=== PATIENT | female | born 1945 | race Caucasian/White ===

== ENCOUNTER → 2019-06-12 09:32 | Outpatient (CLI) | payer OTHER, SELFPAY ==
[2019-06-12 12:17] LABS: Hematocrit 32.5 % (37-47); Hemoglobin 9.9 g/dL (12.0-15.0); Mean Corp Hgb Conc 30.5 g/dL (32-36); Mean Corpuscular Volume 85.3 fL (81-99); Mean Platelet Vol. 10.5 fl (6.2-12.0); Platelet Count 338 K/mm3 (150-450); RBC Distribution Width CV 15.2 % (11.6-14.6); RBC Distribution Width SD 47.4 fl (35.1-43.9); Red Blood Count 3.81 M/mm3 (4.2-5.4); White Blood Count 6.1 K/mm3 (4.4-11.0)
[2019-06-12 12:29] LABS: Ferritin 7 ng/mL (8-252); T4 Free Direct 0.98 ng/dL (0.76-1.46); Thyroid Stim Hormone (TSH) 2.31 uIU/mL (0.358-3.74)
== END ==
PROVIDERS: Family Provider Family Medicine; PCP Family Medicine; Referring Provider Dermatology; Visit Provider Dermatology
DX: L65.0 Telogen effluvium (principal); L73.8 Other specified follicular disorders
CPT/HCPCS: 36415; 82728; 84439; 84443; 85027

== ENCOUNTER → 2020-11-30 11:39 | Outpatient (CLI) | payer MEDICARE, MEDICAID, SELFPAY ==
--- NOTE | 2020-11-30 11:49 | BI_ITS ---
MAMMOGRAPHY - BILATERAL SCREENING 3-D TOMOSYNTHESIS REASON FOR EXAM: Female, 75 years old. SCREENING PERTINENT HISTORY: No significant family history. TECHNIQUE: 2-D mammograms and 3-D Tomosynthesis of the breast (s) were performed. CAD was performed. COMPARISON: 2018 FINDINGS: The breast composition is composed of scattered fibroglandular density. Scattered benign calcifications are seen. No dense spiculated masses or suspicious microcalcifications are identified. No architectural distortion is identified. There is no skin thickening or retraction. There has been no significant change since the prior study. BI/SCRN MAMM (CAD)W/DAYANNA BILAT IMPRESSION: No mammographic signs of malignancy. Routine yearly mammograms recommended. ASSESSMENT CATEGORY: BIRADS Category 1: Negative. A letter regarding these results will be sent to the patient by the facility within 30 days. FOLLOW UP RECOMMENDATION: Yearly follow up mammogram recommended. (A) Approximately 10% of breast cancers are not detected by mammography. A normal mammogram should not delay biopsy of a clinically suspicious abnormality. Electronically Signed: Eladio Cordon MD at 12:59 EDT , Service support ,
== END ==
PROVIDERS: PCP Family Medicine; Referring Provider Internal Medicine; Visit Provider Internal Medicine
DX: Z12.31 Encounter for screening mammogram for malignant neoplasm of breast (principal)
CPT/HCPCS: 77063; 77067

== ENCOUNTER → 2021-03-23 05:00 | Outpatient (REF) | payer MEDICARE, MEDICAID, SELFPAY ==
[2021-03-23 07:43] LABS: Anion Gap 4 (5-15); BUN 17 mg/dL (7-18); BUN/Creat Ratio 25.7 RATIO (10-20); Calcium,Total 10.8 mg/dL (8.5-10.1); Chloride 110 mmol/L (98-107); Creatinine, Serum 0.66 mg/dL (0.55-1.02); EST Glomerular Filtration Rate 93 mL/min (>60); Est Glom Filt Rate - Afr Amer 112 mL/min (>60); Glucose 113 mg/dL (74-106); Potassium 4.1 mmol/L (3.5-5.1); Sodium Level 142 mmol/L (136-145)
== END ==
LOC: OLS.SWAL 05:00
PROVIDERS: PCP Family Medicine; Visit Provider Internal Medicine
DX: Z79.899 Other long term (current) drug therapy (principal)
CPT/HCPCS: 36415; 80048

== ENCOUNTER → 2021-04-01 05:00 | Outpatient (REF) | payer MEDICARE, MEDICAID, SELFPAY ==
[2021-04-01 07:55] LABS: Anion Gap 5 (5-15); BUN 29 mg/dL (7-18); BUN/Creat Ratio 27.4 RATIO (10-20); Calcium,Total 11.1 mg/dL (8.5-10.1); Chloride 106 mmol/L (98-107); Creatinine, Serum 1.06 mg/dL (0.55-1.02); EST Glomerular Filtration Rate 54 mL/min (>60); Est Glom Filt Rate - Afr Amer 65 mL/min (>60); Glucose 113 mg/dL (74-106); Potassium 3.9 mmol/L (3.5-5.1); Sodium Level 140 mmol/L (136-145)
== END ==
LOC: OLS.SWAL 05:00
PROVIDERS: PCP Family Medicine; Referring Provider Internal Medicine; Visit Provider Internal Medicine
DX: R60.9 Edema, unspecified (principal)
CPT/HCPCS: 36415; 80048

== ENCOUNTER → 2021-04-08 05:00 | Outpatient (REF) | payer MEDICARE, OTHER, SELFPAY ==
[2021-04-08 08:47] LABS: Anion Gap 2 (5-15); BUN 24 mg/dL (7-18); BUN/Creat Ratio 23.5 RATIO (10-20); Calcium,Total 10.9 mg/dL (8.5-10.1); Chloride 109 mmol/L (98-107); Creatinine, Serum 1.02 mg/dL (0.55-1.02); EST Glomerular Filtration Rate 56 mL/min (>60); Est Glom Filt Rate - Afr Amer 68 mL/min (>60); Glucose 98 mg/dL (74-106); Potassium 4.4 mmol/L (3.5-5.1); Sodium Level 142 mmol/L (136-145)
== END ==
LOC: OLS.SWAL 05:00
PROVIDERS: PCP Family Medicine; Visit Provider Internal Medicine
DX: Z79.899 Other long term (current) drug therapy (principal)
CPT/HCPCS: 36415; 80048

== ENCOUNTER → 2021-05-24 05:00 | Outpatient (REF) | payer MEDICARE, MEDICAID, SELFPAY ==
[2021-05-24 08:28] LABS: Mucous, Urine 0 SEEN /hpf (<or=2+); Red Blood Cells-Urine 0 SEEN /hpf (0-5)
[2021-05-24 08:45] LABS: Hematocrit 43.5 % (37-47); Hemoglobin 13.7 g/dL (12.0-15.0); Mean Corp Hgb Conc 31.5 g/dL (32-36); Mean Corpuscular Hgb 29.8 pg (27.0-32.0); Mean Corpuscular Volume 94.8 fL (81-99); Mean Platelet Vol. 10.8 fl (6.2-12.0); Platelet Count 281 K/mm3 (150-450); RBC Distribution Width CV 14.9 % (11.6-14.6); RBC Distribution Width SD 51.7 fl (35.1-43.9); Red Blood Count 4.59 M/mm3 (4.2-5.4); White Blood Count 5.7 K/mm3 (4.4-11.0)
[2021-05-24 08:48] LABS: Color, Urine Yellow (Yellow); Glucose, Dipstick Normal (Normal); Ketone-Dipstick Negative (Negative); Leukocyte Esterase-Dipstick 500 /ul (Negative); Nitrite-Dipstick Negative (Negative); Occult Blood-Urine Negative /ul (Negative); Protein-Dipstick Negative (Negative); Urine Bilirubin Dipstick Negative (Negative); Urine Clarity Sl. Cloudy (Clear); Urine Urobilinogen Normal (Normal)
[2021-05-24 08:54] LABS: Bacteria 1+ /hpf (None Seen); Squamous Epithelial Cells - UA 0-5 SEEN /hpf (5-10); White Blood Cells 5-10 SEEN /hpf (0-5)
[2021-05-24 09:08] LABS: Anion Gap 11 (5-15); BUN 31 mg/dL (7-18); BUN/Creat Ratio 26.5 RATIO (10-20); Calcium,Total 10.8 mg/dL (8.5-10.1); Chloride 104 mmol/L (98-107); Creatinine, Serum 1.17 mg/dL (0.55-1.02); EST Glomerular Filtration Rate 48 mL/min (>60); Est Glom Filt Rate - Afr Amer 58 mL/min (>60); Glucose 109 mg/dL (74-106); Potassium 3.9 mmol/L (3.5-5.1); Sodium Level 142 mmol/L (136-145)
== END ==
LOC: OLS.SWAL 05:00
PROVIDERS: PCP Family Medicine; Visit Provider Internal Medicine
DX: I10 Essential (primary) hypertension (principal); E78.5 Hyperlipidemia, unspecified; D64.9 Anemia, unspecified; R46.89 Other symptoms and signs involving appearance and behavior; Z79.899 Other long term (current) drug therapy
CPT/HCPCS: 36415; 80048; 81001; 85027; 87086; 87088

== ENCOUNTER → 2021-06-15 05:00 | Outpatient (REF) | payer MEDICARE, OTHER, SELFPAY ==
[2021-06-15 09:05] LABS: Uric Acid 8.2 mg/dL (2.6-6.0)
== END ==
LOC: OLS.SWAL 05:00
PROVIDERS: PCP Family Medicine; Visit Provider Internal Medicine
DX: M10.9 Gout, unspecified (principal)
CPT/HCPCS: 36415; 84550

== ENCOUNTER → 2021-07-05 05:00 | Outpatient (REF) | payer MEDICARE, OTHER, SELFPAY ==
[2021-07-05 07:23] LABS: Hematocrit 40.2 % (37-47); Hemoglobin 12.7 g/dL (12.0-15.0); Mean Corp Hgb Conc 31.6 g/dL (32-36); Mean Corpuscular Hgb 30.1 pg (27.0-32.0); Mean Corpuscular Volume 95.3 fL (81-99); Mean Platelet Vol. 10.3 fl (6.2-12.0); Platelet Count 329 K/mm3 (150-450); RBC Distribution Width CV 14.2 % (11.6-14.6); RBC Distribution Width SD 49.5 fl (35.1-43.9); Red Blood Count 4.22 M/mm3 (4.2-5.4); White Blood Count 9.4 K/mm3 (4.4-11.0)
[2021-07-05 07:42] LABS: ALB/GLOB Ratio 0.7 RATIO (0.9-2.4); AST(SGOT) 14 U/L (15-37); Alanine Aminotransfer ALT/SGPT 20 U/L (13-56); Albumin, Serum 3.1 g/dL (3.2-5.0); Alkaline Phosphatase 41 U/L (45-117); Anion Gap 5 (5-15); BUN 32 mg/dL (7-18); BUN/Creat Ratio 25.4 RATIO (10-20); Bilirubin, Direct 0.21 mg/dL (0.00-0.30); Calcium,Total 10.9 mg/dL (8.5-10.1); Chloride 109 mmol/L (98-107); Creatinine, Serum 1.26 mg/dL (0.55-1.02); EST Glomerular Filtration Rate 44 mL/min (>60); Est Glom Filt Rate - Afr Amer 53 mL/min (>60); Globulin 4.6 g/dL (2.2-4.2); Glucose 87 mg/dL (74-106); Potassium 4.2 mmol/L (3.5-5.1); Protein, Total 7.7 g/dL (6.4-8.2); Sodium Level 139 mmol/L (136-145)
== END ==
LOC: OLS.SWAL 05:00
PROVIDERS: PCP Family Medicine; Visit Provider Internal Medicine
DX: U07.1 COVID-19 (principal)
CPT/HCPCS: 36415; 80053; 82248; 85027; 86140

== ENCOUNTER → 2021-07-19 05:00 | Outpatient (REF) | payer MEDICARE, MEDICAID, SELFPAY ==
[2021-07-19 10:03] LABS: Anion Gap 4 (5-15); BUN 28 mg/dL (7-18); BUN/Creat Ratio 23.3 RATIO (10-20); Calcium,Total 11.1 mg/dL (8.5-10.1); Chloride 109 mmol/L (98-107); Cholesterol 151 mg/dL (200); EST Glomerular Filtration Rate 47 mL/min (>60); Est Glom Filt Rate - Afr Amer 56 mL/min (>60); Glucose 108 mg/dL (74-106); High Density Lipoprotein 65 mg/dL; Magnesium 2.7 mg/dL (1.6-2.6); Potassium 3.9 mmol/L (3.5-5.1); Sodium Level 141 mmol/L (136-145); Triglycerides 109 mg/dL; Very Low Density Lipoprotein 22 mg/dL (5-40)
== END ==
LOC: OLS.SWAL 05:00
PROVIDERS: PCP Family Medicine; Visit Provider Internal Medicine
DX: I10 Essential (primary) hypertension (principal); E78.5 Hyperlipidemia, unspecified
CPT/HCPCS: 36415; 80048; 80061; 83735

== ENCOUNTER → 2021-07-25 05:00 | Outpatient (REF) | payer MEDICARE, MEDICAID, SELFPAY | LOC: OLS.SWAL 05:00 | PROVIDERS: PCP Family Medicine; Visit Provider Internal Medicine | DX: E78.5 Hyperlipidemia, unspecified (principal); I10 Essential (primary) hypertension | CPT/HCPCS: 36415; 82330; 83970 ==

== ENCOUNTER 2021-08-07 13:45 | Emergency (ER) | payer MEDICARE, MEDICAID, SELFPAY ==
[2021-08-07] VITALS (7 sets, daily range): BP systolic 124–147; BP diastolic 59–88; PULSE 71–90; RESP 16–27; TEMP 36.1–36.6; O2SAT 93–95; BMI 36.0
--- NOTE | 2021-08-07 14:29 | RAD_ITS ---
INDICATION: fall EXAMINATION/TECHNIQUE: X-RAY - RIGHT XR Shoulder Min 2 Views 2 VIEWS COMPARISON: Views of the humerus on the same date. FINDINGS: SOFT TISSUES: No soft tissue swelling or gas. No radiopaque foreign body. BONES/JOINTS: There is an anterior dislocation glenohumeral joint, no fractures noted. There is mild deformity of the greater tubercle which may represent a Hill-Sachs deformity. Normal appearance of the AC joint and visualized RIGHT rib cage. RAD/Shoulder min 2 Views IMPRESSION: Anterior dislocation of glenohumeral joint, Hill-Sachs deformity is suspected. No other focal bony abnormality noted. Electronically Signed: Ganesh Gramajo MD at 16:07 EST Tel , Service support ,
--- NOTE | 2021-08-07 14:29 | RAD_ITS ---
INDICATION: injury EXAMINATION/TECHNIQUE: X-RAY - RIGHT XR Humerus Min 2 Views 2 VIEWS COMPARISON: None. FINDINGS: SOFT TISSUES: No soft tissue swelling or gas. No radiopaque foreign body. BONES/JOINTS: There is an anterior dislocation of the glenohumeral joint. No bony fractures noted. Slight rib cage is intact. RAD/Humerus min 2 Views IMPRESSION: Anterior glenohumeral dislocation without evidence of fracture. Remaining humerus has normal appearance. Electronically Signed: Ganesh Grmaajo MD at 16:05 EST Tel , Service support ,
--- NOTE | 2021-08-07 14:29 | CT_ITS ---
STUDY: CT BRAIN WITHOUT CONTRAST REASON FOR EXAM: Female, 76 years old. fall RADIATION DOSAGE (If Supplied By Facility): CTDIvol = ( 44.99 ) mGy, DLP = ( 796.11 ) mGycm TECHNIQUE: Transaxial CT imaging of the brain was performed without administration of intravenous contrast material. Individualized dose optimization techniques were used for this CT. COMPARISON: None. FINDINGS: There is cerebral atrophy with widening of the extra-axial spaces and ventricular dilatation. There are areas of decreased attenuation within the white matter tracts of the supratentorial brain, consistent with microvascular disease changes. There is no intracranial hemorrhage. There are no findings of an acute ischemic infarction. Normal soft tissue structures. Normal visualized paranasal sinuses. CT/Brain/Head without Contrast IMPRESSION: Chronic involutional changes of the brain. Electronically Signed: Theresa Londono MD at 15:11 EST Tel , Service support ,
--- NOTE | 2021-08-07 14:31 | EDS_ITS ---
HPI History of Present Illness Chief Complaint: Fall Detail of Chief Complaint: With injury to right upper arm Informant: patient Narrative Narrative: Patient presents to the emergency department via EMS from assisted living facility after sustaining a fall today. Patient states that she normally walks with a walker. She is not exactly sure if she tripped or what happened. Patient injured her right arm. She is not sure if she hit her head. There was no loss of consciousness. Patient denies neck pain or chest pain or abdominal pain. She denies recent illness. Patient is right-hand dominant. [facility] Medical History (Updated 08/07/21 @ 16:[address] Isha Dunlap, DO) Depression GERD (gastroesophageal reflux disease) Hyperlipidemia Hypertension Home Medications alendronate 70 mg PO QWEEK 08/07/21 [History Last Taken Unknown] allopurinol 200 mg PO DAILY 08/07/21 [History Last Taken Unknown] amlodipine 5 mg PO BID 08/07/21 [History Last Taken Unknown] bupropion HCl 200 mg PO BID 08/07/21 [History Last Taken Unknown] clonazepam 0.5 mg PO Q8H PRN 08/07/21 [History Last Taken Unknown] ferrous sulfate mg PO 08/07/21 [History Last Taken Unknown] fluticasone propionate 1 spray INTRANASAL DAILY 08/07/21 [History Last Taken Unknown] loratadine 10 mg PO DAILY 08/07/21 [History Last Taken Unknown] losartan 100 mg PO DAILY 08/07/21 [History Last Taken Unknown] omeprazole 20 mg PO DAILY 08/07/21 [History Last Taken Unknown] potassium chloride [Klor-Con M10] 10 meq PO DAILY 08/07/21 [History Last Taken Unknown] pravastatin 20 mg PO QHS 08/07/21 [History Last Taken Unknown] rivaroxaban [Xarelto] 20 mg PO QHS 08/07/21 [History Last Taken Unknown] sertraline 100 mg PO DAILY 08/07/21 [History Last Taken Unknown] torsemide 40 mg PO BID 08/07/21 [History Last Taken Unknown] Allergy/AdvReac Type Severity Reaction Status Date / Time No Known Allergies Allergy Verified 08/07/21 13:52 Social History Smoking Status: Former smoker ROS ROS ED ROS Narrative Fall Constitutional Constitutional ED: Reports systems reviewed and no addt'l complaints, except as documented; Denies body ache(s), change in weight or chills Eyes Eyes: Denies acute decrease in peripheral vision, change in vision, double vision or loss of vision ENT ENT ED: Reports none; Denies ear pain, lip swelling, loss taste/smell, neck pain, otalgia or sore throat Cardiovascular Cardiovascular: Reports none; Denies abdominal pain, chest pain with activity, leg edema, lightheadedness, palpitations, rapid heart rate or syncope Respiratory/Chest Respiratory/Chest: Reports none; Denies change in mental status, dry cough, dyspnea, hemoptysis, shortness of breath at rest or shortness of breath with exertion Gastrointestinal Gastrointestinal: Reports none; Denies abdominal pain, change in stool character, diarrhea, hematemesis, hematochezia, melena, rectal bleeding or vomiting Genitourinary Genitourinary ED: Reports none; Denies abdominal discomfort, anuria, dysuria, genital pain or polyuria Musculoskeletal Musculoskeletal: Reports none and other Details: Shoulder pain/injury ; Denies arthralgias, back pain, difficulty walking, extremity pain, muscle weakness or myalgias Integumentary Reports none; Denies abscess or rash Neurologic Neurologic: Reports none; Denies abnormal gait, confusion, focal weakness, frequent falls, headache(s), loss of vision, numbness, paresthesias, radicular pain, vertigo or weakness Psychiatric Psychiatric: Reports systems reviewed and no addt'l complaints, except as docum ented and none; Denies behavioral changes, confusion, difficulty concentrating, hallucinations, suicidal ideation, tactile hallucinations or visual hallucinations Endocrine Endocrinology: Denies none, cold intolerance, excessive sweating, fatigue or heat intolerance Hematologic/Lymphatic Hematologic/Lymphatic: Reports none; Denies anemia, easy bleeding or easy bruising Allergic/Immunologic Allergic/Immunologic ED: Denies as per HPI, none, lip swelling, mouth swelling, throat swelling, tongue swelling or hives EXAM Physical Exam Const Vital Signs: 08/07/21 13:47 08/07/21 16:29 08/07/21 16:41 Temperature 98 F Temperature Source Oral Pulse Rate 71 85 Pulse Rate [1 (Initial Baseline)] 87 Pulse Rate [5] 86 Respiratory Rate 18 20 H Respiratory Rate [1 (Initial Baseline)] 16 Respiratory Rate [5] 27 H Blood Pressure 139/62 H 134/88 H Blood Pressure [1 (Initial Baseline)] 147/60 H Blood Pressure [5] 124/59 H Blood Pressure Mean 87 Pulse Ox 94 94 Oxygen Delivery Method Room Air Nasal Cannula Oxygen Delivery Method [1 (Initial Baseline)] Room Air Oxygen Delivery Method [5] Nasal Cannula Oxygen Flow Rate (L/min) 2 08/07/21 16:46 08/07/21 16:52 Temperature Temperature Source Pulse Rate 85 87 Pulse Rate [1 (Initial Baseline)] Pulse Rate [5] Respiratory Rate 24 H 24 H Respiratory Rate [1 (Initial Baseline)] Respiratory Rate [5] Blood Pressure 137/65 H 139/65 H Blood Pressure [1 (Initial Baseline)] Blood Pressure [5] Blood Pressure Mean Pulse Ox 94 93 Oxygen Delivery Method Nasal Cannula Nasal Cannula Oxygen Delivery Method [1 (Initial Baseline)] Oxygen Delivery Method [5] Oxygen Flow Rate (L/min) 2 2 Positive well nourished and well developed General Appearance ED: well developed and NAD HEENT Reports TM's clear and moist mucous membranes HEENT Narrative: No external evidence of trauma to her head normocephalic and atraumatic; Negative for trauma or tenderness Tympanic Membrane ED: Yes TM's clear Eyes PERRL and EOMs intact bilaterally General Eye ED: Negative for pale conjunctiva or scleral icterus Neck no lymphadenopathy, supple and no JVD General: Negative for tenderness Chest Wall inspection of chest normal and palpation of chest normal Chest: Negative for tenderness Resp normal respiratory effort and clear to auscultation bilaterally Effort and Inspection: Negative for respiratory distress or pain with movement Auscultation: Negative for rhonchi, wheezes or diminished lung sounds Cardio regular rate, regular rhythm, S1 normal heart sound, S2 normal heart sound and no murmurs Peripheral Pulses: pulses 2+ throughout GI normal to inspection, nondistended, normoactive bowel sounds, soft to palpation, non-tender, non-distended and no masses Back/Spine no CVA tenderness and no thoracic nor lumbar tenderness Extremity Extremity Narrative: For motion of the right shoulder reveals diffuse tenderness at the glenohumeral joint with suspected sulcus sign. She has limited range of motion at the glenohumeral joint secondary to pain. She is neurovascular intact distally. No pain at the elbow. General Extremety ED: Negative for edema General Extremity: Negative for edema Neuro oriented x3, CN's II-XII intact bilaterally, no sensory deficits noted and gait normal Sensorium / Orientation: awake, alert, oriented to person, oriented to place and oriented to time Motor Exam: strength 5/5 throughout and strength abnormal Psych mental status grossly normal Skin no rashes or lesions noted and no wounds PROC Procedures Other Procedures Procedure(s): Right shoulder procedural sedation for closed reduction-patient was given propofol total of 130 mg IV. Initially a timeout was performed. Using gentle traction I was able to easily reduce her shoulder. Patient was placed in a sling. Patient tolerated procedure well. MDM MDM MDM Narrative Medical decision making narrative: Post reduction x-rays were obtained and showed good reduction of glenohumeral joint on the right. No fractures noted. Patient will be placed in a sling. She is to follow-up with orthopedics occupational medicine officer within next 3 to 5 days. Radiography Diagnostic Testing: Clinical Impression(s) from Imaging Studies Brain CT 08/07/21 14:29 IMPRESSION: Chronic involutional changes of the brain. Electronically Signed: Theresa Londono MD at 15:11 EST Tel , Service support , Humerus X-Ray 08/07/21 14:29 IMPRESSION: Anterior glenohumeral dislocation without evidence of fracture. Remaining humerus has normal appearance. Electronically Signed: Ganesh Gramajo MD at 16:05 EST Tel , Service support , Shoulder X-Ray 08/07/21 14:29 IMPRESSION: Anterior dislocation of glenohumeral joint, Hill-Sachs deformity is suspected. No other focal bony abnormality noted. Electronically Signed: Ganesh Gramajo MD at 16:07 EST Tel , Service support , Shoulder X-Ray 08/07/21 16:44 IMPRESSION: 1. Interval closed reduction with normal alignment maintained. 2. Hill-Sachs deformity suspected. 3. Subacromial space narrowing also noted which can contribute to rotator cuff impingement. Electronically Signed: Ganesh Gramajo MD at 17:02 EST Tel , Service support , 2 view x-rays of right shoulder obtained showed an anterior shoulder dislocation on my interpretation. Radiology in agreement. 2 view x-rays of right humerus also obtained interpreted by myself as no acute fractures but did show a right anterior shoulder dislocation. Radiology in agreement as well. 2 view post reduction x-rays obtained of the right shoulder showed good reduction of the glenohumeral joint on my interpretation. Radiologist agreed that there was good reduction however he thought there may be some evidence of rotator cuff im pingement and question Hill-Sachs deformity. Discharge Plan Triage Chief Complaint: Fall ED Provider: Isha Dunlap Dx/Rx/DC Orders Clinical Impression: Fall, Anterior dislocation of right shoulder Instructions: ED Dislocation: Shoulder (Reduced), ED Mechanical Fall, ED Sling Prescriptions: No Action torsemide 20 mg tablet 40 mg PO BID RF: 0 alendronate 70 mg tablet 70 mg PO QWEEK RF: 0 clonazepam 0.5 mg tablet 0.5 mg PO Q8H PRN (Reason: Anxiety) RF: 0 sertraline 100 mg tablet 100 mg PO DAILY RF: 0 amlodipine 5 mg tablet 5 mg PO BID RF: 0 allopurinol 100 mg tablet 200 mg PO DAILY RF: 0 omeprazole 20 mg capsule,delayed release(DR/EC) 20 mg PO DAILY RF: 0 pravastatin 20 mg tablet 20 mg PO QHS RF: 0 ferrous sulfate 325 mg (65 mg iron) tablet,delayed release (DR/EC) PO RF: 0 losartan 100 mg tablet 100 mg PO DAILY RF: 0 fluticasone propionate 50 mcg/actuation spray,suspension 1 spray INTRANASAL DAILY RF: 0 loratadine 10 mg tablet 10 mg PO DAILY RF: 0 bupropion HCl 200 mg tablet sustained-release 12 hr 200 mg PO BID RF: 0 potassium chloride [Klor-Con M10] 10 mEq tablet,ER particles/crystals 10 meq PO DAILY RF: 0 Xarelto 20 mg tablet 20 mg PO QHS RF: 0 Primary Care Provider: Luan King Referrals: Larry Currie MD [STAFF PHYSICIAN] - 3-5 Days Luan King MD [Primary Care Provider] - Disposition Disposition: Home, Self Care
--- NOTE | 2021-08-07 16:44 | RAD_ITS ---
INDICATION: post reduction EXAMINATION/TECHNIQUE: X-RAY - RIGHT XR Shoulder Min 2 Views 3 VIEWS COMPARISON: Earlier same day FINDINGS: SOFT TISSUES: No soft tissue swelling or gas. No radiopaque foreign body. BONES/JOINTS: Interval closed reduction with normal alignment noted. Minimal deformity of the humeral head suspicious of Hill-Sachs deformity. No other focal bony abnormalities noted. AC joint has normal appearance. There is narrowing the subacromial space. RAD/Shoulder min 2 Views IMPRESSION: 1. Interval closed reduction with normal alignment maintained. 2. Hill-Sachs deformity suspected. 3. Subacromial space narrowing also noted which can contribute to rotator cuff impingement. Electronically Signed: Ganesh Gramajo MD at 17:02 EST Tel , Service support ,
[2021-08-07] MEDS: Propofol 200 MG/20 ML Vial IV BOLUS (16:50)
--- NOTE | 2021-08-07 18:03 | ED.RN ---
Message left on Mahesh Herrera nurse line re: pt dx/treatment and that pt was on her way back to facility.
== END 2021-08-07 18:08 | disposition home or self-care (01) ==
PROVIDERS: Emergency Provider Emergency Medicine; PCP Family Medicine
DX: S43.014A Anterior dislocation of right humerus, initial encounter (principal); W19.XXXA Unspecified fall, initial encounter; Y92.9 Unspecified place or not applicable; Y99.9 Unspecified external cause status; F32.A Depression, unspecified; K21.9 Gastro-esophageal reflux disease without esophagitis; E78.5 Hyperlipidemia, unspecified; I10 Essential (primary) hypertension; Z87.891 Personal history of nicotine dependence; Z79.01 Long term (current) use of anticoagulants; Z79.899 Other long term (current) drug therapy
CPT/HCPCS: 70450; 73030; 73060; 99285; J7030; A4216

== ENCOUNTER → 2021-08-30 07:50 | Outpatient (REF) | payer MEDICARE, MEDICAID, SELFPAY ==
[2021-08-30 09:30] LABS: Anion Gap 8 (5-15); BUN 34 mg/dL (7-18); BUN/Creat Ratio 31.8 RATIO (10-20); Calcium,Total 10.6 mg/dL (8.5-10.1); Chloride 105 mmol/L (98-107); Creatinine, Serum 1.07 mg/dL (0.55-1.02); EST Glomerular Filtration Rate 53 mL/min (>60); Est Glom Filt Rate - Afr Amer 64 mL/min (>60); Glucose 100 mg/dL (74-106); Magnesium 2.7 mg/dL (1.6-2.6); Potassium 3.7 mmol/L (3.5-5.1); Sodium Level 141 mmol/L (136-145)
== END ==
LOC: OLS.SW300 07:50
PROVIDERS: PCP Family Medicine; Visit Provider Internal Medicine
DX: I10 Essential (primary) hypertension (principal); D64.9 Anemia, unspecified
CPT/HCPCS: 36415; 80048; 83735

== ENCOUNTER → 2021-08-31 05:00 | Outpatient (REF) | payer MEDICARE, MEDICAID, SELFPAY ==
[2021-08-31 10:06] LABS: PTHIN 84.8 pg/mL (18.4-80.1)
== END ==
LOC: OLS.SW300 05:00
PROVIDERS: PCP Family Medicine; Visit Provider Internal Medicine
DX: I10 Essential (primary) hypertension (principal); E78.5 Hyperlipidemia, unspecified
CPT/HCPCS: 36415; 82330; 83970

== ENCOUNTER → 2021-09-26 04:00 | Outpatient (REF) | payer MEDICARE, MEDICAID, SELFPAY ==
[2021-09-26 09:10] LABS: Absolute Neutrophil Count 3.3 X10^3/uL (2.0-7.7); Basophil# 0.07 X10^3/uL; Basophil% 1.2 % (0-1); Eosinophil# 0.39 X10^3/uL; Eosinophils% 6.7 % (0-5); Hematocrit 39.6 % (37-47); Hemoglobin 12.3 g/dL (12.0-15.0); Mean Corp Hgb Conc 31.1 g/dL (32-36); Mean Corpuscular Hgb 30.2 pg (27.0-32.0); Mean Corpuscular Volume 97.3 fL (81-99); Mean Platelet Vol. 10.7 fl (6.2-12.0); Monocyte# 0.61 X10^3/uL; Monocyte% 10.4 % (0-10); NRBC Flagged by Analyzer 0 % (0-5); Neutrophil # 3.34 X10^3/uL (2.7-7.7); Neutrophil % 57.2 % (47-70); Platelet Count 253 K/mm3 (150-450); RBC Distribution Width SD 53.7 fl (35.1-43.9); Red Blood Count 4.07 M/mm3 (4.2-5.4); White Blood Count 5.8 K/mm3 (4.4-11.0)
[2021-09-26 09:32] LABS: ALB/GLOB Ratio 0.9 RATIO (0.9-2.4); AST(SGOT) 14 U/L (15-37); Alanine Aminotransfer ALT/SGPT 17 U/L (13-56); Albumin, Serum 3.3 g/dL (3.2-5.0); Alkaline Phosphatase 55 U/L (45-117); Anion Gap 6 (5-15); BUN 33 mg/dL (7-18); BUN/Creat Ratio 29.7 RATIO (10-20); Calcium,Total 10.3 mg/dL (8.5-10.1); Chloride 106 mmol/L (98-107); Creatinine, Serum 1.11 mg/dL (0.55-1.02); EST Glomerular Filtration Rate 51 mL/min (>60); Est Glom Filt Rate - Afr Amer 62 mL/min (>60); Globulin 3.8 g/dL (2.2-4.2); Glucose 116 mg/dL (74-106); Magnesium 2.5 mg/dL (1.6-2.6); Potassium 3.6 mmol/L (3.5-5.1); Protein, Total 7.1 g/dL (6.4-8.2); Sodium Level 139 mmol/L (136-145)
== END ==
LOC: OLS.SWAL 04:00
PROVIDERS: PCP Family Medicine; Referring Provider Internal Medicine; Visit Provider Internal Medicine
DX: I10 Essential (primary) hypertension (principal)
CPT/HCPCS: 36415; 80053; 83735; 85025

== ENCOUNTER 2021-09-26 19:25 | Emergency (ER) | payer MEDICARE, MEDICAID, SELFPAY ==
[2021-09-26 19:28] VITALS: BP 138/56; PULSE 93; RESP 20; TEMP 37; O2SAT 95
--- NOTE | 2021-09-26 19:40 | CT_ITS ---
STUDY: CT BRAIN WITHOUT CONTRAST REASON FOR EXAM: Female, 76 years old. Fall, hit head on floor, on blood thinners. Pain head injury Individualized dose optimization techniques were used for this CT. TECHNIQUE: Transaxial CT imaging of the brain was performed without administration of intravenous contrast material. COMPARISON: 08.07.21 FINDINGS: There are calcifications around the carotid artery. These are noted in the cavernous carotid arteries. Degenerative changes of the mandibular condyles. Normal calvarium. There is no underlying fracture. Soft tissue swelling and laceration of the scalp- posteriorly. There is mild cerebral atrophy with widening of the extra-axial spaces and ventricular dilatation. There are areas of decreased attenuation within the white matter tracts of the supratentorial brain, consistent with microvascular disease changes. Normal basal ganglia and thalami. Normal brainstem. There is mild cerebellar atrophy. There is no intracranial hemorrhage. There are no findings of an acute ischemic infarction. Normal visualized paranasal sinuses. ASPECTS Score for Acute Strokes: 06/05 CT/Brain/Head without Contrast IMPRESSION: There is no underlying fracture. Soft tissue swelling and laceration of the scalp- posteriorly. Chronic involutional changes of the brain. Electronically Signed: Sudhakar Paul MD at 20:10 EST ,
--- NOTE | 2021-09-26 19:40 | CT_ITS ---
EXAM: CT SPINE - CERVICAL WITHOUT IV REASON FOR EXAM: Female, 76 years old. NECK PAIN falls Individualized dose optimization techniques were used for this CT. TECHNIQUE: Multiplanar images were obtained of the cervical spine. IV contrast was not utilized. COMPARISON: None. FINDINGS: The vertebral bodies do maintain their height. The odontoid process is intact. There is no anterolisthesis or fracture. No pre-vertebral soft tissue swelling is seen. The intravertebral disc height is lost. There are scattered lymph nodes in the neck. There are degenerative changes of the osseous structures. There is bilateral facet arthropathy. There are scattered levels of foraminal stenosis. There are vascular calcifications. CT/Spine Cervical without Contras IMPRESSION: Degenerative changes of the cervical spine. There are no acute findings. Electronically Signed: Sudhakar Paul MD at 20:29 EST ,
--- NOTE | 2021-09-26 21:00 | EDS_ITS ---
HPI HPI - Fall History of Present Illness Chief Complaint: Head Injury Narrative Narrative: Patient presenting with superficial abrasion to the vertex of her head. She is on Xarelto. She states that he is chronically dizzy and has no change in this. She states that she fell after standing up too fast which is typical for her. She does not usually fall. She denies injury elsewhere. She has no headache or visual changes. Denies nausea and vomiting. Patient has no urinary complaints. She denies fever or chills. Denies chest pain, palpitations, shortness of breath. [facility] Medical History Depression DVT (deep venous thrombosis) GERD (gastroesophageal reflux disease) Hyperlipidemia Hypertension Home Medications alendronate 70 mg PO QWEEK 08/07/21 [History Last Taken Unknown] allopurinol 200 mg PO DAILY 08/07/21 [History Last Taken Unknown] amlodipine 5 mg PO BID 08/07/21 [History Last Taken Unknown] bupropion HCl 200 mg PO BID 08/07/21 [History Last Taken Unknown] clonazepam 0.5 mg PO Q12H PRN PRN 08/07/21 [History Last Taken Unknown] ferrous sulfate mg PO 08/07/21 [History Last Taken Unknown] fluticasone propionate 1 spray INTRANASAL DAILY 08/07/21 [History Last Taken Unknown] loratadine 10 mg PO DAILY 08/07/21 [History Last Taken Unknown] losartan 100 mg PO DAILY 08/07/21 [History Last Taken Unknown] omeprazole 20 mg PO DAILY 08/07/21 [History Last Taken Unknown] potassium chloride [Klor-Con M10] 10 meq PO DAILY 08/07/21 [History Last Taken Unknown] pravastatin 20 mg PO QHS 08/07/21 [History Last Taken Unknown] rivaroxaban [Xarelto] 20 mg PO QHS 08/07/21 [History Last Taken Unknown] sertraline 100 mg PO DAILY 08/07/21 [History Last Taken Unknown] torsemide 40 mg PO BID 08/07/21 [History Last Taken Unknown] Allergy/AdvReac Type Severity Reaction Status Date / Time No Known Allergies Allergy Verified 08/07/21 13:52 Social History Smoking Status: Former smoker ROS ROS ED Constitutional Constitutional ED: Denies fever(s) Eyes Eyes: Denies blurry vision or change in vision ENT ENT ED: Denies rhinorrhea or sore throat Cardiovascular Cardiovascular: Denies chest pain or palpitations Respiratory/Chest Respiratory/Chest: Denies cough or dyspnea Gastrointestinal Gastrointestinal: Denies abdominal pain or nausea Genitourinary Genitourinary ED: Denies dysuria or hematuria Musculoskeletal Musculoskeletal: Denies arthralgias or myalgias Integumentary Reports Abrasions Neurologic Neurologic: Denies headache(s) or weakness Psychiatric Psychiatric: Denies anxiety or depression EXAM Physical Exam Const Vital Signs: 09/26/21 19:28 09/26/21 19:30 Temperature 98.6 F Temperature Source Temporal Pulse Rate 93 Respiratory Rate 20 H Respiratory Effort Normal Respiratory Depth Normal Respiratory Pattern Normal Blood Pressure 138/56 H Blood Pressure Mean 83 Pulse Ox 95 Oxygen Delivery Method Room Air Positive well nourished General Appearance ED: NAD HEENT Reports normocephalic HEENT Narrative: 1 cm superficial laceration to the vertex of the scalp. No skull induration or deformity. No active bleeding. Eyes PERRL and EOMs intact bilaterally Resp normal respiratory effort and clear to auscultation bilaterally Cardio regular rate and regular rhythm Extremity normal to inspection Neuro oriented x3, CN's II-XII intact bilaterally, moves all extremities, no focal motor deficits and no sensory deficits noted Sensorium / Orientation: alert and oriented to person Psych mental status grossly normal and thought process normal Skin Skin Narrative: As described above MDM MDM MDM Narrative Medical decision making narrative: Obtain CT brain and cervical spine which are negative for acute findings. I did see that the patient had a CBC and CMP today. Patient is at her baseline on her lab work. She not having chest pain or shortness of breath. Only she needs a cardiac work-up. She states that this dizziness that has is baseline. She has a superficial laceration to the vertex of the scalp however this does not appear to be amenable to a staple. The p atient has very friable skin and I do not think I can suture this either but will likely tear. Since it is not actively bleeding I would just have a dressing placed on it and control it with pressure. Patient was amenable this plan. She will be discharged home in stable condition. Impression: 1. Fall 2. Superficial laceration to scalp 1 Radiography Diagnostic Testing: Clinical Impression(s) from Imaging Studies Brain CT 09/26/21 19:40 IMPRESSION: There is no underlying fracture. Soft tissue swelling and laceration of the scalp- posteriorly. Chronic involutional changes of the brain. Electronically Signed: Sudhakar Paul MD at 20:10 EST , Cervical Spine CT 09/26/21 19:40 IMPRESSION: Degenerative changes of the cervical spine. There are no acute findings. Electronically Signed: Sudhakar Paul MD at 20:29 EST , Discharge Plan Triage Chief Complaint: Head Injury ED Provider: Brad López Dx/Rx/DC Orders Instructions: ED Scalp Contusion Prescriptions: No Action torsemide 20 mg tablet 40 mg PO BID RF: 0 alendronate 70 mg tablet 70 mg PO QWEEK RF: 0 clonazepam 0.5 mg tablet 0.5 mg PO Q12H PRN PRN (Reason: Anxiety) RF: 0 sertraline 100 mg tablet 100 mg PO DAILY RF: 0 amlodipine 5 mg tablet 5 mg PO BID RF: 0 allopurinol 100 mg tablet 200 mg PO DAILY RF: 0 omeprazole 20 mg capsule,delayed release(DR/EC) 20 mg PO DAILY RF: 0 pravastatin 20 mg tablet 20 mg PO QHS RF: 0 ferrous sulfate 325 mg (65 mg iron) tablet,delayed release (DR/EC) PO RF: 0 losartan 100 mg tablet 100 mg PO DAILY RF: 0 fluticasone propionate 50 mcg/actuation spray,suspension 1 spray INTRANASAL DAILY RF: 0 loratadine 10 mg tablet 10 mg PO DAILY RF: 0 bupropion HCl 200 mg tablet sustained-release 12 hr 200 mg PO BID RF: 0 potassium chloride [Klor-Con M10] 10 mEq tablet,ER particles/crystals 10 meq PO DAILY RF: 0 Xarelto 20 mg tablet 20 mg PO QHS RF: 0 Primary Care Provider: Gerda Wilks Referrals: Gerda Wilks MD [Primary Care Provider] - Disposition Disposition: Home, Self Care
--- NOTE | 2021-09-26 21:23 | ED.RN ---
Report called to Mahesh Herrera.
== END 2021-09-26 21:23 | disposition home or self-care (01) ==
PROVIDERS: Emergency Provider Student in an Organized Health Care Education/Training Program; PCP Internal Medicine; Visit Provider Student in an Organized Health Care Education/Training Program
DX: S01.01XA Laceration without foreign body of scalp, initial encounter (principal); Z87.891 Personal history of nicotine dependence; I10 Essential (primary) hypertension; W19.XXXA Unspecified fall, initial encounter; E78.5 Hyperlipidemia, unspecified; K21.9 Gastro-esophageal reflux disease without esophagitis; Z86.718 Personal history of other venous thrombosis and embolism
CPT/HCPCS: 36415; 70450; 72125; 80053; 83735; 85025; 99284

== ENCOUNTER → 2021-12-15 | Outpatient (CLI) | payer MEDICARE, MEDICAID, SELFPAY ==
--- NOTE | 2021-12-15 12:59 | BI_ITS ---
MAMMOGRAPHY - BILATERAL SCREENING 3-D TOMOSYNTHESIS REASON FOR EXAM: Female, 76 years old. SCREENING PERTINENT HISTORY: No significant family history. TECHNIQUE: 2-D mammograms and 3-D Tomosynthesis of the breast (s) were performed. CAD was performed. COMPARISON: 11/30/2020 FINDINGS: The breast composition is composed of scattered fibroglandular density. Scattered benign calcifications are seen. No dense spiculated masses or suspicious microcalcifications are identified. No architectural distortion is identified. There is no skin thickening or retraction. There has been no significant change since the prior study. BI/SCRN MAMM (CAD)W/DAYANNA BILAT IMPRESSION: No mammographic signs of malignancy. Routine yearly mammograms recommended. ASSESSMENT CATEGORY: BIRADS Category 1: Negative. A letter regarding these results will be sent to the patient by the facility within 30 days. FOLLOW UP RECOMMENDATION: Yearly follow up mammogram recommended. (A) Approximately 10% of breast cancers are not detected by mammography. A normal mammogram should not delay biopsy of a clinically suspicious abnormality. Electronically Signed: Ganesh Vickers MD at 16:30 EDT ,
== END | disposition home or self-care (01) ==
PROVIDERS: PCP Internal Medicine; Visit Provider Internal Medicine
DX: Z12.31 Encounter for screening mammogram for malignant neoplasm of breast (principal)
CPT/HCPCS: 77063; 77067

== ENCOUNTER → 2022-01-02 | Outpatient (REF) | payer MEDICARE, MEDICAID, SELFPAY ==
[2022-01-02 08:25] LABS: Hematocrit 41.6 % (37-47); Hemoglobin 13.3 g/dL (12.0-15.0); Mean Corpuscular Hgb 30.8 pg (27.0-32.0); Mean Corpuscular Volume 96.3 fL (81-99); Mean Platelet Vol. 10.7 fl (6.2-12.0); Platelet Count 249 K/mm3 (150-450); RBC Distribution Width CV 14.7 % (11.6-14.6); RBC Distribution Width SD 52.5 fl (35.1-43.9); Red Blood Count 4.32 M/mm3 (4.2-5.4); White Blood Count 7.9 K/mm3 (4.4-11.0)
[2022-01-02 08:51] LABS: Anion Gap 8 (5-15); BUN 34 mg/dL (7-18); BUN/Creat Ratio 24.5 RATIO (10-20); Calcium,Total 10.2 mg/dL (8.5-10.1); Chloride 107 mmol/L (98-107); Cholesterol 178 mg/dL (200); Creatinine, Serum 1.39 mg/dL (0.55-1.02); EST Glomerular Filtration Rate 39 mL/min (>60); Est Glom Filt Rate - Afr Amer 48 mL/min (>60); Glucose 106 mg/dL (74-106); High Density Lipoprotein 63 mg/dL; Magnesium 2.4 mg/dL (1.6-2.6); Potassium 3.9 mmol/L (3.5-5.1); Sodium Level 141 mmol/L (136-145); Triglycerides 93 mg/dL; Very Low Density Lipoprotein 19 mg/dL (5-40)
== END | disposition home or self-care (01) ==
LOC: OLS.SWAL 04:00
PROVIDERS: PCP Internal Medicine; Referring Provider Internal Medicine; Visit Provider Internal Medicine
DX: I10 Essential (primary) hypertension (principal); E78.5 Hyperlipidemia, unspecified
CPT/HCPCS: 36415; 80048; 80061; 83735; 85027

== ENCOUNTER → 2022-02-06 | Outpatient (REF) | payer MEDICARE, MEDICAID, SELFPAY ==
[2022-02-06 08:47] LABS: Absolute Lymphocyte Count 1.14 X10^3/uL (0.83-4.51); Absolute Neutrophil Count 4.6 X10^3/uL (2.0-7.7); Basophil# 0.05 X10^3/uL; Basophil% 0.7 % (0-1); Eosinophil# 0.38 X10^3/uL; Eosinophils% 5.6 % (0-5); Hematocrit 38.2 % (37-47); Lymphocyte # 1.14 X10^3/ul (0.83-4.51); Lymphocyte % 16.7 % (19-41); Mean Corp Hgb Conc 31.4 g/dL (32-36); Mean Corpuscular Hgb 30.8 pg (27.0-32.0); Mean Corpuscular Volume 98.2 fL (81-99); Mean Platelet Vol. 10.7 fl (6.2-12.0); Monocyte# 0.61 X10^3/uL; Monocyte% 8.9 % (0-10); NRBC Flagged by Analyzer 0 % (0-5); Neutrophil # 4.61 X10^3/uL (2.7-7.7); Neutrophil % 67.5 % (47-70); Platelet Count 220 K/mm3 (150-450); RBC Distribution Width SD 53.9 fl (35.1-43.9); Red Blood Count 3.89 M/mm3 (4.2-5.4); White Blood Count 6.8 K/mm3 (4.4-11.0)
== END | disposition home or self-care (01) ==
LOC: OLS.SWAL 04:00
PROVIDERS: PCP Internal Medicine; Referring Provider Internal Medicine; Visit Provider Internal Medicine
DX: D64.9 Anemia, unspecified (principal)
CPT/HCPCS: 36415; 85025

== ENCOUNTER 2022-02-18 10:18 | Emergency (ER) | payer MEDICARE, MEDICAID, SELFPAY ==
[2022-02-18 10:20] VITALS: BP 132/73; PULSE 83; RESP 14; TEMP 36.6; O2SAT 96; BMI 36.4
--- NOTE | 2022-02-18 10:33 | EX.ED.UPPERE ---
HPI History of Present Illness Chief Complaint: Upper Extremity Injury Informant: patient Narrative Narrative: Patient states she dislocated her shoulder in July. She has been having some pain since. She started physical therapy about 2 or 3 weeks ago. After that she got some bruising on the lateral aspect of her arm. She is on Xarelto. However, she denies any impact or fall with the arm. Her only change in activity is the physical therapy. She states her arm is been more sore since then. She has not had fevers chills sweats or recent infections. No recent antibiotics. It is painful if she moves the arm out away from her chest mostly. Rest makes it better. It has been going on for a couple weeks at least but it is actually been hurting ever since she dislocated it in July. She has no distal numbness or tingling. [facility] Medical History Depression DVT (deep venous thrombosis) GERD (gastroesophageal reflux disease) Hyperlipidemia Hypertension Home Medications alendronate 70 mg tablet 70 mg PO QWEEK 08/07/21 [History Last Taken Unknown] allopurinol 100 mg tablet 200 mg PO DAILY 08/07/21 [History Last Taken Unknown] amlodipine 5 mg tablet 5 mg PO BID 08/07/21 [History Last Taken Unknown] bupropion HCl 200 mg tablet,12 hr sustained-release 200 mg PO BID 08/07/21 [History Last Taken Unknown] clonazepam 0.5 mg tablet 0.5 mg PO Q12H PRN PRN Anxiety 08/07/21 [History Last Taken Unknown] ferrous sulfate 325 mg (65 mg iron) tablet,delayed release mg PO 08/07/21 [History Last Taken Unknown] fluticasone propionate 50 mcg/actuation nasal spray,suspension 1 spray intranasal DAILY 08/07/21 [History Last Taken Unknown] loratadine 10 mg tablet 10 mg PO DAILY 08/07/21 [History Last Taken Unknown] losartan 100 mg tablet 100 mg PO DAILY 08/07/21 [History Last Taken Unknown] omeprazole 20 mg capsule,delayed release 20 mg PO DAILY 08/07/21 [History Last Taken Unknown] potassium chloride 10 mEq tablet,extended release(part/cryst) (Klor-Con M) 10 meq PO DAILY 08/07/21 [History Last Taken Unknown] pravastatin 20 mg tablet 20 mg PO QHS 12/12/21 [History Last Taken Unknown] rivaroxaban 20 mg tablet (Xarelto) 20 mg PO QHS 08/07/21 [History Last Taken Unknown] sertraline 100 mg tablet 100 mg PO DAILY 08/07/21 [History Last Taken Unknown] torsemide 20 mg tablet 40 mg PO BID 08/07/21 [History Last Taken Unknown] tramadol 50 mg tablet 50 mg PO Q8H PRN pain 3 days #9 tabs 02/18/22 [Rx Last Taken Unknown] Allergy/AdvReac Type Severity Reaction Status Date / Time Latex, Natural Rubber AdvReac Rash Verified 02/18/22 10:20 Social History Smoking Status: Former smoker ROS ROS ED Constitutional Constitutional ED: Denies chills, fever(s), subjective or sweats ENT ENT ED: Denies rhinorrhea or sore throat Cardiovascular Cardiovascular: Denies chest pain or palpitations Respiratory/Chest Respiratory/Chest: Denies cough or dyspnea Gastrointestinal Gastrointestinal: Denies nausea Musculoskeletal Musculoskeletal: Reports other Details: See history of present illness peer ; Denies neck pain Integumentary Denies abscess, Abrasions or rash Neurologic Neurologic: Denies headache(s), paresthesias or weakness Hematologic/Lymphatic Hematologic/Lymphatic: Reports easy bleeding and easy bruising Allergic/Immunologic Allergic/Immunologic ED: Denies urticaria EXAM Physical Exam Const Vital Signs: 02/18/22 10:20 Temperature 97.8 F Temperature Source Temporal Pulse Rate 83 Respiratory Rate 14 Blood Pressure 132/73 H Blood Pressure Mean 92 Pulse Ox 96 Oxygen Delivery Method Room Air Positive well nourished and well developed General Appearance ED: well developed and NAD HEENT normocephalic and atraumatic Neck full ROM and supple General: Negative for tenderness Chest Wall inspection of chest normal Resp normal respiratory effort and clear to auscultation bilaterally Cardio regular rate and regular rhythm GI non-tender Palpation: soft Extremity Extremity Narrative: There is some resolving bruising to the lateral aspect of her right mid humeral area. It does not go all the way up into the shoulder though. The shoulder is not swollen. There is no warmth or erythema. I can move it passively without any notable pain. If she flexes forward she has some discomfort but mostly abduction causes pain for her. No pain with motion of the elbow. Distal vascular pulses intact. Capillary refill and sensation intact. Neuro Sensorium / Orientation: alert Sensory Exam: No sensory level loss detected Motor Exam: strength 5/5 throughout Psych mental status grossly normal Skin General Skin Exam: Negative for petechiae Lesions: no lesions Rashes: no rashes MDM MDM MDM Narrative Medical decision making narrative: 2 view x-ray of the shoulder look to me by me and read by radiology shows no acute fracture or dislocation. Patient is feeling better with meds. We will get her home with some meds. She will back off of physical therapy for a few days to let this heal and feel better. I see no indication of infection. Discharge Plan Triage Chief Complaint: Upper Extremity Injury ED Provider: Kurt Ochoa Dx/Rx/DC Orders Clinical Impression: Right shoulder strain Instructions: ED Shoulder Sprain Prescriptions: New tramadol 50 mg tablet 50 mg PO Q8H PRN (Reason: pain) 3 Days Qty: 9 0RF No Action torsemide 20 mg tablet 40 mg PO BID alendronate 70 mg tablet 70 mg PO QWEEK clonazepam 0.5 mg tablet 0.5 mg PO Q12H PRN PRN (Reason: Anxiety) sertraline 100 mg tablet 100 mg PO DAILY amlodipine 5 mg tablet 5 mg PO BID allopurinol 100 mg tablet 200 mg PO DAILY omeprazole 20 mg capsule,delayed release(DR/EC) 20 mg PO DAILY pravastatin 20 mg tablet 20 mg PO QHS ferrous sulfate 325 mg (65 mg iron) tablet,delayed release (DR/EC) PO losartan 100 mg tablet 100 mg PO DAILY fluticasone propionate 50 mcg/actuation spray,suspension 1 spray INTRANASAL DAILY loratadine 10 mg tablet 10 mg PO DAILY bupropion HCl 200 mg tablet sustained-release 12 hr 200 mg PO BID potassium chloride [Klor-Con M10] 10 mEq tablet,ER particles/crystals 10 meq PO DAILY Xarelto 20 mg tablet 20 mg PO QHS Primary Care Provider: Gerda Wilks Referrals: Gerda Wilks MD [Primary Care Provider] - 3-5 Days Disposition Disposition: Home, Self Care
--- NOTE | 2022-02-18 10:43 | RAD_ITS ---
STUDY: X-RAY - RIGHT SHOULDER REASON FOR EXAM: Female, 77 years old. Trauma, pain TECHNIQUE: 2 view(s) of the shoulder. COMPARISON: None. FINDINGS: Normal glenohumeral articulation. Normal acromioclavicular joint. Normal acromion. Demineralization of the osseous structures. Soft tissue swelling. Normal visualized pulmonary apex. RAD/Shoulder min 2 Views IMPRESSION: No demonstrated acute fracture or dislocation. Electronically Signed: George Villarreal MD at 11:13 EDT ,
[2022-02-18] MEDS: traMADol 50 MG Tablet PO (11:02)
[2022-02-18 12:38] VITALS: RESP 18
== END 2022-02-18 15:09 | disposition home or self-care (01) ==
PROVIDERS: Emergency Provider Emergency Medicine; PCP Internal Medicine; Visit Provider Emergency Medicine
DX: S46.911A Strain of unspecified muscle, fascia and tendon at shoulder and upper arm level, right arm, initial encounter (principal); I10 Essential (primary) hypertension; E78.5 Hyperlipidemia, unspecified; Z87.891 Personal history of nicotine dependence; K21.9 Gastro-esophageal reflux disease without esophagitis; F32.A Depression, unspecified; Z86.718 Personal history of other venous thrombosis and embolism; X50.1XXA Overexertion from prolonged static or awkward postures, initial encounter
CPT/HCPCS: 73030; 99283

== ENCOUNTER → 2022-04-03 | Outpatient (REF) | payer MEDICARE, MEDICAID, SELFPAY ==
[2022-04-03 08:35] LABS: Hematocrit 36.7 % (37-47); Hemoglobin 11.9 g/dL (12.0-15.0); Mean Corp Hgb Conc 32.4 g/dL (32-36); Mean Corpuscular Hgb 31.2 pg (27.0-32.0); Mean Corpuscular Volume 96.3 fL (81-99); Mean Platelet Vol. 9.9 fl (6.2-12.0); Platelet Count 268 K/mm3 (150-450); RBC Distribution Width CV 15.2 % (11.6-14.6); RBC Distribution Width SD 53.6 fl (35.1-43.9); Red Blood Count 3.81 M/mm3 (4.2-5.4); White Blood Count 6.2 K/mm3 (4.4-11.0)
[2022-04-03 08:51] LABS: Anion Gap 4 (5-15); BUN 26 mg/dL (7-18); BUN/Creat Ratio 22.8 RATIO (10-20); Calcium,Total 10.3 mg/dL (8.5-10.1); Chloride 107 mmol/L (98-107); Cholesterol 145 mg/dL (200); Creatinine, Serum 1.14 mg/dL (0.55-1.02); EST Glomerular Filtration Rate 49 mL/min (>60); Est Glom Filt Rate - Afr Amer 60 mL/min (>60); Glucose 145 mg/dL (74-106); High Density Lipoprotein 67 mg/dL; Magnesium 2.5 mg/dL (1.6-2.6); Potassium 3.6 mmol/L (3.5-5.1); Sodium Level 140 mmol/L (136-145); Triglycerides 81 mg/dL; Very Low Density Lipoprotein 16 mg/dL (5-40)
== END ==
LOC: OLS.SWAL 04:00
PROVIDERS: PCP Internal Medicine; Referring Provider Internal Medicine; Visit Provider Internal Medicine
DX: I10 Essential (primary) hypertension (principal); E78.5 Hyperlipidemia, unspecified
CPT/HCPCS: 36415; 80048; 80061; 83735; 85027

== ENCOUNTER → 2022-04-06 | Outpatient (CLI) | payer MEDICARE, MEDICAID, SELFPAY ==
--- NOTE | 2022-04-06 10:56 | MRI_ITS ---
STUDY: MRI RIGHT SHOULDER REASON FOR EXAM: Right shoulder pain, status post dislocation last July. TECHNIQUE: Standardized fat and water weighted pulse sequences were obtained in all 3 orthogonal planes. COMPARISON: Radiographs 08/07/2021. FINDINGS: There is a full-thickness tear of the supraspinatus/infraspinatus tendons retracted approximately 4.3 cm to the level glenohumeral joint (T2 coronal images 7-15). There is a full-thickness tear of the subscapularis tendon (T2 axial images 10, 11). Normal teres minor tendon. There is atrophy of the muscles of the supraspinatus, infraspinatus and subscapularis muscles with fat replacement (T2 sagittal images 22-24). There is a small glenohumeral joint effusion. There is superior migration of the humeral head secondary to the retracted rotator cuff tear. There is a tear with nonvisualization of the intracapsular long biceps tendon. There is degeneration of the superior labrum. There is acromioclavicular arthrosis without substantial undersurface osteophytes (T2 sagittal image 16). There is a Type II morphology (curved), with a neutral orientation. There is subacromial-subdeltoid bursal fluid and bursal thickening (proton-density axial images 3-12). Normal deltoid muscle. Normal trapezius muscle. MRI/Upper Ext Joint Only(Routine) IMPRESSION: Full-thickness tear of the supraspinatus/infraspinatus tendons. Full-thickness tear of the subscapularis tendon. Atrophy of the supraspinatus, infraspinatus and subscapularis muscles. Tear of the long biceps tendon. Acromioclavicular arthrosis. Glenohumeral joint fluid communicating with the subacromial-subdeltoid bursa. Electronically Signed: Abdon Eller MD at 12:52 EDT ,
== END | disposition home or self-care (01) ==
LOC: MRI 10:43
PROVIDERS: PCP Internal Medicine; Visit Provider Internal Medicine
DX: M25.511 Pain in right shoulder (principal)
CPT/HCPCS: 73221

== ENCOUNTER 2022-05-13 14:26 | Observation (INO) | payer MEDICARE, MEDICAID, SELFPAY ==
[2022-05-13 14:27] VITALS: BP 110/50; PULSE 103; RESP 19; TEMP 36.9; O2SAT 95; BMI 34.9
[2022-05-13 14:32] VITALS: O2SAT 95
--- NOTE | 2022-05-13 14:42 | CT_ITS ---
STUDY: CT BRAIN WITHOUT CONTRAST REASON FOR EXAM: Female, 77 years old. FALL X3 WITHIN 24 HOURS LIVES AT AL RADIATION DOSAGE (If Supplied By Facility): CTDIvol = ( 44.99 ) mGy, DLP = ( 796.11 ) mGycm TECHNIQUE: Transaxial CT imaging of the brain was performed without administration of intravenous contrast material. Individualized dose optimization techniques were used for this CT. COMPARISON: Head CT dated September 26, 2021 FINDINGS: Normal soft tissue structures. Normal calvarium. No visualized skull fracture or hemorrhagic contusions of the brain parenchyma or subdural hemorrhages. There is moderate cerebral atrophy with widening of the extra-axial spaces and ventricular dilatation. There are areas of decreased attenuation within the white matter tracts of the supratentorial brain, consistent with microvascular disease changes. Normal basal ganglia and thalami. Normal brainstem. Normal cerebellum. There is no intracranial hemorrhage. There are no findings of an acute ischemic infarction. Normal visualized paranasal sinuses. CT/Brain/Head without Contrast IMPRESSION: Chronic involutional changes of the brain. Electronically Signed: Jhony Jean MD at 15:19 EDT ,
--- NOTE | 2022-05-13 14:43 | EDS_ITS ---
HPI HPI - Fall History of Present Illness Chief Complaint: Fall Informant: patient Occured/Mechanism Occurred: Days Narrative Narrative: Patient presents for assisted living after 3 falls in the past 2 days. Patient states today she fell coming out of bathroom. She states that she takes 2 water pills in the morning and spends most of the day running to the restroom. She denies injury with her fall yesterday but today did strike her face. She has a small hematoma and scabbed areas above the right eye. She did not lose consciousness. She is also complaining of right ankle pain. She is currently on Xarelto. She was treated with Ultram and clonazepam prior to arrival. [facility] Medical History Depression DVT (deep venous thrombosis) GERD (gastroesophageal reflux disease) Hyperlipidemia Hypertension Home Medications alendronate 70 mg tablet 70 mg PO QWEEK 08/07/21 [History Last Taken Unknown] allopurinol 100 mg tablet 200 mg PO DAILY 08/07/21 [History Last Taken Unknown] amlodipine 5 mg tablet 5 mg PO DAILY 08/07/21 [History Last Taken Unknown] bupropion HCl 200 mg tablet,12 hr sustained-release 200 mg PO BID 08/07/21 [History Last Taken Unknown] clonazepam 0.5 mg tablet 0.5 mg PO Q12H PRN PRN Anxiety 08/07/21 [History Last Taken Unknown] fluticasone propionate 50 mcg/actuation nasal spray,suspension 1 spray intranasal DAILY 08/07/21 [History Last Taken Unknown] loratadine 10 mg tablet 10 mg PO DAILY 08/07/21 [History Last Taken Unknown] losartan 100 mg tablet 100 mg PO DAILY 08/07/21 [History Last Taken Unknown] omeprazole 20 mg capsule,delayed release 20 mg PO DAILY 08/07/21 [History Last Taken Unknown] potassium chloride 10 mEq tablet,extended release(part/cryst) (Klor-Con M) 10 meq PO DAILY 08/07/21 [History Last Taken Unknown] pravastatin 20 mg tablet 20 mg PO QHS 08/07/21 [History Last Taken Unknown] rivaroxaban 20 mg tablet (Xarelto) 20 mg PO QHS 08/07/21 [History Last Taken Unknown] sertraline 100 mg tablet 100 mg PO DAILY 08/07/21 [History Last Taken Unknown] torsemide 20 mg tablet 40 mg PO DAILY 08/07/21 [History Last Taken Unknown] tramadol 50 mg tablet 50 mg PO Q8H PRN pain 3 days #9 tabs 02/18/22 [Rx Last Taken Unknown] Allergy/AdvReac Type Severity Reaction Status Date / Time Latex, Natural Rubber AdvReac Rash Verified 05/13/22 14:31 Social History Smoking Status: Former smoker ROS ROS ED Constitutional Constitutional ED: Denies chills or fever(s) Eyes Eyes: Denies change in vision or discharge from eye(s) ENT ENT ED: Reports other Details: Facial contusion ; Denies discharge from eye(s), rhinorrhea or sore throat Cardiovascular Cardiovascular: Denies chest pain or palpitations Respiratory/Chest Respiratory/Chest: Denies cough or dyspnea Gastrointestinal Gastrointestinal: Denies abdominal pain, diarrhea, nausea or vomiting Genitourinary Genitourinary ED: Denies difficulty urinating or dysuria Musculoskeletal Musculoskeletal: Reports extremity pain; Denies back pain Integumentary Denies Abrasions or rash Neurologic Neurologic: Denies headache(s) or weakness Allergic/Immunologic Allergic/Immunologic ED: Denies lip swelling or urticaria EXAM Physical Exam Const Vital Signs: 05/13/22 14:27 05/13/22 14:32 Temperature 98.5 F Temperature Source Temporal Pulse Rate 103 H Respiratory Rate 19 H Respiratory Effort Non-Labored Respiratory Depth Normal Respiratory Pattern Normal Blood Pressure 110/50 L Blood Pressure Mean 70 Pulse Ox 95 95 Oxygen Delivery Method Room Air Room Air Positive well nourished and well developed General Appearance ED: well developed HEENT Reports normocephalic and head/scalp atraumatic HEENT Narrative: Small scabbed area just above the right eyebrow. Mild surrounding hematoma. Extraocular movements are fully intact with no tenderness over the orbital rim. 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 Right ankle is mildly tender to palpation. Mild ecchymosis over the proximal right humerus. Patient states this has been present for quite some time and is no longer tender. Good range of motion. Neuro oriented x3 and no sensory deficits noted Sensorium / Orientation: alert Psych mental status grossly normal MDM MDM MDM Narrative Medical decision making narrative: Patient sent for CT scan of the head along with x-rays of the right ankle. Lab work and urinalysis ordered. Lab Data Attestation: I reviewed the patient's lab results. Labs: Laboratory Results - last 24 hr 05/13/22 05/13/22 14:55 14:55 WBC 10.4 RBC 3.70 L Hgb 11.3 L Hct 36.5 L MCV 98.6 MCH 30.5 MCHC 31.0 L RDW Std Deviation 54.5 H RDW Coeff of Michele 15.1 H Plt Count 214 MPV 10.0 Immature Gran % (Auto) 0.600 Neut % (Auto) 78.8 H Lymph % (Auto) 10.3 L [place] % (Auto) 8.2 Eos % (Auto) 1.5 Baso % (Auto) 0.6 Absolute Neuts (auto) 8.2 H Absolute Lymphs (auto) 1.07 Nucleated RBC % 0 Sodium 142 Potassium 3.8 Chloride 106 Carbon Dioxide 28.0 Anion Gap 8 BUN 24 H Creatinine 1.24 H Estim Creat Clear Calc 45.36 Est GFR (MDRD) Af Amer 54 L Est GFR (MDRD) Non-Af 45 L BUN/Creatinine Ratio 19.4 Glucose 100 Calcium 10.8 H Radiography Diagnostic Testing: Clinical Impression(s) from Imaging Studies Brain CT 05/13/22 14:42 IMPRESSION: Chronic involutional changes of the brain. Electronically Signed: Jhony Jean MD at 15:19 EDT , Ankle X-Ray 05/13/22 15:03 IMPRESSION: 1. Mildly displaced medial malleolus fracture with soft tissue swelling Electronically Signed: Jhony Jean MD at 15:39 EDT , Treatment and Re-Evaluation Narrative: CBC and chemistry studies unremarkable. She has mild chronic renal insufficie ncy that is unchanged from baseline. CT scan shows chronic involutional changes. Right ankle x-ray per my interpretation reveals significant chronic changes with a questionable medial fracture. Radiology does feel there is an acute mildly displaced medial malleolus fracture. Patient is placed in a posterior splint. I will speak with both podiatry as well as hospitalist. Nursing staff got her up to bedside commode, however had a lift her back into bed as she could not manage on her own. She is currently only in assisted living and cannot care for herself at this time. Discharge Plan Triage Chief Complaint: Fall ED Provider: Ladonna Yang Dx/Rx/DC Orders Clinical Impression: Fall, Contusion of face, Ankle fracture, right Prescriptions: No Action torsemide 20 mg tablet 40 mg PO DAILY alendronate 70 mg tablet 70 mg PO QWEEK clonazepam 0.5 mg tablet 0.5 mg PO Q12H PRN PRN (Reason: Anxiety) sertraline 100 mg tablet 100 mg PO DAILY amlodipine 5 mg tablet 5 mg PO DAILY allopurinol 100 mg tablet 200 mg PO DAILY omeprazole 20 mg capsule,delayed release(DR/EC) 20 mg PO DAILY pravastatin 20 mg tablet 20 mg PO QHS losartan 100 mg tablet 100 mg PO DAILY fluticasone propionate 50 mcg/actuation spray,suspension 1 spray INTRANASAL DAILY loratadine 10 mg tablet 10 mg PO DAILY bupropion HCl 200 mg tablet sustained-release 12 hr 200 mg PO BID potassium chloride [Klor-Con M10] 10 mEq tablet,ER particles/crystals 10 meq PO DAILY Xarelto 20 mg tablet 20 mg PO QHS tramadol 50 mg tablet 50 mg PO Q8H PRN (Reason: pain) 3 Days Qty: 9 0RF Primary Care Provider: Gerda Wilks Referrals: Gerda Wilks MD [Primary Care Provider] - Disposition Disposition: Acute Care [facility]
[2022-05-13 15:02] LABS: Absolute Lymphocyte Count 1.07 X10^3/uL (0.83-4.51); Absolute Neutrophil Count 8.2 X10^3/uL (2.0-7.7); Basophil# 0.06 X10^3/uL; Basophil% 0.6 % (0-1); Eosinophil# 0.16 X10^3/uL; Eosinophils% 1.5 % (0-5); Hematocrit 36.5 % (37-47); Hemoglobin 11.3 g/dL (12.0-15.0); Lymphocyte # 1.07 X10^3/ul (0.83-4.51); Lymphocyte % 10.3 % (19-41); Mean Corpuscular Hgb 30.5 pg (27.0-32.0); Mean Corpuscular Volume 98.6 fL (81-99); Monocyte# 0.86 X10^3/uL; Monocyte% 8.2 % (0-10); NRBC Flagged by Analyzer 0 % (0-5); Neutrophil # 8.22 X10^3/uL (2.7-7.7); Neutrophil % 78.8 % (47-70); Platelet Count 214 K/mm3 (150-450); RBC Distribution Width CV 15.1 % (11.6-14.6); RBC Distribution Width SD 54.5 fl (35.1-43.9); White Blood Count 10.4 K/mm3 (4.4-11.0)
--- NOTE | 2022-05-13 15:03 | RAD_ITS ---
STUDY: X-RAY - RIGHT ANKLE REASON FOR EXAM: Female, 77 years old. fall MULTIPLE FALLS IN HALF-WAY. PAIN TO RIGHT ANKLE. TECHNIQUE: 3 view(s) of the ankle. COMPARISON: None. FINDINGS: Rocker-bottom configuration of the foot would reversal of the calcaneal angle. The bony structures are diffusely demineralized. Moderate size plantar calcaneal spur noted. No visualized acute fracture or displaced bony fragment. A small displaced fracture of the medial malleolus is present. Small displaced corticated bony fragments at the periphery of the medial malleolus is indicative of an old avulsive injury of this region as well. The lateral malleolus is partially obscured by the overlying talus and calcaneus due to position of the foot Mild to moderate soft tissue swelling is present around the ankle. RAD/Ankle min 3 Views IMPRESSION: 1. Mildly displaced medial malleolus fracture with soft tissue swelling Electronically Signed: Jhony Jean MD at 15:39 EDT ,
[2022-05-13 15:17] LABS: Anion Gap 8 (5-15); BUN 24 mg/dL (7-18); BUN/Creat Ratio 19.4 RATIO (10-20); Calcium,Total 10.8 mg/dL (8.5-10.1); Chloride 106 mmol/L (98-107); Creatinine, Serum 1.24 mg/dL (0.55-1.02); EST Glomerular Filtration Rate 45 mL/min (>60); Est Glom Filt Rate - Afr Amer 54 mL/min (>60); Estimated Creatinine Clearance 45.36 ml/min; Glucose 100 mg/dL (74-106); Potassium 3.8 mmol/L (3.5-5.1); Sodium Level 142 mmol/L (136-145)
[2022-05-13 16:27] VITALS: BP 117/88; PULSE 102; RESP 20; O2SAT 95
[2022-05-13 16:35] VITALS: BP 117/88; PULSE 102; RESP 20; TEMP 36.9; O2SAT 95
--- NOTE | 2022-05-13 17:18 | HP.PCM.HOS_ITS ---
HPI - General General Date of Admission: 05/13/22 Date of Service: 05/13/22 Chief Complaint: Right ankle pain, inability to ambulate HPI Narrative CLAUS MCKEON, is a 77 F who presents to the emergency room at [facility] for evaluations after falling several times at the assisted living facility at which she resides. Her last fall was today, she has not been able to bear weight on her right foot since the fall today. Patient bumped the right side of her forehead when she fell and broke her glasses. Patient stated that she did not lose consciousness. Work-up in the emergency room included a CT of the brain which showed no acute abnormalities, patient had a right ankle x-ray done which showed a mildly displaced medial malleolus fracture with soft tissue swelling. Patient's lab was remarkable for hemoglobin of 11.3, creatinine was 1.24, and BUN was 24. Patient will be placed into observation status on [facility] 3, she will be seen in consultation by podiatry (Dr. Hartman). Patient will most likely need tempor dustin placement in a custodial facility due to the fracture and debility. FORMERLY [facility], [facility]–1983 Medical History Depression DVT (deep venous thrombosis) GERD (gastroesophageal reflux disease) Hyperlipidemia Hypertension Home Medications alendronate 70 mg tablet 70 mg PO QWEEK 08/07/21 [History Last Taken Unknown] allopurinol 100 mg tablet 200 mg PO DAILY 08/07/21 [History Last Taken Unknown] amlodipine 5 mg tablet 5 mg PO DAILY 08/07/21 [History Last Taken Unknown] bupropion HCl 200 mg tablet,12 hr sustained-release 200 mg PO BID 08/07/21 [History Last Taken Unknown] clonazepam 0.5 mg tablet 0.5 mg PO Q12H PRN PRN Anxiety 08/07/21 [History Last Taken Unknown] fluticasone propionate 50 mcg/actuation nasal spray,suspension 1 spray intranasal DAILY 08/07/21 [History Last Taken Unknown] loratadine 10 mg tablet 10 mg PO DAILY 08/07/21 [History Last Taken Unknown] losartan 100 mg tablet 100 mg PO DAILY 08/07/21 [History Last Taken Unknown] omeprazole 20 mg capsule,delayed release 20 mg PO DAILY 08/07/21 [History Last Taken Unknown] potassium chloride 10 mEq tablet,extended release(part/cryst) (Klor-Con M) 10 meq PO DAILY 08/07/21 [History Last Taken Unknown] pravastatin 20 mg tablet 20 mg PO QHS 08/07/21 [History Last Taken Unknown] rivaroxaban 20 mg tablet (Xarelto) 20 mg PO QHS 08/07/21 [History Last Taken Unknown] sertraline 100 mg tablet 100 mg PO DAILY 08/07/21 [History Last Taken Unknown] torsemide 20 mg tablet 40 mg PO DAILY 08/07/21 [History Last Taken Unknown] tramadol 50 mg tablet 50 mg PO Q8H PRN pain 3 days #9 tabs 02/18/22 [Rx Last Taken Unknown] Allergy/AdvReac Type Severity Reaction Status Date / Time Latex, Natural Rubber AdvReac Rash Verified 05/13/22 14:31 Social History Smoking Status: Former smoker ROS Constitutional Constitutional: Reports weakness; Denies anorexia, change in weight, chills, fatigue, fever(s) or night sweats Eyes Eyes: Denies blurry vision, change in vision, discharge from eye(s) or eye pain Cardiovascular Cardiovascular: Denies chest pain, claudication, dyspnea on exertion, edema, lightheadedness or palpitations Respiratory/Chest Respiratory/Chest: Denies cough, excessive phlegm production, hemoptysis, productive cough, shortness of breath at rest or shortness of breath with exertion Gastrointestinal Gastrointestinal: Denies abdominal pain, constipation, diarrhea, hematemesis, hematochezia, melena, nausea or vomiting Genitourinary Genitourinary: Denies difficulty urinating, dysuria, hematuria, nocturia, urinary frequency, urinary hesitancy, urinary incontinence or urinary urgency Musculoskeletal Musculoskeletal: Reports joint pain and other Details: Contusion on the right forehead ; Denies back pain, joint stiffness, joint swelling, myalgias or neck pain Neurologic Neurologic: Reports confusion and disequilibrium; Denies abnormal gait, abnormal speech, dizziness, focal weakness, headache(s), loss of vision, numbness, other visual disturbances, paresthesias, syncope or tingling Psychiatric Psychiatric: Denies anxiety, cognitive impairment, depression, irritability, mood swings or suicidal ideation Endocrine Endocrinology: Denies change in body appearance, cold intolerance, excessive sweating, heat intolerance, polydipsia or polyuria Hematologic/Lymphatic Hematologic/Lymphatic: Denies none, anemia, easy bleeding, easy bruising or lymphadenopathy Allergic/Immunologic Allergic/Immunologic: Denies rhinitis, urticaria, eczemia or asthma Vital Signs Vital Signs Vital Signs: 05/13/22 14:27 05/13/22 14:32 05/13/22 16:35 Temperature 98.5 F 98.5 F Temperature Source Temporal Temporal Pulse Rate 103 H 102 H Respiratory Rate 19 H 20 H Respiratory Effort Non-Labored Respiratory Depth Normal Respiratory Pattern Normal Blood Pressure 110/50 L 117/88 H Blood Pressure Mean 70 97 Pulse Ox 95 95 95 Oxygen Delivery Method Room Air Room Air Room Air Weight Weight: 73.3 kg Body Mass Index (BMI) 34.9 Physical Exam Const alert, oriented x3, no apparent distress, average body habitus and healthy appearing Constitutional Narrative: Patient appears older than her stated age General Appearance: cooperative, well kempt and well developed Orientation / Consciousness: awake, oriented to person, oriented to place and oriented to time HEENT normocephalic and moist oral mucous membranes HEENT Narrative: Patient has a contusion on her right forehead, this is nonbleeding and there is minimal swelling Eyes PERRL, EOMs intact bilaterally and conjunctivae normal Neck supple, no JVD, thyroid normal and no carotid bruits General: trachea midline Resp normal respiratory effort, no retractions, no use of accessory muscles and clear to auscultation bilaterally Auscultation: Negative for rales, rhonchi or wheezes Cardio regular rate, regular rhythm, S1 normal heart sound, S2 normal heart sound, no murmurs, no rub and no gallops GI normal to inspection, nondistended, normoactive bowel sounds, soft to palpation, non-tender and non-distended Extremity Extremity Narrative: Patient has deformity of her right foot with a rocker-bottom deformity, a posterior splint is in place over the right ankle area and right lower leg, right ankle is tender to palpation Skin Skin Narrative: Patient has a contusion area over the right forehead General Skin Exam: no breakdown Neuro oriented x3, CN's II-XII intact bilaterally, moves all extremities, no focal motor deficits and no sensory deficits noted Sensorium / Orientation: awake, alert, oriented to person and oriented to place Speech: speech normal Psych affect normal Results Lab / Micro Data Result Diagrams: 05/13/22 14:55 05/13/22 14:55 Labs: Laboratory Results - last 24 hr 05/13/22 14:55: WBC 10.4, RBC 3.70 L, Hgb 11.3 L, Hct 36.5 L, MCV 98.6, MCH 30.5, MCHC 31.0 L, RDW Std Deviation 54.5 H, RDW Coeff of Michele 15.1 H, Plt Count 214, MPV 10.0, Immature Gran % (Auto) 0.600, Neut % (Auto) 78.8 H, Lymph % (Auto) 10.3 L, [place] % (Auto) 8.2, Eos % (Auto) 1.5, Baso % (Auto) 0.6, Absolute Neuts (auto) 8.2 H, Absolute Lymphs (auto) 1.07, Nucleated RBC % 0 05/13/22 14:55: Sodium 142, Potassium 3.8, Chloride 106, Carbon Dioxide 28.0, Anion Gap 8, BUN 24 H, Creatinine 1.24 H, Estim Creat Clear Calc 45.36, Est GFR (MDRD) Af Amer 54 L, Est GFR (MDRD) Non-Af 45 L, BUN/Creatinine Ratio 19.4, Glucose 100, Calcium 10.8 H Radiology Impression Brain CT 05/13/22 14:42 IMPRESSION: Chronic involutional changes of the brain. Electronically Signed: Jhony Jean MD at 15:19 EDT Reading Location ID and State: [address] [place] [address] , Service support , Ankle X-Ray 05/13/22 15:03 IMPRESSION: 1. Mildly displaced medial malleolus fracture with soft tissue swelling Electronically Signed: Jhony Jean MD at 15:39 EDT , Assessment & Plan Assessment/Plan (1) Ankle fracture, right: PLAN: Plan 1. Acute fracture of the right ankle secondary to osteoporosis-patient will be placed in observation status on [facility] 3, she will be seen in consultation by podiatry, PT and OT will see the patient, she will need placement in a custodial facility for short-term rehab services. #2 essential hypertension-patient will remain on her present medication #3 hyperlipidemia-patient will remain on her present medication #4 chronic depression-patient will remain on her home medication #5 chronic anxiety-patient is on clonazepam every 12 hours as needed anxiety, this will be continued #6 chronic use of anticoagulants-patient is on Xarelto, she has a past history of PE, on Xarelto will be continued #7 osteoporosis-patient will remain on calcium and vitamin D supplementation, her Fosamax will be continued Charges/Coding Visit Charges OBSV E&M: 30924 Initial observation care L3
[2022-05-13] MEDS: fentaNYL 100 MCG/2 ML Ampul 25 MCG IV (17:30)
[2022-05-13 18:21] VITALS: BMI 34.0
[2022-05-13 18:31] VITALS: BP 105/54; PULSE 97; RESP 18; TEMP 37.1; O2SAT 96
[2022-05-13] MEDS: traMADol 50 MG Tablet PO (20:17)
[2022-05-13 22:08] VITALS: BP 103/57; PULSE 92; RESP 18; TEMP 37.2; O2SAT 92
[2022-05-13] MEDS: Rivaroxaban 20 MG Tablet PO (22:14)
[2022-05-13] MEDS: Pravastatin 20 MG Tablet PO (22:14)
[2022-05-13] MEDS: buPROPion (SR) 100 MG TABLET.SA 200 MG PO (22:14)
[2022-05-13] MEDS: Temazepam 15 MG Capsule PO (22:15)
[2022-05-13] MEDS: Nystatin Powder 15gm Bottle 1 APPLIC TOPICAL (22:15)
[2022-05-13] MEDS: Acetaminophen 325 MG Tablet 650 MG PO (22:22)
[2022-05-14 03:49] VITALS: BP 98/40; PULSE 82; RESP 18; TEMP 36.9; O2SAT 94
[2022-05-14 05:46] VITALS: BP 129/42; PULSE 81
[2022-05-14] MEDS: Nystatin Powder 15gm Bottle 1 APPLIC TOPICAL ×2 (05:47→19:55)
[2022-05-14 07:39] LABS: Bacteria 0 SEEN /hpf (None Seen); Mucous, Urine 0 SEEN /hpf (<or=2+); Red Blood Cells-Urine 0 SEEN /hpf (0-5); Squamous Epithelial Cells - UA 0 SEEN /hpf (5-10); White Blood Cells 0 SEEN /hpf (0-5)
[2022-05-14 07:40] LABS: Color, Urine Yellow (Yellow); Glucose, Dipstick Normal (Normal); Ketone-Dipstick Negative (Negative); Leukocyte Esterase-Dipstick Negative /ul (Negative); Nitrite-Dipstick Negative (Negative); Occult Blood-Urine 10 /ul (Negative); Protein-Dipstick Negative (Negative); Urine Bilirubin Dipstick Negative (Negative); Urine Clarity Clear (Clear); Urine Urobilinogen Normal (Normal)
[2022-05-14] MEDS: Potassium Chloride Oral Tablet 20 MEQ PO (08:30)
[2022-05-14] MEDS: Furosemide 80 MG Tablet PO (08:32)
[2022-05-14] MEDS: buPROPion (SR) 100 MG TABLET.SA 200 MG PO ×2 (08:32→19:56)
[2022-05-14] MEDS: Allopurinol 100 MG Tablet 200 MG PO (08:32)
[2022-05-14] MEDS: Pantoprazole Sodium 20 MG Tablet PO (08:32)
[2022-05-14] MEDS: Sertraline 100 MG Tablet PO (08:32)
[2022-05-14] MEDS: Calcium Carb/Vitamin D 1 TABLET Tablet PO ×2 (08:33→16:22)
[2022-05-14 08:39] VITALS: BP 91/47; PULSE 83; RESP 18; TEMP 36.9; O2SAT 95
--- NOTE | 2022-05-14 09:24 | PN.HOSP_ITS ---
Subjective Subjective Right ankle sore. Denies any other complaints Objective Data Objective Data Vital Signs: Vital Signs Temp Pulse Resp BP Pulse Ox O2 Del Method 36.9 C 83 18 91/47 L 95 Room Air 05/14/22 08:39 05/14/22 08:39 05/14/22 08:39 05/14/22 08:39 05/14/22 08:39 05/14/22 08:39 Oxygen Delivery Method Room Air Weight: 71.3 kg Body Mass Index (BMI) 34.0 Intake & Output: Intake and Output for Last 24 Hours 05/12/22 05/13/22 05/14/22 23:59 23:59 23:59 Intake Total 200 / 200 220 / 220 Output Total 300 / 300 200 / 200 Balance -100 / -100 Lab / Micro Data Result Diagrams: 05/13/22 14:55 05/13/22 14:55 Labs: Laboratory Results - last 24 hr 05/13/22 14:55: WBC 10.4, RBC 3.70 L, Hgb 11.3 L, Hct 36.5 L, MCV 98.6, MCH 30.5, MCHC 31.0 L, RDW Std Deviation 54.5 H, RDW Coeff of Michele 15.1 H, Plt Count 214, MPV 10.0, Immature Gran % (Auto) 0.600, Neut % (Auto) 78.8 H, Lymph % (Auto) 10.3 L, [place] % (Auto) 8.2, Eos % (Auto) 1.5, Baso % (Auto) 0.6, Absolute Neuts (auto) 8.2 H, Absolute Lymphs (auto) 1.07, Nucleated RBC % 0 05/13/22 14:55: Sodium 142, Potassium 3.8, Chloride 106, Carbon Dioxide 28.0, Anion Gap 8, BUN 24 H, Creatinine 1.24 H, Estim Creat Clear Calc 45.36, Est GFR (MDRD) Af Amer 54 L, Est GFR (MDRD) Non-Af 45 L, BUN/Creatinine Ratio 19.4, Glucose 100, Calcium 10.8 H 05/14/22 07:30: Urine Color Yellow, Urine Clarity Clear, Urine pH 6.0, Ur Specific [place] 1.010, Urine Protein Negative, Urine Glucose (UA) Normal, Urine Ketones Negative, Urine Occult Blood 10 H, Urine Nitrite Negative, Urine Bilirubin Negative, Urine Urobilinogen Normal, Ur Leukocyte Esterase Negative, Urine RBC 0 SEEN, Urine WBC 0 SEEN, Ur Squamous Epith Cells 0 SEEN, Urine Bacteria 0 SEEN, Urine Mucus 0 SEEN Radiography Diagnostic Testing: Radiology Impression Brain CT 05/13/22 14:42 IMPRESSION: Chronic involutional changes of the brain. Electronically Signed: Jhony Jean MD at 15:19 EDT Reading Location ID and State: [address] [place] [address] , Service support , Ankle X-Ray 05/13/22 15:03 IMPRESSION: 1. Mildly displaced medial malleolus fracture with soft tissue swelling Electronically Signed: Jhony Jean MD at 15:39 EDT Reading Location ID and State: [facility] / [place] , Service support , Physical Exam Const alert and no apparent distress Resp normal respiratory effort, no retractions, no use of accessory muscles and clear to auscultation bilaterally Cardio regular rate, regular rhythm, S1 normal heart sound and S2 normal heart sound GI normal to inspection, nondistended, normoactive bowel sounds, soft to palpation and non-tender Extremity normal to inspection Assessment & Plan Assessment/Plan (1) Ankle fracture, right: PLAN: Acute fracture of the right ankle secondary to osteoporosis-patient will be placed in observation status on [facility] 3, she will be seen in consultation by podiatry, PT and OT will see the patient, she will need placement in a snf facility for short-term rehab services. Check 25-hydroxy vitamin D level Podiatry consulted and recommending: CAM boot to be placed to the right foot so that she may continue protected weightbearing status with the assistance of her walker. Given her generalized weakness and history of multiple falls I do not feel she would do well with a nonweightbearing status.? No surgical intervention planned at this time. She may remain seated for showering purposes, CAM boot to be worn at all times for ambulation. PLAN: Plan Chronic conditions * essential hypertension-patient will remain on her present medication * hyperlipidemia-patient will remain on her present medication * chronic depression-patient will remain on her home medication * chronic anxiety-patient is on clonazepam every 12 hours as needed anxiety, this will be continued * chronic use of anticoagulants-patient is on Xarelto, she has a past history of PE, on Xarelto will be continued * osteoporosis-patient will remain on calcium and vitamin D supplementation, her Fosamax will be continued VTE prophylaxis: not indicated as anticoagulated. Disposition: Patient will require going to a snf facility. Charges/Coding Visit Charges OBSV E&M: 90554 Subsequent observation care L2
--- NOTE | 2022-05-14 11:41 | PCM.CONS.GEN ---
Assessment & Plan Assessment/Plan (1) Ankle fracture, right: (2) Contusion of face: (3) Fall: (4) Acute right ankle pain: (5) Difficulty walking: PLAN: Plan Patient seen and evaluated Radiographs obtained in ED on 05/13/2022 were reviewed. There is a minimally displaced distal medial malleolus fracture best appreciated on the lateral view. Patient has decreased mineralization of bone of the ankle and foot. She does demonstrate stage III posterior tibial tendon dysfunction with subluxation of the naviculocuneiform joint and talonavicular joint. Patient was placed into a posterior splint in the ED. Medial right ankle does have some mild soft tissue edema but no evidence of ecchymosis. Given minimal displacement I am recommending a CAM boot to be placed to the right foot so that she may continue protected weightbearing status with the assistance of her walker. Given her generalized weakness and history of multiple falls I do not feel she would do well with a nonweightbearing status. No surgical intervention planned at this time. I am recommending placement in a [facility] facility as patient currently lives in an assisted living facility and given history of her falls I do not feel she would do well on her own. Recommending physical therapy for rehabilitation to build strength prior to her discharge to the skilled facility. Vitamin D level to be obtained, results pending and will follow up. Supplementation recommended if low. She may remain seated for showering purposes, CAM boot to be worn at all times for ambulation. Medicine team currently following for medical management. This is greatly appreciated. Podiatry will continue to follow and monitor for healing. Please do not hesitate to call for any questions or concerns. Niranjan Hartman Jr. D.P.M. [facility] [phone] Note: [employer] ([employer] speech recognition drafter engineering software was used to create portions of this document. Sound-alike and misspelled words, as well as other drafter engineering errors may be contained in the documentation. HPI Consult Data Date of Consult: 05/14/22 HPI Narrative Reason for Consultation: Minimally displaced right medial malleolar fracture HPI Narrative: CLAUS MCKEON, is a 77 F who presents to the [place] ED on 05/13/2022 following a fall as she was leaving the bathroom. Patient states that she hit her head and broke her glasses during the fall and complained of right ankle pain. She states that she is had 3 falls within the past 2 days at her assisted living facility. She normally ambulates with the assistance of a walker however this has not helped and prevention of fall. She reports multiple incidents of falling since July 2021. She informs me that during a fall in July she injured her shoulder. Patient takes Xarelto at home for history of DVT. CT was performed of her head which demonstrated no internal bleeding. She also complained of right ankle pain and radiographs were taken demonstrating a minimally displaced distal medial malleoli are fracture of the right ankle. She was placed into a posterior splint. She was evaluated in the ED and noticed to be very weak with difficulty standing with her assistance of a walker and was thus admitted to [facility] for observation. Podiatry was consulted for management of her ankle fracture. Patient was seen bedside today resting with right foot elevated and ice applied to the medial ankle. She does complain of pain to the right ankle prior to ice and medication. She states she would like to continue to walk as she has had difficulty trying to stay off of her leg. She has no further complaints today. FORMERLY [facility] Medical History Depression DVT (deep venous thrombosis) GERD (gastroesophageal reflux disease) Hyperlipidemia Hypertension Home Medications alendronate 70 mg tablet 70 mg PO QWEEK 08/07/21 [History Last Taken Unknown] allopurinol 100 mg tablet 200 mg PO DAILY 08/07/21 [History Last Taken Unknown] amlodipine 5 mg tablet 5 mg PO DAILY 08/07/21 [History Last Taken Unknown] bupropion HCl 200 mg tablet,12 hr sustained-release 200 mg PO BID 08/07/21 [History Last Taken Unknown] clonazepam 0.5 mg tablet 0.5 mg PO Q12H PRN PRN Anxiety 08/07/21 [History Last Taken Unknown] fluticasone propionate 50 mcg/actuation nasal spray,suspension 1 spray intranasal DAILY 08/07/21 [History Last Taken Unknown] loratadine 10 mg tablet 10 mg PO DAILY 08/07/21 [History Last Taken Unknown] losartan 100 mg tablet 100 mg PO DAILY 08/07/21 [History Last Taken Unknown] omeprazole 20 mg capsule,delayed release 20 mg PO DAILY 08/07/21 [History Last Taken Unknown] potassium chloride 10 mEq tablet,extended release(part/cryst) (Maxine-Con M) 10 meq PO DAILY 08/07/21 [History Last Taken Unknown] pravastatin 20 mg tablet 20 mg PO QHS 08/07/21 [History Last Taken Unknown] rivaroxaban 20 mg tablet (Xarelto) 20 mg PO QHS 08/07/21 [History Last Taken Unknown] sertraline 100 mg tablet 100 mg PO DAILY 08/07/21 [History Last Taken Unknown] torsemide 20 mg tablet 40 mg PO DAILY 08/07/21 [History Last Taken Unknown] tramadol 50 mg tablet 50 mg PO Q8H PRN pain 3 days #9 tabs 02/18/22 [Rx Last Taken Unknown] Allergy/AdvReac Type Severity Reaction Status Date / Time Latex, Natural Rubber AdvReac Rash Verified 05/13/22 14:31 Social History Smoking Status: Former smoker Physical Exam Const alert, oriented x3 and no apparent distress General Appearance: cooperative HEENT Face and Sinus: facial ecchymosis right Positive for periorbital Eyes General Eye: normal appearance of both eyes Neck General: normal visual inspection Lymph Lymphatic: no lymphadenopathy noted and no lymphedema noted Resp normal respiratory effort Cardio regular rate and regular rhythm Extremity normal capillary refill and no calf tenderness Extremity Narrative: Diminished pedal pulses, DP and PT bilaterally. Capillary fill time is less than 5 seconds to the digits. Contractures of digits 1, 2, 3, 4, and 5 of the left foot noted to be semirigid consistent with hammertoe deformity. Contractures of the lesser digits 2 through 5 of the right foot noted to be semirigid consistent with hammertoe deformity. Acquired pes planus deformity with prominent navicular bone bilaterally consistent with posterior tibial tendon dysfunction stage III. Mild soft tissue edema medially about the right ankle. No ecchymosis noted. She does demonstrate pain to palpation about the medial malleolus distally and anteriorly overlying her site of fracture. Skin no rashes or lesions noted, skin turgor normal and no jaundice Neuro oriented x3 and moves all extremities Lab / Micro Data Result Diagrams: 05/13/22 14:55 05/13/22 14:55 Labs: Laboratory Results - last 24 hr 05/13/22 14:55: WBC 10.4, RBC 3.70 L, Hgb 11.3 L, Hct 36.5 L, MCV 98.6, MCH 30.5, MCHC 31.0 L, RDW Std Deviation 54.5 H, RDW Coeff of Michele 15.1 H, Plt Count 214, MPV 10.0, Immature Gran % (Auto) 0.600, Neut % (Auto) 78.8 H, Lymph % (Auto) 10.3 L, [place] % (Auto) 8.2, Eos % (Auto) 1.5, Baso % (Auto) 0.6, Absolute Neuts (auto) 8.2 H, Absolute Lymphs (auto) 1.07, Nucleated RBC % 0 05/13/22 14:55: Sodium 142, Potassium 3.8, Chloride 106, Carbon Dioxide 28.0, Anion Gap 8, BUN 24 H, Creatinine 1.24 H, Estim Creat Clear Calc 45.36, Est GFR (MDRD) Af Amer 54 L, Est GFR (MDRD) Non-Af 45 L, BUN/Creatinine Ratio 19.4, Glucose 100, Calcium 10.8 H 05/14/22 07:30: Urine Color Yellow, Urine Clarity Clear, Urine pH 6.0, Ur Specific [place] 1.010, Urine Protein Negative, Urine Glucose (UA) Normal, Urine Ketones Negative, Urine Occult Blood 10 H, Urine Nitrite Negative, Urine Bilirubin Negative, Urine Urobilinogen Normal, Ur Leukocyte Esterase Negative, Urine RBC 0 SEEN, Urine WBC 0 SEEN, Ur Squamous Epith Cells 0 SEEN, Urine Bacteria 0 SEEN, Urine Mucus 0 SEEN Radiology Impression Brain CT 05/13/22 14:42 IMPRESSION: Chronic involutional changes of the brain. Electronically Signed: Jhony Jean MD at 15:19 EDT Reading Location ID and State: [address] [place] [address] , Service support , Ankle X-Ray 05/13/22 15:03 IMPRESSION: 1. Mildly displaced medial malleolus fracture with soft tissue swelling Electronically Signed: Jhony Jean MD at 15:39 EDT ,
[2022-05-14 16:19] VITALS: BP 103/45; PULSE 91; RESP 18; TEMP 37.4; O2SAT 94
[2022-05-14] MEDS: Rivaroxaban 20 MG Tablet PO (16:22)
[2022-05-14 19:43] VITALS: BP 114/59; PULSE 93; RESP 18; TEMP 37.2; O2SAT 96
[2022-05-14] MEDS: Pravastatin 20 MG Tablet PO (19:56)
[2022-05-14] MEDS: Acetaminophen 325 MG Tablet 650 MG PO (19:57)
[2022-05-14] MEDS: Temazepam 15 MG Capsule PO (19:57)
[2022-05-15 05:00] VITALS: BP 108/48; PULSE 88; RESP 18; TEMP 37.1; O2SAT 93
--- NOTE | 2022-05-15 07:14 | PN.HOSP_ITS ---
Subjective Subjective Feels well. Objective Data Objective Data Vital Signs: Vital Signs Temp Pulse Resp BP Pulse Ox O2 Del Method 37.1 C 88 18 108/48 L 93 Room Air 05/15/22 05:00 05/15/22 05:00 05/15/22 05:00 05/15/22 05:00 05/15/22 05:00 05/15/22 05:00 Oxygen Delivery Method Room Air Weight: 71.3 kg Body Mass Index (BMI) 34.0 Intake & Output: Intake and Output for Last 24 Hours 05/13/22 05/14/22 05/15/22 23:59 23:59 23:59 Intake Total 200 / 200 542 / 692 400 / 400 Output Total 300 / 300 600 / 800 650 / 650 Balance -100 / -100 -58 / -108 -250 / -250 Lab / Micro Data Result Diagrams: 05/13/22 14:55 05/13/22 14:55 Labs: Laboratory Results - last 24 hr 05/14/22 07:30: Urine Color Yellow, Urine Clarity Clear, Urine pH 6.0, Ur Specific [place] 1.010, Urine Protein Negative, Urine Glucose (UA) Normal, Urine Ketones Negative, Urine Occult Blood 10 H, Urine Nitrite Negative, Urine Bilirubin Negative, Urine Urobilinogen Normal, Ur Leukocyte Esterase Negative, Urine RBC 0 SEEN, Urine WBC 0 SEEN, Ur Squamous Epith Cells 0 SEEN, Urine Bacteria 0 SEEN, Urine Mucus 0 SEEN Physical Exam Const alert and no apparent distress Extremity Extremity Narrative: right ankle wrapped--did not remove. Assessment & Plan Assessment/Plan (1) Ankle fracture, right: PLAN: Acute fracture of the right ankle secondary to osteoporosis-patient will be placed in observation status on [facility] 3, she will be seen in consultation by podiatry, PT and OT will see the patient, she will need placement in a senior living facility for short-term rehab services. 25-hydroxy vitamin D level 80.9--no replacement required. Podiatry consulted and recommending: CAM boot to be placed to the right foot so that she may continue protected weightbearing status with the assistance of her walker. Given her generalized weakness and history of multiple falls I do not feel she would do well with a nonweightbearing status.? No surgical intervention planned at this time. She may remain seated for showering purposes, CAM boot to be worn at all times for ambulation. PLAN: Plan Chronic conditions * essential hypertension-patient will remain on her present medication * hyperlipidemia-patient will remain on her present medication * chronic depression-patient will remain on her home medication * chronic anxiety-patient is on clonazepam every 12 hours as needed anxiety, this will be continued * chronic use of anticoagulants-patient is on Xarelto, she has a past history of PE, on Xarelto will be continued * osteoporosis-patient will remain on calcium and vitamin D supplementation, her Fosamax will be continued VTE prophylaxis: not indicated as anticoagulated. Disposition: Patient will require going to a senior living facility. Charges/Coding Visit Charges Inpatient E&M: 63152 Subs Hosp L1
[2022-05-15] MEDS: Calcium Carb/Vitamin D 1 TABLET Tablet PO (08:16)
[2022-05-15] MEDS: Potassium Chloride Oral Tablet 20 MEQ PO (08:16)
[2022-05-15 08:37] LABS: Vitamin D,25 Hydroxy 80.9 ng/mL
--- NOTE | 2022-05-15 09:19 | CASEMGMT ---
Addendum entered by Nicole Dewey 05/15/22 09:25: Pt has already had PT/OT evaluations. Additional therapy recommended. SW notified discharge retail assistant, Jojo Belle, of pt choice. Referral to [facility] to be sent. BUSHRA Saunders Original Note: Social Work SW in to meet pt. Introduced self and role at the hospital. Pt agreeable to discussing discharge plan. Pt stated from [facility]. SW discussed possibility of pt needing ongoing rehab after leaving the hospital. Pt shared being agreeable to a short SNF stay if necessary. A printed list of SNF providers including quality and resources use date that is consistent with patient's preferred geographical region, medical needs, and insurances network were provided via the [employer] Guide Link.?Pt chose [facility] as first choice, as it is linked to pt home at [place] at [facility]. SW explained pt will need to have PT and if they recommend ongoing therapy upon discharge that a referral will be sent to [facility] on pt behalf. Pt voiced understanding. PLAN: [facility], pending acceptance and precert. BUSHRA Saunders
[2022-05-15 09:28] VITALS: O2SAT 96
--- NOTE | 2022-05-15 09:51 | CASEMGMT ---
Discharge Community Health Specialist Jojo arambula horticultural nursery assistant sent referral via [facility] to [facility]. Plan: [facility], Waiting Acceptance Jojo Belle Discharge Community Health Specialist
--- NOTE | 2022-05-15 10:23 | TREXTCAR_ITS ---
Diet Diet Order/Speech Therapy: 05/13/22 18:11 Diet: Regular - General Food consistency:: Regular Liquid Consistency:: Regular/Thin Wound(s) above rt eye: Wound Type: Abrasion Therapies Weight Bearing: Weight bearing as tolerated (protected weightbearing with CAM boot.) Extremity Affected:: Right Lower (CAM boot to be worn at all times. ) Problem/Diagnosis (1) Ankle fracture, right: Status: Acute Code(s): S82.891A - Other fracture of right lower leg, initial encounter for closed fracture Plan: Acute fracture of the right ankle secondary to osteoporosis-patient will be placed in observation status on [facility] 3, she will be seen in consultation by podiatry, PT and OT will see the patient, she will need placement in a senior living facility for short-term rehab services. 25-hydroxy vitamin D level 80.9--no replacement required. Podiatry consulted and recommending: CAM boot to be placed to the right foot so that she may continue protected weightbearing status with the assistance of her walker. Given her generalized weakness and history of multiple falls I do not feel she would do well with a nonweightbearing status.? No surgical intervention planned at this time. She may remain seated for showering purposes, CAM boot to be worn at all times for ambulation. Plan Chronic conditions * essential hypertension-patient will remain on her present medication * hyperlipidemia-patient will remain on her present medication * chronic depression-patient will remain on her home medication * chronic anxiety-patient is on clonazepam every 12 hours as needed anxiety, this will be continued * chronic use of anticoagulants-patient is on Xarelto, she has a past history of PE, on Xarelto will be continued * osteoporosis-patient will remain on calcium and vitamin D supplementation, her Fosamax will be continued VTE prophylaxis: not indicated as anticoagulated. Disposition: Patient will require going to a senior living facility. Allergies/Procedures Done in Hospital Allergies Latex, Natural Rubber Adverse Reaction (Verified 05/13/22 14:31) Rash Procedures: None Type of Care/Length of Stay Estimated LOS: Convalescent Care Less Than 30 days Type of Care Needed: Skilled Rehab Potential: Fair Prognosis: Good Additional Orders/Day of Discharge Day of Discharge: 05/15/22 Discharge Plan Admission Admit Date/Time: 05/13/22 17:29 Primary Reason for Your Visit: right medial malleolus fracture Attending Provider: Israel Garza Primary Care Provider: Gerda Wikls Consulting Providers: Niranjan Hartman ; Osman Nance Discharge Orders/Prescriptions Prescriptions: New acetaminophen [Tylenol] 325 mg Tablet 650 mg PO Q6H PRN PRN (Reason: Pain Score 1-10/Temp > 100.7 F) Qty: 0 0RF nystatin [Nyamyc] 100,000 unit/gram Powder 1 applic topical BID Qty: 0 0RF Protocol: *Topical Application Instructions APPLICATION INSTRUCTIONS: groin Continued torsemide 20 mg tablet 40 mg PO DAILY alendronate 70 mg tablet 70 mg PO QWEEK sertraline 100 mg tablet 100 mg PO DAILY amlodipine 5 mg tablet 5 mg PO DAILY allopurinol 100 mg tablet 200 mg PO DAILY omeprazole 20 mg capsule,delayed release(DR/EC) 20 mg PO DAILY pravastatin 20 mg tablet 20 mg PO QHS losartan 100 mg tablet 100 mg PO DAILY fluticasone propionate 50 mcg/actuation spray,suspension 1 spray INTRANASAL DAILY loratadine 10 mg tablet 10 mg PO DAILY bupropion HCl 200 mg tablet sustained-release 12 hr 200 mg PO BID potassium chloride [Klor-Con M10] 10 mEq tablet,ER particles/crystals 10 meq PO DAILY Xarelto 20 mg tablet 20 mg PO QHS clonazepam 0.5 mg tablet 0.5 mg PO Q12H PRN PRN (Reason: Anxiety) 3 Days Qty: 6 0RF tramadol 50 mg tablet 50 mg PO Q8H PRN (Reason: pain) 3 Days Qty: 9 0RF Referrals / Follow Up: Gerda Wilks MD [Primary Care Provider] - Within 2 Weeks Niranjan Hartman DPM [Med Staff - Active Staff] - Within 1 Month Disposition Disposition (needs filled in before D/C Order can be placed): Snf Facility
[2022-05-15 10:27] VITALS: O2SAT 96
[2022-05-15 10:32] VITALS: BP 110/45; PULSE 95; RESP 16; TEMP 36.9; O2SAT 93
[2022-05-15] MEDS: buPROPion (SR) 100 MG TABLET.SA 200 MG PO (10:34)
[2022-05-15] MEDS: Nystatin Powder 15gm Bottle 1 APPLIC TOPICAL (10:34)
[2022-05-15] MEDS: Allopurinol 100 MG Tablet 200 MG PO (10:34)
[2022-05-15] MEDS: Furosemide 80 MG Tablet PO (10:34)
[2022-05-15] MEDS: Sertraline 100 MG Tablet PO (10:34)
[2022-05-15] MEDS: Pantoprazole Sodium 20 MG Tablet PO (10:34)
--- NOTE | 2022-05-15 10:59 | CASEMGMT ---
Discharge Unemployment Insurance Director Eleni from [facility] reached out. Patient has been accepted at [facility]. Pre-cert has been started. Nicole notified. Plan: [facility], Waiting pre-cert Jojo Belle Discharge Unemployment Insurance Director
--- NOTE | 2022-05-15 11:50 | CASEMGMT ---
DAISY CM in to discuss [employer]MAN form with patient. RN CM explained L[employer]MAN form, patient voiced understanding. Pt signed form and filed in chart. Pt provided with a copy of signed LIEBERMAN form. Patient had no further questions or concerns at this time.
--- NOTE | 2022-05-15 12:13 | CASEMGMT ---
Social Work SW in to notify pt of acceptance at [facility]. Pt appreciative. SW explained insurance authorization will need to be obtained before pt can transfer. Pt voiced understanding. PLAN: [facility], pending precert. BUSHRA Saunders
--- NOTE | 2022-05-15 12:14 | CASEMGMT ---
Social Work SW in to verify pt AD. Pt stated has both LW and HCPOA and named Elier Vincent, pt's attorney general, as agent. SW informed that these documents are not on file at [facility]. Pt voiced understanding. Stated would attempted to bring them on next visit. BUSHRA Saunders
--- NOTE | 2022-05-15 13:08 | CASEMGMT ---
Discharge Crusher Dry Ground Mica Eleni from [facility] reached out. Patient pre-cert has been obtained. SHAISTA Rivera notified. Plan: [facility], When medically ready. Jojo Belle Discharge Crusher [employer]
--- NOTE | 2022-05-15 13:09 | DS.PCM_ITS ---
Providers Date of Admission: 05/13/22 Primary Care Physician: Dr. Gerda Wilks MD Consultations 05/13/22 18:11 Consult: Podiatry Routine Consulting Provider: Niranjan Hartman Reason for Consult: right anl;e fracture EMERGENT Consult: No MD Notified: Yes Date Notified: 05/13/22 Time Notified: 17:32 Method of Notification: Verbal Reason For Visit: DEBILITY, RIGHT ANKLE FRACTURE Diagnosis Discharge Diagnosis (1) Ankle fracture, right: Status: Acute Code(s): S82.891A - Other fracture of right lower leg, initial encounter for closed fracture Plan: Acute fracture of the right ankle secondary to osteoporosis-patient will be placed in observation status on [facility] 3, she will be seen in consultation by podiatry, PT and OT will see the patient, she will need placement in a [facility]itentiary facility for short-term rehab services. 25-hydroxy vitamin D level 80.9--no replacement required. Podiatry consulted and recommending: CAM boot to be placed to the right foot so that she may continue protected weightbearing status with the assistance of her walker. Given her generalized weakness and history of multiple falls I do not feel she would do well with a nonweightbearing status.? No surgical intervention planned at this time. She may remain seated for showering purposes, CAM boot to be worn at all times for ambulation. Plan Chronic conditions * essential hypertension-patient will remain on her present medication * hyperlipidemia-patient will remain on her present medication * chronic depression-patient will remain on her home medication * chronic anxiety-patient is on clonazepam every 12 hours as needed anxiety, this will be continued * chronic use of anticoagulants-patient is on Xarelto, she has a past history of PE, on Xarelto will be continued * osteoporosis-patient will remain on calcium and vitamin D supplementation, her Fosamax will be continued VTE prophylaxis: not indicated as anticoagulated. Disposition: Patient will require going to a penitentiary facility. Medications at Discharge Home Medications alendronate 70 mg tablet 70 mg PO QWEEK 08/07/21 allopurinol 100 mg tablet 200 mg PO DAILY 08/07/21 amlodipine 5 mg tablet 5 mg PO DAILY 08/07/21 bupropion HCl 200 mg tablet,12 hr sustained-release 200 mg PO BID 08/07/21 fluticasone propionate 50 mcg/actuation nasal spray,suspension 1 spray intranasal DAILY 08/07/21 loratadine 10 mg tablet 10 mg PO DAILY 08/07/21 losartan 100 mg tablet 100 mg PO DAILY 08/07/21 omeprazole 20 mg capsule,delayed release 20 mg PO DAILY 08/07/21 potassium chloride 10 mEq tablet,extended release(part/cryst) (Klor-Con M) 10 meq PO DAILY 08/07/21 pravastatin 20 mg tablet 20 mg PO QHS 08/07/21 rivaroxaban 20 mg tablet (Xarelto) 20 mg PO QHS 08/07/21 sertraline 100 mg tablet 100 mg PO DAILY 08/07/21 torsemide 20 mg tablet 40 mg PO DAILY 08/07/21 acetaminophen 325 mg tablet (Tylenol) 650 mg PO Q6H PRN PRN Pain Score 1-10/Temp > 100.7 F #0 tabs 05/15/22 clonazepam 0.5 mg tablet 0.5 mg PO Q12H PRN PRN Anxiety 3 days #6 tabs 05/15/22 nystatin 100,000 unit/gram topical powder (Nyamyc) 1 applic topical BID #0 grams 05/15/22 tramadol 50 mg tablet 50 mg PO Q8H PRN pain 3 days #9 tabs 05/15/22 Hospital Course Operations None Procedures None Summary of Care Provided Minutes Spent on Discharge: 32 Weight / BMI Weight Weight: 71.3 kg Body Mass Index (BMI) 34.0 ABG / Lab / Microbiology Data Result Diagrams: 05/13/22 14:55 05/13/22 14:55 Laboratory: Laboratory Results - last 24 hr 05/15/22 05:01: Vitamin D 25-Hydroxy 80.9 Meaningful Use Info Meaningful Use Diagnoses (Choose all that apply): None applicable Discharge Plan Admission Admit Date/Time: 05/13/22 17:29 Primary Reason for Your Visit: right medial malleolus fracture Attending Provider: Israel Garza Primary Care Provider: Gerda Wilks Consulting Providers: Niranjan Hartman ; Osman Nance Discharge Orders/Prescriptions Prescriptions: New acetaminophen [Tylenol] 325 mg Tablet 650 mg PO Q6H PRN PRN (Reason: Pain Score 1-10/Temp > 100.7 F) Qty: 0 0RF nystatin [Nyamyc] 100,000 unit/gram Powder 1 applic topical BID Qty: 0 0RF Protocol: *Topical Application Instructions APPLICATION INSTRUCTIONS: groin Continued torsemide 20 mg tablet 40 mg PO DAILY alendronate 70 mg tablet 70 mg PO QWEEK sertraline 100 mg tablet 100 mg PO DAILY amlodipine 5 mg tablet 5 mg PO DAILY allopurinol 100 mg tablet 200 mg PO DAILY omeprazole 20 mg capsule,delayed release(DR/EC) 20 mg PO DAILY pravastatin 20 mg tablet 20 mg PO QHS losartan 100 mg tablet 100 mg PO DAILY fluticasone propionate 50 mcg/actuation spray,suspension 1 spray INTRANASAL DAILY loratadine 10 mg tablet 10 mg PO DAILY bupropion HCl 200 mg tablet sustained-release 12 hr 200 mg PO BID potassium chloride [Klor-Con M10] 10 mEq tablet,ER particles/crystals 10 meq PO DAILY Xarelto 20 mg tablet 20 mg PO QHS clonazepam 0.5 mg tablet 0.5 mg PO Q12H PRN PRN (Reason: Anxiety) 3 Days Qty: 6 0RF tramadol 50 mg tablet 50 mg PO Q8H PRN (Reason: pain) 3 Days Qty: 9 0RF Referrals / Follow Up: Gerda Wilks MD [Primary Care Provider] - Within 2 Weeks Niranjan Hartman DPM [Med Staff - Active Staff] - Within 1 Month Disposition Disposition (needs filled in before D/C Order can be placed): [facility] Charges/Coding Visit Charges OBSV E&M: 54827 Observation care discharge
--- NOTE | 2022-05-15 13:35 | CASEMGMT ---
Social Work SW in to notify pt of insurance authorization. Pt voiced understanding. SHAISTA explained feels pt is medically ready for discharge and can go to [facility] today. Pt voiced understanding. SW inquired about family or friends that SW can update on discharge plan for pt. Pt declined, stating I have no family. They don't contact me so they don't need to know anything about me. SW offered support and validated pt feelings. Pt agreeable for SHAISTA to call [facility] to update the facility of her SNF stay before returning home to [place]. SW called [facility], spoke to Deanna and provided update. Deanna voiced understanding. PLAN: [facility], for skilled level of care. BUSHRA Saunders
[2022-05-15 13:49] VITALS: BP 113/57; PULSE 88; RESP 18; TEMP 36.7; O2SAT 98
[2022-05-15] MEDS: clonazePAM 0.5 MG Tablet PO (14:33)
--- NOTE | 2022-05-15 15:07 | NURSING ---
Called report to [facility] and spoke with Swapna
--- NOTE | 2022-05-15 15:20 | CHAPLAIN ---
Type of Pastoral Visit _x_ Initial Visit ___ Follow-up Visit ___ On-call Visit ___ General Patient Visit ___ Spiritual Assessment ___ Family Conference ___ Bereavement ___ Rapid Response ___ Code Blue ___ Other (describe below) Pastoral Care Referral From _x__ Patient ___ Family ___ Nurse ___ Physician ___ Shape Carver ___ Pivot Maker ___ Other (describe below) Sacrament/Intervention _x__ Active listening ___ Anointing ___ Restorationism ___ Bereavement ___ Communion _x__ Saniya exploration ___ ___ Life review _x__ Prayer ___ Reconciliation ___ Sacrament of Sick _x__ Supportive presence ___ Wedding ___ Other (describe below) Pastoral Comments patient speaks about her shinto in the [employer] saniya and about her living arrangements at her [place]; pt welcomes presence and prayer support
--- NOTE | 2022-05-15 15:38 | CASEMGMT ---
Social Work SW completed 7000 convalescent form in the [employer] system. Set up cot transportation through [facility] for 6:30 pm. (No sooner time was available). Notified pt, pt nurse and [facility] of transport time. Faxed orders to [facility] via Wire. Placed copies on pt chart and sent originals with pt. Pt declined for SW to update family- They do not need to know my business. SW did obtain permission to update [facility]. Disposition: [facility], skilled, convalescent level of care. BUSHRA Saunders
== END 2022-05-15 17:25 | disposition skilled nursing facility (03) ==
LOC: ED 16:14 → MS3 16:53
PROVIDERS: Admitting Provider Internal Medicine; Emergency Provider Emergency Medicine; PCP Internal Medicine
DX: M80.071A Age-related osteoporosis with current pathological fracture, right ankle and foot, initial encounter for fracture (principal); Z87.891 Personal history of nicotine dependence; I10 Essential (primary) hypertension; S00.83XA Contusion of other part of head, initial encounter; E78.5 Hyperlipidemia, unspecified; R53.1 Weakness; Z79.83 Long term (current) use of bisphosphonates; Y93.89 Activity, other specified; R26.2 Difficulty in walking, not elsewhere classified; Z79.899 Other long term (current) drug therapy; Z79.51 Long term (current) use of inhaled steroids; Z79.01 Long term (current) use of anticoagulants; F32.A Depression, unspecified; Z86.718 Personal history of other venous thrombosis and embolism; W19.XXXA Unspecified fall, initial encounter; Y92.091 Bathroom in other non-institutional residence as the place of occurrence of the external cause; F41.9 Anxiety disorder, unspecified
CPT/HCPCS: 96375; 36415; 70450; 73610; 80048; 81001; 82306; 85025; 87426; 96374; 97110; 97162; 97166; 97530; 97535; 99218; 99285; A4216; G0378

== ENCOUNTER → 2022-06-04 | Outpatient (REF) | payer MEDICARE, MEDICAID, SELFPAY ==
[2022-06-05 10:32] LABS: Color, Urine Yellow (Yellow); Glucose, Dipstick Normal (Normal); Ketone-Dipstick Negative (Negative); Leukocyte Esterase-Dipstick 25 /ul (Negative); Nitrite-Dipstick Negative (Negative); Occult Blood-Urine 10 /ul (Negative); Protein-Dipstick Negative (Negative); Specific Gravity, Urine 1.015 (1.002-1.030); Urine Bilirubin Dipstick Negative (Negative); Urine Clarity Sl. Cloudy (Clear); Urine Urobilinogen Normal (Normal)
== END ==
LOC: OLS.SW1020 18:35
PROVIDERS: PCP Internal Medicine; Visit Provider Internal Medicine
DX: R41.82 Altered mental status, unspecified (principal)
CPT/HCPCS: 81002; 87086; 87088

== ENCOUNTER → 2022-06-06 | Outpatient (REF) | payer MEDICARE, MEDICAID, SELFPAY ==
[2022-06-06 08:46] LABS: Absolute Lymphocyte Count 1.27 X10^3/uL (0.83-4.51); Absolute Neutrophil Count 4.4 X10^3/uL (2.0-7.7); Basophil# 0.06 X10^3/uL; Basophil% 0.9 % (0-1); Eosinophil# 0.49 X10^3/uL; Eosinophils% 7.1 % (0-5); Hematocrit 33.8 % (37-47); Hemoglobin 10.6 g/dL (12.0-15.0); Lymphocyte # 1.27 X10^3/ul (0.83-4.51); Lymphocyte % 18.3 % (19-41); Mean Corp Hgb Conc 31.4 g/dL (32-36); Mean Corpuscular Hgb 30.5 pg (27.0-32.0); Mean Corpuscular Volume 97.4 fL (81-99); Mean Platelet Vol. 10.6 fl (6.2-12.0); Monocyte# 0.73 X10^3/uL; Monocyte% 10.5 % (0-10); NRBC Flagged by Analyzer 0 % (0-5); Neutrophil # 4.36 X10^3/uL (2.7-7.7); Neutrophil % 62.6 % (47-70); Platelet Count 280 K/mm3 (150-450); RBC Distribution Width CV 15.3 % (11.6-14.6); RBC Distribution Width SD 54.7 fl (35.1-43.9); Red Blood Count 3.47 M/mm3 (4.2-5.4)
[2022-06-06 08:55] LABS: Anion Gap 6 (5-15); BUN 20 mg/dL (7-18); BUN/Creat Ratio 22.9 RATIO (10-20); Calcium,Total 10.3 mg/dL (8.5-10.1); Chloride 108 mmol/L (98-107); Creatinine, Serum 0.87 mg/dL (0.55-1.02); EST Glomerular Filtration Rate 67 mL/min (>60); Est Glom Filt Rate - Afr Amer 81 mL/min (>60); Glucose 90 mg/dL (74-106); Magnesium 2.3 mg/dL (1.6-2.6); Potassium 4.5 mmol/L (3.5-5.1); Sodium Level 141 mmol/L (136-145)
== END ==
LOC: OLS.SW1020 05:00
PROVIDERS: PCP Internal Medicine; Visit Provider Internal Medicine
DX: I10 Essential (primary) hypertension (principal); I82.509 Chronic embolism and thrombosis of unspecified deep veins of unspecified lower extremity; M81.0 Age-related osteoporosis without current pathological fracture; D64.9 Anemia, unspecified; I65.29 Occlusion and stenosis of unspecified carotid artery; S82.891D Other fracture of right lower leg, subsequent encounter for closed fracture with routine healing
CPT/HCPCS: 36415; 80048; 83735; 85025

== ENCOUNTER → 2022-06-13 | Outpatient (REF) | payer MEDICARE, MEDICAID, SELFPAY ==
[2022-06-13 09:17] LABS: Absolute Lymphocyte Count 1.35 X10^3/uL (0.83-4.51); Absolute Neutrophil Count 4.7 X10^3/uL (2.0-7.7); Basophil# 0.06 X10^3/uL; Basophil% 0.8 % (0-1); Eosinophil# 0.43 X10^3/uL; Eosinophils% 5.8 % (0-5); Hematocrit 35.2 % (37-47); Lymphocyte # 1.35 X10^3/ul (0.83-4.51); Lymphocyte % 18.3 % (19-41); Mean Corp Hgb Conc 31.3 g/dL (32-36); Mean Corpuscular Hgb 30.4 pg (27.0-32.0); Mean Corpuscular Volume 97.2 fL (81-99); Mean Platelet Vol. 9.9 fl (6.2-12.0); Monocyte# 0.75 X10^3/uL; Monocyte% 10.2 % (0-10); NRBC Flagged by Analyzer 0 % (0-5); Neutrophil # 4.73 X10^3/uL (2.7-7.7); Neutrophil % 64.1 % (47-70); Platelet Count 281 K/mm3 (150-450); RBC Distribution Width CV 15.9 % (11.6-14.6); RBC Distribution Width SD 56.2 fl (35.1-43.9); Red Blood Count 3.62 M/mm3 (4.2-5.4); White Blood Count 7.4 K/mm3 (4.4-11.0)
[2022-06-13 09:28] LABS: Anion Gap 3 (5-15); BUN 19 mg/dL (7-18); Calcium,Total 10.8 mg/dL (8.5-10.1); Chloride 109 mmol/L (98-107); Creatinine, Serum 0.86 mg/dL (0.55-1.02); EST Glomerular Filtration Rate 68 mL/min (>60); Est Glom Filt Rate - Afr Amer 82 mL/min (>60); Glucose 97 mg/dL (74-106); Magnesium 2.6 mg/dL (1.6-2.6); Potassium 4.4 mmol/L (3.5-5.1); Sodium Level 141 mmol/L (136-145)
[2022-06-13 10:03] LABS: PTHIN 81.7 pg/mL (18.4-80.1)
== END ==
LOC: OLS.SW1020 06:10
PROVIDERS: PCP Internal Medicine; Visit Provider Internal Medicine
DX: I10 Essential (primary) hypertension (principal); D64.9 Anemia, unspecified
CPT/HCPCS: 36415; 80048; 82330; 83735; 83970; 85025

== ENCOUNTER 2022-06-28 23:44 | Emergency (ER) | payer MEDICARE, MEDICAID, SELFPAY ==
[2022-06-28 23:44] VITALS: BP 119/72; PULSE 89; RESP 16; TEMP 36.4; O2SAT 95; BMI 35.2
--- NOTE | 2022-06-29 00:02 | CT_ITS ---
EXAM: CT brain without contrast HISTORY: trauma TECHNIQUE: CT Head or Brain W/O Contrast Injection A radiation dose optimization technique was used for this scan. COMPARISON: CT brain 05/13/2022 LIMITATIONS: None. BRAIN: Normal keller/white matter differentiation. VENTRICLES: The ventricles and cortical sulci are mildly enlarged, similar compared to the prior. Bilateral periventricular hypoattenuation, nonspecific however likely represents chronic microvascular ischemic changes.. EXTRA-AXIAL SPACES: No hemorrhages, fluid collections, or masses. CALVARIUM/SKULL BASE: Normal. FACE/SINUSES: Mild left maxillary sinus mucosal thickening. SOFT TISSUES: Left foreign soft tissue swelling and a right forehead midline laceration. OTHER: None. CONCLUSION: No intracranial hemorrhage or depressed calvarial fracture. Sinus mucosal thickening, correlate sinusitis. Electronically Signed: James Navarrete MD at 1:15 EDT , CT/Brain/Head without Contrast IMPRESSION: undefined
--- NOTE | 2022-06-29 00:08 | CT_ITS ---
INDICATION: trauma/fall EXAMINATION: CT CERVICAL SPINE - CT Spine Cervical W/O Contrast Injection TECHNIQUE: Helically acquired images were obtained of the cervical spine. 2D reformatted images were reviewed. A radiation dose optimization technique was used for this scan. COMPARISON: CT C-spine 09/26/2021 FINDINGS: ALIGNMENT: Normal. VERTEBRAL BODIES: Nondisplaced fracture along the C6 anterior-inferior margin. DISC SPACES: Multilevel degenerative changes, similar compared to the prior.. POSTERIOR ELEMENTS: Normal. SPINAL CANAL: Normal. PARASPINAL SOFT TISSUES: Normal. LUNG APICES: Visualized portions normal. OTHER: None. CT/Spine Cervical without Contras IMPRESSION: Anterior inferior C6 nondisplaced vertebral body fracture, suggestive of hyperextension injury. N.B. : [facility]/AMARJIT Hancock, confirmed on 06/29/2022 01:26:17 (ET) that the healthcare facility has received the radiology report. Electronically Signed: James Navarrete MD at 1:19 EDT ,
[2022-06-29] MEDS: Lidocaine 2% /Epi 1:100 (20ml) 20 ML VIAL 5 ML INFILT (00:44)
--- NOTE | 2022-06-29 04:06 | ED.RN ---
SEE DOWN TIME CHARTING FROM [phone]
[2022-06-29 04:09] VITALS: BP 111/46; PULSE 95; RESP 15; O2SAT 93
--- NOTE | 2022-06-29 05:10 | ED.RN ---
DC INSTRUCTIONS REVIEWED WITH PATIENT. HEAD DRSG NOTED TO HAVE BLEEDING COMING THROUGH. UNWRAPPED DRSG AND PRESSURE HELD WITH 4X4. CONSISTENT OOZE NOTED. DR MILLER INFORMED. DR MILLER INJECTED MORE LIDO WITH EPI. PRESSURE HELD WITH 4X4 UNTIL BLEEDING SUBSIDED. HEAD REDRESSED WITH ABD AND CLING WRAP. PT CHLOÉ WELL. WILL CONTINUE TO MONITOR.
[2022-06-29 05:28] VITALS: BP 111/46; PULSE 95; RESP 15; O2SAT 94
--- NOTE | 2022-06-29 07:13 | EDS_ITS ---
HPI History of Present Illness Chief Complaint: Head Injury Informant: patient and EMS Onset/Context/Timing Onset: Today (JPTA) Mechanism/Context: Fall Associated Symptoms Associated Symptoms: Negative for Parasthesias, Weakness, Loss of function, Inability to ambulate or Loss of consciousness Narrative Narrative: Patient has an ankle fracture, is in an orthotic boot, and residing in a [facility] for rehab, she lost her balance because of the boot and fell forward hitting her head, sustaining laceration to the scalp and face, she is on Xarelto and there is lots of bleeding prior to arrival here and upon arrival. She denies any systemic symptoms, just pain at the laceration sites. Denies any neck or back pain. [facility] Medical History Depression DVT (deep venous thrombosis) GERD (gastroesophageal reflux disease) Hyperlipidemia Hypertension Home Medications alendronate 70 mg tablet 70 mg PO QWEEK 08/07/21 [History Last Taken Unknown] allopurinol 100 mg tablet 200 mg PO DAILY 08/07/21 [History Last Taken Unknown] amlodipine 5 mg tablet 5 mg PO DAILY 08/07/21 [History Last Taken Unknown] bupropion HCl 200 mg tablet,12 hr sustained-release 200 mg PO BID 08/07/21 [History Last Taken Unknown] fluticasone propionate 50 mcg/actuation nasal spray,suspension 1 spray intranasal DAILY 08/07/21 [History Last Taken Unknown] loratadine 10 mg tablet 10 mg PO DAILY 08/07/21 [History Last Taken Unknown] losartan 100 mg tablet 100 mg PO DAILY 08/07/21 [History Last Taken Unknown] omeprazole 20 mg capsule,delayed release 20 mg PO DAILY 08/07/21 [History Last Taken Unknown] potassium chloride 10 mEq tablet,extended release(part/cryst) (Klor-Con M) 10 meq PO DAILY 08/07/21 [History Last Taken Unknown] pravastatin 20 mg tablet 20 mg PO QHS 08/07/21 [History Last Taken Unknown] rivaroxaban 20 mg tablet (Xarelto) 20 mg PO QHS 08/07/21 [History Last Taken Unknown] sertraline 100 mg tablet 100 mg PO DAILY 08/07/21 [History Last Taken Unknown] torsemide 20 mg tablet 40 mg PO DAILY 08/07/21 [History Last Taken Unknown] acetaminophen 325 mg tablet (Tylenol) 650 mg PO Q6H PRN PRN Pain Score 1-10/Temp > 100.7 F #0 tabs 05/15/22 [Rx Last Taken Unknown] clonazepam 0.5 mg tablet 0.5 mg PO Q12H PRN PRN Anxiety 3 days #6 tabs 05/15/22 [Rx Last Taken Unknown] nystatin 100,000 unit/gram topical powder (Nyamyc) 1 applic topical BID #0 grams 05/15/22 [Rx Last Taken Unknown] tramadol 50 mg tablet 50 mg PO Q8H PRN pain 3 days #9 tabs 05/15/22 [Rx Last Taken Unknown] Allergy/AdvReac Type Severity Reaction Status Date / Time Latex, Natural Rubber AdvReac Rash Verified 06/28/22 23:48 Social History Smoking Status: Former smoker ROS ROS ED Constitutional Constitutional ED: Denies chills or fever(s) Eyes Eyes: Denies blurry vision, change in vision or diplopia ENT ENT ED: Reports facial pain and other Details: Facial pain and forehead only ; Denies ear pain, epistaxis or rhinorrhea Cardiovascular Cardiovascular: Denies chest pain or palpitations Respiratory/Chest Respiratory/Chest: Denies cough or dyspnea Gastrointestinal Gastrointestinal: Denies abdominal pain, diarrhea, melena, nausea or vomiting Genitourinary Genitourinary ED: Denies dysuria or hematuria Musculoskeletal Musculoskeletal: Denies back pain or neck pain Integumentary Reports Abrasions and laceration; Denies abscess or rash Neurologic Neurologic: Denies confusion, headache(s), paresthesias or weakness EXAM Physical Exam Const Vital Signs: 06/28/22 23:44 06/28/22 23:51 06/29/22 04:09 Temperature 97.6 F L Temperature Source Temporal Pulse Rate 89 95 Respiratory Rate 16 15 Respiratory Effort Normal Respiratory Depth Normal Respiratory Pattern Normal Blood Pressure 119/72 111/46 L Blood Pressure Mean 87 Pulse Ox 95 93 Oxygen Delivery Method Room Air Room Air 06/29/22 05:28 Temperature Temperature Source Pulse Rate 95 Respiratory Rate 15 Respiratory Effort Respiratory Depth Respiratory Pattern Blood Pressure 111/46 L Blood Pressure Mean Pulse Ox 94 Oxygen Delivery Method Positive well nourished and well developed General Appearance ED: well developed and NAD HEENT Reports TM's clear and nasal mucous membranes and turbinates normal HEENT Narrative: Tender left superior orbital brim/eyebrow where there is traumatic hematoma with some ecchymosis/purpura and a small 0.5 cm laceration medially within the eyebrow. Tender right frontal scalp laceration/hematoma which is actively briskly oozing with venous blood. No crepitance or depression. Face and Sinus: facial tenderness Tympanic Membrane ED: Yes TM's clear Eyes PERRL and EOMs intact bilaterally Visual Acuity: other Other Details: no entrapment or pain with extraocular movements Neck full ROM and supple General: Negative for tenderness Chest Wall inspection of chest normal and palpation of chest normal Chest: symmetrical chest wall rise; Negative for crepitus or tenderness Resp normal respiratory effort and clear to auscultation bilaterally Percussion: other equal BS bilat Cardio no murmurs Rate: regular rate Rhythm: regular rhythm GI normal to inspection, nondistended, normoactive bowel sounds, soft to palpation and non-tender Back/Spine normal ROM Cervical Spine: Negative for cervical spine tenderness Thoracic Spine / Upper Back: Negative for thoracic spinal tenderness Lumbar Spine / Lower Back: Negative for lumbar spinal tenderness Extremity normal to inspection and full ROM Extremity Narrative: Right lower extremity in orthotic boot General Extremety ED: Negative for tenderness Neuro oriented x3, CN's II-XII intact bilaterally, moves all extremities, no focal motor deficits and no sensory deficits noted Emery Coma Scale: document GCS findings Spontaneous Obeys Commands Oriented 15 Sensorium / Orientation: awake and alert Psych mental status grossly normal and thought process normal Skin no wounds Lesions: no lesions Rashes: no rashes PROC Procedures Lacerations Right frontal scalp: Length: 5 cm Depth: Sub Q Shape: L-shaped Prep: Sterile Conditions and Chlorhexadine Laceration repair: Irrigated, Lidocaine with epi (2%, total 9 cc, with initial 5 cc then 3 cc 1 hour later, then 1 cc another hour later to assist with hemostasis) and Local Irrigated (ml): 120 Number of Sutures/Paxton: 7 (Skin paxton) Left eyebrow: Length: 0.5 cm Depth: Skin Shape: Linear Prep: Sterile Conditions and Chlorhexadine Laceration repair: Irrigated (Manually scrubbed with chlorhexidine), Lidocaine with epi (0.5cc, 2%), Local and Skin sutures Number of Sutures/[place]: 1 Suture Information: Ethilon, Simple and 6-0 Other Procedures Procedure(s): Hemorrhage control: Significant bleeding from right frontal scalp laceration. Intermittently injected lidocaine with epinephrine see the procedure note above, as well as later with the last dose, placing a small piece of Surgifoam along with a pressure dressing with a wrap, obtaining good hemostasis MDM MDM MDM Narrative Medical decision making narrative: Patient was seen upon arrival, and I immediately set up suture repair set up to provide hemorrhage control since she was bleeding so much from the scalp wound. See the procedure note. After placing a pressure dressing with Surgifoam, ended up getting good hemostasis there. Obtain some blood count later after the patient equilibrated a while after the repair, and they looked good with hemoglobin 11.2. CT of the head and cervical spine were obtained. The head was negative for nothing acute, cervical spine shows what appears to be an acute nondisplaced C6 vertebral body fracture at the anterior inferior margin suggesting a hyperextension injury, and this is consistent with the patient's mechanism of injury to her face. I discussed these results with Dr. Parikh who is on for spine, he agrees that the patient does not need to be immobilized in a collar or admitted for this since she is neurologically intact and this is a stable fracture, she can be placed in a soft collar and follow-up as an outpatient, which is what we did here. Lab Data Attestation: I reviewed the patient's lab results. Labs: Laboratory Tests 06/29/22 Range/Units 02:05 WBC 13.9 H (4.4-11.0) K/mm3 RBC 3.73 L (4.2-5.4) M/mm3 Hgb 11.2 L (12.0-15.0) g/dL Hct 34.3 L (37-47) % MCV 92.0 (81-99) fL MCH 30.0 (27.0-32.0) pg MCHC 32.7 D (32-36) g/dL RDW Std Deviation 51.9 H (35.1-43.9) fl RDW Coeff of Michele 15.6 H (11.6-14.6) % Plt Count 311 (150-450) K/mm3 MPV 9.9 (6.2-12.0) fl Immature Gran % (Auto) 2.000 H (0.0-0.9) % Neut % (Auto) 77.5 H (47-70) % Lymph % (Auto) 10.4 L (19-41) % [place] % (Auto) 7.1 (0-10) % Eos % (Auto) 2.5 (0-5) % Baso % (Auto) 0.5 (0-1) % Absolute Neuts (auto) 10.7 H (2.0-7.7) X10^3/uL Absolute Lymphs (auto) 1.44 (0.83-4.51) X10^3/uL Nucleated RBC % 0 (0-5) % Radiography Diagnostic Testing: Clinical Impression(s) from Imaging Studies Brain CT 06/29/22 00:02 IMPRESSION: undefined Cervical Spine CT 06/29/22 00:08 IMPRESSION: Anterior inferior C6 nondisplaced vertebral body fracture, suggestive of hyperextension injury. N.B. : Samuel Street/Karissa OT, confirmed on 06/29/2022 01:26:17 (ET) that the healthcare facility has received the radiology report. 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, Discussing w/Consultants and Performing Direct Patient Care at Bedside Discharge Plan Triage Chief Complaint: Head Injury ED Provider: Tha Baron Dx/Rx/DC Orders Clinical Impression: Laceration of scalp, Facial laceration, Fracture of C6 vertebra, closed, Anticoagulated, Accidental fall, Hemorrhage from wound Prescriptions: No Action torsemide 20 mg tablet 40 mg PO DAILY alendronate 70 mg tablet 70 mg PO QWEEK sertraline 100 mg tablet 100 mg PO DAILY amlodipine 5 mg tablet 5 mg PO DAILY allopurinol 100 mg tablet 200 mg PO DAILY omeprazole 20 mg capsule,delayed release(DR/EC) 20 mg PO DAILY pravastatin 20 mg tablet 20 mg PO QHS losartan 100 mg tablet 100 mg PO DAILY fluticasone propionate 50 mcg/actuation spray,suspension 1 spray INTRANASAL DAILY loratadine 10 mg tablet 10 mg PO DAILY bupropion HCl 200 mg tablet sustained-release 12 hr 200 mg PO BID potassium chloride [Klor-Con M10] 10 mEq tablet,ER particles/crystals 10 meq PO DAILY Xarelto 20 mg tablet 20 mg PO QHS acetaminophen [Tylenol] 325 mg Tablet 650 mg PO Q6H PRN PRN (Reason: Pain Score 1-10/Temp > 100.7 F) Qty: 0 0RF nystatin [Nyamyc] 100,000 unit/gram Powder 1 applic topical BID Qty: 0 0RF Protocol: *Topical Application Instructions APPLICATION INSTRUCTIONS: groin clonazepam 0.5 mg tablet 0.5 mg PO Q12H PRN PRN (Reason: Anxiety) 3 Days Qty: 6 0RF tramadol 50 mg tablet 50 mg PO Q8H PRN (Reason: pain) 3 Days Qty: 9 0RF Primary Care Provider: Gerda Wilks Referrals: Gerda Wilks MD [Primary Care Provider] - Jaspreet Parikh DO [Med Staff - Active Staff] - As soon as possible Activity Restrictions/Additional Instructions: (Preprinted discharge instructions given during downtime) Disposition Disposition: Home, Self Care Discharge Location: [facility] Discharge Date/Time: 06/29/22 07:14
[2022-06-29 07:16] LABS: Absolute Lymphocyte Count 1.44 X10^3/uL (0.83-4.51); Absolute Neutrophil Count 10.7 X10^3/uL (2.0-7.7); Basophil# 0.07 X10^3/uL; Basophil% 0.5 % (0-1); Eosinophil# 0.35 X10^3/uL; Eosinophils% 2.5 % (0-5); Hematocrit 34.3 % (37-47); Hemoglobin 11.2 g/dL (12.0-15.0); Lymphocyte # 1.44 X10^3/ul (0.83-4.51); Lymphocyte % 10.4 % (19-41); Mean Corp Hgb Conc 32.7 g/dL (32-36); Mean Platelet Vol. 9.9 fl (6.2-12.0); Monocyte# 0.99 X10^3/uL; Monocyte% 7.1 % (0-10); NRBC Flagged by Analyzer 0 % (0-5); Neutrophil # 10.74 X10^3/uL (2.7-7.7); Neutrophil % 77.5 % (47-70); Platelet Count 311 K/mm3 (150-450); RBC Distribution Width CV 15.6 % (11.6-14.6); RBC Distribution Width SD 51.9 fl (35.1-43.9); Red Blood Count 3.73 M/mm3 (4.2-5.4); White Blood Count 13.9 K/mm3 (4.4-11.0)
== END 2022-06-29 07:14 | disposition home or self-care (01) ==
PROVIDERS: Emergency Provider Emergency Medicine; PCP Internal Medicine; Visit Provider Emergency Medicine
DX: S01.01XA Laceration without foreign body of scalp, initial encounter (principal); S12.501A Unspecified nondisplaced fracture of sixth cervical vertebra, initial encounter for closed fracture; S82.899A Other fracture of unspecified lower leg, initial encounter for closed fracture; S01.81XA Laceration without foreign body of other part of head, initial encounter; W19.XXXA Unspecified fall, initial encounter; I10 Essential (primary) hypertension; E78.5 Hyperlipidemia, unspecified; Z87.891 Personal history of nicotine dependence
CPT/HCPCS: 12002; 70450; 72125; 85025; 99284

== ENCOUNTER → 2022-07-03 | Outpatient (REF) | payer MEDICARE, MEDICAID, SELFPAY ==
[2022-07-03 08:56] LABS: Absolute Lymphocyte Count 1.36 X10^3/uL (0.83-4.51); Absolute Neutrophil Count 7.9 X10^3/uL (2.0-7.7); Basophil# 0.07 X10^3/uL; Basophil% 0.7 % (0-1); Eosinophil# 0.28 X10^3/uL; Eosinophils% 2.6 % (0-5); Hematocrit 33.8 % (37-47); Hemoglobin 10.6 g/dL (12.0-15.0); Lymphocyte # 1.36 X10^3/ul (0.83-4.51); Lymphocyte % 12.8 % (19-41); Mean Corp Hgb Conc 31.4 g/dL (32-36); Mean Corpuscular Volume 92.6 fL (81-99); Mean Platelet Vol. 10.5 fl (6.2-12.0); Monocyte# 0.88 X10^3/uL; Monocyte% 8.3 % (0-10); NRBC Flagged by Analyzer 0 % (0-5); Neutrophil # 7.89 X10^3/uL (2.7-7.7); Neutrophil % 74.6 % (47-70); Platelet Count 323 K/mm3 (150-450); RBC Distribution Width CV 15.9 % (11.6-14.6); RBC Distribution Width SD 54.2 fl (35.1-43.9); Red Blood Count 3.65 M/mm3 (4.2-5.4); White Blood Count 10.6 K/mm3 (4.4-11.0)
[2022-07-03 09:34] LABS: Anion Gap 7 (5-15); BUN 17 mg/dL (7-18); BUN/Creat Ratio 19.8 RATIO (10-20); Calcium,Total 10.8 mg/dL (8.5-10.1); Chloride 104 mmol/L (98-107); Creatinine, Serum 0.86 mg/dL (0.55-1.02); EST Glomerular Filtration Rate 68 mL/min (>60); Est Glom Filt Rate - Afr Amer 83 mL/min (>60); Glucose 105 mg/dL (74-106); Potassium 4.2 mmol/L (3.5-5.1); Sodium Level 136 mmol/L (136-145)
[2022-07-04 05:22] LABS: Magnesium 2.6 mg/dL (1.6-2.6)
== END ==
LOC: OLS.SW 05:00
PROVIDERS: PCP Internal Medicine; Visit Provider Internal Medicine
DX: S82.891D Other fracture of right lower leg, subsequent encounter for closed fracture with routine healing (principal); R29.6 Repeated falls; U07.1 COVID-19; D64.9 Anemia, unspecified; I10 Essential (primary) hypertension
CPT/HCPCS: 36415; 80048; 83735; 85025; 86140

== ENCOUNTER 2022-07-08 10:59 | Observation (INO) | payer MEDICARE, MEDICAID, SELFPAY ==
[2022-07-08] VITALS (8 sets, daily range): BP systolic 93–126; BP diastolic 52–84; PULSE 85–91; RESP 16–20; TEMP 36.4–37.2; O2SAT 93–95; BMI 35.4; BMI 34.2
--- NOTE | 2022-07-08 11:05 | EKG12_ITS ---
Test Reason : GI BLEED Blood Pressure : / mmHG Vent. Rate : 089 BPM Atrial Rate : 089 BPM P-R Int : 144 ms QRS Dur : 086 ms QT Int : 364 ms P-R-T Axes : 050 001 033 degrees QTc Int : 442 ms Normal sinus rhythm Normal ECG Confirmed by KIAH FELICIANO, RAQUEL ([id number]), social media editor PAULY ADAMS ([id number]) on 07/11/2022 11:03:46 AM Referred By: Confirmed By:RAQUEL DUPONT MD
--- NOTE | 2022-07-08 11:07 | EX.ED.DYSGE1 ---
HPI History of Present Illness Chief Complaint: GI Bleed Informant: patient and EMS Narrative Narrative: Patient has had 3 or 4 large bloody bowel movements since last night. She is on Xarelto for history of DVTs, her last dose was last night and she takes it once daily. She feels fine otherwise. She denies any abdominal pain, nausea, vomiting. She had a fall 1 week ago and was seen here, diagnosed with a C6 fracture and was just released from her collar, and she broke her right ankle which she is still in an orthotic boot for. [facility] Medical History (Updated 07/08/22 @ 13:[address] Tha Baron MD) Age-related osteoporosis without current pathological fracture Anxiety disorder, unspecified Depression DVT (deep venous thrombosis) GERD (gastroesophageal reflux disease) Hyperlipidemia Hypertension Other fracture of right lower leg, subsequent encounter for closed fracture with routine healing Presbyopia Unspecified nondisplaced fracture of sixth cervical vertebra, initial encounter for closed fracture Weakness Home Medications alendronate 70 mg tablet 70 mg PO QWEEK 08/07/21 [History Last Taken Unknown] allopurinol 100 mg tablet 200 mg PO DAILY 08/07/21 [History Last Taken Unknown] amlodipine 5 mg tablet 5 mg PO DAILY 08/07/21 [History Last Taken Unknown] bupropion HCl 200 mg tablet,12 hr sustained-release 200 mg PO BID 08/07/21 [History Last Taken Unknown] fluticasone propionate 50 mcg/actuation nasal spray,suspension 1 spray intranasal DAILY 08/07/21 [History Last Taken Unknown] loratadine 10 mg tablet 10 mg PO DAILY 08/07/21 [History Last Taken Unknown] losartan 100 mg tablet 100 mg PO DAILY 08/07/21 [History Last Taken Unknown] omeprazole 20 mg capsule,delayed release 20 mg PO DAILY 08/07/21 [History Last Taken Unknown] potassium chloride 10 mEq tablet,extended release(part/cryst) (Klor-Con M) 10 meq PO DAILY 08/07/21 [History Last Taken Unknown] pravastatin 20 mg tablet 20 mg PO QHS 08/07/21 [History Last Taken Unknown] rivaroxaban 20 mg tablet (Xarelto) 20 mg PO QHS 08/07/21 [History Last Taken Unknown] sertraline 100 mg tablet 100 mg PO DAILY 08/07/21 [History Last Taken Unknown] torsemide 20 mg tablet 10 mg PO DAILY 08/07/21 [History Last Taken Unknown] acetaminophen 325 mg tablet (Tylenol) 650 mg PO Q6H PRN PRN Pain Score 1-10/Temp > 100.7 F #0 tabs 05/15/22 [Rx Last Taken Unknown] clonazepam 0.5 mg tablet 0.5 mg PO Q12H PRN PRN Anxiety 3 days #6 tabs 05/15/22 [Rx Last Taken Unknown] nystatin 100,000 unit/gram topical powder (Nyamyc) 1 applic topical BID #0 grams 05/15/22 [Rx Last Taken Unknown] tramadol 50 mg tablet 50 mg PO Q6H PRN PRN Pain 07/08/22 [History Last Taken Unknown] Allergy/AdvReac Type Severity Reaction Status Date / Time Latex, Natural Rubber AdvReac Rash Verified 07/08/22 11:00 Social History Smoking Status: Former smoker ROS ROS ED Constitutional Constitutional ED: Denies chills or fever(s) Eyes Eyes: Denies change in vision or diplopia ENT ENT ED: Denies rhinorrhea or sore throat Cardiovascular Cardiovascular: Denies chest pain or palpitations Respiratory/Chest Respiratory/Chest: Denies cough or dyspnea Gastrointestinal Gastrointestinal: Reports hematochezia; Denies abdominal pain, diarrhea, nausea or vomiting Genitourinary Genitourinary ED: Denies dysuria or hematuria Musculoskeletal Musculoskeletal: Denies back pain or neck pain Integumentary Denies abscess or rash Neurologic Neurologic: Denies headache(s), paresthesias or weakness Psychiatric Psychiatric: Denies anxiety or suicidal thoughts EXAM Physical Exam Const Vital Signs: 07/08/22 11:00 Temperature 97.7 F L Temperature Source Temporal Pulse Rate 89 Respiratory Rate 16 Blood Pressure 93/68 Blood Pressure Mean 76 Pulse Ox 94 Oxygen Delivery Method Room Air Positive well nourished and well developed General Appearance ED: well developed and NAD HEENT Reports moist mucous membranes normocephalic and atraumatic Eyes PERRL and EOMs intact bilaterally Neck full ROM and supple Resp normal respiratory effort and clear to auscultation bilaterally Cardio regular rate, regular rhythm and no murmurs GI non-tender and non-distended GI Narrative: On rectal exam, solid stool was palpable, there is a trace amount of blood grossly on digital rectal, and no pooling or active bleeding. Nontender. No fissure. Auscultation: hyperactive bowel sounds Palpation: soft Narrative: Normal external inspection. Back/Spine no CVA tenderness General Back: other FROM Extremity normal to inspection Extremity Narrative: Orthotic boot right ankle, neurovascularly intact distally at toes General Extremety ED: Negative for edema, pulses abnormal or tenderness General Extremity: Negative for edema or pulses abnormal Neuro oriented x3, CN's II-XII intact bilaterally and no sensory deficits noted Sensorium / Orientation: awake and alert Motor Exam: strength 5/5 throughout Psych mental status grossly normal Skin no rashes or lesions noted and no wounds MDM MDM MDM Narrative Medical decision making narrative: Blood pressure borderline, patient is on antihypertensive but no beta-blockers, she is not tachycardic. She is clinically and hemodynamically stable, hemoglobin is 10.7 similar to her prior read recently, and she is not actively bleeding but she is on Xarelto with her last dose less than 24 hours ago, and given that and her age I think she should be admitted to the hospital for further observation. Discussed with Dr. Li who was comfortable with admission to the hospitalist and consultation if needed, we do not have gastroenterology on-call this weekend. Of note, I saw this patient in just over 1 week ago, when we repaired her left eyebrow with 1 suture and her frontal scalp/forehead with 7 araceli, this was done emergently due to patient actively hemorrhaging from that wound, which is why araceli were used. I remove them all since they are beyond when they should have been removed by a couple days, and the wounds appear to be well-healed without signs of infection. Lab Data Attestation: I reviewed the patient's lab results. Labs: Laboratory Results - last 24 hr 07/08/22 07/08/22 07/08/22 11:20 11:20 11:20 WBC 8.0 RBC 3.75 L Hgb 10.7 L Hct 34.9 L MCV 93.1 MCH 28.5 MCHC 30.7 L RDW Std Deviation 53.6 H RDW Coeff of Michele 15.7 H Plt Count 356 MPV 9.6 Immature Gran % (Auto) 0.400 Neut % (Auto) 73.1 H Lymph % (Auto) 14.5 L [place] % (Auto) 8.6 Eos % (Auto) 2.6 Baso % (Auto) 0.8 Absolute Neuts (auto) 5.8 Absolute Lymphs (auto) 1.16 Nucleated RBC % 0 Sodium 139 Potassium 4.1 Chloride 107 Carbon Dioxide 26.0 Anion Gap 6 BUN 17 Creatinine 0.77 Estim Creat Clear Calc 57.09 Est GFR (MDRD) Af Amer 94 Est GFR (MDRD) Non-Af 77 BUN/Creatinine Ratio 22.0 H Glucose 90 Calcium 10.5 H Total Bilirubin 0.20 AST 9 L ALT 17 Alkaline Phosphatase 63 Total Protein 7.5 Albumin 2.7 L Globulin 4.8 H Albumin/Globulin Ratio 0.6 L Blood Type A POSITIVE Antibody Screen NEGATIVE Rhythm Strip Rhythm Strip: Sinus Rhythm Rate: 85 Ectopy: None EKG Initial EKG: Attestation: I personally reviewed and interpreted this EKG as follows: Interpretation: Sinus Rhythm and No Acute Injury Pattern Comments: Normal EKG Prior EKG tracings: available for review Prior: Unchanged Procedures Other Procedures Procedure(s): Staple removal: Area prepped with isopropanol, then #7 arcaeli removed from patient's frontal scalp/forehead, no dehiscence, no signs of infection, no bleeding or complications. Suture removal: After prepping with isopropanol, a single interrupted nylon suture was removed with a #11 blade from her left eyebrow, no complications or bleeding or wound dehiscence. Discharge Plan Dx/Rx/DC Orders Clinical Impression: Acute lower gastrointestinal bleeding, Anticoagulated, Visit for suture removal Disposition Disposition: [facility]
[2022-07-08 11:29] LABS: Absolute Lymphocyte Count 1.16 X10^3/uL (0.83-4.51); Absolute Neutrophil Count 5.8 X10^3/uL (2.0-7.7); Basophil# 0.06 X10^3/uL; Basophil% 0.8 % (0-1); Eosinophil# 0.21 X10^3/uL; Eosinophils% 2.6 % (0-5); Hematocrit 34.9 % (37-47); Hemoglobin 10.7 g/dL (12.0-15.0); Lymphocyte # 1.16 X10^3/ul (0.83-4.51); Lymphocyte % 14.5 % (19-41); Mean Corp Hgb Conc 30.7 g/dL (32-36); Mean Corpuscular Hgb 28.5 pg (27.0-32.0); Mean Corpuscular Volume 93.1 fL (81-99); Mean Platelet Vol. 9.6 fl (6.2-12.0); Monocyte# 0.69 X10^3/uL; Monocyte% 8.6 % (0-10); NRBC Flagged by Analyzer 0 % (0-5); Neutrophil # 5.84 X10^3/uL (2.7-7.7); Neutrophil % 73.1 % (47-70); Platelet Count 356 K/mm3 (150-450); RBC Distribution Width CV 15.7 % (11.6-14.6); RBC Distribution Width SD 53.6 fl (35.1-43.9); Red Blood Count 3.75 M/mm3 (4.2-5.4)
[2022-07-08 12:08] LABS: ALB/GLOB Ratio 0.6 RATIO (0.9-2.4); AST(SGOT) 9 U/L (15-37); Alanine Aminotransfer ALT/SGPT 17 U/L (13-56); Albumin, Serum 2.7 g/dL (3.2-5.0); Alkaline Phosphatase 63 U/L (45-117); Anion Gap 6 (5-15); BUN 17 mg/dL (7-18); Calcium,Total 10.5 mg/dL (8.5-10.1); Chloride 107 mmol/L (98-107); Creatinine, Serum 0.77 mg/dL (0.55-1.02); EST Glomerular Filtration Rate 77 mL/min (>60); Est Glom Filt Rate - Afr Amer 94 mL/min (>60); Estimated Creatinine Clearance 57.09 ml/min; Globulin 4.8 g/dL (2.2-4.2); Glucose 90 mg/dL (74-106); Potassium 4.1 mmol/L (3.5-5.1); Protein, Total 7.5 g/dL (6.4-8.2); Sodium Level 139 mmol/L (136-145)
[2022-07-08] MEDS: 0.9% Normal Saline 1,000 ML 100 ML IV ×2 (12:32→23:54)
--- NOTE | 2022-07-08 12:58 | PCM.HP.STD ---
HPI - General General Date of Admission: 07/08/22 Date of Service: 07/08/22 Chief Complaint: Rectal bleeding?1 day HPI Narrative CLAUS MCKEON, is a 77 F who presents with the above. Patient 77-year-old female with past medical history of DVT/PE, hypertension, hyperlipoidemia, on Xarelto who comes in with bloody bowel movements, noticed last night. Patient is reported to have had 3-4 bloody bowel movements. Patient last took her Xarelto yesterday. Patient was recently seen in the ED on 06/29/22 after a fall in which she sustains Vitals in the ED showed BP 93/68, HR 89, RR 16, Temp 97.7F, Spo2 94%. Her admitting blood work showed WBC 8.0, Hb 10.4, Plt 356 PFSH Medical History Age-related osteoporosis without current pathological fracture Anxiety disorder, unspecified Depression DVT (deep venous thrombosis) GERD (gastroesophageal reflux disease) Hyperlipidemia Hypertension Other fracture of right lower leg, subsequent encounter for closed fracture with routine healing Presbyopia Unspecified nondisplaced fracture of sixth cervical vertebra, initial encounter for closed fracture Weakness Home Medications alendronate 70 mg tablet 70 mg PO MO 08/07/21 [History Last Taken Unknown] allopurinol 100 mg tablet 200 mg PO DAILY 08/07/21 [History Last Taken Unknown] amlodipine 5 mg tablet 5 mg PO DAILY 08/07/21 [History Last Taken Unknown] bupropion HCl 200 mg tablet,12 hr sustained-release 200 mg PO BID 08/07/21 [History Last Taken Unknown] fluticasone propionate 50 mcg/actuation nasal spray,suspension 1 spray intranasal DAILY 08/07/21 [History Last Taken Unknown] loratadine 10 mg tablet 10 mg PO DAILY 08/07/21 [History Last Taken Unknown] losartan 100 mg tablet 100 mg PO DAILY 08/07/21 [History Last Taken Unknown] omeprazole 20 mg capsule,delayed release 20 mg PO DAILY 08/07/21 [History Last Taken Unknown] potassium chloride 10 mEq tablet,extended release(part/cryst) (Klor-Con M) 10 meq PO DAILY 08/07/21 [History Last Taken Unknown] pravastatin 20 mg tablet 20 mg PO QHS 08/07/21 [History Last Taken Unknown] rivaroxaban 20 mg tablet (Xarelto) 20 mg PO QHS 08/07/21 [History Last Taken 07/07/22 20] sertraline 100 mg tablet 100 mg PO DAILY 08/07/21 [History Last Taken Unknown] torsemide 20 mg tablet 10 mg PO DAILY 08/07/21 [History Last Taken Unknown] acetaminophen 325 mg tablet (Tylenol) 650 mg PO Q6H PRN PRN Pain Score 1-10/Temp > 100.7 F #0 tabs 05/15/22 [Rx Last Taken Unknown] clonazepam 0.5 mg tablet 0.5 mg PO Q12H PRN PRN Anxiety 3 days #6 tabs 05/15/22 [Rx Last Taken Unknown] nystatin 100,000 unit/gram topical powder (Nyamyc) 1 applic topical BID #0 grams 05/15/22 [Rx Last Taken Unknown] tramadol 50 mg tablet 50 mg PO Q6H PRN PRN Pain 07/08/22 [History Last Taken Unknown] Allergy/AdvReac Type Severity Reaction Status Date / Time Latex, Natural Rubber AdvReac Rash Verified 07/08/22 11:00 Social History (Updated 07/08/22 @ 14:44 by Qiana Breaux) housing: assisted living facility Smoking Status: Former smoker Vital Signs Vital Signs Vital Signs: 07/08/22 11:00 Temperature 97.7 F L Temperature Source Temporal Pulse Rate 89 Respiratory Rate 16 Blood Pressure 93/68 Blood Pressure Mean 76 Pulse Ox 94 Oxygen Delivery Method Room Air Weight Weight: 74.4 kg Body Mass Index (BMI) 35.4 Results Lab / Micro Data Result Diagrams: 07/08/22 14:29 07/08/22 11:20 Labs: Laboratory Results - last 24 hr 07/08/22 11:20: WBC 8.0, RBC 3.75 L, Hgb 10.7 L, Hct 34.9 L, MCV 93.1, MCH 28.5, MCHC 30.7 L, RDW Std Deviation 53.6 H, RDW Coeff of Michele 15.7 H, Plt Count 356, MPV 9.6, Immature Gran % (Auto) 0.400, Neut % (Auto) 73.1 H, Lymph % (Auto) 14.5 L, [place] % (Auto) 8.6, Eos % (Auto) 2.6, Baso % (Auto) 0.8, Absolute Neuts (auto) 5.8, Absolute Lymphs (auto) 1.16, Nucleated RBC % 0 07/08/22 11:20: Sodium 139, Potassium 4.1, Chloride 107, Carbon Dioxide 26.0, Anion Gap 6, BUN 17, Creatinine 0.77, Estim Creat Clear Calc 57.09, Est GFR (MDRD) Af Amer 94, Est GFR (MDRD) Non-Af 77, BUN/Creatinine Ratio 22.0 H, Glucose 90, Calcium 10.5 H, Total Bilirubin 0.20, AST 9 L, ALT 17, Alkaline Phosphatase 63, Total Protein 7.5, Albumin 2.7 L, Globulin 4.8 H, Albumin/Globulin Ratio 0.6 L 07/08/22 11:20: Blood Type A POSITIVE, Antibody Screen NEGATIVE Rhythm Strip Rhythm Strip: Sinus Rhythm Rate: 85 Ectopy: None
--- NOTE | 2022-07-08 13:05 | NURSING ---
127 [facility] lower gi bleed, anticoagulated
--- NOTE | 2022-07-08 13:59 | CASEMGMT ---
Addendum entered by Linn Caceres 07/08/22 14:11: Social Work SW sent H&P to [facility] via [employer]. MAG Hart Original Note: Social Work SW was asked to see pt as she is concerned about financial coverage of the long-term. SW called [facility], pt is there skilled under her [employer] [facility] insurance. Pt is normally from the assisted living. Pt will likely need a precert to return so pt will need to stay until Sunday. SW met w/pt in room. Pt confirms plans to return to [facility] to the long-term side at discharge, she declined a SNF list at this time. SW inquired what her concern is. She states her personal injury attorney told her she ran out of money. SW explained the long-term will be covered by insurance. Pt went on to explain that she is concerned if she will lose her apartment in assisted living. SW explained is not sure, but SW can follow up on Sunday about this. SW asked if her family is aware she is here, they are not, she asked SW to call them. SW called sister in law Sandee, let her know pt is here and going to room 127. SW did try to call Eiler Vincent, got an answering machine at the office(this is the personal injury attorney). The other number listed does not work. SW to follow up Sunday,a precert will be needed and SW also to follow up w/pt's personal injury attorney and/or Nadir in the [place] regarding pt's concerns about losing her room in assisted living. MAG Hart
--- NOTE | 2022-07-08 14:14 | NURSING ---
Saline flushes flag allergy alert for latex. Pharmacy notified. Pharmacy checked actual box that saline flushes are packaged and noted that product is latex free.
--- NOTE | 2022-07-08 14:14 | NURSING ---
Checked with pharmacy about saline flushes and patients allergy to latex/natural rubber. Pharmacy confirmed that our saline flushes contain no latex/natural rubber, and is safe to use for patient.
[2022-07-08 14:42] LABS: Hematocrit 33.2 % (37-47); Hemoglobin 10.4 g/dL (12.0-15.0)
[2022-07-08 18:23] LABS: Hematocrit 31.5 % (37-47); Hemoglobin 9.8 g/dL (12.0-15.0)
[2022-07-08] MEDS: buPROPion (SR) 100 MG TABLET.SA 200 MG PO (20:19)
[2022-07-08] MEDS: Pravastatin 20 MG Tablet PO (20:19)
[2022-07-08] MEDS: traMADol 50 MG Tablet PO (20:20)
[2022-07-08 23:08] LABS: Hematocrit 31.5 % (37-47); Hemoglobin 9.9 g/dL (12.0-15.0)
[2022-07-09] VITALS (9 sets, daily range): BP systolic 108–117; BP diastolic 43–82; PULSE 86–92; RESP 17–18; TEMP 37–37.3; O2SAT 92–97
--- NOTE | 2022-07-09 04:40 | NURSING ---
This RN to pt room per [employer] request. pt noted sitting on bedside commode at pt bedside. pt note using fingers to dig out bottom. Pt states, I'm constipated. stool noted with hunter/orange color with blood tinged mucous present. Zeny care provided. pt assist x2 from BSC back into bed. No stool noted protruding from rectum. pt placed in a position of comfort with HOb elevated, bed alarm immigration specialist light within reach will monitor.
[2022-07-09 06:26] LABS: Absolute Neutrophil Count 7.1 X10^3/uL (2.0-7.7); Basophil# 0.05 X10^3/uL; Basophil% 0.5 % (0-1); Eosinophil# 0.21 X10^3/uL; Eosinophils% 2.3 % (0-5); Hematocrit 32.1 % (37-47); Lymphocyte % 11.9 % (19-41); Mean Corp Hgb Conc 31.2 g/dL (32-36); Mean Corpuscular Hgb 28.8 pg (27.0-32.0); Mean Corpuscular Volume 92.5 fL (81-99); Mean Platelet Vol. 9.7 fl (6.2-12.0); Monocyte# 0.75 X10^3/uL; Monocyte% 8.1 % (0-10); NRBC Flagged by Analyzer 0 % (0-5); Neutrophil # 7.07 X10^3/uL (2.7-7.7); Neutrophil % 76.8 % (47-70); Platelet Count 316 K/mm3 (150-450); RBC Distribution Width CV 15.6 % (11.6-14.6); Red Blood Count 3.47 M/mm3 (4.2-5.4); White Blood Count 9.2 K/mm3 (4.4-11.0)
[2022-07-09 06:58] LABS: ALB/GLOB Ratio 0.6 RATIO (0.9-2.4); AST(SGOT) 9 U/L (15-37); Alanine Aminotransfer ALT/SGPT 16 U/L (13-56); Albumin, Serum 2.6 g/dL (3.2-5.0); Alkaline Phosphatase 59 U/L (45-117); Anion Gap 6 (5-15); BUN 11 mg/dL (7-18); BUN/Creat Ratio 15.8 RATIO (10-20); Calcium,Total 9.8 mg/dL (8.5-10.1); Chloride 109 mmol/L (98-107); EST Glomerular Filtration Rate 87 mL/min (>60); Est Glom Filt Rate - Afr Amer 106 mL/min (>60); Estimated Creatinine Clearance 52.56 ml/min; Globulin 4.3 g/dL (2.2-4.2); Glucose 105 mg/dL (74-106); Potassium 3.8 mmol/L (3.5-5.1); Protein, Total 6.9 g/dL (6.4-8.2); Sodium Level 139 mmol/L (136-145)
[2022-07-09] MEDS: Potassium Chloride Oral Tablet 10 MEQ PO (07:59)
--- NOTE | 2022-07-09 09:22 | CON.PCM.SX_ITS ---
Assessment & Plan Assessment/Plan (1) Acute lower gastrointestinal bleeding: (2) Constipation: PLAN: Plan Question of patient's bleeding per rectum was due to to patient trying to disimpact the stool versus an actual bleed that started on its own. Patient is unsure of her last colonoscopy. Try to get records of this as well as when her last clot is as she is also has a history of following to determine whether she should really be on blood thinners long-term or not. Did discuss with Dr. Issa. Addendum: Last US report 02/04/2018 from [facility] via [facility]--+left superficial femoral; reports states pt has hx of DVT as well Salina Li M.D. Pager: [phone] [facility] [address] [place] [address], Outpatient Pavilion, [address] [place] [address] Office: [phone] HPI Consult Data Date of Consult: 07/09/22 HPI Narrative HPI Narrative: CLAUS MCKEON, is a 77 F who presents ER due to blood per rectum. Patient states she has noticed bright red blood per rectum. Patient is unsure when her last colonoscopy was. Patient is on Xarelto due to history of DVTs. Patient also did recently have a fall which required araceli to her forehead due to bleeding on 06/29/22. Patient states that her last clot was in her bottom about 3 years ago currently do not have her medical records as it was not done here. But she does states she had a clot in each leg and in the right arm previously. Patient also states she has constipation she states daily and does manually disimpact herself. Patient states that she did mainly disimpact herself before the bleeding as well. Patient was using the restroom when I saw her this morning. She did have brown stool and was going to attempt to manually disimpact herself?I did assist it was brown stool with a little bit of bright red blood when trying to continue to help disimpact. [facility] Medical History (Updated 07/09/22 @ 09:[address] Salina Li MD) Age-related osteoporosis without current pathological fracture Anxiety disorder, unspecified Depression DVT (deep venous thrombosis) GERD (gastroesophageal reflux disease) Hyperlipidemia Hypertension Other fracture of right lower leg, subsequent encounter for closed fracture with routine healing Presbyopia Unspecified nondisplaced fracture of sixth cervical vertebra, initial encounter for closed fracture Weakness Home Medications alendronate 70 mg tablet 70 mg PO MO 08/07/21 [History Last Taken Unknown] allopurinol 100 mg tablet 200 mg PO DAILY 08/07/21 [History Last Taken Unknown] amlodipine 5 mg tablet 5 mg PO DAILY 08/07/21 [History Last Taken Unknown] bupropion HCl 200 mg tablet,12 hr sustained-release 200 mg PO BID 08/07/21 [History Last Taken Unknown] fluticasone propionate 50 mcg/actuation nasal spray,suspension 1 spray intranasal DAILY 08/07/21 [History Last Taken Unknown] loratadine 10 mg tablet 10 mg PO DAILY 08/07/21 [History Last Taken Unknown] losartan 100 mg tablet 100 mg PO DAILY 08/07/21 [History Last Taken Unknown] omeprazole 20 mg capsule,delayed release 20 mg PO DAILY 08/07/21 [History Last Taken Unknown] potassium chloride 10 mEq tablet,extended release(part/cryst) (Klor-Con M) 10 meq PO DAILY 08/07/21 [History Last Taken Unknown] pravastatin 20 mg tablet 20 mg PO QHS 08/07/21 [History Last Taken Unknown] rivaroxaban 20 mg tablet (Xarelto) 20 mg PO QHS 08/07/21 [History Last Taken 07/07/22 20] sertraline 100 mg tablet 100 mg PO DAILY 08/07/21 [History Last Taken Unknown] torsemide 20 mg tablet 10 mg PO DAILY 08/07/21 [History Last Taken Unknown] acetaminophen 325 mg tablet (Tylenol) 650 mg PO Q6H PRN PRN Pain Score 1-10/Temp > 100.7 F #0 tabs 05/15/22 [Rx Last Taken Unknown] clonazepam 0.5 mg tablet 0.5 mg PO Q12H PRN PRN Anxiety 3 days #6 tabs 05/15/22 [Rx Last Taken Unknown] nystatin 100,000 unit/gram topical powder (Nyamyc) 1 applic topical BID #0 grams 05/15/22 [Rx Last Taken Unknown] tramadol 50 mg tablet 50 mg PO Q6H PRN PRN Pain 07/08/22 [History Last Taken Unknown] Allergy/AdvReac Type Severity Reaction Status Date / Time Latex, Natural Rubber AdvReac Rash Verified 07/08/22 11:00 Social History (Updated 07/08/22 @ 14:44 by Qiana Breaux) housing: assisted living facility Smoking Status: Former smoker ROS Constitutional Constitutional: Denies anorexia or fever(s) Eyes Eyes: Denies loss of central vision ENT HEENT: Denies dysphagia Cardiovascular Cardiovascular: Denies chest pain Respiratory/Chest Respiratory/Chest: Denies cough Gastrointestinal Gastrointestinal: Reports constipation and hematochezia; Denies abdominal pain, diarrhea, nausea or vomiting Genitourinary Genitourinary: Denies dysuria Musculoskeletal Musculoskeletal: Denies numbness Integumentary Integumentary: Denies jaundice Neurologic Neurologic: Denies focal weakness Psychiatric Psychiatric: Denies depression Endocrine Endocrinology: Denies palpitations Hematologic/Lymphatic Hematologic/Lymphatic: Reports easy bruising Physical Exam Const alert, oriented x3 and no apparent distress HEENT normocephalic and head/scalp atraumatic Resp normal respiratory effort Cardio regular rate GI soft to palpation; Negative for non-distended GI Narrative: EVE: Soft stool small amount of blood on the stool but stool is mostly brown. Palpation: Negative for tender or guarding Extremity no clubbing, cyanosis or edema Neuro CN's II-XII intact bilaterally Psych mental status grossly normal Lab / Micro Data Result Diagrams: 07/09/22 06:13 07/09/22 06:13 Labs: Laboratory Results - last 24 hr 07/08/22 11:20: WBC 8.0, RBC 3.75 L, Hgb 10.7 L, Hct 34.9 L, MCV 93.1, MCH 28.5, MCHC 30.7 L, RDW Std Deviation 53.6 H, RDW Coeff of Michele 15.7 H, Plt Count 356, MPV 9.6, Immature Gran % (Auto) 0.400, Neut % (Auto) 73.1 H, Lymph % (Auto) 14.5 L, [place] % (Auto) 8.6, Eos % (Auto) 2.6, Baso % (Auto) 0.8, Absolute Neuts (auto) 5.8, Absolute Lymphs (auto) 1.16, Nucleated RBC % 0 07/08/22 11:20: Sodium 139, Potassium 4.1, Chloride 107, Carbon Dioxide 26.0, Anion Gap 6, BUN 17, Creatinine 0.77, Estim Creat Clear Calc 57.09, Est GFR (MDRD) Af Amer 94, Est GFR (MDRD) Non-Af 77, BUN/Creatinine Ratio 22.0 H, Glucose 90, Calcium 10.5 H, Total Bilirubin 0.20, AST 9 L, ALT 17, Alkaline Phosphatase 63, Total Protein 7.5, Albumin 2.7 L, Globulin 4.8 H, Albumin/Globulin Ratio 0.6 L 07/08/22 11:20: Blood Type A POSITIVE, Antibody Screen NEGATIVE 07/08/22 14:29: Hgb 10.4 L, Hct 33.2 L 07/08/22 18:10: Hgb 9.8 L, Hct 31.5 L 07/08/22 22:37: Hgb 9.9 L, Hct 31.5 L 07/09/22 06:13: WBC 9.2, RBC 3.47 L, Hgb 10.0 L, Hct 32.1 L, MCV 92.5, MCH 28.8, MCHC 31.2 L, RDW Std Deviation 53.0 H, RDW Coeff of Michele 15.6 H, Plt Count 316, MPV 9.7, Immature Gran % (Auto) 0.400, Neut % (Auto) 76.8 H, Lymph % (Auto) 11.9 L, [place] % (Auto) 8.1, Eos % (Auto) 2.3, Baso % (Auto) 0.5, Absolute Neuts (auto) 7.1, Absolute Lymphs (auto) 1.10, Nucleated RBC % 0 07/09/22 06:13: Sodium 139, Potassium 3.8, Chloride 109 H, Carbon Dioxide 24.0, Anion Gap 6, BUN 11, Creatinine 0.70, Estim Creat Clear Calc 52.56, Est GFR (MDRD) Af Amer 106, Est GFR (MDRD) Non-Af 87, BUN/Creatinine Ratio 15.8, Glucose 105, Calcium 9.8, Total Bilirubin 0.30, AST 9 L, ALT 16, Alkaline Phosphatase 59, Total Protein 6.9, Albumin 2.6 L, Globulin 4.3 H, Albumin/Globulin Ratio 0.6 L Rhythm Strip Rhythm Strip: Sinus Rhythm Rate: 85 Ectopy: None Charges/Coding Visit Charges Inpatient E&M: 44791 Init Hosp L3
[2022-07-09] MEDS: Fluticasone 0.05% 1 SPRAY NASAL.SRY NASAL (10:09)
[2022-07-09] MEDS: FLU VACC QS2022-23(6MOS UP)/PF 60 MCG/0.5 ML SYRINGE IM (10:10)
[2022-07-09] MEDS: amLODIPine 5 MG Tablet PO (10:11)
[2022-07-09] MEDS: Losartan Potassium 100 MG Tablet PO (10:12)
[2022-07-09] MEDS: Sertraline 100 MG Tablet PO (10:12)
[2022-07-09] MEDS: buPROPion (SR) 100 MG TABLET.SA 200 MG PO ×2 (10:12→20:07)
[2022-07-09] MEDS: 0.9% Normal Saline 1,000 ML 100 ML IV ×2 (10:13→20:07)
[2022-07-09] MEDS: Allopurinol 100 MG Tablet 200 MG PO (10:13)
--- NOTE | 2022-07-09 12:19 | PCM.PN.HOSP ---
Subjective Subjective Follow-up on Acute GI bleed: Patient seen and examined. Objective Data Objective Data Vital Signs: Vital Signs Temp Pulse Resp BP Pulse Ox O2 Del Method 99.1 F 92 18 117/44 L 92 Room Air 07/09/22 10:03 07/09/22 11:41 07/09/22 10:03 07/09/22 10:03 07/09/22 10:03 07/09/22 10:03 Oxygen Delivery Method Room Air Weight: 68.5 kg Body Mass Index (BMI) 34.2 Intake & Output: Intake and Output for Last 24 Hours 07/07/22 07/08/22 07/09/22 23:59 23:59 23:59 Intake Total 1420 / 1420 1340 / 1340 Output Total 100 / 100 Balance 1320 / 1320 1340 / 1340 Lab / Micro Data Result Diagrams: 07/09/22 06:13 07/09/22 06:13 Labs: Laboratory Results - last 24 hr 07/08/22 14:29: Hgb 10.4 L, Hct 33.2 L 07/08/22 18:10: Hgb 9.8 L, Hct 31.5 L 07/08/22 22:37: Hgb 9.9 L, Hct 31.5 L 07/09/22 06:13: WBC 9.2, RBC 3.47 L, Hgb 10.0 L, Hct 32.1 L, MCV 92.5, MCH 28.8, MCHC 31.2 L, RDW Std Deviation 53.0 H, RDW Coeff of Michele 15.6 H, Plt Count 316, MPV 9.7, Immature Gran % (Auto) 0.400, Neut % (Auto) 76.8 H, Lymph % (Auto) 11.9 L, [place] % (Auto) 8.1, Eos % (Auto) 2.3, Baso % (Auto) 0.5, Absolute Neuts (auto) 7.1, Absolute Lymphs (auto) 1.10, Nucleated RBC % 0 07/09/22 06:13: Sodium 139, Potassium 3.8, Chloride 109 H, Carbon Dioxide 24.0, Anion Gap 6, BUN 11, Creatinine 0.70, Estim Creat Clear Calc 52.56, Est GFR (MDRD) Af Amer 106, Est GFR (MDRD) Non-Af 87, BUN/Creatinine Ratio 15.8, Glucose 105, Calcium 9.8, Total Bilirubin 0.30, AST 9 L, ALT 16, Alkaline Phosphatase 59, Total Protein 6.9, Albumin 2.6 L, Globulin 4.3 H, Albumin/Globulin Ratio 0.6 L Rhythm Strip Rhythm Strip: Sinus Rhythm Rate: 85 Ectopy: None Physical Exam Narrative Physical exam: General: Alert, Oriented x3, Cooperative, stable over the right forehead, sutures over the right eyebrow HEENT: Atraumatic Oral: Moist Mucosa Neck: Supple Lungs: Clear to auscultation Cardiovascular: HS I+II, regular, no murmurs Abdomen: Bowel Sounds Present, Soft, Non Tender Extremities: No edema, right foot ProForma boot Skin: No rashes, No breakdown Neurological: Grossly intact Psych/Mental Status: Appropriate Assessment & Plan Assessment/Plan (1) Acute lower gastrointestinal bleeding: PLAN: Plan 1.? Acute GI bleed, probably lower in a patient with history of DVT/PEs on Xarelto Patient reportedly has been self disimpacting herself Patient's last dose of Xarelto was a day before admission No bleeding since admitted Continue to hold Xarelto, continue IV PPI General surgery following 2.?Anemia secondary to probably acute blood loss Hb has remained stable at about 10.0 3.? History of DVT/PE on Xarelto, unclear how long ago patient had PE/DVT Continue Xarelto for now -patient has history of recurrent falls, multiple bruises and lacerations She may need to be off Xarelto. She may need IVC filter We will attempt again to get records from [facility] 4. Recent history of fall, status post laceration to the right forehead and brow, recent right foot fracture Continue tramadol as needed 5.? Hypertension, controlled, continue losartan, amlodipine 6.? Hyperlipidemia, continue statin 7.? Depression, continue on Zoloft and bupropion 8.? DVT prophylaxis?SCDs Charges/Coding Visit Charges Inpatient E&M: 18249 Subs Hosp L2
[2022-07-09] MEDS: Acetaminophen 325 MG Tablet 650 MG PO (18:48)
[2022-07-09] MEDS: Pravastatin 20 MG Tablet PO (20:07)
[2022-07-10] MEDS: clonazePAM 0.5 MG Tablet PO (00:11)
[2022-07-10 02:00] VITALS: BP 101/59; PULSE 85; RESP 18; TEMP 36.8; O2SAT 95
[2022-07-10 02:30] VITALS: PULSE 83
[2022-07-10 05:02] VITALS: BP 103/55; PULSE 81; RESP 18; TEMP 37; O2SAT 94
[2022-07-10] MEDS: Alendronate Sodium 70 MG Tablet PO (05:08)
[2022-07-10] MEDS: 0.9% Normal Saline 1,000 ML 100 ML IV (05:09)
[2022-07-10 05:20] LABS: Absolute Lymphocyte Count 1.64 X10^3/uL (0.83-4.51); Absolute Neutrophil Count 3.8 X10^3/uL (2.0-7.7); Basophil# 0.05 X10^3/uL; Basophil% 0.8 % (0-1); Eosinophil# 0.32 X10^3/uL; Eosinophils% 4.9 % (0-5); Hemoglobin 9.4 g/dL (12.0-15.0); Lymphocyte # 1.64 X10^3/ul (0.83-4.51); Lymphocyte % 25.2 % (19-41); Mean Corp Hgb Conc 31.3 g/dL (32-36); Mean Corpuscular Hgb 29.4 pg (27.0-32.0); Mean Corpuscular Volume 93.8 fL (81-99); Mean Platelet Vol. 9.7 fl (6.2-12.0); Monocyte# 0.69 X10^3/uL; Monocyte% 10.6 % (0-10); NRBC Flagged by Analyzer 0 % (0-5); Neutrophil # 3.77 X10^3/uL (2.7-7.7); Platelet Count 303 K/mm3 (150-450); RBC Distribution Width CV 15.8 % (11.6-14.6); RBC Distribution Width SD 54.3 fl (35.1-43.9); White Blood Count 6.5 K/mm3 (4.4-11.0)
[2022-07-10 05:53] LABS: ALB/GLOB Ratio 0.6 RATIO (0.9-2.4); AST(SGOT) 11 U/L (15-37); Alanine Aminotransfer ALT/SGPT 14 U/L (13-56); Albumin, Serum 2.4 g/dL (3.2-5.0); Alkaline Phosphatase 51 U/L (45-117); Anion Gap 4 (5-15); BUN 7 mg/dL (7-18); BUN/Creat Ratio 10.3 RATIO (10-20); Calcium,Total 9.7 mg/dL (8.5-10.1); Chloride 116 mmol/L (98-107); Creatinine, Serum 0.68 mg/dL (0.55-1.02); EST Glomerular Filtration Rate 90 mL/min (>60); Est Glom Filt Rate - Afr Amer 109 mL/min (>60); Estimated Creatinine Clearance 52.64 ml/min; Glucose 78 mg/dL (74-106); Potassium 3.5 mmol/L (3.5-5.1); Protein, Total 6.4 g/dL (6.4-8.2); Sodium Level 145 mmol/L (136-145)
[2022-07-10 07:00] VITALS: PULSE 93
[2022-07-10 08:35] VITALS: BP 116/64; PULSE 88; RESP 16; TEMP 36.3; O2SAT 95
--- NOTE | 2022-07-10 08:55 | CASEMGMT ---
Discharge Headmaster/Mistress This song writer sent patient updates to [facility] via [employer]. Gale OCASIO Technical Account Executive
--- NOTE | 2022-07-10 09:03 | CASEMGMT ---
Discharge Satellite Installer MAYTE reached out. No pre-cert needed to return when medically ready. Patient is a bed hold. Gale OCASIO Oracle Fusion Consultant
--- NOTE | 2022-07-10 09:20 | PCM.PN.SRG ---
Subjective Subjective No further obvious blood per rectum. Objective Data Objective Data Vital Signs: Vital Signs Temp Pulse Resp BP Pulse Ox O2 Del Method 97.4 F L 88 16 116/64 95 Room Air 07/10/22 08:35 07/10/22 08:35 07/10/22 08:35 07/10/22 08:35 07/10/22 08:35 07/10/22 08:40 Oxygen Delivery Method Room Air Weight: 151 lb 3.794 oz Body Mass Index (BMI) 34.2 Intake & Output: Intake and Output for Last 24 Hours 07/08/22 07/09/22 07/10/22 23:59 23:59 23:59 Intake Total 1420 / 1420 2570 / 2670 1103.33 / 1103.33 Output Total 100 / 100 Balance 1320 / 1320 2570 / 2670 1103.33 / 1103.33 Lab / Micro Data Result Diagrams: 07/10/22 04:33 07/10/22 04:33 Labs: Laboratory Results - last 24 hr 07/10/22 04:33: WBC 6.5, RBC 3.20 L, Hgb 9.4 L, Hct 30.0 L, MCV 93.8, MCH 29.4, MCHC 31.3 L, RDW Std Deviation 54.3 H, RDW Coeff of Michele 15.8 H, Plt Count 303, MPV 9.7, Immature Gran % (Auto) 0.500, Neut % (Auto) 58.0, Lymph % (Auto) 25.2, [place] % (Auto) 10.6 H, Eos % (Auto) 4.9, Baso % (Auto) 0.8, Absolute Neuts (auto) 3.8, Absolute Lymphs (auto) 1.64, Nucleated RBC % 0 07/10/22 04:33: Sodium 145, Potassium 3.5, Chloride 116 H, Carbon Dioxide 25.0, Anion Gap 4 L, BUN 7, Creatinine 0.68, Estim Creat Clear Calc 52.64, Est GFR (MDRD) Af Amer 109, Est GFR (MDRD) Non-Af 90, BUN/Creatinine Ratio 10.3, Glucose 78, Calcium 9.7, Total Bilirubin 0.30, AST 11 L, ALT 14, Alkaline Phosphatase 51, Total Protein 6.4, Albumin 2.4 L, Globulin 4.0, Albumin/Globulin Ratio 0.6 L Rhythm Strip Rhythm Strip: Sinus Rhythm Rate: 85 Ectopy: None Physical Exam Const no apparent distress Resp normal respiratory effort Cardio regular rate GI soft to palpation and non-tender Assessment & Plan Assessment/Plan (1) Acute lower gastrointestinal bleeding: (2) Constipation: PLAN: Plan Patient's hemoglobin has remained stable. While patient follow-up for an outpatient colonoscopy she is unsure when she had a previous colonoscopy and I am unable to find any records in our system or [facility] of such. Anticoagulation per primary--due to pt hx of DVTs ?4 in the past per patient--unable to get other records for this except 01/2018 Salina Li M.D. Pager: [phone] [facility] [address] [place] [address], [address] [place] [address] Office: [phone] Charges/Coding Visit Charges Inpatient E&M: 91439 Subs Hosp L2
--- NOTE | 2022-07-10 09:56 | PCM.TXEXTCAR ---
Diet Diet Order/Speech Therapy: 07/09/22 14:08 Diet: Regular - General Is pt able to select menu?: Yes Routine Orders/Code Status Suppository Frequency: Daily PRN Routine Lab Work: CBC (5 days) and BMP (5 days) Code Status: Full Code Wound(s) Forehead: Wound Type: Laceration Suggestions for Active Care Change Position every (hours): 2 Hours to sit in a chair: 2 Times a day to sit in chair: 3 Therapies Weight Bearing: as previous Extremity Affected:: Right Lower Physical Therapy: Eval and Treat Occupational Therapy: Eval and Treat Problem/Diagnosis (1) Acute lower gastrointestinal bleeding: Status: Acute Code(s): K92.2 - Gastrointestinal hemorrhage, unspecified (2) Constipation: Status: Acute Code(s): K59.00 - Constipation, unspecified Allergies/Procedures Done in Hospital Allergies Latex, Natural Rubber Adverse Reaction (Verified 07/08/22 11:00) Rash Procedures: None Type of Care/Length of Stay Estimated LOS: More Than 30 Days Type of Care Needed: Skilled Rehab Potential: Fair Prognosis: Good Additional Orders/Day of Discharge Additional Orders: pt needs help with ambulation at all times Please disimpact every 3 days if pt is not having BM Day of Discharge: 07/10/22 Dietary and Speech Recommendations Dietitian Recommendations/Changes: recommend advance diet as tolerated to regular-high fiber; encourage adequate fluid intake Discharge Plan Admission Admit Date/Time: 07/08/22 12:45 Attending Provider: Emily Marti Primary Care Provider: Gerda Wilks Consulting Providers: Salina Li ; Mirella Issa Discharge Orders/Prescriptions Prescriptions: No Action torsemide 20 mg tablet 10 mg PO DAILY alendronate 70 mg tablet 70 mg PO MO sertraline 100 mg tablet 100 mg PO DAILY amlodipine 5 mg tablet 5 mg PO DAILY allopurinol 100 mg tablet 200 mg PO DAILY omeprazole 20 mg capsule,delayed release(DR/EC) 20 mg PO DAILY pravastatin 20 mg tablet 20 mg PO QHS losartan 100 mg tablet 100 mg PO DAILY fluticasone propionate 50 mcg/actuation spray,suspension 1 spray INTRANASAL DAILY loratadine 10 mg tablet 10 mg PO DAILY bupropion HCl 200 mg tablet sustained-release 12 hr 200 mg PO BID potassium chloride [Klor-Con M10] 10 mEq tablet,ER particles/crystals 10 meq PO DAILY Xarelto 20 mg tablet 20 mg PO QHS acetaminophen [Tylenol] 325 mg Tablet 650 mg PO Q6H PRN PRN (Reason: Pain Score 1-10/Temp > 100.7 F) Qty: 0 0RF nystatin [Nyamyc] 100,000 unit/gram Powder 1 applic topical BID Qty: 0 0RF Protocol: *Topical Application Instructions APPLICATION INSTRUCTIONS: groin clonazepam 0.5 mg tablet 0.5 mg PO Q12H PRN PRN (Reason: Anxiety) 3 Days Qty: 6 0RF tramadol 50 mg tablet 50 mg PO Q6H PRN PRN (Reason: Pain) Referrals / Follow Up: Gerda Wilks MD [Primary Care Provider] - Salina Li MD [Med Staff - Active Staff] - Within 2 Weeks
--- NOTE | 2022-07-10 10:03 | PCM.DC.SUM ---
Providers Date of Admission: 07/08/22 Date of Discharge: 07/10/22 Primary Care Physician: Dr. Gerda Wilks MD Consultations 07/08/22 15:31 Consult: General Surgery Routine Consulting Provider: Salina Li Reason for Consult: Gi bleed EMERGENT Consult: No MD Notified: Yes Date Notified: 07/08/22 Time Notified: 16:06 Method of Notification: Text Reason For Visit: GI BLEED Diagnosis Discharge Diagnosis (1) Acute lower gastrointestinal bleeding: Status: Acute Code(s): K92.2 - Gastrointestinal hemorrhage, unspecified (2) Constipation: Status: Acute Code(s): K59.00 - Constipation, unspecified Medications at Discharge Home Medications alendronate 70 mg tablet 70 mg PO MO 08/07/21 allopurinol 100 mg tablet 200 mg PO DAILY 08/07/21 amlodipine 5 mg tablet 5 mg PO DAILY 08/07/21 bupropion HCl 200 mg tablet,12 hr sustained-release 200 mg PO BID 08/07/21 fluticasone propionate 50 mcg/actuation nasal spray,suspension 1 spray intranasal DAILY 08/07/21 loratadine 10 mg tablet 10 mg PO DAILY 08/07/21 losartan 100 mg tablet 100 mg PO DAILY 08/07/21 omeprazole 20 mg capsule,delayed release 20 mg PO DAILY 08/07/21 potassium chloride 10 mEq tablet,extended release(part/cryst) (Klor-Con M) 10 meq PO DAILY 08/07/21 pravastatin 20 mg tablet 20 mg PO QHS 08/07/21 rivaroxaban 20 mg tablet (Xarelto) 20 mg PO QHS 08/07/21 sertraline 100 mg tablet 100 mg PO DAILY 08/07/21 torsemide 20 mg tablet 10 mg PO DAILY 08/07/21 acetaminophen 325 mg tablet (Tylenol) 650 mg PO Q6H PRN PRN Pain Score 1-10/Temp > 100.7 F #0 tabs 05/15/22 clonazepam 0.5 mg tablet 0.5 mg PO Q12H PRN PRN Anxiety 3 days #6 tabs 05/15/22 nystatin 100,000 unit/gram topical powder (Nyamyc) 1 applic topical BID #0 grams 05/15/22 tramadol 50 mg tablet 50 mg PO Q6H PRN PRN Pain 07/08/22 polyethylene glycol 3350 17 gram/dose oral powder (Miralax) 17 g PO DAILY #119 grams 07/10/22 Hospital Course Operations None Procedures None Summary of Care Provided Minutes Spent on Discharge: 28 Hospital Course: Mrs. Samuel is a 77-year-old white female who presented to the emergency department on 07/08/2022 with rectal bleeding x1 day. 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 She evidently noticed bloody bowel movement the night prior to presentation and was reported to have 3-4 bloody bowel movements prior to presenting to the emergency department. The patient has a history of chronic constipation and has to self disimpact on a regular basis and it is suspected that during self disimpaction she caused irritation and bleeding. The patient does report she has a history of hemorrhoids that were ligated previously for rectal bleeding as well. Vitals in the ED showed BP 93/68, HR 89, RR 16, Temp 97.7F, Spo2 94%. Her admitting blood work showed WBC 8.0, Hb 10.4, Plt 356. She was seen by general surgery on the day after admission and it was felt that this was likely self-induced bleeding. Her hemoglobin was followed during her hospitalization and was relatively stable and she had no further rectal bleeding during her hospital course. Patient was unsure of her last colonoscopy at the time of presentation. I discussed the case with general surgery and they felt that she was stable for discharge given her stable hemoglobin and will schedule an outpatient colonoscopy with an office visit in 2 weeks. We did evaluate her long-term anticoagulation and she is high risk for recurrent clot which would be extremely devastating if she developed PE therefore we kept her on anticoagulation for now and watch her clinically. We did instruct the nursing facility to obtain a CBC and a BMP in 5 days to reevaluate. She was discharged back to the nursing facility in stable condition with ongoing weightbearing precautions given her recent right lower extremity ankle fracture. She is in need of ongoing therapy services. We did schedule daily MiraLAX for her which is to be held for diarrhea and encouraged staff disimpaction every third day if the patient is not having daily bowel movements. We also discussed with the patient and the importance of not self disimpacting as we do feel that strongly that she caused rectal bleeding. Discharge diagnoses: Rectal bleeding Chronic anemia History of DVT/PE Falls Hypertension Hyperlipidemia Depression History of gout Anxiety GERD Recent right ankle fracture Physical Exam Const alert, oriented x3, no apparent distress and well nourished Constitutional Narrative: Obese, elderly, white female sitting up in bed, appears older than stated age, appears comfortable nontoxic General Appearance: cooperative, comfortable, well kempt and well developed Orientation / Consciousness: awake, oriented to person, oriented to place and oriented to time Exam Limitations: no limitations Nutritional Appearance: obese HEENT normocephalic and moist oral mucous membranes HEENT Narrative: Ecchymosis on face from previous fall, laceration right frontal area healing and sutures removed, significant hearing loss, dentures in place, Mallampati 2, no thrush Eyes PERRL, EOMs intact bilaterally and conjunctivae normal Eyes Narrative: No scleral icterus Neck no lymphadenopathy and supple Neck Narrative: Trachea midline, no thyroid enlargement Resp normal respiratory effort, no retractions, no use of accessory muscles and clear to auscultation bilaterally Auscultation: Negative for crackles, rales, rhonchi or wheezes Cardio regular rate, regular rhythm, S1 normal heart sound, S2 normal heart sound, no murmurs, no rub, no gallops and no clicks GI normal to inspection, nondistended, normoactive bowel sounds, soft to palpation and non-tender Extremity no clubbing, cyanosis or edema Extremity Narrative: 2+ pedal pulses Skin no rashes or lesions noted, skin turgor normal and no jaundice Skin Narrative: Scattered ecchymosis, laceration right forehead as noted above Neuro oriented x3, CN's II-XII intact bilaterally, moves all extremities and no focal motor deficits Neuro Narrative: Significant generalized weakness Speech: speech normal Psych affect normal Psych Narrative: Very pleasant and appropriately interactive Weight / BMI Weight Weight: 68.6 kg Body Mass Index (BMI) 34.2 ABG / Lab / Microbiology Data Result Diagrams: 07/10/22 04:33 07/10/22 04:33 Laboratory: Laboratory Results - last 24 hr 07/10/22 04:33: WBC 6.5, RBC 3.20 L, Hgb 9.4 L, Hct 30.0 L, MCV 93.8, MCH 29.4, MCHC 31.3 L, RDW Std Deviation 54.3 H, RDW Coeff of Michele 15.8 H, Plt Count 303, MPV 9.7, Immature Gran % (Auto) 0.500, Neut % (Auto) 58.0, Lymph % (Auto) 25.2, Donley % (Auto) 10.6 H, Eos % (Auto) 4.9, Baso % (Auto) 0.8, Absolute Neuts (auto) 3.8, Absolute Lymphs (auto) 1.64, Nucleated RBC % 0 07/10/22 04:33: Sodium 145, Potassium 3.5, Chloride 116 H, Carbon Dioxide 25.0, Anion Gap 4 L, BUN 7, Creatinine 0.68, Estim Creat Clear Calc 52.64, Est GFR (MDRD) Af Amer 109, Est GFR (MDRD) Non-Af 90, BUN/Creatinine Ratio 10.3, Glucose 78, Calcium 9.7, Total Bilirubin 0.30, AST 11 L, ALT 14, Alkaline Phosphatase 51, Total Protein 6.4, Albumin 2.4 L, Globulin 4.0, Albumin/Globulin Ratio 0.6 L Meaningful Use Info Meaningful Use Diagnoses (Choose all that apply): None applicable Discharge Plan Admission Admit Date/Time: 07/08/22 12:45 Primary Reason for Your Visit: Rectal Bleeding Attending Provider: Emily Marti Primary Care Provider: Gerda Wilks Consulting Providers: Salina Li ; Mirella Issa Discharge Orders/Prescriptions Prescriptions: New polyethylene glycol 3350 [Miralax] 17 gram/dose powder 17 g PO DAILY Qty: 119 0RF Continued torsemide 20 mg tablet 10 mg PO DAILY alendronate 70 mg tablet 70 mg PO MO sertraline 100 mg tablet 100 mg PO DAILY amlodipine 5 mg tablet 5 mg PO DAILY allopurinol 100 mg tablet 200 mg PO DAILY omeprazole 20 mg capsule,delayed release(DR/EC) 20 mg PO DAILY pravastatin 20 mg tablet 20 mg PO QHS losartan 100 mg tablet 100 mg PO DAILY fluticasone propionate 50 mcg/actuation spray,suspension 1 spray INTRANASAL DAILY loratadine 10 mg tablet 10 mg PO DAILY bupropion HCl 200 mg tablet sustained-release 12 hr 200 mg PO BID potassium chloride [Klor-Con M10] 10 mEq tablet,ER particles/crystals 10 meq PO DAILY Xarelto 20 mg tablet 20 mg PO QHS acetaminophen [Tylenol] 325 mg Tablet 650 mg PO Q6H PRN PRN (Reason: Pain Score 1-10/Temp > 100.7 F) Qty: 0 0RF nystatin [Nyamyc] 100,000 unit/gram Powder 1 applic topical BID Qty: 0 0RF Protocol: *Topical Application Instructions APPLICATION INSTRUCTIONS: groin clonazepam 0.5 mg tablet 0.5 mg PO Q12H PRN PRN (Reason: Anxiety) 3 Days Qty: 6 0RF tramadol 50 mg tablet 50 mg PO Q6H PRN PRN (Reason: Pain) Referrals / Follow Up: Gerda Wilks MD [Primary Care Provider] - Within 2 Weeks Salina Li MD [Med Staff - Active Staff] - Within 2 Weeks Disposition Disposition (needs filled in before D/C Order can be placed): [facility] Charges/Coding Visit Charges OBSV E&M: 86391 Observation care discharge
[2022-07-10] MEDS: Losartan Potassium 100 MG Tablet PO (10:09)
[2022-07-10] MEDS: Potassium Chloride Oral Tablet 10 MEQ PO (10:09)
[2022-07-10] MEDS: amLODIPine 5 MG Tablet PO (10:09)
[2022-07-10] MEDS: Fluticasone 0.05% 1 SPRAY NASAL.SRY NASAL (10:09)
[2022-07-10] MEDS: Sertraline 100 MG Tablet PO (10:10)
[2022-07-10] MEDS: Allopurinol 100 MG Tablet 200 MG PO (10:10)
[2022-07-10] MEDS: buPROPion (SR) 100 MG TABLET.SA 200 MG PO (10:10)
--- NOTE | 2022-07-10 10:10 | CASEMGMT ---
This RN REED to room with LIEBERMAN form, explanation done-pt voices understanding, and signs LIEBERMAN form. Original to chart and copy to pt. Pt voices no further questions/concerns/needs. SStaten DAISY CM
--- NOTE | 2022-07-10 10:58 | CASEMGMT ---
Discharge Acting Professor D/c orders sent to [facility] via [facility] Gale [employer]
[2022-07-10 11:00] VITALS: BP 116/64; PULSE 88; RESP 16; TEMP 36.3; O2SAT 95
--- NOTE | 2022-07-10 13:34 | NURSING ---
Report called to RN at [facility].
== END 2022-07-10 13:10 | disposition skilled nursing facility (03) ==
LOC: ED 12:26 → PCU 13:35
PROVIDERS: Admitting Provider Internal Medicine; Emergency Provider Emergency Medicine; PCP Internal Medicine; Visit Provider Internal Medicine
DX: K62.5 Hemorrhage of anus and rectum (principal); S12.500D Unspecified displaced fracture of sixth cervical vertebra, subsequent encounter for fracture with routine healing; Z87.891 Personal history of nicotine dependence; E78.5 Hyperlipidemia, unspecified; Z79.01 Long term (current) use of anticoagulants; K21.9 Gastro-esophageal reflux disease without esophagitis; I10 Essential (primary) hypertension; R19.7 Diarrhea, unspecified; D62 Acute posthemorrhagic anemia; S01.81XD Laceration without foreign body of other part of head, subsequent encounter; F41.9 Anxiety disorder, unspecified; K59.00 Constipation, unspecified; Z79.83 Long term (current) use of bisphosphonates; Z86.718 Personal history of other venous thrombosis and embolism; Z79.899 Other long term (current) drug therapy; Z79.51 Long term (current) use of inhaled steroids; W19.XXXD Unspecified fall, subsequent encounter; Z86.711 Personal history of pulmonary embolism; F32.A Depression, unspecified; Z23 Encounter for immunization; M10.9 Gout, unspecified; S82.891D Other fracture of right lower leg, subsequent encounter for closed fracture with routine healing
CPT/HCPCS: 36415; 80053; 85014; 85018; 85025; 86850; 86900; 86901; 87426; 93005; 96360; 96361; 97802; 99218; 99283; G0008; J7030; 90686; G0378

== ENCOUNTER → 2022-07-11 | Outpatient (REF) | payer MEDICARE, MEDICAID, SELFPAY ==
[2022-07-11 08:10] LABS: Absolute Lymphocyte Count 1.11 X10^3/uL (0.83-4.51); Absolute Neutrophil Count 4.8 X10^3/uL (2.0-7.7); Basophil# 0.05 X10^3/uL; Basophil% 0.7 % (0-1); Eosinophil# 0.29 X10^3/uL; Eosinophils% 4.2 % (0-5); Hematocrit 31.1 % (37-47); Hemoglobin 9.7 g/dL (12.0-15.0); Lymphocyte # 1.11 X10^3/ul (0.83-4.51); Lymphocyte % 16.1 % (19-41); Mean Corp Hgb Conc 31.2 g/dL (32-36); Mean Corpuscular Hgb 29.4 pg (27.0-32.0); Mean Corpuscular Volume 94.2 fL (81-99); Monocyte# 0.61 X10^3/uL; Monocyte% 8.9 % (0-10); NRBC Flagged by Analyzer 0 % (0-5); Neutrophil % 69.7 % (47-70); Platelet Count 325 K/mm3 (150-450); RBC Distribution Width CV 15.9 % (11.6-14.6); RBC Distribution Width SD 54.6 fl (35.1-43.9); White Blood Count 6.9 K/mm3 (4.4-11.0)
[2022-07-11 08:14] LABS: Anion Gap 2 (5-15); BUN 6 mg/dL (7-18); BUN/Creat Ratio 10.1 RATIO (10-20); Calcium,Total 10.1 mg/dL (8.5-10.1); Chloride 114 mmol/L (98-107); EST Glomerular Filtration Rate 105 mL/min (>60); Est Glom Filt Rate - Afr Amer 126 mL/min (>60); Glucose 100 mg/dL (74-106); Potassium 3.6 mmol/L (3.5-5.1); Sodium Level 142 mmol/L (136-145)
== END ==
LOC: OLS.SW 05:00
PROVIDERS: PCP Internal Medicine; Visit Provider Internal Medicine
DX: I10 Essential (primary) hypertension (principal); M81.0 Age-related osteoporosis without current pathological fracture
CPT/HCPCS: 36415; 80048; 85025

== ENCOUNTER → 2022-07-18 | Outpatient (REF) | payer MEDICARE, MEDICAID, SELFPAY ==
[2022-07-18 09:01] LABS: Anion Gap 6 (5-15); BUN 15 mg/dL (7-18); BUN/Creat Ratio 16.4 RATIO (10-20); Calcium,Total 10.8 mg/dL (8.5-10.1); Chloride 105 mmol/L (98-107); Creatinine, Serum 0.91 mg/dL (0.55-1.02); EST Glomerular Filtration Rate 64 mL/min (>60); Est Glom Filt Rate - Afr Amer 77 mL/min (>60); Glucose 112 mg/dL (74-106); Potassium 4.1 mmol/L (3.5-5.1); Sodium Level 137 mmol/L (136-145)
[2022-07-18 09:12] LABS: Absolute Lymphocyte Count 1.26 X10^3/uL (0.83-4.51); Absolute Neutrophil Count 4.9 X10^3/uL (2.0-7.7); Basophil# 0.08 X10^3/uL; Basophil% 1.1 % (0-1); Eosinophil# 0.38 X10^3/uL; Eosinophils% 5.2 % (0-5); Hematocrit 35.9 % (37-47); Lymphocyte # 1.26 X10^3/ul (0.83-4.51); Lymphocyte % 17.2 % (19-41); Mean Corp Hgb Conc 30.6 g/dL (32-36); Mean Corpuscular Hgb 28.5 pg (27.0-32.0); Monocyte# 0.62 X10^3/uL; Monocyte% 8.5 % (0-10); NRBC Flagged by Analyzer 0 % (0-5); Neutrophil # 4.94 X10^3/uL (2.7-7.7); Neutrophil % 67.6 % (47-70); Platelet Count 373 K/mm3 (150-450); RBC Distribution Width CV 16.2 % (11.6-14.6); RBC Distribution Width SD 55.2 fl (35.1-43.9); Red Blood Count 3.86 M/mm3 (4.2-5.4); White Blood Count 7.3 K/mm3 (4.4-11.0)
== END ==
LOC: OLS.SW 07:15
PROVIDERS: PCP Internal Medicine; Visit Provider Internal Medicine
DX: I10 Essential (primary) hypertension (principal)
CPT/HCPCS: 36415; 80048; 85025

== ENCOUNTER → 2022-07-25 | Outpatient (REF) | payer MEDICARE, MEDICAID, SELFPAY ==
[2022-07-25 08:07] LABS: Absolute Neutrophil Count 5.1 X10^3/uL (2.0-7.7); Basophil# 0.08 X10^3/uL; Eosinophil# 0.56 X10^3/uL; Eosinophils% 6.9 % (0-5); Hematocrit 37.3 % (37-47); Hemoglobin 11.8 g/dL (12.0-15.0); Lymphocyte % 19.7 % (19-41); Mean Corp Hgb Conc 31.6 g/dL (32-36); Mean Corpuscular Hgb 29.4 pg (27.0-32.0); Mean Platelet Vol. 10.5 fl (6.2-12.0); Monocyte# 0.81 X10^3/uL; NRBC Flagged by Analyzer 0 % (0-5); Neutrophil # 5.06 X10^3/uL (2.7-7.7); Platelet Count 343 K/mm3 (150-450); RBC Distribution Width CV 16.5 % (11.6-14.6); RBC Distribution Width SD 55.9 fl (35.1-43.9); Red Blood Count 4.01 M/mm3 (4.2-5.4); White Blood Count 8.1 K/mm3 (4.4-11.0)
[2022-07-25 08:18] LABS: Anion Gap 5 (5-15); BUN 28 mg/dL (7-18); BUN/Creat Ratio 29.8 RATIO (10-20); Calcium,Total 11.2 mg/dL (8.5-10.1); Chloride 107 mmol/L (98-107); Creatinine, Serum 0.94 mg/dL (0.55-1.02); EST Glomerular Filtration Rate 62 mL/min (>60); Est Glom Filt Rate - Afr Amer 75 mL/min (>60); Glucose 105 mg/dL (74-106); Potassium 4.1 mmol/L (3.5-5.1); Sodium Level 139 mmol/L (136-145)
== END ==
LOC: OLS.SW 05:00
PROVIDERS: PCP Internal Medicine; Visit Provider Internal Medicine
DX: I10 Essential (primary) hypertension (principal); M81.0 Age-related osteoporosis without current pathological fracture
CPT/HCPCS: 36415; 80048; 85025

== ENCOUNTER → 2022-08-01 | Outpatient (REF) | payer MEDICARE, MEDICAID, SELFPAY ==
[2022-08-01 09:16] LABS: Absolute Lymphocyte Count 0.96 X10^3/uL (0.83-4.51); Absolute Neutrophil Count 5.2 X10^3/uL (2.0-7.7); Basophil# 0.07 X10^3/uL; Eosinophil# 0.38 X10^3/uL; Eosinophils% 5.2 % (0-5); Hematocrit 36.6 % (37-47); Hemoglobin 11.3 g/dL (12.0-15.0); Lymphocyte # 0.96 X10^3/ul (0.83-4.51); Lymphocyte % 13.2 % (19-41); Mean Corp Hgb Conc 30.9 g/dL (32-36); Mean Corpuscular Hgb 28.7 pg (27.0-32.0); Mean Corpuscular Volume 92.9 fL (81-99); Mean Platelet Vol. 10.9 fl (6.2-12.0); Monocyte# 0.64 X10^3/uL; Monocyte% 8.8 % (0-10); NRBC Flagged by Analyzer 0 % (0-5); Neutrophil # 5.21 X10^3/uL (2.7-7.7); Neutrophil % 71.4 % (47-70); Platelet Count 313 K/mm3 (150-450); RBC Distribution Width CV 16.6 % (11.6-14.6); RBC Distribution Width SD 56.8 fl (35.1-43.9); Red Blood Count 3.94 M/mm3 (4.2-5.4); White Blood Count 7.3 K/mm3 (4.4-11.0)
[2022-08-01 09:25] LABS: Anion Gap 5 (5-15); BUN 23 mg/dL (7-18); BUN/Creat Ratio 25.4 RATIO (10-20); Calcium,Total 10.9 mg/dL (8.5-10.1); Chloride 107 mmol/L (98-107); EST Glomerular Filtration Rate 65 mL/min (>60); Est Glom Filt Rate - Afr Amer 78 mL/min (>60); Glucose 108 mg/dL (74-106); Potassium 4.1 mmol/L (3.5-5.1); Sodium Level 138 mmol/L (136-145)
== END ==
LOC: OLS.SW 05:00
PROVIDERS: PCP Internal Medicine; Visit Provider Internal Medicine
DX: I10 Essential (primary) hypertension (principal)
CPT/HCPCS: 36415; 80048; 85025

== ENCOUNTER → 2022-08-08 | Outpatient (REF) | payer MEDICARE, MEDICAID, SELFPAY ==
[2022-08-08 09:39] LABS: Absolute Lymphocyte Count 1.54 X10^3/uL (0.83-4.51); Absolute Neutrophil Count 5.8 X10^3/uL (2.0-7.7); Basophil# 0.09 X10^3/uL; Basophil% 1.1 % (0-1); Eosinophil# 0.38 X10^3/uL; Eosinophils% 4.5 % (0-5); Hematocrit 39.3 % (37-47); Hemoglobin 12.3 g/dL (12.0-15.0); Lymphocyte # 1.54 X10^3/ul (0.83-4.51); Lymphocyte % 18.1 % (19-41); Mean Corp Hgb Conc 31.3 g/dL (32-36); Mean Corpuscular Hgb 28.9 pg (27.0-32.0); Mean Corpuscular Volume 92.3 fL (81-99); Mean Platelet Vol. 10.7 fl (6.2-12.0); Monocyte% 8.2 % (0-10); NRBC Flagged by Analyzer 0 % (0-5); Neutrophil # 5.79 X10^3/uL (2.7-7.7); Neutrophil % 67.9 % (47-70); Platelet Count 334 K/mm3 (150-450); RBC Distribution Width SD 57.2 fl (35.1-43.9); Red Blood Count 4.26 M/mm3 (4.2-5.4); White Blood Count 8.5 K/mm3 (4.4-11.0)
[2022-08-08 10:07] LABS: Anion Gap 7 (5-15); BUN 18 mg/dL (7-18); BUN/Creat Ratio 20.1 RATIO (10-20); Calcium,Total 11.5 mg/dL (8.5-10.1); Chloride 109 mmol/L (98-107); EST Glomerular Filtration Rate 65 mL/min (>60); Est Glom Filt Rate - Afr Amer 79 mL/min (>60); Glucose 112 mg/dL (74-106); Potassium 4.3 mmol/L (3.5-5.1); Sodium Level 140 mmol/L (136-145)
== END ==
LOC: OLS.SW 05:00
PROVIDERS: PCP Internal Medicine; Visit Provider Internal Medicine
DX: I10 Essential (primary) hypertension (principal); M81.0 Age-related osteoporosis without current pathological fracture; T14.8XXA Other injury of unspecified body region, initial encounter; X58.XXXA Exposure to other specified factors, initial encounter
CPT/HCPCS: 36415; 80048; 85025

== ENCOUNTER → 2022-08-15 | Outpatient (REF) | payer MEDICARE, MEDICAID, SELFPAY ==
[2022-08-15 09:30] LABS: Absolute Lymphocyte Count 1.15 X10^3/uL (0.83-4.51); Absolute Neutrophil Count 5.9 X10^3/uL (2.0-7.7); Basophil# 0.07 X10^3/uL; Basophil% 0.9 % (0-1); Eosinophil# 0.35 X10^3/uL; Eosinophils% 4.3 % (0-5); Hematocrit 37.9 % (37-47); Hemoglobin 11.5 g/dL (12.0-15.0); Lymphocyte # 1.15 X10^3/ul (0.83-4.51); Lymphocyte % 14.1 % (19-41); Mean Corp Hgb Conc 30.3 g/dL (32-36); Mean Corpuscular Hgb 28.8 pg (27.0-32.0); Mean Platelet Vol. 10.5 fl (6.2-12.0); Monocyte# 0.69 X10^3/uL; Monocyte% 8.4 % (0-10); NRBC Flagged by Analyzer 0 % (0-5); Neutrophil # 5.89 X10^3/uL (2.7-7.7); Neutrophil % 72.1 % (47-70); Platelet Count 282 K/mm3 (150-450); RBC Distribution Width CV 16.8 % (11.6-14.6); RBC Distribution Width SD 58.8 fl (35.1-43.9); Red Blood Count 3.99 M/mm3 (4.2-5.4); White Blood Count 8.2 K/mm3 (4.4-11.0)
[2022-08-15 09:35] LABS: Anion Gap 3 (5-15); BUN 19 mg/dL (7-18); BUN/Creat Ratio 25.9 RATIO (10-20); Chloride 109 mmol/L (98-107); Creatinine, Serum 0.73 mg/dL (0.55-1.02); EST Glomerular Filtration Rate 82 mL/min (>60); Est Glom Filt Rate - Afr Amer 99 mL/min (>60); Glucose 103 mg/dL (74-106); Potassium 4.4 mmol/L (3.5-5.1); Sodium Level 140 mmol/L (136-145)
== END ==
LOC: OLS.SW 05:00
PROVIDERS: PCP Internal Medicine; Visit Provider Internal Medicine
DX: I10 Essential (primary) hypertension (principal)
CPT/HCPCS: 36415; 80048; 85025

== ENCOUNTER → 2022-08-22 | Outpatient (REF) | payer MEDICARE, MEDICAID, SELFPAY ==
[2022-08-22 09:43] LABS: Absolute Lymphocyte Count 1.23 X10^3/uL (0.83-4.51); Absolute Neutrophil Count 4.2 X10^3/uL (2.0-7.7); Basophil# 0.07 X10^3/uL; Basophil% 1.1 % (0-1); Eosinophil# 0.36 X10^3/uL; Eosinophils% 5.6 % (0-5); Hematocrit 38.9 % (37-47); Lymphocyte # 1.23 X10^3/ul (0.83-4.51); Mean Corp Hgb Conc 30.8 g/dL (32-36); Mean Corpuscular Hgb 28.6 pg (27.0-32.0); Mean Corpuscular Volume 92.8 fL (81-99); Mean Platelet Vol. 10.5 fl (6.2-12.0); Monocyte# 0.56 X10^3/uL; Monocyte% 8.7 % (0-10); NRBC Flagged by Analyzer 0 % (0-5); Neutrophil # 4.21 X10^3/uL (2.7-7.7); Neutrophil % 65.1 % (47-70); Platelet Count 331 K/mm3 (150-450); RBC Distribution Width CV 16.5 % (11.6-14.6); RBC Distribution Width SD 56.8 fl (35.1-43.9); Red Blood Count 4.19 M/mm3 (4.2-5.4); White Blood Count 6.5 K/mm3 (4.4-11.0)
[2022-08-22 10:03] LABS: Anion Gap 4 (5-15); BUN 16 mg/dL (7-18); BUN/Creat Ratio 22.2 RATIO (10-20); Calcium,Total 10.9 mg/dL (8.5-10.1); Chloride 110 mmol/L (98-107); Creatinine, Serum 0.72 mg/dL (0.55-1.02); EST Glomerular Filtration Rate 84 mL/min (>60); Est Glom Filt Rate - Afr Amer 101 mL/min (>60); Glucose 95 mg/dL (74-106); Potassium 4.2 mmol/L (3.5-5.1); Sodium Level 140 mmol/L (136-145)
== END ==
LOC: OLS.SW 04:00
PROVIDERS: PCP Internal Medicine; Referring Provider Internal Medicine; Visit Provider Internal Medicine
DX: I10 Essential (primary) hypertension (principal)
CPT/HCPCS: 36415; 80048; 85025

== ENCOUNTER 2022-08-23 08:26 | Day surgery (SDC) | payer MEDICARE, MEDICAID, SELFPAY ==
[2022-08-23] VITALS (7 sets, daily range): BP systolic 100–128; BP diastolic 57–85; PULSE 70–88; RESP 16–18; TEMP 36.6–36.8; O2SAT 90–95; BMI 31.6
--- NOTE | 2022-08-23 09:15 | PCM.HP.BLA ---
History and Physical Date of Admission: 08/23/22 Date of Service:? 07/24/22 MR#: [id number] Acct: [id number] Name:? CLAUS MCKEON Rep #: [id number] : 1945 ? ? Provider: Dr. Salina Li MD Age/Sex:? 77/F ? ? Location: [facility] Status: Signed Intake Vital Signs ? 07/09/2213:44 Height 4 ft 9 in Intake Visit Reasons:?2 W F/U GI BLEED Chief Complaint: Blood in stool Allergies Latex, Natural Rubber Adverse Reaction (Verified 07/24/22 13:15) Rash Medications alendronate 70 mg tablet 70 mg PO MO 08/07/21 [History Confirmed 07/24/22] allopurinol 100 mg tablet 200 mg PO DAILY 08/07/21 [History Confirmed 07/24/22] amlodipine 5 mg tablet 5 mg PO DAILY 08/07/21 [History Confirmed 07/24/22] bupropion HCl 200 mg tablet,12 hr sustained-release 200 mg PO BID 08/07/21 [History Confirmed 07/24/22] fluticasone propionate 50 mcg/actuation nasal spray,suspension 1 spray intranasal DAILY 08/07/21 [History Confirmed 07/24/22] loratadine 10 mg tablet 10 mg PO DAILY 08/07/21 [History Confirmed 07/24/22] losartan 100 mg tablet 100 mg PO DAILY 08/07/21 [History Confirmed 07/24/22] omeprazole 20 mg capsule,delayed release 20 mg PO DAILY 08/07/21 [History Confirmed 07/24/22] potassium chloride 10 mEq tablet,extended release(part/cryst) (Klor-Con M) 10 meq PO DAILY 08/07/21 [History Confirmed 07/24/22] pravastatin 20 mg tablet 20 mg PO QHS 08/07/21 [History Confirmed 07/24/22] rivaroxaban 20 mg tablet (Xarelto) 20 mg PO QHS 08/07/21 [History Confirmed 07/24/22] sertraline 100 mg tablet 100 mg PO DAILY 08/07/21 [History Confirmed 07/24/22] torsemide 20 mg tablet 10 mg PO DAILY 08/07/21 [History Confirmed 07/24/22] acetaminophen 325 mg tablet (Tylenol) 650 mg PO Q6H PRN PRN Pain Score 1-10/Temp > 100.7 F #0 tabs 05/15/22 [Rx Confirmed 07/24/22] clonazepam 0.5 mg tablet 0.5 mg PO Q12H PRN PRN Anxiety 3 days #6 tabs 05/15/22 [Rx Confirmed 07/24/22] nystatin 100,000 unit/gram topical powder (Nyamyc) 1 applic topical BID #0 grams 05/15/22 [Rx Confirmed 07/24/22] tramadol 50 mg tablet 50 mg PO Q6H PRN PRN Pain 07/08/22 [History Confirmed 07/24/22] polyethylene glycol 3350 17 gram/dose oral powder (Miralax) 17 g PO DAILY #119 grams 07/10/22 [Rx Confirmed 07/24/22] PFSH Medical History?(Updated 07/24/22 @ 13:[address] Salina Li MD) Age-related osteoporosis without current pathological fracture Anticoagulated Anxiety disorder, unspecified Constipation Depression DVT (deep venous thrombosis) GERD (gastroesophageal reflux disease) Hyperlipidemia Hypertension Other fracture of right lower leg, subsequent encounter for closed fracture with routine healing Presbyopia Rectal bleeding Unspecified nondisplaced fracture of sixth cervical vertebra, initial encounter for closed fracture Weakness Social History? housing:? assisted living facility Smoking Status:? Former smoker HPI HPI HPI: 77-year-old female presents for follow-up due to blood per rectum during hospitalization.? Patient is also on xarelto daily due to history of multiple DVTs.? Patient states her last colonoscopy was greater than 10 years ago.? In the hospital unsure if patient really had a true GI bleed or if the bleeding was due to patient disimpacting herself as she has issues with constipation.? Since the hospitalization patient was placed on MiraLAX daily and to hold only if she is having diarrhea.? Patient states she has not had a disimpact herself since then and states she has bowel movements every other day denies any blood since the hospitalization.? Patient denies any chronic abdominal pain/nausea/vomiting/reflux.? Denies any family history of colon cancer.? Patient states her colonoscopy was greater than 10 years ago previously Exam Const General: cooperative, healthy appearing and no acute distress HENMT Head: normal to inspection Resp Effort & Inspection: normal respiratory effort Cardio Rate: regular rate GI Inspection: non-distended Palpation: soft, no guarding and nontender Skin General: no rashes or lesions noted Neuro General: patient oriented x3 Extrem General: no clubbing, cyanosis or edema Psych Affect: normal affect Assessment and Plan Assessment and Plan (1) Rectal bleeding: ?Status:?Acute (2) Anticoagulated: ?Status:?Acute (3) Constipation: ?Status:?Acute Plan I have discussed the above with the patient. I have offered the patient colonoscopy for evaluation. I have explained the risks/benefits of the procedure and described the procedure.? I have discussed the risks with the patient, including but not limited to:? infection, bleeding, perforation of the GI tract requiring emergency surgery, inability to complete the procedure, injury to any internal organs, complications of anesthesia, etc. - the patient understands and agrees to proceed. I have answered all the patient's questions to the patient's satisfaction and the patient has no further questions. The patient has been given instructions for the colon cleansing preparation.? 1 day of clears, MiraLAX Dulcolax prep.? [facility] Salina Li M.D. Pager: [phone] [facility] [address] [place] [address], [address] [place] [address] Office: [phone] Coding Level of Care Code Off vis,est,level 3 Diagnoses Rectal bleeding? K62.5 Anticoagulated? Z79.01 Constipation? K59.00 07/26/22 0735 <Electronically signed by Salina Li MD> Date Salina Li MD
[2022-08-23] MEDS: Lactated Ringers 1,000 ML 15 ML IV (09:19)
--- NOTE | 2022-08-23 09:45 | COLBX_PTH ---
PATIENT: CLAUS MCKEON LOC: EN U#:[id number] AGE/SX: 77/F ROOM: RE08/23/[address]: Dr. Salina Li MD : 1945 BED: DIS: 08/23/2022 SPEC #: [id number] RECD: 08/23/22 13:51 STATUS: ASIA LYLEJose #: [id number] APOLINAR: 08/23/22 09:[address]: Salina Li DEPT: SURGICAL PATHOLOGY RECD BY: Jacki Simmons ENTERED: 08/24/22 10:09 SP TYPE: COLON BX TAD DR: Dr. Gerda Wilks MD Tissues: A - Cecum, NOS B - Transverse colon C - Sigmoid colon biopsy Procedures: Surgery Specimen Level IV HEADER OPERATION: Colonoscopy (MAC) PRE-OP DIAGNOSIS: Rectal bleeding and constipation TISSUE SUBMITTED: A ? Cecum polyp, B ? Transverse colon polyp, C ? Sigmoid colon polyps MICROSCOPIC DIAGNOSIS A. Cecum polyp, biopsy: Fragments of tubular adenoma. Fragments of fecal material. B. Transverse colon polyp, biopsy: Tubular adenoma. C. Sigmoid colon polyps, biopsy: Fragments of tubular adenoma. Fragments of fecal material. YENIFER:asher 08/25/2022 MICROSCOPIC DESCRIPTION Slides are reviewed. GROSS DESCRIPTION A - Received in fixative is one container labeled with the patient's name and designated cecum polyp. The specimen consists of multiple irregular fragments of light hunter soft tissue that in aggregate measure 2 x 0.8 x 0.1 cm. The specimen is totally submitted in one cassette. B - Received in fixative is one container labeled with the patient's name and designated transverse colon polyp. The specimen consists of two irregular fragments of light hunter soft tissue that in aggregate measure 0.7 x 0.3 x 0.1 cm. The specimen is totally submitted in one cassette. C - Received in fixative is one container labeled with the patient's name and designated sigmoid colon polyps. The specimen consists of multiple irregular fragments of light hunter soft tissue that in aggregate measure 1 x 0.5 x 0.1 cm. The specimen is totally submitted in one cassette. / AM:asher 08/24/2022 TC:1 CPT: 47666 x3
[2022-08-23] MEDS: Glucagon 1 MG/ML Syringe (10:16)
--- NOTE | 2022-08-23 11:06 | OP.CCLET_ITS ---
08/23/2022 Gerda Wilks Md Re : Colonoscopy procedure for Kamilah Samuel Dear Dr. Wilks This procedure was performed on Tuesday, August 23, 2022. My impressions and recommendations are as follows: Impressions : - Diverticulosis in the sigmoid colon and in the descending colon. - Six 2 to 6 mm polyps in the sigmoid colon, in the transverse colon and in the cecum, removed with a hot snare. Resected and retrieved. - The examination was otherwise normal. - Hemorrhoids found on perianal exam. Recommendations : - Discharge patient to home. - High fiber diet. - Resume Xarelto (rivaroxaban) at prior dose tomorrow. - Await pathology results. - Repeat colonoscopy in 3 - 5 years for surveillance based on pathology results. My findings are described in the full procedure note, which is enclosed. If I can be of further assistance, please feel free to contact me at Doctor phone number(s): , Work: . Sincerely, MD Salina Matamoros MD 08/23/2022 11:05:42 AM This report has been signed electronically.
--- NOTE | 2022-08-23 11:06 | OP.COLON_ITS ---
Patient Name: Kamilah Samuel Procedure Date: 08/23/2022 9:54 AM Date of : 1945 Age: 77 Procedure: Colonoscopy Indications: Rectal bleeding, Constipation Providers: Salina Li MD Medicines: Monitored Anesthesia Care Patient Profile: This is a 77 year old female. Last Colonoscopy: more than 10 years ago. Complications: No immediate complications. Procedure: Pre-Anesthesia Assessment: - Prior to the procedure, a History and Physical was performed, and patient medications and allergies were reviewed. The patient's tolerance of previous anesthesia was also reviewed. The risks and benefits of the procedure and the sedation options and risks were discussed with the patient. All questions were answered, and informed consent was obtained. Prior Anticoagulants: The patient has taken Xarelto (rivaroxaban), last dose was 3 days prior to procedure. ASA Grade Assessment: Per anesthesia. After reviewing the risks and benefits, the patient was deemed in satisfactory condition to undergo the procedure. After I obtained informed consent, the scope was passed under direct vision. Throughout the procedure, the patient's blood pressure, pulse, and oxygen saturations were monitored continuously. The colonoscope was introduced through the anus and advanced to the cecum, identified by the ileocecal valve. The colonoscopy was performed without difficulty. The patient tolerated the procedure well. The quality of the bowel preparation was good except the cecum was fair. Scope In: 10:05:56 AM Scope Withdrawal Time 0 hours 25 minutes 27 seconds Scope Out: 10:50:51 AM Total Procedure Duration Time 0 hours 44 minutes 55 seconds Findings: Multiple small-mouthed diverticula were found in the sigmoid colon and descending colon. Six semi-pedunculated polyps were found in the sigmoid colon, transverse colon and cecum. The polyps were 2 to 6 mm in size. These polyps were removed with a hot snare. Resection and retrieval were complete. The exam was otherwise without abnormality. Hemorrhoids were found on perianal exam. Impression: - Diverticulosis in the sigmoid colon and in the descending colon. - Six 2 to 6 mm polyps in the sigmoid colon, in the transverse colon and in the cecum, removed with a hot snare. Resected and retrieved. - The examination was otherwise normal. - Hemorrhoids found on perianal exam. Recommendation: - Discharge patient to home. - High fiber diet. - Resume Xarelto (rivaroxaban) at prior dose tomorrow. - Await pathology results. - Repeat colonoscopy in 3 - 5 years for surveillance based on pathology results. Procedure Code(s): --- Professional --- 02215, Colonoscopy, flexible; with removal of tumor(s), polyp(s), or other lesion(s) by snare technique Diagnosis Code(s): --- Professional --- K64.9, Unspecified hemorrhoids D12.5, Benign neoplasm of sigmoid colon D12.3, Benign neoplasm of transverse colon (hepatic flexure or splenic flexure) D12.0, Benign neoplasm of cecum K62.5, Hemorrhage of anus and rectum K59.00, Constipation, unspecified K57.30, Diverticulosis of large intestine without perforation or abscess without bleeding CPT copyright 2017 [employer]. All rights reserved. The codes documented in this report are preliminary and upon rn paralegal review may be revised to meet current compliance requirements. MD Salina Matamoros MD 08/23/2022 11:05:42 AM This report has been signed electronically. Number of Addenda: 0 Note Initiated On: 08/23/2022 9:54 AM
== END 2022-08-23 12:14 | disposition home or self-care (01) ==
LOC: EN 08:27 → AC 08:27
PROVIDERS: PCP Internal Medicine; Referring Provider Internal Medicine; Visit Provider Surgery
PROC: 0DJD8ZZ Inspection of Lower Intestinal Tract, Via Natural or Artificial Opening Endoscopic (ICD-10-PCS; CPT 45378; principal; 2022-08-23 09:40)
DX: K57.30 Diverticulosis of large intestine without perforation or abscess without bleeding (principal); K64.9 Unspecified hemorrhoids; D12.0 Benign neoplasm of cecum; D12.3 Benign neoplasm of transverse colon; D12.5 Benign neoplasm of sigmoid colon; I10 Essential (primary) hypertension; K21.9 Gastro-esophageal reflux disease without esophagitis; F32.A Depression, unspecified; Z79.899 Other long term (current) drug therapy; Z79.01 Long term (current) use of anticoagulants; Z86.718 Personal history of other venous thrombosis and embolism; Z87.891 Personal history of nicotine dependence
CPT/HCPCS: 45385; 88305; J7120; J1610; J2405

== ENCOUNTER → 2022-08-29 | Outpatient (REF) | payer MEDICARE, MEDICAID, SELFPAY ==
[2022-08-29 09:22] LABS: Absolute Lymphocyte Count 1.18 X10^3/uL (0.83-4.51); Absolute Neutrophil Count 4.3 X10^3/uL (2.0-7.7); Basophil# 0.06 X10^3/uL; Basophil% 0.9 % (0-1); Eosinophil# 0.32 X10^3/uL; Eosinophils% 4.8 % (0-5); Hematocrit 37.3 % (37-47); Hemoglobin 11.6 g/dL (12.0-15.0); Lymphocyte # 1.18 X10^3/ul (0.83-4.51); Lymphocyte % 17.6 % (19-41); Mean Corp Hgb Conc 31.1 g/dL (32-36); Mean Corpuscular Hgb 28.4 pg (27.0-32.0); Mean Corpuscular Volume 91.4 fL (81-99); Mean Platelet Vol. 10.6 fl (6.2-12.0); Monocyte# 0.72 X10^3/uL; Monocyte% 10.8 % (0-10); NRBC Flagged by Analyzer 0 % (0-5); Neutrophil % 64.3 % (47-70); Platelet Count 331 K/mm3 (150-450); RBC Distribution Width CV 16.4 % (11.6-14.6); RBC Distribution Width SD 55.7 fl (35.1-43.9); Red Blood Count 4.08 M/mm3 (4.2-5.4); White Blood Count 6.7 K/mm3 (4.4-11.0)
[2022-08-29 09:30] LABS: Anion Gap 8 (5-15); BUN 13 mg/dL (7-18); BUN/Creat Ratio 19.1 RATIO (10-20); Calcium,Total 10.3 mg/dL (8.5-10.1); Chloride 107 mmol/L (98-107); Creatinine, Serum 0.68 mg/dL (0.55-1.02); EST Glomerular Filtration Rate 90 mL/min (>60); Est Glom Filt Rate - Afr Amer 108 mL/min (>60); Glucose 101 mg/dL (74-106); Potassium 4.1 mmol/L (3.5-5.1); Sodium Level 140 mmol/L (136-145)
== END ==
LOC: OLS.SW 04:00
PROVIDERS: PCP Internal Medicine; Referring Provider Internal Medicine; Visit Provider Internal Medicine
DX: I10 Essential (primary) hypertension (principal); M81.0 Age-related osteoporosis without current pathological fracture
CPT/HCPCS: 36415; 80048; 85025

== ENCOUNTER → 2022-09-05 | Outpatient (REF) | payer MEDICARE, MEDICAID, SELFPAY ==
[2022-09-05 09:13] LABS: Absolute Lymphocyte Count 1.29 X10^3/uL (0.83-4.51); Absolute Neutrophil Count 4.9 X10^3/uL (2.0-7.7); Basophil# 0.07 X10^3/uL; Eosinophil# 0.36 X10^3/uL; Eosinophils% 4.9 % (0-5); Hematocrit 39.5 % (37-47); Hemoglobin 12.4 g/dL (12.0-15.0); Lymphocyte # 1.29 X10^3/ul (0.83-4.51); Lymphocyte % 17.6 % (19-41); Mean Corp Hgb Conc 31.4 g/dL (32-36); Mean Corpuscular Hgb 28.4 pg (27.0-32.0); Mean Corpuscular Volume 90.4 fL (81-99); Mean Platelet Vol. 10.3 fl (6.2-12.0); Monocyte# 0.66 X10^3/uL; NRBC Flagged by Analyzer 0 % (0-5); Neutrophil # 4.92 X10^3/uL (2.7-7.7); Neutrophil % 67.1 % (47-70); Platelet Count 357 K/mm3 (150-450); RBC Distribution Width CV 16.1 % (11.6-14.6); RBC Distribution Width SD 53.8 fl (35.1-43.9); Red Blood Count 4.37 M/mm3 (4.2-5.4); White Blood Count 7.3 K/mm3 (4.4-11.0)
[2022-09-05 09:27] LABS: Anion Gap 6 (5-15); BUN 24 mg/dL (7-18); BUN/Creat Ratio 27.4 RATIO (10-20); Calcium,Total 11.1 mg/dL (8.5-10.1); Chloride 106 mmol/L (98-107); Creatinine, Serum 0.88 mg/dL (0.55-1.02); EST Glomerular Filtration Rate 67 mL/min (>60); Est Glom Filt Rate - Afr Amer 81 mL/min (>60); Glucose 92 mg/dL (74-106); Potassium 4.1 mmol/L (3.5-5.1); Sodium Level 139 mmol/L (136-145)
== END ==
LOC: OLS.SW 05:00
PROVIDERS: PCP Internal Medicine; Visit Provider Internal Medicine
DX: I10 Essential (primary) hypertension (principal); M81.0 Age-related osteoporosis without current pathological fracture
CPT/HCPCS: 36415; 80048; 85025

== ENCOUNTER → 2022-09-12 | Outpatient (REF) | payer MEDICARE, MEDICAID, SELFPAY ==
[2022-09-12 09:13] LABS: Absolute Lymphocyte Count 1.68 X10^3/uL (0.83-4.51); Absolute Neutrophil Count 5.3 X10^3/uL (2.0-7.7); Basophil# 0.09 X10^3/uL; Basophil% 1.1 % (0-1); Eosinophil# 0.41 X10^3/uL; Hematocrit 39.6 % (37-47); Lymphocyte # 1.68 X10^3/ul (0.83-4.51); Lymphocyte % 20.5 % (19-41); Mean Corp Hgb Conc 30.3 g/dL (32-36); Mean Corpuscular Hgb 27.5 pg (27.0-32.0); Mean Corpuscular Volume 90.8 fL (81-99); Mean Platelet Vol. 10.7 fl (6.2-12.0); Monocyte# 0.68 X10^3/uL; Monocyte% 8.3 % (0-10); NRBC Flagged by Analyzer 0 % (0-5); Neutrophil # 5.31 X10^3/uL (2.7-7.7); Neutrophil % 64.6 % (47-70); Platelet Count 331 K/mm3 (150-450); RBC Distribution Width CV 16.3 % (11.6-14.6); RBC Distribution Width SD 54.4 fl (35.1-43.9); Red Blood Count 4.36 M/mm3 (4.2-5.4); White Blood Count 8.2 K/mm3 (4.4-11.0)
[2022-09-12 09:33] LABS: Anion Gap 4 (5-15); BUN 22 mg/dL (7-18); BUN/Creat Ratio 29.7 RATIO (10-20); Calcium,Total 10.7 mg/dL (8.5-10.1); Chloride 110 mmol/L (98-107); Creatinine, Serum 0.74 mg/dL (0.55-1.02); EST Glomerular Filtration Rate 81 mL/min (>60); Est Glom Filt Rate - Afr Amer 98 mL/min (>60); Glucose 114 mg/dL (74-106); Potassium 4.4 mmol/L (3.5-5.1); Sodium Level 139 mmol/L (136-145)
== END ==
LOC: OLS.SW 05:00
PROVIDERS: PCP Internal Medicine; Visit Provider Internal Medicine
DX: I10 Essential (primary) hypertension (principal)
CPT/HCPCS: 36415; 80048; 85025

== ENCOUNTER → 2022-09-19 | Outpatient (REF) | payer MEDICARE, MEDICAID, SELFPAY ==
[2022-09-19 09:27] LABS: Absolute Lymphocyte Count 1.24 X10^3/uL (0.83-4.51); Absolute Neutrophil Count 5.5 X10^3/uL (2.0-7.7); Basophil# 0.07 X10^3/uL; Basophil% 0.9 % (0-1); Eosinophil# 0.45 X10^3/uL; Eosinophils% 5.6 % (0-5); Hematocrit 39.8 % (37-47); Hemoglobin 12.2 g/dL (12.0-15.0); Lymphocyte # 1.24 X10^3/ul (0.83-4.51); Lymphocyte % 15.5 % (19-41); Mean Corp Hgb Conc 30.7 g/dL (32-36); Mean Corpuscular Hgb 27.9 pg (27.0-32.0); Mean Corpuscular Volume 90.9 fL (81-99); Mean Platelet Vol. 11.2 fl (6.2-12.0); Monocyte# 0.73 X10^3/uL; Monocyte% 9.1 % (0-10); NRBC Flagged by Analyzer 0 % (0-5); Neutrophil # 5.47 X10^3/uL (2.7-7.7); Neutrophil % 68.6 % (47-70); Platelet Count 299 K/mm3 (150-450); RBC Distribution Width CV 16.4 % (11.6-14.6); RBC Distribution Width SD 54.8 fl (35.1-43.9); Red Blood Count 4.38 M/mm3 (4.2-5.4)
[2022-09-19 09:57] LABS: Anion Gap 6 (5-15); BUN 21 mg/dL (7-18); BUN/Creat Ratio 25.8 RATIO (10-20); Calcium,Total 10.3 mg/dL (8.5-10.1); Chloride 107 mmol/L (98-107); Creatinine, Serum 0.81 mg/dL (0.55-1.02); EST Glomerular Filtration Rate 73 mL/min (>60); Est Glom Filt Rate - Afr Amer 88 mL/min (>60); Glucose 113 mg/dL (74-106); Potassium 3.9 mmol/L (3.5-5.1); Sodium Level 140 mmol/L (136-145)
== END ==
LOC: OLS.SW 05:00
PROVIDERS: PCP Internal Medicine; Visit Provider Internal Medicine
DX: I10 Essential (primary) hypertension (principal); M81.0 Age-related osteoporosis without current pathological fracture
CPT/HCPCS: 36415; 80048; 85025

== ENCOUNTER → 2022-09-26 | Outpatient (REF) | payer MEDICARE, MEDICAID, SELFPAY ==
[2022-09-26 07:47] LABS: Absolute Lymphocyte Count 1.47 X10^3/uL (0.83-4.51); Absolute Neutrophil Count 5.5 X10^3/uL (2.0-7.7); Basophil# 0.07 X10^3/uL; Basophil% 0.8 % (0-1); Eosinophil# 0.52 X10^3/uL; Eosinophils% 6.2 % (0-5); Hematocrit 38.9 % (37-47); Hemoglobin 11.9 g/dL (12.0-15.0); Lymphocyte # 1.47 X10^3/ul (0.83-4.51); Lymphocyte % 17.5 % (19-41); Mean Corp Hgb Conc 30.6 g/dL (32-36); Mean Corpuscular Hgb 27.5 pg (27.0-32.0); Mean Corpuscular Volume 89.8 fL (81-99); Mean Platelet Vol. 10.8 fl (6.2-12.0); Monocyte# 0.79 X10^3/uL; Monocyte% 9.4 % (0-10); NRBC Flagged by Analyzer 0 % (0-5); Neutrophil # 5.52 X10^3/uL (2.7-7.7); Neutrophil % 65.5 % (47-70); Platelet Count 277 K/mm3 (150-450); RBC Distribution Width CV 16.5 % (11.6-14.6); RBC Distribution Width SD 54.1 fl (35.1-43.9); Red Blood Count 4.33 M/mm3 (4.2-5.4); White Blood Count 8.4 K/mm3 (4.4-11.0)
[2022-09-26 07:59] LABS: Anion Gap 5 (5-15); BUN 19 mg/dL (7-18); BUN/Creat Ratio 24.9 RATIO (10-20); Calcium,Total 10.8 mg/dL (8.5-10.1); Chloride 106 mmol/L (98-107); Creatinine, Serum 0.76 mg/dL (0.55-1.02); EST Glomerular Filtration Rate 78 mL/min (>60); Est Glom Filt Rate - Afr Amer 95 mL/min (>60); Glucose 116 mg/dL (74-106); Sodium Level 139 mmol/L (136-145)
== END ==
LOC: OLS.SW 05:00
PROVIDERS: PCP Internal Medicine; Visit Provider Internal Medicine
DX: I10 Essential (primary) hypertension (principal)
CPT/HCPCS: 36415; 80048; 85025

== ENCOUNTER → 2022-10-03 | Outpatient (REF) | payer MEDICARE, MEDICAID, SELFPAY ==
[2022-10-03 09:25] LABS: Absolute Lymphocyte Count 1.55 X10^3/uL (0.83-4.51); Absolute Neutrophil Count 5.3 X10^3/uL (2.0-7.7); Basophil# 0.08 X10^3/uL; Eosinophil# 0.41 X10^3/uL; Eosinophils% 5.1 % (0-5); Hematocrit 42.8 % (37-47); Hemoglobin 12.9 g/dL (12.0-15.0); Lymphocyte # 1.55 X10^3/ul (0.83-4.51); Lymphocyte % 19.2 % (19-41); Mean Corp Hgb Conc 30.1 g/dL (32-36); Mean Corpuscular Hgb 27.4 pg (27.0-32.0); Mean Corpuscular Volume 91.1 fL (81-99); Mean Platelet Vol. 10.7 fl (6.2-12.0); Monocyte# 0.69 X10^3/uL; Monocyte% 8.5 % (0-10); NRBC Flagged by Analyzer 0 % (0-5); Neutrophil # 5.34 X10^3/uL (2.7-7.7); Platelet Count 312 K/mm3 (150-450); RBC Distribution Width CV 16.4 % (11.6-14.6); RBC Distribution Width SD 55.8 fl (35.1-43.9); White Blood Count 8.1 K/mm3 (4.4-11.0)
[2022-10-03 10:34] LABS: Anion Gap 7 (5-15); BUN 19 mg/dL (7-18); BUN/Creat Ratio 23.6 RATIO (10-20); Calcium,Total 11.1 mg/dL (8.5-10.1); Chloride 111 mmol/L (98-107); EST Glomerular Filtration Rate 74 mL/min (>60); Est Glom Filt Rate - Afr Amer 89 mL/min (>60); Glucose 111 mg/dL (74-106); Potassium 4.4 mmol/L (3.5-5.1); Sodium Level 142 mmol/L (136-145)
== END ==
LOC: OLS.SW 05:00
PROVIDERS: PCP Internal Medicine; Visit Provider Internal Medicine
DX: M81.0 Age-related osteoporosis without current pathological fracture (principal); I10 Essential (primary) hypertension
CPT/HCPCS: 36415; 80048; 85025

== ENCOUNTER → 2022-10-04 | Outpatient (REF) | payer MEDICARE, SELFPAY ==
[2022-10-04 08:57] LABS: PTHIN 90.9 pg/mL (18.4-80.1)
== END ==
LOC: OLS.SW 05:00
PROVIDERS: PCP Internal Medicine; Visit Provider Internal Medicine
DX: I10 Essential (primary) hypertension (principal)
CPT/HCPCS: 36415; 82330; 83970

== ENCOUNTER → 2022-10-10 | Outpatient (REF) | payer MEDICARE, SELFPAY ==
[2022-10-10 08:17] LABS: Absolute Neutrophil Count 4.8 X10^3/uL (2.0-7.7); Basophil# 0.06 X10^3/uL; Basophil% 0.8 % (0-1); Eosinophil# 0.37 X10^3/uL; Hemoglobin 12.8 g/dL (12.0-15.0); Lymphocyte % 19.1 % (19-41); Mean Corp Hgb Conc 31.2 g/dL (32-36); Mean Corpuscular Hgb 27.9 pg (27.0-32.0); Mean Corpuscular Volume 89.3 fL (81-99); Mean Platelet Vol. 10.6 fl (6.2-12.0); Monocyte# 0.67 X10^3/uL; Monocyte% 9.1 % (0-10); NRBC Flagged by Analyzer 0 % (0-5); Neutrophil % 65.6 % (47-70); Platelet Count 287 K/mm3 (150-450); RBC Distribution Width CV 16.6 % (11.6-14.6); RBC Distribution Width SD 53.8 fl (35.1-43.9); Red Blood Count 4.59 M/mm3 (4.2-5.4); White Blood Count 7.3 K/mm3 (4.4-11.0)
[2022-10-10 08:33] LABS: Anion Gap 5 (5-15); BUN 21 mg/dL (7-18); BUN/Creat Ratio 25.5 RATIO (10-20); Calcium,Total 11.2 mg/dL (8.5-10.1); Chloride 106 mmol/L (98-107); Creatinine, Serum 0.82 mg/dL (0.55-1.02); EST Glomerular Filtration Rate 72 mL/min (>60); Est Glom Filt Rate - Afr Amer 87 mL/min (>60); Glucose 112 mg/dL (74-106); Potassium 4.4 mmol/L (3.5-5.1); Sodium Level 140 mmol/L (136-145)
== END ==
LOC: OLS.SW 05:00
PROVIDERS: PCP Internal Medicine; Visit Provider Internal Medicine
DX: S82.891D Other fracture of right lower leg, subsequent encounter for closed fracture with routine healing (principal); I10 Essential (primary) hypertension; M81.0 Age-related osteoporosis without current pathological fracture
CPT/HCPCS: 36415; 80048; 85025

== ENCOUNTER → 2022-10-17 | Outpatient (REF) | payer MEDICARE, MEDICAID, SELFPAY ==
[2022-10-17 10:06] LABS: Absolute Lymphocyte Count 1.14 X10^3/uL (0.83-4.51); Absolute Neutrophil Count 5.8 X10^3/uL (2.0-7.7); Basophil# 0.08 X10^3/uL; Eosinophils% 3.8 % (0-5); Hematocrit 41.2 % (37-47); Hemoglobin 12.8 g/dL (12.0-15.0); Lymphocyte # 1.14 X10^3/ul (0.83-4.51); Lymphocyte % 14.4 % (19-41); Mean Corp Hgb Conc 31.1 g/dL (32-36); Mean Corpuscular Hgb 27.9 pg (27.0-32.0); Mean Platelet Vol. 10.8 fl (6.2-12.0); Monocyte# 0.62 X10^3/uL; Monocyte% 7.8 % (0-10); NRBC Flagged by Analyzer 0 % (0-5); Neutrophil # 5.78 X10^3/uL (2.7-7.7); Neutrophil % 72.7 % (47-70); Platelet Count 273 K/mm3 (150-450); RBC Distribution Width CV 16.7 % (11.6-14.6); RBC Distribution Width SD 54.4 fl (35.1-43.9); Red Blood Count 4.58 M/mm3 (4.2-5.4); White Blood Count 7.9 K/mm3 (4.4-11.0)
[2022-10-17 10:32] LABS: Anion Gap 6 (5-15); BUN 20 mg/dL (7-18); BUN/Creat Ratio 23.6 RATIO (10-20); Chloride 106 mmol/L (98-107); Creatinine, Serum 0.85 mg/dL (0.55-1.02); EST Glomerular Filtration Rate 70 mL/min (>60); Est Glom Filt Rate - Afr Amer 84 mL/min (>60); Glucose 125 mg/dL (74-106); Potassium 4.2 mmol/L (3.5-5.1); Sodium Level 138 mmol/L (136-145)
== END ==
LOC: OLS.SW 05:00
PROVIDERS: PCP Internal Medicine; Visit Provider Internal Medicine
DX: I10 Essential (primary) hypertension (principal); M81.0 Age-related osteoporosis without current pathological fracture
CPT/HCPCS: 36415; 80048; 85025

== ENCOUNTER → 2022-10-30 | Outpatient (REF) | payer MEDICARE, MEDICAID, SELFPAY ==
[2022-10-30 08:56] LABS: Hematocrit 36.5 % (37-47); Hemoglobin 11.6 g/dL (12.0-15.0); Mean Corp Hgb Conc 31.8 g/dL (32-36); Mean Corpuscular Volume 88.2 fL (81-99); Mean Platelet Vol. 10.3 fl (6.2-12.0); Platelet Count 318 K/mm3 (150-450); RBC Distribution Width CV 15.9 % (11.6-14.6); RBC Distribution Width SD 51.9 fl (35.1-43.9); Red Blood Count 4.14 M/mm3 (4.2-5.4); White Blood Count 8.3 K/mm3 (4.4-11.0)
[2022-10-30 09:23] LABS: Anion Gap 8 (5-15); BUN 24 mg/dL (7-18); BUN/Creat Ratio 27.9 RATIO (10-20); Calcium,Total 9.5 mg/dL (8.5-10.1); Chloride 104 mmol/L (98-107); Creatinine, Serum 0.86 mg/dL (0.55-1.02); EST Glomerular Filtration Rate 68 mL/min (>60); Est Glom Filt Rate - Afr Amer 83 mL/min (>60); Glucose 115 mg/dL (74-106); Potassium 4.2 mmol/L (3.5-5.1); Sodium Level 137 mmol/L (136-145)
== END ==
LOC: OLS.SW 04:00
PROVIDERS: PCP Internal Medicine; Referring Provider Internal Medicine; Visit Provider Internal Medicine
DX: I10 Essential (primary) hypertension (principal)
CPT/HCPCS: 36415; 80048; 85027

== ENCOUNTER → 2022-11-30 | Outpatient (REF) | payer MEDICARE, MEDICAID, SELFPAY ==
[2022-11-30 10:33] LABS: Hematocrit 38.8 % (37-47); Hemoglobin 11.8 g/dL (12.0-15.0); Mean Corp Hgb Conc 30.4 g/dL (32-36); Mean Corpuscular Hgb 27.8 pg (27.0-32.0); Mean Corpuscular Volume 91.3 fL (81-99); Mean Platelet Vol. 10.3 fl (6.2-12.0); Platelet Count 320 K/mm3 (150-450); RBC Distribution Width CV 16.7 % (11.6-14.6); RBC Distribution Width SD 55.3 fl (35.1-43.9); Red Blood Count 4.25 M/mm3 (4.2-5.4); White Blood Count 7.4 K/mm3 (4.4-11.0)
[2022-11-30 10:47] LABS: Anion Gap 5 (5-15); BUN 24 mg/dL (7-18); BUN/Creat Ratio 27.8 RATIO (10-20); Calcium,Total 9.5 mg/dL (8.5-10.1); Chloride 107 mmol/L (98-107); Creatinine, Serum 0.86 mg/dL (0.55-1.02); EST Glomerular Filtration Rate 68 mL/min (>60); Est Glom Filt Rate - Afr Amer 82 mL/min (>60); Glucose 154 mg/dL (74-106); Sodium Level 139 mmol/L (136-145)
== END ==
LOC: OLS.SW 08:25
PROVIDERS: PCP Internal Medicine; Visit Provider Internal Medicine
DX: D64.9 Anemia, unspecified (principal); I10 Essential (primary) hypertension
CPT/HCPCS: 36415; 80048; 85027

== ENCOUNTER → 2022-12-28 | Outpatient (REF) | payer MEDICARE, MEDICAID, SELFPAY ==
[2022-12-28 08:26] LABS: Hemoglobin 11.7 g/dL (12.0-15.0); Mean Corp Hgb Conc 30.8 g/dL (32-36); Mean Corpuscular Hgb 28.3 pg (27.0-32.0); Mean Platelet Vol. 10.7 fl (6.2-12.0); Platelet Count 254 K/mm3 (150-450); RBC Distribution Width CV 17.2 % (11.6-14.6); RBC Distribution Width SD 57.1 fl (35.1-43.9); Red Blood Count 4.13 M/mm3 (4.2-5.4); White Blood Count 8.5 K/mm3 (4.4-11.0)
[2022-12-28 08:46] LABS: Anion Gap 7 (5-15); BUN 23 mg/dL (7-18); BUN/Creat Ratio 30.6 RATIO (10-20); Calcium,Total 9.2 mg/dL (8.5-10.1); Chloride 108 mmol/L (98-107); Creatinine, Serum 0.75 mg/dL (0.55-1.02); EST Glomerular Filtration Rate 80 mL/min (>60); Est Glom Filt Rate - Afr Amer 96 mL/min (>60); Glucose 109 mg/dL (74-106); Potassium 4.2 mmol/L (3.5-5.1); Sodium Level 141 mmol/L (136-145)
== END ==
LOC: OLS.SW 05:00
PROVIDERS: PCP Internal Medicine; Visit Provider Internal Medicine
DX: I10 Essential (primary) hypertension (principal); D64.9 Anemia, unspecified
CPT/HCPCS: 36415; 80048; 85027

== ENCOUNTER → 2023-01-01 | Outpatient (CLI) | payer MEDICARE, MEDICAID, SELFPAY ==
--- NOTE | 2023-01-01 13:14 | CT_ITS ---
STUDY: CT CERVICAL SPINE WITHOUT CONTRAST REASON FOR EXAM: Female, 77 years old. Patient has a history of spinal fracture. This is a follow-up examination. RADIATION DOSAGE (If Supplied By Facility): CTDIvol = ( 19.13 ) mGy, DLP = ( 316.01 ) mGycm TECHNIQUE: High resolution transaxial imaging was performed without contrast material. Sagittal and coronal images were reconstructed. Individualized dose optimization techniques were used for this CT. COMPARISON: Comparison is made with prior study dated June 29, 2022. FINDINGS: Normal craniovertebral junction. Normal anterior atlantoaxial articulation. Normal odontoid process. Normal cervical lordosis. Normal vertebral bodies and posterior osseous elements. C2-3: Posterior spondylosis causing minimal deformity of the central anterior aspect of the thecal sac. C3-4: Mild degree of disc space narrowing. Uncovertebral arthrosis. Mild bilateral neural foraminal stenosis. C4-5: Moderate degree of disc space narrowing. Uncovertebral arthrosis. Facet joint osteoarthritis. Moderate degree of bilateral neural foraminal stenosis worse on the right side. C5-6: Moderate degree of disc space narrowing. Facet joint osteoarthritis and hypertrophy. C6-7: Moderate degree of disc space narrowing. Anterior kissing spondylosis. The previously seen tiny avulsion along the inferior anterior aspect of the C6 vertebrae as healed. C7-T1: Normal endplates. Normal disc height and morphology. Normal central canal and intervertebral neuroforamina. Normal visualized soft tissue structures. CT/Spine Cervical without Contras IMPRESSION: Multilevel degenerative changes, as described above. The previously seen tiny avulsion fracture along the anterior inferior aspect of the C6 vertebrae has healed. Prominent anterior spondylosis is seen at that site. Electronically Signed: Rick Manriquez MD at 15:19 EDT ,
--- NOTE | 2023-01-01 13:38 | BI_ITS ---
MAMMOGRAPHY - BILATERAL SCREENING REASON FOR EXAM: Female, 77 years old. Routine annual screening examination. PERTINENT HISTORY: Mother with breast cancer. TECHNIQUE: Digital bilateral breast dayanna (3D mammographic acquisition) in the CC and MLO projections. 2-D mediolateral oblique (MLO) and craniocaudad (CC) views of both breasts were obtained. CAD: Full Field Digital Mammography with Computer Added Detection was performed. COMPARISON: Comparison is made with prior examination dated December 15, 2021 and November 30, 2020. FINDINGS: Breast Composition: There are scattered areas of fibroglandular density. There are no dominant masses or suspicious calcifications. Stable benign-appearing lymph node in the deep upper lateral aspect of the right breast. No other significant abnormalities are identified. There has been no significant change since the prior study. BI/SCRN MAMM (CAD)W/DAYANNA BILAT IMPRESSION: Stable bilateral screening mammogram. Yearly follow-up mammogram recommended. (A) ASSESSMENT CATEGORY: BIRADS Category 2: Benign. A letter regarding these results will be sent to the patient by the facility within 30 days. Approximately 10% of breast cancers are not detected by mammography. A normal mammogram should not delay biopsy of a clinically suspicious abnormality. [id number] Electronically Signed: Rick Manriquez MD at 14:36 EDT ,
== END | disposition home or self-care (01) ==
PROVIDERS: PCP Internal Medicine; Referring Provider Internal Medicine; Visit Provider Internal Medicine
DX: Z12.31 Encounter for screening mammogram for malignant neoplasm of breast (principal); S12.9XXA Fracture of neck, unspecified, initial encounter; Z80.3 Family history of malignant neoplasm of breast
CPT/HCPCS: 72125; 77063; 77067

== ENCOUNTER → 2023-01-25 | Outpatient (REF) | payer MEDICARE, MEDICAID, SELFPAY ==
[2023-01-25 10:05] LABS: Hematocrit 38.9 % (37-47); Mean Corp Hgb Conc 30.8 g/dL (32-36); Mean Corpuscular Hgb 28.6 pg (27.0-32.0); Mean Corpuscular Volume 92.8 fL (81-99); Mean Platelet Vol. 10.8 fl (6.2-12.0); Platelet Count 262 K/mm3 (150-450); RBC Distribution Width CV 16.3 % (11.6-14.6); RBC Distribution Width SD 55.7 fl (35.1-43.9); Red Blood Count 4.19 M/mm3 (4.2-5.4); White Blood Count 7.2 K/mm3 (4.4-11.0)
[2023-01-25 10:18] LABS: Anion Gap 4 (5-15); BUN 35 mg/dL (7-18); BUN/Creat Ratio 42.3 RATIO (10-20); Calcium,Total 10.1 mg/dL (8.5-10.1); Chloride 108 mmol/L (98-107); Creatinine, Serum 0.83 mg/dL (0.55-1.02); EST Glomerular Filtration Rate 71 mL/min (>60); Est Glom Filt Rate - Afr Amer 86 mL/min (>60); Glucose 110 mg/dL (74-106); Potassium 4.1 mmol/L (3.5-5.1); Sodium Level 139 mmol/L (136-145)
== END ==
LOC: OLS.SW 05:00
PROVIDERS: PCP Internal Medicine; Visit Provider Internal Medicine
DX: D64.9 Anemia, unspecified (principal); I10 Essential (primary) hypertension
CPT/HCPCS: 36415; 80048; 85027

== ENCOUNTER → 2023-02-22 05:00 | Outpatient (REF) | payer MEDICARE, MEDICAID, SELFPAY ==
[2023-02-22 09:15] LABS: Hematocrit 37.8 % (37-47); Hemoglobin 11.7 g/dL (12.0-15.0); Mean Corpuscular Hgb 28.3 pg (27.0-32.0); Mean Corpuscular Volume 91.3 fL (81-99); Mean Platelet Vol. 10.7 fl (6.2-12.0); Platelet Count 265 K/mm3 (150-450); RBC Distribution Width CV 15.9 % (11.6-14.6); Red Blood Count 4.14 M/mm3 (4.2-5.4); White Blood Count 6.5 K/mm3 (4.4-11.0)
[2023-02-22 09:30] LABS: Anion Gap 5 (5-15); BUN 26 mg/dL (7-18); BUN/Creat Ratio 33.5 RATIO (10-20); Calcium,Total 9.2 mg/dL (8.5-10.1); Chloride 108 mmol/L (98-107); Creatinine, Serum 0.78 mg/dL (0.55-1.02); EST Glomerular Filtration Rate 77 mL/min (>60); Est Glom Filt Rate - Afr Amer 93 mL/min (>60); Glucose 107 mg/dL (74-106); Potassium 4.2 mmol/L (3.5-5.1); Sodium Level 140 mmol/L (136-145)
== END ==
LOC: OLS.SW 05:00
PROVIDERS: PCP Internal Medicine; Visit Provider Internal Medicine
DX: I10 Essential (primary) hypertension (principal); D64.9 Anemia, unspecified
CPT/HCPCS: 36415; 80048; 85027

== ENCOUNTER → 2023-03-22 | Outpatient (REF) | payer MEDICARE, MEDICAID, SELFPAY ==
[2023-03-22 10:16] LABS: Hematocrit 37.8 % (37-47); Mean Corp Hgb Conc 31.7 g/dL (32-36); Mean Corpuscular Volume 91.3 fL (81-99); Mean Platelet Vol. 10.9 fl (6.2-12.0); Platelet Count 242 K/mm3 (150-450); RBC Distribution Width SD 53.3 fl (35.1-43.9); Red Blood Count 4.14 M/mm3 (4.2-5.4); White Blood Count 7.6 K/mm3 (4.4-11.0)
[2023-03-22 11:05] LABS: Anion Gap 6 (5-15); BUN 28 mg/dL (7-18); BUN/Creat Ratio 35.3 RATIO (10-20); Chloride 107 mmol/L (98-107); Creatinine, Serum 0.79 mg/dL (0.55-1.02); EST Glomerular Filtration Rate 75 mL/min (>60); Est Glom Filt Rate - Afr Amer 90 mL/min (>60); Glucose 98 mg/dL (74-106); Potassium 3.9 mmol/L (3.5-5.1); Sodium Level 139 mmol/L (136-145)
== END ==
LOC: OLS.SW 07:20
PROVIDERS: PCP Internal Medicine; Visit Provider Internal Medicine
DX: I10 Essential (primary) hypertension (principal); D64.9 Anemia, unspecified
CPT/HCPCS: 36415; 80048; 85027

== ENCOUNTER → 2023-04-19 | Outpatient (REF) | payer MEDICARE, MEDICAID, SELFPAY ==
[2023-04-19 09:35] LABS: Hematocrit 38.9 % (37-47); Hemoglobin 11.8 g/dL (12.0-15.0); Mean Corp Hgb Conc 30.3 g/dL (32-36); Mean Corpuscular Hgb 28.1 pg (27.0-32.0); Mean Corpuscular Volume 92.6 fL (81-99); Mean Platelet Vol. 10.9 fl (6.2-12.0); Platelet Count 247 K/mm3 (150-450); RBC Distribution Width CV 16.2 % (11.6-14.6); RBC Distribution Width SD 55.1 fl (35.1-43.9); White Blood Count 6.6 K/mm3 (4.4-11.0)
[2023-04-19 09:51] LABS: Anion Gap 5 (5-15); BUN 27 mg/dL (7-18); BUN/Creat Ratio 36.5 RATIO (10-20); Calcium,Total 9.5 mg/dL (8.5-10.1); Chloride 109 mmol/L (98-107); Creatinine, Serum 0.74 mg/dL (0.55-1.02); EST Glomerular Filtration Rate 81 mL/min (>60); Est Glom Filt Rate - Afr Amer 98 mL/min (>60); Glucose 107 mg/dL (74-106); Potassium 4.3 mmol/L (3.5-5.1); Sodium Level 141 mmol/L (136-145)
== END ==
LOC: OLS.SW 05:00
PROVIDERS: PCP Internal Medicine; Referring Provider Internal Medicine; Visit Provider Internal Medicine
DX: D64.9 Anemia, unspecified (principal); I10 Essential (primary) hypertension
CPT/HCPCS: 36415; 80048; 85027

== ENCOUNTER → 2023-05-17 | Outpatient (REF) | payer MEDICARE, MEDICAID, SELFPAY ==
[2023-05-17 09:54] LABS: Hematocrit 40.8 % (37-47); Hemoglobin 12.6 g/dL (12.0-15.0); Mean Corp Hgb Conc 30.9 g/dL (32-36); Mean Corpuscular Hgb 28.4 pg (27.0-32.0); Mean Corpuscular Volume 92.1 fL (81-99); Mean Platelet Vol. 10.4 fl (6.2-12.0); Platelet Count 254 K/mm3 (150-450); RBC Distribution Width CV 16.2 % (11.6-14.6); RBC Distribution Width SD 55.1 fl (35.1-43.9); Red Blood Count 4.43 M/mm3 (4.2-5.4); White Blood Count 8.5 K/mm3 (4.4-11.0)
[2023-05-17 10:31] LABS: Anion Gap 6 (5-15); BUN 34 mg/dL (7-18); BUN/Creat Ratio 36.6 RATIO (10-20); Calcium,Total 9.5 mg/dL (8.5-10.1); Chloride 108 mmol/L (98-107); Creatinine, Serum 0.93 mg/dL (0.55-1.02); EST Glomerular Filtration Rate 62 mL/min (>60); Est Glom Filt Rate - Afr Amer 75 mL/min (>60); Glucose 140 mg/dL (74-106); Potassium 3.8 mmol/L (3.5-5.1); Sodium Level 142 mmol/L (136-145)
== END ==
LOC: OLS.SW 08:30
PROVIDERS: PCP Internal Medicine; Visit Provider Internal Medicine
DX: D64.9 Anemia, unspecified (principal); I10 Essential (primary) hypertension
CPT/HCPCS: 36415; 80048; 85027

== ENCOUNTER → 2023-06-14 | Outpatient (REF) | payer MEDICARE, MEDICAID, SELFPAY ==
[2023-06-14 09:53] LABS: Hematocrit 41.2 % (37-47); Hemoglobin 12.6 g/dL (12.0-15.0); Mean Corp Hgb Conc 30.6 g/dL (32-36); Mean Corpuscular Hgb 28.6 pg (27.0-32.0); Mean Corpuscular Volume 93.6 fL (81-99); Platelet Count 244 K/mm3 (150-450); RBC Distribution Width CV 15.6 % (11.6-14.6); RBC Distribution Width SD 53.9 fl (35.1-43.9)
[2023-06-14 10:24] LABS: Anion Gap 5 (5-15); BUN 30 mg/dL (7-18); BUN/Creat Ratio 36.6 RATIO (10-20); Calcium,Total 9.2 mg/dL (8.5-10.1); Chloride 112 mmol/L (98-107); Creatinine, Serum 0.82 mg/dL (0.55-1.02); EST Glomerular Filtration Rate 72 mL/min (>60); Est Glom Filt Rate - Afr Amer 87 mL/min (>60); Glucose 112 mg/dL (74-106); Potassium 4.3 mmol/L (3.5-5.1); Sodium Level 143 mmol/L (136-145)
== END ==
LOC: OLS.SW 05:00
PROVIDERS: PCP Internal Medicine; Visit Provider Internal Medicine
DX: D64.9 Anemia, unspecified (principal); I10 Essential (primary) hypertension
CPT/HCPCS: 36415; 80048; 85027

== ENCOUNTER → 2023-07-05 | Outpatient (REF) | payer MEDICARE, MEDICAID, SELFPAY ==
[2023-07-05 08:33] LABS: Cholesterol 155 mg/dL (200); High Density Lipoprotein 60 mg/dL; Triglycerides 79 mg/dL; Very Low Density Lipoprotein 16 mg/dL (5-40)
== END ==
LOC: OLS.SW 05:00
PROVIDERS: PCP Internal Medicine; Visit Provider Internal Medicine
DX: E78.5 Hyperlipidemia, unspecified (principal)
CPT/HCPCS: 36415; 80061

== ENCOUNTER → 2023-07-12 | Outpatient (REF) | payer MEDICARE, MEDICAID, SELFPAY ==
[2023-07-12 08:58] LABS: Hemoglobin 12.1 g/dL (12.0-15.0); Mean Corpuscular Volume 93.5 fL (81-99); Mean Platelet Vol. 10.8 fl (6.2-12.0); Platelet Count 255 K/mm3 (150-450); RBC Distribution Width CV 15.5 % (11.6-14.6); Red Blood Count 4.17 M/mm3 (4.2-5.4)
[2023-07-12 09:09] LABS: Anion Gap 4 (5-15); BUN 34 mg/dL (7-18); BUN/Creat Ratio 42.5 RATIO (10-20); Chloride 110 mmol/L (98-107); EST Glomerular Filtration Rate 74 mL/min (>60); Est Glom Filt Rate - Afr Amer 90 mL/min (>60); Glucose 117 mg/dL (74-106); Potassium 4.2 mmol/L (3.5-5.1); Sodium Level 142 mmol/L (136-145)
== END ==
LOC: OLS.SW 05:00
PROVIDERS: PCP Internal Medicine; Visit Provider Family Medicine
DX: D64.9 Anemia, unspecified (principal); I10 Essential (primary) hypertension
CPT/HCPCS: 36415; 80048; 85027

== ENCOUNTER → 2023-08-08 | Outpatient (REF) | payer MEDICARE, MEDICAID, SELFPAY ==
[2023-08-08 09:46] LABS: Hematocrit 41.5 % (37-47); Hemoglobin 12.9 g/dL (12.0-15.0); Mean Corp Hgb Conc 31.1 g/dL (32-36); Mean Corpuscular Hgb 28.9 pg (27.0-32.0); Mean Platelet Vol. 10.7 fl (6.2-12.0); Platelet Count 247 K/mm3 (150-450); RBC Distribution Width CV 15.3 % (11.6-14.6); RBC Distribution Width SD 52.4 fl (35.1-43.9); Red Blood Count 4.46 M/mm3 (4.2-5.4); White Blood Count 6.9 K/mm3 (4.4-11.0)
[2023-08-08 09:57] LABS: Anion Gap 4 (5-15); BUN 33 mg/dL (7-18); BUN/Creat Ratio 32.4 RATIO (10-20); Calcium,Total 9.4 mg/dL (8.5-10.1); Chloride 109 mmol/L (98-107); Creatinine, Serum 1.02 mg/dL (0.55-1.02); EST Glomerular Filtration Rate 56 mL/min (>60); Est Glom Filt Rate - Afr Amer 68 mL/min (>60); Glucose 145 mg/dL (74-106); Iron 42 ug/dL (50-170); Iron Binding Capacity,Total 325 ug/dL (250-450); PERCENT IRON SATURATION 12.9 % (15.0-55.0); Potassium 3.9 mmol/L (3.5-5.1); Sodium Level 140 mmol/L (136-145)
== END ==
LOC: OLS.SW 07:40
PROVIDERS: PCP Internal Medicine; Visit Provider Internal Medicine
DX: D64.9 Anemia, unspecified (principal); I10 Essential (primary) hypertension
CPT/HCPCS: 36415; 80048; 83540; 83550; 85027

== ENCOUNTER → 2023-09-06 | Outpatient (CLI) | payer MEDICARE, MEDICAID, SELFPAY ==
[2023-09-06 17:42] LABS: Absolute Lymphocyte Count 1.74 X10^3/uL (0.83-4.51); Absolute Neutrophil Count 5.2 X10^3/uL (2.0-7.7); Basophil# 0.08 X10^3/uL; Eosinophil# 0.31 X10^3/uL; Eosinophils% 3.9 % (0-5); Hematocrit 41.8 % (37-47); Hemoglobin 13.2 g/dL (12.0-15.0); Lymphocyte # 1.74 X10^3/ul (0.83-4.51); Lymphocyte % 21.8 % (19-41); Mean Corp Hgb Conc 31.6 g/dL (32-36); Mean Corpuscular Hgb 29.1 pg (27.0-32.0); Mean Corpuscular Volume 92.3 fL (81-99); Mean Platelet Vol. 10.7 fl (6.2-12.0); Monocyte# 0.55 X10^3/uL; Monocyte% 6.9 % (0-10); NRBC Flagged by Analyzer 0 % (0-5); Neutrophil # 5.23 X10^3/uL (2.7-7.7); Neutrophil % 65.5 % (47-70); Platelet Count 284 K/mm3 (150-450); RBC Distribution Width CV 15.1 % (11.6-14.6); RBC Distribution Width SD 51.3 fl (35.1-43.9); Red Blood Count 4.53 M/mm3 (4.2-5.4)
[2023-09-06 18:00] LABS: Ferritin 30 ng/mL (8-252)
[2023-09-06 18:47] LABS: Vitamin B12 563 pg/mL (211-911); Vitamin D,25 Hydroxy 57.1 ng/mL
[2023-09-10 14:08] LABS: Vitamin D 1,25-Dihydroxy 22.3 pg/mL (24.8-81.5)
[2023-09-11 21:07] LABS: Zinc, Plasma or Serum 63 ug/dL (44-115)
== END | disposition home or self-care (01) ==
LOC: MTLAB 13:57
PROVIDERS: PCP Internal Medicine; Referring Provider Physician Assistant Medical; Visit Provider Physician Assistant Medical
DX: L65.9 Nonscarring hair loss, unspecified (principal)
CPT/HCPCS: 36415; 82306; 82607; 82652; 82728; 84630; 85025

== ENCOUNTER → 2023-09-07 | Outpatient (REF) | payer MEDICARE, MEDICAID, SELFPAY ==
--- OUTSIDE RECORDS SUMMARY | 2023-09-07 04:46 | XMS RPT_ITS | CCD ---
Author Name Unknown Address [facility] [place] [facility] [address] [place] [address] Organization [facility] Care Team Providers Care Armored Car Guard And Driver Name Role Phone PROVIDER, UNKNOWN Attending Unavailable PROVIDER, UNKNOWN Referring Unavailable Luan King Primary Care Unavailable Luan King Attending Unavailable PROVIDER, UNKNOWN Referring Unavailable Christine, Luan Primary Care Unavailable Christine, Luan Attending Unavailable PROVIDER, UNKNOWN Referring Unavailable Christine, Luan Primary Care Unavailable Unavailable Primary Care Provider Unavailabl e JEROMY HINSONNDRIA Referring Unavailable REGJEROMY KAMARANDRIA Attending Unavailable Problems Active Problems Problem Classification Problem Date Documented Da te Episodic/Chronic Osteoporosis (2 sources) Age-related osteoporosis without current pathological fracture; Translations: [Age-related osteoporosis w/o current pathological fracture] Onset: 12-05-2018 Chronic Other bone disease and musculoskeletal deformities (2 sources) Other specified disorders of bone density and structure, unspecified site; Translations: [Oth disrd of bone density and structure, unspecified site] Onset: 12-05-2018 Episodic Other screening for suspected conditions (not mental disorders or infectious disease) (4 sources) Encounter for screening mammogram for malignant neoplasm of breast; Translations: [Encounter for screening for osteoporosis] Onset: 06-10-2018 Episodic Residual codes; unclassified (2 sources) Asymptomatic menopausal state; Translations: [Asymptomatic menopausal state] Onset: 12-05-2018 Episodic Residual codes; unclassified (1 source) Pain; Translations: [Pain, unspecified] 06-26-2023 Episodic Residual codes; unclassified (1 source) Pain, unspecified; Translations: [Pain] Onset: 07-23-2023 Episodic Past or Other Problems Problem Classification Problem Date Documented Da te Episodic/Chronic Phlebitis; thrombophlebitis and thromboembolism (6 sources) Acute embolism and thrombosis of other specified deep vein of left lower extremity; Translations: [Acute embolism and thrombosis of left popliteal vein] Onset: 02-04-2018 Episodic Residual codes; unclassified (2 sources) Family history of malignant neoplasm of breast; Translations: [Family history of malignant neoplasm of breast] Onset: 06-10-2018 Episodic Results Test Name Value Interpretation Reference Range Facil ity Encounters Encounter Date Encounter Type Care Provider Facility Start: 07-23-2023 End: 07-23-2023 ambulatory ENEDINA HINSON Facility:[facility] Start: 06-26-2023 Orders Only Enedina Franklin kamara PA-C Work Phone: [facility] [place] Plan of Treatment Date Care Activity Detail Author Start: 04-27-2023 Influenza vaccination Influenza Vaccine (#1) [facility] Start: 08-27-2022 Advance Directive Discussion Advance Directive Discussion [facility] Start: 08-27-2022 Depression Assessment Depression Assessment [facility] Start: 02-19-2012 Bone Density Screening Bone Density Screening [facility] Start: 02-19-2012 Pneumococcal Vaccine: 65+ (1 - PCV) Pneumococcal Vaccine: 65+ (1 - PCV) [facility] Start: 2007 RSV Vaccine (1 - 1-dose 60+ series) RSV Vaccine (1 - 1-dose 60+ series) [facility] Start: 1997 Shingrix Vaccine (1 of 2) Shingrix Vaccine (1 of 2) [facility] Start: 02-19-1992 Diabetes Screening Diabetes Screening [facility] Start: 1966 Urine microalbumin profile DTaP,Tdap,Td Vaccine (1 - Tdap) [facility] Start: 1965 Hepatitis C Screening Hepatitis C Screening [facility] Start: 1947 Covid-19 Vaccine (#1) Covid-19 Vaccine (#1) [facility] End: 07-25-2024 XR WRIST GENERAL 3V PA/LAT/OBL RIGHT XR WRIST GENERAL 3V PA/LAT/OBL RIGHT Radiology Routine Pain 1 Occurrences starting 06/26/2023 until 07/25/2024 [facility] Work Phone: Payers Date Payer Category Payer Medicaid [facility] MEDICAID MYC ARE [facility] MEDICAID [id number] 2023-Present [phone] [address] [place] [address] Medicaid [id number] 2023 Medicaid [id number] 1945 Unknown [id number] 1947 Unknown [id number] 1947 Unknown [id number] Unknown Social History Date Type Detail Facility Tobacco smoking stat [facility] Tobacco smoking consumption unknown [facility] Start: 1945 Sex Assigned At Not on file [facility] Gender identity Not on file [facility] inic Progress note 07-23-2023 Note Date & Type Note Facility 07-23-2023 Note HNO ID: [id number] Author: Enedina Hinson PA-C Service: ? Author Type: Physician Outsole Beveler Type: Progress Notes Filed: 07/24/2023 2:47 PM Note Text: Enedina Hinson PA-C Department of Orthopaedics Orth[facility] [address] [place] [address] Dept: [phone] July 23, 2023 SUBJECTIVE: CHIEF COMPLAINT: Pain and New of the Right Wrist HPI: Ms. Claus Samuel is a 78 year old right hand dominant female. She presents today with right hand numbness that has been present for the past year. Today she rates her pain a 5 on a scale of 0 to 10. She states that her 2nd and 3rd digits are numb and tingly. The numbness is worse with activity and at night. She has a brace that she wears at night which has provided some relief. She denies any recent injury but notes that a year ago she broke her neck. She denies any weakness or previous hand surgeries. Past Medical History: History reviewed. No pertinent past medical history. Past Surgical History: History reviewed. No pertinent surgical history. Family History: History reviewed. No pertinent family history. Social History: Social History Tobacco Use Smoking status: Never Smokeless tobacco: Former Medications: Current Outpatient Medications Medication Sig acetaminophen (TYLENOL) 325 mg tablet Take 650 mg by mouth once daily. alendronate (FOSAMAX) 70 mg tablet Take 70 mg by mouth one time a week. allopurinol (ZYLOPRIM) 100 mg tablet Take 100 mg by mouth once daily. Biotin 1 mg tab Take 1,000 mcg by mouth once daily. buPROPion SR (WELLBUTRIN SR) 200 mg 12 hr tablet Take 200 mg by mouth once daily. cinacalcet (SENSIPAR) 30 mg tablet Take 30 mg by mouth once daily. clonazePAM (KLONOPIN) 0.5 mg tablet Take 0.5 mg by mouth once daily. losartan (COZAAR) 100 mg tablet Take 30 mg by mouth once daily. potassium chloride ER (KLOR-CON M10) 10 mEq tablet Take 1 tablet by mouth once daily. pravastatin (PRAVACHOL) 20 mg tablet Take 20 mg by mouth once daily. omeprazole (PRILOSEC) 20 mg capsule Take 1 tablet by mouth once daily. sertraline (ZOLOFT) 100 mg tablet Take 100 mg by mouth once daily. XARELTO 20 mg tablet Take 20 mg by mouth once daily. torsemide (DEMADEX) 10 mg tablet Take 10 mg by mouth once daily. traMADol (ULTRAM) 50 mg tablet Take 50 mg by mouth every 6 hours as needed for pain. Cetirizine (ZYRTEC) 10 mg cap Take 10 mg by mouth once daily as needed. No current facility-administered medications for this visit. Allergies: Latex ROS: General: negative for fatigue, malaise, weight loss/gain Musculoskeletal: see HPI Psych: no depression, anxiety OBJECTIVE: Ms. Claus Samuel is a pleasant 78 year old in no apparent distress. Gen:There were no vitals taken for this visit. nl development, non obese, no deformities ENT: Normocephalic, normal hearing, moist mucosa CV: Pulses:Radial= 2+ and symmetric, capillary refill < 2 secs, no peripheral edema/varicosities Skin: no rash, bruising or lesions. Good turgor. Psych: cooperative and appropriate, alert and oriented x 3, good mood and affect. Musculoskeletal: Right hand and wrist non-tender to palpation. There is evidence of thenar wasting. Decreased sensation on palmar aspect of 2nd and 3rd digit Phalen's: postive Tinel's: negative Button Sawyer strength: 5/5 IMAGIN07/23/2023 4:08 PM - Radiology, Oru In Impression IMPRESSION: Findings as discussed in results portion of report Metal Spinner: GERMAINE Transcribe Date/Time: Jul 23 2023 4:04P Dictated by : WALTER BRODY DO This examination was interpreted and the report reviewed and electronically signed by: WALTER BRODY DO on Jul 23 2023 4:06PM EST Results-Findings * * *Final Report* * * DATE OF EXAM: Jul 23 2023 1:23PM CHRISTINE 5271 - XR WRIST 3V PA/LAT/OBL RT / PROCEDURE REASON: [id number] * * * * Physician Interpretation * * * * EXAM(s): XR WRIST 3V PA/LAT/OBL RT EXAM DATE/TIME: 07/23/2023 1:23 PM HISTORY: 78 years old Clinical information: PAIN RIGHT WRIST TECHNIQUE: Images: XR WRIST 3V PA/LAT/OBL RT Comparison: None. RESULT: Findings: Marked bony demineralization. Calcification in the triangular cartilage noted. Severe narrowing of the radiocarpal joint extensive cystic changes throughout the carpal bones No fractures or dislocations are seen. ASSESSMENT: G56.01 Carpal tunnel syndrome of right wrist (primary encounter diagnosis) PLAN: Reviewed images taken today. Discussed treatment options for hand numbness including EMG and diagnostic/therapeutic carpal tunnel injection. Patient would like to try injection. Right carpal tunnel injection agreed upon and administered today. Advised patient that if she gets no relief would recommend EMG. Patient agreeable and will follow up as needed. PROCEDURE: Additional Injections: R carpal tunnel for carpal tunnel syndrome Informed Consent Consent Obtained: Verbal [place] Prot (more content not included)... [facility] Progress note 07-23-2023 Note Date & Type Note Facility 07-23-2023 Note HNO ID: [id number] Author: Belkys Plata Tech Service: ? Author Type: Mental Retardation Aide Type: Progress Notes Filed: 07/23/2023 1:35 PM Note Text: Radiology Service Progress Note PATIENT NAME: Claus Samuel DATE OF SERVICE: July 23, 2023 TIME: 1:34 PM PATIENT IDENTITY VERIFICATION COMPLETED USING TWO (2) IDENTIFIERS: Name and Date of confirmed by patient verbally. FALL SCREENING: Has the patient had 2 falls in the last year or 1 fall with injury or currently using an Ambulatory Assistive Device (Walker, Cane, Wheelchair, Crutches, etc.)? No PATIENT GENDER DATA: Female. status: : No status: NO. PATIENT RELEVANT IMPLANT DATA REVIEWED: Not Applicable RADIOLOGY DEPARTMENT: General X-ray: Exam(s) Completed: Upper Extremity X-Ray(s): Wrist, right PERIPHERAL IV DATA: Not applicable SIGNED BY: Karissa Gill July 23, 2023 1:34 PM [facility] Evaluation note Note Date & Type Note Facility documented in this encounter [facility] Reason for referral (narrative) Diagnostic Procedure Only (Routine) - Authorized Note Date & Type Note Facility Referral ID Status Reason Start Date Expiration Date Visits Requested Visits Authorized [id number] Authorized Auto-Generat ed Referral 3 07/25/2024 1 1 [facility] Summary Purpose Family History No Family History Records FoundNo Family History Records FoundNo Family History Records Found Advance Directives No Advanced Directives Records FoundNo Advanced Directives Records FoundNo Advanced Directives Records Found Additional Source Comments INFORMATION SOURCE (unrecogn ized section and content) DATE CREATED AUTHOR AUTHOR'S ORGANIZ ATION 07/24/2023 [facility] DATE CREATED AUTHOR AUTHOR'S ORGANIZ ATION 07/26/2023 [facility] Source Comments (unrecognize d section and content) In the event this informatio n is protected by the Federal Confidentiality of Alcohol and Drug Abuse Patient Records regulations: The Federal rules restrict any use of the information to criminally investigate or prosecute any alcohol or drug abuse patient.[facility] FOR RECORDS PERTAINING TO PATIENTS WHO ARE OR HAVE BEEN ENROLLED IN A CHEMICAL DEPENDENCY/SUBSTANCEABUSE PROGRAM, SOME INFORMATION MAY BE OMITTED. This clinical summary was aggregated from multiple sources. Caution should be exercised in using it in the provision of clinical care. This summary normalizes information from multiple sources, and as a consequence, information in this document may materially change the coding, format and clinical context of patient data. In addition, data may be omitted in some cases. CLINICAL DECISIONS SHOULD BE BASED ON THE PRIMARY CLINICAL RECORDS. [facility] [employer] [facility]. provides no warranty or guarantee of the accuracy or completeness of information in this document.
[2023-09-07 09:56] LABS: Hematocrit 40.2 % (37-47); Hemoglobin 12.7 g/dL (12.0-15.0); Mean Corp Hgb Conc 31.6 g/dL (32-36); Mean Corpuscular Hgb 29.1 pg (27.0-32.0); Mean Corpuscular Volume 92.2 fL (81-99); Mean Platelet Vol. 10.5 fl (6.2-12.0); Platelet Count 266 K/mm3 (150-450); RBC Distribution Width CV 15.1 % (11.6-14.6); RBC Distribution Width SD 50.9 fl (35.1-43.9); Red Blood Count 4.36 M/mm3 (4.2-5.4); White Blood Count 7.9 K/mm3 (4.4-11.0)
[2023-09-07 10:08] LABS: Anion Gap 6 (5-15); BUN 36 mg/dL (7-18); BUN/Creat Ratio 41.4 RATIO (10-20); Calcium,Total 9.6 mg/dL (8.5-10.1); Chloride 109 mmol/L (98-107); Creatinine, Serum 0.87 mg/dL (0.55-1.02); EST Glomerular Filtration Rate 67 mL/min (>60); Est Glom Filt Rate - Afr Amer 81 mL/min (>60); Glucose 113 mg/dL (74-106); Potassium 4.2 mmol/L (3.5-5.1); Sodium Level 142 mmol/L (136-145)
== END ==
LOC: OLS.SW 05:00
PROVIDERS: PCP Internal Medicine; Visit Provider Internal Medicine
DX: D64.9 Anemia, unspecified (principal)
CPT/HCPCS: 36415; 80048; 85027

== ENCOUNTER → 2023-10-05 | Outpatient (REF) | payer MEDICARE, MEDICAID, SELFPAY ==
--- OUTSIDE RECORDS SUMMARY | 2023-10-05 04:26 | XMS RPT_ITS | CCD ---
Author Name Unknown Address [facility] [address] [place] [address] Organization [facility] Care Team Providers Care Streets And Buildings Decorator Name Role Phone PROVIDER, UNKNOWN Attending Unavailable PROVIDER, UNKNOWN Referring Unavailable Luan King Primary Care Unavailable Luan King Attending Unavailable PROVIDER, UNKNOWN Referring Unavailable Christine, Luan Primary Care Unavailable Christine, Luna Attending Unavailable PROVIDER, UNKNOWN Referring Unavailable Christine, [...] kamara PA-C Work Phone: [facility] [place] Plan of Treatment Date Care Activity Detail Author Start: 04-27-2023 Influenza vaccination Influenza Vaccine (#1) [facility] Start: 08-27-2022 Advance Directive Discussion Advance Directive Discussion [facility] Start: 08-27-2022 Depression Assessment Depression Assessment [facility] Start: 02-19-2012 Bone Density Screening Bone Density Screening [facility] Start: 02-19-2012 Pneumococcal Vaccine: 65+ (1 - PCV) Pneumococcal Vaccine: 65+ (1 - PCV) [facility] Start: 2007 RSV Vaccine (1 - 1-dose 60+ series) RSV Vaccine (1 - 1-dose 60+ series) [facility] Start: 1997 Shingrix Vaccine (1 of 2) Shingrix Vaccine (1 of 2) [facility] Start: 02-19-1992 Diabetes Screening Diabetes Screening [facility] Start: 1966 Urine microalbumin profile DTaP,Tdap,Td Vaccine (1 - Tdap) [facility] Start: 1965 Hepatitis C Screening Hepatitis C Screening [facility] Start: 1945 Covid-19 Vaccine (#1) Covid-19 Vaccine (#1) [facility] End: 07-25-2024 XR WRIST GENERAL 3V PA/LAT/OBL RIGHT XR WRIST GENERAL 3V PA/LAT/OBL RIGHT Radiology Routine Pain 1 Occurrences starting 06/26/2023 until 07/25/2024 [facility] Work Phone: Payers Date Payer Category Payer Medicaid [facility] MEDICAID MYC ARE [facility] MEDICAID [id number] 2023-Present [phone] [address] [place] [address] Medicaid [id number] 2023 Medicaid [id number] 1945 Unknown [id number] 1945 Unknown [id number] 1945 Unknown [id number] Unknown Social History Date Type Detail Facility Tobacco smoking stat [facility] Tobacco smoking consumption unknown [facility] Start: 1945 Sex Assigned At Not on file [facility] Gender identity Not on file [facility] inic Progress note 07-23-2023 Note Date & Type Note Facility 07-23-2023 Note HNO ID: [id number] Author: Enedina Hinson PA-C Service: ? Author Type: Physician Steep Tender Type: Progress Notes Filed: 07/24/2023 2:47 PM Note Text: Enedina Hinson PA-C Department of Orthopaedics Orthopaedics [address] [place] [address] Dept: [phone] July 23, 2023 SUBJECTIVE: CHIEF COMPLAINT: Pain [...] and 3rd digit Phalen's: postive Tinel's: negative Lathe Sander strength: 5/5 IMAGIN07/23/2023 4:08 PM - Radiology, Oru In Impression IMPRESSION: Findings as discussed in results portion of report Data Systems Manager: GERMAINE Transcribe Date/Time: Jul 23 2023 4:04P Dictated by : WALTER BRODY DO This examination was interpreted and the report reviewed and electronically signed by: WALTER BRODY DO on Jul 23 2023 4:06PM EST Results-Findings * * *Final Report* * * DATE OF EXAM: Jul 23 2023 1:23PM CHRISTINE 5271 - XR WRIST 3V PA/LAT/OBL RT / PROCEDURE REASON: [id number] * * * * Physician Interpretation * [...] tunnel syndrome Informed Consent Consent Obtained: Verbal [place] Prot (more content not included)... [facility] Progress note 07-23-2023 Note Date & Type Note Facility 07-23-2023 Note HNO ID: [id number] Author: Belkys Plata Tech Service: ? Author Type: C Developer Type: Progress Notes Filed: 07/23/2023 1:35 PM [...] Karissa Gill July 23, 2023 1:34 PM [facility] Evaluation note Note Date & Type Note Facility documented in this encounter [facility] Reason for referral (narrative) Diagnostic Procedure Only (Routine) - Authorized Note Date & Type Note Facility Referral ID Status Reason Start Date Expiration Date Visits Requested Visits Authorized [id number] Authorized Auto-Generat ed Referral 3 07/25/2024 1 1 [facility] Summary Purpose Family History No Family History Records FoundNo Family History Records FoundNo Family History Records Found Advance Directives No Advanced Directives Records FoundNo Advanced Directives Records FoundNo Advanced Directives Records Found Additional Source Comments INFORMATION SOURCE (unrecogn ized section and content) DATE CREATED AUTHOR AUTHOR'S ORGANIZ ATION 07/24/2023 [facility] DATE CREATED AUTHOR AUTHOR'S ORGANIZ ATION 07/26/2023 [facility] Source Comments (unrecognize d section and content) In the event this informatio n is protected by the Federal Confidentiality of Alcohol and Drug Abuse Patient Records regulations: The Federal rules restrict any use of the information to criminally investigate or prosecute any alcohol or drug abuse patient.[facility] FOR RECORDS PERTAINING TO PATIENTS WHO ARE [...] BE BASED ON THE PRIMARY CLINICAL RECORDS. [facility] [facility]. provides no warranty or guarantee of the accuracy or completeness of information in this document.
[2023-10-05 07:07] LABS: Hematocrit 37.6 % (37-47); Hemoglobin 11.6 g/dL (12.0-15.0); Mean Corp Hgb Conc 30.9 g/dL (32-36); Mean Corpuscular Hgb 28.4 pg (27.0-32.0); Mean Corpuscular Volume 92.2 fL (81-99); Mean Platelet Vol. 10.5 fl (6.2-12.0); Platelet Count 247 K/mm3 (150-450); RBC Distribution Width CV 15.1 % (11.6-14.6); RBC Distribution Width SD 51.2 fl (35.1-43.9); Red Blood Count 4.08 M/mm3 (4.2-5.4)
[2023-10-05 07:23] LABS: Anion Gap 4 (5-15); BUN 28 mg/dL (7-18); BUN/Creat Ratio 37.4 RATIO (10-20); Calcium,Total 9.1 mg/dL (8.5-10.1); Chloride 111 mmol/L (98-107); Creatinine, Serum 0.75 mg/dL (0.55-1.02); EST Glomerular Filtration Rate 80 mL/min (>60); Est Glom Filt Rate - Afr Amer 97 mL/min (>60); Glucose 119 mg/dL (74-106); Potassium 4.2 mmol/L (3.5-5.1); Sodium Level 143 mmol/L (136-145)
== END ==
LOC: OLS.SW 05:00
PROVIDERS: PCP Internal Medicine; Visit Provider Internal Medicine
DX: D64.9 Anemia, unspecified (principal); I10 Essential (primary) hypertension
CPT/HCPCS: 36415; 80048; 85027

== ENCOUNTER → 2023-10-15 | Outpatient (REF) | payer MEDICARE, MEDICAID, SELFPAY ==
--- OUTSIDE RECORDS SUMMARY | 2023-10-15 05:57 | XMS RPT_ITS | CCD ---
Author Name Unknown Address [facility] [employer] [facility] [address] [place] [address] Organization [facility] Care Team Providers Care Photo Lab Specialist Name Role Phone PROVIDER, UNKNOWN Attending Unavailable [...] kamara PA-C Work Phone: [facility] [place] Plan of Treatment Date Care Activity Detail Author Start: 04-27-2023 Influenza vaccination Influenza Vaccine (#1) [facility] Start: 08-27-2022 Advance Directive Discussion Advance Directive Discussion [facility] Start: 08-27-2022 Depression Assessment Depression Assessment [facility] Start: 02-19-2012 Bone Density Screening Bone Density Screening [facility] Start: 02-19-2012 Pneumococcal Vaccine: 65+ (1 - PCV) Pneumococcal Vaccine: 65+ (1 - PCV) [facility] Start: 2007 RSV Vaccine (1 - 1-dose 60+ series) RSV Vaccine (1 - 1-dose 60+ series) [facility] Start: 1997 Shingrix Vaccine (1 of 2) Shingrix Vaccine (1 of 2) [facility] Start: 02-19-1992 Diabetes Screening Diabetes Screening [facility] Start: 1966 Urine microalbumin profile DTaP,Tdap,Td Vaccine (1 - Tdap) [facility] Start: 1965 Hepatitis C Screening Hepatitis C Screening [facility] Start: 1947 Covid-19 Vaccine (#1) Covid-19 Vaccine (#1) [facility] End: 07-25-2024 XR WRIST GENERAL 3V PA/LAT/OBL RIGHT XR WRIST GENERAL 3V PA/LAT/OBL RIGHT Radiology Routine Pain 1 Occurrences starting 06/26/2023 until 07/25/2024 [facility] Work Phone: Payers Date Payer Category Payer Medicaid [facility] MEDICA[facility] MYC ARE [facility] MEDICAID [id number] 2023-Present [phone] [address] [place] [address] Medicaid [id number] 2023 Medicaid [id number] 1947 Unknown [id number] 1947 Unknown [id number] 1947 Unknown [id number] Unknown Social History Date Type Detail Facility Tobacco smoking stat [facility] Tobacco smoking consumption unknown [facility] Start: 1945 Sex Assigned At Not on file [facility] Gender identity Not on file [facility] inic Progress note 07-23-2023 Note Date & Type Note Facility 07-23-2023 Note HNO ID: [id number] Author: Enedina Hinson PA-C Service: ? Author Type: Physician Application Project Leader Type: Progress Notes Filed: 07/24/2023 2:47 PM Note Text: Enedina Hinson PA-C Department of Orthopaedics Orthopaedics [address] [place] [address] Dept: [phone] July 23, 2023 SUBJECTIVE: CHIEF COMPLAINT: Pain [...] and 3rd digit Phalen's: postive Tinel's: negative Rail Car Loader strength: 5/5 IMAGIN07/23/2023 4:08 PM - Radiology, Oru In Impression IMPRESSION: Findings as discussed in results portion of report Drop Hammer Operator Helper: GERMAINE Transcribe Date/Time: Jul 23 2023 4:04P Dictated by : WALTER BRODY DO This examination was interpreted and the report reviewed and electronically signed by: WALTER BRODY DO on Jul 23 2023 4:06PM EST Results-Findings * * *Final Report* * * DATE OF EXAM: Jul 23 2023 1:23PM CHRISTINE 5271 - XR WRIST 3V PA/LAT/OBL RT / PROCEDURE REASON: [id number] * * * * Physician Interpretation * [...] tunnel syndrome Informed Consent Consent Obtained: Verbal [place] Prot (more content not included)... [facility] Progress note 07-23-2023 Note Date & Type Note Facility 07-23-2023 Note HNO ID: [id number] Author: Belkys Plata Tech Service: ? Author Type: Realtime Reporter Type: Progress Notes Filed: 07/23/2023 1:35 PM [...] Karissa Gill July 23, 2023 1:34 PM [facility] Evaluation note Note Date & Type Note Facility documented in this encounter [facility] Reason for referral (narrative) Diagnostic Procedure Only (Routine) - Authorized Note Date & Type Note Facility Referral ID Status Reason Start Date Expiration Date Visits Requested Visits Authorized [id number] Authorized Auto-Generat ed Referral 3 07/25/2024 1 1 [facility] Summary Purpose Family History No Family History Records FoundNo Family History Records FoundNo Family History Records Found Advance Directives No Advanced Directives Records FoundNo Advanced Directives Records FoundNo Advanced Directives Records Found Additional Source Comments INFORMATION SOURCE (unrecogn ized section and content) DATE CREATED AUTHOR AUTHOR'S ORGANIZ ATION 07/24/2023 [facility] DATE CREATED AUTHOR AUTHOR'S ORGANIZ ATION 07/26/2023 [facility] Source Comments (unrecognize d section and content) In the event this informatio n is protected by the Federal Confidentiality of Alcohol and Drug Abuse Patient Records regulations: The Federal rules restrict any use of the information to criminally investigate or prosecute any alcohol or drug abuse patient.[facility] FOR RECORDS PERTAINING TO PATIENTS WHO ARE [...] BE BASED ON THE PRIMARY CLINICAL RECORDS. [facility] [employer] [facility]. provides no warranty or guarantee of the accuracy or completeness of information in this document.
[2023-10-15 08:39] LABS: Anion Gap 4 (5-15); BUN 32 mg/dL (7-18); BUN/Creat Ratio 36.5 RATIO (10-20); Calcium,Total 9.5 mg/dL (8.5-10.1); Chloride 111 mmol/L (98-107); Creatinine, Serum 0.88 mg/dL (0.55-1.02); EST Glomerular Filtration Rate 67 mL/min (>60); Est Glom Filt Rate - Afr Amer 81 mL/min (>60); Glucose 123 mg/dL (74-106); Magnesium 2.3 mg/dL (1.6-2.6); Sodium Level 141 mmol/L (136-145)
== END ==
LOC: OLS.SW 05:00
PROVIDERS: PCP Internal Medicine; Visit Provider Internal Medicine
DX: D64.9 Anemia, unspecified (principal); E78.5 Hyperlipidemia, unspecified; I65.29 Occlusion and stenosis of unspecified carotid artery; F41.9 Anxiety disorder, unspecified; M10.9 Gout, unspecified
CPT/HCPCS: 36415; 80048; 83735

== ENCOUNTER → 2023-11-01 | Outpatient (REF) | payer MEDICARE, MEDICAID, SELFPAY ==
[2023-11-01 09:13] LABS: Hematocrit 34.9 % (37-47); Hemoglobin 11.1 g/dL (12.0-15.0); Mean Corp Hgb Conc 31.8 g/dL (32-36); Mean Corpuscular Hgb 29.1 pg (27.0-32.0); Mean Corpuscular Volume 91.4 fL (81-99); Mean Platelet Vol. 10.7 fl (6.2-12.0); Platelet Count 233 K/mm3 (150-450); RBC Distribution Width CV 14.7 % (11.6-14.6); RBC Distribution Width SD 49.1 fl (35.1-43.9); Red Blood Count 3.82 M/mm3 (4.2-5.4); White Blood Count 7.1 K/mm3 (4.4-11.0)
[2023-11-01 09:28] LABS: ALB/GLOB Ratio 0.6 RATIO (0.9-2.4); AST(SGOT) 14 U/L (15-37); Alanine Aminotransfer ALT/SGPT 15 U/L (13-56); Albumin, Serum 2.7 g/dL (3.2-5.0); Alkaline Phosphatase 49 U/L (45-117); Anion Gap 9 (5-15); BUN 31 mg/dL (7-18); BUN/Creat Ratio 36.6 RATIO (10-20); Calcium,Total 8.6 mg/dL (8.5-10.1); Chloride 108 mmol/L (98-107); Creatinine, Serum 0.85 mg/dL (0.55-1.02); EST Glomerular Filtration Rate 69 mL/min (>60); Est Glom Filt Rate - Afr Amer 84 mL/min (>60); Globulin 4.4 g/dL (2.2-4.2); Glucose 98 mg/dL (74-106); Potassium 3.6 mmol/L (3.5-5.1); Protein, Total 7.1 g/dL (6.4-8.2); Sodium Level 140 mmol/L (136-145)
== END ==
LOC: OLS.SW 05:00
PROVIDERS: PCP Internal Medicine; Visit Provider Internal Medicine
DX: K21.9 Gastro-esophageal reflux disease without esophagitis (principal)
CPT/HCPCS: 36415; 80053; 85027

== ENCOUNTER → 2023-11-02 | Outpatient (REF) | payer MEDICARE, MEDICAID, SELFPAY ==
--- OUTSIDE RECORDS SUMMARY | 2023-11-02 04:41 | XMS RPT_ITS | CCD ---
Author Name Unknown Address [facility] [address] [place] [address] Organization [facility] Care Team Providers Care It Application Administrator Name Role Phone PROVIDER, UNKNOWN Attending Unavailable [...] kamara PA-C Work Phone: [facility] [place] Plan of Treatment Date Care Activity Detail Author Start: 04-27-2023 Influenza vaccination Influenza Vaccine (#1) [facility] Start: 08-27-2022 Advance Directive Discussion Advance Directive Discussion [facility] Start: 08-27-2022 Depression Assessment Depression Assessment [facility] Start: 02-19-2012 Bone Density Screening Bone Density Screening [facility] Start: 02-19-2012 Pneumococcal Vaccine: 65+ (1 - PCV) Pneumococcal Vaccine: 65+ (1 - PCV) [facility] Start: 2007 RSV Vaccine (1 - 1-dose 60+ series) RSV Vaccine (1 - 1-dose 60+ series) [facility] Start: 1997 Shingrix Vaccine (1 of 2) Shingrix Vaccine (1 of 2) [facility] Start: 02-19-1992 Diabetes Screening Diabetes Screening [facility] Start: 1966 Urine microalbumin profile DTaP,Tdap,Td Vaccine (1 - Tdap) [facility] Start: 1965 Hepatitis C Screening Hepatitis C Screening [facility] Start: 1947 Covid-19 Vaccine (#1) Covid-19 Vaccine (#1) [facility] End: 07-25-2024 XR WRIST GENERAL 3V PA/LAT/OBL RIGHT XR WRIST GENERAL 3V PA/LAT/OBL RIGHT Radiology Routine Pain 1 Occurrences starting 06/26/2023 until 07/25/2024 [facility] Work Phone: Payers Date Payer Category Payer Medicaid [facility] MEDICAID MYC ARE [facility] MEDICAID [id number] 2023-Present [phone] [address] [place] [address] Medicaid [id number] 2023 Medicaid [id number] 1945 Unknown [id number] 1945 Unknown [id number] 1947 Unknown [id number] Unknown Social History Date Type Detail Facility Tobacco smoking stat [facility] Tobacco smoking consumption unknown [facility] Start: 1945 Sex Assigned At Not on file [facility] Gender identity Not on file [facility] inic Progress note 07-23-2023 Note Date & Type Note Facility 07-23-2023 Note HNO ID: [id number] Author: Enedina Hinson PA-C Service: ? Author Type: Physician Miller Head Assistant Wet Process Type: Progress Notes Filed: 07/24/2023 2:47 PM Note Text: Enedina Hinson PA-C Department of Orthopaedics Orthopaedics [address] [place] [address] Dept: [phone] July 23, 2023 SUBJECTIVE: CHIEF COMPLAINT: Pain [...] and 3rd digit Phalen's: postive Tinel's: negative Architectural Draftsman strength: 5/5 IMAGIN07/23/2023 4:08 PM - Radiology, Oru In Impression IMPRESSION: Findings as discussed in results portion of report Life Guard: GERMAINE Transcribe Date/Time: Jul 23 2023 4:04P Dictated by : WALTER BRODY DO This examination was interpreted and the report reviewed and electronically signed by: WALTER BRODY DO on Jul 23 2023 4:06PM EST Results-Findings * * *Final Report* * * DATE OF EXAM: Jul 23 2023 1:23PM CHRISTINE 5271 - XR WRIST 3V PA/LAT/OBL RT / PROCEDURE REASON: [id number] * * * * Physician Interpretation * [...] tunnel syndrome Informed Consent Consent Obtained: Verbal [place] Prot (more content not included)... [facility] Progress note 07-23-2023 Note Date & Type Note Facility 07-23-2023 Note HNO ID: [id number] Author: Belkys Plata Tech Service: ? Author Type: Toolroom Machinist Type: Progress Notes Filed: 07/23/2023 1:35 PM [...] Karissa Gill July 23, 2023 1:34 PM [facility] Evaluation note Note Date & Type Note Facility documented in this encounter [facility] Reason for referral (narrative) Diagnostic Procedure Only (Routine) - Authorized Note Date & Type Note Facility Referral ID Status Reason Start Date Expiration Date Visits Requested Visits Authorized [id number] Authorized Auto-Generat ed Referral 3 07/25/2024 1 1 [facility] Summary Purpose Family History No Family History Records FoundNo Family History Records FoundNo Family History Records Found Advance Directives No Advanced Directives Records FoundNo Advanced Directives Records FoundNo Advanced Directives Records Found Additional Source Comments INFORMATION SOURCE (unrecogn ized section and content) DATE CREATED AUTHOR AUTHOR'S ORGANIZ ATION 07/24/2023 [facility] DATE CREATED AUTHOR AUTHOR'S ORGANIZ ATION 07/26/2023 [facility] Source Comments (unrecognize d section and content) In the event this informatio n is protected by the Federal Confidentiality of Alcohol and Drug Abuse Patient Records regulations: The Federal rules restrict any use of the information to criminally investigate or prosecute any alcohol or drug abuse patient.[facility] FOR RECORDS PERTAINING TO PATIENTS WHO [...] BE BASED ON THE PRIMARY CLINICAL RECORDS. [facility] [employer] [facility]. provides no warranty or guarantee of the accuracy or completeness of information in this document.
[2023-11-02 08:24] LABS: Hematocrit 36.5 % (37-47); Hemoglobin 11.2 g/dL (12.0-15.0); Mean Corp Hgb Conc 30.7 g/dL (32-36); Mean Corpuscular Hgb 28.9 pg (27.0-32.0); Mean Corpuscular Volume 94.1 fL (81-99); Mean Platelet Vol. 10.6 fl (6.2-12.0); Platelet Count 277 K/mm3 (150-450); RBC Distribution Width CV 14.9 % (11.6-14.6); RBC Distribution Width SD 51.5 fl (35.1-43.9); Red Blood Count 3.88 M/mm3 (4.2-5.4); White Blood Count 8.7 K/mm3 (4.4-11.0)
[2023-11-02 08:32] LABS: Anion Gap 7 (5-15); BUN 32 mg/dL (7-18); BUN/Creat Ratio 32.5 RATIO (10-20); Calcium,Total 8.2 mg/dL (8.5-10.1); Chloride 108 mmol/L (98-107); Creatinine, Serum 0.98 mg/dL (0.55-1.02); EST Glomerular Filtration Rate 58 mL/min (>60); Est Glom Filt Rate - Afr Amer 70 mL/min (>60); Glucose 92 mg/dL (74-106); Potassium 3.6 mmol/L (3.5-5.1); Sodium Level 139 mmol/L (136-145)
== END ==
LOC: OLS.SW 05:00
PROVIDERS: PCP Internal Medicine; Visit Provider Internal Medicine
DX: D64.9 Anemia, unspecified (principal); I10 Essential (primary) hypertension; E78.5 Hyperlipidemia, unspecified; I65.29 Occlusion and stenosis of unspecified carotid artery; M10.9 Gout, unspecified
CPT/HCPCS: 36415; 80048; 85027

== ENCOUNTER → 2023-11-30 | Outpatient (REF) | payer MEDICARE, MEDICAID, SELFPAY ==
[2023-11-30 07:47] LABS: Mean Corp Hgb Conc 31.4 g/dL (32-36); Mean Corpuscular Hgb 28.8 pg (27.0-32.0); Mean Corpuscular Volume 91.6 fL (81-99); Mean Platelet Vol. 10.6 fl (6.2-12.0); Platelet Count 286 K/mm3 (150-450); RBC Distribution Width CV 14.9 % (11.6-14.6); RBC Distribution Width SD 49.9 fl (35.1-43.9); Red Blood Count 3.82 M/mm3 (4.2-5.4); White Blood Count 8.3 K/mm3 (4.4-11.0)
[2023-11-30 07:58] LABS: Anion Gap 4 (5-15); BUN 23 mg/dL (7-18); BUN/Creat Ratio 28.6 RATIO (10-20); Chloride 110 mmol/L (98-107); EST Glomerular Filtration Rate 74 mL/min (>60); Est Glom Filt Rate - Afr Amer 89 mL/min (>60); Glucose 108 mg/dL (74-106); Potassium 4.1 mmol/L (3.5-5.1); Sodium Level 140 mmol/L (136-145)
== END ==
LOC: OLS.SW 05:00
PROVIDERS: PCP Internal Medicine; Visit Provider Internal Medicine
DX: D64.9 Anemia, unspecified (principal); I10 Essential (primary) hypertension
CPT/HCPCS: 36415; 80048; 85027

== ENCOUNTER → 2023-12-28 05:00 | Outpatient (REF) | payer MEDICARE, MEDICAID, SELFPAY ==
[2023-12-28 07:44] LABS: Hematocrit 39.2 % (37-47); Hemoglobin 12.3 g/dL (12.0-15.0); Mean Corp Hgb Conc 31.4 g/dL (32-36); Mean Corpuscular Hgb 28.2 pg (27.0-32.0); Mean Corpuscular Volume 89.9 fL (81-99); Mean Platelet Vol. 10.9 fl (6.2-12.0); Platelet Count 259 K/mm3 (150-450); RBC Distribution Width CV 16.3 % (11.6-14.6); RBC Distribution Width SD 53.4 fl (35.1-43.9); Red Blood Count 4.36 M/mm3 (4.2-5.4); White Blood Count 8.9 K/mm3 (4.4-11.0)
[2023-12-28 08:55] LABS: Anion Gap 8 (5-15); BUN 33 mg/dL (7-18); BUN/Creat Ratio 34.5 RATIO (10-20); Calcium,Total 9.6 mg/dL (8.5-10.1); Chloride 107 mmol/L (98-107); Creatinine, Serum 0.96 mg/dL (0.55-1.02); EST Glomerular Filtration Rate 60 mL/min (>60); Est Glom Filt Rate - Afr Amer 73 mL/min (>60); Glucose 135 mg/dL (74-106); Potassium 3.9 mmol/L (3.5-5.1); Sodium Level 139 mmol/L (136-145)
== END ==
LOC: OLS.SW 05:00
PROVIDERS: PCP Internal Medicine; Visit Provider Internal Medicine
DX: D64.9 Anemia, unspecified (principal); I10 Essential (primary) hypertension; E78.5 Hyperlipidemia, unspecified; I65.29 Occlusion and stenosis of unspecified carotid artery; M10.9 Gout, unspecified; I82.509 Chronic embolism and thrombosis of unspecified deep veins of unspecified lower extremity
CPT/HCPCS: 36415; 80048; 85027

== ENCOUNTER → 2024-01-23 04:00 | Outpatient (REF) | payer MEDICARE, MEDICAID, SELFPAY ==
[2024-01-23 08:33] LABS: Iron 34 ug/dL (50-170)
== END ==
LOC: OLS.SW 04:00
PROVIDERS: PCP Internal Medicine; Referring Provider Internal Medicine; Visit Provider Internal Medicine
DX: Z79.899 Other long term (current) drug therapy (principal)
CPT/HCPCS: 36415; 83540

== ENCOUNTER → 2024-01-25 05:00 | Outpatient (REF) | payer MEDICARE, MEDICAID, SELFPAY ==
[2024-01-25 07:48] LABS: Hematocrit 38.4 % (37-47); Hemoglobin 11.9 g/dL (12.0-15.0); Mean Corpuscular Hgb 28.5 pg (27.0-32.0); Mean Corpuscular Volume 91.9 fL (81-99); Mean Platelet Vol. 10.5 fl (6.2-12.0); Platelet Count 232 K/mm3 (150-450); RBC Distribution Width CV 16.7 % (11.6-14.6); RBC Distribution Width SD 56.2 fl (35.1-43.9); Red Blood Count 4.18 M/mm3 (4.2-5.4); White Blood Count 5.8 K/mm3 (4.4-11.0)
[2024-01-25 08:07] LABS: Anion Gap 3 (5-15); BUN 24 mg/dL (7-18); BUN/Creat Ratio 27.5 RATIO (10-20); Calcium,Total 9.3 mg/dL (8.5-10.1); Chloride 107 mmol/L (98-107); Creatinine, Serum 0.87 mg/dL (0.55-1.02); EST Glomerular Filtration Rate 67 mL/min (>60); Est Glom Filt Rate - Afr Amer 81 mL/min (>60); Glucose 122 mg/dL (74-106); Sodium Level 138 mmol/L (136-145)
== END ==
LOC: OLS.SW 05:00
PROVIDERS: PCP Internal Medicine; Visit Provider Internal Medicine
DX: I11.0 Hypertensive heart disease with heart failure (principal)
CPT/HCPCS: 36415; 80048; 85027

== ENCOUNTER → 2024-02-22 05:00 | Outpatient (REF) | payer MEDICARE, MEDICAID, SELFPAY ==
[2024-02-22 07:49] LABS: Hematocrit 37.8 % (37-47); Hemoglobin 11.8 g/dL (12.0-15.0); Mean Corp Hgb Conc 31.2 g/dL (32-36); Mean Corpuscular Volume 92.9 fL (81-99); Mean Platelet Vol. 10.5 fl (6.2-12.0); Platelet Count 274 K/mm3 (150-450); RBC Distribution Width CV 16.4 % (11.6-14.6); RBC Distribution Width SD 55.4 fl (35.1-43.9); Red Blood Count 4.07 M/mm3 (4.2-5.4); White Blood Count 6.4 K/mm3 (4.4-11.0)
[2024-02-22 08:04] LABS: Anion Gap 4 (5-15); BUN 19 mg/dL (7-18); Calcium,Total 9.1 mg/dL (8.5-10.1); Chloride 111 mmol/L (98-107); Creatinine, Serum 0.86 mg/dL (0.55-1.02); EST Glomerular Filtration Rate 68 mL/min (>60); Est Glom Filt Rate - Afr Amer 82 mL/min (>60); Glucose 117 mg/dL (74-106); Sodium Level 141 mmol/L (136-145)
== END ==
LOC: OLS.SW 05:00
PROVIDERS: PCP Internal Medicine; Referring Provider Internal Medicine; Visit Provider Internal Medicine
DX: D64.9 Anemia, unspecified (principal); I10 Essential (primary) hypertension
CPT/HCPCS: 36415; 80048; 85027

== ENCOUNTER → 2024-03-21 | Outpatient (REF) | payer MEDICARE, MEDICAID, SELFPAY ==
[2024-03-21 07:41] LABS: Hematocrit 37.8 % (37-47); Hemoglobin 12.2 g/dL (12.0-15.0); Mean Corp Hgb Conc 32.3 g/dL (32-36); Mean Platelet Vol. 10.4 fl (6.2-12.0); Platelet Count 297 K/mm3 (150-450); RBC Distribution Width CV 16.2 % (11.6-14.6); RBC Distribution Width SD 52.7 fl (35.1-43.9); White Blood Count 6.7 K/mm3 (4.4-11.0)
[2024-03-21 07:58] LABS: Anion Gap 4 (5-15); BUN 21 mg/dL (7-18); BUN/Creat Ratio 23.6 RATIO (10-20); Calcium,Total 9.1 mg/dL (8.5-10.1); Chloride 111 mmol/L (98-107); Creatinine, Serum 0.89 mg/dL (0.55-1.02); EST Glomerular Filtration Rate 65 mL/min (>60); Est Glom Filt Rate - Afr Amer 79 mL/min (>60); Glucose 118 mg/dL (74-106); Sodium Level 139 mmol/L (136-145)
== END ==
LOC: OLS.SW 05:00
PROVIDERS: PCP Internal Medicine; Visit Provider Internal Medicine
DX: D64.9 Anemia, unspecified (principal); I10 Essential (primary) hypertension; M10.9 Gout, unspecified
CPT/HCPCS: 36415; 80048; 85027

== ENCOUNTER → 2024-04-18 05:00 | Outpatient (REF) | payer MEDICARE, MEDICAID, SELFPAY ==
[2024-04-18 07:38] LABS: Hematocrit 37.4 % (37-47); Hemoglobin 11.8 g/dL (12.0-15.0); Mean Corp Hgb Conc 31.6 g/dL (32-36); Mean Corpuscular Hgb 28.7 pg (27.0-32.0); Mean Platelet Vol. 10.6 fl (6.2-12.0); Platelet Count 266 K/mm3 (150-450); RBC Distribution Width CV 15.6 % (11.6-14.6); RBC Distribution Width SD 51.7 fl (35.1-43.9); Red Blood Count 4.11 M/mm3 (4.2-5.4); White Blood Count 8.6 K/mm3 (4.4-11.0)
[2024-04-18 08:23] LABS: Anion Gap 7 (5-15); BUN 22 mg/dL (7-18); BUN/Creat Ratio 24.8 RATIO (10-20); Chloride 107 mmol/L (98-107); Creatinine, Serum 0.89 mg/dL (0.55-1.02); EST Glomerular Filtration Rate 66 mL/min (>60); Est Glom Filt Rate - Afr Amer 79 mL/min (>60); Glucose 122 mg/dL (74-106); Potassium 3.7 mmol/L (3.5-5.1); Sodium Level 140 mmol/L (136-145)
== END ==
LOC: OLS.SW 05:00
PROVIDERS: PCP Internal Medicine; Visit Provider Internal Medicine
DX: I10 Essential (primary) hypertension (principal); D64.9 Anemia, unspecified
CPT/HCPCS: 36415; 80048; 85027

== ENCOUNTER → 2024-05-16 | Outpatient (REF) | payer MEDICARE, MEDICAID, SELFPAY ==
[2024-05-16 08:03] LABS: Hematocrit 39.2 % (37-47); Hemoglobin 12.3 g/dL (12.0-15.0); Mean Corp Hgb Conc 31.4 g/dL (32-36); Mean Corpuscular Hgb 28.9 pg (27.0-32.0); Mean Corpuscular Volume 92.2 fL (81-99); Mean Platelet Vol. 10.7 fl (6.2-12.0); Platelet Count 245 K/mm3 (150-450); RBC Distribution Width CV 16.4 % (11.6-14.6); RBC Distribution Width SD 54.8 fl (35.1-43.9); Red Blood Count 4.25 M/mm3 (4.2-5.4); White Blood Count 7.7 K/mm3 (4.4-11.0)
[2024-05-16 08:19] LABS: Anion Gap 7 (5-15); BUN 26 mg/dL (7-18); BUN/Creat Ratio 28.8 RATIO (10-20); Calcium,Total 9.4 mg/dL (8.5-10.1); Chloride 109 mmol/L (98-107); EST Glomerular Filtration Rate 64 mL/min (>60); Est Glom Filt Rate - Afr Amer 78 mL/min (>60); Glucose 111 mg/dL (74-106); Potassium 3.9 mmol/L (3.5-5.1); Sodium Level 139 mmol/L (136-145)
== END ==
LOC: OLS.SW 05:00
PROVIDERS: PCP Internal Medicine; Visit Provider Internal Medicine
DX: D64.9 Anemia, unspecified (principal); I10 Essential (primary) hypertension
CPT/HCPCS: 36415; 80048; 85027

== ENCOUNTER → 2024-05-21 | Outpatient (REF) | payer MEDICARE, MEDICAID, SELFPAY ==
[2024-05-21 08:55] LABS: Hematocrit 38.4 % (37-47); Hemoglobin 11.7 g/dL (12.0-15.0); Mean Corp Hgb Conc 30.5 g/dL (32-36); Mean Corpuscular Hgb 28.3 pg (27.0-32.0); Mean Platelet Vol. 10.5 fl (6.2-12.0); Platelet Count 267 K/mm3 (150-450); RBC Distribution Width CV 16.2 % (11.6-14.6); RBC Distribution Width SD 55.2 fl (35.1-43.9); Red Blood Count 4.13 M/mm3 (4.2-5.4); White Blood Count 6.9 K/mm3 (4.4-11.0)
[2024-05-21 09:05] LABS: Uric Acid 4.1 mg/dL (2.6-6.0)
== END ==
LOC: OLS.SW 06:00
PROVIDERS: PCP Internal Medicine; Visit Provider Internal Medicine
DX: R60.9 Edema, unspecified (principal); M10.9 Gout, unspecified
CPT/HCPCS: 36415; 84550; 85027; 86140

== ENCOUNTER → 2024-06-16 | Outpatient (REF) | payer MEDICARE, MEDICAID, SELFPAY ==
[2024-06-16 09:35] LABS: Absolute Lymphocyte Count 1.58 X10^3/uL (0.83-4.51); Absolute Neutrophil Count 4.7 X10^3/uL (2.0-7.7); Basophil# 0.06 X10^3/uL; Basophil% 0.8 % (0-1); Eosinophil# 0.35 X10^3/uL; Eosinophils% 4.6 % (0-5); Hematocrit 37.9 % (37-47); Hemoglobin 12.2 g/dL (12.0-15.0); Lymphocyte # 1.58 X10^3/ul (0.83-4.51); Lymphocyte % 20.9 % (19-41); Mean Corp Hgb Conc 32.2 g/dL (32-36); Mean Corpuscular Hgb 29.6 pg (27.0-32.0); Mean Platelet Vol. 10.8 fl (6.2-12.0); Monocyte# 0.81 X10^3/uL; Monocyte% 10.7 % (0-10); NRBC Flagged by Analyzer 0 % (0-5); Neutrophil # 4.72 X10^3/uL (2.7-7.7); Neutrophil % 62.6 % (47-70); Platelet Count 252 K/mm3 (150-450); RBC Distribution Width SD 54.4 fl (35.1-43.9); Red Blood Count 4.12 M/mm3 (4.2-5.4); White Blood Count 7.6 K/mm3 (4.4-11.0)
[2024-06-16 09:59] LABS: Vitamin B12 546 pg/mL (211-911); Vitamin D,25 Hydroxy 43.9 ng/mL
[2024-06-16 10:04] LABS: ALB/GLOB Ratio 0.7 RATIO (0.9-2.4); AST(SGOT) 13 U/L (15-37); Alanine Aminotransfer ALT/SGPT 15 U/L (13-56); Albumin, Serum 3.3 g/dL (3.2-5.0); Alkaline Phosphatase 64 U/L (45-117); Anion Gap 8 (5-15); BUN 22 mg/dL (7-18); BUN/Creat Ratio 22.8 RATIO (10-20); Calcium,Total 9.2 mg/dL (8.5-10.1); Chloride 108 mmol/L (98-107); Creatinine, Serum 0.97 mg/dL (0.55-1.02); EST Glomerular Filtration Rate 59 mL/min (>60); Est Glom Filt Rate - Afr Amer 72 mL/min (>60); Globulin 4.6 g/dL (2.2-4.2); Glucose 105 mg/dL (74-106); Magnesium 2.5 mg/dL (1.6-2.6); Potassium 4.2 mmol/L (3.5-5.1); Protein, Total 7.9 g/dL (6.4-8.2); Sodium Level 142 mmol/L (136-145)
[2024-06-16 11:46] LABS: Hemoglobin A1c 6.1 % (3.8-5.6)
== END ==
LOC: OLS.SWAL 05:00
PROVIDERS: PCP Internal Medicine; Visit Provider Internal Medicine
DX: I10 Essential (primary) hypertension (principal); E78.5 Hyperlipidemia, unspecified; D64.9 Anemia, unspecified
CPT/HCPCS: 36415; 80053; 82306; 82607; 83036; 83735; 84443; 85025

== ENCOUNTER 2024-07-09 18:25 | Emergency (ER) | payer MEDICARE, MEDICAID, SELFPAY ==
[2024-07-09 18:25] VITALS: BP 114/58; PULSE 64; RESP 18; TEMP 36.6; O2SAT 98; BMI 35.8
--- NOTE | 2024-07-09 18:47 | US_ITS ---
STUDY: VENOUS DOPPLER ULTRASOUND - LEFT LOWER EXTREMITY REASON FOR EXAM: Female, 79 years old. LT LEG PAIN TECHNIQUE: Ultrasound evaluation of the deep vein system to include tena-scale imaging and compression was performed. Tena-scale imaging and Doppler sonographic evaluation, including duplex spectral analysis and qualitative color flow sonography, was performed. COMPARISON: None. FINDINGS: Common Femoral Vein: Normal compression, spontaneity and augmentation. Normal color Doppler. Common Femoral Vein/Greater Saphenous Junction: Normal compression, spontaneity and augmentation. Normal color Doppler. Deep Femoral Vein: Normal compression, spontaneity and augmentation. Normal color Doppler. Femoral Proximal: Normal compression, spontaneity and augmentation. Normal color Doppler. Femoral Middle: Normal compression, spontaneity and augmentation. Normal color Doppler. Femoral Distal: Normal compression, spontaneity and augmentation. Normal color Doppler. Popliteal Vein: Normal compression, spontaneity and augmentation. Normal color Doppler. Posterior Tibial Vein: Normal compression, spontaneity and augmentation. Normal color Doppler. Peroneal Vein: Normal compression, spontaneity and augmentation. Normal color Doppler. There is no demonstrated deep venous thrombosis. US/Venous Duplex Imag/Limited/Uni IMPRESSION: Normal venous Doppler ultrasound of the lower extremity. Electronically Signed: Tha Washington MD at 20:24 EST ,
--- NOTE | 2024-07-09 20:50 | EX.ED.DYSGE1 ---
HPI History of Present Illness Chief Complaint: Lower Extremity Injury Detail of Chief Complaint: Pain medial aspect of left thigh Informant: patient Onset/Context/Timing Onset: Days Context: Sudden Onset Timing: Continuous Quality: Pain Location: Abductor canal Current Severity: Mild Maximum Severity: Moderate Worsened by: Palpation Relieved by: Nothing Associated Symptoms Associated Symptoms: No respiratory cardiac symptoms Narrative Narrative: Patient is a 79-year-old woman. She was sent in for evaluation of DVT. She has had 6 prior DVTs. She is on Plavix. Is on no anticoagulant. She denies shortness of breath, dyspnea on exertion, orthopnea or PND. She denies chest pain including pleuritic. She has bruises on her leg. She states she maybe bumped it. She denies paresthesia, anesthesia or motor weakness. She denies symptoms of claudication. Prior similar symptoms: Yes (DVT and trauma) Recent Illness/Hospitalization: No [facility] Medical History Injury of back Rectal bleeding Constipation Anticoagulated Presbyopia Unspecified nondisplaced fracture of sixth cervical vertebra, initial encounter for closed fracture Weakness Anxiety disorder, unspecified Age-related osteoporosis without current pathological fracture Other fracture of right lower leg, subsequent encounter for closed fracture with routine healing DVT (deep venous thrombosis) GERD (gastroesophageal reflux disease) Depression Hyperlipidemia Hypertension Home Medications ?Medication ?Instructions ?Recorded ?Last Taken ?Type alendronate 70 mg tablet 70 mg PO MO 08/07/21 Unknown History allopurinol 100 mg tablet 200 mg PO DAILY 08/07/21 Unknown History amlodipine 5 mg tablet 5 mg PO DAILY 08/07/21 Unknown History bupropion HCl 200 mg tablet,12 hr 200 mg PO BID 08/07/21 Unknown History sustained-release fluticasone propionate 50 1 spray intranasal DAILY 08/07/21 Unknown History mcg/actuation nasal spray,suspension loratadine 10 mg tablet 10 mg PO DAILY 08/07/21 Unknown History losartan 100 mg tablet 100 mg PO DAILY 08/07/21 Unknown History omeprazole 20 mg capsule,delayed 20 mg PO DAILY 08/07/21 Unknown History release potassium chloride 10 mEq 10 meq PO DAILY 08/07/21 Unknown History tablet,extended release(part/cryst) (Klor-Con M) pravastatin 20 mg tablet 20 mg PO QHS 08/07/21 Unknown History rivaroxaban 20 mg tablet (Xarelto) 20 mg PO QHS 08/07/21 08/21/22 History sertraline 100 mg tablet 100 mg PO DAILY 08/07/21 Unknown History torsemide 20 mg tablet 10 mg PO DAILY 08/07/21 Unknown History acetaminophen 325 mg tablet 650 mg (2 x 325 mg) PO Q6H PRN PRN 05/15/22 Unknown Rx (Tylenol) Pain Score 1-10/Temp > 100.7 F #0 tabs tramadol 50 mg tablet 50 mg PO Q6H PRN PRN Pain 07/08/22 Unknown History polyethylene glycol 3350 17 17 g PO DAILY #119 grams 07/10/22 Unknown Rx gram/dose oral powder (Miralax) Allergy/AdvReac Type Severity Reaction Status Date / Time Latex, Natural Rubber AdvReac Rash Verified 08/22/22 11:00 Social History housing: assisted living facility Smoking Status: Former smoker ROS ROS ED Constitutional Constitutional ED: Denies chills, fever(s), subjective, sweats or weight loss Cardiovascular Cardiovascular: Denies chest pain, orthopnea, palpitations or paroxysmal nocturnal dyspnea Respiratory/Chest Respiratory/Chest: Denies cough, dyspnea, dyspnea on exertion, orthopnea or paroxysmal nocturnal dyspnea Gastrointestinal Gastrointestinal: Denies abdominal pain, melena, nausea or vomiting Genitourinary Genitourinary ED: Denies hematuria Musculoskeletal Musculoskeletal: Denies arthralgias or myalgias Integumentary Reports other Details: Patient was unaware she had bruises. She has a bruise where the quadricep tendon inserts onto the patella. ; Denies rash Neurologic Neurologic: Denies paresthesias Hematologic/Lymphatic Hematologic/Lymphatic: Reports easy bruising; Denies easy bleeding EXAM Physical Exam Const Vital Signs: 07/09/24 18:25 Temperature 97.8 F Temperature Source Oral Pulse Rate 64 Respiratory Rate 18 Blood Pressure 114/58 L Blood Pressure Mean 76 Pulse Ox 98 Oxygen Delivery Method Room Air Positive well nourished and well developed General Appearance ED: well developed, NAD and pallor; Negative for cyanotic or diaphoretic HEENT Reports moist mucous membranes HEENT Narrative: Head is atraumatic normocephalic. Ears normal. Nares patent Eyes PERRL and EOMs intact bilaterally General Eye ED: Negative for pale conjunctiva or scleral icterus Neck no lymphadenopathy, supple and no JVD Resp normal respiratory effort and clear to auscultation bilaterally Cardio regular rate, regular rhythm, S1 normal heart sound, S2 normal heart sound and no murmurs Extremity Negative for normal to inspection Extremity Narrative: Bruises noted anterior left thigh. There is pain outpatient along the abductor canal. There is no palpable cords. There is no discoloration. PT pulses palpable 1+. There is no tenderness along the calf. Neuro oriented x3 and CN's II-XII intact bilaterally Sensorium / Orientation: alert Psych mental status grossly normal Skin no rashes or lesions noted, no wounds and skin turgor normal General Skin Exam: pallor; Negative for jaundice MDM MDM MDM Narrative Medical decision making narrative: With tenderness along the adductor canal and the fact that she has had 6 prior blood clots in her leg will obtain venous duplex to rule out DVT she is not low risk pretest probability. Differential would be DVT, soft tissue injury Radiography Diagnostic Testing: Clinical Impression(s) from Imaging Studies Venous Duplex 07/09/24 18:47 IMPRESSION: Normal venous Doppler ultrasound of the lower extremity. Electronically Signed: Tha Washington MD at 20:24 EST , Treatment and Re-Evaluation :: Patient was informed that the venous duplex study to rule out radiologist was negative. Discharge Plan Triage Chief Complaint: Lower Extremity Injury ED Provider: Eduardo Gilmore Dx/Rx/DC Orders Clinical Impression: Acute pain of left thigh, Contusion of left thigh, initial encounter, Antiplatelet or antithrombotic long-term use Instructions: ED Contusion, Lower Extremity Prescriptions: No Action torsemide 20 mg tablet 10 mg PO DAILY alendronate 70 mg tablet 70 mg PO MO sertraline 100 mg tablet 100 mg PO DAILY amlodipine 5 mg tablet 5 mg PO DAILY allopurinol 100 mg tablet 200 mg PO DAILY omeprazole 20 mg capsule,delayed release(DR/EC) 20 mg PO DAILY pravastatin 20 mg tablet 20 mg PO QHS losartan 100 mg tablet 100 mg PO DAILY fluticasone propionate 50 mcg/actuation spray,suspension 1 spray INTRANASAL DAILY loratadine 10 mg tablet 10 mg PO DAILY bupropion HCl 200 mg tablet sustained-release 12 hr 200 mg PO BID potassium chloride [Klor-Con M10] 10 mEq tablet,ER particles/crystals 10 meq PO DAILY Xarelto 20 mg tablet 20 mg PO QHS acetaminophen [Tylenol] 325 mg Tablet 650 mg PO Q6H PRN PRN (Reason: Pain Score 1-10/Temp > 100.7 F) Qty: 0 0RF tramadol 50 mg tablet 50 mg PO Q6H PRN PRN (Reason: Pain) polyethylene glycol 3350 [Miralax] 17 gram/dose powder 17 g PO DAILY Qty: 119 0RF Primary Care Provider: Gerda Wilks Referrals: Gerda Wilks MD [Primary Care Provider] - As Needed Print Language: Bulgarian Disposition Disposition: Home, Self Care
[2024-07-09 21:20] VITALS: BP 121/61; PULSE 61; RESP 18; TEMP 36.6; O2SAT 98
[2024-07-09 22:25] VITALS: PULSE 78; RESP 18; O2SAT 94
--- NOTE | 2024-07-09 23:38 | ED.RN ---
This racing secretary called physicians's for ride approx 2112, given 60 minutes. 2229 called again and given another 60 minutes. Called again at 5 and given another 60 min. This racing secretary asked dispatch to please call us when times are pushed back.
== END 2024-07-10 00:44 | disposition home or self-care (01) ==
PROVIDERS: Emergency Provider Emergency Medicine; PCP Internal Medicine; Referring Provider Emergency Medicine; Visit Provider Emergency Medicine
DX: S70.12XA Contusion of left thigh, initial encounter (principal); X58.XXXA Exposure to other specified factors, initial encounter; I10 Essential (primary) hypertension; K59.00 Constipation, unspecified; F41.9 Anxiety disorder, unspecified; F32.A Depression, unspecified; K21.9 Gastro-esophageal reflux disease without esophagitis; E78.5 Hyperlipidemia, unspecified; M81.0 Age-related osteoporosis without current pathological fracture; Z79.02 Long term (current) use of antithrombotics/antiplatelets; Z86.718 Personal history of other venous thrombosis and embolism; Z79.899 Other long term (current) drug therapy; Z87.891 Personal history of nicotine dependence
CPT/HCPCS: 93971; 99284

== ENCOUNTER → 2024-08-15 | Outpatient (REF) | payer MEDICARE, MEDICAID, SELFPAY ==
[2024-08-15 09:05] LABS: Anion Gap 5 (5-15); BUN 21 mg/dL (7-18); BUN/Creat Ratio 20.8 RATIO (10-20); Calcium,Total 8.6 mg/dL (8.5-10.1); Chloride 111 mmol/L (98-107); Creatinine, Serum 1.01 mg/dL (0.55-1.02); EST Glomerular Filtration Rate 56 mL/min (>60); Est Glom Filt Rate - Afr Amer 68 mL/min (>60); Glucose 108 mg/dL (74-106); Magnesium 2.1 mg/dL (1.6-2.6); Potassium 3.7 mmol/L (3.5-5.1); Sodium Level 142 mmol/L (136-145)
== END ==
LOC: OLS.SWAL 05:00
PROVIDERS: PCP Internal Medicine; Visit Provider Internal Medicine
DX: E78.5 Hyperlipidemia, unspecified (principal)
CPT/HCPCS: 36415; 80048; 83735

== ENCOUNTER → 2025-01-30 05:00 | Outpatient (REF) | payer MEDICARE, MEDICAID, SELFPAY ==
--- OUTSIDE RECORDS SUMMARY | 2025-01-30 04:28 | XMS RPT_ITS | CCD ---
Author Organization [facility] Care Team Providers Care Manager Payment Name Role Phone PROVIDER, UNKNOWN Attending Unavailable PROVIDER, UNKNOWN Referring Unavailable Cary, Yesika Primary Care Unavailable Cary, Yesika Attending Unavailable PROVIDER, UNKNOWN Referring Unavailable Cary, Yesika Primary Care Unavailable Cary, Yesika Attending Unavailable PROVIDER, UNKNOWN Referring Unavailable Cary, Yesika Primary Care Unavailable Dr. Gerda Wilks Primary Care Provider Dr. Ladonna Sidhu Emergency Provider Dr. Osman Nance Admit Provider Dr. Osman Nance Attending Provider Dr. Osman Nance Other Provider Dr. Niranjan Hartman Other Provider Dr. Israel Garaz Attending Provider Dr. Israel Garza Other Provider Dr. Gerda Wilks Primary Care Provider Dr. Ladonna Sidhu Emergency Provider Dr. Osman Nance Admit Provider Dr. Osman Nance Attending Provider Dr. Osman Nance Other Provider Dr. Niranjan Hartman Other Provider Dr. Israel Garza Attending Provider Dr. Israel Garza Other Provider Dr. Tha Baron Emergency Provider Maegan Dr. Vu Admit Provider [facility], [facility] Other Provider Dr. Salina Li Attending Provider Dr. Salina Li Other Provider Dr. Emily Marti Other Provider Dr. Emily Marti Attending Provider [facility], Dr. Vu Referring Provider Dr. Gerda Wilks Referring Provider Unavailable Dr. Gerda Wilks Primary Care Provider UnavailDr. Tha West Emergency Provider [facility], Dr. Vu Admit Provider [facility], Dr. Vu Attending Provider [facility], Dr. Vu Other Provider [facility], Dr. uV Referring Provider Dr. Salina Li Attending Provider Dr. Salina Li Other Provider Dr. Emily Marti Other Provider Dr. Emily Marti Attending Provider Dr. Gerda Wilks Referring Provider Unavailable Dr. Gerda Wilks Primary Care Provider Unavaila Dr. Gerda De Luna Referring Provider Unavailable Dr. Salina Li Attending Provider Dr. Salina Li Other Provider Unavailable Primary Care Provider Unavailabl e REGOTTI, ENEDINA Referring Unavailable Unavailable Primary Care Provider Unavailabl e REGOTTI, ENEDINA Referring Unavailable REGOTTI, ENEDINA Attending Unavailable REGOTTI, ENEDINA Referring Unavailable REGOTTI, ENEDINA Attending Unavailable Gudla Gerda ROJO Attending Unavailable Gudla Gerda ROJO Referring Unavailable Gudla, Gerda Primary Care Unavailable Gudla Gerda ROJO Attending Unavailable Gudla, Gerda Primary Care Unavailable Gudla Gerda ROJO Attending Unavailable Gudla, Gerda Primary Care Unavailable Gudla Gerda ROJO Attending Unavailable Gudla, Gerda Primary Care Unavailable Gudla Gerda ROJO Attending Unavailable Gudla, Gerda Primary Care Unavailable Gudla Gerda ROJO Attending Unavailable Gudla, Gerda Primary Care Unavailable Kendell Bradley Attending Unavailabl e Gudla, Gerda Primary Care Unavailable Gilmore, Eduardo Referring Unavailable Gudla, Gerda Primary Care Unavailable Gilmore, Eduardo Attending Unavailable Allergies Allergy Classification Reported Allergen(s) Allergy Type Date of Onset Reaction(s) Facility (20 sources) natural latex rubber; Translations: [Latex, Natural Rubber] Propensity to adverse reactions 2022 Rash [facility] (5 sources) Latex; Translations: [LATEX] Drug Allergy 07-23-2023 Swelling [facility] Medications Current Medications Medication Drug Class(es) Dates Sig (Normalized) Sig (Original) acetaminophen 325 mg oral tablet (20 sources) Start: 05-15-2022 take 2 tablets by mouth every six hours as needed Acetaminophen (Tylenol) 325 mg Tablet Active 650 MG PO EVERY 6 HOURS NEEDED 0 May 15, 2022 12:00am take 2 tablets by mouth once emma ly acetaminophen (TYLENOL) 325 mg tablet Take 650 mg by mouth once daily. 0 Active Comment on above: Take 650 mg by mouth once daily. alendronic acid 70 mg oral tablet (20 sources) Bisphosphonate Start: 1 take 1 tablet by mouth every week alendronate (FOSAMAX) 70 mg tablet Take 70 mg by mouth one time a week. 0 06/25/2023 Active Comment on above: Take 70 mg by mouth one time a week. allopurinol 100 mg oral tablet (20 sources) Xanthine Oxidase Inhibitor Start: 3 take 1 tablet by mouth once daily allopurinol (ZYLOPRIM) 100 mg tablet Take 100 mg by mouth once daily. 0 07/11/2023 Active Start: 08-07-2021 take 200 mg by mouth once sammy y Allopurinol Active 200 MG PO DAILY August 07, 2021 1:00am Comment on above: Take 100 mg by mouth once daily. amLODIPine 5 mg oral tablet (20 sources) Dihydropyridine Calcium Channel Elana Start: take 5 mg by mouth once daily Amlodipine Active 5 MG PO DAILY August 07, 2021 1:00am Start: 08-07-2021 take 5 mg by mouth twice daily Amlodipine Active 5 MG PO TWICE A DAY August 07, 2021 1:00am biotin 1 mg oral tablet (3 sources) Start: 05-18-2020 Biotin 1 mg ta b Take 1,000 mcg by mouth once daily. 0 05/18/2020 Active Comment on above: Take 1,000 mcg by mo ut once daily. 12 hr buPROPion hydrochloride 200 mg extended release oral tablet (20 sources) Aminoketone Start: 06-27-2023 take 1 tablet by mouth once daily buPROPion SR (WELLBUTRIN SR) 200 mg 12 hr tablet Take 200 mg by mouth once daily. 0 06/27/2023 Active Start: 08-07-2021 take 200 mg by mouth twice emma ly Bupropion Hcl Active 200 MG PO TWICE A DAY August 07, 2021 1:00am Comment on above: Take 200 mg by mouth once daily. cetirizine hydrochloride 10 mg oral capsule (3 sources) Histamine-1 Receptor Antagonist take 1 capsule by mouth once daily as needed Cetirizine (ZYRTEC) 10 mg cap Take 10 mg by mouth once daily as needed. 0 Active Comment on above: Take 10 mg by mouth once daily as needed. cinacalcet 30 mg oral tablet (3 sources) Calcium-sensing Receptor Agonist Start: 06-27-20 take 1 tablet by mouth once daily cinacalcet (SENSIPAR) 30 mg tablet Take 30 mg by mouth once daily. 0 06/27/2023 Active Comment on above: Take 30 mg by mouth once daily. clonazePAM 0.5 mg oral tablet (20 sources) Benzodiazepine Start: 07-05-20 take 1 tablet by mouth once daily clonazePAM (KLONOPIN) 0.5 mg tablet Take 0.5 mg by mouth once daily. 0 07/05/2023 Active Start: 08-07-2021 End: 05-15-2022 take 0.5 mg by mouth every twelve hours as needed Clonazepam Discontinued 0.5 MG PO EVERY 12 HOURS NEEDED August 07, 2021 1:00am May 15, 2022 10:28am Comment on above: Take 0.5 mg by mouth once daily. ferrous sulfate 325 mg delayed release oral tablet (3 sources) Start: 08-07-2021 Ferrous Sulfate Active MG PO August 07, 2021 1:00am fluticasone propionate 0.05 mg/actuat metered dose nasal spray (20 sources) Corticosteroid Start: 08-07-2021 Fluticasone Propionate Active 1 SPRAY INTRANASAL DAILY August 07, 2021 1:00am Start: 08-07-2021 loratadine 10 mg oral tablet (20 sources) Start: 08-07-2021 take 10 mg by mouth once daily Loratadine Active 10 MG PO DAILY August 07, 2021 1:00am losartan potassium 100 mg oral tablet (20 sources) Angiotensin 2 Receptor Elana Start: 07-11-2023 losartan (COZAAR) 100 mg tablet Take 30 mg by mouth once daily. 0 07/11/2023 Active Start: 08-07-2021 take 100 mg by mouth once sammy y Losartan Active 100 MG PO DAILY August 07, 2021 1:00am Comment on above: Take 30 mg by mouth once daily. nystatin 100 unt/mg topical powder (7 sources) Polyene Antifungal Start: 05-15-20 Nystatin (Nyamyc) 100,000 unit/gram Powder Active 1 APPLIC TOPICAL TWICE A DAY 0 May 14, 2022 11:00pm omeprazole 20 mg delayed release oral capsule (20 sources) Proton Pump Inhibitor Start: 11-04-19 21 take 1 tablet by mouth once daily omeprazole (PRILOSEC) 20 mg capsule Take 1 tablet by mouth once daily. 0 11/03/2020 Active Comment on above: Take 1 tablet by chloe once daily. polyethylene glycol 3350 74758 mg powder for oral solution (20 sources) Osmotic Laxative Start: 07-10-20 Polyethylene Glycol 3350 (Miralax) 17 gram/dose powder Active 17 GM PO DAILY 119 July 10, 2022 1:00am microencapsulated potassium chloride 10 meq extended release oral tablet (20 sources) Start: 08-07-20 21 take 1 tablet by mouth once daily potassium chloride ER (KLOR-CON M10) 10 mEq tablet Take 1 tablet by mouth once daily. 0 07/08/2023 Active Comment on above: Take 1 tablet by chloe th once daily. pravastatin sodium 20 mg oral tablet (20 sources) HMG-CoA Reductase Inhibitor Start: 08-07-20 take 1 tablet by mouth once daily pravastatin (PRAVACHOL) 20 mg tablet Take 20 mg by mouth once daily. 0 06/27/2023 Active Comment on above: Take 20 mg by mouth once daily. rivaroxaban 20 mg oral tablet (20 sources) Factor Xa Inhibitor Start: 08-07-20 take 1 tablet by mouth once daily XARELTO 20 mg tablet Take 20 mg by mouth once daily. 0 07/17/2023 Active Comment on above: Take 20 mg by mouth once daily. sertraline 100 mg oral tablet (20 sources) Serotonin Reuptake Inhibitor Start: 08-07-20 take 1 tablet by mouth once daily sertraline (ZOLOFT) 100 mg tablet Take 100 mg by mouth once daily. 0 07/11/2023 Active Comment on above: Take 100 mg by mouth once daily. torsemide 10 mg oral tablet (20 sources) Loop Diuretic Start: 07-13-20 take 1 tablet by mouth once daily torsemide (DEMADEX) 10 mg tablet Take 10 mg by mouth once daily. 0 07/13/2023 Active Start: 08-07-2021 take 10 mg by mouth once daily Torsemide Active 10 MG PO DAILY August 07, 2021 1:00am Start: 08-07-2021 take 40 mg by mouth once daily Torsemide Active 40 MG PO DAILY August 07, 2021 12:00am Start: 08-07-2021 take 40 mg by mouth twice sammy y Torsemide Active 40 MG PO TWICE A DAY August 07, 2021 1:00am Comment on above: Take 10 mg by mouth once daily. Completed/Discontinued Medications Medication Drug Class(es) Dates Sig (Normalized) Sig (Original) traMADol hydrochloride 50 mg oral tablet (20 sources) Opioid Agonist Start: 2022 End: 07-08-2022 take 50 mg by mouth every six hours as needed Tramadol Active 50 MG PO EVERY 6 HOURS NEEDED July 08, 2022 12:19pm Start: 2022 End: 07-08-2022 take 50 mg by mouth every eight hours Tramadol Discontinued 50 MG PO Q8H 9 3 May 15, 2022 10:28am July 08, 2022 12:19pm Comment on above: Take 50 mg by mouth every 6 hours as needed for pain. Problems Active Problems Problem Classification Problem Date Documented Da te Episodic/Chronic Disorders of lipid metabolism (1 source) Hyperlipidemia, unspecified; Translations: [Hyperlipidemia, unspecified] Onset: 5 Chronic E Codes: Fall (20 sources) Fall; Translations: [Unspecified fall, initial encounter] Episodic Essential hypertension (2 sources) Essential (primary) hypertension; Translations: [Essential (primary) hypertension] Onset: 4 Chronic Fracture of lower limb (20 sources) Fracture of ankle; Translations: [Other fracture of right lower leg, initial encounter for closed fracture] Episodic Gastrointestinal hemorrhage (20 sources) Acute lower gastrointestinal hemorrhage; Translations: [Gastrointestinal hemorrhage, unspecified] Episodic Gout and other crystal arthropathies (1 source) Gout, unspecified; Translations: [Gout, unspecified] Onset: 4 Chronic Joint disorders and dislocations; trauma-related (20 sources) Anterior dislocation of shoulder joint; Translations: [Anterior dislocation of right humerus, initial encounter] 08-15-2021 Episodic Open wounds of head; neck; and trunk (20 sources) Facial laceration ; Translations: [Laceration without foreign body of other part of head, initial encounter] 07-07-2022 Episodic Osteoporosis (2 sources) Age-related osteoporosis without current pathological fracture; Translations: [Age-related osteoporosis w/o current pathological fracture] Onset: 9 Chronic Other aftercare (20 sources) Drug therapy finding; Translations: [longterm (current) use of anticoagulants] 07-24-2022 Episodic Other aftercare (20 sources) Surgical follow-up; Translations: [Encounter for removal of sutures] 07-18-2022 Episodic Other aftercare (20 sources) 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; Translations: [Long-term (current) use of anticoagulants] Episodic Other aftercare (14 sources) Encounter for removal of sutures; Translations: [Encounter for removal of sutures] Episodic Other bone disease and musculoskeletal deformities (2 sources) Other specified disorders of bone density and structure, unspecified site; Translations: [Oth disrd of bone density and structure, unspecified site] Onset: 9 Episodic Other fractures (20 sources) Closed fracture of sixth cervical vertebra; Translations: [Unspecified displaced fracture of sixth cervical vertebra, initial encounter for closed fracture] 07-07-2022 Episodic Other gastrointestinal disorders (20 sources) Constipation; Translations: [Constipation, unspecified] 07-24-2022 Episodic Other gastrointestinal disorders (20 sources) Constipation, unspecified; Translations: [Constipation, unspecified] Episodic Other injuries and conditions due to external causes (20 sources) Wound hemorrhage; Translations: [Other injury of unspecified body region, initial encounter] 07-07-2022 Episodic Other nervous system disorders (20 sources) Difficulty walking; Translations: [Difficulty in walking, not elsewhere classified] 05-14-2022 Chronic Other nervous system disorders (12 sources) Difficulty in walking, not elsewhere classified; Translations: [Difficulty in walking] Chronic Other nervous system disorders (2 sources) Carpal tunnel syndrome of right wrist; Translations: [Carpal tunnel syndrome, right upper limb] 11-29-2023 Chronic Other nervous system disorders (1 source) Lesion of right median nerve; Translations: [Other lesions of median nerve, right upper limb] 03-07-2024 Chronic Other nervous system disorders (1 source) Carpal tunnel syndrome, right upper limb; Translations: [Carpal tunnel syndrome of right wrist] Onset: 4 Chronic Other nervous system disorders (2 sources) Skin sensation disturbance; Translations: [Unspecified disturbances of skin sensation] 11-29-2023 Episodic Other nervous system disorders (1 source) Paresthesia; Translations: [Paresthesia of skin] 03-07-2024 Episodic Other nervous system disorders (1 source) Unspecified disturbances of skin sensation; Translations: [Disturbance of skin sensation] Onset: 4 Episodic Other non-traumatic joint disorders (1 source) Acute ankle pain; Translations: [Pain in right ankle and joints of right foot] Episodic Other non-traumatic joint disorders (1 source) Pain in right ankle and joints of right foot; Translations: [Pain in joint, ankle and foot] Episodic Other screening for suspected conditions (not mental disorders or infectious disease) (4 sources) Encounter for screening mammogram for malignant neoplasm of breast; Translations: [Encounter for screening for osteoporosis] Onset: 8 Episodic Residual codes; unclassified (2 sources) Asymptomatic menopausal state; Translations: [Asymptomatic menopausal state] Onset: 9 Episodic Residual codes; unclassified (2 sources) Pain; Translations: [Pain, unspecified] 06-26-2023 Episodic Residual codes; unclassified (1 source) Pain, unspecified; Translations: [Pain] Onset: Episodic Sprains and strains (20 sources) Shoulder strain; Translations: [Strain of unspecified muscle, fascia and tendon at shoulder and upper arm level, right arm, initial encounter] 02-26-2022 Episodic Superficial injury; contusion (20 sources) Contusion of face; Translations: [Contusion of other part of head, initial encounter] Episodic Past or Other Problems Problem Classification Problem Date Documented Da te Episodic/Chronic Deficiency and other anemia (2 sources) Anemia, unspecified; Translations: [Anemia, unspecified] Onset: 05-07-2024 Episodic Other connective tissue disease (1 source) Pain in left thigh; Translations: [Pain in left thigh] Onset: 08-24-2024 Episodic Other connective tissue disease (1 source) Pain in unspecified foot; Translations: [Pain in unspecified foot] Onset: 06-27-2024 Episodic Phlebitis; thrombophlebitis and thromboembolism (6 sources) Acute embolism and thrombosis of other specified deep vein of left lower extremity; Translations: [Acute embolism and thrombosis of left popliteal vein] Onset: 02-04-2018 Episodic Residual codes; unclassified (2 sources) Family history of malignant neoplasm of breast; Translations: [Family history of malignant neoplasm of breast] Onset: 06-10-2018 Episodic Residual codes; unclassified (1 source) Edema, unspecified; Translations: [Edema, unspecified] Onset: 06-27-2024 Episodic Results Test Name Value Interpretation Reference Range Facility Basic Metabolic Profile (BMP )on 01-29-2025 BUN Normal - [facility] Comment on above: Order Comment: 128 Result Comment: RENETTA ENT REFUSED Performed By: #### L 500.2500, L100.0500 #### [facility] [address] [place], [place], [address] BUN/CRE Normal - [facility] Comment on above: Order Comment: 128 Result Comment: RENETTA ENT REFUSED Performed By: #### L 500.2500, L100.0500 #### [facility] [address] [place], [address] Calcium Normal 7.6-11.0 [facility] Comment on above: Order Comment: 128 Result Comment: RENETTA ENT REFUSED Performed By: #### L 500.2500, L100.0500 #### [facility] [address] [place], [address] CL Normal 98-108 [facility] Comment on above: Order Comment: 128 Result Comment: RENETTA ENT REFUSED Performed By: #### L 500.2500, L100.0500 #### [facility] [address] [place], [address] CO2 Normal 21.0-32.0 [facility] Comment on above: Order Comment: 128 Result Comment: RENETTA ENT REFUSED Performed By: #### L 500.2500, L100.0500 #### [facility] [address] [place], [address] CREAT,SERUM Normal 0.70-1.20 [facility] Comment on above: Order Comment: 128 Result Comment: RENETTA ENT REFUSED Performed By: #### L 500.2500, L100.0500 #### [facility] [address] [place], [address] eGFR Normal >60 [facility] Comment on above: Order Comment: 128 Result Comment: RENETTA ENT REFUSED Performed By: #### L 500.2500, L100.0500 #### [facility] [address] [place], [address] GAP Normal 5-15 [facility] Comment on above: Order Comment: 128 Result Comment: RENETTA ENT REFUSED Performed By: #### L 500.2500, L100.0500 #### [facility] [address] [place], [address] GLU Normal 70-99 [facility] Comment on above: Order Comment: 128 Result Comment: RENETTA ENT REFUSED Performed By: #### L 500.2500, L100.0500 #### [facility] [address] [place], [address] Potassium Normal 3.3-5.1 [facility] Comment on above: Order Comment: 128 Result Comment: RENETTA ENT REFUSED Performed By: #### L 500.2500, L100.0500 #### [facility] [address] [place], [address] Basic Metabolic Profile (BMP) Normal 133-145 [facility] Comment on above: Order Comment: 128 Result Comment: RENETTA ENT REFUSED Performed By: #### L 500.2500, L100.0500 #### [facility] [address] [place], [address] CBC-Complete Blood Cnt No Di ffon 01-29-2025 HCT Normal 37-47 [facility] Comment on above: Order Comment: 128 Result Comment: RENETTA ENT REFUSED Performed By: #### L 500.2500, L100.0500 #### [facility] [address] [place], [address] HGB Normal 12.0-15.0 [facility] Comment on above: Order Comment: 128 Result Comment: RENETTA ENT REFUSED Performed By: #### L 500.2500, L100.0500 #### [facility] [address] [place], [address] MCH Normal 27.0-32.0 [facility] Comment on above: Order Comment: 128 Result Comment: RENETTA ENT REFUSED Performed By: #### L 500.2500, L100.0500 #### [facility] [address] [place], [address] MCHC Normal 32-36 [facility] Comment on above: Order Comment: 128 Result Comment: RENETTA ENT REFUSED Performed By: #### L 500.2500, L100.0500 #### [facility] [address] [place], [address] MCV Normal 81-99 [facility] Comment on above: Order Comment: 128 Result Comment: RENETTA ENT REFUSED Performed By: #### L 500.2500, L100.0500 #### [facility] [address] [place], [address] PLT Normal 150-450 [facility] Comment on above: Order Comment: 128 Result Comment: RENETTA ENT REFUSED Performed By: #### L 500.2500, L100.0500 #### [facility] [address] [place], [address] RBC Normal 4.2-5.4 [facility] Comment on above: Order Comment: 128 Result Comment: RENETTA ENT REFUSED Performed By: #### L 500.2500, L100.0500 #### [facility] [address] [place], [address] RDW CV Normal 11.6-14.6 [facility] Comment on above: Order Comment: 128 Result Comment: RENETTA ENT REFUSED Performed By: #### L 500.2500, L100.0500 #### [facility] [address] [place], [address] RDW SD Normal 35.1-43.9 [facility] Comment on above: Order Comment: 128 Result Comment: RENETTA ENT REFUSED Performed By: #### L 500.2500, L100.0500 #### [facility] [address] [place], [address] WBC Normal 4.4-11.0 [facility] Comment on above: Order Comment: 128 Result Comment: RENETTA ENT REFUSED Performed By: #### L 500.2500, L100.0500 #### [facility] [address] [place], [address] Basic Metabolic Profile (BMP )on 08-15-2024 BUN/CRE 20.8 RATIO High 06-15 [facility] Comment on above: Order Comment: 128 Performed By: #### L 500.2500, L100.0500 #### [facility] [address] [place], [address] CA,Total 8.6 mg/dL Normal 8.5-10.1 [facility] Comment on above: Order Comment: 128 Performed By: #### L 500.2500, L100.0500 #### [facility] [address] [place], [address] Chloride [Moles/Vol] 111 mmol/L High 98-107 [facility] Comment on above: Order Comment: 128 Performed By: #### L 500.2500, L100.0500 #### [facility] [address] [place], [address] CO2 [Moles/Vol] 26.0 mmol/L Normal 21.0-32.0 [facility] Comment on above: Order Comment: 128 Performed By: #### L 500.2500, L100.0500 #### [facility] [address] [place], [address] Creatinine [Mass/Vol] 1.01 mg/dL Normal 0.55-1.02 [facility] Comment on above: Order Comment: 128 Result Comment: The validity of the calculated GFR GFRAA in patients over 70 years has not been determined. Clinical correlation is essential. Performed By: #### L 500.2500, L100.0500 #### [facility] [address] [place], [address] EST GFR - AA 68 mL/min Normal >60 [facility] Comment on above: Order Comment: 128 Result Comment: Afri can [place] GFR Calc Performed By: #### L 500.2500, L100.0500 #### [facility] [address] [place], [address] GAP 5 Normal 5-15 [facility] Comment on above: Order Comment: 128 Performed By: #### L 500.2500, L100.0500 #### [facility] [address] [place], [address] GFR/1.73 sq M.predicted among non-blacks MDRD (S/P/Bld) [Vol rate/Area] 56 mL/min/{1.73_m2} Low >60 [facility] Comment on above: Order Comment: 128 Result Comment: Non- GFR Calc Performed By: #### L 500.2500, L100.0500 #### [facility] [address] [place], [address] Glucose [Mass/Vol] 108 mg/dL High 74-106 [facility] Comment on above: Order Comment: 128 Result Comment: Fast ing Glucose result from 100 to 125 mg/dL suggests IMPAIRED HOMEOSTASIS per A.D.A. criteria. Performed By: #### L 500.2500, L100.0500 #### [facility] [address] [place], [address] Potassium [Moles/Vol] 3.7 mmol/L Normal 3.5-5.1 [facility] Comment on above: Order Comment: 128 Performed By: #### L 500.2500, L100.0500 #### [facility] [address] [place], [address] Sodium [Moles/Vol] 142 mmol/L Normal 136-145 [facility] Comment on above: Order Comment: 128 Performed By: #### L 500.2500, L100.0500 #### [facility] [address] [place], [address] Urea nitrogen [Mass/Vol] 21 mg/dL High 7-18 [facility] Comment on above: Order Comment: 128 Performed By: #### L 500.2500, L100.0500 #### [facility] [address] [place], [address] Magnesiumon 08-15-2024 Magnesium [Mass/Vol] 2.1 mg/dL Normal 1.6-2.6 [facility] Comment on above: Order Comment: 128 Performed By: #### L 500.2500, L100.0500 #### [facility] [address] [place], [address] Emergency Department Summary on 07-09-2024 Emergency Department Summary [facility] Medical Records Department [address] [place] [address] Emergency Department Summary 07/09/24 MR#: [id number] Acct: [id number] Name: KAMILAH MCKEON Rep #: [id number] : 1945 79 From: Eduardo Gilmore MD PCP: Gerda Wilks MD Status:REG ER Location: ED HPI History of Present Illness Chief Complaint: Lower Extremity Injury Detail of Chief Complaint: Pain medial aspect of left thigh Informant: patient Onset/Context/Timin g Onset: Days Context: Sudden Onset Timing: Continuous Quality: Pain Location: Abductor canal Current Severity: Mild Maximum Severity: Moderate Worsened by: Palpation Relieved by: Nothing Associated Symptoms Associated Symptoms: No respiratory cardiac symptoms Narrative Narrative: Patient is a 79-year-old woman. She was sent in for evaluation of DVT. She has had 6 prior DVTs. She is on Plavix. Is on no anticoagulant. She denies shortness of breath, dyspnea on exertion, or thopnea or PND. She denies chest pain including pleuritic. She has bruises on her leg. She states she maybe bumped it. She denies paresthesia, anesthesia or motor weakness. She denies symptoms of claudication. Prior similar symptoms: Yes (DVT and trauma) Recent Illness/[facility]iza tion: [facility] Medical History Injury of back Rectal bleeding Constipation Anticoagulated Presbyopia Unspecified nondisplaced fracture of sixth cervical vertebra, initial encounter for closed fracture Weakness Anxiety disorder, unspecified Age-related osteoporosis without current pathological fracture Other fracture of right lower leg, subsequent encounter for closed fracture with routine healing DVT (deep venous thrombosis) GERD (gastroesophageal reflux disease) Depression Hyperlipidemia Hypertension Home Medications ???Medication ???Instructions ???Recorded ???Last Taken ???Type alendronate 70 mg tablet 70 mg PO MO 08/07/21 Unknown History allopurinol 100 mg tablet 200 mg PO DAILY 08/07/21 Unknown History amlodipine 5 mg tablet 5 mg PO DAILY 08/07/21 Unknown History bupropion HCl 200 mg tablet,12 hr 200 mg PO BID 08/07/21 Unknown History sustained-release fluticasone propionate 50 1 spray intranasal DAILY 08/07/21 Unknown History mcg/actuation nasal spray,suspension loratadine 10 mg tablet 10 mg PO DAILY 08/07/21 Unknown History losartan 100 mg tablet 100 mg PO DAILY 08/07/21 Unknown History omeprazole 20 mg capsule,delayed 20 mg PO DAILY 08/07/21 Unknown History release potassium chloride 10 mEq 10 meq PO DAILY 08/07/21 Unknown History tablet,extended release(part/cryst) (Klor-Con M) pravastatin 20 mg tablet 20 mg PO QHS 08/07/21 Unknown History rivaroxaban 20 mg tablet (Xarelto) 20 mg PO QHS 08/07/21 08/21/22 History sertraline 100 mg tablet 100 mg PO DAILY 08/07/21 Unknown History torsemide 20 mg tablet 10 mg PO DAILY 08/07/21 Unknown History acetaminophen 325 mg tablet 650 mg (2 x 325 mg) PO Q6H PRN PRN 05/15/22 Unknown Rx (Tylenol) Pain Score 1-10/Temp > 100.7 F #0 tabs tramadol 50 mg tablet 50 mg PO Q6H PRN PRN Pain 07/08/22 Unknown History polyethylene glycol 3350 17 17 g PO DAILY #119 grams 07/10/22 Unknown Rx gram/dose oral powder (Miralax) Allergy/AdvReac Type Severity Reaction Status Date / Time Latex, Natural Rubber AdvReac Rash Verified 08/22/22 11:00 Social History housing: assisted living facility Smoking Status: Former smoker ROS ROS ED Constitutional Constitutional ED: Denies chills, fever(s), subjective, sweats or weight loss Cardiovascular Cardiovascular: Denies chest pain, orthopnea, palpitations or paroxysmal nocturnal dyspnea Respiratory/Chest Respiratory/Chest: Denies cough, dyspnea, dyspnea on exertion, orthopnea or paroxysmal nocturnal dyspnea Gastrointestinal Gastrointestinal: Denies abdominal pain, melena, nausea or vomiting Genitourinary Genitourinary ED: Denies hematuria Musculoskeletal Musculoskeletal: Denies arthralgias or myalgias Integumentary Reports other Details: Patient was unaware she had bruises. She has a bruise where the quadricep tendon inserts onto the patella. ; Denies rash Neurologic Neurologic: Denies paresthesias Hematologic/Lymphat ic Hematologic/Lymphat ic: Reports easy bruising; Denies easy bleeding EXAM Physical Exam Const Vital Signs: 07/09/24 18:25 Temperature 97.8 F Temperature Source Oral Pulse Rate 64 Respiratory Rate 18 Blood Pressure 114/58 L Blood Pressure Mean 76 Pulse Ox 98 Oxygen Delivery Method Room Air Positive well nourished and well developed General Appearance ED: well developed, NAD and pallor; Negative for cyanotic or diaphoretic HEENT Reports moist muco (more content not included)... Normal [facility] Venous Duplex Imag/Limited/U nion 07-09-2024 Venous Duplex Imag/Limited/Uni [facility] Imaging Services [address] [address] Venous Duplex Imag/Limited/Uni MR#: [id number] Acct: [id number] Name: KAMILAH MCKEON Rep #: [id number] : 1945 F 79 From: Tha Washington MD PCP: Gerda Wilks MD Status: REG ER Study: Venous Duplex Imag/Limited/Uni Date of Exam: 09/08/23 Exam# [id number] Ordering Dr: Eduardo Gilmore MD -[id number] STUDY: VENOUS DOPPLER ULTRASOUND - LEFT LOWER EXTREMITY REASON FOR EXAM: Female, 79 years old. LT LEG PAIN TECHNIQUE: Ultrasound evaluation of the deep vein system to include tena-scale imaging and compression was performed. Tena-scale imaging and Doppler sonographic evaluation, including duplex spectral analysis and qualitative color flow sonography, was performed. COMPARISON: None. FINDINGS: Common Femoral Vein: Normal compression, spontaneity and augmentation. Normal color Doppler. Common Femoral Vein/Greater Saphenous Junction: Normal compression, spontaneity and augmentation. Normal color Doppler. Deep Femoral Vein: Normal compression, spontaneity and augmentation. Normal color Doppler. Femoral Proximal: Normal compression, spontaneity and augmentation. Normal color Doppler. Femoral Middle: Normal compression, spontaneity and augmentation. Normal color Doppler. Femoral Distal: Normal compression, spontaneity and augmentation. Normal color Doppler. Popliteal Vein: Normal compression, spontaneity and augmentation. Normal color Doppler. Posterior Tibial Vein: Normal compression, spontaneity and augmentation. Normal color Doppler. Peroneal Vein: Normal compression, spontaneity and augmentation. Normal color Doppler. There is no demonstrated deep venous thrombosis. US/Venous Duplex Imag/Limited/Uni IMPRESSION: Normal venous Doppler ultrasound of the lower extremity. Electronically Signed: Tha Washington MD at 20:24 EST Reading Location ID and State: [id number] [place] [address] , Service support , CC: Dr. Eduardo Gilmore MD; Gerda Wilks MD [employer] Journeyman: Signed Normal [facility] CBC W/Diff, Automatedon 10-2 Absolute Lymph 1.58 X10 3/uL Normal 0.83-4.51 [facility] Comment on above: Order Comment: 510-1 Performed By: #### L 500.2500, L100.0500 #### [facility] [address] [place], [address] Absolute Neut 4.7 X10 3/uL Normal 2.0-7.7 [facility] Comment on above: Order Comment: 510-1 Performed By: #### L 500.2500, L100.0500 #### [facility] [address] [place], [address] Basophils/100 WBC (Bld) 0.8 % Normal 0-1 [facility] Comment on above: Order Comment: 510-1 Performed By: #### L 500.2500, L100.0500 #### [facility] [address] [place], [address] Eosinophils/100 WBC (Bld) 4.6 % Normal 0-5 [facility] Comment on above: Order Comment: 510-1 Performed By: #### L 500.2500, L100.0500 #### [facility] [address] [place], [address] Erythrocyte distribution width (RBC) [Ratio] 16.0 % High 11.6-14.6 [facility] Comment on above: Order Comment: 510-1 Performed By: #### L 500.2500, L100.0500 #### [facility] [address] [place], [address] Hematocrit (Bld) [Volume fraction] 37.9 % Normal 37-47 [facility] Comment on above: Order Comment: 510-1 Performed By: #### L 500.2500, L100.0500 #### [facility] [address] [place], [address] Hemoglobin (Bld) [Mass/Vol] 12.2 g/dL Normal 12.0-15.0 [facility] Comment on above: Order Comment: 510-1 Performed By: #### L 500.2500, L100.0500 #### [facility] [address] [place], [address] IG% 0.400 Normal 0.0-0.9 [facility] Comment on above: Order Comment: 510-1 Result Comment: IG% - Immature Granulocytes (promyelocytes, myelocytes and metamyelocytes) > 1% indicates that a LEFT SHIFT is Present. Performed By: #### L 500.2500, L100.0500 #### [facility] [address] [place], [address] Lymphocytes/100 WBC (Bld) 20.9 % Normal 19-41 [facility] Comment on above: Order Comment: 510-1 Performed By: #### L 500.2500, L100.0500 #### [facility] [address] [place], [address] MCH (RBC) [Entitic mass] 29.6 pg Normal 27.0-32.0 [facility] Comment on above: Order Comment: 510-1 Performed By: #### L 500.2500, L100.0500 #### [facility] [address] [place], [address] MCHC (RBC) [Mass/Vol] 32.2 g/dL Normal 32-36 [facility] Comment on above: Order Comment: 510-1 Performed By: #### L 500.2500, L100.0500 #### [facility] [address] [place], [address] MCV (RBC) [Entitic vol] 92.0 fL Normal 81-99 [facility] Comment on above: Order Comment: 510-1 Performed By: #### L 500.2500, L100.0500 #### [facility] [address] [place], [address] Monocytes/100 WBC (Bld) 10.7 % High 0-10 [facility] Comment on above: Order Comment: 510-1 Performed By: #### L 500.2500, L100.0500 #### [facility] [address] [place], [address] Neutrophils/100 WBC (Bld) 62.6 % Normal 47-70 [facility] Comment on above: Order Comment: 510-1 Performed By: #### L 500.2500, L100.0500 #### [facility] [address] [place], [address] Nucleated RBC (Bld) [#/Vol] 0 10*3/uL Normal 0-5 [facility] Comment on above: Order Comment: 510-1 Performed By: #### L 500.2500, L100.0500 #### [facility] [address] [place], [address] Platelet mean volume (Bld) [Entitic vol] 10.8 fL Normal 6.2-12.0 [facility] Comment on above: Order Comment: 510-1 Performed By: #### L 500.2500, L100.0500 #### [facility] [address] [place], [address] Platelets (Bld) [#/Vol] 252 10*3/uL Normal 150-450 [facility] Comment on above: Order Comment: 510-1 Performed By: #### L 500.2500, L100.0500 #### [facility] [address] [place], [address] RBC (Bld) [#/Vol] 4.12 10*6/uL Low 4.2-5.4 [facility] Comment on above: Order Comment: 510-1 Performed By: #### L 500.2500, L100.0500 #### [facility] [address] [place], [address] RDW SD 54.4 fl High 35.1-43.9 [facility] Comment on above: Order Comment: 510-1 Performed By: #### L 500.2500, L100.0500 #### [facility] [address] [place], [address] WBC (Bld) [#/Vol] 7.6 10*3/uL Normal 4.4-11.0 [facility] Comment on above: Order Comment: 510-1 Performed By: #### L 500.2500, L100.0500 #### [facility] [address] [place], [address] Comprehensive Metabolic Prof ilon 06-16-2024 Albumin [Mass/Vol] 3.3 g/dL Normal 3.2-5.0 [facility] Comment on above: Order Comment: 510-1 Performed By: #### L 500.2500, L100.0500 #### [facility] [address] [place], [address] Albumin/Globulin [Mass ratio] 0.7 {ratio} Low 0.9-2.4 [facility] Comment on above: Order Comment: 510-1 Performed By: #### L 500.2500, L100.0500 #### [facility] [address] [place], [address] ALK P 64 U/L Normal 45-117 [facility] Comment on above: Order Comment: 510-1 Performed By: #### L 500.2500, L100.0500 #### [facility] [address] [place], [address] ALT [Catalytic activity/Vol] 15 U/L Normal 13-56 [facility] Comment on above: Order Comment: 510-1 Performed By: #### L 500.2500, L100.0500 #### [facility] [address] [place], [address] AST [Catalytic activity/Vol] 13 U/L Low 15-37 [facility] Comment on above: Order Comment: 510-1 Performed By: #### L 500.2500, L100.0500 #### [facility] [address] [place], [address] Bilirubin [Mass/Vol] 0.30 mg/dL Normal 0.20-1.00 [facility] Comment on above: Order Comment: 510-1 Result Comment: For patients on eltrombopag therapy, use of Dimension [place] TBIL is not recommended. Performed By: #### L 500.2500, L100.0500 #### [facility] [address] [place], [address] BUN/CRE 22.8 RATIO High 10-20 [facility] Comment on above: Order Comment: 510-1 Performed By: #### L 500.2500, L100.0500 #### [facility] [address] [place], [address] CA,Total 9.2 mg/dL Normal 8.5-10.1 [facility] Comment on above: Order Comment: 510-1 Performed By: #### L 500.2500, L100.0500 #### [facility] [address] [place], [address] Chloride [Moles/Vol] 108 mmol/L High 98-107 [facility] Comment on above: Order Comment: 510-1 Performed By: #### L 500.2500, L100.0500 #### [facility] [address] [place], [address] CO2 [Moles/Vol] 26.0 mmol/L Normal 21.0-32.0 [facility] Comment on above: Order Comment: 510-1 Performed By: #### L 500.2500, L100.0500 #### [facility] [address] [place], [address] Creatinine [Mass/Vol] 0.97 mg/dL Normal 0.55-1.02 [facility] Comment on above: Order Comment: 510-1 Result Comment: The validity of the calculated GFR GFRAA in patients over 70 years has not been determined. Clinical correlation is essential. Performed By: #### L 500.2500, L100.0500 #### [facility] [address] [place], [address] EST GFR - AA 72 mL/min Normal >60 [facility] Comment on above: Order Comment: 510-1 Result Comment: Afri can [place] GFR Calc Performed By: #### L 500.2500, L100.0500 #### [facility] [address] [place], [address] GAP 8 Normal 5-15 [facility] Comment on above: Order Comment: 510-1 Performed By: #### L 500.2500, L100.0500 #### [facility] [address] [place], [address] GFR/1.73 sq M.predicted among non-blacks MDRD (S/P/Bld) [Vol rate/Area] 59 mL/min/{1.73_m2} Low >60 [facility] Comment on above: Order Comment: 510-1 Result Comment: Non- GFR Calc Performed By: #### L 500.2500, L100.0500 #### [facility] [address] [place], [address] Globulin (S) [Mass/Vol] 4.6 g/dL High 2.2-4.2 [facility] Comment on above: Order Comment: 510-1 Performed By: #### L 500.2500, L100.0500 #### [facility] [address] [place], [address] Glucose [Mass/Vol] 105 mg/dL Normal 74-106 [facility] Comment on above: Order Comment: 510- Result Comment: Fast ing Glucose result from 100 to 125 mg/dL suggests IMPAIRED HOMEOSTASIS per A.D.A. criteria. Performed By: #### L 500.2500, L100.0500 #### [facility] [address] [place], [address] Potassium [Moles/Vol] 4.2 mmol/L Normal 3.5-5.1 [facility] Comment on above: Order Comment: 510-1 Performed By: #### L 500.2500, L100.0500 #### [facility] [address] [place], [address] Sodium [Moles/Vol] 142 mmol/L Normal 136-145 [facility] Comment on above: Order Comment: 510-1 Performed By: #### L 500.2500, L100.0500 #### [facility] [address] [place], [address] T PROT 7.9 g/dL Normal 6.4-8.2 [facility] Comment on above: Order Comment: 510-1 Performed By: #### L 500.2500, L100.0500 #### [facility] [address] [place], [address] Urea nitrogen [Mass/Vol] 22 mg/dL High 7-18 [facility] Comment on above: Order Comment: 510-1 Performed By: #### L 500.2500, L100.0500 #### [facility] [address] [place], [address] Hemoglobin A1con 06-16-2024 HbA1c (Bld) [Mass fraction] 6.1 % High 3.8-5.6 [facility] Comment on above: Order Comment: 128 Result Comment: Norm al < 5.7 % Prediabetic 5.7 - 6.4 % Diabetic >or= 6.5 % Please note range changes. Performed By: #### L 500.2500, L100.0500 #### [facility] [address] [place], [address] Magnesiumon 06-16-2024 Magnesium [Mass/Vol] 2.5 mg/dL Normal 1.6-2.6 [facility] Comment on above: Order Comment: 510-1 Performed By: #### L 500.2500, L100.0500 #### [facility] [address] [place], [address] Thyroid Stim Hormone (TSH)on 06-16-2024 TSH 2.550 uIU/mL Normal 0.358-3.740 [facility] Comment on above: Order Comment: 128 Performed By: #### L 500.2500, L100.0500 #### [facility] [address] [place], [address] Vitamin B12on 06-16-2024 Cobalamin (Vitamin B12) [Mass/Vol] 546 pg/mL Normal 211-911 [facility] Comment on above: Order Comment: 510-1 Performed By: #### L 500.2500, L100.0500 #### [facility] [address] [place], [address] Vitamin D,25 Hydroxyon 06-16 Vitamin D 25-OH 43.9 ng/mL Normal [facility] Comment on above: Order Comment: 510-1 Result Comment: Paz min D 25(OH) Status Range Deficiency <20 ng/mL (50nmol/L) Insufficiency 20 - 30 ng/mL (50 - 75 nmol/L) Sufficiency 30 - 100 ng/mL (75 - 250 nmol/L) Toxicity >100 ng/mL (>250 nmol/L) Performed By: #### L 500.2500, L100.0500 #### [facility] [address] [place], [address] CBC-Complete Blood Cnt No Di ffon 05-21-2024 Erythrocyte distribution width (RBC) [Ratio] 16.2 % High 11.6-14.6 [facility] Comment on above: Order Comment: 510-1 Performed By: #### L 500.2500, L100.0500 #### [facility] [address] [place], [address] Hematocrit (Bld) [Volume fraction] 38.4 % Normal 37-47 [facility] Comment on above: Order Comment: 510-1 Performed By: #### L 500.2500, L100.0500 #### [facility] [address] [place], [address] Hemoglobin (Bld) [Mass/Vol] 11.7 g/dL Low 12.0-15.0 [facility] Comment on above: Order Comment: 510-1 Performed By: #### L 500.2500, L100.0500 #### [facility] [address] [place], [address] MCH (RBC) [Entitic mass] 28.3 pg Normal 27.0-32.0 [facility] Comment on above: Order Comment: 510-1 Performed By: #### L 500.2500, L100.0500 #### [facility] [address] [place], [address] MCHC (RBC) [Mass/Vol] 30.5 g/dL Low 32-36 [facility] Comment on above: Order Comment: 510-1 Performed By: #### L 500.2500, L100.0500 #### [facility] [address] [place], [address] MCV (RBC) [Entitic vol] 93.0 fL Normal 81-99 [facility] Comment on above: Order Comment: 510-1 Performed By: #### L 500.2500, L100.0500 #### [facility] [address] [place], [address] Platelet mean volume (Bld) [Entitic vol] 10.5 fL Normal 6.2-12.0 [facility] Comment on above: Order Comment: 510-1 Performed By: #### L 500.2500, L100.0500 #### [facility] [address] [place], [address] Platelets (Bld) [#/Vol] 267 10*3/uL Normal 150-450 [facility] Comment on above: Order Comment: 510-1 Performed By: #### L 500.2500, L100.0500 #### [facility] [address] [place], [address] RBC (Bld) [#/Vol] 4.13 10*6/uL Low 4.2-5.4 [facility] Comment on above: Order Comment: 510-1 Performed By: #### L 500.2500, L100.0500 #### [facility] [address] [place], [address] RDW SD 55.2 fl High 35.1-43.9 [facility] Comment on above: Order Comment: 510-1 Performed By: #### L 500.2500, L100.0500 #### [facility] [address] [place], [address] WBC (Bld) [#/Vol] 6.9 10*3/uL Normal 4.4-11.0 [facility] Comment on above: Order Comment: 510- Performed By: #### L 500.2500, L100.0500 #### [facility] [address] [place], [address] CRPon 05-21-2024 C-REACTIVE PROT 11.80 mg/L High 0.0-3.0 [facility] Comment on above: Order Comment: 510- Result Comment: C-Re active Protein (CRP) provides useful information for the diagnosis, therapy and monitoring of inflammatory processes and associated diseases. For the evaluation of Relative Risk for Cardiovascular Disease, a High Sensitivity CRP (HSCRP) should be ordered. Performed By: #### L 500.2500, L100.0500 #### [facility] [address] [place], [address] Uric Acidon 05-21-2024 URIC 4.1 mg/dL Normal 2.6-6.0 [facility] Comment on above: Order Comment: 510- Result Comment: The drugs N-Acetylcysteine and Metamizole may falsely depress this assay. Performed By: #### L 500.2500, L100.0500 #### [facility] [address] [place], [address] Basic Metabolic Profile (BMP )on 05-16-2024 BUN/CRE 28.8 RATIO High 06-15 [facility] Comment on above: Order Comment: 510- Performed By: #### L 500.2500, L100.0500 #### [facility] [address] [place], [address] CA,Total 9.4 mg/dL Normal 8.5-10.1 [facility] Comment on above: Order Comment: 510- Performed By: #### L 500.2500, L100.0500 #### [facility] [address] [place], [address] Chloride [Moles/Vol] 109 mmol/L High 98-107 [facility] Comment on above: Order Comment: 510-1 Performed By: #### L 500.2500, L100.0500 #### [facility] [address] [place], [address] CO2 [Moles/Vol] 23.0 mmol/L Normal 21.0-32.0 [facility] Comment on above: Order Comment: 510-1 Performed By: #### L 500.2500, L100.0500 #### [facility] [address] [place], [address] Creatinine [Mass/Vol] 0.90 mg/dL Normal 0.55-1.02 [facility] Comment on above: Order Comment: 510- Result Comment: The validity of the calculated GFR GFRAA in patients over 70 years has not been determined. Clinical correlation is essential. Performed By: #### L 500.2500, L100.0500 #### [facility] [address] [place], [address] EST GFR - AA 78 mL/min Normal >60 [facility] Comment on above: Order Comment: 510- Result Comment: Afri can [place] GFR Calc Performed By: #### L 500.2500, L100.0500 #### [facility] [address] [place], [address] GAP 7 Normal 5-15 [facility] Comment on above: Order Comment: 510-1 Performed By: #### L 500.2500, L100.0500 #### [facility] [address] [place], [address] GFR/1.73 sq M.predicted among non-blacks MDRD (S/P/Bld) [Vol rate/Area] 64 mL/min/{1.73_m2} Normal >60 [facility] Comment on above: Order Comment: 510-1 Result Comment: Non- GFR Calc Performed By: #### L 500.2500, L100.0500 #### [facility] [address] [place], [address] Glucose [Mass/Vol] 111 mg/dL High 74-106 [facility] Comment on above: Order Comment: 510-1 Result Comment: Fast ing Glucose result from 100 to 125 mg/dL suggests IMPAIRED HOMEOSTASIS per A.D.A. criteria. Performed By: #### L 500.2500, L100.0500 #### [facility] [address] [place], [address] Potassium [Moles/Vol] 3.9 mmol/L Normal 3.5-5.1 [facility] Comment on above: Order Comment: 510-1 Performed By: #### L 500.2500, L100.0500 #### [facility] [address] [place], [address] Sodium [Moles/Vol] 139 mmol/L Normal 136-145 [facility] Comment on above: Order Comment: 510-1 Performed By: #### L 500.2500, L100.0500 #### [facility] [address] [place], [address] Urea nitrogen [Mass/Vol] 26 mg/dL High 7-18 [facility] Comment on above: Order Comment: 510-1 Performed By: #### L 500.2500, L100.0500 #### [facility] [address] [place], [address] CBC-Complete Blood Cnt No Di ffon 05-16-2024 Erythrocyte distribution width (RBC) [Ratio] 16.4 % High 11.6-14.6 [facility] Comment on above: Order Comment: 510-1 Performed By: #### L 500.2500, L100.0500 #### [facility] [address] [place], [address] Hematocrit (Bld) [Volume fraction] 39.2 % Normal 37-47 [facility] Comment on above: Order Comment: 510-1 Performed By: #### L 500.2500, L100.0500 #### [facility] [address] [place], [address] Hemoglobin (Bld) [Mass/Vol] 12.3 g/dL Normal 12.0-15.0 [facility] Comment on above: Order Comment: 510-1 Performed By: #### L 500.2500, L100.0500 #### [facility] [address] [place], [address] MCH (RBC) [Entitic mass] 28.9 pg Normal 27.0-32.0 [facility] Comment on above: Order Comment: 510-1 Performed By: #### L 500.2500, L100.0500 #### [facility] [address] [place], [address] MCHC (RBC) [Mass/Vol] 31.4 g/dL Low 32-36 [facility] Comment on above: Order Comment: 510-1 Performed By: #### L 500.2500, L100.0500 #### [facility] [address] [place], [address] MCV (RBC) [Entitic vol] 92.2 fL Normal 81-99 [facility] Comment on above: Order Comment: 510-1 Performed By: #### L 500.2500, L100.0500 #### [facility] [address] [place], [address] Platelet mean volume (Bld) [Entitic vol] 10.7 fL Normal 6.2-12.0 [facility] Comment on above: Order Comment: 510-1 Performed By: #### L 500.2500, L100.0500 #### [facility] [address] [place], [address] Platelets (Bld) [#/Vol] 245 10*3/uL Normal 150-450 [facility] Comment on above: Order Comment: 510-1 Performed By: #### L 500.2500, L100.0500 #### [facility] [address] [place], [address] RBC (Bld) [#/Vol] 4.25 10*6/uL Normal 4.2-5.4 [facility] Comment on above: Order Comment: 510-1 Performed By: #### L 500.2500, L100.0500 #### [facility] [address] [place], [address] RDW SD 54.8 fl High 35.1-43.9 [facility] Comment on above: Order Comment: 510-1 Performed By: #### L 500.2500, L100.0500 #### [facility] [address] [place], [address] WBC (Bld) [#/Vol] 7.7 10*3/uL Normal 4.4-11.0 [facility] Comment on above: Order Comment: 510-1 Performed By: #### L 500.2500, L100.0500 #### [facility] [address] [place], [address] Basic Metabolic Profile (BMP )on 04-18-2024 BUN/CRE 24.8 RATIO High 10-20 [facility] Comment on above: Order Comment: 510.1 Performed By: #### L 100.0500, L500.2500 #### [facility] [address] [place], [address] CA,Total 9.0 mg/dL Normal 8.5-10.1 [facility] Comment on above: Order Comment: 510.1 Performed By: #### L 100.0500, L500.2500 #### [facility] [address] [place], [address] Chloride [Moles/Vol] 107 mmol/L Normal 98-107 [facility] Comment on above: Order Comment: 510.1 Performed By: #### L 100.0500, L500.2500 #### [facility] [address] [place], [address] CO2 [Moles/Vol] 26.0 mmol/L Normal 21.0-32.0 [facility] Comment on above: Order Comment: 510.1 Performed By: #### L 100.0500, L500.2500 #### [facility] [address] [place], [address] Creatinine [Mass/Vol] 0.89 mg/dL Normal 0.55-1.02 [facility] Comment on above: Order Comment: 510.1 Result Comment: The validity of the calculated GFR GFRAA in patients over 70 years has not been determined. Clinical correlation is essential. Performed By: #### L 100.0500, L500.2500 #### [facility] [address] [place], [address] EST GFR - AA 79 mL/min Normal >60 [facility] Comment on above: Order Comment: 510.1 Result Comment: Afri can [place] GFR Calc Performed By: #### L 100.0500, L500.2500 #### [facility] [address] [place], [address] GAP 7 Normal 5-15 [facility] Comment on above: Order Comment: 510.1 Performed By: #### L 100.0500, L500.2500 #### [facility] [address] [place], [address] GFR/1.73 sq M.predicted among non-blacks MDRD (S/P/Bld) [Vol rate/Area] 66 mL/min/{1.73_m2} Normal >60 [facility] Comment on above: Order Comment: 510.1 Result Comment: Non- GFR Calc Performed By: #### L 100.0500, L500.2500 #### [facility] [address] [place], [address] Glucose [Mass/Vol] 122 mg/dL High 74-106 [facility] Comment on above: Order Comment: 510.1 Result Comment: Fast ing Glucose result from 100 to 125 mg/dL suggests IMPAIRED HOMEOSTASIS per A.D.A. criteria. Performed By: #### L 100.0500, L500.2500 #### [facility] [address] [place], [address] Potassium [Moles/Vol] 3.7 mmol/L Normal 3.5-5.1 [facility] Comment on above: Order Comment: 510.1 Performed By: #### L 100.0500, L500.2500 #### [facility] [address] [place], [address] Sodium [Moles/Vol] 140 mmol/L Normal 136-145 [facility] Comment on above: Order Comment: 510.1 Performed By: #### L 100.0500, L500.2500 #### [facility] [address] [place], [address] Urea nitrogen [Mass/Vol] 22 mg/dL High 7-18 [facility] Comment on above: Order Comment: 510.1 Performed By: #### L 100.0500, L500.2500 #### [facility] [address] [place], [address] CBC-Complete Blood Cnt No Di ffon 04-18-2024 Erythrocyte distribution width (RBC) [Ratio] 15.6 % High 11.6-14.6 [facility] Comment on above: Order Comment: 510.1 Performed By: #### L 100.0500, L500.2500 #### [facility] [address] [place], [address] Hematocrit (Bld) [Volume fraction] 37.4 % Normal 37-47 [facility] Comment on above: Order Comment: 510.1 Performed By: #### L 100.0500, L500.2500 #### [facility] [address] [place], [address] Hemoglobin (Bld) [Mass/Vol] 11.8 g/dL Low 12.0-15.0 [facility] Comment on above: Order Comment: 510.1 Performed By: #### L 100.0500, L500.2500 #### [facility] [address] [place], [address] MCH (RBC) [Entitic mass] 28.7 pg Normal 27.0-32.0 [facility] Comment on above: Order Comment: 510.1 Performed By: #### L 100.0500, L500.2500 #### [facility] [address] [place], [address] MCHC (RBC) [Mass/Vol] 31.6 g/dL Low 32-36 [facility] Comment on above: Order Comment: 510.1 Performed By: #### L 100.0500, L500.2500 #### [facility] [address] [place], [address] MCV (RBC) [Entitic vol] 91.0 fL Normal 81-99 [facility] Comment on above: Order Comment: 510.1 Performed By: #### L 100.0500, L500.2500 #### [facility] [address] [place], [address] Platelet mean volume (Bld) [Entitic vol] 10.6 fL Normal 6.2-12.0 [facility] Comment on above: Order Comment: 510.1 Performed By: #### L 100.0500, L500.2500 #### [facility] [address] [place], [address] Platelets (Bld) [#/Vol] 266 10*3/uL Normal 150-450 [facility] Comment on above: Order Comment: 510.1 Performed By: #### L 100.0500, L500.2500 #### [facility] [address] [place], [address] RBC (Bld) [#/Vol] 4.11 10*6/uL Low 4.2-5.4 [facility] Comment on above: Order Comment: 510.1 Performed By: #### L 100.0500, L500.2500 #### [facility] [address] [place], [address] RDW SD 51.7 fl High 35.1-43.9 [facility] Comment on above: Order Comment: 510.1 Performed By: #### L 100.0500, L500.2500 #### [facility] [address] [place], [address] WBC (Bld) [#/Vol] 8.6 10*3/uL Normal 4.4-11.0 [facility] Comment on above: Order Comment: 510.1 Performed By: #### L 100.0500, L500.2500 #### [facility] [address] [place], [address] Basic Metabolic Profile (BMP )on 03-21-2024 BUN/CRE 23.6 RATIO High 10-20 [facility] Comment on above: Order Comment: 510-1 Performed By: #### L 500.2500, L100.0500 #### [facility] [address] [place], [address] CA,Total 9.1 mg/dL Normal 8.5-10.1 [facility] Comment on above: Order Comment: 510-1 Performed By: #### L 500.2500, L100.0500 #### [facility] [address] [place], [address] Chloride [Moles/Vol] 111 mmol/L High 98-107 [facility] Comment on above: Order Comment: 510-1 Performed By: #### L 500.2500, L100.0500 #### [facility] [address] [place], [address] CO2 [Moles/Vol] 24.0 mmol/L Normal 21.0-32.0 [facility] Comment on above: Order Comment: 510- Performed By: #### L 500.2500, L100.0500 #### [facility] [address] [place], [address] Creatinine [Mass/Vol] 0.89 mg/dL Normal 0.55-1.02 [facility] Comment on above: Order Comment: 510- Result Comment: The validity of the calculated GFR GFRAA in patients over 70 years has not been determined. Clinical correlation is essential. Performed By: #### L 500.2500, L100.0500 #### [facility] [address] [place], [address] EST GFR - AA 79 mL/min Normal >60 [facility] Comment on above: Order Comment: 510- Result Comment: Afri can [place] GFR Calc Performed By: #### L 500.2500, L100.0500 #### [facility] [address] [place], [address] GAP 4 Low 5-15 [facility] Comment on above: Order Comment: 510- Performed By: #### L 500.2500, L100.0500 #### [facility] [address] [place], [address] GFR/1.73 sq M.predicted among non-blacks MDRD (S/P/Bld) [Vol rate/Area] 65 mL/min/{1.73_m2} Normal >60 [facility] Comment on above: Order Comment: 510- Result Comment: Non- GFR Calc Performed By: #### L 500.2500, L100.0500 #### [facility] [address] [place], [address] Glucose [Mass/Vol] 118 mg/dL High 74-106 [facility] Comment on above: Order Comment: 510-1 Result Comment: Fast ing Glucose result from 100 to 125 mg/dL suggests IMPAIRED HOMEOSTASIS per A.D.A. criteria. Performed By: #### L 500.2500, L100.0500 #### [facility] [address] [place], [address] Potassium [Moles/Vol] 4.0 mmol/L Normal 3.5-5.1 [facility] Comment on above: Order Comment: 510-1 Performed By: #### L 500.2500, L100.0500 #### [facility] [address] [place], [address] Sodium [Moles/Vol] 139 mmol/L Normal 136-145 [facility] Comment on above: Order Comment: 510-1 Performed By: #### L 500.2500, L100.0500 #### [facility] [address] [place], [address] Urea nitrogen [Mass/Vol] 21 mg/dL High 7-18 [facility] Comment on above: Order Comment: 510-1 Performed By: #### L 500.2500, L100.0500 #### [facility] [address] [place], [address] CBC-Complete Blood Cnt No Di ffon 03-21-2024 Erythrocyte distribution width (RBC) [Ratio] 16.2 % High 11.6-14.6 [facility] Comment on above: Order Comment: 510-1 Performed By: #### L 500.2500, L100.0500 #### [facility] [address] [place], [address] Hematocrit (Bld) [Volume fraction] 37.8 % Normal 37-47 [facility] Comment on above: Order Comment: 510-1 Performed By: #### L 500.2500, L100.0500 #### [facility] [address] [place], [address] Hemoglobin (Bld) [Mass/Vol] 12.2 g/dL Normal 12.0-15.0 [facility] Comment on above: Order Comment: 510-1 Performed By: #### L 500.2500, L100.0500 #### [facility] [address] [place], [address] MCH (RBC) [Entitic mass] 29.0 pg Normal 27.0-32.0 [facility] Comment on above: Order Comment: 510-1 Performed By: #### L 500.2500, L100.0500 #### [facility] [address] [place], [address] MCHC (RBC) [Mass/Vol] 32.3 g/dL Normal 32-36 [facility] Comment on above: Order Comment: 510-1 Performed By: #### L 500.2500, L100.0500 #### [facility] [address] [place], [address] MCV (RBC) [Entitic vol] 90.0 fL Normal 81-99 [facility] Comment on above: Order Comment: 510-1 Performed By: #### L 500.2500, L100.0500 #### [facility] [address] [place], [address] Platelet mean volume (Bld) [Entitic vol] 10.4 fL Normal 6.2-12.0 [facility] Comment on above: Order Comment: 510-1 Performed By: #### L 500.2500, L100.0500 #### [facility] [address] [place], [address] Platelets (Bld) [#/Vol] 297 10*3/uL Normal 150-450 [facility] Comment on above: Order Comment: 510-1 Performed By: #### L 500.2500, L100.0500 #### [facility] [address] [place], [address] RBC (Bld) [#/Vol] 4.20 10*6/uL Normal 4.2-5.4 [facility] Comment on above: Order Comment: 510-1 Performed By: #### L 500.2500, L100.0500 #### [facility] [address] [place], [address] RDW SD 52.7 fl High 35.1-43.9 [facility] Comment on above: Order Comment: 510-1 Performed By: #### L 500.2500, L100.0500 #### [facility] [address] [place], [address] WBC (Bld) [#/Vol] 6.7 10*3/uL Normal 4.4-11.0 [facility] Comment on above: Order Comment: 510-1 Performed By: #### L 500.2500, L100.0500 #### [facility] [address] [place], [address] EMG(NEURO/NI)on 03-07-2024 Results can be seen in attached scanned documents. If you are a patient reviewing this test result, call the doctor who ordered the test with any questions. [facility] Basic Metabolic Profile (BMP )on 02-22-2024 BUN/CRE 22.0 RATIO High 10-20 [facility] Comment on above: Order Comment: 514-1 Performed By: #### L 500.2500, L100.0500 #### [facility] [address] [place], [address] CA,Total 9.1 mg/dL Normal 8.5-10.1 [facility] Comment on above: Order Comment: 514-1 Performed By: #### L 500.2500, L100.0500 #### [facility] [address] [place], [address] Chloride [Moles/Vol] 111 mmol/L High 98-107 [facility] Comment on above: Order Comment: 514-1 Performed By: #### L 500.2500, L100.0500 #### [facility] [address] [place], [address] CO2 [Moles/Vol] 26.0 mmol/L Normal 21.0-32.0 [facility] Comment on above: Order Comment: 514-1 Performed By: #### L 500.2500, L100.0500 #### [facility] [address] [place], [address] Creatinine [Mass/Vol] 0.86 mg/dL Normal 0.55-1.02 [facility] Comment on above: Order Comment: 514- Result Comment: The validity of the calculated GFR GFRAA in patients over 70 years has not been determined. Clinical correlation is essential. Performed By: #### L 500.2500, L100.0500 #### [facility] [address] [place], [address] EST GFR - AA 82 mL/min Normal >60 [facility] Comment on above: Order Comment: 514- Result Comment: Afri can [place] GFR Calc Performed By: #### L 500.2500, L100.0500 #### [facility] [address] [place], [address] GAP 4 Low 5-15 [facility] Comment on above: Order Comment: 514- Performed By: #### L 500.2500, L100.0500 #### [facility] [address] [place], [address] GFR/1.73 sq M.predicted among non-blacks MDRD (S/P/Bld) [Vol rate/Area] 68 mL/min/{1.73_m2} Normal >60 [facility] Comment on above: Order Comment: 514- Result Comment: Non- GFR Calc Performed By: #### L 500.2500, L100.0500 #### [facility] [address] [place], [address] Glucose [Mass/Vol] 117 mg/dL High 74-106 [facility] Comment on above: Order Comment: 514-1 Result Comment: Fast ing Glucose result from 100 to 125 mg/dL suggests IMPAIRED HOMEOSTASIS per A.D.A. criteria. Performed By: #### L 500.2500, L100.0500 #### [facility] [address] [place], [address] Potassium [Moles/Vol] 4.0 mmol/L Normal 3.5-5.1 [facility] Comment on above: Order Comment: 514-1 Performed By: #### L 500.2500, L100.0500 #### [facility] [address] [place], [address] Sodium [Moles/Vol] 141 mmol/L Normal 136-145 [facility] Comment on above: Order Comment: 514-1 Performed By: #### L 500.2500, L100.0500 #### [facility] [address] [place], [address] Urea nitrogen [Mass/Vol] 19 mg/dL High 7-18 [facility] Comment on above: Order Comment: 514-1 Performed By: #### L 500.2500, L100.0500 #### [facility] [address] [place], [address] CBC-Complete Blood Cnt No Di ffon 02-22-2024 Erythrocyte distribution width (RBC) [Ratio] 16.4 % High 11.6-14.6 [facility] Comment on above: Performed By: #### L 500.2500, L100.0500 #### [facility] [address] [place], [address] Hematocrit (Bld) [Volume fraction] 37.8 % Normal 37-47 [facility] Comment on above: Performed By: #### L 500.2500, L100.0500 #### [facility] [address] [place], [address] Hemoglobin (Bld) [Mass/Vol] 11.8 g/dL Low 12.0-15.0 [facility] Comment on above: Performed By: #### L 500.2500, L100.0500 #### [facility] [address] [place], [address] MCH (RBC) [Entitic mass] 29.0 pg Normal 27.0-32.0 [facility] Comment on above: Performed By: #### L 500.2500, L100.0500 #### [facility] [address] [place], [address] MCHC (RBC) [Mass/Vol] 31.2 g/dL Low 32-36 [facility] Comment on above: Performed By: #### L 500.2500, L100.0500 #### [facility] [address] [place], [address] MCV (RBC) [Entitic vol] 92.9 fL Normal 81-99 [facility] Comment on above: Performed By: #### L 500.2500, L100.0500 #### [facility] [address] [place], [address] Platelet mean volume (Bld) [Entitic vol] 10.5 fL Normal 6.2-12.0 [facility] Comment on above: Performed By: #### L 500.2500, L100.0500 #### [facility] [address] [place], [address] Platelets (Bld) [#/Vol] 274 10*3/uL Normal 150-450 [facility] Comment on above: Performed By: #### L 500.2500, L100.0500 #### [facility] [address] [place], [address] RBC (Bld) [#/Vol] 4.07 10*6/uL Low 4.2-5.4 [facility] Comment on above: Performed By: #### L 500.2500, L100.0500 #### [facility] [address] [place], [address] RDW SD 55.4 fl High 35.1-43.9 [facility] Comment on above: Performed By: #### L 500.2500, L100.0500 #### [facility] [address] [place], [address] WBC (Bld) [#/Vol] 6.4 10*3/uL Normal 4.4-11.0 [facility] Comment on above: Performed By: #### L 500.2500, L100.0500 #### [facility] [address] [place], [address] CNPNon 12-03-2023 [facility] Telephone (NEADMN) ---- KAMILAH MCKEON ([id number]) 1945 F Date Time Provider Department 12/03/23 KATINA BRUNO During your visit today, we recorded the following information about you: Laz Martínez 12/03/2023 1:24 PM Signed Spoke to Sandra at [facility] 12/03/23. Xarelto to be held for 24 hours prior to EMG testing with approval from prescribing physician. Laz Perez (Tech) Allergies As of Date: 12/03/2023 Noted Allergy Reaction LATEX 07/23/2023 7 - Swelling Date Reviewed: 11/29/2023 Reviewed by: Enedina Canchola PA-C - Fully Assessed Reason for Visit: Blood Thinner Instructions for EMG Testing [Other] Prescriptions as of 12/03/2023 - acetaminophen (TYLENOL) 325 mg tablet Take 650 mg by mouth once daily. - alendronate (FOSAMAX) 70 mg tablet Take 70 mg by mouth one time a week. - allopurinol (ZYLOPRIM) 100 mg tablet Take 100 mg by mouth once daily. - Biotin 1 mg tab Take 1,000 mcg by mouth once daily. - buPROPion SR (WELLBUTRIN SR) 200 mg 12 hr tablet Take 200 mg by mouth once daily. - cinacalcet (SENSIPAR) 30 mg tablet Take 30 mg by mouth once daily. - clonazePAM (KLONOPIN) 0.5 mg tablet Take 0.5 mg by mouth once daily. - losartan (COZAAR) 100 mg tablet Take 30 mg by mouth once daily. - potassium chloride ER (KLOR-CON M10) 10 mEq tablet Take 1 tablet by mouth once daily. - pravastatin (PRAVACHOL) 20 mg tablet Take 20 mg by mouth once daily. - omeprazole (PRILOSEC) 20 mg capsule Take 1 tablet by mouth once daily. - sertraline (ZOLOFT) 100 mg tablet Take 100 mg by mouth once daily. - XARELTO 20 mg tablet Take 20 mg by mouth once daily. - torsemide (DEMADEX) 10 mg tablet Take 10 mg by mouth once daily. - traMADol (ULTRAM) 50 mg tablet Take 50 mg by mouth every 6 hours as needed for pain. - Cetirizine (ZYRTEC) 10 mg cap Take 10 mg by mouth once daily as needed. Problem List As Of Date: 12/03/2023 (None) Encounter Status:Closed by LAZ MARTÍNEZ on 12/03/23 [facility] CNSyeda 11-29-2023 CNOV Office Visit (ORMDNA) ---- KAMILAH MCKEON ([id number]) 1945 F Date Time Provider Department 11/29/23 10:30 AM ENEDINA CANCHOLA During your visit today, we recorded the following information about you: Enedina Canchola PA-C 11/29/2023 11:31 AM Signed Enedina Canchola PA-C Established Patient Department of Orthopaedics [facility] [address] [address] Dept: [phone] November 29, 2023 SUBJECTIVE: CHIEF COMPLAINT: Follow Up, Pain, and Numbness of the Right Hand HPI: Ms. Kamilah Mckeon is a 78 year old RHD female. She was last seen in the office on 07/23/2023 where a right wrist carpal tunnel injection was administered. She presents today for follow up. She states that her right 2nd and 3rd digits are completely numb. She got only minimal relief from the injection administered at her last appointment. She has continued to wear her braces at night with some relief. She denies any recent injury. Past Medical History: History reviewed. No pertinent [...] mouth once daily as needed. No current facility-administer ed medications for this visit. Allergies: Latex ROS: General: negative for fatigue, malaise, weight loss/gain Musculoskeletal: see HPI Psych: no depression, anxiety OBJECTIVE: Ms. Kamilah Mckeon is a pleasant 78 year old in no apparent distress. Gen:There were no vitals taken for this visit. nl development, obese, no deformities ENT: Normocephalic, normal hearing, moist mucosa CV: Pulses:Radial= 2+ and symmetric, capillary refill < 2 secs, no peripheral edema/varicosities Skin: no rash, bruising or lesions. Good turgor. Psych: cooperative and appropriate, alert and oriented x 3, good mood and affect. Musculoskeletal: Hand and wrist non-tender to palpation. There is evidence of thenar wasting. Decreased sensation on palmar aspect of first and second digit. Phalen's: postive Tinel's: negative Final Operations Technician strength: 5/5 IMAGING: Not indicated ASSESSMENT: G56.01 Carpal tunnel syndrome of right wrist (primary encounter diagnosis) R20.9 Disturbance of skin sensation PLAN: Given her history of spinal trauma recommendation is EMG for persistent skin disturbation. Patient agreeable with plan. Advised I will call her to go over results and arrange appropriate follow up. FOLLOW UP INSTRUCTIONS: As appropriate after EMG Enedina Canchola PA-C Referring Provider: ENEDINA CANCHOLA [[id number]] Allergies As of Date: 11/29/2023 Noted Allergy Reaction LATEX 07/23/2023 7 - Swelling Date Reviewed: 11/29/2023 Reviewed by: Enedina Canchola PA-C - Fully Assessed Reason for Visit: Follow Up [171] Pain [78] Numbness [75] Primary Visit Diagnosis:Carpal tunnel syndrome of right wrist [G56.01] Other Visit Diagnosis:[place] ce of skin sensation [R20.9] Order(s):EMG(NEURO/ NI) [20101125] Order #: [id number]: 1 FUTURE Prescriptions as of 11/29/2023 - acetaminophen (TYLENOL) 325 mg tablet Take 650 mg by mouth once daily. - alendronate (FOSAMAX) 70 mg tablet Take 70 mg by mouth one time a week. - allopurinol (ZYLOPRIM) 100 mg tablet Take 100 mg by mouth once daily. - Biotin 1 mg tab Take 1,000 mcg by mouth once daily. - buPROPion SR (WELLBUTRIN SR) 200 mg 12 hr tablet Take 200 mg by mouth once daily. - cinacalcet (SENSIPAR) 30 mg tablet Take 30 mg by mouth once daily. - clonazePAM (KLONOPIN) 0.5 mg tablet Take 0.5 mg by mouth once daily. - los (more content not included)... Normal [facility] Basophil percentageOrdered B y: Gerda Wilks on 11-02-2023 Chloride [Moles/Vol] 108 mmol/L 98-107 [facility] Glucose [Mass/Vol] 92 mg/dL 74-106 [facility] Hemoglobin (Bld) [Mass/Vol] 11.2 g/dL 12.0-15.0 [facility] Potassium [Moles/Vol] 3.6 mmol/L 3.5-5.1 [facility] Sodium [Moles/Vol] 139 mmol/L 136-145 [facility] WBC (Bld) [#/Vol] 8.7 10*3/uL 4.4-11.0 [facility] Determination of erythrocyte mean corpuscular volume (MCV)Ordered By: Gerda Wilks on 11-02-2023 MCV (RBC) [Entitic vol] 94.1 fL 81-99 [facility] Erythrocyte distribution wid th ratioOrdered By: Gerda Wilks on 11-02-2023 Erythrocyte distribution width (RBC) [Ratio] 14.9 % 11.6-14.6 [facility] Erythrocyte distribution wid th standard deviationOrdered By: Gerda Wilks on 11-02-2023 Erythrocyte distribution width (RBC) [Entitic vol] 51.5 fL 35.1-43.9 [facility] Hematocrit Auto (Bld) [Volum e fraction]Ordered By: Gerda Wilks on 11-02-2023 Hematocrit (Bld) [Volume fraction] 36.5 % 37-47 [facility] - Chemistry and C hemistry - challengeOrdered By: Gerda Wilks on 11-02-2023 CO2 [Moles/Vol] 24.0 mmol/L 21.0-32.0 [facility] Urea nitrogen/Creatinine [Mass ratio] 32.5 mg/mg 10-20 [facility] - Hematology and Cell countsOrdered By: Gerda Wilks on 11-02-2023 MCH (RBC) [Entitic mass] 28.9 pg 27.0-32.0 [facility] MCHC (RBC) [Mass/Vol] 30.7 g/dL 32-36 [facility] Platelet mean volume (Bld) [Entitic vol] 10.6 fL 6.2-12.0 [facility] Platelets (Bld) [#/Vol] 277 10*3/uL 150-450 [facility] No Panel InformationOrdered By: Gerda Wilks on 11-02-2023 Estimated GFR (MDRD) Amer 70 mL/min >60 [facility] Comment on above: GFR Calc Estimated GFR (MDRD) Non-Af Amer 58 mL/min >60 [facility] Comment on above: Non- GFR Calc RBC Auto (Bld) [#/Vol]Ordere d By: Gerda Wilks on 11-02-2023 RBC (Bld) [#/Vol] 3.88 10*6/uL 4.2-5.4 [facility] Serum or plasma calcium chay urement (mass/volume)Ordered By: Gerda Wilks on 11-02-2023 Calcium [Mass/Vol] 8.2 mg/dL 8.5-10.1 [facility] Serum or plasma creatinine m easurement (mass/volume)Ordered By: Gerda Wilks on 11-02-2023 Creatinine [Mass/Vol] 0.98 mg/dL 0.55-1.02 [facility] Comment on above: The validity of the calculated GFR & GFRAA in patients over 70 years has not been determined. Clinical correlation is essential. Serum or plasma urea nitroge n measurement (mass/volume)Ordered By: Gerda Wilks on 11-02-2023 Urea nitrogen [Mass/Vol] 32 mg/dL 7-18 [facility] Thin prep Papanicolaou smear with manual screeningOrdered By: Gerda Wilks on 11-02-2023 Thin prep Papanicolaou smear with manual screening 7 5-15 [facility] Basophil percentageOrdered B y: Kurt Mari on 11-01-2023 Bilirubin [Mass/Vol] 0.30 mg/dL 0.20-1.00 [facility] Comment on above: For patients on eltr ombopag therapy, use of Dimension [place] TBIL is not recommended. Chloride [Moles/Vol] 108 mmol/L 98-107 [facility] Glucose [Mass/Vol] 98 mg/dL 74-106 [facility] Hemoglobin (Bld) [Mass/Vol] 11.1 g/dL 12.0-15.0 [facility] Potassium [Moles/Vol] 3.6 mmol/L 3.5-5.1 [facility] Protein [Mass/Vol] 7.1 g/dL 6.4-8.2 [facility] Sodium [Moles/Vol] 140 mmol/L 136-145 [facility] WBC (Bld) [#/Vol] 7.1 10*3/uL 4.4-11.0 [facility] Determination of erythrocyte mean corpuscular volume (MCV)Ordered By: Kurt Mari on 11-01-2023 MCV (RBC) [Entitic vol] 91.4 fL 81-99 [facility] Erythrocyte distribution wid th ratioOrdered By: Kurt Mari on 11-01-2023 Erythrocyte distribution width (RBC) [Ratio] 14.7 % 11.6-14.6 [facility] Erythrocyte distribution wid th standard deviationOrdered By: Kurt Mari on 11-01-2023 Erythrocyte distribution width (RBC) [Entitic vol] 49.1 fL 35.1-43.9 [facility] Hematocrit Auto (Bld) [Volum e fraction]Ordered By: Kurt Mari on 11-01-2023 Hematocrit (Bld) [Volume fraction] 34.9 % 37-47 [facility] - Chemistry and C hemistry - challengeOrdered By: Kurt Mari on 11-01-2023 Albumin/Globulin [Mass ratio] 0.6 {ratio} 0.9-2.4 [facility] ALP [Catalytic activity/Vol] 49 U/L 45-117 [facility] ALT [Catalytic activity/Vol] 15 U/L 13-56 [facility] CO2 [Moles/Vol] 23.0 mmol/L 21.0-32.0 [facility] Globulin (S) [Mass/Vol] 4.4 g/dL 2.2-4.2 [facility] Urea nitrogen/Creatinine [Mass ratio] 36.6 mg/mg 10-20 [facility] - Hematology and Cell countsOrdered By: Kurt Mari on 11-01-2023 MCH (RBC) [Entitic mass] 29.1 pg 27.0-32.0 [facility] MCHC (RBC) [Mass/Vol] 31.8 g/dL 32-36 [facility] Platelet mean volume (Bld) [Entitic vol] 10.7 fL 6.2-12.0 [facility] Platelets (Bld) [#/Vol] 233 10*3/uL 150-450 [facility] No Panel InformationOrdered By: Kurt Mari on 11-01-2023 Estimated GFR (MDRD) Amer 84 mL/min >60 [facility] Comment on above: GFR Calc Estimated GFR (MDRD) Non-Af Amer 69 mL/min >60 [facility] Comment on above: Non- GFR Calc RBC Auto (Bld) [#/Vol]Ordere d By: Kurt Mari on 11-01-2023 RBC (Bld) [#/Vol] 3.82 10*6/uL 4.2-5.4 [facility] Serum or plasma calcium chay urement (mass/volume)Ordered By: Kurt Mari on 11-01-2023 Calcium [Mass/Vol] 8.6 mg/dL 8.5-10.1 [facility] Serum or plasma creatinine m easurement (mass/volume)Ordered By: Kurt Mari on 11-01-2023 Creatinine [Mass/Vol] 0.85 mg/dL 0.55-1.02 [facility] Comment on above: The validity of the calculated GFR & GFRAA in patients over 70 years has not been determined. Clinical correlation is essential. Serum or plasma urea nitroge n measurement (mass/volume)Ordered By: Kurt Mari on 11-01-2023 Urea nitrogen [Mass/Vol] 31 mg/dL 7-18 [facility] Thin prep Papanicolaou smear with manual screeningOrdered By: Kurt Mari on 11-01-2023 Thin prep Papanicolaou smear with manual screening 2.7 g/dL 3.2-5.0 [facility] Thin prep Papanicolaou smear with manual screening 14 U/L 15-37 [facility] Thin prep Papanicolaou smear with manual screening 9 5-15 [facility] Basophil percentageOrdered B y: Gerda Wilks on 10-15-2023 Chloride [Moles/Vol] 111 mmol/L 98-107 [facility] Glucose [Mass/Vol] 123 mg/dL 74-106 [facility] Comment on above: Fasting Glucose resu lt from 100 to 125 mg/dL suggests IMPAIRED HOMEOSTASIS per A.D.A. criteria. Potassium [Moles/Vol] 4.0 mmol/L 3.5-5.1 [facility] Sodium [Moles/Vol] 141 mmol/L 136-145 [facility] Laboratory - Chemistry and C hemistry - challengeOrdered By: Gerad Wilks on 10-15-2023 CO2 [Moles/Vol] 26.0 mmol/L 21.0-32.0 [facility] Magnesium [Mass/Vol] 2.3 mg/dL 1.6-2.6 [facility] Urea nitrogen/Creatinine [Mass ratio] 36.5 mg/mg 10-20 [facility] No Panel InformationOrdered By: Gerda Wilks on 10-15-2023 Estimated GFR (MDRD) Amer 81 mL/min >60 [facility] Comment on above: GFR Calc Estimated GFR (MDRD) Non-Af Amer 67 mL/min >60 [facility] Comment on above: Non- GFR Calc Serum or plasma calcium chay urement (mass/volume)Ordered By: Gerda Wilks on 10-15-2023 Calcium [Mass/Vol] 9.5 mg/dL 8.5-10.1 [facility] Serum or plasma creatinine m easurement (mass/volume)Ordered By: Gerda Wilks on 10-15-2023 Creatinine [Mass/Vol] 0.88 mg/dL 0.55-1.02 [facility] Comment on above: The validity of the calculated GFR & GFRAA in patients over 70 years has not been determined. Clinical correlation is essential. Serum or plasma urea nitroge n measurement (mass/volume)Ordered By: Gerda Wilks on 10-15-2023 Urea nitrogen [Mass/Vol] 32 mg/dL 7-18 [facility] Thin prep Papanicolaou smear with manual screeningOrdered By: Gerda Wilks on 10-15-2023 Thin prep Papanicolaou smear with manual screening 4 5-15 [facility] Basophil percentageOrdered B y: Gerda Wilks on 10-05-2023 Chloride [Moles/Vol] 111 mmol/L 98-107 [facility] Glucose [Mass/Vol] 119 mg/dL 74-106 [facility] Comment on above: Fasting Glucose resu lt from 100 to 125 mg/dL suggests IMPAIRED HOMEOSTASIS per A.D.A. criteria. Hemoglobin (Bld) [Mass/Vol] 11.6 g/dL 12.0-15.0 [facility] Potassium [Moles/Vol] 4.2 mmol/L 3.5-5.1 [facility] Sodium [Moles/Vol] 143 mmol/L 136-145 [facility] WBC (Bld) [#/Vol] 8.0 10*3/uL 4.4-11.0 [facility] Determination of erythrocyte mean corpuscular volume (MCV)Ordered By: Gerda Wilks on 10-05-2023 MCV (RBC) [Entitic vol] 92.2 fL 81-99 [facility] Erythrocyte distribution wid th ratioOrdered By: Gerda Wilks on 10-05-2023 Erythrocyte distribution width (RBC) [Ratio] 15.1 % 11.6-14.6 [facility] Erythrocyte distribution wid th standard deviationOrdered By: Gerda Wilks on 10-05-2023 Erythrocyte distribution width (RBC) [Entitic vol] 51.2 fL 35.1-43.9 [facility] Hematocrit Auto (Bld) [Volum e fraction]Ordered By: Gerda Wilks on 10-05-2023 Hematocrit (Bld) [Volume fraction] 37.6 % 37-47 [facility] - Chemistry and C hemistry - challengeOrdered By: Gerda Wilks on 10-05-2023 CO2 [Moles/Vol] 28.0 mmol/L 21.0-32.0 [facility] Urea nitrogen/Creatinine [Mass ratio] 37.4 mg/mg 10-20 [facility] - Hematology and Cell countsOrdered By: Gerda Wilks on 10-05-2023 MCH (RBC) [Entitic mass] 28.4 pg 27.0-32.0 [facility] MCHC (RBC) [Mass/Vol] 30.9 g/dL 32-36 [facility] Platelet mean volume (Bld) [Entitic vol] 10.5 fL 6.2-12.0 [facility] Platelets (Bld) [#/Vol] 247 10*3/uL 150-450 [facility] No Panel InformationOrdered By: Gerda Wilks on 10-05-2023 Estimated GFR (MDRD) Amer 97 mL/min >60 [facility] Comment on above: GFR Calc Estimated GFR (MDRD) Non-Af Amer 80 mL/min >60 [facility] Comment on above: Non- GFR Calc RBC Auto (Bld) [#/Vol]Ordere d By: Gerda Wilks on 10-05-2023 RBC (Bld) [#/Vol] 4.08 10*6/uL 4.2-5.4 [facility] Serum or plasma calcium chay urement (mass/volume)Ordered By: Gerda Wilks on 10-05-2023 Calcium [Mass/Vol] 9.1 mg/dL 8.5-10.1 [facility] Serum or plasma creatinine m easurement (mass/volume)Ordered By: Gerda Wilks on 10-05-2023 Creatinine [Mass/Vol] 0.75 mg/dL 0.55-1.02 [facility] Comment on above: The validity of the calculated GFR & GFRAA in patients over 70 years has not been determined. Clinical correlation is essential. Serum or plasma urea nitroge n measurement (mass/volume)Ordered By: Gerda Wilks on 10-05-2023 Urea nitrogen [Mass/Vol] 28 mg/dL 7-18 [facility] Thin prep Papanicolaou smear with manual screeningOrdered By: Gerda Wilks on 10-05-2023 Thin prep Papanicolaou smear with manual screening 4 5-15 [facility] Basophil percentageOrdered B y: Gerda Wilks on 09-07-2023 Chloride [Moles/Vol] 109 mmol/L 98-107 [facility] Glucose [Mass/Vol] 113 mg/dL 74-106 [facility] Comment on above: Fasting Glucose resu lt from 100 to 125 mg/dL suggests IMPAIRED HOMEOSTASIS per A.D.A. criteria. Potassium [Moles/Vol] 4.2 mmol/L 3.5-5.1 [facility] Sodium [Moles/Vol] 142 mmol/L 136-145 [facility] WBC (Bld) [#/Vol] 7.9 10*3/uL 4.4-11.0 [facility] Blood erythrocytes count (nu mber/volume)Ordered By: Gerda Wilks on 09-07-2023 RBC (Bld) [#/Vol] 4.36 10*6/uL 4.2-5.4 [facility] Blood hemoglobin measurement (mass/volume)Ordered By: Gerda Wilks on 09-07-2023 Hemoglobin (Bld) [Mass/Vol] 12.7 g/dL 12.0-15.0 [facility] Blood platelet mean volumeOr dered By: Gerda Wilks on 09-07-2023 Platelet mean volume (Bld) [Entitic vol] 10.5 fL 6.2-12.0 [facility] Determination of erythrocyte mean corpuscular volume (MCV)Ordered By: Gerda Wilks on 09-07-2023 MCV (RBC) [Entitic vol] 92.2 fL 81-99 [facility] Hematocrit Auto (Bld) [Volum e fraction]Ordered By: Gerda Wilks on 09-07-2023 Hematocrit (Bld) [Volume fraction] 40.2 % 37-47 [facility] Laboratory - Chemistry and C hemistry - challengeOrdered By: Gerda Wilks on 09-07-2023 CO2 [Moles/Vol] 27.0 mmol/L 21.0-32.0 [facility] Urea nitrogen/Creatinine [Mass ratio] 41.4 mg/mg 10-20 [facility] Laboratory - Hematology and Cell countsOrdered By: Gerda Wilks on 09-07-2023 Erythrocyte distribution width (RBC) [Entitic vol] 50.9 fL 35.1-43.9 [facility] Erythrocyte distribution width (RBC) [Ratio] 15.1 % 11.6-14.6 [facility] MCH (RBC) [Entitic mass] 29.1 pg 27.0-32.0 [facility] MCHC Auto (RBC) [Mass/Vol]Or dered By: Gerda Wilks on 09-07-2023 MCHC (RBC) [Mass/Vol] 31.6 g/dL 32-36 [facility] No Panel InformationOrdered By: Gerda Wilks on 09-07-2023 Estimated GFR (MDRD) Amer 81 mL/min >60 [facility] Comment on above: GFR Calc Estimated GFR (MDRD) Non-Af Amer 67 mL/min >60 [facility] Comment on above: Non- GFR Calc Platelets bldOrdered By: Gustavo Wilks on 09-07-2023 Platelets (Bld) [#/Vol] 266 10*3/uL 150-450 [facility] Serum or plasma calcium chay urement (mass/volume)Ordered By: Gerda Wilks on 09-07-2023 Calcium [Mass/Vol] 9.6 mg/dL 8.5-10.1 [facility] Serum or plasma creatinine m easurement (mass/volume)Ordered By: Gerda Wilks on 09-07-2023 Creatinine [Mass/Vol] 0.87 mg/dL 0.55-1.02 [facility] Comment on above: The validity of the calculated GFR & GFRAA in patients over 70 years has not been determined. Clinical correlation is essential. Serum or plasma urea nitroge n measurement (mass/volume)Ordered By: Gerda Wilks on 09-07-2023 Urea nitrogen [Mass/Vol] 36 mg/dL 7-18 [facility] Thin prep Papanicolaou smear with manual screeningOrdered By: Gerda Wilks on 09-07-2023 Thin prep Papanicolaou smear with manual screening 6 5-15 [facility] Absolute lymphocyte countOrd ered By: Jose Martin Drake on 09-06-2023 Lymphocytes Auto (Unsp spec) [#/Vol] 1.74 10*3/uL 0.83-4.51 [facility] Basophil percentageOrdered B y: Jose Martin Drake on 09-06-2023 Basophils/100 WBC (Bld) 1.0 % 0-1 [facility] Eosinophils/100 WBC (Bld) 3.9 % 0-5 [facility] Neutrophils (Bld) [#/Vol] 5.2 10*3/uL 2.0-7.7 [facility] Neutrophils/100 WBC (Bld) 65.5 % 47-70 [facility] WBC (Bld) [#/Vol] 8.0 10*3/uL 4.4-11.0 [facility] Blood erythrocytes count (nu mber/volume)Ordered By: Jose Martin Drake on 09-06-2023 RBC (Bld) [#/Vol] 4.53 10*6/uL 4.2-5.4 [facility] Blood hemoglobin measurement (mass/volume)Ordered By: Jose Martin Drake on 09-06-2023 Hemoglobin (Bld) [Mass/Vol] 13.2 g/dL 12.0-15.0 [facility] Blood lymphocytes/100 leukoc ytesOrdered By: Jose Martin Drake on 09-06-2023 Lymphocytes/100 WBC (Bld) 21.8 % 19-41 [facility] Blood monocytes/100 leukocyt esOrdered By: Jose Martin Drake on 09-06-2023 Monocytes/100 WBC (Bld) 6.9 % 0-10 [facility] Blood platelet mean volumeOr dered By: Jose Martin Drake on 09-06-2023 Platelet mean volume (Bld) [Entitic vol] 10.7 fL 6.2-12.0 [facility] Determination of erythrocyte mean corpuscular volume (MCV)Ordered By: Jose Martin Drake on 09-06-2023 MCV (RBC) [Entitic vol] 92.3 fL 81-99 [facility] Hematocrit Auto (Bld) [Volum e fraction]Ordered By: Jose Martin Drake on 09-06-2023 Hematocrit (Bld) [Volume fraction] 41.8 % 37-47 [facility] Laboratory - Chemistry and C hemistry - challengeOrdered By: Jose Martin Drake on 09-06-2023 Cobalamin (Vitamin B12) [Mass/Vol] 563 pg/mL 211-911 [facility] Laboratory - Hematology and Cell countsOrdered By: Jose Martin Drake on 09-06-2023 Erythrocyte distribution width (RBC) [Entitic vol] 51.3 fL 35.1-43.9 [facility] Erythrocyte distribution width (RBC) [Ratio] 15.1 % 11.6-14.6 [facility] Immature granulocytes/100 WBC (Bld) 0.900 % 0.0-0.9 [facility] Comment on above: IG% - Immature Granu locytes (promyelocytes, myelocytes and metamyelocytes) > 1% indicates that a LEFT SHIFT is Present. MCH (RBC) [Entitic mass] 29.1 pg 27.0-32.0 [facility] Nucleated RBC/100 WBC (Bld) [Ratio] 0 % 0-5 [facility] MCHC Auto (RBC) [Mass/Vol]Or dered By: Jose Martin Drake on 09-06-2023 MCHC (RBC) [Mass/Vol] 31.6 g/dL 32-36 [facility] No Panel InformationOrdered By: Jose Martin Drake on 09-06-2023 Vitamin D 25-Hydroxy 57.1 ng/mL [facility] Comment on above: Vitamin D 25(OH) Sta tus Range Deficiency <20 ng/mL (50nmol/L) Insufficiency 20 - 30 ng/mL (50 - 75 nmol/L) Sufficiency 30 - 100 ng/mL (75 - 250 nmol/L) Toxicity >100 ng/mL (>250 nmol/L) Platelets bldOrdered By: Dav Drake on 09-06-2023 Platelets (Bld) [#/Vol] 284 10*3/uL 150-450 [facility] Serum or plasma calcitriol m easurement (mass/volume)Ordered By: Jose Martin Drake on 09-06-2023 1,25-dihydroxyvitamin D3 [Mass/Vol] 22.3 pg/mL 24.8-81.5 [facility] Comment on above: Performed at: [facility] [address] [id number] Director: Estuardo Alegria MD, Phone: [phone] Serum or plasma ferritin riley surement (mass/volume)Ordered By: Jose Martin Drake on 09-06-2023 Ferritin [Mass/Vol] 30 ng/mL 8-252 [facility] Serum or plasma zinc measure ment (mass/volume)Ordered By: Jose Martin Drake on 09-06-2023 Zinc [Mass/Vol] 63 ug/dL 44-115 [facility] Comment on above: Detection Limit = 5P erformed at: [employer] [facility] [address] [id number] Director: Estuardo Alegria MD, Phone: [phone] Basophil percentageOrdered B y: Gerda Wilks on 08-08-2023 Chloride [Moles/Vol] 109 mmol/L 98-107 [facility] Glucose [Mass/Vol] 145 mg/dL 74-106 [facility] Comment on above: Fasting Glucose resu lt greater than or equal to 126 mg/dL suggests DIABETES MELLITUS per A.D.A. criteria. Potassium [Moles/Vol] 3.9 mmol/L 3.5-5.1 [facility] Sodium [Moles/Vol] 140 mmol/L 136-145 [facility] WBC (Bld) [#/Vol] 6.9 10*3/uL 4.4-11.0 [facility] Blood erythrocytes count (nu mber/volume)Ordered By: Gerda Wilks on 08-08-2023 RBC (Bld) [#/Vol] 4.46 10*6/uL 4.2-5.4 [facility] Blood hemoglobin measurement (mass/volume)Ordered By: Gerda Wilks on 08-08-2023 Hemoglobin (Bld) [Mass/Vol] 12.9 g/dL 12.0-15.0 [facility] Blood platelet mean volumeOr dered By: Gerda Wilks on 08-08-2023 Platelet mean volume (Bld) [Entitic vol] 10.7 fL 6.2-12.0 [facility] Determination of erythrocyte mean corpuscular volume (MCV)Ordered By: Gerda Wilks on 08-08-2023 MCV (RBC) [Entitic vol] 93.0 fL 81-99 [facility] Hematocrit Auto (Bld) [Volum e fraction]Ordered By: Gerda Wilks on 08-08-2023 Hematocrit (Bld) [Volume fraction] 41.5 % 37-47 [facility] Iron measurement (mass/mass) Ordered By: Gerda Wilks on 08-08-2023 Iron (Unsp spec) [Mass/Mass] 42 ug/dL 50-170 [facility] Laboratory - Chemistry and C hemistry - challengeOrdered By: Gerda Wilks on 08-08-2023 CO2 [Moles/Vol] 27.0 mmol/L 21.0-32.0 [facility] Urea nitrogen/Creatinine [Mass ratio] 32.4 mg/mg 10-20 [facility] Laboratory - Hematology and Cell countsOrdered By: Gerda Wilks on 08-08-2023 Erythrocyte distribution width (RBC) [Entitic vol] 52.4 fL 35.1-43.9 [facility] Erythrocyte distribution width (RBC) [Ratio] 15.3 % 11.6-14.6 [facility] MCH (RBC) [Entitic mass] 28.9 pg 27.0-32.0 [facility] MCHC Auto (RBC) [Mass/Vol]Or dered By: Gerda Wilks on 08-08-2023 MCHC (RBC) [Mass/Vol] 31.1 g/dL 32-36 [facility] No Panel InformationOrdered By: Gerda Wilks on 08-08-2023 Estimated GFR (MDRD) Amer 68 mL/min >60 [facility] Comment on above: GFR Calc Estimated GFR (MDRD) Non-Af Amer 56 mL/min >60 [facility] Comment on above: Non- GFR Calc Total Iron Binding Capacity 325 ug/dL 250-450 [facility] Platelets bldOrdered By: Gustavo Wilks on 08-08-2023 Platelets (Bld) [#/Vol] 247 10*3/uL 150-450 [facility] Serum or plasma calcium chay urement (mass/volume)Ordered By: Gerda Wilks on 08-08-2023 Calcium [Mass/Vol] 9.4 mg/dL 8.5-10.1 [facility] Serum or plasma creatinine m easurement (mass/volume)Ordered By: Gerda Wilks on 08-08-2023 Creatinine [Mass/Vol] 1.02 mg/dL 0.55-1.02 [facility] Comment on above: The validity of the calculated GFR & GFRAA in patients over 70 years has not been determined. Clinical correlation is essential. Serum or plasma iron saturat ion measurement (mass fraction)Ordered By: Gerda Wilks on 08-08-2023 Iron saturation [Mass fraction] 12.9 % 15.0-55.0 [facility] Serum or plasma urea nitroge n measurement (mass/volume)Ordered By: Gerda Wilks on 08-08-2023 Urea nitrogen [Mass/Vol] 33 mg/dL 7-18 [facility] Thin prep Papanicolaou smear with manual screeningOrdered By: Gerda Wilks on 08-08-2023 Thin prep Papanicolaou smear with manual screening 4 5-15 [facility] CNOVon 07-23-2023 CNOV Office Visit (ORMDNA) ---- KAMILAH MCKEON ([id number]) 1945 F Date Time Provider Department 07/23/23 2:00 PM ENEDINA CANCHOLA During your visit today, we recorded the following information about you: Enedina Canchola PA-C 07/24/2023 2:47 PM Signed Enedina Canchola PA-C Department of Orthopaedics [facility] [address] [address] Dept: [phone] July 23, 2023 SUBJECTIVE: CHIEF COMPLAINT: Pain and New of the Right Wrist HPI: Ms. Kamilah Mckeon is a 78 year old right hand [...] mouth once daily as needed. No current facility-administer ed medications for this visit. Allergies: Latex ROS: General: negative for fatigue, malaise, weight loss/gain Musculoskeletal: see HPI Psych: no depression, anxiety OBJECTIVE: Ms. Kamilah Mckeon is a pleasant 78 year old in [...] and 3rd digit Phalen's: postive Tinel's: negative Final Operations Technician strength: 5/5 IMAGIN07/23/2023 4:08 PM - Radiology, Oru In Impression IMPRESSION: Findings as discussed in results portion of report Hvac Journeyman: GERMAINE Transcribe Date/Time: Jul 23 2023 4:04P Dictated by : WALTER BRODY DO This examination was interpreted and the report reviewed and electronically signed by: WALTER BRODY DO on Jul 23 2023 4:06PM EST Results-Findings * * *Final Report* * * DATE OF EXAM: Jul 23 2023 1:23PM [facility]271 - XR WRIST 3V PA/LAT/OBL RT / PROCEDURE REASON: [id number] * * * * Physician Interpretation * [...] options for hand numbness including EMG and diagnostic/therapeu tic carpal tunnel injection. Patient would like to try injection. Right carpal tunnel injection agreed upon and administered today. Advised patient that if she gets no relief would recommend EMG. Patient agre (more content not included)... Normal [facility] XR WRIST 3V PA/LAT/OBL RTon 07-23-2023 XR WRIST 3V PA/LAT/OBL RT * * *Final Report* * * DATE OF EXAM: Jul 23 2023 1:23PM [facility]271 - XR WRIST 3V PA/LAT/OBL RT / PROCEDURE REASON: [id number] * * * * Physician Interpretation * [...] bones No fractures or dislocations are seen. IMPRESSION: Findings as discussed in results portion of report Hvac Journeyman: GERMAINE Transcribe Date/Time: Jul 23 2023 4:04P Dictated by : WALTER BRODY DO This examination was interpreted and the report reviewed and electronically signed by: WALTER BRODY DO on Jul 23 2023 4:06PM EST [id number] ACN [facility] XR Wrist - right PA and Late ral and Obliqueon 07-23-2023 IMPRESSION: Findings as discussed in results portion of report Hvac Journeyman: PSCB Transcribe Date/Time: Jul 23 2023 4:04P Dictated by : WALTER BRODY DO This examination was interpreted and the report reviewed and electronically signed by: WALTER BRODY DO on Jul 23 2023 4:06PM EST [facility] * * *Final Report* * * DATE OF EXAM: Jul 23 2023 1:23PM [facility]271 - XR WRIST 3V PA/LAT/OBL RT / PROCEDURE REASON: [id number] * * * * Physician Interpretation * [...] bones No fractures or dislocations are seen. [facility] Provider, [facility] - 07/23/2023 * * *Final Report* * * DATE OF EXAM: Jul 23 2023 1:23PM [facility]271 - XR WRIST 3V PA/LAT/OBL RT / PROCEDURE REASON: [id number] * * * * Physician Interpretation * [...] bones No fractures or dislocations are seen. IMPRESSION IMPRESSION: Findings as discussed in results portion of report Hvac Journeyman: GERMAINE Transcribe Date/Time: Jul 23 2023 4:04P Dictated by : WALTER BRODY DO This examination was interpreted and the report reviewed and electronically signed by: WALTER BRODY DO on Jul 23 2023 4:06PM [facility] Radiology Study observation (narrative) [place] [facility] XR Wrist - right PA and Late ral and ObliqueOrdered By: Ccf Provider on 07-23-2023 [facility] Basophil percentageOrdered B y: Rizwan Florentino on 07-12-2023 Chloride [Moles/Vol] 110 mmol/L 98-107 [facility] Glucose [Mass/Vol] 117 mg/dL 74-106 [facility] Comment on above: Fasting Glucose resu lt from 100 to 125 mg/dL suggests IMPAIRED HOMEOSTASIS per A.D.A. criteria. Potassium [Moles/Vol] 4.2 mmol/L 3.5-5.1 [facility] Sodium [Moles/Vol] 142 mmol/L 136-145 [facility] WBC (Bld) [#/Vol] 7.0 10*3/uL 4.4-11.0 [facility] Blood erythrocytes count (nu mber/volume)Ordered By: Rizwan Florentino on 07-12-2023 RBC (Bld) [#/Vol] 4.17 10*6/uL 4.2-5.4 [facility] Blood hemoglobin measurement (mass/volume)Ordered By: Rizwan Florentino on 07-12-2023 Hemoglobin (Bld) [Mass/Vol] 12.1 g/dL 12.0-15.0 [facility] Blood platelet mean volumeOr dered By: Rizwan Florentino on 07-12-2023 Platelet mean volume (Bld) [Entitic vol] 10.8 fL 6.2-12.0 [facility] Determination of erythrocyte mean corpuscular volume (MCV)Ordered By: Rizwan Florentino on 07-12-2023 MCV (RBC) [Entitic vol] 93.5 fL 81-99 [facility] Hematocrit Auto (Bld) [Volum e fraction]Ordered By: Rizwan Florentino on 07-12-2023 Hematocrit (Bld) [Volume fraction] 39.0 % 37-47 [facility] Laboratory - Chemistry and C hemistry - challengeOrdered By: Rizwan Florentino on 07-12-2023 CO2 [Moles/Vol] 28.0 mmol/L 21.0-32.0 [facility] Urea nitrogen/Creatinine [Mass ratio] 42.5 mg/mg 10-20 [facility] Laboratory - Hematology and Cell countsOrdered By: Rizwan Florentino on 07-12-2023 Erythrocyte distribution width (RBC) [Entitic vol] 53.0 fL 35.1-43.9 [facility] Erythrocyte distribution width (RBC) [Ratio] 15.5 % 11.6-14.6 [facility] MCH (RBC) [Entitic mass] 29.0 pg 27.0-32.0 [facility] MCHC Auto (RBC) [Mass/Vol]Or dered By: Rizwan Florentino on 07-12-2023 MCHC (RBC) [Mass/Vol] 31.0 g/dL 32-36 [facility] No Panel InformationOrdered By: Rizwan Florentino on 07-12-2023 Estimated GFR (MDRD) Amer 90 mL/min >60 [facility] Comment on above: GFR Calc Estimated GFR (MDRD) Non-Af Amer 74 mL/min >60 [facility] Comment on above: Non- GFR Calc Platelets bldOrdered By: Leatha Florentino on 07-12-2023 Platelets (Bld) [#/Vol] 255 10*3/uL 150-450 [facility] Serum or plasma calcium chay urement (mass/volume)Ordered By: Rizwan Florentino on 07-12-2023 Calcium [Mass/Vol] 9.0 mg/dL 8.5-10.1 [facility] Serum or plasma creatinine m easurement (mass/volume)Ordered By: Rizwan Florentino on 07-12-2023 Creatinine [Mass/Vol] 0.80 mg/dL 0.55-1.02 [facility] Comment on above: The validity of the calculated GFR & GFRAA in patients over 70 years has not been determined. Clinical correlation is essential. Serum or plasma urea nitroge n measurement (mass/volume)Ordered By: Rizwan Florentino on 07-12-2023 Urea nitrogen [Mass/Vol] 34 mg/dL 7-18 [facility] Thin prep Papanicolaou smear with manual screeningOrdered By: Rizwan Florentino on 07-12-2023 Thin prep Papanicolaou smear with manual screening 4 5-15 [facility] Basophil percentageOrdered B y: Gerda Wilks on 07-05-2023 Cholesterol [Mass/Vol] 155 mg/dL <200 [facility] Comment on above: <200 mg/dL Desirable 200-240 mg/dL Borderline >240 mg/dL High Risk Triglyceride [Mass/Vol] 79 mg/dL <199 [facility] Comment on above: The drugs N-Acetylcy steine and Metamizole may falsely depress this assay.Serum Triglycerides Reference Interval Normal <150 mg/dL Borderline high 150 - 199 mg/dL High 200 - 499 mg/dL Very High > or = 500 mg/dL Serum or plasma cholesterol in HDL measurement (mass/volume)Ordered By: Gerda Wilks on 07-05-2023 Cholesterol in HDL [Mass/Vol] 60 mg/dL >40 [facility] Comment on above: The drugs N-Acetylcy steine and Metamizole may falsely depress this assay. Reference Range HDL <40 mg/dL Low HDL Cholesterol HDL >or= 60 mg/dL High HDL Cholesterol Serum or plasma cholesterol in VLDL measurement (mass/volume)Ordered By: Gerda Wilks on 07-05-2023 Cholesterol in VLDL [Mass/Vol] 16 mg/dL 5-40 [facility] Serum or plasma low density lipoprotein (LDL) cholesterol measurement (mass/volume)Ordered By: Gerda Wilks on 07-05-2023 Cholesterol in LDL [Mass/Vol] 79 mg/dL 0-130 [facility] Basophil percentageOrdered B y: Gerda Wilks on 06-14-2023 Chloride [Moles/Vol] 112 mmol/L 98-107 [facility] Glucose [Mass/Vol] 112 mg/dL 74-106 [facility] Comment on above: Fasting Glucose resu lt from 100 to 125 mg/dL suggests IMPAIRED HOMEOSTASIS per A.D.A. criteria. Potassium [Moles/Vol] 4.3 mmol/L 3.5-5.1 [facility] Sodium [Moles/Vol] 143 mmol/L 136-145 [facility] WBC (Bld) [#/Vol] 7.0 10*3/uL 4.4-11.0 [facility] Blood erythrocytes count (nu mber/volume)Ordered By: Gerda Wilks on 06-14-2023 RBC (Bld) [#/Vol] 4.40 10*6/uL 4.2-5.4 [facility] Blood hemoglobin measurement (mass/volume)Ordered By: Gerda Wilks on 06-14-2023 Hemoglobin (Bld) [Mass/Vol] 12.6 g/dL 12.0-15.0 [facility] Blood platelet mean volumeOr dered By: Gerda Wilks on 06-14-2023 Platelet mean volume (Bld) [Entitic vol] 11.0 fL 6.2-12.0 [facility] Determination of erythrocyte mean corpuscular volume (MCV)Ordered By: Gerda Wilks on 06-14-2023 MCV (RBC) [Entitic vol] 93.6 fL 81-99 [facility] Hematocrit Auto (Bld) [Volum e fraction]Ordered By: Gerda Wilks on 06-14-2023 Hematocrit (Bld) [Volume fraction] 41.2 % 37-47 [facility] Laboratory - Chemistry and C hemistry - challengeOrdered By: Gerda Wilks on 06-14-2023 CO2 [Moles/Vol] 26.0 mmol/L 21.0-32.0 [facility] Urea nitrogen/Creatinine [Mass ratio] 36.6 mg/mg 10-20 [facility] Laboratory - Hematology and Cell countsOrdered By: Gerda Wilks on 06-14-2023 Erythrocyte distribution width (RBC) [Entitic vol] 53.9 fL 35.1-43.9 [facility] Erythrocyte distribution width (RBC) [Ratio] 15.6 % 11.6-14.6 [facility] MCH (RBC) [Entitic mass] 28.6 pg 27.0-32.0 [facility] MCHC Auto (RBC) [Mass/Vol]Or dered By: Gerda Wilks on 06-14-2023 MCHC (RBC) [Mass/Vol] 30.6 g/dL 32-36 [facility] No Panel InformationOrdered By: Gerda Wilks on 06-14-2023 Estimated GFR (MDRD) Amer 87 mL/min >60 [facility] Comment on above: GFR Calc Estimated GFR (MDRD) Non-Af Amer 72 mL/min >60 [facility] Comment on above: Non- GFR Calc Platelets bldOrdered By: Gustavo Wilks on 06-14-2023 Platelets (Bld) [#/Vol] 244 10*3/uL 150-450 [facility] Serum or plasma calcium chay urement (mass/volume)Ordered By: Gerda Wilks on 06-14-2023 Calcium [Mass/Vol] 9.2 mg/dL 8.5-10.1 [facility] Serum or plasma creatinine m easurement (mass/volume)Ordered By: Gerda Wilks on 06-14-2023 Creatinine [Mass/Vol] 0.82 mg/dL 0.55-1.02 [facility] Comment on above: The validity of the calculated GFR & GFRAA in patients over 70 years has not been determined. Clinical correlation is essential. Serum or plasma urea nitroge n measurement (mass/volume)Ordered By: Gerda Wilks on 06-14-2023 Urea nitrogen [Mass/Vol] 30 mg/dL 7-18 [facility] Thin prep Papanicolaou smear with manual screeningOrdered By: Gerda Wilks on 06-14-2023 Thin prep Papanicolaou smear with manual screening 5 5-15 [facility] Basophil percentageOrdered B y: Gerda Wilks on 05-17-2023 Chloride [Moles/Vol] 108 mmol/L 98-107 [facility] Glucose [Mass/Vol] 140 mg/dL 74-106 [facility] Comment on above: Fasting Glucose resu lt greater than or equal to 126 mg/dL suggests DIABETES MELLITUS per A.D.A. criteria. Potassium [Moles/Vol] 3.8 mmol/L 3.5-5.1 [facility] Sodium [Moles/Vol] 142 mmol/L 136-145 [facility] WBC (Bld) [#/Vol] 8.5 10*3/uL 4.4-11.0 [facility] Blood erythrocytes count (nu mber/volume)Ordered By: Gerda Wilks on 05-17-2023 RBC (Bld) [#/Vol] 4.43 10*6/uL 4.2-5.4 [facility] Blood hemoglobin measurement (mass/volume)Ordered By: Gerda Wilks on 05-17-2023 Hemoglobin (Bld) [Mass/Vol] 12.6 g/dL 12.0-15.0 [facility] Blood platelet mean volumeOr dered By: Gerda Wilks on 05-17-2023 Platelet mean volume (Bld) [Entitic vol] 10.4 fL 6.2-12.0 [facility] Determination of erythrocyte mean corpuscular volume (MCV)Ordered By: Gerda Wilks on 05-17-2023 MCV (RBC) [Entitic vol] 92.1 fL 81-99 [facility] Hematocrit Auto (Bld) [Volum e fraction]Ordered By: Gerda Wilks on 05-17-2023 Hematocrit (Bld) [Volume fraction] 40.8 % 37-47 [facility] Laboratory - Chemistry and C hemistry - challengeOrdered By: Gerda Wilks on 05-17-2023 CO2 [Moles/Vol] 28.0 mmol/L 21.0-32.0 [facility] Urea nitrogen/Creatinine [Mass ratio] 36.6 mg/mg 10-20 [facility] Laboratory - Hematology and Cell countsOrdered By: Gerda Wilks on 05-17-2023 Erythrocyte distribution width (RBC) [Entitic vol] 55.1 fL 35.1-43.9 [facility] Erythrocyte distribution width (RBC) [Ratio] 16.2 % 11.6-14.6 [facility] MCH (RBC) [Entitic mass] 28.4 pg 27.0-32.0 [facility] MCHC Auto (RBC) [Mass/Vol]Or dered By: Gerda Wilks on 05-17-2023 MCHC (RBC) [Mass/Vol] 30.9 g/dL 32-36 [facility] No Panel InformationOrdered By: Gerda Wilks on 05-17-2023 Estimated GFR (MDRD) Amer 75 mL/min >60 [facility] Comment on above: GFR Calc Estimated GFR (MDRD) Non-Af Amer 62 mL/min >60 [facility] Comment on above: Non- GFR Calc Platelets bldOrdered By: Gustavo Wilks on 05-17-2023 Platelets (Bld) [#/Vol] 254 10*3/uL 150-450 [facility] Serum or plasma calcium chay urement (mass/volume)Ordered By: Gerda Wilks on 05-17-2023 Calcium [Mass/Vol] 9.5 mg/dL 8.5-10.1 [facility] Serum or plasma creatinine m easurement (mass/volume)Ordered By: Gerda Wilks on 05-17-2023 Creatinine [Mass/Vol] 0.93 mg/dL 0.55-1.02 [facility] Comment on above: The validity of the calculated GFR & GFRAA in patients over 70 years has not been determined. Clinical correlation is essential. Serum or plasma urea nitroge n measurement (mass/volume)Ordered By: Gerda Wilks on 05-17-2023 Urea nitrogen [Mass/Vol] 34 mg/dL 7-18 [facility] Thin prep Papanicolaou smear with manual screeningOrdered By: Gerda Wilks on 05-17-2023 Thin prep Papanicolaou smear with manual screening 6 5-15 [facility] Basophil percentageOrdered B y: Gerda Wilks on 04-19-2023 Chloride [Moles/Vol] 109 mmol/L 98-107 [facility] Glucose [Mass/Vol] 107 mg/dL 74-106 [facility] Comment on above: Fasting Glucose resu lt from 100 to 125 mg/dL suggests IMPAIRED HOMEOSTASIS per A.D.A. criteria. Potassium [Moles/Vol] 4.3 mmol/L 3.5-5.1 [facility] Sodium [Moles/Vol] 141 mmol/L 136-145 [facility] WBC (Bld) [#/Vol] 6.6 10*3/uL 4.4-11.0 [facility] Blood erythrocytes count (nu mber/volume)Ordered By: Gerda Wilks on 04-19-2023 RBC (Bld) [#/Vol] 4.20 10*6/uL 4.2-5.4 [facility] Blood hemoglobin measurement (mass/volume)Ordered By: Gerda Wilks on 04-19-2023 Hemoglobin (Bld) [Mass/Vol] 11.8 g/dL 12.0-15.0 [facility] Blood platelet mean volumeOr dered By: Gerda Wilks on 04-19-2023 Platelet mean volume (Bld) [Entitic vol] 10.9 fL 6.2-12.0 [facility] Determination of erythrocyte mean corpuscular volume (MCV)Ordered By: Gerda Wilks on 04-19-2023 MCV (RBC) [Entitic vol] 92.6 fL 81-99 [facility] Hematocrit Auto (Bld) [Volum e fraction]Ordered By: Gerda Wilks on 04-19-2023 Hematocrit (Bld) [Volume fraction] 38.9 % 37-47 [facility] Laboratory - Chemistry and C hemistry - challengeOrdered By: Gerda Wilks on 04-19-2023 CO2 [Moles/Vol] 27.0 mmol/L 21.0-32.0 [facility] Urea nitrogen/Creatinine [Mass ratio] 36.5 mg/mg 10-20 [facility] Laboratory - Hematology and Cell countsOrdered By: Gerda Wilks on 04-19-2023 Erythrocyte distribution width (RBC) [Entitic vol] 55.1 fL 35.1-43.9 [facility] Erythrocyte distribution width (RBC) [Ratio] 16.2 % 11.6-14.6 [facility] MCH (RBC) [Entitic mass] 28.1 pg 27.0-32.0 [facility] MCHC Auto (RBC) [Mass/Vol]Or dered By: Gerda Wilks on 04-19-2023 MCHC (RBC) [Mass/Vol] 30.3 g/dL 32-36 [facility] No Panel InformationOrdered By: Gerda Wilks on 04-19-2023 Estimated GFR (MDRD) Amer 98 mL/min >60 [facility] Comment on above: GFR Calc Estimated GFR (MDRD) Non-Af Amer 81 mL/min >60 [facility] Comment on above: Non- GFR Calc Platelets bldOrdered By: Gustavo Wilks on 04-19-2023 Platelets (Bld) [#/Vol] 247 10*3/uL 150-450 [facility] Serum or plasma calcium chay urement (mass/volume)Ordered By: Gerda Wilks on 04-19-2023 Calcium [Mass/Vol] 9.5 mg/dL 8.5-10.1 [facility] Serum or plasma creatinine m easurement (mass/volume)Ordered By: Gerda Wilks on 04-19-2023 Creatinine [Mass/Vol] 0.74 mg/dL 0.55-1.02 [facility] Comment on above: The validity of the calculated GFR & GFRAA in patients over 70 years has not been determined. Clinical correlation is essential. Serum or plasma urea nitroge n measurement (mass/volume)Ordered By: Gerda Wilks on 04-19-2023 Urea nitrogen [Mass/Vol] 27 mg/dL 7-18 [facility] Thin prep Papanicolaou smear with manual screeningOrdered By: Gerda Wilks on 04-19-2023 Thin prep Papanicolaou smear with manual screening 5 5-15 [facility] Basophil percentageOrdered B y: Gerda Wilks on 03-22-2023 Chloride [Moles/Vol] 107 mmol/L 98-107 [facility] Glucose [Mass/Vol] 98 mg/dL 74-106 [facility] Potassium [Moles/Vol] 3.9 mmol/L 3.5-5.1 [facility] Sodium [Moles/Vol] 139 mmol/L 136-145 [facility] WBC (Bld) [#/Vol] 7.6 10*3/uL 4.4-11.0 [facility] Blood erythrocytes count (nu mber/volume)Ordered By: Gerda Wilks on 03-22-2023 RBC (Bld) [#/Vol] 4.14 10*6/uL 4.2-5.4 [facility] Blood hemoglobin measurement (mass/volume)Ordered By: Gerda Wilks on 03-22-2023 Hemoglobin (Bld) [Mass/Vol] 12.0 g/dL 12.0-15.0 [facility] Blood platelet mean volumeOr dered By: Gerda Wilks on 03-22-2023 Platelet mean volume (Bld) [Entitic vol] 10.9 fL 6.2-12.0 [facility] Determination of erythrocyte mean corpuscular volume (MCV)Ordered By: Gerda Wilks on 03-22-2023 MCV (RBC) [Entitic vol] 91.3 fL 81-99 [facility] Hematocrit Auto (Bld) [Volum e fraction]Ordered By: Gerda Wilks on 03-22-2023 Hematocrit (Bld) [Volume fraction] 37.8 % 37-47 [facility] Laboratory - Chemistry and C hemistry - challengeOrdered By: Gerda Wilks on 03-22-2023 CO2 [Moles/Vol] 26.0 mmol/L 21.0-32.0 [facility] Urea nitrogen/Creatinine [Mass ratio] 35.3 mg/mg 10-20 [facility] Laboratory - Hematology and Cell countsOrdered By: Gerda Wilks on 03-22-2023 Erythrocyte distribution width (RBC) [Entitic vol] 53.3 fL 35.1-43.9 [facility] Erythrocyte distribution width (RBC) [Ratio] 16.0 % 11.6-14.6 [facility] MCH (RBC) [Entitic mass] 29.0 pg 27.0-32.0 [facility] MCHC Auto (RBC) [Mass/Vol]Or dered By: Gerda Wilks on 03-22-2023 MCHC (RBC) [Mass/Vol] 31.7 g/dL 32-36 [facility] No Panel InformationOrdered By: Gerda Wilks on 03-22-2023 Estimated GFR (MDRD) Amer 90 mL/min >60 [facility] Comment on above: GFR Calc Estimated GFR (MDRD) Non-Af Amer 75 mL/min >60 [facility] Comment on above: Non- GFR Calc Platelets bldOrdered By: Gustavo Wilsk on 03-22-2023 Platelets (Bld) [#/Vol] 242 10*3/uL 150-450 [facility] Serum or plasma calcium chay urement (mass/volume)Ordered By: Gerda Wilks on 03-22-2023 Calcium [Mass/Vol] 9.0 mg/dL 8.5-10.1 [facility] Serum or plasma creatinine m easurement (mass/volume)Ordered By: Gerda Wilks on 03-22-2023 Creatinine [Mass/Vol] 0.79 mg/dL 0.55-1.02 [facility] Comment on above: The validity of the calculated GFR & GFRAA in patients over 70 years has not been determined. Clinical correlation is essential. Serum or plasma urea nitroge n measurement (mass/volume)Ordered By: Gerda Wilks on 03-22-2023 Urea nitrogen [Mass/Vol] 28 mg/dL 7-18 [facility] Thin prep Papanicolaou smear with manual screeningOrdered By: Gerda Wilks on 03-22-2023 Thin prep Papanicolaou smear with manual screening 6 5-15 [facility] Basophil percentageOrdered B y: Gerda Wilks on 02-22-2023 Chloride [Moles/Vol] 108 mmol/L 98-107 [facility] Glucose [Mass/Vol] 107 mg/dL 74-106 [facility] Comment on above: Fasting Glucose resu lt from 100 to 125 mg/dL suggests IMPAIRED HOMEOSTASIS per A.D.A. criteria. Potassium [Moles/Vol] 4.2 mmol/L 3.5-5.1 [facility] Sodium [Moles/Vol] 140 mmol/L 136-145 [facility] WBC (Bld) [#/Vol] 6.5 10*3/uL 4.4-11.0 [facility] Blood erythrocytes count (nu mber/volume)Ordered By: Gerda Wilks on 02-22-2023 RBC (Bld) [#/Vol] 4.14 10*6/uL 4.2-5.4 [facility] Blood hemoglobin measurement (mass/volume)Ordered By: Gerda Wilks on 02-22-2023 Hemoglobin (Bld) [Mass/Vol] 11.7 g/dL 12.0-15.0 [facility] Blood platelet mean volumeOr dered By: Gerda Wilks on 02-22-2023 Platelet mean volume (Bld) [Entitic vol] 10.7 fL 6.2-12.0 [facility] Determination of erythrocyte mean corpuscular volume (MCV)Ordered By: Gerda Wilks on 02-22-2023 MCV (RBC) [Entitic vol] 91.3 fL 81-99 [facility] Hematocrit Auto (Bld) [Volum e fraction]Ordered By: Gerda Wilks on 02-22-2023 Hematocrit (Bld) [Volume fraction] 37.8 % 37-47 [facility] Laboratory - Chemistry and C hemistry - challengeOrdered By: Gerda Wilks on 02-22-2023 CO2 [Moles/Vol] 27.0 mmol/L 21.0-32.0 [facility] Urea nitrogen/Creatinine [Mass ratio] 33.5 mg/mg 10-20 [facility] Laboratory - Hematology and Cell countsOrdered By: Gerda Wilks on 02-22-2023 Erythrocyte distribution width (RBC) [Entitic vol] 53.0 fL 35.1-43.9 [facility] Erythrocyte distribution width (RBC) [Ratio] 15.9 % 11.6-14.6 [facility] MCH (RBC) [Entitic mass] 28.3 pg 27.0-32.0 [facility] MCHC Auto (RBC) [Mass/Vol]Or dered By: Gerda Wilks on 02-22-2023 MCHC (RBC) [Mass/Vol] 31.0 g/dL 32-36 [facility] No Panel InformationOrdered By: Gerda Wilks on 02-22-2023 Estimated GFR (MDRD) Amer 93 mL/min >60 [facility] Comment on above: GFR Calc Estimated GFR (MDRD) Non-Af Amer 77 mL/min >60 [facility] Comment on above: Non- GFR Calc Platelets bldOrdered By: Gustavo Wilks on 02-22-2023 Platelets (Bld) [#/Vol] 265 10*3/uL 150-450 [facility] Serum or plasma calcium chay urement (mass/volume)Ordered By: Gerda Wilks on 02-22-2023 Calcium [Mass/Vol] 9.2 mg/dL 8.5-10.1 [facility] Serum or plasma creatinine m easurement (mass/volume)Ordered By: Gerda Wilks on 02-22-2023 Creatinine [Mass/Vol] 0.78 mg/dL 0.55-1.02 [facility] Comment on above: The validity of the calculated GFR & GFRAA in patients over 70 years has not been determined. Clinical correlation is essential. Serum or plasma urea nitroge n measurement (mass/volume)Ordered By: Gerda Wilks on 02-22-2023 Urea nitrogen [Mass/Vol] 26 mg/dL 7-18 [facility] Thin prep Papanicolaou smear with manual screeningOrdered By: Gerda Wilks on 02-22-2023 Thin prep Papanicolaou smear with manual screening 5 5-15 [facility] Basophil percentageOrdered B y: Dr. Wilks on 01-25-2023 Chloride [Moles/Vol] 108 mmol/L 98-107 [facility] Glucose [Mass/Vol] 110 mg/dL 74-106 [facility] Comment on above: Fasting Glucose resu lt from 100 to 125 mg/dL suggests IMPAIRED HOMEOSTASIS per A.D.A. criteria. Potassium [Moles/Vol] 4.1 mmol/L 3.5-5.1 [facility] Sodium [Moles/Vol] 139 mmol/L 136-145 [facility] WBC (Bld) [#/Vol] 7.2 10*3/uL 4.4-11.0 [facility] Blood erythrocytes count (nu mber/volume)Ordered By: Dr. Wilks on 01-25-2023 RBC (Bld) [#/Vol] 4.19 10*6/uL 4.2-5.4 [facility] Blood hemoglobin measurement (mass/volume)Ordered By: Dr. Wilks on 01-25-2023 Hemoglobin (Bld) [Mass/Vol] 12.0 g/dL 12.0-15.0 [facility] Blood platelet mean volumeOr dered By: Dr. Wilks on 01-25-2023 Platelet mean volume (Bld) [Entitic vol] 10.8 fL 6.2-12.0 [facility] Determination of erythrocyte mean corpuscular volume (MCV)Ordered By: Dr. Wilks on 01-25-2023 MCV (RBC) [Entitic vol] 92.8 fL 81-99 [facility] Hematocrit Auto (Bld) [Volum e fraction]Ordered By: Dr. Wilks on 01-25-2023 Hematocrit (Bld) [Volume fraction] 38.9 % 37-47 [facility] Laboratory - Chemistry and C hemistry - challengeOrdered By: Dr. Wilks on 01-25-2023 CO2 [Moles/Vol] 27.0 mmol/L 21.0-32.0 [facility] Urea nitrogen/Creatinine [Mass ratio] 42.3 mg/mg 10-20 [facility] Laboratory - Hematology and Cell countsOrdered By: Dr. Wilks on 01-25-2023 Erythrocyte distribution width (RBC) [Entitic vol] 55.7 fL 35.1-43.9 [facility] Erythrocyte distribution width (RBC) [Ratio] 16.3 % 11.6-14.6 [facility] MCH (RBC) [Entitic mass] 28.6 pg 27.0-32.0 [facility] MCHC Auto (RBC) [Mass/Vol]Or dered By: Dr. Wilks on 01-25-2023 MCHC (RBC) [Mass/Vol] 30.8 g/dL 32-36 [facility] No Panel InformationOrdered By: Dr. Wilks on 01-25-2023 Estimated GFR (MDRD) Amer 86 mL/min >60 [facility] Comment on above: GFR Calc Estimated GFR (MDRD) Non-Af Amer 71 mL/min >60 [facility] Comment on above: Non- GFR Calc Platelets bldOrdered By: Dr. Wilks on 01-25-2023 Platelets (Bld) [#/Vol] 262 10*3/uL 150-450 [facility] Serum or plasma calcium chay urement (mass/volume)Ordered By: Dr. Wilks on 01-25-2023 Calcium [Mass/Vol] 10.1 mg/dL 8.5-10.1 [facility] Serum or plasma creatinine m easurement (mass/volume)Ordered By: Dr. Wilks on 01-25-2023 Creatinine [Mass/Vol] 0.83 mg/dL 0.55-1.02 [facility] Comment on above: The validity of the calculated GFR & GFRAA in patients over 70 years has not been determined. Clinical correlation is essential. Serum or plasma urea nitroge n measurement (mass/volume)Ordered By: Dr. Wilks on 01-25-2023 Urea nitrogen [Mass/Vol] 35 mg/dL 7-18 [facility] Thin prep Papanicolaou smear with manual screeningOrdered By: Dr. Wilks on 01-25-2023 Thin prep Papanicolaou smear with manual screening 4 5-15 [facility] Basophil percentageOrdered B y: Dr. Wilks on 12-28-2022 Chloride [Moles/Vol] 108 mmol/L 98-107 [facility] Glucose [Mass/Vol] 109 mg/dL 74-106 [facility] Comment on above: Fasting Glucose resu lt from 100 to 125 mg/dL suggests IMPAIRED HOMEOSTASIS per A.D.A. criteria. Potassium [Moles/Vol] 4.2 mmol/L 3.5-5.1 [facility] Sodium [Moles/Vol] 141 mmol/L 136-145 [facility] WBC (Bld) [#/Vol] 8.5 10*3/uL 4.4-11.0 [facility] Blood erythrocytes count (nu mber/volume)Ordered By: Dr. Wilks on 12-28-2022 RBC (Bld) [#/Vol] 4.13 10*6/uL 4.2-5.4 [facility] Blood hemoglobin measurement (mass/volume)Ordered By: Dr. Wilks on 12-28-2022 Hemoglobin (Bld) [Mass/Vol] 11.7 g/dL 12.0-15.0 [facility] Blood platelet mean volumeOr dered By: Dr. Wilks on 12-28-2022 Platelet mean volume (Bld) [Entitic vol] 10.7 fL 6.2-12.0 [facility] Determination of erythrocyte mean corpuscular volume (MCV)Ordered By: Dr. Wilks on 12-28-2022 MCV (RBC) [Entitic vol] 92.0 fL 81-99 [facility] Hematocrit Auto (Bld) [Volum e fraction]Ordered By: Dr. Wilks on 12-28-2022 Hematocrit (Bld) [Volume fraction] 38.0 % 37-47 [facility] Laboratory - Chemistry and C hemistry - challengeOrdered By: Dr. Wilks on 12-28-2022 CO2 [Moles/Vol] 26.0 mmol/L 21.0-32.0 [facility] Urea nitrogen/Creatinine [Mass ratio] 30.6 mg/mg 10-20 [facility] Laboratory - Hematology and Cell countsOrdered By: Dr. Wilks on 12-28-2022 Erythrocyte distribution width (RBC) [Entitic vol] 57.1 fL 35.1-43.9 [facility] Erythrocyte distribution width (RBC) [Ratio] 17.2 % 11.6-14.6 [facility] MCH (RBC) [Entitic mass] 28.3 pg 27.0-32.0 [facility] MCHC Auto (RBC) [Mass/Vol]Or dered By: Dr. Wilks on 12-28-2022 MCHC (RBC) [Mass/Vol] 30.8 g/dL 32-36 [facility] No Panel InformationOrdered By: Dr. Wilks on 12-28-2022 Estimated GFR (MDRD) Amer 96 mL/min >60 [facility] Comment on above: GFR Calc Estimated GFR (MDRD) Non-Af Amer 80 mL/min >60 [facility] Comment on above: Non- GFR Calc Platelets bldOrdered By: Dr. Wilks on 12-28-2022 Platelets (Bld) [#/Vol] 254 10*3/uL 150-450 [facility] Serum or plasma calcium chay urement (mass/volume)Ordered By: Dr. Wilks on 12-28-2022 Calcium [Mass/Vol] 9.2 mg/dL 8.5-10.1 [facility] Serum or plasma creatinine m easurement (mass/volume)Ordered By: Dr. Wilks on 12-28-2022 Creatinine [Mass/Vol] 0.75 mg/dL 0.55-1.02 [facility] Comment on above: The validity of the calculated GFR & GFRAA in patients over 70 years has not been determined. Clinical correlation is essential. Serum or plasma urea nitroge n measurement (mass/volume)Ordered By: Dr. Wilks on 12-28-2022 Urea nitrogen [Mass/Vol] 23 mg/dL 7-18 [facility] Thin prep Papanicolaou smear with manual screeningOrdered By: Dr. Wilks on 12-28-2022 Thin prep Papanicolaou smear with manual screening 7 5-15 [facility] Basophil percentageOrdered B y: Dr. Wilks on 11-30-2022 Chloride [Moles/Vol] 107 mmol/L 98-107 [facility] Glucose [Mass/Vol] 154 mg/dL 74-106 [facility] Comment on above: Fasting Glucose resu lt greater than or equal to 126 mg/dL suggests DIABETES MELLITUS per A.D.A. criteria. Potassium [Moles/Vol] 4.0 mmol/L 3.5-5.1 [facility] Sodium [Moles/Vol] 139 mmol/L 136-145 [facility] WBC (Bld) [#/Vol] 7.4 10*3/uL 4.4-11.0 [facility] Blood erythrocytes count (nu mber/volume)Ordered By: Dr. Wilks on 11-30-2022 RBC (Bld) [#/Vol] 4.25 10*6/uL 4.2-5.4 [facility] Blood hemoglobin measurement (mass/volume)Ordered By: Dr. Wilks on 11-30-2022 Hemoglobin (Bld) [Mass/Vol] 11.8 g/dL 12.0-15.0 [facility] Blood platelet mean volumeOr dered By: Dr. Wilks on 11-30-2022 Platelet mean volume (Bld) [Entitic vol] 10.3 fL 6.2-12.0 [facility] Determination of erythrocyte mean corpuscular volume (MCV)Ordered By: Dr. Wilks on 11-30-2022 MCV (RBC) [Entitic vol] 91.3 fL 81-99 [facility] Hematocrit Auto (Bld) [Volum e fraction]Ordered By: Dr. Wilks on 11-30-2022 Hematocrit (Bld) [Volume fraction] 38.8 % 37-47 [facility] Laboratory - Chemistry and C hemistry - challengeOrdered By: Dr. Wilks on 11-30-2022 CO2 [Moles/Vol] 27.0 mmol/L 21.0-32.0 [facility] Urea nitrogen/Creatinine [Mass ratio] 27.8 mg/mg 10-20 [facility] Laboratory - Hematology and Cell countsOrdered By: Dr. iWlks on 11-30-2022 Erythrocyte distribution width (RBC) [Entitic vol] 55.3 fL 35.1-43.9 [facility] Erythrocyte distribution width (RBC) [Ratio] 16.7 % 11.6-14.6 [facility] MCH (RBC) [Entitic mass] 27.8 pg 27.0-32.0 [facility] MCHC Auto (RBC) [Mass/Vol]Or dered By: Dr. Wilks on 11-30-2022 MCHC (RBC) [Mass/Vol] 30.4 g/dL 32-36 [facility] No Panel InformationOrdered By: Dr. Wilks on 11-30-2022 Estimated GFR (MDRD) Amer 82 mL/min >60 [facility] Comment on above: GFR Calc Estimated GFR (MDRD) Non-Af Amer 68 mL/min >60 [facility] Comment on above: Non- GFR Calc Platelets bldOrdered By: Dr. Wilks on 11-30-2022 Platelets (Bld) [#/Vol] 320 10*3/uL 150-450 [facility] Serum or plasma calcium chay urement (mass/volume)Ordered By: Dr. Wilks on 11-30-2022 Calcium [Mass/Vol] 9.5 mg/dL 8.5-10.1 [facility] Serum or plasma creatinine m easurement (mass/volume)Ordered By: Dr. Wilks on 11-30-2022 Creatinine [Mass/Vol] 0.86 mg/dL 0.55-1.02 [facility] Comment on above: The validity of the calculated GFR & GFRAA in patients over 70 years has not been determined. Clinical correlation is essential. Serum or plasma urea nitroge n measurement (mass/volume)Ordered By: Dr. Wilks on 11-30-2022 Urea nitrogen [Mass/Vol] 24 mg/dL 7-18 [facility] Thin prep Papanicolaou smear with manual screeningOrdered By: Dr. Wilks on 11-30-2022 Thin prep Papanicolaou smear with manual screening 5 5-15 [facility] Basophil percentageOrdered B y: Dr. Wilks on 10-30-2022 Basophil percentage 115 mg/dL 74-106 [facility] Basophil percentage 137 mmol/L 136-145 [facility] Basophil percentage 4.2 mmol/L 3.5-5.1 [facility] Basophil percentage 104 mmol/L 98-107 [facility] Basophils (Bld) [#/Vol] 8.3 10*3/uL 4.4-11.0 [facility] Chloride [Moles/Vol] 104 mmol/L 98-107 [facility] Glucose [Mass/Vol] 115 mg/dL 74-106 [facility] Comment on above: Fasting Glucose resu lt from 100 to 125 mg/dL suggests IMPAIRED HOMEOSTASIS per A.D.A. criteria. Potassium [Moles/Vol] 4.2 mmol/L 3.5-5.1 [facility] Sodium [Moles/Vol] 137 mmol/L 136-145 [facility] WBC (Bld) [#/Vol] 8.3 10*3/uL 4.4-11.0 [facility] Blood erythrocytes count (nu mber/volume)Ordered By: Dr. Wilks on 10-30-2022 RBC (Bld) [#/Vol] 4.14 10*6/uL 4.2-5.4 [facility] Blood hemoglobin measurement (mass/volume)Ordered By: Dr. Wilks on 10-30-2022 Hemoglobin (Bld) [Mass/Vol] 11.6 g/dL 12.0-15.0 [facility] Blood platelet mean volumeOr dered By: Dr. Wilks on 10-30-2022 Platelet mean volume (Bld) [Entitic vol] 10.3 fL 6.2-12.0 [facility] Determination of erythrocyte mean corpuscular volume (MCV)Ordered By: Dr. Wilks on 10-30-2022 MCV (RBC) [Entitic vol] 88.2 fL 81-99 [facility] Hematocrit Auto (Bld) [Volum e fraction]Ordered By: Dr. Wilks on 10-30-2022 Hematocrit (Bld) [Volume fraction] 36.5 % 37-47 [facility] Laboratory - Chemistry and C hemistry - challengeOrdered By: Dr. Wilks on 10-30-2022 CO2 [Moles/Vol] 25.0 mmol/L 21.0-32.0 [facility] Urea nitrogen/Creatinine [Mass ratio] 27.9 mg/mg 10-20 [facility] Laboratory - Hematology and Cell countsOrdered By: Dr. Wilks on 10-30-2022 Erythrocyte distribution width (RBC) [Entitic vol] 51.9 fL 35.1-43.9 [facility] Erythrocyte distribution width (RBC) [Ratio] 15.9 % 11.6-14.6 [facility] MCH (RBC) [Entitic mass] 28.0 pg 27.0-32.0 [facility] MCHC Auto (RBC) [Mass/Vol]Or dered By: Dr. Wilks on 10-30-2022 MCHC (RBC) [Mass/Vol] 31.8 g/dL 32-36 [facility] No Panel InformationOrdered By: Dr. Wilks on 10-30-2022 Estimated GFR (MDRD) Amer 83 mL/min >60 [facility] Comment on above: GFR Calc Estimated GFR (MDRD) Non-Af Amer 68 mL/min >60 [facility] Comment on above: Non- GFR Calc 28.0 pg 27.0-32.0 [facility] 15.9 % 11.6-14.6 [facility] 51.9 fl 35.1-43.9 [facility] 68 mL/min >60 [facility] 83 mL/min >60 [facility] 27.9 RATIO 10-20 [facility] 25.0 mmol/L 21.0-32.0 [facility] Platelets bldOrdered By: Dr. Wilks on 10-30-2022 Platelets (Bld) [#/Vol] 318 10*3/uL 150-450 [facility] Serum or plasma calcium chay urement (mass/volume)Ordered By: Dr. Wilks on 10-30-2022 Calcium [Mass/Vol] 9.5 mg/dL 8.5-10.1 [facility] Serum or plasma creatinine m easurement (mass/volume)Ordered By: Dr. Wilks on 10-30-2022 Creatinine [Mass/Vol] 0.86 mg/dL 0.55-1.02 [facility] Comment on above: The validity of the calculated GFR & GFRAA in patients over 70 years has not been determined. Clinical correlation is essential. Serum or plasma urea nitroge n measurement (mass/volume)Ordered By: Dr. Wilks on 10-30-2022 Urea nitrogen [Mass/Vol] 24 mg/dL 7-18 [facility] Thin prep Papanicolaou smear with manual screeningOrdered By: Dr. Wilks on 10-30-2022 Thin prep Papanicolaou smear with manual screening 8 5-15 [facility] Absolute lymphocyte countOrd ered By: Dr. Wilks on 10-17-2022 Lymphocytes Auto (Unsp spec) [#/Vol] 1.14 10*3/uL 0.83-4.51 [facility] Basophil percentageOrdered B y: Dr. Wilks on 10-17-2022 Basophil percentage 125 mg/dL 74-106 [facility] Basophil percentage 138 mmol/L 136-145 [facility] Basophil percentage 4.2 mmol/L 3.5-5.1 [facility] Basophil percentage 106 mmol/L 98-107 [facility] Basophils (Bld) [#/Vol] 7.9 10*3/uL 4.4-11.0 [facility] Basophils (Bld) [#/Vol] 5.8 10*3/uL 2.0-7.7 [facility] Basophils/100 WBC (Bld) 72.7 % 47-70 [facility] Basophils/100 WBC (Bld) 3.8 % 0-5 [facility] Basophils/100 WBC (Bld) 1.0 % 0-1 [facility] Chloride [Moles/Vol] 106 mmol/L 98-107 [facility] Eosinophils/100 WBC (Bld) 3.8 % 0-5 [facility] Glucose [Mass/Vol] 125 mg/dL 74-106 [facility] Comment on above: Fasting Glucose resu lt from 100 to 125 mg/dL suggests IMPAIRED HOMEOSTASIS per A.D.A. criteria. Neutrophils (Bld) [#/Vol] 5.8 10*3/uL 2.0-7.7 [facility] Neutrophils/100 WBC (Bld) 72.7 % 47-70 [facility] Potassium [Moles/Vol] 4.2 mmol/L 3.5-5.1 [facility] Sodium [Moles/Vol] 138 mmol/L 136-145 [facility] WBC (Bld) [#/Vol] 7.9 10*3/uL 4.4-11.0 [facility] Blood erythrocytes count (nu mber/volume)Ordered By: Dr. Wilks on 10-17-2022 RBC (Bld) [#/Vol] 4.58 10*6/uL 4.2-5.4 [facility] Blood hemoglobin measurement (mass/volume)Ordered By: Dr. Wilks on 10-17-2022 Hemoglobin (Bld) [Mass/Vol] 12.8 g/dL 12.0-15.0 [facility] Blood lymphocytes/100 leukoc ytesOrdered By: Dr. Wilks on 10-17-2022 Lymphocytes/100 WBC (Bld) 14.4 % 19-41 [facility] Blood monocytes/100 leukocyt esOrdered By: Dr. Wilks on 10-17-2022 Monocytes/100 WBC (Bld) 7.8 % 0-10 [facility] Blood platelet mean volumeOr dered By: Dr. Wilks on 10-17-2022 Platelet mean volume (Bld) [Entitic vol] 10.8 fL 6.2-12.0 [facility] Determination of erythrocyte mean corpuscular volume (MCV)Ordered By: Dr. Wilks on 10-17-2022 MCV (RBC) [Entitic vol] 90.0 fL 81-99 [facility] Hematocrit Auto (Bld) [Volum e fraction]Ordered By: Dr. Wilks on 10-17-2022 Hematocrit (Bld) [Volume fraction] 41.2 % 37-47 [facility] Laboratory - Chemistry and C hemistry - challengeOrdered By: Dr. Wilks on 10-17-2022 CO2 [Moles/Vol] 26.0 mmol/L 21.0-32.0 [facility] Urea nitrogen/Creatinine [Mass ratio] 23.6 mg/mg 10-20 [facility] Laboratory - Hematology and Cell countsOrdered By: Dr. Wilks on 10-17-2022 Erythrocyte distribution width (RBC) [Entitic vol] 54.4 fL 35.1-43.9 [facility] Erythrocyte distribution width (RBC) [Ratio] 16.7 % 11.6-14.6 [facility] Immature granulocytes/100 WBC (Bld) 0.300 % 0.0-0.9 [facility] Comment on above: IG% - Immature Granu locytes (promyelocytes, myelocytes and metamyelocytes) > 1% indicates that a LEFT SHIFT is Present. MCH (RBC) [Entitic mass] 27.9 pg 27.0-32.0 [facility] Nucleated RBC/100 WBC (Bld) [Ratio] 0 % 0-5 [facility] MCHC Auto (RBC) [Mass/Vol]Or dered By: Dr. Wilks on 10-17-2022 MCHC (RBC) [Mass/Vol] 31.1 g/dL 32-36 [facility] No Panel InformationOrdered By: Dr. Wilks on 10-17-2022 Estimated GFR (MDRD) Amer 84 mL/min >60 [facility] Comment on above: GFR Calc Estimated GFR (MDRD) Non-Af Amer 70 mL/min >60 [facility] Comment on above: Non- GFR Calc 27.9 pg 27.0-32.0 [facility] 16.7 % 11.6-14.6 [facility] 54.4 fl 35.1-43.9 [facility] 0.300 % 0.0-0.9 [facility] 0 % 0-5 [facility] 70 mL/min >60 [facility] 84 mL/min >60 [facility] 23.6 RATIO 10-20 [facility] 26.0 mmol/L 21.0-32.0 [facility] Platelets bldOrdered By: Dr. Wilks on 10-17-2022 Platelets (Bld) [#/Vol] 273 10*3/uL 150-450 [facility] Serum or plasma calcium chay urement (mass/volume)Ordered By: Dr. Wilks on 10-17-2022 Calcium [Mass/Vol] 10.0 mg/dL 8.5-10.1 [facility] Serum or plasma creatinine m easurement (mass/volume)Ordered By: Dr. Wilks on 10-17-2022 Creatinine [Mass/Vol] 0.85 mg/dL 0.55-1.02 [facility] Comment on above: The validity of the calculated GFR & GFRAA in patients over 70 years has not been determined. Clinical correlation is essential. Serum or plasma urea nitroge n measurement (mass/volume)Ordered By: Dr. Wilks on 10-17-2022 Urea nitrogen [Mass/Vol] 20 mg/dL 7-18 [facility] Thin prep Papanicolaou smear with manual screeningOrdered By: Dr. Wilks on 10-17-2022 Thin prep Papanicolaou smear with manual screening 6 5-15 [facility] Absolute lymphocyte countOrd ered By: Dr. Wilks on 10-10-2022 Lymphocytes Auto (Unsp spec) [#/Vol] 1.40 10*3/uL 0.83-4.51 [facility] Basophil percentageOrdered B y: Dr. Wilks on 10-10-2022 Basophil percentage 112 mg/dL 74-106 [facility] Basophil percentage 140 mmol/L 136-145 [facility] Basophil percentage 4.4 mmol/L 3.5-5.1 [facility] Basophil percentage 106 mmol/L 98-107 [facility] Basophils (Bld) [#/Vol] 7.3 10*3/uL 4.4-11.0 [facility] Basophils (Bld) [#/Vol] 4.8 10*3/uL 2.0-7.7 [facility] Basophils/100 WBC (Bld) 65.6 % 47-70 [facility] Basophils/100 WBC (Bld) 5.0 % 0-5 [facility] Basophils/100 WBC (Bld) 0.8 % 0-1 [facility] Chloride [Moles/Vol] 106 mmol/L 98-107 [facility] Eosinophils/100 WBC (Bld) 5.0 % 0-5 [facility] Glucose [Mass/Vol] 112 mg/dL 74-106 [facility] Comment on above: Fasting Glucose resu lt from 100 to 125 mg/dL suggests IMPAIRED HOMEOSTASIS per A.D.A. criteria. Neutrophils (Bld) [#/Vol] 4.8 10*3/uL 2.0-7.7 [facility] Neutrophils/100 WBC (Bld) 65.6 % 47-70 [facility] Potassium [Moles/Vol] 4.4 mmol/L 3.5-5.1 [facility] Sodium [Moles/Vol] 140 mmol/L 136-145 [facility] WBC (Bld) [#/Vol] 7.3 10*3/uL 4.4-11.0 [facility] Blood erythrocytes count (nu mber/volume)Ordered By: Dr. Wilks on 10-10-2022 RBC (Bld) [#/Vol] 4.59 10*6/uL 4.2-5.4 [facility] Blood hemoglobin measurement (mass/volume)Ordered By: Dr. Wilks on 10-10-2022 Hemoglobin (Bld) [Mass/Vol] 12.8 g/dL 12.0-15.0 [facility] Blood lymphocytes/100 leukoc ytesOrdered By: Dr. Wilks on 10-10-2022 Lymphocytes/100 WBC (Bld) 19.1 % 19-41 [facility] Blood monocytes/100 leukocyt esOrdered By: Dr. Wilks on 10-10-2022 Monocytes/100 WBC (Bld) 9.1 % 0-10 [facility] Blood platelet mean volumeOr dered By: Dr. Wilks on 10-10-2022 Platelet mean volume (Bld) [Entitic vol] 10.6 fL 6.2-12.0 [facility] Determination of erythrocyte mean corpuscular volume (MCV)Ordered By: Dr. Wilks on 10-10-2022 MCV (RBC) [Entitic vol] 89.3 fL 81-99 [facility] Hematocrit Auto (Bld) [Volum e fraction]Ordered By: Dr. Wilks on 10-10-2022 Hematocrit (Bld) [Volume fraction] 41.0 % 37-47 [facility] Laboratory - Chemistry and C hemistry - challengeOrdered By: Dr. Wilks on 10-10-2022 CO2 [Moles/Vol] 29.0 mmol/L 21.0-32.0 [facility] Urea nitrogen/Creatinine [Mass ratio] 25.5 mg/mg 10-20 [facility] Laboratory - Hematology and Cell countsOrdered By: Dr. Wilks on 10-10-2022 Erythrocyte distribution width (RBC) [Entitic vol] 53.8 fL 35.1-43.9 [facility] Erythrocyte distribution width (RBC) [Ratio] 16.6 % 11.6-14.6 [facility] Immature granulocytes/100 WBC (Bld) 0.400 % 0.0-0.9 [facility] Comment on above: IG% - Immature Granu locytes (promyelocytes, myelocytes and metamyelocytes) > 1% indicates that a LEFT SHIFT is Present. MCH (RBC) [Entitic mass] 27.9 pg 27.0-32.0 [facility] Nucleated RBC/100 WBC (Bld) [Ratio] 0 % 0-5 [facility] MCHC Auto (RBC) [Mass/Vol]Or dered By: Dr. Wilks on 10-10-2022 MCHC (RBC) [Mass/Vol] 31.2 g/dL 32-36 [facility] No Panel InformationOrdered By: Dr. Wilks on 10-10-2022 Estimated GFR (MDRD) Amer 87 mL/min >60 [facility] Comment on above: GFR Calc Estimated GFR (MDRD) Non-Af Amer 72 mL/min >60 [facility] Comment on above: Non- GFR Calc 27.9 pg 27.0-32.0 [facility] 16.6 % 11.6-14.6 [facility] 53.8 fl 35.1-43.9 [facility] 0.400 % 0.0-0.9 [facility] 0 % 0-5 [facility] 72 mL/min >60 [facility] 87 mL/min >60 [facility] 25.5 RATIO 10-20 [facility] 29.0 mmol/L 21.0-32.0 [facility] Platelets bldOrdered By: Dr. Wilks on 10-10-2022 Platelets (Bld) [#/Vol] 287 10*3/uL 150-450 [facility] Serum or plasma calcium chay urement (mass/volume)Ordered By: Dr. Wilks on 10-10-2022 Calcium [Mass/Vol] 11.2 mg/dL 8.5-10.1 [facility] Serum or plasma creatinine m easurement (mass/volume)Ordered By: Dr. Wilks on 10-10-2022 Creatinine [Mass/Vol] 0.82 mg/dL 0.55-1.02 [facility] Comment on above: The validity of the calculated GFR & GFRAA in patients over 70 years has not been determined. Clinical correlation is essential. Serum or plasma urea nitroge n measurement (mass/volume)Ordered By: Dr. Wilks on 10-10-2022 Urea nitrogen [Mass/Vol] 21 mg/dL 7-18 [facility] Thin prep Papanicolaou smear with manual screeningOrdered By: Dr. Wilks on 10-10-2022 Thin prep Papanicolaou smear with manual screening 5 5-15 [facility] No Panel InformationOrdered By: Dr. Wilks on 10-04-2022 Ionized Calcium 6.5 mg/dL 4.5-5.6 [facility] Comment on above: Performed at: [place] [id number] Director: Alexis Thomas PhD, Phone: [phone] Parathyroid Hormone (Intact) 90.9 pg/mL 18.4-80.1 [facility] 90.9 pg/mL 18.4-80.1 [facility] 6.5 mg/dL 4.5-5.6 [facility] Absolute lymphocyte countOrd ered By: Dr. Wilks on 10-03-2022 Lymphocytes Auto (Unsp spec) [#/Vol] 1.55 10*3/uL 0.83-4.51 [facility] Basophil percentageOrdered B y: Dr. Wilks on 10-03-2022 Basophil percentage 111 mg/dL 74-106 [facility] Basophil percentage 142 mmol/L 136-145 [facility] Basophil percentage 4.4 mmol/L 3.5-5.1 [facility] Basophil percentage 111 mmol/L 98-107 [facility] Basophils (Bld) [#/Vol] 8.1 10*3/uL 4.4-11.0 [facility] Basophils (Bld) [#/Vol] 5.3 10*3/uL 2.0-7.7 [facility] Basophils/100 WBC (Bld) 66.0 % 47-70 [facility] Basophils/100 WBC (Bld) 5.1 % 0-5 [facility] Basophils/100 WBC (Bld) 1.0 % 0-1 [facility] Chloride [Moles/Vol] 111 mmol/L 98-107 [facility] Eosinophils/100 WBC (Bld) 5.1 % 0-5 [facility] Glucose [Mass/Vol] 111 mg/dL 74-106 [facility] Comment on above: Fasting Glucose resu lt from 100 to 125 mg/dL suggests IMPAIRED HOMEOSTASIS per A.D.A. criteria. Neutrophils (Bld) [#/Vol] 5.3 10*3/uL 2.0-7.7 [facility] Neutrophils/100 WBC (Bld) 66.0 % 47-70 [facility] Potassium [Moles/Vol] 4.4 mmol/L 3.5-5.1 [facility] Comment on above: Slight Hemolysis, Re sult may be falsely increased. Sodium [Moles/Vol] 142 mmol/L 136-145 [facility] WBC (Bld) [#/Vol] 8.1 10*3/uL 4.4-11.0 [facility] Blood erythrocytes count (nu mber/volume)Ordered By: Dr. Wilks on 10-03-2022 RBC (Bld) [#/Vol] 4.70 10*6/uL 4.2-5.4 [facility] Blood hemoglobin measurement (mass/volume)Ordered By: Dr. Wilks on 10-03-2022 Hemoglobin (Bld) [Mass/Vol] 12.9 g/dL 12.0-15.0 [facility] Blood lymphocytes/100 leukoc ytesOrdered By: Dr. Wilks on 10-03-2022 Lymphocytes/100 WBC (Bld) 19.2 % 19-41 [facility] Blood monocytes/100 leukocyt esOrdered By: Dr. Wilks on 10-03-2022 Monocytes/100 WBC (Bld) 8.5 % 0-10 [facility] Blood platelet mean volumeOr dered By: Dr. Wilks on 10-03-2022 Platelet mean volume (Bld) [Entitic vol] 10.7 fL 6.2-12.0 [facility] Determination of erythrocyte mean corpuscular volume (MCV)Ordered By: Dr. Wilks on 10-03-2022 MCV (RBC) [Entitic vol] 91.1 fL 81-99 [facility] Hematocrit Auto (Bld) [Volum e fraction]Ordered By: Dr. Wilks on 10-03-2022 Hematocrit (Bld) [Volume fraction] 42.8 % 37-47 [facility] Laboratory - Chemistry and C hemistry - challengeOrdered By: Dr. Wilks on 10-03-2022 CO2 [Moles/Vol] 24.0 mmol/L 21.0-32.0 [facility] Urea nitrogen/Creatinine [Mass ratio] 23.6 mg/mg 10-20 [facility] Laboratory - Hematology and Cell countsOrdered By: Dr. Wilks on 10-03-2022 Erythrocyte distribution width (RBC) [Entitic vol] 55.8 fL 35.1-43.9 [facility] Erythrocyte distribution width (RBC) [Ratio] 16.4 % 11.6-14.6 [facility] Immature granulocytes/100 WBC (Bld) 0.200 % 0.0-0.9 [facility] Comment on above: IG% - Immature Granu locytes (promyelocytes, myelocytes and metamyelocytes) > 1% indicates that a LEFT SHIFT is Present. MCH (RBC) [Entitic mass] 27.4 pg 27.0-32.0 [facility] Nucleated RBC/100 WBC (Bld) [Ratio] 0 % 0-5 [facility] MCHC Auto (RBC) [Mass/Vol]Or dered By: Dr. Wilks on 10-03-2022 MCHC (RBC) [Mass/Vol] 30.1 g/dL 32-36 [facility] No Panel InformationOrdered By: Dr. Wilks on 10-03-2022 Estimated GFR (MDRD) Amer 89 mL/min >60 [facility] Comment on above: GFR Calc Estimated GFR (MDRD) Non-Af Amer 74 mL/min >60 [facility] Comment on above: Non- GFR Calc 27.4 pg 27.0-32.0 [facility] 16.4 % 11.6-14.6 [facility] 55.8 fl 35.1-43.9 [facility] 0.200 % 0.0-0.9 [facility] 0 % 0-5 [facility] 74 mL/min >60 [facility] 89 mL/min >60 [facility] 23.6 RATIO 10-20 [facility] 24.0 mmol/L 21.0-32.0 [facility] Platelets bldOrdered By: Dr. Wilks on 10-03-2022 Platelets (Bld) [#/Vol] 312 10*3/uL 150-450 [facility] Serum or plasma calcium chay urement (mass/volume)Ordered By: Dr. Wilks on 10-03-2022 Calcium [Mass/Vol] 11.1 mg/dL 8.5-10.1 [facility] Serum or plasma creatinine m easurement (mass/volume)Ordered By: Dr. Wilks on 10-03-2022 Creatinine [Mass/Vol] 0.80 mg/dL 0.55-1.02 [facility] Comment on above: The validity of the calculated GFR & GFRAA in patients over 70 years has not been determined. Clinical correlation is essential. Serum or plasma urea nitroge n measurement (mass/volume)Ordered By: Dr. Wilks on 10-03-2022 Urea nitrogen [Mass/Vol] 19 mg/dL 7-18 [facility] Thin prep Papanicolaou smear with manual screeningOrdered By: Dr. Wilks on 10-03-2022 Thin prep Papanicolaou smear with manual screening 7 5-15 [facility] Absolute lymphocyte countOrd ered By: Dr. Wilks on 09-26-2022 Lymphocytes Auto (Unsp spec) [#/Vol] 1.47 10*3/uL 0.83-4.51 [facility] Basophil percentageOrdered B y: Dr. Wilks on 09-26-2022 Basophil percentage 116 mg/dL 74-106 [facility] Basophil percentage 139 mmol/L 136-145 [facility] Basophil percentage 4.0 mmol/L 3.5-5.1 [facility] Basophil percentage 106 mmol/L 98-107 [facility] Basophils (Bld) [#/Vol] 8.4 10*3/uL 4.4-11.0 [facility] Basophils (Bld) [#/Vol] 5.5 10*3/uL 2.0-7.7 [facility] Basophils/100 WBC (Bld) 65.5 % 47-70 [facility] Basophils/100 WBC (Bld) 6.2 % 0-5 [facility] Basophils/100 WBC (Bld) 0.8 % 0-1 [facility] Chloride [Moles/Vol] 106 mmol/L 98-107 [facility] Eosinophils/100 WBC (Bld) 6.2 % 0-5 [facility] Glucose [Mass/Vol] 116 mg/dL 74-106 [facility] Comment on above: Fasting Glucose resu lt from 100 to 125 mg/dL suggests IMPAIRED HOMEOSTASIS per A.D.A. criteria. Neutrophils (Bld) [#/Vol] 5.5 10*3/uL 2.0-7.7 [facility] Neutrophils/100 WBC (Bld) 65.5 % 47-70 [facility] Potassium [Moles/Vol] 4.0 mmol/L 3.5-5.1 [facility] Sodium [Moles/Vol] 139 mmol/L 136-145 [facility] WBC (Bld) [#/Vol] 8.4 10*3/uL 4.4-11.0 [facility] Blood erythrocytes count (nu mber/volume)Ordered By: Dr. Wilks on 09-26-2022 RBC (Bld) [#/Vol] 4.33 10*6/uL 4.2-5.4 [facility] Blood hemoglobin measurement (mass/volume)Ordered By: Dr. Wilks on 09-26-2022 Hemoglobin (Bld) [Mass/Vol] 11.9 g/dL 12.0-15.0 [facility] Blood lymphocytes/100 leukoc ytesOrdered By: Dr. Wilks on 09-26-2022 Lymphocytes/100 WBC (Bld) 17.5 % 19-41 [facility] Blood monocytes/100 leukocyt esOrdered By: Dr. Wilks on 09-26-2022 Monocytes/100 WBC (Bld) 9.4 % 0-10 [facility] Blood platelet mean volumeOr dered By: Dr. Wilks on 09-26-2022 Platelet mean volume (Bld) [Entitic vol] 10.8 fL 6.2-12.0 [facility] Determination of erythrocyte mean corpuscular volume (MCV)Ordered By: Dr. Wilks on 09-26-2022 MCV (RBC) [Entitic vol] 89.8 fL 81-99 [facility] Hematocrit Auto (Bld) [Volum e fraction]Ordered By: Dr. Wilks on 09-26-2022 Hematocrit (Bld) [Volume fraction] 38.9 % 37-47 [facility] Laboratory - Chemistry and C hemistry - challengeOrdered By: Dr. Wilks on 09-26-2022 CO2 [Moles/Vol] 28.0 mmol/L 21.0-32.0 [facility] Urea nitrogen/Creatinine [Mass ratio] 24.9 mg/mg 10-20 [facility] Laboratory - Hematology and Cell countsOrdered By: Dr. Wilks on 09-26-2022 Erythrocyte distribution width (RBC) [Entitic vol] 54.1 fL 35.1-43.9 [facility] Erythrocyte distribution width (RBC) [Ratio] 16.5 % 11.6-14.6 [facility] Immature granulocytes/100 WBC (Bld) 0.600 % 0.0-0.9 [facility] Comment on above: IG% - Immature Granu locytes (promyelocytes, myelocytes and metamyelocytes) > 1% indicates that a LEFT SHIFT is Present. MCH (RBC) [Entitic mass] 27.5 pg 27.0-32.0 [facility] Nucleated RBC/100 WBC (Bld) [Ratio] 0 % 0-5 [facility] MCHC Auto (RBC) [Mass/Vol]Or dered By: Dr. Wilks on 09-26-2022 MCHC (RBC) [Mass/Vol] 30.6 g/dL 32-36 [facility] No Panel InformationOrdered By: Dr. Wilks on 09-26-2022 Estimated GFR (MDRD) Amer 95 mL/min >60 [facility] Comment on above: GFR Calc Estimated GFR (MDRD) Non-Af Amer 78 mL/min >60 [facility] Comment on above: Non- GFR Calc 27.5 pg 27.0-32.0 [facility] 16.5 % 11.6-14.6 [facility] 54.1 fl 35.1-43.9 [facility] 0.600 % 0.0-0.9 [facility] 0 % 0-5 [facility] 78 mL/min >60 [facility] 95 mL/min >60 [facility] 24.9 RATIO 10-20 [facility] 28.0 mmol/L 21.0-32.0 [facility] Platelets bldOrdered By: Dr. Wilks on 09-26-2022 Platelets (Bld) [#/Vol] 277 10*3/uL 150-450 [facility] Serum or plasma calcium chay urement (mass/volume)Ordered By: Dr. Wilks on 09-26-2022 Calcium [Mass/Vol] 10.8 mg/dL 8.5-10.1 [facility] Serum or plasma creatinine m easurement (mass/volume)Ordered By: Dr. Wilks on 09-26-2022 Creatinine [Mass/Vol] 0.76 mg/dL 0.55-1.02 [facility] Comment on above: The validity of the calculated GFR & GFRAA in patients over 70 years has not been determined. Clinical correlation is essential. Serum or plasma urea nitroge n measurement (mass/volume)Ordered By: Dr. Wilks on 09-26-2022 Urea nitrogen [Mass/Vol] 19 mg/dL 7-18 [facility] Thin prep Papanicolaou smear with manual screeningOrdered By: Dr. Wilks on 09-26-2022 Thin prep Papanicolaou smear with manual screening 5 5-15 [facility] Absolute lymphocyte countOrd ered By: Dr. Wilks on 09-19-2022 Lymphocytes Auto (Unsp spec) [#/Vol] 1.24 10*3/uL 0.83-4.51 [facility] Basophil percentageOrdered B y: Dr. Wilks on 09-19-2022 Basophil percentage 113 mg/dL 74-106 [facility] Basophil percentage 140 mmol/L 136-145 [facility] Basophil percentage 3.9 mmol/L 3.5-5.1 [facility] Basophil percentage 107 mmol/L 98-107 [facility] Basophils (Bld) [#/Vol] 8.0 10*3/uL 4.4-11.0 [facility] Basophils (Bld) [#/Vol] 5.5 10*3/uL 2.0-7.7 [facility] Basophils/100 WBC (Bld) 68.6 % 47-70 [facility] Basophils/100 WBC (Bld) 5.6 % 0-5 [facility] Basophils/100 WBC (Bld) 0.9 % 0-1 [facility] Chloride [Moles/Vol] 107 mmol/L 98-107 [facility] Eosinophils/100 WBC (Bld) 5.6 % 0-5 [facility] Glucose [Mass/Vol] 113 mg/dL 74-106 [facility] Comment on above: Fasting Glucose resu lt from 100 to 125 mg/dL suggests IMPAIRED HOMEOSTASIS per A.D.A. criteria. Neutrophils (Bld) [#/Vol] 5.5 10*3/uL 2.0-7.7 [facility] Neutrophils/100 WBC (Bld) 68.6 % 47-70 [facility] Potassium [Moles/Vol] 3.9 mmol/L 3.5-5.1 [facility] Sodium [Moles/Vol] 140 mmol/L 136-145 [facility] WBC (Bld) [#/Vol] 8.0 10*3/uL 4.4-11.0 [facility] Blood erythrocytes count (nu mber/volume)Ordered By: Dr. Wilks on 09-19-2022 RBC (Bld) [#/Vol] 4.38 10*6/uL 4.2-5.4 [facility] Blood hemoglobin measurement (mass/volume)Ordered By: Dr. Wilks on 09-19-2022 Hemoglobin (Bld) [Mass/Vol] 12.2 g/dL 12.0-15.0 [facility] Blood lymphocytes/100 leukoc ytesOrdered By: Dr. Wilks on 09-19-2022 Lymphocytes/100 WBC (Bld) 15.5 % 19-41 [facility] Blood monocytes/100 leukocyt esOrdered By: Dr. Wilks on 09-19-2022 Monocytes/100 WBC (Bld) 9.1 % 0-10 [facility] Blood platelet mean volumeOr dered By: Dr. Wilks on 09-19-2022 Platelet mean volume (Bld) [Entitic vol] 11.2 fL 6.2-12.0 [facility] Determination of erythrocyte mean corpuscular volume (MCV)Ordered By: Dr. Wilks on 09-19-2022 MCV (RBC) [Entitic vol] 90.9 fL 81-99 [facility] Hematocrit Auto (Bld) [Volum e fraction]Ordered By: Dr. Wilks on 09-19-2022 Hematocrit (Bld) [Volume fraction] 39.8 % 37-47 [facility] Laboratory - Chemistry and C hemistry - challengeOrdered By: Dr. Wilks on 09-19-2022 CO2 [Moles/Vol] 27.0 mmol/L 21.0-32.0 [facility] Urea nitrogen/Creatinine [Mass ratio] 25.8 mg/mg 10-20 [facility] Laboratory - Hematology and Cell countsOrdered By: Dr. Wilks on 09-19-2022 Erythrocyte distribution width (RBC) [Entitic vol] 54.8 fL 35.1-43.9 [facility] Erythrocyte distribution width (RBC) [Ratio] 16.4 % 11.6-14.6 [facility] Immature granulocytes/100 WBC (Bld) 0.300 % 0.0-0.9 [facility] Comment on above: IG% - Immature Granu locytes (promyelocytes, myelocytes and metamyelocytes) > 1% indicates that a LEFT SHIFT is Present. MCH (RBC) [Entitic mass] 27.9 pg 27.0-32.0 [facility] Nucleated RBC/100 WBC (Bld) [Ratio] 0 % 0-5 [facility] MCHC Auto (RBC) [Mass/Vol]Or dered By: Dr. Wilks on 09-19-2022 MCHC (RBC) [Mass/Vol] 30.7 g/dL 32-36 [facility] No Panel InformationOrdered By: Dr. Wilks on 09-19-2022 Estimated GFR (MDRD) Amer 88 mL/min >60 [facility] Comment on above: GFR Calc Estimated GFR (MDRD) Non-Af Amer 73 mL/min >60 [facility] Comment on above: Non- GFR Calc 27.9 pg 27.0-32.0 [facility] 16.4 % 11.6-14.6 [facility] 54.8 fl 35.1-43.9 [facility] 0.300 % 0.0-0.9 [facility] 0 % 0-5 [facility] 73 mL/min >60 [facility] 88 mL/min >60 [facility] 25.8 RATIO 10-20 [facility] 27.0 mmol/L 21.0-32.0 [facility] Platelets bldOrdered By: Dr. Wilks on 09-19-2022 Platelets (Bld) [#/Vol] 299 10*3/uL 150-450 [facility] Serum or plasma calcium chay urement (mass/volume)Ordered By: Dr. Wilks on 09-19-2022 Calcium [Mass/Vol] 10.3 mg/dL 8.5-10.1 [facility] Serum or plasma creatinine m easurement (mass/volume)Ordered By: Dr. Wilks on 09-19-2022 Creatinine [Mass/Vol] 0.81 mg/dL 0.55-1.02 [facility] Comment on above: The validity of the calculated GFR & GFRAA in patients over 70 years has not been determined. Clinical correlation is essential. Serum or plasma urea nitroge n measurement (mass/volume)Ordered By: Dr. Wilks on 09-19-2022 Urea nitrogen [Mass/Vol] 21 mg/dL 7-18 [facility] Thin prep Papanicolaou smear with manual screeningOrdered By: Dr. Wilks on 09-19-2022 Thin prep Papanicolaou smear with manual screening 6 5-15 [facility] Absolute lymphocyte countOrd ered By: Dr. Wilks on 09-12-2022 Lymphocytes Auto (Unsp spec) [#/Vol] 1.68 10*3/uL 0.83-4.51 [facility] Basophil percentageOrdered B y: Dr. Wilks on 09-12-2022 Basophil percentage 114 mg/dL 74-106 [facility] Basophil percentage 139 mmol/L 136-145 [facility] Basophil percentage 4.4 mmol/L 3.5-5.1 [facility] Basophil percentage 110 mmol/L 98-107 [facility] Basophils (Bld) [#/Vol] 8.2 10*3/uL 4.4-11.0 [facility] Basophils (Bld) [#/Vol] 5.3 10*3/uL 2.0-7.7 [facility] Basophils/100 WBC (Bld) 64.6 % 47-70 [facility] Basophils/100 WBC (Bld) 5.0 % 0-5 [facility] Basophils/100 WBC (Bld) 1.1 % 0-1 [facility] Chloride [Moles/Vol] 110 mmol/L 98-107 [facility] Eosinophils/100 WBC (Bld) 5.0 % 0-5 [facility] Glucose [Mass/Vol] 114 mg/dL 74-106 [facility] Comment on above: Fasting Glucose resu lt from 100 to 125 mg/dL suggests IMPAIRED HOMEOSTASIS per A.D.A. criteria. Neutrophils (Bld) [#/Vol] 5.3 10*3/uL 2.0-7.7 [facility] Neutrophils/100 WBC (Bld) 64.6 % 47-70 [facility] Potassium [Moles/Vol] 4.4 mmol/L 3.5-5.1 [facility] Sodium [Moles/Vol] 139 mmol/L 136-145 [facility] WBC (Bld) [#/Vol] 8.2 10*3/uL 4.4-11.0 [facility] Blood erythrocytes count (nu mber/volume)Ordered By: Dr. Wilks on 09-12-2022 RBC (Bld) [#/Vol] 4.36 10*6/uL 4.2-5.4 [facility] Blood hemoglobin measurement (mass/volume)Ordered By: Dr. Wilks on 09-12-2022 Hemoglobin (Bld) [Mass/Vol] 12.0 g/dL 12.0-15.0 [facility] Blood lymphocytes/100 leukoc ytesOrdered By: Dr. Wilks on 09-12-2022 Lymphocytes/100 WBC (Bld) 20.5 % 19-41 [facility] Blood monocytes/100 leukocyt esOrdered By: Dr. Wilks on 09-12-2022 Monocytes/100 WBC (Bld) 8.3 % 0-10 [facility] Blood platelet mean volumeOr dered By: Dr. Wilks on 09-12-2022 Platelet mean volume (Bld) [Entitic vol] 10.7 fL 6.2-12.0 [facility] Determination of erythrocyte mean corpuscular volume (MCV)Ordered By: Dr. Wilks on 09-12-2022 MCV (RBC) [Entitic vol] 90.8 fL 81-99 [facility] Hematocrit Auto (Bld) [Volum e fraction]Ordered By: Dr. Wilks on 09-12-2022 Hematocrit (Bld) [Volume fraction] 39.6 % 37-47 [facility] Laboratory - Chemistry and C hemistry - challengeOrdered By: Dr. Wilks on 09-12-2022 CO2 [Moles/Vol] 25.0 mmol/L 21.0-32.0 [facility] Urea nitrogen/Creatinine [Mass ratio] 29.7 mg/mg 10-20 [facility] Laboratory - Hematology and Cell countsOrdered By: Dr. Wilks on 09-12-2022 Erythrocyte distribution width (RBC) [Entitic vol] 54.4 fL 35.1-43.9 [facility] Erythrocyte distribution width (RBC) [Ratio] 16.3 % 11.6-14.6 [facility] Immature granulocytes/100 WBC (Bld) 0.500 % 0.0-0.9 [facility] Comment on above: IG% - Immature Granu locytes (promyelocytes, myelocytes and metamyelocytes) > 1% indicates that a LEFT SHIFT is Present. MCH (RBC) [Entitic mass] 27.5 pg 27.0-32.0 [facility] Nucleated RBC/100 WBC (Bld) [Ratio] 0 % 0-5 [facility] MCHC Auto (RBC) [Mass/Vol]Or dered By: Dr. Wilks on 09-12-2022 MCHC (RBC) [Mass/Vol] 30.3 g/dL 32-36 [facility] No Panel InformationOrdered By: Dr. Wilks on 09-12-2022 Estimated GFR (MDRD) Amer 98 mL/min >60 [facility] Comment on above: GFR Calc Estimated GFR (MDRD) Non-Af Amer 81 mL/min >60 [facility] Comment on above: Non- GFR Calc 27.5 pg 27.0-32.0 [facility] 16.3 % 11.6-14.6 [facility] 54.4 fl 35.1-43.9 [facility] 0.500 % 0.0-0.9 [facility] 0 % 0-5 [facility] 81 mL/min >60 [facility] 98 mL/min >60 [facility] 29.7 RATIO 10-20 [facility] 25.0 mmol/L 21.0-32.0 [facility] Platelets bldOrdered By: Dr. Wilks on 09-12-2022 Platelets (Bld) [#/Vol] 331 10*3/uL 150-450 [facility] Serum or plasma calcium chay urement (mass/volume)Ordered By: Dr. Wilks on 09-12-2022 Calcium [Mass/Vol] 10.7 mg/dL 8.5-10.1 [facility] Serum or plasma creatinine m easurement (mass/volume)Ordered By: Dr. Wilks on 09-12-2022 Creatinine [Mass/Vol] 0.74 mg/dL 0.55-1.02 [facility] Comment on above: The validity of the calculated GFR & GFRAA in patients over 70 years has not been determined. Clinical correlation is essential. Serum or plasma urea nitroge n measurement (mass/volume)Ordered By: Dr. Wilks on 09-12-2022 Urea nitrogen [Mass/Vol] 22 mg/dL 7-18 [facility] Thin prep Papanicolaou smear with manual screeningOrdered By: Dr. Wilks on 09-12-2022 Thin prep Papanicolaou smear with manual screening 4 5-15 [facility] Absolute lymphocyte countOrd ered By: Dr. Wilks on 09-05-2022 Lymphocytes Auto (Unsp spec) [#/Vol] 1.29 10*3/uL 0.83-4.51 [facility] Basophil percentageOrdered B y: Dr. Wilks on 09-05-2022 Basophil percentage 92 mg/dL 74-106 [facility] Basophil percentage 139 mmol/L 136-145 [facility] Basophil percentage 4.1 mmol/L 3.5-5.1 [facility] Basophil percentage 106 mmol/L 98-107 [facility] Basophils (Bld) [#/Vol] 7.3 10*3/uL 4.4-11.0 [facility] Basophils (Bld) [#/Vol] 4.9 10*3/uL 2.0-7.7 [facility] Basophils/100 WBC (Bld) 1.0 % 0-1 [facility] Basophils/100 WBC (Bld) 67.1 % 47-70 [facility] Basophils/100 WBC (Bld) 4.9 % 0-5 [facility] Chloride [Moles/Vol] 106 mmol/L 98-107 [facility] Eosinophils/100 WBC (Bld) 4.9 % 0-5 [facility] Glucose [Mass/Vol] 92 mg/dL 74-106 [facility] Neutrophils (Bld) [#/Vol] 4.9 10*3/uL 2.0-7.7 [facility] Neutrophils/100 WBC (Bld) 67.1 % 47-70 [facility] Potassium [Moles/Vol] 4.1 mmol/L 3.5-5.1 [facility] Sodium [Moles/Vol] 139 mmol/L 136-145 [facility] WBC (Bld) [#/Vol] 7.3 10*3/uL 4.4-11.0 [facility] Blood erythrocytes count (nu mber/volume)Ordered By: Dr. Wilks on 09-05-2022 RBC (Bld) [#/Vol] 4.37 10*6/uL 4.2-5.4 [facility] Blood hemoglobin measurement (mass/volume)Ordered By: Dr. Wilks on 01-10-2023 Hemoglobin (Bld) [Mass/Vol] 12.4 g/dL 12.0-15.0 [facility] Blood lymphocytes/100 leukoc ytesOrdered By: Dr. Wilks on 09-05-2022 Lymphocytes/100 WBC (Bld) 17.6 % 19-41 [facility] Blood monocytes/100 leukocyt esOrdered By: Dr. Wilks on 09-05-2022 Monocytes/100 WBC (Bld) 9.0 % 0-10 [facility] Blood platelet mean volumeOr dered By: Dr. Wilks on 09-05-2022 Platelet mean volume (Bld) [Entitic vol] 10.3 fL 6.2-12.0 [facility] Determination of erythrocyte mean corpuscular volume (MCV)Ordered By: Dr. Wilks on 09-05-2022 MCV (RBC) [Entitic vol] 90.4 fL 81-99 [facility] Hematocrit Auto (Bld) [Volum e fraction]Ordered By: Dr. Wilks on 09-05-2022 Hematocrit (Bld) [Volume fraction] 39.5 % 37-47 [facility] Laboratory - Chemistry and C hemistry - challengeOrdered By: Dr. Wilks on 09-05-2022 CO2 [Moles/Vol] 27.0 mmol/L 21.0-32.0 [facility] Urea nitrogen/Creatinine [Mass ratio] 27.4 mg/mg 10-20 [facility] Laboratory - Hematology and Cell countsOrdered By: Dr. Wilks on 09-05-2022 Erythrocyte distribution width (RBC) [Entitic vol] 53.8 fL 35.1-43.9 [facility] Erythrocyte distribution width (RBC) [Ratio] 16.1 % 11.6-14.6 [facility] Immature granulocytes/100 WBC (Bld) 0.400 % 0.0-0.9 [facility] Comment on above: IG% - Immature Granu locytes (promyelocytes, myelocytes and metamyelocytes) > 1% indicates that a LEFT SHIFT is Present. MCH (RBC) [Entitic mass] 28.4 pg 27.0-32.0 [facility] Nucleated RBC/100 WBC (Bld) [Ratio] 0 % 0-[facility] ([facility]BC) [Mass/Vol]Or dered By: Dr. Wilks on 09-05-2022 MCHC (RBC) [Mass/Vol] 31.4 g/dL 32-36 [facility] No Panel InformationOrdered By: Dr. Wilks on 09-05-2022 Estimated GFR (MDRD) Amer 81 mL/min >60 [facility] Comment on above: GFR Calc Estimated GFR (MDRD) Non-Af Amer 67 mL/min >60 [facility] Comment on above: Non- GFR Calc 28.4 pg 27.0-32.0 [facility] 16.1 % 11.6-14.6 [facility] 53.8 fl 35.1-43.9 [facility] 0.400 % 0.0-0.9 [facility] 0 % 0-5 [facility] 67 mL/min >60 [facility] 81 mL/min >60 [facility] 27.4 RATIO 10-20 [facility] 27.0 mmol/L 21.0-32.0 [facility] Platelets bldOrdered By: Dr. Wilks on 09-05-2022 Platelets (Bld) [#/Vol] 357 10*3/uL 150-450 [facility] Serum or plasma calcium chay urement (mass/volume)Ordered By: Dr. Wilks on 09-05-2022 Calcium [Mass/Vol] 11.1 mg/dL 8.5-10.1 [facility] Serum or plasma creatinine m easurement (mass/volume)Ordered By: Dr. Wilks on 09-05-2022 Creatinine [Mass/Vol] 0.88 mg/dL 0.55-1.02 [facility] Comment on above: The validity of the calculated GFR & GFRAA in patients over 70 years has not been determined. Clinical correlation is essential. Serum or plasma urea nitroge n measurement (mass/volume)Ordered By: Dr. Wilks on 09-05-2022 Urea nitrogen [Mass/Vol] 24 mg/dL 7-18 [facility] Thin prep Papanicolaou smear with manual screeningOrdered By: Dr. Wilks on 09-05-2022 Thin prep Papanicolaou smear with manual screening 6 5-15 [facility] Absolute lymphocyte countOrd ered By: Dr. Wilks on 08-29-2022 Lymphocytes Auto (Unsp spec) [#/Vol] 1.18 10*3/uL 0.83-4.51 [facility] Basophil percentageOrdered B y: Dr. Wilks on 08-29-2022 Basophil percentage 101 mg/dL 74-106 [facility] Basophil percentage 140 mmol/L 136-145 [facility] Basophil percentage 4.1 mmol/L 3.5-5.1 [facility] Basophil percentage 107 mmol/L 98-107 [facility] Basophils (Bld) [#/Vol] 6.7 10*3/uL 4.4-11.0 [facility] Basophils (Bld) [#/Vol] 4.3 10*3/uL 2.0-7.7 [facility] Basophils/100 WBC (Bld) 0.9 % 0-1 [facility] Basophils/100 WBC (Bld) 64.3 % 47-70 [facility] Basophils/100 WBC (Bld) 4.8 % 0-5 [facility] Chloride [Moles/Vol] 107 mmol/L 98-107 [facility] Eosinophils/100 WBC (Bld) 4.8 % 0-5 [facility] Glucose [Mass/Vol] 101 mg/dL 74-106 [facility] Comment on above: Fasting Glucose resu lt from 100 to 125 mg/dL suggests IMPAIRED HOMEOSTASIS per A.D.A. criteria. Neutrophils (Bld) [#/Vol] 4.3 10*3/uL 2.0-7.7 [facility] Neutrophils/100 WBC (Bld) 64.3 % 47-70 [facility] Potassium [Moles/Vol] 4.1 mmol/L 3.5-5.1 [facility] Sodium [Moles/Vol] 140 mmol/L 136-145 [facility] WBC (Bld) [#/Vol] 6.7 10*3/uL 4.4-11.0 [facility] Blood erythrocytes count (nu mber/volume)Ordered By: Dr. Wilks on 08-29-2022 RBC (Bld) [#/Vol] 4.08 10*6/uL 4.2-5.4 [facility] Blood hemoglobin measurement (mass/volume)Ordered By: Dr. Wilks on 08-29-2022 Hemoglobin (Bld) [Mass/Vol] 11.6 g/dL 12.0-15.0 [facility] Blood lymphocytes/100 leukoc ytesOrdered By: Dr. Wilks on 08-29-2022 Lymphocytes/100 WBC (Bld) 17.6 % 19-41 [facility] Blood monocytes/100 leukocyt esOrdered By: Dr. Wilks on 08-29-2022 Monocytes/100 WBC (Bld) 10.8 % 0-10 [facility] Blood platelet mean volumeOr dered By: Dr. Wilks on 08-29-2022 Platelet mean volume (Bld) [Entitic vol] 10.6 fL 6.2-12.0 [facility] Determination of erythrocyte mean corpuscular volume (MCV)Ordered By: Dr. Wilks on 08-29-2022 MCV (RBC) [Entitic vol] 91.4 fL 81-99 [facility] Hematocrit Auto (Bld) [Volum e fraction]Ordered By: Dr. Wilks on 08-29-2022 Hematocrit (Bld) [Volume fraction] 37.3 % 37-47 [facility] Laboratory - Chemistry and C hemistry - challengeOrdered By: Dr. Wilks on 08-29-2022 CO2 [Moles/Vol] 25.0 mmol/L 21.0-32.0 [facility] Urea nitrogen/Creatinine [Mass ratio] 19.1 mg/mg 10-20 [facility] Laboratory - Hematology and Cell countsOrdered By: Dr. Wilks on 08-29-2022 Erythrocyte distribution width (RBC) [Entitic vol] 55.7 fL 35.1-43.9 [facility] Erythrocyte distribution width (RBC) [Ratio] 16.4 % 11.6-14.6 [facility] Immature granulocytes/100 WBC (Bld) 1.600 % 0.0-0.9 [facility] Comment on above: IG% - Immature Granu locytes (promyelocytes, myelocytes and metamyelocytes) > 1% indicates that a LEFT SHIFT is Present. MCH (RBC) [Entitic mass] 28.4 pg 27.0-32.0 [facility] Nucleated RBC/100 WBC (Bld) [Ratio] 0 % 0-5 [facility] MCHC Auto (RBC) [Mass/Vol]Or dered By: Dr. Wilks on 08-29-2022 MCHC (RBC) [Mass/Vol] 31.1 g/dL 32-36 [facility] No Panel InformationOrdered By: Dr. Wilks on 08-29-2022 Estimated GFR (MDRD) Amer 108 mL/min >60 [facility] Comment on above: GFR Calc Estimated GFR (MDRD) Non-Af Amer 90 mL/min >60 [facility] Comment on above: Non- GFR Calc 28.4 pg 27.0-32.0 [facility] 16.4 % 11.6-14.6 [facility] 55.7 fl 35.1-43.9 [facility] 1.600 % 0.0-0.9 [facility] 0 % 0-5 [facility] 90 mL/min >60 [facility] 108 mL/min >60 [facility] 19.1 RATIO 10-20 [facility] [facility] 25.0 mmol/L 21.0-32.0 [facility] Platelets bldOrdered By: Dr. Wilks on 08-29-2022 Platelets (Bld) [#/Vol] 331 10*3/uL 150-450 [facility] Serum or plasma calcium chay urement (mass/volume)Ordered By: Dr. Wilks on 08-29-2022 Calcium [Mass/Vol] 10.3 mg/dL 8.5-10.1 [facility] Serum or plasma creatinine m easurement (mass/volume)Ordered By: Dr. Wilks on 08-29-2022 Creatinine [Mass/Vol] 0.68 mg/dL 0.55-1.02 [facility] Comment on above: The validity of the calculated GFR & GFRAA in patients over 70 years has not been determined. Clinical correlation is essential. Serum or plasma urea nitroge n measurement (mass/volume)Ordered By: Dr. Wilks on 08-29-2022 Urea nitrogen [Mass/Vol] 13 mg/dL 7-18 [facility] Thin prep Papanicolaou smear with manual screeningOrdered By: Dr. Wilks on 08-29-2022 Thin prep Papanicolaou smear with manual screening 8 5-15 [facility] Absolute lymphocyte countOrd ered By: Dr. Wilks on 08-22-2022 Lymphocytes Auto (Unsp spec) [#/Vol] 1.23 10*3/uL 0.83-4.51 [facility] Basophil percentageOrdered B y: Dr. Wilks on 08-22-2022 Basophil percentage 95 mg/dL 74-106 [facility] Basophil percentage 140 mmol/L 136-145 [facility] Basophil percentage 4.2 mmol/L 3.5-5.1 [facility] Basophil percentage 110 mmol/L 98-107 [facility] Basophils (Bld) [#/Vol] 6.5 10*3/uL 4.4-11.0 [facility] Basophils (Bld) [#/Vol] 4.2 10*3/uL 2.0-7.7 [facility] Basophils/100 WBC (Bld) 1.1 % 0-1 [facility] Basophils/100 WBC (Bld) 65.1 % 47-70 [facility] Basophils/100 WBC (Bld) 5.6 % 0-5 [facility] Chloride [Moles/Vol] 110 mmol/L 98-107 [facility] Eosinophils/100 WBC (Bld) 5.6 % 0-5 [facility] Glucose [Mass/Vol] 95 mg/dL 74-106 [facility] Neutrophils (Bld) [#/Vol] 4.2 10*3/uL 2.0-7.7 [facility] Neutrophils/100 WBC (Bld) 65.1 % 47-70 [facility] Potassium [Moles/Vol] 4.2 mmol/L 3.5-5.1 [facility] Sodium [Moles/Vol] 140 mmol/L 136-145 [facility] WBC (Bld) [#/Vol] 6.5 10*3/uL 4.4-11.0 [facility] Blood erythrocytes count (nu mber/volume)Ordered By: Dr. Wilks on 08-22-2022 RBC (Bld) [#/Vol] 4.19 10*6/uL 4.2-5.4 [facility] Blood hemoglobin measurement (mass/volume)Ordered By: Dr. Wilks on 08-22-2022 Hemoglobin (Bld) [Mass/Vol] 12.0 g/dL 12.0-15.0 [facility] Blood lymphocytes/100 leukoc ytesOrdered By: Dr. Wilks on 08-22-2022 Lymphocytes/100 WBC (Bld) 19.0 % 19-41 [facility] Blood monocytes/100 leukocyt esOrdered By: Dr. Wilks on 08-22-2022 Monocytes/100 WBC (Bld) 8.7 % 0-10 [facility] Blood platelet mean volumeOr dered By: Dr. Wilks on 08-22-2022 Platelet mean volume (Bld) [Entitic vol] 10.5 fL 6.2-12.0 [facility] Determination of erythrocyte mean corpuscular volume (MCV)Ordered By: Dr. Wilks on 08-22-2022 MCV (RBC) [Entitic vol] 92.8 fL 81-99 [facility] Hematocrit Auto (Bld) [Volum e fraction]Ordered By: Dr. Wilks on 08-22-2022 Hematocrit (Bld) [Volume fraction] 38.9 % 37-47 [facility] Laboratory - Chemistry and C hemistry - challengeOrdered By: Dr. Wilks on 08-22-2022 CO2 [Moles/Vol] 26.0 mmol/L 21.0-32.0 [facility] Urea nitrogen/Creatinine [Mass ratio] 22.2 mg/mg 10-20 [facility] Laboratory - Hematology and Cell countsOrdered By: Dr. Wilks on 08-22-2022 Erythrocyte distribution width (RBC) [Entitic vol] 56.8 fL 35.1-43.9 [facility] Erythrocyte distribution width (RBC) [Ratio] 16.5 % 11.6-14.6 [facility] Immature granulocytes/100 WBC (Bld) 0.500 % 0.0-0.9 [facility] Comment on above: IG% - Immature Granu locytes (promyelocytes, myelocytes and metamyelocytes) > 1% indicates that a LEFT SHIFT is Present. MCH (RBC) [Entitic mass] 28.6 pg 27.0-32.0 [facility] Nucleated RBC/100 WBC (Bld) [Ratio] 0 % 0-5 [facility] MCHC Auto (RBC) [Mass/Vol]Or dered By: Dr. Wilks on 08-22-2022 MCHC (RBC) [Mass/Vol] 30.8 g/dL 32-36 [facility] No Panel InformationOrdered By: Dr. Wilks on 08-22-2022 Estimated GFR (MDRD) Amer 101 mL/min >60 [facility] Comment on above: GFR Calc Estimated GFR (MDRD) Non-Af Amer 84 mL/min >60 [facility] Comment on above: Non- GFR Calc 28.6 pg 27.0-32.0 [facility] 16.5 % 11.6-14.6 [facility] 56.8 fl 35.1-43.9 [facility] 0.500 % 0.0-0.9 [facility] 0 % 0-5 [facility] 84 mL/min >60 [facility] 101 mL/min >60 [facility] 22.2 RATIO 10-20 [facility] 26.0 mmol/L 21.0-32.0 [facility] Platelets bldOrdered By: Dr. Wilks on 08-22-2022 Platelets (Bld) [#/Vol] 331 10*3/uL 150-450 [facility] Serum or plasma calcium chay urement (mass/volume)Ordered By: Dr. Wilks on 08-22-2022 Calcium [Mass/Vol] 10.9 mg/dL 8.5-10.1 [facility] Serum or plasma creatinine m easurement (mass/volume)Ordered By: Dr. Wilks on 08-22-2022 Creatinine [Mass/Vol] 0.72 mg/dL 0.55-1.02 [facility] Comment on above: The validity of the calculated GFR & GFRAA in patients over 70 years has not been determined. Clinical correlation is essential. Serum or plasma urea nitroge n measurement (mass/volume)Ordered By: Dr. Wilks on 08-22-2022 Urea nitrogen [Mass/Vol] 16 mg/dL 7-18 [facility] Thin prep Papanicolaou smear with manual screeningOrdered By: Dr. Wilks on 08-22-2022 Thin prep Papanicolaou smear with manual screening 4 5-15 [facility] Absolute lymphocyte countOrd ered By: Dr. Wilks on 08-15-2022 Lymphocytes Auto (Unsp spec) [#/Vol] 1.15 10*3/uL 0.83-4.51 [facility] Basophil percentageOrdered B y: Dr. Wilks on 08-15-2022 Basophil percentage 103 mg/dL 74-106 [facility] Basophil percentage 140 mmol/L 136-145 [facility] Basophil percentage 4.4 mmol/L 3.5-5.1 [facility] Basophil percentage 109 mmol/L 98-107 [facility] Basophils (Bld) [#/Vol] 8.2 10*3/uL 4.4-11.0 [facility] Basophils (Bld) [#/Vol] 5.9 10*3/uL 2.0-7.7 [facility] Basophils/100 WBC (Bld) 0.9 % 0-1 [facility] Basophils/100 WBC (Bld) 72.1 % 47-70 [facility] Basophils/100 WBC (Bld) 4.3 % 0-5 [facility] Chloride [Moles/Vol] 109 mmol/L 98-107 [facility] Eosinophils/100 WBC (Bld) 4.3 % 0-5 [facility] Glucose [Mass/Vol] 103 mg/dL 74-106 [facility] Comment on above: Fasting Glucose resu lt from 100 to 125 mg/dL suggests IMPAIRED HOMEOSTASIS per A.D.A. criteria. Neutrophils (Bld) [#/Vol] 5.9 10*3/uL 2.0-7.7 [facility] Neutrophils/100 WBC (Bld) 72.1 % 47-70 [facility] Potassium [Moles/Vol] 4.4 mmol/L 3.5-5.1 [facility] Sodium [Moles/Vol] 140 mmol/L 136-145 [facility] WBC (Bld) [#/Vol] 8.2 10*3/uL 4.4-11.0 [facility] Blood erythrocytes count (nu mber/volume)Ordered By: Dr. Wilks on 08-15-2022 RBC (Bld) [#/Vol] 3.99 10*6/uL 4.2-5.4 [facility] Blood hemoglobin measurement (mass/volume)Ordered By: Dr. Wilks on 08-15-2022 Hemoglobin (Bld) [Mass/Vol] 11.5 g/dL 12.0-15.0 [facility] Blood lymphocytes/100 leukoc ytesOrdered By: Dr. Wilks on 08-15-2022 Lymphocytes/100 WBC (Bld) 14.1 % 19-41 [facility] Blood monocytes/100 leukocyt esOrdered By: Dr. Wilks on 08-15-2022 Monocytes/100 WBC (Bld) 8.4 % 0-10 [facility] Blood platelet mean volumeOr dered By: Dr. Wilks on 08-15-2022 Platelet mean volume (Bld) [Entitic vol] 10.5 fL 6.2-12.0 [facility] Determination of erythrocyte mean corpuscular volume (MCV)Ordered By: Dr. Wilks on 08-15-2022 MCV (RBC) [Entitic vol] 95.0 fL 81-99 [facility] Hematocrit Auto (Bld) [Volum e fraction]Ordered By: Dr. Wilks on 08-15-2022 Hematocrit (Bld) [Volume fraction] 37.9 % 37-47 [facility] Laboratory - Chemistry and C hemistry - challengeOrdered By: Dr. Wilks on 08-15-2022 CO2 [Moles/Vol] 28.0 mmol/L 21.0-32.0 [facility] Urea nitrogen/Creatinine [Mass ratio] 25.9 mg/mg 10 [facility] Laboratory - Hematology and Cell countsOrdered By: Dr. Wilks on 08-15-2022 Erythrocyte distribution width (RBC) [Entitic vol] 58.8 fL 35.1-43.9 [facility] Erythrocyte distribution width (RBC) [Ratio] 16.8 % 11.6-14.6 [facility] Immature granulocytes/100 WBC (Bld) 0.200 % 0.0-0.9 [facility] Comment on above: IG% - Immature Granu locytes (promyelocytes, myelocytes and metamyelocytes) > 1% indicates that a LEFT SHIFT is Present. MCH (RBC) [Entitic mass] 28.8 pg 27.0-32.0 [facility] Nucleated RBC/100 WBC (Bld) [Ratio] 0 % 0-5 [facility] MCHC Auto (RBC) [Mass/Vol]Or dered By: Dr. Wilks on 08-15-2022 MCHC (RBC) [Mass/Vol] 30.3 g/dL 32-36 [facility] No Panel InformationOrdered By: Dr. Wilks on 08-15-2022 Estimated GFR (MDRD) Amer 99 mL/min >60 [facility] Comment on above: GFR Calc Estimated GFR (MDRD) Non-Af Amer 82 mL/min >60 [facility] Comment on above: Non- GFR Calc 28.8 pg 27.0-32.0 [facility] 16.8 % 11.6-14.6 [facility] 58.8 fl 35.1-43.9 [facility] 0.200 % 0.0-0.9 [facility] 0 % 0-5 [facility] 82 mL/min >60 [facility] 99 mL/min >60 [facility] 25.9 RATIO 10-20 [facility] 28.0 mmol/L 21.0-32.0 [facility] Platelets bldOrdered By: Dr. Wilks on 08-15-2022 Platelets (Bld) [#/Vol] 282 10*3/uL 150-450 [facility] Serum or plasma calcium chay urement (mass/volume)Ordered By: Dr. Wilks on 08-15-2022 Calcium [Mass/Vol] 11.0 mg/dL 8.5-10.1 [facility] Serum or plasma creatinine m easurement (mass/volume)Ordered By: Dr. Wilks on 08-15-2022 Creatinine [Mass/Vol] 0.73 mg/dL 0.55-1.02 [facility] Comment on above: The validity of the calculated GFR & GFRAA in patients over 70 years has not been determined. Clinical correlation is essential. Serum or plasma urea nitroge n measurement (mass/volume)Ordered By: Dr. Wilks on 08-15-2022 Urea nitrogen [Mass/Vol] 19 mg/dL 7-18 [facility] Thin prep Papanicolaou smear with manual screeningOrdered By: Dr. Wilks on 08-15-2022 Thin prep Papanicolaou smear with manual screening 3 5-15 [facility] Absolute lymphocyte countOrd ered By: Dr. Wilks on 08-08-2022 Lymphocytes Auto (Unsp spec) [#/Vol] 1.54 10*3/uL 0.83-4.51 [facility] Basophil percentageOrdered B y: Dr. Wilks on 08-08-2022 Basophil percentage 112 mg/dL 74-106 [facility] Basophil percentage 140 mmol/L 136-145 [facility] Basophil percentage 4.3 mmol/L 3.5-5.1 [facility] Basophil percentage 109 mmol/L 98-107 [facility] Basophils (Bld) [#/Vol] 8.5 10*3/uL 4.4-11.0 [facility] Basophils (Bld) [#/Vol] 5.8 10*3/uL 2.0-7.7 [facility] Basophils/100 WBC (Bld) 1.1 % 0-1 [facility] Basophils/100 WBC (Bld) 67.9 % 47-70 [facility] Basophils/100 WBC (Bld) 4.5 % 0-5 [facility] Chloride [Moles/Vol] 109 mmol/L 98-107 [facility] Eosinophils/100 WBC (Bld) 4.5 % 0-5 [facility] Glucose [Mass/Vol] 112 mg/dL 74-106 [facility] Comment on above: Fasting Glucose resu lt from 100 to 125 mg/dL suggests IMPAIRED HOMEOSTASIS per A.D.A. criteria. Neutrophils (Bld) [#/Vol] 5.8 10*3/uL 2.0-7.7 [facility] Neutrophils/100 WBC (Bld) 67.9 % 47-70 [facility] Potassium [Moles/Vol] 4.3 mmol/L 3.5-5.1 [facility] Sodium [Moles/Vol] 140 mmol/L 136-145 [facility] WBC (Bld) [#/Vol] 8.5 10*3/uL 4.4-11.0 [facility] Blood erythrocytes count (nu mber/volume)Ordered By: Dr. Wilks on 08-08-2022 RBC (Bld) [#/Vol] 4.26 10*6/uL 4.2-5.4 [facility] Blood hemoglobin measurement (mass/volume)Ordered By: Dr. Wilks on 08-08-2022 Hemoglobin (Bld) [Mass/Vol] 12.3 g/dL 12.0-15.0 [facility] Blood lymphocytes/100 leukoc ytesOrdered By: Dr. Wilks on 08-08-2022 Lymphocytes/100 WBC (Bld) 18.1 % 19-41 [facility] Blood monocytes/100 leukocyt esOrdered By: Dr. Wilks on 08-08-2022 Monocytes/100 WBC (Bld) 8.2 % 0-10 [facility] Blood platelet mean volumeOr dered By: Dr. Wilks on 08-08-2022 Platelet mean volume (Bld) [Entitic vol] 10.7 fL 6.2-12.0 [facility] Determination of erythrocyte mean corpuscular volume (MCV)Ordered By: Dr. Wilks on 08-08-2022 MCV (RBC) [Entitic vol] 92.3 fL 81-99 [facility] Hematocrit Auto (Bld) [Volum e fraction]Ordered By: Dr. Wilks on 08-08-2022 Hematocrit (Bld) [Volume fraction] 39.3 % 37-47 [facility] Laboratory - Chemistry and C hemistry - challengeOrdered By: Dr. Wilks on 08-08-2022 CO2 [Moles/Vol] 24.0 mmol/L 21.0-32.0 [facility] Urea nitrogen/Creatinine [Mass ratio] 20.1 mg/mg 10-20 [facility] Laboratory - Hematology and Cell countsOrdered By: Dr. Wilks on 08-08-2022 Erythrocyte distribution width (RBC) [Entitic vol] 57.2 fL 35.1-43.9 [facility] Erythrocyte distribution width (RBC) [Ratio] 17.0 % 11.6-14.6 [facility] Immature granulocytes/100 WBC (Bld) 0.200 % 0.0-0.9 [facility] Comment on above: IG% - Immature Granu locytes (promyelocytes, myelocytes and metamyelocytes) > 1% indicates that a LEFT SHIFT is Present. MCH (RBC) [Entitic mass] 28.9 pg 27.0-32.0 [facility] Nucleated RBC/100 WBC (Bld) [Ratio] 0 % 0-5 [facility] MCHC Auto (RBC) [Mass/Vol]Or dered By: Dr. Wilks on 08-08-2022 MCHC (RBC) [Mass/Vol] 31.3 g/dL 32-36 [facility] No Panel InformationOrdered By: Dr. Wilks on 08-08-2022 Estimated GFR (MDRD) Amer 79 mL/min >60 [facility] Comment on above: GFR Calc Estimated GFR (MDRD) Non-Af Amer 65 mL/min >60 [facility] Comment on above: Non- GFR Calc 28.9 pg 27.0-32.0 [facility] 17.0 % 11.6-14.6 [facility] 57.2 fl 35.1-43.9 [facility] 0.200 % 0.0-0.9 [facility] 0 % 0-5 [facility] 65 mL/min >60 [facility] 79 mL/min >60 [facility] 20.1 RATIO 10-20 [facility] 24.0 mmol/L 21.0-32.0 [facility] Platelets bldOrdered By: Dr. Wilks on 08-08-2022 Platelets (Bld) [#/Vol] 334 10*3/uL 150-450 [facility] Serum or plasma calcium chay urement (mass/volume)Ordered By: Dr. Wilks on 08-08-2022 Calcium [Mass/Vol] 11.5 mg/dL 8.5-10.1 [facility] Serum or plasma creatinine m easurement (mass/volume)Ordered By: Dr. Wilks on 08-08-2022 Creatinine [Mass/Vol] 0.90 mg/dL 0.55-1.02 [facility] Comment on above: The validity of the calculated GFR & GFRAA in patients over 70 years has not been determined. Clinical correlation is essential. Serum or plasma urea nitroge n measurement (mass/volume)Ordered By: Dr. Wilks on 08-08-2022 Urea nitrogen [Mass/Vol] 18 mg/dL 7-18 [facility] Thin prep Papanicolaou smear with manual screeningOrdered By: Dr. Wilks on 08-08-2022 Thin prep Papanicolaou smear with manual screening 7 5-15 [facility] Absolute lymphocyte countOrd ered By: Dr. Wilks on 08-01-2022 Lymphocytes Auto (Unsp spec) [#/Vol] 0.96 10*3/uL 0.83-4.51 [facility] Basophil percentageOrdered B y: Dr. Wilks on 08-01-2022 Basophil percentage 108 mg/dL 74-106 [facility] Basophil percentage 138 mmol/L 136-145 [facility] Basophil percentage 4.1 mmol/L 3.5-5.1 [facility] Basophil percentage 107 mmol/L 98-107 [facility] Basophils (Bld) [#/Vol] 7.3 10*3/uL 4.4-11.0 [facility] Basophils (Bld) [#/Vol] 5.2 10*3/uL 2.0-7.7 [facility] Basophils/100 WBC (Bld) 1.0 % 0-1 [facility] Basophils/100 WBC (Bld) 71.4 % 47-70 [facility] Basophils/100 WBC (Bld) 5.2 % 0-5 [facility] Chloride [Moles/Vol] 107 mmol/L 98-107 [facility] Eosinophils/100 WBC (Bld) 5.2 % 0-5 [facility] Glucose [Mass/Vol] 108 mg/dL 74-106 [facility] Comment on above: Fasting Glucose resu lt from 100 to 125 mg/dL suggests IMPAIRED HOMEOSTASIS per A.D.A. criteria. Neutrophils (Bld) [#/Vol] 5.2 10*3/uL 2.0-7.7 [facility] Neutrophils/100 WBC (Bld) 71.4 % 47-70 [facility] Potassium [Moles/Vol] 4.1 mmol/L 3.5-5.1 [facility] Sodium [Moles/Vol] 138 mmol/L 136-145 [facility] WBC (Bld) [#/Vol] 7.3 10*3/uL 4.4-11.0 [facility] Blood erythrocytes count (nu mber/volume)Ordered By: Dr. Wilks on 08-01-2022 RBC (Bld) [#/Vol] 3.94 10*6/uL 4.2-5.4 [facility] Blood hemoglobin measurement (mass/volume)Ordered By: Dr. Wilks on 08-01-2022 Hemoglobin (Bld) [Mass/Vol] 11.3 g/dL 12.0-15.0 [facility] Blood lymphocytes/100 leukoc ytesOrdered By: Dr. Wilks on 08-01-2022 Lymphocytes/100 WBC (Bld) 13.2 % 19-41 [facility] Blood monocytes/100 leukocyt esOrdered By: Dr. Wilks on 08-01-2022 Monocytes/100 WBC (Bld) 8.8 % 0-10 [facility] Blood platelet mean volumeOr dered By: Dr. Wilks on 08-01-2022 Platelet mean volume (Bld) [Entitic vol] 10.9 fL 6.2-12.0 [facility] Determination of erythrocyte mean corpuscular volume (MCV)Ordered By: Dr. Wilks on 08-01-2022 MCV (RBC) [Entitic vol] 92.9 fL 81-99 [facility] Hematocrit Auto (Bld) [Volum e fraction]Ordered By: Dr. Wilks on 08-01-2022 Hematocrit (Bld) [Volume fraction] 36.6 % 37-47 [facility] Laboratory - Chemistry and C hemistry - challengeOrdered By: Dr. Wilks on 08-01-2022 CO2 [Moles/Vol] 26.0 mmol/L 21.0-32.0 [facility] Urea nitrogen/Creatinine [Mass ratio] 25.4 mg/mg 10-20 [facility] Laboratory - Hematology and Cell countsOrdered By: Dr. Wilks on 08-01-2022 Erythrocyte distribution width (RBC) [Entitic vol] 56.8 fL 35.1-43.9 [facility] Erythrocyte distribution width (RBC) [Ratio] 16.6 % 11.6-14.6 [facility] Immature granulocytes/100 WBC (Bld) 0.400 % 0.0-0.9 [facility] Comment on above: IG% - Immature Granu locytes (promyelocytes, myelocytes and metamyelocytes) > 1% indicates that a LEFT SHIFT is Present. MCH (RBC) [Entitic mass] 28.7 pg 27.0-32.0 [facility] Nucleated RBC/100 WBC (Bld) [Ratio] 0 % 0-5 [facility] MCHC Auto (RBC) [Mass/Vol]Or dered By: Dr. Wilks on 08-01-2022 MCHC (RBC) [Mass/Vol] 30.9 g/dL 32-36 [facility] No Panel InformationOrdered By: Dr. Wilks on 08-01-2022 Estimated GFR (MDRD) Amer 78 mL/min >60 [facility] Comment on above: GFR Calc Estimated GFR (MDRD) Non-Af Amer 65 mL/min >60 [facility] Comment on above: Non- GFR Calc 28.7 pg 27.0-32.0 [facility] 16.6 % 11.6-14.6 [facility] 56.8 fl 35.1-43.9 [facility] 0.400 % 0.0-0.9 [facility] 0 % 0-5 [facility] 65 mL/min >60 [facility] 78 mL/min >60 [facility] 25.4 RATIO 10-20 [facility] 26.0 mmol/L 21.0-32.0 [facility] Platelets bldOrdered By: Dr. Wilks on 08-01-2022 Platelets (Bld) [#/Vol] 313 10*3/uL 150-450 [facility] Serum or plasma calcium chay urement (mass/volume)Ordered By: Dr. Wilks on 08-01-2022 Calcium [Mass/Vol] 10.9 mg/dL 8.5-10.1 [facility] Serum or plasma creatinine m easurement (mass/volume)Ordered By: Dr. Wilks on 08-01-2022 Creatinine [Mass/Vol] 0.90 mg/dL 0.55-1.02 [facility] Comment on above: The validity of the calculated GFR & GFRAA in patients over 70 years has not been determined. Clinical correlation is essential. Serum or plasma urea nitroge n measurement (mass/volume)Ordered By: Dr. Wilks on 08-01-2022 Urea nitrogen [Mass/Vol] 23 mg/dL 7-18 [facility] Thin prep Papanicolaou smear with manual screeningOrdered By: Dr. Wilks on 08-01-2022 Thin prep Papanicolaou smear with manual screening 5 5-15 [facility] Absolute lymphocyte countOrd ered By: Dr. Wilks on 07-25-2022 Lymphocytes Auto (Unsp spec) [#/Vol] 1.60 10*3/uL 0.83-4.51 [facility] Basophil percentageOrdered B y: Dr. Wilks on 07-25-2022 Basophil percentage 105 mg/dL 74-106 [facility] Basophil percentage 139 mmol/L 136-145 [facility] Basophil percentage 4.1 mmol/L 3.5-5.1 [facility] Basophil percentage 107 mmol/L 98-107 [facility] Basophils (Bld) [#/Vol] 8.1 10*3/uL 4.4-11.0 [facility] Basophils (Bld) [#/Vol] 5.1 10*3/uL 2.0-7.7 [facility] Basophils/100 WBC (Bld) 1.0 % 0-1 [facility] Basophils/100 WBC (Bld) 62.0 % 47-70 [facility] Basophils/100 WBC (Bld) 6.9 % 0-5 [facility] Basophil percentageon 2021 Chloride [Moles/Vol] 107 mmol/L 98-107 [facility] Work Phone: Eosinophils/100 WBC (Bld) 6.9 % 0-5 [facility] Work Phone: Glucose [Mass/Vol] 105 mg/dL 74-106 [facility] Work Phone: Comment on above: Fasting Glucose resu lt from 100 to 125 mg/dL suggests IMPAIRED HOMEOSTASIS per A.D.A. criteria. Neutrophils (Bld) [#/Vol] 5.1 10*3/uL 2.0-7.7 [facility] Work Phone: Neutrophils/100 WBC (Bld) 62.0 % 47-70 [facility] Work Phone: Potassium [Moles/Vol] 4.1 mmol/L 3.5-5.1 [facility] Work Phone: Sodium [Moles/Vol] 139 mmol/L 136-145 [facility] Work Phone: WBC (Bld) [#/Vol] 8.1 10*3/uL 4.4-11.0 [facility] Work Phone: Blood erythrocytes count (nu mber/volume)Ordered By: Dr. Wilks on 07-25-2022 RBC (Bld) [#/Vol] 4.01 10*6/uL 4.2-5.4 [facility] Blood hemoglobin measurement (mass/volume)Ordered By: Dr. Wilks on 07-25-2022 Hemoglobin (Bld) [Mass/Vol] 11.8 g/dL 12.0-15.0 [facility] Blood lymphocytes/100 leukoc ytesOrdered By: Dr. Wilks on 07-25-2022 Lymphocytes/100 WBC (Bld) 19.7 % 19-41 [facility] Blood monocytes/100 leukocyt esOrdered By: Dr. Wilks on 07-25-2022 Monocytes/100 WBC (Bld) 10.0 % 0-10 [facility] Blood platelet mean volumeOr dered By: Dr. Wilks on 07-25-2022 Platelet mean volume (Bld) [Entitic vol] 10.5 fL 6.2-12.0 [facility] Determination of erythrocyte mean corpuscular volume (MCV)Ordered By: Dr. Wilks on 07-25-2022 MCV (RBC) [Entitic vol] 93.0 fL 81-99 [facility] Hematocrit Auto (Bld) [Volum e fraction]Ordered By: Dr. Wilks on 07-25-2022 Hematocrit (Bld) [Volume fraction] 37.3 % 37-47 [facility] Laboratory - Chemistry and C hemistry - challengeon 07-25-2022 CO2 [Moles/Vol] 27.0 mmol/L 21.0-32.0 [facility] Work Phone: Urea nitrogen/Creatinine [Mass ratio] 29.8 mg/mg 10-20 [facility] Work Phone: Laboratory - Hematology and Cell countson 07-25-2022 Erythrocyte distribution width (RBC) [Entitic vol] 55.9 fL 35.1-43.9 [facility] Work Phone: Erythrocyte distribution width (RBC) [Ratio] 16.5 % 11.6-14.6 [facility] Work Phone: Immature granulocytes/100 WBC (Bld) 0.400 % 0.0-0.9 [facility] Work Phone: Comment on above: IG% - Immature Granu locytes (promyelocytes, myelocytes and metamyelocytes) > 1% indicates that a LEFT SHIFT is Present. MCH (RBC) [Entitic mass] 29.4 pg 27.0-32.0 [facility] Work Phone: Nucleated RBC/100 WBC (Bld) [Ratio] 0 % 0-5 [facility] Work Phone: MCHC Auto (RBC) [Mass/Vol]Or dered By: Dr. Wilks on 07-25-2022 MCHC (RBC) [Mass/Vol] 31.6 g/dL 32-36 [facility] No Panel Informationon 07-25 Estimated GFR (MDRD) Amer 75 mL/min >60 [facility] Work Phone: Comment on above: GFR Calc Estimated GFR (MDRD) Non-Af Amer 62 mL/min >60 [facility] Work Phone: Comment on above: Non- GFR Calc No Panel InformationOrdered By: Dr. Wilks on 07-25-2022 29.4 pg 27.0-32.0 [facility] 16.5 % 11.6-14.6 [facility] 55.9 fl 35.1-43.9 [facility] 0.400 % 0.0-0.9 [facility] 0 % 0-5 [facility] 62 mL/min >60 [facility] 75 mL/min >60 [facility] 29.8 RATIO 10-20 [facility] 27.0 mmol/L 21.0-32.0 [facility] Platelets bldOrdered By: Dr. Wilks on 07-25-2022 Platelets (Bld) [#/Vol] 343 10*3/uL 150-450 [facility] Serum or plasma calcium chay urement (mass/volume)Ordered By: Dr. Wilks on 07-25-2022 Calcium [Mass/Vol] 11.2 mg/dL 8.5-10.1 [facility] Serum or plasma creatinine m easurement (mass/volume)Ordered By: Dr. Wilks on 07-25-2022 Creatinine [Mass/Vol] 0.94 mg/dL 0.55-1.02 [facility] Comment on above: The validity of the calculated GFR & GFRAA in patients over 70 years has not been determined. Clinical correlation is essential. Serum or plasma urea nitroge n measurement (mass/volume)Ordered By: Dr. Wilks on 07-25-2022 Urea nitrogen [Mass/Vol] 28 mg/dL 7-18 [facility] Thin prep Papanicolaou smear with manual screeningOrdered By: Dr. Wilks on 07-25-2022 Thin prep Papanicolaou smear with manual screening 5 5-15 [facility] Absolute lymphocyte countOrd ered By: Dr. Wilks on 07-18-2022 Lymphocytes Auto (Unsp spec) [#/Vol] 1.26 10*3/uL 0.83-4.51 [facility] Basophil percentageOrdered B y: Dr. Wilks on 07-18-2022 Basophil percentage 112 mg/dL 74-106 [facility] Basophil percentage 137 mmol/L 136-145 [facility] Basophil percentage 4.1 mmol/L 3.5-5.1 [facility] Basophil percentage 105 mmol/L 98-107 [facility] Basophils (Bld) [#/Vol] 7.3 10*3/uL 4.4-11.0 [facility] Basophils (Bld) [#/Vol] 4.9 10*3/uL 2.0-7.7 [facility] Basophils/100 WBC (Bld) 1.1 % 0-1 [facility] Basophils/100 WBC (Bld) 67.6 % 47-70 [facility] Basophils/100 WBC (Bld) 5.2 % 0-5 [facility] Basophil percentageon 2021 Chloride [Moles/Vol] 105 mmol/L 98-107 [facility] Work Phone: Eosinophils/100 WBC (Bld) 5.2 % 0-5 [facility] Work Phone: Glucose [Mass/Vol] 112 mg/dL 74-106 [facility] Work Phone: Comment on above: Fasting Glucose resu lt from 100 to 125 mg/dL suggests IMPAIRED HOMEOSTASIS per A.D.A. criteria. Neutrophils (Bld) [#/Vol] 4.9 10*3/uL 2.0-7.7 [facility] Work Phone: Neutrophils/100 WBC (Bld) 67.6 % 47-70 [facility] Work Phone: Potassium [Moles/Vol] 4.1 mmol/L 3.5-5.1 [facility] Work Phone: Sodium [Moles/Vol] 137 mmol/L 136-145 [facility] Work Phone: WBC (Bld) [#/Vol] 7.3 10*3/uL 4.4-11.0 [facility] Work Phone: Blood erythrocytes count (nu mber/volume)Ordered By: Dr. Wilks on 07-18-2022 RBC (Bld) [#/Vol] 3.86 10*6/uL 4.2-5.4 [facility] Blood hemoglobin measurement (mass/volume)Ordered By: Dr. Wilks on 07-18-2022 Hemoglobin (Bld) [Mass/Vol] 11.0 g/dL 12.0-15.0 [facility] Blood lymphocytes/100 leukoc ytesOrdered By: Dr. Wilks on 07-18-2022 Lymphocytes/100 WBC (Bld) 17.2 % 19-41 [facility] Blood monocytes/100 leukocyt esOrdered By: Dr. Wilks on 07-18-2022 Monocytes/100 WBC (Bld) 8.5 % 0-10 [facility] Blood platelet mean volumeOr dered By: Dr. Wilks on 07-18-2022 Platelet mean volume (Bld) [Entitic vol] 10.0 fL 6.2-12.0 [facility] Determination of erythrocyte mean corpuscular volume (MCV)Ordered By: Dr. Wilks on 07-18-2022 MCV (RBC) [Entitic vol] 93.0 fL 81-99 [facility] Hematocrit Auto (Bld) [Volum e fraction]Ordered By: Dr. Wilks on 07-18-2022 Hematocrit (Bld) [Volume fraction] 35.9 % 37-47 [facility] Laboratory - Chemistry and C hemistry - challengeon 07-18-2022 CO2 [Moles/Vol] 26.0 mmol/L 21.0-32.0 [facility] Work Phone: Urea nitrogen/Creatinine [Mass ratio] 16.4 mg/mg 10-20 [facility] Work Phone: Laboratory - Hematology and Cell countson 07-18-2022 Erythrocyte distribution width (RBC) [Entitic vol] 55.2 fL 35.1-43.9 [facility] Work Phone: Erythrocyte distribution width (RBC) [Ratio] 16.2 % 11.6-14.6 [facility] Work Phone: Immature granulocytes/100 WBC (Bld) 0.400 % 0.0-0.9 [facility] Work Phone: Comment on above: IG% - Immature Granu locytes (promyelocytes, myelocytes and metamyelocytes) > 1% indicates that a LEFT SHIFT is Present. MCH (RBC) [Entitic mass] 28.5 pg 27.0-32.0 [facility] Work Phone: Nucleated RBC/100 WBC (Bld) [Ratio] 0 % 0-5 [facility] Work Phone: MCHC Auto (RBC) [Mass/Vol]Or dered By: Dr. Wilks on 07-18-2022 MCHC (RBC) [Mass/Vol] 30.6 g/dL 32-36 [facility] No Panel Informationon 07-18 Estimated GFR (MDRD) Amer 77 mL/min >60 [facility] Work Phone: Comment on above: GFR Calc Estimated GFR (MDRD) Non-Af Amer 64 mL/min >60 [facility] Work Phone: Comment on above: Non- GFR Calc No Panel InformationOrdered By: Dr. Wilks on 07-18-2022 28.5 pg 27.0-32.0 [facility] 16.2 % 11.6-14.6 [facility] 55.2 fl 35.1-43.9 [facility] 0.400 % 0.0-0.9 [facility] 0 % 0-5 [facility] 64 mL/min >60 [facility] 77 mL/min >60 [facility] 16.4 RATIO 10-20 [facility] 26.0 mmol/L 21.0-32.0 [facility] Platelets bldOrdered By: Dr. Wilsk on 07-18-2022 Platelets (Bld) [#/Vol] 373 10*3/uL 150-450 [facility] Serum or plasma calcium chay urement (mass/volume)Ordered By: Dr. Wilks on 07-18-2022 Calcium [Mass/Vol] 10.8 mg/dL 8.5-10.1 [facility] Serum or plasma creatinine m easurement (mass/volume)Ordered By: Dr. Wilks on 07-18-2022 Creatinine [Mass/Vol] 0.91 mg/dL 0.55-1.02 [facility] Comment on above: The validity of the calculated GFR & GFRAA in patients over 70 years has not been determined. Clinical correlation is essential. Serum or plasma urea nitroge n measurement (mass/volume)Ordered By: Dr. Wilks on 07-18-2022 Urea nitrogen [Mass/Vol] 15 mg/dL 7-18 [facility] Thin prep Papanicolaou smear with manual screeningOrdered By: Dr. Wilks on 07-18-2022 Thin prep Papanicolaou smear with manual screening 6 5-15 [facility] Absolute lymphocyte countOrd ered By: Dr. Wilks on 07-11-2022 Lymphocytes Auto (Unsp spec) [#/Vol] 1.11 10*3/uL 0.83-4.51 [facility] Basophil percentageOrdered B y: Dr. Wilks on 07-11-2022 Basophil percentage 100 mg/dL 74-106 [facility] Basophil percentage 142 mmol/L 136-145 [facility] Basophil percentage 3.6 mmol/L 3.5-5.1 [facility] Basophil percentage 114 mmol/L 98-107 [facility] Basophils (Bld) [#/Vol] 6.9 10*3/uL 4.4-11.0 [facility] Basophils (Bld) [#/Vol] 4.8 10*3/uL 2.0-7.7 [facility] Basophils/100 WBC (Bld) 0.7 % 0-1 [facility] Basophils/100 WBC (Bld) 69.7 % 47-70 [facility] Basophils/100 WBC (Bld) 4.2 % 0-5 [facility] Basophil percentageon 2021 Chloride [Moles/Vol] 114 mmol/L 98-107 [facility] Work Phone: Eosinophils/100 WBC (Bld) 4.2 % 0-5 [facility] Work Phone: Glucose [Mass/Vol] 100 mg/dL 74-106 [facility] Work Phone: Comment on above: Fasting Glucose resu lt from 100 to 125 mg/dL suggests IMPAIRED HOMEOSTASIS per A.D.A. criteria. Neutrophils (Bld) [#/Vol] 4.8 10*3/uL 2.0-7.7 [facility] Work Phone: Neutrophils/100 WBC (Bld) 69.7 % 47-70 [facility] Work Phone: Potassium [Moles/Vol] 3.6 mmol/L 3.5-5.1 [facility] Work Phone: Sodium [Moles/Vol] 142 mmol/L 136-145 [facility] Work Phone: WBC (Bld) [#/Vol] 6.9 10*3/uL 4.4-11.0 [facility] Work Phone: Blood erythrocytes count (nu mber/volume)Ordered By: Dr. Wilks on 07-11-2022 RBC (Bld) [#/Vol] 3.30 10*6/uL 4.2-5.4 [facility] Blood hemoglobin measurement (mass/volume)Ordered By: Dr. Wilks on 07-11-2022 Hemoglobin (Bld) [Mass/Vol] 9.7 g/dL 12.0-15.0 [facility] Blood lymphocytes/100 leukoc ytesOrdered By: Dr. Wilks on 07-11-2022 Lymphocytes/100 WBC (Bld) 16.1 % 19-41 [facility] Blood monocytes/100 leukocyt esOrdered By: Dr. Wilks on 07-11-2022 Monocytes/100 WBC (Bld) 8.9 % 0-10 [facility] Blood platelet mean volumeOr dered By: Dr. Wilks on 07-11-2022 Platelet mean volume (Bld) [Entitic vol] 10.0 fL 6.2-12.0 [facility] Determination of erythrocyte mean corpuscular volume (MCV)Ordered By: Dr. Wilks on 07-11-2022 MCV (RBC) [Entitic vol] 94.2 fL 81-99 [facility] Hematocrit Auto (Bld) [Volum e fraction]Ordered By: Dr. Wilks on 07-11-2022 Hematocrit (Bld) [Volume fraction] 31.1 % 37-47 [facility] Laboratory - Chemistry and C hemistry - challengeon 07-11-2022 CO2 [Moles/Vol] 26.0 mmol/L 21.0-32.0 [facility] Work Phone: Urea nitrogen/Creatinine [Mass ratio] 10.1 mg/mg 10-20 [facility] Work Phone: Laboratory - Hematology and Cell countson 07-11-2022 Erythrocyte distribution width (RBC) [Entitic vol] 54.6 fL 35.1-43.9 [facility] Work Phone: Erythrocyte distribution width (RBC) [Ratio] 15.9 % 11.6-14.6 [facility] Work Phone: Immature granulocytes/100 WBC (Bld) 0.400 % 0.0-0.9 [facility] Work Phone: Comment on above: IG% - Immature Granu locytes (promyelocytes, myelocytes and metamyelocytes) > 1% indicates that a LEFT SHIFT is Present. MCH (RBC) [Entitic mass] 29.4 pg 27.0-32.0 [facility] Work Phone: Nucleated RBC/100 WBC (Bld) [Ratio] 0 % 0-5 [facility] Work Phone: MCHC Auto (RBC) [Mass/Vol]Or dered By: Dr. Wilks on 07-11-2022 MCHC (RBC) [Mass/Vol] 31.2 g/dL 32-36 [facility] No Panel Informationon 07-11 Estimated GFR (MDRD) Amer 126 mL/min >60 [facility] Work Phone: Comment on above: GFR Calc Estimated GFR (MDRD) Non-Af Amer 105 mL/min >60 [facility] Work Phone: Comment on above: Non- GFR Calc No Panel InformationOrdered By: Dr. Wilks on 07-11-2022 29.4 pg 27.0-32.0 [facility] 15.9 % 11.6-14.6 [facility] 54.6 fl 35.1-43.9 [facility] 0.400 % 0.0-0.9 [facility] 0 % 0-5 [facility] 105 mL/min >60 [facility] 126 mL/min >60 [facility] 10.1 RATIO 10-20 [facility] 26.0 mmol/L 21.0-32.0 [facility] Platelets bldOrdered By: Dr. Wilks on 07-11-2022 Platelets (Bld) [#/Vol] 325 10*3/uL 150-450 [facility] Serum or plasma calcium chay urement (mass/volume)Ordered By: Dr. Wilks on 07-11-2022 Calcium [Mass/Vol] 10.1 mg/dL 8.5-10.1 [facility] Serum or plasma creatinine m easurement (mass/volume)Ordered By: Dr. Wilks on 07-11-2022 Creatinine [Mass/Vol] 0.60 mg/dL 0.55-1.02 [facility] Comment on above: The validity of the calculated GFR & GFRAA in patients over 70 years has not been determined. Clinical correlation is essential. Serum or plasma urea nitroge n measurement (mass/volume)Ordered By: Dr. Wilks on 07-11-2022 Urea nitrogen [Mass/Vol] 6 mg/dL 7-18 [facility] Thin prep Papanicolaou smear with manual screeningOrdered By: Dr. Wilks on 07-11-2022 Thin prep Papanicolaou smear with manual screening 2 5-15 [facility] Absolute lymphocyte countOrd ered By: Dr. Issa on 07-10-2022 Lymphocytes Auto (Unsp spec) [#/Vol] 1.64 10*3/uL 0.83-4.51 [facility] Basophil percentageOrdered B y: Dr. Issa on 07-10-2022 Basophil percentage 78 mg/dL 74-106 [facility] Basophil percentage 6.4 g/dL 6.4-8.2 [facility] Basophil percentage 0.30 mg/dL 0.20-1.00 [facility] Basophil percentage 145 mmol/L 136-145 [facility] Basophil percentage 3.5 mmol/L 3.5-5.1 [facility] Basophil percentage 116 mmol/L 98-107 [facility] Basophils (Bld) [#/Vol] 6.5 10*3/uL 4.4-11.0 [facility] Basophils (Bld) [#/Vol] 3.8 10*3/uL 2.0-7.7 [facility] Basophils/100 WBC (Bld) 0.8 % 0-1 [facility] Basophils/100 WBC (Bld) 58.0 % 47-70 [facility] Basophils/100 WBC (Bld) 4.9 % 0-5 [facility] Basophil percentageon 2021 Bilirubin [Mass/Vol] 0.30 mg/dL 0.20-1.00 [facility] Work Phone: Comment on above: For patients on eltr ombopag therapy, use of Dimension [place] TBIL is not recommended. Chloride [Moles/Vol] 116 mmol/L 98-107 [facility] Work Phone: Eosinophils/100 WBC (Bld) 4.9 % 0-5 [facility] Work Phone: Glucose [Mass/Vol] 78 mg/dL 74-106 [facility] Work Phone: Neutrophils (Bld) [#/Vol] 3.8 10*3/uL 2.0-7.7 [facility] Work Phone: Neutrophils/100 WBC (Bld) 58.0 % 47-70 [facility] Work Phone: Potassium [Moles/Vol] 3.5 mmol/L 3.5-5.1 [facility] Work Phone: Protein [Mass/Vol] 6.4 g/dL 6.4-8.2 [facility] Work Phone: Sodium [Moles/Vol] 145 mmol/L 136-145 [facility] Work Phone: WBC (Bld) [#/Vol] 6.5 10*3/uL 4.4-11.0 [facility] Work Phone: Blood erythrocytes count (nu mber/volume)Ordered By: Dr. Issa on 07-10-2022 RBC (Bld) [#/Vol] 3.20 10*6/uL 4.2-5.4 [facility] Blood hemoglobin measurement (mass/volume)Ordered By: Dr. Issa on 07-10-2022 Hemoglobin (Bld) [Mass/Vol] 9.4 g/dL 12.0-15.0 [facility] Blood lymphocytes/100 leukoc ytesOrdered By: Dr. Issa on 07-10-2022 Lymphocytes/100 WBC (Bld) 25.2 % 19-41 [facility] Blood monocytes/100 leukocyt esOrdered By: Dr. Issa on 07-10-2022 Monocytes/100 WBC (Bld) 10.6 % 0-10 [facility] Blood platelet mean volumeOr dered By: Dr. Issa on 07-10-2022 Platelet mean volume (Bld) [Entitic vol] 9.7 fL 6.2-12.0 [facility] COVID-19 virus antigen assay Ordered By: Dr. Marti on 07-10-2022 SARS-CoV-2 (COVID-19) Ag IA.rapid Ql (Resp) [facility] Determination of erythrocyte mean corpuscular volume (MCV)Ordered By: Dr. Issa on 07-10-2022 MCV (RBC) [Entitic vol] 93.8 fL 81-99 [facility] Hematocrit Auto (Bld) [Volum e fraction]Ordered By: Dr. Issa on 07-10-2022 Hematocrit (Bld) [Volume fraction] 30.0 % 37-47 [facility] Laboratory - Chemistry and C hemistry - challengeon 07-10-2022 ALP [Catalytic activity/Vol] 51 U/L 45-117 [facility] Work Phone: ALT [Catalytic activity/Vol] 14 U/L 13-56 [facility] Work Phone: CO2 [Moles/Vol] 25.0 mmol/L 21.0-32.0 [facility] Work Phone: Globulin (S) [Mass/Vol] 4.0 g/dL 2.2-4.2 [facility] Work Phone: Urea nitrogen/Creatinine [Mass ratio] 10.3 mg/mg 10-20 [facility] Work Phone: Laboratory - Hematology and Cell countson 07-10-2022 Erythrocyte distribution width (RBC) [Entitic vol] 54.3 fL 35.1-43.9 [facility] Work Phone: Erythrocyte distribution width (RBC) [Ratio] 15.8 % 11.6-14.6 [facility] Work Phone: Immature granulocytes/100 WBC (Bld) 0.500 % 0.0-0.9 [facility] Work Phone: Comment on above: IG% - Immature Granu locytes (promyelocytes, myelocytes and metamyelocytes) > 1% indicates that a LEFT SHIFT is Present. MCH (RBC) [Entitic mass] 29.4 pg 27.0-32.0 [facility] Work Phone: Nucleated RBC/100 WBC (Bld) [Ratio] 0 % 0-5 [facility] Work Phone: MCHC Auto (RBC) [Mass/Vol]Or dered By: Dr. Issa on 07-10-2022 MCHC (RBC) [Mass/Vol] 31.3 g/dL 32-36 [facility] No Panel Informationon 07-10 Estimated Creatinine Clearance Calc 52.64 ml/min [facility] Work Phone: Estimated GFR (MDRD) Amer 109 mL/min >60 [facility] Work Phone: Comment on above: GFR Calc Estimated GFR (MDRD) Non-Af Amer 90 mL/min >60 [facility] Work Phone: Comment on above: Non- GFR Calc No Panel InformationOrdered By: Dr. Issa on 07-10-2022 29.4 pg 27.0-32.0 [facility] 15.8 % 11.6-14.6 [facility] 54.3 fl 35.1-43.9 [facility] 0.500 % 0.0-0.9 [facility] 0 % 0-5 [facility] 90 mL/min >60 [facility] 109 mL/min >60 [facility] 52.64 ml/min [facility] 10.3 RATIO 10-20 [facility] 4.0 g/dL 2.2-4.2 [facility] 51 U/L 45-117 [facility] 14 U/L 13-56 [facility] 25.0 mmol/L 21.0-32.0 [facility] Platelets bldOrdered By: Dr. Issa on 07-10-2022 Platelets (Bld) [#/Vol] 303 10*3/uL 150-450 [facility] Serum or plasma albumin chay urement (mass/volume)Ordered By: Dr. Issa on 07-10-2022 Albumin [Mass/Vol] 2.4 g/dL 3.2-5.0 [facility] Serum or plasma albumin/glob ulin mass ratioOrdered By: Dr. Issa on 07-10-2022 Albumin/Globulin [Mass ratio] 0.6 {ratio} 0.9-2.4 [facility] Serum or plasma calcium chay urement (mass/volume)Ordered By: Dr. Issa on 07-10-2022 Calcium [Mass/Vol] 9.7 mg/dL 8.5-10.1 [facility] Serum or plasma creatinine m easurement (mass/volume)Ordered By: Dr. Issa on 07-10-2022 Creatinine [Mass/Vol] 0.68 mg/dL 0.55-1.02 [facility] Comment on above: The validity of the calculated GFR & GFRAA in patients over 70 years has not been determined. Clinical correlation is essential. Serum or plasma urea nitroge n measurement (mass/volume)Ordered By: Dr. Issa on 07-10-2022 Urea nitrogen [Mass/Vol] 7 mg/dL 7-18 [facility] Thin prep Papanicolaou smear with manual screeningOrdered By: Dr. Issa on 07-10-2022 Thin prep Papanicolaou smear with manual screening 11 U/L 15-37 [facility] Thin prep Papanicolaou smear with manual screening 4 5-15 [facility] Absolute lymphocyte counton 07-08-2022 Lymphocytes Auto (Unsp spec) [#/Vol] 1.16 10*3/uL 0.83-4.51 [facility] Work Phone: Basophil percentageon 2021 Basophils/100 WBC (Bld) 0.8 % 0-1 [facility] Work Phone: Bilirubin [Mass/Vol] 0.20 mg/dL 0.20-1.00 [facility] Work Phone: Comment on above: For patients on eltr ombopag therapy, use of Dimension [place] TBIL is not recommended. Chloride [Moles/Vol] 107 mmol/L 98-107 [facility] Work Phone: Eosinophils/100 WBC (Bld) 2.6 % 0-5 [facility] Work Phone: Glucose [Mass/Vol] 90 mg/dL 74-106 [facility] Work Phone: Neutrophils (Bld) [#/Vol] 5.8 10*3/uL 2.0-7.7 [facility] Work Phone: Neutrophils/100 WBC (Bld) 73.1 % 47-70 [facility] Work Phone: Potassium [Moles/Vol] 4.1 mmol/L 3.5-5.1 [facility] Work Phone: Protein [Mass/Vol] 7.5 g/dL 6.4-8.2 [facility] Work Phone: Sodium [Moles/Vol] 139 mmol/L 136-145 [facility] Work Phone: WBC (Bld) [#/Vol] 8.0 10*3/uL 4.4-11.0 [facility] Work Phone: Blood erythrocytes count (nu mber/volume)on 07-08-2022 RBC (Bld) [#/Vol] 3.75 10*6/uL 4.2-5.4 [facility] Work Phone: Blood hemoglobin measurement (mass/volume)on 07-08-2022 Hemoglobin (Bld) [Mass/Vol] 10.7 g/dL 12.0-15.0 [facility] Work Phone: Blood lymphocytes/100 leukoc yteson 07-08-2022 Lymphocytes/100 WBC (Bld) 14.5 % 19-41 [facility] Work Phone: Blood monocytes/100 leukocyt eson 07-08-2022 Monocytes/100 WBC (Bld) 8.6 % 0-10 [facility] Work Phone: Blood platelet mean volumeon 07-08-2022 Platelet mean volume (Bld) [Entitic vol] 9.6 fL 6.2-12.0 [facility] Work Phone: Determination of erythrocyte mean corpuscular volume (MCV)on 07-08-2022 MCV (RBC) [Entitic vol] 93.1 fL 81-99 [facility] Work Phone: Hematocrit Auto (Bld) [Volum e fraction]on 07-08-2022 Hematocrit (Bld) [Volume fraction] 34.9 % 37-47 [facility] Work Phone: Laboratory - Chemistry and C hemistry - challengeon 07-08-2022 ALP [Catalytic activity/Vol] 63 U/L 45-117 [facility] Work Phone: ALT [Catalytic activity/Vol] 17 U/L 13-56 [facility] Work Phone: CO2 [Moles/Vol] 26.0 mmol/L 21.0-32.0 [facility] Work Phone: Globulin (S) [Mass/Vol] 4.8 g/dL 2.2-4.2 [facility] Work Phone: Urea nitrogen/Creatinine [Mass ratio] 22.0 mg/mg 10-20 [facility] Work Phone: Laboratory - Hematology and Cell countson 07-08-2022 Erythrocyte distribution width (RBC) [Entitic vol] 53.6 fL 35.1-43.9 [facility] Work Phone: Erythrocyte distribution width (RBC) [Ratio] 15.7 % 11.6-14.6 [facility] Work Phone: Immature granulocytes/100 WBC (Bld) 0.400 % 0.0-0.9 [facility] Work Phone: Comment on above: IG% - Immature Granu locytes (promyelocytes, myelocytes and metamyelocytes) > 1% indicates that a LEFT SHIFT is Present. MCH (RBC) [Entitic mass] 28.5 pg 27.0-32.0 [facility] Work Phone: Nucleated RBC/100 WBC (Bld) [Ratio] 0 % 0-5 [facility] Work Phone: MCHC Auto (RBC) [Mass/Vol]on 07-08-2022 MCHC (RBC) [Mass/Vol] 30.7 g/dL 32-36 [facility] Work Phone: No Panel Informationon 07-08 Estimated Creatinine Clearance Calc 57.09 ml/min [facility] Work Phone: Estimated GFR (MDRD) Amer 94 mL/min >60 [facility] Work Phone: Comment on above: GFR Calc Estimated GFR (MDRD) Non-Af Amer 77 mL/min >60 [facility] Work Phone: Comment on above: Non- GFR Calc Platelets bldon 07-08-2022 Platelets (Bld) [#/Vol] 356 10*3/uL 150-450 [facility] Work Phone: Serum or plasma albumin chay urement (mass/volume)on 07-08-2022 Albumin [Mass/Vol] 2.7 g/dL 3.2-5.0 [facility] Work Phone: Serum or plasma albumin/glob ulin mass ratioon 07-08-2022 Albumin/Globulin [Mass ratio] 0.6 {ratio} 0.9-2.4 [facility] Work Phone: Serum or plasma calcium chay urement (mass/volume)on 07-08-2022 Calcium [Mass/Vol] 10.5 mg/dL 8.5-10.1 [facility] Work Phone: Serum or plasma creatinine m easurement (mass/volume)on 07-08-2022 Creatinine [Mass/Vol] 0.77 mg/dL 0.55-1.02 [facility] Work Phone: Comment on above: The validity of the calculated GFR & GFRAA in patients over 70 years has not been determined. Clinical correlation is essential. Serum or plasma urea nitroge n measurement (mass/volume)on 07-08-2022 Urea nitrogen [Mass/Vol] 17 mg/dL 7-18 [facility] Work Phone: Thin prep Papanicolaou smear with manual screeningon 07-08-2022 Thin prep Papanicolaou smear with manual screening 9 U/L 15-37 [facility] Work Phone: Thin prep Papanicolaou smear with manual screening 6 5-15 [facility] Work Phone: Absolute lymphocyte countOrd ered By: Dr. Wilks on 07-03-2022 Lymphocytes Auto (Unsp spec) [#/Vol] 1.36 10*3/uL 0.83-4.51 [facility] Basophil percentageOrdered B y: Dr. Wilks on 07-03-2022 Basophil percentage 105 mg/dL 74-106 [facility] Basophil percentage 136 mmol/L 136-145 [facility] Basophil percentage 4.2 mmol/L 3.5-5.1 [facility] Basophil percentage 104 mmol/L 98-107 [facility] Basophils (Bld) [#/Vol] 10.6 10*3/uL 4.4-11.0 [facility] Basophils (Bld) [#/Vol] 7.9 10*3/uL 2.0-7.7 [facility] Basophils/100 WBC (Bld) 0.7 % 0-1 [facility] Basophils/100 WBC (Bld) 74.6 % 47-70 [facility] Basophils/100 WBC (Bld) 2.6 % 0-5 [facility] Basophil percentageon 2021 Chloride [Moles/Vol] 104 mmol/L 98-107 [facility] Work Phone: Eosinophils/100 WBC (Bld) 2.6 % 0-5 [facility] Work Phone: Glucose [Mass/Vol] 105 mg/dL 74-106 [facility] Work Phone: Comment on above: Fasting Glucose resu lt from 100 to 125 mg/dL suggests IMPAIRED HOMEOSTASIS per A.D.A. criteria. Neutrophils (Bld) [#/Vol] 7.9 10*3/uL 2.0-7.7 [facility] Work Phone: Neutrophils/100 WBC (Bld) 74.6 % 47-70 [facility] Work Phone: Potassium [Moles/Vol] 4.2 mmol/L 3.5-5.1 [facility] Work Phone: Sodium [Moles/Vol] 136 mmol/L 136-145 [facility] Work Phone: WBC (Bld) [#/Vol] 10.6 10*3/uL 4.4-11.0 [facility] Work Phone: Blood erythrocytes count (nu mber/volume)Ordered By: Dr. Wilks on 07-03-2022 RBC (Bld) [#/Vol] 3.65 10*6/uL 4.2-5.4 [facility] Blood hemoglobin measurement (mass/volume)Ordered By: Dr. Wilks on 07-03-2022 Hemoglobin (Bld) [Mass/Vol] 10.6 g/dL 12.0-15.0 [facility] Blood lymphocytes/100 leukoc ytesOrdered By: Dr. Wilks on 07-03-2022 Lymphocytes/100 WBC (Bld) 12.8 % 19-41 [facility] Blood monocytes/100 leukocyt esOrdered By: Dr. Wilks on 07-03-2022 Monocytes/100 WBC (Bld) 8.3 % 0-10 [facility] Blood platelet mean volumeOr dered By: Dr. Wilks on 07-03-2022 Platelet mean volume (Bld) [Entitic vol] 10.5 fL 6.2-12.0 [facility] Determination of erythrocyte mean corpuscular volume (MCV)Ordered By: Dr. Wilks on 07-03-2022 MCV (RBC) [Entitic vol] 92.6 fL 81-99 [facility] Hematocrit Auto (Bld) [Volum e fraction]Ordered By: Dr. Wilks on 07-03-2022 Hematocrit (Bld) [Volume fraction] 33.8 % 37-47 [facility] Laboratory - Chemistry and C hemistry - challengeon 07-03-2022 CO2 [Moles/Vol] 25.0 mmol/L 21.0-32.0 [facility] Work Phone: Magnesium [Mass/Vol] 2.6 mg/dL 1.6-2.6 [facility] Work Phone: Urea nitrogen/Creatinine [Mass ratio] 19.8 mg/mg 10-20 [facility] Work Phone: Laboratory - Hematology and Cell countson 07-03-2022 Erythrocyte distribution width (RBC) [Entitic vol] 54.2 fL 35.1-43.9 [facility] Work Phone: Erythrocyte distribution width (RBC) [Ratio] 15.9 % 11.6-14.6 [facility] Work Phone: Immature granulocytes/100 WBC (Bld) 1.000 % 0.0-0.9 [facility] Work Phone: Comment on above: IG% - Immature Granu locytes (promyelocytes, myelocytes and metamyelocytes) > 1% indicates that a LEFT SHIFT is Present. MCH (RBC) [Entitic mass] 29.0 pg 27.0-32.0 [facility] Work Phone: Nucleated RBC/100 WBC (Bld) [Ratio] 0 % 0-5 [facility] Work Phone: MCHC Auto (RBC) [Mass/Vol]Or dered By: Dr. Wilks on 07-03-2022 MCHC (RBC) [Mass/Vol] 31.4 g/dL 32-36 [facility] No Panel Informationon 07-03 Estimated GFR (MDRD) Amer 83 mL/min >60 [facility] Work Phone: Comment on above: GFR Calc Estimated GFR (MDRD) Non-Af Amer 68 mL/min >60 [facility] Work Phone: Comment on above: Non- GFR Calc No Panel InformationOrdered By: Dr. Wilks on 07-03-2022 29.0 pg 27.0-32.0 [facility] 15.9 % 11.6-14.6 [facility] 54.2 fl 35.1-43.9 [facility] 1.000 % 0.0-0.9 [facility] 0 % 0-5 [facility] 68 mL/min >60 [facility] 83 mL/min >60 [facility] 19.8 RATIO 10-20 [facility] 2.6 mg/dL 1.6-2.6 [facility] 25.0 mmol/L 21.0-32.0 [facility] Platelets bldOrdered By: Dr. Wilks on 07-03-2022 Platelets (Bld) [#/Vol] 323 10*3/uL 150-450 [facility] Serum or plasma C reactive p rotein measurement (mass/volume)Ordered By: Dr. Wilks on 07-03-2022 CRP [Mass/Vol] 72.90 mg/L 0.0-3.0 [facility] Comment on above: C-Reactive Protein ( CRP) provides useful information for thediagnosis, therapy and monitoring of inflammatory processesand associated diseases. For the evaluation of Relative Riskfor Cardiovascular Disease, a High Sensitivity CRP (HSCRP)should be ordered. Serum or plasma calcium chay urement (mass/volume)Ordered By: Dr. Wilks on 07-03-2022 Calcium [Mass/Vol] 10.8 mg/dL 8.5-10.1 [facility] Serum or plasma creatinine m easurement (mass/volume)Ordered By: Dr. Wilsk on 07-03-2022 Creatinine [Mass/Vol] 0.86 mg/dL 0.55-1.02 [facility] Comment on above: The validity of the calculated GFR & GFRAA in patients over 70 years has not been determined. Clinical correlation is essential. Serum or plasma urea nitroge n measurement (mass/volume)Ordered By: Dr. Wilks on 07-03-2022 Urea nitrogen [Mass/Vol] 17 mg/dL 7-18 [facility] Thin prep Papanicolaou smear with manual screeningOrdered By: Dr. Wilks on 07-03-2022 Thin prep Papanicolaou smear with manual screening 7 5-15 [facility] Absolute lymphocyte countOrd ered By: Dr. Baron on 06-29-2022 Lymphocytes Auto (Unsp spec) [#/Vol] 1.44 10*3/uL 0.83-4.51 [facility] Basophil percentageOrdered B y: Dr. Baron on 06-29-2022 Basophils (Bld) [#/Vol] 13.9 10*3/uL 4.4-11.0 [facility] Basophils (Bld) [#/Vol] 10.7 10*3/uL 2.0-7.7 [facility] Basophils/100 WBC (Bld) 0.5 % 0-1 [facility] Basophils/100 WBC (Bld) 77.5 % 47-70 [facility] Basophils/100 WBC (Bld) 2.5 % 0-5 [facility] Basophil percentageon 2021 Eosinophils/100 WBC (Bld) 2.5 % 0-5 [facility] Work Phone: Neutrophils (Bld) [#/Vol] 10.7 10*3/uL 2.0-7.7 [facility] Work Phone: Neutrophils/100 WBC (Bld) 77.5 % 47-70 [facility] Work Phone: WBC (Bld) [#/Vol] 13.9 10*3/uL 4.4-11.0 [facility] Work Phone: Blood erythrocytes count (nu mber/volume)Ordered By: Dr. Baron on 06-29-2022 RBC (Bld) [#/Vol] 3.73 10*6/uL 4.2-5.4 [facility] Blood hemoglobin measurement (mass/volume)Ordered By: Dr. Baron on 06-29-2022 Hemoglobin (Bld) [Mass/Vol] 11.2 g/dL 12.0-15.0 [facility] Blood lymphocytes/100 leukoc ytesOrdered By: Dr. Baron on 06-29-2022 Lymphocytes/100 WBC (Bld) 10.4 % 19-41 [facility] Blood monocytes/100 leukocyt esOrdered By: Dr. Baron on 06-29-2022 Monocytes/100 WBC (Bld) 7.1 % 0-10 [facility] Blood platelet mean volumeOr dered By: Dr. Baron on 06-29-2022 Platelet mean volume (Bld) [Entitic vol] 9.9 fL 6.2-12.0 [facility] Determination of erythrocyte mean corpuscular volume (MCV)Ordered By: Dr. Baron on 06-29-2022 MCV (RBC) [Entitic vol] 92.0 fL 81-99 [facility] Hematocrit Auto (Bld) [Volum e fraction]Ordered By: Dr. Baron on 06-29-2022 Hematocrit (Bld) [Volume fraction] 34.3 % 37-47 [facility] Laboratory - Hematology and Cell countson 06-29-2022 Erythrocyte distribution width (RBC) [Entitic vol] 51.9 fL 35.1-43.9 [facility] Work Phone: Erythrocyte distribution width (RBC) [Ratio] 15.6 % 11.6-14.6 [facility] Work Phone: Immature granulocytes/100 WBC (Bld) 2.000 % 0.0-0.9 [facility] Work Phone: Comment on above: IG% - Immature Granu locytes (promyelocytes, myelocytes and metamyelocytes) > 1% indicates that a LEFT SHIFT is Present. MCH (RBC) [Entitic mass] 30.0 pg 27.0-32.0 [facility] Work Phone: Nucleated RBC/100 WBC (Bld) [Ratio] 0 % 0-5 [facility] Work Phone: MCHC Auto (RBC) [Mass/Vol]Or dered By: Dr. Baron on 06-29-2022 MCHC (RBC) [Mass/Vol] 32.7 g/dL 32-36 [facility] Comment on above: Delta: 31.1 on 06/26 No Panel InformationOrdered By: Dr. Baron on 06-29-2022 30.0 pg 27.0-32.0 [facility] 15.6 % 11.6-14.6 [facility] 51.9 fl 35.1-43.9 [facility] 2.000 % 0.0-0.9 [facility] 0 % 0-5 [facility] Platelets bldOrdered By: Dr. Baron on 06-29-2022 Platelets (Bld) [#/Vol] 311 10*3/uL 150-450 [facility] Absolute lymphocyte countOrd ered By: Dr. Wilks on 06-26-2022 Lymphocytes Auto (Unsp spec) [#/Vol] 1.66 10*3/uL 0.83-4.51 [facility] Basophil percentageOrdered B y: Dr. Wilks on 06-26-2022 Basophil percentage 96 mg/dL 74-106 [facility] Basophil percentage 140 mmol/L 136-145 [facility] Basophil percentage 4.1 mmol/L 3.5-5.1 [facility] Basophil percentage 108 mmol/L 98-107 [facility] Basophils (Bld) [#/Vol] 8.6 10*3/uL 4.4-11.0 [facility] Basophils (Bld) [#/Vol] 5.7 10*3/uL 2.0-7.7 [facility] Basophils/100 WBC (Bld) 0.5 % 0-1 [facility] Basophils/100 WBC (Bld) 66.3 % 47-70 [facility] Basophils/100 WBC (Bld) 4.5 % 0-5 [facility] Basophil percentageon 2021 Chloride [Moles/Vol] 108 mmol/L 98-107 [facility] Work Phone: Eosinophils/100 WBC (Bld) 4.5 % 0-5 [facility] Work Phone: Glucose [Mass/Vol] 96 mg/dL 74-106 [facility] Work Phone: Neutrophils (Bld) [#/Vol] 5.7 10*3/uL 2.0-7.7 [facility] Work Phone: Neutrophils/100 WBC (Bld) 66.3 % 47-70 [facility] Work Phone: Potassium [Moles/Vol] 4.1 mmol/L 3.5-5.1 [facility] Work Phone: Sodium [Moles/Vol] 140 mmol/L 136-145 [facility] Work Phone: WBC (Bld) [#/Vol] 8.6 10*3/uL 4.4-11.0 [facility] Work Phone: Blood erythrocytes count (nu mber/volume)Ordered By: Dr. Wilks on 06-26-2022 RBC (Bld) [#/Vol] 3.91 10*6/uL 4.2-5.4 [facility] Blood hemoglobin measurement (mass/volume)Ordered By: Dr. Wilks on 06-26-2022 Hemoglobin (Bld) [Mass/Vol] 11.4 g/dL 12.0-15.0 [facility] Blood lymphocytes/100 leukoc ytesOrdered By: Dr. Wilks on 06-26-2022 Lymphocytes/100 WBC (Bld) 19.3 % 19-41 [facility] Blood monocytes/100 leukocyt esOrdered By: Dr. Wilks on 06-26-2022 Monocytes/100 WBC (Bld) 8.1 % 0-10 [facility] Blood platelet mean volumeOr dered By: Dr. Wilks on 06-26-2022 Platelet mean volume (Bld) [Entitic vol] 10.7 fL 6.2-12.0 [facility] Determination of erythrocyte mean corpuscular volume (MCV)Ordered By: Dr. Wilks on 06-26-2022 MCV (RBC) [Entitic vol] 93.6 fL 81-99 [facility] Hematocrit Auto (Bld) [Volum e fraction]Ordered By: Dr. Wilks on 06-26-2022 Hematocrit (Bld) [Volume fraction] 36.6 % 37-47 [facility] Laboratory - Chemistry and C hemistry - challengeon 06-26-2022 CO2 [Moles/Vol] 24.0 mmol/L 21.0-32.0 [facility] Work Phone: Magnesium [Mass/Vol] 2.4 mg/dL 1.6-2.6 [facility] Work Phone: Urea nitrogen/Creatinine [Mass ratio] 18.6 mg/mg 10-20 [facility] Work Phone: Laboratory - Hematology and Cell countson 06-26-2022 Erythrocyte distribution width (RBC) [Entitic vol] 53.4 fL 35.1-43.9 [facility] Work Phone: Erythrocyte distribution width (RBC) [Ratio] 15.6 % 11.6-14.6 [facility] Work Phone: Immature granulocytes/100 WBC (Bld) 1.300 % 0.0-0.9 [facility] Work Phone: Comment on above: IG% - Immature Granu locytes (promyelocytes, myelocytes and metamyelocytes) > 1% indicates that a LEFT SHIFT is Present. MCH (RBC) [Entitic mass] 29.2 pg 27.0-32.0 [facility] Work Phone: Nucleated RBC/100 WBC (Bld) [Ratio] 0 % 0-5 [facility] Work Phone: MCHC Auto (RBC) [Mass/Vol]Or dered By: Dr. Wilks on 06-26-2022 MCHC (RBC) [Mass/Vol] 31.1 g/dL 32-36 [facility] No Panel Informationon 06-26 Estimated GFR (MDRD) Amer 97 mL/min >60 [facility] Work Phone: Comment on above: GFR Calc Estimated GFR (MDRD) Non-Af Amer 80 mL/min >60 [facility] Work Phone: Comment on above: Non- GFR Calc No Panel InformationOrdered By: Dr. Wilks on 06-26-2022 29.2 pg 27.0-32.0 [facility] 15.6 % 11.6-14.6 [facility] 53.4 fl 35.1-43.9 [facility] 1.300 % 0.0-0.9 [facility] 0 % 0-5 [facility] 80 mL/min >60 [facility] 97 mL/min >60 [facility] 18.6 RATIO 10-20 [facility] 2.4 mg/dL 1.6-2.6 [facility] 24.0 mmol/L 21.0-32.0 [facility] Platelets bldOrdered By: Dr. Wilks on 06-26-2022 Platelets (Bld) [#/Vol] 273 10*3/uL 150-450 [facility] Serum or plasma C reactive p rotein measurement (mass/volume)Ordered By: Dr. Wilks on 06-26-2022 CRP [Mass/Vol] 21.20 mg/L 0.0-3.0 [facility] Comment on above: C-Reactive Protein ( CRP) provides useful information for thediagnosis, therapy and monitoring of inflammatory processesand associated diseases. For the evaluation of Relative Riskfor Cardiovascular Disease, a High Sensitivity CRP (HSCRP)should be ordered. Serum or plasma calcium chay urement (mass/volume)Ordered By: Dr. Wilks on 06-26-2022 Calcium [Mass/Vol] 10.6 mg/dL 8.5-10.1 [facility] Serum or plasma creatinine m easurement (mass/volume)Ordered By: Dr. Wilks on 06-26-2022 Creatinine [Mass/Vol] 0.75 mg/dL 0.55-1.02 [facility] Comment on above: The validity of the calculated GFR & GFRAA in patients over 70 years has not been determined. Clinical correlation is essential. Serum or plasma urea nitroge n measurement (mass/volume)Ordered By: Dr. Wilks on 06-26-2022 Urea nitrogen [Mass/Vol] 14 mg/dL 7-18 [facility] Thin prep Papanicolaou smear with manual screeningOrdered By: Dr. Wilks on 06-26-2022 Thin prep Papanicolaou smear with manual screening 8 5-15 [facility] Absolute lymphocyte countOrd ered By: Dr. Wilks on 06-21-2022 Lymphocytes Auto (Unsp spec) [#/Vol] 1.26 10*3/uL 0.83-4.51 [facility] Basophil percentageOrdered B y: Dr. Wilks on 06-21-2022 Basophil percentage 106 mg/dL 74-106 [facility] Basophil percentage 139 mmol/L 136-145 [facility] Basophil percentage 4.1 mmol/L 3.5-5.1 [facility] Basophil percentage 109 mmol/L 98-107 [facility] Basophils (Bld) [#/Vol] 7.3 10*3/uL 4.4-11.0 [facility] Basophils (Bld) [#/Vol] 4.7 10*3/uL 2.0-7.7 [facility] Basophils/100 WBC (Bld) 0.8 % 0-1 [facility] Basophils/100 WBC (Bld) 64.5 % 47-70 [facility] Basophils/100 WBC (Bld) 3.3 % 0-5 [facility] Basophil percentageon 2021 Chloride [Moles/Vol] 109 mmol/L 98-107 [facility] Work Phone: Eosinophils/100 WBC (Bld) 3.3 % 0-5 [facility] [facility] Work Phone: Glucose [Mass/Vol] 106 mg/dL 74-106 [facility] Work Phone: Comment on above: Fasting Glucose resu lt from 100 to 125 mg/dL suggests IMPAIRED HOMEOSTASIS per A.D.A. criteria. Neutrophils (Bld) [#/Vol] 4.7 10*3/uL 2.0-7.7 [facility] Work Phone: Neutrophils/100 WBC (Bld) 64.5 % 47-70 [facility] Work Phone: Potassium [Moles/Vol] 4.1 mmol/L 3.5-5.1 [facility] Work Phone: Sodium [Moles/Vol] 139 mmol/L 136-145 [facility] Work Phone: WBC (Bld) [#/Vol] 7.3 10*3/uL 4.4-11.0 [facility] Work Phone: Blood erythrocytes count (nu mber/volume)Ordered By: Dr. Wilks on 06-21-2022 RBC (Bld) [#/Vol] 3.83 10*6/uL 4.2-5.4 [facility] Blood hemoglobin measurement (mass/volume)Ordered By: Dr. Wilks on 06-21-2022 Hemoglobin (Bld) [Mass/Vol] 11.2 g/dL 12.0-15.0 [facility] Blood lymphocytes/100 leukoc ytesOrdered By: Dr. Wilks on 06-21-2022 Lymphocytes/100 WBC (Bld) 17.2 % 19-41 [facility] Blood monocytes/100 leukocyt esOrdered By: Dr. Wilks on 06-21-2022 Monocytes/100 WBC (Bld) 13.5 % 0-10 [facility] Blood platelet mean volumeOr dered By: Dr. Wilks on 06-21-2022 Platelet mean volume (Bld) [Entitic vol] 10.6 fL 6.2-12.0 [facility] Determination of erythrocyte mean corpuscular volume (MCV)Ordered By: Dr. Wilks on 06-21-2022 MCV (RBC) [Entitic vol] 94.8 fL 81-99 [facility] Hematocrit Auto (Bld) [Volum e fraction]Ordered By: Dr. Wilks on 06-21-2022 Hematocrit (Bld) [Volume fraction] 36.3 % 37-47 [facility] Laboratory - Chemistry and C hemistry - challengeon 06-21-2022 CO2 [Moles/Vol] 25.0 mmol/L 21.0-32.0 [facility] Work Phone: Magnesium [Mass/Vol] 2.5 mg/dL 1.6-2.6 [facility] Work Phone: Urea nitrogen/Creatinine [Mass ratio] 21.6 mg/mg 10-20 [facility] Work Phone: Laboratory - Hematology and Cell countson 06-21-2022 Erythrocyte distribution width (RBC) [Entitic vol] 55.5 fL 35.1-43.9 [facility] Work Phone: Erythrocyte distribution width (RBC) [Ratio] 15.9 % 11.6-14.6 [facility] Work Phone: Immature granulocytes/100 WBC (Bld) 0.700 % 0.0-0.9 [facility] Work Phone: Comment on above: IG% - Immature Granu locytes (promyelocytes, myelocytes and metamyelocytes) > 1% indicates that a LEFT SHIFT is Present. MCH (RBC) [Entitic mass] 29.2 pg 27.0-32.0 [facility] Work Phone: Nucleated RBC/100 WBC (Bld) [Ratio] 0 % 0-5 [facility] Work Phone: MCHC Auto (RBC) [Mass/Vol]Or dered By: Dr. Wilks on 06-21-2022 MCHC (RBC) [Mass/Vol] 30.9 g/dL 32-36 [facility] No Panel Informationon 06-21 Estimated GFR (MDRD) Amer 86 mL/min >60 [facility] Work Phone: Comment on above: GFR Calc Estimated GFR (MDRD) Non-Af Amer 71 mL/min >60 [facility] Work Phone: Comment on above: Non- GFR Calc No Panel InformationOrdered By: Dr. Wilks on 06-21-2022 29.2 pg 27.0-32.0 [facility] 15.9 % 11.6-14.6 [facility] 55.5 fl 35.1-43.9 [facility] 0.700 % 0.0-0.9 [facility] 0 % 0-5 [facility] 71 mL/min >60 [facility] 86 mL/min >60 [facility] 21.6 RATIO 10-20 [facility] 2.5 mg/dL 1.6-2.6 [facility] 25.0 mmol/L 21.0-32.0 [facility] Platelets bldOrdered By: Dr. Wilks on 06-21-2022 Platelets (Bld) [#/Vol] 266 10*3/uL 150-450 [facility] Serum or plasma calcium chay urement (mass/volume)Ordered By: Dr. Wilks on 06-21-2022 Calcium [Mass/Vol] 10.4 mg/dL 8.5-10.1 [facility] Serum or plasma creatinine m easurement (mass/volume)Ordered By: Dr. Wilks on 06-21-2022 Creatinine [Mass/Vol] 0.83 mg/dL 0.55-1.02 [facility] Comment on above: The validity of the calculated GFR & GFRAA in patients over 70 years has not been determined. Clinical correlation is essential. Serum or plasma urea nitroge n measurement (mass/volume)Ordered By: Dr. Wilks on 06-21-2022 Urea nitrogen [Mass/Vol] 18 mg/dL 7-18 [facility] Thin prep Papanicolaou smear with manual screeningOrdered By: Dr. Wilks on 06-21-2022 Thin prep Papanicolaou smear with manual screening 5 5-15 [facility] Absolute lymphocyte countOrd ered By: Dr. Wilks on 06-20-2022 Lymphocytes Auto (Unsp spec) [#/Vol] 0.90 10*3/uL 0.83-4.51 [facility] Basophil percentageOrdered B y: Dr. Wilks on 06-20-2022 Basophil percentage 137 mg/dL 74-106 [facility] Basophil percentage 139 mmol/L 136-145 [facility] Basophil percentage 3.8 mmol/L 3.5-5.1 [facility] Basophil percentage 109 mmol/L 98-107 [facility] Basophils (Bld) [#/Vol] 8.7 10*3/uL 4.4-11.0 [facility] Basophils (Bld) [#/Vol] 6.4 10*3/uL 2.0-7.7 [facility] Basophils/100 WBC (Bld) 0.9 % 0-1 [facility] Basophils/100 WBC (Bld) 73.6 % 47-70 [facility] Basophils/100 WBC (Bld) 2.4 % 0-5 [facility] Basophil percentageon 2021 Chloride [Moles/Vol] 109 mmol/L 98-107 [facility] Work Phone: Eosinophils/100 WBC (Bld) 2.4 % 0-5 [facility] Work Phone: Glucose [Mass/Vol] 137 mg/dL 74-106 [facility] Work Phone: Comment on above: Fasting Glucose resu lt greater than or equal to 126 mg/dL suggests DIABETES MELLITUS per A.D.A. criteria. Neutrophils (Bld) [#/Vol] 6.4 10*3/uL 2.0-7.7 [facility] Work Phone: Neutrophils/100 WBC (Bld) 73.6 % 47-70 [facility] Work Phone: Potassium [Moles/Vol] 3.8 mmol/L 3.5-5.1 [facility] Work Phone: Sodium [Moles/Vol] 139 mmol/L 136-145 [facility] Work Phone: WBC (Bld) [#/Vol] 8.7 10*3/uL 4.4-11.0 [facility] Work Phone: Blood erythrocytes count (nu mber/volume)Ordered By: Dr. Wilks on 06-20-2022 RBC (Bld) [#/Vol] 3.78 10*6/uL 4.2-5.4 [facility] Blood hemoglobin measurement (mass/volume)Ordered By: Dr. Wilks on 06-20-2022 Hemoglobin (Bld) [Mass/Vol] 11.5 g/dL 12.0-15.0 [facility] Blood lymphocytes/100 leukoc ytesOrdered By: Dr. Wilks on 06-20-2022 Lymphocytes/100 WBC (Bld) 10.4 % 19-41 [facility] Blood monocytes/100 leukocyt esOrdered By: Dr. Wilks on 06-20-2022 Monocytes/100 WBC (Bld) 12.1 % 0-10 [facility] Blood platelet mean volumeOr dered By: Dr. Wilks on 06-20-2022 Platelet mean volume (Bld) [Entitic vol] 10.6 fL 6.2-12.0 [facility] Determination of erythrocyte mean corpuscular volume (MCV)Ordered By: Dr. Wilks on 06-20-2022 MCV (RBC) [Entitic vol] 94.2 fL 81-99 [facility] Hematocrit Auto (Bld) [Volum e fraction]Ordered By: Dr. Wilks on 06-20-2022 Hematocrit (Bld) [Volume fraction] 35.6 % 37-47 [facility] Laboratory - Chemistry and C hemistry - challengeon 06-20-2022 CO2 [Moles/Vol] 25.0 mmol/L 21.0-32.0 [facility] Work Phone: Magnesium [Mass/Vol] 2.5 mg/dL 1.6-2.6 [facility] Work Phone: Urea nitrogen/Creatinine [Mass ratio] 20.5 mg/mg 10- [facility] Work Phone: Laboratory - Hematology and Cell countson 06-20-2022 Erythrocyte distribution width (RBC) [Entitic vol] 53.9 fL 35.1-43.9 [facility] Work Phone: Erythrocyte distribution width (RBC) [Ratio] 15.7 % 11.6-14.6 [facility] Work Phone: Immature granulocytes/100 WBC (Bld) 0.600 % 0.0-0.9 [facility] Work Phone: Comment on above: IG% - Immature Granu locytes (promyelocytes, myelocytes and metamyelocytes) > 1% indicates that a LEFT SHIFT is Present. MCH (RBC) [Entitic mass] 30.4 pg 27.0-32.0 [facility] Work Phone: Nucleated RBC/100 WBC (Bld) [Ratio] 0 % 0-5 [facility] Work Phone: MCHC Auto (RBC) [Mass/Vol]Or dered By: Dr. Wilks on 06-20-2022 MCHC (RBC) [Mass/Vol] 32.3 g/dL 32-36 [facility] No Panel Informationon 06-20 Estimated GFR (MDRD) Amer 86 mL/min >60 [facility] Work Phone: Comment on above: GFR Calc Estimated GFR (MDRD) Non-Af Amer 71 mL/min >60 [facility] Work Phone: Comment on above: Non- GFR Calc No Panel InformationOrdered By: Dr. Wilks on 06-20-2022 30.4 pg 27.0-32.0 [facility] 15.7 % 11.6-14.6 [facility] 53.9 fl 35.1-43.9 [facility] 0.600 % 0.0-0.9 [facility] 0 % 0-5 [facility] 71 mL/min >60 [facility] 86 mL/min >60 [facility] 20.5 RATIO 10-20 [facility] 2.5 mg/dL 1.6-2.6 [facility] 25.0 mmol/L 21.0-32.0 [facility] Platelets bldOrdered By: Dr. Wilks on 06-20-2022 Platelets (Bld) [#/Vol] 276 10*3/uL 150-450 [facility] Serum or plasma calcium chay urement (mass/volume)Ordered By: Dr. Wilks on 06-20-2022 Calcium [Mass/Vol] 10.8 mg/dL 8.5-10.1 [facility] Serum or plasma creatinine m easurement (mass/volume)Ordered By: Dr. Wilks on 06-20-2022 Creatinine [Mass/Vol] 0.83 mg/dL 0.55-1.02 [facility] Comment on above: The validity of the calculated GFR & GFRAA in patients over 70 years has not been determined. Clinical correlation is essential. Serum or plasma urea nitroge n measurement (mass/volume)Ordered By: Dr. Wilks on 06-20-2022 Urea nitrogen [Mass/Vol] 17 mg/dL - [facility] Thin prep Papanicolaou smear with manual screeningOrdered By: Dr. Wilks on 06-20-2022 Thin prep Papanicolaou smear with manual screening 5 5-15 [facility] Absolute lymphocyte countOrd ered By: Dr. Wilks on 06-13-2022 Lymphocytes Auto (Unsp spec) [#/Vol] 1.35 10*3/uL 0.83-4.51 [facility] Basophil percentageOrdered B y: Dr. Wilks on 06-13-2022 Basophil percentage 97 mg/dL 74-106 [facility] Basophil percentage 141 mmol/L 136-145 [facility] Basophil percentage 4.4 mmol/L 3.5-5.1 [facility] Basophil percentage 109 mmol/L 98-107 [facility] Basophils (Bld) [#/Vol] 7.4 10*3/uL 4.4-11.0 [facility] Basophils (Bld) [#/Vol] 4.7 10*3/uL 2.0-7.7 [facility] Basophils/100 WBC (Bld) 0.8 % 0-1 [facility] Basophils/100 WBC (Bld) 64.1 % 47-70 [facility] Basophils/100 WBC (Bld) 5.8 % 0-5 [facility] Basophil percentageon 10-18- 2022 Chloride [Moles/Vol] 109 mmol/L 98-107 [facility] Work Phone: Eosinophils/100 WBC (Bld) 5.8 % 0-5 [facility] Work Phone: Glucose [Mass/Vol] 97 mg/dL 74-106 [facility] Work Phone: Neutrophils (Bld) [#/Vol] 4.7 10*3/uL 2.0-7.7 [facility] Work Phone: Neutrophils/100 WBC (Bld) 64.1 % 47-70 [facility] Work Phone: Potassium [Moles/Vol] 4.4 mmol/L 3.5-5.1 [facility] Work Phone: Sodium [Moles/Vol] 141 mmol/L 136-145 [facility] Work Phone: WBC (Bld) [#/Vol] 7.4 10*3/uL 4.4-11.0 [facility] Work Phone: Blood erythrocytes count (nu mber/volume)Ordered By: Dr. Wilks on 06-13-2022 RBC (Bld) [#/Vol] 3.62 10*6/uL 4.2-5.4 [facility] Blood hemoglobin measurement (mass/volume)Ordered By: Dr. Wilks on 06-13-2022 Hemoglobin (Bld) [Mass/Vol] 11.0 g/dL 12.0-15.0 [facility] Blood lymphocytes/100 leukoc ytesOrdered By: Dr. Wilks on 06-13-2022 Lymphocytes/100 WBC (Bld) 18.3 % 19-41 [facility] Blood monocytes/100 leukocyt esOrdered By: Dr. Wilks on 06-13-2022 Monocytes/100 WBC (Bld) 10.2 % 0-10 [facility] Blood platelet mean volumeOr dered By: Dr. Wilks on 06-13-2022 Platelet mean volume (Bld) [Entitic vol] 9.9 fL 6.2-12.0 [facility] Determination of erythrocyte mean corpuscular volume (MCV)Ordered By: Dr. Wilks on 06-13-2022 MCV (RBC) [Entitic vol] 97.2 fL 81-99 [facility] Hematocrit Auto (Bld) [Volum e fraction]Ordered By: Dr. Wilks on 06-13-2022 Hematocrit (Bld) [Volume fraction] 35.2 % 37-47 [facility] Laboratory - Chemistry and C hemistry - challengeon 06-13-2022 CO2 [Moles/Vol] 29.0 mmol/L 21.0-32.0 [facility] Work Phone: Magnesium [Mass/Vol] 2.6 mg/dL 1.6-2.6 [facility] Work Phone: Urea nitrogen/Creatinine [Mass ratio] 22.0 mg/mg 10-20 [facility] Work Phone: Laboratory - Hematology and Cell countson 06-13-2022 Erythrocyte distribution width (RBC) [Entitic vol] 56.2 fL 35.1-43.9 [facility] Work Phone: Erythrocyte distribution width (RBC) [Ratio] 15.9 % 11.6-14.6 [facility] Work Phone: Immature granulocytes/100 WBC (Bld) 0.800 % 0.0-0.9 [facility] Work Phone: Comment on above: IG% - Immature Granu locytes (promyelocytes, myelocytes and metamyelocytes) > 1% indicates that a LEFT SHIFT is Present. MCH (RBC) [Entitic mass] 30.4 pg 27.0-32.0 [facility] Work Phone: Nucleated RBC/100 WBC (Bld) [Ratio] 0 % 0-5 [facility] Work Phone: MCHC Auto (RBC) [Mass/Vol]Or dered By: Dr. Wilks on 06-13-2022 MCHC (RBC) [Mass/Vol] 31.3 g/dL 32-36 [facility] No Panel Informationon 06-13 Estimated GFR (MDRD) Amer 82 mL/min >60 [facility] Work Phone: Comment on above: GFR Calc Estimated GFR (MDRD) Non-Af Amer 68 mL/min >60 [facility] Work Phone: Comment on above: Non- GFR Calc Ionized Calcium 6.5 mg/dL 4.5-5.6 [facility] Work Phone: Comment on above: Performed at: [employer] [address] [id number] Director: Alexis Thomas PhD, Phone: [phone] Parathyroid Hormone (Intact) 81.7 pg/mL 18.4-80.1 [facility] Work Phone: No Panel InformationOrdered By: Dr. Wilks on 06-13-2022 30.4 pg 27.0-32.0 [facility] 15.9 % 11.6-14.6 [facility] 56.2 fl 35.1-43.9 [facility] 0.800 % 0.0-0.9 [facility] 0 % 0-5 [facility] 68 mL/min >60 [facility] 82 mL/min >60 [facility] 22.0 RATIO 10-20 [facility] 2.6 mg/dL 1.6-2.6 [facility] 29.0 mmol/L 21.0-32.0 [facility] 81.7 pg/mL 18.4-80.1 [facility] 6.5 mg/dL 4.5-5.6 [facility] Platelets bldOrdered By: Dr. Wilks on 06-13-2022 Platelets (Bld) [#/Vol] 281 10*3/uL 150-450 [facility] Serum or plasma calcium chay urement (mass/volume)Ordered By: Dr. Wilks on 06-13-2022 Calcium [Mass/Vol] 10.8 mg/dL 8.5-10.1 [facility] Serum or plasma creatinine m easurement (mass/volume)Ordered By: Dr. Wilks on 06-13-2022 Creatinine [Mass/Vol] 0.86 mg/dL 0.55-1.02 [facility] Comment on above: The validity of the calculated GFR & GFRAA in patients over 70 years has not been determined. Clinical correlation is essential. Serum or plasma urea nitroge n measurement (mass/volume)Ordered By: Dr. Wilks on 06-13-2022 Urea nitrogen [Mass/Vol] 19 mg/dL - [facility] Thin prep Papanicolaou smear with manual screeningOrdered By: Dr. Wilks on 06-13-2022 Thin prep Papanicolaou smear with manual screening 3 5-15 [facility] Absolute lymphocyte countOrd ered By: Dr. Wilks on 06-06-2022 Lymphocytes Auto (Unsp spec) [#/Vol] 1.27 10*3/uL 0.83-4.51 [facility] Bacteria identified Cx Nom ( U)Ordered By: Dr. Wilks on 06-06-2022 Culture, urine Mixed Gram Pos & Gram Neg Org [facility] Basophil percentageOrdered B y: Dr. Wilks on 06-06-2022 Basophil percentage 90 mg/dL 74-106 [facility] Basophil percentage 141 mmol/L 136-145 [facility] Basophil percentage 4.5 mmol/L 3.5-5.1 [facility] Basophil percentage 108 mmol/L 98-107 [facility] Basophils (Bld) [#/Vol] 7.0 10*3/uL 4.4-11.0 [facility] Basophils (Bld) [#/Vol] 4.4 10*3/uL 2.0-7.7 [facility] Basophils/100 WBC (Bld) 0.9 % 0-1 [facility] Basophils/100 WBC (Bld) 62.6 % 47-70 [facility] Basophils/100 WBC (Bld) 7.1 % 0-5 [facility] Basophil percentageon 2021 Chloride [Moles/Vol] 108 mmol/L 98-107 [facility] Work Phone: Eosinophils/100 WBC (Bld) 7.1 % 0-5 [facility] Work Phone: Glucose [Mass/Vol] 90 mg/dL 74-106 [facility] Work Phone: Neutrophils (Bld) [#/Vol] 4.4 10*3/uL 2.0-7.7 [facility] Work Phone: Neutrophils/100 WBC (Bld) 62.6 % 47-70 [facility] Work Phone: Potassium [Moles/Vol] 4.5 mmol/L 3.5-5.1 [facility] Work Phone: Sodium [Moles/Vol] 141 mmol/L 136-145 [facility] Work Phone: WBC (Bld) [#/Vol] 7.0 10*3/uL 4.4-11.0 [facility] Work Phone: Blood erythrocytes count (nu mber/volume)Ordered By: Dr. Wilks on 06-06-2022 RBC (Bld) [#/Vol] 3.47 10*6/uL 4.2-5.4 [facility] Blood hemoglobin measurement (mass/volume)Ordered By: Dr. Wilks on 06-06-2022 Hemoglobin (Bld) [Mass/Vol] 10.6 g/dL 12.0-15.0 [facility] Blood lymphocytes/100 leukoc ytesOrdered By: Dr. Wilks on 06-06-2022 Lymphocytes/100 WBC (Bld) 18.3 % 19-41 [facility] Blood monocytes/100 leukocyt esOrdered By: Dr. Wilks on 06-06-2022 Monocytes/100 WBC (Bld) 10.5 % 0-10 [facility] Blood platelet mean volumeOr dered By: Dr. Wilks on 06-06-2022 Platelet mean volume (Bld) [Entitic vol] 10.6 fL 6.2-12.0 [facility] Determination of erythrocyte mean corpuscular volume (MCV)Ordered By: Dr. Wilks on 06-06-2022 MCV (RBC) [Entitic vol] 97.4 fL 81-99 [facility] Hematocrit Auto (Bld) [Volum e fraction]Ordered By: Dr. Wilks on 06-06-2022 Hematocrit (Bld) [Volume fraction] 33.8 % 37-47 [facility] Laboratory - Chemistry and C hemistry - challengeon 06-06-2022 CO2 [Moles/Vol] 27.0 mmol/L 21.0-32.0 [facility] Work Phone: Magnesium [Mass/Vol] 2.3 mg/dL 1.6-2.6 [facility] Work Phone: Urea nitrogen/Creatinine [Mass ratio] 22.9 mg/mg 10-20 [facility] Work Phone: Laboratory - Hematology and Cell countson 06-06-2022 Erythrocyte distribution width (RBC) [Entitic vol] 54.7 fL 35.1-43.9 [facility] Work Phone: Erythrocyte distribution width (RBC) [Ratio] 15.3 % 11.6-14.6 [facility] Work Phone: Immature granulocytes/100 WBC (Bld) 0.600 % 0.0-0.9 [facility] Work Phone: Comment on above: IG% - Immature Granu locytes (promyelocytes, myelocytes and metamyelocytes) > 1% indicates that a LEFT SHIFT is Present. MCH (RBC) [Entitic mass] 30.5 pg 27.0-32.0 [facility] Work Phone: Nucleated RBC/100 WBC (Bld) [Ratio] 0 % 0-5 [facility] Work Phone: MCHC Auto (RBC) [Mass/Vol]Or dered By: Dr. Wilks on 06-06-2022 MCHC (RBC) [Mass/Vol] 31.4 g/dL 32-36 [facility] No Panel Informationon 06-06 Estimated GFR (MDRD) Amer 81 mL/min >60 [facility] Work Phone: Comment on above: GFR Calc Estimated GFR (MDRD) Non-Af Amer 67 mL/min >60 [facility] Work Phone: Comment on above: Non- GFR Calc No Panel InformationOrdered By: Dr. Wilks on 06-06-2022 30.5 pg 27.0-32.0 [facility] 15.3 % 11.6-14.6 [facility] 54.7 fl 35.1-43.9 [facility] 0.600 % 0.0-0.9 [facility] 0 % 0-5 [facility] 67 mL/min >60 [facility] 81 mL/min >60 [facility] 22.9 RATIO 10-20 [facility] 2.3 mg/dL 1.6-2.6 [facility] 27.0 mmol/L 21.0-32.0 [facility] Platelets bldOrdered By: Dr. Wilks on 06-06-2022 Platelets (Bld) [#/Vol] 280 10*3/uL 150-450 [facility] Serum or plasma calcium chay urement (mass/volume)Ordered By: Dr. Wilks on 06-06-2022 Calcium [Mass/Vol] 10.3 mg/dL 8.5-10.1 [facility] Serum or plasma creatinine m easurement (mass/volume)Ordered By: Dr. Wilks on 06-06-2022 Creatinine [Mass/Vol] 0.87 mg/dL 0.55-1.02 [facility] Comment on above: The validity of the calculated GFR & GFRAA in patients over 70 years has not been determined. Clinical correlation is essential. Serum or plasma urea nitroge n measurement (mass/volume)Ordered By: Dr. Wilks on 06-06-2022 Urea nitrogen [Mass/Vol] 20 mg/dL 7-18 [facility] Thin prep Papanicolaou smear with manual screeningOrdered By: Dr. Wilks on 06-06-2022 Thin prep Papanicolaou smear with manual screening 6 5-15 [facility] Bilirubin Test strip Ql (U)O rdered By: Dr. Wilks on 06-04-2022 Bilirubin Ql (U) Negative Negative [facility] Ketones Test strip Ql (U)Ord ered By: Dr. Wilks on 06-04-2022 Ketones Ql (U) Negative Negative [facility] Nitrite Test strip Ql (U)Ord ered By: Dr. Wilks on 06-04-2022 Nitrite Ql (U) Negative Negative [facility] Protein Test strip Ql (U)Ord ered By: Dr. Wilks on 06-04-2022 Protein Ql (U) Negative Negative [facility] Urine blood detectionOrdered By: Dr. Wilks on 06-04-2022 RBC Ql (U) 10 /ul Negative [facility] Urine clarityOrdered By: Dr. Wilks on 06-04-2022 Clarity (U) Sl. Cloudy Clear [facility] Urine color determinationOrd ered By: Dr. Wilks on 06-04-2022 Color (U) Yellow Yellow [facility] Urine glucose detectionOrder ed By: Dr. Wilks on 06-04-2022 Glucose Ql (U) Normal mg/dl Normal [facility] Urine leukocyte esterase det ection by dipstickOrdered By: Dr. Wilks on 06-04-2022 Leukocyte esterase Test strip Ql (U) 25 /ul Negative [facility] Urine pHOrdered By: Dr. Aviva ku on 06-04-2022 pH (U) 6.0 [pH] 5.0 - 8.0 [facility] Urine specific gravity measu rementOrdered By: Dr. Wilks on 06-04-2022 Specific gravity (U) [Rel density] 1.015 1.002-1.030 [facility] Urobilinogen Auto test strip Ql (U)Ordered By: Dr. Wilks on 06-04-2022 Urobilinogen Ql (U) Normal mg/dl Normal [facility] Absolute lymphocyte countOrd ered By: Dr. Wilks on 05-30-2022 Lymphocytes Auto (Unsp spec) [#/Vol] 1.50 10*3/uL 0.83-4.51 [facility] Basophil percentageOrdered B y: Dr. Wilks on 05-30-2022 Basophil percentage 83 mg/dL 74-106 [facility] Basophil percentage 137 mmol/L 136-145 [facility] Basophil percentage 4.2 mmol/L 3.5-5.1 [facility] Basophil percentage 105 mmol/L 98-107 [facility] Basophils (Bld) [#/Vol] 9.0 10*3/uL 4.4-11.0 [facility] Basophils (Bld) [#/Vol] 6.2 10*3/uL 2.0-7.7 [facility] Basophils/100 WBC (Bld) 0.8 % 0-1 [facility] Basophils/100 WBC (Bld) 69.5 % 47-70 [facility] Basophils/100 WBC (Bld) 3.6 % 0-5 [facility] Basophil percentageon 2021 Chloride [Moles/Vol] 105 mmol/L 98-107 [facility] Work Phone: Eosinophils/100 WBC (Bld) 3.6 % 0-5 [facility] Work Phone: Glucose [Mass/Vol] 83 mg/dL 74-106 [facility] Work Phone: Neutrophils (Bld) [#/Vol] 6.2 10*3/uL 2.0-7.7 [facility] Work Phone: Neutrophils/100 WBC (Bld) 69.5 % 47-70 [facility] Work Phone: Potassium [Moles/Vol] 4.2 mmol/L 3.5-5.1 [facility] Work Phone: Sodium [Moles/Vol] 137 mmol/L 136-145 [facility] Work Phone: WBC (Bld) [#/Vol] 9.0 10*3/uL 4.4-11.0 [facility] Work Phone: Blood erythrocytes count (nu mber/volume)Ordered By: Dr. Wilks on 05-30-2022 RBC (Bld) [#/Vol] 3.73 10*6/uL 4.2-5.4 [facility] Blood hemoglobin measurement (mass/volume)Ordered By: Dr. Wilks on 05-30-2022 Hemoglobin (Bld) [Mass/Vol] 11.6 g/dL 12.0-15.0 [facility] Blood lymphocytes/100 leukoc ytesOrdered By: Dr. Wilks on 05-30-2022 Lymphocytes/100 WBC (Bld) 16.7 % 19-41 [facility] Blood monocytes/100 leukocyt esOrdered By: Dr. Wilks on 05-30-2022 Monocytes/100 WBC (Bld) 8.4 % 0-10 [facility] Blood platelet mean volumeOr dered By: Dr. Wilks on 05-30-2022 Platelet mean volume (Bld) [Entitic vol] 10.2 fL 6.2-12.0 [facility] Determination of erythrocyte mean corpuscular volume (MCV)Ordered By: Dr. Wilks on 05-30-2022 MCV (RBC) [Entitic vol] 96.5 fL 81-99 [facility] Hematocrit Auto (Bld) [Volum e fraction]Ordered By: Dr. Wilks on 05-30-2022 Hematocrit (Bld) [Volume fraction] 36.0 % 37-47 [facility] Laboratory - Chemistry and C hemistry - challengeon 05-30-2022 CO2 [Moles/Vol] 24.0 mmol/L 21.0-32.0 [facility] Work Phone: Magnesium [Mass/Vol] 2.3 mg/dL 1.6-2.6 [facility] Work Phone: Urea nitrogen/Creatinine [Mass ratio] 22.1 mg/mg 10-20 [facility] Work Phone: Laboratory - Hematology and Cell countson 05-30-2022 Erythrocyte distribution width (RBC) [Entitic vol] 53.2 fL 35.1-43.9 [facility] Work Phone: Erythrocyte distribution width (RBC) [Ratio] 15.2 % 11.6-14.6 [facility] Work Phone: Immature granulocytes/100 WBC (Bld) 1.000 % 0.0-0.9 [facility] Work Phone: Comment on above: IG% - Immature Granu locytes (promyelocytes, myelocytes and metamyelocytes) > 1% indicates that a LEFT SHIFT is Present. MCH (RBC) [Entitic mass] 31.1 pg 27.0-32.0 [facility] Work Phone: Nucleated RBC/100 WBC (Bld) [Ratio] 0 % 0-5 [facility] Work Phone: MCHC Auto (RBC) [Mass/Vol]Or dered By: Dr. Wilks on 05-30-2022 MCHC (RBC) [Mass/Vol] 32.2 g/dL 32-36 [facility] No Panel Informationon 05-30 Estimated GFR (MDRD) Amer 60 mL/min >60 [facility] Work Phone: Comment on above: GFR Calc Estimated GFR (MDRD) Non-Af Amer 50 mL/min >60 [facility] Work Phone: Comment on above: Non- GFR Calc No Panel InformationOrdered By: Dr. Wilks on 05-30-2022 31.1 pg 27.0-32.0 [facility] 15.2 % 11.6-14.6 [facility] 53.2 fl 35.1-43.9 [facility] 1.000 % 0.0-0.9 [facility] 0 % 0-5 [facility] 50 mL/min >60 [facility] 60 mL/min >60 [facility] 22.1 RATIO 10-20 [facility] 2.3 mg/dL 1.6-2.6 [facility] 24.0 mmol/L 21.0-32.0 [facility] Platelets bldOrdered By: Dr. Wilks on 05-30-2022 Platelets (Bld) [#/Vol] 384 10*3/uL 150-450 [facility] Serum or plasma calcium chay urement (mass/volume)Ordered By: Dr. Wilks on 05-30-2022 Calcium [Mass/Vol] 10.7 mg/dL 8.5-10.1 [facility] Serum or plasma creatinine m easurement (mass/volume)Ordered By: Dr. Wilks on 05-30-2022 Creatinine [Mass/Vol] 1.13 mg/dL 0.55-1.02 [facility] Comment on above: The validity of the calculated GFR & GFRAA in patients over 70 years has not been determined. Clinical correlation is essential. Serum or plasma urea nitroge n measurement (mass/volume)Ordered By: Dr. Wilks on 05-30-2022 Urea nitrogen [Mass/Vol] 25 mg/dL 7-18 [facility] Thin prep Papanicolaou smear with manual screeningOrdered By: Dr. Wilks on 05-30-2022 Thin prep Papanicolaou smear with manual screening 8 5-15 [facility] Basophil percentageOrdered B y: Dr. Wilks on 05-23-2022 Basophil percentage 108 mg/dL 74-106 [facility] Basophil percentage 138 mmol/L 136-145 [facility] Basophil percentage 4.1 mmol/L 3.5-5.1 [facility] Basophil percentage 105 mmol/L 98-107 [facility] Basophils (Bld) [#/Vol] 8.9 10*3/uL 4.4-11.0 [facility] Basophil percentageon 2021 Chloride [Moles/Vol] 105 mmol/L 98-107 [facility] Work Phone: Glucose [Mass/Vol] 108 mg/dL 74-106 [facility] Work Phone: Comment on above: Fasting Glucose resu lt from 100 to 125 mg/dL suggests IMPAIRED HOMEOSTASIS per A.D.A. criteria. Potassium [Moles/Vol] 4.1 mmol/L 3.5-5.1 [facility] Work Phone: Sodium [Moles/Vol] 138 mmol/L 136-145 [facility] Work Phone: WBC (Bld) [#/Vol] 8.9 10*3/uL 4.4-11.0 [facility] Work Phone: Blood erythrocytes count (nu mber/volume)Ordered By: Dr. Wilks on 05-23-2022 RBC (Bld) [#/Vol] 3.69 10*6/uL 4.2-5.4 [facility] Blood hemoglobin measurement (mass/volume)Ordered By: Dr. Wilks on 05-23-2022 Hemoglobin (Bld) [Mass/Vol] 11.5 g/dL 12.0-15.0 [facility] Blood platelet mean volumeOr dered By: Dr. Wilks on 05-23-2022 Platelet mean volume (Bld) [Entitic vol] 10.5 fL 6.2-12.0 [facility] Determination of erythrocyte mean corpuscular volume (MCV)Ordered By: Dr. Wilks on 05-23-2022 MCV (RBC) [Entitic vol] 96.2 fL 81-99 [facility] Hematocrit Auto (Bld) [Volum e fraction]Ordered By: Dr. Wilks on 05-23-2022 Hematocrit (Bld) [Volume fraction] 35.5 % 37-47 [facility] Laboratory - Chemistry and C hemistry - challengeon 05-23-2022 CO2 [Moles/Vol] 25.0 mmol/L 21.0-32.0 [facility] Work Phone: Magnesium [Mass/Vol] 2.5 mg/dL 1.6-2.6 [facility] Work Phone: Urea nitrogen/Creatinine [Mass ratio] 30.6 mg/mg 10-20 [facility] Work Phone: Laboratory - Hematology and Cell countson 05-23-2022 Erythrocyte distribution width (RBC) [Entitic vol] 51.6 fL 35.1-43.9 [facility] Work Phone: Erythrocyte distribution width (RBC) [Ratio] 14.7 % 11.6-14.6 [facility] Work Phone: MCH (RBC) [Entitic mass] 31.2 pg 27.0-32.0 [facility] Work Phone: MCHC Auto (RBC) [Mass/Vol]Or dered By: Dr. Wilks on 05-23-2022 MCHC (RBC) [Mass/Vol] 32.4 g/dL 32-36 [facility] No Panel Informationon 09-27 -2022 Estimated GFR (MDRD) Amer 33 mL/min >60 [facility] Work Phone: Comment on above: GFR Calc Estimated GFR (MDRD) Non-Af Amer 27 mL/min >60 [facility] Work Phone: Comment on above: Non- GFR Calc No Panel InformationOrdered By: Dr. Wilks on 05-23-2022 31.2 pg 27.0-32.0 [facility] 14.7 % 11.6-14.6 [facility] 51.6 fl 35.1-43.9 [facility] 27 mL/min >60 [facility] 33 mL/min >60 [facility] 30.6 RATIO 10-20 [facility] 2.5 mg/dL 1.6-2.6 [facility] 25.0 mmol/L 21.0-32.0 [facility] Platelets bldOrdered By: Dr. Wilks on 05-23-2022 Platelets (Bld) [#/Vol] 383 10*3/uL 150-450 [facility] Serum or plasma calcium chay urement (mass/volume)Ordered By: Dr. Wilks on 05-23-2022 Calcium [Mass/Vol] 10.9 mg/dL 8.5-10.1 [facility] Serum or plasma creatinine m easurement (mass/volume)Ordered By: Dr. Wilks on 05-23-2022 Creatinine [Mass/Vol] 1.93 mg/dL 0.55-1.02 [facility] Comment on above: The validity of the calculated GFR & GFRAA in patients over 70 years has not been determined. Clinical correlation is essential. Serum or plasma urea nitroge n measurement (mass/volume)Ordered By: Dr. Wilks on 05-23-2022 Urea nitrogen [Mass/Vol] 59 mg/dL 7-18 [facility] Serum or plasma uric acid me asurement (mass/volume)Ordered By: Dr. Wilks on 05-23-2022 Urate [Mass/Vol] 8.1 mg/dL 2.6-6.0 [facility] Comment on above: The drugs N-Acetylcy steine and Metamizole may falsely depress this assay. Thin prep Papanicolaou smear with manual screeningOrdered By: Dr. Wilks on 05-23-2022 Thin prep Papanicolaou smear with manual screening 8 5-15 [facility] Absolute lymphocyte counton 05-18-2022 Lymphocytes Auto (Unsp spec) [#/Vol] 1.16 10*3/uL 0.83-4.51 [facility] Work Phone: Basophil percentageon 2021 Basophils/100 WBC (Bld) 0.7 % 0-1 [facility] Work Phone: Chloride [Moles/Vol] 105 mmol/L 98-107 [facility] Work Phone: Eosinophils/100 WBC (Bld) 4.6 % 0-5 [facility] Work Phone: Glucose [Mass/Vol] 111 mg/dL 74-106 [facility] Work Phone: Comment on above: Fasting Glucose resu lt from 100 to 125 mg/dL suggests IMPAIRED HOMEOSTASIS per A.D.A. criteria. Neutrophils (Bld) [#/Vol] 7.0 10*3/uL 2.0-7.7 [facility] Work Phone: Neutrophils/100 WBC (Bld) 72.3 % 47-70 [facility] Work Phone: Potassium [Moles/Vol] 3.8 mmol/L 3.5-5.1 [facility] Work Phone: Sodium [Moles/Vol] 138 mmol/L 136-145 [facility] Work Phone: WBC (Bld) [#/Vol] 9.6 10*3/uL 4.4-11.0 [facility] Work Phone: Blood erythrocytes count (nu mber/volume)on 05-18-2022 RBC (Bld) [#/Vol] 3.55 10*6/uL 4.2-5.4 [facility] Work Phone: Blood hemoglobin measurement (mass/volume)on 05-18-2022 Hemoglobin (Bld) [Mass/Vol] 10.8 g/dL 12.0-15.0 [facility] Work Phone: Blood lymphocytes/100 leukoc yteson 05-18-2022 Lymphocytes/100 WBC (Bld) 12.0 % 19-41 [facility] Work Phone: Blood monocytes/100 leukocyt eson 05-18-2022 Monocytes/100 WBC (Bld) 10.0 % 0-10 [facility] Work Phone: Blood platelet mean volumeon 05-18-2022 Platelet mean volume (Bld) [Entitic vol] 10.6 fL 6.2-12.0 [facility] Work Phone: Determination of erythrocyte mean corpuscular volume (MCV)on 05-18-2022 MCV (RBC) [Entitic vol] 96.3 fL 81-99 [facility] Work Phone: Hematocrit Auto (Bld) [Volum e fraction]on 05-18-2022 Hematocrit (Bld) [Volume fraction] 34.2 % 37-47 [facility] Work Phone: Laboratory - Chemistry and C hemistry - challengeon 05-18-2022 CO2 [Moles/Vol] 25.0 mmol/L 21.0-32.0 [facility] Work Phone: Cobalamin (Vitamin B12) [Mass/Vol] 909 pg/mL 211-911 [facility] Work Phone: Magnesium [Mass/Vol] 2.3 mg/dL 1.6-2.6 [facility] Work Phone: Urea nitrogen/Creatinine [Mass ratio] 30.1 mg/mg 10-20 [facility] Work Phone: Laboratory - Hematology and Cell countson 05-18-2022 Erythrocyte distribution width (RBC) [Entitic vol] 52.5 fL 35.1-43.9 [facility] Work Phone: Erythrocyte distribution width (RBC) [Ratio] 14.7 % 11.6-14.6 [facility] Work Phone: Immature granulocytes/100 WBC (Bld) 0.400 % 0.0-0.9 [facility] Work Phone: Comment on above: IG% - Immature Granu locytes (promyelocytes, myelocytes and metamyelocytes) > 1% indicates that a LEFT SHIFT is Present. MCH (RBC) [Entitic mass] 30.4 pg 27.0-32.0 [facility] Work Phone: Nucleated RBC/100 WBC (Bld) [Ratio] 0 % 0-5 [facility] Work Phone: MCHC Auto (RBC) [Mass/Vol]on 05-18-2022 MCHC (RBC) [Mass/Vol] 31.6 g/dL 32-36 [facility] Work Phone: No Panel Informationon 05-18 Estimated GFR (MDRD) Amer 40 mL/min >60 [facility] Work Phone: Comment on above: GFR Calc Estimated GFR (MDRD) Non-Af Amer 33 mL/min >60 [facility] Work Phone: Comment on above: Non- GFR Calc Vitamin D 25-Hydroxy 85.9 ng/mL [facility] Work Phone: Comment on above: Vitamin D 25(OH) Sta tus Range Deficiency <20 ng/mL (50nmol/L) Insufficiency 20 - 30 ng/mL (50 - 75 nmol/L) Sufficiency 30 - 100 ng/mL (75 - 250 nmol/L) Toxicity >100 ng/mL (>250 nmol/L) Platelets bldon 05-18-2022 Platelets (Bld) [#/Vol] 277 10*3/uL 150-450 [facility] Work Phone: Serum or plasma calcium chay urement (mass/volume)on 05-18-2022 Calcium [Mass/Vol] 10.2 mg/dL 8.5-10.1 [facility] Work Phone: Serum or plasma creatinine m easurement (mass/volume)on 05-18-2022 Creatinine [Mass/Vol] 1.63 mg/dL 0.55-1.02 [facility] Work Phone: Comment on above: The validity of the calculated GFR & GFRAA in patients over 70 years has not been determined. Clinical correlation is essential. Serum or plasma urea nitroge n measurement (mass/volume)on 05-18-2022 Urea nitrogen [Mass/Vol] 49 mg/dL 7-18 [facility] Work Phone: Thin prep Papanicolaou smear with manual screeningon 05-18-2022 Thin prep Papanicolaou smear with manual screening 8 5-15 [facility] Work Phone: Absolute lymphocyte counton 05-16-2022 Lymphocytes Auto (Unsp spec) [#/Vol] 1.09 10*3/uL 0.83-4.51 [facility] Work Phone: Basophil percentageon 2021 Basophils/100 WBC (Bld) 0.6 % 0-1 [facility] Work Phone: Chloride [Moles/Vol] 103 mmol/L 98-107 [facility] Work Phone: Eosinophils/100 WBC (Bld) 3.2 % 0-5 [facility] Work Phone: Glucose [Mass/Vol] 100 mg/dL 74-106 [facility] Work Phone: Comment on above: Fasting Glucose resu lt from 100 to 125 mg/dL suggests IMPAIRED HOMEOSTASIS per A.D.A. criteria. Neutrophils (Bld) [#/Vol] 7.2 10*3/uL 2.0-7.7 [facility] Work Phone: Neutrophils/100 WBC (Bld) 75.3 % 47-70 [facility] Work Phone: Potassium [Moles/Vol] 3.6 mmol/L 3.5-5.1 [facility] Work Phone: Sodium [Moles/Vol] 138 mmol/L 136-145 [facility] Work Phone: WBC (Bld) [#/Vol] 9.6 10*3/uL 4.4-11.0 [facility] Work Phone: Blood erythrocytes count (nu mber/volume)on 05-16-2022 RBC (Bld) [#/Vol] 3.52 10*6/uL 4.2-5.4 [facility]: Blood hemoglobin measurement (mass/volume)on 05-16-2022 Hemoglobin (Bld) [Mass/Vol] 11.3 g/dL 12.0-15.0 [facility] Work Phone: Blood lymphocytes/100 leukoc yteson 05-16-2022 Lymphocytes/100 WBC (Bld) 11.3 % 19-41 [facility] Work Phone: Blood monocytes/100 leukocyt eson 05-16-2022 Monocytes/100 WBC (Bld) 9.1 % 0-10 [facility] Work Phone: Blood platelet mean volumeon 05-16-2022 Platelet mean volume (Bld) [Entitic vol] 10.5 fL 6.2-12.0 [facility] Work Phone: Determination of erythrocyte mean corpuscular volume (MCV)on 05-16-2022 MCV (RBC) [Entitic vol] 96.9 fL 81-99 [facility] Work Phone: Hematocrit Auto (Bld) [Volum e fraction]on 05-16-2022 Hematocrit (Bld) [Volume fraction] 34.1 % 37-47 [facility] Work Phone: Laboratory - Chemistry and C hemistry - challengeon 05-16-2022 CO2 [Moles/Vol] 25.0 mmol/L 21.0-32.0 [facility] Work Phone: Cobalamin (Vitamin B12) [Mass/Vol] 615 pg/mL 211-911 [facility] Work Phone: Magnesium [Mass/Vol] 2.3 mg/dL 1.6-2.6 [facility] Work Phone: Urea nitrogen/Creatinine [Mass ratio] 18.0 mg/mg 10-20 [facility] Work Phone: Laboratory - Hematology and Cell countson 05-16-2022 Erythrocyte distribution width (RBC) [Entitic vol] 52.1 fL 35.1-43.9 [facility] Work Phone: Erythrocyte distribution width (RBC) [Ratio] 14.6 % 11.6-14.6 [facility] Work Phone: Immature granulocytes/100 WBC (Bld) 0.500 % 0.0-0.9 [facility] Work Phone: Comment on above: IG% - Immature Granu locytes (promyelocytes, myelocytes and metamyelocytes) > 1% indicates that a LEFT SHIFT is Present. MCH (RBC) [Entitic mass] 32.1 pg 27.0-32.0 [facility] Work Phone: Nucleated RBC/100 WBC (Bld) [Ratio] 0 % 0-5 [facility] Work Phone: MCHC Auto (RBC) [Mass/Vol]on 05-16-2022 MCHC (RBC) [Mass/Vol] 33.1 g/dL 32-36 [facility] Work Phone: Comment on above: Delta: 31.0 on 05/13-1455 No Panel Informationon 05-16 Estimated GFR (MDRD) Amer 80 mL/min >60 [facility] Work Phone: Comment on above: GFR Calc Estimated GFR (MDRD) Non-Af Amer 66 mL/min >60 [facility] Work Phone: Comment on above: Non- GFR Calc Vitamin D 25-Hydroxy 82.5 ng/mL [facility] Work Phone: Comment on above: Vitamin D 25(OH) Sta tus Range Deficiency <20 ng/mL (50nmol/L) Insufficiency 20 - 30 ng/mL (50 - 75 nmol/L) Sufficiency 30 - 100 ng/mL (75 - 250 nmol/L) Toxicity >100 ng/mL (>250 nmol/L) Platelets bldon 05-16-2022 Platelets (Bld) [#/Vol] 223 10*3/uL 150-450 [facility] Work Phone: Serum or plasma calcium chay urement (mass/volume)on 05-16-2022 Calcium [Mass/Vol] 10.4 mg/dL 8.5-10.1 [facility] Work Phone: Serum or plasma creatinine m easurement (mass/volume)on 05-16-2022 Creatinine [Mass/Vol] 0.89 mg/dL 0.55-1.02 [facility] Work Phone: Comment on above: The validity of the calculated GFR & GFRAA in patients over 70 years has not been determined. Clinical correlation is essential. Serum or plasma urea nitroge n measurement (mass/volume)on 05-16-2022 Urea nitrogen [Mass/Vol] 16 mg/dL 7-18 [facility] Work Phone: Thin prep Papanicolaou smear with manual screeningon 05-16-2022 Thin prep Papanicolaou smear with manual screening 10 5-15 [facility] Work Phone: No Panel Informationon 05-15 Vitamin D 25-Hydroxy 80.9 ng/mL [facility] Work Phone: Comment on above: Vitamin D 25(OH) Sta tus Range Deficiency <20 ng/mL (50nmol/L) Insufficiency 20 - 30 ng/mL (50 - 75 nmol/L) Sufficiency 30 - 100 ng/mL (75 - 250 nmol/L) Toxicity >100 ng/mL (>250 nmol/L) Basophil percentageon 2021 Basophil percentage 0 SEEN /hpf 0-5 [facility] Work Phone: Bilirubin Test strip Ql (U)o n 05-14-2022 Bilirubin Ql (U) Negative Negative [facility] Work Phone: Ketones Test strip Ql (U)on 05-14-2022 Ketones Ql (U) Negative Negative [facility] Work Phone: Mucus LM Ql (Urine sed)on Mucus Ql (Urine sed) 0 SEEN /hpf [facility] Work Phone: Nitrite Test strip Ql (U)on 05-14-2022 Nitrite Ql (U) Negative Negative [facility] Work Phone: Protein Test strip Ql (U)on 05-14-2022 Protein Ql (U) Negative Negative [facility] Work Phone: Squamous epithelial cells de tection in urine sediment by light microscopyon 05-14-2022 Epithelial cells.squamous LM Ql (Urine sed) 0 SEEN /hpf 5-10 [facility] Work Phone: Urine blood detectionon 04-27 RBC Ql (U) 10 /ul Negative [facility] Work Phone: RBC Ql (U) 0 SEEN /hpf 0-5 [facility] Work Phone: Urine clarityon 05-14-2022 Clarity (U) Clear Clear [facility] Work Phone: Urine color determinationon 05-14-2022 Color (U) Yellow Yellow [facility] Work Phone: Urine glucose detectionon Glucose Ql (U) Normal mg/dl Normal [facility] Work Phone: Urine leukocyte esterase det ection by dipstickon 05-14-2022 Leukocyte esterase Test strip Ql (U) Negative Negative [facility] Work Phone: Urine pHon 05-14-2022 pH (U) 6.0 [pH] 5.0 - 8.0 [facility] Work Phone: Urine sediment bacteria coun t by microscopy (number/high power field)on 05-14-2022 Bacteria LM.HPF (Urine sed) [#/Area] 0 /[HPF] None Seen [facility] Work Phone: Urine specific gravity measu rementon 05-14-2022 Specific gravity (U) [Rel density] 1.010 1.002-1.030 [facility] Work Phone: Urobilinogen Auto test strip Ql (U)on 05-14-2022 Urobilinogen Ql (U) Normal mg/dl Normal [facility] Work Phone: Absolute lymphocyte counton 05-13-2022 Lymphocytes Auto (Unsp spec) [#/Vol] 1.07 10*3/uL 0.83-4.51 [facility] Work Phone: Basophil percentageon 2021 Basophils/100 WBC (Bld) 0.6 % 0-1 [facility] Work Phone: Chloride [Moles/Vol] 106 mmol/L 98-107 [facility] Work Phone: Eosinophils/100 WBC (Bld) 1.5 % 0-5 [facility] Work Phone: Glucose [Mass/Vol] 100 mg/dL 74-106 [facility] Work Phone: Comment on above: Fasting Glucose resu lt from 100 to 125 mg/dL suggests IMPAIRED HOMEOSTASIS per A.D.A. criteria. Neutrophils (Bld) [#/Vol] 8.2 10*3/uL 2.0-7.7 [facility] Work Phone: Neutrophils/100 WBC (Bld) 78.8 % 47-70 [facility] Work Phone: Potassium [Moles/Vol] 3.8 mmol/L 3.5-5.1 [facility] Work Phone: Sodium [Moles/Vol] 142 mmol/L 136-145 [facility] Work Phone: WBC (Bld) [#/Vol] 10.4 10*3/uL 4.4-11.0 [facility] Work Phone: Blood erythrocytes count (nu mber/volume)on 05-13-2022 RBC (Bld) [#/Vol] 3.70 10*6/uL 4.2-5.4 [facility] Work Phone: Blood hemoglobin measurement (mass/volume)on 05-13-2022 Hemoglobin (Bld) [Mass/Vol] 11.3 g/dL 12.0-15.0 [facility] Work Phone: Blood lymphocytes/100 leukoc yteson 05-13-2022 Lymphocytes/100 WBC (Bld) 10.3 % 19-41 [facility] Work Phone: Blood monocytes/100 leukocyt eson 05-13-2022 Monocytes/100 WBC (Bld) 8.2 % 0-10 [facility] Work Phone: Blood platelet mean volumeon 05-13-2022 Platelet mean volume (Bld) [Entitic vol] 10.0 fL 6.2-12.0 [facility] Work Phone: Determination of erythrocyte mean corpuscular volume (MCV)on 05-13-2022 MCV (RBC) [Entitic vol] 98.6 fL 81-99 [facility] Work Phone: Hematocrit Auto (Bld) [Volum e fraction]on 05-13-2022 Hematocrit (Bld) [Volume fraction] 36.5 % 37-47 [facility] Work Phone: Laboratory - Chemistry and C hemistry - challengeon 05-13-2022 CO2 [Moles/Vol] 28.0 mmol/L 21.0-32.0 [facility] Work Phone: Urea nitrogen/Creatinine [Mass ratio] 19.4 mg/mg 10-20 [facility] Work Phone: Laboratory - Hematology and Cell countson 05-13-2022 Erythrocyte distribution width (RBC) [Entitic vol] 54.5 fL 35.1-43.9 [facility] Work Phone: Erythrocyte distribution width (RBC) [Ratio] 15.1 % 11.6-14.6 [facility] Work Phone: Immature granulocytes/100 WBC (Bld) 0.600 % 0.0-0.9 [facility] Work Phone: Comment on above: IG% - Immature Granu locytes (promyelocytes, myelocytes and metamyelocytes) > 1% indicates that a LEFT SHIFT is Present. MCH (RBC) [Entitic mass] 30.5 pg 27.0-32.0 [facility] Work Phone: Nucleated RBC/100 WBC (Bld) [Ratio] 0 % 0-5 [facility] Work Phone: MCHC Auto (RBC) [Mass/Vol]on 05-13-2022 MCHC (RBC) [Mass/Vol] 31.0 g/dL 32-36 [facility] Work Phone: No Panel Informationon 05-13 Estimated Creatinine Clearance Calc 45.36 ml/min [facility] Work Phone: Estimated GFR (MDRD) Amer 54 mL/min >60 [facility] Work Phone: Comment on above: GFR Calc Estimated GFR (MDRD) Non-Af Amer 45 mL/min >60 [facility] Work Phone: Comment on above: Non- GFR Calc Platelets bldon 05-13-2022 Platelets (Bld) [#/Vol] 214 10*3/uL 150-450 [facility] Work Phone: Serum or plasma calcium chay urement (mass/volume)on 05-13-2022 Calcium [Mass/Vol] 10.8 mg/dL 8.5-10.1 [facility] Work Phone: Serum or plasma creatinine m easurement (mass/volume)on 05-13-2022 Creatinine [Mass/Vol] 1.24 mg/dL 0.55-1.02 [facility] Work Phone: Comment on above: The validity of the calculated GFR & GFRAA in patients over 70 years has not been determined. Clinical correlation is essential. Serum or plasma urea nitroge n measurement (mass/volume)on 05-13-2022 Urea nitrogen [Mass/Vol] 24 mg/dL 7-18 [facility] Work Phone: Thin prep Papanicolaou smear with manual screeningon 05-13-2022 Thin prep Papanicolaou smear with manual screening 8 5-15 [facility] Work Phone: Basophil percentageon 2021 Chloride [Moles/Vol] 107 mmol/L 98-107 [facility] Work Phone: Cholesterol [Mass/Vol] 145 mg/dL <200 [facility] Work Phone: Comment on above: <200 mg/dL Desirable 200-240 mg/dL Borderline >240 mg/dL High Risk Glucose [Mass/Vol] 145 mg/dL 74-106 [facility] Work Phone: Comment on above: Fasting Glucose resu lt greater than or equal to 126 mg/dL suggests DIABETES MELLITUS per A.D.A. criteria. Potassium [Moles/Vol] 3.6 mmol/L 3.5-5.1 [facility] Work Phone: Sodium [Moles/Vol] 140 mmol/L 136-145 [facility] Work Phone: Triglyceride [Mass/Vol] 81 mg/dL <199 [facility] Work Phone: Comment on above: The drugs N-Acetylcy steine and Metamizole may falsely depress this assay.Serum Triglycerides Reference Interval Normal <150 mg/dL Borderline high 150 - 199 mg/dL High 200 - 499 mg/dL Very High > or = 500 mg/dL WBC (Bld) [#/Vol] 6.2 10*3/uL 4.4-11.0 [facility] Work Phone: Blood erythrocytes count (nu mber/volume)on 04-03-2022 RBC (Bld) [#/Vol] 3.81 10*6/uL 4.2-5.4 [facility] Work Phone: Blood hemoglobin measurement (mass/volume)on 04-03-2022 Hemoglobin (Bld) [Mass/Vol] 11.9 g/dL 12.0-15.0 [facility] Work Phone: Blood platelet mean volumeon 04-03-2022 Platelet mean volume (Bld) [Entitic vol] 9.9 fL 6.2-12.0 [facility] Work Phone: Determination of erythrocyte mean corpuscular volume (MCV)on 04-03-2022 MCV (RBC) [Entitic vol] 96.3 fL 81-99 [facility] Work Phone: Hematocrit Auto (Bld) [Volum e fraction]on 04-03-2022 Hematocrit (Bld) [Volume fraction] 36.7 % 37-47 [facility] Work Phone: Laboratory - Chemistry and C hemistry - challengeon 04-03-2022 CO2 [Moles/Vol] 29.0 mmol/L 21.0-32.0 [facility] Work Phone: Magnesium [Mass/Vol] 2.5 mg/dL 1.6-2.6 [facility] Work Phone: Urea nitrogen/Creatinine [Mass ratio] 22.8 mg/mg 10-20 [facility] Work Phone: Laboratory - Hematology and Cell countson 04-03-2022 Erythrocyte distribution width (RBC) [Entitic vol] 53.6 fL 35.1-43.9 [facility] Work Phone: Erythrocyte distribution width (RBC) [Ratio] 15.2 % 11.6-14.6 [facility] Work Phone: MCH (RBC) [Entitic mass] 31.2 pg 27.0-32.0 [facility] Work Phone: MCHC Auto (RBC) [Mass/Vol]on 04-03-2022 MCHC (RBC) [Mass/Vol] 32.4 g/dL 32-36 [facility] Work Phone: No Panel Informationon 04-03 Estimated GFR (MDRD) Amer 60 mL/min >60 [facility] Work Phone: Comment on above: GFR Calc Estimated GFR (MDRD) Non-Af Amer 49 mL/min >60 [facility] Work Phone: Comment on above: Non- GFR Calc Platelets bldon 04-03-2022 Platelets (Bld) [#/Vol] 268 10*3/uL 150-450 [facility] Work Phone: Serum or plasma calcium chay urement (mass/volume)on 04-03-2022 Calcium [Mass/Vol] 10.3 mg/dL 8.5-10.1 [facility] Work Phone: Serum or plasma cholesterol in HDL measurement (mass/volume)on 04-03-2022 Cholesterol in HDL [Mass/Vol] 67 mg/dL >40 [facility] Work Phone: Comment on above: The drugs N-Acetylcy steine and Metamizole may falsely depress this assay. Reference Range HDL <40 mg/dL Low HDL Cholesterol HDL >or= 60 mg/dL High HDL Cholesterol Serum or plasma cholesterol in VLDL measurement (mass/volume)on 04-03-2022 Cholesterol in VLDL [Mass/Vol] 16 mg/dL 5-40 [facility] Work Phone: Serum or plasma creatinine m easurement (mass/volume)on 04-03-2022 Creatinine [Mass/Vol] 1.14 mg/dL 0.55-1.02 [facility] Work Phone: Comment on above: The validity of the calculated GFR & GFRAA in patients over 70 years has not been determined. Clinical correlation is essential. Serum or plasma low density lipoprotein (LDL) cholesterol measurement (mass/volume)on 04-03-2022 Cholesterol in LDL [Mass/Vol] 62 mg/dL 0-130 [facility] Work Phone: Serum or plasma urea nitroge n measurement (mass/volume)on 04-03-2022 Urea nitrogen [Mass/Vol] 26 mg/dL 7-18 [facility] Work Phone: Thin prep Papanicolaou smear with manual screeningon 04-03-2022 Thin prep Papanicolaou smear with manual screening 4 5-15 [facility] Work Phone: Absolute lymphocyte counton 02-06-2022 Lymphocytes Auto (Unsp spec) [#/Vol] 1.14 10*3/uL 0.83-4.51 [facility] Work Phone: Basophil percentageon 2021 Basophils/100 WBC (Bld) 0.7 % 0-1 [facility] Work Phone: Eosinophils/100 WBC (Bld) 5.6 % 0-5 [facility] Work Phone: Neutrophils (Bld) [#/Vol] 4.6 10*3/uL 2.0-7.7 [facility] Work Phone: Neutrophils/100 WBC (Bld) 67.5 % 47-70 [facility] Work Phone: WBC (Bld) [#/Vol] 6.8 10*3/uL 4.4-11.0 [facility] Work Phone: Blood erythrocytes count (nu mber/volume)on 02-06-2022 RBC (Bld) [#/Vol] 3.89 10*6/uL 4.2-5.4 [facility] Work Phone: Blood hemoglobin measurement (mass/volume)on 02-06-2022 Hemoglobin (Bld) [Mass/Vol] 12.0 g/dL 12.0-15.0 [facility] Work Phone: Blood lymphocytes/100 leukoc yteson 02-06-2022 Lymphocytes/100 WBC (Bld) 16.7 % 19-41 [facility] Work Phone: Blood monocytes/100 leukocyt eson 02-06-2022 Monocytes/100 WBC (Bld) 8.9 % 0-10 [facility] Work Phone: Blood platelet mean volumeon 02-06-2022 Platelet mean volume (Bld) [Entitic vol] 10.7 fL 6.2-12.0 [facility] Work Phone: Determination of erythrocyte mean corpuscular volume (MCV)on 02-06-2022 MCV (RBC) [Entitic vol] 98.2 fL 81-99 [facility] Work Phone: Hematocrit Auto (Bld) [Volum e fraction]on 02-06-2022 Hematocrit (Bld) [Volume fraction] 38.2 % 37-47 [facility] Work Phone: Laboratory - Hematology and Cell countson 02-06-2022 Erythrocyte distribution width (RBC) [Entitic vol] 53.9 fL 35.1-43.9 [facility] Work Phone: Erythrocyte distribution width (RBC) [Ratio] 15.0 % 11.6-14.6 [facility] Work Phone: Immature granulocytes/100 WBC (Bld) 0.600 % 0.0-0.9 [facility] Work Phone: Comment on above: IG% - Immature Granu locytes (promyelocytes, myelocytes and metamyelocytes) > 1% indicates that a LEFT SHIFT is Present. MCH (RBC) [Entitic mass] 30.8 pg 27.0-32.0 [facility] Work Phone: Nucleated RBC/100 WBC (Bld) [Ratio] 0 % 0-5 [facility] Work Phone: MCHC Auto (RBC) [Mass/Vol]on 02-06-2022 MCHC (RBC) [Mass/Vol] 31.4 g/dL 32-36 [facility] Work Phone: Platelets bldon 02-06-2022 Platelets (Bld) [#/Vol] 220 10*3/uL 150-450 [facility] Work Phone: Basophil percentageon 2021 Chloride [Moles/Vol] 107 mmol/L 98-107 [facility] Work Phone: Cholesterol [Mass/Vol] 178 mg/dL <200 [facility] Work Phone: Comment on above: <200 mg/dL Desirable 200-240 mg/dL Borderline >240 mg/dL High Risk Glucose [Mass/Vol] 106 mg/dL 74-106 [facility] Work Phone: Comment on above: Fasting Glucose resu lt from 100 to 125 mg/dL suggests IMPAIRED HOMEOSTASIS per A.D.A. criteria. Potassium [Moles/Vol] 3.9 mmol/L 3.5-5.1 [facility] Work Phone: Sodium [Moles/Vol] 141 mmol/L 136-145 [facility] Work Phone: Triglyceride [Mass/Vol] 93 mg/dL <199 [facility] Work Phone: Comment on above: The drugs N-Acetylcy steine and Metamizole may falsely depress this assay.Serum Triglycerides Reference Interval Normal <150 mg/dL Borderline high 150 - 199 mg/dL High 200 - 499 mg/dL Very High > or = 500 mg/dL WBC (Bld) [#/Vol] 7.9 10*3/uL 4.4-11.0 [facility] Work Phone: Blood erythrocytes count (nu mber/volume)on 01-02-2022 RBC (Bld) [#/Vol] 4.32 10*6/uL 4.2-5.4 [facility] Work Phone: Blood hemoglobin measurement (mass/volume)on 01-02-2022 Hemoglobin (Bld) [Mass/Vol] 13.3 g/dL 12.0-15.0 [facility] Work Phone: Blood platelet mean volumeon 01-02-2022 Platelet mean volume (Bld) [Entitic vol] 10.7 fL 6.2-12.0 [facility] Work Phone: Determination of erythrocyte mean corpuscular volume (MCV)on 01-02-2022 MCV (RBC) [Entitic vol] 96.3 fL 81-99 [facility] Work Phone: Hematocrit Auto (Bld) [Volum e fraction]on 01-02-2022 Hematocrit (Bld) [Volume fraction] 41.6 % 37-47 [facility] Work Phone: Laboratory - Chemistry and C hemistry - challengeon 01-02-2022 CO2 [Moles/Vol] 26.0 mmol/L 21.0-32.0 [facility] Work Phone: Magnesium [Mass/Vol] 2.4 mg/dL 1.6-2.6 [facility] Work Phone: Urea nitrogen/Creatinine [Mass ratio] 24.5 mg/mg 10-20 [facility] Work Phone: Laboratory - Hematology and Cell countson 01-02-2022 Erythrocyte distribution width (RBC) [Entitic vol] 52.5 fL 35.1-43.9 [facility] Work Phone: Erythrocyte distribution width (RBC) [Ratio] 14.7 % 11.6-14.6 [facility] Work Phone: MCH (RBC) [Entitic mass] 30.8 pg 27.0-32.0 [facility] Work Phone: MCHC Auto (RBC) [Mass/Vol]on 01-02-2022 MCHC (RBC) [Mass/Vol] 32.0 g/dL 32-36 [facility] Work Phone: No Panel Informationon 01-02 Estimated GFR (MDRD) Amer 48 mL/min >60 [facility] Work Phone: Comment on above: GFR Calc Estimated GFR (MDRD) Non-Af Amer 39 mL/min >60 [facility] Work Phone: Comment on above: Non- GFR Calc Platelets bldon 01-02-2022 Platelets (Bld) [#/Vol] 249 10*3/uL 150-450 [facility] Work Phone: Serum or plasma calcium chay urement (mass/volume)on 01-02-2022 Calcium [Mass/Vol] 10.2 mg/dL 8.5-10.1 [facility] Work Phone: Serum or plasma cholesterol in HDL measurement (mass/volume)on 01-02-2022 Cholesterol in HDL [Mass/Vol] 63 mg/dL >40 [facility] Work Phone: Comment on above: The drugs N-Acetylcy steine and Metamizole may falsely depress this assay. Reference Range HDL <40 mg/dL Low HDL Cholesterol HDL >or= 60 mg/dL High HDL Cholesterol Serum or plasma cholesterol in VLDL measurement (mass/volume)on 01-02-2022 Cholesterol in VLDL [Mass/Vol] 19 mg/dL 5-40 [facility] Work Phone: Serum or plasma creatinine m easurement (mass/volume)on 01-02-2022 Creatinine [Mass/Vol] 1.39 mg/dL 0.55-1.02 [facility] Work Phone: Comment on above: The validity of the calculated GFR & GFRAA in patients over 70 years has not been determined. Clinical correlation is essential. Serum or plasma low density lipoprotein (LDL) cholesterol measurement (mass/volume)on 01-02-2022 Cholesterol in LDL [Mass/Vol] 96 mg/dL 0-130 [facility] Work Phone: Serum or plasma urea nitroge n measurement (mass/volume)on 01-02-2022 Urea nitrogen [Mass/Vol] 34 mg/dL 7-18 [facility] Work Phone: Thin prep Papanicolaou smear with manual screeningon 01-02-2022 Thin prep Papanicolaou smear with manual screening 8 5-15 [facility] Work Phone: Absolute lymphocyte counton 09-26-2021 Lymphocytes Auto (Unsp spec) [#/Vol] 1.40 10*3/uL 0.83-4.51 [facility] Work Phone: Basophil percentageon 2021 Basophils/100 WBC (Bld) 1.2 % 0-1 [facility] Work Phone: Bilirubin [Mass/Vol] 0.30 mg/dL 0.20-1.00 [facility] Work Phone: Comment on above: For patients on eltr ombopag therapy, use of Dimension [place] TBIL is not recommended. Chloride [Moles/Vol] 106 mmol/L 98-107 [facility] Work Phone: Eosinophils/100 WBC (Bld) 6.7 % 0-5 [facility] Work Phone: Glucose [Mass/Vol] 116 mg/dL 74-106 [facility] Work Phone: Comment on above: Fasting Glucose resu lt from 100 to 125 mg/dL suggests IMPAIRED HOMEOSTASIS per A.D.A. criteria. Neutrophils (Bld) [#/Vol] 3.3 10*3/uL 2.0-7.7 [facility] Work Phone: Neutrophils/100 WBC (Bld) 57.2 % 47-70 [facility] Work Phone: Potassium [Moles/Vol] 3.6 mmol/L 3.5-5.1 [facility] Work Phone: Protein [Mass/Vol] 7.1 g/dL 6.4-8.2 [facility] Work Phone: Sodium [Moles/Vol] 139 mmol/L 136-145 [facility] Work Phone: WBC (Bld) [#/Vol] 5.8 10*3/uL 4.4-11.0 [facility] Work Phone: Blood erythrocytes count (nu mber/volume)on 09-26-2021 RBC (Bld) [#/Vol] 4.07 10*6/uL 4.2-5.4 [facility] Work Phone: Blood hemoglobin measurement (mass/volume)on 09-26-2021 Hemoglobin (Bld) [Mass/Vol] 12.3 g/dL 12.0-15.0 [facility] Work Phone: Blood lymphocytes/100 leukoc yteson 09-26-2021 Lymphocytes/100 WBC (Bld) 24.0 % 19-41 [facility] Work Phone: Blood monocytes/100 leukocyt eson 09-26-2021 Monocytes/100 WBC (Bld) 10.4 % 0-10 [facility] Work Phone: Blood platelet mean volumeon 09-26-2021 Platelet mean volume (Bld) [Entitic vol] 10.7 fL 6.2-12.0 [facility] Work Phone: Determination of erythrocyte mean corpuscular volume (MCV)on 09-26-2021 MCV (RBC) [Entitic vol] 97.3 fL 81-99 [facility] Work Phone: Hematocrit Auto (Bld) [Volum e fraction]on 09-26-2021 Hematocrit (Bld) [Volume fraction] 39.6 % 37-47 [facility] Work Phone: Laboratory - Chemistry and C hemistry - challengeon 09-26-2021 ALP [Catalytic activity/Vol] 55 U/L 45-117 [facility] Work Phone: ALT [Catalytic activity/Vol] 17 U/L 13-56 [facility] Work Phone: CO2 [Moles/Vol] 27.0 mmol/L 21.0-32.0 [facility] Work Phone: Globulin (S) [Mass/Vol] 3.8 g/dL 2.2-4.2 [facility] Work Phone: Magnesium [Mass/Vol] 2.5 mg/dL 1.6-2.6 [facility] Work Phone: Urea nitrogen/Creatinine [Mass ratio] 29.7 mg/mg 10-20 [facility] Work Phone: Laboratory - Hematology and Cell countson 09-26-2021 Erythrocyte distribution width (RBC) [Entitic vol] 53.7 fL 35.1-43.9 [facility] Work Phone: Erythrocyte distribution width (RBC) [Ratio] 15.0 % 11.6-14.6 [facility] Work Phone: Immature granulocytes/100 WBC (Bld) 0.500 % 0.0-0.9 [facility] Work Phone: Comment on above: IG% - Immature Granu locytes (promyelocytes, myelocytes and metamyelocytes) > 1% indicates that a LEFT SHIFT is Present. MCH (RBC) [Entitic mass] 30.2 pg 27.0-32.0 [facility] Work Phone: Nucleated RBC/100 WBC (Bld) [Ratio] 0 % 0-5 [facility] Work Phone: MCHC Auto (RBC) [Mass/Vol]on 09-26-2021 MCHC (RBC) [Mass/Vol] 31.1 g/dL 32-36 [facility] Work Phone: No Panel Informationon 09-26 Estimated GFR (MDRD) Amer 62 mL/min >60 [facility] Work Phone: Comment on above: GFR Calc Estimated GFR (MDRD) Non-Af Amer 51 mL/min >60 [facility] Work Phone: Comment on above: Non- GFR Calc Platelets bldon 09-26-2021 Platelets (Bld) [#/Vol] 253 10*3/uL 150-450 [facility] Work Phone: Serum or plasma albumin chay urement (mass/volume)on 09-26-2021 Albumin [Mass/Vol] 3.3 g/dL 3.2-5.0 [facility] Work Phone: Serum or plasma albumin/glob ulin mass ratioon 09-26-2021 Albumin/Globulin [Mass ratio] 0.9 {ratio} 0.9-2.4 [facility] Work Phone: Serum or plasma calcium chay urement (mass/volume)on 09-26-2021 Calcium [Mass/Vol] 10.3 mg/dL 8.5-10.1 [facility] Work Phone: Serum or plasma creatinine m easurement (mass/volume)on 09-26-2021 Creatinine [Mass/Vol] 1.11 mg/dL 0.55-1.02 [facility] Work Phone: Comment on above: The validity of the calculated GFR & GFRAA in patients over 70 years has not been determined. Clinical correlation is essential. Serum or plasma urea nitroge n measurement (mass/volume)on 09-26-2021 Urea nitrogen [Mass/Vol] 33 mg/dL 7-18 [facility] Work Phone: Thin prep Papanicolaou smear with manual screeningon 09-26-2021 Thin prep Papanicolaou smear with manual screening 14 U/L 15-37 [facility] Work Phone: Thin prep Papanicolaou smear with manual screening 6 5-15 [facility] Work Phone: OT Bone Density DEXA Axial S keletonon 12-05-2018 OT Bone Density DEXA Axial Skeleton Patient Name: KAMILAH MCKEON Bone Density Exam Date/Time 12/05/2018 09:14:55 EDT Exam OT Bone Density DEXA Axial Skeleton Ordering Physician MD CARY, YESIKA HARRIS Accession Number [id number] CPT4 Codes 20760 () Reason For Exam age-related osteoporosis without current pathological fracture Report DXA BONE DENSITOMETRY: CLINICAL INDICATION: Asymptomatic post-menopausal status. Screening for osteoporosis. COMPARISON: 11/30/2016 TECHNIQUE: Quantitative bone mineral densitometry of the hip and lumbar spine was performed with a dual energy x-ray observed absorptiometry device - [email or web address] at some institutions, [email or web address] at others. Regions of interest were obtained through the proximal femur and compared to the normal value of young adult women. Regions of interest were also obtained through the lumbar vertebrae with an average value determined and compared to the normal value of young adult women. The difference between your measured bone density and the bone density of a normal young woman is expressed in standard deviations as the T score. Similarly, your measured bone density is also compared to age and race matched values, and expressed in standard deviations as the Z score. According to World Health Organization criteria: T-score of -1.0 or higher is normal. T-score between -1.1 to < -2.5 is low bone density or osteopenia. T-score of -2.5 or lower is abnormally low, compatible with osteoporosis. T-score of -2.5 or less plus fragility fracture indicates severe osteoporosis. FINDINGS: Femoral neck LEFT Density: 0.681 g/cm2 T-score: -1.5 Z-score: 0.4 Total Hip LEFT Density: 0.727 g/cm2 T-score: -1.8 Z-score: -0.2 Comparison from prior examination: The bone mineralization has improved when compared to the prior study. Spine: L1-L4 Density 0.942 g/cm2 T-score: -1.0 Z-score: 1.3 Comparison from prior examination: The bone mineralization has improved when compared to the prior study. IMPRESSION: 1. Osteopenia. 2. The bone mineralization has improved when compared to the prior study. FRACTURE RISK: The estimated 10 year risk for a hip fracture is 1.6% and for a major osteoporosis-relate d fracture is 10%. (FRAX web version 3.11). RECOMMENDATIONS: General recommendations for prevention of bone loss include: 4318-8467 mg calcium intake per day for adults >50yrs, and no history of renal calculi 800-1000 IU of vitamin D3 per day for adults >50yrs, and no history of renal calculi Weight bearing exercise Discontinue smoking Avoid excessive use of caffeine, soft drinks, and alcoholic beverages In addition, balance training and fall prevention programs can help reduce the risk of fractures Pharmacologic treatment recommendations: Initiate pharmacologic treatment in patients with hip or vertebral fracture. In those with T scores spine by DXA In postmenopausal women and men age 50 or older with low bone mass (T score between -1.0 and -2.5 [osteopenia]) at the femoral neck, total hip, or lumbar spine by DXA have a 10 year hip fracture probability >/= 3% or a 10 year major osteoporosis-relate d fracture probability >/= 20% based on the [place]-adapted WHO fracture risk model (FRAX). Current FDA-approved pharmacologic options for osteoporosis treatment include bisphosphonates (Fosamax), ibandronate (Boniva), risedronate (Actonel), zoledronic acid (Reclast), estrogens and other hormonal therapies (Evista), parathyroid hormone (Forteo), and denosumab (Prolia). Initiation of pharmacologic therapy should happen only after thorough medical evaluation, discussion of risks and benefits, and with regular monitoring of the therapeutic regimen. Follow-up recommendations: Patients with osteoporosis or or at high risk for fracture should have follow-up bone density tests. For Medicare patients, routine testing is allowed every 2 years. Patients who have low bone mass (T score -2.0 to -2.49), who are currently on treatment for low bone mass, or having risk factors for accelerated bone loss (glucocorticoids, aromatase inhibitors, etc.), consider repeat DXA in 1-2 years. Patients with osteopenia and no risk factors may consider follow-up every 3-5 years. References: National Osteoporosis Foundation. Clinician's Guide to Prevention and Treatment of Osteoporosis. Osteoporosis International. Mustafa, 2014. DXA Scan Screening, Reporting (FRAX Score) and Follow-up. [place] of Knowledge Evidence - based Summaries. Formerly [facility] [employer] for Education and Research 2017. Report Dictated on Workstation: [employer] Final Dictating Physician: MD SOLOMON JEFFREY Signed Date and Time: 12/05/2018 9:53 am Signed by: MD SOLOMON JEFFREY Transcribed Date and Time: 12/05/2018 9:54 Normal [facility] MG Breast Tomosynthesis Scr Blon 06-10-2018 MG Breast Tomosynthesis Scr Bl Patient Name: KAMILAH MCKEON Mammography Exam Date/Time 06/10/2018 11:56:45 EDT Exam MG Breast Tomosynthesis BI Scr Ordering Physician MD CARY, YESIKA HARRIS Accession Number [id number] CPT4 Codes 19300 (MG Breast Tomosynthesis Scr Bl), 24417 (MG MAMMO 2D SCREENING) Reason For Exam screening Report PATIENT HISTORY: Patient is postmenopausal and is nulliparous. Family history of breast cancer at age 53 in mother, colorectal cancer at age 50 or over in paternal grandmother, colorectal cancer at age 50 or over in father. Benign ultrasound-guided core biopsy of the right breast, 1999. Took hormonal contraceptives for 1 year. Took estrogen for 1 year. Patient is a former smoker. Patient's BMI is 31.2. TIME SINCE LAST MAMMOGRAM: Last mammogram was performed 1 year ago. REASON FOR EXAM: screening, asymptomatic. PROCEDURE: MG BREAST TOMOSYNTHESIS BL SCR: JUNE 10, 2018 - 2D/3D Procedure 3D Bilateral CC and MLO view(s) were taken. 2D Bilateral CC and MLO view(s) were taken. Prior study comparison: June 08, 2017, bilateral MG breast tomosynthesis bl scr performed at [facility]. May 11, 2016, bilateral screening mammogram performed at [facility]. April 28, 2015, bilateral screening mammogram performed at [facility]. May 20, 2014, bilateral screening mammogram, performed at [facility]. May 19, 2013, bilateral screening mammogram, performed at [facility]. May 16, 2012, bilateral screening mammogram, performed at [facility]. TISSUE DENSITY: There are scattered fibroglandular densities. . FINDINGS: No suspicious masses, architectural distortions or suspiciously clustered microcalcifications are identified. There are no significant changes when compared with prior studies. Markings on images: BB's = Nipples; skin lesions Open soboba = Palpable Line = Scar 2D digital mammography and tomosynthesis imaging were performed and reviewed with CAD. ASSESSMENT: Category 1 Negative No mammographic evidence of malignancy. RECOMMENDATION: Routine screening mammogram of both breasts in 1 year. . Report Dictated on Cancer Risk Assessment: This risk assessment is based on patient provided information collected in a risk survey taken at the time of this examination. Lifetime breast cancer risk: 7.7% - If greater than or equal to 20%, consider annual mammogram and annual screening Breast MRI or follow up in high risk clinic. Is the patient at elevated risk based on the HBOC criteria? No (Hereditary Breast and Ovarian Cancer) - If yes, consider genetic counseling and testing with high risk follow up. HNPCC mutation risk (Velasco Syndrome): 22.7% - if greater than or equal to 5%, consider genetic counseling, testing and screening colonoscopy. Final Signed Date and Time: 06/10/2018 1:13 pm Signed by: MD MCADAMS KERISTEN L Normal [facility] US Venous Extremity LT lower on 02-04-2018 US Venous Extremity LT lower Patient Name: KAMILAH MCKEON Ultrasound Exam Date/Time 02/04/2018 16:20:19 EDT Exam US Venous Extremity LT lower Ordering Physician SAGRARIO TRAORE HOLLY S Accession Number [id number] CPT4 Codes 24287 (US Venous Extremity LT lower) Reason For Exam LEG SWELLING, PAIN, DVT SUSPECTED Report CLINICAL INFORMATION: Left lower extremity pain and swelling. History of deep venous thrombosis. Duplex Doppler ultrasound left lower extremity: The right and left common femoral veins are patent. There is echogenicity and loss of compressibility of the left superficial femoral, popliteal, gastrocnemius, posterior tibial and peroneal veins consistent with deep venous thrombosis. The left deep femoral and greater saphenous veins remain patent. IMPRESSION: Deep venous thrombosis in the left superficial femoral, popliteal, gastrocnemius, posterior tibial and peroneal veins. A preliminary report of the above findings was called to the referring physician by the senior medical technologist following completion of the examination. Report Dictated on Final Dictating Physician: MD FONTAINE HARLAN Signed Date and Time: 02/04/2018 5:31 pm Signed by: MD FONTAINE HARLAN Transcribed Date and Time: 02/04/2018 5:32 [facility] COVID-19 virus antigen assay SARS-CoV-2 (COVID-19) Ag IA.rapid Ql (Resp) [facility] Work Phone: Culture, urine Bacteria identified Cx Nom (U) Mixed Gram Pos & Gram Neg Org [facility] Work Phone: Vital Signs Date Time Vital Sign Value Performing Clinician Faci lity 08-23-2022 11:15-0500 Body temperature 97.9 [degF] Dr. Gerda Wilks [facility] 08-23-2022 11:15-0500 Diastolic blood pressure 77 mm[Hg] Dr. Gerda Wilks [facility] 08-23-2022 11:15-0500 Heart rate 77 /min Dr. Gerda Wilks [facility] 08-23-2022 11:15-0500 Respiratory rate 16 /min Dr. Gerda Wilks [facility] 08-23-2022 11:15-0500 SaO2% (BldA) [Mass fraction] 93 % Dr. Gerda Wilks [facility] 08-23-2022 11:15-0500 Systolic blood pressure 128 mm[Hg] Dr. Gerda Wilks [facility] 08-23-2022 09:22-0500 Body height 144.[address] Gerda Wilks [facility] 08-23-2022 09:22-0500 Body mass index (BMI) [Ratio] 31.6 kg/m2 Dr. Gerda Wilks [facility] 08-23-2022 09:22-0500 Body weight 66.[address] [facility] 07-10-2022 08:35-0500 Body temperature 97.4 [facility]degF[facility]-10-2022 08:35-0500 Diastolic blood [facility] 64 mm[facility]-10-[facility]22 08:35-0500 Heart rate 88 /[facility] 07-10-2022 08:35-0500 Respiratory rate 16 /[facility] 07-10-2022 08:35-0500 SaO2% (BldA) [Mass fraction] 95 % [facility] 07-10-2022 08:35-0500 Systolic blood pressure 116 mm[Hg] Dr. Gerda Wilks [facility] 07-10-2022 03:49-0500 Body weight 68.[address] [facility] 07-09-2022 13:44-0500 Body height 144.[address] [facility] Work Phone: 07-08-2022 14:17-0500 Body mass index (BMI) [Ratio] 34.2 kg/m2 Dr. Gerda Wilks [facility] 07-08-2022 11:00-0500 Body height 144.[address] Gerda Wilks [facility] Work Phone: 07-08-2022 11:00-0500 Body mass index (BMI) [Ratio] 35.4 kg/m2 [facility] 07-08-2022 11:00-0500 Body temperature 97.7 [degF] Dr. Gerda iWlks [facility] Work Phone: 07-08-2022 11:00-0500 Body weight 74.[address] [facility] Work Phone: 07-08-2022 11:00-0500 Diastolic blood pressure 68 mm[Hg[facility] 07-08-2022 11:00-0500 Heart rate 89 /min Dr. Lorenz [facility] Work Phone: 07-08-2022 11:00-0500 Respiratory rate 16 /[facility] 07-08-2022 11:00-0500 SaO2% (BldA) [Mass fraction] 94 % [facility]: 07-08-2022 11:00-0500 Systolic blood pressure 93 mm[Hg] [facility] 06-29-2022 05:28-0400 Diastolic blood pressure 46 mm[Hg] Dr. Gerda Wilks [facility] 06-29-2022 05:28-0400 Heart rate 95 /min [facility] 06-29-2022 05:28-0400 Respiratory rate 15 /min Dr. Gerda Gudla [facility] 06-29-2022 05:28-0400 SaO2% (BldA) [Mass fraction] 94 % Dr. Gerda Wilks [facility] 06-29-2022 05:28-0400 Systolic blood pressure 111 mm[Hg] Dr. Gerda Wilks [facility] 06-28-2022 23:44-0400 Body height 144.[address] Gerda Wilks [facility] Work Phone: 06-28-2022 23:44-0400 Body mass index (BMI) [Ratio] 35.2 kg/m2 Dr. Gerda Wilks [facility] 06-28-2022 23:44-0400 Body temperature 97.6 [degF] Dr. Gerda Wilks [facility] 06-28-2022 23:44-0400 Body weight 73.[address] [facility] 05-15-2022 13:49-0400 Body temperature 98.1 [degF] [facility]: 05-15-2022 13:49-0400 Diastolic blood pressure 57 mm[Hg[facility]: 05-15-2022 13:49-0400 Heart rate 88 /[facility] Work Phone: 05-15-2022 13:49-0400 Respiratory rate 18 /[facility]: 05-15-2022 13:49-0400 SaO2% (BldA) [Mass fraction] 98 % [facility]: 05-15-2022 13:49-0400 Systolic blood pressure 113 mm[Hg] [facility] Work [facility]: 05-13-2022 18:21-0400 Body height 144.[address] Gerda Wilks [facility] Work Phone: 05-13-2022 18:21-0400 Body mass index (BMI) [Ratio] 34 kg/m2 Dr. Gerda Wilks [facility] Work Phone: 05-13-2022 18:21-0400 Body weight 71.[address] Gerda Wilks [facility] Work Phone: 05-13-2022 16:35-0400 Body temperature 98.5 [degF] Dr. Gerda Wilks [facility] Work Phone: 05-13-2022 16:35-0400 Diastolic blood pressure 88 mm[Hg] Dr. Gerda Wilks [facility] Work Phone: 05-13-2022 16:35-0400 Heart rate 102 /[facility] Work Phone: 05-13-2022 16:35-0400 Respiratory rate 20 /[facility]: 05-13-2022 16:35-0400 SaO2% (BldA) [Mass fraction] 95 % [facility] Work [facility]: 05-13-2022 16:35-0400 Systolic blood pressure 117 mm[Hg] Dr. Gerda Wilks [facility] Work Phone: 05-13-2022 14:27-0400 Body height 144.[address] Gerda Wilks [facility] Work Phone: 05-13-2022 14:27-0400 Body mass index (BMI) [Ratio] 34.9 kg/m2 Dr. Gerda Wilks [facility] Work Phone: 05-13-2022 14:27-0400 Body weight 73.[address] Gerda Wilks [facility] Work Phone: 2022 12:38-0400 Respiratory rate 18 /min [facility] Work Phone: 2022 10:20-0400 Body height 144.78 cm [facility] Work Phone: 2022 10:20-0400 Body mass index (BMI) [Ratio] 36.4 kg/m2 [facility] Work Phone: 2022 10:20-0400 Body temperature 97.8 [degF] [facility] Work Phone: 2022 10:20-0400 Body weight 76.4 kg [facility] Work Phone: 2022 10:20-0400 Diastolic blood pressure 73 mm[Hg] [facility] Work Phone: 2022 10:20-0400 Heart rate 83 /min [facility] Work Phone: 2022 10:20-0400 SaO2% (BldA) [Mass fraction] 96 % [facility] Work Phone: 2022 10:20-0400 Systolic blood pressure 132 mm[Hg] [facility] Work Phone: 09-26-2021 18:28-0500 Body height 162.56 cm [facility] Work Phone: 09-26-2021 18:28-0500 Body mass index (BMI) [Ratio] 30 kg/m2 [facility] Work Phone: 09-26-2021 18:28-0500 Body temperature 98.6 [degF] [facility] Work Phone: 09-26-2021 18:28-0500 Body weight 79.4 kg [facility] Work Phone: 09-26-2021 18:28-0500 Diastolic blood pressure 56 mm[Hg] [facility] Work Phone: 09-26-2021 18:28-0500 Heart rate 93 /min [facility] Work Phone: 09-26-2021 18:28-0500 Respiratory rate 20 /min [facility] Work Phone: 09-26-2021 18:28-0500 SaO2% (BldA) [Mass fraction] 95 % [facility] Work Phone: 09-26-2021 18:28-0500 Systolic blood pressure 138 mm[Hg] [facility] Work Phone: Encounters Encounter Date Encounter Type Care Provider Facility Start: 08-15-2024 End: 08-15-2024 ambulatory Kendell Yo OLS Facility:[facility] Start: 07-09-2024 End: 07-10-2024 Emergency department patient visit Eduardo Gilmore Facility:[facility] Start: 06-16-2024 End: 06-16-2024 ambulatory Gerda Gudla OLS Facility:[facility] Start: 05-21-2024 End: 05-21-2024 ambulatory Gerda Gudla OLS Facility:[facility] Start: 05-16-2024 End: 05-16-2024 ambulatory Gerda Gudla OLS Facility:[facility] Start: 04-18-2024 ambulatory Greda Gudla OLS Facili ty:[facility] Start: 03-21-2024 End: 03-21-2024 ambulatory Gerda Gudla OLS Facility:[facility] Start: 03-07-2024 End: 03-07-2024 ambulatory ENEDINA CANCHOLA Neurology Comment on above: EMG Start: 03-07-2024 End: 03-07-2024 Patient encounter procedure Emg 1 Neur Nick Eubanks (Max Weight: 850) Neurology Start: 02-22-2024 ambulatory Gerda Gudla OLS Facili ty:[facility] Start: 12-03-2023 Telephone encounter Katina Bruno MD Work Phone: Neurology Comment on above: Blood Thinner Instru ctions for EMG Testing Start: 11-29-2023 End: 11-29-2023 ambulatory ENEDINA CANCHOLA Facility:[facility] Start: 11-29-2023 End: 11-29-2023 Patient encounter procedure Enedina Canchola PA-C Work Phone: Orthopaedics Comment on above: Carpal tunnel syndro me of right wrist (Primary Dx); Disturbance of skin sensation Start: 11-02-2023 End: 11-02-2023 ambulatory [facility] Work Phone: Start: 11-02-2023 End: 11-02-2023 Departed [facility]erred [facility] Start: 11-01-2023 End: 11-01-2023 ambulatory [facility] Work Phone: Start: 11-01-2023 End: 11-01-2023 Departed [facility] Start: 11-01-2023 Registered Referred [facility] Start: 10-15-2023 End: 10-15-2023 ambulatory [facility] Work Phone: Start: 10-15-2023 End: 10-15-2023 Departed [facility] Start: 10-05-2023 End: 10-05-2023 Departed [facility] Start: 09-07-2023 End: 09-07-2023 ambulatory [facility] Work Phone: Start: 09-07-2023 End: 09-07-2023 Departed [facility] Start: 09-07-2023 Registered Referred [facility] Start: 09-06-2023 End: 09-06-2023 ambulatory [facility] Work Phone: Start: 09-06-2023 End: 09-06-2023 Patient encounter procedure [facility] Work Phone: Start: 08-08-2023 End: 08-08-2023 ambulatory [facility] Work Phone: Start: 08-08-2023 End: 08-08-2023 Departed [facility] Start: 07-23-2023 End: 07-23-2023 ambulatory ENEDINA CANCHOLA Facility:[facility] Start: 07-23-2023 End: 07-23-2023 Subsequent hospital visit by physician Radio Vaughan [facility] Work Phone: Radiology Comment on above: Pain [R52] Start: 07-12-2023 End: 07-12-2023 ambulatory [facility] Work Phone: Start: 07-12-2023 End: 07-12-2023 Departed [facility] Start: 07-12-2023 Registered [facility]erred [facility] Start: 07-05-2023 End: 07-05-2023 ambulatory [facility] Work Phone: Start: 07-05-2023 End: 07-05-2023 Departed [facility] Start: 06-26-2023 Orders Only Enedina perry PA-C Work Phone: [facility] Comment on above: Pain (Primary Dx) Start: 06-14-2023 End: 06-14-2023 ambulatory [facility] Work Phone: Start: 06-14-2023 End: 06-14-2023 Departed [facility] Start: 05-17-2023 End: 05-17-2023 Departed [facility] Start: 05-17-2023 Registered [facility]erred [facility] Start: 04-19-2023 End: 04-19-2023 ambulatory [facility] Work Phone: Start: 04-19-2023 End: 04-19-2023 Departed [facility] Start: 04-19-2023 Registered [facility]erred [facility] Start: 03-22-2023 End: 03-22-2023 ambulatory [facility] Work Phone: Start: 03-22-2023 End: 03-22-2023 Departed [facility] Start: 02-22-2023 Registered [facility]erred [facility] Start: 01-25-2023 End: 01-25-2023 ambulatory [facility] Work Phone: Start: 01-25-2023 End: 01-25-2023 Departed [facility] Start: 01-01-2023 End: 01-01-2023 ambulatory [facility] Work Phone: Start: 01-01-2023 End: 01-01-2023 Patient encounter procedure [facility] Start: 12-28-2022 End: 12-28-2022 Departed [facility] Start: 12-28-2022 Registered [facility] Start: 11-30-2022 End: 11-30-[address] Gerda Wilks [facility] Work Phone: Start: 11-30-2022 End: 11-30-[address] Gerda Wilks [facility] Start: 10-30-2022 End: 10-30-[address] Gerda Wilks [facility] Work Phone: Start: 10-30-2022 End: 10-30-[address] Gerda Wilks [facility] Start: 10-30-[address] Gerda Wilks [facility] Start: [facility] Start: 10-17-2022 End: 10-17-[address] Gerda Wilks [facility] Work Phone: Start: 10-17-2022 End: 10-17-[address] Gerda Wilks [facility] Start: 10-17-[address] Gerda Wilks [facility] Start: 10-17-2022 Dr. Gerda Wilks [facility] Start: 10-10-2022 End: 10-10-[address] [facility] Start: 10-10-2022 End: 10-10-[address] Gerda Wilks [facility] Start: 10-10-2022 Dr. Gerda Wilks [facility] Start: 10-04-2022 End: 10-04-[address] [facility] Start: 10-04-2022 End: 10-04-[address] Gerda Wilks [facility] Start: 10-04-2022 End: 10-04-2022 Dr. Gerda Wilks [facility] Start: 10-03-2022 End: 10-03-[address] [facility] Start: 10-03-2022 End: 10-03-[address] Gerda Wilks [facility] Start: 10-03-2022 End: 10-03-2022 Dr. Gerda Wilks [facility] Start: 09-26-2022 End: 09-26-[address] [facility] Start: 09-26-2022 End: 09-26-[address] Gerda Wilks [facility] Start: 09-26-2022 End: [facility]: 09-19-2022 End: 09-19-[address] [facility] Start: 09-19-2022 End: [facility] Start: 09-12-2022 End: 09-12-[address] [facility] Start: 09-12-2022 End: 09-12-[address] [facility] Start: 09-12-2022 End: 09-12-2022 [facility] Start: 09-05-2022 End: 09-05-[address] [facility] Start: 09-05-2022 End: 09-05-[address] Gerda Wilks [facility] Start: 09-05-[address] [facility] Start: 09-05-2022 End: 09-05-2022 [facility] Start: 08-29-2022 End: 08-29-[address] [facility] Start: 08-29-2022 End: 08-29-[address] [facility] Start: 08-29-[address] [facility] Start: 08-29-2022 End: 08-29-2022 Dr. Gerda Wilks [facility] Start: 08-23-2022 Non-patient / Non-visit Dr. Gerda gentile [facility] Start: 08-23-2022 End: 08-23-2022 Admission to same day surgery center Dr. Gerda Wilks [facility] Start: 08-23-2022 End: 08-23-[address] Gerda Wilks [facility] Work Phone: Start: 08-23-2022 End: 08-23-2022 Dr. Gerda Wilks [facility] Start: 08-22-2022 End: 08-22-[address] Gerda Wilks [facility] Work Phone: Start: 08-22-2022 End: 08-22-[address] Gerda Wilks [facility] Start: 08-22-[address] [facility] Start: 08-22-2022 End: 08-22[facility]2022 [facility] Start: 08-15-2022 End: 08-15-[address] [facility] Start: 08-15-[address] Gerda Wilks [facility] Start: 08-15-2022 End: 08-15-2022 [facility] Start: 08-08-2022 End: 08-08-[address] [facility] Start: 08-08-2022 End: 08-08-[address] [facility] Start: 08-08-[address] [facility] Start: 08-08-2022 End: 08-08-2022 Dr. Gerda Wilks [facility] Start: 08-01-2022 End: 08-01-[address] Gerda Wilks [facility] Start: 08-01-[address] [facility] Start: 08-01-2022 End: 08-01-2022 Dr. Greda Wilks [facility] Start: 07-25-2022 End: 07-25-[address] [facility] Start: 07-25-2022 End: 07-25-[address] Gerda Wilks [facility] Start: 07-25-[address] Gerda Wilks [facility] Start: 07-25-2022 End: 07-25-2022 Dr. Gerda Wilks [facility] Start: 07-24-2022 End: 07-24-[address] Gerda Wilks [facility] Start: 07-24-2022 End: 07-24-2022 Dr. Gerda Wilks [facility] Start: 07-18-2022 End: 07-18-[address] Gerda Wilks [facility] Work Phone: Start: 07-18-2022 End: 07-18-[address] Gerda Wilks [facility] Start: 07-18-[address] [facility] Start: 07-18-2022 End: 07-18-2022 Dr. Gerda Wilks [facility] Start: 07-11-2022 End: 07-11-[address] [facility] Start: 07-11-2022 End: 07-11-[address] Gerda Wilks [facility] Start: 07-11-2022 End: 07-11-2022 Dr. Gerda Wilks [facility] Start: 07-10-2022 Non-patient / Non-visit Dr. Gerda Jenkins [facility] Start: 07-10-[address] [facility] Start: 07-09-2022 Non-patient / Non-visit Dr. Gerda Jenkins [facility] Start: 07-09-[address] [facility] Start: 07-09-2022 Non-patient / Non-visit Dr. Gerda Jenkins [facility] Start: 07-09-2022 Dr. Gerda Wilks [facility] Start: 07-08-2022 Non-patient / Non-visit Dr. Gerda Jenkins [facility] Start: 07-08-2022 End: 07-10-2022 Evaluation and management of inpatient Dr. Gerda Wilks [facility]Pro[facility] Start: 07-08-2022 End: 07-10-[address] [facility] Start: 07-08-2022 End: 07-10-2022 [facility] Start: 07-03-2022 End: 07-03-[address] [facility] Start: 07-03-[address] Gerda Wilks [facility] Start: 07-03-2022 End: 07-03[facility]2022 [facility] Start: 06-28-2022 End: 06-29-2022 Emergency department patient visit Dr. Gerda Wilks [facility] Start: 06-28-2022 End: 06-29-2022 Dr. Gerda Wilks [facility] Start: 06-26-[address] Gerda Wilks [facility] Start: 06-26-2022 Dr. Gerda Wilks [facility] Start: 06-21-[address] [facility] Start: 06-21-2022 Dr. Gerda Wilks [facility] Start: 06-20-[address] Gerda Wilks [facility] Start: 06-20-2022 Dr. Gerda Wilks [facility] Start: 06-13-2022 End: 06-13-[address] Gerda Wilks [facility] Work Phone: Start: 06-13-2022 End: 06-13-[address] Gerda Wilks [place] [id number] Start: 06-13-[address] [place] [id number] Start: 06-13-2022 End: 06-13-2022 Dr. Gerda Wilks [place] [address] Start: 06-06-2022 End: 06-06-[address] [facility] Start: 06-06-2022 End: 06-06-[address] Gerda Wilks [facility] Start: 06-06-2022 End: [facility]-06[facility]20[facility] Start: 06-04-2022 End: 06-04-[address] Gerda Wilks [facility] Start: 06-04-[address] [facility] [id number] Start: 06-04-2022 End: 06-04-2022 Dr. Gerda Wilks [facility] Start: 05-30-[address] Gerda Wilks [facility] Start: 05-30-2022 Dr. Gerda Wilks [facility] Start: 05-23-[address] [place] [address] Start: 05-23-2022 Dr. Gerda Wilks [facility] Start: 05-18-[address] Gerda Wilks [place] [address] Start: 05-16-[address] [facility] Start: 05-15-2022 Non-patient / Non-visit Dr. Gerda Jenkins [facility] Start: 05-14-2022 Non-patient / Non-visit Dr. Gerda Jenkins [facility] Start: 05-13-2022 Non-patient / Non-visit Dr. Gerda Jenkins [facility] Start: 05-13-2022 End: 05-15-2022 Evaluation and management of inpatient Dr. Gerda Wilks [facility]Medical Surgical 3 Start: 05-13-2022 End: 05-15-[address] [facility] Start: 04-06-2022 End: 04-06-2022 Patient encounter procedure [facility] Start: 04-03-2022 End: 04-03-2022 Departed Referred [facility] Start: 2022 End: 2022 Emergency department patient visit [facility] Start: 02-06-2022 End: 02-06-2022 Departed Referred [facility] Start: 02-06-2022 Registered [place] [facility] Start: 01-02-2022 End: 01-02-2022 Departed Referred [facility] Start: 12-15-2021 End: 12-15-2021 Patient encounter procedure [facility]Outpatient Breast Imaging Start: 09-26-2021 End: 09-26-2021 Emergency department patient visit [facility] Start: 09-26-2021 Registered Referred [facility] Start: 12-05-2018 Patient encounter procedure Yesika [employer] [facility] Start: 06-10-2018 Patient encounter procedure [facility] [facility] Start: 02-04-2018 Patient encounter procedure UNKNOWN PROVIDER [facility] [facility] Procedures Date Procedure Procedure Detail Performing Clinician Start: 03-07-2024 Nerve conduction anival dies 5-6 studies Enedina [employer] Work Phone: Start: 07-23-2023 Radex wrist complete minimum 3 views Enedina Canchola PA-C Work Phone: Start: 01-01-2023 Screening mammography Start: 01-01-2023 CT cervical spine wi thout contrast Start: 08-23-[address] Gerda Wilks Start: 06-29-2022 CT cervical spine wi thout contrast Dr. Gerda Wilks Start: 06-29-2022 CT of head without contrast Dr. Gerda Wilks Start: 05-13-[address] Fortino Wilks Start: 05-13-2022 CT of head without contrast Dr. Gerda Wilks Start: 04-06-2022 MRI of joint of lowe r extremity Start: 2022 Plain X-ray of shoulder Start: 12-15-2021 Screening mammography Start: 09-26-2021 CT cervical spine wi thout contrast Start: 09-26-2021 CT of head without contrast Urine culture Dr. Gerda gregory Urine culture Dr. Gerda gregory Viral antigen assay Dr. Melani Wilks Viral antigen assay Dr. Melani Wilks Plan of Treatment Date Care Activity Detail Author Start: 01-30-2027 Urine microalbumin profile DTaP,Tdap,Td Vaccine (2 - Td or Tdap) [facility] Start: 04-27-2024 Covid-19 Vaccine ( season) Covid-19 Vaccine () [facility] Start: 04-27-2024 Influenza vaccination C [facility] Start: 01-12-2024 Covid-19 Vaccine () Covid-19 Vaccine () [facility] Start: 08-27-2023 Advance Directive Discussion Advance Directive Discussion [facility] Start: 08-27-2023 Behavioral Health Screening Behavioral Health Screening [facility] Start: 04-27-2023 Influenza vaccination Influenza Vacc ine (#1) [facility] Start: 03-30-2023 Diabetes Screening Diabetes Screenin g [facility] Start: 08-27-2022 Advance Directive Discussion Advance Directive Discussion [facility] Start: 08-27-2022 Depression Assessment Depression Ass essment [facility] Start: 08-23-2022 Colsc flx w/rmvl of tumor polyp lesion snare tq [facility] Start: 08-23-2022 Patient discharge [facility] Start: 07-10-2022 Patient discharge [facility] Start: 07-10-2022 Referral to occupati onal therapist [facility] Start: 07-10-2022 Referral to service [facility] Start: 07-08-2022 Following clinical pathway protocol [facility] Start: 07-08-2022 Referral to general surgeon [facility] Start: 07-08-2022 Following clinical pathway protocol [facility] Start: 07-08-2022 Assessment of risk o f venous thromboembolism [facility] Start: 07-08-2022 Catheterization of vein [facility] Start: 07-08-2022 Insertion of cathete r into peripheral vein [facility] Start: 07-08-2022 Measuring intake and output [facility] Start: 07-08-2022 Providing care accor ding to [facility] Start: 07-08-2022 Provision of activit y privileges [facility] Start: 07-08-2022 [facility] Start: 07-08-2022 Admission procedure [facility] Start: 07-08-2022 [facility] Work Phone: Start: 07-08-2022 Patient referral to dietitian [facility] Start: 06-28-2022 Smpl repair scalp/neck/ax/genit/trunk 2.6-7.5cm [facility] Start: 05-15-2022 Patient discharge [facility] Work Phone: Start: 05-14-2022 Following clinical pathway protocol [facility] Work Phone: Start: 05-13-2022 Assessment of risk o f venous thromboembolism [facility] Work Phone: Start: 05-13-2022 Catheterization of vein [facility] Work Phone: Start: 05-13-2022 Insertion of cathete r into peripheral vein [facility] Work Phone: Start: 05-13-2022 Providing care accor ding to [facility] Work Phone: Start: 05-13-2022 Provision of activit y privileges [facility] Work Phone: Start: 05-13-2022 Referral to occupati onal therapist [facility] Work Phone: Start: 05-13-2022 Referral to water vessel captain [facility] Work Phone: Start: 05-13-2022 Referral to service [facility] Work Phone: Start: 05-13-2022 [facility] Work Phone: Start: 05-13-2022 Verification routine [facility] Work Phone: Start: 05-13-2022 Admission procedure [facility] Work Phone: Start: 05-13-2022 Therapeutic injectio n iv push each new drug TX/PRO/DX INJ NEW DRUG ADDON [facility] Work Phone: Start: 05-13-2022 [facility] Work Phone: Start: 02-19-2012 Bone Density Screening Bone Density Screening [facility] Start: 02-19-2012 Pneumococcal Vaccine : 65+ (1 - PCV) Pneumococcal Vaccine: 65+ (1 - PCV) [facility] Start: 02-19-2012 Screening for osteoporosis Bone Density Screening [facility] Start: 2007 RSV Vaccine (1 - 1-d ose 60+ series) RSV Vaccine (1 - 1-dose 60+ series) [facility] Start: 1997 Shingrix Vaccine (1 of 2) Anaya grix Vaccine (1 of 2) [facility] Start: 02-19-1992 Diabetes Screening Diabetes Screenin g [facility] Start: 1966 Urine microalbumin profile DTaP,Tdap,Td Vaccine (1 - Tdap) [facility] Start: 1965 Anxiety Screening Anxiety Screening [facility] Start: 1965 Depression Screening Depression Scre [facility] Start: 1965 Hepatitis C Screening Hepatitis C [facility] Start: 1965 Hepatitis C screening Hepatitis C [facility] Start: 1947 Covid-19 Vaccine (#1) Covid-19 Vacci ne (#1) [facility] Bilirubin measuremen t, urine [facility] Work Phone: End: 11-28-2024 EMG(NEURO/NI) EMG(NEURO/NI) EMG Routine Carpal tunnel syndrome of right wrist Disturbance of skin sensation 1 Occurrences starting 11/29/2023 until 11/28/2024 [facility] Work Phone: Comment on above: 1 Occurrences starti ng 11/29/2023 until 11/28/2024 Hematocrit [Volume Fraction] of Blood [facility] Work Phone: Hemoglobin [Mass/vol ume] in Blood [facility] Work Phone: Hemoglobin [Presence ] in Urine [facility] Work Phone: Leukocytes [#/volume ] in Blood [facility] Work Phone: Mean corpuscular hemoglobin concentration determination [facility] Work Phone: Mean corpuscular hemoglobin determination [facility] Work Phone: Measurement of keton es in urine using dipstick [facility] Work Phone: Microscopic urinalysis [facility] Work Phone: Neutrophil count [facility] Work Phone: Neutrophil percent differential count [facility] Work Phone: Patient Education [facility] Work Phone: Patient referral [facility] Work Phone: pH of Urine [facility] Work Phone: Platelets [#/volume] in Blood [facility] Work Phone: Red blood cell count [facility] Work Phone: Red cell distributio n width determination [facility] Work Phone: Specific gravity of Urine [facility] Work Phone: Urinalysis, blood, qualitative [facility] Work Phone: Urine dipstick for glucose [facility] Work Phone: Urine dipstick for leukocyte esterase [facility] Work Phone: Urine dipstick for nitrite [facility] Work Phone: Urine dipstick for protein [facility] Work Phone: Urine examination [facility] Work Phone: Urine microscopy: epithelial cells [facility] Work Phone: Urine Microscopy: wh ite cells [facility] Work Phone: Urobilinogen [Presen ce] in Urine [facility] Work Phone: End: 07-25-2024 XR WRIST GENERAL 3V PA/LAT/OBL RIGHT XR WRIST GENERAL 3V PA/LAT/OBL RIGHT Radiology Routine Pain 1 Occurrences starting 06/26/2023 until 07/25/2024 [facility] Work Phone: Comment on above: 1 Occurrences starti ng 06/26/2023 until 07/25/2024 Zinc [Mass/volume] i n Serum or Plasma [facility] Immunizations Immunization Date Immunization Notes Care Provider Fa cility 07-09-2022 influenza, injectabl e, quadrivalent, preservative free [facility] 07-09-2022 influenza, seasonal, injectable Dr. Gerda Wilks [facility] 07-09-2022 influenza virus vaccine, unspecified formulation Enedina Canchola PA-C Work Phone: [facility] Payers Date Payer Category Payer Medicaid [id number] 2024 Self-pay [id number] 2023 Medicaid [facility] MEDICA[facility] [employer] [facility] MEDICA[facility] [id number] 2023-Present [phone] [address] [place] [address] Medicaid [id number] 2023 Medicare [facility] MEDIC[facility] [employer] PPO [id number] 2023-Present [phone] [address] [address] [place] [address] PPO [id number] 2023 Unknown [id number] 2023 Unknown [id number] 1945 Unknown [id number] 1945 Unknown [id number] 1945 Unknown [id number] Medicare [id number] Private Health Insurance [id number] Unknown Unknown [id number] Unknown [id number] Unknown [id number] Unknown [id number] Unknown [id number] Unknown [id number] Unknown [id number] Unknown [id number] Unknown [id number] Social History Date Type Detail Facility Start: 09-26-2021 End: 08-22-2022 Tobacco smoking status ORIS Unknown if ever smoked [facility] Start: 1945 Sex Assigned At Female [facility] Start: 1945 Sex Assigned At Not on file [facility] Start: 07-23-2023 End: 11-29-2023 Gender identity Not on file [facility] Start: 07-23-2023 Tobacco smoking status NHIS Never smoked tobacco [facility] Start: 07-23-2023 Tobacco use and exposure Former smokeless tobacco user [facility] Start: 07-23-2023 End: 11-29-2023 History of Social function [facility] National Score (1-100), lower number is lower risk 93 [facility] NEGATED: Highlighted row [facility] Goals Date Patient Goal Desired Activity /State Functional Status Date Assessment Result Facility 07-10-2022 Functional status Bedpan [facility] Work Phone: 05-15-2022 Functional status Bedrest [facility] Work Phone: Mental Status Date Assessment Result Facility 08-23-2022 Cognitive function Voice/Name [facility] Work Phone: 07-10-2022 Cognitive function Voice/Name [facility] Work Phone: 05-15-2022 Cognitive function Voice/Name;Touch/Shaki ng [facility] Work Phone: 05-15-2022 Cognitive function Comprehension Ability Demonstrates ability to follow instructions/comprehend [facility] Work Phone: Clinical Notes 07-23-2023 to 03-07-2024 Rubio Pena DO - 03/07/2024 11:42 AM EDTTelephone Simin - Laz Martínez - 12/03/2023 1:23 PM Enedina Gibson PA-C - 11/29/2023 11:28 AM EDT Note Date & Type Note Facility 03-07-2024 Note HNO ID: [id number] Author: RUBIO PENA DO Service: ? Author Type: Physician Type: Progress Notes Filed: 03/07/2024 11:44 Note Text: UNIVERSAL PROTOCOL / SAFETY CHECKLIST Procedure to be Performed: EMG Sign In: A Moment of CARE was completed. Personnel directly involved with the procedure wore the appropriate PPE (Personal Protective Equipment). Patient/Surrogate Stated/Verified: PATIENT VERIFIED(optional for EMERGENT procedures): Patient name, Date of , Relevant allergies, and The intended procedure Time Out Communication: Intended patient and procedure match the source documents. Correct side/site marked and visible. Sign Out: SIGN OUT (optional for EMERGENT procedures): Post-procedure follow-up management communicated and Plan of Care Visit completed when applicable. Rubio Pena DO [facility] 03-07-2024 History of Presen t illness Narrative UNIVERSAL PROTOCOL / SAFETY CHECKLIST Procedure to be Performed: EMG Sign In: A Moment of CARE was completed. Personnel directly involved with the procedure wore the appropriate PPE (Personal Protective Equipment). Patient/Surrogate Stated/Verified: PATIENT VERIFIED(optional for EMERGENT procedures): Patient name, Date of , Relevant allergies, and The intended procedure Time Out Communication: Intended patient and procedure match the source documents. Correct side/site marked and visible. Sign Out: SIGN OUT (optional for EMERGENT procedures): Post-procedure follow-up management communicated and Plan of Care Visit completed when applicable. Rubio Pena DO documented in this encounter [facility] 12-03-2023 Miscellaneous Notes Formattin g of this note might be different from the original. Spoke to Sandra at [facility] 12/03/23. Xarelto to be held for 24 hours prior to EMG testing with approval from prescribing physician. Laz Perez (Karissa) documented in this encounter [facility] 11-29-2023 Note HNO ID: [id number] Author: ENEDINA CANCHOLA PA-C Service: ? Author Type: Physician Hammer Heater Type: Progress Notes Filed: 11/29/2023 11:31 Note Text: Enedina Canchola PA-C Established Patient Department of Orthopaedics Orthopaedics [address] [place] [address] Dept: [phone] November 29, 2023 SUBJECTIVE: CHIEF COMPLAINT: Follow Up, Pain, and Numbness of the Right Hand HPI: Ms. Kamilah Mckeon is a 78 year old RHD female. She was last seen in the office on 07/23/2023 where a right wrist carpal tunnel injection was administered. She presents today for follow up. She states that her right 2nd and 3rd digits are completely numb. She got only minimal relief from the injection administered at her last appointment. She has continued to wear her braces at night with some relief. She denies any recent injury. Past Medical History: History reviewed. No pertinent [...] HPI Psych: no depression, anxiety OBJECTIVE: Ms. Kamilah Mckeon is a pleasant 78 year old in no apparent distress. Gen:There were no vitals taken for this visit. nl development, obese, no deformities ENT: Normocephalic, normal hearing, moist mucosa CV: Pulses:Radial= 2+ and symmetric, capillary refill < 2 secs, no peripheral edema/varicosities Skin: no rash, bruising or lesions. Good turgor. Psych: cooperative and appropriate, alert and oriented x 3, good mood and affect. Musculoskeletal: Hand and wrist non-tender to palpation. There is evidence of thenar wasting. Decreased sensation on palmar aspect of first and second digit. Phalen's: postive Tinel's: negative Final Operations Technician strength: 5/5 IMAGING: Not indicated ASSESSMENT: G56.01 Carpal tunnel syndrome of right wrist (primary encounter diagnosis) R20.9 Disturbance of skin sensation PLAN: Given her history of spinal trauma recommendation is EMG for persistent skin disturbation. Patient agreeable with plan. Advised I will call her to go over results and arrange appropriate follow up. FOLLOW UP INSTRUCTIONS: As appropriate after EMG Enedina Canchola PA-C [facility] 11-29-2023 History of Presen t illness Narrative Enedina Canchola PA-C Established Patient Department of Orthopaedics Orthopaedics [address] [place], [place] [id number] Dept: [phone] November 29, 2023 SUBJECTIVE: CHIEF COMPLAINT: Follow Up, Pain, and Numbness of the Right Hand HPI: Ms. Kamilah Mckeon is a 78 year old RHD female. She was last seen in the office on 07/23/2023 where a right wrist carpal tunnel injection was administered. She presents today for follow up. She states that her right 2nd and 3rd digits are completely numb. She got only minimal relief from the injection administered at her last appointment. She has continued to wear her braces at night with some relief. She denies any recent injury. Past Medical History: History reviewed. No pertinent [...] HPI Psych: no depression, anxiety OBJECTIVE: Ms. Kamilah Mckeon is a pleasant 78 year old in no apparent distress. Gen:There were no vitals taken for this visit. nl development, obese, no deformities ENT: Normocephalic, normal hearing, moist mucosa CV: Pulses:Radial= 2+ and symmetric, capillary refill < 2 secs, no peripheral edema/varicosities Skin: no rash, bruising or lesions. Good turgor. Psych: cooperative and appropriate, alert and oriented x 3, good mood and affect. Musculoskeletal: Hand and wrist non-tender to palpation. There is evidence of thenar wasting. Decreased sensation on palmar aspect of first and second digit. Phalen's: postive Tinel's: negative Final Operations Technician strength: 5/5 IMAGING: Not indicated ASSESSMENT: G56.01 Carpal tunnel syndrome of right wrist (primary encounter diagnosis) R20.9 Disturbance of skin sensation PLAN: Given her history of spinal trauma recommendation is EMG for persistent skin disturbation. Patient agreeable with plan. Advised I will call her to go over results and arrange appropriate follow up. FOLLOW UP INSTRUCTIONS: As appropriate after EMG Enedina Canchola PA-C documented in this encounter [facility] 07-23-2023 Note HNO ID: [id number] Author: Enedina Canchola PA-C Service: ? Author Type: Physician Hammer Heater Type: Progress Notes Filed: 07/24/2023 2:47 PM Note Text: Enedina Canchola PA-C Department of Orthopaedics Orthopaedics [address] [place] [address] Dept: [phone] July 23, 2023 SUBJECTIVE: CHIEF COMPLAINT: Pain and New of the Right Wrist HPI: Ms. Kamilah Mckeon is a 78 year old right hand [...] HPI Psych: no depression, anxiety OBJECTIVE: Ms. Kamilah Mckeon is a pleasant 78 year old in [...] and 3rd digit Phalen's: postive Tinel's: negative Final Operations Technician strength: 5/5 IMAGIN07/23/2023 4:08 PM - Radiology, [place] In Impression IMPRESSION: Findings as discussed in results portion of report Hvac Journeyman: GERMAINE Transcribe Date/Time: Jul 23 2023 4:04P Dictated by : WALTER BRODY DO This examination was interpreted and the report reviewed and electronically signed by: WALTER BRODY DO on Jul 23 2023 4:06PM EST Results-Findings * * *Final Report* * * DATE OF EXAM: Jul 23 2023 1:23PM CHRISTINE [id number] - XR WRIST 3V PA/LAT/OBL RT / PROCEDURE REASON: [id number] * * * * Physician Interpretation * [...] tunnel syndrome Informed Consent Consent Obtained: Verbal [place] Prot (more content not included)... [facility] 07-23-2023 Note HNO ID: [id number] Author: Belkys Plata Tech Service: ? Author Type: Digital Technician Type: Progress Notes Filed: 07/23/2023 1:35 PM Note Text: Radiology Service Progress Note PATIENT NAME: Kamilah Mckeon DATE OF SERVICE: July 23, 2023 TIME: [...] Karissa Gill July 23, 2023 1:34 PM [facility] 07-23-2023 History of Presen t illness Narrative Radiology Service Progress Note PATIENT NAME: Kamilah Mckeon DATE OF SERVICE: July 23, 2023 TIME: [...] Karissa Gill July 23, 2023 1:34 PM documented in this encounter [facility] Evaluation note No assessment inform ation available [facility] Work Phone: Evaluation note Diagnosis Onset Date Ankle fracture, right acute Contusion of face acute Fall acute [facility] Work Phone: Evaluation note* Diagnosis Onset Date Resolution Status Acute right ankle pain acute Ankle fracture, right acute Contusion of face acute Difficulty walking acute Fall acute [facility] Work Phone: Evaluation note* Diagnosis Onset Date Resolution Status Ankle fracture, right acute Difficulty walking acute Contusion of face resolved Fall resolved [facility] Work Phone: Evaluation note* Diagnosis Onset Date Resolution Status Ankle fracture, right acute Difficulty walking acute Contusion of face resolved Fall resolved Acute lower gastrointestinal bleeding acute Anticoagulated acute Visit for suture removal acu [facility] Work Phone: Evaluation note* Diagnosis Onset Date Resolution Status Ankle fracture, right acute Difficulty walking acute Contusion of face resolved Fall resolved Acute lower gastrointestinal bleeding acute Anticoagulated acute [facility]ipation [facility]* Diagnosis Onset Date Resolution Status Ankle fracture, right acute Difficulty walking acute Contusion of face resolved Fall resolved Acute lower gastrointestinal bleeding resolved Visit for suture removal res olved [facility] Work Phone: Evaluation note* Diagnosis Onset Date Resolution Status Ankle fracture, right acute Difficulty walking acute Contusion of face resolved Fall resolved Anticoagulated acute Constipation acute Acute lower gastrointestinal bleeding resolved Visit for suture removal res olved Anticoagulated acute Constipation acute Rectal bleeding acute [facility] Work Phone: Evaluation note* Diagnosis Onset Date Resolution Status Anticoagulated acute Constipation acute Acute lower gastrointestinal bleeding resolved Visit for suture removal res olved Anticoagulated acute Constipation acute Rectal bleeding acute [facility] Work Phone: Evaluation note* Diagnosis Pain- Primary Generalized pain documented in this encounter [facility] note* Diagnosis Carpal tunnel syndrome of right wrist- Primary Carpal tunnel syndrome Disturbance of skin sensation documented in this encounter [facility] note* Diagnosis Median nerve lesion, right- Primary Carpal tunnel syndrome of right wrist Carpal tunnel syndrome Disturbance of skin sensation Paresthesia of skin Disturbance of skin sensation documented in this encounter [facility] note* Diagnosis Pain Generalized pain documented in this encounter [facility] for referral (narrative)* Diagnostic Procedure Only (Routine) - Authorized Specialty Diagnoses / Procedures Referred By Cherise calderón Referred To Contact XR IMAGING Diagnoses Pain Procedures XR WRIST GENERAL 3V PA/LAT/OBL RIGHT RADEX WRIST COMPLETE MINIMUM 3 VIEWS Enedina Canchola PA-C [address] [place] [address] [place] [id number] Referral ID Status Reason Start Date Expiration Date Visits Requested Visits Authorized [id number] Authorized Auto-Generat ed Referral 3 07/25/2024 1 1 [facility] for referral (narrative)* Outpatient Procedure (Routine) - Pending Review Specialty Diagnoses / Procedures Referred By Cherise calderón Referred To Contact [facility] Diagnoses Carpal tunnel syndrome of right wrist Disturbance of skin sensation Procedures EMG(NEURO/NI) NERVE CONDUCTION STUDIES 9-10 STUDIES Enedina Canchola PA-C [address] [place] [address] [facility] [address] [place] [address] Referral ID Status Reason Start Date Expiration Date Visits Requested Visits Authorized [id number] Pending Review Auto-Generat ed Referral 11/29/2023 11/28/2024 1 1 [facility] for referral (narrative)* Diagnostic Procedure Only (Routine) - Closed Specialty Diagnoses / Procedures Referred By Contac t Referred To Contact XR IMAGING Diagnoses Pain Procedures XR WRIST GENERAL 3V PA/LAT/OBL RIGHT RADEX WRIST COMPLETE MINIMUM 3 VIEWS Enedina Canchola PA-C [address] [place] [address] [place] [id number] Referral ID Status Reason Start Date Expiration Date V isits Requested Visits Authorized [id number] Closed Auto-Generate d Referral 06/26/2023 07/25/2024 1 1 [facility] for visit Narrative* Diagnostic Procedure Only (Routine) - Closed Specialty Diagnoses / Procedures Referred By Contdanielle t Referred To Contact XR IMAGING Diagnoses Pain Procedures XR WRIST GENERAL 3V PA/LAT/OBL RIGHT RADEX WRIST COMPLETE MINIMUM 3 VIEWS Enedina Canchola PA-C [address] [place] [address] [place] [id number] Referral ID Status Reason Start Date Expiration Date V isits Requested Visits Authorized [id number] Closed Auto-Generate d Referral 06/26/2023 07/25/2024 1 1 [facility] Summary Purpose Family History No Family History Records FoundNo Family History Records FoundNo Family History Records FoundNo Family History Records Found Advance Directives No Advanced Directives Records Found Advance Directive Response Recorded Date/ Time Living Will No September 26 8:30pm Power of Shoe Cementer No September 26, 2021 8:30pm Advance Directive Response Recorded Date/ Time Living Will No 2022 10:24am Power of Shoe Cementer No February 18 10:24am Advance Directive Response Recorded Date/ Time Name of Medical Power of Shoe Cementer Ya brito- patient financial services coordinator May 13, 2022 2:34pm Living Will Yes May 13, 2022 2:34pm Power of Shoe Cementer Yes April 2:34pm Advance Directive Response Recorded Date/ Time Name of Medical Power of Shoe Cementer Ya Aguero s May 13, 2022 6:11pm Living Will Yes May 13, 2022 6:11pm Power of Shoe Cementer Yes April 6:11pm Advance Directive Response Recorded Date/ Time Name of Medical Power of Shoe Cementer Ya Aguero s May 13, 2022 6:11pm Name of Medical Power of Shoe Cementer YA SANTACRUZER S June 28, 2022 11:50pm Living Will Yes June 28 11:50pm Power of Shoe Cementer Yes June 28, 2022 11:50pm Advance Directive Response Recorded Date/ Time Name of Medical Power of Shoe Cementer Ya Aguero s May 13, 2022 5:11pm Name of Medical Power of Shoe Cementer YA AGUERO S June 28, 2022 10:50pm Living Will Yes June 28 10:50pm Power of Shoe Cementer Yes June 28, 2022 10:50pm Advance Directive Response Recorded Date/ Time Name of Medical Power of Shoe Cementer Ya Aguero s May 13, 2022 5:11pm Name of Medical Power of Shoe Cementer YA AGUERO S June 28, 2022 10:50pm Name of Medical Power of Shoe Cementer KAMILAH July 08, 2022 11:07am Living Will Yes July 08 022 11:07am Power of Shoe Cementer Yes July 08, 2022 11:07am Advance Directive Response Recorded Date/ Time Name of Medical Power of Shoe Cementer Ya Aguero s May 13, 2022 5:11pm Name of Medical Power of Shoe Cementer YA SANTACRUZER S June 28, 2022 10:50pm Name of Medical Power of Shoe Cementer Ya Santacruzer s July 08, 2022 2:45pm Living Will Yes July 08, 022 2:45pm Power of Shoe Cementer Yes July 08, 2022 2:45pm Advance Directive Response Recorded Date/ Time Name of Medical Power of Shoe Cementer Ya Aguero s May 13, 2022 5:11pm Name of Medical Power of Shoe Cementer YA Brito June 28, 2022 10:50pm Name of Medical Power of Shoe Cementer Ya brito July 08, 2022 2:45pm Living Will No August 22, 2 022 2:28pm Power of Shoe Cementer No August 22, 2022 2:28pm Advance Directive Response Recorded Date/ Time Name of Medical Power of Shoe Cementer YA Brito June 28, 2022 10:50pm Name of Medical Power of Shoe Cementer Ya brito July 08, 2022 2:45pm Living Will No August 22, 2 022 2:28pm Power of Shoe Cementer No August 22, 2022 2:28pm Advance Directive Response Recorded Date/ Time Name of Medical Power of Shoe Cementer Ya brito July 08, 2022 2:45pm Living Will No August 22, 2 022 2:28pm Power of Shoe Cementer No August 22, 2022 2:28pm Advance Directive Response Recorded Date/ Time Living Will No August 22, 2 022 3:28pm Power of Shoe Cementer No August 22, 2022 3:28pm Advance Directive Response Recorded Date/ Time Living Will No August 22, 2 022 2:28pm Power of Shoe Cementer No August 22, 2022 2:28pm Chief Complaint and Reason for Visit Chief Complaint USP LAB WOR K fall, head injury SCREENING USP LAB WORK Chief Complaint SCREENING USP LAB WORK USP LAB WORK SHOULDER Chief Complaint SCREENING USP LAB WORK USP LAB WORK SHOULDER USP LAB WORK RIGHT SHOULDER PAIN Chief Complaint USP LAB WOR K SHOULDER USP LAB WORK RIGHT SHOULDER PAIN DEBILITY, RIGHT ANKLE FRACTURE DEBILITY, RIGHT ANKLE FRACTURE Reason for Visit Ankle fracture, righ t Contusion of face Fall Chief Complaint USP LAB WOR K SHOULDER USP LAB WORK RIGHT SHOULDER PAIN DEBILITY, RIGHT ANKLE FRACTURE DEBILITY, RIGHT ANKLE FRACTURE DEBILITY, RIGHT ANKLE FRACTURE DEBILITY, RIGHT ANKLE FRACTURE Reason for Visit Acute right ankle pa in Ankle fracture, right Contusion of face Difficulty walking Fall Chief Complaint SHOULDER USP LAB WORK RIGHT SHOULDER PAIN DEBILITY, RIGHT ANKLE FRACTURE DEBILITY, RIGHT ANKLE FRACTURE DEBILITY, RIGHT ANKLE FRACTURE DEBILITY, RIGHT ANKLE FRACTURE LAB WORK LAB WORK LAB WORK LAB WORK USP LAB WORK Reason for Visit Ankle fracture, righ t Difficulty walking Contusion of face Fall Chief Complaint USP LAB WOR K RIGHT SHOULDER PAIN DEBILITY, RIGHT ANKLE FRACTURE DEBILITY, RIGHT ANKLE FRACTURE DEBILITY, RIGHT ANKLE FRACTURE DEBILITY, RIGHT ANKLE FRACTURE LAB WORK LAB WORK LAB WORK LAB WORK USP LABWORK USP LAB WORK LAB WORK HEAD INJURY Reason for Visit Ankle fracture, righ t Difficulty walking Contusion of face Fall Chief Complaint USP LAB WOR K RIGHT SHOULDER PAIN DEBILITY, RIGHT ANKLE FRACTURE DEBILITY, RIGHT ANKLE FRACTURE DEBILITY, RIGHT ANKLE FRACTURE DEBILITY, RIGHT ANKLE FRACTURE LAB WORK LAB WORK LAB WORK LAB WORK USP LABWORK USP LAB WORK USP LABWORK USP LABWORK LAB WORK LAB WORK HEAD INJURY Reason for Visit Ankle fracture, righ t Difficulty walking Contusion of face Fall Chief Complaint USP LAB WOR K RIGHT SHOULDER PAIN DEBILITY, RIGHT ANKLE FRACTURE DEBILITY, RIGHT ANKLE FRACTURE DEBILITY, RIGHT ANKLE FRACTURE DEBILITY, RIGHT ANKLE FRACTURE LAB WORK LAB WORK LAB WORK LAB WORK USP LABWORK USP LAB WORK USP LABWORK USP LABWORK LAB WORK LAB WORK HEAD INJURY GI BLEED Reason for Visit Ankle fracture, righ t Difficulty walking Contusion of face Fall Acute lower gastrointestinal bleeding Anticoagulated Visit for suture removal Chief Complaint USP LAB WOR K RIGHT SHOULDER PAIN DEBILITY, RIGHT ANKLE FRACTURE DEBILITY, RIGHT ANKLE FRACTURE DEBILITY, RIGHT ANKLE FRACTURE DEBILITY, RIGHT ANKLE FRACTURE LAB WORK LAB WORK LAB WORK LAB WORK USP LABWORK USP LAB WORK USP LABWORK USP LABWORK LAB WORK LAB WORK HEAD INJURY GI BLEED GI BLEED GI BLEED GI BLEED GI BLEED GI BLEED Reason for Visit Ankle fracture, righ t Difficulty walking Contusion of face Fall Acute lower gastrointestinal bleeding Anticoagulated Constipation Visit for suture removal Chief Complaint USP LAB WOR K RIGHT SHOULDER PAIN DEBILITY, RIGHT ANKLE FRACTURE DEBILITY, RIGHT ANKLE FRACTURE DEBILITY, RIGHT ANKLE FRACTURE DEBILITY, RIGHT ANKLE FRACTURE LAB WORK LAB WORK LAB WORK LAB WORK USP LABWORK USP LAB WORK USP LABWORK USP LABWORK LAB WORK LAB WORK HEAD INJURY USP LABWORK GI BLEED GI BLEED GI BLEED GI BLEED GI BLEED GI BLEED USP LAB WORK Reason for Visit Ankle fracture, righ t Difficulty walking Contusion of face Fall Acute lower gastrointestinal bleeding Visit for suture removal Chief Complaint DEBILITY, RIGHT ANKL E FRACTURE DEBILITY, RIGHT ANKLE FRACTURE DEBILITY, RIGHT ANKLE FRACTURE DEBILITY, RIGHT ANKLE FRACTURE LAB WORK LAB WORK LAB WORK LAB WORK USP LABWORK USP LAB WORK USP LABWORK USP LABWORK LAB WORK LAB WORK HEAD INJURY USP LABWORK GI BLEED GI BLEED GI BLEED GI BLEED GI BLEED GI BLEED USP LAB WORK USP LAB WORK 2 W F/U GI BLEED USP LABWORK Reason for Visit Ankle fracture, righ t Difficulty walking Contusion of face Fall Anticoagulated Constipation Acute lower gastrointestinal bleeding Visit for suture removal Anticoagulated Constipation Rectal bleeding Chief Complaint DEBILITY, RIGHT ANKL E FRACTURE DEBILITY, RIGHT ANKLE FRACTURE DEBILITY, RIGHT ANKLE FRACTURE DEBILITY, RIGHT ANKLE FRACTURE LAB WORK LAB WORK LAB WORK LAB WORK USP LABWORK USP LAB WORK USP LABWORK USP LABWORK LAB WORK LAB WORK HEAD INJURY USP LABWORK GI BLEED GI BLEED GI BLEED GI BLEED GI BLEED GI BLEED USP LAB WORK USP LAB WORK 2 W F/U GI BLEED USP LABWORK USP LAB WORK USP LAB WORK USP LAB WORK Reason for Visit Ankle fracture, righ t Difficulty walking Contusion of face Fall Anticoagulated Constipation Acute lower gastrointestinal bleeding Visit for suture removal Anticoagulated Constipation Rectal bleeding Chief Complaint DEBILITY, RIGHT ANKL E FRACTURE DEBILITY, RIGHT ANKLE FRACTURE DEBILITY, RIGHT ANKLE FRACTURE DEBILITY, RIGHT ANKLE FRACTURE LAB WORK LAB WORK LAB WORK LAB WORK USP LABWORK USP LAB WORK USP LABWORK USP LABWORK LAB WORK LAB WORK HEAD INJURY USP LABWORK GI BLEED GI BLEED GI BLEED GI BLEED GI BLEED GI BLEED USP LAB WORK USP LAB WORK 2 W F/U GI BLEED USP LABWORK USP LABWORK USP LAB WORK USP LAB WORK USP LAB WORK Reason for Visit Ankle fracture, righ t Difficulty walking Contusion of face Fall Anticoagulated Constipation Acute lower gastrointestinal bleeding Visit for suture removal Anticoagulated Constipation Rectal bleeding Chief Complaint LAB WORK LAB WORK USP LABWORK USP LAB WORK USP LABWORK USP LABWORK LAB WORK LAB WORK HEAD INJURY USP LABWORK GI BLEED GI BLEED GI BLEED GI BLEED GI BLEED GI BLEED USP LAB WORK USP LAB WORK 2 W F/U GI BLEED USP LABWORK USP LABWORK USP LAB WORK USP LAB WORK USP LAB WORK USP LAB WORK Reason for Visit Anticoagulated Constipation Acute lower gastrointestinal bleeding Visit for suture removal Anticoagulated Constipation Rectal bleeding Chief Complaint LAB WORK USP LABWORK USP LAB WORK USP LABWORK USP LABWORK LAB WORK LAB WORK HEAD INJURY USP LABWORK GI BLEED GI BLEED GI BLEED GI BLEED GI BLEED GI BLEED USP LAB WORK USP LAB WORK 2 W F/U GI BLEED USP LABWORK USP LABWORK USP LAB WORK USP LAB WORK USP LAB WORK USP LAB WORK USP LAB WORK Reason for Visit Anticoagulated Constipation Acute lower gastrointestinal bleeding Visit for suture removal Anticoagulated Constipation Rectal bleeding Chief Complaint USP LABWORK USP LABWORK LAB WORK LAB WORK HEAD INJURY USP LABWORK GI BLEED GI BLEED GI BLEED GI BLEED GI BLEED GI BLEED USP LAB WORK USP LAB WORK 2 W F/U GI BLEED USP LABWORK USP LABWORK USP LAB WORK USP LAB WORK USP LAB WORK USP LAB WORK USP LAB WORK USP LABWORK USP LAB WORK Reason for Visit Anticoagulated Constipation Acute lower gastrointestinal bleeding Visit for suture removal Anticoagulated Constipation Rectal bleeding Chief Complaint USP LABWORK USP LABWORK LAB WORK LAB WORK HEAD INJURY USP LABWORK GI BLEED GI BLEED GI BLEED GI BLEED GI BLEED GI BLEED USP LAB WORK USP LAB WORK 2 W F/U GI BLEED USP LABWORK USP LABWORK USP LAB WORK USP LAB WORK USP LAB WORK USP LAB WORK USP LAB WORK USP LABWORK USP LAB WORK USP LAB WORK Reason for Visit Anticoagulated Constipation Acute lower gastrointestinal bleeding Visit for suture removal Anticoagulated Constipation Rectal bleeding Chief Complaint LAB WORK HEAD INJURY USP LABWORK GI BLEED GI BLEED GI BLEED GI BLEED GI BLEED GI BLEED USP LAB WORK USP LAB WORK 2 W F/U GI BLEED USP LABWORK USP LABWORK USP LAB WORK USP LAB WORK USP LAB WORK USP LAB WORK USP LAB WORK USP LABWORK USP LAB WORK USP LAB WORK USP LAB WORK Reason for Visit Anticoagulated Constipation Acute lower gastrointestinal bleeding Visit for suture removal Anticoagulated Constipation Rectal bleeding Chief Complaint GI BLEED GI BLEED GI BLEED GI BLEED GI BLEED GI BLEED USP LAB WORK USP LAB WORK 2 W F/U GI BLEED USP LABWORK USP LABWORK USP LAB WORK USP LAB WORK USP LAB WORK USP LAB WORK USP LAB WORK USP LABWORK USP LAB WORK USP LAB WORK USP LAB WORK LABWORK Reason for Visit Anticoagulated Constipation Acute lower gastrointestinal bleeding Visit for suture removal Anticoagulated Constipation Rectal bleeding Chief Complaint USP LABWORK USP LAB WORK USP LAB WORK USP LAB WORK USP LAB WORK USP LAB WORK USP LABWORK USP LAB WORK USP LAB WORK USP LAB WORK LABWORK USP LAB WORK USP LABWORK USP LAB WORK Chief Complaint USP LAB WOR K USP LAB WORK USP LAB WORK USP LABWORK USP LAB WORK USP LAB WORK USP LAB WORK LABWORK USP LAB WORK USP LABWORK USP LAB WORK USP LABWORK Chief Complaint USP LABWORK USP LAB WORK USP LAB WORK USP LAB WORK LABWORK USP LAB WORK USP LABWORK USP LAB WORK USP LABWORK CERVICAL SPINE FX, SCREENING Chief Complaint USP LABWORK USP LAB WORK USP LABWORK USP LAB WORK CERVICAL SPINE FX, SCREENING USP LABWORK Chief Complaint USP LAB WOR K CERVICAL SPINE FX, SCREENING USP LABWORK USP LAB WORK USP LAB WORK Chief Complaint USP LABWORK USP LAB WORK USP LAB WORK USP LAB WORK Chief Complaint USP LAB WOR K USP LAB WORK USP LABWORK USP LAB WORK Chief Complaint USP LAB WOR K USP LABWORK USP LAB WORK USP LABWORK Chief Complaint USP LAB WOR K USP LABWORK USP LAB WORK USP LABWORK USP LABWORK Chief Complaint USP LAB WOR K USP LABWORK USP LAB WORK USP LABWORK USP LABWORK LABWORK Chief Complaint USP LABWORK USP LAB WORK USP LABWORK USP LABWORK LABWORK SKIN Chief Complaint USP LAB WOR K USP LABWORK USP LABWORK LABWORK SKIN LABWORK Chief Complaint USP LABWORK USP LABWORK LABWORK SKIN LABWORK LABWORK LABWORK Chief Complaint LABWORK SKIN LABWORK LABWORK LABWORK LABWORK LABWORK Additional Source Comments INFORMATION SOURCE (unrecogn ized section and content) DATE CREATED AUTHOR 01/14/2019 [facility] [facility] DATE CREATED AUTHOR AUTHOR'S ORGANIZ ATION 07/24/2023 [facility] DATE CREATED AUTHOR AUTHOR'S ORGANIZ ATION 03/13/2024 [facility] DATE CREATED AUTHOR AUTHOR'S ORGANIZ ATION 01/30/2025 [facility] Goals (unrecognized section and content) Goals may be documented in a n alternate sectionGoals may be documented in an alternate sectionGoals may be documented in an alternate sectionGoals may be documented in an alternate sectionGoals may be documented in an alternate sectionGoals may be documented in an alternate sectionGoals may be documented in an alternate sectionGoals may be documented in an alternate sectionGoals may be documented in an alternate sectionGoals may be documented in an alternate sectionGoals may be documented in an alternate sectionGoals may be documented in an alternate sectionGoals may be documented in an alternate sectionGoals may be documented in an alternate sectionGoals may be documented in an alternate sectionGoals may be documented in an alternate sectionGoals may be documented in an alternate section Care Teams (unrecognized sec tion and content) Team Status: Active Member Role Status Dates Yesika King MD Family Provider Active Dr. Gerda Wilks MD Primary Care Provider Active Team Status: Active Member Role Status Dates Dr. Gerda Wilks MD Primary Care Provider Active Dr. Tha Baron MD Emergency Provider Active Dr. Mirella Issa MD Admit Provider, Atte nding Provider, Other Provider Active Team Status: Active Member Role Status Dates Dr. Gerda Wilks MD Primary Care Provider Active Dr. Tha Baron MD Emergency Provider Active Dr. Mirella Issa MD Admit Provider, Refe rring Provider, Other Provider Active Dr. Salina Li MD Attending Provider, Other Pro vider Active Team Status: Active Member Role Status Dates Dr. Gerda Wilks MD Primary Care Provider Active Dr. Tha Baron MD Emergency Provider Active Dr. Mirella Issa MD Admit Provider, Atte nding Provider, Other Provider Active Dr. Salina Li MD Other Provider Active Team Status: Active Member Role Status Dates Dr. Gerda Wilks MD Primary Care Provider Active Dr. Tha Baron MD Emergency Provider Active Dr. Mirella Issa MD Admit Provider, Other Provider Act hugo Dr. Salina Li MD Attending Provider, Other Pro vider Active Dr. Emily Marti DO Other Provider Active Team Status: Active Member Role Status Dates Dr. Gerda Wilks MD Primary Care Provider Active Dr. Tha Baron MD Emergency Provider Active Dr. Mirella Issa MD Admit Provider, Other Provider Act hugo Dr. Salina Li MD Other Provider Active Dr. Emily Marti DO Attending Provider, Other Provide r Active Team Status: Inactive Member Role Status Dates Dr. Gerda Wilks MD Primary Care Provider, Referring Provider Active Dr. Salina Li MD Attending Provider Active Team Status: Active Member Role Status Dates Dr. Gerda Wilks MD Primary Care Provider, Referring Provider Active Dr. Salina Li MD Attending Provider, Other Pro vider Active Team Status: Active Member Role Status Dates Dr. Gerda Wilks MD Primary Care Provider Active Dr. Gerda Wilks MD Attending Provider Active Team Status: Inactive Member Role Status Dates Dr. Gerda Wilks MD Primary Care Provider Active Dr. Gerda Wilks MD Attending Provider Active Team Status: Inactive Member Role Status Dates Dr. Gerda Wilks MD Primary Care Provider Active Dr. Tha Baron MD Attending Provider, Emergency Provider Active Team Status: Inactive Member Role Status Dates Dr. Gerda Wilks MD Primary Care Provider Active Dr. Tha Baron MD Emergency Provider Active Dr. Mirella Issa MD Admit Provider, Other Provider Act hugo Dr. Salina Li MD Other Provider Active Dr. Emily Marti DO Attending Provider Active Team Status: Inactive Member Role Status Dates Dr. Gerda Wilks MD Primary Care Provider Active Dr. Gerda Wilks MD Attending Provider, Referring Pr ovider Active Team Status: Active Member Role Status Dates Yesika ROJO MD Family Provider Active Dr. Gerda Wilks MD Primary Care Provider Active Team Status: Inactive Member Role Status Dates Dr. Gerda Wilks MD Primary Care Provider Active Dr. Gerda ROJO MD Attending Provider Active Team Status: Inactive Member Role Status Dates Dr. Gerda Wilks MD Primary Care Provider Active Dr. Gerda ROJO MD Attending Provider, Referring Provider Active Team Status: Active Member Role Status Dates Dr. Gerda Wilks MD Primary Care Provider Active Dr. Gerda ROJO MD Attending Provider Active Team Status: Active Member Role Status Dates Dr. Gerda Wilks MD Primary Care Provider Active Dr. Gerda ROJO MD Attending Provider, Referring Provider Active Team Status: Inactive Member Role Status Dates Dr. Gerda Wilks MD Primary Care Provi ramsey, Attending Provider, Referring Provider Active Team Status: Active Member Role Status Dates Dr. Gerda Wilks MD Primary Care Provider Active Rizwan ROJO Attending Provider Active Team Status: Inactive Member Role Status Dates Dr. Gerda Wilks MD Primary Care Provider Active Rizwan ROJO Attending Provider Active Team Status: Inactive Member Role Status Dates Dr. Gerda Wilks MD Primary Care Provider Active AUDELIA Jacobson Attending Provider, Referring Provi ramsey Active Team Status: Active Member Role Status Dates Dr. Gerda Wilks MD Primary Care Provider Active Kurt ROJO Attending Provider Active Team Status: Inactive Member Role Status Dates Dr. Gerda Wilks MD Primary Care Provider Active Kurt ROJO Attending Provider Active Source Comments (unrecognize d section and content) In the event this informatio n is protected by the Federal Confidentiality of Alcohol and Drug Abuse Patient Records regulations: The Federal rules restrict any use of the information to criminally investigate or prosecute any alcohol or drug abuse patient.[facility] the event this information is protected by the Federal Confidentiality of Alcohol and Drug Abuse Patient Records regulations: The Federal rules restrict any use of the information to criminally investigate or prosecute any alcohol or drug abuse patient.[facility] the event this information is protected by the Federal Confidentiality of Alcohol and Drug Abuse Patient Records regulations: The Federal rules restrict any use of the information to criminally investigate or prosecute any alcohol or drug abuse patient.[facility] the event this information is protected by the Federal Confidentiality of Alcohol and Drug Abuse Patient Records regulations: The Federal rules restrict any use of the information to criminally investigate or prosecute any alcohol or drug abuse patient.[facility] the event this information is protected by the Federal Confidentiality of Alcohol and Drug Abuse Patient Records regulations: The Federal rules restrict any use of the information to criminally investigate or prosecute any alcohol or drug abuse patient.[facility] Reason for Visit (unrecogniz ed section and content) Reason Comments Follow Up Pain Numbness Reason Comments Blood Thinner Instructions for EMG Testi ng Reason Onset Date Comments EMG 03/07/2024 Specialty Diagnoses / Procedures Referred By Cherise calderón [facility] Diagnoses Carpal tunnel syndrome of right wrist Disturbance of skin sensation Procedures EMG(NEURO/NI) NERVE CONDUCTION STUDIES 9-10 STUDIES Enedina Canchola PA-C [address] [place] [address] [facility] [place] [address] Referral ID Status Reason Start Date Expiration Date V isits Requested Visits Authorized [id number] Closed Auto-Generate d Referral 11/29/2023 11/28/2024 1 1 FOR RECORDS PERTAINING TO PATIENTS WHO ARE [...] BE BASED ON THE PRIMARY CLINICAL RECORDS. [facility]. provides no warranty or guarantee of the accuracy or completeness of information in this document.
[2025-01-30 07:18] LABS: Hematocrit 36.9 % (37-47); Hemoglobin 11.9 g/dL (12.0-15.0); Mean Corp Hgb Conc 32.2 g/dL (32-36); Mean Corpuscular Hgb 29.8 pg (27.0-32.0); Mean Corpuscular Volume 92.3 fL (81-99); Mean Platelet Vol. 11.2 fl (6.2-12.0); Platelet Count 242 K/mm3 (150-450); RBC Distribution Width CV 16.3 % (11.6-14.6); RBC Distribution Width SD 55.4 fl (35.1-43.9); White Blood Count 6.8 K/mm3 (4.4-11.0)
[2025-01-30 07:23] LABS: Anion Gap 10 (5-15); BUN 20 mg/dL (4-19); BUN/Creat Ratio 23.4 RATIO (10-20); Calcium,Total 9.2 mg/dL (7.6-11.0); Carbon Dioxide 23.1 mmol/L (21.0-32.0); Chloride 109 mmol/L (98-108); Creatinine, Serum 0.85 mg/dL (0.70-1.20); EST Glomerular Filtration Rate 71 (>60); Glucose 112 mg/dL (70-99); Sodium Level 143 mmol/L (133-145)
[2025-01-30 16:21] LABS: Pro- Brain NATRIURETIC PEPTIDE 242 pg/mL (<=1800)
== END ==
LOC: OLS.SWAL 05:00
PROVIDERS: PCP Internal Medicine; Visit Provider Internal Medicine
DX: D64.9 Anemia, unspecified (principal); I10 Essential (primary) hypertension
CPT/HCPCS: 36415; 80048; 83880; 85027

== ENCOUNTER 2025-02-07 09:14 | Observation (INO) | payer MEDICARE, MEDICAID, SELFPAY ==
[2025-02-07] VITALS (18 sets, daily range): BP systolic 96–145; BP diastolic 46–93; PULSE 55–82; RESP 14–19; TEMP 36.6–36.9; O2SAT 87–98; BMI 33.8; BMI 33.7
--- NOTE | 2025-02-07 09:17 | CT_ITS ---
PROCEDURE: STROKE BRAIN/HEAD WITHOUT CONT 02/07/2025 REASON FOR EXAM: NEURO DEFICIT, ACUTE, STROKE SUSPECTED TECHNIQUE: STROKE BRAIN/HEAD WITHOUT CONT Coronal and Sagittal reconstruction series were provided. One or more dose reduction techniques were used (e.g., Automated exposure control, adjustment of the mA and/or kV according to patient size, use of iterative reconstruction technique. RADIATION DOSE SUMMARY: DLP: 830 mGycm COMPARISON: 06/29/2020 FINDINGS: There is no acute infarct, intracranial hemorrhage, or mass effect. There is no hydrocephalus or significant midline shift. There is moderate chronic microvascular ischemic changes and moderate parenchymal volume loss. No acute, depressed calvarial fractures. No large scalp hematomas. CT/STROKE Brain/Head without Cont IMPRESSION: No acute, large territorial infarction. Reading Location: [id number]
--- NOTE | 2025-02-07 09:17 | EKG12_ITS ---
Test Reason : STROKE TEAM Blood Pressure : */* mmHG Vent. Rate : 67 BPM Atrial Rate : 67 BPM P-R Int : 170 ms QRS Dur : 92 ms QT Int : 436 ms P-R-T Axes : 42 -8 13 degrees QTcB Int : 460 ms Normal sinus rhythm Normal ECG Confirmed by KIAH FELICIANO, RAQUEL ([id number]), editor continuity and script PAULY ADAMS ([id number]) on 02/10/2025 8:21:59 AM Referred By: Confirmed By: RAQUEL DUPONT MD
--- NOTE | 2025-02-07 09:18 | CT_ITS ---
PROCEDURE: STROKE CTA HEAD AND NECK W/CON 02/07/2025 REASON FOR EXAM: NEURO DEFICIT, ACUTE, STROKE SUSPECTED TECHNIQUE: STROKE CTA HEAD AND NECK W/CON Multiplanar and multisequence images were obtained. CONTRAST: 100 mL of Isovue 370 One or more dose reduction techniques were used (e.g., Automated exposure control, adjustment of the mA and/or kV according to patient size, use of iterative reconstruction technique). RADIATION DOSE SUMMARY: DLP: 644 mGycm COMPARISON: None FINDINGS: The aortic arch demonstrates a type I configuration. The ostia of the great vessels are patent. There is conventional branching. The right CCA is patent. Mild carotid bulb atherosclerosis without significant stenosis. The cervical right ICA is patent. The right MCA and right ASAD appear patent. There is no large vessel occlusion. The left CCA is patent. Mild carotid bulb atherosclerosis without significant stenosis. The cervical left ICA is patent. The left MCA and left ASAD appear patent. There is no large vessel occlusion. The right vertebral artery arises from the right subclavian artery. The left vertebral artery arises from the left subclavian artery. Both vertebral arteries are patent. Both vertebral arteries join to form the patent basilar artery. Both posterior cerebral arteries arise from the tip of the basilar. Both proximal OUTER DIAMETER TECHNICIAN segments are patent. There is no large vessel occlusion. There is no enhancing intracranial mass. Shotty cervical lymph nodes are identified. The thyroid gland is heterogeneous. The lung apices demonstrate no pneumothorax. No destructive osseous abnormalities identified. CT/STROKE CTA Head AND Neck W/Con IMPRESSION: No acute large vessel occlusion or high-grade stenosis. Dr. Sibley was notified by Edson Rodriguez at 9:50am EST on 02/07/25 Reading Location: [facility]
--- NOTE | 2025-02-07 09:18 | RAD_ITS ---
PROCEDURE: CHEST 1 VIEW 02/07/2025 REASON FOR EXAM: NEURO DEFICIT, ACUTE, STROKE SUSPECTED TECHNIQUE: Frontal view of the chest. COMPARISON: None FINDINGS: Hardware: None Heart: Normal size Lungs: Prominent interstitium due to AP technique Bones: No aggressive process. Other: Lung volumes are low limiting sensitivity of the exam RAD/Chest 1 View IMPRESSION: No acute process. Reading Location[facility]
--- NOTE | 2025-02-07 09:18 | ED.VIS.STROK ---
HPI History of Present Illness Chief Complaint: Stroke Alert Narrative Narrative: 79-year-old female presents from senior care facility with prehospital stroke symptoms. She was last seen well at 11 PM yesterday evening, approximately 10 hours ago. She was 3 hours late for breakfast this morning. According to EMS, group home noticed slurred speech and possible right facial droop. She also had reported expressive aphasia as well. She had complained to senior care facility that she had a headache, but denied it to EMS. 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 [facility] Medical History Injury of back Rectal bleeding Constipation Anticoagulated Presbyopia Unspecified nondisplaced fracture of sixth cervical vertebra, initial encounter for closed fracture Weakness Anxiety disorder, unspecified Age-related osteoporosis without current pathological fracture Other fracture of right lower leg, subsequent encounter for closed fracture with routine healing DVT (deep venous thrombosis) GERD (gastroesophageal reflux disease) Depression Hyperlipidemia Hypertension Home Medications ?Medication ?Instructions ?Recorded ?Last Taken ?Type alendronate 70 mg tablet 70 mg PO MO OSTEOPOROSIS 08/07/21 Unknown History allopurinol 100 mg tablet 200 mg PO DAILY GOUT 08/07/21 Unknown History bupropion HCl 200 mg tablet,12 hr 200 mg PO BID 08/07/21 Unknown History sustained-release fluticasone propionate 50 1 spray intranasal DAILY 08/07/21 Unknown History mcg/actuation nasal spray,suspension loratadine 10 mg tablet 10 mg PO DAILY 08/07/21 Unknown History omeprazole 20 mg capsule,delayed 20 mg PO DAILY 08/07/21 Unknown History release potassium chloride 10 mEq 10 meq PO DAILY 08/07/21 Unknown History tablet,extended release(part/cryst) (Klor-Con M) pravastatin 20 mg tablet 20 mg PO QHS 08/07/21 Unknown History tramadol 50 mg tablet 50 mg PO Q12H PRN Pain 07/08/22 Unknown History acetaminophen 325 mg tablet 650 mg PO QHS PRN Pain Score 02/07/25 Unknown History (Tylenol) 1-10/Temp > 100.7 F aluminum-magnesium hydroxide 200 30 ml PO Q4H PRN GI bleeding 02/07/25 Unknown History mg-200 mg/5 mL oral suspension prophylaxis apixaban 5 mg tablet (Eliquis) 5 mg PO BID 02/07/25 Unknown History cinacalcet 30 mg tablet 30 mg PO DAILY 02/07/25 Unknown History clonazepam 0.5 mg tablet 0.5 mg PO QHS 02/07/25 Unknown History docusate sodium 100 mg capsule 100 mg PO DAILY CONSTIPATION 02/07/25 Unknown History (Col-Rite) donepezil 10 mg tablet 10 mg PO QHS 02/07/25 Unknown History guaifenesin 100 mg/5 mL oral 200 mg PO Q4H PRN congestion 02/07/25 Unknown History liquid (Adult Tussin Chest Congestion) guaifenesin 600 mg tablet, 600 mg PO BID 02/07/25 Unknown History extended release 12 hr (Mucinex) losartan 50 mg tablet 50 mg PO DAILY 02/07/25 Unknown History magnesium hydroxide 400 mg/5 mL 30 ml PO DAILY PRN constipation 02/07/25 Unknown History oral suspension (Dulcolax (magnesium hydroxide)) methyl salicylate 15 %-menthol 10 1 applic topical Q12H PRN muscle 02/07/25 Unknown History % topical cream (AsperFlex (methyl pain salicylate-menthol)) metoprolol tartrate 25 mg tablet 12.5 mg PO BID 02/07/25 Unknown History minoxidil 2.5 mg tablet 2.5 mg PO DAILY 02/07/25 Unknown History ondansetron HCl 4 mg tablet 4 mg PO Q8H PRN nausea and vomiting 02/07/25 Unknown History polyethylene glycol 3350 17 17 g PO DAILY PRN constipation 02/07/25 Unknown History gram/dose oral powder (Miralax) sertraline 50 mg tablet 75 mg PO DAILY 02/07/25 Unknown History torsemide 10 mg tablet 10 mg PO DAILY 02/07/25 Unknown History Allergy/AdvReac Type Severity Reaction Status Date / Time Latex, Natural Rubber AdvReac Rash Verified 02/07/25 09:31 Social History housing: assisted living facility Smoking Status: Former smoker ROS ROS ED ROS Narrative Review of systems positive for reported expressive aphasia, dysarthria, nausea and vomiting, and headache. No fever or chills. No exacerbating or alleviating factors. EXAM Physical Exam Narrative Exam Narrative: Afebrile. Vital signs noted. Nontoxic-appearing. Dry mucous membranes. Cardiovascular examination regular rate and rhythm. Lungs clear to auscultation bilaterally. Abdomen is soft and nontender without guarding or rebound. Neurological examination NIH stroke scale is 1 for mild dysarthria which may be secondary to dry mucous membranes. No expressive aphasia. Moves all extremities. No pedal edema. Const Vital Signs: 02/07/25 09:17 02/07/25 09:21 02/07/25 09:35 Temperature 97.8 F 97.8 F Temperature Source Oral Oral Pulse Rate 74 74 Respiratory Rate 19 H 19 H Blood Pressure 116/53 L 116/53 L Blood Pressure Mean 74 74 Pulse Ox 91 91 96 Oxygen Delivery Method Room Air Room Air Nasal Cannula Oxygen Flow Rate (L/min) 2 02/07/25 09:37 02/07/25 09:45 02/07/25 09:47 Temperature Temperature Source Pulse Rate 77 71 Respiratory Rate 14 19 H Blood Pressure 112/51 L 110/55 L Blood Pressure Mean 71 73 Pulse Ox 96 91 97 Oxygen Delivery Method Nasal Cannula Room Air Nasal Cannula Oxygen Flow Rate (L/min) 2 2 02/07/25 10:17 02/07/25 10:30 02/07/25 11:00 Temperature 97.8 F 97.9 F Temperature Source Oral Oral Pulse Rate 68 63 61 Respiratory Rate 18 16 18 Blood Pressure 96/46 L 136/62 H 130/60 H Blood Pressure Mean 62 86 83 Pulse Ox 97 98 97 Oxygen Delivery Method Nasal Cannula Nasal Cannula Room Air Oxygen Flow Rate (L/min) 1 1 02/07/25 11:15 02/07/25 11:30 Temperature 97.9 F Temperature Source Pulse Rate 66 55 L Respiratory Rate 16 16 Blood Pressure 144/72 H 145/67 H Blood Pressure Mean 96 93 Pulse Ox 96 96 Oxygen Delivery Method Room Air Oxygen Flow Rate (L/min) MDM MDM MDM Narrative Medical decision making narrative: Differential diagnosis includes but not limited to intracranial hemorrhage versus ischemic stroke versus dehydration versus other electrolyte abnormality. Prehospital stroke team had been called. NIH stroke scale 1 for dysarthria. Stroke workup was pursued. I do not feel that she is a TNK candidate as she is already anticoagulated with Eliquis for DVTs. Additionally, she does not have a debilitating deficit currently. I reviewed the radiology reports and received a phone call as well from the radiologist regarding the CT of the brain and a CTA of the head and neck which shows no evidence of an acute hemorrhage, mass, or stroke, no large vessel occlusion. I also discussed the patient with the stroke neurologist, Dr. Up who states that as long as the CT and CTA showed no large vessel occlusion that she can be observed here for further workup. He also agrees that TNK is not indicated as she is outside the window and she has already anticoagulated. I reviewed her laboratory work and she has normal white count 6.9 with hemoglobin 11.4, hematocrit 35.0, platelet count normal at 195, INR 1.1 and a PTT 33.3. BMP is grossly unremarkable except for glucose of 117. Initial high-sensitivity troponin 9. Urinalysis is negative for infection with 0 WBCs and 0 bacteria. I do not feel antibiotics are indicated. Chest x-ray interpreted by myself independently shows no evidence of acute process, no pneumonia. I reviewed the radiology report which confirms my independent interpretation. EKG obtained and interpreted by myself as well as normal sinus rhythm at 67 bpm without ectopy or acute ST changes. No STEMI. I discussed patient with the hospitalist, Dr. Olivier who assigned the patient to observation on the PCU. Patient is in stable condition. History & Record Review Discussion w/independent historian: EMS personnel and Patient Additional record(s) reviewed:: Prior ED visit (Essentially noncontributory to current chief complaint.) Lab Data Attestation: I reviewed the patient's lab results. Labs: Laboratory Results - last 24 hr 02/07/25 02/07/25 09:31 11:10 WBC 6.9 RBC 3.83 L Hgb 11.4 L Hct 35.0 L MCV 91.4 MCH 29.8 MCHC 32.6 RDW Std Deviation 53.1 H RDW Coeff of Michele 15.9 H Plt Count 195 MPV 10.6 Immature Gran % (Auto) 0.400 Neut % (Auto) 77.2 H Lymph % (Auto) 12.9 L [place] % (Auto) 7.2 Eos % (Auto) 1.6 Baso % (Auto) 0.7 Absolute Neuts (auto) 5.3 Absolute Lymphs (auto) 0.89 Nucleated RBC % 0 PT 14.5 INR 1.1 APTT 33.3 Sodium 137 Potassium 4.0 Chloride 107 Carbon Dioxide 21.1 Anion Gap 9 BUN 18 Creatinine 0.77 Estim Creat Clear Calc 51.78 Est GFR (MDRD) Non-Af 79 BUN/Creatinine Ratio 23.7 H Glucose 117 H Calcium 9.3 Troponin T High Sens 9 Urine Color Yellow Urine Clarity Clear Urine pH 7.0 Ur Specific [place] 1.005 Urine Protein Negative Urine Glucose (UA) Normal Urine Ketones Negative Urine Occult Blood Negative Urine Nitrite Negative Urine Bilirubin Negative Urine Urobilinogen Normal Ur Leukocyte Esterase Negative Urine RBC 0 SEEN Urine WBC 0 SEEN Ur Squamous Epith Cells 0 SEEN Urine Bacteria 0 SEEN Urine Mucus 0 SEEN Radiography Chest X-Ray - ED: 1 View, Read by ED Physician, Read by Radiologist, No Acute Disease and No Infiltrates Diagnostic Testing: Clinical Impression(s) from Imaging Studies Brain CT 02/07/25 09:17 IMPRESSION: No acute, large territorial infarction. Reading Location: [facility] Chest X-Ray 02/07/25 09:18 IMPRESSION: No acute process. Reading Location: [facility] Head/Neck CTA 02/07/25 09:18 IMPRESSION: No acute large vessel occlusion or high-grade stenosis. Dr. Sibley was notified by Edson Rodriguez at 9:50am EST on 02/07/25 Reading Location: [facility] Management Discussion w/another healthcare provider: Hospitalist, Nanoscience Technician (Annel Corey, Stroke Neurology) and Radiologist Discharge Plan Dx/Rx/DC Orders Clinical Impression: Dysarthria, Anticoagulated, TIA (transient ischemic attack) Disposition Disposition: Acute Care Hospital [facility] NIHSS NIHSS 1a. Level of Consciousness: 0 - Alert; keenly responsive 1b. LOC Questions: 0 - Answers BOTH questions correctly 1c. LOC Commands: 0 - Performs BOTH tasks correctly 2. Best Gaze: 0 - Normal 3. Visual: 0 - No visual loss 4. Facial Palsy: 0 - Normal symmetrical movements 5a. Left Arm: 0 - No drift; arm holds 90 (or 45) degrees for full 10 seconds 5b. Right Arm: 0 - No drift; arm holds 90 (or 45) degrees for full 10 seconds 6a. Left Le - No drift; leg holds 30-degree position for full 5 seconds 6b. Right Le - No drift; leg holds 30-degree position for full 5 seconds 7. Limb Ataxia: 0 - Absent 8. Sensory: 0 - Normal; no sensory loss 9. Best Language: 0 - No aphasia; normal 10. Dysarthria: 1 = [id number] dysarthria; 11. Extinction and Inattention: 0 - No abnormality Total: 1 Stroke Questions Stroke Team Activated: Yes Reviewed Inclusion/Exclusion criteria: Yes Was Patient considered for Endovascular Intervention?: No IV Thrombolytic Administered: No No contraindications from thrombolytic administration: No (On Eliquis)
--- OUTSIDE RECORDS SUMMARY | 2025-02-07 09:34 | XMS RPT_ITS | CCD ---
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 Gerda Wilks Primary [...] Emergency Provider Maegan Dr. Vu [facility] Vu Attending Provider Maegan, Dr. Vu Other Provider Dr. Salina Li Attending Provider Dr. Salina Li Other Provider Dr. Emily Marti Other Provider Dr. Emily Marti Attending Provider Christinelansingtess, Dr. Vu Referring Provider Dr. Gerda Wilks Referring Provider Unavailable Dr. Gerda Wilks Primary Care Provider Dr. Tha Boo Emergency Provider [facility], Dr. Vu Admit Provider [facility], Dr. Vu Attending Provider [facility], Dr. Vu Other Provider [facility], Dr. Vu Referring Provider Dr. Salina Li Attending Provider Dr. Salina Li Other Provider Dr. Emily Marti Other Provider Dr. Emily Marti Attending Provider Dr. Gerda Wilks Referring Provider Unavailable Dr. Gerda Wilks Primary Care Provider UnavailDr. Gerda Abbasi Referring Provider Unavailable Dr. Salina Li Attending Provider Dr. Salina Li Other Provider Unavailable Primary Care Provider ENEDINA Garrison Referring Unavailable Unavailable Primary Care Provider Vanita engel Work Phone: Evaluation note* Diagnosis Onset Date Resolution Status Ankle fracture, right acute Difficulty walking acute Contusion of face resolved Fall resolved Anticoagulated acute Constipation acute Acute lower gastrointestinal bleeding resolved Visit for suture removal res olved Anticoagulated acute Constipation acute Rectal bleeding acute [facility] Work Phone: Evaluation note* Diagnosis Onset Date Resolution Status Anticoagulated acute Constipation acute Acute lower gastrointestinal bleeding resolved Visit for suture removal res olved Anticoagulated acute Constipation acute Rectal bleeding acute [facility] Work Phone: Evaluation note* Diagnosis Pain- Primary Generalized pain documented in this encounter [facility] note* Diagnosis Carpal tunnel syndrome of right wrist- Primary Carpal tunnel syndrome Disturbance of skin sensation documented in this encounter [facility] note* Diagnosis Median nerve lesion, right- Primary Carpal tunnel syndrome of right wrist Carpal tunnel syndrome Disturbance of skin sensation Paresthesia of skin Disturbance of skin sensation documented in this encounter [facility] note* Diagnosis Pain Generalized pain documented in this encounter [facility] for referral (narrative)* Diagnostic Procedure Only (Routine) - Authorized Specialty Diagnoses / Procedures Referred By Cherise calderón Referred To Contact XR IMAGING Diagnoses Pain Procedures XR WRIST GENERAL 3V PA/LAT/OBL RIGHT RADEX WRIST COMPLETE MINIMUM 3 VIEWS Enedina Canchola PA-C [address] [place] [address] Xr Imaging [place] [address] Referral ID Status Reason Start Date Expiration Date Visits Requested Visits Authorized [id number] Authorized Auto-Generat ed Referral 07/25/2024 1 1 [facility] for referral (narrative)* Outpatient Procedure (Routine) - Pending Review Specialty Diagnoses / Procedures Referred By Cherise calderón Referred To Contact [facility] Diagnoses Carpal tunnel syndrome of right wrist Disturbance of skin sensation Procedures EMG(NEURO/NI) NERVE CONDUCTION STUDIES 9-10 STUDIES Enedina Canchola PA-C [address] [place] [address] Neurological [place] [address] [place] [address] Referral ID Status Reason Start Date Expiration Date Visits Requested Visits Authorized [id number] Pending Review Auto-Generat ed Referral 11/29/2023 11/28/2024 1 1 [facility] for referral (narrative)* Diagnostic Procedure Only (Routine) - Closed Specialty Diagnoses / Procedures Referred By Contac t Referred To Contact XR IMAGING Diagnoses Pain Procedures XR WRIST GENERAL 3V PA/LAT/OBL RIGHT RADEX WRIST COMPLETE MINIMUM 3 VIEWS Enedina Canchola PA-C [address] [place] [address] [place] [address] Referral ID Status Reason Start Date Expiration Date V isits Requested Visits Authorized [id number] Closed Auto-Generate d Referral 06/26/2023 07/25/2024 1 1 [facility] for visit Narrative* Diagnostic Procedure Only (Routine) - Closed Specialty Diagnoses / Procedures Referred By Contdanielle calderón Referred To Contact XR IMAGING Diagnoses Pain Procedures XR WRIST GENERAL 3V PA/LAT/OBL RIGHT RADEX WRIST COMPLETE MINIMUM 3 VIEWS Enedina Canchola PA-C [address] [place] [address] [place] [address] Referral ID Status Reason Start Date Expiration Date V isits Requested Visits Authorized [id number] Closed Auto-Generate d Referral 06/26/2023 07/25/2024 1 1 [facility] Summary Purpose Family History No Family History Records FoundNo Family History Records FoundNo Family History Records FoundNo Family History Records Found Advance Directives No Advanced Directives Records Found Advance Directive Response Recorded Date/ Time Living Will No September 26 8:30pm Power of Language Instructor No September 26, 2021 8:30pm Advance Directive Response Recorded Date/ Time Living Will No 2022 10:24am Power of Language Instructor No February 18 10:24am Advance Directive Response Recorded Date/ Time Name of Medical Power of Language Instructor Ya patterson motor vehicle clerk May 13, 2022 2:34pm Living Will Yes May 13, 2022 2:34pm Power of Language Instructor Yes April 2:34pm Advance Directive Response Recorded Date/ Time Name of Medical Power of Language Instructor Ya Aguero s May 13, 2022 6:11pm Living Will Yes May 13, 2022 6:11pm Power of Language Instructor Yes April 6:11pm Advance Directive Response Recorded Date/ Time Name of Medical Power of Language Instructor Ya Aguero s May 13, 2022 6:11pm Name of Medical Power of Language Instructor YA AGUERO S June 28, 2022 11:50pm Living Will Yes June 28 11:50pm Power of Language Instructor Yes June 28, 2022 11:50pm Advance Directive Response Recorded Date/ Time Name of Medical Power of Language Instructor Ya Aguero s May 13, 2022 5:11pm Name of Medical Power of Language Instructor YA AGUERO S June 28, 2022 10:50pm Living Will Yes June 28 10:50pm Power of Language Instructor Yes June 28, 2022 10:50pm Advance Directive Response Recorded Date/ Time Name of Medical Power of Language Instructor Ya brito May 13, 2022 5:11pm Name of Medical Power of Language Instructor YA Brito June 28, 2022 10:50pm Name of Medical Power of Language Instructor CLAUS July 08, 2022 11:07am Living Will Yes July 08 022 11:07am Power of Language Instructor Yes July 08, 2022 11:07am Advance Directive Response Recorded Date/ Time Name of Medical Power of Language Instructor Ya brito May 13, 2022 5:11pm Name of Medical Power of Language Instructor YA AGUERO S June 28, 2022 10:50pm Name of Medical Power of Language Instructor Ya Aguero s July 08, 2022 2:45pm Living Will Yes July 08, 022 2:45pm Power of Language Instructor Yes July 08, 2022 2:45pm Advance Directive Response Recorded Date/ Time Name of Medical Power of Language Instructor Ya Aguero s May 13, 2022 5:11pm Name of Medical Power of Language Instructor YA SANTACRUZER S June 28, 2022 10:50pm Name of Medical Power of Language Instructor Ya Santacruzer s July 08, 2022 2:45pm Living Will No August 22, 022 2:28pm Power of Language Instructor No August 22, 2022 2:28pm Advance Directive Response Recorded Date/ Time Name of Medical Power of Language Instructor YA Brito June 28, 2022 10:50pm Name of Medical Power of Language Instructor Ya brito July 08, 2022 2:45pm Living Will No August 22, 2 022 2:28pm Power of Language Instructor No August 22, 2022 2:28pm Advance Directive Response Recorded Date/ Time Name of Medical Power of Language Instructor aY brito July 08, 2022 2:45pm Living Will No August 22, 2 022 2:28pm Power of Language Instructor No August 22, 2022 2:28pm Advance Directive Response Recorded Date/ Time Living Will No August 22, 2 022 3:28pm Power of Language Instructor No August 22, 2022 3:28pm Advance Directive Response Recorded Date/ Time Living Will No August 22, 2 022 2:28pm Power of Language Instructor No August 22, 2022 2:28pm Chief Complaint and Reason for Visit Chief Complaint PENITENTIARY LAB WOR K fall, head injury SCREENING PENITENTIARY LAB WORK Chief Complaint SCREENING PENITENTIARY LAB WORK PENITENTIARY LAB WORK SHOULDER Chief Complaint SCREENING PENITENTIARY LAB WORK PENITENTIARY LAB WORK SHOULDER PENITENTIARY LAB WORK RIGHT SHOULDER PAIN Chief Complaint PENITENTIARY LAB WOR K SHOULDER PENITENTIARY LAB WORK RIGHT SHOULDER PAIN DEBILITY, RIGHT ANKLE FRACTURE DEBILITY, RIGHT ANKLE FRACTURE Reason for Visit Ankle fracture, righ t Contusion of face Fall Chief Complaint PENITENTIARY LAB WOR K SHOULDER PENITENTIARY LAB WORK RIGHT SHOULDER PAIN DEBILITY, RIGHT ANKLE FRACTURE DEBILITY, RIGHT ANKLE FRACTURE DEBILITY, RIGHT ANKLE FRACTURE DEBILITY, RIGHT ANKLE FRACTURE Reason for Visit Acute right ankle pa in Ankle fracture, right Contusion of face Difficulty walking Fall Chief Complaint SHOULDER PENITENTIARY LAB WORK RIGHT SHOULDER PAIN DEBILITY, RIGHT ANKLE FRACTURE DEBILITY, RIGHT ANKLE FRACTURE DEBILITY, RIGHT ANKLE FRACTURE DEBILITY, RIGHT ANKLE FRACTURE LAB WORK LAB WORK LAB WORK LAB WORK PENITENTIARY LAB WORK Reason for Visit Ankle fracture, righ t Difficulty walking Contusion of face Fall Chief Complaint PENITENTIARY LAB WOR K RIGHT SHOULDER PAIN DEBILITY, RIGHT ANKLE FRACTURE DEBILITY, RIGHT ANKLE FRACTURE DEBILITY, RIGHT ANKLE FRACTURE DEBILITY, RIGHT ANKLE FRACTURE LAB WORK LAB WORK LAB WORK LAB WORK PENITENTIARY LABWORK PENITENTIARY LAB WORK LAB WORK HEAD INJURY Reason for Visit Ankle fracture, righ t Difficulty walking Contusion of face Fall Chief Complaint PENITENTIARY LAB WOR K RIGHT SHOULDER PAIN DEBILITY, RIGHT ANKLE FRACTURE DEBILITY, RIGHT ANKLE FRACTURE DEBILITY, RIGHT ANKLE FRACTURE DEBILITY, RIGHT ANKLE FRACTURE LAB WORK LAB WORK LAB WORK LAB WORK PENITENTIARY LABWORK PENITENTIARY LAB WORK PENITENTIARY LABWORK PENITENTIARY LABWORK LAB WORK LAB WORK HEAD INJURY Reason for Visit Ankle fracture, righ t Difficulty walking Contusion of face Fall Chief Complaint PENITENTIARY LAB WOR K RIGHT SHOULDER PAIN DEBILITY, RIGHT ANKLE FRACTURE DEBILITY, RIGHT ANKLE FRACTURE DEBILITY, RIGHT ANKLE FRACTURE DEBILITY, RIGHT ANKLE FRACTURE LAB WORK LAB WORK LAB WORK LAB WORK PENITENTIARY LABWORK PENITENTIARY LAB WORK PENITENTIARY LABWORK PENITENTIARY LABWORK LAB WORK LAB WORK HEAD INJURY GI BLEED Reason for Visit Ankle fracture, righ t Difficulty walking Contusion of face Fall Acute lower gastrointestinal bleeding Anticoagulated Visit for suture removal Chief Complaint PENITENTIARY LAB WOR K RIGHT SHOULDER PAIN DEBILITY, RIGHT ANKLE FRACTURE DEBILITY, RIGHT ANKLE FRACTURE DEBILITY, RIGHT ANKLE FRACTURE DEBILITY, RIGHT ANKLE FRACTURE LAB WORK LAB WORK LAB WORK LAB WORK PENITENTIARY LABWORK PENITENTIARY LAB WORK PENITENTIARY LABWORK PENITENTIARY LABWORK LAB WORK LAB WORK HEAD INJURY GI BLEED GI BLEED GI BLEED GI BLEED GI BLEED GI BLEED Reason for Visit Ankle fracture, righ t Difficulty walking Contusion of face Fall Acute lower gastrointestinal bleeding Anticoagulated Constipation Visit for suture removal Chief Complaint PENITENTIARY LAB WOR K RIGHT SHOULDER PAIN DEBILITY, RIGHT ANKLE FRACTURE DEBILITY, RIGHT ANKLE FRACTURE DEBILITY, RIGHT ANKLE FRACTURE DEBILITY, RIGHT ANKLE FRACTURE LAB WORK LAB WORK LAB WORK LAB WORK PENITENTIARY LABWORK PENITENTIARY LAB WORK PENITENTIARY LABWORK PENITENTIARY LABWORK LAB WORK LAB WORK HEAD INJURY PENITENTIARY LABWORK GI BLEED GI BLEED GI BLEED GI BLEED GI BLEED GI BLEED PENITENTIARY LAB WORK Reason for Visit Ankle fracture, righ t Difficulty walking Contusion of face Fall Acute lower gastrointestinal bleeding Visit for suture removal Chief Complaint DEBILITY, RIGHT ANKL E FRACTURE DEBILITY, RIGHT ANKLE FRACTURE DEBILITY, RIGHT ANKLE FRACTURE DEBILITY, RIGHT ANKLE FRACTURE LAB WORK LAB WORK LAB WORK LAB WORK PENITENTIARY LABWORK PENITENTIARY LAB WORK PENITENTIARY LABWORK PENITENTIARY LABWORK LAB WORK LAB WORK HEAD INJURY PENITENTIARY LABWORK GI BLEED GI BLEED GI BLEED GI BLEED GI BLEED GI BLEED PENITENTIARY LAB WORK PENITENTIARY LAB WORK 2 W F/U GI BLEED PENITENTIARY LABWORK Reason for Visit Ankle fracture, righ t Difficulty walking Contusion of face Fall Anticoagulated Constipation Acute lower gastrointestinal bleeding Visit for suture removal Anticoagulated Constipation Rectal bleeding Chief Complaint DEBILITY, RIGHT ANKL E FRACTURE DEBILITY, RIGHT ANKLE FRACTURE DEBILITY, RIGHT ANKLE FRACTURE DEBILITY, RIGHT ANKLE FRACTURE LAB WORK LAB WORK LAB WORK LAB WORK PENITENTIARY LABWORK PENITENTIARY LAB WORK PENITENTIARY LABWORK PENITENTIARY LABWORK LAB WORK LAB WORK HEAD INJURY PENITENTIARY LABWORK GI BLEED GI BLEED GI BLEED GI BLEED GI BLEED GI BLEED PENITENTIARY LAB WORK PENITENTIARY LAB WORK 2 W F/U GI BLEED PENITENTIARY LABWORK PENITENTIARY LAB WORK PENITENTIARY LAB WORK PENITENTIARY LAB WORK Reason for Visit Ankle fracture, righ t Difficulty walking Contusion of face Fall Anticoagulated Constipation Acute lower gastrointestinal bleeding Visit for suture removal Anticoagulated Constipation Rectal bleeding Chief Complaint DEBILITY, RIGHT ANKL E FRACTURE DEBILITY, RIGHT ANKLE FRACTURE DEBILITY, RIGHT ANKLE FRACTURE DEBILITY, RIGHT ANKLE FRACTURE LAB WORK LAB WORK LAB WORK LAB WORK PENITENTIARY LABWORK PENITENTIARY LAB WORK PENITENTIARY LABWORK PENITENTIARY LABWORK LAB WORK LAB WORK HEAD INJURY PENITENTIARY LABWORK GI BLEED GI BLEED GI BLEED GI BLEED GI BLEED GI BLEED PENITENTIARY LAB WORK PENITENTIARY LAB WORK 2 W F/U GI BLEED PENITENTIARY LABWORK PENITENTIARY LABWORK PENITENTIARY LAB WORK PENITENTIARY LAB WORK PENITENTIARY LAB WORK Reason for Visit Ankle fracture, righ t Difficulty walking Contusion of face Fall Anticoagulated Constipation Acute lower gastrointestinal bleeding Visit for suture removal Anticoagulated Constipation Rectal bleeding Chief Complaint LAB WORK LAB WORK PENITENTIARY LABWORK PENITENTIARY LAB WORK PENITENTIARY LABWORK PENITENTIARY LABWORK LAB WORK LAB WORK HEAD INJURY PENITENTIARY LABWORK GI BLEED GI BLEED GI BLEED GI BLEED GI BLEED GI BLEED PENITENTIARY LAB WORK PENITENTIARY LAB WORK 2 W F/U GI BLEED PENITENTIARY LABWORK PENITENTIARY LABWORK PENITENTIARY LAB WORK PENITENTIARY LAB WORK PENITENTIARY LAB WORK PENITENTIARY LAB WORK Reason for Visit Anticoagulated Constipation Acute lower gastrointestinal bleeding Visit for suture removal Anticoagulated Constipation Rectal bleeding Chief Complaint LAB WORK PENITENTIARY LABWORK PENITENTIARY LAB WORK PENITENTIARY LABWORK PENITENTIARY LABWORK LAB WORK LAB WORK HEAD INJURY PENITENTIARY LABWORK GI BLEED GI BLEED GI BLEED GI BLEED GI BLEED GI BLEED PENITENTIARY LAB WORK PENITENTIARY LAB WORK 2 W F/U GI BLEED PENITENTIARY LABWORK PENITENTIARY LABWORK PENITENTIARY LAB WORK PENITENTIARY LAB WORK PENITENTIARY LAB WORK PENITENTIARY LAB WORK PENITENTIARY LAB WORK Reason for Visit Anticoagulated Constipation Acute lower gastrointestinal bleeding Visit for suture removal Anticoagulated Constipation Rectal bleeding Chief Complaint PENITENTIARY LABWORK PENITENTIARY LABWORK LAB WORK LAB WORK HEAD INJURY PENITENTIARY LABWORK GI BLEED GI BLEED GI BLEED GI BLEED GI BLEED GI BLEED PENITENTIARY LAB WORK PENITENTIARY LAB WORK 2 W F/U GI BLEED PENITENTIARY LABWORK PENITENTIARY LABWORK PENITENTIARY LAB WORK PENITENTIARY LAB WORK PENITENTIARY LAB WORK PENITENTIARY LAB WORK PENITENTIARY LAB WORK PENITENTIARY LABWORK PENITENTIARY LAB WORK Reason for Visit Anticoagulated Constipation Acute lower gastrointestinal bleeding Visit for suture removal Anticoagulated Constipation Rectal bleeding Chief Complaint PENITENTIARY LABWORK PENITENTIARY LABWORK LAB WORK LAB WORK HEAD INJURY PENITENTIARY LABWORK GI BLEED GI BLEED GI BLEED GI BLEED GI BLEED GI BLEED PENITENTIARY LAB WORK PENITENTIARY LAB WORK 2 W F/U GI BLEED PENITENTIARY LABWORK PENITENTIARY LABWORK PENITENTIARY LAB WORK PENITENTIARY LAB WORK PENITENTIARY LAB WORK PENITENTIARY LAB WORK PENITENTIARY LAB WORK PENITENTIARY LABWORK PENITENTIARY LAB WORK PENITENTIARY LAB WORK Reason for Visit Anticoagulated Constipation Acute lower gastrointestinal bleeding Visit for suture removal Anticoagulated Constipation Rectal bleeding Chief Complaint LAB WORK HEAD INJURY PENITENTIARY LABWORK GI BLEED GI BLEED GI BLEED GI BLEED GI BLEED GI BLEED PENITENTIARY LAB WORK PENITENTIARY LAB WORK 2 W F/U GI BLEED PENITENTIARY LABWORK PENITENTIARY LABWORK PENITENTIARY LAB WORK PENITENTIARY LAB WORK PENITENTIARY LAB WORK PENITENTIARY LAB WORK PENITENTIARY LAB WORK PENITENTIARY LABWORK PENITENTIARY LAB WORK PENITENTIARY LAB WORK PENITENTIARY LAB WORK Reason for Visit Anticoagulated Constipation Acute lower gastrointestinal bleeding Visit for suture removal Anticoagulated Constipation Rectal bleeding Chief Complaint GI BLEED GI BLEED GI BLEED GI BLEED GI BLEED GI BLEED PENITENTIARY LAB WORK PENITENTIARY LAB WORK 2 W F/U GI BLEED PENITENTIARY LABWORK PENITENTIARY LABWORK PENITENTIARY LAB WORK PENITENTIARY LAB WORK PENITENTIARY LAB WORK PENITENTIARY LAB WORK PENITENTIARY LAB WORK PENITENTIARY LABWORK PENITENTIARY LAB WORK PENITENTIARY LAB WORK PENITENTIARY LAB WORK LABWORK Reason for Visit Anticoagulated Constipation Acute lower gastrointestinal bleeding Visit for suture removal Anticoagulated Constipation Rectal bleeding Chief Complaint PENITENTIARY LABWORK PENITENTIARY LAB WORK PENITENTIARY LAB WORK PENITENTIARY LAB WORK PENITENTIARY LAB WORK PENITENTIARY LAB WORK PENITENTIARY LABWORK PENITENTIARY LAB WORK PENITENTIARY LAB WORK PENITENTIARY LAB WORK LABWORK PENITENTIARY LAB WORK PENITENTIARY LABWORK PENITENTIARY LAB WORK Chief Complaint PENITENTIARY LAB WOR K PENITENTIARY LAB WORK PENITENTIARY LAB WORK PENITENTIARY LABWORK PENITENTIARY LAB WORK PENITENTIARY LAB WORK PENITENTIARY LAB WORK LABWORK PENITENTIARY LAB WORK PENITENTIARY LABWORK PENITENTIARY LAB WORK PENITENTIARY LABWORK Chief Complaint PENITENTIARY LABWORK PENITENTIARY LAB WORK PENITENTIARY LAB WORK PENITENTIARY LAB WORK LABWORK PENITENTIARY LAB WORK PENITENTIARY LABWORK PENITENTIARY LAB WORK PENITENTIARY LABWORK CERVICAL SPINE FX, SCREENING Chief Complaint PENITENTIARY LABWORK PENITENTIARY LAB WORK PENITENTIARY LABWORK PENITENTIARY LAB WORK CERVICAL SPINE FX, SCREENING PENITENTIARY LABWORK Chief Complaint PENITENTIARY LAB WOR K CERVICAL SPINE FX, SCREENING PENITENTIARY LABWORK PENITENTIARY LAB WORK PENITENTIARY LAB WORK Chief Complaint PENITENTIARY LABWORK PENITENTIARY LAB WORK PENITENTIARY LAB WORK PENITENTIARY LAB WORK Chief Complaint PENITENTIARY LAB WOR K PENITENTIARY LAB WORK PENITENTIARY LABWORK PENITENTIARY LAB WORK Chief Complaint PENITENTIARY LAB WOR K PENITENTIARY LABWORK PENITENTIARY LAB WORK PENITENTIARY LABWORK Chief Complaint PENITENTIARY LAB WOR K PENITENTIARY LABWORK PENITENTIARY LAB WORK PENITENTIARY LABWORK PENITENTIARY LABWORK Chief Complaint PENITENTIARY LAB WOR K PENITENTIARY LABWORK PENITENTIARY LAB WORK PENITENTIARY LABWORK PENITENTIARY LABWORK LABWORK Chief Complaint PENITENTIARY LABWORK PENITENTIARY LAB WORK PENITENTIARY LABWORK PENITENTIARY LABWORK LABWORK SKIN Chief Complaint PENITENTIARY LAB WOR K PENITENTIARY LABWORK PENITENTIARY LABWORK LABWORK SKIN LABWORK Chief Complaint PENITENTIARY LABWORK PENITENTIARY LABWORK LABWORK SKIN LABWORK LABWORK LABWORK Chief Complaint LABWORK SKIN LABWORK LABWORK LABWORK LABWORK LABWORK Additional Source Comments INFORMATION SOURCE (unrecogn ized section and content) DATE CREATED AUTHOR 01/14/2019 [facility] DATE CREATED AUTHOR AUTHOR'S ORGANIZ ATION 07/24/[address] [facility] DATE CREATED AUTHOR AUTHOR'S ORGANIZ ATION 03/13/2024 [facility] DATE CREATED AUTHOR AUTHOR'S ORGANIZ ATION 01/31/2025 [facility] Goals (unrecognized section and content) Goals may [...] Team Status: Active Member Role Status Dates Luan King MD Family Provider Active Dr. Gerda [...] Team Status: Active Member Role Status Dates Luan ROJO MD Family Provider Active Dr. Gerda [...] any alcohol or drug abuse patient.[facility] the event this information is protected by the Federal Confidentiality of Alcohol and Drug Abuse Patient Records regulations: The Federal rules restrict any use of the information to criminally investigate or prosecute any alcohol or drug abuse patient.[facility] the event this information is protected by the Federal Confidentiality of Alcohol and Drug Abuse Patient Records regulations: The Federal rules restrict any use of the information to criminally investigate or prosecute any alcohol or drug abuse patient.[facility] the event this information is protected by the Federal Confidentiality of Alcohol and Drug Abuse Patient Records regulations: The Federal rules restrict any use of the information to criminally investigate or prosecute any alcohol or drug abuse patient.[facility] the event this information is protected by the Federal Confidentiality of Alcohol and Drug Abuse Patient Records regulations: The Federal rules restrict any use of the information to criminally investigate or prosecute any alcohol or drug abuse patient.[facility] Reason for Visit (unrecogniz ed section and content) Reason Comments Follow Up Pain Numbness Reason Comments Blood Thinner Instructions for EMG Testi ng Reason Onset Date Comments EMG 03/07/2024 Specialty Diagnoses / Procedures Referred By Cherise calderón Referred [facility] Diagnoses Carpal tunnel syndrome of right wrist Disturbance of skin sensation Procedures EMG(NEURO/NI) NERVE CONDUCTION STUDIES 9-10 STUDIES Enedina Canchola PA-C [address] [place] [address] Neu[place] [facility] [place] [address] Referral ID Status Reason Start Date Expiration Date V isits Requested Visits Authorized [id number] Closed Auto-Generate d Referral 11/29/2023 11/28/2024 1 [...] BE BASED ON THE PRIMARY CLINICAL RECORDS. [facility] [employer] [facility]. provides no warranty or guarantee of the accuracy or completeness of information in this document.
[2025-02-07 09:42] LABS: Absolute Lymphocyte Count 0.89 X10^3/uL (0.83-4.51); Absolute Neutrophil Count 5.3 X10^3/uL (2.0-7.7); Basophil# 0.05 X10^3/uL; Basophil% 0.7 % (0-1); Eosinophil# 0.11 X10^3/uL; Eosinophils% 1.6 % (0-5); Hemoglobin 11.4 g/dL (12.0-15.0); Lymphocyte # 0.89 X10^3/ul (0.83-4.51); Lymphocyte % 12.9 % (19-41); Mean Corp Hgb Conc 32.6 g/dL (32-36); Mean Corpuscular Hgb 29.8 pg (27.0-32.0); Mean Corpuscular Volume 91.4 fL (81-99); Mean Platelet Vol. 10.6 fl (6.2-12.0); Monocyte% 7.2 % (0-10); NRBC Flagged by Analyzer 0 % (0-5); Neutrophil # 5.32 X10^3/uL (2.7-7.7); Neutrophil % 77.2 % (47-70); Platelet Count 195 K/mm3 (150-450); RBC Distribution Width CV 15.9 % (11.6-14.6); RBC Distribution Width SD 53.1 fl (35.1-43.9); Red Blood Count 3.83 M/mm3 (4.2-5.4); White Blood Count 6.9 K/mm3 (4.4-11.0)
[2025-02-07 09:49] LABS: International Normalized Ratio 1.1; Prothrombin Time (Protime)PT. 14.5 SECONDS (11.7-14.9)
[2025-02-07 09:50] LABS: Partial Thromboplast Time 33.3 Seconds (24.1-36.2)
[2025-02-07 10:08] LABS: Troponin T High Sensitivity 9 ng/L (<=14)
--- NOTE | 2025-02-07 10:20 | CM.ED ---
Social Work Date of referral: 02/07/25 Reason For Referral: Stroke Referred by: Social Work Identification Patient provided consent to Social Work visit. bible worker attempted to talk with patient about how she is feeling and to provide support however patient very soft spoken and speech was very difficult to understand. Ladonna Whitfield, BOOMSWING OPERATOR, DREDGE OPERATOR SUPERVISOR, 02/07/2025
[2025-02-07 10:26] LABS: Anion Gap 9 (5-15); BUN 18 mg/dL (4-19); BUN/Creat Ratio 23.7 RATIO (10-20); Calcium,Total 9.3 mg/dL (7.6-11.0); Carbon Dioxide 21.1 mmol/L (21.0-32.0); Chloride 107 mmol/L (98-108); Creatinine, Serum 0.77 mg/dL (0.70-1.20); EST Glomerular Filtration Rate 79 (>60); Estimated Creatinine Clearance 51.78 ml/min (50-250); Glucose 117 mg/dL (70-99); Sodium Level 137 mmol/L (133-145)
[2025-02-07] MEDS: 0.9% Normal Saline (1000mL) 1,000 ML 999 ML IV (11:06)
[2025-02-07 11:14] LABS: Bacteria 0 SEEN /hpf (None Seen); Mucous, Urine 0 SEEN /hpf (<or=2+); Red Blood Cells-Urine 0 SEEN /hpf (0-5); Squamous Epithelial Cells - UA 0 SEEN /hpf (5-10); White Blood Cells 0 SEEN /hpf (0-5)
[2025-02-07 11:21] LABS: Color, Urine Yellow (Yellow); Glucose, Dipstick Normal (Normal); Ketone-Dipstick Negative (Negative); Leukocyte Esterase-Dipstick Negative /ul (Negative); Nitrite-Dipstick Negative (Negative); Occult Blood-Urine Negative /ul (Negative); Protein-Dipstick Negative (Negative); Specific Gravity, Urine 1.005 (1.002-1.030); Urine Bilirubin Dipstick Negative (Negative); Urine Clarity Clear (Clear); Urine Urobilinogen Normal (Normal)
--- OUTSIDE RECORDS SUMMARY | 2025-02-07 12:21 | XMS RPT_ITS | CCD ---
Author Organization [facility] Care Team Providers Care Counter Caser Name Role Phone PROVIDER, UNKNOWN Attending Unavailable PROVIDER, UNKNOWN Referring Unavailable Cary, Luan Primary Care Unavailable Cary, Luan Attending Unavailable PROVIDER, UNKNOWN Referring Unavailable Cary, Luan Primary Care Unavailable Cary, Luan Attending Unavailable PROVIDER, UNKNOWN Referring Unavailable Cary, Luan Primary Care Unavailable Dr. Gerda Wilks [...] Emergency Provider Maegan Dr. Vu Admit Provider [facility], [facility] Vu [facility] Vu Other Provider Dr. Salina Li Attending Provider Dr. Salina Li Other Provider Dr. Emily Marti Other Provider Dr. Emily Marti Attending Provider [facility], Dr. Vu Referring Provider Dr. Gerda Wilks Referring Provider Unavailable Dr. Gerda Wilks Primary Care Provider Unavaila Dr. Tha Acosta Emergency Provider [facility], Dr. Vu Admit Provider [facility], Dr. Vu Attending Provider [facility], Dr. Vu Other Provider [facility], Dr. Vu Referring Provider Dr. Salina [...] Attending Unavailable Gudla Gerda ROJO Attending Unavailable StevedlGerda ku Primary Care Unavailable Gudla, Gerda Primary Care Unavailable Gudla Gerda ROJO Attending Unavailable Gudla, Gerda Primary Care Unavailable Gudla Gerda ROJO Attending Unavailable Gudla DARREL, Gerda Attending Unavailable Gudla, Gerda Primary Care Unavailable ChaikashifKendell Minor Attending Unavailabl e Gudla, Gerda Primary Care Unavailable Gudla, Gerda Primary Care Unavailable Gilmore, Eduardo Attending Unavailable Gilmore, Eduardo Referring Unavailable Gudla Giuseppe ROJOyothi Attending Unavailable Gudla OLS, Gerda Referring Unavailable Gudla, Gerda Primary Care Unavailable Gudla DARREL, Gerda Attending Unavailable Gudla, Gerda Primary Care Unavailable Gudla Giuseppe ROJOyothi Attending Unavailable Gudla, Gerda Primary Care Unavailable Allergies Allergy Classification Reported Allergen(s) Allergy Type Date of Onset Reaction(s) Facility (20 sources) natural latex rubber; Translations: [Latex, Natural Rubber] Propensity to adverse reactions 2022 Rash [facility] (5 sources) Latex; Translations: [LATEX] Drug Allergy 07-23-2023 Swelling [facility] Medications Current Medications Medication Drug Class(es) Dates [...] by chloe once daily. polyethylene glycol [phone] mg powder for oral solution (20 sources) [...] Take 1 tablet by chloe once daily. pravastatin sodium 20 mg oral [...] aftercare (20 sources) Drug therapy finding; Translations: [FDC (current) use of anticoagulants] 07-24-2022 Episodic Other aftercare (20 sources) Surgical follow-up; Translations: [Encounter for removal of sutures] 07-18-2022 Episodic Other aftercare (20 sources) rn oncology clinical (current) use of anticoagulants; Translations: [Long-term (current) [...] (1 source) Pain, unspecified; Translations: [Pain] Onset: 3 Episodic Sprains and strains (20 sources) Shoulder [...] Range Facility Basic Metabolic Profile (BMP )on 01-30-2025 BUN/CRE 23.4 RATIO High 10- [facility] Comment on above: Order Comment: 510-1 Performed By: #### L 500.2500, L100.0500 #### [facility] [address] [place], [address] Calcium [Mass/Vol] 9.2 mg/dL Normal 7.6-11.0 [facility] Comment on above: Order Comment: 510-1 Performed By: #### L 500.2500, L100.0500 #### [facility] [address] [place], [address] Chloride [Moles/Vol] 109 mmol/L High 98-108 [facility] Comment on above: Order Comment: 510-1 Performed By: #### L 500.2500, L100.0500 #### [facility] [address] [place], [address] CO2 [Moles/Vol] 23.1 mmol/L Normal 21.0-32.0 [facility] Comment on above: Order Comment: 510-1 Performed By: #### L 500.2500, L100.0500 #### [facility] [address] [place], [address] Creatinine [Mass/Vol] 0.85 mg/dL Normal 0.70-1.20 [facility] Comment on above: Order Comment: 510-1 Performed By: #### L 500.2500, L100.0500 #### [facility] [address] [place], [address] GAP 10 Normal 5-15 [facility] Comment on above: Order Comment: 510-1 Performed By: #### L 500.2500, L100.0500 #### [facility] [address] [place], [address] GFR/1.73 sq M.predicted among non-blacks MDRD (S/P/Bld) [Vol rate/Area] 71 mL/min/{1.73_m2} Normal >60 [facility] Comment on above: Order Comment: 510-1 Result Comment: mL/m in/1.73m2 CKD-EPI Creatinine Equation (2020) Performed By: #### L 500.2500, L100.0500 #### [facility] [address] [place], [address] Glucose [Mass/Vol] 112 mg/dL High 70-99 [facility] Comment on above: Order Comment: 510-1 Performed By: #### L 500.2500, L100.0500 #### [facility] [address] [place], [address] Potassium [Moles/Vol] 4.0 mmol/L Normal 3.3-5.1 [facility] Comment on above: Order Comment: 510-1 Performed By: #### L 500.2500, L100.0500 #### [facility] [address] [place], [address] Sodium [Moles/Vol] 143 mmol/L Normal 133-145 [facility] Comment on above: Order Comment: 510-1 Performed By: #### L 500.2500, L100.0500 #### [facility] [address] [place], [address] Urea nitrogen [Mass/Vol] 20 mg/dL High 4-19 [facility] Comment on above: Order Comment: 510-1 Performed By: #### L 500.2500, L100.0500 #### [facility] [address] [place], [address] CBC-Complete Blood Cnt No Di ffon 01-30-2025 Erythrocyte distribution width (RBC) [Ratio] 16.3 % High 11.6-14.6 [facility] Comment on above: Order Comment: 510-1 Performed By: #### L 500.2500, L100.0500 #### [facility] [address] [place], [address] Hematocrit (Bld) [Volume fraction] 36.9 % Low 37-47 [facility] Comment on above: Order Comment: 510-1 Performed By: #### L 500.2500, L100.0500 #### [facility] [address] [place], [address] Hemoglobin (Bld) [Mass/Vol] 11.9 g/dL Low 12.0-15.0 [facility] Comment on above: Order Comment: 510-1 Performed By: #### L 500.2500, L100.0500 #### [facility] [address] [place], [address] MCH (RBC) [Entitic mass] 29.8 pg Normal 27.0-32.0 [facility] Comment on above: Order Comment: 510-1 Performed By: #### L 500.2500, L100.0500 #### [facility] [address] [place], [address] MCHC (RBC) [Mass/Vol] 32.2 g/dL Normal 32-36 [facility] Comment on above: Order Comment: 510-1 Performed By: #### L 500.2500, L100.0500 #### [facility] [address] [place], [address] MCV (RBC) [Entitic vol] 92.3 fL Normal 81-99 [facility] Comment on above: Order Comment: 510-1 Performed By: #### L 500.2500, L100.0500 #### [facility] [address] [place], [address] Platelet mean volume (Bld) [Entitic vol] 11.2 fL Normal 6.2-12.0 [facility] Comment on above: Order Comment: 510-1 Performed By: #### L 500.2500, L100.0500 #### [facility] [address] [place], [address] Platelets (Bld) [#/Vol] 242 10*3/uL Normal 150-450 [facility] Comment on above: Order Comment: 510-1 Performed By: #### L 500.2500, L100.0500 #### [facility] [address] [place], [address] RBC (Bld) [#/Vol] 4.00 10*6/uL Low 4.2-5.4 [facility] Comment on above: Order Comment: 510-1 Performed By: #### L 500.2500, L100.0500 #### [facility] [address] [place], [address] RDW SD 55.4 fl High 35.1-43.9 [facility] Comment on above: Order Comment: 510-1 Performed By: #### L 500.2500, L100.0500 #### [facility] [address] [place], [address] WBC (Bld) [#/Vol] 6.8 10*3/uL Normal 4.4-11.0 [facility] Comment on above: Order Comment: 510-1 Performed By: #### L 500.2500, L100.0500 #### [facility] [address] [place], [address] L503.7505on 01-30-2025 Natriuretic peptide B (Bld) [Mass/Vol] 242 pg/mL Normal <=1800 [facility] Comment on above: Order Comment: 510-1 Result Comment: Hear t Failure Unlikely: < 300 pg/mL Heart Failure Likely < 50 Years: > 450 pg/mL 50-75 Years: > 900 pg/mL >75 Years: > 1800 pg/mL Performed By: #### L 500.2500, L100.0500 #### [facility] [address] [place], [address] Basic Metabolic Profile (BMP )on 01-29-2025 BUN Normal 4-19 [facility] Comment on above: Order Comment: 128 Result Comment: RENETTA ENT REFUSED Performed By: #### L 500.2500, L100.0500 #### [facility] [address] [place], [address] BUN/CRE Normal 10-20 [facility] Comment on above: Order Comment: 128 Result Comment: RENETTA ENT REFUSED Performed By: #### L 500.2500, L100.0500 #### [facility] [address] [place], [address] Calcium Normal 7.6-11.0 [facility] Comment on above: Order Comment: 128 Result Comment: RENETTA ENT REFUSED Performed By: #### L 500.2500, L100.0500 #### [facility] [address] [place], [address] CL Normal 98-108 [facility] Comment on above: Order Comment: 128 Result Comment: RENETTA ENT REFUSED Performed By: #### L 500.2500, L100.0500 #### [facility] [address] [place], [address] CO2 Normal 21.0-32.0 [facility] Comment on above: Order Comment: 128 Result Comment: RENETTA ENT REFUSED Performed By: #### L 500.2500, L100.0500 #### [facility] [address] [place], [address] CREAT,SERUM Normal 0.70-1.20 [facility] Comment on above: Order Comment: 128 Result Comment: RENETTA ENT REFUSED Performed By: #### L 500.2500, L100.0500 #### [facility] [address] [place], [address] eGFR Normal >60 [facility] Comment on above: Order Comment: 128 Result Comment: RENETTA ENT REFUSED Performed By: #### L 500.2500, L100.0500 #### [facility] [address] [place], [address] GAP Normal 5-15 [facility] Comment on above: Order Comment: 128 Result Comment: RENETTA ENT REFUSED Performed By: #### L 500.2500, L100.0500 #### [facility] [address] [place], [address] GLU Normal 70-99 [facility] Comment on above: Order Comment: 128 Result Comment: RENETTA ENT REFUSED Performed By: #### L 500.2500, L100.0500 #### [facility] [address] [place], [address] Potassium Normal 3.3-5.1 [facility] Comment on above: Order Comment: 128 Result Comment: RENETTA ENT REFUSED Performed By: #### L 500.2500, L100.0500 #### [facility] [address] [place], [address] Basic Metabolic Profile (BMP) Normal 133-145 [facility] Comment on above: Order Comment: 128 Result Comment: RENETTA ENT REFUSED Performed By: #### L 500.2500, L100.0500 #### [facility] [address] [place], [address] CBC-Complete Blood Cnt No Di ffon 01-29-2025 HCT Normal 37-47 [facility] Comment on above: Order Comment: 128 Result Comment: RENETTA ENT REFUSED Performed By: #### L 500.2500, L100.0500 #### [facility] [address] [place], [address] HGB Normal 12.0-15.0 [facility] Comment on above: Order Comment: 128 Result Comment: RENETTA ENT REFUSED Performed By: #### L 500.2500, L100.0500 #### [facility] [address] [place], [address] MCH Normal 27.0-32.0 [facility] Comment on above: Order Comment: 128 Result Comment: RENETTA ENT REFUSED Performed By: #### L 500.2500, L100.0500 #### [facility] [address] [place], [address] MCHC Normal 32-36 [facility] Comment on above: Order Comment: 128 Result Comment: RENETTA ENT REFUSED Performed By: #### L 500.2500, L100.0500 #### [facility] [address] [place], [address] MCV Normal 81-99 [facility] Comment on above: Order Comment: 128 Result Comment: RENETTA ENT REFUSED Performed By: #### L 500.2500, L100.0500 #### [facility] [address] [place], [address] PLT Normal 150-450 [facility] Comment on above: Order Comment: 128 Result Comment: RENETTA ENT REFUSED Performed By: #### L 500.2500, L100.0500 #### [facility] [address] [place], [address] RBC Normal 4.2-5.4 [facility] Comment on above: Order Comment: 128 Result Comment: RENETTA ENT REFUSED Performed By: #### L 500.2500, L100.0500 #### [facility] [address] [place], [address] RDW CV Normal 11.6-14.6 [facility] Comment on above: Order Comment: 128 Result Comment: RENETTA ENT REFUSED Performed By: #### L 500.2500, L100.0500 #### [facility] [address] [place], [address] RDW SD Normal 35.1-43.9 [facility] Comment on above: Order Comment: 128 Result Comment: RENETTA ENT REFUSED Performed By: #### L 500.2500, L100.0500 #### [facility] [address] [place], [address] WBC Normal 4.4-11.0 [facility] Comment on above: Order Comment: 128 Result Comment: RENETTA ENT REFUSED Performed By: #### L 500.2500, L100.0500 #### [facility] [address] [place], [address] Basic Metabolic Profile (BMP )on 08-15-2024 BUN/CRE 20.8 RATIO High 06-15 [facility] Comment on above: Order Comment: 128 Performed By: #### L 500.2500, L100.0500 #### [facility] [address] [place], [address] CA,Total 8.6 mg/dL Normal 8.5-10.1 [facility] Comment on above: Order Comment: 128 Performed By: #### L 500.2500, L100.0500 #### [facility] [address] [place], [address] Chloride [Moles/Vol] 111 mmol/L High 98-107 [facility] Comment on above: Order Comment: 128 Performed By: #### L 500.2500, L100.0500 #### [facility] [address] [place], [address] CO2 [Moles/Vol] 26.0 mmol/L Normal 21.0-32.0 [facility] Comment on above: Order Comment: 128 Performed By: #### L 500.2500, L100.0500 #### [facility] [address] [place], [address] Creatinine [Mass/Vol] 1.01 mg/dL Normal 0.55-1.02 [facility] Comment on above: Order Comment: 128 Result Comment: The validity of the calculated GFR GFRAA in patients over 70 years has not been determined. Clinical correlation is essential. Performed By: #### L 500.2500, L100.0500 #### [facility] [address] [place], [address] EST GFR - AA 68 mL/min Normal >60 [facility] Comment on above: Order Comment: 128 Result Comment: Afri can Indian GFR Calc Performed By: #### L 500.2500, L100.0500 #### [facility] [address] [place], [address] GAP 5 Normal 5-15 [facility] Comment on above: Order Comment: 128 Performed By: #### L 500.2500, L100.0500 #### [facility] [address] [place], [address] GFR/1.73 sq M.predicted among non-blacks MDRD (S/P/Bld) [Vol rate/Area] 56 mL/min/{1.73_m2} Low >60 [facility] Comment on above: Order Comment: 128 Result Comment: Non- GFR Calc Performed By: #### L 500.2500, L100.0500 #### [facility] [address] [place], [address] Glucose [Mass/Vol] 108 mg/dL High 74-106 [facility] Comment on above: Order Comment: 128 Result Comment: Fast ing Glucose result from 100 to 125 mg/dL suggests IMPAIRED HOMEOSTASIS per A.D.A. criteria. Performed By: #### L 500.2500, L100.0500 #### [facility] [address] [place], [address] Potassium [Moles/Vol] 3.7 mmol/L Normal 3.5-5.1 [facility] Comment on above: Order Comment: 128 Performed By: #### L 500.2500, L100.0500 #### [facility] [address] [place], [address] Sodium [Moles/Vol] 142 mmol/L Normal 136-145 [facility] Comment on above: Order Comment: 128 Performed By: #### L 500.2500, L100.0500 #### [facility] [address] [place], [address] Urea nitrogen [Mass/Vol] 21 mg/dL High 7-18 [facility] Comment on above: Order Comment: 128 Performed By: #### L 500.2500, L100.0500 #### [facility] [address] [place], [address] Magnesiumon 08-15-2024 Magnesium [Mass/Vol] 2.1 mg/dL Normal 1.6-2.6 [facility] Comment on above: Order Comment: 128 Performed By: #### L 500.2500, L100.0500 #### [facility] [address] [place], [address] Emergency Department Summary on 07-09-2024 Emergency Department Summary [facility] Medical Records Department [address] [place] [address] Emergency Department Summary 07/09/24 MR#: [id number] Acct: [id number] Name: KAMILAH MCKEON Rep #: [id number] : 1945 79 From: Eduardo Gilmore MD [...] (DVT and trauma) Recent Illness/Hospitaliza tion: No PFSH PFS Medical History Injury of back Rectal bleeding [...] moist muco (more content not included)... Normal [facility] Venous Duplex Imag/Limited/U nion 07-09-2024 Venous Duplex Imag/Limited/Uni [facility] [address] [place], [place] [address] Venous Duplex Imag/Limited/Uni MR#: [id number] Acct: [id number] Name: KAMILAH MCKEON Rep #: [id number] : 1945 F 79 From: Tha Washington MD PCP: Gerda Wilks MD Status: REG ER Study: Venous Duplex Imag/Limited/Uni Date of Exam: 09/08/23 Exam# [id number] Ordering Dr: Eduardo Gilmore MD -[id number] STUDY: VENOUS DOPPLER ULTRASOUND - LEFT [...] 20:24 EST Reading Location ID and State: [facility] / MD , Service support , CC: Dr. Eduardo Gilmore MD; Gerda Wilks MD [employer] Supervisor: Signed Normal [facility] CBC W/Diff, Automatedon 10-2 Absolute Lymph 1.58 X10 3/uL Normal 0.83-4.51 [facility] Comment on above: Order Comment: 510-1 Performed By: #### L 500.2500, L100.0500 #### [facility] [address] [place], [place], [address] Absolute Neut 4.7 X10 3/uL Normal 2.0-7.7 [facility] Comment on above: Order Comment: 510-1 Performed By: #### L 500.2500, L100.0500 #### [facility] [address] [place], [address] Basophils/100 WBC (Bld) 0.8 % Normal 0-1 [facility] Comment on above: Order Comment: 510-1 Performed By: #### L 500.2500, L100.0500 #### [facility] [address] [place], [address] Eosinophils/100 WBC (Bld) 4.6 % Normal 0-5 [facility] Comment on above: Order Comment: 510-1 Performed By: #### L 500.2500, L100.0500 #### [facility] [address] [place], [address] Erythrocyte distribution width (RBC) [Ratio] 16.0 % High 11.6-14.6 [facility] Comment on above: Order Comment: 510-1 Performed By: #### L 500.2500, L100.0500 #### [facility] [address] [place], [address] Hematocrit (Bld) [Volume fraction] 37.9 % Normal 37-47 [facility] Comment on above: Order Comment: 510-1 Performed By: #### L 500.2500, L100.0500 #### [facility] [address] [place], [address] Hemoglobin (Bld) [Mass/Vol] 12.2 g/dL Normal 12.0-15.0 [facility] Comment on above: Order Comment: 510-1 Performed By: #### L 500.2500, L100.0500 #### [facility] [address] [place], [address] IG% 0.400 Normal 0.0-0.9 [facility] Comment on above: Order Comment: 510-1 Result Comment: IG% - Immature Granulocytes (promyelocytes, myelocytes and metamyelocytes) > 1% indicates that a LEFT SHIFT is Present. Performed By: #### L 500.2500, L100.0500 #### [facility] [address] [place], [address] Lymphocytes/100 WBC (Bld) 20.9 % Normal 19-41 [facility] Comment on above: Order Comment: 510-1 Performed By: #### L 500.2500, L100.0500 #### [facility] [address] [place], [address] MCH (RBC) [Entitic mass] 29.6 pg Normal 27.0-32.0 [facility] Comment on above: Order Comment: 510-1 Performed By: #### L 500.2500, L100.0500 #### [facility] [address] [place], [address] MCHC (RBC) [Mass/Vol] 32.2 g/dL Normal 32-36 [facility] Comment on above: Order Comment: 510-1 Performed By: #### L 500.2500, L100.0500 #### [facility] [address] [place], [address] MCV (RBC) [Entitic vol] 92.0 fL Normal 81-99 [facility] Comment on above: Order Comment: 510-1 Performed By: #### L 500.2500, L100.0500 #### [facility] [address] [place], [address] Monocytes/100 WBC (Bld) 10.7 % High 0-10 [facility] Comment on above: Order Comment: 510-1 Performed By: #### L 500.2500, L100.0500 #### [facility] [address] [place], [address] Neutrophils/100 WBC (Bld) 62.6 % Normal 47-70 [facility] Comment on above: Order Comment: 510-1 Performed By: #### L 500.2500, L100.0500 #### [facility] [address] [place], [address] Nucleated RBC (Bld) [#/Vol] 0 10*3/uL Normal 0-5 [facility] Comment on above: Order Comment: 510-1 Performed By: #### L 500.2500, L100.0500 #### [facility] [address] [place], [id number] Platelet mean volume (Bld) [Entitic vol] 10.8 fL Normal 6.2-12.0 [facility] Comment on above: Order Comment: 510-1 Performed By: #### L 500.2500, L100.0500 #### [facility] [address] [place], [id number] Platelets (Bld) [#/Vol] 252 10*3/uL Normal 150-450 [facility] Comment on above: Order Comment: 510-1 Performed By: #### L 500.2500, L100.0500 #### [facility] [address] [place], [address] RBC (Bld) [#/Vol] 4.12 10*6/uL Low 4.2-5.4 [facility] Comment on above: Order Comment: 510-1 Performed By: #### L 500.2500, L100.0500 #### [facility] [address] [place], [id number] RDW SD 54.4 fl High 35.1-43.9 [facility] Comment on above: Order Comment: 510-1 Performed By: #### L 500.2500, L100.0500 #### [facility] [address] [place], [id number] WBC (Bld) [#/Vol] 7.6 10*3/uL Normal 4.4-11.0 [facility] Comment on above: Order Comment: 510-1 Performed By: #### L 500.2500, L100.0500 #### [facility] [address] [place], [id number] Comprehensive Metabolic Prof ilon 06-16-2024 Albumin [Mass/Vol] 3.3 g/dL Normal 3.2-5.0 [facility] Comment on above: Order Comment: 128 Performed By: #### L 500.2500, L100.0500 #### [facility] [address] [place], [address] Albumin/Globulin [Mass ratio] 0.7 {ratio} Low 0.9-2.4 [facility] Comment on above: Order Comment: 128 Performed By: #### L 500.2500, L100.0500 #### [facility] [address] [place], [address] ALK P 64 U/L Normal 45-117 [facility] Comment on above: Order Comment: 128 Performed By: #### L 500.2500, L100.0500 #### [facility] [address] [place], [address] ALT [Catalytic activity/Vol] 15 U/L Normal 13-56 [facility] Comment on above: Order Comment: 128 Performed By: #### L 500.2500, L100.0500 #### [facility] [address] [place], [address] AST [Catalytic activity/Vol] 13 U/L Low 15-37 [facility] Comment on above: Order Comment: 128 Performed By: #### L 500.2500, L100.0500 #### [facility] [address] [place], [address] Bilirubin [Mass/Vol] 0.30 mg/dL Normal 0.20-1.00 [facility] Comment on above: Order Comment: 128 Result Comment: For patients on eltrombopag therapy, use of Dimension [place] TBIL is not recommended. Performed By: #### L 500.2500, L100.0500 #### [facility] [address] [place], [address] BUN/CRE 22.8 RATIO High 10-20 [facility] Comment on above: Order Comment: 128 Performed By: #### L 500.2500, L100.0500 #### [facility] [address] [place], [address] CA,Total 9.2 mg/dL Normal 8.5-10.1 [facility] Comment on above: Order Comment: 128 Performed By: #### L 500.2500, L100.0500 #### [facility] [address] [place], [address] Chloride [Moles/Vol] 108 mmol/L High 98-107 [facility] Comment on above: Order Comment: 128 Performed By: #### L 500.2500, L100.0500 #### [facility] [address] [place], [address] CO2 [Moles/Vol] 26.0 mmol/L Normal 21.0-32.0 [facility] Comment on above: Order Comment: 128 Performed By: #### L 500.2500, L100.0500 #### [facility] [address] [place], [address] Creatinine [Mass/Vol] 0.97 mg/dL Normal 0.55-1.02 [facility] Comment on above: Order Comment: 128 Result Comment: The validity of the calculated GFR GFRAA in patients over 70 years has not been determined. Clinical correlation is essential. Performed By: #### L 500.2500, L100.0500 #### [facility] [address] [place], [address] EST GFR - AA 72 mL/min Normal >60 [facility] Comment on above: Order Comment: 128 Result Comment: Afri can Indian GFR Calc Performed By: #### L 500.2500, L100.0500 #### [facility] [address] [place], [address] GAP 8 Normal 5-15 [facility] Comment on above: Order Comment: 128 Performed By: #### L 500.2500, L100.0500 #### [facility] [address] [place], [address] GFR/1.73 sq M.predicted among non-blacks MDRD (S/P/Bld) [Vol rate/Area] 59 mL/min/{1.73_m2} Low >60 [facility] Comment on above: Order Comment: 128 Result Comment: Non- GFR Calc Performed By: #### L 500.2500, L100.0500 #### [facility] [address] [place], [address] Globulin (S) [Mass/Vol] 4.6 g/dL High 2.2-4.2 [facility] Comment on above: Order Comment: 128 Performed By: #### L 500.2500, L100.0500 #### [facility] [address] [place], [address] Glucose [Mass/Vol] 105 mg/dL Normal 74-106 [facility] Comment on above: Order Comment: 128 Result Comment: Fast ing Glucose result from 100 to 125 mg/dL suggests IMPAIRED HOMEOSTASIS per A.D.A. criteria. Performed By: #### L 500.2500, L100.0500 #### [facility] [address] [place], [address] Potassium [Moles/Vol] 4.2 mmol/L Normal 3.5-5.1 [facility] Comment on above: Order Comment: 128 Performed By: #### L 500.2500, L100.0500 #### [facility] [address] [place], [address] Sodium [Moles/Vol] 142 mmol/L Normal 136-145 [facility] Comment on above: Order Comment: 128 Performed By: #### L 500.2500, L100.0500 #### [facility] [address] [place], [address] T PROT 7.9 g/dL Normal 6.4-8.2 [facility] Comment on above: Order Comment: 128 Performed By: #### L 500.2500, L100.0500 #### [facility] [address] [place], [address] Urea nitrogen [Mass/Vol] 22 mg/dL High 7-18 [facility] Comment on above: Order Comment: 128 Performed By: #### L 500.2500, L100.0500 #### [facility] [address] [place], [address] Hemoglobin A1con 06-16-2024 HbA1c (Bld) [Mass fraction] 6.1 % High 3.8-5.6 [facility] Comment on above: Order Comment: 128 Result Comment: Norm al < 5.7 % Prediabetic 5.7 - 6.4 % Diabetic >or= 6.5 % Please note range changes. Performed By: #### L 500.2500, L100.0500 #### [facility] [address] [place], [address] Magnesiumon 06-16-2024 Magnesium [Mass/Vol] 2.5 mg/dL Normal 1.6-2.6 [facility] Comment on above: Order Comment: 128 Performed By: #### L 500.2500, L100.0500 #### [facility] [address] [place], [address] Thyroid Stim Hormone (TSH)on 06-16-2024 TSH 2.550 uIU/mL Normal 0.358-3.740 [facility] Comment on above: Order Comment: 128 Performed By: #### L 500.2500, L100.0500 #### [facility] [address] [place], [address] Vitamin B12on 06-16-2024 Cobalamin (Vitamin B12) [Mass/Vol] 546 pg/mL Normal 211-911 [facility] Comment on above: Order Comment: 510-1 Performed By: #### L 500.2500, L100.0500 #### [facility] [address] [place], [address] Vitamin D,25 Hydroxyon 06-16 Vitamin D 25-OH 43.9 ng/mL Normal [facility] Comment on above: Order Comment: 128 Result Comment: Paz min D 25(OH) Status Range Deficiency <20 ng/mL (50nmol/L) Insufficiency 20 - 30 ng/mL (50 - 75 nmol/L) Sufficiency 30 - 100 ng/mL (75 - 250 nmol/L) Toxicity >100 ng/mL (>250 nmol/L) Performed By: #### L 500.2500, L100.0500 #### [facility] [address] [place], [address] CBC-Complete Blood Cnt No Di ffon 05-21-2024 Erythrocyte distribution width (RBC) [Ratio] 16.2 % High 11.6-14.6 [facility] Comment on above: Order Comment: 510-1 Performed By: #### L 500.2500, L100.0500 #### [facility] [address] [place], [address] Hematocrit (Bld) [Volume fraction] 38.4 % Normal 37-47 [facility] Comment on above: Order Comment: 510-1 Performed By: #### L 500.2500, L100.0500 #### [facility] [address] [place], [address] Hemoglobin (Bld) [Mass/Vol] 11.7 g/dL Low 12.0-15.0 [facility] Comment on above: Order Comment: 510-1 Performed By: #### L 500.2500, L100.0500 #### [facility] [address] [place], [address] MCH (RBC) [Entitic mass] 28.3 pg Normal 27.0-32.0 [facility] Comment on above: Order Comment: 510-1 Performed By: #### L 500.2500, L100.0500 #### [facility] [address] [place], [address] MCHC (RBC) [Mass/Vol] 30.5 g/dL Low 32-36 [facility] Comment on above: Order Comment: 510-1 Performed By: #### L 500.2500, L100.0500 #### [facility] [address] [place], [address] MCV (RBC) [Entitic vol] 93.0 fL Normal 81-99 [facility] Comment on above: Order Comment: 510-1 Performed By: #### L 500.2500, L100.0500 #### [facility] [address] [place], [address] Platelet mean volume (Bld) [Entitic vol] 10.5 fL Normal 6.2-12.0 [facility] Comment on above: Order Comment: 510-1 Performed By: #### L 500.2500, L100.0500 #### [facility] [address] [place], [address] Platelets (Bld) [#/Vol] 267 10*3/uL Normal 150-450 [facility] Comment on above: Order Comment: 510-1 Performed By: #### L 500.2500, L100.0500 #### [facility] [address] [place], [address] RBC (Bld) [#/Vol] 4.13 10*6/uL Low 4.2-5.4 [facility] Comment on above: Order Comment: 510-1 Performed By: #### L 500.2500, L100.0500 #### [facility] [address] [place], [address] RDW SD 55.2 fl High 35.1-43.9 [facility] Comment on above: Order Comment: 510-1 Performed By: #### L 500.2500, L100.0500 #### [facility] [address] [place], [address] WBC (Bld) [#/Vol] 6.9 10*3/uL Normal 4.4-11.0 [facility] Comment on above: Order Comment: 510-1 Performed By: #### L 500.2500, L100.0500 #### [facility] [address] [place], [address] CRPon 05-21-2024 C-REACTIVE PROT 11.80 mg/L High 0.0-3.0 [facility] Comment on above: Order Comment: 510- Result Comment: C-Re active Protein (CRP) provides useful information for the diagnosis, therapy and monitoring of inflammatory processes and associated diseases. For the evaluation of Relative Risk for Cardiovascular Disease, a High Sensitivity CRP (HSCRP) should be ordered. Performed By: #### L 500.2500, L100.0500 #### [facility] [address] [place], [address] Uric Acidon 05-21-2024 URIC 4.1 mg/dL Normal 2.6-6.0 [facility] Comment on above: Order Comment: 510- Result Comment: The drugs N-Acetylcysteine and Metamizole may falsely depress this assay. Performed By: #### L 500.2500, L100.0500 #### [facility] [address] [place], [address] Basic Metabolic Profile (BMP )on 05-16-2024 BUN/CRE 28.8 RATIO High 06-15 [facility] Comment on above: Order Comment: 510-1 Performed By: #### L 500.2500, L100.0500 #### [facility] [address] [place], [address] CA,Total 9.4 mg/dL Normal 8.5-10.1 [facility] Comment on above: Order Comment: 510-1 Performed By: #### L 500.2500, L100.0500 #### [facility] [address] [place], [address] Chloride [Moles/Vol] 109 mmol/L High 98-107 [facility] Comment on above: Order Comment: 510- Performed By: #### L 500.2500, L100.0500 #### [facility] [address] [place], [address] CO2 [Moles/Vol] 23.0 mmol/L Normal 21.0-32.0 [facility] Comment on above: Order Comment: 510- Performed By: #### L 500.2500, L100.0500 #### [facility] [address] [place], [address] Creatinine [Mass/Vol] 0.90 mg/dL Normal 0.55-1.02 [facility] Comment on above: Order Comment: 510- Result Comment: The validity of the calculated GFR GFRAA in patients over 70 years has not been determined. Clinical correlation is essential. Performed By: #### L 500.2500, L100.0500 #### [facility] [address] [place], [address] EST GFR - AA 78 mL/min Normal >60 [facility] Comment on above: Order Comment: 510- Result Comment: Afri can Indian GFR Calc Performed By: #### L 500.2500, L100.0500 #### [facility] [address] [place], [address] GAP 7 Normal 5-15 [facility] Comment on above: Order Comment: 510- Performed By: #### L 500.2500, L100.0500 #### [facility] [address] [place], [address] GFR/1.73 sq M.predicted among non-blacks MDRD (S/P/Bld) [Vol rate/Area] 64 mL/min/{1.73_m2} Normal >60 [facility] Comment on above: Order Comment: 510- Result Comment: Non- GFR Calc Performed By: #### L 500.2500, L100.0500 #### [facility] [address] [place], [address] Glucose [Mass/Vol] 111 mg/dL High 74-106 [facility] Comment on above: Order Comment: 510-1 Result Comment: Fast ing Glucose result from 100 to 125 mg/dL suggests IMPAIRED HOMEOSTASIS per A.D.A. criteria. Performed By: #### L 500.2500, L100.0500 #### [facility] [address] [place], [address] Potassium [Moles/Vol] 3.9 mmol/L Normal 3.5-5.1 [facility] Comment on above: Order Comment: 510-1 Performed By: #### L 500.2500, L100.0500 #### [facility] [address] [place], [address] Sodium [Moles/Vol] 139 mmol/L Normal 136-145 [facility] Comment on above: Order Comment: 510-1 Performed By: #### L 500.2500, L100.0500 #### [facility] [address] [place], [address] Urea nitrogen [Mass/Vol] 26 mg/dL High 7-18 [facility] Comment on above: Order Comment: 510-1 Performed By: #### L 500.2500, L100.0500 #### [facility] [address] [place], [address] CBC-Complete Blood Cnt No Di ffon 05-16-2024 Erythrocyte distribution width (RBC) [Ratio] 16.4 % High 11.6-14.6 [facility] Comment on above: Order Comment: 510-1 Performed By: #### L 500.2500, L100.0500 #### [facility] [address] [place], [address] Hematocrit (Bld) [Volume fraction] 39.2 % Normal 37-47 [facility] Comment on above: Order Comment: 510-1 Performed By: #### L 500.2500, L100.0500 #### [facility] [address] [place], [address] Hemoglobin (Bld) [Mass/Vol] 12.3 g/dL Normal 12.0-15.0 [facility] Comment on above: Order Comment: 510-1 Performed By: #### L 500.2500, L100.0500 #### [facility] [address] [place], [address] MCH (RBC) [Entitic mass] 28.9 pg Normal 27.0-32.0 [facility] Comment on above: Order Comment: 510-1 Performed By: #### L 500.2500, L100.0500 #### [facility] [address] [place], [address] MCHC (RBC) [Mass/Vol] 31.4 g/dL Low 32-36 [facility] Comment on above: Order Comment: 510-1 Performed By: #### L 500.2500, L100.0500 #### [facility] [address] [place], [address] MCV (RBC) [Entitic vol] 92.2 fL Normal 81-99 [facility] Comment on above: Order Comment: 510-1 Performed By: #### L 500.2500, L100.0500 #### [facility] [address] [place], [address] Platelet mean volume (Bld) [Entitic vol] 10.7 fL Normal 6.2-12.0 [facility] Comment on above: Order Comment: 510-1 Performed By: #### L 500.2500, L100.0500 #### [facility] [address] [place], [address] Platelets (Bld) [#/Vol] 245 10*3/uL Normal 150-450 [facility] Comment on above: Order Comment: 510-1 Performed By: #### L 500.2500, L100.0500 #### [facility] [address] [place], [address] RBC (Bld) [#/Vol] 4.25 10*6/uL Normal 4.2-5.4 [facility] Comment on above: Order Comment: 510-1 Performed By: #### L 500.2500, L100.0500 #### [facility] [address] [place], [address] RDW SD 54.8 fl High 35.1-43.9 [facility] Comment on above: Order Comment: 510-1 Performed By: #### L 500.2500, L100.0500 #### [facility] [address] [place], [address] WBC (Bld) [#/Vol] 7.7 10*3/uL Normal 4.4-11.0 [facility] Comment on above: Order Comment: 510-1 Performed By: #### L 500.2500, L100.0500 #### [facility] [address] [place], [address] Basic Metabolic Profile (BMP )on 04-18-2024 BUN/CRE 24.8 RATIO High 10-20 [facility] Comment on above: Order Comment: 510.1 Performed By: #### L 500.2500, L100.0500 #### [facility] [address] [place], [address] CA,Total 9.0 mg/dL Normal 8.5-10.1 [facility] Comment on above: Order Comment: 510.1 Performed By: #### L 500.2500, L100.0500 #### [facility] [address] [place], [address] Chloride [Moles/Vol] 107 mmol/L Normal 98-107 [facility] Comment on above: Order Comment: 510.1 Performed By: #### L 500.2500, L100.0500 #### [facility] [address] [place], [address] CO2 [Moles/Vol] 26.0 mmol/L Normal 21.0-32.0 [facility] Comment on above: Order Comment: 510.1 Performed By: #### L 500.2500, L100.0500 #### [facility] [address] [place], [address] Creatinine [Mass/Vol] 0.89 mg/dL Normal 0.55-1.02 [facility] Comment on above: Order Comment: 510.1 Result Comment: The validity of the calculated GFR GFRAA in patients over 70 years has not been determined. Clinical correlation is essential. Performed By: #### L 500.2500, L100.0500 #### [facility] [address] [place], [address] EST GFR - AA 79 mL/min Normal >60 [facility] Comment on above: Order Comment: 510.1 Result Comment: Afri can Indian GFR Calc Performed By: #### L 500.2500, L100.0500 #### [facility] [address] [place], [address] GAP 7 Normal 5-15 [facility] Comment on above: Order Comment: 510.1 Performed By: #### L 500.2500, L100.0500 #### [facility] [address] [place], [address] GFR/1.73 sq M.predicted among non-blacks MDRD (S/P/Bld) [Vol rate/Area] 66 mL/min/{1.73_m2} Normal >60 [facility] Comment on above: Order Comment: 510.1 Result Comment: Non- GFR Calc Performed By: #### L 500.2500, L100.0500 #### [facility] [address] [place], [address] Glucose [Mass/Vol] 122 mg/dL High 74-106 [facility] Comment on above: Order Comment: 510.1 Result Comment: Fast ing Glucose result from 100 to 125 mg/dL suggests IMPAIRED HOMEOSTASIS per A.D.A. criteria. Performed By: #### L 500.2500, L100.0500 #### [facility] [address] [place], [address] Potassium [Moles/Vol] 3.7 mmol/L Normal 3.5-5.1 [facility] Comment on above: Order Comment: 510.1 Performed By: #### L 500.2500, L100.0500 #### [facility] [address] [place], [address] Sodium [Moles/Vol] 140 mmol/L Normal 136-145 [facility] Comment on above: Order Comment: 510.1 Performed By: #### L 500.2500, L100.0500 #### [facility] [address] [place], [address] Urea nitrogen [Mass/Vol] 22 mg/dL High 7-18 [facility] Comment on above: Order Comment: 510.1 Performed By: #### L 500.2500, L100.0500 #### [facility] [address] [place], [address] CBC-Complete Blood Cnt No Di ffon 04-18-2024 Erythrocyte distribution width (RBC) [Ratio] 15.6 % High 11.6-14.6 [facility] Comment on above: Order Comment: 510.1 Performed By: #### L 500.2500, L100.0500 #### [facility] [address] [place], [address] Hematocrit (Bld) [Volume fraction] 37.4 % Normal 37-47 [facility] Comment on above: Order Comment: 510.1 Performed By: #### L 500.2500, L100.0500 #### [facility] [address] [place], [address] Hemoglobin (Bld) [Mass/Vol] 11.8 g/dL Low 12.0-15.0 [facility] Comment on above: Order Comment: 510.1 Performed By: #### L 500.2500, L100.0500 #### [facility] [address] [place], [address] MCH (RBC) [Entitic mass] 28.7 pg Normal 27.0-32.0 [facility] Comment on above: Order Comment: 510.1 Performed By: #### L 500.2500, L100.0500 #### [facility] [address] [place], [address] MCHC (RBC) [Mass/Vol] 31.6 g/dL Low 32-36 [facility] Comment on above: Order Comment: 510.1 Performed By: #### L 500.2500, L100.0500 #### [facility] [address] [place], [address] MCV (RBC) [Entitic vol] 91.0 fL Normal 81-99 [facility] Comment on above: Order Comment: 510.1 Performed By: #### L 500.2500, L100.0500 #### [facility] [address] [place], [address] Platelet mean volume (Bld) [Entitic vol] 10.6 fL Normal 6.2-12.0 [facility] Comment on above: Order Comment: 510.1 Performed By: #### L 500.2500, L100.0500 #### [facility] [address] [place], [address] Platelets (Bld) [#/Vol] 266 10*3/uL Normal 150-450 [facility] Comment on above: Order Comment: 510.1 Performed By: #### L 500.2500, L100.0500 #### [facility] [address] [place], [address] RBC (Bld) [#/Vol] 4.11 10*6/uL Low 4.2-5.4 [facility] Comment on above: Order Comment: 510.1 Performed By: #### L 500.2500, L100.0500 #### [facility] [address] [place], [address] RDW SD 51.7 fl High 35.1-43.9 [facility] Comment on above: Order Comment: 510.1 Performed By: #### L 500.2500, L100.0500 #### [facility] [address] [place], [address] WBC (Bld) [#/Vol] 8.6 10*3/uL Normal 4.4-11.0 [facility] Comment on above: Order Comment: 510.1 Performed By: #### L 500.2500, L100.0500 #### [facility] [address] [place], [address] Basic Metabolic Profile (BMP )on 03-21-2024 BUN/CRE 23.6 RATIO High 10-20 [facility] Comment on above: Order Comment: 510-1 Performed By: #### L 500.2500, L100.0500 #### [facility] [address] [place], [address] CA,Total 9.1 mg/dL Normal 8.5-10.1 [facility] Comment on above: Order Comment: 510-1 Performed By: #### L 500.2500, L100.0500 #### [facility] [address] [place], [address] Chloride [Moles/Vol] 111 mmol/L High 98-107 [facility] Comment on above: Order Comment: 510-1 Performed By: #### L 500.2500, L100.0500 #### [facility] [address] [place], [address] CO2 [Moles/Vol] 24.0 mmol/L Normal 21.0-32.0 [facility] Comment on above: Order Comment: 510- Performed By: #### L 500.2500, L100.0500 #### [facility] [address] [place], [address] Creatinine [Mass/Vol] 0.89 mg/dL Normal 0.55-1.02 [facility] Comment on above: Order Comment: 510- Result Comment: The validity of the calculated GFR GFRAA in patients over 70 years has not been determined. Clinical correlation is essential. Performed By: #### L 500.2500, L100.0500 #### [facility] [address] [place], [address] EST GFR - AA 79 mL/min Normal >60 [facility] Comment on above: Order Comment: 510- Result Comment: Afri can Indian GFR Calc Performed By: #### L 500.2500, L100.0500 #### [facility] [address] [place], [address] GAP 4 Low 5-15 [facility] Comment on above: Order Comment: - Performed By: #### L 500.2500, L100.0500 #### [facility] [address] [place], [address] GFR/1.73 sq M.predicted among non-blacks MDRD (S/P/Bld) [Vol rate/Area] 65 mL/min/{1.73_m2} Normal >60 [facility] Comment on above: Order Comment: 510- Result Comment: Non- GFR Calc Performed By: #### L 500.2500, L100.0500 #### [facility] [address] [place], [address] Glucose [Mass/Vol] 118 mg/dL High 74-106 [facility] Comment on above: Order Comment: 510-1 Result Comment: Fast ing Glucose result from 100 to 125 mg/dL suggests IMPAIRED HOMEOSTASIS per A.D.A. criteria. Performed By: #### L 500.2500, L100.0500 #### [facility] [address] [place], [address] Potassium [Moles/Vol] 4.0 mmol/L Normal 3.5-5.1 [facility] Comment on above: Order Comment: 510-1 Performed By: #### L 500.2500, L100.0500 #### [facility] [address] [place], [address] Sodium [Moles/Vol] 139 mmol/L Normal 136-145 [facility] Comment on above: Order Comment: 510-1 Performed By: #### L 500.2500, L100.0500 #### [facility] [address] [place], [address] Urea nitrogen [Mass/Vol] 21 mg/dL High 7-18 [facility] Comment on above: Order Comment: 510-1 Performed By: #### L 500.2500, L100.0500 #### [facility] [address] [place], [address] CBC-Complete Blood Cnt No Di ffon 03-21-2024 Erythrocyte distribution width (RBC) [Ratio] 16.2 % High 11.6-14.6 [facility] Comment on above: Order Comment: 510-1 Performed By: #### L 500.2500, L100.0500 #### [facility] [address] [place], [address] Hematocrit (Bld) [Volume fraction] 37.8 % Normal 37-47 [facility] Comment on above: Order Comment: 510-1 Performed By: #### L 500.2500, L100.0500 #### [facility] [address] [place], [address] Hemoglobin (Bld) [Mass/Vol] 12.2 g/dL Normal 12.0-15.0 [facility] Comment on above: Order Comment: 510-1 Performed By: #### L 500.2500, L100.0500 #### [facility] [address] [place], [address] MCH (RBC) [Entitic mass] 29.0 pg Normal 27.0-32.0 [facility] Comment on above: Order Comment: 510-1 Performed By: #### L 500.2500, L100.0500 #### [facility] [address] [place], [address] MCHC (RBC) [Mass/Vol] 32.3 g/dL Normal 32-36 [facility] Comment on above: Order Comment: 510-1 Performed By: #### L 500.2500, L100.0500 #### [facility] [address] [place], [address] MCV (RBC) [Entitic vol] 90.0 fL Normal 81-99 [facility] Comment on above: Order Comment: 510-1 Performed By: #### L 500.2500, L100.0500 #### [facility] [address] [place], [address] Platelet mean volume (Bld) [Entitic vol] 10.4 fL Normal 6.2-12.0 [facility] Comment on above: Order Comment: 510-1 Performed By: #### L 500.2500, L100.0500 #### [facility] [address] [place], [address] Platelets (Bld) [#/Vol] 297 10*3/uL Normal 150-450 [facility] Comment on above: Order Comment: 510-1 Performed By: #### L 500.2500, L100.0500 #### [facility] [address] [place], [address] RBC (Bld) [#/Vol] 4.20 10*6/uL Normal 4.2-5.4 [facility] Comment on above: Order Comment: 510-1 Performed By: #### L 500.2500, L100.0500 #### [facility] [address] [place], [address] RDW SD 52.7 fl High 35.1-43.9 [facility] Comment on above: Order Comment: 510-1 Performed By: #### L 500.2500, L100.0500 #### [facility] [address] [place], [address] WBC (Bld) [#/Vol] 6.7 10*3/uL Normal 4.4-11.0 [facility] Comment on above: Order Comment: 510-1 Performed By: #### L 500.2500, L100.0500 #### [facility] [address] [place], [address] EMG(NEURO/NI)on 03-07-2024 Results can be seen in attached scanned documents. If you are a patient reviewing this test result, call the doctor who ordered the test with any questions. [facility] Basic Metabolic Profile (BMP )on 02-22-2024 BUN/CRE 22.0 RATIO High 10-20 [facility] Comment on above: Order Comment: 514-1 Performed By: #### L 500.2500, L100.0500 #### [facility] [address] [place], [address] CA,Total 9.1 mg/dL Normal 8.5-10.1 [facility] Comment on above: Order Comment: 514-1 Performed By: #### L 500.2500, L100.0500 #### [facility] [address] [place], [address] Chloride [Moles/Vol] 111 mmol/L High 98-107 [facility] Comment on above: Order Comment: 514-1 Performed By: #### L 500.2500, L100.0500 #### [facility] [address] [place], [address] CO2 [Moles/Vol] 26.0 mmol/L Normal 21.0-32.0 [facility] Comment on above: Order Comment: 514-1 Performed By: #### L 500.2500, L100.0500 #### [facility] [address] [place], [address] Creatinine [Mass/Vol] 0.86 mg/dL Normal 0.55-1.02 [facility] Comment on above: Order Comment: 514-1 Result Comment: The validity of the calculated GFR GFRAA in patients over 70 years has not been determined. Clinical correlation is essential. Performed By: #### L 500.2500, L100.0500 #### [facility] [address] [place], [address] EST GFR - AA 82 mL/min Normal >60 [facility] Comment on above: Order Comment: 514- Result Comment: Afri can Indian GFR Calc Performed By: #### L 500.2500, L100.0500 #### [facility] [address] [place], [address] GAP 4 Low 5-15 [facility] Comment on above: Order Comment: 514-1 Performed By: #### L 500.2500, L100.0500 #### [facility] [address] [place], [address] GFR/1.73 sq M.predicted among non-blacks MDRD (S/P/Bld) [Vol rate/Area] 68 mL/min/{1.73_m2} Normal >60 [facility] Comment on above: Order Comment: 514- Result Comment: Non- GFR Calc Performed By: #### L 500.2500, L100.0500 #### [facility] [address] [place], [address] Glucose [Mass/Vol] 117 mg/dL High 74-106 [facility] Comment on above: Order Comment: 514-1 Result Comment: Fast ing Glucose result from 100 to 125 mg/dL suggests IMPAIRED HOMEOSTASIS per A.D.A. criteria. Performed By: #### L 500.2500, L100.0500 #### [facility] [address] [place], [address] Potassium [Moles/Vol] 4.0 mmol/L Normal 3.5-5.1 [facility] Comment on above: Order Comment: 514-1 Performed By: #### L 500.2500, L100.0500 #### [facility] [address] [place], [address] Sodium [Moles/Vol] 141 mmol/L Normal 136-145 [facility] Comment on above: Order Comment: 514-1 Performed By: #### L 500.2500, L100.0500 #### [facility] [address] [place], [address] Urea nitrogen [Mass/Vol] 19 mg/dL High 7-18 [facility] Comment on above: Order Comment: 514-1 Performed By: #### L 500.2500, L100.0500 #### [facility] [address] [place], [address] CBC-Complete Blood Cnt No Di ffon 02-22-2024 Erythrocyte distribution width (RBC) [Ratio] 16.4 % High 11.6-14.6 [facility] Comment on above: Performed By: #### L 500.2500, L100.0500 #### [facility] [address] [place], [address] Hematocrit (Bld) [Volume fraction] 37.8 % Normal 37-47 [facility] Comment on above: Performed By: #### L 500.2500, L100.0500 #### [facility] [address] [place], [address] Hemoglobin (Bld) [Mass/Vol] 11.8 g/dL Low 12.0-15.0 [facility] Comment on above: Performed By: #### L 500.2500, L100.0500 #### [facility] [address] [place], [address] MCH (RBC) [Entitic mass] 29.0 pg Normal 27.0-32.0 [facility] Comment on above: Performed By: #### L 500.2500, L100.0500 #### [facility] [address] [place], [address] MCHC (RBC) [Mass/Vol] 31.2 g/dL Low 32-36 [facility] Comment on above: Performed By: #### L 500.2500, L100.0500 #### [facility] [address] [place], [address] MCV (RBC) [Entitic vol] 92.9 fL Normal 81-99 [facility] Comment on above: Performed By: #### L 500.2500, L100.0500 #### [facility] [address] [place], [address] Platelet mean volume (Bld) [Entitic vol] 10.5 fL Normal 6.2-12.0 [facility] Comment on above: Performed By: #### L 500.2500, L100.0500 #### [facility] [address] [place], [address] Platelets (Bld) [#/Vol] 274 10*3/uL Normal 150-450 [facility] Comment on above: Performed By: #### L 500.2500, L100.0500 #### [facility] [address] [place], [address] RBC (Bld) [#/Vol] 4.07 10*6/uL Low 4.2-5.4 [facility] Comment on above: Performed By: #### L 500.2500, L100.0500 #### [facility] [address] [place], [address] RDW SD 55.4 fl High 35.1-43.9 [facility] Comment on above: Performed By: #### L 500.2500, L100.0500 #### [facility] [address] [place], [address] WBC (Bld) [#/Vol] 6.4 10*3/uL Normal 4.4-11.0 [facility] Comment on above: Performed By: #### L 500.2500, L100.0500 #### [facility] [address] [place], [address] CNPNon 12-03-2023 CNPN Telephone (NEADMN) ---- KAMILAH MCKEON ([id number]) 1945 F Date Time Provider Department 12/03/23 KATINA BRUNO During your visit today, we recorded the following information about you: Laz Marítnez 12/03/2023 1:24 PM Signed Spoke to Sandra at [facility] 12/03/23. Xarelto to be held for [...] Encounter Status:Closed by LAZ MARTÍNEZ on 12/03/23 [facility] CNOVradha 11-29-2023 CNOV Office Visit (ORMDNA) ---- KAMILAH MCKEON ([id number]) 1945 F Date Time Provider Department 11/29/23 10:30 AM ENEDINA CANCHOLA During your visit today, we recorded the following information about you: Enedina Canchola PA-C 11/29/2023 11:31 AM Signed Enedina Canchola PA-C Established Patient Department of Orthopaedics Orthopaedics [address] [place] [id number] Dept: [phone] November 29, 2023 SUBJECTIVE: CHIEF COMPLAINT: Follow [...] and second digit. 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 Normal [facility] Basophil percentageOrdered B y: Gerda Wilks on 11-02-2023 Chloride [Moles/Vol] 108 mmol/L 98-107 [facility] Glucose [Mass/Vol] 92 mg/dL 74-106 [facility] Hemoglobin (Bld) [Mass/Vol] 11.2 g/dL 12.0-15.0 [facility] Potassium [Moles/Vol] 3.6 mmol/L 3.5-5.1 [facility] Sodium [Moles/Vol] 139 mmol/L 136-145 [facility] WBC (Bld) [#/Vol] 8.7 10*3/uL 4.4-11.0 [facility] Determination of erythrocyte mean corpuscular volume (MCV)Ordered By: Gerda Wilks on 11-02-2023 MCV (RBC) [Entitic vol] 94.1 fL 81-99 [facility] Erythrocyte distribution wid th ratioOrdered By: Gerda Wilks on 11-02-2023 Erythrocyte distribution width (RBC) [Ratio] 14.9 % 11.6-14.6 [facility] Erythrocyte distribution wid th standard deviationOrdered By: Gerda Wilks on 11-02-2023 Erythrocyte distribution width (RBC) [Entitic vol] 51.5 fL 35.1-43.9 [facility] Hematocrit Auto (Bld) [Volum e fraction]Ordered By: Gerda Wilks on 11-02-2023 Hematocrit (Bld) [Volume fraction] 36.5 % 37-47 [facility] - Chemistry and C hemistry - challengeOrdered By: Gerda Wilks on 11-02-2023 CO2 [Moles/Vol] 24.0 mmol/L 21.0-32.0 [facility] Urea nitrogen/Creatinine [Mass ratio] 32.5 mg/mg 10-20 [facility] - Hematology and Cell countsOrdered By: Gerda Wilks on 11-02-2023 MCH (RBC) [Entitic mass] 28.9 pg 27.0-32.0 [facility] MCHC (RBC) [Mass/Vol] 30.7 g/dL 32-36 [facility] Platelet mean volume (Bld) [Entitic vol] 10.6 fL 6.2-12.0 [facility] Platelets (Bld) [#/Vol] 277 10*3/uL 150-450 [facility] No Panel InformationOrdered By: Gerda Wilks on 11-02-2023 Estimated GFR (MDRD) Amer 70 mL/min >60 [facility] Comment on above: GFR Calc Estimated GFR (MDRD) Non-Af Amer 58 mL/min >60 [facility] Comment on above: Non- GFR Calc RBC Auto (Bld) [#/Vol]Ordere d By: Gerda Wilks on 11-02-2023 RBC (Bld) [#/Vol] 3.88 10*6/uL 4.2-5.4 [facility] Serum or plasma calcium chay urement (mass/volume)Ordered By: Gerda Wilks on 11-02-2023 Calcium [Mass/Vol] 8.2 mg/dL 8.5-10.1 [facility] Serum or plasma creatinine m easurement (mass/volume)Ordered By: Gerda Wilks on 11-02-2023 Creatinine [Mass/Vol] 0.98 mg/dL 0.55-1.02 [facility] Comment on above: The validity of the calculated GFR & GFRAA in patients over 70 years has not been determined. Clinical correlation is essential. Serum or plasma urea nitroge n measurement (mass/volume)Ordered By: Gerda Wilks on 11-02-2023 Urea nitrogen [Mass/Vol] 32 mg/dL 7-18 [facility] Thin prep Papanicolaou smear with manual screeningOrdered By: Gerda Wliks on 11-02-2023 Thin prep Papanicolaou smear with manual screening 7 5-15 [facility] Basophil percentageOrdered B y: Kurt Mari on 11-01-2023 Bilirubin [Mass/Vol] 0.30 mg/dL 0.20-1.00 [facility] Comment on above: For patients on eltr ombopag therapy, use of Dimension [place] TBIL is not recommended. Chloride [Moles/Vol] 108 mmol/L 98-107 [facility] Glucose [Mass/Vol] 98 mg/dL 74-106 [facility] Hemoglobin (Bld) [Mass/Vol] 11.1 g/dL 12.0-15.0 [facility] Potassium [Moles/Vol] 3.6 mmol/L 3.5-5.1 [facility] Protein [Mass/Vol] 7.1 g/dL 6.4-8.2 [facility] Sodium [Moles/Vol] 140 mmol/L 136-145 [facility] WBC (Bld) [#/Vol] 7.1 10*3/uL 4.4-11.0 [facility] Determination of erythrocyte mean corpuscular volume (MCV)Ordered By: Kurt Mari on 11-01-2023 MCV (RBC) [Entitic vol] 91.4 fL 81-99 [facility] Erythrocyte distribution wid th ratioOrdered By: Kurt Mari on 11-01-2023 Erythrocyte distribution width (RBC) [Ratio] 14.7 % 11.6-14.6 [facility] Erythrocyte distribution wid th standard deviationOrdered By: Kurt Mari on 11-01-2023 Erythrocyte distribution width (RBC) [Entitic vol] 49.1 fL 35.1-43.9 [facility] Hematocrit Auto (Bld) [Volum e fraction]Ordered By: Kurt Mari on 11-01-2023 Hematocrit (Bld) [Volume fraction] 34.9 % 37-47 [facility] - Chemistry and C hemistry - challengeOrdered By: Kurt Mari on 11-01-2023 Albumin/Globulin [Mass ratio] 0.6 {ratio} 0.9-2.4 [facility] ALP [Catalytic activity/Vol] 49 U/L 45-117 [facility] ALT [Catalytic activity/Vol] 15 U/L 13-56 [facility] CO2 [Moles/Vol] 23.0 mmol/L 21.0-32.0 [facility] Globulin (S) [Mass/Vol] 4.4 g/dL 2.2-4.2 [facility] Urea nitrogen/Creatinine [Mass ratio] 36.6 mg/mg 10-20 [facility] - Hematology and Cell countsOrdered By: Kurt Mari on 11-01-2023 MCH (RBC) [Entitic mass] 29.1 pg 27.0-32.0 [facility] MCHC (RBC) [Mass/Vol] 31.8 g/dL 32-36 [facility] Platelet mean volume (Bld) [Entitic vol] 10.7 fL 6.2-12.0 [facility] Platelets (Bld) [#/Vol] 233 10*3/uL 150-450 [facility] No Panel InformationOrdered By: Kurt Mari on 11-01-2023 Estimated GFR (MDRD) Amer 84 mL/min >60 [facility] Comment on above: GFR Calc Estimated GFR (MDRD) Non-Af Amer 69 mL/min >60 [facility] Comment on above: Non- GFR Calc RBC Auto (Bld) [#/Vol]Ordere d By: Kurt Mari on 11-01-2023 RBC (Bld) [#/Vol] 3.82 10*6/uL 4.2-5.4 [facility] Serum or plasma calcium chay urement (mass/volume)Ordered By: Kurt Mari on 11-01-2023 Calcium [Mass/Vol] 8.6 mg/dL 8.5-10.1 [facility] Serum or plasma creatinine m easurement (mass/volume)Ordered By: Kurt Mari on 11-01-2023 Creatinine [Mass/Vol] 0.85 mg/dL 0.55-1.02 [facility] Comment on above: The validity of the calculated GFR & GFRAA in patients over 70 years has not been determined. Clinical correlation is essential. Serum or plasma urea nitroge n measurement (mass/volume)Ordered By: Kurt Mari on 11-01-2023 Urea nitrogen [Mass/Vol] 31 mg/dL 7-18 [facility] Thin prep Papanicolaou smear with manual screeningOrdered By: Kurt Mari on 11-01-2023 Thin prep Papanicolaou smear with manual screening 2.7 g/dL 3.2-5.0 [facility] Thin prep Papanicolaou smear with manual screening 14 U/L 15-37 [facility] Thin prep Papanicolaou smear with manual screening 9 5-15 [facility] Basophil percentageOrdered B y: Gerda Wilks on 10-15-2023 Chloride [Moles/Vol] 111 mmol/L 98-107 [facility] Glucose [Mass/Vol] 123 mg/dL 74-106 [facility] Comment on above: Fasting Glucose resu lt from 100 to 125 mg/dL suggests IMPAIRED HOMEOSTASIS per A.D.A. criteria. Potassium [Moles/Vol] 4.0 mmol/L 3.5-5.1 [facility] Sodium [Moles/Vol] 141 mmol/L 136-145 [facility] - Chemistry and C hemistry - challengeOrdered By: Gerda Wilks on 10-15-2023 CO2 [Moles/Vol] 26.0 mmol/L 21.0-32.0 [facility] Magnesium [Mass/Vol] 2.3 mg/dL 1.6-2.6 [facility] Urea nitrogen/Creatinine [Mass ratio] 36.5 mg/mg 10-20 [facility] No Panel InformationOrdered By: Gerda Wilks on 10-15-2023 Estimated GFR (MDRD) Amer 81 mL/min >60 [facility] Comment on above: GFR Calc Estimated GFR (MDRD) Non-Af Amer 67 mL/min >60 [facility] Comment on above: Non- GFR Calc Serum or plasma calcium chay urement (mass/volume)Ordered By: Gerda Wilks on 10-15-2023 Calcium [Mass/Vol] 9.5 mg/dL 8.5-10.1 [facility] Serum or plasma creatinine m easurement (mass/volume)Ordered By: Gerda Wilks on 10-15-2023 Creatinine [Mass/Vol] 0.88 mg/dL 0.55-1.02 [facility] Comment on above: The validity of the calculated GFR & GFRAA in patients over 70 years has not been determined. Clinical correlation is essential. Serum or plasma urea nitroge n measurement (mass/volume)Ordered By: Gerda Wilks on 10-15-2023 Urea nitrogen [Mass/Vol] 32 mg/dL 7-18 [facility] Thin prep Papanicolaou smear with manual screeningOrdered By: Gerdacarlos Wilks on 10-15-2023 Thin prep Papanicolaou smear with manual screening 4 5-15 [facility] Basophil percentageOrdered B y: Gerda Wilks on 10-05-2023 Chloride [Moles/Vol] 111 mmol/L 98-107 [facility] Glucose [Mass/Vol] 119 mg/dL 74-106 [facility] Comment on above: Fasting Glucose resu lt from 100 to 125 mg/dL suggests IMPAIRED HOMEOSTASIS per A.D.A. criteria. Hemoglobin (Bld) [Mass/Vol] 11.6 g/dL 12.0-15.0 [facility] Potassium [Moles/Vol] 4.2 mmol/L 3.5-5.1 [facility] Sodium [Moles/Vol] 143 mmol/L 136-145 [facility] WBC (Bld) [#/Vol] 8.0 10*3/uL 4.4-11.0 [facility] Determination of erythrocyte mean corpuscular volume (MCV)Ordered By: Gerda Wilks on 10-05-2023 MCV (RBC) [Entitic vol] 92.2 fL 81-99 [facility] Erythrocyte distribution wid th ratioOrdered By: Gerda Wilks on 10-05-2023 Erythrocyte distribution width (RBC) [Ratio] 15.1 % 11.6-14.6 [facility] Erythrocyte distribution wid th standard deviationOrdered By: Gerda Wilks on 10-05-2023 Erythrocyte distribution width (RBC) [Entitic vol] 51.2 fL 35.1-43.9 [facility] Hematocrit Auto (Bld) [Volum e fraction]Ordered By: Gerda Wilks on 10-05-2023 Hematocrit (Bld) [Volume fraction] 37.6 % 37-47 [facility] - Chemistry and C hemistry - challengeOrdered By: Gerda Wilks on 10-05-2023 CO2 [Moles/Vol] 28.0 mmol/L 21.0-32.0 [facility] Urea nitrogen/Creatinine [Mass ratio] 37.4 mg/mg 10-20 [facility] - Hematology and Cell countsOrdered By: Gerda Wilks on 10-05-2023 MCH (RBC) [Entitic mass] 28.4 pg 27.0-32.0 [facility] MCHC (RBC) [Mass/Vol] 30.9 g/dL 32-36 [facility] Platelet mean volume (Bld) [Entitic vol] 10.5 fL 6.2-12.0 [facility] Platelets (Bld) [#/Vol] 247 10*3/uL 150-450 [facility] No Panel InformationOrdered By: Gerda Wilks on 10-05-2023 Estimated GFR (MDRD) Amer 97 mL/min >60 [facility] Comment on above: GFR Calc Estimated GFR (MDRD) Non-Af Amer 80 mL/min >60 [facility] Comment on above: Non- GFR Calc RBC Auto (Bld) [#/Vol]Ordere d By: Gerda Wilks on 10-05-2023 RBC (Bld) [#/Vol] 4.08 10*6/uL 4.2-5.4 [facility] Serum or plasma calcium chay urement (mass/volume)Ordered By: Gerda Wilks on 10-05-2023 Calcium [Mass/Vol] 9.1 mg/dL 8.5-10.1 [facility] Serum or plasma creatinine m easurement (mass/volume)Ordered By: Gerda Wilks on 10-05-2023 Creatinine [Mass/Vol] 0.75 mg/dL 0.55-1.02 [facility] Comment on above: The validity of the calculated GFR & GFRAA in patients over 70 years has not been determined. Clinical correlation is essential. Serum or plasma urea nitroge n measurement (mass/volume)Ordered By: Gerda Wilks on 10-05-2023 Urea nitrogen [Mass/Vol] 28 mg/dL 7-18 [facility] Thin prep Papanicolaou smear with manual screeningOrdered By: Gerda Wilks on 10-05-2023 Thin prep Papanicolaou smear with manual screening 4 5-15 [facility] Basophil percentageOrdered B y: Gerda Wilks on 09-07-2023 Chloride [Moles/Vol] 109 mmol/L 98-107 [facility] Glucose [Mass/Vol] 113 mg/dL 74-106 [facility] Comment on above: Fasting Glucose resu lt from 100 to 125 mg/dL suggests IMPAIRED HOMEOSTASIS per A.D.A. criteria. Potassium [Moles/Vol] 4.2 mmol/L 3.5-5.1 [facility] Sodium [Moles/Vol] 142 mmol/L 136-145 [facility] WBC (Bld) [#/Vol] 7.9 10*3/uL 4.4-11.0 [facility] Blood erythrocytes count (nu mber/volume)Ordered By: Gerda Wilks on 09-07-2023 RBC (Bld) [#/Vol] 4.36 10*6/uL 4.2-5.4 [facility] Blood hemoglobin measurement (mass/volume)Ordered By: Gerda Wilks on 09-07-2023 Hemoglobin (Bld) [Mass/Vol] 12.7 g/dL 12.0-15.0 [facility] Blood platelet mean volumeOr dered By: Gerda Wilks on 09-07-2023 Platelet mean volume (Bld) [Entitic vol] 10.5 fL 6.2-12.0 [facility] Determination of erythrocyte mean corpuscular volume (MCV)Ordered By: Gerda Wilks on 09-07-2023 MCV (RBC) [Entitic vol] 92.2 fL 81-99 [facility] Hematocrit Auto (Bld) [Volum e fraction]Ordered By: Gerda Wilks on 09-07-2023 Hematocrit (Bld) [Volume fraction] 40.2 % 37-47 [facility] - Chemistry and C hemistry - challengeOrdered By: Gerda Wilks on 09-07-2023 CO2 [Moles/Vol] 27.0 mmol/L 21.0-32.0 [facility] Urea nitrogen/Creatinine [Mass ratio] 41.4 mg/mg 10-20 [facility] - Hematology and Cell countsOrdered By: Gerda Wilks on 09-07-2023 Erythrocyte distribution width (RBC) [Entitic vol] 50.9 fL 35.1-43.9 [facility] Erythrocyte distribution width (RBC) [Ratio] 15.1 % 11.6-14.6 [facility] MCH (RBC) [Entitic mass] 29.1 pg 27.0-32.0 [facility] MCHC Auto (RBC) [Mass/Vol]Or dered By: Gerda Wilks on 09-07-2023 MCHC (RBC) [Mass/Vol] 31.6 g/dL 32-36 [facility] No Panel InformationOrdered By: Gerda Wilks on 09-07-2023 Estimated GFR (MDRD) Amer 81 mL/min >60 [facility] Comment on above: GFR Calc Estimated GFR (MDRD) Non-Af Amer 67 mL/min >60 [facility] Comment on above: Non- GFR Calc Platelets bldOrdered By: Gustavo Wilks on 09-07-2023 Platelets (Bld) [#/Vol] 266 10*3/uL 150-450 [facility] Serum or plasma calcium chay urement (mass/volume)Ordered By: Gerda Wilks on 09-07-2023 Calcium [Mass/Vol] 9.6 mg/dL 8.5-10.1 [facility] Serum or plasma creatinine m easurement (mass/volume)Ordered By: Gerda Wilks on 09-07-2023 Creatinine [Mass/Vol] 0.87 mg/dL 0.55-1.02 [facility] Comment on above: The validity of the calculated GFR & GFRAA in patients over 70 years has not been determined. Clinical correlation is essential. Serum or plasma urea nitroge n measurement (mass/volume)Ordered By: Gerda Wilks on 09-07-2023 Urea nitrogen [Mass/Vol] 36 mg/dL 7-18 [facility] Thin prep Papanicolaou smear with manual screeningOrdered By: Gerda Wilks on 09-07-2023 Thin prep Papanicolaou smear with manual screening 6 5-15 [facility] Absolute lymphocyte countOrd ered By: Jose Martin Drake on 09-06-2023 Lymphocytes Auto (Unsp spec) [#/Vol] 1.74 10*3/uL 0.83-4.51 [facility] Basophil percentageOrdered B y: Jose Martin Drake on 09-06-2023 Basophils/100 WBC (Bld) 1.0 % 0-1 [facility] Eosinophils/100 WBC (Bld) 3.9 % 0-5 [facility] Neutrophils (Bld) [#/Vol] 5.2 10*3/uL 2.0-7.7 [facility] Neutrophils/100 WBC (Bld) 65.5 % 47-70 [facility] WBC (Bld) [#/Vol] 8.0 10*3/uL 4.4-11.0 [facility] Blood erythrocytes count (nu mber/volume)Ordered By: Jose Martin Drake on 09-06-2023 RBC (Bld) [#/Vol] 4.53 10*6/uL 4.2-5.4 [facility] Blood hemoglobin measurement (mass/volume)Ordered By: Jose Martin Drake on 09-06-2023 Hemoglobin (Bld) [Mass/Vol] 13.2 g/dL 12.0-15.0 [facility] Blood lymphocytes/100 leukoc ytesOrdered By: Jose Martin Drake on 09-06-2023 Lymphocytes/100 WBC (Bld) 21.8 % 19-41 [facility] Blood monocytes/100 leukocyt esOrdered By: Jose Martin Drake on 09-06-2023 Monocytes/100 WBC (Bld) 6.9 % 0-10 [facility] Blood platelet mean volumeOr dered By: Jose Martin Drake on 09-06-2023 Platelet mean volume (Bld) [Entitic vol] 10.7 fL 6.2-12.0 [facility] Determination of erythrocyte mean corpuscular volume (MCV)Ordered By: Jose Martin Drake on 09-06-2023 MCV (RBC) [Entitic vol] 92.3 fL 81-99 [facility] Hematocrit Auto (Bld) [Volum e fraction]Ordered By: Jose Martin Drake on 09-06-2023 Hematocrit (Bld) [Volume fraction] 41.8 % 37-47 [facility] - Chemistry and C hemistry - challengeOrdered By: Jose Martin Drake on 09-06-2023 Cobalamin (Vitamin B12) [Mass/Vol] 563 pg/mL 211-911 [facility] - Hematology and Cell countsOrdered By: Jose Martin Drake on 09-06-2023 Erythrocyte distribution width (RBC) [Entitic vol] 51.3 fL 35.1-43.9 [facility] Erythrocyte distribution width (RBC) [Ratio] 15.1 % 11.6-14.6 [facility] Immature granulocytes/100 [facility] (Bld) 0.900 % 0.0-0.9 [facility] Comment on above: IG% - Immature Granu locytes (promyelocytes, myelocytes and metamyelocytes) > 1% indicates that a LEFT SHIFT is Present. MCH (RBC) [Entitic mass] 29.1 pg 27.0-32.0 [facility] Nucleated RBC/100 WBC (Bld) [Ratio] 0 % 0-5 [facility] MCHC Auto (RBC) [Mass/Vol]Or dered By: Jose Martin Drake on 09-06-2023 MCHC (RBC) [Mass/Vol] 31.6 g/dL 32-36 [facility] No Panel InformationOrdered By: Jose Martin Drake on 09-06-2023 Vitamin D 25-Hydroxy 57.1 ng/mL [facility] Comment on above: Vitamin D 25(OH) Sta tus Range Deficiency <20 ng/mL (50nmol/L) Insufficiency 20 - 30 ng/mL (50 - 75 nmol/L) Sufficiency 30 - 100 ng/mL (75 - 250 nmol/L) Toxicity >100 ng/mL (>250 nmol/L) Platelets bldOrdered By: Dav Drake on 09-06-2023 Platelets (Bld) [#/Vol] 284 10*3/uL 150-450 [facility] Serum or plasma calcitriol m easurement (mass/volume)Ordered By: Jose Martin Drake on 09-06-2023 1,25-dihydroxyvitamin D3 [Mass/Vol] 22.3 pg/mL 24.8-81.5 [facility] Comment on above: Performed at: [facility] [address] [id number] Director: Estuardo Alegria MD, Phone: [phone] Serum or plasma ferritin riley surement (mass/volume)Ordered By: Jose Martin Drake on 09-06-2023 Ferritin [Mass/Vol] 30 ng/mL 8-252 [facility] Serum or plasma zinc measure ment (mass/volume)Ordered By: Jose Martin Drake on 09-06-2023 Zinc [Mass/Vol] 63 ug/dL 44-115 [facility] Comment on above: Detection Limit = 5P erformed at: [facility] - [facility] [address] [id number] Director: Estuardo Alegria MD, Phone: [phone] Basophil percentageOrdered B y: Gerda Wilks on 08-08-2023 Chloride [Moles/Vol] 109 mmol/L 98-107 [facility] Glucose [Mass/Vol] 145 mg/dL 74-106 [facility] Comment on above: Fasting Glucose resu lt greater than or equal to 126 mg/dL suggests DIABETES MELLITUS per A.D.A. criteria. Potassium [Moles/Vol] 3.9 mmol/L 3.5-5.1 [facility] Sodium [Moles/Vol] 140 mmol/L 136-145 [facility] WBC (Bld) [#/Vol] 6.9 10*3/uL 4.4-11.0 [facility] Blood erythrocytes count (nu mber/volume)Ordered By: Gerda Wilks on 08-08-2023 RBC (Bld) [#/Vol] 4.46 10*6/uL 4.2-5.4 [facility] Blood hemoglobin measurement (mass/volume)Ordered By: Gerda Wilks on 08-08-2023 Hemoglobin (Bld) [Mass/Vol] 12.9 g/dL 12.0-15.0 [facility] Blood platelet mean volumeOr dered By: Gerda Wilks on 08-08-2023 Platelet mean volume (Bld) [Entitic vol] 10.7 fL 6.2-12.0 [facility] Determination of erythrocyte mean corpuscular volume (MCV)Ordered By: Gerda Wilks on 08-08-2023 MCV (RBC) [Entitic vol] 93.0 fL 81-99 [facility] Hematocrit Auto (Bld) [Volum e fraction]Ordered By: Gerda Wilks on 08-08-2023 Hematocrit (Bld) [Volume fraction] 41.5 % 37-47 [facility] Iron measurement (mass/mass) Ordered By: Gerda Wilks on 08-08-2023 Iron (Unsp spec) [Mass/Mass] 42 ug/dL 50-170 [facility] Laboratory - Chemistry and C hemistry - challengeOrdered By: Gerda Wilks on 08-08-2023 CO2 [Moles/Vol] 27.0 mmol/L 21.0-32.0 [facility] Urea nitrogen/Creatinine [Mass ratio] 32.4 mg/mg 10-20 [facility] - Hematology and Cell countsOrdered By: Gerda Wilks on 08-08-2023 Erythrocyte distribution width (RBC) [Entitic vol] 52.4 fL 35.1-43.9 [facility] Erythrocyte distribution width (RBC) [Ratio] 15.3 % 11.6-14.6 [facility] MCH (RBC) [Entitic mass] 28.9 pg 27.0-32.0 [facility] MCHC Auto (RBC) [Mass/Vol]Or dered By: Gerda Wilks on 08-08-2023 MCHC (RBC) [Mass/Vol] 31.1 g/dL 32-36 [facility] No Panel InformationOrdered By: Gerda Wilks on 08-08-2023 Estimated GFR (MDRD) Amer 68 mL/min >60 [facility] Comment on above: GFR Calc Estimated GFR (MDRD) Non-Af Amer 56 mL/min >60 [facility] Comment on above: Non- GFR Calc Total Iron Binding Capacity 325 ug/dL 250-450 [facility] Platelets bldOrdered By: Gustavo Wilks on 08-08-2023 Platelets (Bld) [#/Vol] 247 10*3/uL 150-450 [facility] Serum or plasma calcium chay urement (mass/volume)Ordered By: Gerda Wilks on 08-08-2023 Calcium [Mass/Vol] 9.4 mg/dL 8.5-10.1 [facility] Serum or plasma creatinine m easurement (mass/volume)Ordered By: Gerda Wilks on 08-08-2023 Creatinine [Mass/Vol] 1.02 mg/dL 0.55-1.02 [facility] Comment on above: The validity of the calculated GFR & GFRAA in patients over 70 years has not been determined. Clinical correlation is essential. Serum or plasma iron saturat ion measurement (mass fraction)Ordered By: Gerdacarlos Wilks on 08-08-2023 Iron saturation [Mass fraction] 12.9 % 15.0-55.0 [facility] Serum or plasma urea nitroge n measurement (mass/volume)Ordered By: Gerda Wilks on 08-08-2023 Urea nitrogen [Mass/Vol] 33 mg/dL 7-18 [facility] Thin prep Papanicolaou smear with manual screeningOrdered By: Gerdacarlos Wilks on 08-08-2023 Thin prep Papanicolaou smear with manual screening 4 5-15 [facility] CNOVon 07-23-2023 CNOV Office Visit (ORMDNA) ---- KAMILAH MCKEON ([id number]) 1945 F Date Time Provider Department 07/23/23 2:00 PM ENEDINA CANCHOLA During your visit today, we recorded the following information about you: Enedina Canchola PA-C 07/24/2023 2:47 PM Signed Enedina Canchola PA-C Department of Orthopaedics [facility] [address] [address] Dept: [phone] July 23, 2023 SUBJECTIVE: CHIEF COMPLAINT: Pain [...] and 3rd digit Phalen's: postive Tinel's: negative President And Ceo strength: 5/5 IMAGIN07/23/2023 4:08 PM - Radiology, Oru In Impression IMPRESSION: Findings as discussed in results portion of report [employer] Supervisor: GERMAINE Transcribe Date/Time: Jul 23 2023 4:04P Dictated by : WALTER BRODY DO This examination was interpreted and the report reviewed and electronically signed by: WALTER BRODY DO on Jul 23 2023 4:06PM EST Results-Findings * * *Final Report* * * DATE OF EXAM: Jul 23 2023 1:23PM [facility] - XR WRIST 3V PA/LAT/OBL RT / PROCEDURE REASON: [id number] * * * * Physician Interpretation * [...] Patient agre (more content not included)... Normal [facility] XR WRIST 3V PA/LAT/OBL RTon 07-23-2023 XR WRIST 3V PA/LAT/OBL RT * * *Final Report* * * DATE OF EXAM: Jul 23 2023 1:23PM [facility]271 - XR WRIST 3V PA/LAT/OBL RT / PROCEDURE REASON: [id number] * * * * Physician Interpretation * [...] as discussed in results portion of report [employer] Supervisor: GERMAINE Transcribe Date/Time: Jul 23 2023 4:04P Dictated by : WALTER BRODY DO This examination was interpreted and the report reviewed and electronically signed by: WALTER BRODY DO on Jul 23 2023 4:06PM EST [id number] [facility] XR Wrist - right PA and Late ral and Obliqueon 07-23-2023 IMPRESSION: Findings as discussed in results portion of report [employer] Supervisor: PSCB Transcribe Date/Time: Jul 23 2023 4:04P Dictated by : WALTER BRODY DO This examination was interpreted and the report reviewed and electronically signed by: WALTER BRODY DO on Jul 23 2023 4:06PM EST [facility] * * *Final Report* * * DATE OF EXAM: Jul 23 2023 1:23PM [facility]271 - XR WRIST 3V PA/LAT/OBL RT / PROCEDURE REASON: [id number] * * * * Physician Interpretation * [...] bones No fractures or dislocations are seen. [facility] Provider, [facility] - 07/23/2023 * * *Final Report* * * DATE OF EXAM: Jul 23 2023 1:23PM [facility] - XR WRIST 3V PA/LAT/OBL RT / PROCEDURE REASON: [id number] * * * * Physician Interpretation * [...] as discussed in results portion of report [employer] Supervisor: GERMAINE Transcribe Date/Time: Jul 23 2023 4:04P Dictated by : WALTER BRODY DO This examination was interpreted and the report reviewed and electronically signed by: WALTER BRODY DO on Jul 23 2023 4:06PM EST [facility] Radiology Study observation (narrative) [place] [facility] XR Wrist - right PA and Late ral and ObliqueOrdered By: Ccf Provider on 07-23-2023 [facility] Basophil percentageOrdered B y: Rizwan Florentino on 07-12-2023 Chloride [Moles/Vol] 110 mmol/L 98-107 [facility] Glucose [Mass/Vol] 117 mg/dL 74-106 [facility] Comment on above: Fasting Glucose resu lt from 100 to 125 mg/dL suggests IMPAIRED HOMEOSTASIS per A.D.A. criteria. Potassium [Moles/Vol] 4.2 mmol/L 3.5-5.1 [facility] Sodium [Moles/Vol] 142 mmol/L 136-145 [facility] WBC (Bld) [#/Vol] 7.0 10*3/uL 4.4-11.0 [facility] Blood erythrocytes count (nu mber/volume)Ordered By: Rizwan Florentino on 07-12-2023 RBC (Bld) [#/Vol] 4.17 10*6/uL 4.2-5.4 [facility] Blood hemoglobin measurement (mass/volume)Ordered By: Rizwan Florentino on 07-12-2023 Hemoglobin (Bld) [Mass/Vol] 12.1 g/dL 12.0-15.0 [facility] Blood platelet mean volumeOr dered By: Rizwan Florentino on 07-12-2023 Platelet mean volume (Bld) [Entitic vol] 10.8 fL 6.2-12.0 [facility] Determination of erythrocyte mean corpuscular volume (MCV)Ordered By: Rizwan Florentino on 07-12-2023 MCV (RBC) [Entitic vol] 93.5 fL 81-99 [facility] Hematocrit Auto (Bld) [Volum e fraction]Ordered By: Rizwan Florentino on 07-12-2023 Hematocrit (Bld) [Volume fraction] 39.0 % 37-47 [facility] - Chemistry and C hemistry - challengeOrdered By: Rizwan Florentino on 07-12-2023 CO2 [Moles/Vol] 28.0 mmol/L 21.0-32.0 [facility] Urea nitrogen/Creatinine [Mass ratio] 42.5 mg/mg 10-20 [facility] - Hematology and Cell countsOrdered By: Rizwan Florentino on 07-12-2023 Erythrocyte distribution width (RBC) [Entitic vol] 53.0 fL 35.1-43.9 [facility] Erythrocyte distribution width (RBC) [Ratio] 15.5 % 11.6-14.6 [facility] MCH (RBC) [Entitic mass] 29.0 pg 27.0-32.0 [facility] MCHC Auto (RBC) [Mass/Vol]Or dered By: Rizwan Florentino on 07-12-2023 MCHC (RBC) [Mass/Vol] 31.0 g/dL 32-36 [facility] No Panel InformationOrdered By: Rizwan Florentino on 07-12-2023 Estimated GFR (MDRD) Amer 90 mL/min >60 [facility] Comment on above: GFR Calc Estimated GFR (MDRD) Non-Af Amer 74 mL/min >60 [facility] Comment on above: Non- GFR Calc Platelets bldOrdered By: Leatha Florentino on 07-12-2023 Platelets (Bld) [#/Vol] 255 10*3/uL 150-450 [facility] Serum or plasma calcium chay urement (mass/volume)Ordered By: Rizwan Florentino on 07-12-2023 Calcium [Mass/Vol] 9.0 mg/dL 8.5-10.1 [facility] Serum or plasma creatinine m easurement (mass/volume)Ordered By: Rizwan Florentino on 07-12-2023 Creatinine [Mass/Vol] 0.80 mg/dL 0.55-1.02 [facility] Comment on above: The validity of the calculated GFR & GFRAA in patients over 70 years has not been determined. Clinical correlation is essential. Serum or plasma urea nitroge n measurement (mass/volume)Ordered By: Rizwan Florentino on 07-12-2023 Urea nitrogen [Mass/Vol] 34 mg/dL 7-18 [facility] Thin prep Papanicolaou smear with manual screeningOrdered By: Rizwan Florentino on 07-12-2023 Thin prep Papanicolaou smear with manual screening 4 5-15 [facility] Basophil percentageOrdered B y: Gerda Wilks on 07-05-2023 Cholesterol [Mass/Vol] 155 mg/dL <200 [facility] Comment on above: <200 mg/dL Desirable 200-240 mg/dL Borderline >240 mg/dL High Risk Triglyceride [Mass/Vol] 79 mg/dL <199 [facility] Comment on above: The drugs N-Acetylcy steine and Metamizole may falsely depress this assay.Serum Triglycerides Reference Interval Normal <150 mg/dL Borderline high 150 - 199 mg/dL High 200 - 499 mg/dL Very High > or = 500 mg/dL Serum or plasma cholesterol in HDL measurement (mass/volume)Ordered By: Gerda Wilks on 07-05-2023 Cholesterol in HDL [Mass/Vol] 60 mg/dL >40 [facility] Comment on above: The drugs N-Acetylcy steine and Metamizole may falsely depress this assay. Reference Range HDL <40 mg/dL Low HDL Cholesterol HDL >or= 60 mg/dL High HDL Cholesterol Serum or plasma cholesterol in VLDL measurement (mass/volume)Ordered By: Gerda Wilks on 07-05-2023 Cholesterol in VLDL [Mass/Vol] 16 mg/dL 5-40 [facility] Serum or plasma low density lipoprotein (LDL) cholesterol measurement (mass/volume)Ordered By: Gerda Wilks on 07-05-2023 Cholesterol in LDL [Mass/Vol] 79 mg/dL 0-130 [facility] Basophil percentageOrdered B y: Gerda Wilks on 06-14-2023 Chloride [Moles/Vol] 112 mmol/L 98-107 [facility] Glucose [Mass/Vol] 112 mg/dL 74-106 [facility] Comment on above: Fasting Glucose resu lt from 100 to 125 mg/dL suggests IMPAIRED HOMEOSTASIS per A.D.A. criteria. Potassium [Moles/Vol] 4.3 mmol/L 3.5-5.1 [facility] Sodium [Moles/Vol] 143 mmol/L 136-145 [facility] WBC (Bld) [#/Vol] 7.0 10*3/uL 4.4-11.0 [facility] Blood erythrocytes count (nu mber/volume)Ordered By: Gerda Wilks on 06-14-2023 RBC (Bld) [#/Vol] 4.40 10*6/uL 4.2-5.4 [facility] Blood hemoglobin measurement (mass/volume)Ordered By: Gerda Wilks on 06-14-2023 Hemoglobin (Bld) [Mass/Vol] 12.6 g/dL 12.0-15.0 [facility] Blood platelet mean volumeOr dered By: Gerda Wilks on 06-14-2023 Platelet mean volume (Bld) [Entitic vol] 11.0 fL 6.2-12.0 [facility] Determination of erythrocyte mean corpuscular volume (MCV)Ordered By: Gerda Wilks on 06-14-2023 MCV (RBC) [Entitic vol] 93.6 fL 81-99 [facility] Hematocrit Auto (Bld) [Volum e fraction]Ordered By: Gerda Wilks on 06-14-2023 Hematocrit (Bld) [Volume fraction] 41.2 % 37-47 [facility] - Chemistry and C hemistry - challengeOrdered By: Gerda Wilks on 06-14-2023 CO2 [Moles/Vol] 26.0 mmol/L 21.0-32.0 [facility] Urea nitrogen/Creatinine [Mass ratio] 36.6 mg/mg 10-20 [facility] - Hematology and Cell countsOrdered By: Gerda Wilks on 06-14-2023 Erythrocyte distribution width (RBC) [Entitic vol] 53.9 fL 35.1-43.9 [facility] Erythrocyte distribution width (RBC) [Ratio] 15.6 % 11.6-14.6 [facility] MCH (RBC) [Entitic mass] 28.6 pg 27.0-32.0 [facility] MCHC Auto (RBC) [Mass/Vol]Or dered By: Gerda Wilks on 06-14-2023 MCHC (RBC) [Mass/Vol] 30.6 g/dL 32-36 [facility] No Panel InformationOrdered By: Gerda Wilks on 06-14-2023 Estimated GFR (MDRD) Amer 87 mL/min >60 [facility] Comment on above: GFR Calc Estimated GFR (MDRD) Non-Af Amer 72 mL/min >60 [facility] Comment on above: Non- GFR Calc Platelets bldOrdered By: Gustavo Wilks on 06-14-2023 Platelets (Bld) [#/Vol] 244 10*3/uL 150-450 [facility] Serum or plasma calcium chay urement (mass/volume)Ordered By: Gerda Wilks on 06-14-2023 Calcium [Mass/Vol] 9.2 mg/dL 8.5-10.1 [facility] Serum or plasma creatinine m easurement (mass/volume)Ordered By: Gerda Wilks on 06-14-2023 Creatinine [Mass/Vol] 0.82 mg/dL 0.55-1.02 [facility] Comment on above: The validity of the calculated GFR & GFRAA in patients over 70 years has not been determined. Clinical correlation is essential. Serum or plasma urea nitroge n measurement (mass/volume)Ordered By: Gerda Wilks on 06-14-2023 Urea nitrogen [Mass/Vol] 30 mg/dL 7-18 [facility] Thin prep Papanicolaou smear with manual screeningOrdered By: Gerda Wilks on 06-14-2023 Thin prep Papanicolaou smear with manual screening 5 5-15 [facility] Basophil percentageOrdered B y: Gerda Wilks on 05-17-2023 Chloride [Moles/Vol] 108 mmol/L 98-107 [facility] Glucose [Mass/Vol] 140 mg/dL 74-106 [facility] Comment on above: Fasting Glucose resu lt greater than or equal to 126 mg/dL suggests DIABETES MELLITUS per A.D.A. criteria. Potassium [Moles/Vol] 3.8 mmol/L 3.5-5.1 [facility] Sodium [Moles/Vol] 142 mmol/L 136-145 [facility] WBC (Bld) [#/Vol] 8.5 10*3/uL 4.4-11.0 [facility] Blood erythrocytes count (nu mber/volume)Ordered By: Gerda Wilks on 05-17-2023 RBC (Bld) [#/Vol] 4.43 10*6/uL 4.2-5.4 [facility] Blood hemoglobin measurement (mass/volume)Ordered By: Gerda Wilks on 05-17-2023 Hemoglobin (Bld) [Mass/Vol] 12.6 g/dL 12.0-15.0 [facility] Blood platelet mean volumeOr dered By: Gerda Wilks on 05-17-2023 Platelet mean volume (Bld) [Entitic vol] 10.4 fL 6.2-12.0 [facility] Determination of erythrocyte mean corpuscular volume (MCV)Ordered By: Gerda Wilks on 05-17-2023 MCV (RBC) [Entitic vol] 92.1 fL 81-99 [facility] Hematocrit Auto (Bld) [Volum e fraction]Ordered By: Gerda Wilks on 05-17-2023 Hematocrit (Bld) [Volume fraction] 40.8 % 37-47 [facility] - Chemistry and C hemistry - challengeOrdered By: Gerda Wilks on 05-17-2023 CO2 [Moles/Vol] 28.0 mmol/L 21.0-32.0 [facility] Urea nitrogen/Creatinine [Mass ratio] 36.6 mg/mg 10-20 [facility] - Hematology and Cell countsOrdered By: Gerda Wilks on 05-17-2023 Erythrocyte distribution width (RBC) [Entitic vol] 55.1 fL 35.1-43.9 [facility] Erythrocyte distribution width (RBC) [Ratio] 16.2 % 11.6-14.6 [facility] MCH (RBC) [Entitic mass] 28.4 pg 27.0-32.0 [facility] MCHC Auto (RBC) [Mass/Vol]Or dered By: Gerda Wilks on 05-17-2023 MCHC (RBC) [Mass/Vol] 30.9 g/dL 32-36 [facility] No Panel InformationOrdered By: Gerda Wilks on 05-17-2023 Estimated GFR (MDRD) Amer 75 mL/min >60 [facility] Comment on above: GFR Calc Estimated GFR (MDRD) Non-Af Amer 62 mL/min >60 [facility] Comment on above: Non- GFR Calc Platelets bldOrdered By: Gustavo Wilks on 05-17-2023 Platelets (Bld) [#/Vol] 254 10*3/uL 150-450 [facility] Serum or plasma calcium chay urement (mass/volume)Ordered By: Gerda Wilks on 05-17-2023 Calcium [Mass/Vol] 9.5 mg/dL 8.5-10.1 [facility] Serum or plasma creatinine m easurement (mass/volume)Ordered By: Gerda Wilks on 05-17-2023 Creatinine [Mass/Vol] 0.93 mg/dL 0.55-1.02 [facility] Comment on above: The validity of the calculated GFR & GFRAA in patients over 70 years has not been determined. Clinical correlation is essential. Serum or plasma urea nitroge n measurement (mass/volume)Ordered By: Gerda Wilks on 05-17-2023 Urea nitrogen [Mass/Vol] 34 mg/dL 7-18 [facility] Thin prep Papanicolaou smear with manual screeningOrdered By: Gerda Wilks on 05-17-2023 Thin prep Papanicolaou smear with manual screening 6 5-15 [facility] Basophil percentageOrdered B y: Gerda Wilks on 04-19-2023 Chloride [Moles/Vol] 109 mmol/L 98-107 [facility] Glucose [Mass/Vol] 107 mg/dL 74-106 [facility] Comment on above: Fasting Glucose resu lt from 100 to 125 mg/dL suggests IMPAIRED HOMEOSTASIS per A.D.A. criteria. Potassium [Moles/Vol] 4.3 mmol/L 3.5-5.1 [facility] Sodium [Moles/Vol] 141 mmol/L 136-145 [facility] WBC (Bld) [#/Vol] 6.6 10*3/uL 4.4-11.0 [facility] Blood erythrocytes count (nu mber/volume)Ordered By: Gerda Wilks on 04-19-2023 RBC (Bld) [#/Vol] 4.20 10*6/uL 4.2-5.4 [facility] Blood hemoglobin measurement (mass/volume)Ordered By: Gerda Wilks on 04-19-2023 Hemoglobin (Bld) [Mass/Vol] 11.8 g/dL 12.0-15.0 [facility] Blood platelet mean volumeOr dered By: Gerda Wilks on 04-19-2023 Platelet mean volume (Bld) [Entitic vol] 10.9 fL 6.2-12.0 [facility] Determination of erythrocyte mean corpuscular volume (MCV)Ordered By: Gerda Wilks on 04-19-2023 MCV (RBC) [Entitic vol] 92.6 fL 81-99 [facility] Hematocrit Auto (Bld) [Volum e fraction]Ordered By: Gerda Wilks on 04-19-2023 Hematocrit (Bld) [Volume fraction] 38.9 % 37-47 [facility] - Chemistry and C hemistry - challengeOrdered By: Gerda Wilks on 04-19-2023 CO2 [Moles/Vol] 27.0 mmol/L 21.0-32.0 [facility] Urea nitrogen/Creatinine [Mass ratio] 36.5 mg/mg 10-20 [facility] - Hematology and Cell countsOrdered By: Gerda Wilks on 04-19-2023 Erythrocyte distribution width (RBC) [Entitic vol] 55.1 fL 35.1-43.9 [facility] Erythrocyte distribution width (RBC) [Ratio] 16.2 % 11.6-14.6 [facility] MCH (RBC) [Entitic mass] 28.1 pg 27.0-32.0 [facility] MCHC Auto (RBC) [Mass/Vol]Or dered By: Gerda Wilks on 04-19-2023 MCHC (RBC) [Mass/Vol] 30.3 g/dL 32-36 [facility] No Panel InformationOrdered By: Gerda Wilks on 04-19-2023 Estimated GFR (MDRD) Amer 98 mL/min >60 [facility] Comment on above: GFR Calc Estimated GFR (MDRD) Non-Af Amer 81 mL/min >60 [facility] Comment on above: Non- GFR Calc Platelets bldOrdered By: Gustavo Wilks on 04-19-2023 Platelets (Bld) [#/Vol] 247 10*3/uL 150-450 [facility] Serum or plasma calcium chay urement (mass/volume)Ordered By: Gerda Wilks on 04-19-2023 Calcium [Mass/Vol] 9.5 mg/dL 8.5-10.1 [facility] Serum or plasma creatinine m easurement (mass/volume)Ordered By: Gerda Wilks on 04-19-2023 Creatinine [Mass/Vol] 0.74 mg/dL 0.55-1.02 [facility] Comment on above: The validity of the calculated GFR & GFRAA in patients over 70 years has not been determined. Clinical correlation is essential. Serum or plasma urea nitroge n measurement (mass/volume)Ordered By: Gerda Wilks on 04-19-2023 Urea nitrogen [Mass/Vol] 27 mg/dL 7-18 [facility] Thin prep Papanicolaou smear with manual screeningOrdered By: Gerda Wilks on 04-19-2023 Thin prep Papanicolaou smear with manual screening 5 5-15 [facility] Basophil percentageOrdered B y: Gerda Wilks on 03-22-2023 Chloride [Moles/Vol] 107 mmol/L 98-107 [facility] Glucose [Mass/Vol] 98 mg/dL 74-106 [facility] Potassium [Moles/Vol] 3.9 mmol/L 3.5-5.1 [facility] Sodium [Moles/Vol] 139 mmol/L 136-145 [facility] WBC (Bld) [#/Vol] 7.6 10*3/uL 4.4-11.0 [facility] Blood erythrocytes count (nu mber/volume)Ordered By: Gerda Wilks on 03-22-2023 RBC (Bld) [#/Vol] 4.14 10*6/uL 4.2-5.4 [facility] Blood hemoglobin measurement (mass/volume)Ordered By: Gerda Wilks on 03-22-2023 Hemoglobin (Bld) [Mass/Vol] 12.0 g/dL 12.0-15.0 [facility] Blood platelet mean volumeOr dered By: Gerda Wilks on 03-22-2023 Platelet mean volume (Bld) [Entitic vol] 10.9 fL 6.2-12.0 [facility] Determination of erythrocyte mean corpuscular volume (MCV)Ordered By: Gerda Wilks on 03-22-2023 MCV (RBC) [Entitic vol] 91.3 fL 81-99 [facility] Hematocrit Auto (Bld) [Volum e fraction]Ordered By: Gerda Wilks on 03-22-2023 Hematocrit (Bld) [Volume fraction] 37.8 % 37-47 [facility] - Chemistry and C hemistry - challengeOrdered By: Gerda Wilks on 03-22-2023 CO2 [Moles/Vol] 26.0 mmol/L 21.0-32.0 [facility] Urea nitrogen/Creatinine [Mass ratio] 35.3 mg/mg 10-20 [facility] - Hematology and Cell countsOrdered By: Gerda Wilks on 03-22-2023 Erythrocyte distribution width (RBC) [Entitic vol] 53.3 fL 35.1-43.9 [facility] Erythrocyte distribution width (RBC) [Ratio] 16.0 % 11.6-14.6 [facility] MCH (RBC) [Entitic mass] 29.0 pg 27.0-32.0 [facility] MCHC Auto (RBC) [Mass/Vol]Or dered By: Gerda Wilks on 03-22-2023 MCHC (RBC) [Mass/Vol] 31.7 g/dL 32-36 [facility] No Panel InformationOrdered By: Gerda Wilks on 03-22-2023 Estimated GFR (MDRD) Amer 90 mL/min >60 [facility] Comment on above: GFR Calc Estimated GFR (MDRD) Non-Af Amer 75 mL/min >60 [facility] Comment on above: Non- GFR Calc Platelets bldOrdered By: Gustavo Wilks on 03-22-2023 Platelets (Bld) [#/Vol] 242 10*3/uL 150-450 [facility] Serum or plasma calcium chay urement (mass/volume)Ordered By: Gerda Wilks on 03-22-2023 Calcium [Mass/Vol] 9.0 mg/dL 8.5-10.1 [facility] Serum or plasma creatinine m easurement (mass/volume)Ordered By: Gerda Wilks on 03-22-2023 Creatinine [Mass/Vol] 0.79 mg/dL 0.55-1.02 [facility] Comment on above: The validity of the calculated GFR & GFRAA in patients over 70 years has not been determined. Clinical correlation is essential. Serum or plasma urea nitroge n measurement (mass/volume)Ordered By: Gerda Wilks on 03-22-2023 Urea nitrogen [Mass/Vol] 28 mg/dL 7-18 [facility] Thin prep Papanicolaou smear with manual screeningOrdered By: Gerda Wilks on 03-22-2023 Thin prep Papanicolaou smear with manual screening 6 5-15 [facility] Basophil percentageOrdered B y: Gerda Wilks on 02-22-2023 Chloride [Moles/Vol] 108 mmol/L 98-107 [facility] Glucose [Mass/Vol] 107 mg/dL 74-106 [facility] Comment on above: Fasting Glucose resu lt from 100 to 125 mg/dL suggests IMPAIRED HOMEOSTASIS per A.D.A. criteria. Potassium [Moles/Vol] 4.2 mmol/L 3.5-5.1 [facility] Sodium [Moles/Vol] 140 mmol/L 136-145 [facility] WBC (Bld) [#/Vol] 6.5 10*3/uL 4.4-11.0 [facility] Blood erythrocytes count (nu mber/volume)Ordered By: Gerda Wilks on 02-22-2023 RBC (Bld) [#/Vol] 4.14 10*6/uL 4.2-5.4 [facility] Blood hemoglobin measurement (mass/volume)Ordered By: Gerda Wilks on 02-22-2023 Hemoglobin (Bld) [Mass/Vol] 11.7 g/dL 12.0-15.0 [facility] Blood platelet mean volumeOr dered By: Gerda Wilks on 02-22-2023 Platelet mean volume (Bld) [Entitic vol] 10.7 fL 6.2-12.0 [facility] Determination of erythrocyte mean corpuscular volume (MCV)Ordered By: Gerda Wilks on 02-22-2023 MCV (RBC) [Entitic vol] 91.3 fL 81-99 [facility] Hematocrit Auto (Bld) [Volum e fraction]Ordered By: Gerda Wilks on 02-22-2023 Hematocrit (Bld) [Volume fraction] 37.8 % 37-47 [facility] - Chemistry and C hemistry - challengeOrdered By: Gerda Wilks on 02-22-2023 CO2 [Moles/Vol] 27.0 mmol/L 21.0-32.0 [facility] Urea nitrogen/Creatinine [Mass ratio] 33.5 mg/mg 10-20 [facility] - Hematology and Cell countsOrdered By: Gerda Wilks on 02-22-2023 Erythrocyte distribution width (RBC) [Entitic vol] 53.0 fL 35.1-43.9 [facility] Erythrocyte distribution width (RBC) [Ratio] 15.9 % 11.6-14.6 [facility] MCH (RBC) [Entitic mass] 28.3 pg 27.0-32.0 [facility] MCHC Auto (RBC) [Mass/Vol]Or dered By: Gerda Wilks on 02-22-2023 MCHC (RBC) [Mass/Vol] 31.0 g/dL 32-36 [facility] No Panel InformationOrdered By: Gerda Wilks on 02-22-2023 Estimated GFR (MDRD) Amer 93 mL/min >60 [facility] Comment on above: GFR Calc Estimated GFR (MDRD) Non-Af Amer 77 mL/min >60 [facility] Comment on above: Non- GFR Calc Platelets bldOrdered By: Gustavo Wilks on 02-22-2023 Platelets (Bld) [#/Vol] 265 10*3/uL 150-450 [facility] Serum or plasma calcium chay urement (mass/volume)Ordered By: Gerda Wilks on 02-22-2023 Calcium [Mass/Vol] 9.2 mg/dL 8.5-10.1 [facility] Serum or plasma creatinine m easurement (mass/volume)Ordered By: Gerda Wilks on 02-22-2023 Creatinine [Mass/Vol] 0.78 mg/dL 0.55-1.02 [facility] Comment on above: The validity of the calculated GFR & GFRAA in patients over 70 years has not been determined. Clinical correlation is essential. Serum or plasma urea nitroge n measurement (mass/volume)Ordered By: Gerda Wilks on 02-22-2023 Urea nitrogen [Mass/Vol] 26 mg/dL 7-18 [facility] Thin prep Papanicolaou smear with manual screeningOrdered By: Gerda Wilks on 02-22-2023 Thin prep Papanicolaou smear with manual screening 5 5-15 [facility] Basophil percentageOrdered B y: Dr. Wilks on 01-25-2023 Chloride [Moles/Vol] 108 mmol/L 98-107 [facility] Glucose [Mass/Vol] 110 mg/dL 74-106 [facility] Comment on above: Fasting Glucose resu lt from 100 to 125 mg/dL suggests IMPAIRED HOMEOSTASIS per A.D.A. criteria. Potassium [Moles/Vol] 4.1 mmol/L 3.5-5.1 [facility] Sodium [Moles/Vol] 139 mmol/L 136-145 [facility] WBC (Bld) [#/Vol] 7.2 10*3/uL 4.4-11.0 [facility] Blood erythrocytes count (nu mber/volume)Ordered By: Dr. Wilks on 01-25-2023 RBC (Bld) [#/Vol] 4.19 10*6/uL 4.2-5.4 [facility] Blood hemoglobin measurement (mass/volume)Ordered By: Dr. Wilks on 01-25-2023 Hemoglobin (Bld) [Mass/Vol] 12.0 g/dL 12.0-15.0 [facility] Blood platelet mean volumeOr dered By: Dr. Wilks on 01-25-2023 Platelet mean volume (Bld) [Entitic vol] 10.8 fL 6.2-12.0 [facility] Determination of erythrocyte mean corpuscular volume (MCV)Ordered By: Dr. Wilks on 01-25-2023 MCV (RBC) [Entitic vol] 92.8 fL 81-99 [facility] Hematocrit Auto (Bld) [Volum e fraction]Ordered By: Dr. Wilks on 01-25-2023 Hematocrit (Bld) [Volume fraction] 38.9 % 37-47 [facility] - Chemistry and C hemistry - challengeOrdered By: Dr. Wilks on 01-25-2023 CO2 [Moles/Vol] 27.0 mmol/L 21.0-32.0 [facility] Urea nitrogen/Creatinine [Mass ratio] 42.3 mg/mg 10-20 [facility] - Hematology and Cell countsOrdered By: Dr. Wilks on 01-25-2023 Erythrocyte distribution width (RBC) [Entitic vol] 55.7 fL 35.1-43.9 [facility] Erythrocyte distribution width (RBC) [Ratio] 16.3 % 11.6-14.6 [facility] MCH (RBC) [Entitic mass] 28.6 pg 27.0-32.0 [facility] MCHC Auto (RBC) [Mass/Vol]Or dered By: Dr. Wilks on 01-25-2023 MCHC (RBC) [Mass/Vol] 30.8 g/dL 32-36 [facility] No Panel InformationOrdered By: Dr. Wilks on 01-25-2023 Estimated GFR (MDRD) Amer 86 mL/min >60 [facility] Comment on above: GFR Calc Estimated GFR (MDRD) Non-Af Amer 71 mL/min >60 [facility] Comment on above: Non- GFR Calc Platelets bldOrdered By: Dr. Wilks on 01-25-2023 Platelets (Bld) [#/Vol] 262 10*3/uL 150-450 [facility] Serum or plasma calcium chay urement (mass/volume)Ordered By: Dr. Wilks on 01-25-2023 Calcium [Mass/Vol] 10.1 mg/dL 8.5-10.1 [facility] Serum or plasma creatinine m easurement (mass/volume)Ordered By: Dr. Wilks on 01-25-2023 Creatinine [Mass/Vol] 0.83 mg/dL 0.55-1.02 [facility] Comment on above: The validity of the calculated GFR & GFRAA in patients over 70 years has not been determined. Clinical correlation is essential. Serum or plasma urea nitroge n measurement (mass/volume)Ordered By: Dr. Wilks on 01-25-2023 Urea nitrogen [Mass/Vol] 35 mg/dL 7-18 [facility] Thin prep Papanicolaou smear with manual screeningOrdered By: Dr. Wilks on 01-25-2023 Thin prep Papanicolaou smear with manual screening 4 5-15 [facility] Basophil percentageOrdered B y: Dr. Wilks on 12-28-2022 Chloride [Moles/Vol] 108 mmol/L 98-107 [facility] Glucose [Mass/Vol] 109 mg/dL 74-106 [facility] Comment on above: Fasting Glucose resu lt from 100 to 125 mg/dL suggests IMPAIRED HOMEOSTASIS per A.D.A. criteria. Potassium [Moles/Vol] 4.2 mmol/L 3.5-5.1 [facility] Sodium [Moles/Vol] 141 mmol/L 136-145 [facility] WBC (Bld) [#/Vol] 8.5 10*3/uL 4.4-11.0 [facility] Blood erythrocytes count (nu mber/volume)Ordered By: Dr. Wilks on 12-28-2022 RBC (Bld) [#/Vol] 4.13 10*6/uL 4.2-5.4 [facility] Blood hemoglobin measurement (mass/volume)Ordered By: Dr. Wilks on 12-28-2022 Hemoglobin (Bld) [Mass/Vol] 11.7 g/dL 12.0-15.0 [facility] Blood platelet mean volumeOr dered By: Dr. Wilks on 12-28-2022 Platelet mean volume (Bld) [Entitic vol] 10.7 fL 6.2-12.0 [facility] Determination of erythrocyte mean corpuscular volume (MCV)Ordered By: Dr. Wilks on 12-28-2022 MCV (RBC) [Entitic vol] 92.0 fL 81-99 [facility] Hematocrit Auto (Bld) [Volum e fraction]Ordered By: Dr. Wilks on 12-28-2022 Hematocrit (Bld) [Volume fraction] 38.0 % 37-47 [facility] - Chemistry and C hemistry - challengeOrdered By: Dr. Wilks on 12-28-2022 CO2 [Moles/Vol] 26.0 mmol/L 21.0-32.0 [facility] Urea nitrogen/Creatinine [Mass ratio] 30.6 mg/mg 10-20 [facility] - Hematology and Cell countsOrdered By: Dr. Wilks on 12-28-2022 Erythrocyte distribution width (RBC) [Entitic vol] 57.1 fL 35.1-43.9 [facility] Erythrocyte distribution width (RBC) [Ratio] 17.2 % 11.6-14.6 [facility] MCH (RBC) [Entitic mass] 28.3 pg 27.0-32.0 [facility] MCHC Auto (RBC) [Mass/Vol]Or dered By: Dr. Wilks on 12-28-2022 MCHC (RBC) [Mass/Vol] 30.8 g/dL 32-36 [facility] No Panel InformationOrdered By: Dr. Wilks on 12-28-2022 Estimated GFR (MDRD) Amer 96 mL/min >60 [facility] Comment on above: GFR Calc Estimated GFR (MDRD) Non-Af Amer 80 mL/min >60 [facility] Comment on above: Non- GFR Calc Platelets bldOrdered By: Dr. Wilks on 12-28-2022 Platelets (Bld) [#/Vol] 254 10*3/uL 150-450 [facility] Serum or plasma calcium chay urement (mass/volume)Ordered By: Dr. Wilks on 12-28-2022 Calcium [Mass/Vol] 9.2 mg/dL 8.5-10.1 [facility] Serum or plasma creatinine m easurement (mass/volume)Ordered By: Dr. Wilks on 12-28-2022 Creatinine [Mass/Vol] 0.75 mg/dL 0.55-1.02 [facility] Comment on above: The validity of the calculated GFR & GFRAA in patients over 70 years has not been determined. Clinical correlation is essential. Serum or plasma urea nitroge n measurement (mass/volume)Ordered By: Dr. Wilks on 12-28-2022 Urea nitrogen [Mass/Vol] 23 mg/dL 7-18 [facility] Thin prep Papanicolaou smear with manual screeningOrdered By: Dr. Wilks on 12-28-2022 Thin prep Papanicolaou smear with manual screening 7 5-15 [facility] Basophil percentageOrdered B y: Dr. Wilks on 11-30-2022 Chloride [Moles/Vol] 107 mmol/L 98-107 [facility] Glucose [Mass/Vol] 154 mg/dL 74-106 [facility] Comment on above: Fasting Glucose resu lt greater than or equal to 126 mg/dL suggests DIABETES MELLITUS per A.D.A. criteria. Potassium [Moles/Vol] 4.0 mmol/L 3.5-5.1 [facility] Sodium [Moles/Vol] 139 mmol/L 136-145 [facility] WBC (Bld) [#/Vol] 7.4 10*3/uL 4.4-11.0 [facility] Blood erythrocytes count (nu mber/volume)Ordered By: Dr. Wilks on 11-30-2022 RBC (Bld) [#/Vol] 4.25 10*6/uL 4.2-5.4 [facility] Blood hemoglobin measurement (mass/volume)Ordered By: Dr. Wilks on 11-30-2022 Hemoglobin (Bld) [Mass/Vol] 11.8 g/dL 12.0-15.0 [facility] Blood platelet mean volumeOr dered By: Dr. Wilks on 11-30-2022 Platelet mean volume (Bld) [Entitic vol] 10.3 fL 6.2-12.0 [facility] Determination of erythrocyte mean corpuscular volume (MCV)Ordered By: Dr. Wilks on 11-30-2022 MCV (RBC) [Entitic vol] 91.3 fL 81-99 [facility] Hematocrit Auto (Bld) [Volum e fraction]Ordered By: Dr. Wilks on 11-30-2022 Hematocrit (Bld) [Volume fraction] 38.8 % 37-47 [facility] - Chemistry and C hemistry - challengeOrdered By: Dr. Wilks on 11-30-2022 CO2 [Moles/Vol] 27.0 mmol/L 21.0-32.0 [facility] Urea nitrogen/Creatinine [Mass ratio] 27.8 mg/mg 10-20 [facility] - Hematology and Cell countsOrdered By: Dr. Wilks on 11-30-2022 Erythrocyte distribution width (RBC) [Entitic vol] 55.3 fL 35.1-43.9 [facility] Erythrocyte distribution width (RBC) [Ratio] 16.7 % 11.6-14.6 [facility] MCH (RBC) [Entitic mass] 27.8 pg 27.0-32.[address] [facility] Auto (RBC) [Mass/Vol]Or dered By: Dr. Wilks on 11-30-2022 MCHC (RBC) [Mass/Vol] 30.4 g/dL 32-36 [facility] No Panel InformationOrdered By: Dr. Wilks on 11-30-2022 Estimated GFR (MDRD) Amer 82 mL/min >60 [facility] Comment on above: GFR Calc Estimated GFR (MDRD) Non-Af Amer 68 mL/min >60 [facility] Comment on above: Non- GFR Calc Platelets bldOrdered By: Dr. Wilks on 11-30-2022 Platelets (Bld) [#/Vol] 320 10*3/uL 150-450 [facility] Serum or plasma calcium chay urement (mass/volume)Ordered By: Dr. Wilks on 11-30-2022 Calcium [Mass/Vol] 9.5 mg/dL 8.5-10.1 [facility] Serum or plasma creatinine m easurement (mass/volume)Ordered By: Dr. Wilks on 11-30-2022 Creatinine [Mass/Vol] 0.86 mg/dL 0.55-1.02 [facility] Comment on above: The validity of the calculated GFR & GFRAA in patients over 70 years has not been determined. Clinical correlation is essential. Serum or plasma urea nitroge n measurement (mass/volume)Ordered By: Dr. Wilks on 11-30-2022 Urea nitrogen [Mass/Vol] 24 mg/dL 7-18 [facility] Thin prep Papanicolaou smear with manual screeningOrdered By: Dr. Wilks on 11-30-2022 Thin prep Papanicolaou smear with manual screening 5 5-15 [facility] Basophil percentageOrdered B y: Dr. Wilks on 10-30-2022 Basophil percentage 115 mg/dL 74-106 [facility] Basophil percentage 137 mmol/L 136-145 [facility] Basophil percentage 4.2 mmol/L 3.5-5.1 [facility] Basophil percentage 104 mmol/L 98-107 [facility] Basophils (Bld) [#/Vol] 8.3 10*3/uL 4.4-11.0 [facility] Chloride [Moles/Vol] 104 mmol/L 98-107 [facility] Glucose [Mass/Vol] 115 mg/dL 74-106 [facility] Comment on above: Fasting Glucose resu lt from 100 to 125 mg/dL suggests IMPAIRED HOMEOSTASIS per A.D.A. criteria. Potassium [Moles/Vol] 4.2 mmol/L 3.5-5.1 [facility] Sodium [Moles/Vol] 137 mmol/L 136-145 [facility] WBC (Bld) [#/Vol] 8.3 10*3/uL 4.4-11.0 [facility] Blood erythrocytes count (nu mber/volume)Ordered By: Dr. Wilks on 10-30-2022 RBC (Bld) [#/Vol] 4.14 10*6/uL 4.2-5.4 [facility] Blood hemoglobin measurement (mass/volume)Ordered By: Dr. Wilks on 10-30-2022 Hemoglobin (Bld) [Mass/Vol] 11.6 g/dL 12.0-15.0 [facility] Blood platelet mean volumeOr dered By: Dr. Wilks on 10-30-2022 Platelet mean volume (Bld) [Entitic vol] 10.3 fL 6.2-12.0 [facility] Determination of erythrocyte mean corpuscular volume (MCV)Ordered By: Dr. Wilks on 10-30-2022 MCV (RBC) [Entitic vol] 88.2 fL 81-99 [facility] Hematocrit Auto (Bld) [Volum e fraction]Ordered By: Dr. Wilks on 10-30-2022 Hematocrit (Bld) [Volume fraction] 36.5 % 37-47 [facility] - Chemistry and C hemistry - challengeOrdered By: Dr. Wilks on 10-30-2022 CO2 [Moles/Vol] 25.0 mmol/L 21.0-32.0 [facility] Urea nitrogen/Creatinine [Mass ratio] 27.9 mg/mg 10-20 [facility] - Hematology and Cell countsOrdered By: Dr. Wilks on 10-30-2022 Erythrocyte distribution width (RBC) [Entitic vol] 51.9 fL 35.1-43.9 [facility] Erythrocyte distribution width (RBC) [Ratio] 15.9 % 11.6-14.6 [facility] MCH (RBC) [Entitic mass] 28.0 pg 27.0-32.0 [facility] MCHC Auto (RBC) [Mass/Vol]Or dered By: Dr. Wilks on 10-30-2022 MCHC (RBC) [Mass/Vol] 31.8 g/dL 32-36 [facility] No Panel InformationOrdered By: Dr. Wilks on 10-30-2022 Estimated GFR (MDRD) Amer 83 mL/min >60 [facility] Comment on above: GFR Calc Estimated GFR (MDRD) Non-Af Amer 68 mL/min >60 [facility] Comment on above: Non- GFR Calc 28.0 pg 27.0-32.0 [facility] 15.9 % 11.6-14.6 [facility] 51.9 fl 35.1-43.9 [facility] 68 mL/min >60 [facility] 83 mL/min >60 [facility] 27.9 RATIO 10-20 [facility] 25.0 mmol/L 21.0-32.0 [facility] Platelets bldOrdered By: Dr. Wilks on 10-30-2022 Platelets (Bld) [#/Vol] 318 10*3/uL 150-450 [facility] Serum or plasma calcium chay urement (mass/volume)Ordered By: Dr. Wilks on 10-30-2022 Calcium [Mass/Vol] 9.5 mg/dL 8.5-10.1 [facility] Serum or plasma creatinine m easurement (mass/volume)Ordered By: Dr. Wilks on 10-30-2022 Creatinine [Mass/Vol] 0.86 mg/dL 0.55-1.02 [facility] Comment on above: The validity of the calculated GFR & GFRAA in patients over 70 years has not been determined. Clinical correlation is essential. Serum or plasma urea nitroge n measurement (mass/volume)Ordered By: Dr. Wilks on 10-30-2022 Urea nitrogen [Mass/Vol] 24 mg/dL 7-18 [facility] Thin prep Papanicolaou smear with manual screeningOrdered By: Dr. Wilks on 10-30-2022 Thin prep Papanicolaou smear with manual screening 8 5-15 [facility] Absolute lymphocyte countOrd ered By: Dr. Wilks on 10-17-2022 Lymphocytes Auto (Unsp spec) [#/Vol] 1.14 10*3/uL 0.83-4.51 [facility] Basophil percentageOrdered B y: Dr. Wilks on 10-17-2022 Basophil percentage 125 mg/dL 74-106 [facility] Basophil percentage 138 mmol/L 136-145 [facility] Basophil percentage 4.2 mmol/L 3.5-5.1 [facility] Basophil percentage 106 mmol/L 98-107 [facility] Basophils (Bld) [#/Vol] 7.9 10*3/uL 4.4-11.0 [facility] Basophils (Bld) [#/Vol] 5.8 10*3/uL 2.0-7.7 [facility] Basophils/100 WBC (Bld) 72.7 % 47-70 [facility] Basophils/100 WBC (Bld) 3.8 % 0-5 [facility] Basophils/100 WBC (Bld) 1.0 % 0-1 [facility] Chloride [Moles/Vol] 106 mmol/L 98-107 [facility] Eosinophils/100 WBC (Bld) 3.8 % 0-5 [facility] Glucose [Mass/Vol] 125 mg/dL 74-106 [facility] Comment on above: Fasting Glucose resu lt from 100 to 125 mg/dL suggests IMPAIRED HOMEOSTASIS per A.D.A. criteria. Neutrophils (Bld) [#/Vol] 5.8 10*3/uL 2.0-7.7 [facility] Neutrophils/100 WBC (Bld) 72.7 % 47-70 [facility] Potassium [Moles/Vol] 4.2 mmol/L 3.5-5.1 [facility] Sodium [Moles/Vol] 138 mmol/L 136-145 [facility] WBC (Bld) [#/Vol] 7.9 10*3/uL 4.4-11.0 [facility] Blood erythrocytes count (nu mber/volume)Ordered By: Dr. Wilks on 10-17-2022 RBC (Bld) [#/Vol] 4.58 10*6/uL 4.2-5.4 [facility] Blood hemoglobin measurement (mass/volume)Ordered By: Dr. Wilks on 10-17-2022 Hemoglobin (Bld) [Mass/Vol] 12.8 g/dL 12.0-15.0 [facility] Blood lymphocytes/100 leukoc ytesOrdered By: Dr. Wilks on 10-17-2022 Lymphocytes/100 WBC (Bld) 14.4 % 19-41 [facility] Blood monocytes/100 leukocyt esOrdered By: Dr. Wilks on 10-17-2022 Monocytes/100 WBC (Bld) 7.8 % 0-10 [facility] Blood platelet mean volumeOr dered By: Dr. Wilks on 10-17-2022 Platelet mean volume (Bld) [Entitic vol] 10.8 fL 6.2-12.0 [facility] Determination of erythrocyte mean corpuscular volume (MCV)Ordered By: Dr. Wilks on 10-17-2022 MCV (RBC) [Entitic vol] 90.0 fL 81-99 [facility] Hematocrit Auto (Bld) [Volum e fraction]Ordered By: Dr. Wilks on 10-17-2022 Hematocrit (Bld) [Volume fraction] 41.2 % 37-47 [facility] - Chemistry and C hemistry - challengeOrdered By: Dr. Wilks on 10-17-2022 CO2 [Moles/Vol] 26.0 mmol/L 21.0-32.0 [facility] Urea nitrogen/Creatinine [Mass ratio] 23.6 mg/mg 10-20 [facility] - Hematology and Cell countsOrdered By: Dr. Wilks on 10-17-2022 Erythrocyte distribution width (RBC) [Entitic vol] 54.4 fL 35.1-43.9 [facility] Erythrocyte distribution width (RBC) [Ratio] 16.7 % 11.6-14.6 [facility] Immature granulocytes/100 WBC (Bld) 0.300 % 0.0-0.9 [facility] Comment on above: IG% - Immature Granu locytes (promyelocytes, myelocytes and metamyelocytes) > 1% indicates that a LEFT SHIFT is Present. MCH (RBC) [Entitic mass] 27.9 pg 27.0-32.0 [facility] Nucleated RBC/100 WBC (Bld) [Ratio] 0 % 0-5 [facility] MCHC Auto (RBC) [Mass/Vol]Or dered By: Dr. Wilks on 10-17-2022 MCHC (RBC) [Mass/Vol] 31.1 g/dL 32-36 [facility] No Panel InformationOrdered By: Dr. Wilks on 10-17-2022 Estimated GFR (MDRD) Amer 84 mL/min >60 [facility] Comment on above: GFR Calc Estimated GFR (MDRD) Non-Af Amer 70 mL/min >60 [facility] Comment on above: Non- GFR Calc 27.9 pg 27.0-32.0 [facility] 16.7 % 11.6-14.6 [facility] 54.4 fl 35.1-43.9 [facility] 0.300 % 0.0-0.9 [facility] 0 % 0-5 [facility] 70 mL/min >60 [facility] 84 mL/min >60 [facility] 23.6 RATIO 10-20 [facility] 26.0 mmol/L 21.0-32.0 [facility] Platelets bldOrdered By: Dr. Wilks on 10-17-2022 Platelets (Bld) [#/Vol] 273 10*3/uL 150-450 [facility] Serum or plasma calcium chay urement (mass/volume)Ordered By: Dr. Wilks on 10-17-2022 Calcium [Mass/Vol] 10.0 mg/dL 8.5-10.1 [facility] Serum or plasma creatinine m easurement (mass/volume)Ordered By: Dr. Wilks on 10-17-2022 Creatinine [Mass/Vol] 0.85 mg/dL 0.55-1.02 [facility] Comment on above: The validity of the calculated GFR & GFRAA in patients over 70 years has not been determined. Clinical correlation is essential. Serum or plasma urea nitroge n measurement (mass/volume)Ordered By: Dr. Wilks on 10-17-2022 Urea nitrogen [Mass/Vol] 20 mg/dL 7-18 [facility] Thin prep Papanicolaou smear with manual screeningOrdered By: Dr. Wilks on 10-17-2022 Thin prep Papanicolaou smear with manual screening 6 5-15 [facility] Absolute lymphocyte countOrd ered By: Dr. Wilks on 10-10-2022 Lymphocytes Auto (Unsp spec) [#/Vol] 1.40 10*3/uL 0.83-4.51 [facility] Basophil percentageOrdered B y: Dr. Wilks on 10-10-2022 Basophil percentage 112 mg/dL 74-106 [facility] Basophil percentage 140 mmol/L 136-145 [facility] Basophil percentage 4.4 mmol/L 3.5-5.1 [facility] Basophil percentage 106 mmol/L 98-107 [facility] Basophils (Bld) [#/Vol] 7.3 10*3/uL 4.4-11.0 [facility] Basophils (Bld) [#/Vol] 4.8 10*3/uL 2.0-7.7 [facility] Basophils/100 WBC (Bld) 65.6 % 47-70 [facility] Basophils/100 WBC (Bld) 5.0 % 0-5 [facility] Basophils/100 WBC (Bld) 0.8 % 0-1 [facility] Chloride [Moles/Vol] 106 mmol/L 98-107 [facility] Eosinophils/100 WBC (Bld) 5.0 % 0-5 [facility] Glucose [Mass/Vol] 112 mg/dL 74-106 [facility] Comment on above: Fasting Glucose resu lt from 100 to 125 mg/dL suggests IMPAIRED HOMEOSTASIS per A.D.A. criteria. Neutrophils (Bld) [#/Vol] 4.8 10*3/uL 2.0-7.7 [facility] Neutrophils/100 WBC (Bld) 65.6 % 47-70 [facility] Potassium [Moles/Vol] 4.4 mmol/L 3.5-5.1 [facility] Sodium [Moles/Vol] 140 mmol/L 136-145 [facility] WBC (Bld) [#/Vol] 7.3 10*3/uL 4.4-11.0 [facility] Blood erythrocytes count (nu mber/volume)Ordered By: Dr. Wilks on 10-10-2022 RBC (Bld) [#/Vol] 4.59 10*6/uL 4.2-5.4 [facility] Blood hemoglobin measurement (mass/volume)Ordered By: Dr. Wilks on 10-10-2022 Hemoglobin (Bld) [Mass/Vol] 12.8 g/dL 12.0-15.0 [facility] Blood lymphocytes/100 leukoc ytesOrdered By: Dr. Wilks on 10-10-2022 Lymphocytes/100 WBC (Bld) 19.1 % 19-41 [facility] Blood monocytes/100 leukocyt esOrdered By: Dr. Wilks on 10-10-2022 Monocytes/100 WBC (Bld) 9.1 % 0-10 [facility] Blood platelet mean volumeOr dered By: Dr. Wilks on 10-10-2022 Platelet mean volume (Bld) [Entitic vol] 10.6 fL 6.2-12.0 [facility] Determination of erythrocyte mean corpuscular volume (MCV)Ordered By: Dr. Wilks on 10-10-2022 MCV (RBC) [Entitic vol] 89.3 fL 81-99 [facility] Hematocrit Auto (Bld) [Volum e fraction]Ordered By: Dr. Wilks on 10-10-2022 Hematocrit (Bld) [Volume fraction] 41.0 % 37-47 [facility] - Chemistry and C hemistry - challengeOrdered By: Dr. Wilks on 10-10-2022 CO2 [Moles/Vol] 29.0 mmol/L 21.0-32.0 [facility] Urea nitrogen/Creatinine [Mass ratio] 25.5 mg/mg 10-20 [facility] - Hematology and Cell countsOrdered By: Dr. Wilks on 10-10-2022 Erythrocyte distribution width (RBC) [Entitic vol] 53.8 fL 35.1-43.9 [facility] Erythrocyte distribution width (RBC) [Ratio] 16.6 % 11.6-14.6 [facility] Immature granulocytes/100 WBC (Bld) 0.400 % 0.0-0.9 [facility] Comment on above: IG% - Immature Granu locytes (promyelocytes, myelocytes and metamyelocytes) > 1% indicates that a LEFT SHIFT is Present. MCH (RBC) [Entitic mass] 27.9 pg 27.0-32.0 [facility] Nucleated RBC/100 WBC (Bld) [Ratio] 0 % 0-5 [facility] MCHC Auto (RBC) [Mass/Vol]Or dered By: Dr. Wilks on 10-10-2022 MCHC (RBC) [Mass/Vol] 31.2 g/dL 32-36 [facility] No Panel InformationOrdered By: Dr. Wilks on 10-10-2022 Estimated GFR (MDRD) Amer 87 mL/min >60 [facility] Comment on above: GFR Calc Estimated GFR (MDRD) Non-Af Amer 72 mL/min >60 [facility] Comment on above: Non- GFR Calc 27.9 pg 27.0-32.0 [facility] 16.6 % 11.6-14.6 [facility] 53.8 fl 35.1-43.9 [facility] 0.400 % 0.0-0.9 [facility] 0 % 0-5 [facility] 72 mL/min >60 [facility] 87 mL/min >60 [facility] 25.5 RATIO 10-20 [facility] 29.0 mmol/L 21.0-32.0 [facility] Platelets bldOrdered By: Dr. Wilks on 10-10-2022 Platelets (Bld) [#/Vol] 287 10*3/uL 150-450 [facility] Serum or plasma calcium chay urement (mass/volume)Ordered By: Dr. Wilks on 10-10-2022 Calcium [Mass/Vol] 11.2 mg/dL 8.5-10.1 [facility] Serum or plasma creatinine m easurement (mass/volume)Ordered By: Dr. Wilks on 10-10-2022 Creatinine [Mass/Vol] 0.82 mg/dL 0.55-1.02 [facility] Comment on above: The validity of the calculated GFR & GFRAA in patients over 70 years has not been determined. Clinical correlation is essential. Serum or plasma urea nitroge n measurement (mass/volume)Ordered By: Dr. Wilks on 10-10-2022 Urea nitrogen [Mass/Vol] 21 mg/dL 7-18 [facility] Thin prep Papanicolaou smear with manual screeningOrdered By: Dr. Wilks on 10-10-2022 Thin prep Papanicolaou smear with manual screening 5 5-15 [facility] No Panel InformationOrdered By: Dr. Wilks on 10-04-2022 Ionized Calcium 6.5 mg/dL 4.5-5.6 [facility] Comment on above: Performed at: [address] [id number] Director: Alexis Thomas PhD, Phone: [phone] Parathyroid Hormone (Intact) 90.9 pg/mL 18.4-80.1 [facility] 90.9 pg/mL 18.4-80.1 [facility] 6.5 mg/dL 4.5-5.6 [facility] Absolute lymphocyte countOrd ered By: Dr. Wilks on 10-03-2022 Lymphocytes Auto (Unsp spec) [#/Vol] 1.55 10*3/uL 0.83-4.51 [facility] Basophil percentageOrdered B y: Dr. Wilks on 10-03-2022 Basophil percentage 111 mg/dL 74-106 [facility] Basophil percentage 142 mmol/L 136-145 [facility] Basophil percentage 4.4 mmol/L 3.5-5.1 [facility] Basophil percentage 111 mmol/L 98-107 [facility] Basophils (Bld) [#/Vol] 8.1 10*3/uL 4.4-11.0 [facility] Basophils (Bld) [#/Vol] 5.3 10*3/uL 2.0-7.7 [facility] Basophils/100 WBC (Bld) 66.0 % 47-70 [facility] Basophils/100 WBC (Bld) 5.1 % 0-5 [facility] Basophils/100 WBC (Bld) 1.0 % 0-1 [facility] Chloride [Moles/Vol] 111 mmol/L 98-107 [facility] Eosinophils/100 WBC (Bld) 5.1 % 0-5 [facility] Glucose [Mass/Vol] 111 mg/dL 74-106 [facility] Comment on above: Fasting Glucose resu lt from 100 to 125 mg/dL suggests IMPAIRED HOMEOSTASIS per A.D.A. criteria. Neutrophils (Bld) [#/Vol] 5.3 10*3/uL 2.0-7.7 [facility] Neutrophils/100 WBC (Bld) 66.0 % 47-70 [facility] Potassium [Moles/Vol] 4.4 mmol/L 3.5-5.1 [facility] Comment on above: Slight Hemolysis, Re sult may be falsely increased. Sodium [Moles/Vol] 142 mmol/L 136-145 [facility] WBC (Bld) [#/Vol] 8.1 10*3/uL 4.4-11.0 [facility] Blood erythrocytes count (nu mber/volume)Ordered By: Dr. Wilks on 10-03-2022 RBC (Bld) [#/Vol] 4.70 10*6/uL 4.2-5.4 [facility] Blood hemoglobin measurement (mass/volume)Ordered By: Dr. Wilks on 10-03-2022 Hemoglobin (Bld) [Mass/Vol] 12.9 g/dL 12.0-15.0 [facility] Blood lymphocytes/100 leukoc ytesOrdered By: Dr. Wilks on 10-03-2022 Lymphocytes/100 WBC (Bld) 19.2 % 19-41 [facility] Blood monocytes/100 leukocyt esOrdered By: Dr. Wilks on 10-03-2022 Monocytes/100 WBC (Bld) 8.5 % 0-10 [facility] Blood platelet mean volumeOr dered By: Dr. Wilks on 10-03-2022 Platelet mean volume (Bld) [Entitic vol] 10.7 fL 6.2-12.0 [facility] Determination of erythrocyte mean corpuscular volume (MCV)Ordered By: Dr. Wilks on 10-03-2022 MCV (RBC) [Entitic vol] 91.1 fL 81-99 [facility] Hematocrit Auto (Bld) [Volum e fraction]Ordered By: Dr. Wilks on 10-03-2022 Hematocrit (Bld) [Volume fraction] 42.8 % 37-47 [facility] - Chemistry and C hemistry - challengeOrdered By: Dr. Wilks on 10-03-2022 CO2 [Moles/Vol] 24.0 mmol/L 21.0-32.0 [facility] Urea nitrogen/Creatinine [Mass ratio] 23.6 mg/mg 10-20 [facility] - Hematology and Cell countsOrdered By: Dr. Wilks on 10-03-2022 Erythrocyte distribution width (RBC) [Entitic vol] 55.8 fL 35.1-43.9 [facility] Erythrocyte distribution width (RBC) [Ratio] 16.4 % 11.6-14.6 [facility] Immature granulocytes/100 WBC (Bld) 0.200 % 0.0-0.9 [facility] Comment on above: IG% - Immature Granu locytes (promyelocytes, myelocytes and metamyelocytes) > 1% indicates that a LEFT SHIFT is Present. MCH (RBC) [Entitic mass] 27.4 pg 27.0-32.0 [facility] Nucleated RBC/100 WBC (Bld) [Ratio] 0 % 0-5 [facility] MCHC Auto (RBC) [Mass/Vol]Or dered By: Dr. Wilks on 10-03-2022 MCHC (RBC) [Mass/Vol] 30.1 g/dL 32-36 [facility] No Panel InformationOrdered By: Dr. Wilks on 10-03-2022 Estimated GFR (MDRD) Amer 89 mL/min >60 [facility] Comment on above: GFR Calc Estimated GFR (MDRD) Non-Af Amer 74 mL/min >60 [facility] Comment on above: Non- GFR Calc 27.4 pg 27.0-32.0 [facility] 16.4 % 11.6-14.6 [facility] 55.8 fl 35.1-43.9 [facility] 0.200 % 0.0-0.9 [facility] 0 % 0-5 [facility] 74 mL/min >60 [facility] 89 mL/min >60 [facility] 23.6 RATIO 10-20 [facility] 24.0 mmol/L 21.0-32.0 [facility] Platelets bldOrdered By: Dr. Wilks on 10-03-2022 Platelets (Bld) [#/Vol] 312 10*3/uL 150-450 [facility] Serum or plasma calcium chay urement (mass/volume)Ordered By: Dr. Wilks on 10-03-2022 Calcium [Mass/Vol] 11.1 mg/dL 8.5-10.1 [facility] Serum or plasma creatinine m easurement (mass/volume)Ordered By: Dr. Wilks on 10-03-2022 Creatinine [Mass/Vol] 0.80 mg/dL 0.55-1.02 [facility] Comment on above: The validity of the calculated GFR & GFRAA in patients over 70 years has not been determined. Clinical correlation is essential. Serum or plasma urea nitroge n measurement (mass/volume)Ordered By: Dr. Wilks on 10-03-2022 Urea nitrogen [Mass/Vol] 19 mg/dL 7-18 [facility] Thin prep Papanicolaou smear with manual screeningOrdered By: Dr. Wilks on 10-03-2022 Thin prep Papanicolaou smear with manual screening 7 5-15 [facility] Absolute lymphocyte countOrd ered By: Dr. Wilks on 09-26-2022 Lymphocytes Auto (Unsp spec) [#/Vol] 1.47 10*3/uL 0.83-4.51 [facility] Basophil percentageOrdered B y: Dr. Wilks on 09-26-2022 Basophil percentage 116 mg/dL 74-106 [facility] Basophil percentage 139 mmol/L 136-145 [facility] Basophil percentage 4.0 mmol/L 3.5-5.1 [facility] Basophil percentage 106 mmol/L 98-107 [facility] Basophils (Bld) [#/Vol] 8.4 10*3/uL 4.4-11.0 [facility] Basophils (Bld) [#/Vol] 5.5 10*3/uL 2.0-7.7 [facility] Basophils/100 WBC (Bld) 65.5 % 47-70 [facility] Basophils/100 WBC (Bld) 6.2 % 0-5 [facility] Basophils/100 WBC (Bld) 0.8 % 0-1 [facility] Chloride [Moles/Vol] 106 mmol/L 98-107 [facility] Eosinophils/100 WBC (Bld) 6.2 % 0-5 [facility] Glucose [Mass/Vol] 116 mg/dL 74-106 [facility] Comment on above: Fasting Glucose resu lt from 100 to 125 mg/dL suggests IMPAIRED HOMEOSTASIS per A.D.A. criteria. Neutrophils (Bld) [#/Vol] 5.5 10*3/uL 2.0-7.7 [facility] Neutrophils/100 WBC (Bld) 65.5 % 47-70 [facility] Potassium [Moles/Vol] 4.0 mmol/L 3.5-5.1 [facility] Sodium [Moles/Vol] 139 mmol/L 136-145 [facility] WBC (Bld) [#/Vol] 8.4 10*3/uL 4.4-11.0 [facility] Blood erythrocytes count (nu mber/volume)Ordered By: Dr. Wilks on 09-26-2022 RBC (Bld) [#/Vol] 4.33 10*6/uL 4.2-5.4 [facility] Blood hemoglobin measurement (mass/volume)Ordered By: Dr. Wilks on 09-26-2022 Hemoglobin (Bld) [Mass/Vol] 11.9 g/dL 12.0-15.0 [facility] Blood lymphocytes/100 leukoc ytesOrdered By: Dr. Wilks on 09-26-2022 Lymphocytes/100 WBC (Bld) 17.5 % 19-41 [facility] Blood monocytes/100 leukocyt esOrdered By: Dr. Wilks on 09-26-2022 Monocytes/100 WBC (Bld) 9.4 % 0-10 [facility] Blood platelet mean volumeOr dered By: Dr. Wilks on 01-31-2023 Platelet mean volume (Bld) [Entitic vol] 10.8 fL 6.2-12.0 [facility] Determination of erythrocyte mean corpuscular volume (MCV)Ordered By: Dr. Wilks on 09-26-2022 MCV (RBC) [Entitic vol] 89.8 fL 81-99 [facility] Hematocrit Auto (Bld) [Volum e fraction]Ordered By: Dr. Wilks on 09-26-2022 Hematocrit (Bld) [Volume fraction] 38.9 % 37-47 [facility] - Chemistry and C hemistry - challengeOrdered By: Dr. Wilks on 09-26-2022 CO2 [Moles/Vol] 28.0 mmol/L 21.0-32.0 [facility] Urea nitrogen/Creatinine [Mass ratio] 24.9 mg/mg 10-20 [facility] - Hematology and Cell countsOrdered By: Dr. Wilks on 09-26-2022 Erythrocyte distribution width (RBC) [Entitic vol] 54.1 fL 35.1-43.9 [facility] Erythrocyte distribution width (RBC) [Ratio] 16.5 % 11.6-14.6 [facility] Immature granulocytes/100 WBC (Bld) 0.600 % 0.0-0.9 [facility] Comment on above: IG% - Immature Granu locytes (promyelocytes, myelocytes and metamyelocytes) > 1% indicates that a LEFT SHIFT is Present. MCH (RBC) [Entitic mass] 27.5 pg 27.0-32.0 [facility] Nucleated RBC/100 WBC (Bld) [Ratio] 0 % 0-5 [facility] MCHC Auto (RBC) [Mass/Vol]Or dered By: Dr. Wilks on 09-26-2022 MCHC (RBC) [Mass/Vol] 30.6 g/dL 32-36 [facility] No Panel InformationOrdered By: Dr. Wilks on 09-26-2022 Estimated GFR (MDRD) Amer 95 mL/min >60 [facility] Comment on above: GFR Calc Estimated GFR (MDRD) Non-Af Amer 78 mL/min >60 [facility] Comment on above: Non- GFR Calc 27.5 pg 27.0-32.0 [facility] 16.5 % 11.6-14.6 [facility] 54.1 fl 35.1-43.9 [facility] 0.600 % 0.0-0.9 [facility] 0 % 0-5 [facility] 78 mL/min >60 [facility] 95 mL/min >60 [facility] 24.9 RATIO 10-20 [facility] 28.0 mmol/L 21.0-32.0 [facility] Platelets bldOrdered By: Dr. Wilks on 09-26-2022 Platelets (Bld) [#/Vol] 277 10*3/uL 150-450 [facility] Serum or plasma calcium chay urement (mass/volume)Ordered By: Dr. Wilks on 09-26-2022 Calcium [Mass/Vol] 10.8 mg/dL 8.5-10.1 [facility] Serum or plasma creatinine m easurement (mass/volume)Ordered By: Dr. Wilks on 09-26-2022 Creatinine [Mass/Vol] 0.76 mg/dL 0.55-1.02 [facility] Comment on above: The validity of the calculated GFR & GFRAA in patients over 70 years has not been determined. Clinical correlation is essential. Serum or plasma urea nitroge n measurement (mass/volume)Ordered By: Dr. Wilks on 09-26-2022 Urea nitrogen [Mass/Vol] 19 mg/dL 7-18 [facility] Thin prep Papanicolaou smear with manual screeningOrdered By: Dr. Wilks on 09-26-2022 Thin prep Papanicolaou smear with manual screening 5 5-15 [facility] Absolute lymphocyte countOrd ered By: Dr. Wilks on 09-19-2022 Lymphocytes Auto (Unsp spec) [#/Vol] 1.24 10*3/uL 0.83-4.51 [facility] Basophil percentageOrdered B y: Dr. Wilks on 09-19-2022 Basophil percentage 113 mg/dL 74-106 [facility] Basophil percentage 140 mmol/L 136-145 [facility] Basophil percentage 3.9 mmol/L 3.5-5.1 [facility] Basophil percentage 107 mmol/L 98-107 [facility] Basophils (Bld) [#/Vol] 8.0 10*3/uL 4.4-11.0 [facility] Basophils (Bld) [#/Vol] 5.5 10*3/uL 2.0-7.7 [facility] Basophils/100 WBC (Bld) 68.6 % 47-70 [facility] Basophils/100 WBC (Bld) 5.6 % 0-5 [facility] Basophils/100 WBC (Bld) 0.9 % 0-1 [facility] Chloride [Moles/Vol] 107 mmol/L 98-107 [facility] Eosinophils/100 WBC (Bld) 5.6 % 0-5 [facility] Glucose [Mass/Vol] 113 mg/dL 74-106 [facility] Comment on above: Fasting Glucose resu lt from 100 to 125 mg/dL suggests IMPAIRED HOMEOSTASIS per A.D.A. criteria. Neutrophils (Bld) [#/Vol] 5.5 10*3/uL 2.0-7.7 [facility] Neutrophils/100 WBC (Bld) 68.6 % 47-70 [facility] Potassium [Moles/Vol] 3.9 mmol/L 3.5-5.1 [facility] Sodium [Moles/Vol] 140 mmol/L 136-145 [facility] WBC (Bld) [#/Vol] 8.0 10*3/uL 4.4-11.0 [facility] Blood erythrocytes count (nu mber/volume)Ordered By: Dr. Wilks on 09-19-2022 RBC (Bld) [#/Vol] 4.38 10*6/uL 4.2-5.4 [facility] Blood hemoglobin measurement (mass/volume)Ordered By: Dr. Wilks on 09-19-2022 Hemoglobin (Bld) [Mass/Vol] 12.2 g/dL 12.0-15.0 [facility] Blood lymphocytes/100 leukoc ytesOrdered By: Dr. Wilks on 09-19-2022 Lymphocytes/100 WBC (Bld) 15.5 % 19-41 [facility] Blood monocytes/100 leukocyt esOrdered By: Dr. Wilks on 09-19-2022 Monocytes/100 WBC (Bld) 9.1 % 0-10 [facility] Blood platelet mean volumeOr dered By: Dr. Wilks on 09-19-2022 Platelet mean volume (Bld) [Entitic vol] 11.2 fL 6.2-12.0 [facility] Determination of erythrocyte mean corpuscular volume (MCV)Ordered By: Dr. Wilks on 09-19-2022 MCV (RBC) [Entitic vol] 90.9 fL 81-99 [facility] Hematocrit Auto (Bld) [Volum e fraction]Ordered By: Dr. Wilks on 09-19-2022 Hematocrit (Bld) [Volume fraction] 39.8 % 37-47 [facility] - Chemistry and C hemistry - challengeOrdered By: Dr. Wilks on 09-19-2022 CO2 [Moles/Vol] 27.0 mmol/L 21.0-32.0 [facility] Urea nitrogen/Creatinine [Mass ratio] 25.8 mg/mg 10-20 [facility] - Hematology and Cell countsOrdered By: Dr. Wilks on 09-19-2022 Erythrocyte distribution width (RBC) [Entitic vol] 54.8 fL 35.1-43.9 [facility] Erythrocyte distribution width (RBC) [Ratio] 16.4 % 11.6-14.6 [facility] Immature granulocytes/100 WBC (Bld) 0.300 % 0.0-0.9 [facility] Comment on above: IG% - Immature Granu locytes (promyelocytes, myelocytes and metamyelocytes) > 1% indicates that a LEFT SHIFT is Present. MCH (RBC) [Entitic mass] 27.9 pg 27.0-32.0 [facility] Nucleated RBC/100 WBC (Bld) [Ratio] 0 % 0-5 [facility] MCHC Auto (RBC) [Mass/Vol]Or dered By: Dr. Wilks on 09-19-2022 MCHC (RBC) [Mass/Vol] 30.7 g/dL 32-36 [facility] No Panel InformationOrdered By: Dr. Wilks on 09-19-2022 Estimated GFR (MDRD) Amer 88 mL/min >60 [facility] Comment on above: GFR Calc Estimated GFR (MDRD) Non-Af Amer 73 mL/min >60 [facility] Comment on above: Non- GFR Calc 27.9 pg 27.0-32.0 [facility] 16.4 % 11.6-14.6 [facility] 54.8 fl 35.1-43.9 [facility] 0.300 % 0.0-0.9 [facility] 0 % 0-5 [facility] 73 mL/min >60 [facility] 88 mL/min >60 [facility] 25.8 RATIO 10-20 [facility] 27.0 mmol/L 21.0-32.0 [facility] Platelets bldOrdered By: Dr. Wilks on 09-19-2022 Platelets (Bld) [#/Vol] 299 10*3/uL 150-450 [facility] Serum or plasma calcium chay urement (mass/volume)Ordered By: Dr. Wilks on 09-19-2022 Calcium [Mass/Vol] 10.3 mg/dL 8.5-10.1 [facility] Serum or plasma creatinine m easurement (mass/volume)Ordered By: Dr. Wilks on 09-19-2022 Creatinine [Mass/Vol] 0.81 mg/dL 0.55-1.02 [facility] Comment on above: The validity of the calculated GFR & GFRAA in patients over 70 years has not been determined. Clinical correlation is essential. Serum or plasma urea nitroge n measurement (mass/volume)Ordered By: Dr. Wilks on 09-19-2022 Urea nitrogen [Mass/Vol] 21 mg/dL 7-18 [facility] Thin prep Papanicolaou smear with manual screeningOrdered By: Dr. Wilks on 09-19-2022 Thin prep Papanicolaou smear with manual screening 6 5-15 [facility] Absolute lymphocyte countOrd ered By: Dr. Wilks on 09-12-2022 Lymphocytes Auto (Unsp spec) [#/Vol] 1.68 10*3/uL 0.83-4.51 [facility] Basophil percentageOrdered B y: Dr. Wilks on 09-12-2022 Basophil percentage 114 mg/dL 74-106 [facility] Basophil percentage 139 mmol/L 136-145 [facility] Basophil percentage 4.4 mmol/L 3.5-5.1 [facility] Basophil percentage 110 mmol/L 98-107 [facility] Basophils (Bld) [#/Vol] 8.2 10*3/uL 4.4-11.0 [facility] Basophils (Bld) [#/Vol] 5.3 10*3/uL 2.0-7.7 [facility] Basophils/100 WBC (Bld) 64.6 % 47-70 [facility] Basophils/100 WBC (Bld) 5.0 % 0-5 [facility] Basophils/100 WBC (Bld) 1.1 % 0-1 [facility] Chloride [Moles/Vol] 110 mmol/L 98-107 [facility] Eosinophils/100 WBC (Bld) 5.0 % 0-5 [facility] Glucose [Mass/Vol] 114 mg/dL 74-106 [facility] Comment on above: Fasting Glucose resu lt from 100 to 125 mg/dL suggests IMPAIRED HOMEOSTASIS per A.D.A. criteria. Neutrophils (Bld) [#/Vol] 5.3 10*3/uL 2.0-7.7 [facility] Neutrophils/100 WBC (Bld) 64.6 % 47-70 [facility] Potassium [Moles/Vol] 4.4 mmol/L 3.5-5.1 [facility] Sodium [Moles/Vol] 139 mmol/L 136-145 [facility] WBC (Bld) [#/Vol] 8.2 10*3/uL 4.4-11.0 [facility] Blood erythrocytes count (nu mber/volume)Ordered By: Dr. Wilks on 09-12-2022 RBC (Bld) [#/Vol] 4.36 10*6/uL 4.2-5.4 [facility] Blood hemoglobin measurement (mass/volume)Ordered By: Dr. Wilks on 09-12-2022 Hemoglobin (Bld) [Mass/Vol] 12.0 g/dL 12.0-15.0 [facility] Blood lymphocytes/100 leukoc ytesOrdered By: Dr. Wilks on 09-12-2022 Lymphocytes/100 WBC (Bld) 20.5 % 19-41 [facility] Blood monocytes/100 leukocyt esOrdered By: Dr. Wilks on 09-12-2022 Monocytes/100 WBC (Bld) 8.3 % 0-10 [facility] Blood platelet mean volumeOr dered By: Dr. Wilks on 09-12-2022 Platelet mean volume (Bld) [Entitic vol] 10.7 fL 6.2-12.0 [facility] Determination of erythrocyte mean corpuscular volume (MCV)Ordered By: Dr. Wilks on 09-12-2022 MCV (RBC) [Entitic vol] 90.8 fL 81-99 [facility] Hematocrit Auto (Bld) [Volum e fraction]Ordered By: Dr. Wilks on 09-12-2022 Hematocrit (Bld) [Volume fraction] 39.6 % 37-47 [facility] - Chemistry and C hemistry - challengeOrdered By: Dr. Wilks on 09-12-2022 CO2 [Moles/Vol] 25.0 mmol/L 21.0-32.0 [facility] Urea nitrogen/Creatinine [Mass ratio] 29.7 mg/mg 10-20 [facility] - Hematology and Cell countsOrdered By: Dr. Wilks on 09-12-2022 Erythrocyte distribution width (RBC) [Entitic vol] 54.4 fL 35.1-43.9 [facility] Erythrocyte distribution width (RBC) [Ratio] 16.3 % 11.6-14.6 [facility] Immature granulocytes/100 WBC (Bld) 0.500 % 0.0-0.9 [facility] Comment on above: IG% - Immature Granu locytes (promyelocytes, myelocytes and metamyelocytes) > 1% indicates that a LEFT SHIFT is Present. MCH (RBC) [Entitic mass] 27.5 pg 27.0-32.0 [facility] Nucleated RBC/100 WBC (Bld) [Ratio] 0 % 0-5 [facility] MCHC Auto (RBC) [Mass/Vol]Or dered By: Dr. Wilks on 09-12-2022 MCHC (RBC) [Mass/Vol] 30.3 g/dL 32-36 [facility] No Panel InformationOrdered By: Dr. Wilks on 09-12-2022 Estimated GFR (MDRD) Amer 98 mL/min >60 [facility] Comment on above: GFR Calc Estimated GFR (MDRD) Non-Af Amer 81 mL/min >60 [facility] Comment on above: Non- GFR Calc 27.5 pg 27.0-32.0 [facility] 16.3 % 11.6-14.6 [facility] 54.4 fl 35.1-43.9 [facility] 0.500 % 0.0-0.9 [facility] 0 % 0-5 [facility] 81 mL/min >60 [facility] 98 mL/min >60 [facility] 29.7 RATIO 10-20 [facility] 25.0 mmol/L 21.0-32.0 [facility] Platelets bldOrdered By: Dr. Wilks on 09-12-2022 Platelets (Bld) [#/Vol] 331 10*3/uL 150-450 [facility] Serum or plasma calcium chay urement (mass/volume)Ordered By: Dr. Wilks on 09-12-2022 Calcium [Mass/Vol] 10.7 mg/dL 8.5-10.1 [facility] Serum or plasma creatinine m easurement (mass/volume)Ordered By: Dr. Wilks on 09-12-2022 Creatinine [Mass/Vol] 0.74 mg/dL 0.55-1.02 [facility] Comment on above: The validity of the calculated GFR & GFRAA in patients over 70 years has not been determined. Clinical correlation is essential. Serum or plasma urea nitroge n measurement (mass/volume)Ordered By: Dr. Wilks on 09-12-2022 Urea nitrogen [Mass/Vol] 22 mg/dL 7-18 [facility] Thin prep Papanicolaou smear with manual screeningOrdered By: Dr. Wilks on 09-12-2022 Thin prep Papanicolaou smear with manual screening 4 5-15 [facility] Absolute lymphocyte countOrd ered By: Dr. Wilks on 09-05-2022 Lymphocytes Auto (Unsp spec) [#/Vol] 1.29 10*3/uL 0.83-4.51 [facility] Basophil percentageOrdered B y: Dr. Wilks on 09-05-2022 Basophil percentage 92 mg/dL 74-106 [facility] Basophil percentage 139 mmol/L 136-145 [facility] Basophil percentage 4.1 mmol/L 3.5-5.1 [facility] Basophil percentage 106 mmol/L 98-107 [facility] Basophils (Bld) [#/Vol] 7.3 10*3/uL 4.4-11.0 [facility] Basophils (Bld) [#/Vol] 4.9 10*3/uL 2.0-7.7 [facility] Basophils/100 WBC (Bld) 1.0 % 0-1 [facility] Basophils/100 WBC (Bld) 67.1 % 47-70 [facility] Basophils/100 WBC (Bld) 4.9 % 0-5 [facility] Chloride [Moles/Vol] 106 mmol/L 98-107 [facility] Eosinophils/100 WBC (Bld) 4.9 % 0-5 [facility] Glucose [Mass/Vol] 92 mg/dL 74-106 [facility] Neutrophils (Bld) [#/Vol] 4.9 10*3/uL 2.0-7.7 [facility] Neutrophils/100 WBC (Bld) 67.1 % 47-70 [facility] Potassium [Moles/Vol] 4.1 mmol/L 3.5-5.1 [facility] Sodium [Moles/Vol] 139 mmol/L 136-145 [facility] WBC (Bld) [#/Vol] 7.3 10*3/uL 4.4-11.0 [facility] Blood erythrocytes count (nu mber/volume)Ordered By: Dr. Wilks on 09-05-2022 RBC (Bld) [#/Vol] 4.37 10*6/uL 4.2-5.4 [facility] Blood hemoglobin measurement (mass/volume)Ordered By: Dr. Wilks on 09-05-2022 Hemoglobin (Bld) [Mass/Vol] 12.4 g/dL 12.0-15.0 [facility] Blood lymphocytes/100 leukoc ytesOrdered By: Dr. Wilks on 09-05-2022 Lymphocytes/100 WBC (Bld) 17.6 % 19-41 [facility] Blood monocytes/100 leukocyt esOrdered By: Dr. Wilks on 09-05-2022 Monocytes/100 WBC (Bld) 9.0 % 0-10 [facility] Blood platelet mean volumeOr dered By: Dr. Wilks on 09-05-2022 Platelet mean volume (Bld) [Entitic vol] 10.3 fL 6.2-12.0 [facility] Determination of erythrocyte mean corpuscular volume (MCV)Ordered By: Dr. Wilks on 09-05-2022 MCV (RBC) [Entitic vol] 90.4 fL 81-99 [facility] Hematocrit Auto (Bld) [Volum e fraction]Ordered By: Dr. Wilks on 09-05-2022 Hematocrit (Bld) [Volume fraction] 39.5 % 37-47 [facility] - Chemistry and C hemistry - challengeOrdered By: Dr. Wilks on 09-05-2022 CO2 [Moles/Vol] 27.0 mmol/L 21.0-32.0 [facility] Urea nitrogen/Creatinine [Mass ratio] 27.4 mg/mg 10-20 [facility] - Hematology and Cell countsOrdered By: Dr. Wilks on 09-05-2022 Erythrocyte distribution width (RBC) [Entitic vol] 53.8 fL 35.1-43.9 [facility] Erythrocyte distribution width (RBC) [Ratio] 16.1 % 11.6-14.6 [facility] Immature granulocytes/100 WBC (Bld) 0.400 % 0.0-0.9 [facility] Comment on above: IG% - Immature Granu locytes (promyelocytes, myelocytes and metamyelocytes) > 1% indicates that a LEFT SHIFT is Present. MCH (RBC) [Entitic mass] 28.4 pg 27.0-32.0 [facility] Nucleated RBC/100 WBC (Bld) [Ratio] 0 % 0-5 [facility] MCHC Auto (RBC) [Mass/Vol]Or dered By: Dr. Wilks on 01-10-2023 MCHC (RBC) [Mass/Vol] 31.4 g/dL 32-36 [facility] No Panel InformationOrdered By: Dr. Wilks on 09-05-2022 Estimated GFR (MDRD) Amer 81 mL/min >60 [facility] Comment on above: GFR Calc Estimated GFR (MDRD) Non-Af Amer 67 mL/min >60 [facility] Comment on above: Non- GFR Calc 28.4 pg 27.0-32.0 [facility] 16.1 % 11.6-14.6 [facility] 53.8 fl 35.1-43.9 [facility] 0.400 % 0.0-0.9 [facility] 0 % 0-5 [facility] 67 mL/min >60 [facility] 81 mL/min >60 [facility] 27.4 RATIO 10-20 [facility] 27.0 mmol/L 21.0-32.0 [facility] Platelets bldOrdered By: Dr. Wilks on 09-05-2022 Platelets (Bld) [#/Vol] 357 10*3/uL 150-450 [facility] Serum or plasma calcium chay urement (mass/volume)Ordered By: Dr. Wilks on 09-05-2022 Calcium [Mass/Vol] 11.1 mg/dL 8.5-10.1 [facility] Serum or plasma creatinine m easurement (mass/volume)Ordered By: Dr. Wilks on 09-05-2022 Creatinine [Mass/Vol] 0.88 mg/dL 0.55-1.02 [facility] Comment on above: The validity of the calculated GFR & GFRAA in patients over 70 years has not been determined. Clinical correlation is essential. Serum or plasma urea nitroge n measurement (mass/volume)Ordered By: Dr. Wilks on 09-05-2022 Urea nitrogen [Mass/Vol] 24 mg/dL 7-18 [facility] Thin prep Papanicolaou smear with manual screeningOrdered By: Dr. Wilks on 09-05-2022 Thin prep Papanicolaou smear with manual screening 6 5-15 [facility] Absolute lymphocyte countOrd ered By: Dr. Wilks on 01-03-2023 Lymphocytes Auto (Unsp spec) [#/Vol] 1.18 10*3/uL 0.83-4.51 [facility] Basophil percentageOrdered B y: Dr. Wilks on 08-29-2022 Basophil percentage 101 mg/dL 74-106 [facility] Basophil percentage 140 mmol/L 136-145 [facility] Basophil percentage 4.1 mmol/L 3.5-5.1 [facility] Basophil percentage 107 mmol/L 98-107 [facility] Basophils (Bld) [#/Vol] 6.7 10*3/uL 4.4-11.0 [facility] Basophils (Bld) [#/Vol] 4.3 10*3/uL 2.0-7.7 [facility] Basophils/100 WBC (Bld) 0.9 % 0-1 [facility] Basophils/100 WBC (Bld) 64.3 % 47-70 [facility] Basophils/100 WBC (Bld) 4.8 % 0-5 [facility] Chloride [Moles/Vol] 107 mmol/L 98-107 [facility] Eosinophils/100 WBC (Bld) 4.8 % 0-5 [facility] Glucose [Mass/Vol] 101 mg/dL 74-106 [facility] Comment on above: Fasting Glucose resu lt from 100 to 125 mg/dL suggests IMPAIRED HOMEOSTASIS per A.D.A. criteria. Neutrophils (Bld) [#/Vol] 4.3 10*3/uL 2.0-7.7 [facility] Neutrophils/100 WBC (Bld) 64.3 % 47-70 [facility] Potassium [Moles/Vol] 4.1 mmol/L 3.5-5.1 [facility] Sodium [Moles/Vol] 140 mmol/L 136-145 [facility] WBC (Bld) [#/Vol] 6.7 10*3/uL 4.4-11.0 [facility] Blood erythrocytes count (nu mber/volume)Ordered By: Dr. Wilks on 08-29-2022 RBC (Bld) [#/Vol] 4.08 10*6/uL 4.2-5.4 [facility] Blood hemoglobin measurement (mass/volume)Ordered By: Dr. Wilks on 08-29-2022 Hemoglobin (Bld) [Mass/Vol] 11.6 g/dL 12.0-15.0 [facility] Blood lymphocytes/100 leukoc ytesOrdered By: Dr. Wilks on 08-29-2022 Lymphocytes/100 WBC (Bld) 17.6 % 19-41 [facility] Blood monocytes/100 leukocyt esOrdered By: Dr. Wilks on 08-29-2022 Monocytes/100 WBC (Bld) 10.8 % 0-10 [facility] Blood platelet mean volumeOr dered By: Dr. Wilks on 08-29-2022 Platelet mean volume (Bld) [Entitic vol] 10.6 fL 6.2-12.0 [facility] Determination of erythrocyte mean corpuscular volume (MCV)Ordered By: Dr. Wilks on 08-29-2022 MCV (RBC) [Entitic vol] 91.4 fL 81-99 [facility] Hematocrit Auto (Bld) [Volum e fraction]Ordered By: Dr. Wilks on 08-29-2022 Hematocrit (Bld) [Volume fraction] 37.3 % 37-47 [facility] - Chemistry and C hemistry - challengeOrdered By: Dr. Wilks on 08-29-2022 CO2 [Moles/Vol] 25.0 mmol/L 21.0-32.0 [facility] Urea nitrogen/Creatinine [Mass ratio] 19.1 mg/mg 10-20 [facility] - Hematology and Cell countsOrdered By: Dr. Wilks on 08-29-2022 Erythrocyte distribution width (RBC) [Entitic vol] 55.7 fL 35.1-43.9 [facility] Erythrocyte distribution width (RBC) [Ratio] 16.4 % 11.6-14.6 [facility] Immature granulocytes/100 WBC (Bld) 1.600 % 0.0-0.9 [facility] Comment on above: IG% - Immature Granu locytes (promyelocytes, myelocytes and metamyelocytes) > 1% indicates that a LEFT SHIFT is Present. MCH (RBC) [Entitic mass] 28.4 pg 27.0-32.0 [facility] Nucleated RBC/100 WBC (Bld) [Ratio] 0 % 0-5 [facility] ([facility]BC) [Mass/Vol]Or dered By: Dr. Wilks on 08-29-2022 MCHC (RBC) [Mass/Vol] 31.1 g/dL 32-36 [facility] No Panel InformationOrdered By: Dr. Wilks on 08-29-2022 Estimated GFR (MDRD) Amer 108 mL/min >60 [facility] Comment on above: GFR Calc Estimated GFR (MDRD) Non-Af Amer 90 mL/min >60 [facility] Comment on above: Non- GFR Calc 28.4 pg 27.0-32.0 [facility] 16.4 % 11.6-14.6 [facility] 55.7 fl 35.1-43.9 [facility] 1.600 % 0.0-0.9 [facility] 0 % 0-5 [facility] 90 mL/min >60 [facility] 108 mL/min >60 [facility] 19.1 RATIO 10-20 [facility] 25.0 mmol/L 21.0-32.0 [facility] Platelets bldOrdered By: Dr. Wilks on 08-29-2022 Platelets (Bld) [#/Vol] 331 10*3/uL 150-450 [facility] Serum or plasma calcium chay urement (mass/volume)Ordered By: Dr. Wilks on 08-29-2022 Calcium [Mass/Vol] 10.3 mg/dL 8.5-10.1 [facility] Serum or plasma creatinine m easurement (mass/volume)Ordered By: Dr. Wilks on 08-29-2022 Creatinine [Mass/Vol] 0.68 mg/dL 0.55-1.02 [facility] Comment on above: The validity of the calculated GFR & GFRAA in patients over 70 years has not been determined. Clinical correlation is essential. Serum or plasma urea nitroge n measurement (mass/volume)Ordered By: Dr. Wilks on 08-29-2022 Urea nitrogen [Mass/Vol] 13 mg/dL 7-18 [facility] Thin prep Papanicolaou smear with manual screeningOrdered By: Dr. Wilks on 08-29-2022 Thin prep Papanicolaou smear with manual screening 8 5-15 [facility] Absolute lymphocyte countOrd ered By: Dr. Wilks on 08-22-2022 Lymphocytes Auto (Unsp spec) [#/Vol] 1.23 10*3/uL 0.83-4.51 [facility] Basophil percentageOrdered B y: Dr. Wilks on 08-22-2022 Basophil percentage 95 mg/dL 74-106 [facility] Basophil percentage 140 mmol/L 136-145 [facility] Basophil percentage 4.2 mmol/L 3.5-5.1 [facility] Basophil percentage 110 mmol/L 98-107 [facility] Basophils (Bld) [#/Vol] 6.5 10*3/uL 4.4-11.0 [facility] Basophils (Bld) [#/Vol] 4.2 10*3/uL 2.0-7.7 [facility] Basophils/100 WBC (Bld) 1.1 % 0-1 [facility] Basophils/100 WBC (Bld) 65.1 % 47-70 [facility] Basophils/100 WBC (Bld) 5.6 % 0-5 [facility] Chloride [Moles/Vol] 110 mmol/L 98-107 [facility] Eosinophils/100 WBC (Bld) 5.6 % 0-5 [facility] Glucose [Mass/Vol] 95 mg/dL 74-106 [facility] Neutrophils (Bld) [#/Vol] 4.2 10*3/uL 2.0-7.7 [facility] Neutrophils/100 WBC (Bld) 65.1 % 47-70 [facility] Potassium [Moles/Vol] 4.2 mmol/L 3.5-5.1 [facility] Sodium [Moles/Vol] 140 mmol/L 136-145 [facility] WBC (Bld) [#/Vol] 6.5 10*3/uL 4.4-11.0 [facility] Blood erythrocytes count (nu mber/volume)Ordered By: Dr. Wilks on 08-22-2022 RBC (Bld) [#/Vol] 4.19 10*6/uL 4.2-5.4 [facility] Blood hemoglobin measurement (mass/volume)Ordered By: Dr. Wilks on 08-22-2022 Hemoglobin (Bld) [Mass/Vol] 12.0 g/dL 12.0-15.0 [facility] Blood lymphocytes/100 leukoc ytesOrdered By: Dr. Wilks on 08-22-2022 Lymphocytes/100 WBC (Bld) 19.0 % 19-41 [facility] Blood monocytes/100 leukocyt esOrdered By: Dr. Wilks on 08-22-2022 Monocytes/100 WBC (Bld) 8.7 % 0-10 [facility] Blood platelet mean volumeOr dered By: Dr. Wilks on 08-22-2022 Platelet mean volume (Bld) [Entitic vol] 10.5 fL 6.2-12.0 [facility] Determination of erythrocyte mean corpuscular volume (MCV)Ordered By: Dr. Wilks on 08-22-2022 MCV (RBC) [Entitic vol] 92.8 fL 81-99 [facility] Hematocrit Auto (Bld) [Volum e fraction]Ordered By: Dr. Wilks on 08-22-2022 Hematocrit (Bld) [Volume fraction] 38.9 % 37-47 [facility] - Chemistry and C hemistry - challengeOrdered By: Dr. Wilks on 08-22-2022 CO2 [Moles/Vol] 26.0 mmol/L 21.0-32.0 [facility] Urea nitrogen/Creatinine [Mass ratio] 22.2 mg/mg 10-20 [facility] - Hematology and Cell countsOrdered By: Dr. Wilks on 08-22-2022 Erythrocyte distribution width (RBC) [Entitic vol] 56.8 fL 35.1-43.9 [facility] Erythrocyte distribution width (RBC) [Ratio] 16.5 % 11.6-14.6 [facility] Immature granulocytes/100 WBC (Bld) 0.500 % 0.0-0.9 [facility] Comment on above: IG% - Immature Granu locytes (promyelocytes, myelocytes and metamyelocytes) > 1% indicates that a LEFT SHIFT is Present. MCH (RBC) [Entitic mass] 28.6 pg 27.0-32.0 [facility] Nucleated RBC/100 WBC (Bld) [Ratio] 0 % 0-5 [facility] Auto (RBC) [Mass/Vol]Or dered By: Dr. Wilks on 08-22-2022 MCHC (RBC) [Mass/Vol] 30.8 g/dL 32-36 [facility] No Panel InformationOrdered By: Dr. Wilks on 08-22-2022 Estimated GFR (MDRD) Amer 101 mL/min >60 [facility] Comment on above: GFR Calc Estimated GFR (MDRD) Non-Af Amer 84 mL/min >60 [facility] Comment on above: Non- GFR Calc 28.6 pg 27.0-32.0 [facility] 16.5 % 11.6-14.6 [facility] 56.8 fl 35.1-43.9 [facility] 0.500 % 0.0-0.9 [facility] 0 % 0-5 [facility] 84 mL/min >60 [facility] 101 mL/min >60 [facility] 22.2 RATIO 10-20 [facility] 26.0 mmol/L 21.0-32.0 [facility] Platelets bldOrdered By: Dr. Wilks on 08-22-2022 Platelets (Bld) [#/Vol] 331 10*3/uL 150-450 [facility] Serum or plasma calcium chay urement (mass/volume)Ordered By: Dr. Wilsk on 08-22-2022 Calcium [Mass/Vol] 10.9 mg/dL 8.5-10.1 [facility] Serum or plasma creatinine m easurement (mass/volume)Ordered By: Dr. Wilks on 08-22-2022 Creatinine [Mass/Vol] 0.72 mg/dL 0.55-1.02 [facility] Comment on above: The validity of the calculated GFR & GFRAA in patients over 70 years has not been determined. Clinical correlation is essential. Serum or plasma urea nitroge n measurement (mass/volume)Ordered By: Dr. Wilks on 08-22-2022 Urea nitrogen [Mass/Vol] 16 mg/dL 7-18 [facility] Thin prep Papanicolaou smear with manual screeningOrdered By: Dr. Wilks on 08-22-2022 Thin prep Papanicolaou smear with manual screening 4 5-15 [facility] Absolute lymphocyte countOrd ered By: Dr. Wilks on 08-15-2022 Lymphocytes Auto (Unsp spec) [#/Vol] 1.15 10*3/uL 0.83-4.51 [facility] Basophil percentageOrdered B y: Dr. Wilks on 08-15-2022 Basophil percentage 103 mg/dL 74-106 [facility] Basophil percentage 140 mmol/L 136-145 [facility] Basophil percentage 4.4 mmol/L 3.5-5.1 [facility] Basophil percentage 109 mmol/L 98-107 [facility] Basophils (Bld) [#/Vol] 8.2 10*3/uL 4.4-11.0 [facility] Basophils (Bld) [#/Vol] 5.9 10*3/uL 2.0-7.7 [facility] Basophils/100 WBC (Bld) 0.9 % 0-1 [facility] Basophils/100 WBC (Bld) 72.1 % 47-70 [facility] Basophils/100 WBC (Bld) 4.3 % 0-5 [facility] Chloride [Moles/Vol] 109 mmol/L 98-107 [facility] Eosinophils/100 WBC (Bld) 4.3 % 0-5 [facility] Glucose [Mass/Vol] 103 mg/dL 74-106 [facility] Comment on above: Fasting Glucose resu lt from 100 to 125 mg/dL suggests IMPAIRED HOMEOSTASIS per A.D.A. criteria. Neutrophils (Bld) [#/Vol] 5.9 10*3/uL 2.0-7.7 [facility] Neutrophils/100 WBC (Bld) 72.1 % 47-70 [facility] Potassium [Moles/Vol] 4.4 mmol/L 3.5-5.1 [facility] Sodium [Moles/Vol] 140 mmol/L 136-145 [facility] WBC (Bld) [#/Vol] 8.2 10*3/uL 4.4-11.0 [facility] Blood erythrocytes count (nu mber/volume)Ordered By: Dr. Wilks on 08-15-2022 RBC (Bld) [#/Vol] 3.99 10*6/uL 4.2-5.4 [facility] Blood hemoglobin measurement (mass/volume)Ordered By: Dr. Wilks on 08-15-2022 Hemoglobin (Bld) [Mass/Vol] 11.5 g/dL 12.0-15.0 [facility] Blood lymphocytes/100 leukoc ytesOrdered By: Dr. Wilks on 08-15-2022 Lymphocytes/100 WBC (Bld) 14.1 % 19-41 [facility] Blood monocytes/100 leukocyt esOrdered By: Dr. Wilks on 08-15-2022 Monocytes/100 WBC (Bld) 8.4 % 0-10 [facility] Blood platelet mean volumeOr dered By: Dr. Wilks on 08-15-2022 Platelet mean volume (Bld) [Entitic vol] 10.5 fL 6.2-12.0 [facility] Determination of erythrocyte mean corpuscular volume (MCV)Ordered By: Dr. Wilks on 08-15-2022 MCV (RBC) [Entitic vol] 95.0 fL 81-99 [facility] Hematocrit Auto (Bld) [Volum e fraction]Ordered By: Dr. Wilks on 08-15-2022 Hematocrit (Bld) [Volume fraction] 37.9 % 37-47 [facility] - Chemistry and C hemistry - challengeOrdered By: Dr. Wilks on 08-15-2022 CO2 [Moles/Vol] 28.0 mmol/L 21.0-32.0 [facility] Urea nitrogen/Creatinine [Mass ratio] 25.9 mg/mg 10-20 [facility] - Hematology and Cell countsOrdered By: Dr. Wilks on 08-15-2022 Erythrocyte distribution width (RBC) [Entitic vol] 58.8 fL 35.1-43.9 [facility] Erythrocyte distribution width (RBC) [Ratio] 16.8 % 11.6-14.6 [facility] Immature granulocytes/100 WBC (Bld) 0.200 % 0.0-0.9 [facility] Comment on above: IG% - Immature Granu locytes (promyelocytes, myelocytes and metamyelocytes) > 1% indicates that a LEFT SHIFT is Present. MCH (RBC) [Entitic mass] 28.8 pg 27.0-32.0 [facility] Nucleated RBC/100 WBC (Bld) [Ratio] 0 % 0-5 [facility] MCHC Auto (RBC) [Mass/Vol]Or dered By: Dr. Wilks on 08-15-2022 MCHC (RBC) [Mass/Vol] 30.3 g/dL 32-36 [facility] No Panel InformationOrdered By: Dr. Wilks on 08-15-2022 Estimated GFR (MDRD) Amer 99 mL/min >60 [facility] Comment on above: GFR Calc Estimated GFR (MDRD) Non-Af Amer 82 mL/min >60 [facility] Comment on above: Non- GFR Calc 28.8 pg 27.0-32.0 [facility] 16.8 % 11.6-14.6 [facility] 58.8 fl 35.1-43.9 [facility] 0.200 % 0.0-0.9 [facility] 0 % 0-5 [facility] 82 mL/min >60 [facility] 99 mL/min >60 [facility] 25.9 RATIO 10-20 [facility] 28.0 mmol/L 21.0-32.0 [facility] Platelets bldOrdered By: Dr. Wilks on 08-15-2022 Platelets (Bld) [#/Vol] 282 10*3/uL 150-450 [facility] Serum or plasma calcium chay urement (mass/volume)Ordered By: Dr. Wilks on 08-15-2022 Calcium [Mass/Vol] 11.0 mg/dL 8.5-10.1 [facility] Serum or plasma creatinine m easurement (mass/volume)Ordered By: Dr. Wilks on 08-15-2022 Creatinine [Mass/Vol] 0.73 mg/dL 0.55-1.02 [facility] Comment on above: The validity of the calculated GFR & GFRAA in patients over 70 years has not been determined. Clinical correlation is essential. Serum or plasma urea nitroge n measurement (mass/volume)Ordered By: Dr. Wilks on 08-15-2022 Urea nitrogen [Mass/Vol] 19 mg/dL 7-18 [facility] Thin prep Papanicolaou smear with manual screeningOrdered By: Dr. Wilks on 08-15-2022 Thin prep Papanicolaou smear with manual screening 3 5-15 [facility] Absolute lymphocyte countOrd ered By: Dr. Wilks on 08-08-2022 Lymphocytes Auto (Unsp spec) [#/Vol] 1.54 10*3/uL 0.83-4.51 [facility] Basophil percentageOrdered B y: Dr. Wilks on 08-08-2022 Basophil percentage 112 mg/dL 74-106 [facility] Basophil percentage 140 mmol/L 136-145 [facility] Basophil percentage 4.3 mmol/L 3.5-5.1 [facility] Basophil percentage 109 mmol/L 98-107 [facility] Basophils (Bld) [#/Vol] 8.5 10*3/uL 4.4-11.0 [facility] Basophils (Bld) [#/Vol] 5.8 10*3/uL 2.0-7.7 [facility] Basophils/100 WBC (Bld) 1.1 % 0-1 [facility] Basophils/100 WBC (Bld) 67.9 % 47-70 [facility] Basophils/100 WBC (Bld) 4.5 % 0-5 [facility] Chloride [Moles/Vol] 109 mmol/L 98-107 [facility] Eosinophils/100 WBC (Bld) 4.5 % 0-5 [facility] Glucose [Mass/Vol] 112 mg/dL 74-106 [facility] Comment on above: Fasting Glucose resu lt from 100 to 125 mg/dL suggests IMPAIRED HOMEOSTASIS per A.D.A. criteria. Neutrophils (Bld) [#/Vol] 5.8 10*3/uL 2.0-7.7 [facility] Neutrophils/100 WBC (Bld) 67.9 % 47-70 [facility] Potassium [Moles/Vol] 4.3 mmol/L 3.5-5.1 [facility] Sodium [Moles/Vol] 140 mmol/L 136-145 [facility] WBC (Bld) [#/Vol] 8.5 10*3/uL 4.4-11.0 [facility] Blood erythrocytes count (nu mber/volume)Ordered By: Dr. Wilks on 08-08-2022 RBC (Bld) [#/Vol] 4.26 10*6/uL 4.2-5.4 [facility] Blood hemoglobin measurement (mass/volume)Ordered By: Dr. Wilks on 08-08-2022 Hemoglobin (Bld) [Mass/Vol] 12.3 g/dL 12.0-15.0 [facility] Blood lymphocytes/100 leukoc ytesOrdered By: Dr. Wilks on 08-08-2022 Lymphocytes/100 WBC (Bld) 18.1 % 19-41 [facility] Blood monocytes/100 leukocyt esOrdered By: Dr. Wilks on 08-08-2022 Monocytes/100 WBC (Bld) 8.2 % 0-10 [facility] Blood platelet mean volumeOr dered By: Dr. Wilks on 08-08-2022 Platelet mean volume (Bld) [Entitic vol] 10.7 fL 6.2-12.0 [facility] Determination of erythrocyte mean corpuscular volume (MCV)Ordered By: Dr. Wilks on 08-08-2022 MCV (RBC) [Entitic vol] 92.3 fL 81-99 [facility] Hematocrit Auto (Bld) [Volum e fraction]Ordered By: Dr. Wilks on 08-08-2022 Hematocrit (Bld) [Volume fraction] 39.3 % 37-47 [facility] - Chemistry and C hemistry - challengeOrdered By: Dr. Wilks on 08-08-2022 CO2 [Moles/Vol] 24.0 mmol/L 21.0-32.0 [facility] Urea nitrogen/Creatinine [Mass ratio] 20.1 mg/mg 10-20 [facility] - Hematology and Cell countsOrdered By: Dr. Wilks on 08-08-2022 Erythrocyte distribution width (RBC) [Entitic vol] 57.2 fL 35.1-43.9 [facility] Erythrocyte distribution width (RBC) [Ratio] 17.0 % 11.6-14.6 [facility] Immature granulocytes/100 WBC (Bld) 0.200 % 0.0-0.9 [facility] Comment on above: IG% - Immature Granu locytes (promyelocytes, myelocytes and metamyelocytes) > 1% indicates that a LEFT SHIFT is Present. MCH (RBC) [Entitic mass] 28.9 pg 27.0-32.0 [facility] Nucleated RBC/100 WBC (Bld) [Ratio] 0 % 0-5 [facility] MCHC Auto (RBC) [Mass/Vol]Or dered By: Dr. Wliks on 08-08-2022 MCHC (RBC) [Mass/Vol] 31.3 g/dL 32-36 [facility] No Panel InformationOrdered By: Dr. Wilks on 08-08-2022 Estimated GFR (MDRD) Amer 79 mL/min >60 [facility] Comment on above: GFR Calc Estimated GFR (MDRD) Non-Af Amer 65 mL/min >60 [facility] Comment on above: Non- GFR Calc 28.9 pg 27.0-32.0 [facility] 17.0 % 11.6-14.6 [facility] 57.2 fl 35.1-43.9 [facility] 0.200 % 0.0-0.9 [facility] 0 % 0-5 [facility] 65 mL/min >60 [facility] 79 mL/min >60 [facility] 20.1 RATIO 10-20 [facility] 24.0 mmol/L 21.0-32.0 [facility] Platelets bldOrdered By: Dr. Wilks on 08-08-2022 Platelets (Bld) [#/Vol] 334 10*3/uL 150-450 [facility] Serum or plasma calcium chay urement (mass/volume)Ordered By: Dr. Wilks on 08-08-2022 Calcium [Mass/Vol] 11.5 mg/dL 8.5-10.1 [facility] Serum or plasma creatinine m easurement (mass/volume)Ordered By: Dr. Wilks on 08-08-2022 Creatinine [Mass/Vol] 0.90 mg/dL 0.55-1.02 [facility] Comment on above: The validity of the calculated GFR & GFRAA in patients over 70 years has not been determined. Clinical correlation is essential. Serum or plasma urea nitroge n measurement (mass/volume)Ordered By: Dr. Wilks on 08-08-2022 Urea nitrogen [Mass/Vol] 18 mg/dL 7-18 [facility] Thin prep Papanicolaou smear with manual screeningOrdered By: Dr. Wilks on 08-08-2022 Thin prep Papanicolaou smear with manual screening 7 5-15 [facility] Absolute lymphocyte countOrd ered By: Dr. Wilks on 08-01-2022 Lymphocytes Auto (Unsp spec) [#/Vol] 0.96 10*3/uL 0.83-4.51 [facility] Basophil percentageOrdered B y: Dr. Wilks on 08-01-2022 Basophil percentage 108 mg/dL 74-106 [facility] Basophil percentage 138 mmol/L 136-145 [facility] Basophil percentage 4.1 mmol/L 3.5-5.1 [facility] Basophil percentage 107 mmol/L 98-107 [facility] Basophils (Bld) [#/Vol] 7.3 10*3/uL 4.4-11.0 [facility] Basophils (Bld) [#/Vol] 5.2 10*3/uL 2.0-7.7 [facility] Basophils/100 WBC (Bld) 1.0 % 0-1 [facility] Basophils/100 WBC (Bld) 71.4 % 47-70 [facility] Basophils/100 WBC (Bld) 5.2 % 0-5 [facility] Chloride [Moles/Vol] 107 mmol/L 98-107 [facility] Eosinophils/100 WBC (Bld) 5.2 % 0-5 [facility] Glucose [Mass/Vol] 108 mg/dL 74-106 [facility] Comment on above: Fasting Glucose resu lt from 100 to 125 mg/dL suggests IMPAIRED HOMEOSTASIS per A.D.A. criteria. Neutrophils (Bld) [#/Vol] 5.2 10*3/uL 2.0-7.7 [facility] Neutrophils/100 WBC (Bld) 71.4 % 47-70 [facility] Potassium [Moles/Vol] 4.1 mmol/L 3.5-5.1 [facility] Sodium [Moles/Vol] 138 mmol/L 136-145 [facility] WBC (Bld) [#/Vol] 7.3 10*3/uL 4.4-11.0 [facility] Blood erythrocytes count (nu mber/volume)Ordered By: Dr. Wilks on 08-01-2022 RBC (Bld) [#/Vol] 3.94 10*6/uL 4.2-5.4 [facility] Blood hemoglobin measurement (mass/volume)Ordered By: Dr. Wilks on 08-01-2022 Hemoglobin (Bld) [Mass/Vol] 11.3 g/dL 12.0-15.0 [facility] Blood lymphocytes/100 leukoc ytesOrdered By: Dr. Wilks on 08-01-2022 Lymphocytes/100 WBC (Bld) 13.2 % 19-41 [facility] Blood monocytes/100 leukocyt esOrdered By: Dr. Wilks on 08-01-2022 Monocytes/100 WBC (Bld) 8.8 % 0-10 [facility] Blood platelet mean volumeOr dered By: Dr. Wilks on 08-01-2022 Platelet mean volume (Bld) [Entitic vol] 10.9 fL 6.2-12.0 [facility] Determination of erythrocyte mean corpuscular volume (MCV)Ordered By: Dr. Wilks on 08-01-2022 MCV (RBC) [Entitic vol] 92.9 fL 81-99 [facility] Hematocrit Auto (Bld) [Volum e fraction]Ordered By: Dr. Wilks on 08-01-2022 Hematocrit (Bld) [Volume fraction] 36.6 % 37-47 [facility] - Chemistry and C hemistry - challengeOrdered By: Dr. Wilks on 08-01-2022 CO2 [Moles/Vol] 26.0 mmol/L 21.0-32.0 [facility] Urea nitrogen/Creatinine [Mass ratio] 25.4 mg/mg 10-20 [facility] - Hematology and Cell countsOrdered By: Dr. Wilks on 08-01-2022 Erythrocyte distribution width (RBC) [Entitic vol] 56.8 fL 35.1-43.9 [facility] Erythrocyte distribution width (RBC) [Ratio] 16.6 % 11.6-14.6 [facility] Immature granulocytes/100 WBC (Bld) 0.400 % 0.0-0.9 [facility] Comment on above: IG% - Immature Granu locytes (promyelocytes, myelocytes and metamyelocytes) > 1% indicates that a LEFT SHIFT is Present. MCH (RBC) [Entitic mass] 28.7 pg 27.0-32.0 [facility] Nucleated RBC/100 WBC (Bld) [Ratio] 0 % 0-5 [facility] MCHC Auto (RBC) [Mass/Vol]Or dered By: Dr. Wilks on 08-01-2022 MCHC (RBC) [Mass/Vol] 30.9 g/dL 32-36 [facility] No Panel InformationOrdered By: Dr. Wilks on 08-01-2022 Estimated GFR (MDRD) Amer 78 mL/min >60 [facility] Comment on above: GFR Calc Estimated GFR (MDRD) Non-Af Amer 65 mL/min >60 [facility] Comment on above: Non- GFR Calc 28.7 pg 27.0-32.0 [facility] 16.6 % 11.6-14.6 [facility] 56.8 fl 35.1-43.9 [facility] 0.400 % 0.0-0.9 [facility] 0 % 0-5 [facility] 65 mL/min >60 [facility] 78 mL/min >60 [facility] 25.4 RATIO 10-20 [facility] 26.0 mmol/L 21.0-32.0 [facility] Platelets bldOrdered By: Dr. Wilks on 08-01-2022 Platelets (Bld) [#/Vol] 313 10*3/uL 150-450 [facility] Serum or plasma calcium chay urement (mass/volume)Ordered By: Dr. Wilks on 08-01-2022 Calcium [Mass/Vol] 10.9 mg/dL 8.5-10.1 [facility] Serum or plasma creatinine m easurement (mass/volume)Ordered By: Dr. Wilks on 08-01-2022 Creatinine [Mass/Vol] 0.90 mg/dL 0.55-1.02 [facility] Comment on above: The validity of the calculated GFR & GFRAA in patients over 70 years has not been determined. Clinical correlation is essential. Serum or plasma urea nitroge n measurement (mass/volume)Ordered By: Dr. Wilks on 08-01-2022 Urea nitrogen [Mass/Vol] 23 mg/dL 7-18 [facility] Thin prep Papanicolaou smear with manual screeningOrdered By: Dr. Wilks on 08-01-2022 Thin prep Papanicolaou smear with manual screening 5 5-15 [facility] Absolute lymphocyte countOrd ered By: Dr. Wilks on 07-25-2022 Lymphocytes Auto (Unsp spec) [#/Vol] 1.60 10*3/uL 0.83-4.51 [facility] Basophil percentageOrdered B y: Dr. Wilks on 07-25-2022 Basophil percentage 105 mg/dL 74-106 [facility] Basophil percentage 139 mmol/L 136-145 [facility] Basophil percentage 4.1 mmol/L 3.5-5.1 [facility] Basophil percentage 107 mmol/L 98-107 [facility] Basophils (Bld) [#/Vol] 8.1 10*3/uL 4.4-11.0 [facility] Basophils (Bld) [#/Vol] 5.1 10*3/uL 2.0-7.7 [facility] Basophils/100 WBC (Bld) 1.0 % 0-1 [facility] Basophils/100 WBC (Bld) 62.0 % 47-70 [facility] Basophils/100 WBC (Bld) 6.9 % 0-5 [facility] Basophil percentageon 2021 Chloride [Moles/Vol] 107 mmol/L 98-107 [facility] Work Phone: Eosinophils/100 WBC (Bld) 6.9 % 0-5 [facility] Work Phone: Glucose [Mass/Vol] 105 mg/dL 74-106 [facility] Work Phone: Comment on above: Fasting Glucose resu lt from 100 to 125 mg/dL suggests IMPAIRED HOMEOSTASIS per A.D.A. criteria. Neutrophils (Bld) [#/Vol] 5.1 10*3/uL 2.0-7.7 [facility] Work Phone: Neutrophils/100 WBC (Bld) 62.0 % 47-70 [facility] Work Phone: Potassium [Moles/Vol] 4.1 mmol/L 3.5-5.1 [facility] Work Phone: Sodium [Moles/Vol] 139 mmol/L 136-145 [facility] Work Phone: WBC (Bld) [#/Vol] 8.1 10*3/uL 4.4-11.0 [facility] Work Phone: Blood erythrocytes count (nu mber/volume)Ordered By: Dr. Wilks on 07-25-2022 RBC (Bld) [#/Vol] 4.01 10*6/uL 4.2-5.4 [facility] Blood hemoglobin measurement (mass/volume)Ordered By: Dr. Wilks on 07-25-2022 Hemoglobin (Bld) [Mass/Vol] 11.8 g/dL 12.0-15.0 [facility] Blood lymphocytes/100 leukoc ytesOrdered By: Dr. Wilks on 07-25-2022 Lymphocytes/100 WBC (Bld) 19.7 % 19-41 [facility] Blood monocytes/100 leukocyt esOrdered By: Dr. Wilks on 07-25-2022 Monocytes/100 WBC (Bld) 10.0 % 0-10 [facility] Blood platelet mean volumeOr dered By: Dr. Wilks on 07-25-2022 Platelet mean volume (Bld) [Entitic vol] 10.5 fL 6.2-12.0 [facility] Determination of erythrocyte mean corpuscular volume (MCV)Ordered By: Dr. Wilks on 07-25-2022 MCV (RBC) [Entitic vol] 93.0 fL 81-99 [facility] Hematocrit Auto (Bld) [Volum e fraction]Ordered By: Dr. Wilks on 07-25-2022 Hematocrit (Bld) [Volume fraction] 37.3 % 37-47 [facility] Laboratory - Chemistry and C hemistry - challengeon 07-25-2022 CO2 [Moles/Vol] 27.0 mmol/L 21.0-32.0 [facility] Work Phone: Urea nitrogen/Creatinine [Mass ratio] 29.8 mg/mg 10-20 [facility] Work Phone: Laboratory - Hematology and Cell countson 07-25-2022 Erythrocyte distribution width (RBC) [Entitic vol] 55.9 fL 35.1-43.9 [facility] Work Phone: Erythrocyte distribution width (RBC) [Ratio] 16.5 % 11.6-14.6 [facility] Work Phone: Immature granulocytes/100 WBC (Bld) 0.400 % 0.0-0.9 [facility] Work Phone: Comment on above: IG% - Immature Granu locytes (promyelocytes, myelocytes and metamyelocytes) > 1% indicates that a LEFT SHIFT is Present. MCH (RBC) [Entitic mass] 29.4 pg 27.0-32.0 [facility] Work Phone: Nucleated RBC/100 WBC (Bld) [Ratio] 0 % 0-5 [facility] Work Phone: MCHC Auto (RBC) [Mass/Vol]Or dered By: Dr. Wilks on 07-25-2022 MCHC (RBC) [Mass/Vol] 31.6 g/dL 32-36 [facility] No Panel Informationon 07-25 Estimated GFR (MDRD) Amer 75 mL/min >60 [facility] Work Phone: Comment on above: GFR Calc Estimated GFR (MDRD) Non-Af Amer 62 mL/min >60 [facility] Work Phone: Comment on above: Non- GFR Calc No Panel InformationOrdered By: Dr. Wilks on 07-25-2022 29.4 pg 27.0-32.0 [facility] 16.5 % 11.6-14.6 [facility] 55.9 fl 35.1-43.9 [facility] 0.400 % 0.0-0.9 [facility] 0 % 0-5 [facility] 62 mL/min >60 [facility] 75 mL/min >60 [facility] 29.8 RATIO 10-20 [facility] 27.0 mmol/L 21.0-32.0 [facility] Platelets bldOrdered By: Dr. Wilks on 07-25-2022 Platelets (Bld) [#/Vol] 343 10*3/uL 150-450 [facility] Serum or plasma calcium chay urement (mass/volume)Ordered By: Dr. Wilks on 07-25-2022 Calcium [Mass/Vol] 11.2 mg/dL 8.5-10.1 [facility] Serum or plasma creatinine m easurement (mass/volume)Ordered By: Dr. Wilks on 07-25-2022 Creatinine [Mass/Vol] 0.94 mg/dL 0.55-1.02 [facility] Comment on above: The validity of the calculated GFR & GFRAA in patients over 70 years has not been determined. Clinical correlation is essential. Serum or plasma urea nitroge n measurement (mass/volume)Ordered By: Dr. Wilks on 07-25-2022 Urea nitrogen [Mass/Vol] 28 mg/dL 7-18 [facility] Thin prep Papanicolaou smear with manual screeningOrdered By: Dr. Wilks on 07-25-2022 Thin prep Papanicolaou smear with manual screening 5 5-15 [facility] Absolute lymphocyte countOrd ered By: Dr. Wilks on 07-18-2022 Lymphocytes Auto (Unsp spec) [#/Vol] 1.26 10*3/uL 0.83-4.51 [facility] Basophil percentageOrdered B y: Dr. Wilks on 07-18-2022 Basophil percentage 112 mg/dL 74-106 [facility] Basophil percentage 137 mmol/L 136-145 [facility] Basophil percentage 4.1 mmol/L 3.5-5.1 [facility] Basophil percentage 105 mmol/L 98-107 [facility] Basophils (Bld) [#/Vol] 7.3 10*3/uL 4.4-11.0 [facility] Basophils (Bld) [#/Vol] 4.9 10*3/uL 2.0-7.7 [facility] Basophils/100 WBC (Bld) 1.1 % 0-1 [facility] Basophils/100 WBC (Bld) 67.6 % 47-70 [facility] Basophils/100 WBC (Bld) 5.2 % 0-5 [facility] Basophil percentageon 2021 Chloride [Moles/Vol] 105 mmol/L 98-107 [facility] Work Phone: Eosinophils/100 WBC (Bld) 5.2 % 0-5 [facility] Work Phone: Glucose [Mass/Vol] 112 mg/dL 74-106 [facility] Work Phone: Comment on above: Fasting Glucose resu lt from 100 to 125 mg/dL suggests IMPAIRED HOMEOSTASIS per A.D.A. criteria. Neutrophils (Bld) [#/Vol] 4.9 10*3/uL 2.0-7.7 [facility] Work Phone: Neutrophils/100 WBC (Bld) 67.6 % 47-70 [facility] Work Phone: Potassium [Moles/Vol] 4.1 mmol/L 3.5-5.1 [facility] Work Phone: Sodium [Moles/Vol] 137 mmol/L 136-145 [facility] Work Phone: WBC (Bld) [#/Vol] 7.3 10*3/uL 4.4-11.0 [facility] Work Phone: Blood erythrocytes count (nu mber/volume)Ordered By: Dr. Wilks on 07-18-2022 RBC (Bld) [#/Vol] 3.86 10*6/uL 4.2-5.4 [facility] Blood hemoglobin measurement (mass/volume)Ordered By: Dr. Wilks on 07-18-2022 Hemoglobin (Bld) [Mass/Vol] 11.0 g/dL 12.0-15.0 [facility] Blood lymphocytes/100 leukoc ytesOrdered By: Dr. Wilks on 07-18-2022 Lymphocytes/100 WBC (Bld) 17.2 % 19-41 [facility] Blood monocytes/100 leukocyt esOrdered By: Dr. Wilks on 07-18-2022 Monocytes/100 WBC (Bld) 8.5 % 0-10 [facility] Blood platelet mean volumeOr dered By: Dr. Wilks on 07-18-2022 Platelet mean volume (Bld) [Entitic vol] 10.0 fL 6.2-12.0 [facility] Determination of erythrocyte mean corpuscular volume (MCV)Ordered By: Dr. Wilks on 07-18-2022 MCV (RBC) [Entitic vol] 93.0 fL 81-99 [facility] Hematocrit Auto (Bld) [Volum e fraction]Ordered By: Dr. Wilks on 07-18-2022 Hematocrit (Bld) [Volume fraction] 35.9 % 37-47 [facility] Laboratory - Chemistry and C hemistry - challengeon 07-18-2022 CO2 [Moles/Vol] 26.0 mmol/L 21.0-32.0 [facility] Work Phone: Urea nitrogen/Creatinine [Mass ratio] 16.4 mg/mg 10-20 [facility] Work Phone: Laboratory - Hematology and Cell countson 07-18-2022 Erythrocyte distribution width (RBC) [Entitic vol] 55.2 fL 35.1-43.9 [facility] Work Phone: Erythrocyte distribution width (RBC) [Ratio] 16.2 % 11.6-14.6 [facility] Work Phone: Immature granulocytes/100 WBC (Bld) 0.400 % 0.0-0.9 [facility] Work Phone: Comment on above: IG% - Immature Granu locytes (promyelocytes, myelocytes and metamyelocytes) > 1% indicates that a LEFT SHIFT is Present. MCH (RBC) [Entitic mass] 28.5 pg 27.0-32.0 [facility] Work Phone: Nucleated RBC/100 WBC (Bld) [Ratio] 0 % 0-5 [facility] Work Phone: MCHC Auto (RBC) [Mass/Vol]Or dered By: Dr. Wilks on 07-18-2022 MCHC (RBC) [Mass/Vol] 30.6 g/dL 32-36 [facility] No Panel Informationon 07-18 Estimated GFR (MDRD) Amer 77 mL/min >60 [facility] Work Phone: Comment on above: GFR Calc Estimated GFR (MDRD) Non-Af Amer 64 mL/min >60 [facility] Work Phone: Comment on above: Non- GFR Calc No Panel InformationOrdered By: Dr. Wilks on 07-18-2022 28.5 pg 27.0-32.0 [facility] 16.2 % 11.6-14.6 [facility] 55.2 fl 35.1-43.9 [facility] 0.400 % 0.0-0.9 [facility] 0 % 0-5 [facility] 64 mL/min >60 [facility] 77 mL/min >60 [facility] 16.4 RATIO 10-20 [facility] 26.0 mmol/L 21.0-32.0 [facility] Platelets bldOrdered By: Dr. Wilks on 07-18-2022 Platelets (Bld) [#/Vol] 373 10*3/uL 150-450 [facility] Serum or plasma calcium chay urement (mass/volume)Ordered By: Dr. Wilks on 07-18-2022 Calcium [Mass/Vol] 10.8 mg/dL 8.5-10.1 [facility] Serum or plasma creatinine m easurement (mass/volume)Ordered By: Dr. Wilks on 07-18-2022 Creatinine [Mass/Vol] 0.91 mg/dL 0.55-1.02 [facility] Comment on above: The validity of the calculated GFR & GFRAA in patients over 70 years has not been determined. Clinical correlation is essential. Serum or plasma urea nitroge n measurement (mass/volume)Ordered By: Dr. Wilks on 07-18-2022 Urea nitrogen [Mass/Vol] 15 mg/dL 7-18 [facility] Thin prep Papanicolaou smear with manual screeningOrdered By: Dr. Wilks on 07-18-2022 Thin prep Papanicolaou smear with manual screening 6 5-15 [facility] Absolute lymphocyte countOrd ered By: Dr. Wilks on 07-11-2022 Lymphocytes Auto (Unsp spec) [#/Vol] 1.11 10*3/uL 0.83-4.51 [facility] Basophil percentageOrdered B y: Dr. Wilks on 07-11-2022 Basophil percentage 100 mg/dL 74-106 [facility] Basophil percentage 142 mmol/L 136-145 [facility] Basophil percentage 3.6 mmol/L 3.5-5.1 [facility] Basophil percentage 114 mmol/L 98-107 [facility] Basophils (Bld) [#/Vol] 6.9 10*3/uL 4.4-11.0 [facility] Basophils (Bld) [#/Vol] 4.8 10*3/uL 2.0-7.7 [facility] Basophils/100 WBC (Bld) 0.7 % 0-1 [facility] Basophils/100 WBC (Bld) 69.7 % 47-70 [facility] Basophils/100 WBC (Bld) 4.2 % 0-5 [facility] Basophil percentageon 2021 Chloride [Moles/Vol] 114 mmol/L 98-107 [facility] Work Phone: Eosinophils/100 WBC (Bld) 4.2 % 0-5 [facility] Work Phone: Glucose [Mass/Vol] 100 mg/dL 74-106 [facility] Work Phone: Comment on above: Fasting Glucose resu lt from 100 to 125 mg/dL suggests IMPAIRED HOMEOSTASIS per A.D.A. criteria. Neutrophils (Bld) [#/Vol] 4.8 10*3/uL 2.0-7.7 [facility] Work Phone: Neutrophils/100 WBC (Bld) 69.7 % 47-70 [facility] Work Phone: Potassium [Moles/Vol] 3.6 mmol/L 3.5-5.1 [facility] Work Phone: Sodium [Moles/Vol] 142 mmol/L 136-145 [facility] Work Phone: WBC (Bld) [#/Vol] 6.9 10*3/uL 4.4-11.0 [facility] Work Phone: Blood erythrocytes count (nu mber/volume)Ordered By: Dr. Wilks on 07-11-2022 RBC (Bld) [#/Vol] 3.30 10*6/uL 4.2-5.4 [facility] Blood hemoglobin measurement (mass/volume)Ordered By: Dr. Wilks on 07-11-2022 Hemoglobin (Bld) [Mass/Vol] 9.7 g/dL 12.0-15.0 [facility] Blood lymphocytes/100 leukoc ytesOrdered By: Dr. Wilks on 07-11-2022 Lymphocytes/100 WBC (Bld) 16.1 % 19-41 [facility] Blood monocytes/100 leukocyt esOrdered By: Dr. Wilks on 07-11-2022 Monocytes/100 WBC (Bld) 8.9 % 0-10 [facility] Blood platelet mean volumeOr dered By: Dr. Wilks on 07-11-2022 Platelet mean volume (Bld) [Entitic vol] 10.0 fL 6.2-12.0 [facility] Determination of erythrocyte mean corpuscular volume (MCV)Ordered By: Dr. Wilks on 07-11-2022 MCV (RBC) [Entitic vol] 94.2 fL 81-99 [facility] Hematocrit Auto (Bld) [Volum e fraction]Ordered By: Dr. Wilks on 07-11-2022 Hematocrit (Bld) [Volume fraction] 31.1 % 37-47 [facility] Laboratory - Chemistry and C hemistry - challengeon 07-11-2022 CO2 [Moles/Vol] 26.0 mmol/L 21.0-32.0 [facility] Work Phone: Urea nitrogen/Creatinine [Mass ratio] 10.1 mg/mg 10-20 [facility] Work Phone: Laboratory - Hematology and Cell countson 07-11-2022 Erythrocyte distribution width (RBC) [Entitic vol] 54.6 fL 35.1-43.9 [facility] Work Phone: Erythrocyte distribution width (RBC) [Ratio] 15.9 % 11.6-14.6 [facility] Work Phone: Immature granulocytes/100 WBC (Bld) 0.400 % 0.0-0.9 [facility] Work Phone: Comment on above: IG% - Immature Granu locytes (promyelocytes, myelocytes and metamyelocytes) > 1% indicates that a LEFT SHIFT is Present. MCH (RBC) [Entitic mass] 29.4 pg 27.0-32.0 [facility] Work Phone: Nucleated RBC/100 WBC (Bld) [Ratio] 0 % 0-5 [facility] Work Phone: MCHC Auto (RBC) [Mass/Vol]Or dered By: Dr. Wilks on 07-11-2022 MCHC (RBC) [Mass/Vol] 31.2 g/dL 32-36 [facility] No Panel Informationon 07-11 Estimated GFR (MDRD) Amer 126 mL/min >60 [facility] Work Phone: Comment on above: GFR Calc Estimated GFR (MDRD) Non-Af Amer 105 mL/min >60 [facility] Work Phone: Comment on above: Non- GFR Calc No Panel InformationOrdered By: Dr. Wilks on 07-11-2022 29.4 pg 27.0-32.0 [facility] 15.9 % 11.6-14.6 [facility] 54.6 fl 35.1-43.9 [facility] 0.400 % 0.0-0.9 [facility] 0 % 0-5 [facility] 105 mL/min >60 [facility] 126 mL/min >60 [facility] 10.1 RATIO 10-20 [facility] 26.0 mmol/L 21.0-32.0 [facility] Platelets bldOrdered By: Dr. Wilks on 07-11-2022 Platelets (Bld) [#/Vol] 325 10*3/uL 150-450 [facility] Serum or plasma calcium chay urement (mass/volume)Ordered By: Dr. Wilks on 07-11-2022 Calcium [Mass/Vol] 10.1 mg/dL 8.5-10.1 [facility] Serum or plasma creatinine m easurement (mass/volume)Ordered By: Dr. Wilks on 07-11-2022 Creatinine [Mass/Vol] 0.60 mg/dL 0.55-1.02 [facility] Comment on above: The validity of the calculated GFR & GFRAA in patients over 70 years has not been determined. Clinical correlation is essential. Serum or plasma urea nitroge n measurement (mass/volume)Ordered By: Dr. Wilks on 07-11-2022 Urea nitrogen [Mass/Vol] 6 mg/dL 7-18 [facility] Thin prep Papanicolaou smear with manual screeningOrdered By: Dr. Wilks on 07-11-2022 Thin prep Papanicolaou smear with manual screening 2 5-15 [facility] Absolute lymphocyte countOrd ered By: Dr. Issa on 07-10-2022 Lymphocytes Auto (Unsp spec) [#/Vol] 1.64 10*3/uL 0.83-4.51 [facility] Basophil percentageOrdered B y: Dr. Issa on 07-10-2022 Basophil percentage 78 mg/dL 74-106 [facility] Basophil percentage 6.4 g/dL 6.4-8.2 [facility] Basophil percentage 0.30 mg/dL 0.20-1.00 [facility] Basophil percentage 145 mmol/L 136-145 [facility] Basophil percentage 3.5 mmol/L 3.5-5.1 [facility] Basophil percentage 116 mmol/L 98-107 [facility] Basophils (Bld) [#/Vol] 6.5 10*3/uL 4.4-11.0 [facility] Basophils (Bld) [#/Vol] 3.8 10*3/uL 2.0-7.7 [facility] Basophils/100 WBC (Bld) 0.8 % 0-1 [facility] Basophils/100 WBC (Bld) 58.0 % 47-70 [facility] Basophils/100 WBC (Bld) 4.9 % 0-5 [facility] Basophil percentageon 2021 Bilirubin [Mass/Vol] 0.30 mg/dL 0.20-1.00 [facility] Work Phone: Comment on above: For patients on eltr ombopag therapy, use of Dimension [place] TBIL is not recommended. Chloride [Moles/Vol] 116 mmol/L 98-107 [facility] Work Phone: Eosinophils/100 WBC (Bld) 4.9 % 0-5 [facility] Work Phone: Glucose [Mass/Vol] 78 mg/dL 74-106 [facility] Work Phone: Neutrophils (Bld) [#/Vol] 3.8 10*3/uL 2.0-7.7 [facility] Work Phone: Neutrophils/100 WBC (Bld) 58.0 % 47-70 [facility] Work Phone: Potassium [Moles/Vol] 3.5 mmol/L 3.5-5.1 [facility] Work Phone: Protein [Mass/Vol] 6.4 g/dL 6.4-8.2 [facility] Work Phone: Sodium [Moles/Vol] 145 mmol/L 136-145 [facility] Work Phone: WBC (Bld) [#/Vol] 6.5 10*3/uL 4.4-11.0 [facility] Work Phone: Blood erythrocytes count (nu mber/volume)Ordered By: Dr. Issa on 07-10-2022 RBC (Bld) [#/Vol] 3.20 10*6/uL 4.2-5.4 [facility] Blood hemoglobin measurement (mass/volume)Ordered By: Dr. Issa on 07-10-2022 Hemoglobin (Bld) [Mass/Vol] 9.4 g/dL 12.0-15.0 [facility] Blood lymphocytes/100 leukoc ytesOrdered By: Dr. Issa on 07-10-2022 Lymphocytes/100 WBC (Bld) 25.2 % 19-41 [facility] Blood monocytes/100 leukocyt esOrdered By: Dr. Issa on 07-10-2022 Monocytes/100 WBC (Bld) 10.6 % 0-10 [facility] Blood platelet mean volumeOr dered By: Dr. Issa on 07-10-2022 Platelet mean volume (Bld) [Entitic vol] 9.7 fL 6.2-12.0 [facility] COVID-19 virus antigen assay Ordered By: Dr. Marti on 07-10-2022 SARS-CoV-2 (COVID-19) Ag IA.rapid Ql (Resp) [facility] Determination of erythrocyte mean corpuscular volume (MCV)Ordered By: Dr. Issa on 07-10-2022 MCV (RBC) [Entitic vol] 93.8 fL 81-99 [facility] Hematocrit Auto (Bld) [Volum e fraction]Ordered By: Dr. Issa on 07-10-2022 Hematocrit (Bld) [Volume fraction] 30.0 % 37-47 [facility] Laboratory - Chemistry and C hemistry - challengeon 07-10-2022 ALP [Catalytic activity/Vol] 51 U/L 45-117 [facility] Work Phone: ALT [Catalytic activity/Vol] 14 U/L 13-56 [facility] Work Phone: CO2 [Moles/Vol] 25.0 mmol/L 21.0-32.0 [facility] Work Phone: Globulin (S) [Mass/Vol] 4.0 g/dL 2.2-4.2 [facility] Work Phone: Urea nitrogen/Creatinine [Mass ratio] 10.3 mg/mg 10-20 [facility] Work Phone: Laboratory - Hematology and Cell countson 07-10-2022 Erythrocyte distribution width (RBC) [Entitic vol] 54.3 fL 35.1-43.9 [facility] Work Phone: Erythrocyte distribution width (RBC) [Ratio] 15.8 % 11.6-14.6 [facility] Work Phone: Immature granulocytes/100 WBC (Bld) 0.500 % 0.0-0.9 [facility] Work Phone: Comment on above: IG% - Immature Granu locytes (promyelocytes, myelocytes and metamyelocytes) > 1% indicates that a LEFT SHIFT is Present. MCH (RBC) [Entitic mass] 29.4 pg 27.0-32.0 [facility] Work Phone: Nucleated RBC/100 WBC (Bld) [Ratio] 0 % 0-5 [facility] Work Phone: MCHC Auto (RBC) [Mass/Vol]Or dered By: Dr. Issa on 07-10-2022 MCHC (RBC) [Mass/Vol] 31.3 g/dL 32-36 [facility] No Panel Informationon 07-10 Estimated Creatinine Clearance Calc 52.64 ml/min [facility] Work Phone: Estimated GFR (MDRD) Amer 109 mL/min >60 [facility] Work Phone: Comment on above: GFR Calc Estimated GFR (MDRD) Non-Af Amer 90 mL/min >60 [facility] Work Phone: Comment on above: Non- GFR Calc No Panel InformationOrdered By: Dr. Issa on 07-10-2022 29.4 pg 27.0-32.0 [facility] 15.8 % 11.6-14.6 [facility] 54.3 fl 35.1-43.9 [facility] 0.500 % 0.0-0.9 [facility] 0 % 0-5 [facility] 90 mL/min >60 [facility] 109 mL/min >60 [facility] 52.64 ml/min [facility] 10.3 RATIO 10-20 [facility] 4.0 g/dL 2.2-4.2 [facility] 51 U/L 45-117 [facility] 14 U/L 13-56 [facility] 25.0 mmol/L 21.0-32.0 [facility] Platelets bldOrdered By: Dr. Issa on 07-10-2022 Platelets (Bld) [#/Vol] 303 10*3/uL 150-450 [facility] Serum or plasma albumin chay urement (mass/volume)Ordered By: Dr. Issa on 07-10-2022 Albumin [Mass/Vol] 2.4 g/dL 3.2-5.0 [facility] Serum or plasma albumin/glob ulin mass ratioOrdered By: Dr. Issa on 07-10-2022 Albumin/Globulin [Mass ratio] 0.6 {ratio} 0.9-2.4 [facility] Serum or plasma calcium chay urement (mass/volume)Ordered By: Dr. Issa on 07-10-2022 Calcium [Mass/Vol] 9.7 mg/dL 8.5-10.1 [facility] Serum or plasma creatinine m easurement (mass/volume)Ordered By: Dr. Issa on 07-10-2022 Creatinine [Mass/Vol] 0.68 mg/dL 0.55-1.02 [facility] Comment on above: The validity of the calculated GFR & GFRAA in patients over 70 years has not been determined. Clinical correlation is essential. Serum or plasma urea nitroge n measurement (mass/volume)Ordered By: Dr. Issa on 07-10-2022 Urea nitrogen [Mass/Vol] 7 mg/dL 7-18 [facility] Thin prep Papanicolaou smear with manual screeningOrdered By: Dr. Issa on 07-10-2022 Thin prep Papanicolaou smear with manual screening 11 U/L 15-37 [facility] Thin prep Papanicolaou smear with manual screening 4 5-15 [facility] Absolute lymphocyte counton 07-08-2022 Lymphocytes Auto (Unsp spec) [#/Vol] 1.16 10*3/uL 0.83-4.51 [facility] Work Phone: Basophil percentageon 2021 Basophils/100 WBC (Bld) 0.8 % 0-1 [facility] Work Phone: Bilirubin [Mass/Vol] 0.20 mg/dL 0.20-1.00 [facility] Work Phone: Comment on above: For patients on eltr ombopag therapy, use of Dimension [place] TBIL is not recommended. Chloride [Moles/Vol] 107 mmol/L 98-107 [facility] Work Phone: Eosinophils/100 WBC (Bld) 2.6 % 0-5 [facility] Work Phone: Glucose [Mass/Vol] 90 mg/dL 74-106 [facility] Work Phone: Neutrophils (Bld) [#/Vol] 5.8 10*3/uL 2.0-7.7 [facility] Work Phone: Neutrophils/100 WBC (Bld) 73.1 % 47-70 [facility] Work Phone: Potassium [Moles/Vol] 4.1 mmol/L 3.5-5.1 [facility] Work Phone: Protein [Mass/Vol] 7.5 g/dL 6.4-8.2 [facility] Work Phone: Sodium [Moles/Vol] 139 mmol/L 136-145 [facility] Work Phone: WBC (Bld) [#/Vol] 8.0 10*3/uL 4.4-11.0 [facility] Work Phone: Blood erythrocytes count (nu mber/volume)on 07-08-2022 RBC (Bld) [#/Vol] 3.75 10*6/uL 4.2-5.4 [facility]: Blood hemoglobin measurement (mass/volume)on 07-08-2022 Hemoglobin (Bld) [Mass/Vol] 10.7 g/dL 12.0-15.0 [facility] Work Phone: Blood lymphocytes/100 leukoc yteson 07-08-2022 Lymphocytes/100 WBC (Bld) 14.5 % 19-41 [facility] Work Phone: Blood monocytes/100 leukocyt eson 07-08-2022 Monocytes/100 WBC (Bld) 8.6 % 0-10 [facility] Work Phone: Blood platelet mean volumeon 07-08-2022 Platelet mean volume (Bld) [Entitic vol] 9.6 fL 6.2-12.0 [facility] Work Phone: Determination of erythrocyte mean corpuscular volume (MCV)on 07-08-2022 MCV (RBC) [Entitic vol] 93.1 fL 81-99 [facility] Work Phone: Hematocrit Auto (Bld) [Volum e fraction]on 07-08-2022 Hematocrit (Bld) [Volume fraction] 34.9 % 37-47 [facility] Work Phone: Laboratory - Chemistry and C hemistry - challengeon 07-08-2022 ALP [Catalytic activity/Vol] 63 U/L 45-117 [facility] Work Phone: ALT [Catalytic activity/Vol] 17 U/L 13-56 [facility] Work Phone: CO2 [Moles/Vol] 26.0 mmol/L 21.0-32.0 [facility] Work Phone: Globulin (S) [Mass/Vol] 4.8 g/dL 2.2-4.2 [facility] Work Phone: Urea nitrogen/Creatinine [Mass ratio] 22.0 mg/mg 10-20 [facility] Work Phone: Laboratory - Hematology and Cell countson 07-08-2022 Erythrocyte distribution width (RBC) [Entitic vol] 53.6 fL 35.1-43.9 [facility] Work Phone: Erythrocyte distribution width (RBC) [Ratio] 15.7 % 11.6-14.6 [facility] Work Phone: Immature granulocytes/100 WBC (Bld) 0.400 % 0.0-0.9 [facility] Work Phone: Comment on above: IG% - Immature Granu locytes (promyelocytes, myelocytes and metamyelocytes) > 1% indicates that a LEFT SHIFT is Present. MCH (RBC) [Entitic mass] 28.5 pg 27.0-32.0 [facility] Work Phone: Nucleated RBC/100 WBC (Bld) [Ratio] 0 % 0-5 [facility] Work Phone: MCHC Auto (RBC) [Mass/Vol]on 07-08-2022 MCHC (RBC) [Mass/Vol] 30.7 g/dL 32-36 [facility] Work Phone: No Panel Informationon 07-08 Estimated Creatinine Clearance Calc 57.09 ml/min [facility] Work Phone: Estimated GFR (MDRD) Amer 94 mL/min >60 [facility] Work Phone: Comment on above: GFR Calc Estimated GFR (MDRD) Non-Af Amer 77 mL/min >60 [facility] Work Phone: Comment on above: Non- GFR Calc Platelets bldon 07-08-2022 Platelets (Bld) [#/Vol] 356 10*3/uL 150-450 [facility] Work Phone: Serum or plasma albumin chay urement (mass/volume)on 07-08-2022 Albumin [Mass/Vol] 2.7 g/dL 3.2-5.0 [facility] Work Phone: Serum or plasma albumin/glob ulin mass ratioon 07-08-2022 Albumin/Globulin [Mass ratio] 0.6 {ratio} 0.9-2.4 [facility] Work Phone: Serum or plasma calcium chay urement (mass/volume)on 07-08-2022 Calcium [Mass/Vol] 10.5 mg/dL 8.5-10.1 [facility]: Serum or plasma creatinine m easurement (mass/volume)on 07-08-2022 Creatinine [Mass/Vol] 0.77 mg/dL 0.55-1.02 [facility] Work Phone: Comment on above: The validity of the calculated GFR & GFRAA in patients over 70 years has not been determined. Clinical correlation is essential. Serum or plasma urea nitroge n measurement (mass/volume)on 07-08-2022 Urea nitrogen [Mass/Vol] 17 mg/dL 7-18 [facility] Work Phone: Thin prep Papanicolaou smear with manual screeningon 07-08-2022 Thin prep Papanicolaou smear with manual screening 9 U/L 15-37 [facility] Work Phone: Thin prep Papanicolaou smear with manual screening 6 5-15 [facility] Work Phone: Absolute lymphocyte countOrd ered By: Dr. Wilks on 07-03-2022 Lymphocytes Auto (Unsp spec) [#/Vol] 1.36 10*3/uL 0.83-4.51 [facility] Basophil percentageOrdered B y: Dr. Wilks on 07-03-2022 Basophil percentage 105 mg/dL 74-106 [facility] Basophil percentage 136 mmol/L 136-145 [facility] Basophil percentage 4.2 mmol/L 3.5-5.1 [facility] Basophil percentage 104 mmol/L 98-107 [facility] Basophils (Bld) [#/Vol] 10.6 10*3/uL 4.4-11.0 [facility] Basophils (Bld) [#/Vol] 7.9 10*3/uL 2.0-7.7 [facility] Basophils/100 WBC (Bld) 0.7 % 0-1 [facility] Basophils/100 WBC (Bld) 74.6 % 47-70 [facility] Basophils/100 WBC (Bld) 2.6 % 0-5 [facility] Basophil percentageon 2021 Chloride [Moles/Vol] 104 mmol/L 98-107 [facility] Work Phone: Eosinophils/100 WBC (Bld) 2.6 % 0-5 [facility] Work Phone: Glucose [Mass/Vol] 105 mg/dL 74-106 [facility] Work Phone: Comment on above: Fasting Glucose resu lt from 100 to 125 mg/dL suggests IMPAIRED HOMEOSTASIS per A.D.A. criteria. Neutrophils (Bld) [#/Vol] 7.9 10*3/uL 2.0-7.7 [facility] Work Phone: Neutrophils/100 WBC (Bld) 74.6 % 47-70 [facility] Work Phone: Potassium [Moles/Vol] 4.2 mmol/L 3.5-5.1 [facility] Work Phone: Sodium [Moles/Vol] 136 mmol/L 136-145 [facility] Work Phone: WBC (Bld) [#/Vol] 10.6 10*3/uL 4.4-11.0 [facility] Work Phone: Blood erythrocytes count (nu mber/volume)Ordered By: Dr. Wilks on 07-03-2022 RBC (Bld) [#/Vol] 3.65 10*6/uL 4.2-5.4 [facility] Blood hemoglobin measurement (mass/volume)Ordered By: Dr. Wilks on 07-03-2022 Hemoglobin (Bld) [Mass/Vol] 10.6 g/dL 12.0-15.0 [facility] Blood lymphocytes/100 leukoc ytesOrdered By: Dr. Wilks on 07-03-2022 Lymphocytes/100 WBC (Bld) 12.8 % 19-41 [facility] Blood monocytes/100 leukocyt esOrdered By: Dr. Wilks on 07-03-2022 Monocytes/100 WBC (Bld) 8.3 % 0-10 [facility] Blood platelet mean volumeOr dered By: Dr. Wilks on 07-03-2022 Platelet mean volume (Bld) [Entitic vol] 10.5 fL 6.2-12.0 [facility] Determination of erythrocyte mean corpuscular volume (MCV)Ordered By: Dr. Wilks on 07-03-2022 MCV (RBC) [Entitic vol] 92.6 fL 81-99 [facility] Hematocrit Auto (Bld) [Volum e fraction]Ordered By: Dr. Wilks on 07-03-2022 Hematocrit (Bld) [Volume fraction] 33.8 % 37-47 [facility] Laboratory - Chemistry and C hemistry - challengeon 07-03-2022 CO2 [Moles/Vol] 25.0 mmol/L 21.0-32.0 [facility] Work Phone: Magnesium [Mass/Vol] 2.6 mg/dL 1.6-2.6 [facility] Work Phone: Urea nitrogen/Creatinine [Mass ratio] 19.8 mg/mg 10-20 [facility] Work Phone: Laboratory - Hematology and Cell countson 07-03-2022 Erythrocyte distribution width (RBC) [Entitic vol] 54.2 fL 35.1-43.9 [facility] Work Phone: Erythrocyte distribution width (RBC) [Ratio] 15.9 % 11.6-14.6 [facility] Work Phone: Immature granulocytes/100 WBC (Bld) 1.000 % 0.0-0.9 [facility] Work Phone: Comment on above: IG% - Immature Granu locytes (promyelocytes, myelocytes and metamyelocytes) > 1% indicates that a LEFT SHIFT is Present. MCH (RBC) [Entitic mass] 29.0 pg 27.0-32.0 [facility] Work Phone: Nucleated RBC/100 WBC (Bld) [Ratio] 0 % 0-5 [facility] Work Phone: MCHC Auto (RBC) [Mass/Vol]Or dered By: Dr. Wilks on 07-03-2022 MCHC (RBC) [Mass/Vol] 31.4 g/dL 32-36 [facility] No Panel Informationon 07-03 Estimated GFR (MDRD) Amer 83 mL/min >60 [facility] Work Phone: Comment on above: GFR Calc Estimated GFR (MDRD) Non-Af Amer 68 mL/min >60 [facility] Work Phone: Comment on above: Non- GFR Calc No Panel InformationOrdered By: Dr. Wilks on 07-03-2022 29.0 pg 27.0-32.0 [facility] 15.9 % 11.6-14.6 [facility] 54.2 fl 35.1-43.9 [facility] 1.000 % 0.0-0.9 [facility] 0 % 0-5 [facility] 68 mL/min >60 [facility] 83 mL/min >60 [facility] 19.8 RATIO 10-20 [facility] 2.6 mg/dL 1.6-2.6 [facility] 25.0 mmol/L 21.0-32.0 [facility] Platelets bldOrdered By: Dr. Wilks on 07-03-2022 Platelets (Bld) [#/Vol] 323 10*3/uL 150-450 [facility] Serum or plasma C reactive p rotein measurement (mass/volume)Ordered By: Dr. Wilks on 07-03-2022 CRP [Mass/Vol] 72.90 mg/L 0.0-3.0 [facility] Comment on above: C-Reactive Protein ( CRP) provides useful information for thediagnosis, therapy and monitoring of inflammatory processesand associated diseases. For the evaluation of Relative Riskfor Cardiovascular Disease, a High Sensitivity CRP (HSCRP)should be ordered. Serum or plasma calcium chay urement (mass/volume)Ordered By: Dr. Wilks on 07-03-2022 Calcium [Mass/Vol] 10.8 mg/dL 8.5-10.1 [facility] Serum or plasma creatinine m easurement (mass/volume)Ordered By: Dr. Wilks on 07-03-2022 Creatinine [Mass/Vol] 0.86 mg/dL 0.55-1.02 [facility] Comment on above: The validity of the calculated GFR & GFRAA in patients over 70 years has not been determined. Clinical correlation is essential. Serum or plasma urea nitroge n measurement (mass/volume)Ordered By: Dr. Wilks on 07-03-2022 Urea nitrogen [Mass/Vol] 17 mg/dL 7-18 [facility] Thin prep Papanicolaou smear with manual screeningOrdered By: Dr. Wilks on 07-03-2022 Thin prep Papanicolaou smear with manual screening 7 5-15 [facility] Absolute lymphocyte countOrd ered By: Dr. Baron on 06-29-2022 Lymphocytes Auto (Unsp spec) [#/Vol] 1.44 10*3/uL 0.83-4.51 [facility] Basophil percentageOrdered B y: Dr. Baron on 06-29-2022 Basophils (Bld) [#/Vol] 13.9 10*3/uL 4.4-11.0 [facility] Basophils (Bld) [#/Vol] 10.7 10*3/uL 2.0-7.7 [facility] Basophils/100 WBC (Bld) 0.5 % 0-1 [facility] Basophils/100 WBC (Bld) 77.5 % 47-70 [facility] Basophils/100 WBC (Bld) 2.5 % 0-5 [facility] Basophil percentageon 2021 Eosinophils/100 WBC (Bld) 2.5 % 0-5 [facility] Work Phone: Neutrophils (Bld) [#/Vol] 10.7 10*3/uL 2.0-7.7 [facility] Work Phone: Neutrophils/100 WBC (Bld) 77.5 % 47-70 [facility] Work Phone: WBC (Bld) [#/Vol] 13.9 10*3/uL 4.4-11.0 [facility] Work Phone: Blood erythrocytes count (nu mber/volume)Ordered By: Dr. Baron on 06-29-2022 RBC (Bld) [#/Vol] 3.73 10*6/uL 4.2-5.4 [facility] Blood hemoglobin measurement (mass/volume)Ordered By: Dr. Baron on 06-29-2022 Hemoglobin (Bld) [Mass/Vol] 11.2 g/dL 12.0-15.0 [facility] Blood lymphocytes/100 leukoc ytesOrdered By: Dr. Baron on 06-29-2022 Lymphocytes/100 WBC (Bld) 10.4 % 19-41 [facility] Blood monocytes/100 leukocyt esOrdered By: Dr. Baron on 06-29-2022 Monocytes/100 WBC (Bld) 7.1 % 0-10 [facility] Blood platelet mean volumeOr dered By: Dr. Baron on 06-29-2022 Platelet mean volume (Bld) [Entitic vol] 9.9 fL 6.2-12.0 [facility] Determination of erythrocyte mean corpuscular volume (MCV)Ordered By: Dr. Baron on 06-29-2022 MCV (RBC) [Entitic vol] 92.0 fL 81-99 [facility] Hematocrit Auto (Bld) [Volum e fraction]Ordered By: Dr. Baron on 06-29-2022 Hematocrit (Bld) [Volume fraction] 34.3 % 37-47 [facility] Laboratory - Hematology and Cell countson 06-29-2022 Erythrocyte distribution width (RBC) [Entitic vol] 51.9 fL 35.1-43.9 [facility] Work Phone: Erythrocyte distribution width (RBC) [Ratio] 15.6 % 11.6-14.6 [facility] Work Phone: Immature granulocytes/100 WBC (Bld) 2.000 % 0.0-0.9 [facility] Work Phone: Comment on above: IG% - Immature Granu locytes (promyelocytes, myelocytes and metamyelocytes) > 1% indicates that a LEFT SHIFT is Present. MCH (RBC) [Entitic mass] 30.0 pg 27.0-32.0 [facility] Work Phone: Nucleated RBC/100 WBC (Bld) [Ratio] 0 % 0-5 [facility] Work Phone: MCHC Auto (RBC) [Mass/Vol]Or dered By: Dr. Baron on 06-29-2022 MCHC (RBC) [Mass/Vol] 32.7 g/dL 32-36 [facility] Comment on above: Delta: 31.1 on 06/26 No Panel InformationOrdered By: Dr. Barno on 06-29-2022 30.0 pg 27.0-32.0 [facility] 15.6 % 11.6-14.6 [facility] 51.9 fl 35.1-43.9 [facility] 2.000 % 0.0-0.9 [facility] 0 % 0-5 [facility] Platelets bldOrdered By: Dr. Baron on 06-29-2022 Platelets (Bld) [#/Vol] 311 10*3/uL 150-450 [facility] Absolute lymphocyte countOrd ered By: Dr. Wilks on 06-26-2022 Lymphocytes Auto (Unsp spec) [#/Vol] 1.66 10*3/uL 0.83-4.51 [facility] Basophil percentageOrdered B y: Dr. Wilks on 06-26-2022 Basophil percentage 96 mg/dL 74-106 [facility] Basophil percentage 140 mmol/L 136-145 [facility] Basophil percentage 4.1 mmol/L 3.5-5.1 [facility] Basophil percentage 108 mmol/L 98-107 [facility] Basophils (Bld) [#/Vol] 8.6 10*3/uL 4.4-11.0 [facility] Basophils (Bld) [#/Vol] 5.7 10*3/uL 2.0-7.7 [facility] Basophils/100 WBC (Bld) 0.5 % 0-1 [facility] Basophils/100 WBC (Bld) 66.3 % 47-70 [facility] Basophils/100 WBC (Bld) 4.5 % 0-5 [facility] Basophil percentageon 2021 Chloride [Moles/Vol] 108 mmol/L 98-107 [facility] Work Phone: Eosinophils/100 WBC (Bld) 4.5 % 0-5 [facility] Work Phone: Glucose [Mass/Vol] 96 mg/dL 74-106 [facility] Work Phone: Neutrophils (Bld) [#/Vol] 5.7 10*3/uL 2.0-7.7 [facility] Work Phone: Neutrophils/100 WBC (Bld) 66.3 % 47-70 [facility] Work Phone: Potassium [Moles/Vol] 4.1 mmol/L 3.5-5.1 [facility] Work Phone: Sodium [Moles/Vol] 140 mmol/L 136-145 [facility] Work Phone: WBC (Bld) [#/Vol] 8.6 10*3/uL 4.4-11.0 [facility] Work Phone: Blood erythrocytes count (nu mber/volume)Ordered By: Dr. Wilks on 06-26-2022 RBC (Bld) [#/Vol] 3.91 10*6/uL 4.2-5.4 [facility] Blood hemoglobin measurement (mass/volume)Ordered By: Dr. Wilks on 06-26-2022 Hemoglobin (Bld) [Mass/Vol] 11.4 g/dL 12.0-15.0 [facility] Blood lymphocytes/100 leukoc ytesOrdered By: Dr. Wilks on 06-26-2022 Lymphocytes/100 WBC (Bld) 19.3 % 19-41 [facility] Blood monocytes/100 leukocyt esOrdered By: Dr. Wilks on 06-26-2022 Monocytes/100 WBC (Bld) 8.1 % 0-10 [facility] Blood platelet mean volumeOr dered By: Dr. Wilks on 06-26-2022 Platelet mean volume (Bld) [Entitic vol] 10.7 fL 6.2-12.0 [facility] Determination of erythrocyte mean corpuscular volume (MCV)Ordered By: Dr. Wilks on 06-26-2022 MCV (RBC) [Entitic vol] 93.6 fL 81-99 [facility] Hematocrit Auto (Bld) [Volum e fraction]Ordered By: Dr. Wilks on 06-26-2022 Hematocrit (Bld) [Volume fraction] 36.6 % 37-47 [facility] Laboratory - Chemistry and C hemistry - challengeon 06-26-2022 CO2 [Moles/Vol] 24.0 mmol/L 21.0-32.0 [facility] Work Phone: Magnesium [Mass/Vol] 2.4 mg/dL 1.6-2.6 [facility] Work Phone: Urea nitrogen/Creatinine [Mass ratio] 18.6 mg/mg 10-20 [facility] Work Phone: Laboratory - Hematology and Cell countson 06-26-2022 Erythrocyte distribution width (RBC) [Entitic vol] 53.4 fL 35.1-43.9 [facility] Work Phone: Erythrocyte distribution width (RBC) [Ratio] 15.6 % 11.6-14.6 [facility] Work Phone: Immature granulocytes/100 WBC (Bld) 1.300 % 0.0-0.9 [facility] Work Phone: Comment on above: IG% - Immature Granu locytes (promyelocytes, myelocytes and metamyelocytes) > 1% indicates that a LEFT SHIFT is Present. MCH (RBC) [Entitic mass] 29.2 pg 27.0-32.0 [facility] Work Phone: Nucleated RBC/100 WBC (Bld) [Ratio] 0 % 0-5 [facility] Work Phone: MCHC Auto (RBC) [Mass/Vol]Or dered By: Dr. Wilks on 06-26-2022 MCHC (RBC) [Mass/Vol] 31.1 g/dL 32-36 [facility] No Panel Informationon 06-26 Estimated GFR (MDRD) Amer 97 mL/min >60 [facility] Work Phone: Comment on above: GFR Calc Estimated GFR (MDRD) Non-Af Amer 80 mL/min >60 [facility] Work Phone: Comment on above: Non- GFR Calc No Panel InformationOrdered By: Dr. Wilks on 06-26-2022 29.2 pg 27.0-32.0 [facility] 15.6 % 11.6-14.6 [facility] 53.4 fl 35.1-43.9 [facility] 1.300 % 0.0-0.9 [facility] 0 % 0-5 [facility] 80 mL/min >60 [facility] 97 mL/min >60 [facility] 18.6 RATIO 10-20 [facility] 2.4 mg/dL 1.6-2.6 [facility] 24.0 mmol/L 21.0-32.0 [facility] Platelets bldOrdered By: Dr. Wilks on 06-26-2022 Platelets (Bld) [#/Vol] 273 10*3/uL 150-450 [facility] Serum or plasma C reactive p rotein measurement (mass/volume)Ordered By: Dr. Wilks on 06-26-2022 CRP [Mass/Vol] 21.20 mg/L 0.0-3.0 [facility] Comment on above: C-Reactive Protein ( CRP) provides useful information for thediagnosis, therapy and monitoring of inflammatory processesand associated diseases. For the evaluation of Relative Riskfor Cardiovascular Disease, a High Sensitivity CRP (HSCRP)should be ordered. Serum or plasma calcium chay urement (mass/volume)Ordered By: Dr. Wilks on 06-26-2022 Calcium [Mass/Vol] 10.6 mg/dL 8.5-10.1 [facility] Serum or plasma creatinine m easurement (mass/volume)Ordered By: Dr. Wilks on 06-26-2022 Creatinine [Mass/Vol] 0.75 mg/dL 0.55-1.02 [facility] Comment on above: The validity of the calculated GFR & GFRAA in patients over 70 years has not been determined. Clinical correlation is essential. Serum or plasma urea nitroge n measurement (mass/volume)Ordered By: Dr. Wilks on 06-26-2022 Urea nitrogen [Mass/Vol] 14 mg/dL 7-18 [facility] Thin prep Papanicolaou smear with manual screeningOrdered By: Dr. Wilks on 06-26-2022 Thin prep Papanicolaou smear with manual screening 8 5-15 [facility] Absolute lymphocyte countOrd ered By: Dr. Wilks on 06-21-2022 Lymphocytes Auto (Unsp spec) [#/Vol] 1.26 10*3/uL 0.83-4.51 [facility] Basophil percentageOrdered B y: Dr. Wilks on 06-21-2022 Basophil percentage 106 mg/dL 74-106 [facility] Basophil percentage 139 mmol/L 136-145 [facility] Basophil percentage 4.1 mmol/L 3.5-5.1 [facility] Basophil percentage 109 mmol/L 98-107 [facility] Basophils (Bld) [#/Vol] 7.3 10*3/uL 4.4-11.0 [facility] Basophils (Bld) [#/Vol] 4.7 10*3/uL 2.0-7.7 [facility] Basophils/100 WBC (Bld) 0.8 % 0-1 [facility] Basophils/100 WBC (Bld) 64.5 % 47-70 [facility] Basophils/100 WBC (Bld) 3.3 % 0-5 [facility] Basophil percentageon 2021 Chloride [Moles/Vol] 109 mmol/L 98-107 [facility] Work Phone: Eosinophils/100 WBC (Bld) 3.3 % 0-5 [facility] Work Phone: Glucose [Mass/Vol] 106 mg/dL 74-106 [facility] Work Phone: Comment on above: Fasting Glucose resu lt from 100 to 125 mg/dL suggests IMPAIRED HOMEOSTASIS per A.D.A. criteria. Neutrophils (Bld) [#/Vol] 4.7 10*3/uL 2.0-7.7 [facility] Work Phone: Neutrophils/100 WBC (Bld) 64.5 % 47-70 [facility] Work Phone: Potassium [Moles/Vol] 4.1 mmol/L 3.5-5.1 [facility] Work Phone: Sodium [Moles/Vol] 139 mmol/L 136-145 [facility] Work Phone: WBC (Bld) [#/Vol] 7.3 10*3/uL 4.4-11.0 [facility] Work Phone: Blood erythrocytes count (nu mber/volume)Ordered By: Dr. Wilks on 06-21-2022 RBC (Bld) [#/Vol] 3.83 10*6/uL 4.2-5.4 [facility] Blood hemoglobin measurement (mass/volume)Ordered By: Dr. Wilks on 06-21-2022 Hemoglobin (Bld) [Mass/Vol] 11.2 g/dL 12.0-15.0 [facility] Blood lymphocytes/100 leukoc ytesOrdered By: Dr. Wilks on 06-21-2022 Lymphocytes/100 WBC (Bld) 17.2 % 19-41 [facility] Blood monocytes/100 leukocyt esOrdered By: Dr. Wilks on 06-21-2022 Monocytes/100 WBC (Bld) 13.5 % 0-10 [facility] Blood platelet mean volumeOr dered By: Dr. Wilks on 06-21-2022 Platelet mean volume (Bld) [Entitic vol] 10.6 fL 6.2-12.0 [facility] Determination of erythrocyte mean corpuscular volume (MCV)Ordered By: Dr. Wilks on 06-21-2022 MCV (RBC) [Entitic vol] 94.8 fL 81-99 [facility] Hematocrit Auto (Bld) [Volum e fraction]Ordered By: Dr. Wilks on 06-21-2022 Hematocrit (Bld) [Volume fraction] 36.3 % 37-47 [facility] Laboratory - Chemistry and C hemistry - challengeon 06-21-2022 CO2 [Moles/Vol] 25.0 mmol/L 21.0-32.0 [facility] Work Phone: Magnesium [Mass/Vol] 2.5 mg/dL 1.6-2.6 [facility] Work Phone: Urea nitrogen/Creatinine [Mass ratio] 21.6 mg/mg 10- [facility] Work Phone: Laboratory - Hematology and Cell countson 06-21-2022 Erythrocyte distribution width (RBC) [Entitic vol] 55.5 fL 35.1-43.9 [facility] Work Phone: Erythrocyte distribution width (RBC) [Ratio] 15.9 % 11.6-14.6 [facility] Work Phone: Immature granulocytes/100 WBC (Bld) 0.700 % 0.0-0.9 [facility] Work Phone: Comment on above: IG% - Immature Granu locytes (promyelocytes, myelocytes and metamyelocytes) > 1% indicates that a LEFT SHIFT is Present. MCH (RBC) [Entitic mass] 29.2 pg 27.0-32.0 [facility] Work Phone: Nucleated RBC/100 WBC (Bld) [Ratio] 0 % 0-5 [facility] Work Phone: MCHC Auto (RBC) [Mass/Vol]Or dered By: Dr. Wilks on 06-21-2022 MCHC (RBC) [Mass/Vol] 30.9 g/dL 32-36 [facility] No Panel Informationon 06-21 Estimated GFR (MDRD) Amer 86 mL/min >60 [facility] Work Phone: Comment on above: GFR Calc Estimated GFR (MDRD) Non-Af Amer 71 mL/min >60 [facility] Work Phone: Comment on above: Non- GFR Calc No Panel InformationOrdered By: Dr. Wilks on 06-21-2022 29.2 pg 27.0-32.0 [facility] 15.9 % 11.6-14.6 [facility] 55.5 fl 35.1-43.9 [facility] 0.700 % 0.0-0.9 [facility] 0 % 0-5 [facility] 71 mL/min >60 [facility] 86 mL/min >60 [facility] 21.6 RATIO 10-20 [facility] 2.5 mg/dL 1.6-2.6 [facility] 25.0 mmol/L 21.0-32.0 [facility] Platelets bldOrdered By: Dr. Wilks on 06-21-2022 Platelets (Bld) [#/Vol] 266 10*3/uL 150-450 [facility] Serum or plasma calcium chay urement (mass/volume)Ordered By: Dr. Wilks on 06-21-2022 Calcium [Mass/Vol] 10.4 mg/dL 8.5-10.1 [facility] Serum or plasma creatinine m easurement (mass/volume)Ordered By: Dr. Wilks on 06-21-2022 Creatinine [Mass/Vol] 0.83 mg/dL 0.55-1.02 [facility] Comment on above: The validity of the calculated GFR & GFRAA in patients over 70 years has not been determined. Clinical correlation is essential. Serum or plasma urea nitroge n measurement (mass/volume)Ordered By: Dr. Wilks on 06-21-2022 Urea nitrogen [Mass/Vol] 18 mg/dL 7-18 [facility] Thin prep Papanicolaou smear with manual screeningOrdered By: Dr. Wilks on 06-21-2022 Thin prep Papanicolaou smear with manual screening 5 5-15 [facility] Absolute lymphocyte countOrd ered By: Dr. Wilks on 06-20-2022 Lymphocytes Auto (Unsp spec) [#/Vol] 0.90 10*3/uL 0.83-4.51 [facility] Basophil percentageOrdered B y: Dr. Wilks on 06-20-2022 Basophil percentage 137 mg/dL 74-106 [facility] Basophil percentage 139 mmol/L 136-145 [facility] Basophil percentage 3.8 mmol/L 3.5-5.1 [facility] Basophil percentage 109 mmol/L 98-107 [facility] Basophils (Bld) [#/Vol] 8.7 10*3/uL 4.4-11.0 [facility] Basophils (Bld) [#/Vol] 6.4 10*3/uL 2.0-7.7 [facility] Basophils/100 WBC (Bld) 0.9 % 0-1 [facility] Basophils/100 WBC (Bld) 73.6 % 47-70 [facility] Basophils/100 WBC (Bld) 2.4 % 0-5 [facility] Basophil percentageon 2021 Chloride [Moles/Vol] 109 mmol/L 98-107 [facility] Work Phone: Eosinophils/100 WBC (Bld) 2.4 % 0-5 [facility] Work Phone: Glucose [Mass/Vol] 137 mg/dL 74-106 [facility] Work Phone: Comment on above: Fasting Glucose resu lt greater than or equal to 126 mg/dL suggests DIABETES MELLITUS per A.D.A. criteria. Neutrophils (Bld) [#/Vol] 6.4 10*3/uL 2.0-7.7 [facility] Work Phone: Neutrophils/100 WBC (Bld) 73.6 % 47-70 [facility] Work Phone: Potassium [Moles/Vol] 3.8 mmol/L 3.5-5.1 [facility] Work Phone: Sodium [Moles/Vol] 139 mmol/L 136-145 [facility] Work Phone: WBC (Bld) [#/Vol] 8.7 10*3/uL 4.4-11.0 [facility] Work Phone: Blood erythrocytes count (nu mber/volume)Ordered By: Dr. Wilks on 06-20-2022 RBC (Bld) [#/Vol] 3.78 10*6/uL 4.2-5.4 [facility] Blood hemoglobin measurement (mass/volume)Ordered By: Dr. Wilks on 06-20-2022 Hemoglobin (Bld) [Mass/Vol] 11.5 g/dL 12.0-15.0 [facility] Blood lymphocytes/100 leukoc ytesOrdered By: Dr. Wilks on 06-20-2022 Lymphocytes/100 WBC (Bld) 10.4 % 19-41 [facility] Blood monocytes/100 leukocyt esOrdered By: Dr. Wilks on 06-20-2022 Monocytes/100 WBC (Bld) 12.1 % 0-10 [facility] Blood platelet mean volumeOr dered By: Dr. Wilks on 06-20-2022 Platelet mean volume (Bld) [Entitic vol] 10.6 fL 6.2-12.0 [facility] Determination of erythrocyte mean corpuscular volume (MCV)Ordered By: Dr. Wilks on 06-20-2022 MCV (RBC) [Entitic vol] 94.2 fL 81-99 [facility] Hematocrit Auto (Bld) [Volum e fraction]Ordered By: Dr. Wilks on 06-20-2022 Hematocrit (Bld) [Volume fraction] 35.6 % 37-47 [facility] Laboratory - Chemistry and C hemistry - challengeon 06-20-2022 CO2 [Moles/Vol] 25.0 mmol/L 21.0-32.0 [facility] Work Phone: Magnesium [Mass/Vol] 2.5 mg/dL 1.6-2.6 [facility] Work Phone: Urea nitrogen/Creatinine [Mass ratio] 20.5 mg/mg 10-20 [facility] Work Phone: Laboratory - Hematology and Cell countson 06-20-2022 Erythrocyte distribution width (RBC) [Entitic vol] 53.9 fL 35.1-43.9 [facility] Work Phone: Erythrocyte distribution width (RBC) [Ratio] 15.7 % 11.6-14.6 [facility] Work Phone: Immature granulocytes/100 WBC (Bld) 0.600 % 0.0-0.9 [facility] Work Phone: Comment on above: IG% - Immature Granu locytes (promyelocytes, myelocytes and metamyelocytes) > 1% indicates that a LEFT SHIFT is Present. MCH (RBC) [Entitic mass] 30.4 pg 27.0-32.0 [facility] Work Phone: Nucleated RBC/100 WBC (Bld) [Ratio] 0 % 0-5 [facility] Work Phone: MCHC Auto (RBC) [Mass/Vol]Or dered By: Dr. Wilks on 06-20-2022 MCHC (RBC) [Mass/Vol] 32.3 g/dL 32-36 [facility] No Panel Informationon 06-20 Estimated GFR (MDRD) Amer 86 mL/min >60 [facility] Work Phone: Comment on above: GFR Calc Estimated GFR (MDRD) Non-Af Amer 71 mL/min >60 [facility] Work Phone: Comment on above: Non- GFR Calc No Panel InformationOrdered By: Dr. Wilks on 06-20-2022 30.4 pg 27.0-32.0 [facility] 15.7 % 11.6-14.6 [facility] 53.9 fl 35.1-43.9 [facility] 0.600 % 0.0-0.9 [facility] 0 % 0-5 [facility] 71 mL/min >60 [facility] 86 mL/min >60 [facility] 20.5 RATIO 10-20 [facility] 2.5 mg/dL 1.6-2.6 [facility] 25.0 mmol/L 21.0-32.0 [facility] Platelets bldOrdered By: Dr. Wilks on 06-20-2022 Platelets (Bld) [#/Vol] 276 10*3/uL 150-450 [facility] Serum or plasma calcium chay urement (mass/volume)Ordered By: Dr. Wilks on 06-20-2022 Calcium [Mass/Vol] 10.8 mg/dL 8.5-10.1 [facility] Serum or plasma creatinine m easurement (mass/volume)Ordered By: Dr. Wilks on 06-20-2022 Creatinine [Mass/Vol] 0.83 mg/dL 0.55-1.02 [facility] Comment on above: The validity of the calculated GFR & GFRAA in patients over 70 years has not been determined. Clinical correlation is essential. Serum or plasma urea nitroge n measurement (mass/volume)Ordered By: Dr. Wilks on 06-20-2022 Urea nitrogen [Mass/Vol] 17 mg/dL 03-13 [facility] Thin prep Papanicolaou smear with manual screeningOrdered By: Dr. Wilks on 06-20-2022 Thin prep Papanicolaou smear with manual screening 5 5-15 [facility] Absolute lymphocyte countOrd ered By: Dr. Wilks on 06-13-2022 Lymphocytes Auto (Unsp spec) [#/Vol] 1.35 10*3/uL 0.83-4.51 [facility] Basophil percentageOrdered B y: Dr. Wilks on 06-13-2022 Basophil percentage 97 mg/dL 74-106 [facility] Basophil percentage 141 mmol/L 136-145 [facility] Basophil percentage 4.4 mmol/L 3.5-5.1 [facility] Basophil percentage 109 mmol/L 98-107 [facility] Basophils (Bld) [#/Vol] 7.4 10*3/uL 4.4-11.0 [facility] Basophils (Bld) [#/Vol] 4.7 10*3/uL 2.0-7.7 [facility] Basophils/100 WBC (Bld) 0.8 % 0-1 [facility] Basophils/100 WBC (Bld) 64.1 % 47-70 [facility] Basophils/100 WBC (Bld) 5.8 % 0-5 [facility] Basophil percentageon 2021 Chloride [Moles/Vol] 109 mmol/L 98-107 [facility] Work Phone: Eosinophils/100 WBC (Bld) 5.8 % 0-5 [facility] Work Phone: Glucose [Mass/Vol] 97 mg/dL 74-106 [facility] Work Phone: Neutrophils (Bld) [#/Vol] 4.7 10*3/uL 2.0-7.7 [facility] Work Phone: Neutrophils/100 WBC (Bld) 64.1 % 47-70 [facility] Work Phone: Potassium [Moles/Vol] 4.4 mmol/L 3.5-5.1 [facility] Work Phone: Sodium [Moles/Vol] 141 mmol/L 136-145 [facility] Work Phone: WBC (Bld) [#/Vol] 7.4 10*3/uL 4.4-11.0 [facility] Work Phone: Blood erythrocytes count (nu mber/volume)Ordered By: Dr. Wilks on 06-13-2022 RBC (Bld) [#/Vol] 3.62 10*6/uL 4.2-5.4 [facility] Blood hemoglobin measurement (mass/volume)Ordered By: Dr. Wilks on 06-13-2022 Hemoglobin (Bld) [Mass/Vol] 11.0 g/dL 12.0-15.0 [facility] Blood lymphocytes/100 leukoc ytesOrdered By: Dr. Wilks on 06-13-2022 Lymphocytes/100 WBC (Bld) 18.3 % 19-41 [facility] Blood monocytes/100 leukocyt esOrdered By: Dr. Wilks on 06-13-2022 Monocytes/100 WBC (Bld) 10.2 % 0-10 [facility] Blood platelet mean volumeOr dered By: Dr. Wilks on 06-13-2022 Platelet mean volume (Bld) [Entitic vol] 9.9 fL 6.2-12.0 [facility] Determination of erythrocyte mean corpuscular volume (MCV)Ordered By: Dr. Wilks on 06-13-2022 MCV (RBC) [Entitic vol] 97.2 fL 81-99 [facility] Hematocrit Auto (Bld) [Volum e fraction]Ordered By: Dr. Wilks on 06-13-2022 Hematocrit (Bld) [Volume fraction] 35.2 % 37-47 [facility] Laboratory - Chemistry and C hemistry - challengeon 06-13-2022 CO2 [Moles/Vol] 29.0 mmol/L 21.0-32.0 [facility] Work Phone: Magnesium [Mass/Vol] 2.6 mg/dL 1.6-2.6 [facility] Work Phone: Urea nitrogen/Creatinine [Mass ratio] 22.0 mg/mg 10-20 [facility] Work Phone: Laboratory - Hematology and Cell countson 06-13-2022 Erythrocyte distribution width (RBC) [Entitic vol] 56.2 fL 35.1-43.9 [facility] Work Phone: Erythrocyte distribution width (RBC) [Ratio] 15.9 % 11.6-14.6 [facility] Work Phone: Immature granulocytes/100 WBC (Bld) 0.800 % 0.0-0.9 [facility] Work Phone: Comment on above: IG% - Immature Granu locytes (promyelocytes, myelocytes and metamyelocytes) > 1% indicates that a LEFT SHIFT is Present. MCH (RBC) [Entitic mass] 30.4 pg 27.0-32.0 [facility] Work Phone: Nucleated RBC/100 WBC (Bld) [Ratio] 0 % 0-5 [facility] Work Phone: MCHC Auto (RBC) [Mass/Vol]Or dered By: Dr. Wilks on 06-13-2022 MCHC (RBC) [Mass/Vol] 31.3 g/dL 32-36 [facility] No Panel Informationon 06-13 Estimated GFR (MDRD) Amer 82 mL/min >60 [facility] Work Phone: Comment on above: GFR Calc Estimated GFR (MDRD) Non-Af Amer 68 mL/min >60 [facility] Work Phone: Comment on above: Non- GFR Calc Ionized Calcium 6.5 mg/dL 4.5-5.6 [facility] Work Phone: Comment on above: Performed at: [address] Director: Alexis Thomas PhD, Phone: [phone] Parathyroid Hormone (Intact) 81.7 pg/mL 18.4-80.1 [facility] Work Phone: No Panel InformationOrdered By: Dr. Wilks on 06-13-2022 30.4 pg 27.0-32.0 [facility] 15.9 % 11.6-14.6 [facility] 56.2 fl 35.1-43.9 [facility] 0.800 % 0.0-0.9 [facility] 0 % 0-5 [facility] 68 mL/min >60 [facility] 82 mL/min >60 [facility] 22.0 RATIO 10-20 [facility] 2.6 mg/dL 1.6-2.6 [facility] 29.0 mmol/L 21.0-32.0 [facility] 81.7 pg/mL 18.4-80.1 [facility] 6.5 mg/dL 4.5-5.6 [facility] Platelets bldOrdered By: Dr. Wilks on 06-13-2022 Platelets (Bld) [#/Vol] 281 10*3/uL 150-450 [facility] Serum or plasma calcium chay urement (mass/volume)Ordered By: Dr. Wilks on 06-13-2022 Calcium [Mass/Vol] 10.8 mg/dL 8.5-10.1 [facility] Serum or plasma creatinine m easurement (mass/volume)Ordered By: Dr. Wilks on 06-13-2022 Creatinine [Mass/Vol] 0.86 mg/dL 0.55-1.02 [facility] Comment on above: The validity of the calculated GFR & GFRAA in patients over 70 years has not been determined. Clinical correlation is essential. Serum or plasma urea nitroge n measurement (mass/volume)Ordered By: Dr. Wilks on 06-13-2022 Urea nitrogen [Mass/Vol] 19 mg/dL -18 [facility] Thin prep Papanicolaou smear with manual screeningOrdered By: Dr. Wilks on 06-13-2022 Thin prep Papanicolaou smear with manual screening 3 5-15 [facility] Absolute lymphocyte countOrd ered By: Dr. Wilks on 06-06-2022 Lymphocytes Auto (Unsp spec) [#/Vol] 1.27 10*3/uL 0.83-4.51 [facility] Bacteria identified Cx Nom ( U)Ordered By: Dr. Wilks on 06-06-2022 Culture, urine Mixed Gram Pos & Gram Neg Org [facility] Basophil percentageOrdered B y: Dr. Wilks on 06-06-2022 Basophil percentage 90 mg/dL 74-106 [facility] Basophil percentage 141 mmol/L 136-145 [facility] Basophil percentage 4.5 mmol/L 3.5-5.1 [facility] Basophil percentage 108 mmol/L 98-107 [facility] Basophils (Bld) [#/Vol] 7.0 10*3/uL 4.4-11.0 [facility] Basophils (Bld) [#/Vol] 4.4 10*3/uL 2.0-7.7 [facility] Basophils/100 WBC (Bld) 0.9 % 0-1 [facility] Basophils/100 WBC (Bld) 62.6 % 47-70 [facility] Basophils/100 WBC (Bld) 7.1 % 0-5 [facility] Basophil percentageon 2021 Chloride [Moles/Vol] 108 mmol/L 98-107 [facility] Work Phone: Eosinophils/100 WBC (Bld) 7.1 % 0-5 [facility] Work Phone: Glucose [Mass/Vol] 90 mg/dL 74-106 [facility] Work Phone: Neutrophils (Bld) [#/Vol] 4.4 10*3/uL 2.0-7.7 [facility] Work Phone: Neutrophils/100 WBC (Bld) 62.6 % 47-70 [facility] Work Phone: Potassium [Moles/Vol] 4.5 mmol/L 3.5-5.1 [facility] Work Phone: Sodium [Moles/Vol] 141 mmol/L 136-145 [facility] Work Phone: WBC (Bld) [#/Vol] 7.0 10*3/uL 4.4-11.0 [facility] Work Phone: Blood erythrocytes count (nu mber/volume)Ordered By: Dr. Wilks on 06-06-2022 RBC (Bld) [#/Vol] 3.47 10*6/uL 4.2-5.4 [facility] Blood hemoglobin measurement (mass/volume)Ordered By: Dr. Wilks on 06-06-2022 Hemoglobin (Bld) [Mass/Vol] 10.6 g/dL 12.0-15.0 [facility] Blood lymphocytes/100 leukoc ytesOrdered By: Dr. Wilks on 06-06-2022 Lymphocytes/100 WBC (Bld) 18.3 % 19-41 [facility] Blood monocytes/100 leukocyt esOrdered By: Dr. Wilks on 06-06-2022 Monocytes/100 WBC (Bld) 10.5 % 0-10 [facility] Blood platelet mean volumeOr dered By: Dr. Wilks on 06-06-2022 Platelet mean volume (Bld) [Entitic vol] 10.6 fL 6.2-12.0 [facility] Determination of erythrocyte mean corpuscular volume (MCV)Ordered By: Dr. Wikls on 06-06-2022 MCV (RBC) [Entitic vol] 97.4 fL 81-99 [facility] Hematocrit Auto (Bld) [Volum e fraction]Ordered By: Dr. Wilks on 06-06-2022 Hematocrit (Bld) [Volume fraction] 33.8 % 37-47 [facility] Laboratory - Chemistry and C hemistry - challengeon 06-06-2022 CO2 [Moles/Vol] 27.0 mmol/L 21.0-32.0 [facility] Work Phone: Magnesium [Mass/Vol] 2.3 mg/dL 1.6-2.6 [facility] Work Phone: Urea nitrogen/Creatinine [Mass ratio] 22.9 mg/mg 10-20 [facility] Work Phone: Laboratory - Hematology and Cell countson 06-06-2022 Erythrocyte distribution width (RBC) [Entitic vol] 54.7 fL 35.1-43.9 [facility] Work Phone: Erythrocyte distribution width (RBC) [Ratio] 15.3 % 11.6-14.6 [facility] Work Phone: Immature granulocytes/100 WBC (Bld) 0.600 % 0.0-0.9 [facility] Work Phone: Comment on above: IG% - Immature Granu locytes (promyelocytes, myelocytes and metamyelocytes) > 1% indicates that a LEFT SHIFT is Present. MCH (RBC) [Entitic mass] 30.5 pg 27.0-32.0 [facility] Work Phone: Nucleated RBC/100 WBC (Bld) [Ratio] 0 % 0-5 [facility] Work Phone: MCHC Auto (RBC) [Mass/Vol]Or dered By: Dr. Wilks on 06-06-2022 MCHC (RBC) [Mass/Vol] 31.4 g/dL 32-36 [facility] No Panel Informationon 06-06 Estimated GFR (MDRD) Amer 81 mL/min >60 [facility] Work Phone: Comment on above: GFR Calc Estimated GFR (MDRD) Non-Af Amer 67 mL/min >60 [facility] Work Phone: Comment on above: Non- GFR Calc No Panel InformationOrdered By: Dr. Wilks on 06-06-2022 30.5 pg 27.0-32.0 [facility] 15.3 % 11.6-14.6 [facility] 54.7 fl 35.1-43.9 [facility] 0.600 % 0.0-0.9 [facility] 0 % 0-5 [facility] 67 mL/min >60 [facility] 81 mL/min >60 [facility] 22.9 RATIO 10-20 [facility] 2.3 mg/dL 1.6-2.6 [facility] 27.0 mmol/L 21.0-32.0 [facility] Platelets bldOrdered By: Dr. Wilks on 06-06-2022 Platelets (Bld) [#/Vol] 280 10*3/uL 150-450 [facility] Serum or plasma calcium chay urement (mass/volume)Ordered By: Dr. Wilks on 06-06-2022 Calcium [Mass/Vol] 10.3 mg/dL 8.5-10.1 [facility] Serum or plasma creatinine m easurement (mass/volume)Ordered By: Dr. Wilks on 06-06-2022 Creatinine [Mass/Vol] 0.87 mg/dL 0.55-1.02 [facility] Comment on above: The validity of the calculated GFR & GFRAA in patients over 70 years has not been determined. Clinical correlation is essential. Serum or plasma urea nitroge n measurement (mass/volume)Ordered By: Dr. Wilks on 06-06-2022 Urea nitrogen [Mass/Vol] 20 mg/dL 7-18 [facility] Thin prep Papanicolaou smear with manual screeningOrdered By: Dr. Wilks on 06-06-2022 Thin prep Papanicolaou smear with manual screening 6 5-15 [facility] Bilirubin Test strip Ql (U)O rdered By: Dr. Wilks on 06-04-2022 Bilirubin Ql (U) Negative Negative [facility] Ketones Test strip Ql (U)Ord ered By: Dr. Wilks on 06-04-2022 Ketones Ql (U) Negative Negative [facility] Nitrite Test strip Ql (U)Ord ered By: Dr. Wilks on 06-04-2022 Nitrite Ql (U) Negative Negative [facility] Protein Test strip Ql (U)Ord ered By: Dr. Wilks on 06-04-2022 Protein Ql (U) Negative Negative [facility] Urine blood detectionOrdered By: Dr. Wilks on 06-04-2022 RBC Ql (U) 10 /ul Negative [facility] Urine clarityOrdered By: Dr. Wilks on 06-04-2022 Clarity (U) Sl. Cloudy Clear [facility] Urine color determinationOrd ered By: Dr. Wilks on 06-04-2022 Color (U) Yellow Yellow [facility] Urine glucose detectionOrder ed By: Dr. Wilks on 06-04-2022 Glucose Ql (U) Normal mg/dl Normal [facility] Urine leukocyte esterase det ection by dipstickOrdered By: Dr. Wilks on 06-04-2022 Leukocyte esterase Test strip Ql (U) 25 /ul Negative [facility] Urine pHOrdered By: Dr. Aviva ku on 06-04-2022 pH (U) 6.0 [pH] 5.0 - 8.0 [facility] Urine specific gravity measu rementOrdered By: Dr. Wilks on 06-04-2022 Specific gravity (U) [Rel density] 1.015 1.002-1.030 [facility] Urobilinogen Auto test strip Ql (U)Ordered By: Dr. Wilks on 06-04-2022 Urobilinogen Ql (U) Normal mg/dl Normal [facility] Absolute lymphocyte countOrd ered By: Dr. Wilks on 05-30-2022 Lymphocytes Auto (Unsp spec) [#/Vol] 1.50 10*3/uL 0.83-4.51 [facility] Basophil percentageOrdered B y: Dr. Wilks on 05-30-2022 Basophil percentage 83 mg/dL 74-106 [facility] Basophil percentage 137 mmol/L 136-145 [facility] Basophil percentage 4.2 mmol/L 3.5-5.1 [facility] Basophil percentage 105 mmol/L 98-107 [facility] Basophils (Bld) [#/Vol] 9.0 10*3/uL 4.4-11.0 [facility] Basophils (Bld) [#/Vol] 6.2 10*3/uL 2.0-7.7 [facility] Basophils/100 WBC (Bld) 0.8 % 0-1 [facility] Basophils/100 WBC (Bld) 69.5 % 47-70 [facility] Basophils/100 WBC (Bld) 3.6 % 0-5 [facility] Basophil percentageon 2021 Chloride [Moles/Vol] 105 mmol/L 98-107 [facility] Work Phone: Eosinophils/100 WBC (Bld) 3.6 % 0-5 [facility] Work Phone: Glucose [Mass/Vol] 83 mg/dL 74-106 [facility] Work Phone: Neutrophils (Bld) [#/Vol] 6.2 10*3/uL 2.0-7.7 [facility] Work Phone: Neutrophils/100 WBC (Bld) 69.5 % 47-70 [facility] Work Phone: Potassium [Moles/Vol] 4.2 mmol/L 3.5-5.1 [facility] Work Phone: Sodium [Moles/Vol] 137 mmol/L 136-145 [facility] Work Phone: WBC (Bld) [#/Vol] 9.0 10*3/uL 4.4-11.0 [facility] Work Phone: Blood erythrocytes count (nu mber/volume)Ordered By: Dr. Wilks on 05-30-2022 RBC (Bld) [#/Vol] 3.73 10*6/uL 4.2-5.4 [facility] Blood hemoglobin measurement (mass/volume)Ordered By: Dr. Wilks on 05-30-2022 Hemoglobin (Bld) [Mass/Vol] 11.6 g/dL 12.0-15.0 [facility] Blood lymphocytes/100 leukoc ytesOrdered By: Dr. Wilks on 05-30-2022 Lymphocytes/100 WBC (Bld) 16.7 % 19-41 [facility] Blood monocytes/100 leukocyt esOrdered By: Dr. Wilks on 05-30-2022 Monocytes/100 WBC (Bld) 8.4 % 0-10 [facility] Blood platelet mean volumeOr dered By: Dr. Wilks on 05-30-2022 Platelet mean volume (Bld) [Entitic vol] 10.2 fL 6.2-12.0 [facility] Determination of erythrocyte mean corpuscular volume (MCV)Ordered By: Dr. Wilks on 05-30-2022 MCV (RBC) [Entitic vol] 96.5 fL 81-99 [facility] Hematocrit Auto (Bld) [Volum e fraction]Ordered By: Dr. Wilks on 05-30-2022 Hematocrit (Bld) [Volume fraction] 36.0 % 37-47 [facility] Laboratory - Chemistry and C hemistry - challengeon 05-30-2022 CO2 [Moles/Vol] 24.0 mmol/L 21.0-32.0 [facility] Work Phone: Magnesium [Mass/Vol] 2.3 mg/dL 1.6-2.6 [facility] Work Phone: Urea nitrogen/Creatinine [Mass ratio] 22.1 mg/mg 10-20 [facility] Work Phone: Laboratory - Hematology and Cell countson 05-30-2022 Erythrocyte distribution width (RBC) [Entitic vol] 53.2 fL 35.1-43.9 [facility] Work Phone: Erythrocyte distribution width (RBC) [Ratio] 15.2 % 11.6-14.6 [facility] Work Phone: Immature granulocytes/100 WBC (Bld) 1.000 % 0.0-0.9 [facility] Work Phone: Comment on above: IG% - Immature Granu locytes (promyelocytes, myelocytes and metamyelocytes) > 1% indicates that a LEFT SHIFT is Present. MCH (RBC) [Entitic mass] 31.1 pg 27.0-32.0 [facility] Work Phone: Nucleated RBC/100 WBC (Bld) [Ratio] 0 % 0-5 [facility] Work Phone: MCHC Auto (RBC) [Mass/Vol]Or dered By: Dr. Wilks on 05-30-2022 MCHC (RBC) [Mass/Vol] 32.2 g/dL 32-36 [facility] No Panel Informationon 05-30 Estimated GFR (MDRD) Amer 60 mL/min >60 [facility] Work Phone: Comment on above: GFR Calc Estimated GFR (MDRD) Non-Af Amer 50 mL/min >60 [facility] Work Phone: Comment on above: Non- GFR Calc No Panel InformationOrdered By: Dr. Wilks on 05-30-2022 31.1 pg 27.0-32.0 [facility] 15.2 % 11.6-14.6 [facility] 53.2 fl 35.1-43.9 [facility] 1.000 % 0.0-0.9 [facility] 0 % 0-5 [facility] 50 mL/min >60 [facility] 60 mL/min >60 [facility] 22.1 RATIO 10-20 [facility] 2.3 mg/dL 1.6-2.6 [facility] 24.0 mmol/L 21.0-32.0 [facility] Platelets bldOrdered By: Dr. Wilks on 05-30-2022 Platelets (Bld) [#/Vol] 384 10*3/uL 150-450 [facility] Serum or plasma calcium chay urement (mass/volume)Ordered By: Dr. Wilks on 05-30-2022 Calcium [Mass/Vol] 10.7 mg/dL 8.5-10.1 [facility] Serum or plasma creatinine m easurement (mass/volume)Ordered By: Dr. Wilks on 05-30-2022 Creatinine [Mass/Vol] 1.13 mg/dL 0.55-1.02 [facility] Comment on above: The validity of the calculated GFR & GFRAA in patients over 70 years has not been determined. Clinical correlation is essential. Serum or plasma urea nitroge n measurement (mass/volume)Ordered By: Dr. Wilks on 05-30-2022 Urea nitrogen [Mass/Vol] 25 mg/dL 7-18 [facility] Thin prep Papanicolaou smear with manual screeningOrdered By: Dr. Wilks on 05-30-2022 Thin prep Papanicolaou smear with manual screening 8 5-15 [facility] Basophil percentageOrdered B y: Dr. Wilks on 05-23-2022 Basophil percentage 108 mg/dL 74-106 [facility] Basophil percentage 138 mmol/L 136-145 [facility] Basophil percentage 4.1 mmol/L 3.5-5.1 [facility] Basophil percentage 105 mmol/L 98-107 [facility] Basophils (Bld) [#/Vol] 8.9 10*3/uL 4.4-11.0 [facility] Basophil percentageon 2021 Chloride [Moles/Vol] 105 mmol/L 98-107 [facility] Work Phone: Glucose [Mass/Vol] 108 mg/dL 74-106 [facility] Work Phone: Comment on above: Fasting Glucose resu lt from 100 to 125 mg/dL suggests IMPAIRED HOMEOSTASIS per A.D.A. criteria. Potassium [Moles/Vol] 4.1 mmol/L 3.5-5.1 [facility] Work Phone: Sodium [Moles/Vol] 138 mmol/L 136-145 [facility] Work Phone: WBC (Bld) [#/Vol] 8.9 10*3/uL 4.4-11.0 [facility] Work Phone: Blood erythrocytes count (nu mber/volume)Ordered By: Dr. Wilks on 05-23-2022 RBC (Bld) [#/Vol] 3.69 10*6/uL 4.2-5.4 [facility] Blood hemoglobin measurement (mass/volume)Ordered By: Dr. Wilks on 09-27-2022 Hemoglobin (Bld) [Mass/Vol] 11.5 g/dL 12.0-15.0 [facility] Blood platelet mean volumeOr dered By: Dr. Wilks on 05-23-2022 Platelet mean volume (Bld) [Entitic vol] 10.5 fL 6.2-12.0 [facility] Determination of erythrocyte mean corpuscular volume (MCV)Ordered By: Dr. Wilks on 05-23-2022 MCV (RBC) [Entitic vol] 96.2 fL 81-99 [facility] Hematocrit Auto (Bld) [Volum e fraction]Ordered By: Dr. Wilks on 05-23-2022 Hematocrit (Bld) [Volume fraction] 35.5 % 37-47 [facility] Laboratory - Chemistry and C hemistry - challengeon 05-23-2022 CO2 [Moles/Vol] 25.0 mmol/L 21.0-32.0 [facility] Work Phone: Magnesium [Mass/Vol] 2.5 mg/dL 1.6-2.6 [facility] Work Phone: Urea nitrogen/Creatinine [Mass ratio] 30.6 mg/mg 10-20 [facility] Work Phone: Laboratory - Hematology and Cell countson 05-23-2022 Erythrocyte distribution width (RBC) [Entitic vol] 51.6 fL 35.1-43.9 [facility] Work Phone: Erythrocyte distribution width (RBC) [Ratio] 14.7 % 11.6-14.6 [facility] Work Phone: MCH (RBC) [Entitic mass] 31.2 pg 27.0-32.0 [facility] Work Phone: MCHC Auto (RBC) [Mass/Vol]Or dered By: Dr. Wilks on 05-23-2022 MCHC (RBC) [Mass/Vol] 32.4 g/dL 32-36 [facility] No Panel Informationon 05-23 Estimated GFR (MDRD) Amer 33 mL/min >60 [facility] Work Phone: Comment on above: GFR Calc Estimated GFR (MDRD) Non-Af Amer 27 mL/min >60 [facility] Work Phone: Comment on above: Non- GFR Calc No Panel InformationOrdered By: Dr. Wilks on 05-23-2022 31.2 pg 27.0-32.0 [facility] 14.7 % 11.6-14.6 [facility] 51.6 fl 35.1-43.9 [facility] 27 mL/min >60 [facility] 33 mL/min >60 [facility] 30.6 RATIO 10-20 [facility] 2.5 mg/dL 1.6-2.6 [facility] 25.0 mmol/L 21.0-32.0 [facility] Platelets bldOrdered By: Dr. Wilks on 05-23-2022 Platelets (Bld) [#/Vol] 383 10*3/uL 150-450 [facility] Serum or plasma calcium chay urement (mass/volume)Ordered By: Dr. Wilks on 05-23-2022 Calcium [Mass/Vol] 10.9 mg/dL 8.5-10.1 [facility] Serum or plasma creatinine m easurement (mass/volume)Ordered By: Dr. Wilks on 05-23-2022 Creatinine [Mass/Vol] 1.93 mg/dL 0.55-1.02 [facility] Comment on above: The validity of the calculated GFR & GFRAA in patients over 70 years has not been determined. Clinical correlation is essential. Serum or plasma urea nitroge n measurement (mass/volume)Ordered By: Dr. Wilks on 05-23-2022 Urea nitrogen [Mass/Vol] 59 mg/dL 7-18 [facility] Serum or plasma uric acid me asurement (mass/volume)Ordered By: Dr. Wilks on 05-23-2022 Urate [Mass/Vol] 8.1 mg/dL 2.6-6.0 [facility] Comment on above: The drugs N-Acetylcy steine and Metamizole may falsely depress this assay. Thin prep Papanicolaou smear with manual screeningOrdered By: Dr. Wilks on 05-23-2022 Thin prep Papanicolaou smear with manual screening 8 5-15 [facility] Absolute lymphocyte counton 05-18-2022 Lymphocytes Auto (Unsp spec) [#/Vol] 1.16 10*3/uL 0.83-4.51 [facility] Work Phone: Basophil percentageon 2021 Basophils/100 WBC (Bld) 0.7 % 0-1 [facility] Work Phone: Chloride [Moles/Vol] 105 mmol/L 98-107 [facility] Work Phone: Eosinophils/100 WBC (Bld) 4.6 % 0-5 [facility] Work Phone: Glucose [Mass/Vol] 111 mg/dL 74-106 [facility] Work Phone: Comment on above: Fasting Glucose resu lt from 100 to 125 mg/dL suggests IMPAIRED HOMEOSTASIS per A.D.A. criteria. Neutrophils (Bld) [#/Vol] 7.0 10*3/uL 2.0-7.7 [facility] Work Phone: Neutrophils/100 WBC (Bld) 72.3 % 47-70 [facility] Work Phone: Potassium [Moles/Vol] 3.8 mmol/L 3.5-5.1 [facility] Work Phone: Sodium [Moles/Vol] 138 mmol/L 136-145 [facility] Work Phone: WBC (Bld) [#/Vol] 9.6 10*3/uL 4.4-11.0 [facility] Work Phone: Blood erythrocytes count (nu mber/volume)on 05-18-2022 RBC (Bld) [#/Vol] 3.55 10*6/uL 4.2-5.4 [facility] Work Phone: Blood hemoglobin measurement (mass/volume)on 05-18-2022 Hemoglobin (Bld) [Mass/Vol] 10.8 g/dL 12.0-15.0 [facility] Work Phone: Blood lymphocytes/100 leukoc yteson 05-18-2022 Lymphocytes/100 WBC (Bld) 12.0 % 19-41 [facility] Work Phone: Blood monocytes/100 leukocyt eson 05-18-2022 Monocytes/100 WBC (Bld) 10.0 % 0-10 [facility] Work Phone: Blood platelet mean volumeon 05-18-2022 Platelet mean volume (Bld) [Entitic vol] 10.6 fL 6.2-12.0 [facility] Work Phone: Determination of erythrocyte mean corpuscular volume (MCV)on 05-18-2022 MCV (RBC) [Entitic vol] 96.3 fL 81-99 [facility] Work Phone: Hematocrit Auto (Bld) [Volum e fraction]on 05-18-2022 Hematocrit (Bld) [Volume fraction] 34.2 % 37-47 [facility] Work Phone: Laboratory - Chemistry and C hemistry - challengeon 05-18-2022 CO2 [Moles/Vol] 25.0 mmol/L 21.0-32.0 [facility] Work Phone: Cobalamin (Vitamin B12) [Mass/Vol] 909 pg/mL 211-911 [facility] Work Phone: Magnesium [Mass/Vol] 2.3 mg/dL 1.6-2.6 [facility] Work Phone: Urea nitrogen/Creatinine [Mass ratio] 30.1 mg/mg 10-20 [facility] Work Phone: Laboratory - Hematology and Cell countson 05-18-2022 Erythrocyte distribution width (RBC) [Entitic vol] 52.5 fL 35.1-43.9 [facility] Work Phone: Erythrocyte distribution width (RBC) [Ratio] 14.7 % 11.6-14.6 [facility] Work Phone: Immature granulocytes/100 WBC (Bld) 0.400 % 0.0-0.9 [facility] Work Phone: Comment on above: IG% - Immature Granu locytes (promyelocytes, myelocytes and metamyelocytes) > 1% indicates that a LEFT SHIFT is Present. MCH (RBC) [Entitic mass] 30.4 pg 27.0-32.0 [facility] Work Phone: Nucleated RBC/100 WBC (Bld) [Ratio] 0 % 0-5 [facility] Work Phone: MCHC Auto (RBC) [Mass/Vol]on 05-18-2022 MCHC (RBC) [Mass/Vol] 31.6 g/dL 32-36 [facility] Work Phone: No Panel Informationon 05-18 Estimated GFR (MDRD) Amer 40 mL/min >60 [facility] Work Phone: Comment on above: GFR Calc Estimated GFR (MDRD) Non-Af Amer 33 mL/min >60 [facility] Work Phone: Comment on above: Non- GFR Calc Vitamin D 25-Hydroxy 85.9 ng/mL [facility] Work Phone: Comment on above: Vitamin D 25(OH) Sta tus Range Deficiency <20 ng/mL (50nmol/L) Insufficiency 20 - 30 ng/mL (50 - 75 nmol/L) Sufficiency 30 - 100 ng/mL (75 - 250 nmol/L) Toxicity >100 ng/mL (>250 nmol/L) Platelets bldon 05-18-2022 Platelets (Bld) [#/Vol] 277 10*3/uL 150-450 [facility] Work Phone: Serum or plasma calcium chay urement (mass/volume)on 05-18-2022 Calcium [Mass/Vol] 10.2 mg/dL 8.5-10.1 [facility] Work Phone: Serum or plasma creatinine m easurement (mass/volume)on 05-18-2022 Creatinine [Mass/Vol] 1.63 mg/dL 0.55-1.02 [facility] Work Phone: Comment on above: The validity of the calculated GFR & GFRAA in patients over 70 years has not been determined. Clinical correlation is essential. Serum or plasma urea nitroge n measurement (mass/volume)on 05-18-2022 Urea nitrogen [Mass/Vol] 49 mg/dL 7-18 [facility] Work Phone: Thin prep Papanicolaou smear with manual screeningon 05-18-2022 Thin prep Papanicolaou smear with manual screening 8 5-15 [facility] Work Phone: Absolute lymphocyte counton 05-16-2022 Lymphocytes Auto (Unsp spec) [#/Vol] 1.09 10*3/uL 0.83-4.51 [facility] Work Phone: Basophil percentageon 2021 Basophils/100 WBC (Bld) 0.6 % 0-1 [facility] Work Phone: Chloride [Moles/Vol] 103 mmol/L 98-107 [facility] Work Phone: Eosinophils/100 WBC (Bld) 3.2 % 0-5 [facility] Work Phone: Glucose [Mass/Vol] 100 mg/dL 74-106 [facility] Work Phone: Comment on above: Fasting Glucose resu lt from 100 to 125 mg/dL suggests IMPAIRED HOMEOSTASIS per A.D.A. criteria. Neutrophils (Bld) [#/Vol] 7.2 10*3/uL 2.0-7.7 [facility] Work Phone: Neutrophils/100 WBC (Bld) 75.3 % 47-70 [facility] Work Phone: Potassium [Moles/Vol] 3.6 mmol/L 3.5-5.1 [facility] Work Phone: Sodium [Moles/Vol] 138 mmol/L 136-145 [facility] Work Phone: WBC (Bld) [#/Vol] 9.6 10*3/uL 4.4-11.0 [facility]: Blood erythrocytes count (nu mber/volume)on 05-16-2022 RBC (Bld) [#/Vol] 3.52 10*6/uL 4.2-5.4 [facility] Work Phone: Blood hemoglobin measurement (mass/volume)on 05-16-2022 Hemoglobin (Bld) [Mass/Vol] 11.3 g/dL 12.0-15.0 [facility] Work Phone: Blood lymphocytes/100 leukoc yteson 05-16-2022 Lymphocytes/100 WBC (Bld) 11.3 % 19-41 [facility] Work Phone: Blood monocytes/100 leukocyt eson 05-16-2022 Monocytes/100 WBC (Bld) 9.1 % 0-10 [facility] Work Phone: Blood platelet mean volumeon 05-16-2022 Platelet mean volume (Bld) [Entitic vol] 10.5 fL 6.2-12.0 [facility] Work Phone: Determination of erythrocyte mean corpuscular volume (MCV)on 05-16-2022 MCV (RBC) [Entitic vol] 96.9 fL 81-99 [facility] Work Phone: Hematocrit Auto (Bld) [Volum e fraction]on 05-16-2022 Hematocrit (Bld) [Volume fraction] 34.1 % 37-47 [facility] Work Phone: Laboratory - Chemistry and C hemistry - challengeon 05-16-2022 CO2 [Moles/Vol] 25.0 mmol/L 21.0-32.0 [facility] Work Phone: Cobalamin (Vitamin B12) [Mass/Vol] 615 pg/mL 211-911 [facility] Work Phone: Magnesium [Mass/Vol] 2.3 mg/dL 1.6-2.6 [facility] Work Phone: Urea nitrogen/Creatinine [Mass ratio] 18.0 mg/mg 10-20 [facility] Work Phone: Laboratory - Hematology and Cell countson 05-16-2022 Erythrocyte distribution width (RBC) [Entitic vol] 52.1 fL 35.1-43.9 [facility] Work Phone: Erythrocyte distribution width (RBC) [Ratio] 14.6 % 11.6-14.6 [facility] Work Phone: Immature granulocytes/100 WBC (Bld) 0.500 % 0.0-0.9 [facility] Work Phone: Comment on above: IG% - Immature Granu locytes (promyelocytes, myelocytes and metamyelocytes) > 1% indicates that a LEFT SHIFT is Present. MCH (RBC) [Entitic mass] 32.1 pg 27.0-32.0 [facility] Work Phone: Nucleated RBC/100 WBC (Bld) [Ratio] 0 % 0-5 [facility] Work Phone: MCHC Auto (RBC) [Mass/Vol]on 05-16-2022 MCHC (RBC) [Mass/Vol] 33.1 g/dL 32-36 [facility] Work Phone: Comment on above: Delta: 31.0 on 05/13-1455 No Panel Informationon 05-16 Estimated GFR (MDRD) Amer 80 mL/min >60 [facility] Work Phone: Comment on above: GFR Calc Estimated GFR (MDRD) Non-Af Amer 66 mL/min >60 [facility] Work Phone: Comment on above: Non- GFR Calc Vitamin D 25-Hydroxy 82.5 ng/mL [facility] Work Phone: Comment on above: Vitamin D 25(OH) Sta tus Range Deficiency <20 ng/mL (50nmol/L) Insufficiency 20 - 30 ng/mL (50 - 75 nmol/L) Sufficiency 30 - 100 ng/mL (75 - 250 nmol/L) Toxicity >100 ng/mL (>250 nmol/L) Platelets bldon 05-16-2022 Platelets (Bld) [#/Vol] 223 10*3/uL 150-450 [facility] Work Phone: Serum or plasma calcium chay urement (mass/volume)on 05-16-2022 Calcium [Mass/Vol] 10.4 mg/dL 8.5-10.1 [facility] Work Phone: Serum or plasma creatinine m easurement (mass/volume)on 05-16-2022 Creatinine [Mass/Vol] 0.89 mg/dL 0.55-1.02 [facility] Work Phone: Comment on above: The validity of the calculated GFR & GFRAA in patients over 70 years has not been determined. Clinical correlation is essential. Serum or plasma urea nitroge n measurement (mass/volume)on 05-16-2022 Urea nitrogen [Mass/Vol] 16 mg/dL 7-18 [facility] Work Phone: Thin prep Papanicolaou smear with manual screeningon 05-16-2022 Thin prep Papanicolaou smear with manual screening 10 5-15 [facility] Work Phone: No Panel Informationon 05-15 Vitamin D 25-Hydroxy 80.9 ng/mL [facility] Work Phone: Comment on above: Vitamin D 25(OH) Sta tus Range Deficiency <20 ng/mL (50nmol/L) Insufficiency 20 - 30 ng/mL (50 - 75 nmol/L) Sufficiency 30 - 100 ng/mL (75 - 250 nmol/L) Toxicity >100 ng/mL (>250 nmol/L) Basophil percentageon 2021 Basophil percentage 0 SEEN /hpf 0-5 [facility] Work Phone: Bilirubin Test strip Ql (U)o n 05-14-2022 Bilirubin Ql (U) Negative Negative [facility] Work Phone: Ketones Test strip Ql (U)on 05-14-2022 Ketones Ql (U) Negative Negative [facility] Work Phone: Mucus LM Ql (Urine sed)on Mucus Ql (Urine sed) 0 SEEN /hpf [facility] Work Phone: Nitrite Test strip Ql (U)on 05-14-2022 Nitrite Ql (U) Negative Negative [facility] Work Phone: Protein Test strip Ql (U)on 05-14-2022 Protein Ql (U) Negative Negative [facility] Work Phone: Squamous epithelial cells de tection in urine sediment by light microscopyon 05-14-2022 Epithelial cells.squamous LM Ql (Urine sed) 0 SEEN /hpf 5-10 [facility] Work Phone: Urine blood detectionon 04-27 RBC Ql (U) 10 /ul Negative [facility] Work Phone: RBC Ql (U) 0 SEEN /hpf 0-5 [facility] Work Phone: Urine clarityon 05-14-2022 Clarity (U) Clear Clear [facility] Work Phone: Urine color determinationon 05-14-2022 Color (U) Yellow Yellow [facility] Work Phone: Urine glucose detectionon Glucose Ql (U) Normal mg/dl Normal [facility] Work Phone: Urine leukocyte esterase det ection by dipstickon 05-14-2022 Leukocyte esterase Test strip Ql (U) Negative Negative [facility] Work Phone: Urine pHon 05-14-2022 pH (U) 6.0 [pH] 5.0 - 8.0 [facility] Work Phone: Urine sediment bacteria coun t by microscopy (number/high power field)on 05-14-2022 Bacteria LM.HPF (Urine sed) [#/Area] 0 /[HPF] None Seen [facility] Work Phone: Urine specific gravity measu rementon 05-14-2022 Specific gravity (U) [Rel density] 1.010 1.002-1.030 [facility] Work Phone: Urobilinogen Auto test strip Ql (U)on 05-14-2022 Urobilinogen Ql (U) Normal mg/dl Normal [facility] Work Phone: Absolute lymphocyte counton 05-13-2022 Lymphocytes Auto (Unsp spec) [#/Vol] 1.07 10*3/uL 0.83-4.51 [facility] Work Phone: Basophil percentageon 2021 Basophils/100 WBC (Bld) 0.6 % 0-1 [facility] Work Phone: Chloride [Moles/Vol] 106 mmol/L 98-107 [facility] Work Phone: Eosinophils/100 WBC (Bld) 1.5 % 0-5 [facility] Work Phone: Glucose [Mass/Vol] 100 mg/dL 74-106 [facility] Work Phone: Comment on above: Fasting Glucose resu lt from 100 to 125 mg/dL suggests IMPAIRED HOMEOSTASIS per A.D.A. criteria. Neutrophils (Bld) [#/Vol] 8.2 10*3/uL 2.0-7.7 [facility] Work Phone: Neutrophils/100 WBC (Bld) 78.8 % 47-70 [facility] Work Phone: Potassium [Moles/Vol] 3.8 mmol/L 3.5-5.1 [facility] Work Phone: Sodium [Moles/Vol] 142 mmol/L 136-145 [facility] Work Phone: WBC (Bld) [#/Vol] 10.4 10*3/uL 4.4-11.0 [facility] Work Phone: Blood erythrocytes count (nu mber/volume)on 05-13-2022 RBC (Bld) [#/Vol] 3.70 10*6/uL 4.2-5.4 [facility] Work Phone: Blood hemoglobin measurement (mass/volume)on 05-13-2022 Hemoglobin (Bld) [Mass/Vol] 11.3 g/dL 12.0-15.0 [facility] Work Phone: Blood lymphocytes/100 leukoc yteson 05-13-2022 Lymphocytes/100 WBC (Bld) 10.3 % 19-41 [facility] Work Phone: Blood monocytes/100 leukocyt eson 05-13-2022 Monocytes/100 WBC (Bld) 8.2 % 0-10 [facility] Work Phone: Blood platelet mean volumeon 05-13-2022 Platelet mean volume (Bld) [Entitic vol] 10.0 fL 6.2-12.0 [facility] Work Phone: Determination of erythrocyte mean corpuscular volume (MCV)on 05-13-2022 MCV (RBC) [Entitic vol] 98.6 fL 81-99 [facility] Work Phone: Hematocrit Auto (Bld) [Volum e fraction]on 05-13-2022 Hematocrit (Bld) [Volume fraction] 36.5 % 37-47 [facility] Work Phone: Laboratory - Chemistry and C hemistry - challengeon 05-13-2022 CO2 [Moles/Vol] 28.0 mmol/L 21.0-32.0 [facility] Work Phone: Urea nitrogen/Creatinine [Mass ratio] 19.4 mg/mg 10-20 [facility] Work Phone: Laboratory - Hematology and Cell countson 05-13-2022 Erythrocyte distribution width (RBC) [Entitic vol] 54.5 fL 35.1-43.9 [facility] Work Phone: Erythrocyte distribution width (RBC) [Ratio] 15.1 % 11.6-14.6 [facility] Work Phone: Immature granulocytes/100 WBC (Bld) 0.600 % 0.0-0.9 [facility] Work Phone: Comment on above: IG% - Immature Granu locytes (promyelocytes, myelocytes and metamyelocytes) > 1% indicates that a LEFT SHIFT is Present. MCH (RBC) [Entitic mass] 30.5 pg 27.0-32.0 [facility] Work Phone: Nucleated RBC/100 WBC (Bld) [Ratio] 0 % 0-5 [facility] Work Phone: MCHC Auto (RBC) [Mass/Vol]on 05-13-2022 MCHC (RBC) [Mass/Vol] 31.0 g/dL 32-36 [facility] Work Phone: No Panel Informationon 05-13 Estimated Creatinine Clearance Calc 45.36 ml/min [facility] Work Phone: Estimated GFR (MDRD) Amer 54 mL/min >60 [facility] Work Phone: Comment on above: GFR Calc Estimated GFR (MDRD) Non-Af Amer 45 mL/min >60 [facility] Work Phone: Comment on above: Non- GFR Calc Platelets bldon 05-13-2022 Platelets (Bld) [#/Vol] 214 10*3/uL 150-450 [facility] Work Phone: Serum or plasma calcium chay urement (mass/volume)on 05-13-2022 Calcium [Mass/Vol] 10.8 mg/dL 8.5-10.1 [facility] Work Phone: Serum or plasma creatinine m easurement (mass/volume)on 05-13-2022 Creatinine [Mass/Vol] 1.24 mg/dL 0.55-1.02 [facility] Work Phone: Comment on above: The validity of the calculated GFR & GFRAA in patients over 70 years has not been determined. Clinical correlation is essential. Serum or plasma urea nitroge n measurement (mass/volume)on 05-13-2022 Urea nitrogen [Mass/Vol] 24 mg/dL 7-18 [facility] Work Phone: Thin prep Papanicolaou smear with manual screeningon 05-13-2022 Thin prep Papanicolaou smear with manual screening 8 5-15 [facility] Work Phone: Basophil percentageon 2021 Chloride [Moles/Vol] 107 mmol/L 98-107 [facility] Work Phone: Cholesterol [Mass/Vol] 145 mg/dL <200 [facility] Work Phone: Comment on above: <200 mg/dL Desirable 200-240 mg/dL Borderline >240 mg/dL High Risk Glucose [Mass/Vol] 145 mg/dL 74-106 [facility] Work Phone: Comment on above: Fasting Glucose resu lt greater than or equal to 126 mg/dL suggests DIABETES MELLITUS per A.D.A. criteria. Potassium [Moles/Vol] 3.6 mmol/L 3.5-5.1 [facility] Work Phone: Sodium [Moles/Vol] 140 mmol/L 136-145 [facility] Work Phone: Triglyceride [Mass/Vol] 81 mg/dL <199 [facility] Work Phone: Comment on above: The drugs N-Acetylcy steine and Metamizole may falsely depress this assay.Serum Triglycerides Reference Interval Normal <150 mg/dL Borderline high 150 - 199 mg/dL High 200 - 499 mg/dL Very High > or = 500 mg/dL WBC (Bld) [#/Vol] 6.2 10*3/uL 4.4-11.0 [facility] Work Phone: Blood erythrocytes count (nu mber/volume)on 04-03-2022 RBC (Bld) [#/Vol] 3.81 10*6/uL 4.2-5.4 [facility] Work Phone: Blood hemoglobin measurement (mass/volume)on 04-03-2022 Hemoglobin (Bld) [Mass/Vol] 11.9 g/dL 12.0-15.0 [facility] Work Phone: Blood platelet mean volumeon 04-03-2022 Platelet mean volume (Bld) [Entitic vol] 9.9 fL 6.2-12.0 [facility] Work Phone: Determination of erythrocyte mean corpuscular volume (MCV)on 04-03-2022 MCV (RBC) [Entitic vol] 96.3 fL 81-99 [facility] Work Phone: Hematocrit Auto (Bld) [Volum e fraction]on 04-03-2022 Hematocrit (Bld) [Volume fraction] 36.7 % 37-47 [facility] Work Phone: Laboratory - Chemistry and C hemistry - challengeon 04-03-2022 CO2 [Moles/Vol] 29.0 mmol/L 21.0-32.0 [facility] Work Phone: Magnesium [Mass/Vol] 2.5 mg/dL 1.6-2.6 [facility] Work Phone: Urea nitrogen/Creatinine [Mass ratio] 22.8 mg/mg 10-20 [facility] Work Phone: Laboratory - Hematology and Cell countson 04-03-2022 Erythrocyte distribution width (RBC) [Entitic vol] 53.6 fL 35.1-43.9 [facility] Work Phone: Erythrocyte distribution width (RBC) [Ratio] 15.2 % 11.6-14.6 [facility] Work Phone: MCH (RBC) [Entitic mass] 31.2 pg 27.0-32.0 [facility] Work Phone: MCHC Auto (RBC) [Mass/Vol]on 04-03-2022 MCHC (RBC) [Mass/Vol] 32.4 g/dL 32-36 [facility] Work Phone: No Panel Informationon 04-03 Estimated GFR (MDRD) Amer 60 mL/min >60 [facility] Work Phone: Comment on above: GFR Calc Estimated GFR (MDRD) Non-Af Amer 49 mL/min >60 [facility] Work Phone: Comment on above: Non- GFR Calc Platelets bldon 04-03-2022 Platelets (Bld) [#/Vol] 268 10*3/uL 150-450 [facility] Work Phone: Serum or plasma calcium chay urement (mass/volume)on 04-03-2022 Calcium [Mass/Vol] 10.3 mg/dL 8.5-10.1 [facility] Work Phone: Serum or plasma cholesterol in HDL measurement (mass/volume)on 04-03-2022 Cholesterol in HDL [Mass/Vol] 67 mg/dL >40 [facility] Work Phone: Comment on above: The drugs N-Acetylcy steine and Metamizole may falsely depress this assay. Reference Range HDL <40 mg/dL Low HDL Cholesterol HDL >or= 60 mg/dL High HDL Cholesterol Serum or plasma cholesterol in VLDL measurement (mass/volume)on 04-03-2022 Cholesterol in VLDL [Mass/Vol] 16 mg/dL 5-40 [facility] Work Phone: Serum or plasma creatinine m easurement (mass/volume)on 04-03-2022 Creatinine [Mass/Vol] 1.14 mg/dL 0.55-1.02 [facility] Work Phone: Comment on above: The validity of the calculated GFR & GFRAA in patients over 70 years has not been determined. Clinical correlation is essential. Serum or plasma low density lipoprotein (LDL) cholesterol measurement (mass/volume)on 04-03-2022 Cholesterol in LDL [Mass/Vol] 62 mg/dL 0-130 [facility] Work Phone: Serum or plasma urea nitroge n measurement (mass/volume)on 04-03-2022 Urea nitrogen [Mass/Vol] 26 mg/dL 7-18 [facility] Work Phone: Thin prep Papanicolaou smear with manual screeningon 04-03-2022 Thin prep Papanicolaou smear with manual screening 4 5-15 [facility] Work Phone: Absolute lymphocyte counton 02-06-2022 Lymphocytes Auto (Unsp spec) [#/Vol] 1.14 10*3/uL 0.83-4.51 [facility] Work Phone: Basophil percentageon 2021 Basophils/100 WBC (Bld) 0.7 % 0-1 [facility] Work Phone: Eosinophils/100 WBC (Bld) 5.6 % 0-5 [facility] Work Phone: Neutrophils (Bld) [#/Vol] 4.6 10*3/uL 2.0-7.7 [facility] Work Phone: Neutrophils/100 WBC (Bld) 67.5 % 47-70 [facility] Work Phone: WBC (Bld) [#/Vol] 6.8 10*3/uL 4.4-11.0 [facility] Work Phone: Blood erythrocytes count (nu mber/volume)on 02-06-2022 RBC (Bld) [#/Vol] 3.89 10*6/uL 4.2-5.4 [facility]: Blood hemoglobin measurement (mass/volume)on 02-06-2022 Hemoglobin (Bld) [Mass/Vol] 12.0 g/dL 12.0-15.0 [facility] Work Phone: Blood lymphocytes/100 leukoc yteson 02-06-2022 Lymphocytes/100 WBC (Bld) 16.7 % 19-41 [facility] Work Phone: Blood monocytes/100 leukocyt eson 02-06-2022 Monocytes/100 WBC (Bld) 8.9 % 0-10 [facility] Work Phone: Blood platelet mean volumeon 02-06-2022 Platelet mean volume (Bld) [Entitic vol] 10.7 fL 6.2-12.0 [facility] Work Phone: Determination of erythrocyte mean corpuscular volume (MCV)on 02-06-2022 MCV (RBC) [Entitic vol] 98.2 fL 81-99 [facility] Work Phone: Hematocrit Auto (Bld) [Volum e fraction]on 02-06-2022 Hematocrit (Bld) [Volume fraction] 38.2 % 37-47 [facility] Work Phone: Laboratory - Hematology and Cell countson 02-06-2022 Erythrocyte distribution width (RBC) [Entitic vol] 53.9 fL 35.1-43.9 [facility] Work Phone: Erythrocyte distribution width (RBC) [Ratio] 15.0 % 11.6-14.6 [facility] Work Phone: Immature granulocytes/100 WBC (Bld) 0.600 % 0.0-0.9 [facility] Work Phone: Comment on above: IG% - Immature Granu locytes (promyelocytes, myelocytes and metamyelocytes) > 1% indicates that a LEFT SHIFT is Present. MCH (RBC) [Entitic mass] 30.8 pg 27.0-32.0 [facility] Work Phone: Nucleated RBC/100 WBC (Bld) [Ratio] 0 % 0-5 [facility] Work Phone: MCHC Auto (RBC) [Mass/Vol]on 02-06-2022 MCHC (RBC) [Mass/Vol] 31.4 g/dL 32-36 [facility] Work [facility]: Platelets bldon 02-06-2022 Platelets (Bld) [#/Vol] 220 10*3/uL 150-450 [facility] Work Phone: Basophil percentageon 2021 Chloride [Moles/Vol] 107 mmol/L 98-[address] [facility] Work Phone: Cholesterol [Mass/Vol] 178 mg/dL <200 [facility] Work Phone: Comment on above: <200 mg/dL Desirable 200-240 mg/dL Borderline >240 mg/dL High Risk Glucose [Mass/Vol] 106 mg/dL 74-106 [facility] Work Phone: Comment on above: Fasting Glucose resu lt from 100 to 125 mg/dL suggests IMPAIRED HOMEOSTASIS per A.D.A. criteria. Potassium [Moles/Vol] 3.9 mmol/L 3.5-5.1 [facility] Work Phone: Sodium [Moles/Vol] 141 mmol/L 136-145 [facility] Work Phone: Triglyceride [Mass/Vol] 93 mg/dL <199 [facility] Work Phone: Comment on above: The drugs N-Acetylcy steine and Metamizole may falsely depress this assay.Serum Triglycerides Reference Interval Normal <150 mg/dL Borderline high 150 - 199 mg/dL High 200 - 499 mg/dL Very High > or = 500 mg/dL WBC (Bld) [#/Vol] 7.9 10*3/uL 4.4-11.0 [facility] Work Phone: Blood erythrocytes count (nu mber/volume)on 01-02-2022 RBC (Bld) [#/Vol] 4.32 10*6/uL 4.2-5.4 [facility] Work Phone: Blood hemoglobin measurement (mass/volume)on 01-02-2022 Hemoglobin (Bld) [Mass/Vol] 13.3 g/dL 12.0-15.0 [facility] Work Phone: Blood platelet mean volumeon 01-02-2022 Platelet mean volume (Bld) [Entitic vol] 10.7 fL 6.2-12.0 [facility] Work Phone: Determination of erythrocyte mean corpuscular volume (MCV)on 01-02-2022 MCV (RBC) [Entitic vol] 96.3 fL 81-99 [facility] Work Phone: Hematocrit Auto (Bld) [Volum e fraction]on 01-02-2022 Hematocrit (Bld) [Volume fraction] 41.6 % 37-47 [facility] Work Phone: Laboratory - Chemistry and C hemistry - challengeon 01-02-2022 CO2 [Moles/Vol] 26.0 mmol/L 21.0-32.0 [facility] Work Phone: Magnesium [Mass/Vol] 2.4 mg/dL 1.6-2.6 [facility] Work Phone: Urea nitrogen/Creatinine [Mass ratio] 24.5 mg/mg 10-20 [facility] Work Phone: Laboratory - Hematology and Cell countson 01-02-2022 Erythrocyte distribution width (RBC) [Entitic vol] 52.5 fL 35.1-43.9 [facility] Work Phone: Erythrocyte distribution width (RBC) [Ratio] 14.7 % 11.6-14.6 [facility] Work Phone: MCH (RBC) [Entitic mass] 30.8 pg 27.0-32.0 [facility] Work Phone: MCHC Auto (RBC) [Mass/Vol]on 01-02-2022 MCHC (RBC) [Mass/Vol] 32.0 g/dL 32-36 [facility] Work Phone: No Panel Informationon 01-02 Estimated GFR (MDRD) Amer 48 mL/min >60 [facility] Work Phone: Comment on above: GFR Calc Estimated GFR (MDRD) Non-Af Amer 39 mL/min >60 [facility] Work Phone: Comment on above: Non- GFR Calc Platelets bldon 01-02-2022 Platelets (Bld) [#/Vol] 249 10*3/uL 150-450 [facility] Work Phone: Serum or plasma calcium chay urement (mass/volume)on 01-02-2022 Calcium [Mass/Vol] 10.2 mg/dL 8.5-10.1 [facility] Work Phone: Serum or plasma cholesterol in HDL measurement (mass/volume)on 01-02-2022 Cholesterol in HDL [Mass/Vol] 63 mg/dL >40 [facility] Work Phone: Comment on above: The drugs N-Acetylcy steine and Metamizole may falsely depress this assay. Reference Range HDL <40 mg/dL Low HDL Cholesterol HDL >or= 60 mg/dL High HDL Cholesterol Serum or plasma cholesterol in VLDL measurement (mass/volume)on 01-02-2022 Cholesterol in VLDL [Mass/Vol] 19 mg/dL 5-40 [facility] Work Phone: Serum or plasma creatinine m easurement (mass/volume)on 01-02-2022 Creatinine [Mass/Vol] 1.39 mg/dL 0.55-1.02 [facility] Work Phone: Comment on above: The validity of the calculated GFR & GFRAA in patients over 70 years has not been determined. Clinical correlation is essential. Serum or plasma low density lipoprotein (LDL) cholesterol measurement (mass/volume)on 01-02-2022 Cholesterol in LDL [Mass/Vol] 96 mg/dL 0-130 [facility] Work Phone: Serum or plasma urea nitroge n measurement (mass/volume)on 01-02-2022 Urea nitrogen [Mass/Vol] 34 mg/dL 7-18 [facility] Work Phone: Thin prep Papanicolaou smear with manual screeningon 01-02-2022 Thin prep Papanicolaou smear with manual screening 8 5-15 [facility] Work Phone: Absolute lymphocyte counton 09-26-2021 Lymphocytes Auto (Unsp spec) [#/Vol] 1.40 10*3/uL 0.83-4.51 [facility] Work Phone: Basophil percentageon 2021 Basophils/100 WBC (Bld) 1.2 % 0-1 [facility] Work Phone: Bilirubin [Mass/Vol] 0.30 mg/dL 0.20-1.00 [facility] Work Phone: Comment on above: For patients on eltr ombopag therapy, use of Dimension [place] TBIL is not recommended. Chloride [Moles/Vol] 106 mmol/L 98-107 [facility] Work Phone: Eosinophils/100 WBC (Bld) 6.7 % 0-5 [facility] Work Phone: Glucose [Mass/Vol] 116 mg/dL 74-106 [facility] Work Phone: Comment on above: Fasting Glucose resu lt from 100 to 125 mg/dL suggests IMPAIRED HOMEOSTASIS per A.D.A. criteria. Neutrophils (Bld) [#/Vol] 3.3 10*3/uL 2.0-7.7 [facility] Work Phone: Neutrophils/100 WBC (Bld) 57.2 % 47-70 [facility] Work Phone: Potassium [Moles/Vol] 3.6 mmol/L 3.5-5.1 [facility] Work Phone: Protein [Mass/Vol] 7.1 g/dL 6.4-8.2 [facility] Work Phone: Sodium [Moles/Vol] 139 mmol/L 136-145 [facility] Work Phone: WBC (Bld) [#/Vol] 5.8 10*3/uL 4.4-11.0 [facility] Work Phone: Blood erythrocytes count (nu mber/volume)on 09-26-2021 RBC (Bld) [#/Vol] 4.07 10*6/uL 4.2-5.4 [facility] Work Phone: Blood hemoglobin measurement (mass/volume)on 09-26-2021 Hemoglobin (Bld) [Mass/Vol] 12.3 g/dL 12.0-15.0 [facility] Work Phone: Blood lymphocytes/100 leukoc yteson 09-26-2021 Lymphocytes/100 WBC (Bld) 24.0 % 19-41 [facility] Work Phone: Blood monocytes/100 leukocyt eson 01-31-2022 Monocytes/100 WBC (Bld) 10.4 % 0-10 [facility] Work Phone: Blood platelet mean volumeon 09-26-2021 Platelet mean volume (Bld) [Entitic vol] 10.7 fL 6.2-12.0 [facility] Work Phone: Determination of erythrocyte mean corpuscular volume (MCV)on 09-26-2021 MCV (RBC) [Entitic vol] 97.3 fL 81-99 [facility] Work Phone: Hematocrit Auto (Bld) [Volum e fraction]on 09-26-2021 Hematocrit (Bld) [Volume fraction] 39.6 % 37-47 [facility] Work Phone: Laboratory - Chemistry and C hemistry - challengeon 09-26-2021 ALP [Catalytic activity/Vol] 55 U/L 45-117 [facility] Work Phone: ALT [Catalytic activity/Vol] 17 U/L 13-56 [facility] Work Phone: CO2 [Moles/Vol] 27.0 mmol/L 21.0-32.0 [facility] Work Phone: Globulin (S) [Mass/Vol] 3.8 g/dL 2.2-4.2 [facility] Work Phone: Magnesium [Mass/Vol] 2.5 mg/dL 1.6-2.6 [facility] Work Phone: Urea nitrogen/Creatinine [Mass ratio] 29.7 mg/mg 10-20 [facility] Work Phone: Laboratory - Hematology and Cell countson 09-26-2021 Erythrocyte distribution width (RBC) [Entitic vol] 53.7 fL 35.1-43.9 [facility] Work Phone: Erythrocyte distribution width (RBC) [Ratio] 15.0 % 11.6-14.6 [facility] Work Phone: Immature granulocytes/100 WBC (Bld) 0.500 % 0.0-0.9 [facility] Work Phone: Comment on above: IG% - Immature Granu locytes (promyelocytes, myelocytes and metamyelocytes) > 1% indicates that a LEFT SHIFT is Present. MCH (RBC) [Entitic mass] 30.2 pg 27.0-32.0 [facility] Work Phone: Nucleated RBC/100 WBC (Bld) [Ratio] 0 % 0-5 [facility] Work Phone: MCHC Auto (RBC) [Mass/Vol]on 09-26-2021 MCHC (RBC) [Mass/Vol] 31.1 g/dL 32-36 [facility] Work Phone: No Panel Informationon 09-26 Estimated GFR (MDRD) Amer 62 mL/min >60 [facility] Work Phone: Comment on above: GFR Calc Estimated GFR (MDRD) Non-Af Amer 51 mL/min >60 [facility] Work Phone: Comment on above: Non- GFR Calc Platelets bldon 09-26-2021 Platelets (Bld) [#/Vol] 253 10*3/uL 150-450 [facility] Work Phone: Serum or plasma albumin chay urement (mass/volume)on 09-26-2021 Albumin [Mass/Vol] 3.3 g/dL 3.2-5.0 [facility] Work Phone: Serum or plasma albumin/glob ulin mass ratioon 09-26-2021 Albumin/Globulin [Mass ratio] 0.9 {ratio} 0.9-2.4 [facility] Work Phone: Serum or plasma calcium chay urement (mass/volume)on 09-26-2021 Calcium [Mass/Vol] 10.3 mg/dL 8.5-10.1 [facility] Work Phone: Serum or plasma creatinine m easurement (mass/volume)on 09-26-2021 Creatinine [Mass/Vol] 1.11 mg/dL 0.55-1.02 [facility] Work Phone: Comment on above: The validity of the calculated GFR & GFRAA in patients over 70 years has not been determined. Clinical correlation is essential. Serum or plasma urea nitroge n measurement (mass/volume)on 09-26-2021 Urea nitrogen [Mass/Vol] 33 mg/dL 7-18 [facility] Work Phone: Thin prep Papanicolaou smear with manual screeningon 09-26-2021 Thin prep Papanicolaou smear with manual screening 14 U/L 15-37 [facility] Work Phone: Thin prep Papanicolaou smear with manual screening 6 5-15 [facility] Work Phone: OT Bone Density DEXA Axial S keletonon 12-05-2018 OT Bone Density DEXA Axial Skeleton Patient Name: KAMILAH MCKEON Bone Density Exam Date/Time 12/05/2018 09:14:55 EDT Exam OT Bone Density DEXA Axial Skeleton Ordering Physician MD CARY, LUAN HARRIS Accession Number [id number] CPT4 Codes 85585 () Reason For Exam age-related osteoporosis without current pathological fracture Report DXA BONE DENSITOMETRY: CLINICAL INDICATION: Asymptomatic post-menopausal status. Screening for osteoporosis. COMPARISON: 11/30/2016 TECHNIQUE: Quantitative bone mineral densitometry of the hip and lumbar spine was performed with a dual energy x-ray observed absorptiometry device - [employer] at some institutions, HOLOGIC at others. Regions [...] recommendations for prevention of bone loss include: 8830-3913 mg calcium intake per day for adults [...] [place] of Knowledge Evidence - based Summaries. [facility] Hospital[facility] Education and Research 2017. Report Dictated on Workstation: [employer] Final Dictating Physician: MD SOLOMON JEFFREY Signed Date and Time: 12/05/2018 9:53 am Signed by: MD SOLOMON JEFFREY Transcribed Date and Time: 12/05/2018 9:54 Normal [facility] MG Breast Tomosynthesis Scr Blon 06-10-2018 MG Breast Tomosynthesis Scr Bl Patient Name: KAMILAH MCKEON Mammography Exam Date/Time 06/10/2018 11:56:45 EDT Exam MG Breast Tomosynthesis BI Scr Ordering Physician MD CARY, LUAN HARRIS Accession Number [id number] CPT4 Codes 34375 (MG Breast Tomosynthesis Scr Bl), 38210 (MG MAMMO 2D SCREENING) Reason For Exam [...] MG breast tomosynthesis bl scr performed at [facility]. May 11, 2016, bilateral screening mammogram performed at [facility]. April 28, 2015, bilateral screening mammogram performed at [facility]. May 20, 2014, bilateral screening mammogram, [...] images: BB's = Nipples; skin lesions Open port lions = Palpable Line = Scar 2D digital [...] pm Signed by: MD MCADAMS KERISTEN L [facility] US Venous Extremity LT lower on 02-04-2018 US Venous Extremity LT lower Patient Name: KAMILAH MCKEON Ultrasound Exam Date/Time 02/04/2018 16:20:19 EDT Exam US Venous Extremity LT lower Ordering Physician SAGRARIO TRAORE HOLLY S Accession Number [id number] CPT4 Codes 76256 (US Venous Extremity LT lower) Reason For [...] called to the referring physician by the soil technologist following completion of the examination. Report Dictated on Final Dictating Physician: MD FONTAINE HARLAN Signed Date and Time: 02/04/2018 5:31 pm Signed by: MD FONTAINE HARLAN Transcribed Date and Time: 02/04/2018 5:32 Normal [facility] COVID-19 virus antigen assay SARS-CoV-2 (COVID-19) Ag IA.rapid Ql (Resp) [facility] Work Phone: Culture, urine Bacteria identified Cx Nom (U) Mixed Gram Pos & Gram Neg Org [facility] Work Phone: Vital Signs Date Time Vital Sign Value Performing Clinician Faci lity 08-23-2022 11:15-0500 Body temperature 97.9 [degF] Dr. Gerda Wilks [facility] 08-23-2022 11:15-0500 Diastolic blood pressure 77 mm[Hg] Dr. Gerda Wilks [facility] 08-23-2022 11:15-0500 Heart rate 77 /min Dr. Gerda Wilks [facility] 08-23-2022 11:15-0500 Respiratory rate 16 /[facility]-2022 11:15-0500 SaO2% (BldA) [Mass fraction] 93 % Dr. Gerda Wilks [facility] 08-23-2022 11:15-0500 Systolic blood pressure 128 mm[Hg] Dr. Gerda Wilks [facility] 08-23-2022 09:22-0500 Body height 144.[address] Gerda Wilks [facility] 08-23-2022 09:22-0500 Body mass index (BMI) [Ratio] 31.6 kg/m2 Dr. Gerda Wilks [facility] 08-23-2022 09:22-0500 Body weight [facility] [facility]-10-2022 08:35-0500 Body temperature 97.4 [degF] [facility] 07-10-2022 08:35-0500 [facility] 64 [facility] 08:35-0500 Heart rate 88 /[facility] 07-10-2022 08:35-0500 Respiratory rate 16 /[facility] 07-10-2022 08:35-0500 SaO2% (BldA) [Mass fraction] 95 % [facility]-10-2022 08:35-0500 Systolic blood pressure 116 mm[facility] 07-10-2022 03:49-0500 Body weight 68.[address] Gerda Wilks [facility] 07-09-2022 13:44-0500 Body height 144.[address] [facility] Work Phone: 07-08-2022 14:17-0500 Body mass index (BMI) [Ratio] 34.2 kg/m2 Dr. Gerda Wilks [facility] 07-08-2022 11:00-0500 Body height 144.[address] Gerda Wilks [facility] Work Phone: 07-08-2022 11:00-0500 Body mass index (BMI) [Ratio] 35.4 kg/m2 Dr. Gerda Wilks [facility] Work Phone: 07-08-2022 11:00-0500 Body temperature 97.7 [degF] Dr. Gerda Wilks [facility] Work Phone: 07-08-2022 11:00-0500 Body weight 74.[address] [facility] Work [facility] 07-08-2022 11:00-0500 Diastolic blood pressure 68 mm[facility] 07-08-2022 11:00-0500 Heart rate 89 /[facility] Work [facility] 07-08-2022 11:00-0500 Respiratory rate 16 /[facility] Work Phone: 07-08-2022 11:00-0500 SaO2% (BldA) [Mass fraction] 94 % [facility] 07-08-2022 11:00-0500 Systolic blood pressure 93 mm[Hg] Dr. Gerda Wilks [facility] Work Phone: 06-29-2022 05:28-0400 Diastolic blood pressure 46 mm[Hg] Dr. Gerda Wilks [facility] 06-29-2022 05:28-0400 Heart rate 95 /min Dr. Gerda Wilks [facility] 06-29-2022 05:28-0400 Respiratory rate 15 /min Dr. Gerda Wilks [facility] 06-29-2022 05:28-0400 SaO2% (BldA) [Mass fraction] 94 % Dr. Gerda Wilks [facility] 06-29-2022 05:28-0400 Systolic blood pressure 111 mm[Hg] Dr. Gerda Wilks [facility] 06-28-2022 23:44-0400 Body height 144.[address] Gerda Wilks [facility] Work Phone: 06-28-2022 23:44-0400 Body mass index (BMI) [Ratio] 35.2 kg/m2 Dr. Gerda Wilks [facility] 06-28-2022 23:44-0400 Body temperature 97.6 [degF] Dr. Gerda Wilks [facility] 06-28-2022 23:44-0400 Body weight 73.[address] [facility] 05-15-2022 13:49-0400 Body temperature 98.1 [degF] [facility] Work Phone: 05-15-2022 13:49-0400 Diastolic blood pressure 57 mm[facility]Hg[facility] 05-15-2022 13:49-0400 Heart rate 88 /[facility] Work [facility]: 05-15-2022 13:49-0400 Respiratory rate 18 /[facility] Work Phone: 05-15-2022 13:49-0400 SaO2% (BldA) [Mass fraction] 98 % [facility] 05-15-2022 13:49-0400 Systolic blood pressure 113 mm[Hg] Dr. Gerda Wilks [facility] Work Phone: 05-13-2022 18:21-0400 Body height 144.[address] [facility] Work [facility]: 05-13-2022 18:21-0400 Body mass index (BMI) [Ratio] 34 kg/m2 Dr. Gerda Wilks [facility] Work Phone: 05-13-2022 18:21-0400 Body weight 71.[address] Gerda Wilks [facility] Work Phone: 05-13-2022 16:35-0400 Body temperature 98.5 [degF] Dr. Gerda Wilks [facility] Work Phone: 05-13-2022 16:35-0400 Diastolic blood pressure 88 mm[Hg] Dr. Gerda Wilks [facility] Work Phone: 05-13-2022 16:35-0400 Heart rate 102 /[facility] Work Phone: 05-13-2022 16:35-0400 Respiratory rate 20 /[facility] Work Phone: 05-13-2022 16:35-0400 SaO2% (BldA) [Mass fraction] 95 % Dr. Gerda Wilks [facility] Work Phone: 05-13-2022 16:35-0400 Systolic blood pressure 117 mm[Hg] Dr. Gerda Wilks [facility] Work Phone: 05-13-2022 14:27-0400 Body height 144.[address] Gerda Wilks [facility] Work Phone: 05-13-2022 14:27-0400 Body mass index (BMI) [Ratio] 34.9 kg/m2 Dr. Gerda Wilks [facility] Work Phone: 05-13-2022 14:27-0400 Body weight 73.[address] Gerda Wilks [facility] Work Phone: 2022 12:38-0400 Respiratory rate 18 /min [facility] Work Phone: 2022 10:20-0400 Body height 144.78 cm [facility] Work Phone: 2022 10:20-0400 Body mass index (BMI) [Ratio] 36.4 kg/m2 [facility] Work Phone: 2022 10:20-0400 Body temperature 97.8 [degF] [facility] Work Phone: 2022 10:20-0400 Body weight 76.4 kg [facility] Work Phone: 2022 10:20-0400 Diastolic blood pressure 73 mm[Hg] [facility] Work Phone: 2022 10:20-0400 Heart rate 83 /min [facility] Work Phone: 2022 10:20-0400 SaO2% (BldA) [Mass fraction] 96 % [facility] Work Phone: 2022 10:20-0400 Systolic blood pressure 132 mm[Hg] [facility] Work Phone: 09-26-2021 18:28-0500 Body height 162.56 cm [facility] Work Phone: 09-26-2021 18:28-0500 Body mass index (BMI) [Ratio] 30 kg/m2 [facility] Work Phone: 09-26-2021 18:28-0500 Body temperature 98.6 [degF] [facility] Work Phone: 09-26-2021 18:28-0500 Body weight 79.4 kg [facility] Work Phone: 09-26-2021 18:28-0500 Diastolic blood pressure 56 mm[Hg] [facility] Work Phone: 09-26-2021 18:28-0500 Heart rate 93 /min [facility] Work Phone: 09-26-2021 18:28-0500 Respiratory rate 20 /min [facility] Work Phone: 09-26-2021 18:28-0500 SaO2% (BldA) [Mass fraction] 95 % [facility] Work Phone: 09-26-2021 18:28-0500 Systolic blood pressure 138 mm[Hg] [facility] Work Phone: Encounters Encounter Date Encounter Type Care Provider Facility Start: 01-30-2025 ambulatory Gerda Gudla OLS Facili ty:[facility] Start: 08-15-2024 End: 08-15-2024 ambulatory Kendell ROJO Facility:[facility] Start: 07-09-2024 End: 07-10-2024 [facility] Start: 06-16-2024 End: 06-16-[facility] Start: 05-21-2024 End: 05-21-2024 [facility] Start: 05-16-2024 End: 05-16-2024 ambulatory Gerda Gudla OLS Facility:[facility] Start: 04-18-2024 ambulatory Gerda Gudla OLS Facili ty:[facility] Start: 03-21-2024 End: 03-21-2024 ambulatory Gerda Gudla OLS Facility:[facility] Start: 03-07-2024 End: 03-07-2024 ambulatory ENEDINA REGOTTI Neurology Comment on above: EMG Start: 03-07-2024 End: 03-07-2024 Patient encounter procedure Emg 1 Neur Nick Mc (Max Weight: 850) Neurology Start: 02-22-2024 ambulatory Gerda Gudla OLS Facili ty:[facility] Start: 12-03-2023 Telephone encounter Katina Bruno MD Work Phone: Neurology Comment on above: Blood Thinner Instru ctions for EMG Testing Start: 11-29-2023 End: 11-29-2023 ambulatory ENEDINA CANCHOLA Facility:[facility] Start: 11-29-2023 End: 11-29-2023 Patient encounter procedure Enedina Regvicky DELGADO Work Phone: Orthopaedics Comment on above: Carpal tunnel syndro me of right wrist (Primary Dx); Disturbance of skin sensation Start: 11-02-2023 End: 11-02-2023 ambulatory [facility] Work Phone: Start: 11-02-2023 End: 11-02-2023 Departed [facility] Start: 11-01-2023 End: 11-01-2023 ambulatory [facility] Work Phone: Start: 11-01-2023 End: 11-01-2023 Departed [facility] Start: 11-01-2023 Registered [facility] Start: 10-15-2023 End: 10-15-2023 ambulatory [facility] Work Phone: Start: 10-15-2023 End: 10-15-2023 Departed [facility] Start: 10-05-2023 End: 10-05-2023 Departed [facility] Start: 09-07-2023 End: 09-07-2023 ambulatory [facility] Work Phone: Start: 09-07-2023 End: 09-07-2023 Departed [facility] Start: 09-07-2023 Registered [facility] Start: 09-06-2023 End: 09-06-2023 ambulatory [facility] Work Phone: Start: 09-06-2023 End: 09-06-2023 Patient encounter procedure [facility] Work Phone: Start: 08-08-2023 End: 08-08-2023 ambulatory [facility] Work Phone: Start: 08-08-2023 End: 08-08-2023 Departed [facility] Start: 07-23-2023 End: 07-23-2023 ambulatory ENEDINA SRAVAN Facility:[facility] Start: 07-23-2023 End: 07-23-2023 Subsequent hospital visit by physician Radio Vaughan [facility] Work Phone: Radiology Comment on above: Pain [R52] Start: 07-12-2023 End: 07-12-2023 ambulatory [facility] Work Phone: Start: 07-12-2023 End: 07-12-2023 Departed [facility] Start: 07-12-2023 Registered [facility] Start: 07-05-2023 End: 07-05-2023 ambulatory [facility] Work Phone: Start: 07-05-2023 End: 07-05-2023 Departed [facility] Start: 06-26-2023 Orders Only Enedina perry PA-C Work Phone: [facility] Comment on above: Pain (Primary Dx) Start: 06-14-2023 End: 06-14-2023 ambulatory [facility] Work Phone: Start: 06-14-2023 End: 06-14-2023 Departed [facility] Start: 05-17-2023 End: 05-17-2023 Departed [facility] Start: 05-17-2023 Registered [facility] Start: 04-19-2023 End: 04-19-2023 ambulatory [facility] Work Phone: Start: 04-19-2023 End: 04-19-2023 Departed [facility] Start: 04-19-2023 Registered [facility] Start: 03-22-2023 End: 03-22-2023 ambulatory [facility] Work Phone: Start: 03-22-2023 End: 03-22-2023 Departed [facility] Start: 02-22-2023 Registered [facility] Start: 01-25-2023 End: 01-25-2023 ambulatory [facility] Work Phone: Start: 01-25-2023 End: 01-25-2023 Departed [facility] Start: 01-01-2023 End: 01-01-2023 ambulatory [facility] Work Phone: Start: 01-01-2023 End: 01-01-2023 Patient encounter procedure [facility] Start: 12-28-2022 End: 12-28-2022 Departed [facility] Start: 12-28-2022 Registered [facility] Start: 11-30-2022 End: 11-30-[address] Gerda Wilks [facility] Work Phone: Start: 11-30-2022 End: 11-30-[address] Gerda Wilks [facility] Start: 10-30-2022 End: 10-30-[address] Gerda Wilks [facility] Work Phone: Start: 10-30-2022 End: 10-30-[address] Gerda Wilks [facility] Start: 10-30-[address] Gerda Wilks [facility] Start: 10-30-2022 Dr. Gerda Wilks [facility] Start: 10-17-2022 End: 10-17-[address] [facility] Start: 10-17-2022 End: 10-17-[address] Gerda Wilks [facility] Start: 10-17-[address] [facility] Start: 10-17-2022 Dr. Gerda Wilks [facility] Start: 10-10-2022 End: 10-10-[address] [facility] Start: 10-10-2022 End: 10-10-[address] [facility] Start: 10-10-2022 Dr. Gerda Wilks [facility] Start: 10-04-2022 End: 10-04-[address] [facility] Start: 10-04-2022 End: 10-04-[address] Gerda Wilks [facility] Start: 10-04-2022 End: 10-04-2022 Dr. Gerda Wilks [facility] Start: 10-03-2022 End: 10-03-[address] Gerda Wilks [facility] Work Phone: Start: 10-03-2022 End: 10-03-[address] Gerda Wilks [facility] Start: 10-03-2022 End: 10-03-2022 Dr. Gerda Wilks [facility] Start: 09-26-2022 End: 09-26-[address] [facility] Start: 09-26-2022 End: 09-26-[address] [facility]: 09-26-[facility]22 End: [facility]: 09-19-2022 End: 09-19-[address] [facility] Start: 09-19-2022 End: 09[facility] Start: 09-12-2022 End: 09-12-[address] [facility] Start: 09-12-2022 End: 09-12-[address] [facility] Start: 09-12-2022 End: 09[facility]12[facility] Start: 09-05-2022 End: 09-05-[address] [facility] Start: 09-05-2022 End: 09-05-[address] [facility] Start: 09-05-[address] [facility] Start: 09-05-2022 End: 09-05-2022 Dr. Gerda Wilks [facility] Start: 08-29-2022 End: 08-29-[address] [facility] Start: 08-29-2022 End: 08-29-[address] [facility] Start: 08-29-[address] [facility] Start: 08-29-2022 End: 08-29-2022 Dr. Gerda Chicasa [facility] Start: 08-23-2022 Non-patient / Non-visit Dr. Gerda gentile [facility] Start: 08-23-2022 End: 08-23-2022 Admission to same day surgery center Dr. Gerda Wilks [facility] Start: 08-23-2022 End: 08-23-[address] Gerda Wilks [facility] Work Phone: Start: 08-23-2022 End: 08-23-2022 Dr. Gerda Wilks [facility] Start: 08-22-2022 End: 08-22-[address] Gerda Wilks [facility] Work Phone: Start: 08-22-2022 End: 08-22-[address] Gerda Wilks [facility] Start: 08-22-[address] [facility]: 08-22-2022 End: [facility] Start: 08-15-2022 End: 08-15-[address] [facility] Start: 08-15-[address] Gerda Wilks [facility] Start: 08-15-2022 End: 08[facility] Start: 08-08-2022 End: 08-08-[address] [facility] Start: 08-08-2022 End: 08-08-[address] [facility] Start: 08-08-[address] [facility] Start: 08-08-2022 End: 08-08-2022 Dr. Gerda Wilks [facility] Start: 08-01-2022 End: 08-01-[address] [facility] Start: 08-01-[address] [facility] Start: 08-01-2022 End: 08-01[facility] Start: 07-25-2022 End: 07-25-[address] [facility] Start: 07-25-2022 End: 07-25-[address] [facility] Start: 07-25-[address] [facility] Start: 07-25-2022 End: 07-25-2022 Dr. Gerda Wilks [facility] Start: 07-24-2022 End: 07-24-[address] [facility] Start: 07-24-2022 End: 07-24-2022 Dr. Gerda Wilks [facility] Start: 07-18-2022 End: 07-18-[address] [facility] Start: 07-18-2022 End: 07-18-[address] Gerda Wilks [facility] Start: 07-18-[address] [facility] Start: 07-18-2022 End: 07-18-2022 Dr. Gerda Wilks [facility] Start: 07-11-2022 End: 07-11-[address] Gerda [facility] Work Phone: Start: 07-11-2022 End: 07-11-[address] Gerda Wilks [facility] Start: 07-11-2022 End: 07-11-2022 Dr. Gerda Wilks [facility] Start: 07-10-2022 Non-patient / Non-visit Dr. Gerda Jenkins [facility] Start: 07-10-2022 Dr. Gerda Wilks [facility] Start: 07-09-2022 Non-patient / Non-visit Dr. Gerda Jenkins [facility] Start: 07-09-2022 Dr. Gerda Wilks [facility] Start: 07-09-2022 Non-patient / Non-visit Dr. Gerda Jenkins [facility] Start: 07-09-2022 Dr. Gerda Wilks [facility] Start: 07-08-2022 Non-patient / Non-visit Dr. Gerda Jenkins [facility] Start: 07-08-2022 End: 07-10-2022 Evaluation and management of inpatient Dr. Gerda Wilks [facility] Start: 07-08-2022 End: 07-10-[address] [facility] Start: 07-08-2022 End: 07-10-2022 [facility] Start: 07-03-2022 End: 07-03-[address] [facility] Start: 07-03-[address] [facility] Start: 07-03-2022 End: 07-03[facility] Start: 06-28-2022 End: 06-29-2022 Emergency department patient visit Dr. Gerda Wilks [facility] Start: 06-28-2022 End: 06-29-2022 Dr. Gerda Wilks [facility] Start: 06-26-[address] Gerda Wilks [facility] Start: 06-26-2022 Dr. Gerda Wilks [facility] Start: 06-21-[address] [facility] Start: 06-21-2022 Dr. Gerda Wilks [facility] Start: 06-20-[address] [facility] Start: 06-20-2022 Dr. Gerda Wilks [facility] Start: 06-13-2022 End: 06-13-[address] [facility] Start: 06-13-2022 End: 06-13-[address] [place] [address] Start: 06-13-[address] Gerda Wilks [place] [address] Start: 06-13-2022 End: 06-13-2022 Dr. Gerda Wilks [place] [address] Start: 06-06-2022 End: 06-06-[address] [facility] Start: 06-06-2022 End: 06-06-[address] Gerda Wilks [facility] [address] Start: 06-06-2022 End: 06-06-2022 [place] [address] Start: 06-04-2022 End: 06-04-[address] Gerda Wilks [place] [address] Start: 06-04-[address] Gerda Wilks [place] [address] Start: 06-04-2022 End: 06-04-2022 Dr. Gerda Wilks [place] [address] Start: 05-30-[address] Gerda Wilks [place] [address] Start: 05-30-2022 Dr. Gerda Wilks [place] [address] Start: 05-23-[address] [place] [address] Start: 05-23-2022 Dr. Gerda Wilks [place] [address] Start: 05-18-[address] Gerda Wilks [place] [address] Start: 05-16-[address] [place] [address] Start: 05-15-2022 Non-patient / Non-visit Dr. Gerda Jenkins [facility] Start: 05-14-2022 Non-patient / Non-visit Dr. Gerda Jenkins [facility] Start: 05-13-2022 Non-patient / Non-visit Dr. Gerda Jenkins [facility] Start: 05-13-2022 End: 05-15-2022 Evaluation and management of inpatient Dr. Gerda Wilks [facility] 3 Start: 05-13-2022 End: 05-15-[address] [facility] Start: 04-06-2022 End: 04-06-2022 Patient encounter procedure [facility] Start: 04-03-2022 End: 04-03-2022 Departed Referred [facility] Start: 2022 End: 2022 Emergency department patient visit [facility] Start: 02-06-2022 End: 02-06-2022 Departed Referred [facility] Start: 02-06-2022 Registered [facility] Start: 01-02-2022 End: 01-02-2022 Departed Referred [facility] Start: 12-15-2021 End: 12-15-2021 Patient encounter procedure [facility] Start: 09-26-2021 End: 09-26-2021 Emergency department patient visit [facility] Start: 09-26-2021 Registered [facility] Start: 12-05-2018 [facility] Start: 06-10-2018 [facility] encounter procedure [facility] Start: 02-04-2018 Patient encounter procedure UNKNOWN PROVIDER [facility] Procedures Date Procedure Procedure Detail Performing Clinician Start: 03-07-2024 Nerve conduction anival dies 5-6 studies Enedina WIN-C Work Phone: Start: 07-23-2023 Radex wrist complete [...] DTaP,Tdap,Td Vaccine (2 - Td or Tdap) [facility] Start: 04-27-2024 Covid-19 Vaccine () Covid-19 Vaccine () [facility] Start: 04-27-2024 Influenza vaccination C [facility] Start: 01-12-2024 Covid-19 Vaccine () Covid-19 Vaccine () [facility] Start: 08-27-2023 Advance Directive Discussion Advance Directive Discussion [facility] Start: 08-27-2023 Behavioral Health Screening Behavioral Health Screening [facility] Start: 04-27-2023 Influenza vaccination Influenza Vacc ine (#1) [facility] Start: 03-30-2023 Diabetes Screening Diabetes Screenin g [facility] Start: 08-27-2022 Advance Directive Discussion Advance Directive Discussion [facility] Start: 08-27-2022 Depression Assessment Depression Ass essment [facility] Start: 08-23-2022 Colsc flx w/rmvl of tumor polyp lesion snare tq [facility] Start: 08-23-2022 Patient discharge [facility] Start: 07-10-2022 Patient discharge [facility] Start: 07-10-2022 Referral to occupati onal therapist [facility] Start: 07-10-2022 Referral to service [facility] Start: 07-08-2022 Following clinical pathway protocol [facility] Start: 07-08-2022 Referral to general surgeon [facility] Start: 07-08-2022 Following clinical pathway protocol [facility] Start: 07-08-2022 Assessment of risk o f venous thromboembolism [facility] Start: 07-08-2022 Catheterization of vein [facility] Start: 07-08-2022 Insertion of cathete r into peripheral vein [facility] Start: 07-08-2022 Measuring intake and output [facility] Start: 07-08-2022 Providing care accor ding to [facility] Start: 07-08-2022 Provision of activit y privileges [facility] Start: 07-08-2022 [facility] Start: 07-08-2022 Admission procedure [facility] Start: 07-08-2022 [facility] Work Phone: Start: 07-08-2022 Patient referral to dietitian [facility] Start: 06-28-2022 Smpl repair scalp/neck/ax/genit/trunk 2.6-7.5cm [facility] Start: 05-15-2022 Patient discharge [facility] Work Phone: Start: 05-14-2022 Following clinical pathway protocol [facility] Work Phone: Start: 05-13-2022 Assessment of risk o f venous thromboembolism [facility] Work Phone: Start: 05-13-2022 Catheterization of vein [facility] Work Phone: Start: 05-13-2022 Insertion of cathete r into peripheral vein [facility] Work Phone: Start: 05-13-2022 Providing care accor ding to [facility] Work Phone: Start: 05-13-2022 Provision of activit y privileges [facility] Work Phone: Start: 05-13-2022 Referral to occupati onal therapist [facility] Work Phone: Start: 05-13-2022 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 to ferryboat pilot [facility] Work Phone: Start: 05-13-2022 Referral to service [facility] Work Phone: Start: 05-13-2022 [facility] Work Phone: Start: 05-13-2022 Verification routine [facility] Work Phone: Start: 05-13-2022 Admission procedure [facility] Work Phone: Start: 05-13-2022 Therapeutic injectio n iv push each new drug TX/PRO/DX INJ NEW DRUG ADDON [facility] Work Phone: Start: 05-13-2022 [facility] Work Phone: Start: 02-19-2012 Bone Density Screening Bone Density Screening [facility] Start: 02-19-2012 Pneumococcal Vaccine : 65+ (1 - PCV) Pneumococcal Vaccine: 65+ (1 - PCV) [facility] Start: 02-19-2012 Screening for osteoporosis Bone Density Screening [facility] Start: 2007 RSV Vaccine (1 - 1-d ose 60+ series) RSV Vaccine (1 - 1-dose 60+ series) [facility] Start: 1997 Shingrix Vaccine (1 of 2) Anaya grix Vaccine (1 of 2) [facility] Start: 02-19-1992 Diabetes Screening Diabetes Screenin g [facility] Start: 1966 Urine microalbumin profile DTaP,Tdap,Td Vaccine (1 - Tdap) [facility] Start: 1965 Anxiety Screening Anxiety Screening [facility] Start: 1965 Depression Screening Depression Scre ening [facility] Start: 1965 Hepatitis C Screening Hepatitis C [facility] Start: 1965 Hepatitis C screening Hepatitis C [facility] Start: 1947 Covid-19 Vaccine (#1) Covid-19 Vacci ne (#1) [facility] Bilirubin measuremen t, urine [facility] Work Phone: End: 11-28-2024 EMG(NEURO/NI) EMG(NEURO/NI) EMG Routine Carpal tunnel syndrome of right wrist Disturbance of skin sensation 1 Occurrences starting 11/29/2023 until 11/28/2024 [facility] Work Phone: Comment on above: 1 Occurrences starti ng 11/29/2023 until 11/28/2024 Hematocrit [Volume Fraction] of Blood [facility] Work Phone: Hemoglobin [Mass/vol ume] in Blood [facility] Work Phone: Hemoglobin [Presence ] in Urine [facility] Work Phone: Leukocytes [#/volume ] in Blood [facility] Work Phone: Mean corpuscular hemoglobin concentration determination [facility] Work Phone: Mean corpuscular hemoglobin determination [facility] Work Phone: Measurement of keton es in urine using dipstick [facility] Work Phone: Microscopic urinalysis [facility] Work Phone: Neutrophil count [facility] Work Phone: Neutrophil percent differential count [facility] Work Phone: Patient Education [facility] Work Phone: Patient referral [facility] Work Phone: pH of Urine [facility] Work Phone: Platelets [#/volume] in Blood [facility] Work Phone: Red blood cell count [facility] Work Phone: Red cell distributio n width determination [facility] Work Phone: Specific gravity of Urine [facility] Work Phone: Urinalysis, blood, qualitative [facility] Work Phone: Urine dipstick for glucose [facility] Work Phone: Urine dipstick for leukocyte esterase [facility] Work Phone: Urine dipstick for nitrite [facility] Work Phone: Urine dipstick for protein [facility] Work Phone: Urine examination [facility] Work Phone: Urine microscopy: epithelial cells [facility] Work Phone: Urine Microscopy: wh ite cells [facility] Work Phone: Urobilinogen [Presen ce] in Urine [facility] Work Phone: End: 07-25-2024 XR WRIST GENERAL 3V PA/LAT/OBL RIGHT XR WRIST GENERAL 3V PA/LAT/OBL RIGHT Radiology Routine Pain 1 Occurrences starting 06/26/2023 until 07/25/2024 [facility] Work Phone: Comment on above: 1 Occurrences starti ng 06/26/2023 until 07/25/2024 Zinc [Mass/volume] i n Serum or Plasma [facility] [facility] Immunizations Immunization Date Immunization Notes Care Provider Fa cility 07-09-2022 influenza, injectabl e, quadrivalent, preservative free [facility] 07-09-2022 influenza, seasonal, injectable Dr. Gerda Wilks [facility] 07-09-2022 influenza virus vaccine, unspecified formulation Enedina Canchola PA-C Work Phone: [facility] Payers Date Payer Category Payer Medicaid [id number] 2024 Self-pay [id number] 2023 Medicaid [facility] MEDICAID MYC ARE [facility] MEDICAID [id number] 2023-Present [phone] [address] [place] [address] Medicaid [id number] 2023 Medicare [facility] MEDICARE [facility] MEDICARE ADVANTAGE PPO [id number] 2023-Present [phone] [address] [address] [place] [address] PPO [id number] 2023 Unknown [id number] 2023 Unknown [id number] 1945 Unknown [id number] 1945 Unknown [id number] 668 1945 Unknown [id number] 668 Medicare [id number] Private Health Insurance [id number] Unknown Unknown [id number] Unknown [id number] Unknown [id number] 462 Unknown [id number] 462 Unknown [id number] 462 Unknown [id number] 462 Unknown [id number] 462 Unknown [id number] 462 Unknown [id number] 462 Unknown [id number] 462 Social History Date Type Detail Facility Start: 09-26-2021 End: 08-22-2022 Tobacco smoking status KSIS Unknown if ever smoked [facility] Start: 1945 Sex Assigned At Female [facility] Start: 1945 Sex Assigned At Not on file [facility] Start: 07-23-2023 End: 11-29-2023 Gender identity Not on file [facility] Start: 07-23-2023 Tobacco smoking status NHIS Never smoked tobacco [facility] Start: 07-23-2023 Tobacco use and exposure Former smokeless tobacco user [facility] Start: 07-23-2023 End: 11-29-2023 History of Social function [facility] National Score (1-100), lower number is lower risk 93 [facility] NEGATED: Highlighted row [facility] Goals Date Patient Goal Desired Activity /State Functional Status Date Assessment Result Facility 07-10-2022 Functional status Bedpan [facility] Work Phone: 05-15-2022 Functional status Bedrest [facility] Work Phone: Mental Status Date Assessment Result Facility 08-23-2022 Cognitive function Voice/Name [facility] Work Phone: 07-10-2022 Cognitive function Voice/Name [facility] Work Phone: 05-15-2022 Cognitive function Voice/Name;Touch/Shaki ng [facility] Work Phone: 05-15-2022 Cognitive function Comprehension Ability Demonstrates ability to follow instructions/comprehend [facility] Work Phone: Clinical Notes 07-23-2023 to 03-07-2024 Rubio Pena DO - 03/07/2024 11:42 AM EDTTelephone Simin - Laz Martínez - 12/03/2023 1:23 PM Enedina Gibson PA-C - 11/29/2023 11:28 AM EDT Note Date & Type Note Facility 03-07-2024 Note HNO ID: [id number] Author: RUBIO PENA DO Service: ? Author [...] Visit completed when applicable. Rubio Pena DO [facility] 03-07-2024 History of Presen t illness Narrative [...] Rubio Pena DO documented in this encounter [facility] 12-03-2023 Miscellaneous Notes Formattin g of this note might be different from the original. Spoke to Sandra at assisted living 12/03/23. Xarelto to be held for 24 hours prior to EMG testing with approval from prescribing physician. Laz Perez ([facility]) documented in this encounter [facility] 11-29-2023 Note HNO ID: [id number] Author: ENEDINA CANCHOLA PA-C Service: ? Author Type: Physician Home Office Representative Type: Progress Notes Filed: 11/29/2023 11:31 Note Text: Enedina Canchola PA-C Established Patient Department of Orthopaedics Orthopaedics [address] [place] [address] Dept: [phone] November 29, 2023 SUBJECTIVE: CHIEF COMPLAINT: Follow [...] and second digit. Phalen's: postive Tinel's: negative President And Ceo strength: 5/5 IMAGING: Not indicated ASSESSMENT: G56.01 Carpal tunnel syndrome of right wrist (primary encounter diagnosis) R20.9 Disturbance of skin sensation PLAN: Given her history of spinal trauma recommendation is EMG for persistent skin disturbation. Patient agreeable with plan. Advised I will call her to go over results and arrange appropriate follow up. FOLLOW UP INSTRUCTIONS: As appropriate after EMG Enedina Canchola PA-C [facility] 11-29-2023 History of Presen t illness Narrative Enedina Canchola PA-C Established Patient Department of Orthopaedics Orthopaedics [address] [place] [address] Dept: [phone] November 29, 2023 SUBJECTIVE: CHIEF COMPLAINT: Follow [...] and second digit. Phalen's: postive Tinel's: negative President And Ceo strength: 5/5 IMAGING: Not indicated ASSESSMENT: G56.01 [...] Enedina Canchola PA-C documented in this encounter [facility] 07-23-2023 Note HNO ID: [id number] Author: Enedina Canchola PA-C Service: ? 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 [facility] 07-23-2023 Note HNO ID: [id number] Author: Belkys [employer] Service: ? Author Type: Reset Merchandiser Type: Progress Notes Filed: 07/23/2023 1:35 PM [...] Karissa Gill July 23, 2023 1:34 PM [facility] 07-23-2023 History of Presen t illness Narrative [...] 2023 1:34 PM documented in this encounter [facility] Evaluation note No assessment inform ation available [facility] Work Phone: Evaluation note Diagnosis Onset Date Ankle fracture, right acute Contusion of face acute Fall acute [facility] Work Phone: Evaluation note* Diagnosis Onset Date Resolution Status Acute right ankle pain acute Ankle fracture, right acute Contusion of face acute Difficulty walking acute Fall acute [facility] Work Phone: Evaluation note* Diagnosis Onset Date Resolution Status Ankle fracture, right acute Difficulty walking acute Contusion of face resolved Fall resolved [facility] Work Phone: Evaluation note* Diagnosis Onset Date Resolution Status Ankle fracture, right acute Difficulty walking acute Contusion of face resolved Fall resolved Acute lower gastrointestinal bleeding acute Anticoagulated acute Visit for suture removal acu te [facility] Work Phone: Evaluation note* Diagnosis Onset Date Resolution Status Ankle fracture, right acute Difficulty walking acute Contusion of face resolved Fall resolved Acute lower gastrointestinal bleeding acute Anticoagulated acute Constipation acute Visit for suture removal acu te [facility] Work Phone: Evaluation note* Diagnosis Onset Date Resolution Status Ankle fracture, right acute Difficulty walking acute Contusion of face resolved Fall resolved Acute lower gastrointestinal bleeding resolved Visit for suture removal res olved [facility] Work Phone: Evaluation note* Diagnosis Onset Date Resolution Status Ankle fracture, right acute Difficulty walking acute Contusion of face resolved Fall resolved Anticoagulated acute Constipation acute Acute lower gastrointestinal bleeding resolved Visit for suture removal res olved Anticoagulated acute Constipation acute Rectal bleeding acute [facility] Work Phone: Evaluation note* Diagnosis Onset Date Resolution Status Anticoagulated acute Constipation acute Acute lower gastrointestinal bleeding resolved Visit for suture removal res olved Anticoagulated acute Constipation acute Rectal bleeding acute [facility] Work Phone: Evaluation note* Diagnosis Pain- Primary Generalized pain documented in this encounter [facility] note* Diagnosis Carpal tunnel syndrome of right wrist- Primary Carpal tunnel syndrome Disturbance of skin sensation documented [facility] [facility] note* Diagnosis Median nerve lesion, right- Primary Carpal tunnel syndrome of right wrist Carpal tunnel syndrome Disturbance of skin sensation Paresthesia of skin Disturbance of skin sensation documented in this encounter [facility] note* Diagnosis Pain Generalized pain documented in this encounter [facility] for referral (narrative)* Diagnostic Procedure Only (Routine) - Authorized Specialty Diagnoses / Procedures Referred By Cherise calderón Referred To Contact XR IMAGING Diagnoses Pain Procedures XR WRIST GENERAL 3V PA/LAT/OBL RIGHT RADEX WRIST COMPLETE MINIMUM 3 VIEWS Enedina Canchola PA-C [address] [place] [address] [place] [id number] Referral ID Status Reason Start Date Expiration Date Visits Requested Visits Authorized [id number] Authorized Auto-Generat ed Referral 3 07/25/2024 1 1 [facility] for referral (narrative)* Outpatient Procedure (Routine) - Pending Review Specialty Diagnoses / Procedures Referred By Cherise calderón Referred To Contact [facility] Diagnoses Carpal tunnel syndrome of right wrist Disturbance of skin sensation Procedures EMG(NEURO/NI) NERVE CONDUCTION STUDIES 9-10 STUDIES Enedina Canchola PA-C [address] [place] [address] [facility] [address] [place] [id number] Referral ID Status Reason Start Date Expiration Date Visits Requested Visits Authorized [id number] Pending Review Auto-Generat ed Referral 11/29/2023 11/28/2024 1 1 [facility] for referral (narrative)* Diagnostic Procedure Only (Routine) - Closed Specialty Diagnoses / Procedures Referred By Contdanielle t Referred To Contact XR IMAGING Diagnoses Pain Procedures XR WRIST GENERAL 3V PA/LAT/OBL RIGHT RADEX WRIST COMPLETE MINIMUM 3 VIEWS Enedina Canchola PA-C [address] [place] [address] Xr Imaging [id number] Referral ID Status Reason Start Date Expiration Date V isits Requested Visits Authorized [id number] Closed Auto-Generate d Referral 06/26/2023 07/25/2024 1 1 [facility] for visit Narrative* Diagnostic Procedure Only (Routine) - Closed Specialty Diagnoses / Procedures Referred By Cherise t Referred To Contact XR IMAGING Diagnoses Pain Procedures XR WRIST GENERAL 3V PA/LAT/OBL RIGHT RADEX WRIST COMPLETE MINIMUM 3 VIEWS Enedina Canchola PA-C [address] [place] [address] Xr Imaging [id number] Referral ID Status Reason Start Date Expiration Date V isits Requested Visits Authorized [id number] Closed Auto-Generate d Referral 06/26/2023 07/25/2024 1 1 [facility] [place] Summary Purpose Family History No Family History Records FoundNo Family History Records FoundNo Family History Records FoundNo Family History Records Found Advance Directives No Advanced Directives Records Found Advance Directive Response Recorded Date/ Time Living Will No September 26 8:30pm Power of Communications Technician No September 26, 2021 8:30pm Advance Directive Response Recorded Date/ Time Living Will No 2022 10:24am Power of Communications Technician No February 18 10:24am Advance Directive Response Recorded Date/ Time Name of Medical Power of Communications Technician Elier brito- drum maker May 13, 2022 2:34pm Living Will Yes May 13, 2022 2:34pm Power of Communications Technician Yes April 2:34pm Advance Directive Response Recorded Date/ Time Name of Medical Power of Communications Technician Elier Santacruzer s May 13, 2022 6:11pm Living Will Yes May 13, 2022 6:11pm Power of Communications Technician Yes April 6:11pm Advance Directive Response Recorded Date/ Time Name of Medical Power of Communications Technician Elier Santacruzer s May 13, 2022 6:11pm Name of Medical Power of Communications Technician ELIER SANTACRUZER S June 28, 2022 11:50pm Living Will Yes June 28 11:50pm Power of Communications Technician Yes June 28, 2022 11:50pm Advance Directive Response Recorded Date/ Time Name of Medical Power of Communications Technician Elier Santacruzer s May 13, 2022 5:11pm Name of Medical Power of Communications Technician ELIER SANTACRUZER S June 28, 2022 10:50pm Living Will Yes June 28 10:50pm Power of Communications Technician Yes June 28, 2022 10:50pm Advance Directive Response Recorded Date/ Time Name of Medical Power of Communications Technician Elier Santacruzer s May 13, 2022 5:11pm Name of Medical Power of Communications Technician ELIER SANTACRUZER S June 28, 2022 10:50pm Name of Medical Power of Communications Technician KAMILAH July 08, 2022 11:07am Living Will Yes July 08 022 11:07am Power of Communications Technician Yes July 08, 2022 11:07am Advance Directive Response Recorded Date/ Time Name of Medical Power of Communications Technician Elier Santacruzer s May 13, 2022 5:11pm Name of Medical Power of Communications Technician ELIER SANTACRUZER S June 28, 2022 10:50pm Name of Medical Power of Communications Technician Elier Hoke s July 08, 2022 2:45pm Living Will Yes July 08, 022 2:45pm Power of Communications Technician Yes July 08, 2022 2:45pm Advance Directive Response Recorded Date/ Time Name of Medical Power of Communications Technician Elier brito May 13, 2022 5:11pm Name of Medical Power of Communications Technician ELIER Brito June 28, 2022 10:50pm Name of Medical Power of Communications Technician Elier brito July 08, 2022 2:45pm Living Will No August 22, 2 022 2:28pm Power of Communications Technician No August 22, 2022 2:28pm Advance Directive Response Recorded Date/ Time Name of Medical Power of Communications Technician ELIER Brito June 28, 2022 10:50pm Name of Medical Power of Communications Technician Elier brito July 08, 2022 2:45pm Living Will No August 22, 2 022 2:28pm Power of Communications Technician No August 22, 2022 2:28pm Advance Directive Response Recorded Date/ Time Name of Medical Power of Communications Technician Elier brito July 08, 2022 2:45pm Living Will No August 22, 2 022 2:28pm Power of Communications Technician No August 22, 2022 2:28pm Advance Directive Response Recorded Date/ Time Living Will No August 22, 2 022 3:28pm Power of Communications Technician No August 22, 2022 3:28pm Advance Directive Response Recorded Date/ Time Living Will No August 22, 2 022 2:28pm Power of Communications Technician No August 22, 2022 2:28pm Chief Complaint and Reason for Visit Chief Complaint LONG-TERM LAB WOR K fall, head injury SCREENING LONG-TERM LAB WORK Chief Complaint SCREENING LONG-TERM LAB WORK LONG-TERM LAB WORK SHOULDER Chief Complaint SCREENING LONG-TERM LAB WORK LONG-TERM LAB WORK SHOULDER LONG-TERM LAB WORK RIGHT SHOULDER PAIN Chief Complaint LONG-TERM LAB WOR K SHOULDER LONG-TERM LAB WORK RIGHT SHOULDER PAIN DEBILITY, RIGHT ANKLE FRACTURE DEBILITY, RIGHT ANKLE FRACTURE Reason for Visit Ankle fracture, righ t Contusion of face Fall Chief Complaint LONG-TERM LAB WOR K SHOULDER LONG-TERM LAB WORK RIGHT SHOULDER PAIN DEBILITY, RIGHT ANKLE FRACTURE DEBILITY, RIGHT ANKLE FRACTURE DEBILITY, RIGHT ANKLE FRACTURE DEBILITY, RIGHT ANKLE FRACTURE Reason for Visit Acute right ankle pa in Ankle fracture, right Contusion of face Difficulty walking Fall Chief Complaint SHOULDER LONG-TERM LAB WORK RIGHT SHOULDER PAIN DEBILITY, RIGHT ANKLE FRACTURE DEBILITY, RIGHT ANKLE FRACTURE DEBILITY, RIGHT ANKLE FRACTURE DEBILITY, RIGHT ANKLE FRACTURE LAB WORK LAB WORK LAB WORK LAB WORK LONG-TERM LAB WORK Reason for Visit Ankle fracture, righ t Difficulty walking Contusion of face Fall Chief Complaint LONG-TERM LAB WOR K RIGHT SHOULDER PAIN DEBILITY, RIGHT ANKLE FRACTURE DEBILITY, RIGHT ANKLE FRACTURE DEBILITY, RIGHT ANKLE FRACTURE DEBILITY, RIGHT ANKLE FRACTURE LAB WORK LAB WORK LAB WORK LAB WORK LONG-TERM LABWORK LONG-TERM LAB WORK LAB WORK HEAD INJURY Reason for Visit Ankle fracture, righ t Difficulty walking Contusion of face Fall Chief Complaint LONG-TERM LAB WOR K RIGHT SHOULDER PAIN DEBILITY, RIGHT ANKLE FRACTURE DEBILITY, RIGHT ANKLE FRACTURE DEBILITY, RIGHT ANKLE FRACTURE DEBILITY, RIGHT ANKLE FRACTURE LAB WORK LAB WORK LAB WORK LAB WORK LONG-TERM LABWORK LONG-TERM LAB WORK LONG-TERM LABWORK LONG-TERM LABWORK LAB WORK LAB WORK HEAD INJURY Reason for Visit Ankle fracture, righ t Difficulty walking Contusion of face Fall Chief Complaint LONG-TERM LAB WOR K RIGHT SHOULDER PAIN DEBILITY, RIGHT ANKLE FRACTURE DEBILITY, RIGHT ANKLE FRACTURE DEBILITY, RIGHT ANKLE FRACTURE DEBILITY, RIGHT ANKLE FRACTURE LAB WORK LAB WORK LAB WORK LAB WORK LONG-TERM LABWORK LONG-TERM LAB WORK LONG-TERM LABWORK LONG-TERM LABWORK LAB WORK LAB WORK HEAD INJURY GI BLEED Reason for Visit Ankle fracture, righ t Difficulty walking Contusion of face Fall Acute lower gastrointestinal bleeding Anticoagulated Visit for suture removal Chief Complaint LONG-TERM LAB WOR K RIGHT SHOULDER PAIN DEBILITY, RIGHT ANKLE FRACTURE DEBILITY, RIGHT ANKLE FRACTURE DEBILITY, RIGHT ANKLE FRACTURE DEBILITY, RIGHT ANKLE FRACTURE LAB WORK LAB WORK LAB WORK LAB WORK LONG-TERM LABWORK LONG-TERM LAB WORK LONG-TERM LABWORK LONG-TERM LABWORK LAB WORK LAB WORK HEAD INJURY GI BLEED GI BLEED GI BLEED GI BLEED GI BLEED GI BLEED Reason for Visit Ankle fracture, righ t Difficulty walking Contusion of face Fall Acute lower gastrointestinal bleeding Anticoagulated Constipation Visit for suture removal Chief Complaint LONG-TERM LAB WOR K RIGHT SHOULDER PAIN DEBILITY, RIGHT ANKLE FRACTURE DEBILITY, RIGHT ANKLE FRACTURE DEBILITY, RIGHT ANKLE FRACTURE DEBILITY, RIGHT ANKLE FRACTURE LAB WORK LAB WORK LAB WORK LAB WORK LONG-TERM LABWORK LONG-TERM LAB WORK LONG-TERM LABWORK LONG-TERM LABWORK LAB WORK LAB WORK HEAD INJURY LONG-TERM LABWORK GI BLEED GI BLEED GI BLEED GI BLEED GI BLEED GI BLEED LONG-TERM LAB WORK Reason for Visit Ankle fracture, righ t Difficulty walking Contusion of face Fall Acute lower gastrointestinal bleeding Visit for suture removal Chief Complaint DEBILITY, RIGHT ANKL E FRACTURE DEBILITY, RIGHT ANKLE FRACTURE DEBILITY, RIGHT ANKLE FRACTURE DEBILITY, RIGHT ANKLE FRACTURE LAB WORK LAB WORK LAB WORK LAB WORK LONG-TERM LABWORK LONG-TERM LAB WORK LONG-TERM LABWORK LONG-TERM LABWORK LAB WORK LAB WORK HEAD INJURY LONG-TERM LABWORK GI BLEED GI BLEED GI BLEED GI BLEED GI BLEED GI BLEED LONG-TERM LAB WORK LONG-TERM LAB WORK 2 W F/U GI BLEED LONG-TERM LABWORK Reason for Visit Ankle fracture, righ t Difficulty walking Contusion of face Fall Anticoagulated Constipation Acute lower gastrointestinal bleeding Visit for suture removal Anticoagulated Constipation Rectal bleeding Chief Complaint DEBILITY, RIGHT ANKL E FRACTURE DEBILITY, RIGHT ANKLE FRACTURE DEBILITY, RIGHT ANKLE FRACTURE DEBILITY, RIGHT ANKLE FRACTURE LAB WORK LAB WORK LAB WORK LAB WORK LONG-TERM LABWORK LONG-TERM LAB WORK LONG-TERM LABWORK LONG-TERM LABWORK LAB WORK LAB WORK HEAD INJURY LONG-TERM LABWORK GI BLEED GI BLEED GI BLEED GI BLEED GI BLEED GI BLEED LONG-TERM LAB WORK LONG-TERM LAB WORK 2 W F/U GI BLEED LONG-TERM LABWORK LONG-TERM LAB WORK LONG-TERM LAB WORK LONG-TERM LAB WORK Reason for Visit Ankle fracture, righ t Difficulty walking Contusion of face Fall Anticoagulated Constipation Acute lower gastrointestinal bleeding Visit for suture removal Anticoagulated Constipation Rectal bleeding Chief Complaint DEBILITY, RIGHT ANKL E FRACTURE DEBILITY, RIGHT ANKLE FRACTURE DEBILITY, RIGHT ANKLE FRACTURE DEBILITY, RIGHT ANKLE FRACTURE LAB WORK LAB WORK LAB WORK LAB WORK LONG-TERM LABWORK LONG-TERM LAB WORK LONG-TERM LABWORK LONG-TERM LABWORK LAB WORK LAB WORK HEAD INJURY LONG-TERM LABWORK GI BLEED GI BLEED GI BLEED GI BLEED GI BLEED GI BLEED LONG-TERM LAB WORK LONG-TERM LAB WORK 2 W F/U GI BLEED LONG-TERM LABWORK LONG-TERM LABWORK LONG-TERM LAB WORK LONG-TERM LAB WORK LONG-TERM LAB WORK Reason for Visit Ankle fracture, righ t Difficulty walking Contusion of face Fall Anticoagulated Constipation Acute lower gastrointestinal bleeding Visit for suture removal Anticoagulated Constipation Rectal bleeding Chief Complaint LAB WORK LAB WORK LONG-TERM LABWORK LONG-TERM LAB WORK LONG-TERM LABWORK LONG-TERM LABWORK LAB WORK LAB WORK HEAD INJURY LONG-TERM LABWORK GI BLEED GI BLEED GI BLEED GI BLEED GI BLEED GI BLEED LONG-TERM LAB WORK LONG-TERM LAB WORK 2 W F/U GI BLEED LONG-TERM LABWORK LONG-TERM LABWORK LONG-TERM LAB WORK LONG-TERM LAB WORK LONG-TERM LAB WORK LONG-TERM LAB WORK Reason for Visit Anticoagulated Constipation Acute lower gastrointestinal bleeding Visit for suture removal Anticoagulated Constipation Rectal bleeding Chief Complaint LAB WORK LONG-TERM LABWORK LONG-TERM LAB WORK LONG-TERM LABWORK LONG-TERM LABWORK LAB WORK LAB WORK HEAD INJURY LONG-TERM LABWORK GI BLEED GI BLEED GI BLEED GI BLEED GI BLEED GI BLEED LONG-TERM LAB WORK LONG-TERM LAB WORK 2 W F/U GI BLEED LONG-TERM LABWORK LONG-TERM LABWORK LONG-TERM LAB WORK LONG-TERM LAB WORK LONG-TERM LAB WORK LONG-TERM LAB WORK LONG-TERM LAB WORK Reason for Visit Anticoagulated Constipation Acute lower gastrointestinal bleeding Visit for suture removal Anticoagulated Constipation Rectal bleeding Chief Complaint LONG-TERM LABWORK LONG-TERM LABWORK LAB WORK LAB WORK HEAD INJURY LONG-TERM LABWORK GI BLEED GI BLEED GI BLEED GI BLEED GI BLEED GI BLEED LONG-TERM LAB WORK LONG-TERM LAB WORK 2 W F/U GI BLEED LONG-TERM LABWORK LONG-TERM LABWORK LONG-TERM LAB WORK LONG-TERM LAB WORK LONG-TERM LAB WORK LONG-TERM LAB WORK LONG-TERM LAB WORK LONG-TERM LABWORK LONG-TERM LAB WORK Reason for Visit Anticoagulated Constipation Acute lower gastrointestinal bleeding Visit for suture removal Anticoagulated Constipation Rectal bleeding Chief Complaint LONG-TERM LABWORK LONG-TERM LABWORK LAB WORK LAB WORK HEAD INJURY LONG-TERM LABWORK GI BLEED GI BLEED GI BLEED GI BLEED GI BLEED GI BLEED LONG-TERM LAB WORK LONG-TERM LAB WORK 2 W F/U GI BLEED LONG-TERM LABWORK LONG-TERM LABWORK LONG-TERM LAB WORK LONG-TERM LAB WORK LONG-TERM LAB WORK LONG-TERM LAB WORK LONG-TERM LAB WORK LONG-TERM LABWORK LONG-TERM LAB WORK LONG-TERM LAB WORK Reason for Visit Anticoagulated Constipation Acute lower gastrointestinal bleeding Visit for suture removal Anticoagulated Constipation Rectal bleeding Chief Complaint LAB WORK HEAD INJURY LONG-TERM LABWORK GI BLEED GI BLEED GI BLEED GI BLEED GI BLEED GI BLEED LONG-TERM LAB WORK LONG-TERM LAB WORK 2 W F/U GI BLEED LONG-TERM LABWORK LONG-TERM LABWORK LONG-TERM LAB WORK LONG-TERM LAB WORK LONG-TERM LAB WORK LONG-TERM LAB WORK LONG-TERM LAB WORK LONG-TERM LABWORK LONG-TERM LAB WORK LONG-TERM LAB WORK LONG-TERM LAB WORK Reason for Visit Anticoagulated Constipation Acute lower gastrointestinal bleeding Visit for suture removal Anticoagulated Constipation Rectal bleeding Chief Complaint GI BLEED GI BLEED GI BLEED GI BLEED GI BLEED GI BLEED LONG-TERM LAB WORK LONG-TERM LAB WORK 2 W F/U GI BLEED LONG-TERM LABWORK LONG-TERM LABWORK LONG-TERM LAB WORK LONG-TERM LAB WORK LONG-TERM LAB WORK LONG-TERM LAB WORK LONG-TERM LAB WORK LONG-TERM LABWORK LONG-TERM LAB WORK LONG-TERM LAB WORK LONG-TERM LAB WORK LABWORK Reason for Visit Anticoagulated Constipation Acute lower gastrointestinal bleeding Visit for suture removal Anticoagulated Constipation Rectal bleeding Chief Complaint LONG-TERM LABWORK LONG-TERM LAB WORK LONG-TERM LAB WORK LONG-TERM LAB WORK LONG-TERM LAB WORK LONG-TERM LAB WORK LONG-TERM LABWORK LONG-TERM LAB WORK LONG-TERM LAB WORK LONG-TERM LAB WORK LABWORK LONG-TERM LAB WORK LONG-TERM LABWORK LONG-TERM LAB WORK Chief Complaint LONG-TERM LAB WOR K LONG-TERM LAB WORK LONG-TERM LAB WORK LONG-TERM LABWORK LONG-TERM LAB WORK LONG-TERM LAB WORK LONG-TERM LAB WORK LABWORK LONG-TERM LAB WORK LONG-TERM LABWORK LONG-TERM LAB WORK LONG-TERM LABWORK Chief Complaint LONG-TERM LABWORK LONG-TERM LAB WORK LONG-TERM LAB WORK LONG-TERM LAB WORK LABWORK LONG-TERM LAB WORK LONG-TERM LABWORK LONG-TERM LAB WORK LONG-TERM LABWORK CERVICAL SPINE FX, SCREENING Chief Complaint LONG-TERM LABWORK LONG-TERM LAB WORK LONG-TERM LABWORK LONG-TERM LAB WORK CERVICAL SPINE FX, SCREENING LONG-TERM LABWORK Chief Complaint LONG-TERM LAB WOR K CERVICAL SPINE FX, SCREENING LONG-TERM LABWORK LONG-TERM LAB WORK LONG-TERM LAB WORK Chief Complaint LONG-TERM LABWORK LONG-TERM LAB WORK LONG-TERM LAB WORK LONG-TERM LAB WORK Chief Complaint LONG-TERM LAB WOR K LONG-TERM LAB WORK LONG-TERM LABWORK LONG-TERM LAB WORK Chief Complaint LONG-TERM LAB WOR K LONG-TERM LABWORK LONG-TERM LAB WORK LONG-TERM LABWORK Chief Complaint LONG-TERM LAB WOR K LONG-TERM LABWORK LONG-TERM LAB WORK LONG-TERM LABWORK LONG-TERM LABWORK Chief Complaint LONG-TERM LAB WOR K LONG-TERM LABWORK LONG-TERM LAB WORK LONG-TERM LABWORK LONG-TERM LABWORK LABWORK Chief Complaint LONG-TERM LABWORK LONG-TERM LAB WORK LONG-TERM LABWORK LONG-TERM LABWORK LABWORK SKIN Chief Complaint LONG-TERM LAB WOR K LONG-TERM LABWORK LONG-TERM LABWORK LABWORK SKIN LABWORK Chief Complaint LONG-TERM LABWORK LONG-TERM LABWORK LABWORK SKIN LABWORK LABWORK LABWORK Chief Complaint LABWORK SKIN LABWORK LABWORK LABWORK LABWORK LABWORK Additional Source Comments INFORMATION SOURCE (unrecogn ized section and content) DATE CREATED AUTHOR 01/14/2019 [facility] [facility] DATE CREATED AUTHOR AUTHOR'S ORGANIZ ATION 07/24/2023 [facility] DATE CREATED AUTHOR AUTHOR'S ORGANIZ ATION 03/13/2024 [facility] DATE CREATED AUTHOR AUTHOR'S ORGANIZ ATION 01/31/2025 [facility] Goals (unrecognized section and content) Goals may [...] Active Member Role Status Dates Dr. Gerda Wliks MD Primary Care Provider Active Dr. Gerda [...] or prosecute any alcohol or drug abuse patient.[facility] [place] the event this information is protected by the Federal Confidentiality of Alcohol and Drug Abuse Patient Records regulations: The Federal rules restrict any use of the information to criminally investigate or prosecute any alcohol or drug abuse patient.[facility] [place] the event this information is protected by the Federal Confidentiality of Alcohol and Drug Abuse Patient Records regulations: The Federal rules restrict any use of the information to criminally investigate or prosecute any alcohol or drug abuse patient.[facility] [place] the event this information is protected by the Federal Confidentiality of Alcohol and Drug Abuse Patient Records regulations: The Federal rules restrict any use of the information to criminally investigate or prosecute any alcohol or drug abuse patient.[facility] [place] the event this information is protected by the Federal Confidentiality of Alcohol and Drug Abuse Patient Records regulations: The Federal rules restrict any use of the information to criminally investigate or prosecute any alcohol or drug abuse patient.[facility] [place] Reason for Visit (unrecogniz ed section and [...] 9-10 STUDIES Enedina Canchola PA-C [address] [place] [address] [facility] [address] [place] [address] Referral ID Status Reason Start Date Expiration Date V isits Requested Visits Authorized [id number] Closed Auto-Generate d Referral 11/29/2023 11/28/2024 1 [...] BE BASED ON THE PRIMARY CLINICAL RECORDS. [email or web address] [facility]. provides no warranty or guarantee of the accuracy or completeness of information in this document.
[2025-02-07 12:38] LABS: Troponin T High Sens 2 HR 9 ng/L (<=14)
--- NOTE | 2025-02-07 13:03 | ECHOD_ITS ---
Reason For Study Reason For Study: TIA/CVA Procedure This was a 2D Doppler, Color Flow transthoracic echocardiogram. Exam performed portable in patient room. Left Ventricle Normal LV size. The left ventricular ejection fraction is 70 %. No regional wall motion abnormalities noted. Right Ventricle Normal RV size. Normal systolic function. Atria Normal left atrium. Normal right atrium. Mitral Valve Normal mitral valve. Tricuspid Valve Normal tricuspid valve. Mild (1+) tricuspid valve insufficiency. Pulmonary artery systolic pressure is 38 mmHg. Aortic Valve Trisinus/trileaflet aortic valve. Mild focal aortic valve calcification. Peak aortic valve gradient 17 mmHg. Mean aortic valve gradient 8 mmHg. Mild (1+) aortic valve insufficiency. Pericardium/Pleural No pericardial effusion. MMode/2D Measurements & Calculations LAV(MOD-bp): 51.0 ml LVAd ap4: 20.0 cm2 SV(MOD-sp4): 32.9 ml LAV(MOD-bp) Indexed: 31.6 ml/m2 LVLd ap4: 7.2 cm SI(MOD-sp4): 20.4 ml/m2 LAV(MOD-sp2): 39.6 ml EDV(MOD-sp4): 47.2 ml LAV(MOD-sp4): 64.3 ml EDV(sp4-el): 47.2 ml LVAs ap4: 9.0 cm2 LVLs ap4: 4.9 cm ESV(MOD-sp4): 14.2 ml ESV(sp4-el): 13.8 ml EF(MOD-sp4): 69.8 % EF(sp4-el): 70.8 % SV(sp4-el): 33.4 ml LA A4 area: 20.3 cm2 RA A4 area: 8.0 cm2 Time Measurements MV dec time: 0.28 sec Doppler Measurements & Calculations MV E max jacob: 116.6 cm/sec Lat Peak E' Jacob: 10.9 cm/sec Med Peak E' Jacob: 8.3 cm/sec MV A max jacob: 117.2 cm/sec E/E' lat: 10.7 E/E' med: 14.1 MV E/A: 1.00 MV V2 max: 118.1 cm/sec MV dec slope: 418.0 cm/sec2 Ao V2 max: 209.5 cm/sec MV max P.6 mmHg Ao max P.6 mmHg MV V2 mean: 71.8 cm/sec Ao V2 mean: 137.0 cm/sec MV mean P.5 mmHg Ao mean P.7 mmHg MV V2 VTI: 40.5 cm Ao V2 VTI: 46.5 cm AV (velocity ratio): 0.68 AI max jacob: 400.9 cm/sec LV V1 max: 134.1 cm/sec PA V2 max: 115.7 cm/sec AI max P.3 mmHg LV V1 max P.2 mmHg PA V2 mean: 80.0 cm/sec AI dec slope: 235.6 cm/sec2 LV V1 mean P.4 mmHg AI P1/2t: 498.4 msec LV V1 mean: 85.7 cm/sec LV V1 VTI: 31.6 cm TR max jacob: 288.7 cm/sec TR max P.3 mmHg ECHO/Echo Complete Interpretation Summary Normal LV size. The left ventricular ejection fraction is 70 %. Pulmonary artery systolic pressure is 38 mmHg. Mean aortic valve gradient 8 mmHg. Mild (1+) aortic valve insufficiency. Ordering Physician: Jaciel Olivier Referring Physician: CAROLIN CARRASCO Performed By: Dee Dee Austin RCS
--- NOTE | 2025-02-07 14:01 | HP.PCM.HOS_ITS ---
HPI - General General Date of Admission: 02/07/25 HPI Narrative CLAUS MCKEON, is a 79 F who presents from assisted living with concerns of a stroke. Currently NIH is 0 but they noted slurred speech and right facial droop. She does have a dry mouth so I do not think that she mostly has dysarthria at this time. She is already on Eliquis for history of DVT and is on blood pressure medications. She says that she feels fine and is back to her baseline. Workup in the ER was unremarkable, CTA of the head and neck was negative for an LVO and CT of the brain was also negative for hemorrhage. [facility]LY [facility] Medical History Injury of back Rectal bleeding Constipation Anticoagulated Presbyopia Unspecified nondisplaced fracture of sixth cervical vertebra, initial encounter for closed fracture Weakness Anxiety disorder, unspecified Age-related osteoporosis without current pathological fracture Other fracture of right lower leg, subsequent encounter for closed fracture with routine healing DVT (deep venous thrombosis) GERD (gastroesophageal reflux disease) Depression Hyperlipidemia Hypertension Home Medications ?Medication ?Instructions ?Recorded ?Last Taken ?Type alendronate 70 mg tablet 70 mg PO MO OSTEOPOROSIS 08/16 Unknown History allopurinol 100 mg tablet 200 mg PO DAILY GOUT 1 Unknown History bupropion HCl 200 mg tablet,12 hr 200 mg PO BID mood 1 10/08/20 Unknown History sustained-release fluticasone propionate 50 1 spray intranasal DAILY all ergies 08/07/21 Unknown History mcg/actuation nasal spray,suspension loratadine 10 mg tablet 10 mg PO DAILY allergies 08/16 Unknown History omeprazole 20 mg capsule,delayed 20 mg PO DAILY reflux 08/07/21 Unknown History release potassium chloride 10 mEq 10 meq PO DAILY supplement 1 10/08/20 Unknown History tablet,extended release(part/cryst) (Klor-Con M) pravastatin 20 mg tablet 20 mg PO QHS cholesterol 08/16 Unknown History tramadol 50 mg tablet 50 mg PO Q12H PRN Pain 07/08 Unknown History acetaminophen 325 mg tablet 650 mg PO QHS PRN Pain Sco re 02/07/25 Unknown History (Tylenol) 1-10/Temp > 100.7 F aluminum-magnesium hydroxide 200 30 ml PO Q4H PRN GI b leeding 02/07/25 Unknown History mg-200 mg/5 mL oral suspension prophylaxis apixaban 5 mg tablet (Eliquis) 5 mg PO BID dvt 5 Unknown History cinacalcet 30 mg tablet 30 mg PO DAILY parathyroid 0 02/07/25 Unknown History clonazepam 0.5 mg tablet 0.5 mg PO QHS 02/07/25 Unkno wn History docusate sodium 100 mg capsule 100 mg PO DAILY CONSTIP ATION 02/07/25 Unknown History (Col-Rite) donepezil 10 mg tablet 10 mg PO QHS memory 02/07/25 Unknown History guaifenesin 100 mg/5 mL oral 200 mg PO Q4H PRN congest ion 02/07/25 Unknown History liquid (Adult Tussin Chest Congestion) guaifenesin 600 mg tablet, 600 mg PO BID 02/07/25 Unkn own History extended release 12 hr (Mucinex) losartan 50 mg tablet 50 mg PO DAILY bp 02/07/25 U nknown History magnesium hydroxide 400 mg/5 mL 30 ml PO DAILY PRN con stipation 02/07/25 Unknown History oral suspension (Dulcolax (magnesium hydroxide)) methyl salicylate 15 %-menthol 10 1 applic topical Q12 H PRN muscle 02/07/25 Unknown History % topical cream (AsperFlex (methyl pain salicylate-menthol)) metoprolol tartrate 25 mg tablet 12.5 mg PO BID heart 02/07/25 Unknown History minoxidil 2.5 mg tablet 2.5 mg PO DAILY bp 02/07/25 Unknown History ondansetron HCl 4 mg tablet 4 mg PO Q8H PRN nausea and vomiting 02/07/25 Unknown History polyethylene glycol 3350 17 17 g PO DAILY PRN constipa tion 02/07/25 Unknown History gram/dose oral powder (Miralax) sertraline 50 mg tablet 75 mg PO DAILY depression Unknown History torsemide 10 mg tablet 10 mg PO DAILY water pill Unknown History Allergy/AdvReac Type Severity Reaction Status Date / Time Latex, Natural Rubber AdvReac Rash Verified 02/07/25 09:31 Family History (Updated 02/07/25 @ 16:[address] Jaciel Olivier MD) Other CVA (cerebral vascular accident) Cancer Heart disease Surgical History (Updated 02/07/25 @ 16:[address] Jaciel Olivier MD) Status post hysterectomy Social History (Updated 02/07/25 @ 13:06 by Jaz Mon) housing: assisted living facility Smoking Status: Never smoker ROS Constitutional Constitutional: Denies chills, fatigue, fever(s) or malaise Eyes Eyes: Denies blurry vision ENT HEENT: Denies headache(s) or nasal discharge Cardiovascular Cardiovascular: Denies chest pain, dyspnea on exertion or syncope Respiratory/Chest Respiratory/Chest: Denies cough, shortness of breath at rest or shortness of breath with exertion Gastrointestinal Gastrointestinal: Denies constipation, diarrhea, nausea or vomiting Genitourinary Genitourinary: Denies dysuria Neurologic Neurologic: Reports abnormal speech; Denies focal weakness, numbness or tremor(s) Psychiatric Psychiatric: Denies anxiety or depression Vital Signs Vital Signs Vital Signs: 02/07/25 09:17 02/07/25 09:21 02/07/25 09:35 Temperature 97.8 F 97.8 F Temperature Source Oral Oral Pulse Rate 74 74 Respiratory Rate 19 H 19 H Blood Pressure 116/53 L 116/53 L Blood Pressure Mean 74 74 Blood Pressure Source Blood Pressure Position Blood Pressure Location Pulse Ox 91 91 96 Oxygen Delivery Method Room Air Room Air Nasal Cannula Oxygen Flow Rate (L/min) 2 02/07/25 09:37 02/07/25 09:45 02/07/25 09:47 Temperature Temperature Source Pulse Rate 77 71 Respiratory Rate 14 19 H Blood Pressure 112/51 L 110/55 L Blood Pressure Mean 71 73 Blood Pressure Source Blood Pressure Position Blood Pressure Location Pulse Ox 96 91 97 Oxygen Delivery Method Nasal Cannula Room Air Nasal Cannula Oxygen Flow Rate (L/min) 2 2 02/07/25 10:17 02/07/25 10:30 02/07/25 11:00 Temperature 97.8 F 97.9 F Temperature Source Oral Oral Pulse Rate 68 63 61 Respiratory Rate 18 16 18 Blood Pressure 96/46 L 136/62 H 130/60 H Blood Pressure Mean 62 86 83 Blood Pressure Source Blood Pressure Position Blood Pressure Location Pulse Ox 97 98 97 Oxygen Delivery Method Nasal Cannula Nasal Cannula Room Air Oxygen Flow Rate (L/min) 1 1 02/07/25 11:15 02/07/25 11:30 02/07/25 12:00 Temperature 97.9 F Temperature Source Pulse Rate 66 55 L 56 L Respiratory Rate 16 16 18 Blood Pressure 144/72 H 145/67 H 134/53 H Blood Pressure Mean 96 93 80 Blood Pressure Source Blood Pressure Position Blood Pressure Location Pulse Ox 96 96 96 Oxygen Delivery Method Room Air Room Air Oxygen Flow Rate (L/min) 02/07/25 12:30 02/07/25 13:20 Temperature 97.8 F Temperature Source Oral Pulse Rate 57 L 82 Respiratory Rate 18 17 Blood Pressure 115/65 107/93 H Blood Pressure Mean 81 97 Blood Pressure Source Monitor Blood Pressure Position Semi-Fowlers Blood Pressure Location Left Arm Pulse Ox 96 94 Oxygen Delivery Method Room Air Room Air Oxygen Flow Rate (L/min) Weight Weight: 155 lb 10.342 oz Body Mass Index (BMI) 33.7 Physical Exam Narrative General: Alert, Oriented x3, Cooperative, No apparent distress HEENT: Atraumatic, PERRLA, EOMI, Normocephalic Oral: Moist Mucosa Neck: Supple, No JVD Lungs: Diminished, Normal air movement, No rhonchi, No wheeze, No rales Cardiovascular: Regular rate, Regular Rhythm, Normal S1, Normal S2, No murmurs Abdomen: Soft, Non Tender, Non-Distended, No Hepato-splenomegaly Extremities: No edema, Capillary Refill Less than 3 Seconds Skin: No rashes, No breakdown Musculoskeletal: No Tenderness to Palpation of Joints or Extremities Neurological: No focal neurological deficits, moves all extremities, sensation is intact, NIH 0 Psych/Mental Status: Normal Affect, Appropriate Results Lab / Micro Data 02/07/25 09:31 02/07/25 09:31 Labs: Laboratory Results - last 24 hr 02/07/25 09:31: WBC 6.9, RBC 3.83 L, Hgb 11.4 L, Hct 35.0 L, MCV 91.4, MCH 29.8, MCHC 32.6, RDW Std Deviation 53.1 H, RDW Coeff of Michele 15.9 H, Plt Count 195, MPV 10.6, Immature Gran % (Auto) 0.400, Neut % (Auto) 77.2 H, Lymph % (Auto) 12.9 L, [place] % (Auto) 7.2, Eos % (Auto) 1.6, Baso % (Auto) 0.7, Absolute Neuts (auto) 5.3, Absolute Lymphs (auto) 0.89, Nucleated RBC % 0, PT 14.5, INR 1.1, APTT 33.3, Sodium 137, Potassium 4.0, Chloride 107, Carbon Dioxide 21.1, Anion Gap 9, BUN 18, Creatinine 0.77, Estim Creat Clear Calc 51.78, Est GFR (MDRD) Non-Af 79, BUN/Creatinine Ratio 23.7 H, Glucose 117 H, Calcium 9.3, Troponin T High Sens 9 02/07/25 11:10: Urine Color Yellow, Urine Clarity Clear, Urine pH 7.0, Ur Specific [place] 1.005, Urine Protein Negative, Urine Glucose (UA) Normal, Urine Ketones Negative, Urine Occult Blood Negative, Urine Nitrite Negative, Urine Bilirubin Negative, Urine Urobilinogen Normal, Ur Leukocyte Esterase Negative, Urine RBC 0 SEEN, Urine WBC 0 SEEN, Ur Squamous Epith Cells 0 SEEN, Urine Bacteria 0 SEEN, Urine Mucus 0 SEEN 02/07/25 11:50: Troponin T Hi Sens 2 Hr 9 Imaging Radiology Impression Brain CT 02/07/25 09:17 IMPRESSION: No acute, large territorial infarction. Reading Location: [facility] Chest X-Ray 02/07/25 09:18 IMPRESSION: No acute process. Reading [facility] Head/Neck CTA 02/07/25 09:18 IMPRESSION: No acute large vessel occlusion or high-grade stenosis. Dr. Sibley was notified by Edson Rodriguez at 9:50am EST on 02/07/25 Reading Location: [facility] Assessment & Plan Assessment/Plan (1) TIA (transient ischemic attack): PLAN: Plan 1. TIA versus CVA ? Will obtain an MRI ? Will obtain an echo ? PT/OT ? She is already on Eliquis, will add aspirin in case this is small vessel issues ? Will allow permissive hypertension and hold her home blood pressure medications 2. Essential HTN/HLD ? Will hold her home blood pressure medications to allow permissive hypertension for her TIA ? Will continue with her home pravastatin ? Will monitor make adjustments as necessary 3. History of DVT ? Will continue with her home Eliquis 4. Anxiety/depression/dementia ? Stable ? Continue with her home medications 5. GERD ? Stable ? Continue with her PPI 6. Gout ? Stable ? Continue with allopurinol 7. Osteoporosis ? Continue with her home alendronate and Cinacalcet ? Stable DVT: Eliquis 56 minutes was spent on direct patient care, including documentation as well as chart review and collaboration with colleagues Charges/Coding Visit Charges Inpatient E&M: 45222 Init Hosp L2
[2025-02-07 16:28] LABS: Troponin T High Sens 4 HR 11 ng/L (<=14)
[2025-02-07] MEDS: APIXABAN 5 MG TABLET PO (21:28)
[2025-02-07] MEDS: Pravastatin 20 MG Tablet PO (21:29)
[2025-02-07] MEDS: Donepezil HCl 10 MG Tablet PO (21:29)
[2025-02-07] MEDS: clonazePAM 0.5 MG Tablet PO (21:32)
[2025-02-07] MEDS: buPROPion 100 MG Tablet 200 MG PO (21:33)
[2025-02-07] MEDS: Acetaminophen 325 MG Tablet 650 MG PO (21:38)
[2025-02-08] VITALS (7 sets, daily range): BP systolic 105–130; BP diastolic 43–54; PULSE 60–78; RESP 14–18; TEMP 36.6–37.1; O2SAT 92–100; BMI 33.7
[2025-02-08 07:03] LABS: Absolute Lymphocyte Count 1.55 X10^3/uL (0.83-4.51); Absolute Neutrophil Count 2.9 X10^3/uL (2.0-7.7); Basophil# 0.07 X10^3/uL; Basophil% 1.3 % (0-1); Eosinophil# 0.28 X10^3/uL; Eosinophils% 5.3 % (0-5); Hematocrit 35.9 % (37-47); Hemoglobin 11.3 g/dL (12.0-15.0); Lymphocyte # 1.55 X10^3/ul (0.83-4.51); Lymphocyte % 29.1 % (19-41); Mean Corp Hgb Conc 31.5 g/dL (32-36); Mean Corpuscular Hgb 29.2 pg (27.0-32.0); Mean Corpuscular Volume 92.8 fL (81-99); Mean Platelet Vol. 11.1 fl (6.2-12.0); Monocyte% 9.4 % (0-10); NRBC Flagged by Analyzer 0 % (0-5); Neutrophil # 2.91 X10^3/uL (2.7-7.7); Neutrophil % 54.5 % (47-70); Platelet Count 211 K/mm3 (150-450); RBC Distribution Width CV 15.9 % (11.6-14.6); RBC Distribution Width SD 54.4 fl (35.1-43.9); Red Blood Count 3.87 M/mm3 (4.2-5.4); White Blood Count 5.3 K/mm3 (4.4-11.0)
[2025-02-08 07:32] LABS: Anion Gap 9 (5-15); BUN 14 mg/dL (4-19); BUN/Creat Ratio 18.7 RATIO (10-20); Calcium,Total 9.5 mg/dL (7.6-11.0); Carbon Dioxide 23.6 mmol/L (21.0-32.0); Chloride 110 mmol/L (98-108); Cholesterol 152 mg/dL (<=200); Creatinine, Serum 0.76 mg/dL (0.70-1.20); EST Glomerular Filtration Rate 81 (>60); Estimated Creatinine Clearance 51.63 ml/min (50-250); Glucose 103 mg/dL (70-99); High Density Lipoprotein 45 mg/dL; Low Density Lipoprotein Calc. 77 mg/dL; Potassium 3.9 mmol/L (3.3-5.1); Sodium Level 143 mmol/L (133-145); Triglycerides 147 mg/dL; Very Low Density Lipoprotein 29 mg/dL (5-40); cholesterol:hdl ratio screen 3.36
[2025-02-08] MEDS: Aspirin 81 MG TAB.CHEW PO (08:06)
[2025-02-08] MEDS: Allopurinol 100 MG Tablet 200 MG PO (08:06)
[2025-02-08] MEDS: buPROPion 100 MG Tablet 200 MG PO ×2 (09:25→21:03)
[2025-02-08] MEDS: Pantoprazole Sodium 20 MG Tablet PO (09:25)
[2025-02-08] MEDS: Sertraline 50 MG Tablet 75 MG PO (09:25)
[2025-02-08] MEDS: Docusate Sodium 100 MG Capsule PO (09:25)
[2025-02-08] MEDS: APIXABAN 5 MG TABLET PO ×2 (09:25→21:03)
[2025-02-08] MEDS: Cinacalcet HCl 30 MG Tablet PO (09:26)
[2025-02-08] MEDS: Loratadine 10 MG Tablet PO (09:26)
--- NOTE | 2025-02-08 12:38 | PCM.PN.HOSP ---
Subjective Subjective No issues, doing well. Objective Data Objective Data Vital Signs: Vital Signs Temp Pulse Resp BP Pulse Ox O2 Del Method O2 Flow Rate 98.8 F 78 15 123/51 H 95 Room Air 2 02/08/25 12:12 02/08/25 12:12 02/08/25 12:12 02/08/25 12:12 02/08/25 12:12 02/08/25 12:12 02/08/25 07:36 Oxygen Flow Rate (L/min) 2 Oxygen Delivery Method Room Air Weight: 155 lb 10.342 oz Body Mass Index (BMI) 33.7 Intake & Output: Intake and Output for Last 24 Hours 02/07/25 02/08/25 02/09/25 03:59 03:59 03:59 Intake Total 1580 / 1580 600 / 600 Balance 1580 / 1580 600 / 600 Lab / Micro Data 02/08/25 06:30 02/08/25 06:30 Labs: Laboratory Results - last 24 hr 02/07/25 11:50: Troponin T Hi Sens 2 Hr 9 02/07/25 15:45: Troponin T Hi Sens 4Hr 11 02/08/25 06:30: WBC 5.3, RBC 3.87 L, Hgb 11.3 L, Hct 35.9 L, MCV 92.8, MCH 29.2, MCHC 31.5 L, RDW Std Deviation 54.4 H, RDW Coeff of Michele 15.9 H, Plt Count 211, MPV 11.1, Immature Gran % (Auto) 0.400, Neut % (Auto) 54.5, Lymph % (Auto) 29.1, [place] % (Auto) 9.4, Eos % (Auto) 5.3 H, Baso % (Auto) 1.3 H, Absolute Neuts (auto) 2.9, Absolute Lymphs (auto) 1.55, Nucleated RBC % 0, Sodium 143, Potassium 3.9, Chloride 110 H, Carbon Dioxide 23.6, Anion Gap 9, BUN 14, Creatinine 0.76, Estim Creat Clear Calc 51.63, Est GFR (MDRD) Non-Af 81, BUN/Creatinine Ratio 18.7, Glucose 103 H, Calcium 9.5, Triglycerides 147, Cholesterol 152, LDL Cholesterol, Calc 77, VLDL Cholesterol 29, HDL Cholesterol 45, Cholesterol/HDL Ratio 3.36 Physical Exam Narrative General: Alert, Oriented x3, Cooperative, No apparent distress HEENT: Atraumatic, PERRLA, EOMI, Normocephalic Oral: Moist Mucosa Neck: Supple, No JVD Lungs: Diminished, Normal air movement, No rhonchi, No wheeze, No rales Cardiovascular: Regular rate, Regular Rhythm, Normal S1, Normal S2, No murmurs Abdomen: Soft, Non Tender, Non-Distended, No Hepato-splenomegaly Extremities: No edema, Capillary Refill Less than 3 Seconds Skin: No rashes, No breakdown Musculoskeletal: No Tenderness to Palpation of Joints or Extremities Neurological: No focal neurological deficits, moves all extremities, sensation is intact, NIH 0 Psych/Mental Status: Normal Affect, Appropriate Assessment & Plan Assessment/Plan (1) TIA (transient ischemic attack): PLAN: Plan 1. TIA versus CVA ? Will obtain an MRI ? Will obtain an echo ? PT/OT ? She is already on Eliquis, will add aspirin in case this is small vessel issues ? Will allow permissive hypertension and hold her home blood pressure medications 2. Essential HTN/HLD ? Will hold her home blood pressure medications to allow permissive hypertension for her TIA ? Will continue with her home pravastatin ? Will monitor make adjustments as necessary 3. History of DVT ? Will continue with her home Eliquis if MRI is negative 4. Anxiety/depression/dementia ? Stable ? Continue with her home medications 5. GERD ? Stable ? Continue with her PPI 6. Gout ? Stable ? Continue with allopurinol 7. Osteoporosis ? Continue with her home alendronate and Cinacalcet ? Stable DVT: SCDs Charges/Coding Visit Charges Inpatient E&M: 03422 Subs Hosp L2 NIHSS NIHSS Nursing Documentation NIHSS Nursing Documentation: NIHSS: Ischemic Stroke/TIA Start: 02/07/25 13:03 Text: For PCU Patients: NIH and Neuro Check every 4 Status: Active hours, PRN and with change in RN caregiver. Freq: [id number] Protocol: Activity Type Activity Date Activity User E-sign Co-sign Detail Recorded Client Recorded Date Recorded By Document 02/08/25 12:12 WILLIE [id number] 02/08/25 12:20 DS 02/08/25 12:12 NIH Stroke Scale [NIHSS] A score of 0 is normal or asymptomatic . Total possible score is 42. Inpatient: RN or Physician to activate a stroke alert for onset of new stroke symptoms or with NIHSS increase >/= 3 points. Following change in neurological status, NIHSS will be performed per physician order or more frequently PRN. -1a. Level of Consciousness 0 - Alert; keenly responsive -1b. LOC Questions 0 - Answers BOTH questions correctly -1c. LOC Commands 0 - Performs BOTH tasks correctly -2. Best Gaze 0 - Normal -3. Visual 0 - No visual loss -4. Facial Palsy 1 - Minor paralysis ( flattened nasolabial fold , asymmetry on smiling) -5a. Left Arm 0 - No drift; arm holds 90 ( or 45) degrees for full 10 seconds -5b. Right Arm 0 - No drift; arm holds 90 ( or 45) degrees for full 10 seconds -6a. Left Leg 0 - No drift; leg holds 30- degree position for full 5 seconds -6b. Right Leg 0 - No drift; leg holds 30- degree position for full 5 seconds -7. Limb Ataxia 0 - Absent -8. Sensory 0 - Normal; no sensory loss -9. Best Language 0 - No aphasia; normal -10. Dysarthria 1 = Mild-to- moderate dysarthria; -11. Extinction and Inattention 0 - No abnormality -Total 2 Query Text:A score of 0 is normal or asymptomatic. Total possible score is 42 . ED: Notify Physician for NIHSS increase by > / = 3 points. Inpatient: RN or Physician to activate a stroke alert for NIHSS increase of > / = 3 points. Coma Scale [Assess] -Eye Opening Spontaneous -Motor Obeys Commands -Verbal Oriented [Total] -Coma Scale Total 15
--- NOTE | 2025-02-08 12:58 | NEURO.PNOTE ---
Assessment and Plan: Neuro Assessment/Plan 79 yo F w PMH DVT, HTN on eliquis p/w after an episode of dysarthria. Also reports of right facial droop whereas the patient denies these symptoms and she reports that due to not her bottom denture in place, others might have thought of dysarthria. LDL-77. CT Head- no acute intracranial process. CTA- no LVO. Today, she reports feeling better with NIHSS-0. Diagnosis: Possible TIA Plan: Continue eliquis and statin. Follow up MRI brain. 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 Control of vascular risk factors. I personally attended this patient and spent a total time of 35 minutes evaluating this patient including clinical assessment, review of chart, medical history imaging, and determining appropriate treatment and workup. Subject: Neurology Subjective 79 yo F w PMH DVT, HTN on eliquis p/w after an episode of dysarthria. Also reports of right facial droop whereas the patient denies these symptoms and she reports that due to not her bottom denture in place, others might have thought of dysarthria. LDL-77. CT Head- no acute intracranial process. CTA- no LVO. Today, she reports feeling better with NIHSS-0. EEG Results Procedure Details EEG Procedure Details: CLAUS MCKEON is a 79 year old F with a past medical history of , who presents for evaluation of Electroencephalogram on DATE at TIME Objective Data Objective Data Vital Signs: Vital Signs Temp Pulse Resp BP Pulse Ox O2 Del Method O2 Flow Rate 98.8 F 78 15 123/51 H 95 Room Air 2 02/08/25 12:12 02/08/25 12:12 02/08/25 12:12 02/08/25 12:12 02/08/25 12:12 02/08/25 12:12 02/08/25 07:36 Oxygen Flow Rate (L/min) 2 Oxygen Delivery Method Room Air Weight: 70.6 kg Body Mass Index (BMI) 33.7 Intake & Output: Intake and Output for Last 24 Hours 02/06/25 02/07/25 02/08/25 23:59 23:59 23:59 Intake Total 1580 / 1580 600 / 600 Balance 1580 / 1580 600 / 600 Lab / Micro Data 02/08/25 06:30 02/08/25 06:30 Labs: Laboratory Results - last 24 hr 02/07/25 15:45: Troponin T Hi Sens 4Hr 11 02/08/25 06:30: WBC 5.3, RBC 3.87 L, Hgb 11.3 L, Hct 35.9 L, MCV 92.8, MCH 29.2, MCHC 31.5 L, RDW Std Deviation 54.4 H, RDW Coeff of Michele 15.9 H, Plt Count 211, MPV 11.1, Immature Gran % (Auto) 0.400, Neut % (Auto) 54.5, Lymph % (Auto) 29.1, [place] % (Auto) 9.4, Eos % (Auto) 5.3 H, Baso % (Auto) 1.3 H, Absolute Neuts (auto) 2.9, Absolute Lymphs (auto) 1.55, Nucleated RBC % 0, Sodium 143, Potassium 3.9, Chloride 110 H, Carbon Dioxide 23.6, Anion Gap 9, BUN 14, Creatinine 0.76, Estim Creat Clear Calc 51.63, Est GFR (MDRD) Non-Af 81, BUN/Creatinine Ratio 18.7, Glucose 103 H, Calcium 9.5, Triglycerides 147, Cholesterol 152, LDL Cholesterol, Calc 77, VLDL Cholesterol 29, HDL Cholesterol 45, Cholesterol/HDL Ratio 3.36 Physical Exam Narrative General: The patient appears nutritionally appropriate, well-groomed, and appears comfortable in no acute distress. Mental Status:? The patient?s mental status was normal including orientation.? Language was intact.? Cranial nerves:? Visual khanna full, and extra-ocular motion was intact. Symmetric face. Motor: Normal strength in all extremities. Sensation: Intact to touch in all extremities.? Coordination:? Bilateral finger to nose was normal.? There was no dysmetria. Gait:? deferred. NIHSS NIHSS Nursing Documentation NIHSS Nursing Documentation: NIHSS: Ischemic Stroke/TIA Start: 02/07/25 13:03 Text: For PCU Patients: NIH and Neuro Check every 4 Status: Active hours, PRN and with change in RN caregiver. Freq: [id number] Protocol: Activity Type Activity Date Activity User E-sign Co-sign Detail Recorded Client Recorded Date Recorded By Document 02/08/25 12:12 DS [id number] 02/08/25 12:20 DS 02/08/25 12:12 NIH Stroke Scale [NIHSS] A score of 0 is normal or asymptomatic . Total possible score is 42. Inpatient: RN or Physician to activate a stroke alert for onset of new stroke symptoms or with NIHSS increase >/= 3 points. Following change in neurological status, NIHSS will be performed per physician order or more frequently PRN. -1a. Level of Consciousness 0 - Alert; keenly responsive -1b. LOC Questions 0 - Answers BOTH questions correctly -1c. LOC Commands 0 - Performs BOTH tasks correctly -2. Best Gaze 0 - Normal -3. Visual 0 - No visual loss -4. Facial Palsy 1 - Minor paralysis ( flattened nasolabial fold , asymmetry on smiling) -5a. Left Arm 0 - No drift; arm holds 90 ( or 45) degrees for full 10 seconds -5b. Right Arm 0 - No drift; arm holds 90 ( or 45) degrees for full 10 seconds -6a. Left Leg 0 - No drift; leg holds 30- degree position for full 5 seconds -6b. Right Leg 0 - No drift; leg holds 30- degree position for full 5 seconds -7. Limb Ataxia 0 - Absent -8. Sensory 0 - Normal; no sensory loss -9. Best Language 0 - No aphasia; normal -10. Dysarthria 1 = Mild-to- moderate dysarthria; -11. Extinction and Inattention 0 - No abnormality -Total 2 Query Text:A score of 0 is normal or asymptomatic. Total possible score is 42 . ED: Notify Physician for NIHSS increase by > / = 3 points. Inpatient: RN or Physician to activate a stroke alert for NIHSS increase of > / = 3 points. Coma Scale [Assess] -Eye Opening Spontaneous -Motor Obeys Commands -Verbal Oriented [Total] -Coma Scale Total 15 NIHSS 1a. Level of Consciousness: 0 - Alert; keenly responsive 1b. LOC Questions: 0 - Answers BOTH questions correctly 1c. LOC Commands: 0 - Performs BOTH tasks correctly 2. Best Gaze: 0 - Normal 3. Visual: 0 - No visual loss 4. Facial Palsy: 0 - Normal symmetrical movements 5a. Left Arm: 0 - No drift; arm holds 90 (or 45) degrees for full 10 seconds 5b. Right Arm: 0 - No drift; arm holds 90 (or 45) degrees for full 10 seconds 6a. Left Le - No drift; leg holds 30-degree position for full 5 seconds 6b. Right Le - No drift; leg holds 30-degree position for full 5 seconds 7. Limb Ataxia: 0 - Absent 8. Sensory: 0 - Normal; no sensory loss 9. Best Language: 0 - No aphasia; normal 10. Dysarthria: 0 - Normal 11. Extinction and Inattention: 0 - No abnormality Total: 0
[2025-02-08] MEDS: clonazePAM 0.5 MG Tablet PO (21:03)
[2025-02-08] MEDS: Pravastatin 20 MG Tablet PO (21:03)
[2025-02-08] MEDS: Donepezil HCl 10 MG Tablet PO (21:03)
[2025-02-09] VITALS (7 sets, daily range): BP systolic 110–138; BP diastolic 46–64; PULSE 60–76; RESP 16–18; TEMP 36.2–36.8; O2SAT 92–98
[2025-02-09] MEDS: Alendronate Sodium 70 MG Tablet PO (04:52)
--- NOTE | 2025-02-09 07:30 | MRI_ITS ---
PROCEDURE: BRAIN WITHOUT CONTRAST 02/09/2025 REASON FOR EXAM: Transient ischemic attack TECHNIQUE: Noncontrast brain MRI. Multiplanar and multisequence images were obtained. FINDINGS: Brain: Mild hyperintense T2/FLAIR signal in the periventricular and deep white matter suggest chronic small vessel ischemic disease. Ventricles and sulci are prominent consistent with age-related involution. No intra-axial or extra-axial hemorrhage. No restricted diffusion. No mass, mass effect or midline shift. Major Intracranial Vessels: Normal flow voids are seen in the anterior circulation and in the vertebrobasilar system Sinuses: Small mucous retention cysts in the base of the right maxillary sinus. Mild ethmoid air cells wall thickening. Other sinuses are clear. Mastoids: No effusions detected. 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 OTHERWISE UNR EMARKABLE BRAIN MRI WITHOUT CONTRAST. Reading [facility]
[2025-02-09] MEDS: Allopurinol 100 MG Tablet 200 MG PO (08:39)
[2025-02-09] MEDS: Aspirin 81 MG TAB.CHEW PO (08:39)
--- NOTE | 2025-02-09 09:03 | CASEMGMT ---
Addendum entered by Johanna Correa 02/09/25 09:19: Fax confirmation rec'd. Johanna Correa DC Planning Asst. Original Note: Discharge Planning Updates faxed to Mahesh Herrera. Requested follow up if there are concerns with return to [place]. Johanna Correa DC Planning Asst,
--- NOTE | 2025-02-09 10:20 | PCM.DC ---
Discharge Instructions Diet Discharge Diet: Low fat / Low cholesterol DC O2, CPAP, BIPAP needs Home O2 Discharge instructions: No Dressing / Incision Discharge Activity: Return to Normal Activity Dressing / Incision Call your doctor if you observe: Fever of 101 or Higher, Shortness of breath, Dizziness, Fainting spells, Swelling in the ankles, Chest pain and Increased palpitations (irregular heartbeat) Follow Up Care Test Results: Test results from this visit will be discussed in further detail at your follow-up appointment, if applicable. Discharge Plan Admission Admit Date/Time: 02/07/25 11:50 Attending Provider: Jaciel Olivier Primary Care Provider: Gerda Wilks Consulting Providers: Anatoly Whalen; Abdiel Eugene; Cynthia Padilla; Mayte Philippe; Irene Bragg; Yash Stevenson; Tania Scott; Carlos Rob; Kam Reed; Vaibhav Chappell; Nevaeh Hartman; Rogelio Novak; Anahi Mario; Nirali Up; Hossein Foster; Kurt Rodriguez; Robi Mendez; Marco Antonio Lowe; Zainab Marti; Geovani Gregg Discharge Orders/Prescriptions Prescriptions: Continued alendronate 70 mg tablet 70 mg PO MO allopurinol 100 mg tablet 200 mg PO DAILY omeprazole 20 mg capsule,delayed release(DR/EC) 20 mg PO DAILY pravastatin 20 mg tablet 20 mg PO QHS fluticasone propionate 50 mcg/actuation spray,suspension 1 spray INTRANASAL DAILY loratadine 10 mg tablet 10 mg PO DAILY bupropion HCl 200 mg tablet sustained-release 12 hr 200 mg PO BID potassium chloride [Klor-Con M10] 10 mEq tablet,ER particles/crystals 10 meq PO DAILY tramadol 50 mg tablet 50 mg PO Q12H PRN (Reason: Pain) donepezil 10 mg tablet 10 mg PO QHS cinacalcet 30 mg tablet 30 mg PO DAILY clonazepam 0.5 mg tablet 0.5 mg PO QHS docusate sodium [Col-Rite] 100 mg capsule 100 mg PO DAILY Eliquis 5 mg tablet 5 mg PO BID guaifenesin [Adult Tussin Chest Congestion] 100 mg/5 mL liquid 200 mg PO Q4H PRN (Reason: congestion) losartan 50 mg tablet 50 mg PO DAILY metoprolol tartrate 25 mg tablet 12.5 mg PO BID minoxidil 2.5 mg tablet 2.5 mg PO DAILY sertraline 50 mg tablet 75 mg PO DAILY torsemide 10 mg tablet 10 mg PO DAILY Patient Comments: PT TAKES IN AFTERNOON. ondansetron HCl 4 mg tablet 4 mg PO Q8H PRN (Reason: nausea and vomiting) guaifenesin [Mucinex] 600 mg tablet extended release 12hr 600 mg PO BID AsperFlex(m.salicylat-menthol) 15-10 % cream 1 applic topical Q12H PRN (Reason: muscle pain) magnesium hydroxide [Dulcolax (magnesium hydroxide)] 400 mg/5 mL suspension 30 ml PO DAILY PRN (Reason: constipation) aluminum-magnesium hydroxide 200-200 mg/5 mL suspension 30 ml PO Q4H PRN (Reason: GI bleeding prophylaxis) acetaminophen [Tylenol] 325 mg Tablet 650 mg PO QHS PRN (Reason: Pain Score 1-10/Temp > 100.7 F) polyethylene glycol 3350 [Miralax] 17 gram/dose powder 17 g PO DAILY PRN (Reason: constipation) Referrals / Follow Up: Gerda Wilks MD [Primary Care Provider] - Within 1 Week Disposition Disposition (needs filled in before D/C Order can be placed): Home, Self Care
[2025-02-09] MEDS: Sertraline 50 MG Tablet 75 MG PO (10:36)
[2025-02-09] MEDS: Docusate Sodium 100 MG Capsule PO (10:36)
[2025-02-09] MEDS: APIXABAN 5 MG TABLET PO (10:37)
[2025-02-09] MEDS: Cinacalcet HCl 30 MG Tablet PO (10:37)
[2025-02-09] MEDS: Loratadine 10 MG Tablet PO (10:37)
[2025-02-09] MEDS: Pantoprazole Sodium 20 MG Tablet PO (10:37)
[2025-02-09] MEDS: buPROPion 100 MG Tablet 200 MG PO (10:37)
--- NOTE | 2025-02-09 10:48 | CASEMGMT ---
SHAISTA met with patient as she is from [facility]. Patient confirmed her plan is to return to [facility]. Patient stated she will need a ride back. SW put in an order for home PT/OT for patient. SHAISTA also reminded patient if she is able to get a copy of advance directives to [facility]. Plan: d/c back to [facility]. Physicians will transport patient via wheelchair van. Di PARIKH
--- NOTE | 2025-02-09 10:50 | CASEMGMT ---
SW did not complete a PHQ9 as patient did not have a Stroke. Di PARIKH
--- NOTE | 2025-02-09 10:53 | CASEMGMT ---
LIEBERMAN Met with patient to complete LIEBERMAN form. LIEBERMAN form and its content were verbally explained and patient's questions were answered to the best of my ability.? Patient voiced understanding and signed LIEBERMAN form.? Patient provided a copy of signed LIEBERMAN form and original placed in patient's chart.? Patient had no further questions. Johanna Correa, Discharge Planning Asst
--- NOTE | 2025-02-09 11:00 | CASEMGMT ---
Discharge Planning Discharge Instructions, HH order, and transport time faxed to [facility]. Physicians will transport pt at 1p. Nursing, SW, pt, and her MARICHUY (Sandee) updated. Johanna Correa DC Planning Asst.
--- NOTE | 2025-02-09 12:57 | DS.PCM_ITS ---
Providers Date of Admission: 02/07/25 Primary Care Physician: Dr. Gerda Wilks MD Consultations 02/07/25 13:03 Consult: Tele-Neurology Routine Consulting Provider: [facility] Reason for Consult: Acute Ischemic Stroke/TIA EMERGENT Consult: No MD Notified: Yes Date Notified: 02/07/25 Time Notified: 13:19 Method of Notification: Answering Service Nursing Unit Staff Notify [facility] of Tele-Neurology Consult: Yes Reason For Visit: TIA/CVA Diagnosis Discharge Diagnosis (1) TIA (transient ischemic attack): Status: Acute Code(s): G45.9 - Transient cerebral ischemic attack, unspecified Medications at Discharge Home Medications alendronate 70 mg tablet 70 mg PO MO OSTEOPOROSIS 08/07/21 allopurinol 100 mg tablet 200 mg PO DAILY GOUT 08/07/21 bupropion HCl 200 mg tablet,12 hr sustained-release 200 mg PO BID mood 08/07/21 fluticasone propionate 50 mcg/actuation nasal spray,suspension 1 spray intranasal DAILY allergies 08/07/21 loratadine 10 mg tablet 10 mg PO DAILY allergies 08/07/21 omeprazole 20 mg capsule,delayed release 20 mg PO DAILY reflux 08/07/21 potassium chloride 10 mEq tablet,extended release(part/cryst) (Klor-Con M) 10 meq PO DAILY supplement 08/07/21 pravastatin 20 mg tablet 20 mg PO QHS cholesterol 08/07/21 tramadol 50 mg tablet 50 mg PO Q12H PRN Pain 07/08/22 acetaminophen 325 mg tablet (Tylenol) 650 mg PO QHS PRN Pain Score 1-10/Temp > 100.7 F 02/07/25 aluminum-magnesium hydroxide 200 mg-200 mg/5 mL oral suspension 30 ml PO Q4H PRN GI bleeding prophylaxis 02/07/25 apixaban 5 mg tablet (Eliquis) 5 mg PO BID dvt 02/07/25 cinacalcet 30 mg tablet 30 mg PO DAILY parathyroid 02/07/25 clonazepam 0.5 mg tablet 0.5 mg PO QHS 02/07/25 docusate sodium 100 mg capsule (Col-Rite) 100 mg PO DAILY CONSTIPATION 02/07/25 donepezil 10 mg tablet 10 mg PO QHS memory 02/07/25 guaifenesin 100 mg/5 mL oral liquid (Adult Tussin Chest Congestion) 200 mg PO Q4H PRN congestion 02/07/25 guaifenesin 600 mg tablet, extended release 12 hr (Mucinex) 600 mg PO BID 02/07/25 losartan 50 mg tablet 50 mg PO DAILY bp 02/07/25 magnesium hydroxide 400 mg/5 mL oral suspension (Dulcolax (magnesium hydroxide)) 30 ml PO DAILY PRN constipation 02/07/25 methyl salicylate 15 %-menthol 10 % topical cream (AsperFlex (methyl salicylate- menthol)) 1 applic topical Q12H PRN muscle pain 02/07/25 metoprolol tartrate 25 mg tablet 12.5 mg PO BID heart 02/07/25 minoxidil 2.5 mg tablet 2.5 mg PO DAILY bp 02/07/25 ondansetron HCl 4 mg tablet 4 mg PO Q8H PRN nausea and vomiting 02/07/25 polyethylene glycol 3350 17 gram/dose oral powder (Miralax) 17 g PO DAILY PRN constipation 02/07/25 sertraline 50 mg tablet 75 mg PO DAILY depression 02/07/25 torsemide 10 mg tablet 10 mg PO DAILY water pill 02/07/25 Hospital Course Operations None Procedures 2-D Echocardiogram Summary of Care Provided Minutes Spent on Discharge: 36 Hospital Course: Per HPI: CLAUS MCKEON, is a 79 F who presents from assisted living with concerns of a stroke. Currently NIH is 0 but they noted slurred speech and right facial droop. She does have a dry mouth so I do not think that she mostly has dysarthria at this time. She is already on Eliquis for history of DVT and is on blood pressure medications. She says that she feels fine and is back to her baseline. Workup in the ER was unremarkable, CTA of the head and neck was negative for an LVO and CT of the brain was also negative for hemorrhage. Hospital Course: 1. TIA?79-year-old female presented to the hospital from assisted living with concerns of a stroke as she had a slight facial droop and what they felt was slurred speech. On arrival to the ER her NIH was 0 and MRI was negative for stroke. Echocardiogram is currently pending but I do not believe that it is necessary to delay discharge given the fact that her MRI was unremarkable also she is already on Eliquis and her CT of the head and neck was normal. Will continue with her home pravastatin as well with no additional changes to her medications per neurology. I discussed with her the plan for discharge today and she expressed understanding of the risks and benefits of going back to the assisted living, and would like to go today. I do recommend she follow-up with her PCP in 3 to 5 days but no real need to follow-up with neurology as an outpatient 2. Essential hypertension, hyperlipidemia, history of DVT, anxiety, depression, dementia, GERD, gout, osteoporosis are all chronic medical conditions which complicate her care. Her home medications were continued where appropriate Physical Exam Narrative General: Alert, Oriented x3, Cooperative, No apparent distress HEENT: Atraumatic, PERRLA, EOMI, Normocephalic Oral: Moist Mucosa Neck: Supple, No JVD Lungs: Diminished, Normal air movement, No rhonchi, No wheeze, No rales Cardiovascular: Regular rate, Regular Rhythm, Normal S1, Normal S2, No murmurs Abdomen: Soft, Non Tender, Non-Distended, No Hepato-splenomegaly Extremities: No edema, Capillary Refill Less than 3 Seconds Skin: No rashes, No breakdown Musculoskeletal: No Tenderness to Palpation of Joints or Extremities Neurological: No focal neurological deficits, moves all extremities, sensation is intact, NIH 0 Psych/Mental Status: Normal Affect, Appropriate Weight / BMI Weight Weight: 155 lb 10.342 oz Body Mass Index (BMI) 33.7 ABG / Lab / Microbiology Data 02/08/25 06:30 02/08/25 06:30 Radiography Diagnostic Testing: Radiology Impression Brain MRI 02/09/25 07:30 IMPRESSION: CEREBRAL ATROPHY AND WITH CHRONIC SMALL VESSEL ISCHEMIC DISEASE. OTHERWISE UNREMARKABLE BRAIN MRI WITHOUT CONTRAST. [facility] Instructions Discharge Diet: Low fat / Low cholesterol Call your doctor if you observe: Fever of 101 or Higher, Shortness of breath, Dizziness, Fainting spells, Swelling in the ankles, Chest pain and Increased palpitations (irregular heartbeat) DC O2, CPAP, BIPAP Needs Home O2 Discharge instructions: No Meaningful Use Info Meaningful Use Meaningful Use Diagnoses (Choose all that apply): None applicable Ischemic Stroke Statin Dosing Therapy Reference: STATIN DOSE THERAPY REFERENCE: * Patients > 75 years receive moderate or high dose statin therapy. * Patients 75 years or YOUNGER should receive HIGH intensity statin dose unless contraindicated. You will be required to document reason for non-treatment if statin daily dose does not meet guidelines. HIGH DOSE STATIN THERAPY DAILY Atorvastatin > than or = to 40 mg Rosuvastatin > than or = to 20 mg Amlodipine + Atorvastatin > than or = to 2.5/40 mg Ezetimibe + Simvastatin 10/80 mg Simvastatin 80mg Discharge Plan Admission Admit Date/Time: 02/07/25 11:50 Attending Provider: Jaciel Olivier Primary Care Provider: Gerda Wilks Consulting Providers: Anatoly Whalen; Abdiel Eugene; Cynthia Padilla; Mayte Philippe; Irene Bragg; Yash Stevenson; Tania Scott; Carlos Rob; Kam Reed; Vaibhav Chappell; Nevaeh Hartman; Rogelio Novak; Anahi Mario; Nirali Up; Hossein Foster; Kurt Rodriguez; Robi Mendez; Marco Antonio Lowe; Zainab Marti; Geovani Gregg Discharge Orders/Prescriptions Prescriptions: Continued alendronate 70 mg tablet 70 mg PO MO allopurinol 100 mg tablet 200 mg PO DAILY omeprazole 20 mg capsule,delayed release(DR/EC) 20 mg PO DAILY pravastatin 20 mg tablet 20 mg PO QHS fluticasone propionate 50 mcg/actuation spray,suspension 1 spray INTRANASAL DAILY loratadine 10 mg tablet 10 mg PO DAILY bupropion HCl 200 mg tablet sustained-release 12 hr 200 mg PO BID potassium chloride [Klor-Con M10] 10 mEq tablet,ER particles/crystals 10 meq PO DAILY tramadol 50 mg tablet 50 mg PO Q12H PRN (Reason: Pain) donepezil 10 mg tablet 10 mg PO QHS cinacalcet 30 mg tablet 30 mg PO DAILY clonazepam 0.5 mg tablet 0.5 mg PO QHS docusate sodium [Col-Rite] 100 mg capsule 100 mg PO DAILY Eliquis 5 mg tablet 5 mg PO BID guaifenesin [Adult Tussin Chest Congestion] 100 mg/5 mL liquid 200 mg PO Q4H PRN (Reason: congestion) losartan 50 mg tablet 50 mg PO DAILY metoprolol tartrate 25 mg tablet 12.5 mg PO BID minoxidil 2.5 mg tablet 2.5 mg PO DAILY sertraline 50 mg tablet 75 mg PO DAILY torsemide 10 mg tablet 10 mg PO DAILY Patient Comments: PT TAKES IN AFTERNOON. ondansetron HCl 4 mg tablet 4 mg PO Q8H PRN (Reason: nausea and vomiting) guaifenesin [Mucinex] 600 mg tablet extended release 12hr 600 mg PO BID AsperFlex(m.salicylat-menthol) 15-10 % cream 1 applic topical Q12H PRN (Reason: muscle pain) magnesium hydroxide [Dulcolax (magnesium hydroxide)] 400 mg/5 mL suspension 30 ml PO DAILY PRN (Reason: constipation) aluminum-magnesium hydroxide 200-200 mg/5 mL suspension 30 ml PO Q4H PRN (Reason: GI bleeding prophylaxis) acetaminophen [Tylenol] 325 mg Tablet 650 mg PO QHS PRN (Reason: Pain Score 1-10/Temp > 100.7 F) polyethylene glycol 3350 [Miralax] 17 gram/dose powder 17 g PO DAILY PRN (Reason: constipation) Referrals / Follow Up: Gerda Wilks MD [Primary Care Provider] - Within 1 Week Disposition Disposition (needs filled in before D/C Order can be placed): Assisted Living Charges/Coding Visit Charges Inpatient E&M: 19855 Disch Hosp >30min
== END 2025-02-09 10:22 | disposition home or self-care (01) ==
LOC: ED 12:07 → PCU 12:13
PROVIDERS: Admitting Provider Family Medicine; Emergency Provider Emergency Medicine; PCP Internal Medicine; Visit Provider Family Medicine
DX: G45.9 Transient cerebral ischemic attack, unspecified (principal); F03.90 Unspecified dementia, unspecified severity, without behavioral disturbance, psychotic disturbance, mood disturbance, and anxiety; I10 Essential (primary) hypertension; F41.9 Anxiety disorder, unspecified; Z86.718 Personal history of other venous thrombosis and embolism; R47.81 Slurred speech; Z87.891 Personal history of nicotine dependence; R47.1 Dysarthria and anarthria; E78.5 Hyperlipidemia, unspecified; K21.9 Gastro-esophageal reflux disease without esophagitis; Z79.01 Long term (current) use of anticoagulants; R29.810 Facial weakness; R47.01 Aphasia; Z79.899 Other long term (current) drug therapy; Z79.51 Long term (current) use of inhaled steroids; F32.A Depression, unspecified; M10.9 Gout, unspecified; M81.0 Age-related osteoporosis without current pathological fracture
CPT/HCPCS: 36415; 70450; 70496; 70498; 70551; 71045; 80048; 80061; 81001; 84484; 85025; 85610; 85730; 92610; 93005; 93306; 94762; 96360; 96361; 97162; 97166; 97530; 97802; 99221; 99285; P9612; Q9967; A4216; G0378

== ENCOUNTER → 2025-02-12 | Outpatient (REF) | payer MEDICARE, MEDICAID, SELFPAY ==
--- OUTSIDE RECORDS SUMMARY | 2025-02-12 04:38 | XMS RPT_ITS | CCD ---
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 Gerda Wilks Primary Care Provider Dr. Ladonna Sidhu Emergency Provider Dr. Osman Nanceit Provider Dr. Osman Nance Attending Provider Dr. Osman Nance Other Provider Dr. Niranjan Hartman Other Provider Dr. Israel Garza Attending Provider Dr. Israel Garza Other Provider Dr. Gerda Wilks Primary Care Provider Dr. Ladonna Sidhu Emergency Provider Dr. Osman Nance Provider Dr. Osman Nance Attending Provider Dr. Osman Nance Other Provider Dr. Niranjan Hartman Other Provider Dr. Israel Garza Attending Provider Dr. Israel Garza Other Provider Dr. Tha Baron Emergency Provider Dr. Mirella Issait Provider Dr. Mirella Issa Attending Provider Dr. Soco Issaa Other Provider Dr. Salina Li Attending Provider Dr. Salina Li Other Provider Dr. Emily Marti Other Provider Dr. Emily Marti Attending Provider Maegan, Dr. Vu Referring Provider Carolin, Dr. Lorenz Referring Provider Unavailable Carolin, Dr. Lorenz Primary Care Provider UnavailDr. Tha West Emergency Provider [facility], Dr. Vu Admit Provider [facility], Dr. Vu Attending Provider [facility], Dr. Vu Other Provider [facility], Dr. Vu Referring Provider Dr. Salina Li Attending Provider Dr. Salina Li Other Provider Dr. Emily Marti Other Provider Dr. Emily Marti Attending Provider Dr. Gerda Wilks Referring Provider Unavailable Gualejandrina, Dr. Lorenz Primary Care Provider UnavailDr. Gerda Abbasi Referring Provider Unavailable Dr. Salina Li Attending Provider Dr. Salina Li Other Provider Unavailable Primary Care Provider Unavailabl e REGOTTI, ENEDINA Referring Unavailable Unavailable Primary Care Provider Unavailabl e REGOTTI, ENEDINA Referring Unavailable REGOTTI, ENEDINA Attending Unavailable REGOTTI, ENEDINA Referring Unavailable REGOTTI, ENEDINA Attending Unavailable Carolin FELICIANO, Dr. Lorenz Primary Care Provider Unava sy Wilks MD, Dr. Lorenz Attending Provider Unavailsimran Sibley MD, Compa Emergency Provider Charline FELICIANO, Dr. Jaciel Dela Cruz Admit Provider Charline FELICIANO, Dr. Jaciel Dela Cruz Attending Provider Marlee FELICAINO, Anatoly Other Provider Unavailable Valorie FELICIANO, Dr. Meadows Other Provider Cynthia Padilla MD Other Provider Unavailable Dr. Mayte Philippe DO Other Provider Yemi FELICIANO, Dr. Bonilla Other Provider Elva FELICIANO, Dr. Berrios Other Provider Sonia FELICIANO, Dr. Marin Other Provider Darron FELICIANO, Dr. Gonzalez Other Provider Derek FELICIANO, Dr. Humphrey Other Provider Ta FELICIANO, Dr. Esposito Other Provider Devan FELICIANO, Nevaeh Other Provider Kishore FELICIANO, Dr. Mercado Other Provider Fabiano FELICIANO, Dr. Christian Other Provider Annel FELICIANO, Dr. Campoverde Other Provider Cristian FELICIANO, Dr. Hossein Gómez Other Provider Michael FELICIANO, Dr. Hicks Other Provider Vanessa FELICIANO, Dr. Rosenbaum Other Provider Mynor FELICIANO, Dr. Bernard Other Provider Figueroa FELICIANO, Dr. Lamb Other Provider Unavailable Marysol FELICIANO, Geovani Other Provider Unavailable Charline FELICIANO, Dr. Jaciel Dela Cruz Other Provider Gudla, Gerda Primary Care Unavailable Kendell Bradley Attending Unavailabl e Gudla, Gerda Primary Care Unavailable Gudla OLS, Gerda Attending Unavailable Gudla OLS, Gerda Referring Unavailable Gudla, Gerda Primary Care Unavailable Gudla OLS Gerda Attending Unavailable Gudla, Gerda Primary Care Unavailable Gudla OLS, Gerda Attending Unavailable Gudla, Gerda Primary Care Unavailable Gudla OLS, Gerda Attending Unavailable Gudla, Gerda Primary Care Unavailable Gudla OLS, Gerda Attending Unavailable Yuan Riveraril Attending Unavailable Gudla, Gerda Primary Care Unavailable Kotsonis, Jaciel F Admitting Unavailable Kotsonis, Jaciel F Attending Unavailable Gudla, Gerda Primary Care Unavailable Marlee, Anatoly Consulting Unavailable Adeli, Amir Consulting Unavailable Hinduja, Cynthia Consulting Unavailable Jose Martin, Mayte Consulting Unavailable Zha, Irene Consulting Unavailable Elva, Yash Consulting Unavailable Sonia, Tania Consulting Unavailable Bittar, Carlos Consulting Unavailable Kam Reed Consulting Unavailable Vaibhav Chappell Consulting Unavailable Nevaeh Hartman Consulting Unavailable Rogelio Novak Consulting Unavailable Anahi Mario Consulting Unavailable Nirali Up Consulting Unavailable Hossein Foster Consulting UnavailKurt Gill Consulting Unavailable Vanessa, Calebi Consulting Unavailable Marco Antonio Lowe Consulting Unavailable Zainab Marti Consulting Unavailable Marysol, Geovani Consulting Unavailable MaiteonisRowdyJcaiel F Consulting Unavailable Gilmore, Eduardo Referring Unavailable Gilmore, Eduardo Attending Unavailable Gudla, Gerda Primary Care Unavailable Gudla, Gerda Primary Care Unavailable Gudla OLS, Gerda Attending Unavailable Gudla, Gerda Primary Care Unavailable Gudla OLS, Gerda Attending Unavailable Anatoly Whalen Consulting Unavailable Kotsonis, Jaciel F Attending Unavailable Kotsonis, Jaciel F Admitting Unavailable Gudla, Gerda Primary Care Unavailable Adeli, Amir Consulting Unavailable Hinduja, Cynthia Consulting Unavailable Jose Martin, Mayte Consulting Unavailable Zha, Irene Consulting Unavailable Elva, Yash Consulting Unavailable Sonia, Tania Consulting Unavailable Bittar, Carlos Consulting Unavailable Kam Reed Consulting Unavailable Vaibhav Chappell Consulting Unavailable Nevaeh Hartman Consulting Unavailable Rogelio Novak Consulting Unavailable Anahi Mario Consulting Unavailable Annel, Nirali Consulting Unavailable Cristian, Hossein Rico Consulting UnavailKurt Gill Consulting Unavailable Vanessa, Rami Consulting Unavailable Marco Antonio Lowe Consulting Unavailable Zainab Marti Consulting Unavailable Marysol, Yousef Consulting Unavailable Allergies Allergy Classification Reported Allergen(s) Allergy Type Date of Onset Reaction(s) Facility (20 sources) natural latex rubber; Translations: [Latex, Natural Rubber] Propensity to adverse reactions 2022 Rash [facility] (5 sources) Latex; Translations: [LATEX] Drug Allergy 07-23-2023 Swelling [facility] Medications Current Medications Medication Drug Class(es) Dates Sig (Normalized) Sig (Original) acetaminophen 325 mg oral tablet (20 sources) Start: 05-15-2022 End: 02-07-2025 Acetaminophen (Tylenol) 325 mg Tablet Active 650 mg PO AT BEDTIME as needed for Pain Score 1-10/Temp > 100.7 F February 07, 2025 12:00am Start: 05-15-2022 take 2 tablets by mo uth every six hours as needed Acetaminophen (Tylenol) 325 mg Tablet Active 650 MG PO EVERY 6 HOURS NEEDED 0 May 15, 2022 12:00am take 2 tablets by mo uth once daily acetaminophen (TYLENOL) 325 mg tablet Take 650 mg by mouth once daily. 0 Active Comment on above: Take 650 mg by mouth once daily. alendronic acid 70 mg oral tablet (20 sources) Bisphosphonate Start: 1 take 1 tablet by mouth once Alendronate 70 mg tablet Active 70 mg PO MO August 07, 2021 1:00am Comment on above: Take 70 mg by mouth one time a week. allopurinol 100 mg oral tablet (20 sources) Xanthine Oxidase Inhibitor Start: 3 take 1 tablet by mouth once daily allopurinol (ZYLOPRIM) 100 mg tablet Take 100 mg by mouth once daily. 0 07/11/2023 Active Start: 08-07-2021 take 2 tablets by mo uth once daily Allopurinol 100 mg tablet Active 200 mg PO DAILY August 07, 2021 1:00am Start: 08-07-2021 take 200 mg by mouth once sammy y Allopurinol Active 200 MG PO DAILY August 07, 2021 1:00am Comment on above: Take 100 mg by mouth once daily. aluminum hydroxide 40 mg/ml / magnesium hydroxide 40 mg/ml oral suspension (2 sources) Start: take 1 mL by mouth every four hours as needed Aluminum-Magnesium Hydroxide 200-200 mg/5 mL suspension Active 30 mL PO Q4H as needed for GI bleeding prophylaxis February 07, 2025 12:00am apixaban 5 mg oral tablet (2 sources) Factor Xa Inhibitor Start: 5 take 1 tablet by mouth twice daily Apixaban (Eliquis) 5 mg tablet Active 5 mg PO TWICE A DAY February 07, 2025 12:00am biotin 1 mg oral tablet (3 sources) Start: 0 Biotin 1 mg tab Take 1,000 mcg by mouth once daily. 0 05/18/2020 Active Comment on above: Take 1,000 mcg by mo ut once daily. 12 hr buPROPion hydrochloride 200 mg extended release oral tablet (20 sources) Aminoketone Start: 3 take 1 tablet by mouth once daily buPROPion SR (WELLBUTRIN SR) 200 mg 12 hr tablet Take 200 mg by mouth once daily. 0 06/27/2023 Active Start: 08-07-2021 take 1 tablet by chloe th twice daily Bupropion Hcl 200 mg tablet sustained-release 12 hr Active 200 mg PO TWICE A DAY August 07, 2021 [...] as needed. cinacalcet 30 mg oral tablet (5 sources) Calcium-sensing Receptor Agonist Start: 5 take 1 tablet by mouth once daily Cinacalcet 30 mg tablet Active 30 mg PO DAILY February 07, 2025 12:00am Start: 06-27-2023 take 1 tablet by chloe th once daily cinacalcet (SENSIPAR) 30 mg tablet Take 30 mg by mouth once daily. 0 06/27/2023 Active Comment on above: Take 30 mg by mouth once daily. clonazePAM 0.5 mg oral tablet (20 sources) Benzodiazepine Start: 5 take 1 tablet by mouth at bedtime Clonazepam 0.5 mg tablet Active 0.5 mg PO AT BEDTIME February 07, 2025 12:00am Start: 07-05-2023 take 1 tablet by chloe th once daily clonazePAM (KLONOPIN) 0.5 mg tablet Take 0.5 mg by mouth once daily. 0 07/05/2023 Active Start: 08-07-2021 End: 05-15-2022 take 1 tablet by mouth every twelve hours as needed for anxiety Clonazepam 0.5 mg tablet Discontinued 0.5 mg PO EVERY 12 HOURS NEEDED as needed for Anxiety August 07, 2021 1:00am May 15, 2022 10:28am Comment on above: Take 0.5 mg by mouth once daily. docusate sodium 100 mg oral capsule (2 sources) Start: 02-08-20 take 1 capsule by mouth once daily Docusate Sodium (Col-Rite) 100 mg capsule Active 100 mg PO DAILY February 07, 2025 12:00am donepezil hydrochloride 10 mg oral tablet (2 sources) Start: 02-08-20 take 1 tablet by mouth at bedtime Donepezil 10 mg tablet Active 10 mg PO AT BEDTIME February 07, 2025 12:00am ferrous sulfate 325 mg delayed release oral tablet (3 sources) Start: 08-07-20 Ferrous Sulfate Active MG PO August 07, 2021 1:00am fluticasone propionate 0.05 mg/actuat metered dose nasal spray (20 sources) Corticosteroid Start: 08-07-20 Fluticasone Propionate 50 mcg/actuation spray,suspension Active 1 NMA INTRANASAL DAILY August 07, 2021 1:00am Start: 08-07-2021 Fluticasone Pr opionate Active 1 SPRAY INTRANASAL DAILY August 07, 2021 1:00am Start: 08-07-2021 guaiFENesin 20 mg/ml oral solution (4 sources) Start: 02-07-2025 take 200 mg by mouth every four hours as needed for congestion Guaifenesin (Adult Tussin Chest Congestion) 100 mg/5 mL liquid Active 200 mg PO Q4H as needed for congestion February 07, 2025 12:00am Start: 02-07-2025 take 1 tablet by chloe twice daily, then take 1 tablet by mouth every twelve hours Guaifenesin (Mucinex) 600 mg tablet extended release 12hr Active 600 mg PO TWICE A DAY February 07, 2025 12:00am loratadine 10 mg oral tablet (20 sources) Start: 08-07-2021 take 1 tablet by mouth once daily Loratadine 10 mg tablet Active 10 mg PO DAILY August 07, 2021 1:00am losartan potassium 50 mg oral tablet (20 sources) Angiotensin 2 Receptor Elana Start: 02-07-2025 take 1 tablet by mouth once daily Losartan 50 mg tablet Active 50 mg PO DAILY February 07, 2025 12:00am Start: 07-11-2023 losartan (COZA AR) 100 mg tablet Take 30 mg by mouth once daily. 0 07/11/2023 Active Start: 08-07-2021 End: 02-07-2025 take 1 tablet by mouth once daily Losartan 100 mg tablet Discontinued 100 mg PO DAILY August 07, 2021 1:00am February 07, 2025 9:48am Comment on above: Take 30 mg by mouth once daily. Magnesium Hydroxide (2 sources) Start: take 1 mL by mouth once daily as needed for constipation Magnesium Hydroxide (Dulcolax (Magnesium Hydroxide)) 400 mg/5 mL suspension Active 30 mL PO DAILY as needed for constipation February 07, 2025 12:00am Methyl Salicylate-Menthol (Asperflex(M.Salicylat-M enthol)) 15-10 % cream (2 sources) Start: Methyl Salicylate-Menthol (Asperflex(M.Salic ylat-Menthol)) 15-10 % cream Active 1 NMA TOPICAL Q12H as needed for muscle pain February 07, 2025 12:00am metoprolol tartrate 25 mg oral tablet (2 sources) beta-Adrenergic Elana Start: Metoprolol Tartrate 25 mg tablet Active 12.5 mg PO TWICE A DAY February 07, 2025 12:00am minoxidil 2.5 mg oral tablet (2 sources) Arteriolar Vasodilator Start: take 1 tablet by mouth once daily Minoxidil 2.5 mg tablet Active 2.5 mg PO DAILY February 07, 2025 12:00am nystatin 100 unt/mg topical powder (7 sources) Polyene Antifungal Start: Nystatin (Nyamyc) 100,000 unit/gram Powder Active 1 APPLIC TOPICAL TWICE A DAY 0 May 14, 2022 11:00pm omeprazole 20 mg delayed release oral capsule (20 sources) Proton Pump Inhibitor Start: take 1 capsule by mouth once daily Omeprazole 20 mg capsule,delayed release(DR/EC) Active 20 mg PO DAILY August 07, 2021 1:00am Comment on above: Take 1 tablet by chloe th once daily. ondansetron 4 mg oral tablet (2 sources) Serotonin-3 Receptor Antagonist Start: take 1 tablet by mouth every eight hours as needed for nausea and vomiting Ondansetron Hcl 4 mg tablet Active 4 mg PO Q8H as needed for nausea and vomiting February 07, 2025 12:00am polyethylene glycol 3350 27695 mg powder for oral solution (20 sources) Osmotic Laxative Start: End: Polyethylene Glycol 3350 (Miralax) 17 gram/dose powder Active 17 g PO DAILY as needed for constipation February 07, 2025 12:00am microencapsulated potassium chloride 10 meq extended release oral tablet (20 sources) Start: Potassium Chloride (Klor-Con M10) 10 mEq tablet,ER particles/crystals Active 10 meq PO DAILY August 07, 2021 1:00am Comment on above: Take 1 tablet by chloe once daily. pravastatin sodium 20 mg oral tablet (20 sources) HMG-CoA Reductase Inhibitor Start: take 1 tablet by mouth at bedtime Pravastatin 20 mg tablet Active 20 mg PO AT BEDTIME August 07, 2021 1:00am Comment on above: Take 20 mg by mouth once daily. sertraline 50 mg oral tablet (20 sources) Serotonin Reuptake Inhibitor Start: Sertraline 50 mg tablet Active 75 mg PO DAILY February 07, 2025 12:00am Start: 08-07-2021 End: 02-07-2025 take 1 tablet by mouth once daily Sertraline 100 mg tablet Discontinued 100 mg PO DAILY August 07, 2021 1:00am February 07, 2025 9:49am Comment on above: Take 100 mg by mouth once daily. torsemide 10 mg oral tablet (20 sources) Loop Diuretic Start: 02-07-2025 take 1 tablet by mouth once daily Torsemide 10 mg tablet Active 10 mg PO DAILY February 07, 2025 12:00am Start: 07-13-2023 take 1 tablet by chloe th once daily torsemide (DEMADEX) 10 mg tablet Take 10 mg by mouth once daily. 0 07/13/2023 Active Start: 08-07-2021 End: 02-07-2025 take 10 mg by mouth once daily Torsemide 20 mg tablet Discontinued 10 mg PO DAILY August 07, 2021 1:00am February 07, 2025 9:50am Start: 08-07-2021 take 10 mg by mouth [...] 10 mg by mouth once daily. traMADol hydrochloride 50 mg oral tablet (20 sources) Opioid Agonist Start: 07-08-2022 take 1 tablet by mouth every twelve hours as needed for pain Tramadol 50 mg tablet Active 50 mg PO Q12H as needed for Pain July 08, 2022 12:19pm Start: 2022 End: 07-08-2022 take 1 tablet by mouth every eight hours as needed for pain Tramadol 50 mg tablet Discontinued 50 mg PO Q8H as needed for pain 04 29May 15, 2022 10:28am July 08, 2022 12:19pm Start: 2022 End: 07-08-2022 take 50 mg by mouth every six hours as needed Tramadol Active 50 MG PO EVERY 6 HOURS NEEDED July 08, 2022 12:19pm Comment on above: Take 50 mg by mouth every 6 hours as needed for pain. Completed/Discontinued Medications Medication Drug Class(es) Dates Sig (Normalized) Sig (Original) amLODIPine 5 mg oral tablet (20 sources) Dihydropyridine Calcium Channel Elana Start: 08-07-2021 End: 02-07-2025 take 1 tablet by mouth once daily Amlodipine 5 mg tablet Discontinued 5 mg PO DAILY August 07, 2021 1:00am February 07, 2025 9:51am Start: 08-07-2021 take 5 mg by mouth twice daily Amlodipine Active 5 MG PO TWICE A DAY August 07, 2021 1:00am rivaroxaban 20 mg oral tablet (20 sources) Factor Xa Inhibitor Start: 08-07-2021 End: 02-07-2025 take 1 tablet by mouth at bedtime Rivaroxaban (Xarelto) 20 mg tablet Discontinued 20 mg PO AT BEDTIME August 07, 2021 1:00am February 07, 2025 9:50am Comment on above: Take 20 mg by mouth once daily. 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; Translations: [Long-term (current) use of anticoagulants] Episodic Other aftercare (14 sources) Encounter for removal of sutures; Translations: [Encounter for removal of sutures] Episodic Other aftercare (2 sources) Long-term current use of drug therapy; Translations: [care home (current) use of antithrombotics/antipl atelets] 07-18-2024 Episodic Other bone disease and musculoskeletal deformities (2 sources) Other specified disorders of bone density and structure, unspecified site; Translations: [Oth disrd of bone density and structure, unspecified site] Onset: 9 Episodic Other connective tissue disease (2 sources) Thigh pain; Translations: [Pain in left thigh] 07-18-2024 Episodic Other fractures (20 sources) Closed fracture [...] of skin sensation] Onset: 4 Episodic Other nervous system disorders (4 sources) Dysarthria; Translations: [Dysarthria and anarthria] 02-07-2025 Episodic Other non-traumatic joint disorders (1 source) [...] other part of head, initial encounter] Episodic Transient cerebral ischemia (6 sources) Transient cerebral ischemia; Translations: [Transient cerebral ischemic attack, unspecified] Onset: 5 02-07-2025 Chronic Past or Other Problems Problem Classification Problem [...] Test Name Value Interpretation Reference Range Facility Brain without Contraston Brain without Contrast [facility] Imaging Services [address] [place] [address] Brain without Contrast MR#: [id number] Acct: [id number] Name: KAMILAH MCKEON Rep #: [id number] : 1945 F 79 From: Kurt Kwok DO PCP: Gerda Wilks MD Status: ADM BALBINA Study: Brain without Contrast Date of Exam: 02/09/25 Exam# [id number] Ordering Dr: Jaciel Olivier MD PROCEDURE: BRAIN WITHOUT CONTRAST 02/09/2025 REASON FOR EXAM: Transient ischemic attack TECHNIQUE: Noncontrast brain MRI. Multiplanar and multisequence images were obtained. FINDINGS: Brain: Mild hyperintense T2/FLAIR signal in the periventricular and deep white matter suggest chronic small vessel ischemic disease. Ventricles and sulci are prominent consistent with age-related involution. No intra- axial or extra-axial hemorrhage. No restricted diffusion. No mass, mass effect or midline shift. Major Intracranial Vessels: Normal flow voids are seen in the anterior circulation and in the vertebrobasilar system Sinuses: Small mucous retention cysts in the base of the right maxillary sinus. Mild ethmoid air cells wall thickening. Other sinuses are clear. Mastoids: No effusions detected. 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 OTHERWISE UNREMARKABLE BRAIN MRI WITHOUT CONTRAST. Reading Location: [facility] CC: Dr. Jaciel Olivier MD; Gerda Wilks MD [employer]: Signed Normal [facility] Discharge Instructionon 01-25 Discharge Instruction [facility] Medical Records Department [address] [place] [address] Instructions for Home/Discharge Instructions 02/09/25 1020 MR#: [id number] Acct: [id number] Name: KAMILAH MCKEON Rep #: [id number] : 1945 79 From: Jaciel Olivier MD PCP: Gerda Wilks MD Status:ADM BALBINA Discharge Instructions Diet Discharge Diet: Low fat / Low cholesterol DC O2, CPAP, BIPAP needs Home O2 Discharge instructions: No Dressing / Incision Discharge Activity: Return to Normal Activity Dressing / Incision Call your doctor if you observe: Fever of 101 or Higher, Shortness of breath, Dizziness, Fainting spells, Swelling in the ankles, Chest pain and Increased palpitations (irregular heartbeat) Follow Up Care Test Results: Test results from this visit will be discussed in further detail at your follow-up appointment, if applicable. Discharge Plan Admission Admit Date/Time: 02/07/25 11:50 Attending Provider: Jaciel Olivier Primary Care Provider: Gerda Wilks Consulting Providers: Anatoly Whalen; Abdiel Eugene; Cynthia Padilla; Mayte Philippe; Irene Bragg; Yash Stevenson; Tania Scott; Carlos Rob; Kam Reed; Vaibhav Chappell; Nevaeh Hartman; Rogelio Novak; Anahi Mario; Nirali Up; Hossein Foster; Kurt Rodriguez; Robi Mendez; Marco Antonio Lowe; Zainab Marti; Geovani Gregg Discharge Orders/Prescription s Prescriptions: Continued alendronate 70 mg tablet 70 mg PO MO allopurinol 100 mg tablet 200 mg PO DAILY omeprazole 20 mg capsule,delayed release(DR/EC) 20 mg PO DAILY pravastatin 20 mg tablet 20 mg PO QHS fluticasone propionate 50 mcg/actuation spray,suspension 1 spray INTRANASAL DAILY loratadine 10 mg tablet 10 mg PO DAILY bupropion HCl 200 mg tablet sustained-release 12 hr 200 mg PO BID potassium chloride [Klor-Con M10] 10 mEq tablet,ER particles/crystals 10 meq PO DAILY tramadol 50 mg tablet 50 mg PO Q12H PRN (Reason: Pain) donepezil 10 mg tablet 10 mg PO QHS cinacalcet 30 mg tablet 30 mg PO DAILY clonazepam 0.5 mg tablet 0.5 mg PO QHS docusate sodium [Col-Rite] 100 mg capsule 100 mg PO DAILY Eliquis 5 mg tablet 5 mg PO BID guaifenesin [Adult Tussin Chest Congestion] 100 mg/5 mL liquid 200 mg PO Q4H PRN (Reason: congestion) losartan 50 mg tablet 50 mg PO DAILY metoprolol tartrate 25 mg tablet 12.5 mg PO BID minoxidil 2.5 mg tablet 2.5 mg PO DAILY sertraline 50 mg tablet 75 mg PO DAILY torsemide 10 mg tablet 10 mg PO DAILY Patient Comments: PT TAKES IN AFTERNOON. ondansetron HCl 4 mg tablet 4 mg PO Q8H PRN (Reason: nausea and vomiting) guaifenesin [Mucinex] 600 mg tablet extended release 12hr 600 mg PO BID AsperFlex(m.salicyl at-menthol) 15-10 % cream 1 applic topical Q12H PRN (Reason: muscle pain) magnesium hydroxide [Dulcolax (magnesium hydroxide)] 400 mg/5 mL suspension 30 ml PO DAILY PRN (Reason: constipation) aluminum-magnesium hydroxide 200-200 mg/5 mL suspension 30 ml PO Q4H PRN (Reason: GI bleeding prophylaxis) acetaminophen [Tylenol] 325 mg Tablet 650 mg PO QHS PRN (Reason: Pain Score 1-10/Temp > 100.7 F) polyethylene glycol 3350 [Miralax] 17 gram/dose powder 17 g PO DAILY PRN (Reason: constipation) Referrals / Follow Up: Gerda Wilks MD [Primary Care Provider] - Within 1 Week Disposition Disposition (needs filled in before D/C Order can be placed): Home, Self Care 02/09/25 1023 Jaciel Olivier MD CC: Mayte Philippe; Anahi Mario; Kurt Rodriguez; Irene Bragg MD; Cynthia Padilla MD; Anatoly Whalen MD; Dr. Abdiel Eugene MD; Dr. Yash Stevenson MD; Dr. Tania Scott MD; Dr. Kam Reed MD; Dr. Carlos Rob MD; Dr. Vaibhav Chappell MD; Dr. Rogelio Novak DO; Dr. Hossein Foster MD; Dr. Nirali Up MD; Dr. Robi Mendez MD; Dr. Marco Antonio Lowe MD; Dr. Zainab Marti MD; Gerda Wilsk MD; Nevaeh Hartman DO; Geovani Gregg MD Signed Normal [facility] [place] Magnetic resonance imaging r eportOrdered By: Kurt Kwok on 02-09-2025 Study report [facility] Imaging Services [address] [place] [address] Brain without Contrast MR#: [id number] Acct: [id number] Name: KAMILAH MCKEON Rep #: [id number] : 1945 F 79 From: Pet er Vicente STILL PCP: Gerda Wilks MD Status: ADM BALBINA Study:Brain without Contrast Date of Exam: 02/09/25 Exam# [id number] Ordering Dr: Jaciel Olivier MD PROCEDURE: BRAIN WITHOUT CONTRAST 02/09/2025 REASON FOR EXAM: Transient ischemic attack TECHNIQUE: Noncontrast brain MRI. Multiplanar and multisequence images were obtained. FINDINGS: Brain: Mild hyperintense T2/FLAIR signal in the periventricular and deep white matter suggest chronic small vessel ischemic disease. Ventricles and sulci are prominent consistent with age-related involution. No intra-axial or extra-axial hemorrhage. No restricted diffusion. No mass, mass effect or midline shift. Major Intracranial Vessels: Normal flow voids are seen in the anterior circulation and in the vertebrobasilar system Sinuses: Small mucous retention cysts in the base of the right maxillary sinus. Mild ethmoid air cells wall thickening. Other sinuses are clear. Mastoids: No effusions detected. 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 OTHERWISE UNREMARKABLE BRAIN MRI WITHOUT CONTRAST. Reading [facility] CC: Dr. Jaciel Olivier MD; Gerda Wilks MD ~ [employer]: Signed [facility] Absolute lymphocyte countOrd ered By: Jaciel Olivier on 02-08-2025 Lymphocytes Auto (Unsp spec) [#/Vol] 1.55 10*3/uL 0.83-4.51 [facility] Absolute neutrophil countOrd ered By: Jaciel Olivier on 02-08-2025 Neutrophils (Bld) [#/Vol] 2.9 10*3/uL 2.0-7.7 [facility] Anion gap in Serum or Plasma Ordered By: Jaciel Olivier on 02-08-2025 Anion gap [Moles/Vol] 9 mmol/L 01-08 [facility] Automated lymphocyte count a s percentage of total leukocytesOrdered By: Jaciel Olivier on 02-08-2025 Lymphocytes/100 WBC Auto (Unsp spec) 29.1 % [facility] BUN/creatinine ratioOrdered By: Jaciel Olivier on 02-08-2025 Urea nitrogen/Creatinine [Mass ratio] 18.7 mg/mg 06-15 [facility] Basic Metabolic Profile (BMP )on 02-08-2025 BUN/CRE 18.7 RATIO Normal 06-15 [facility] Comment on above: Order Comment: 128 Performed By: #### L 100.0500, L500.2500, [id number] #### [facility] [address] [place], [address] Calcium [Mass/Vol] 9.5 mg/dL Normal 7.6-11.0 [facility] Comment on above: Order Comment: 128 Performed By: #### L 100.0500, L500.2500, [id number] #### [facility] [address] [place], [address] Chloride [Moles/Vol] 110 mmol/L High 98-108 [facility] Comment on above: Order Comment: 128 Performed By: #### L 100.0500, L500.2500, [id number] #### [facility] [address] [place], [address] CO2 [Moles/Vol] 23.6 mmol/L Normal 21.0-32.0 [facility] Comment on above: Order Comment: 128 Performed By: #### L 100.0500, L500.2500, [id number] #### [facility] [address] [place], [address] Creatinine [Mass/Vol] 0.76 mg/dL Normal 0.70-1.20 [facility] Comment on above: Order Comment: 128 Performed By: #### L 100.0500, L500.2500, [id number] #### [facility] [address] [place], [address] ECRCL 51.63 ml/min Normal 50-250 [facility] Comment on above: Order Comment: 128 Performed By: #### L 100.0500, L500.2500, [id number] #### [facility] [address] [place], [address] GAP 9 Normal 5-15 [facility] Comment on above: Order Comment: 128 Performed By: #### L 100.0500, L500.2500, [id number] #### [facility] [address] [place], [address] GFR/1.73 sq M.predicted among non-blacks MDRD (S/P/Bld) [Vol rate/Area] 81 mL/min/{1.73_m2} Normal >60 [facility] Comment on above: Order Comment: 128 Result Comment: mL/m in/1.73m2 CKD-EPI Creatinine Equation (2020) Performed By: #### L 100.0500, L500.2500, [id number] #### [facility] [address] [place], [address] Glucose [Mass/Vol] 103 mg/dL High 70-99 [facility] Comment on above: Order Comment: 128 Performed By: #### L 100.0500, L500.2500, [id number] #### [facility] [address] [place], [address] Potassium [Moles/Vol] 3.9 mmol/L Normal 3.3-5.1 [facility] Comment on above: Order Comment: 128 Performed By: #### L 100.0500, L500.2500, [id number] #### [facility] [address] [place], [address] Sodium [Moles/Vol] 143 mmol/L Normal 133-145 [facility] Comment on above: Order Comment: 128 Performed By: #### L 100.0500, L500.2500, [id number] #### [facility] [address] [place], [address] Urea nitrogen [Mass/Vol] 14 mg/dL Normal 4-19 [facility] Comment on above: Order Comment: 128 Performed By: #### L 100.0500, L500.2500, [id number] #### [facility] [address] [place], [address] Basophil percentageOrdered B y: Jaciel Olivier on 02-08-2025 Basophils/100 WBC (Bld) 1.3 % High 0-1 [facility] CBC W/Diff, Automatedon 01-25 Absolute Lymph 1.55 X10 3/uL Normal 0.83-4.51 [facility] Comment on above: Performed By: #### L 100.0500, L500.2500, [id number] #### [facility] [address] [place], [address] Absolute Neut 2.9 X10 3/uL Normal 2.0-7.7 [facility] Comment on above: Performed By: #### L 100.0500, L500.2500, [id number] #### [facility] [address] [place], [address] Basophils/100 WBC (Bld) 1.3 % High 0-1 [facility] Comment on above: Performed By: #### L 100.0500, L500.2500, [id number] #### [facility] [address] [place], [address] Eosinophils/100 WBC (Bld) 5.3 % High 0-5 [facility] Comment on above: Performed By: #### L 100.0500, L500.2500, [id number] #### [facility] [address] [place], [address] Erythrocyte distribution width (RBC) [Ratio] 15.9 % High 11.6-14.6 [facility] Comment on above: Performed By: #### L 100.0500, L500.2500, [id number] #### [facility] [address] [place], [address] Hematocrit (Bld) [Volume fraction] 35.9 % Low 37-47 [facility] Comment on above: Performed By: #### L 100.0500, L500.2500, [id number] #### [facility] [address] [place], [address] Hemoglobin (Bld) [Mass/Vol] 11.3 g/dL Low 12.0-15.0 [facility] Comment on above: Performed By: #### L 100.0500, L500.2500, [id number] #### [facility] [address] [place], [address] IG% 0.400 Normal 0.0-0.9 [facility] Comment on above: Result Comment: IG% - Immature Granulocytes (promyelocytes, myelocytes and metamyelocytes) > 1% indicates that a LEFT SHIFT is Present. Performed By: #### L 100.0500, L500.2500, [id number] #### [facility] [address] [place], [address] Lymphocytes/100 WBC (Bld) 29.1 % Normal 19-41 [facility] Comment on above: Performed By: #### L 100.0500, L500.2500, [id number] #### [facility] [address] [place], [address] MCH (RBC) [Entitic mass] 29.2 pg Normal 27.0-32.0 [facility] Comment on above: Performed By: #### L 100.0500, L500.2500, [id number] #### [facility] [address] [place], [address] MCHC (RBC) [Mass/Vol] 31.5 g/dL Low 32-36 [facility] Comment on above: Performed By: #### L 100.0500, L500.2500, [id number] #### [facility] [address] [place], [address] MCV (RBC) [Entitic vol] 92.8 fL Normal 81-99 [facility] Comment on above: Performed By: #### L 100.0500, L500.2500, [id number] #### [facility] [address] [place], [address] Monocytes/100 WBC (Bld) 9.4 % Normal 0-10 [facility] Comment on above: Performed By: #### L 100.0500, L500.2500, [id number] #### [facility] [address] [place], [address] Neutrophils/100 WBC (Bld) 54.5 % Normal 47-70 [facility] Comment on above: Performed By: #### L 100.0500, L500.2500, [id number] #### [facility] [address] [place], [address] Nucleated RBC (Bld) [#/Vol] 0 10*3/uL Normal 0-5 [facility] Comment on above: Performed By: #### L 100.0500, L500.2500, [id number] #### [facility] [address] [place], [address] Platelet mean volume (Bld) [Entitic vol] 11.1 fL Normal 6.2-12.0 [facility] Comment on above: Performed By: #### L 100.0500, L500.2500, [id number] #### [facility] [address] [place], [address] Platelets (Bld) [#/Vol] 211 10*3/uL Normal 150-450 [facility] Comment on above: Performed By: #### L 100.0500, L500.2500, [id number] #### [facility] [address] [place], [address] RBC (Bld) [#/Vol] 3.87 10*6/uL Low 4.2-5.4 [facility] Comment on above: Performed By: #### L 100.0500, L500.2500, [id number] #### [facility] [address] [place], [address] RDW SD 54.4 fl High 35.1-43.9 [facility] Comment on above: Performed By: #### L 100.0500, L500.2500, [id number] #### [facility] [address] [place], [address] WBC (Bld) [#/Vol] 5.3 10*3/uL Normal 4.4-11.0 [facility] Comment on above: Performed By: #### L 100.0500, L500.2500, [id number] #### [facility] [address] [place], [address] Calculated very low density lipoprotein (VLDL) cholesterol measurementOrdered By: Jaciel Olivier on 02-08-2025 Calculated very low density lipoprotein (VLDL) cholesterol measurement 29 mg/dL 5-40 [facility] Carbon dioxide, total [Moles /volume] in Central venous bloodOrdered By: Jaciel Olivier on 02-08-2025 CO2 [Moles/Vol] 23.6 mmol/L 21.0-32.0 [facility] Chloride assayOrdered By: Patti Olivier on 02-08-2025 Chloride [Moles/Vol] 110 mmol/L High 98-108 [facility] Eosinophil percentageOrdered By: Jaciel Olivier on 02-08-2025 Eosinophils/100 WBC (Bld) 5.3 % High 0-5 [facility] Erythrocyte distribution wid th ratioOrdered By: Jaciel Olivier on 02-08-2025 Erythrocyte distribution width (RBC) [Ratio] 15.9 % High 11.6-14.6 [facility] Erythrocyte distribution wid th standard deviationOrdered By: Jaciel Olivier on 02-08-2025 Erythrocyte distribution width (RBC) [Ratio] 54.4 fl High 35.1-43.9 [facility] Glomerular filtration rate ( GFR) estimation/1.73 sq m using serum, plasma, or whole bOrdered By: Jaciel Olivier on 02-08-2025 GFR/1.73 sq M.predicted among non-blacks MDRD (S/P/Bld) [Vol rate/Area] 81 mL/min/{1.73_m2} >60 [facility] Comment on above: mL/min/1.73m2 CKD-EP I Creatinine Equation (2020) Hematocrit Auto (Bld) [Volum e fraction]Ordered By: Jaciel Olivier on 02-08-2025 Hematocrit (Bld) [Volume fraction] 35.9 % Low 37-47 [facility] Hemoglobin measurementOrdere d By: Jaciel Olivier on 02-08-2025 Hemoglobin (Bld) [Mass/Vol] 11.3 g/dL Low 12.0-15.0 [facility] Immature granulocytes/100 WB C Auto (Bld)Ordered By: Jaciel Olivier on 02-08-2025 Immature granulocytes/100 WBC (Bld) 0.400 % 0.0-0.9 [facility] Comment on above: IG% - Immature Granu locytes (promyelocytes, myelocytes and metamyelocytes) > 1% indicates that a LEFT SHIFT is Present. LDL calc ser/plasOrdered By: Jaciel Olivier on 02-08-2025 Cholesterol in LDL [Mass/Vol] 77 mg/dL [facility] Comment on above: Jiqsoslhti=669-878 m g/dL & Higher Ztgw=176 mg/dL or greater Lipid Profileon 02-08-2025 CHOL:HDL 3.36 Normal [facility] Comment on above: Order Comment: 128 Performed By: #### L 100.0500, L500.2500, L503.7505 #### [facility] [address] [place], [address] Cholesterol [Mass/Vol] 152 mg/dL Normal <=200 [facility] Comment on above: Order Comment: 128 Result Comment: Chol esterol level, Desirable <200 mg/dL Borderline high cholesterol 200-239 mg/dL High cholesterol >=240 mg/dL Recommendations of the NCEP Adult Treatment Panel for the following risk-cutoff thresholds for the [place] population. Performed By: #### L 100.0500, L500.2500, L503.7505 #### [facility] [address] [place], [address] Cholesterol in HDL [Mass/Vol] 45 mg/dL Normal [facility] Comment on above: Order Comment: 128 Result Comment: Noemy onal Cholesterol Education Program (NCEP) guidelines: <40 mg/dL: Low HDL-cholesterol (major risk factor for CHD) >= 60 mg/dL: High HDL-cholesterol (negative risk factor for CHD) HDL-cholesterol is affected by a number of factors, e.g. smoking, exercise, hormones, sex and age. Performed By: #### L 100.0500, L500.2500, L503.7505 #### [facility] [address] [place], [address] Cholesterol in LDL [Mass/Vol] 77 mg/dL Normal [facility] Comment on above: Order Comment: 128 Result Comment: Bord kurkak=017-011 mg/dL Higher Hnoz=362 mg/dL or greater Performed By: #### L 100.0500, L500.2500, [id number] #### [facility] [address] [place], [address] Cholesterol in VLDL [Mass/Vol] 29 mg/dL Normal 5-40 [facility] Comment on above: Order Comment: 128 Performed By: #### L 100.0500, L500.2500, [id number] #### [facility] [address] [place], [address] Triglyceride [Mass/Vol] 147 mg/dL Normal [facility] Comment on above: Order Comment: 128 Result Comment: The drugs N-Acetylcysteine and Metamizole may falsely depress this assay. Normal range: <150 mg/dL Borderline High: 150-199 mg/dL High: 200-499 mg/dL Very High: >500 mg/dL Performed By: #### L 100.0500, L500.2500, [id number] #### [facility] [address] [place], [address] MCV (mean corpuscular volume ) determinationOrdered By: Jaciel Olivier on 02-08-2025 MCV (RBC) [Entitic vol] 92.8 fL 81-99 [facility] Mean corpuscular hemoglobin (MCH) determinationOrdered By: Jaciel Olivier on 02-08-2025 MCH (RBC) [Entitic mass] 29.2 pg 27.0-32.0 [facility] Mean corpuscular hemoglobin concentration (MCHC) determinationOrdered By: Jaciel Olivier on 02-08-2025 MCHC (RBC) [Mass/Vol] 31.5 g/dL Low 32-36 [facility] Mean platelet volume determi nationOrdered By: Jaciel Olivier on 02-08-2025 Platelet mean volume (Bld) [Entitic vol] 11.1 fL 6.2-12.0 [facility] Monocyte percentageOrdered B y: Jaciel Olivier on 02-08-2025 Monocytes/100 WBC (Bld) 9.4 % 0-10 [facility] Neutrophil percentageOrdered By: Jaciel Olivier on 02-08-2025 Neutrophils/100 WBC (Bld) 54.5 % 47-70 [facility] Nucleated red blood cell per centageOrdered By: Jaciel Olivier on 02-08-2025 Nucleated RBC/100 WBC (Bld) [Ratio] 0 % 0-5 [facility] Platelet countOrdered By: Patti Olivier on 02-08-2025 Platelets (Bld) [#/Vol] 211 10*3/uL 150-450 [facility] Potassium measurement (mass/ volume)Ordered By: Jaciel Olivier on 02-08-2025 Potassium (Unsp spec) [Mass/Vol] 3.9 mmol/L 3.3-5.1 [facility] RBC Auto (Bld) [#/Vol]Ordere d By: Jaciel Olivier on 02-08-2025 RBC (Bld) [#/Vol] 3.87 10*6/uL Low 4.2-5.4 [facility] Screening total cholesterol/ high density lipoprotein (HDL) cholesterol ratioOrdered By: Jaciel Olivier on 02-08-2025 Cholesterol.total/Choles terol in HDL [Mass ratio] 3.36 {ratio} [facility] Serum creatinine measurement (mass/volume)Ordered By: Jaciel Olivier on 02-08-2025 Creatinine [Mass/Vol] 0.76 mg/dL 0.70-1.20 [facility] Serum glucose measurement (m ass/volume)Ordered By: Jaciel Olivier on 02-08-2025 Glucose [Mass/Vol] 103 mg/dL High 70-99 [facility] Serum or plasma calcium chay urement (mass/volume)Ordered By: Jaciel Olivier on 02-08-2025 Calcium [Mass/Vol] 9.5 mg/dL 7.6-11.0 [facility] Serum or plasma cholesterol in HDL measurement (mass/volume)Ordered By: Jaciel Olivier on 02-08-2025 Cholesterol in HDL [Mass/Vol] 45 mg/dL >40 [facility] Comment on above: National Cholesterol Education Program (NCEP) guidelines:<40 mg/dL: Low HDL-cholesterol (major risk factor for CHD)>= 60 mg/dL: High HDL-cholesterol (negative risk factor for CHD)HDL-cholesterol is affected by a number of factors, e.g. smoking, exercise, hormones, sex and age. Serum or plasma cholesterol measurement (mass/volume)Ordered By: Jaciel Olivier on 02-08-2025 Cholesterol [Mass/Vol] 152 mg/dL <201 [facility] Comment on above: Cholesterol level, D esirable <200 mg/dLBorderline high cholesterol 200-239 mg/dLHigh cholesterol >=240 mg/dLRecommendations of the NCEP Adult Treatment Panel for the following risk-cutoff thresholds for the [place] population. Serum or plasma urea nitroge n measurement (mass/volume)Ordered By: Jaciel Olivier on 02-08-2025 Urea nitrogen [Mass/Vol] 14 mg/dL 4-19 [facility] Sodium levelOrdered By: Rowdy Olivier on 02-08-2025 Sodium [Moles/Vol] 143 mmol/L 133-145 [facility] Triglycerides measurementOrd ered By: Jaciel Olivier on 02-08-2025 Triglyceride [Mass/Vol] 147 mg/dL <199 [facility] Comment on above: The drugs N-Acetylcy steine and Metamizole may falsely depress this assay. Normal range: <150 mg/dLBorderline High: 150-199 mg/dLHigh: 200-499 mg/dLVery High: >500 mg/dL White blood cell (WBC) count Ordered By: Jaciel Olivier on 02-08-2025 WBC (Bld) [#/Vol] 5.3 10*3/uL 4.4-11.0 [facility] Absolute lymphocyte countOrd ered By: Compa Sibley on 02-07-2025 Lymphocytes Auto (Unsp spec) [#/Vol] 0.89 10*3/uL 0.83-4.51 [facility] Absolute neutrophil countOrd ered By: Compa Sibley on 02-07-2025 Neutrophils (Bld) [#/Vol] 5.3 10*3/uL 2.0-7.7 [facility] Activated partial thrombopla stin time (aPTT) in platelet poor plasma by coagulation aOrdered By: Compa Sibley on 02-07-2025 aPTT Coag (PPP) [Time] 33.3 s 24.1-36.2 [facility] Anion gap in Serum or Plasma Ordered By: Compa Sibley on 02-07-2025 Anion gap [Moles/Vol] 9 mmol/L 5- [facility] Automated lymphocyte count a s percentage of total leukocytesOrdered By: Compa Sibley on 02-07-2025 Lymphocytes/100 WBC Auto (Unsp spec) 12.9 % Low -41 [facility] BUN/creatinine ratioOrdered By: Compa Sibley on 02-07-2025 Urea nitrogen/Creatinine [Mass ratio] 23.7 mg/mg High - [facility] Basic Metabolic Profile (BMP )on 02-07-2025 BUN/CRE 23.7 RATIO High 10- [facility] Comment on above: Performed By: #### L 100.0500, L500.2500, L503.7505 #### [facility] [address] [place], [address] Calcium [Mass/Vol] 9.3 mg/dL Normal 7.6-11.0 [facility] Comment on above: Performed By: #### L 100.0500, L500.2500, [id number] #### [facility] [address] [place], [address] Chloride [Moles/Vol] 107 mmol/L Normal 98-108 [facility] Comment on above: Performed By: #### L 100.0500, L500.2500, [id number] #### [facility] [address] [place], [address] CO2 [Moles/Vol] 21.1 mmol/L Normal 21.0-32.0 [facility] Comment on above: Performed By: #### L 100.0500, L500.2500, [id number] #### [facility] [address] [place], [address] Creatinine [Mass/Vol] 0.77 mg/dL Normal 0.70-1.20 [facility] Comment on above: Performed By: #### L 100.0500, L500.2500, [id number] #### [facility] [address] [place], [address] ECRCL 51.78 ml/min Normal 50-250 [facility] Comment on above: Performed By: #### L 100.0500, L500.2500, [id number] #### [facility] [address] [place], [address] GAP 9 Normal 5-15 [facility] Comment on above: Performed By: #### L 100.0500, L500.2500, [id number] #### [facility] [address] [place], [address] GFR/1.73 sq M.predicted among non-blacks MDRD (S/P/Bld) [Vol rate/Area] 79 mL/min/{1.73_m2} Normal >60 [facility] Comment on above: Result Comment: mL/m in/1.73m2 CKD-EPI Creatinine Equation (2020) Performed By: #### L 100.0500, L500.2500, [id number] #### [facility] [address] [place], [address] Glucose [Mass/Vol] 117 mg/dL High 70-99 [facility] Comment on above: Performed By: #### L 100.0500, L500.2500, [id number] #### [facility] [address] [place], [address] Potassium [Moles/Vol] 4.0 mmol/L Normal 3.3-5.1 [facility] Comment on above: Result Comment: Hemo lysis present, Results??could be affected. ?? Performed By: #### L 100.0500, L500.2500, [id number] #### [facility] [address] [place], [address] Sodium [Moles/Vol] 137 mmol/L Normal 133-145 [facility] Comment on above: Performed By: #### L 100.0500, L500.2500, [id number] #### [facility] [address] [place], [address] Urea nitrogen [Mass/Vol] 18 mg/dL Normal 4-19 [facility] Comment on above: Performed By: #### L 100.0500, L500.2500, [id number] #### [facility] [address] [place], [address] Basophil percentageOrdered B y: Compa Sibley on 02-07-2025 Basophils/100 WBC (Bld) 0.7 % 0-1 [facility] Bilirubin Test strip Ql (U)O rdered By: Compa Sibley on 02-07-2025 Bilirubin Ql (U) Negative Negative [facility] CBC W/Diff, Automatedon 01-25 Absolute Lymph 0.89 X10 3/uL Normal 0.83-4.51 [facility] Comment on above: Performed By: #### L 100.0500, L500.2500, [id number] #### [facility] [address] [place], [address] Absolute Neut 5.3 X10 3/uL Normal 2.0-7.7 [facility] Comment on above: Performed By: #### L 100.0500, L500.2500, [id number] #### [facility] [address] [place], [address] Basophils/100 WBC (Bld) 0.7 % Normal 0-1 [facility] Comment on above: Performed By: #### L 100.0500, L500.2500, [id number] #### [facility] [address] [place], [address] Eosinophils/100 WBC (Bld) 1.6 % Normal 0-5 [facility] Comment on above: Performed By: #### L 100.0500, L500.2500, [id number] #### [facility] [address] [place], [address] Erythrocyte distribution width (RBC) [Ratio] 15.9 % High 11.6-14.6 [facility] [facility] Comment on above: Performed By: #### L 100.0500, L500.2500, L503.7505 #### [facility] [address] [place], [address] Hematocrit (Bld) [Volume fraction] 35.0 % Low 37-47 [facility] Comment on above: Performed By: #### L 100.0500, L500.2500, L503.7505 #### [facility] [address] [place], [address] Hemoglobin (Bld) [Mass/Vol] 11.4 g/dL Low 12.0-15.0 [facility] Comment on above: Performed By: #### L 100.0500, L500.2500, L503.7505 #### [facility] [address] [place], [address] IG% 0.400 Normal 0.0-0.9 [facility] Comment on above: Result Comment: IG% - Immature Granulocytes (promyelocytes, myelocytes and metamyelocytes) > 1% indicates that a LEFT SHIFT is Present. Performed By: #### L 100.0500, L500.2500, L503.7505 #### [facility] [address] [place], [address] Lymphocytes/100 WBC (Bld) 12.9 % Low 19-41 [facility] Comment on above: Performed By: #### L 100.0500, L500.2500, L503.7505 #### [facility] [address] [place], [address] MCH (RBC) [Entitic mass] 29.8 pg Normal 27.0-32.0 [facility] Comment on above: Performed By: #### L 100.0500, L500.2500, L503.7505 #### [facility] [address] [place], [address] MCHC (RBC) [Mass/Vol] 32.6 g/dL Normal 32-36 [facility] Comment on above: Performed By: #### L 100.0500, L500.2500, L503.7505 #### [facility] [address] [place], [address] MCV (RBC) [Entitic vol] 91.4 fL Normal 81-99 [facility] Comment on above: Performed By: #### L 100.0500, L500.2500, L503.7505 #### [facility] [address] [place], [address] Monocytes/100 WBC (Bld) 7.2 % Normal 0-10 [facility] Comment on above: Performed By: #### L 100.0500, L500.2500, L503.7505 #### [facility] [address] [place], [address] Neutrophils/100 WBC (Bld) 77.2 % High 47-70 [facility] Comment on above: Performed By: #### L 100.0500, L500.2500, L503.7505 #### [facility] [address] [place], [address] Nucleated RBC (Bld) [#/Vol] 0 10*3/uL Normal 0-5 [facility] Comment on above: Performed By: #### L 100.0500, L500.2500, L503.7505 #### [facility] [address] [place], [address] Platelet mean volume (Bld) [Entitic vol] 10.6 fL Normal 6.2-12.0 [facility] Comment on above: Performed By: #### L 100.0500, L500.2500, L503.7505 #### [facility] [address] [place], [address] Platelets (Bld) [#/Vol] 195 10*3/uL Normal 150-450 [facility] Comment on above: Performed By: #### L 100.0500, L500.2500, L503.7505 #### [facility] [address] [place], [address] RBC (Bld) [#/Vol] 3.83 10*6/uL Low 4.2-5.4 [facility] Comment on above: Performed By: #### L 100.0500, L500.2500, L503.7505 #### [facility] [address] [place], [address] RDW SD 53.1 fl High 35.1-43.9 [facility] Comment on above: Performed By: #### L 100.0500, L500.2500, L503.7505 #### [facility] [address] [place], [address] WBC (Bld) [#/Vol] 6.9 10*3/uL Normal 4.4-11.0 [facility] Comment on above: Performed By: #### L 100.0500, L500.2500, L503.7505 #### [facility] [address] [place], [address] Carbon dioxide, total [Moles /volume] in Central venous bloodOrdered By: Compa Sibley on 02-07-2025 CO2 [Moles/Vol] 21.1 mmol/L 21.0-32.0 [facility] Chest 1 Viewon 02-07-2025 Chest 1 View [facility] Imaging Services [address] [place] [address] Chest 1 View MR#: [id number] Acct: [id number] Name: KAMILAH MCKEON Rep #: [id number] : 1945 F 79 From: Kurt Kwok DO PCP: Gerda Wilks MD Status: REG ER Study: Chest 1 View Date of Exam: 02/07/25 Exam# [id number] Ordering Dr: Compa Sibley MD PROCEDURE: CHEST 1 VIEW 02/07/2025 REASON FOR EXAM: NEURO DEFICIT, ACUTE, STROKE SUSPECTED TECHNIQUE: Frontal view of the chest. COMPARISON: None FINDINGS: Hardware: None Heart: Normal size Lungs: Prominent interstitium due to AP technique Bones: No aggressive process. Other: Lung volumes are low limiting sensitivity of the exam RAD/Chest 1 View IMPRESSION: No acute process. Reading [facility] CC: Dr. Compa Sibley MD; Gerda Wilks MD [employer]: Signed Normal [facility] Chloride assayOrdered By: Thiago Sibley on 02-07-2025 Chloride [Moles/Vol] 107 mmol/L 98-108 [facility] Echo Completeon 02-07-2025 Echo Complete [facility] [address] [place] [address] Echo Complete 02/09/25 0959 MR#: [id number] Acct: [id number] Name: KAMILAH MCKEON Rep #: [id number] : 1945 79 From: Oni Rivera MD Attending Dr: Dr. Jaciel Olivier MD Status : DIS BALBINA Ordering Dr: Jaciel Olivier MD Date: 02/07/25 Location: U Sex: F C Admitted: 02/07/25 Reason For Study Reason For Study: TIA/CVA Procedure This was a 2D Doppler, Color Flow transthoracic echocardiogram. Exam performed portable in patient room. Left Ventricle Normal LV size. The left ventricular ejection fraction is 70 %. No regional wall motion abnormalities noted. Right Ventricle Normal RV size. Normal systolic function. Atria Normal left atrium. Normal right atrium. Mitral Valve Normal mitral valve. Tricuspid Valve Normal tricuspid valve. Mild (1+) tricuspid valve insufficiency. Pulmonary artery systolic pressure is 38 mmHg. Aortic Valve Trisinus/trileaflet aortic valve. Mild focal aortic valve calcification. Peak aortic valve gradient 17 mmHg. Mean aortic valve gradient 8 mmHg. Mild (1+) aortic valve insufficiency. Pericardium/Pleural No pericardial effusion. MMode/2D Measurements Calculations LAV(MOD-bp): 51.0 ml LVAd ap4: 20.0 cm2 SV(MOD-sp4): 32.9 ml LAV(MOD-bp) Indexed: 31.6 ml/m2 LVLd ap4: 7.2 cm SI(MOD-sp4): 20.4 ml/m2 LAV(MOD-sp2): 39.6 ml EDV(MOD-sp4): 47.2 ml LAV(MOD-sp4): 64.3 ml EDV(sp4-el): 47.2 ml LVAs ap4: 9.0 cm2 LVLs ap4: 4.9 cm ESV(MOD-sp4): 14.2 ml ESV(sp4-el): 13.8 ml EF(MOD-sp4): 69.8 % EF(sp4-el): 70.8 % __ SV(sp4-el): 33.4 ml LA A4 area: 20.3 cm2 RA A4 area: 8.0 cm2 Time Measurements MV dec time: 0.28 sec Doppler Measurements Calculations MV E max maximino: 116.6 cm/sec Lat Peak E' Maximino: 10.9 cm/sec Med Peak E' Maximino: 8.3 cm/sec MV A max maximino: 117.2 cm/sec E/E' lat: 10.7 E/E' med: 14.1 MV E/A: 1.00 __ MV V2 max: 118.1 cm/sec MV dec slope: 418.0 cm/sec2 Ao V2 max: 209.5 cm/sec MV max P.6 mmHg Ao max P.6 mmHg MV V2 mean: 71.8 cm/sec Ao V2 mean: 137.0 cm/sec MV mean P.5 mmHg Ao mean P.7 mmHg MV V2 VTI: 40.5 cm Ao V2 VTI: 46.5 cm AV (velocity ratio): 0.68 __ AI max maximino: 400.9 cm/sec LV V1 max: 134.1 cm/sec PA V2 max: 115.7 cm/sec AI max P.3 mmHg LV V1 max P.2 mmHg PA V2 mean: 80.0 cm/sec AI dec slope: 235.6 cm/sec2 LV V1 mean P.4 mmHg AI P1/2t: 498.4 msec LV V1 mean: 85.7 cm/sec LV V1 VTI: 31.6 cm __ TR max maximino: 288.7 cm/sec TR max P.3 mmHg ECHO/Echo Complete Interpretation Summary Normal LV size. The left ventricular ejection fraction is 70 %. Pulmonary artery systolic pressure is 38 mmHg. Mean aortic valve gradient 8 mmHg. Mild (1+) aortic valve insufficiency. __ Ordering Physician: Jaciel Olivier Referring Physician: CAROLIN CARRASCO Performed By: Dee Dee Austin RCS 02/09/251918 Date Oni Rivera MD CC: Dr. Jaciel Olivier MD; Gerda Wilks MD Date Dictated: 02/09/25958 Date Transcribed: 02/09/251918 [employer]: Signed Normal [facility] Emergency Department Summary on 02-07-2025 Emergency Department Summary [facility] Medical Records Department [address] [place] [address] Emergency Department Summary 02/07/25 MR#: [id number] Acct: [id number] Name: KAMILAH MCKEON Rep #: [id number] : 1945 79 From: Compa Sibley MD PCP: Gerda Wilks MD Status:REG ER Location: ED HPI History of Present Illness Chief Complaint: Stroke Alert Narrative Narrative: 79-year-old female [facility] from [facility] with prehospital stroke symptoms. She was last seen well at 11 PM yesterday evening, approximately 10 hours ago. She was 3 hours late for breakfast this morning. According to EMS, assisted noticed slurred speech and possible right facial droop. She also had reported expressive aphasia as well. She had complained to [facility] facility that she had a headache, but denied it to EMS. 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 [facility] Medical History Injury of back Rectal bleeding [...] 70 mg tablet 70 mg PO MO OSTEOPOROSIS 08/07/21 Unknown History allopurinol 100 mg tablet 200 mg PO DAILY GOUT 08/07/21 Unkn own History bupropion HCl 200 mg tablet,12 hr 200 mg PO BID 08/07/21 Unknown Hi story sustained-release fluticasone propionate 50 1 spray intranasal DAILY 08/07/21 Unknown History mcg/actuation nasal spray,suspension loratadine 10 mg tablet 10 mg PO DAILY 08/07/21 Unknown Hi story omeprazole 20 mg capsule,delayed 20 mg PO DAILY 08/07/21 Unknown Hi story release potassium chloride 10 mEq 10 meq PO DAILY 08/07/21 Unknown H istory tablet,extended release(part/cryst) (Klor-Con M) pravastatin 20 mg tablet 20 mg PO QHS 08/07/21 Unknown Hist ory tramadol 50 mg tablet 50 mg PO Q12H PRN Pain 07/08/22 Un known History acetaminophen 325 mg tablet 650 mg PO QHS PRN Pain Score 02/07 Unknown History (Tylenol) 1-10/Temp > 100.7 F aluminum-magnesium hydroxide 200 30 ml PO Q4H PRN GI bleeding 02/07 Unknown History mg-200 mg/5 mL oral suspension prophylaxis apixaban 5 mg tablet (Eliquis) 5 mg PO BID 02/07/25 Unknown Histo ry cinacalcet 30 mg tablet 30 mg PO DAILY 02/07/25 Unknown Hi story clonazepam 0.5 mg tablet 0.5 mg PO QHS 02/07/25 Unknown His tory docusate sodium 100 mg capsule 100 mg PO DAILY CONSTIPATION 02/07 Unknown History (Col-Rite) donepezil 10 mg tablet 10 mg PO QHS 02/07/25 Unknown Hist ory guaifenesin 100 mg/5 mL oral 200 mg PO Q4H PRN congestion 02/07 Unknown History liquid (Adult Tussin Chest Congestion) guaifenesin 600 mg tablet, 600 mg PO BID 02/07/25 Unknown His tory extended release 12 hr (Mucinex) losartan 50 mg tablet 50 mg PO DAILY 02/07/25 Unknown Hi story magnesium hydroxide 400 mg/5 mL 30 ml PO DAILY PRN constipation Unknown History oral suspension (Dulcolax (magnesium hydroxide)) methyl salicylate 15 %-menthol 10 1 applic topical Q12H PRN muscle 02/07/25 Unknown History % topical cream (AsperFlex (methyl pain salicylate-menthol) ) metoprolol tartrate 25 mg tablet 12.5 mg PO BID 02/07/25 Unknown Hi story minoxidil 2.5 mg tablet 2.5 mg PO DAILY 02/07/25 Unknown H istory ondansetron HCl 4 mg tablet 4 mg PO Q8H PRN nausea and vomitin g 02/07/25 Unknown History polyethylene glycol 3350 17 17 g PO DAILY PRN constipation Unknown History gram/dose oral powder (Miralax) sertraline 50 mg tablet 75 mg PO DAILY 02/07/25 Unknown Hi story torsemide 10 mg tablet 10 mg PO DAILY 02/07/25 Unknown Hi story Allergy/AdvReac Type Severity Reaction Status Date / Time Latex, Natural Rubber AdvReac Rash Verified 02/07/25 09:31 Social History housing: assisted living facility Smoking Status: Former smoker ROS ROS ED ROS Narrative Review of systems positive for reported expressive aphasia, dysarthria, nausea and vomiting, and headache. No fever or chills. No exacerbating or alleviating factors. EXAM Physical Exam Narrative Exam Narrative: Afebrile. Vital signs noted. Nontoxic-appearing. Dry mucous membranes. Cardiovascular examination regular rate and rhythm. Lungs clear to auscultation bilaterally. Abdomen is (more content not included)... Normal [facility] Eosinophil percentageOrdered By: Compa Sibley on 02-07-2025 Eosinophils/100 WBC (Bld) 1.6 % 0-5 [facility] Erythrocyte distribution wid th ratioOrdered By: Compa Sibley on 02-07-2025 Erythrocyte distribution width (RBC) [Ratio] 15.9 % High 11.6-14.6 [facility] Erythrocyte distribution wid th standard deviationOrdered By: Compa Sibley on 02-07-2025 Erythrocyte distribution width (RBC) [Ratio] 53.1 fl High 35.1-43.9 [facility] Glomerular filtration rate ( GFR) estimation/1.73 sq m using serum, plasma, or whole bOrdered By: Compa Sibley on 02-07-2025 GFR/1.73 sq M.predicted among non-blacks MDRD (S/P/Bld) [Vol rate/Area] 79 mL/min/{1.73_m2} >60 [facility] Comment on above: mL/min/1.73m2 CKD-EP I Creatinine Equation (2020) H AND P Exam - [facility] 02-07-2025 H&P Exam - Hospitalist [facility] Medical Records Department [address] [place] [address] H P Exam - Hospitalist 02/07/25 1401 MR#: [id number] Acct: [id number] Name: KAMILAH MCKEON Rep #: [id number] : 1945 79 From: Jaciel Olivier MD PCP: Gerda Wilks MD Status:ADM BALBINA Location: [place] [address] HPI - General General Date of Admission: 02/07/25 HPI Narrative KAMILAH MCKEON, is a 79 F who presents from assisted living with concerns of a stroke. Currently NIH is 0 but they noted slurred speech and right facial droop. She does have a dry mouth so I do not think that she mostly has dysarthria at this time. She is already on Eliquis for history of DVT and is on blood pressure medications. She says that she feels fine and is back to her baseline. Workup in the ER was unremarkable, CTA of the head and neck was negative for an LVO and CT of the brain was also negative for hemorrhage. [facility] Medical History Injury of back Rectal bleeding [...] 70 mg tablet 70 mg PO MO OSTEOPOROSIS 08/07/21 Unknown History allopurinol 100 mg tablet 200 mg PO DAILY GOUT 08/07/21 Unkn own History bupropion HCl 200 mg tablet,12 hr 200 mg PO BID mood 08/07/21 Unkno wn History sustained-release fluticasone propionate 50 1 spray intranasal DAILY allergies 08/07/21 Unknown History mcg/actuation nasal spray,suspension loratadine 10 mg tablet 10 mg PO DAILY allergies 08/07/21 Unknown History omeprazole 20 mg capsule,delayed 20 mg PO DAILY reflux 08/07/21 Unk nown History release potassium chloride 10 mEq 10 meq PO DAILY supplement 1 Unknown History tablet,extended release(part/cryst) (Klor-Con M) pravastatin 20 mg tablet 20 mg PO QHS cholesterol 08/07/21 Unknown History tramadol 50 mg tablet 50 mg PO Q12H PRN Pain 07/08/22 Un known History acetaminophen 325 mg tablet 650 mg PO QHS PRN Pain Score 02/07 Unknown History (Tylenol) 1-10/Temp > 100.7 F aluminum-magnesium hydroxide 200 30 ml PO Q4H PRN GI bleeding 02/07 Unknown History mg-200 mg/5 mL oral suspension prophylaxis apixaban 5 mg tablet (Eliquis) 5 mg PO BID dvt 02/07/25 Unknown H istory cinacalcet 30 mg tablet 30 mg PO DAILY parathyroid 5 Unknown History clonazepam 0.5 mg tablet 0.5 mg PO QHS 02/07/25 Unknown His tory docusate sodium 100 mg capsule 100 mg PO DAILY CONSTIPATION 02/07 Unknown History (Col-Rite) donepezil 10 mg tablet 10 mg PO QHS memory 02/07/25 Unkno wn History guaifenesin 100 mg/5 mL oral 200 mg PO Q4H PRN congestion 02/07 Unknown History liquid (Adult Tussin Chest Congestion) guaifenesin 600 mg tablet, 600 mg PO BID 02/07/25 Unknown His tory extended release 12 hr (Mucinex) losartan 50 mg tablet 50 mg PO DAILY bp 02/07/25 Unknown History magnesium hydroxide 400 mg/5 mL 30 ml PO DAILY PRN constipation Unknown History oral suspension (Dulcolax (magnesium hydroxide)) methyl salicylate 15 %-menthol 10 1 applic topical Q12H PRN muscle 02/07/25 Unknown History % topical cream (AsperFlex (methyl pain salicylate-menthol) ) metoprolol tartrate 25 mg tablet 12.5 mg PO BID heart 02/07/25 Unkn own History minoxidil 2.5 mg tablet 2.5 mg PO DAILY bp 02/07/25 Unknow n History ondansetron HCl 4 mg tablet 4 mg PO Q8H PRN nausea and vomitin g 02/07/25 Unknown History polyethylene glycol 3350 17 17 g PO DAILY PRN constipation Unknown History gram/dose oral powder (Miralax) sertraline 50 mg tablet 75 mg PO DAILY depression 02/07/25 Unknown History torsemide 10 mg tablet 10 mg PO DAILY water pill 02/07/25 Unknown History Allergy/AdvReac Type Severity Reaction Status Date / Time Latex, Natural Rubber AdvReac Rash Verified 02/07/25 09:31 Family History (Updated 02/07/25 @ 16:[address] Jaciel Olivier MD) Other CVA (cerebral vascular accident) Cancer Heart disease Surgical History (Updated 02/07/25 @ 16:[address] Jaciel Olivier MD) Status post hysterectomy Social History (Updated 02/07/25 @ 13:06 by Jaz Mon) housing: assisted living facility Smoking Status: Never smoker ROS Constitutional Constitutional: Denies chills, fatigue, fever(s) or malaise Eyes (more content not included)... Normal [facility] Hematocrit Auto (Bld) [Volum e fraction]Ordered By: Compa Rebeccasilvia on 02-07-2025 Hematocrit (Bld) [Volume fraction] 35.0 % Low 37-47 [facility] Hemoglobin measurementOrdere d By: Compa Fernandezsilvia on 02-07-2025 Hemoglobin (Bld) [Mass/Vol] 11.4 g/dL Low 12.0-15.0 [facility] Immature granulocytes/100 WB C Auto (Bld)Ordered By: Compa Sibley on 02-07-2025 Immature granulocytes/100 WBC (Bld) 0.400 % 0.0-0.9 [facility] Comment on above: IG% - Immature Granu locytes (promyelocytes, myelocytes and metamyelocytes) > 1% indicates that a LEFT SHIFT is Present. International normalized rat io (INR) calculationOrdered By: Compa Sibley on 02-07-2025 INR Coag (Bld) [Relative time] 1.1 {INR} [facility] Ketones Test strip Ql (U)Ord ered By: Compa Rebeccasilvia on 02-07-2025 Ketones Ql (U) Negative Negative [facility] L499.0042on 02-07-2025 Trop T High Sen 9 ng/L Normal <=14 [facility] Comment on above: Performed By: #### L 499.0042 #### [facility] [address] [place], [address] L499.0043on 02-07-2025 Trop T High Sen 11 ng/L Normal <=14 [facility] Comment on above: Performed By: #### L 100.0500, L500.2500, L503.7505 #### [facility] [address] [place], [address] L501.4021on 02-07-2025 Trop T High Sen 9 ng/L Normal <=14 [facility] Comment on above: Performed By: #### L 100.0500, L500.2500, L503.7505 #### [facility] [address] [place], [address] MCV (mean corpuscular volume ) determinationOrdered By: Compa Sibley on 02-07-2025 MCV (RBC) [Entitic vol] 91.4 fL 81-99 [facility] Mean corpuscular hemoglobin (MCH) determinationOrdered By: Compa Sibley on 02-07-2025 MCH (RBC) [Entitic mass] 29.8 pg 27.0-32.0 [facility] Mean corpuscular hemoglobin concentration (MCHC) determinationOrdered By: Compa Sibley on 02-07-2025 MCHC (RBC) [Mass/Vol] 32.6 g/dL 32-36 [facility] Mean platelet volume determi nationOrdered By: Compa Sibley on 02-07-2025 Platelet mean volume (Bld) [Entitic vol] 10.6 fL 6.2-12.0 [facility] Microscopic analysis of urin e for red blood cells (RBC)Ordered By: Compa Sibley on 02-07-2025 Microscopic analysis of urine for red blood cells (RBC) 0 SEEN /hpf 0-5 [facility] Monocyte percentageOrdered B y: Compa Sibley on 02-07-2025 Monocytes/100 WBC (Bld) 7.2 % 0-10 [facility] Mucus LM Ql (Urine sed)Order ed By: Compa Sibley on 02-07-2025 Mucus Ql (Urine sed) 0 SEEN /hpf [facility] Neutrophil percentageOrdered By: Compa Sibley on 02-07-2025 Neutrophils/100 WBC (Bld) 77.2 % High 47-70 [facility] Nitrite Test strip Ql (U)Ord ered By: Compa Sibley on 02-07-2025 Nitrite Ql (U) Negative Negative [facility] Nucleated red blood cell per centageOrdered By: Compa Sibley on 02-07-2025 Nucleated RBC/100 WBC (Bld) [Ratio] 0 % 0-5 [facility] Partial Thromboplast Timeon 02-07-2025 aPTT Coag (Bld) [Time] 33.3 s Normal 24.1-36.2 [facility] Comment on above: Performed By: #### L 100.0500, L500.2500, L503.1875 #### [facility] [address] [place], [address] Platelet countOrdered By: Thiago Sibley on 02-07-2025 Platelets (Bld) [#/Vol] 195 10*3/uL 150-450 [facility] Potassium measurement (mass/ volume)Ordered By: Compa Sibley on 02-07-2025 Potassium (Unsp spec) [Mass/Vol] 4.0 mmol/L 3.3-5.1 [facility] Comment on above: Hemolysis present, R esults could be affected. Protein Test strip Ql (U)Ord ered By: Compa Sibley on 02-07-2025 Protein Ql (U) Negative Negative [facility] Prothrombin Time w/INRon INR Coag (PPP) [Relative time] 1.1 {INR} Normal [facility] Comment on above: Performed By: #### L 100.0500, L500.2500, L503.7505 #### [facility] [address] [place], [address] PT Coag (PPP) [Time] 14.5 s Normal 11.7-14.9 [facility] Comment on above: Performed By: #### L 100.0500, L500.2500, L503.7505 #### [facility] [address] [place], [address] Prothrombin timeOrdered By: Compa Sibley on 02-07-2025 PT Coag (PPP) [Time] 14.5 s 11.7-14.9 [facility] RBC Auto (Bld) [#/Vol]Ordere d By: Compa Sibley on 02-07-2025 RBC (Bld) [#/Vol] 3.83 10*6/uL Low 4.2-5.4 [facility] STROKE Brain/Head without Co nton 02-07-2025 STROKE Brain/Head without Cont [facility] Imaging Services [address] [place] [address] STROKE Brain/Head without Cont MR#: [id number] Acct: [id number] Name: KAMILAH MCKEON Rep #: [id number] : 1945 F 79 From: Edson Acosta PCP: Gerda Wilks MD Status: REG ER Study: STROKE Brain/Head without Cont Date of Exam: 0 02/07/25 Exam# [id number] Ordering Dr: Compa Sibley MD ADDENDUM by Dr. Edson Rodriguez MD on 02/07/[address] Sibley was notified by Edson Rodriguez at 9:50am EST on 02/07/25 Reading Location: [facility] 02/07/25 0958 Date cc: Dr. Compa Sibley MD; Gerda Wilks MD * Signed PROCEDURE: STROKE BRAIN/HEAD WITHOUT CONT 02/07/2025 REASON FOR EXAM: NEURO DEFICIT, ACUTE, STROKE SUSPECTED TECHNIQUE: STROKE BRAIN/HEAD WITHOUT CONT Coronal and Sagittal reconstruction series were provided. One or more dose reduction techniques were used (e.g., Automated exposure control, adjustment of the mA and/or kV according to patient size, use of iterative reconstruction technique. RADIATION DOSE SUMMARY: DLP: 830 mGycm COMPARISON: 06/29/2020 FINDINGS: There is no acute infarct, intracranial hemorrhage, or mass effect. There is no hydrocephalus or significant midline shift. There is moderate chronic microvascular ischemic changes and moderate parenchymal volume loss. No acute, depressed calvarial fractures. No large scalp hematomas. CT/STROKE Brain/Head without Cont IMPRESSION: No acute, large territorial infarction. Reading Location: [facility] CC: Dr. Compa Sibley MD; Gerda Wilks MD [employer]: Signed Normal [facility] STROKE CTA Head AND Neck W/C onon 02-07-2025 STROKE CTA Head AND Neck W/Con [facility] Imaging Services [address] [place] [address] [phone] STROKE CTA Head AND Neck W/Con MR#: [id number] Acct: [id number] Name: KAMILAH MCKEON Rep #: [id number] : 1945 F 79 From: Edson Acsota PCP: Gerda Wilks MD Status: REG ER Study: STROKE CTA Head AND Neck W/Con Date of Exam: 0 02/07/25 Exam# [id number] Ordering Dr: Compa Sibley MD PROCEDURE: STROKE CTA HEAD AND NECK W/CON 02/07/2025 REASON FOR EXAM: NEURO DEFICIT, ACUTE, STROKE SUSPECTED TECHNIQUE: STROKE CTA HEAD AND NECK W/CON Multiplanar and multisequence images were obtained. CONTRAST: 100 mL of Isovue 370 One or more dose reduction techniques were used (e.g., Automated exposure control, adjustment of the mA and/or kV according to patient size, use of iterative reconstruction technique). RADIATION DOSE SUMMARY: DLP: 644 mGycm COMPARISON: None FINDINGS: The aortic arch demonstrates a type I configuration. The ostia of the great vessels are patent. There is conventional branching. The right CCA is patent. Mild carotid bulb atherosclerosis without significant stenosis. The cervical right ICA is patent. The right MCA and right ASAD appear patent. There is no large vessel occlusion. The left CCA is patent. Mild carotid bulb atherosclerosis without significant stenosis. The cervical left ICA is patent. The left MCA and left ASAD appear patent. There is no large vessel occlusion. The right vertebral artery arises from the right subclavian artery. The left vertebral artery arises from the left subclavian artery. Both vertebral arteries are patent. Both vertebral arteries join to form the patent basilar artery. Both posterior cerebral arteries arise from the tip of the basilar. Both proximal [employer] segments are patent. There is no large vessel occlusion. There is no enhancing intracranial mass. Shotty cervical lymph nodes are identified. The thyroid gland is heterogeneous. The lung apices demonstrate no pneumothorax. No destructive osseous abnormalities identified. CT/STROKE CTA Head AND Neck W/Con IMPRESSION: No acute large vessel occlusion or high-grade stenosis. Dr. Sibley was notified by Edson Rodriguez at 9:50am EST on 02/07/25 Reading Location: [facility] CC: Dr. Compa Sibley MD; Gerda Wilks MD [employer]: Signed Normal [facility] Serum creatinine measurement (mass/volume)Ordered By: Compa Sibley on 02-07-2025 Creatinine [Mass/Vol] 0.77 mg/dL 0.70-1.20 [facility] Serum glucose measurement (m ass/volume)Ordered By: Compa Sibley on 02-07-2025 Glucose [Mass/Vol] 117 mg/dL High 70-99 [facility] Serum or plasma calcium chay urement (mass/volume)Ordered By: Compa Sibley on 02-07-2025 Calcium [Mass/Vol] 9.3 mg/dL 7.6-11.0 [facility] Serum or plasma urea nitroge n measurement (mass/volume)Ordered By: Compa Sibley on 02-07-2025 Urea nitrogen [Mass/Vol] 18 mg/dL 4-19 [facility] Sodium levelOrdered By: Compa Sibley on 02-07-2025 Sodium [Moles/Vol] 137 mmol/L 133-145 [facility] Squamous epithelial cells de tection in urine sediment by light microscopyOrdered By: Compa Sibley on 02-07-2025 Epithelial cells.squamous LM Ql (Urine sed) 0 SEEN /hpf 5-10 [facility] Troponin T.cardiac [Mass/vol ume] in Serum or Plasma by High sensitivity methodOrdered By: Compa Sibley on 02-07-2025 Troponin T.cardiac High sensitivity method [Mass/Vol] 11 ng/L <14 [facility] Troponin T.cardiac High sensitivity method [Mass/Vol] 9 ng/L <14 [facility] Troponin T.cardiac High sensitivity method [Mass/Vol] 9 ng/L <14 [facility] Urinalysis, Completeon 02-07 BACTERIA 0 SEEN Normal None Seen [facility] Comment on above: Order Comment: 128 Performed By: #### L 100.0500, L500.2500, L503.7503 #### [facility] [address] [place], [place], [id number] EPI,SQUAMOUS 0 SEEN Normal 5-10 [facility] Comment on above: Order Comment: 128 Performed By: #### L 100.0500, L500.2500, L503.7505 #### [facility] [address] [place], [address] Mucus Ql (Urine sed) 0 SEEN Normal [facility] Comment on above: Order Comment: 128 Performed By: #### L 100.0500, L500.2500, L503.7505 #### [facility] [address] [place], [address] RBC 0 SEEN Normal 0-5 [facility] Comment on above: Order Comment: 128 Performed By: #### L 100.0500, L500.2500, L503.7505 #### [facility] [address] [place], [address] WBC 0 SEEN Normal 0-5 [facility] Comment on above: Order Comment: 128 Performed By: #### L 100.0500, L500.2500, L503.7505 #### [facility] [address] [place], [address] Urine clarityOrdered By: Bibi Sibley on 02-07-2025 Clarity (U) Clear Clear [facility] Urine color determinationOrd ered By: Copma Sibley on 02-07-2025 Color (U) Yellow Yellow [facility] Urine glucose detectionOrder ed By: Compa Sibley on 02-07-2025 Glucose Ql (U) Normal mg/dl Normal [facility] Urine leukocyte esterase det ection by dipstickOrdered By: Compa Sibley on 02-07-2025 Leukocyte esterase Test strip Ql (U) Negative Negative [facility] Urine pHOrdered By: Compa elliott on 02-07-2025 pH (U) 7.0 [pH] 5.0 - 8.0 [facility] Urine sediment bacteria coun t by microscopy (number/high power field)Ordered By: Compa Sibley on 02-07-2025 Bacteria LM.HPF (Urine sed) [#/Area] 0 /[HPF] None Seen [facility] Urine specific gravity measu rementOrdered By: Compa Sibley on 02-07-2025 Specific gravity (U) [Rel density] 1.005 1.002-1.030 [facility] Urine urobilinogen measureme ntOrdered By: Compa Sibley on 02-07-2025 Urobilinogen Ql (U) Normal mg/dl Normal [facility] White blood cell (WBC) count Ordered By: Compa Sibley on 02-07-2025 WBC (Bld) [#/Vol] 6.9 10*3/uL 4.4-11.0 [facility] White blood cell countOrdere d By: Compa Sibley on 02-07-2025 White blood cell count 0 SEEN /hpf 0-5 [facility] Anion gap in Serum or Plasma Ordered By: Gerda Wilks on 01-30-2025 Anion gap [Moles/Vol] 10 mmol/L 5-15 [facility] BUN/creatinine ratioOrdered By: Gerda Wilks on 01-30-2025 Urea nitrogen/Creatinine [Mass ratio] 23.4 mg/mg High 10-20 [facility] Basic Metabolic Profile (BMP )on 01-30-2025 BUN/CRE 23.4 RATIO High 10-20 [facility] Comment on above: Order Comment: 128 Performed By: #### L 100.0500, L500.2500, L503.7505 #### [facility] [address] [place], [address] Calcium [Mass/Vol] 9.2 mg/dL Normal 7.6-11.0 [facility] Comment on above: Order Comment: 128 Performed By: #### L 100.0500, L500.2500, L503.7505 #### [facility] [address] [place], [address] Chloride [Moles/Vol] 109 mmol/L High 98-108 [facility] Comment on above: Order Comment: 128 Performed By: #### L 100.0500, L500.2500, L503.7505 #### [facility] [address] [place], [address] CO2 [Moles/Vol] 23.1 mmol/L Normal 21.0-32.0 [facility] Comment on above: Order Comment: 128 Performed By: #### L 100.0500, L500.2500, L503.7505 #### [facility] [address] [place], [address] Creatinine [Mass/Vol] 0.85 mg/dL Normal 0.70-1.20 [facility] Comment on above: Order Comment: 128 Performed By: #### L 100.0500, L500.2500, L503.7505 #### [facility] [address] [place], [address] GAP 10 Normal 5-15 [facility] Comment on above: Order Comment: 128 Performed By: #### L 100.0500, L500.2500, L503.7505 #### [facility] [address] [place], [address] GFR/1.73 sq M.predicted among non-blacks MDRD (S/P/Bld) [Vol rate/Area] 71 mL/min/{1.73_m2} Normal >60 [facility] Comment on above: Order Comment: 128 Result Comment: mL/m in/1.73m2 CKD-EPI Creatinine Equation (2020) Performed By: #### L 100.0500, L500.2500, L503.7505 #### [facility] [address] [place], [address] Glucose [Mass/Vol] 112 mg/dL High 70-99 [facility] Comment on above: Order Comment: 128 Performed By: #### L 100.0500, L500.2500, L503.7505 #### [facility] [address] [place], [address] Potassium [Moles/Vol] 4.0 mmol/L Normal 3.3-5.1 [facility] Comment on above: Order Comment: 128 Performed By: #### L 100.0500, L500.2500, L503.7505 #### [facility] [address] [place], [address] Sodium [Moles/Vol] 143 mmol/L Normal 133-145 [facility] Comment on above: Order Comment: 128 Performed By: #### L 100.0500, L500.2500, L503.7505 #### [facility] [address] [place], [address] Urea nitrogen [Mass/Vol] 20 mg/dL High 4-19 [facility] Comment on above: Order Comment: 128 Performed By: #### L 100.0500, L500.2500, L503.7505 #### [facility] [address] [place], [address] CBC-Complete Blood Cnt No Di ffon 01-30-2025 Erythrocyte distribution width (RBC) [Ratio] 16.3 % High 11.6-14.6 [facility] Comment on above: Order Comment: 128 Performed By: #### L 100.0500, L500.2500, L503.7505 #### [facility] [address] [place], [address] Hematocrit (Bld) [Volume fraction] 36.9 % Low 37-47 [facility] Comment on above: Order Comment: 128 Performed By: #### L 100.0500, L500.2500, L503.7505 #### [facility] [address] [place], [address] Hemoglobin (Bld) [Mass/Vol] 11.9 g/dL Low 12.0-15.0 [facility] Comment on above: Order Comment: 128 Performed By: #### L 100.0500, L500.2500, L503.7505 #### [facility] [address] [place], [address] MCH (RBC) [Entitic mass] 29.8 pg Normal 27.0-32.0 [facility] Comment on above: Order Comment: 128 Performed By: #### L 100.0500, L500.2500, L503.7505 #### [facility] [address] [place], [address] MCHC (RBC) [Mass/Vol] 32.2 g/dL Normal 32-36 [facility] Comment on above: Order Comment: 128 Performed By: #### L 100.0500, L500.2500, L503.7505 #### [facility] [address] [place], [address] MCV (RBC) [Entitic vol] 92.3 fL Normal 81-99 [facility] Comment on above: Order Comment: 128 Performed By: #### L 100.0500, L500.2500, L503.7505 #### [facility] [address] [place], [address] Platelet mean volume (Bld) [Entitic vol] 11.2 fL Normal 6.2-12.0 [facility] Comment on above: Order Comment: 128 Performed By: #### L 100.0500, L500.2500, L503.7505 #### [facility] [address] [place], [address] Platelets (Bld) [#/Vol] 242 10*3/uL Normal 150-450 [facility] Comment on above: Order Comment: 128 Performed By: #### L 100.0500, L500.2500, L503.7505 #### [facility] [address] [place], [address] RBC (Bld) [#/Vol] 4.00 10*6/uL Low 4.2-5.4 [facility] Comment on above: Order Comment: 128 Performed By: #### L 100.0500, L500.2500, L503.7505 #### [facility] [address] [place], [address] RDW SD 55.4 fl High 35.1-43.9 [facility] Comment on above: Order Comment: 128 Performed By: #### L 100.0500, L500.2500, L503.7505 #### [facility] [address] [place], [address] WBC (Bld) [#/Vol] 6.8 10*3/uL Normal 4.4-11.0 [facility] Comment on above: Order Comment: 128 Performed By: #### L 100.0500, L500.2500, L503.7505 #### [facility] [address] [place], [address] Carbon dioxide, total [Moles /volume] in Central venous bloodOrdered By: Gerda Wilks on 01-30-2025 CO2 [Moles/Vol] 23.1 mmol/L 21.0-32.0 [facility] Chloride assayOrdered By: Go Wilks on 01-30-2025 Chloride [Moles/Vol] 109 mmol/L High 98-108 [facility] Erythrocyte distribution wid th ratioOrdered By: Gerda Wilks on 01-30-2025 Erythrocyte distribution width (RBC) [Ratio] 16.3 % High 11.6-14.6 [facility] Erythrocyte distribution wid th standard deviationOrdered By: Gerda Wilks on 01-30-2025 Erythrocyte distribution width (RBC) [Ratio] 55.4 fl High 35.1-43.9 [facility] Glomerular filtration rate ( GFR) estimation/1.73 sq m using serum, plasma, or whole bOrdered By: Gerda Wilks on 01-30-2025 GFR/1.73 sq M.predicted among non-blacks MDRD (S/P/Bld) [Vol rate/Area] 71 mL/min/{1.73_m2} >60 [facility] Comment on above: mL/min/1.73m2 CKD-EP I Creatinine Equation (2020) Hematocrit Auto (Bld) [Volum e fraction]Ordered By: Gerda Wilks on 01-30-2025 Hematocrit (Bld) [Volume fraction] 36.9 % Low 37-47 [facility] Hemoglobin measurementOrdere d By: Gerda Wilks on 01-30-2025 Hemoglobin (Bld) [Mass/Vol] 11.9 g/dL Low 12.0-15.0 [facility] L503.7505on 01-30-2025 Natriuretic peptide B (Bld) [Mass/Vol] 242 pg/mL Normal <=1800 [facility] Comment on above: Order Comment: 128 Result Comment: Hear t Failure Unlikely: < 300 pg/mL Heart Failure Likely < 50 Years: > 450 pg/mL 50-75 Years: > 900 pg/mL >75 Years: > 1800 pg/mL Performed By: #### L 100.0500, L500.2500, L503.7505 #### [facility] [address] [place] [address]. [place], [address] MCV (mean corpuscular volume ) determinationOrdered By: Gerda Wilks on 01-30-2025 MCV (RBC) [Entitic vol] 92.3 fL 81-99 [facility] Mean corpuscular hemoglobin (MCH) determinationOrdered By: Gerda Wilks on 01-30-2025 MCH (RBC) [Entitic mass] 29.8 pg 27.0-32.0 [facility] Mean corpuscular hemoglobin concentration (MCHC) determinationOrdered By: Gerda Wilks on 01-30-2025 MCHC (RBC) [Mass/Vol] 32.2 g/dL 32-36 [facility] Mean platelet volume determi nationOrdered By: Gerda Wilks on 01-30-2025 Platelet mean volume (Bld) [Entitic vol] 11.2 fL 6.2-12.0 [facility] Natriuretic peptide.B prohor axel N-Terminal [Mass/volume] in Serum or PlasmaOrdered By: Gerda Wilks on 01-30-2025 Natriuretic peptide.B prohormone N-Terminal [Mass/Vol] 242 pg/mL <1800 [facility] Comment on above: Heart Failure Unlike ly: < 300 pg/mLHeart Failure Likely< 50 Years: > 450 pg/mL50-75 Years: > 900 pg/mL>75 Years: > 1800 pg/mL Platelet countOrdered By: Go Wilks on 01-30-2025 Platelets (Bld) [#/Vol] 242 10*3/uL 150-450 [facility] Potassium measurement (mass/ volume)Ordered By: Gerda Wilks on 01-30-2025 Potassium (Unsp spec) [Mass/Vol] 4.0 mmol/L 3.3-5.1 [facility] RBC Auto (Bld) [#/Vol]Ordere d By: Gerda Wilks on 01-30-2025 RBC (Bld) [#/Vol] 4.00 10*6/uL Low 4.2-5.4 [facility] Serum creatinine measurement (mass/volume)Ordered By: Gerda Wilks on 01-30-2025 Creatinine [Mass/Vol] 0.85 mg/dL 0.70-1.20 [facility] Serum glucose measurement (m ass/volume)Ordered By: Gerda Wilks on 01-30-2025 Glucose [Mass/Vol] 112 mg/dL High 70-99 [facility] Serum or plasma calcium chay urement (mass/volume)Ordered By: Gerda Wilks on 01-30-2025 Calcium [Mass/Vol] 9.2 mg/dL 7.6-11.0 [facility] Serum or plasma urea nitroge n measurement (mass/volume)Ordered By: Gerda Wilks on 01-30-2025 Urea nitrogen [Mass/Vol] 20 mg/dL High 4-19 [facility] Sodium levelOrdered By: Melani Wilks on 01-30-2025 Sodium [Moles/Vol] 143 mmol/L 133-145 [facility] White blood cell (WBC) count Ordered By: Gerda Wliks on 01-30-2025 WBC (Bld) [#/Vol] 6.8 10*3/uL 4.4-11.0 [facility] Basic Metabolic Profile (BMP )on 01-29-2025 BUN Normal 4-19 [facility] Comment on above: Order Comment: 510.1 Result Comment: RENETTA ENT REFUSED Performed By: #### L 500.2500, L100.0500 #### [facility] [address] [place], [address] BUN/CRE Normal 10-20 [facility] Comment on above: Order Comment: 510.1 Result Comment: RENETTA ENT REFUSED Performed By: #### L 500.2500, L100.0500 #### [facility] [address] [place], [address] Calcium Normal 7.6-11.0 [facility] Comment on above: Order Comment: 510.1 Result Comment: RENETTA ENT REFUSED Performed By: #### L 500.2500, L100.0500 #### [facility] [address] [place], [address] CL Normal 98-108 [facility] Comment on above: Order Comment: 510.1 Result Comment: RENETTA ENT REFUSED Performed By: #### L 500.2500, L100.0500 #### [facility] [address] [place], [address] CO2 Normal 21.0-32.0 [facility] Comment on above: Order Comment: 510.1 Result Comment: RNEETTA ENT REFUSED Performed By: #### L 500.2500, L100.0500 #### [facility] [address] [place], [address] CREAT,SERUM Normal 0.70-1.20 [facility] Comment on above: Order Comment: 510.1 Result Comment: RENETTA ENT REFUSED Performed By: #### L 500.2500, L100.0500 #### [facility] [address] [place], [address] eGFR Normal >60 [facility] Comment on above: Order Comment: 510.1 Result Comment: RENETTA ENT REFUSED Performed By: #### L 500.2500, L100.0500 #### [facility] [address] [place], [address] GAP Normal 5-15 [facility] Comment on above: Order Comment: 510.1 Result Comment: RENETTA ENT REFUSED Performed By: #### L 500.2500, L100.0500 #### [facility] [address] [place], [address] GLU Normal 70-99 [facility] Comment on above: Order Comment: 510.1 Result Comment: RENETTA ENT REFUSED Performed By: #### L 500.2500, L100.0500 #### [facility] [address] [place], [address] Potassium Normal 3.3-5.1 [facility] Comment on above: Order Comment: 510.1 Result Comment: RENETTA ENT REFUSED Performed By: #### L 500.2500, L100.0500 #### [facility] [address] [place], [address] Basic Metabolic Profile (BMP) Normal 133-145 [facility] Comment on above: Order Comment: 510.1 Result Comment: RENETTA ENT REFUSED Performed By: #### L 500.2500, L100.0500 #### [facility] [address] [place], [address] CBC-Complete Blood Cnt No Di ffon 01-29-2025 HCT Normal 37-47 [facility] Comment on above: Order Comment: 510.1 Result Comment: RENETTA ENT REFUSED Performed By: #### L 500.2500, L100.0500 #### [facility] [address] [place], [address] HGB Normal 12.0-15.0 [facility] Comment on above: Order Comment: 510.1 Result Comment: RENETTA ENT REFUSED Performed By: #### L 500.2500, L100.0500 #### [facility] [address] [place], [address] MCH Normal 27.0-32.0 [facility] Comment on above: Order Comment: 510.1 Result Comment: RENETTA ENT REFUSED Performed By: #### L 500.2500, L100.0500 #### [facility] [address] [place], [address] MCHC Normal 32-36 [facility] Comment on above: Order Comment: 510.1 Result Comment: RENETTA ENT REFUSED Performed By: #### L 500.2500, L100.0500 #### [facility] [address] [place], [address] MCV Normal 81-99 [facility] Comment on above: Order Comment: 510.1 Result Comment: RENETTA ENT REFUSED Performed By: #### L 500.2500, L100.0500 #### [facility] [address] [place], [address] PLT Normal 150-450 [facility] Comment on above: Order Comment: 510.1 Result Comment: RENETTA ENT REFUSED Performed By: #### L 500.2500, L100.0500 #### [facility] [address] [place], [address] RBC Normal 4.2-5.4 [facility] Comment on above: Order Comment: 510.1 Result Comment: RENETTA ENT REFUSED Performed By: #### L 500.2500, L100.0500 #### [facility] [address] [place], [address] RDW CV Normal 11.6-14.6 [facility] Comment on above: Order Comment: 510.1 Result Comment: RENETTA ENT REFUSED Performed By: #### L 500.2500, L100.0500 #### [facility] [address] [place], [address] RDW SD Normal 35.1-43.9 [facility] Comment on above: Order Comment: 510.1 Result Comment: RENETTA ENT REFUSED Performed By: #### L 500.2500, L100.0500 #### [facility] [address] [place], [address] WBC Normal 4.4-11.0 [facility] Comment on above: Order Comment: 510.1 Result Comment: RENETTA ENT REFUSED Performed By: #### L 500.2500, L100.0500 #### [facility] [address] [place], [address] Basic Metabolic Profile (BMP )on 08-15-2024 BUN/CRE 20.8 RATIO High -20 [facility] Comment on above: Order Comment: 128 Performed By: #### L 100.0500, L500.2500, L503.7505 #### [facility] [address] [place], [address] CA,Total 8.6 mg/dL Normal 8.5-10.1 [facility] Comment on above: Order Comment: 128 Performed By: #### L 100.0500, L500.2500, L503.7505 #### [facility] [address] [place], [address] Chloride [Moles/Vol] 111 mmol/L High 98-107 [facility] Comment on above: Order Comment: 128 Performed By: #### L 100.0500, L500.2500, L503.7505 #### [facility] [address] [place], [address] CO2 [Moles/Vol] 26.0 mmol/L Normal 21.0-32.0 [facility] Comment on above: Order Comment: 128 Performed By: #### L 100.0500, L500.2500, L503.7505 #### [facility] [address] [place], [address] Creatinine [Mass/Vol] 1.01 mg/dL Normal 0.55-1.02 [facility] Comment on above: Order Comment: 128 Result Comment: The validity of the calculated GFR GFRAA in patients over 70 years has not been determined. Clinical correlation is essential. Performed By: #### L 100.0500, L500.2500, L503.7505 #### [facility] [address] [place], [address] EST GFR - AA 68 mL/min Normal >60 [facility] Comment on above: Order Comment: 128 Result Comment: Afri can Hungarian GFR Calc Performed By: #### L 100.0500, L500.2500, L503.7505 #### [facility] [address] [place], [address] GAP 5 Normal 5-15 [facility] Comment on above: Order Comment: 128 Performed By: #### L 100.0500, L500.2500, L503.7505 #### [facility] [address] [place], [address] GFR/1.73 sq M.predicted among non-blacks MDRD (S/P/Bld) [Vol rate/Area] 56 mL/min/{1.73_m2} Low >60 [facility] Comment on above: Order Comment: 128 Result Comment: Non- GFR Calc Performed By: #### L 100.0500, L500.2500, L503.7505 #### [facility] [address] [place], [address] Glucose [Mass/Vol] 108 mg/dL High 74-106 [facility] Comment on above: Order Comment: 128 Result Comment: Fast ing Glucose result from 100 to 125 mg/dL suggests IMPAIRED HOMEOSTASIS per A.D.A. criteria. Performed By: #### L 100.0500, L500.2500, L503.7505 #### [facility] [address] [place], [address] Potassium [Moles/Vol] 3.7 mmol/L Normal 3.5-5.1 [facility] Comment on above: Order Comment: 128 Performed By: #### L 100.0500, L500.2500, L503.7505 #### [facility] [address] [place], [address] Sodium [Moles/Vol] 142 mmol/L Normal 136-145 [facility] Comment on above: Order Comment: 128 Performed By: #### L 100.0500, L500.2500, L503.7505 #### [facility] [address] [place], [address] Urea nitrogen [Mass/Vol] 21 mg/dL High 7-18 [facility] Comment on above: Order Comment: 128 Performed By: #### L 100.0500, L500.2500, L503.7505 #### [facility] [address] [place], [address] Magnesiumon 08-15-2024 Magnesium [Mass/Vol] 2.1 mg/dL Normal 1.6-2.6 [facility] Comment on above: Order Comment: 128 Performed By: #### L 100.0500, L500.2500, L503.7505 #### [facility] [address] [place], [address] Emergency Department Summary on 07-09-2024 Emergency Department Summary [facility] Medical Records Department [address] [place] [address] Emergency Department Summary 07/09/24 MR#: [id number] Acct: [id number] Name: KAMILAH MCKEON Rep #: [id number] : 1945 79 From: Eduardo Gilmore MD PCP: Gerda Wilks MD Status:REG ER Location: ED HPI History of Present Illness Chief Complaint: Lower Extremity Injury Detail of Chief Complaint: Pain medial aspect of left thigh Informant: patient Onset/Context/Kgin guillermina Onset: Days Context: Sudden Onset Timing: Continuous [...] and trauma) Recent Illness/Hospitaliza tion: No PFSH PFSH Medical History Injury of back Rectal bleeding [...] moist muco (more content not included)... Normal [facility] Venous Duplex Imag/Limited/U navi 07-09-2024 Venous Duplex Imag/Limited/Uni [facility] Services [address] [place] [address] Venous Duplex Imag/Limited/Uni MR#: [id number] Acct: [id number] Name: KAMILAH MCKEON Maggie Rep #: [id number] : 1945 F 79 From: Tha Washington MD PCP: Gerda Wilks MD Status: REG ER Study: Venous Duplex Imag/Limited/Uni Date of Exam: 09/08/23 Exam# [id number] Ordering Dr: Eduardo Gilmore MD -[id number] STUDY: VENOUS DOPPLER ULTRASOUND - LEFT [...] Signed: Tha Washington MD at 20:24 EST , CC: Dr. Eduardo Gilmore MD; Gerda Wilks MD [employer]: Signed Normal [facility] W/Diff, Automatedon 10-2 Absolute Lymph 1.58 X10 3/uL Normal 0.83-4.51 [facility] Comment on above: Order Comment: 128 Performed By: #### L 100.0500, L500.2500, L503.7505 #### [facility] [address] [place], [address] Absolute Neut 4.7 X10 3/uL Normal 2.0-7.7 [facility] Comment on above: Order Comment: 128 Performed By: #### L 100.0500, L500.2500, L503.7505 #### [facility] [address] [place], [address] Basophils/100 WBC (Bld) 0.8 % Normal 0-1 [facility] Comment on above: Order Comment: 128 Performed By: #### L 100.0500, L500.2500, L503.7505 #### [facility] [address] [place], [address] Eosinophils/100 WBC (Bld) 4.6 % Normal 0-5 [facility] Comment on above: Order Comment: 128 Performed By: #### L 100.0500, L500.2500, L503.7505 #### [facility] [address] [place], [address] Erythrocyte distribution width (RBC) [Ratio] 16.0 % High 11.6-14.6 [facility] Comment on above: Order Comment: 128 Performed By: #### L 100.0500, L500.2500, L503.7505 #### [facility] [address] [place], [address] Hematocrit (Bld) [Volume fraction] 37.9 % Normal 37-47 [facility] Comment on above: Order Comment: 128 Performed By: #### L 100.0500, L500.2500, L503.7505 #### [facility] [address] [place], [address] Hemoglobin (Bld) [Mass/Vol] 12.2 g/dL Normal 12.0-15.0 [facility] Comment on above: Order Comment: 128 Performed By: #### L 100.0500, L500.2500, L503.7505 #### [facility] [address] [place], [address] IG% 0.400 Normal 0.0-0.9 [facility] Comment on above: Order Comment: 128 Result Comment: IG% - Immature Granulocytes (promyelocytes, myelocytes and metamyelocytes) > 1% indicates that a LEFT SHIFT is Present. Performed By: #### L 100.0500, L500.2500, L503.7505 #### [facility] [address] [place], [address] Lymphocytes/100 WBC (Bld) 20.9 % Normal 19-41 [facility] Comment on above: Order Comment: 128 Performed By: #### L 100.0500, L500.2500, L503.7505 #### [facility] [address] [place], [address] MCH (RBC) [Entitic mass] 29.6 pg Normal 27.0-32.0 [facility] Comment on above: Order Comment: 128 Performed By: #### L 100.0500, L500.2500, L503.7505 #### [facility] [address] [place], [address] MCHC (RBC) [Mass/Vol] 32.2 g/dL Normal 32-36 [facility] Comment on above: Order Comment: 128 Performed By: #### L 100.0500, L500.2500, L503.7505 #### [facility] [address] [place], [address] MCV (RBC) [Entitic vol] 92.0 fL Normal 81-99 [facility] Comment on above: Order Comment: 128 Performed By: #### L 100.0500, L500.2500, L503.7505 #### [facility] [address] [place], [address] Monocytes/100 WBC (Bld) 10.7 % High 0-10 [facility] Comment on above: Order Comment: 128 Performed By: #### L 100.0500, L500.2500, L503.7505 #### [facility] [address] [place], [address] Neutrophils/100 WBC (Bld) 62.6 % Normal 47-70 [facility] Comment on above: Order Comment: 128 Performed By: #### L 100.0500, L500.2500, L503.7505 #### [facility] [address] [place], [address] Nucleated RBC (Bld) [#/Vol] 0 10*3/uL Normal 0-5 [facility] Comment on above: Order Comment: 128 Performed By: #### L 100.0500, L500.2500, L503.7505 #### [facility] [address] [place], [address] Platelet mean volume (Bld) [Entitic vol] 10.8 fL Normal 6.2-12.0 [facility] Comment on above: Order Comment: 128 Performed By: #### L 100.0500, L500.2500, L503.7505 #### [facility] [address] [place], [address] Platelets (Bld) [#/Vol] 252 10*3/uL Normal 150-450 [facility] Comment on above: Order Comment: 128 Performed By: #### L 100.0500, L500.2500, L503.7505 #### [facility] [address] [place], [address] RBC (Bld) [#/Vol] 4.12 10*6/uL Low 4.2-5.4 [facility] Comment on above: Order Comment: 128 Performed By: #### L 100.0500, L500.2500, L503.7505 #### [facility] [address] [place], [address] RDW SD 54.4 fl High 35.1-43.9 [facility] Comment on above: Order Comment: 128 Performed By: #### L 100.0500, L500.2500, L503.7505 #### [facility] [address] [place], [address] WBC (Bld) [#/Vol] 7.6 10*3/uL Normal 4.4-11.0 [facility] Comment on above: Order Comment: 128 Performed By: #### L 100.0500, L500.2500, L503.7505 #### [facility] [address] [place], [address] Comprehensive Metabolic Prof [facility] 06-16-2024 Albumin [Mass/Vol] 3.3 g/dL Normal 3.2-5.0 [facility] Comment on above: Order Comment: 128 Performed By: #### L 100.0500, L500.2500, L503.7505 #### [facility] [address] [place], [address] Albumin/Globulin [Mass ratio] 0.7 {ratio} Low 0.9-2.4 [facility] Comment on above: Order Comment: 128 Performed By: #### L 100.0500, L500.2500, L503.7505 #### [facility] [address] [place], [address] ALK P 64 U/L Normal 45-117 [facility] Comment on above: Order Comment: 128 Performed By: #### L 100.0500, L500.2500, L503.7505 #### [facility] [address] [place], [address] ALT [Catalytic activity/Vol] 15 U/L Normal 13-56 [facility] Comment on above: Order Comment: 128 Performed By: #### L 100.0500, L500.2500, L503.7505 #### [facility] [address] [place], [address] AST [Catalytic activity/Vol] 13 U/L Low 15-37 [facility] Comment on above: Order Comment: 128 Performed By: #### L 100.0500, L500.2500, L503.7505 #### [facility] [address] [place], [address] Bilirubin [Mass/Vol] 0.30 mg/dL Normal 0.20-1.00 [facility] Comment on above: Order Comment: 128 Result Comment: For patients on eltrombopag therapy, use of Dimension [place] TBIL is not recommended. Performed By: #### L 100.0500, L500.2500, L503.7505 #### [facility] [address] [place], [address] BUN/CRE 22.8 RATIO High 10-20 [facility] Comment on above: Order Comment: 128 Performed By: #### L 100.0500, L500.2500, L503.7505 #### [facility] [address] [place], [address] CA,Total 9.2 mg/dL Normal 8.5-10.1 [facility] Comment on above: Order Comment: 128 Performed By: #### L 100.0500, L500.2500, L503.7505 #### [facility] [address] [place], [address] Chloride [Moles/Vol] 108 mmol/L High 98-107 [facility] Comment on above: Order Comment: 128 Performed By: #### L 100.0500, L500.2500, L503.7505 #### [facility] [address] [place], [address] CO2 [Moles/Vol] 26.0 mmol/L Normal 21.0-32.0 [facility] Comment on above: Order Comment: 128 Performed By: #### L 100.0500, L500.2500, L503.7505 #### [facility] [address] [place], [address] Creatinine [Mass/Vol] 0.97 mg/dL Normal 0.55-1.02 [facility] Comment on above: Order Comment: 128 Result Comment: The validity of the calculated GFR GFRAA in patients over 70 years has not been determined. Clinical correlation is essential. Performed By: #### L 100.0500, L500.2500, L503.7505 #### [facility] [address] [place], [address] EST GFR - AA 72 mL/min Normal >60 [facility] Comment on above: Order Comment: 128 Result Comment: Afri can Hungarian GFR Calc Performed By: #### L 100.0500, L500.2500, L503.7505 #### [facility] [address] [place], [address] GAP 8 Normal 5-15 [facility] Comment on above: Order Comment: 128 Performed By: #### L 100.0500, L500.2500, L503.7505 #### [facility] [address] [place], [address] GFR/1.73 sq M.predicted among non-blacks MDRD (S/P/Bld) [Vol rate/Area] 59 mL/min/{1.73_m2} Low >60 [facility] Comment on above: Order Comment: 128 Result Comment: Non- GFR Calc Performed By: #### L 100.0500, L500.2500, L503.7505 #### [facility] [address] [place], [address] Globulin (S) [Mass/Vol] 4.6 g/dL High 2.2-4.2 [facility] Comment on above: Order Comment: 128 Performed By: #### L 100.0500, L500.2500, L503.7505 #### [facility] [address] [place], [address] Glucose [Mass/Vol] 105 mg/dL Normal 74-106 [facility] Comment on above: Order Comment: 128 Result Comment: Fast ing Glucose result from 100 to 125 mg/dL suggests IMPAIRED HOMEOSTASIS per A.D.A. criteria. Performed By: #### L 100.0500, L500.2500, L503.7505 #### [facility] [address] [place], [address] Potassium [Moles/Vol] 4.2 mmol/L Normal 3.5-5.1 [facility] Comment on above: Order Comment: 128 Performed By: #### L 100.0500, L500.2500, L503.7505 #### [facility] [address] [place], [address] Sodium [Moles/Vol] 142 mmol/L Normal 136-145 [facility] Comment on above: Order Comment: 128 Performed By: #### L 100.0500, L500.2500, L503.7505 #### [facility] [address] [place], [address] T PROT 7.9 g/dL Normal 6.4-8.2 [facility] Comment on above: Order Comment: 128 Performed By: #### L 100.0500, L500.2500, L503.7505 #### [facility] [address] [place], [address] Urea nitrogen [Mass/Vol] 22 mg/dL High 7-18 [facility] Comment on above: Order Comment: 128 Performed By: #### L 100.0500, L500.2500, L503.7505 #### [facility] [address] [place], [address] Hemoglobin A1con 06-16-2024 HbA1c (Bld) [Mass fraction] 6.1 % High 3.8-5.6 [facility] Comment on above: Order Comment: 128 Result Comment: Norm al < 5.7 % Prediabetic 5.7 - 6.4 % Diabetic >or= 6.5 % Please note range changes. Performed By: #### L 100.0500, L500.2500, L503.7505 #### [facility] [address] [place], [address] Magnesiumon 06-16-2024 Magnesium [Mass/Vol] 2.5 mg/dL Normal 1.6-2.6 [facility] Comment on above: Order Comment: 128 Performed By: #### L 100.0500, L500.2500, L503.7505 #### [facility] [address] [place], [address] Thyroid Stim Hormone (TSH)on 06-16-2024 TSH 2.550 uIU/mL Normal 0.358-3.740 [facility] Comment on above: Order Comment: 128 Performed By: #### L 100.0500, L500.2500, L503.7505 #### [facility] [address] [place], [address] Vitamin B12on 06-16-2024 Cobalamin (Vitamin B12) [Mass/Vol] 546 pg/mL Normal 211-911 [facility] Comment on above: Order Comment: 128 Performed By: #### L 100.0500, L500.2500, L503.7505 #### [facility] [address] [place], [address] Vitamin D,25 Hydroxyon 06-16 Vitamin D 25-OH 43.9 ng/mL Normal [facility] Comment on above: Order Comment: 128 Result Comment: Paz min D 25(OH) Status Range Deficiency <20 ng/mL (50nmol/L) Insufficiency 20 - 30 ng/mL (50 - 75 nmol/L) Sufficiency 30 - 100 ng/mL (75 - 250 nmol/L) Toxicity >100 ng/mL (>250 nmol/L) Performed By: #### L 100.0500, L500.2500, L503.7505 #### [facility] [address] [place], [address] CBC-Complete Blood Cnt No Di ffon 05-21-2024 Erythrocyte distribution width (RBC) [Ratio] 16.2 % High 11.6-14.6 [facility] Comment on above: Order Comment: 128 Performed By: #### L 100.0500, L500.2500, L503.7505 #### [facility] [address] [place], [address] Hematocrit (Bld) [Volume fraction] 38.4 % Normal 37-47 [facility] Comment on above: Order Comment: 128 Performed By: #### L 100.0500, L500.2500, L503.7505 #### [facility] [address] [place], [address] Hemoglobin (Bld) [Mass/Vol] 11.7 g/dL Low 12.0-15.0 [facility] Comment on above: Order Comment: 128 Performed By: #### L 100.0500, L500.2500, L503.7505 #### [facility] [address] [place], [address] MCH (RBC) [Entitic mass] 28.3 pg Normal 27.0-32.0 [facility] Comment on above: Order Comment: 128 Performed By: #### L 100.0500, L500.2500, L503.7505 #### [facility] [address] [place], [address] MCHC (RBC) [Mass/Vol] 30.5 g/dL Low 32-36 [facility] Comment on above: Order Comment: 128 Performed By: #### L 100.0500, L500.2500, L503.7505 #### [facility] [address] [place], [address] MCV (RBC) [Entitic vol] 93.0 fL Normal 81-99 [facility] Comment on above: Order Comment: 128 Performed By: #### L 100.0500, L500.2500, L503.7505 #### [facility] [address] [place], [address] Platelet mean volume (Bld) [Entitic vol] 10.5 fL Normal 6.2-12.0 [facility] Comment on above: Order Comment: 128 Performed By: #### L 100.0500, L500.2500, L503.7505 #### [facility] [address] [place], [address] Platelets (Bld) [#/Vol] 267 10*3/uL Normal 150-450 [facility] Comment on above: Order Comment: 128 Performed By: #### L 100.0500, L500.2500, L503.7505 #### [facility] [address] [place], [address] RBC (Bld) [#/Vol] 4.13 10*6/uL Low 4.2-5.4 [facility] Comment on above: Order Comment: 128 Performed By: #### L 100.0500, L500.2500, L503.7505 #### [facility] [address] [place], [address] RDW SD 55.2 fl High 35.1-43.9 [facility] Comment on above: Order Comment: 128 Performed By: #### L 100.0500, L500.2500, L503.7505 #### [facility] [address] [place], [address] WBC (Bld) [#/Vol] 6.9 10*3/uL Normal 4.4-11.0 [facility] Comment on above: Order Comment: 128 Performed By: #### L 100.0500, L500.2500, L503.7505 #### [facility] [address] [place], [address] CRPon 05-21-2024 C-REACTIVE PROT 11.80 mg/L High 0.0-3.0 [facility] Comment on above: Order Comment: 128 Result Comment: C-Re active Protein (CRP) provides useful information for the diagnosis, therapy and monitoring of inflammatory processes and associated diseases. For the evaluation of Relative Risk for Cardiovascular Disease, a High Sensitivity CRP (HSCRP) should be ordered. Performed By: #### L 100.0500, L500.2500, L503.7505 #### [facility] [address] [place], [address] Uric Acidon 05-21-2024 URIC 4.1 mg/dL Normal 2.6-6.0 [facility] Comment on above: Order Comment: 128 Result Comment: The drugs N-Acetylcysteine and Metamizole may falsely depress this assay. Performed By: #### L 100.0500, L500.2500, L503.7505 #### [facility] [address] [place], [address] Basic Metabolic Profile (BMP )on 05-16-2024 BUN/CRE 28.8 RATIO High 06-15 [facility] Comment on above: Order Comment: 510-1 Performed By: #### L 500.2500, L100.0500 #### [facility] [address] [place], [address] CA,Total 9.4 mg/dL Normal 8.5-10.1 [facility] Comment on above: Order Comment: 510-1 Performed By: #### L 500.2500, L100.0500 #### [facility] [address] [place], [address] Chloride [Moles/Vol] 109 mmol/L High 98-107 [facility] Comment on above: Order Comment: 510-1 Performed By: #### L 500.2500, L100.0500 #### [facility] [address] [place], [address] CO2 [Moles/Vol] 23.0 mmol/L Normal 21.0-32.0 [facility] Comment on above: Order Comment: 510-1 Performed By: #### L 500.2500, L100.0500 #### [facility] [address] [place], [address] Creatinine [Mass/Vol] 0.90 mg/dL Normal 0.55-1.02 [facility] Comment on above: Order Comment: 510- Result Comment: The validity of the calculated GFR GFRAA in patients over 70 years has not been determined. Clinical correlation is essential. Performed By: #### L 500.2500, L100.0500 #### [facility] [address] [place], [address] EST GFR - AA 78 mL/min Normal >60 [facility] Comment on above: Order Comment: 510- Result Comment: Afri can Hungarian GFR Calc Performed By: #### L 500.2500, L100.0500 #### [facility] [address] [place], [address] GAP 7 Normal 5-15 [facility] Comment on above: Order Comment: 510- Performed By: #### L 500.2500, L100.0500 #### [facility] [address] [place], [address] GFR/1.73 sq M.predicted among non-blacks MDRD (S/P/Bld) [Vol rate/Area] 64 mL/min/{1.73_m2} Normal >60 [facility] Comment on above: Order Comment: 510- Result Comment: Non- GFR Calc Performed By: #### L 500.2500, L100.0500 #### [facility] [address] [place], [address] Glucose [Mass/Vol] 111 mg/dL High 74-106 [facility] Comment on above: Order Comment: 510-1 Result Comment: Fast ing Glucose result from 100 to 125 mg/dL suggests IMPAIRED HOMEOSTASIS per A.D.A. criteria. Performed By: #### L 500.2500, L100.0500 #### [facility] [address] [place], [address] Potassium [Moles/Vol] 3.9 mmol/L Normal 3.5-5.1 [facility] Comment on above: Order Comment: 510-1 Performed By: #### L 500.2500, L100.0500 #### [facility] [address] [place], [address] Sodium [Moles/Vol] 139 mmol/L Normal 136-145 [facility] Comment on above: Order Comment: 510-1 Performed By: #### L 500.2500, L100.0500 #### [facility] [address] [place], [address] Urea nitrogen [Mass/Vol] 26 mg/dL High 7-18 [facility] Comment on above: Order Comment: 510-1 Performed By: #### L 500.2500, L100.0500 #### [facility] [address] [place], [address] CBC-Complete Blood Cnt No Di ffon 05-16-2024 Erythrocyte distribution width (RBC) [Ratio] 16.4 % High 11.6-14.6 [facility] Comment on above: Order Comment: 510-1 Performed By: #### L 500.2500, L100.0500 #### [facility] [address] [place], [address] Hematocrit (Bld) [Volume fraction] 39.2 % Normal 37-47 [facility] Comment on above: Order Comment: 510-1 Performed By: #### L 500.2500, L100.0500 #### [facility] [address] [place], [address] Hemoglobin (Bld) [Mass/Vol] 12.3 g/dL Normal 12.0-15.0 [facility] Comment on above: Order Comment: 510-1 Performed By: #### L 500.2500, L100.0500 #### [facility] [address] [place], [address] MCH (RBC) [Entitic mass] 28.9 pg Normal 27.0-32.0 [facility] Comment on above: Order Comment: 510-1 Performed By: #### L 500.2500, L100.0500 #### [facility] [address] [place], [address] MCHC (RBC) [Mass/Vol] 31.4 g/dL Low 32-36 [facility] Comment on above: Order Comment: 510-1 Performed By: #### L 500.2500, L100.0500 #### [facility] [address] [place], [address] MCV (RBC) [Entitic vol] 92.2 fL Normal 81-99 [facility] Comment on above: Order Comment: 510-1 Performed By: #### L 500.2500, L100.0500 #### [facility] [address] [place], [address] Platelet mean volume (Bld) [Entitic vol] 10.7 fL Normal 6.2-12.0 [facility] Comment on above: Order Comment: 510-1 Performed By: #### L 500.2500, L100.0500 #### [facility] [address] [place], [address] Platelets (Bld) [#/Vol] 245 10*3/uL Normal 150-450 [facility] Comment on above: Order Comment: 510-1 Performed By: #### L 500.2500, L100.0500 #### [facility] [address] [place], [address] RBC (Bld) [#/Vol] 4.25 10*6/uL Normal 4.2-5.4 [facility] Comment on above: Order Comment: 510-1 Performed By: #### L 500.2500, L100.0500 #### [facility] [address] [place], [address] RDW SD 54.8 fl High 35.1-43.9 [facility] Comment on above: Order Comment: 510-1 Performed By: #### L 500.2500, L100.0500 #### [facility] [address] [place], [address] WBC (Bld) [#/Vol] 7.7 10*3/uL Normal 4.4-11.0 [facility] Comment on above: Order Comment: 510-1 Performed By: #### L 500.2500, L100.0500 #### [facility] [address] [place], [address] Basic Metabolic Profile (BMP )on 04-18-2024 BUN/CRE 24.8 RATIO High 10-20 [facility] Comment on above: Order Comment: 510.1 Performed By: #### L 500.2500, L100.0500 #### [facility] [address] [place], [address] CA,Total 9.0 mg/dL Normal 8.5-10.1 [facility] Comment on above: Order Comment: 510.1 Performed By: #### L 500.2500, L100.0500 #### [facility] [address] [place], [address] Chloride [Moles/Vol] 107 mmol/L Normal 98-107 [facility] Comment on above: Order Comment: 510.1 Performed By: #### L 500.2500, L100.0500 #### [facility] [address] [place], [address] CO2 [Moles/Vol] 26.0 mmol/L Normal 21.0-32.0 [facility] Comment on above: Order Comment: 510.1 Performed By: #### L 500.2500, L100.0500 #### [facility] [address] [place], [address] Creatinine [Mass/Vol] 0.89 mg/dL Normal 0.55-1.02 [facility] Comment on above: Order Comment: 510.1 Result Comment: The validity of the calculated GFR GFRAA in patients over 70 years has not been determined. Clinical correlation is essential. Performed By: #### L 500.2500, L100.0500 #### [facility] [address] [place], [address] EST GFR - AA 79 mL/min Normal >60 [facility] Comment on above: Order Comment: 510.1 Result Comment: Afri can Hungarian GFR Calc Performed By: #### L 500.2500, L100.0500 #### [facility] [address] [place], [address] GAP 7 Normal 5-15 [facility] Comment on above: Order Comment: 510.1 Performed By: #### L 500.2500, L100.0500 #### [facility] [address] [place], [address] GFR/1.73 sq M.predicted among non-blacks MDRD (S/P/Bld) [Vol rate/Area] 66 mL/min/{1.73_m2} Normal >60 [facility] Comment on above: Order Comment: 510.1 Result Comment: Non- GFR Calc Performed By: #### L 500.2500, L100.0500 #### [facility] [address] [place], [address] Glucose [Mass/Vol] 122 mg/dL High 74-106 [facility] Comment on above: Order Comment: 510.1 Result Comment: Fast ing Glucose result from 100 to 125 mg/dL suggests IMPAIRED HOMEOSTASIS per A.D.A. criteria. Performed By: #### L 500.2500, L100.0500 #### [facility] [address] [place], [address] Potassium [Moles/Vol] 3.7 mmol/L Normal 3.5-5.1 [facility] Comment on above: Order Comment: 510.1 Performed By: #### L 500.2500, L100.0500 #### [facility] [address] [place], [address] Sodium [Moles/Vol] 140 mmol/L Normal 136-145 [facility] Comment on above: Order Comment: 510.1 Performed By: #### L 500.2500, L100.0500 #### [facility] [address] [place], [address] Urea nitrogen [Mass/Vol] 22 mg/dL High 7-18 [facility] Comment on above: Order Comment: 510.1 Performed By: #### L 500.2500, L100.0500 #### [facility] [address] [place], [address] CBC-Complete Blood Cnt No Di ffon 04-18-2024 Erythrocyte distribution width (RBC) [Ratio] 15.6 % High 11.6-14.6 [facility] Comment on above: Order Comment: 510.1 Performed By: #### L 500.2500, L100.0500 #### [facility] [address] [place], [address] Hematocrit (Bld) [Volume fraction] 37.4 % Normal 37-47 [facility] Comment on above: Order Comment: 510.1 Performed By: #### L 500.2500, L100.0500 #### [facility] [address] [place], [address] Hemoglobin (Bld) [Mass/Vol] 11.8 g/dL Low 12.0-15.0 [facility] Comment on above: Order Comment: 510.1 Performed By: #### L 500.2500, L100.0500 #### [facility] [address] [place], [address] MCH (RBC) [Entitic mass] 28.7 pg Normal 27.0-32.0 [facility] Comment on above: Order Comment: 510.1 Performed By: #### L 500.2500, L100.0500 #### [facility] [address] [place], [address] MCHC (RBC) [Mass/Vol] 31.6 g/dL Low 32-36 [facility] Comment on above: Order Comment: 510.1 Performed By: #### L 500.2500, L100.0500 #### [facility] [address] [place], [address] MCV (RBC) [Entitic vol] 91.0 fL Normal 81-99 [facility] Comment on above: Order Comment: 510.1 Performed By: #### L 500.2500, L100.0500 #### [facility] [address] [place], [address] Platelet mean volume (Bld) [Entitic vol] 10.6 fL Normal 6.2-12.0 [facility] Comment on above: Order Comment: 510.1 Performed By: #### L 500.2500, L100.0500 #### [facility] [address] [place], [address] Platelets (Bld) [#/Vol] 266 10*3/uL Normal 150-450 [facility] Comment on above: Order Comment: 510.1 Performed By: #### L 500.2500, L100.0500 #### [facility] [address] [place], [address] RBC (Bld) [#/Vol] 4.11 10*6/uL Low 4.2-5.4 [facility] Comment on above: Order Comment: 510.1 Performed By: #### L 500.2500, L100.0500 #### [facility] [address] [place], [address] RDW SD 51.7 fl High 35.1-43.9 [facility] Comment on above: Order Comment: 510.1 Performed By: #### L 500.2500, L100.0500 #### [facility] [address] [place], [address] WBC (Bld) [#/Vol] 8.6 10*3/uL Normal 4.4-11.0 [facility] Comment on above: Order Comment: 510.1 Performed By: #### L 500.2500, L100.0500 #### [facility] [address] [place], [address] Basic Metabolic Profile (BMP )on 03-21-2024 BUN/CRE 23.6 RATIO High 10-20 [facility] Comment on above: Order Comment: 510.1 Performed By: #### L 500.2500, L100.0500 #### [facility] [address] [place], [address] CA,Total 9.1 mg/dL Normal 8.5-10.1 [facility] Comment on above: Order Comment: 510.1 Performed By: #### L 500.2500, L100.0500 #### [facility] [address] [place], [address] Chloride [Moles/Vol] 111 mmol/L High 98-107 [facility] Comment on above: Order Comment: 510.1 Performed By: #### L 500.2500, L100.0500 #### [facility] [place] [facility] [address] [place], [address] CO2 [Moles/Vol] 24.0 mmol/L Normal 21.0-32.0 [facility] Comment on above: Order Comment: 510.1 Performed By: #### L 500.2500, L100.0500 #### [facility] [address] [place], [address] Creatinine [Mass/Vol] 0.89 mg/dL Normal 0.55-1.02 [facility] Comment on above: Order Comment: 510.1 Result Comment: The validity of the calculated GFR GFRAA in patients over 70 years has not been determined. Clinical correlation is essential. Performed By: #### L 500.2500, L100.0500 #### [facility] [address] [place], [address] EST GFR - AA 79 mL/min Normal >60 [facility] Comment on above: Order Comment: 510.1 Result Comment: Afri can Hungarian GFR Calc Performed By: #### L 500.2500, L100.0500 #### [facility] [address] [place], [address] GAP 4 Low 5-15 [facility] Comment on above: Order Comment: 510.1 Performed By: #### L 500.2500, L100.0500 #### [facility] [address] [place], [address] GFR/1.73 sq M.predicted among non-blacks MDRD (S/P/Bld) [Vol rate/Area] 65 mL/min/{1.73_m2} Normal >60 [facility] Comment on above: Order Comment: 510.1 Result Comment: Non- GFR Calc Performed By: #### L 500.2500, L100.0500 #### [facility] [address] [place], [address] Glucose [Mass/Vol] 118 mg/dL High 74-106 [facility] Comment on above: Order Comment: 510.1 Result Comment: Fast ing Glucose result from 100 to 125 mg/dL suggests IMPAIRED HOMEOSTASIS per A.D.A. criteria. Performed By: #### L 500.2500, L100.0500 #### [facility] [address] [place], [address] Potassium [Moles/Vol] 4.0 mmol/L Normal 3.5-5.1 [facility] Comment on above: Order Comment: 510.1 Performed By: #### L 500.2500, L100.0500 #### [facility] [address] [place], [address] Sodium [Moles/Vol] 139 mmol/L Normal 136-145 [facility] Comment on above: Order Comment: 510.1 Performed By: #### L 500.2500, L100.0500 #### [facility] [address] [place], [address] Urea nitrogen [Mass/Vol] 21 mg/dL High 7-18 [facility] Comment on above: Order Comment: 510.1 Performed By: #### L 500.2500, L100.0500 #### [facility] [address] [place], [address] CBC-Complete Blood Cnt No Di ffon 03-21-2024 Erythrocyte distribution width (RBC) [Ratio] 16.2 % High 11.6-14.6 [facility] Comment on above: Order Comment: 510.1 Performed By: #### L 500.2500, L100.0500 #### [facility] [address] [place], [address] Hematocrit (Bld) [Volume fraction] 37.8 % Normal 37-47 [facility] Comment on above: Order Comment: 510.1 Performed By: #### L 500.2500, L100.0500 #### [facility] [address] [place], [address] Hemoglobin (Bld) [Mass/Vol] 12.2 g/dL Normal 12.0-15.0 [facility] Comment on above: Order Comment: 510.1 Performed By: #### L 500.2500, L100.0500 #### [facility] [address] [place], [address] MCH (RBC) [Entitic mass] 29.0 pg Normal 27.0-32.0 [facility] Comment on above: Order Comment: 510.1 Performed By: #### L 500.2500, L100.0500 #### [facility] [address] [place], [address] MCHC (RBC) [Mass/Vol] 32.3 g/dL Normal 32-36 [facility] Comment on above: Order Comment: 510.1 Performed By: #### L 500.2500, L100.0500 #### [facility] [address] [place], [address] MCV (RBC) [Entitic vol] 90.0 fL Normal 81-99 [facility] Comment on above: Order Comment: 510.1 Performed By: #### L 500.2500, L100.0500 #### [facility] [address] [place], [address] Platelet mean volume (Bld) [Entitic vol] 10.4 fL Normal 6.2-12.0 [facility] Comment on above: Order Comment: 510.1 Performed By: #### L 500.2500, L100.0500 #### [facility] [address] [place], [address] Platelets (Bld) [#/Vol] 297 10*3/uL Normal 150-450 [facility] Comment on above: Order Comment: 510.1 Performed By: #### L 500.2500, L100.0500 #### [facility] [address] [place], [address] RBC (Bld) [#/Vol] 4.20 10*6/uL Normal 4.2-5.4 [facility] Comment on above: Order Comment: 510.1 Performed By: #### L 500.2500, L100.0500 #### [facility] [address] [place], [address] RDW SD 52.7 fl High 35.1-43.9 [facility] Comment on above: Order Comment: 510.1 Performed By: #### L 500.2500, L100.0500 #### [facility] [address] [place], [address] WBC (Bld) [#/Vol] 6.7 10*3/uL Normal 4.4-11.0 [facility] Comment on above: Order Comment: 510.1 Performed By: #### L 500.2500, L100.0500 #### [facility] [address] [place], [address] EMG(NEURO/NI)on 03-07-2024 Results can be seen in attached scanned documents. If you are a patient reviewing this test result, call the doctor who ordered the test with any questions. [facility] Basic Metabolic Profile (BMP )on 02-22-2024 BUN/CRE 22.0 RATIO High 10-20 [facility] Comment on above: Order Comment: 514-1 Performed By: #### L 100.0500, L500.2500 #### [facility] [address] [place], [address] CA,Total 9.1 mg/dL Normal 8.5-10.1 [facility] Comment on above: Order Comment: 514-1 Performed By: #### L 100.0500, L500.2500 #### [facility] [address] [place], [address] Chloride [Moles/Vol] 111 mmol/L High 98-107 [facility] Comment on above: Order Comment: 514-1 Performed By: #### L 100.0500, L500.2500 #### [facility] [address] [place], [address] CO2 [Moles/Vol] 26.0 mmol/L Normal 21.0-32.0 [facility] Comment on above: Order Comment: 514-1 Performed By: #### L 100.0500, L500.2500 #### [facility] [address] [place], [address] Creatinine [Mass/Vol] 0.86 mg/dL Normal 0.55-1.02 [facility] Comment on above: Order Comment: 514- Result Comment: The validity of the calculated GFR GFRAA in patients over 70 years has not been determined. Clinical correlation is essential. Performed By: #### L 100.0500, L500.2500 #### [facility] [address] [place], [address] EST GFR - AA 82 mL/min Normal >60 [facility] Comment on above: Order Comment: 514- Result Comment: Afri can Hungarian GFR Calc Performed By: #### L 100.0500, L500.2500 #### [facility] [address] [place], [address] GAP 4 Low 5-15 [facility] Comment on above: Order Comment: 514-1 Performed By: #### L 100.0500, L500.2500 #### [facility] [address] [place], [address] GFR/1.73 sq M.predicted among non-blacks MDRD (S/P/Bld) [Vol rate/Area] 68 mL/min/{1.73_m2} Normal >60 [facility] Comment on above: Order Comment: 514- Result Comment: Non- GFR Calc Performed By: #### L 100.0500, L500.2500 #### [facility] [address] [place], [address] Glucose [Mass/Vol] 117 mg/dL High 74-106 [facility] Comment on above: Order Comment: 514-1 Result Comment: Fast ing Glucose result from 100 to 125 mg/dL suggests IMPAIRED HOMEOSTASIS per A.D.A. criteria. Performed By: #### L 100.0500, L500.2500 #### [facility] [address] [place], [address] Potassium [Moles/Vol] 4.0 mmol/L Normal 3.5-5.1 [facility] Comment on above: Order Comment: 514-1 Performed By: #### L 100.0500, L500.2500 #### [facility] [address] [place], [address] Sodium [Moles/Vol] 141 mmol/L Normal 136-145 [facility] Comment on above: Order Comment: 514-1 Performed By: #### L 100.0500, L500.2500 #### [facility] [address] [place], [address] Urea nitrogen [Mass/Vol] 19 mg/dL High 7-18 [facility] Comment on above: Order Comment: 514-1 Performed By: #### L 100.0500, L500.2500 #### [facility] [address] [place], [address] CBC-Complete Blood Cnt No Di ffon 02-22-2024 Erythrocyte distribution width (RBC) [Ratio] 16.4 % High 11.6-14.6 [facility] Comment on above: Performed By: #### L 100.0500, L500.2500 #### [facility] [address] [place], [address] Hematocrit (Bld) [Volume fraction] 37.8 % Normal 37-47 [facility] Comment on above: Performed By: #### L 100.0500, L500.2500 #### [facility] [address] [place], [address] Hemoglobin (Bld) [Mass/Vol] 11.8 g/dL Low 12.0-15.0 [facility] Comment on above: Performed By: #### L 100.0500, L500.2500 #### [facility] [address] [place], [address] MCH (RBC) [Entitic mass] 29.0 pg Normal 27.0-32.0 [facility] Comment on above: Performed By: #### L 100.0500, L500.2500 #### [facility] [address] [place], [address] MCHC (RBC) [Mass/Vol] 31.2 g/dL Low 32-36 [facility] Comment on above: Performed By: #### L 100.0500, L500.2500 #### [facility] [address] [place], [address] MCV (RBC) [Entitic vol] 92.9 fL Normal 81-99 [facility] Comment on above: Performed By: #### L 100.0500, L500.2500 #### [facility] [address] [place], [address] Platelet mean volume (Bld) [Entitic vol] 10.5 fL Normal 6.2-12.0 [facility] Comment on above: Performed By: #### L 100.0500, L500.2500 #### [facility] [address] [place], [address] Platelets (Bld) [#/Vol] 274 10*3/uL Normal 150-450 [facility] Comment on above: Performed By: #### L 100.0500, L500.2500 #### [facility] [address] [place], [address] RBC (Bld) [#/Vol] 4.07 10*6/uL Low 4.2-5.4 [facility] Comment on above: Performed By: #### L 100.0500, L500.2500 #### [facility] [address] [place], [address] RDW SD 55.4 fl High 35.1-43.9 [facility] Comment on above: Performed By: #### L 100.0500, L500.2500 #### [facility] [address] [place], [address] WBC (Bld) [#/Vol] 6.4 10*3/uL Normal 4.4-11.0 [facility] Comment on above: Performed By: #### L 100.0500, L500.2500 #### [facility] [address] [place], [address] [facility] KAMILAH MCKEON ([id number]) 1945 F Date Time Provider Department 12/03/23 [facility] During your visit today, we recorded the following information about you: Laz Martínez 12/03/2023 1:24 PM Signed Spoke to Sandra at [facility] living 12/03/23. Xarelto to be held for [...] Encounter Status:Closed by LAZ MARTÍNEZ on 12/03/23 [facility] CNOVradha 11-29-2023 CNOV Office Visit (ORMDNA) ---- KAMILAH MCKEON ([id number]) 1945 F Date Time Provider Department 11/29/23 10:30 AM ENEDINA CANCHOLA During your visit today, we recorded the following information about you: Enedina Canchola PA-C 11/29/2023 11:31 AM Signed Enedina Canchola PA-C Established Patient Department of Orthopaedics [facility] [address] [address] Dept: [phone] November 29, 2023 SUBJECTIVE: CHIEF COMPLAINT: Follow [...] and second digit. 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 Normal [facility] Goyal Basophil percentageOrdered B y: Gerda Wilks on 11-02-2023 Chloride [Moles/Vol] 108 mmol/L 98-107 [facility] Glucose [Mass/Vol] 92 mg/dL 74-106 [facility] Hemoglobin (Bld) [Mass/Vol] 11.2 g/dL 12.0-15.0 [facility] Potassium [Moles/Vol] 3.6 mmol/L 3.5-5.1 [facility] Sodium [Moles/Vol] 139 mmol/L 136-145 [facility] WBC (Bld) [#/Vol] 8.7 10*3/uL 4.4-11.0 [facility] Determination of erythrocyte mean corpuscular volume (MCV)Ordered By: Gedra Wilks on 11-02-2023 MCV (RBC) [Entitic vol] 94.1 fL 81-99 [facility] Erythrocyte distribution wid th ratioOrdered By: Gerda Wilks on 11-02-2023 Erythrocyte distribution width (RBC) [Ratio] 14.9 % 11.6-14.6 [facility] Erythrocyte distribution wid th standard deviationOrdered By: Gerda Wilks on 11-02-2023 Erythrocyte distribution width (RBC) [Entitic vol] 51.5 fL 35.1-43.9 [facility] Hematocrit Auto (Bld) [Volum e fraction]Ordered By: Gerda Wilks on 11-02-2023 Hematocrit (Bld) [Volume fraction] 36.5 % 37-47 [facility] [facility] - Chemistry and C hemistry - challengeOrdered By: Gerda Wilks on 11-02-2023 CO2 [Moles/Vol] 24.0 mmol/L 21.0-32.0 [facility] Urea nitrogen/Creatinine [Mass ratio] 32.5 mg/mg 10-20 [facility] - Hematology and Cell countsOrdered By: Gerda Wilks on 11-02-2023 MCH (RBC) [Entitic mass] 28.9 pg 27.0-32.0 [facility] MCHC (RBC) [Mass/Vol] 30.7 g/dL 32-36 [facility] Platelet mean volume (Bld) [Entitic vol] 10.6 fL 6.2-12.0 [facility] Platelets (Bld) [#/Vol] 277 10*3/uL 150-450 [facility] No Panel InformationOrdered By: Gerda Wilks on 11-02-2023 Estimated GFR (MDRD) Amer 70 mL/min >60 [facility] Comment on above: GFR Calc Estimated GFR (MDRD) Non-Af Amer 58 mL/min >60 [facility] Comment on above: Non- GFR Calc RBC Auto (Bld) [#/Vol]Ordere d By: Gerda Wilks on 11-02-2023 RBC (Bld) [#/Vol] 3.88 10*6/uL 4.2-5.4 [facility] Serum or plasma calcium chay urement (mass/volume)Ordered By: Gerda Wilks on 11-02-2023 Calcium [Mass/Vol] 8.2 mg/dL 8.5-10.1 [facility] Serum or plasma creatinine m easurement (mass/volume)Ordered By: Gerda Wilks on 11-02-2023 Creatinine [Mass/Vol] 0.98 mg/dL 0.55-1.02 [facility] Comment on above: The validity of the calculated GFR & GFRAA in patients over 70 years has not been determined. Clinical correlation is essential. Serum or plasma urea nitroge n measurement (mass/volume)Ordered By: Gerda Wilks on 11-02-2023 Urea nitrogen [Mass/Vol] 32 mg/dL 7-18 [facility] Thin prep Papanicolaou smear with manual screeningOrdered By: Gerda Wilks on 11-02-2023 Thin prep Papanicolaou smear with manual screening 7 5-15 [facility] Basophil percentageOrdered B y: Kurt Mari on 11-01-2023 Bilirubin [Mass/Vol] 0.30 mg/dL 0.20-1.00 [facility] Comment on above: For patients on eltr ombopag therapy, use of Dimension [place] TBIL is not recommended. Chloride [Moles/Vol] 108 mmol/L 98-107 [facility] Glucose [Mass/Vol] 98 mg/dL 74-106 [facility] Hemoglobin (Bld) [Mass/Vol] 11.1 g/dL 12.0-15.0 [facility] Potassium [Moles/Vol] 3.6 mmol/L 3.5-5.1 [facility] Protein [Mass/Vol] 7.1 g/dL 6.4-8.2 [facility] Sodium [Moles/Vol] 140 mmol/L 136-145 [facility] WBC (Bld) [#/Vol] 7.1 10*3/uL 4.4-11.0 [facility] Determination of erythrocyte mean corpuscular volume (MCV)Ordered By: Kurt Mari on 11-01-2023 MCV (RBC) [Entitic vol] 91.4 fL 81-99 [facility] Erythrocyte distribution wid th ratioOrdered By: Kurt Mari on 11-01-2023 Erythrocyte distribution width (RBC) [Ratio] 14.7 % 11.6-14.6 [facility] Erythrocyte distribution wid th standard deviationOrdered By: Kurt Mari on 11-01-2023 Erythrocyte distribution width (RBC) [Entitic vol] 49.1 fL 35.1-43.9 [facility] Hematocrit Auto (Bld) [Volum e fraction]Ordered By: Kurt Mari on 11-01-2023 Hematocrit (Bld) [Volume fraction] 34.9 % 37-47 [facility] - Chemistry and C hemistry - challengeOrdered By: Kurt Mari on 11-01-2023 Albumin/Globulin [Mass ratio] 0.6 {ratio} 0.9-2.4 [facility] ALP [Catalytic activity/Vol] 49 U/L 45-117 [facility] ALT [Catalytic activity/Vol] 15 U/L 13-56 [facility] CO2 [Moles/Vol] 23.0 mmol/L 21.0-32.0 [facility] Globulin (S) [Mass/Vol] 4.4 g/dL 2.2-4.2 [facility] Urea nitrogen/Creatinine [Mass ratio] 36.6 mg/mg 10-20 [facility] - Hematology and Cell countsOrdered By: Kurt Mari on 11-01-2023 MCH (RBC) [Entitic mass] 29.1 pg 27.0-32.0 [facility] MCHC (RBC) [Mass/Vol] 31.8 g/dL 32-36 [facility] Platelet mean volume (Bld) [Entitic vol] 10.7 fL 6.2-12.0 [facility] Platelets (Bld) [#/Vol] 233 10*3/uL 150-450 [facility] No Panel InformationOrdered By: Kurt Mrai on 11-01-2023 Estimated GFR (MDRD) Amer 84 mL/min >60 [facility] Comment on above: GFR Calc Estimated GFR (MDRD) Non-Af Amer 69 mL/min >60 [facility] Comment on above: Non- GFR Calc RBC Auto (Bld) [#/Vol]Ordere d By: Kurt Mari on 11-01-2023 RBC (Bld) [#/Vol] 3.82 10*6/uL 4.2-5.4 [facility] Serum or plasma calcium chay urement (mass/volume)Ordered By: Kurt Mari on 11-01-2023 Calcium [Mass/Vol] 8.6 mg/dL 8.5-10.1 [facility] Serum or plasma creatinine m easurement (mass/volume)Ordered By: Kurt Mari on 11-01-2023 Creatinine [Mass/Vol] 0.85 mg/dL 0.55-1.02 [facility] Comment on above: The validity of the calculated GFR & GFRAA in patients over 70 years has not been determined. Clinical correlation is essential. Serum or plasma urea nitroge n measurement (mass/volume)Ordered By: Kurt Mari on 11-01-2023 Urea nitrogen [Mass/Vol] 31 mg/dL 7-18 [facility] Thin prep Papanicolaou smear with manual screeningOrdered By: Kurt Mari on 11-01-2023 Thin prep Papanicolaou smear with manual screening 2.7 g/dL 3.2-5.0 [facility] Thin prep Papanicolaou smear with manual screening 14 U/L 15-37 [facility] Thin prep Papanicolaou smear with manual screening 9 5-15 [facility] Basophil percentageOrdered B y: Gerda Wilks on 10-15-2023 Chloride [Moles/Vol] 111 mmol/L 98-107 [facility] Glucose [Mass/Vol] 123 mg/dL 74-106 [facility] Comment on above: Fasting Glucose resu lt from 100 to 125 mg/dL suggests IMPAIRED HOMEOSTASIS per A.D.A. criteria. Potassium [Moles/Vol] 4.0 mmol/L 3.5-5.1 [facility] Sodium [Moles/Vol] 141 mmol/L 136-145 [facility] - Chemistry and C hemistry - challengeOrdered By: Gerda Wilks on 10-15-2023 CO2 [Moles/Vol] 26.0 mmol/L 21.0-32.0 [facility] Magnesium [Mass/Vol] 2.3 mg/dL 1.6-2.6 [facility] Urea nitrogen/Creatinine [Mass ratio] 36.5 mg/mg 10-20 [facility] No Panel InformationOrdered By: Gerda Wilks on 10-15-2023 Estimated GFR (MDRD) Amer 81 mL/min >60 [facility] Comment on above: GFR Calc Estimated GFR (MDRD) Non-Af Amer 67 mL/min >60 [facility] Comment on above: Non- GFR Calc Serum or plasma calcium chay urement (mass/volume)Ordered By: Gerda Wilks on 10-15-2023 Calcium [Mass/Vol] 9.5 mg/dL 8.5-10.1 [facility] Serum or plasma creatinine m easurement (mass/volume)Ordered By: Gerda Wilks on 10-15-2023 Creatinine [Mass/Vol] 0.88 mg/dL 0.55-1.02 [facility] Comment on above: The validity of the calculated GFR & GFRAA in patients over 70 years has not been determined. Clinical correlation is essential. Serum or plasma urea nitroge n measurement (mass/volume)Ordered By: Gerda Wilks on 10-15-2023 Urea nitrogen [Mass/Vol] 32 mg/dL 7-18 [facility] Thin prep Papanicolaou smear with manual screeningOrdered By: Gerda Wilks on 10-15-2023 Thin prep Papanicolaou smear with manual screening 4 5-15 [facility] Basophil percentageOrdered B y: Gerda Wilks on 10-05-2023 Chloride [Moles/Vol] 111 mmol/L 98-107 [facility] Glucose [Mass/Vol] 119 mg/dL 74-106 [facility] Comment on above: Fasting Glucose resu lt from 100 to 125 mg/dL suggests IMPAIRED HOMEOSTASIS per A.D.A. criteria. Hemoglobin (Bld) [Mass/Vol] 11.6 g/dL 12.0-15.0 [facility] Potassium [Moles/Vol] 4.2 mmol/L 3.5-5.1 [facility] Sodium [Moles/Vol] 143 mmol/L 136-145 [facility] WBC (Bld) [#/Vol] 8.0 10*3/uL 4.4-11.0 [facility] Determination of erythrocyte mean corpuscular volume (MCV)Ordered By: Gerda Wilks on 10-05-2023 MCV (RBC) [Entitic vol] 92.2 fL 81-99 [facility] Erythrocyte distribution wid th ratioOrdered By: Gerda Wilks on 10-05-2023 Erythrocyte distribution width (RBC) [Ratio] 15.1 % 11.6-14.6 [facility] Erythrocyte distribution wid th standard deviationOrdered By: Gerda Wilks on 10-05-2023 Erythrocyte distribution width (RBC) [Entitic vol] 51.2 fL 35.1-43.9 [facility] Hematocrit Auto (Bld) [Volum e fraction]Ordered By: Gerda Wilks on 10-05-2023 Hematocrit (Bld) [Volume fraction] 37.6 % 37-47 [facility] - Chemistry and C hemistry - challengeOrdered By: Gerda Wilks on 10-05-2023 CO2 [Moles/Vol] 28.0 mmol/L 21.0-32.0 [facility] Urea nitrogen/Creatinine [Mass ratio] 37.4 mg/mg 10-20 [facility] - Hematology and Cell countsOrdered By: Gerda Wilks on 10-05-2023 MCH (RBC) [Entitic mass] 28.4 pg 27.0-32.0 [facility] MCHC (RBC) [Mass/Vol] 30.9 g/dL 32-36 [facility] Platelet mean volume (Bld) [Entitic vol] 10.5 fL 6.2-12.0 [facility] Platelets (Bld) [#/Vol] 247 10*3/uL 150-450 [facility] No Panel InformationOrdered By: Gerda Wilks on 10-05-2023 Estimated GFR (MDRD) Amer 97 mL/min >60 [facility] Comment on above: GFR Calc Estimated GFR (MDRD) Non-Af Amer 80 mL/min >60 [facility] Comment on above: Non- GFR Calc RBC Auto (Bld) [#/Vol]Ordere d By: Gerda Wilks on 10-05-2023 RBC (Bld) [#/Vol] 4.08 10*6/uL 4.2-5.4 [facility] Serum or plasma calcium chay urement (mass/volume)Ordered By: Gerda Wilks on 10-05-2023 Calcium [Mass/Vol] 9.1 mg/dL 8.5-10.1 [facility] Serum or plasma creatinine m easurement (mass/volume)Ordered By: Gerda Wilks on 10-05-2023 Creatinine [Mass/Vol] 0.75 mg/dL 0.55-1.02 [facility] Comment on above: The validity of the calculated GFR & GFRAA in patients over 70 years has not been determined. Clinical correlation is essential. Serum or plasma urea nitroge n measurement (mass/volume)Ordered By: Gerda Wilks on 10-05-2023 Urea nitrogen [Mass/Vol] 28 mg/dL 7-18 [facility] Thin prep Papanicolaou smear with manual screeningOrdered By: Gerda Wilks on 10-05-2023 Thin prep Papanicolaou smear with manual screening 4 5-15 [facility] Basophil percentageOrdered B y: Gerda Wilks on 09-07-2023 Chloride [Moles/Vol] 109 mmol/L 98-107 [facility] Glucose [Mass/Vol] 113 mg/dL 74-106 [facility] Comment on above: Fasting Glucose resu lt from 100 to 125 mg/dL suggests IMPAIRED HOMEOSTASIS per A.D.A. criteria. Potassium [Moles/Vol] 4.2 mmol/L 3.5-5.1 [facility] Sodium [Moles/Vol] 142 mmol/L 136-145 [facility] WBC (Bld) [#/Vol] 7.9 10*3/uL 4.4-11.0 [facility] Blood erythrocytes count (nu mber/volume)Ordered By: Gerda Wilks on 09-07-2023 RBC (Bld) [#/Vol] 4.36 10*6/uL 4.2-5.4 [facility] Blood hemoglobin measurement (mass/volume)Ordered By: Gerda Wilks on 09-07-2023 Hemoglobin (Bld) [Mass/Vol] 12.7 g/dL 12.0-15.0 [facility] Blood platelet mean volumeOr dered By: Gerda Wilks on 09-07-2023 Platelet mean volume (Bld) [Entitic vol] 10.5 fL 6.2-12.0 [facility] Determination of erythrocyte mean corpuscular volume (MCV)Ordered By: Gerda Wilks on 09-07-2023 MCV (RBC) [Entitic vol] 92.2 fL 81-99 [facility] Hematocrit Auto (Bld) [Volum e fraction]Ordered By: Gerda Wilks on 09-07-2023 Hematocrit (Bld) [Volume fraction] 40.2 % 37-47 [facility] - Chemistry and C hemistry - challengeOrdered By: Gerda Wilks on 09-07-2023 CO2 [Moles/Vol] 27.0 mmol/L 21.0-32.0 [facility] Urea nitrogen/Creatinine [Mass ratio] 41.4 mg/mg 10-20 [facility] - Hematology and Cell countsOrdered By: Gerda Wilks on 09-07-2023 Erythrocyte distribution width (RBC) [Entitic vol] 50.9 fL 35.1-43.9 [facility] Erythrocyte distribution width (RBC) [Ratio] 15.1 % 11.6-14.6 [facility] MCH (RBC) [Entitic mass] 29.1 pg 27.0-32.0 [facility] MCHC Auto (RBC) [Mass/Vol]Or dered By: Gerda Wilks on 09-07-2023 MCHC (RBC) [Mass/Vol] 31.6 g/dL 32-36 [facility] No Panel InformationOrdered By: Gerda Wilks on 09-07-2023 Estimated GFR (MDRD) Amer 81 mL/min >60 [facility] Comment on above: GFR Calc Estimated GFR (MDRD) Non-Af Amer 67 mL/min >60 [facility] Comment on above: Non- GFR Calc Platelets bldOrdered By: Gustavo Wilks on 09-07-2023 Platelets (Bld) [#/Vol] 266 10*3/uL 150-450 [facility] Serum or plasma calcium chay urement (mass/volume)Ordered By: Gerda Wilks on 09-07-2023 Calcium [Mass/Vol] 9.6 mg/dL 8.5-10.1 [facility] Serum or plasma creatinine m easurement (mass/volume)Ordered By: Gerda Wilks on 09-07-2023 Creatinine [Mass/Vol] 0.87 mg/dL 0.55-1.02 [facility] Comment on above: The validity of the calculated GFR & GFRAA in patients over 70 years has not been determined. Clinical correlation is essential. Serum or plasma urea nitroge n measurement (mass/volume)Ordered By: Gerda Wilks on 09-07-2023 Urea nitrogen [Mass/Vol] 36 mg/dL 7-18 [facility] Thin prep Papanicolaou smear with manual screeningOrdered By: Gerda Wilks on 09-07-2023 Thin prep Papanicolaou smear with manual screening 6 5-15 [facility] Absolute lymphocyte countOrd ered By: Jose Martin Drake on 09-06-2023 Lymphocytes Auto (Unsp spec) [#/Vol] 1.74 10*3/uL 0.83-4.51 [facility] Basophil percentageOrdered B y: Jose Martin Drake on 09-06-2023 Basophils/100 WBC (Bld) 1.0 % 0-1 [facility] Eosinophils/100 WBC (Bld) 3.9 % 0-5 [facility] Neutrophils (Bld) [#/Vol] 5.2 10*3/uL 2.0-7.7 [facility] Neutrophils/100 WBC (Bld) 65.5 % 47-70 [facility] WBC (Bld) [#/Vol] 8.0 10*3/uL 4.4-11.0 [facility] Blood erythrocytes count (nu mber/volume)Ordered By: Jose Martin Drake on 09-06-2023 RBC (Bld) [#/Vol] 4.53 10*6/uL 4.2-5.4 [facility] Blood hemoglobin measurement (mass/volume)Ordered By: Jose Martin Drake on 09-06-2023 Hemoglobin (Bld) [Mass/Vol] 13.2 g/dL 12.0-15.0 [facility] Blood lymphocytes/100 leukoc ytesOrdered By: Jose Martin Drake on 09-06-2023 Lymphocytes/100 WBC (Bld) 21.8 % 19-41 [facility] Blood monocytes/100 leukocyt esOrdered By: Jose Martin Drake on 09-06-2023 Monocytes/100 WBC (Bld) 6.9 % 0-10 [facility] Blood platelet mean volumeOr dered By: Jose Martin Drake on 09-06-2023 Platelet mean volume (Bld) [Entitic vol] 10.7 fL 6.2-12.0 [facility] Determination of erythrocyte mean corpuscular volume (MCV)Ordered By: Jose Martin Drake on 09-06-2023 MCV (RBC) [Entitic vol] 92.3 fL 81-99 [facility] Hematocrit Auto (Bld) [Volum e fraction]Ordered By: Jose Martin Drake on 09-06-2023 Hematocrit (Bld) [Volume fraction] 41.8 % 37-47 [facility] - Chemistry and C hemistry - challengeOrdered By: Jose Martin Drake on 09-06-2023 Cobalamin (Vitamin B12) [Mass/Vol] 563 pg/mL 211-911 [facility] - Hematology and Cell countsOrdered By: Jose Martin Drake on 09-06-2023 Erythrocyte distribution width (RBC) [Entitic vol] 51.3 fL 35.1-43.9 [facility] Erythrocyte distribution width (RBC) [Ratio] 15.1 % 11.6-14.6 [facility] Immature granulocytes/100 WBC (Bld) 0.900 % 0.0-0.9 [facility] Comment on above: IG% - Immature Granu locytes (promyelocytes, myelocytes and metamyelocytes) > 1% indicates that a LEFT SHIFT is Present. MCH (RBC) [Entitic mass] 29.1 pg 27.0-32.0 [facility] Nucleated RBC/100 WBC (Bld) [Ratio] 0 % 0-5 [facility] MCHC Auto (RBC) [Mass/Vol]Or dered By: Jose Martin Drake on 09-06-2023 MCHC (RBC) [Mass/Vol] 31.6 g/dL 32-36 [facility] No Panel InformationOrdered By: Jose Martin Drake on 09-06-2023 Vitamin D 25-Hydroxy 57.1 ng/mL [facility] Comment on above: Vitamin D 25(OH) Sta tus Range Deficiency <20 ng/mL (50nmol/L) Insufficiency 20 - 30 ng/mL (50 - 75 nmol/L) Sufficiency 30 - 100 ng/mL (75 - 250 nmol/L) Toxicity >100 ng/mL (>250 nmol/L) Platelets bldOrdered By: Dav Drake on 09-06-2023 Platelets (Bld) [#/Vol] 284 10*3/uL 150-450 [facility] Serum or plasma calcitriol m easurement (mass/volume)Ordered By: Jose Martin Drake on 09-06-2023 1,25-dihydroxyvitamin D3 [Mass/Vol] 22.3 pg/mL 24.8-81.5 [facility] Comment on above: Performed at: [facility] [address] [id number] Director: Estuardo Alegria MD, Phone: [phone] Serum or plasma ferritin riley surement (mass/volume)Ordered By: Jose Martin Drake on 09-06-2023 Ferritin [Mass/Vol] 30 ng/mL 8-252 [facility] Serum or plasma zinc measure ment (mass/volume)Ordered By: Jose Martin Drake on 09-06-2023 Zinc [Mass/Vol] 63 ug/dL 44-115 [facility] Comment on above: Detection Limit = 5P erformed at: [facility] [address] [id number] Director: Estuardo Alegria MD, Phone: [phone] Basophil percentageOrdered B y: Gerda Wilks on 08-08-2023 Chloride [Moles/Vol] 109 mmol/L 98-107 [facility] Glucose [Mass/Vol] 145 mg/dL 74-106 [facility] Comment on above: Fasting Glucose resu lt greater than or equal to 126 mg/dL suggests DIABETES MELLITUS per A.D.A. criteria. Potassium [Moles/Vol] 3.9 mmol/L 3.5-5.1 [facility] Sodium [Moles/Vol] 140 mmol/L 136-145 [facility] WBC (Bld) [#/Vol] 6.9 10*3/uL 4.4-11.0 [facility] Blood erythrocytes count (nu mber/volume)Ordered By: Gerda Wilks on 08-08-2023 RBC (Bld) [#/Vol] 4.46 10*6/uL 4.2-5.4 [facility] Blood hemoglobin measurement (mass/volume)Ordered By: Gerda Wilks on 08-08-2023 Hemoglobin (Bld) [Mass/Vol] 12.9 g/dL 12.0-15.0 [facility] Blood platelet mean volumeOr dered By: Gerda Wilks on 08-08-2023 Platelet mean volume (Bld) [Entitic vol] 10.7 fL 6.2-12.0 [facility] Determination of erythrocyte mean corpuscular volume (MCV)Ordered By: Gerda Wilks on 08-08-2023 MCV (RBC) [Entitic vol] 93.0 fL 81-99 [facility] Hematocrit Auto (Bld) [Volum e fraction]Ordered By: Gerda Wilks on 08-08-2023 Hematocrit (Bld) [Volume fraction] 41.5 % 37-47 [facility] Iron measurement (mass/mass) Ordered By: Gerda Wilks on 08-08-2023 Iron (Unsp spec) [Mass/Mass] 42 ug/dL 50-170 [facility] - Chemistry and C hemistry - challengeOrdered By: Gerda Wilks on 08-08-2023 CO2 [Moles/Vol] 27.0 mmol/L 21.0-32.0 [facility] Urea nitrogen/Creatinine [Mass ratio] 32.4 mg/mg 10-20 [facility] - Hematology and Cell countsOrdered By: Gerda Wilks on 08-08-2023 Erythrocyte distribution width (RBC) [Entitic vol] 52.4 fL 35.1-43.9 [facility] Erythrocyte distribution width (RBC) [Ratio] 15.3 % 11.6-14.6 [facility] MCH (RBC) [Entitic mass] 28.9 pg 27.0-32.0 [facility] MCHC Auto (RBC) [Mass/Vol]Or dered By: Gerda Wilks on 08-08-2023 MCHC (RBC) [Mass/Vol] 31.1 g/dL 32-36 [facility] No Panel InformationOrdered By: Gerda Wilks on 08-08-2023 Estimated GFR (MDRD) Amer 68 mL/min >60 [facility] Comment on above: GFR Calc Estimated GFR (MDRD) Non-Af Amer 56 mL/min >60 [facility] Comment on above: Non- GFR Calc Total Iron Binding Capacity 325 ug/dL 250-450 [facility] Platelets bldOrdered By: Gustavo Wilks on 08-08-2023 Platelets (Bld) [#/Vol] 247 10*3/uL 150-450 [facility] Serum or plasma calcium chay urement (mass/volume)Ordered By: Gerda Wilks on 08-08-2023 Calcium [Mass/Vol] 9.4 mg/dL 8.5-10.1 [facility] Serum or plasma creatinine m easurement (mass/volume)Ordered By: Gerda Wilks on 08-08-2023 Creatinine [Mass/Vol] 1.02 mg/dL 0.55-1.02 [facility] Comment on above: The validity of the calculated GFR & GFRAA in patients over 70 years has not been determined. Clinical correlation is essential. Serum or plasma iron saturat ion measurement (mass fraction)Ordered By: Gerdacarlos Wilks on 08-08-2023 Iron saturation [Mass fraction] 12.9 % 15.0-55.0 [facility] Serum or plasma urea nitroge n measurement (mass/volume)Ordered By: Gerdacarlos Wilks on 08-08-2023 Urea nitrogen [Mass/Vol] 33 mg/dL 7-18 [facility] Thin prep Papanicolaou smear with manual screeningOrdered By: Gerdacarlos Wilks on 08-08-2023 Thin prep Papanicolaou smear with manual screening 4 5-15 [facility] CNOVon 07-23-2023 CNOV Office Visit (ORMDNA) ---- KAMILAH MCKEON ([id number]) 1945 F Date Time Provider Department 07/23/23 2:00 PM ENEDINA CANCHOLA During your visit today, we recorded the following information about you: Enedina Canchola PA-C 07/24/2023 2:47 PM Signed Enedina Canchola PA-C Department of Orthopaedics [facility] [address] [address] Dept: [phone] July 23, 2023 SUBJECTIVE: CHIEF COMPLAINT: Pain [...] and 3rd digit Phalen's: postive Tinel's: negative Hub Bander strength: 5/5 IMAGIN07/23/2023 4:08 PM - Radiology, O[place] In Impression IMPRESSION: Findings as discussed in results portion of report [employer]: PSCB Transcribe Date/Time: Jul 23 2023 4:04P Dictated by : WALTER BRODY DO This examination was interpreted and the report reviewed and electronically signed by: WALTER BRODY DO on Jul 23 2023 4:06PM EST Results-Findings * * *Final Report* * * DATE OF EXAM: Jul 23 2023 1:23PM [facility]271 - XR WRIST 3V PA/LAT/OBL RT / PROCEDURE REASON: [id number] * * * * Physician Interpretation * [...] Patient agre (more content not included)... Normal [facility] XR WRIST 3V PA/LAT/OBL RTon 07-23-2023 XR WRIST 3V PA/LAT/OBL RT * * *Final Report* * * DATE OF EXAM: Jul 23 2023 1:23PM [facility] 5271 - XR WRIST 3V PA/LAT/OBL RT / PROCEDURE REASON: [id number] * * * * Physician Interpretation * [...] as discussed in results portion of report [employer]: GERMAINE Transcribe Date/Time: Jul 23 2023 4:04P Dictated by : WALTER BRODY DO This examination was interpreted and the report reviewed and electronically signed by: WALTER BRODY DO on Jul 23 2023 4:06PM EST [id number] [facility] XR Wrist - right PA and Late ral and Obliqueon 07-23-2023 IMPRESSION: Findings as discussed in results portion of report [employer]: PSCDebbie Transcribe Date/Time: Jul 23 2023 4:04P Dictated by : WALTER BRODY DO This examination was interpreted and the report reviewed and electronically signed by: WALTER BRODY DO on Jul 23 2023 4:06PM EST [facility] * * *Final Report* * * DATE OF EXAM: Jul 23 2023 1:23PM [facility] 5271 - XR WRIST 3V PA/LAT/OBL RT / PROCEDURE REASON: [id number] * * * * Physician Interpretation * [...] bones No fractures or dislocations are seen. [facility] Provider, [facility] [place] - 07/23/2023 * * *Final Report* * * DATE OF EXAM: Jul 23 2023 1:23PM [facility] 5271 - XR WRIST 3V PA/LAT/OBL RT / PROCEDURE REASON: [id number] * * * * Physician Interpretation * [...] as discussed in results portion of report [employer]: GERMAINE Transcribe Date/Time: Jul 23 2023 4:04P Dictated by : WALTER BRODY DO This examination was interpreted and the report reviewed and electronically signed by: WALTER BRODY DO on Jul 23 2023 4:06PM [facility] Radiology Study observation (narrative) [facility] Wrist - right PA and Late ral and ObliqueOrdered By: Ccf Provider on 07-23-2023 [facility] Basophil percentageOrdered B y: Rizwan Florentino on 07-12-2023 Chloride [Moles/Vol] 110 mmol/L 98-107 [facility] Glucose [Mass/Vol] 117 mg/dL 74-106 [facility] Comment on above: Fasting Glucose resu lt from 100 to 125 mg/dL suggests IMPAIRED HOMEOSTASIS per A.D.A. criteria. Potassium [Moles/Vol] 4.2 mmol/L 3.5-5.1 [facility] Sodium [Moles/Vol] 142 mmol/L 136-145 [facility] WBC (Bld) [#/Vol] 7.0 10*3/uL 4.4-11.0 [facility] Blood erythrocytes count (nu mber/volume)Ordered By: Rizwan Florentino on 07-12-2023 RBC (Bld) [#/Vol] 4.17 10*6/uL 4.2-5.4 [facility] Blood hemoglobin measurement (mass/volume)Ordered By: Rizwan Florentino on 07-12-2023 Hemoglobin (Bld) [Mass/Vol] 12.1 g/dL 12.0-15.0 [facility] Blood platelet mean volumeOr dered By: Rizwan Florentino on 07-12-2023 Platelet mean volume (Bld) [Entitic vol] 10.8 fL 6.2-12.0 [facility] Determination of erythrocyte mean corpuscular volume (MCV)Ordered By: Rizwan Florentino on 07-12-2023 MCV (RBC) [Entitic vol] 93.5 fL 81-99 [facility] Hematocrit Auto (Bld) [Volum e fraction]Ordered By: Rizwan Florentino on 07-12-2023 Hematocrit (Bld) [Volume fraction] 39.0 % 37-47 [facility] Laboratory - Chemistry and C hemistry - challengeOrdered By: Rizwan Florentino on 07-12-2023 CO2 [Moles/Vol] 28.0 mmol/L 21.0-32.0 [facility] Urea nitrogen/Creatinine [Mass ratio] 42.5 mg/mg 10-20 [facility] Laboratory - Hematology and Cell countsOrdered By: Rizwan Florentino on 07-12-2023 Erythrocyte distribution width (RBC) [Entitic vol] 53.0 fL 35.1-43.9 [facility] Erythrocyte distribution width (RBC) [Ratio] 15.5 % 11.6-14.6 [facility] MCH (RBC) [Entitic mass] 29.0 pg 27.0-32.0 [facility] MCHC Auto (RBC) [Mass/Vol]Or dered By: Rizwan Florentino on 07-12-2023 MCHC (RBC) [Mass/Vol] 31.0 g/dL 32-36 [facility] No Panel InformationOrdered By: Rizwan Florentino on 07-12-2023 Estimated GFR (MDRD) Amer 90 mL/min >60 [facility] Comment on above: GFR Calc Estimated GFR (MDRD) Non-Af Amer 74 mL/min >60 [facility] Comment on above: Non- GFR Calc Platelets bldOrdered By: Leatha Florentino on 07-12-2023 Platelets (Bld) [#/Vol] 255 10*3/uL 150-450 [facility] Serum or plasma calcium chay urement (mass/volume)Ordered By: Rizwan Florentino on 07-12-2023 Calcium [Mass/Vol] 9.0 mg/dL 8.5-10.1 [facility] Serum or plasma creatinine m easurement (mass/volume)Ordered By: Rizwan Florentino on 07-12-2023 Creatinine [Mass/Vol] 0.80 mg/dL 0.55-1.02 [facility] Comment on above: The validity of the calculated GFR & GFRAA in patients over 70 years has not been determined. Clinical correlation is essential. Serum or plasma urea nitroge n measurement (mass/volume)Ordered By: Rizwan Florentino on 07-12-2023 Urea nitrogen [Mass/Vol] 34 mg/dL 7-18 [facility] Thin prep Papanicolaou smear with manual screeningOrdered By: Rizwan Florentino on 07-12-2023 Thin prep Papanicolaou smear with manual screening 4 5-15 [facility] Basophil percentageOrdered B y: Gerda Wilks on 07-05-2023 Cholesterol [Mass/Vol] 155 mg/dL <200 [facility] Comment on above: <200 mg/dL Desirable 200-240 mg/dL Borderline >240 mg/dL High Risk Triglyceride [Mass/Vol] 79 mg/dL <199 [facility] Comment on above: The drugs N-Acetylcy steine and Metamizole may falsely depress this assay.Serum Triglycerides Reference Interval Normal <150 mg/dL Borderline high 150 - 199 mg/dL High 200 - 499 mg/dL Very High > or = 500 mg/dL Serum or plasma cholesterol in HDL measurement (mass/volume)Ordered By: Gerda Wilks on 07-05-2023 Cholesterol in HDL [Mass/Vol] 60 mg/dL >40 [facility] Comment on above: The drugs N-Acetylcy steine and Metamizole may falsely depress this assay. Reference Range HDL <40 mg/dL Low HDL Cholesterol HDL >or= 60 mg/dL High HDL Cholesterol Serum or plasma cholesterol in VLDL measurement (mass/volume)Ordered By: Gerda Wilks on 07-05-2023 Cholesterol in VLDL [Mass/Vol] 16 mg/dL 5-40 [facility] Serum or plasma low density lipoprotein (LDL) cholesterol measurement (mass/volume)Ordered By: Gerda Wilks on 07-05-2023 Cholesterol in LDL [Mass/Vol] 79 mg/dL 0-130 [facility] Basophil percentageOrdered B y: Gerda Wilks on 06-14-2023 Chloride [Moles/Vol] 112 mmol/L 98-107 [facility] Glucose [Mass/Vol] 112 mg/dL 74-106 [facility] Comment on above: Fasting Glucose resu lt from 100 to 125 mg/dL suggests IMPAIRED HOMEOSTASIS per A.D.A. criteria. Potassium [Moles/Vol] 4.3 mmol/L 3.5-5.1 [facility] Sodium [Moles/Vol] 143 mmol/L 136-145 [facility] WBC (Bld) [#/Vol] 7.0 10*3/uL 4.4-11.0 [facility] Blood erythrocytes count (nu mber/volume)Ordered By: Gerda Wilks on 06-14-2023 RBC (Bld) [#/Vol] 4.40 10*6/uL 4.2-5.4 [facility] Blood hemoglobin measurement (mass/volume)Ordered By: Gerda Wilks on 06-14-2023 Hemoglobin (Bld) [Mass/Vol] 12.6 g/dL 12.0-15.0 [facility] Blood platelet mean volumeOr dered By: Gerda Wilks on 06-14-2023 Platelet mean volume (Bld) [Entitic vol] 11.0 fL 6.2-12.0 [facility] Determination of erythrocyte mean corpuscular volume (MCV)Ordered By: Gerda Wilks on 06-14-2023 MCV (RBC) [Entitic vol] 93.6 fL 81-99 [facility] Hematocrit Auto (Bld) [Volum e fraction]Ordered By: Gerda Wilks on 06-14-2023 Hematocrit (Bld) [Volume fraction] 41.2 % 37-47 [facility] Laboratory - Chemistry and C hemistry - challengeOrdered By: Gerda Wilks on 06-14-2023 CO2 [Moles/Vol] 26.0 mmol/L 21.0-32.0 [facility] Urea nitrogen/Creatinine [Mass ratio] 36.6 mg/mg 10-20 [facility] Laboratory - Hematology and Cell countsOrdered By: Gerda Wilks on 06-14-2023 Erythrocyte distribution width (RBC) [Entitic vol] 53.9 fL 35.1-43.9 [facility] Erythrocyte distribution width (RBC) [Ratio] 15.6 % 11.6-14.6 [facility] MCH (RBC) [Entitic mass] 28.6 pg 27.0-32.0 [facility] MCHC Auto (RBC) [Mass/Vol]Or dered By: Gerda Wilks on 06-14-2023 MCHC (RBC) [Mass/Vol] 30.6 g/dL 32-36 [facility] No Panel InformationOrdered By: Gerda Wilks on 06-14-2023 Estimated GFR (MDRD) Amer 87 mL/min >60 [facility] Comment on above: GFR Calc Estimated GFR (MDRD) Non-Af Amer 72 mL/min >60 [facility] Comment on above: Non- GFR Calc Platelets bldOrdered By: Gustavo Wilks on 06-14-2023 Platelets (Bld) [#/Vol] 244 10*3/uL 150-450 [facility] Serum or plasma calcium chay urement (mass/volume)Ordered By: Gerda Wilks on 06-14-2023 Calcium [Mass/Vol] 9.2 mg/dL 8.5-10.1 [facility] Serum or plasma creatinine m easurement (mass/volume)Ordered By: Gerda Wilks on 06-14-2023 Creatinine [Mass/Vol] 0.82 mg/dL 0.55-1.02 [facility] Comment on above: The validity of the calculated GFR & GFRAA in patients over 70 years has not been determined. Clinical correlation is essential. Serum or plasma urea nitroge n measurement (mass/volume)Ordered By: Gerda Wilks on 06-14-2023 Urea nitrogen [Mass/Vol] 30 mg/dL 7-18 [facility] Thin prep Papanicolaou smear with manual screeningOrdered By: Gerda Wilks on 06-14-2023 Thin prep Papanicolaou smear with manual screening 5 5-15 [facility] Basophil percentageOrdered B y: Gerda Wilks on 05-17-2023 Chloride [Moles/Vol] 108 mmol/L 98-107 [facility] Glucose [Mass/Vol] 140 mg/dL 74-106 [facility] Comment on above: Fasting Glucose resu lt greater than or equal to 126 mg/dL suggests DIABETES MELLITUS per A.D.A. criteria. Potassium [Moles/Vol] 3.8 mmol/L 3.5-5.1 [facility] Sodium [Moles/Vol] 142 mmol/L 136-145 [facility] WBC (Bld) [#/Vol] 8.5 10*3/uL 4.4-11.0 [facility] Blood erythrocytes count (nu mber/volume)Ordered By: Gerda Wilks on 05-17-2023 RBC (Bld) [#/Vol] 4.43 10*6/uL 4.2-5.4 [facility] Blood hemoglobin measurement (mass/volume)Ordered By: Gerda Wilks on 05-17-2023 Hemoglobin (Bld) [Mass/Vol] 12.6 g/dL 12.0-15.0 [facility] Blood platelet mean volumeOr dered By: Gerda Wilks on 05-17-2023 Platelet mean volume (Bld) [Entitic vol] 10.4 fL 6.2-12.0 [facility] Determination of erythrocyte mean corpuscular volume (MCV)Ordered By: Gerda Wilks on 05-17-2023 MCV (RBC) [Entitic vol] 92.1 fL 81-99 [facility] Hematocrit Auto (Bld) [Volum e fraction]Ordered By: Gerda Wilks on 05-17-2023 Hematocrit (Bld) [Volume fraction] 40.8 % 37-47 [facility] Laboratory - Chemistry and C hemistry - challengeOrdered By: Gerda Wilks on 05-17-2023 CO2 [Moles/Vol] 28.0 mmol/L 21.0-32.0 [facility] Urea nitrogen/Creatinine [Mass ratio] 36.6 mg/mg 10-20 [facility] Laboratory - Hematology and Cell countsOrdered By: Gerda Wilks on 05-17-2023 Erythrocyte distribution width (RBC) [Entitic vol] 55.1 fL 35.1-43.9 [facility] Erythrocyte distribution width (RBC) [Ratio] 16.2 % 11.6-14.6 [facility] MCH (RBC) [Entitic mass] 28.4 pg 27.0-32.0 [facility] MCHC Auto (RBC) [Mass/Vol]Or dered By: Gerda Wilks on 05-17-2023 MCHC (RBC) [Mass/Vol] 30.9 g/dL 32-36 [facility] No Panel InformationOrdered By: Gerda Wilks on 05-17-2023 Estimated GFR (MDRD) Amer 75 mL/min >60 [facility] Comment on above: GFR Calc Estimated GFR (MDRD) Non-Af Amer 62 mL/min >60 [facility] Comment on above: Non- GFR Calc Platelets bldOrdered By: Gustavo Wilks on 05-17-2023 Platelets (Bld) [#/Vol] 254 10*3/uL 150-450 [facility] Serum or plasma calcium chay urement (mass/volume)Ordered By: Gerda Wilks on 05-17-2023 Calcium [Mass/Vol] 9.5 mg/dL 8.5-10.1 [facility] Serum or plasma creatinine m easurement (mass/volume)Ordered By: Gerda Wilks on 05-17-2023 Creatinine [Mass/Vol] 0.93 mg/dL 0.55-1.02 [facility] Comment on above: The validity of the calculated GFR & GFRAA in patients over 70 years has not been determined. Clinical correlation is essential. Serum or plasma urea nitroge n measurement (mass/volume)Ordered By: Gerda Wilks on 05-17-2023 Urea nitrogen [Mass/Vol] 34 mg/dL 7-18 [facility] Thin prep Papanicolaou smear with manual screeningOrdered By: Gerda Wilks on 05-17-2023 Thin prep Papanicolaou smear with manual screening 6 5-15 [facility] Basophil percentageOrdered B y: Gerda Wilks on 04-19-2023 Chloride [Moles/Vol] 109 mmol/L 98-107 [facility] Glucose [Mass/Vol] 107 mg/dL 74-106 [facility] Comment on above: Fasting Glucose resu lt from 100 to 125 mg/dL suggests IMPAIRED HOMEOSTASIS per A.D.A. criteria. Potassium [Moles/Vol] 4.3 mmol/L 3.5-5.1 [facility] Sodium [Moles/Vol] 141 mmol/L 136-145 [facility] WBC (Bld) [#/Vol] 6.6 10*3/uL 4.4-11.0 [facility] Blood erythrocytes count (nu mber/volume)Ordered By: Gerda Wilks on 04-19-2023 RBC (Bld) [#/Vol] 4.20 10*6/uL 4.2-5.4 [facility] Blood hemoglobin measurement (mass/volume)Ordered By: Gerda Wilks on 04-19-2023 Hemoglobin (Bld) [Mass/Vol] 11.8 g/dL 12.0-15.0 [facility] Blood platelet mean volumeOr dered By: Gerda Wilks on 04-19-2023 Platelet mean volume (Bld) [Entitic vol] 10.9 fL 6.2-12.0 [facility] Determination of erythrocyte mean corpuscular volume (MCV)Ordered By: Gerda Wilks on 04-19-2023 MCV (RBC) [Entitic vol] 92.6 fL 81-99 [facility] Hematocrit Auto (Bld) [Volum e fraction]Ordered By: Gerda Wilks on 04-19-2023 Hematocrit (Bld) [Volume fraction] 38.9 % 37-47 [facility] Laboratory - Chemistry and C hemistry - challengeOrdered By: Gerda Wilks on 04-19-2023 CO2 [Moles/Vol] 27.0 mmol/L 21.0-32.0 [facility] Urea nitrogen/Creatinine [Mass ratio] 36.5 mg/mg 10-20 [facility] Laboratory - Hematology and Cell countsOrdered By: Gerda Wilks on 04-19-2023 Erythrocyte distribution width (RBC) [Entitic vol] 55.1 fL 35.1-43.9 [facility] Erythrocyte distribution width (RBC) [Ratio] 16.2 % 11.6-14.6 [facility] MCH (RBC) [Entitic mass] 28.1 pg 27.0-32.0 [facility] MCHC Auto (RBC) [Mass/Vol]Or dered By: Gerda Wilks on 04-19-2023 MCHC (RBC) [Mass/Vol] 30.3 g/dL 32-36 [facility] No Panel InformationOrdered By: Gerda Wilks on 04-19-2023 Estimated GFR (MDRD) Amer 98 mL/min >60 [facility] Comment on above: GFR Calc Estimated GFR (MDRD) Non-Af Amer 81 mL/min >60 [facility] Comment on above: Non- GFR Calc Platelets bldOrdered By: Gustavo Wilks on 04-19-2023 Platelets (Bld) [#/Vol] 247 10*3/uL 150-450 [facility] Serum or plasma calcium chay urement (mass/volume)Ordered By: Gerda Wilks on 04-19-2023 Calcium [Mass/Vol] 9.5 mg/dL 8.5-10.1 [facility] Serum or plasma creatinine m easurement (mass/volume)Ordered By: Gerda Wilks on 04-19-2023 Creatinine [Mass/Vol] 0.74 mg/dL 0.55-1.02 [facility] Comment on above: The validity of the calculated GFR & GFRAA in patients over 70 years has not been determined. Clinical correlation is essential. Serum or plasma urea nitroge n measurement (mass/volume)Ordered By: Gerda Wilks on 04-19-2023 Urea nitrogen [Mass/Vol] 27 mg/dL 7-18 [facility] Thin prep Papanicolaou smear with manual screeningOrdered By: Gerda Wilks on 04-19-2023 Thin prep Papanicolaou smear with manual screening 5 5-15 [facility] Basophil percentageOrdered B y: Gerda Wilks on 03-22-2023 Chloride [Moles/Vol] 107 mmol/L 98-107 [facility] Glucose [Mass/Vol] 98 mg/dL 74-106 [facility] Potassium [Moles/Vol] 3.9 mmol/L 3.5-5.1 [facility] Sodium [Moles/Vol] 139 mmol/L 136-145 [facility] WBC (Bld) [#/Vol] 7.6 10*3/uL 4.4-11.0 [facility] Blood erythrocytes count (nu mber/volume)Ordered By: Gerda Wilks on 03-22-2023 RBC (Bld) [#/Vol] 4.14 10*6/uL 4.2-5.4 [facility] Blood hemoglobin measurement (mass/volume)Ordered By: Gerda Wilks on 03-22-2023 Hemoglobin (Bld) [Mass/Vol] 12.0 g/dL 12.0-15.0 [facility] Blood platelet mean volumeOr dered By: Gerda Wilks on 03-22-2023 Platelet mean volume (Bld) [Entitic vol] 10.9 fL 6.2-12.0 [facility] Determination of erythrocyte mean corpuscular volume (MCV)Ordered By: Gerda Wilks on 03-22-2023 MCV (RBC) [Entitic vol] 91.3 fL 81-99 [facility] Hematocrit Auto (Bld) [Volum e fraction]Ordered By: Gerda Wilks on 03-22-2023 Hematocrit (Bld) [Volume fraction] 37.8 % 37-47 [facility] Laboratory - Chemistry and C hemistry - challengeOrdered By: Gerda Wilks on 03-22-2023 CO2 [Moles/Vol] 26.0 mmol/L 21.0-32.0 [facility] Urea nitrogen/Creatinine [Mass ratio] 35.3 mg/mg 10-20 [facility] Laboratory - Hematology and Cell countsOrdered By: Gerda Wilks on 03-22-2023 Erythrocyte distribution width (RBC) [Entitic vol] 53.3 fL 35.1-43.9 [facility] Erythrocyte distribution width (RBC) [Ratio] 16.0 % 11.6-14.6 [facility] MCH (RBC) [Entitic mass] 29.0 pg 27.0-32.0 [facility] MCHC Auto (RBC) [Mass/Vol]Or dered By: Gerda Wilks on 03-22-2023 MCHC (RBC) [Mass/Vol] 31.7 g/dL 32- [facility] No Panel InformationOrdered By: Gerda Wilks on 03-22-2023 Estimated GFR (MDRD) Amer 90 mL/min >60 [facility] Comment on above: GFR Calc Estimated GFR (MDRD) Non-Af Amer 75 mL/min >60 [facility] Comment on above: Non- GFR Calc Platelets bldOrdered By: Gustavo Wilks on 03-22-2023 Platelets (Bld) [#/Vol] 242 10*3/uL 150-450 [facility] Serum or plasma calcium chay urement (mass/volume)Ordered By: Gerda Wilks on 03-22-2023 Calcium [Mass/Vol] 9.0 mg/dL 8.5-10.1 [facility] Serum or plasma creatinine m easurement (mass/volume)Ordered By: Gerda Wilks on 03-22-2023 Creatinine [Mass/Vol] 0.79 mg/dL 0.55-1.02 [facility] Comment on above: The validity of the calculated GFR & GFRAA in patients over 70 years has not been determined. Clinical correlation is essential. Serum or plasma urea nitroge n measurement (mass/volume)Ordered By: Gerda Wilks on 03-22-2023 Urea nitrogen [Mass/Vol] 28 mg/dL 7-18 [facility] Thin prep Papanicolaou smear with manual screeningOrdered By: Gerda Wilks on 03-22-2023 Thin prep Papanicolaou smear with manual screening 6 5-15 [facility] Basophil percentageOrdered B y: Gerda Wilks on 02-22-2023 Chloride [Moles/Vol] 108 mmol/L 98-107 [facility] Glucose [Mass/Vol] 107 mg/dL 74-106 [facility] Comment on above: Fasting Glucose resu lt from 100 to 125 mg/dL suggests IMPAIRED HOMEOSTASIS per A.D.A. criteria. Potassium [Moles/Vol] 4.2 mmol/L 3.5-5.1 [facility] Sodium [Moles/Vol] 140 mmol/L 136-145 [facility] WBC (Bld) [#/Vol] 6.5 10*3/uL 4.4-11.0 [facility] Blood erythrocytes count (nu mber/volume)Ordered By: Gerda Wilks on 02-22-2023 RBC (Bld) [#/Vol] 4.14 10*6/uL 4.2-5.4 [facility] Blood hemoglobin measurement (mass/volume)Ordered By: Gerda Wilks on 02-22-2023 Hemoglobin (Bld) [Mass/Vol] 11.7 g/dL 12.0-15.0 [facility] Blood platelet mean volumeOr dered By: Gerda Wilks on 02-22-2023 Platelet mean volume (Bld) [Entitic vol] 10.7 fL 6.2-12.0 [facility] Determination of erythrocyte mean corpuscular volume (MCV)Ordered By: Gerda Wilks on 02-22-2023 MCV (RBC) [Entitic vol] 91.3 fL 81-99 [facility] Hematocrit Auto (Bld) [Volum e fraction]Ordered By: Gerda Wilks on 02-22-2023 Hematocrit (Bld) [Volume fraction] 37.8 % 37-47 [facility] - Chemistry and C hemistry - challengeOrdered By: Gerda Wilks on 02-22-2023 CO2 [Moles/Vol] 27.0 mmol/L 21.0-32.0 [facility] Urea nitrogen/Creatinine [Mass ratio] 33.5 mg/mg 10-20 [facility] - Hematology and Cell countsOrdered By: Gerda Wilks on 02-22-2023 Erythrocyte distribution width (RBC) [Entitic vol] 53.0 fL 35.1-43.9 [facility] Erythrocyte distribution width (RBC) [Ratio] 15.9 % 11.6-14.6 [facility] MCH (RBC) [Entitic mass] 28.3 pg 27.0-32.0 [facility] MCHC Auto (RBC) [Mass/Vol]Or dered By: Gerda Wilks on 02-22-2023 MCHC (RBC) [Mass/Vol] 31.0 g/dL 32-36 [facility] No Panel InformationOrdered By: Gerda Wilks on 02-22-2023 Estimated GFR (MDRD) Amer 93 mL/min >60 [facility] Comment on above: GFR Calc Estimated GFR (MDRD) Non-Af Amer 77 mL/min >60 [facility] Comment on above: Non- GFR Calc Platelets bldOrdered By: Gustavo Wilks on 02-22-2023 Platelets (Bld) [#/Vol] 265 10*3/uL 150-450 [facility] Serum or plasma calcium chay urement (mass/volume)Ordered By: Gerda Wilks on 02-22-2023 Calcium [Mass/Vol] 9.2 mg/dL 8.5-10.1 [facility] Serum or plasma creatinine m easurement (mass/volume)Ordered By: Gerda Wilks on 02-22-2023 Creatinine [Mass/Vol] 0.78 mg/dL 0.55-1.02 [facility] Comment on above: The validity of the calculated GFR & GFRAA in patients over 70 years has not been determined. Clinical correlation is essential. Serum or plasma urea nitroge n measurement (mass/volume)Ordered By: Gerda Wilks on 02-22-2023 Urea nitrogen [Mass/Vol] 26 mg/dL 7-18 [facility] Thin prep Papanicolaou smear with manual screeningOrdered By: Gerda Wilks on 02-22-2023 Thin prep Papanicolaou smear with manual screening 5 5-15 [facility] Basophil percentageOrdered B y: Dr. Wilks on 01-25-2023 Chloride [Moles/Vol] 108 mmol/L 98-107 [facility] Glucose [Mass/Vol] 110 mg/dL 74-106 [facility] Comment on above: Fasting Glucose resu lt from 100 to 125 mg/dL suggests IMPAIRED HOMEOSTASIS per A.D.A. criteria. Potassium [Moles/Vol] 4.1 mmol/L 3.5-5.1 [facility] Sodium [Moles/Vol] 139 mmol/L 136-145 [facility] WBC (Bld) [#/Vol] 7.2 10*3/uL 4.4-11.0 [facility] Blood erythrocytes count (nu mber/volume)Ordered By: Dr. Wilks on 01-25-2023 RBC (Bld) [#/Vol] 4.19 10*6/uL 4.2-5.4 [facility] Blood hemoglobin measurement (mass/volume)Ordered By: Dr. Wilks on 01-25-2023 Hemoglobin (Bld) [Mass/Vol] 12.0 g/dL 12.0-15.0 [facility] Blood platelet mean volumeOr dered By: Dr. Wilks on 01-25-2023 Platelet mean volume (Bld) [Entitic vol] 10.8 fL 6.2-12.0 [facility] Determination of erythrocyte mean corpuscular volume (MCV)Ordered By: Dr. Wilks on 01-25-2023 MCV (RBC) [Entitic vol] 92.8 fL 81-99 [facility] Hematocrit Auto (Bld) [Volum e fraction]Ordered By: Dr. Wilks on 01-25-2023 Hematocrit (Bld) [Volume fraction] 38.9 % 37-47 [facility] - Chemistry and C hemistry - challengeOrdered By: Dr. Wilks on 01-25-2023 CO2 [Moles/Vol] 27.0 mmol/L 21.0-32.0 [facility] Urea nitrogen/Creatinine [Mass ratio] 42.3 mg/mg 10-20 [facility] - Hematology and Cell countsOrdered By: Dr. Wilks on 01-25-2023 Erythrocyte distribution width (RBC) [Entitic vol] 55.7 fL 35.1-43.9 [facility] Erythrocyte distribution width (RBC) [Ratio] 16.3 % 11.6-14.6 [facility] MCH (RBC) [Entitic mass] 28.6 pg 27.0-32.0 [facility] MCHC Auto (RBC) [Mass/Vol]Or dered By: Dr. Wilks on 01-25-2023 MCHC (RBC) [Mass/Vol] 30.8 g/dL 32-36 [facility] No Panel InformationOrdered By: Dr. Wilks on 01-25-2023 Estimated GFR (MDRD) Amer 86 mL/min >60 [facility] Comment on above: GFR Calc Estimated GFR (MDRD) Non-Af Amer 71 mL/min >60 [facility] Comment on above: Non- GFR Calc Platelets bldOrdered By: Dr. Wilks on 01-25-2023 Platelets (Bld) [#/Vol] 262 10*3/uL 150-450 [facility] Serum or plasma calcium chay urement (mass/volume)Ordered By: Dr. Wilks on 01-25-2023 Calcium [Mass/Vol] 10.1 mg/dL 8.5-10.1 [facility] Serum or plasma creatinine m easurement (mass/volume)Ordered By: Dr. Wilks on 01-25-2023 Creatinine [Mass/Vol] 0.83 mg/dL 0.55-1.02 [facility] Comment on above: The validity of the calculated GFR & GFRAA in patients over 70 years has not been determined. Clinical correlation is essential. Serum or plasma urea nitroge n measurement (mass/volume)Ordered By: Dr. Wilks on 01-25-2023 Urea nitrogen [Mass/Vol] 35 mg/dL 7-18 [facility] Thin prep Papanicolaou smear with manual screeningOrdered By: Dr. Wilks on 01-25-2023 Thin prep Papanicolaou smear with manual screening 4 5-15 [facility] Basophil percentageOrdered B y: Dr. Wilks on 12-28-2022 Chloride [Moles/Vol] 108 mmol/L 98-107 [facility] Glucose [Mass/Vol] 109 mg/dL 74-106 [facility] Comment on above: Fasting Glucose resu lt from 100 to 125 mg/dL suggests IMPAIRED HOMEOSTASIS per A.D.A. criteria. Potassium [Moles/Vol] 4.2 mmol/L 3.5-5.1 [facility] Sodium [Moles/Vol] 141 mmol/L 136-145 [facility] WBC (Bld) [#/Vol] 8.5 10*3/uL 4.4-11.0 [facility] Blood erythrocytes count (nu mber/volume)Ordered By: Dr. Wilks on 12-28-2022 RBC (Bld) [#/Vol] 4.13 10*6/uL 4.2-5.4 [facility] Blood hemoglobin measurement (mass/volume)Ordered By: Dr. Wilks on 12-28-2022 Hemoglobin (Bld) [Mass/Vol] 11.7 g/dL 12.0-15.0 [facility] Blood platelet mean volumeOr dered By: Dr. Wilks on 12-28-2022 Platelet mean volume (Bld) [Entitic vol] 10.7 fL 6.2-12.0 [facility] Determination of erythrocyte mean corpuscular volume (MCV)Ordered By: Dr. Wilks on 12-28-2022 MCV (RBC) [Entitic vol] 92.0 fL 81-99 [facility] Hematocrit Auto (Bld) [Volum e fraction]Ordered By: Dr. Wilks on 12-28-2022 Hematocrit (Bld) [Volume fraction] 38.0 % 37-47 [facility] Laboratory - Chemistry and C hemistry - challengeOrdered By: Dr. Wilks on 12-28-2022 CO2 [Moles/Vol] 26.0 mmol/L 21.0-32.0 [facility] Urea nitrogen/Creatinine [Mass ratio] 30.6 mg/mg 10-20 [facility] Laboratory - Hematology and Cell countsOrdered By: Dr. Wilks on 12-28-2022 Erythrocyte distribution width (RBC) [Entitic vol] 57.1 fL 35.1-43.9 [facility] Erythrocyte distribution width (RBC) [Ratio] 17.2 % 11.6-14.6 [facility] MCH (RBC) [Entitic mass] 28.3 pg 27.0-32.0 [facility] MCHC Auto (RBC) [Mass/Vol]Or dered By: Dr. Wilks on 12-28-2022 MCHC (RBC) [Mass/Vol] 30.8 g/dL 32-36 [facility] No Panel InformationOrdered By: Dr. Wilks on 12-28-2022 Estimated GFR (MDRD) Amer 96 mL/min >60 [facility] Comment on above: GFR Calc Estimated GFR (MDRD) Non-Af Amer 80 mL/min >60 [facility] Comment on above: Non- GFR Calc Platelets bldOrdered By: Dr. Wilks on 12-28-2022 Platelets (Bld) [#/Vol] 254 10*3/uL 150-450 [facility] Serum or plasma calcium chay urement (mass/volume)Ordered By: Dr. Wilks on 12-28-2022 Calcium [Mass/Vol] 9.2 mg/dL 8.5-10.1 [facility] Serum or plasma creatinine m easurement (mass/volume)Ordered By: Dr. Wilks on 12-28-2022 Creatinine [Mass/Vol] 0.75 mg/dL 0.55-1.02 [facility] Comment on above: The validity of the calculated GFR & GFRAA in patients over 70 years has not been determined. Clinical correlation is essential. Serum or plasma urea nitroge n measurement (mass/volume)Ordered By: Dr. Wilks on 12-28-2022 Urea nitrogen [Mass/Vol] 23 mg/dL 7-18 [facility] Thin prep Papanicolaou smear with manual screeningOrdered By: Dr. Wilks on 12-28-2022 Thin prep Papanicolaou smear with manual screening 7 5-15 [facility] Basophil percentageOrdered B y: Dr. Wilks on 11-30-2022 Chloride [Moles/Vol] 107 mmol/L 98-107 [facility] Glucose [Mass/Vol] 154 mg/dL 74-106 [facility] Comment on above: Fasting Glucose resu lt greater than or equal to 126 mg/dL suggests DIABETES MELLITUS per A.D.A. criteria. Potassium [Moles/Vol] 4.0 mmol/L 3.5-5.1 [facility] Sodium [Moles/Vol] 139 mmol/L 136-145 [facility] WBC (Bld) [#/Vol] 7.4 10*3/uL 4.4-11.0 [facility] Blood erythrocytes count (nu mber/volume)Ordered By: Dr. Wilks on 11-30-2022 RBC (Bld) [#/Vol] 4.25 10*6/uL 4.2-5.4 [facility] Blood hemoglobin measurement (mass/volume)Ordered By: Dr. Wilks on 11-30-2022 Hemoglobin (Bld) [Mass/Vol] 11.8 g/dL 12.0-15.0 [facility] Blood platelet mean volumeOr dered By: Dr. Wilks on 11-30-2022 Platelet mean volume (Bld) [Entitic vol] 10.3 fL 6.2-12.0 [facility] Determination of erythrocyte mean corpuscular volume (MCV)Ordered By: Dr. Wilks on 11-30-2022 MCV (RBC) [Entitic vol] 91.3 fL 81-99 [facility] Hematocrit Auto (Bld) [Volum e fraction]Ordered By: Dr. Wilks on 11-30-2022 Hematocrit (Bld) [Volume fraction] 38.8 % 37-47 [facility] Laboratory - Chemistry and C hemistry - challengeOrdered By: Dr. Wilks on 11-30-2022 CO2 [Moles/Vol] 27.0 mmol/L 21.0-32.0 [facility] Urea nitrogen/Creatinine [Mass ratio] 27.8 mg/mg 10-20 [facility] Laboratory - Hematology and Cell countsOrdered By: Dr. Wilks on 11-30-2022 Erythrocyte distribution width (RBC) [Entitic vol] 55.3 fL 35.1-43.9 [facility] Erythrocyte distribution width (RBC) [Ratio] 16.7 % 11.6-14.6 [facility] MCH (RBC) [Entitic mass] 27.8 [facility].0[facility] [[facility]/Vol]Or dered By: Dr. Wilks on 11-30-2022 MCHC (RBC) [Mass/Vol] 30.4 g/dL 32-36 [facility] No Panel InformationOrdered By: Dr. Wilks on 11-30-2022 Estimated GFR (MDRD) Amer 82 mL/min >60 [facility] Comment on above: GFR Calc Estimated GFR (MDRD) Non-Af Amer 68 mL/min >60 [facility] Comment on above: Non- GFR Calc Platelets bldOrdered By: Dr. Wilks on 11-30-2022 Platelets (Bld) [#/Vol] 320 10*3/uL 150-450 [facility] Serum or plasma calcium chay urement (mass/volume)Ordered By: Dr. Wilks on 11-30-2022 Calcium [Mass/Vol] 9.5 mg/dL 8.5-10.1 [facility] Serum or plasma creatinine m easurement (mass/volume)Ordered By: Dr. Wilks on 11-30-2022 Creatinine [Mass/Vol] 0.86 mg/dL 0.55-1.02 [facility] Comment on above: The validity of the calculated GFR & GFRAA in patients over 70 years has not been determined. Clinical correlation is essential. Serum or plasma urea nitroge n measurement (mass/volume)Ordered By: Dr. Wilks on 11-30-2022 Urea nitrogen [Mass/Vol] 24 mg/dL 7-18 [facility] Thin prep Papanicolaou smear with manual screeningOrdered By: Dr. Wilks on 11-30-2022 Thin prep Papanicolaou smear with manual screening 5 5-15 [facility] Basophil percentageOrdered B y: Dr. Wilks on 10-30-2022 Basophil percentage 115 mg/dL 74-106 [facility] Basophil percentage 137 mmol/L 136-145 [facility] Basophil percentage 4.2 mmol/L 3.5-5.1 [facility] Basophil percentage 104 mmol/L 98-107 [facility] Basophils (Bld) [#/Vol] 8.3 10*3/uL 4.4-11.0 [facility] Chloride [Moles/Vol] 104 mmol/L 98-107 [facility] Glucose [Mass/Vol] 115 mg/dL 74-106 [facility] Comment on above: Fasting Glucose resu lt from 100 to 125 mg/dL suggests IMPAIRED HOMEOSTASIS per A.D.A. criteria. Potassium [Moles/Vol] 4.2 mmol/L 3.5-5.1 [facility] Sodium [Moles/Vol] 137 mmol/L 136-145 [facility] WBC (Bld) [#/Vol] 8.3 10*3/uL 4.4-11.0 [facility] Blood erythrocytes count (nu mber/volume)Ordered By: Dr. Wilks on 10-30-2022 RBC (Bld) [#/Vol] 4.14 10*6/uL 4.2-5.4 [facility] Blood hemoglobin measurement (mass/volume)Ordered By: Dr. Wilks on 10-30-2022 Hemoglobin (Bld) [Mass/Vol] 11.6 g/dL 12.0-15.0 [facility] Blood platelet mean volumeOr dered By: Dr. Wilks on 10-30-2022 Platelet mean volume (Bld) [Entitic vol] 10.3 fL 6.2-12.0 [facility] Determination of erythrocyte mean corpuscular volume (MCV)Ordered By: Dr. Wilks on 10-30-2022 MCV (RBC) [Entitic vol] 88.2 fL 81-99 [facility] Hematocrit Auto (Bld) [Volum e fraction]Ordered By: Dr. Wilks on 10-30-2022 Hematocrit (Bld) [Volume fraction] 36.5 % 37-47 [facility] Laboratory - Chemistry and C hemistry - challengeOrdered By: Dr. Wilks on 10-30-2022 CO2 [Moles/Vol] 25.0 mmol/L 21.0-32.0 [facility] Urea nitrogen/Creatinine [Mass ratio] 27.9 mg/mg 10-20 [facility] Laboratory - Hematology and Cell countsOrdered By: Dr. Wilks on 10-30-2022 Erythrocyte distribution width (RBC) [Entitic vol] 51.9 fL 35.1-43.9 [facility] Erythrocyte distribution width (RBC) [Ratio] 15.9 % 11.6-14.6 [facility] MCH (RBC) [Entitic mass] 28.0 pg 27.0-32.0 [facility] MCHC Auto (RBC) [Mass/Vol]Or dered By: Dr. Wilks on 10-30-2022 MCHC (RBC) [Mass/Vol] 31.8 g/dL 32-36 [facility] No Panel InformationOrdered By: Dr. Wilks on 10-30-2022 Estimated GFR (MDRD) Amer 83 mL/min >60 [facility] Comment on above: GFR Calc Estimated GFR (MDRD) Non-Af Amer 68 mL/min >60 [facility] Comment on above: Non- GFR Calc 28.0 pg 27.0-32.0 [facility] 15.9 % 11.6-14.6 [facility] 51.9 fl 35.1-43.9 [facility] 68 mL/min >60 [facility] 83 mL/min >60 [facility] 27.9 RATIO 10-20 [facility] 25.0 mmol/L 21.0-32.0 [facility] Platelets bldOrdered By: Dr. Wilks on 10-30-2022 Platelets (Bld) [#/Vol] 318 10*3/uL 150-450 [facility] Serum or plasma calcium chay urement (mass/volume)Ordered By: Dr. Wilks on 10-30-2022 Calcium [Mass/Vol] 9.5 mg/dL 8.5-10.1 [facility] Serum or plasma creatinine m easurement (mass/volume)Ordered By: Dr. Wilks on 10-30-2022 Creatinine [Mass/Vol] 0.86 mg/dL 0.55-1.02 [facility] Comment on above: The validity of the calculated GFR & GFRAA in patients over 70 years has not been determined. Clinical correlation is essential. Serum or plasma urea nitroge n measurement (mass/volume)Ordered By: Dr. Wilks on 10-30-2022 Urea nitrogen [Mass/Vol] 24 mg/dL 7-18 [facility] Thin prep Papanicolaou smear with manual screeningOrdered By: Dr. Wilks on 10-30-2022 Thin prep Papanicolaou smear with manual screening 8 5-15 [facility] Absolute lymphocyte countOrd ered By: Dr. Wilks on 10-17-2022 Lymphocytes Auto (Unsp spec) [#/Vol] 1.14 10*3/uL 0.83-4.51 [facility] Basophil percentageOrdered B y: Dr. Wilks on 10-17-2022 Basophil percentage 125 mg/dL 74-106 [facility] Basophil percentage 138 mmol/L 136-145 [facility] Basophil percentage 4.2 mmol/L 3.5-5.1 [facility] Basophil percentage 106 mmol/L 98-107 [facility] Basophils (Bld) [#/Vol] 7.9 10*3/uL 4.4-11.0 [facility] Basophils (Bld) [#/Vol] 5.8 10*3/uL 2.0-7.7 [facility] Basophils/100 WBC (Bld) 72.7 % 47-70 [facility] Basophils/100 WBC (Bld) 3.8 % 0-5 [facility] Basophils/100 WBC (Bld) 1.0 % 0-1 [facility] Chloride [Moles/Vol] 106 mmol/L 98-107 [facility] Eosinophils/100 WBC (Bld) 3.8 % 0-5 [facility] Glucose [Mass/Vol] 125 mg/dL 74-106 [facility] Comment on above: Fasting Glucose resu lt from 100 to 125 mg/dL suggests IMPAIRED HOMEOSTASIS per A.D.A. criteria. Neutrophils (Bld) [#/Vol] 5.8 10*3/uL 2.0-7.7 [facility] Neutrophils/100 WBC (Bld) 72.7 % 47-70 [facility] Potassium [Moles/Vol] 4.2 mmol/L 3.5-5.1 [facility] Sodium [Moles/Vol] 138 mmol/L 136-145 [facility] WBC (Bld) [#/Vol] 7.9 10*3/uL 4.4-11.0 [facility] Blood erythrocytes count (nu mber/volume)Ordered By: Dr. Wilks on 10-17-2022 RBC (Bld) [#/Vol] 4.58 10*6/uL 4.2-5.4 [facility] Blood hemoglobin measurement (mass/volume)Ordered By: Dr. Wilks on 10-17-2022 Hemoglobin (Bld) [Mass/Vol] 12.8 g/dL 12.0-15.0 [facility] Blood lymphocytes/100 leukoc ytesOrdered By: Dr. Wilks on 10-17-2022 Lymphocytes/100 WBC (Bld) 14.4 % 19-41 [facility] Blood monocytes/100 leukocyt esOrdered By: Dr. Wilks on 10-17-2022 Monocytes/100 WBC (Bld) 7.8 % 0-10 [facility] Blood platelet mean volumeOr dered By: Dr. Wilks on 10-17-2022 Platelet mean volume (Bld) [Entitic vol] 10.8 fL 6.2-12.0 [facility] Determination of erythrocyte mean corpuscular volume (MCV)Ordered By: Dr. Wilks on 10-17-2022 MCV (RBC) [Entitic vol] 90.0 fL 81-99 [facility] Hematocrit Auto (Bld) [Volum e fraction]Ordered By: Dr. Wilks on 10-17-2022 Hematocrit (Bld) [Volume fraction] 41.2 % 37-47 [facility] Laboratory - Chemistry and C hemistry - challengeOrdered By: Dr. Wilks on 10-17-2022 CO2 [Moles/Vol] 26.0 mmol/L 21.0-32.0 [facility] Urea nitrogen/Creatinine [Mass ratio] 23.6 mg/mg 10-20 [facility] Laboratory - Hematology and Cell countsOrdered By: Dr. Wilks on 10-17-2022 Erythrocyte distribution width (RBC) [Entitic vol] 54.4 fL 35.1-43.9 [facility] Erythrocyte distribution width (RBC) [Ratio] 16.7 % 11.6-14.6 [facility] Immature granulocytes/100 WBC (Bld) 0.300 % 0.0-0.9 [facility] Comment on above: IG% - Immature Granu locytes (promyelocytes, myelocytes and metamyelocytes) > 1% indicates that a LEFT SHIFT is Present. MCH (RBC) [Entitic mass] 27.9 pg 27.0-32.0 [facility] Nucleated RBC/100 WBC (Bld) [Ratio] 0 % 0-5 [facility] MCHC Auto (RBC) [Mass/Vol]Or dered By: Dr. Wilks on 10-17-2022 MCHC (RBC) [Mass/Vol] 31.1 g/dL 32-36 [facility] No Panel InformationOrdered By: Dr. Wilks on 10-17-2022 Estimated GFR (MDRD) Amer 84 mL/min >60 [facility] Comment on above: GFR Calc Estimated GFR (MDRD) Non-Af Amer 70 mL/min >60 [facility] Comment on above: Non- GFR Calc 27.9 pg 27.0-32.0 [facility] 16.7 % 11.6-14.6 [facility] 54.4 fl 35.1-43.9 [facility] 0.300 % 0.0-0.9 [facility] 0 % 0-5 [facility] 70 mL/min >60 [facility] 84 mL/min >60 [facility] 23.6 RATIO 10-20 [facility] 26.0 mmol/L 21.0-32.0 [facility] Platelets bldOrdered By: Dr. Wilks on 10-17-2022 Platelets (Bld) [#/Vol] 273 10*3/uL 150-450 [facility] Serum or plasma calcium chay urement (mass/volume)Ordered By: Dr. Wilks on 10-17-2022 Calcium [Mass/Vol] 10.0 mg/dL 8.5-10.1 [facility] Serum or plasma creatinine m easurement (mass/volume)Ordered By: Dr. Wilks on 10-17-2022 Creatinine [Mass/Vol] 0.85 mg/dL 0.55-1.02 [facility] Comment on above: The validity of the calculated GFR & GFRAA in patients over 70 years has not been determined. Clinical correlation is essential. Serum or plasma urea nitroge n measurement (mass/volume)Ordered By: Dr. Wilks on 10-17-2022 Urea nitrogen [Mass/Vol] 20 mg/dL 7-18 [facility] Thin prep Papanicolaou smear with manual screeningOrdered By: Dr. Wilks on 10-17-2022 Thin prep Papanicolaou smear with manual screening 6 5-15 [facility] Absolute lymphocyte countOrd ered By: Dr. Wilks on 10-10-2022 Lymphocytes Auto (Unsp spec) [#/Vol] 1.40 10*3/uL 0.83-4.51 [facility] Basophil percentageOrdered B y: Dr. Wilks on 10-10-2022 Basophil percentage 112 mg/dL 74-106 [facility] Basophil percentage 140 mmol/L 136-145 [facility] Basophil percentage 4.4 mmol/L 3.5-5.1 [facility] Basophil percentage 106 mmol/L 98-107 [facility] Basophils (Bld) [#/Vol] 7.3 10*3/uL 4.4-11.0 [facility] Basophils (Bld) [#/Vol] 4.8 10*3/uL 2.0-7.7 [facility] Basophils/100 WBC (Bld) 65.6 % 47-70 [facility] Basophils/100 WBC (Bld) 5.0 % 0-5 [facility] Basophils/100 WBC (Bld) 0.8 % 0-1 [facility] Chloride [Moles/Vol] 106 mmol/L 98-107 [facility] Eosinophils/100 WBC (Bld) 5.0 % 0-5 [facility] Glucose [Mass/Vol] 112 mg/dL 74-106 [facility] Comment on above: Fasting Glucose resu lt from 100 to 125 mg/dL suggests IMPAIRED HOMEOSTASIS per A.D.A. criteria. Neutrophils (Bld) [#/Vol] 4.8 10*3/uL 2.0-7.7 [facility] Neutrophils/100 WBC (Bld) 65.6 % 47-70 [facility] Potassium [Moles/Vol] 4.4 mmol/L 3.5-5.1 [facility] Sodium [Moles/Vol] 140 mmol/L 136-145 [facility] WBC (Bld) [#/Vol] 7.3 10*3/uL 4.4-11.0 [facility] Blood erythrocytes count (nu mber/volume)Ordered By: Dr. Wilks on 10-10-2022 RBC (Bld) [#/Vol] 4.59 10*6/uL 4.2-5.4 [facility] Blood hemoglobin measurement (mass/volume)Ordered By: Dr. Wilks on 10-10-2022 Hemoglobin (Bld) [Mass/Vol] 12.8 g/dL 12.0-15.0 [facility] Blood lymphocytes/100 leukoc ytesOrdered By: Dr. Wilks on 10-10-2022 Lymphocytes/100 WBC (Bld) 19.1 % 19-41 [facility] Blood monocytes/100 leukocyt esOrdered By: Dr. Wilks on 10-10-2022 Monocytes/100 WBC (Bld) 9.1 % 0-10 [facility] Blood platelet mean volumeOr dered By: Dr. Wilks on 10-10-2022 Platelet mean volume (Bld) [Entitic vol] 10.6 fL 6.2-12.0 [facility] Determination of erythrocyte mean corpuscular volume (MCV)Ordered By: Dr. Wilks on 10-10-2022 MCV (RBC) [Entitic vol] 89.3 fL 81-99 [facility] Hematocrit Auto (Bld) [Volum e fraction]Ordered By: Dr. Wilks on 10-10-2022 Hematocrit (Bld) [Volume fraction] 41.0 % 37-47 [facility] Laboratory - Chemistry and C hemistry - challengeOrdered By: Dr. Wilks on 10-10-2022 CO2 [Moles/Vol] 29.0 mmol/L 21.0-32.0 [facility] Urea nitrogen/Creatinine [Mass ratio] 25.5 mg/mg 10-20 [facility] Laboratory - Hematology and Cell countsOrdered By: Dr. Wilks on 10-10-2022 Erythrocyte distribution width (RBC) [Entitic vol] 53.8 fL 35.1-43.9 [facility] Erythrocyte distribution width (RBC) [Ratio] 16.6 % 11.6-14.6 [facility] Immature granulocytes/100 WBC (Bld) 0.400 % 0.0-0.9 [facility] Comment on above: IG% - Immature Granu locytes (promyelocytes, myelocytes and metamyelocytes) > 1% indicates that a LEFT SHIFT is Present. MCH (RBC) [Entitic mass] 27.9 pg 27.0-32.0 [facility] Nucleated RBC/100 WBC (Bld) [Ratio] 0 % 0-5 [facility] MCHC Auto (RBC) [Mass/Vol]Or dered By: Dr. Wilks on 10-10-2022 MCHC (RBC) [Mass/Vol] 31.2 g/dL 32-36 [facility] No Panel InformationOrdered By: Dr. Wilks on 10-10-2022 Estimated GFR (MDRD) Amer 87 mL/min >60 [facility] Comment on above: GFR Calc Estimated GFR (MDRD) Non-Af Amer 72 mL/min >60 [facility] Comment on above: Non- GFR Calc 27.9 pg 27.0-32.0 [facility] 16.6 % 11.6-14.6 [facility] 53.8 fl 35.1-43.9 [facility] 0.400 % 0.0-0.9 [facility] 0 % 0-5 [facility] 72 mL/min >60 [facility] 87 mL/min >60 [facility] 25.5 RATIO 10-20 [facility] 29.0 mmol/L 21.0-32.0 [facility] Platelets bldOrdered By: Dr. Wilks on 10-10-2022 Platelets (Bld) [#/Vol] 287 10*3/uL 150-450 [facility] Serum or plasma calcium chay urement (mass/volume)Ordered By: Dr. Wilks on 10-10-2022 Calcium [Mass/Vol] 11.2 mg/dL 8.5-10.1 [facility] Serum or plasma creatinine m easurement (mass/volume)Ordered By: Dr. Wilks on 10-10-2022 Creatinine [Mass/Vol] 0.82 mg/dL 0.55-1.02 [facility] Comment on above: The validity of the calculated GFR & GFRAA in patients over 70 years has not been determined. Clinical correlation is essential. Serum or plasma urea nitroge n measurement (mass/volume)Ordered By: Dr. Wilks on 10-10-2022 Urea nitrogen [Mass/Vol] 21 mg/dL 7-18 [facility] Thin prep Papanicolaou smear with manual screeningOrdered By: Dr. Wilks on 10-10-2022 Thin prep Papanicolaou smear with manual screening 5 5-15 [facility] No Panel InformationOrdered By: Dr. Wilks on 10-04-2022 Ionized Calcium 6.5 mg/dL 4.5-5.6 [facility] Comment on above: Performed at: [address] [id number] Director: Alexis Thomas PhD, Phone: [phone] Parathyroid Hormone (Intact) 90.9 pg/mL 18.4-80.1 [facility] 90.9 pg/mL 18.4-80.1 [facility] 6.5 mg/dL 4.5-5.6 [facility] Absolute lymphocyte countOrd ered By: Dr. Wilks on 10-03-2022 Lymphocytes Auto (Unsp spec) [#/Vol] 1.55 10*3/uL 0.83-4.51 [facility] Basophil percentageOrdered B y: Dr. Wilks on 10-03-2022 Basophil percentage 111 mg/dL 74-106 [facility] Basophil percentage 142 mmol/L 136-145 [facility] Basophil percentage 4.4 mmol/L 3.5-5.1 [facility] Basophil percentage 111 mmol/L 98-107 [facility] Basophils (Bld) [#/Vol] 8.1 10*3/uL 4.4-11.0 [facility] Basophils (Bld) [#/Vol] 5.3 10*3/uL 2.0-7.7 [facility] Basophils/100 WBC (Bld) 66.0 % 47-70 [facility] Basophils/100 WBC (Bld) 5.1 % 0-5 [facility] Basophils/100 WBC (Bld) 1.0 % 0-1 [facility] Chloride [Moles/Vol] 111 mmol/L 98-107 [facility] Eosinophils/100 WBC (Bld) 5.1 % 0-5 [facility] Glucose [Mass/Vol] 111 mg/dL 74-106 [facility] Comment on above: Fasting Glucose resu lt from 100 to 125 mg/dL suggests IMPAIRED HOMEOSTASIS per A.D.A. criteria. Neutrophils (Bld) [#/Vol] 5.3 10*3/uL 2.0-7.7 [facility] Neutrophils/100 WBC (Bld) 66.0 % 47-70 [facility] Potassium [Moles/Vol] 4.4 mmol/L 3.5-5.1 [facility] Comment on above: Slight Hemolysis, Re sult may be falsely increased. Sodium [Moles/Vol] 142 mmol/L 136-145 [facility] WBC (Bld) [#/Vol] 8.1 10*3/uL 4.4-11.0 [facility] Blood erythrocytes count (nu mber/volume)Ordered By: Dr. Wilks on 10-03-2022 RBC (Bld) [#/Vol] 4.70 10*6/uL 4.2-5.4 [facility] Blood hemoglobin measurement (mass/volume)Ordered By: Dr. Wilks on 10-03-2022 Hemoglobin (Bld) [Mass/Vol] 12.9 g/dL 12.0-15.0 [facility] Blood lymphocytes/100 leukoc ytesOrdered By: Dr. Wilks on 10-03-2022 Lymphocytes/100 WBC (Bld) 19.2 % 19-41 [facility] Blood monocytes/100 leukocyt esOrdered By: Dr. Wilks on 10-03-2022 Monocytes/100 WBC (Bld) 8.5 % 0-10 [facility] Blood platelet mean volumeOr dered By: Dr. Wilks on 10-03-2022 Platelet mean volume (Bld) [Entitic vol] 10.7 fL 6.2-12.0 [facility] Determination of erythrocyte mean corpuscular volume (MCV)Ordered By: Dr. Wilks on 10-03-2022 MCV (RBC) [Entitic vol] 91.1 fL 81-99 [facility] Hematocrit Auto (Bld) [Volum e fraction]Ordered By: Dr. Wilks on 10-03-2022 Hematocrit (Bld) [Volume fraction] 42.8 % 37-47 [facility] [place] Laboratory - Chemistry and C hemistry - challengeOrdered By: Dr. Wilks on 10-03-2022 CO2 [Moles/Vol] 24.0 mmol/L 21.0-32.0 [facility] Urea nitrogen/Creatinine [Mass ratio] 23.6 mg/mg 10-20 [facility] [place] Laboratory - Hematology and Cell countsOrdered By: Dr. Wilks on 10-03-2022 Erythrocyte distribution width (RBC) [Entitic vol] 55.8 fL 35.1-43.9 [facility] Erythrocyte distribution width (RBC) [Ratio] 16.4 % 11.6-14.6 [facility] Immature granulocytes/100 WBC (Bld) 0.200 % 0.0-0.9 [facility] Comment on above: IG% - Immature Granu locytes (promyelocytes, myelocytes and metamyelocytes) > 1% indicates that a LEFT SHIFT is Present. MCH (RBC) [Entitic mass] 27.4 pg 27.0-32.0 [facility] Nucleated RBC/100 WBC (Bld) [Ratio] 0 % 0-5 [facility] MCHC Auto (RBC) [Mass/Vol]Or dered By: Dr. Wilks on 10-03-2022 MCHC (RBC) [Mass/Vol] 30.1 g/dL 32-36 [facility] No Panel InformationOrdered By: Dr. Wilks on 10-03-2022 Estimated GFR (MDRD) Amer 89 mL/min >60 [facility] Comment on above: GFR Calc Estimated GFR (MDRD) Non-Af Amer 74 mL/min >60 [facility] Comment on above: Non- GFR Calc 27.4 pg 27.0-32.0 [facility] 16.4 % 11.6-14.6 [facility] 55.8 fl 35.1-43.9 [facility] 0.200 % 0.0-0.9 [facility] 0 % 0-5 [facility] 74 mL/min >60 [facility] 89 mL/min >60 [facility] 23.6 RATIO 10-20 [facility] 24.0 mmol/L 21.0-32.0 [facility] Platelets bldOrdered By: Dr. Wilks on 10-03-2022 Platelets (Bld) [#/Vol] 312 10*3/uL 150-450 [facility] Serum or plasma calcium chay urement (mass/volume)Ordered By: Dr. Wilks on 10-03-2022 Calcium [Mass/Vol] 11.1 mg/dL 8.5-10.1 [facility] Serum or plasma creatinine m easurement (mass/volume)Ordered By: Dr. Wilks on 10-03-2022 Creatinine [Mass/Vol] 0.80 mg/dL 0.55-1.02 [facility] Comment on above: The validity of the calculated GFR & GFRAA in patients over 70 years has not been determined. Clinical correlation is essential. Serum or plasma urea nitroge n measurement (mass/volume)Ordered By: Dr. Wilks on 10-03-2022 Urea nitrogen [Mass/Vol] 19 mg/dL 7-18 [facility] Thin prep Papanicolaou smear with manual screeningOrdered By: Dr. Wilks on 10-03-2022 Thin prep Papanicolaou smear with manual screening 7 5-15 [facility] Absolute lymphocyte countOrd ered By: Dr. Wilks on 09-26-2022 Lymphocytes Auto (Unsp spec) [#/Vol] 1.47 10*3/uL 0.83-4.51 [facility] Basophil percentageOrdered B y: Dr. Wilks on 09-26-2022 Basophil percentage 116 mg/dL 74-106 [facility] Basophil percentage 139 mmol/L 136-145 [facility] Basophil percentage 4.0 mmol/L 3.5-5.1 [facility] Basophil percentage 106 mmol/L 98-107 [facility] Basophils (Bld) [#/Vol] 8.4 10*3/uL 4.4-11.0 [facility] Basophils (Bld) [#/Vol] 5.5 10*3/uL 2.0-7.7 [facility] Basophils/100 WBC (Bld) 65.5 % 47-70 [facility] Basophils/100 WBC (Bld) 6.2 % 0-5 [facility] Basophils/100 WBC (Bld) 0.8 % 0-1 [facility] Chloride [Moles/Vol] 106 mmol/L 98-107 [facility] Eosinophils/100 WBC (Bld) 6.2 % 0-5 [facility] Glucose [Mass/Vol] 116 mg/dL 74-106 [facility] Comment on above: Fasting Glucose resu lt from 100 to 125 mg/dL suggests IMPAIRED HOMEOSTASIS per A.D.A. criteria. Neutrophils (Bld) [#/Vol] 5.5 10*3/uL 2.0-7.7 [facility] Neutrophils/100 WBC (Bld) 65.5 % 47-70 [facility] Potassium [Moles/Vol] 4.0 mmol/L 3.5-5.1 [facility] Sodium [Moles/Vol] 139 mmol/L 136-145 [facility] WBC (Bld) [#/Vol] 8.4 10*3/uL 4.4-11.0 [facility] Blood erythrocytes count (nu mber/volume)Ordered By: Dr. Wilks on 09-26-2022 RBC (Bld) [#/Vol] 4.33 10*6/uL 4.2-5.4 [facility] Blood hemoglobin measurement (mass/volume)Ordered By: Dr. Wilks on 09-26-2022 Hemoglobin (Bld) [Mass/Vol] 11.9 g/dL 12.0-15.0 [facility] Blood lymphocytes/100 leukoc ytesOrdered By: Dr. Wilks on 09-26-2022 Lymphocytes/100 WBC (Bld) 17.5 % 19-41 [facility] Blood monocytes/100 leukocyt esOrdered By: Dr. Wilks on 09-26-2022 Monocytes/100 WBC (Bld) 9.4 % 0-10 [facility] Blood platelet mean volumeOr dered By: Dr. Wilks on 09-26-2022 Platelet mean volume (Bld) [Entitic vol] 10.8 fL 6.2-12.0 [facility] Determination of erythrocyte mean corpuscular volume (MCV)Ordered By: Dr. Wilks on 09-26-2022 MCV (RBC) [Entitic vol] 89.8 fL 81-99 [facility] Hematocrit Auto (Bld) [Volum e fraction]Ordered By: Dr. Wilks on 09-26-2022 Hematocrit (Bld) [Volume fraction] 38.9 % 37-47 [facility] Laboratory - Chemistry and C hemistry - challengeOrdered By: Dr. Wilks on 09-26-2022 CO2 [Moles/Vol] 28.0 mmol/L 21.0-32.0 [facility] Urea nitrogen/Creatinine [Mass ratio] 24.9 mg/mg 10-20 [facility] Laboratory - Hematology and Cell countsOrdered By: Dr. Wilks on 09-26-2022 Erythrocyte distribution width (RBC) [Entitic vol] 54.1 fL 35.1-43.9 [facility] Erythrocyte distribution width (RBC) [Ratio] 16.5 % 11.6-14.6 [facility] Immature granulocytes/100 WBC (Bld) 0.600 % 0.0-0.9 [facility] Comment on above: IG% - Immature Granu locytes (promyelocytes, myelocytes and metamyelocytes) > 1% indicates that a LEFT SHIFT is Present. MCH (RBC) [Entitic mass] 27.5 pg 27.0-32.0 [facility] Nucleated RBC/100 WBC (Bld) [Ratio] 0 % 0-5 [facility] MCHC Auto (RBC) [Mass/Vol]Or dered By: Dr. Wilks on 09-26-2022 MCHC (RBC) [Mass/Vol] 30.6 g/dL 32-36 [facility] No Panel InformationOrdered By: Dr. Wilks on 09-26-2022 Estimated GFR (MDRD) Amer 95 mL/min >60 [facility] Comment on above: GFR Calc Estimated GFR (MDRD) Non-Af Amer 78 mL/min >60 [facility] Comment on above: Non- GFR Calc 27.5 pg 27.0-32.0 [facility] 16.5 % 11.6-14.6 [facility] 54.1 fl 35.1-43.9 [facility] 0.600 % 0.0-0.9 [facility] 0 % 0-5 [facility] 78 mL/min >60 [facility] 95 mL/min >60 [facility] 24.9 RATIO 10-20 [facility] 28.0 mmol/L 21.0-32.0 [facility] Platelets bldOrdered By: Dr. Wilks on 09-26-2022 Platelets (Bld) [#/Vol] 277 10*3/uL 150-450 [facility] Serum or plasma calcium chay urement (mass/volume)Ordered By: Dr. Wilks on 09-26-2022 Calcium [Mass/Vol] 10.8 mg/dL 8.5-10.1 [facility] Serum or plasma creatinine m easurement (mass/volume)Ordered By: Dr. Wilks on 09-26-2022 Creatinine [Mass/Vol] 0.76 mg/dL 0.55-1.02 [facility] Comment on above: The validity of the calculated GFR & GFRAA in patients over 70 years has not been determined. Clinical correlation is essential. Serum or plasma urea nitroge n measurement (mass/volume)Ordered By: Dr. Wilks on 09-26-2022 Urea nitrogen [Mass/Vol] 19 mg/dL 7-18 [facility] Thin prep Papanicolaou smear with manual screeningOrdered By: Dr. Wilks on 09-26-2022 Thin prep Papanicolaou smear with manual screening 5 5-15 [facility] Absolute lymphocyte countOrd ered By: Dr. Wilks on 09-19-2022 Lymphocytes Auto (Unsp spec) [#/Vol] 1.24 10*3/uL 0.83-4.51 [facility] Basophil percentageOrdered B y: Dr. Wilks on 09-19-2022 Basophil percentage 113 mg/dL 74-106 [facility] Basophil percentage 140 mmol/L 136-145 [facility] Basophil percentage 3.9 mmol/L 3.5-5.1 [facility] Basophil percentage 107 mmol/L 98-107 [facility] Basophils (Bld) [#/Vol] 8.0 10*3/uL 4.4-11.0 [facility] Basophils (Bld) [#/Vol] 5.5 10*3/uL 2.0-7.7 [facility] Basophils/100 WBC (Bld) 68.6 % 47-70 [facility] Basophils/100 WBC (Bld) 5.6 % 0-5 [facility] Basophils/100 WBC (Bld) 0.9 % 0-1 [facility] Chloride [Moles/Vol] 107 mmol/L 98-107 [facility] Eosinophils/100 WBC (Bld) 5.6 % 0-5 [facility] Glucose [Mass/Vol] 113 mg/dL 74-106 [facility] Comment on above: Fasting Glucose resu lt from 100 to 125 mg/dL suggests IMPAIRED HOMEOSTASIS per A.D.A. criteria. Neutrophils (Bld) [#/Vol] 5.5 10*3/uL 2.0-7.7 [facility] Neutrophils/100 WBC (Bld) 68.6 % 47-70 [facility] Potassium [Moles/Vol] 3.9 mmol/L 3.5-5.1 [facility] Sodium [Moles/Vol] 140 mmol/L 136-145 [facility] WBC (Bld) [#/Vol] 8.0 10*3/uL 4.4-11.0 [facility] Blood erythrocytes count (nu mber/volume)Ordered By: Dr. Wilks on 09-19-2022 RBC (Bld) [#/Vol] 4.38 10*6/uL 4.2-5.4 [facility] Blood hemoglobin measurement (mass/volume)Ordered By: Dr. Wilks on 09-19-2022 Hemoglobin (Bld) [Mass/Vol] 12.2 g/dL 12.0-15.0 [facility] Blood lymphocytes/100 leukoc ytesOrdered By: Dr. Wilks on 09-19-2022 Lymphocytes/100 WBC (Bld) 15.5 % 19-41 [facility] Blood monocytes/100 leukocyt esOrdered By: Dr. Wilks on 09-19-2022 Monocytes/100 WBC (Bld) 9.1 % 0-10 [facility] Blood platelet mean volumeOr dered By: Dr. Wilks on 09-19-2022 Platelet mean volume (Bld) [Entitic vol] 11.2 fL 6.2-12.0 [facility] Determination of erythrocyte mean corpuscular volume (MCV)Ordered By: Dr. Wilks on 09-19-2022 MCV (RBC) [Entitic vol] 90.9 fL 81-99 [facility] Hematocrit Auto (Bld) [Volum e fraction]Ordered By: Dr. Wilks on 09-19-2022 Hematocrit (Bld) [Volume fraction] 39.8 % 37-47 [facility] Laboratory - Chemistry and C hemistry - challengeOrdered By: Dr. Wilks on 09-19-2022 CO2 [Moles/Vol] 27.0 mmol/L 21.0-32.0 [facility] Urea nitrogen/Creatinine [Mass ratio] 25.8 mg/mg 10-20 [facility] Laboratory - Hematology and Cell countsOrdered By: Dr. Wilks on 09-19-2022 Erythrocyte distribution width (RBC) [Entitic vol] 54.8 fL 35.1-43.9 [facility] Erythrocyte distribution width (RBC) [Ratio] 16.4 % 11.6-14.6 [facility] Immature granulocytes/100 WBC (Bld) 0.300 % 0.0-0.9 [facility] Comment on above: IG% - Immature Granu locytes (promyelocytes, myelocytes and metamyelocytes) > 1% indicates that a LEFT SHIFT is Present. MCH (RBC) [Entitic mass] 27.9 pg 27.0-32.0 [facility] Nucleated RBC/100 WBC (Bld) [Ratio] 0 % 0-5 [facility] MCHC Auto (RBC) [Mass/Vol]Or dered By: Dr. Wilks on 09-19-2022 MCHC (RBC) [Mass/Vol] 30.7 g/dL 32-36 [facility] No Panel InformationOrdered By: Dr. Wilks on 09-19-2022 Estimated GFR (MDRD) Amer 88 mL/min >60 [facility] Comment on above: GFR Calc Estimated GFR (MDRD) Non-Af Amer 73 mL/min >60 [facility] Comment on above: Non- GFR Calc 27.9 pg 27.0-32.0 [facility] 16.4 % 11.6-14.6 [facility] 54.8 fl 35.1-43.9 [facility] 0.300 % 0.0-0.9 [facility] 0 % 0-5 [facility] 73 mL/min >60 [facility] 88 mL/min >60 [facility] 25.8 RATIO 10-20 [facility] 27.0 mmol/L 21.0-32.0 [facility] Platelets bldOrdered By: Dr. Wilks on 09-19-2022 Platelets (Bld) [#/Vol] 299 10*3/uL 150-450 [facility] Serum or plasma calcium chay urement (mass/volume)Ordered By: Dr. Wilks on 09-19-2022 Calcium [Mass/Vol] 10.3 mg/dL 8.5-10.1 [facility] Serum or plasma creatinine m easurement (mass/volume)Ordered By: Dr. Wilks on 09-19-2022 Creatinine [Mass/Vol] 0.81 mg/dL 0.55-1.02 [facility] Comment on above: The validity of the calculated GFR & GFRAA in patients over 70 years has not been determined. Clinical correlation is essential. Serum or plasma urea nitroge n measurement (mass/volume)Ordered By: Dr. Wilks on 09-19-2022 Urea nitrogen [Mass/Vol] 21 mg/dL 7-18 [facility] Thin prep Papanicolaou smear with manual screeningOrdered By: Dr. Wilks on 09-19-2022 Thin prep Papanicolaou smear with manual screening 6 -15 [facility] Absolute lymphocyte countOrd ered By: Dr. Wilks on 09-12-2022 Lymphocytes Auto (Unsp spec) [#/Vol] 1.68 10*3/uL 0.83-4.51 [facility] Basophil percentageOrdered B y: Dr. Wilks on 01-17-2023 Basophil percentage 114 mg/dL 74-106 [facility] Basophil percentage 139 mmol/L 136-145 [facility] Basophil percentage 4.4 mmol/L 3.5-5.1 [facility] Basophil percentage 110 mmol/L 98-107 [facility] Basophils (Bld) [#/Vol] 8.2 10*3/uL 4.4-11.0 [facility] Basophils (Bld) [#/Vol] 5.3 10*3/uL 2.0-7.7 [facility] Basophils/100 WBC (Bld) 64.6 % 47-70 [facility] Basophils/100 WBC (Bld) 5.0 % 0-5 [facility] Basophils/100 WBC (Bld) 1.1 % 0-1 [facility] Chloride [Moles/Vol] 110 mmol/L 98-107 [facility] Eosinophils/100 WBC (Bld) 5.0 % 0-5 [facility] Glucose [Mass/Vol] 114 mg/dL 74-106 [facility] Comment on above: Fasting Glucose resu lt from 100 to 125 mg/dL suggests IMPAIRED HOMEOSTASIS per A.D.A. criteria. Neutrophils (Bld) [#/Vol] 5.3 10*3/uL 2.0-7.7 [facility] Neutrophils/100 WBC (Bld) 64.6 % 47-70 [facility] Potassium [Moles/Vol] 4.4 mmol/L 3.5-5.1 [facility] Sodium [Moles/Vol] 139 mmol/L 136-145 [facility] WBC (Bld) [#/Vol] 8.2 10*3/uL 4.4-11.0 [facility] Blood erythrocytes count (nu mber/volume)Ordered By: Dr. Wilks on 09-12-2022 RBC (Bld) [#/Vol] 4.36 10*6/uL 4.2-5.4 [facility] Blood hemoglobin measurement (mass/volume)Ordered By: Dr. Wilks on 09-12-2022 Hemoglobin (Bld) [Mass/Vol] 12.0 g/dL 12.0-15.0 [facility] Blood lymphocytes/100 leukoc ytesOrdered By: Dr. Wilks on 09-12-2022 Lymphocytes/100 WBC (Bld) 20.5 % 19-41 [facility] Blood monocytes/100 leukocyt esOrdered By: Dr. Wilks on 09-12-2022 Monocytes/100 WBC (Bld) 8.3 % 0-10 [facility] Blood platelet mean volumeOr dered By: Dr. Wilks on 09-12-2022 Platelet mean volume (Bld) [Entitic vol] 10.7 fL 6.2-12.0 [facility] Determination of erythrocyte mean corpuscular volume (MCV)Ordered By: Dr. Wilks on 09-12-2022 MCV (RBC) [Entitic vol] 90.8 fL 81-99 [facility] Hematocrit Auto (Bld) [Volum e fraction]Ordered By: Dr. Wilks on 09-12-2022 Hematocrit (Bld) [Volume fraction] 39.6 % 37-47 [facility] Laboratory - Chemistry and C hemistry - challengeOrdered By: Dr. Wilks on 09-12-2022 CO2 [Moles/Vol] 25.0 mmol/L 21.0-32.0 [facility] Urea nitrogen/Creatinine [Mass ratio] 29.7 mg/mg 10-20 [facility] Laboratory - Hematology and Cell countsOrdered By: Dr. Wilks on 09-12-2022 Erythrocyte distribution width (RBC) [Entitic vol] 54.4 fL 35.1-43.9 [facility] Erythrocyte distribution width (RBC) [Ratio] 16.3 % 11.6-14.6 [facility] Immature granulocytes/100 WBC (Bld) 0.500 % 0.0-0.9 [facility] Comment on above: IG% - Immature Granu locytes (promyelocytes, myelocytes and metamyelocytes) > 1% indicates that a LEFT SHIFT is Present. MCH (RBC) [Entitic mass] 27.5 pg 27.0-32.0 [facility] Nucleated RBC/100 WBC (Bld) [Ratio] 0 % 0-5 [facility] MCHC Auto (RBC) [Mass/Vol]Or dered By: Dr. Wilks on 09-12-2022 MCHC (RBC) [Mass/Vol] 30.3 g/dL 32-36 [facility] No Panel InformationOrdered By: Dr. Wilks on 09-12-2022 Estimated GFR (MDRD) Amer 98 mL/min >60 [facility] Comment on above: GFR Calc Estimated GFR (MDRD) Non-Af Amer 81 mL/min >60 [facility] Comment on above: Non- GFR Calc 27.5 pg 27.0-32.0 [facility] 16.3 % 11.6-14.6 [facility] 54.4 fl 35.1-43.9 [facility] 0.500 % 0.0-0.9 [facility] 0 % 0-5 [facility] 81 mL/min >60 [facility] 98 mL/min >60 [facility] 29.7 RATIO 10-20 [facility] 25.0 mmol/L 21.0-32.0 [facility] Platelets bldOrdered By: Dr. Wilks on 09-12-2022 Platelets (Bld) [#/Vol] 331 10*3/uL 150-450 [facility] Serum or plasma calcium chay urement (mass/volume)Ordered By: Dr. Wilks on 09-12-2022 Calcium [Mass/Vol] 10.7 mg/dL 8.5-10.1 [facility] Serum or plasma creatinine m easurement (mass/volume)Ordered By: Dr. Wilks on 09-12-2022 Creatinine [Mass/Vol] 0.74 mg/dL 0.55-1.02 [facility] Comment on above: The validity of the calculated GFR & GFRAA in patients over 70 years has not been determined. Clinical correlation is essential. Serum or plasma urea nitroge n measurement (mass/volume)Ordered By: Dr. Wilks on 09-12-2022 Urea nitrogen [Mass/Vol] 22 mg/dL 7-18 [facility] Thin prep Papanicolaou smear with manual screeningOrdered By: Dr. Wilks on 09-12-2022 Thin prep Papanicolaou smear with manual screening 4 5-15 [facility] Absolute lymphocyte countOrd ered By: Dr. Wilks on 09-05-2022 Lymphocytes Auto (Unsp spec) [#/Vol] 1.29 10*3/uL 0.83-4.51 [facility] Basophil percentageOrdered B y: Dr. Wilks on 09-05-2022 Basophil percentage 92 mg/dL 74-106 [facility] Basophil percentage 139 mmol/L 136-145 [facility] Basophil percentage 4.1 mmol/L 3.5-5.1 [facility] Basophil percentage 106 mmol/L 98-107 [facility] Basophils (Bld) [#/Vol] 7.3 10*3/uL 4.4-11.0 [facility] Basophils (Bld) [#/Vol] 4.9 10*3/uL 2.0-7.7 [facility] Basophils/100 WBC (Bld) 1.0 % 0-1 [facility] Basophils/100 WBC (Bld) 67.1 % 47-70 [facility] Basophils/100 WBC (Bld) 4.9 % 0-5 [facility] Chloride [Moles/Vol] 106 mmol/L 98-107 [facility] Eosinophils/100 WBC (Bld) 4.9 % 0-5 [facility] Glucose [Mass/Vol] 92 mg/dL 74-106 [facility] Neutrophils (Bld) [#/Vol] 4.9 10*3/uL 2.0-7.7 [facility] Neutrophils/100 WBC (Bld) 67.1 % 47-70 [facility] Potassium [Moles/Vol] 4.1 mmol/L 3.5-5.1 [facility] Sodium [Moles/Vol] 139 mmol/L 136-145 [facility] WBC (Bld) [#/Vol] 7.3 10*3/uL 4.4-11.0 [facility] Blood erythrocytes count (nu mber/volume)Ordered By: Dr. Wilks on 09-05-2022 RBC (Bld) [#/Vol] 4.37 10*6/uL 4.2-5.4 [facility] Blood hemoglobin measurement (mass/volume)Ordered By: Dr. Wilks on 09-05-2022 Hemoglobin (Bld) [Mass/Vol] 12.4 g/dL 12.0-15.0 [facility] Blood lymphocytes/100 leukoc ytesOrdered By: Dr. Wilks on 09-05-2022 Lymphocytes/100 WBC (Bld) 17.6 % 19-41 [facility] Blood monocytes/100 leukocyt esOrdered By: Dr. Wilks on 09-05-2022 Monocytes/100 WBC (Bld) 9.0 % 0-10 [facility] Blood platelet mean volumeOr dered By: Dr. Wilks on 09-05-2022 Platelet mean volume (Bld) [Entitic vol] 10.3 fL 6.2-12.0 [facility] Determination of erythrocyte mean corpuscular volume (MCV)Ordered By: Dr. Wilks on 09-05-2022 MCV (RBC) [Entitic vol] 90.4 fL 81-99 [facility] Hematocrit Auto (Bld) [Volum e fraction]Ordered By: Dr. Wilks on 09-05-2022 Hematocrit (Bld) [Volume fraction] 39.5 % 37-47 [facility] Laboratory - Chemistry and C hemistry - challengeOrdered By: Dr. Wilks on 09-05-2022 CO2 [Moles/Vol] 27.0 mmol/L 21.0-32.0 [facility] Urea nitrogen/Creatinine [Mass ratio] 27.4 mg/mg 10-20 [facility] Laboratory - Hematology and Cell countsOrdered By: Dr. Wilks on 09-05-2022 Erythrocyte distribution width (RBC) [Entitic vol] 53.8 fL 35.1-43.9 [facility] Erythrocyte distribution width (RBC) [Ratio] 16.1 % 11.6-14.6 [facility] Immature granulocytes/100 WBC (Bld) 0.400 % 0.0-0.9 [facility] Comment on above: IG% - Immature Granu locytes (promyelocytes, myelocytes and metamyelocytes) > 1% indicates that a LEFT SHIFT is Present. MCH (RBC) [Entitic mass] 28.4 pg 27.0-32.0 [facility] Nucleated RBC/100 WBC (Bld) [Ratio] 0 % 0-5 [facility] MCHC Auto (RBC) [Mass/Vol]Or dered By: Dr. Wilks on 09-05-2022 MCHC (RBC) [Mass/Vol] 31.4 g/dL 32-36 [facility] No Panel InformationOrdered By: Dr. Wilks on 09-05-2022 Estimated GFR (MDRD) Amer 81 mL/min >60 [facility] Comment on above: GFR Calc Estimated GFR (MDRD) Non-Af Amer 67 mL/min >60 [facility] Comment on above: Non- GFR Calc 28.4 pg 27.0-32.0 [facility] 16.1 % 11.6-14.6 [facility] 53.8 fl 35.1-43.9 [facility] 0.400 % 0.0-0.9 [facility] 0 % 0-5 [facility] 67 mL/min >60 [facility] 81 mL/min >60 [facility] 27.4 RATIO 10-20 [facility] 27.0 mmol/L 21.0-32.0 [facility] Platelets bldOrdered By: Dr. Wilks on 09-05-2022 Platelets (Bld) [#/Vol] 357 10*3/uL 150-450 [facility] Serum or plasma calcium chay urement (mass/volume)Ordered By: Dr. Wilks on 09-05-2022 Calcium [Mass/Vol] 11.1 mg/dL 8.5-10.1 [facility] Serum or plasma creatinine m easurement (mass/volume)Ordered By: Dr. Wilks on 09-05-2022 Creatinine [Mass/Vol] 0.88 mg/dL 0.55-1.02 [facility] Comment on above: The validity of the calculated GFR & GFRAA in patients over 70 years has not been determined. Clinical correlation is essential. Serum or plasma urea nitroge n measurement (mass/volume)Ordered By: Dr. Wilks on 09-05-2022 Urea nitrogen [Mass/Vol] 24 mg/dL 7-18 [facility] Thin prep Papanicolaou smear with manual screeningOrdered By: Dr. Wilks on 09-05-2022 Thin prep Papanicolaou smear with manual screening 6 5-15 [facility] Absolute lymphocyte countOrd ered By: Dr. Wilks on 08-29-2022 Lymphocytes Auto (Unsp spec) [#/Vol] 1.18 10*3/uL 0.83-4.51 [facility] Basophil percentageOrdered B y: Dr. Wilks on 08-29-2022 Basophil percentage 101 mg/dL 74-106 [facility] Basophil percentage 140 mmol/L 136-145 [facility] Basophil percentage 4.1 mmol/L 3.5-5.1 [facility] Basophil percentage 107 mmol/L 98-107 [facility] Basophils (Bld) [#/Vol] 6.7 10*3/uL 4.4-11.0 [facility] Basophils (Bld) [#/Vol] 4.3 10*3/uL 2.0-7.7 [facility] Basophils/100 WBC (Bld) 0.9 % 0-1 [facility] Basophils/100 WBC (Bld) 64.3 % 47-70 [facility] Basophils/100 WBC (Bld) 4.8 % 0-5 [facility] Chloride [Moles/Vol] 107 mmol/L 98-107 [facility] Eosinophils/100 WBC (Bld) 4.8 % 0-5 [facility] Glucose [Mass/Vol] 101 mg/dL 74-106 [facility] Comment on above: Fasting Glucose resu lt from 100 to 125 mg/dL suggests IMPAIRED HOMEOSTASIS per A.D.A. criteria. Neutrophils (Bld) [#/Vol] 4.3 10*3/uL 2.0-7.7 [facility] Neutrophils/100 WBC (Bld) 64.3 % 47-70 [facility] Potassium [Moles/Vol] 4.1 mmol/L 3.5-5.1 [facility] Sodium [Moles/Vol] 140 mmol/L 136-145 [facility] WBC (Bld) [#/Vol] 6.7 10*3/uL 4.4-11.0 [facility] Blood erythrocytes count (nu mber/volume)Ordered By: Dr. Wilks on 08-29-2022 RBC (Bld) [#/Vol] 4.08 10*6/uL 4.2-5.4 [facility] Blood hemoglobin measurement (mass/volume)Ordered By: Dr. Wilks on 08-29-2022 Hemoglobin (Bld) [Mass/Vol] 11.6 g/dL 12.0-15.0 [facility] Blood lymphocytes/100 leukoc ytesOrdered By: Dr. Wilks on 08-29-2022 Lymphocytes/100 WBC (Bld) 17.6 % 19-41 [facility] Blood monocytes/100 leukocyt esOrdered By: Dr. Wilks on 08-29-2022 Monocytes/100 WBC (Bld) 10.8 % 0-10 [facility] Blood platelet mean volumeOr dered By: Dr. Wilks on 08-29-2022 Platelet mean volume (Bld) [Entitic vol] 10.6 fL 6.2-12.0 [facility] Determination of erythrocyte mean corpuscular volume (MCV)Ordered By: Dr. Wilks on 08-29-2022 MCV (RBC) [Entitic vol] 91.4 fL 81-99 [facility] Hematocrit Auto (Bld) [Volum e fraction]Ordered By: Dr. Wilks on 08-29-2022 Hematocrit (Bld) [Volume fraction] 37.3 % 37-47 [facility] Laboratory - Chemistry and C hemistry - challengeOrdered By: Dr. Wilks on 08-29-2022 CO2 [Moles/Vol] 25.0 mmol/L 21.0-32.0 [facility] Urea nitrogen/Creatinine [Mass ratio] 19.1 mg/mg 10-20 [facility] Laboratory - Hematology and Cell countsOrdered By: Dr. Wilks on 08-29-2022 Erythrocyte distribution width (RBC) [Entitic vol] 55.7 fL 35.1-43.9 [facility] Erythrocyte distribution width (RBC) [Ratio] 16.4 % 11.6-14.6 [facility] Immature granulocytes/100 WBC (Bld) 1.600 % 0.0-0.9 [facility] Comment on above: IG% - Immature Granu locytes (promyelocytes, myelocytes and metamyelocytes) > 1% indicates that a LEFT SHIFT is Present. MCH (RBC) [Entitic mass] 28.4 pg 27.0-32.0 [facility] Nucleated RBC/100 WBC (Bld) [Ratio] 0 % 0-5 [place] Auto (RBC) [Mass/Vol]Or dered By: Dr. Wilks on 08-29-2022 MCHC (RBC) [Mass/Vol] 31.1 g/dL 32-36 [facility] No Panel InformationOrdered By: Dr. Wilks on 08-29-2022 Estimated GFR (MDRD) Amer 108 mL/min >60 [facility] Comment on above: GFR Calc Estimated GFR (MDRD) Non-Af Amer 90 mL/min >60 [facility] Comment on above: Non- GFR Calc 28.4 pg 27.0-32.0 [facility] 16.4 % 11.6-14.6 [facility] 55.7 fl 35.1-43.9 [facility] 1.600 % 0.0-0.9 [facility] 0 % 0-5 [facility] 90 mL/min >60 [facility] 108 mL/min >60 [facility] 19.1 RATIO 10-20 [facility] 25.0 mmol/L 21.0-32.0 [facility] Platelets bldOrdered By: Dr. Wilks on 08-29-2022 Platelets (Bld) [#/Vol] 331 10*3/uL 150-450 [facility] Serum or plasma calcium chay urement (mass/volume)Ordered By: Dr. Wilks on 08-29-2022 Calcium [Mass/Vol] 10.3 mg/dL 8.5-10.1 [facility] Serum or plasma creatinine m easurement (mass/volume)Ordered By: Dr. Wilks on 08-29-2022 Creatinine [Mass/Vol] 0.68 mg/dL 0.55-1.02 [facility] Comment on above: The validity of the calculated GFR & GFRAA in patients over 70 years has not been determined. Clinical correlation is essential. Serum or plasma urea nitroge n measurement (mass/volume)Ordered By: Dr. Wilks on 08-29-2022 Urea nitrogen [Mass/Vol] 13 mg/dL 7-18 [facility] Thin prep Papanicolaou smear with manual screeningOrdered By: Dr. Wilks on 08-29-2022 Thin prep Papanicolaou smear with manual screening 8 5-15 [facility] Absolute lymphocyte countOrd ered By: Dr. Wilks on 08-22-2022 Lymphocytes Auto (Unsp spec) [#/Vol] 1.23 10*3/uL 0.83-4.51 [facility] Basophil percentageOrdered B y: Dr. Wilks on 08-22-2022 Basophil percentage 95 mg/dL 74-106 [facility] Basophil percentage 140 mmol/L 136-145 [facility] Basophil percentage 4.2 mmol/L 3.5-5.1 [facility] Basophil percentage 110 mmol/L 98-107 [facility] Basophils (Bld) [#/Vol] 6.5 10*3/uL 4.4-11.0 [facility] Basophils (Bld) [#/Vol] 4.2 10*3/uL 2.0-7.7 [facility] Basophils/100 WBC (Bld) 1.1 % 0-1 [facility] Basophils/100 WBC (Bld) 65.1 % 47-70 [facility] Basophils/100 WBC (Bld) 5.6 % 0-5 [facility] Chloride [Moles/Vol] 110 mmol/L 98-107 [facility] Eosinophils/100 WBC (Bld) 5.6 % 0-5 [facility] Glucose [Mass/Vol] 95 mg/dL 74-106 [facility] Neutrophils (Bld) [#/Vol] 4.2 10*3/uL 2.0-7.7 [facility] Neutrophils/100 WBC (Bld) 65.1 % 47-70 [facility] Potassium [Moles/Vol] 4.2 mmol/L 3.5-5.1 [facility] Sodium [Moles/Vol] 140 mmol/L 136-145 [facility] WBC (Bld) [#/Vol] 6.5 10*3/uL 4.4-11.0 [facility] Blood erythrocytes count (nu mber/volume)Ordered By: Dr. Wilks on 08-22-2022 RBC (Bld) [#/Vol] 4.19 10*6/uL 4.2-5.4 [facility] Blood hemoglobin measurement (mass/volume)Ordered By: Dr. Wilks on 08-22-2022 Hemoglobin (Bld) [Mass/Vol] 12.0 g/dL 12.0-15.0 [facility] Blood lymphocytes/100 leukoc ytesOrdered By: Dr. Wilks on 08-22-2022 Lymphocytes/100 WBC (Bld) 19.0 % 19-41 [facility] Blood monocytes/100 leukocyt esOrdered By: Dr. Wilks on 08-22-2022 Monocytes/100 WBC (Bld) 8.7 % 0-10 [facility] Blood platelet mean volumeOr dered By: Dr. Wilks on 08-22-2022 Platelet mean volume (Bld) [Entitic vol] 10.5 fL 6.2-12.0 [facility] Determination of erythrocyte mean corpuscular volume (MCV)Ordered By: Dr. Wilks on 08-22-2022 MCV (RBC) [Entitic vol] 92.8 fL 81-99 [facility] Hematocrit Auto (Bld) [Volum e fraction]Ordered By: Dr. Wilks on 08-22-2022 Hematocrit (Bld) [Volume fraction] 38.9 % 37-47 [facility] Laboratory - Chemistry and C hemistry - challengeOrdered By: Dr. Wilks on 08-22-2022 CO2 [Moles/Vol] 26.0 mmol/L 21.0-32.0 [facility] Urea nitrogen/Creatinine [Mass ratio] 22.2 mg/mg 10-20 [facility] Laboratory - Hematology and Cell countsOrdered By: Dr. Wilks on 08-22-2022 Erythrocyte distribution width (RBC) [Entitic vol] 56.8 fL 35.1-43.9 [facility] Erythrocyte distribution width (RBC) [Ratio] 16.5 % 11.6-14.6 [facility] Immature granulocytes/100 WBC (Bld) 0.500 % 0.0-0.9 [facility] Comment on above: IG% - Immature Granu locytes (promyelocytes, myelocytes and metamyelocytes) > 1% indicates that a LEFT SHIFT is Present. MCH (RBC) [Entitic mass] 28.6 pg 27.0-32.0 [facility] Nucleated RBC/100 [facility]) [[facility]] 0 [facility] [Mass/Vol]Or dered By: Dr. Wilks on 08-22-2022 MCHC (RBC) [Mass/Vol] 30.8 g/dL 32-36 [facility] No Panel InformationOrdered By: Dr. Wilks on 08-22-2022 Estimated GFR (MDRD) Amer 101 mL/min >60 [facility] Comment on above: GFR Calc Estimated GFR (MDRD) Non-Af Amer 84 mL/min >60 [facility] Comment on above: Non- GFR Calc 28.6 pg 27.0-32.0 [facility] 16.5 % 11.6-14.6 [facility] 56.8 fl 35.1-43.9 [facility] 0.500 % 0.0-0.9 [facility] 0 % 0-5 [facility] 84 mL/min >60 [facility] 101 mL/min >60 [facility] 22.2 RATIO 10-20 [facility] 26.0 mmol/L 21.0-32.0 [facility] Platelets bldOrdered By: Dr. Wilks on 08-22-2022 Platelets (Bld) [#/Vol] 331 10*3/uL 150-450 [facility] Serum or plasma calcium chay urement (mass/volume)Ordered By: Dr. Wilks on 08-22-2022 Calcium [Mass/Vol] 10.9 mg/dL 8.5-10.1 [facility] Serum or plasma creatinine m easurement (mass/volume)Ordered By: Dr. Wilks on 08-22-2022 Creatinine [Mass/Vol] 0.72 mg/dL 0.55-1.02 [facility] Comment on above: The validity of the calculated GFR & GFRAA in patients over 70 years has not been determined. Clinical correlation is essential. Serum or plasma urea nitroge n measurement (mass/volume)Ordered By: Dr. Wilks on 08-22-2022 Urea nitrogen [Mass/Vol] 16 mg/dL 7-18 [facility] Thin prep Papanicolaou smear with manual screeningOrdered By: Dr. Wilks on 08-22-2022 Thin prep Papanicolaou smear with manual screening 4 5-15 [facility] Absolute lymphocyte countOrd ered By: Dr. Wilks on 08-15-2022 Lymphocytes Auto (Unsp spec) [#/Vol] 1.15 10*3/uL 0.83-4.51 [facility] Basophil percentageOrdered B y: Dr. Wilks on 08-15-2022 Basophil percentage 103 mg/dL 74-106 [facility] Basophil percentage 140 mmol/L 136-145 [facility] Basophil percentage 4.4 mmol/L 3.5-5.1 [facility] Basophil percentage 109 mmol/L 98-107 [facility] Basophils (Bld) [#/Vol] 8.2 10*3/uL 4.4-11.0 [facility] Basophils (Bld) [#/Vol] 5.9 10*3/uL 2.0-7.7 [facility] Basophils/100 WBC (Bld) 0.9 % 0-1 [facility] Basophils/100 WBC (Bld) 72.1 % 47-70 [facility] Basophils/100 WBC (Bld) 4.3 % 0-5 [facility] Chloride [Moles/Vol] 109 mmol/L 98-107 [facility] Eosinophils/100 WBC (Bld) 4.3 % 0-5 [facility] Glucose [Mass/Vol] 103 mg/dL 74-106 [facility] Comment on above: Fasting Glucose resu lt from 100 to 125 mg/dL suggests IMPAIRED HOMEOSTASIS per A.D.A. criteria. Neutrophils (Bld) [#/Vol] 5.9 10*3/uL 2.0-7.7 [facility] Neutrophils/100 WBC (Bld) 72.1 % 47-70 [facility] Potassium [Moles/Vol] 4.4 mmol/L 3.5-5.1 [facility] Sodium [Moles/Vol] 140 mmol/L 136-145 [facility] WBC (Bld) [#/Vol] 8.2 10*3/uL 4.4-11.0 [facility] Blood erythrocytes count (nu mber/volume)Ordered By: Dr. Wilks on 08-15-2022 RBC (Bld) [#/Vol] 3.99 10*6/uL 4.2-5.4 [facility] Blood hemoglobin measurement (mass/volume)Ordered By: Dr. Wilks on 08-15-2022 Hemoglobin (Bld) [Mass/Vol] 11.5 g/dL 12.0-15.0 [facility] Blood lymphocytes/100 leukoc ytesOrdered By: Dr. Wilks on 08-15-2022 Lymphocytes/100 WBC (Bld) 14.1 % 19-41 [facility] Blood monocytes/100 leukocyt esOrdered By: Dr. Wilks on 08-15-2022 Monocytes/100 WBC (Bld) 8.4 % 0-10 [facility] Blood platelet mean volumeOr dered By: Dr. Wilks on 08-15-2022 Platelet mean volume (Bld) [Entitic vol] 10.5 fL 6.2-12.0 [facility] Determination of erythrocyte mean corpuscular volume (MCV)Ordered By: Dr. Wilks on 08-15-2022 MCV (RBC) [Entitic vol] 95.0 fL 81-99 [facility] Hematocrit Auto (Bld) [Volum e fraction]Ordered By: Dr. Wilks on 08-15-2022 Hematocrit (Bld) [Volume fraction] 37.9 % 37-47 [facility] Laboratory - Chemistry and C hemistry - challengeOrdered By: Dr. Wilks on 08-15-2022 CO2 [Moles/Vol] 28.0 mmol/L 21.0-32.0 [facility] Urea nitrogen/Creatinine [Mass ratio] 25.9 mg/mg 10-20 [facility] Laboratory - Hematology and Cell countsOrdered By: Dr. Wilks on 08-15-2022 Erythrocyte distribution width (RBC) [Entitic vol] 58.8 fL 35.1-43.9 [facility] Erythrocyte distribution width (RBC) [Ratio] 16.8 % 11.6-14.6 [facility] Immature granulocytes/100 WBC (Bld) 0.200 % 0.0-0.9 [facility] Comment on above: IG% - Immature Granu locytes (promyelocytes, myelocytes and metamyelocytes) > 1% indicates that a LEFT SHIFT is Present. MCH (RBC) [Entitic mass] 28.8 pg 27.0-32.0 [facility] Nucleated RBC/100 WBC (Bld) [Ratio] 0 % 0-5 [facility] MCHC Auto (RBC) [Mass/Vol]Or dered By: Dr. Wilks on 08-15-2022 MCHC (RBC) [Mass/Vol] 30.3 g/dL 32-36 [facility] No Panel InformationOrdered By: Dr. Wilks on 08-15-2022 Estimated GFR (MDRD) Amer 99 mL/min >60 [facility] Comment on above: GFR Calc Estimated GFR (MDRD) Non-Af Amer 82 mL/min >60 [facility] Comment on above: Non- GFR Calc 28.8 pg 27.0-32.0 [facility] 16.8 % 11.6-14.6 [facility] 58.8 fl 35.1-43.9 [facility] 0.200 % 0.0-0.9 [facility] 0 % 0-5 [facility] 82 mL/min >60 [facility] 99 mL/min >60 [facility] 25.9 RATIO 10-20 [facility] 28.0 mmol/L 21.0-32.0 [facility] Platelets bldOrdered By: Dr. Wilks on 08-15-2022 Platelets (Bld) [#/Vol] 282 10*3/uL 150-450 [facility] Serum or plasma calcium chay urement (mass/volume)Ordered By: Dr. Wilks on 08-15-2022 Calcium [Mass/Vol] 11.0 mg/dL 8.5-10.1 [facility] Serum or plasma creatinine m easurement (mass/volume)Ordered By: Dr. Wilks on 08-15-2022 Creatinine [Mass/Vol] 0.73 mg/dL 0.55-1.02 [facility] Comment on above: The validity of the calculated GFR & GFRAA in patients over 70 years has not been determined. Clinical correlation is essential. Serum or plasma urea nitroge n measurement (mass/volume)Ordered By: Dr. Wilks on 08-15-2022 Urea nitrogen [Mass/Vol] 19 mg/dL 7-18 [facility] Thin prep Papanicolaou smear with manual screeningOrdered By: Dr. Wilks on 08-15-2022 Thin prep Papanicolaou smear with manual screening 3 5-15 [facility] Absolute lymphocyte countOrd ered By: Dr. Wilks on 08-08-2022 Lymphocytes Auto (Unsp spec) [#/Vol] 1.54 10*3/uL 0.83-4.51 [facility] Basophil percentageOrdered B y: Dr. Wilks on 08-08-2022 Basophil percentage 112 mg/dL 74-106 [facility] Basophil percentage 140 mmol/L 136-145 [facility] Basophil percentage 4.3 mmol/L 3.5-5.1 [facility] Basophil percentage 109 mmol/L 98-107 [facility] Basophils (Bld) [#/Vol] 8.5 10*3/uL 4.4-11.0 [facility] Basophils (Bld) [#/Vol] 5.8 10*3/uL 2.0-7.7 [facility] Basophils/100 WBC (Bld) 1.1 % 0-1 [facility] Basophils/100 WBC (Bld) 67.9 % 47-70 [facility] Basophils/100 WBC (Bld) 4.5 % 0-5 [facility] Chloride [Moles/Vol] 109 mmol/L 98-107 [facility] Eosinophils/100 WBC (Bld) 4.5 % 0-5 [facility] Glucose [Mass/Vol] 112 mg/dL 74-106 [facility] Comment on above: Fasting Glucose resu lt from 100 to 125 mg/dL suggests IMPAIRED HOMEOSTASIS per A.D.A. criteria. Neutrophils (Bld) [#/Vol] 5.8 10*3/uL 2.0-7.7 [facility] Neutrophils/100 WBC (Bld) 67.9 % 47-70 [facility] Potassium [Moles/Vol] 4.3 mmol/L 3.5-5.1 [facility] Sodium [Moles/Vol] 140 mmol/L 136-145 [facility] WBC (Bld) [#/Vol] 8.5 10*3/uL 4.4-11.0 [facility] Blood erythrocytes count (nu mber/volume)Ordered By: Dr. Wilks on 08-08-2022 RBC (Bld) [#/Vol] 4.26 10*6/uL 4.2-5.4 [facility] Blood hemoglobin measurement (mass/volume)Ordered By: Dr. Wilks on 08-08-2022 Hemoglobin (Bld) [Mass/Vol] 12.3 g/dL 12.0-15.0 [facility] Blood lymphocytes/100 leukoc ytesOrdered By: Dr. Wilks on 08-08-2022 Lymphocytes/100 WBC (Bld) 18.1 % 19-41 [facility] Blood monocytes/100 leukocyt esOrdered By: Dr. Wilks on 08-08-2022 Monocytes/100 WBC (Bld) 8.2 % 0-10 [facility] Blood platelet mean volumeOr dered By: Dr. Wilks on 08-08-2022 Platelet mean volume (Bld) [Entitic vol] 10.7 fL 6.2-12.0 [facility] Determination of erythrocyte mean corpuscular volume (MCV)Ordered By: Dr. Wilks on 08-08-2022 MCV (RBC) [Entitic vol] 92.3 fL 81-99 [facility] Hematocrit Auto (Bld) [Volum e fraction]Ordered By: Dr. Wilks on 08-08-2022 Hematocrit (Bld) [Volume fraction] 39.3 % 37-47 [facility] Laboratory - Chemistry and C hemistry - challengeOrdered By: Dr. Wilks on 08-08-2022 CO2 [Moles/Vol] 24.0 mmol/L 21.0-32.0 [facility] Urea nitrogen/Creatinine [Mass ratio] 20.1 mg/mg 10-20 [facility] Laboratory - Hematology and Cell countsOrdered By: Dr. Wilks on 08-08-2022 Erythrocyte distribution width (RBC) [Entitic vol] 57.2 fL 35.1-43.9 [facility] Erythrocyte distribution width (RBC) [Ratio] 17.0 % 11.6-14.6 [facility] Immature granulocytes/100 WBC (Bld) 0.200 % 0.0-0.9 [facility] Comment on above: IG% - Immature Granu locytes (promyelocytes, myelocytes and metamyelocytes) > 1% indicates that a LEFT SHIFT is Present. MCH (RBC) [Entitic mass] 28.9 pg 27.0-32.0 [facility] Nucleated RBC/100 WBC (Bld) [Ratio] 0 % 0-5 [facility] MCHC Auto (RBC) [Mass/Vol]Or dered By: Dr. Wilks on 08-08-2022 MCHC (RBC) [Mass/Vol] 31.3 g/dL 32-36 [facility] No Panel InformationOrdered By: Dr. Wilks on 08-08-2022 Estimated GFR (MDRD) Amer 79 mL/min >60 [facility] Comment on above: GFR Calc Estimated GFR (MDRD) Non-Af Amer 65 mL/min >60 [facility] Comment on above: Non- GFR Calc 28.9 pg 27.0-32.0 [facility] 17.0 % 11.6-14.6 [facility] 57.2 fl 35.1-43.9 [facility] 0.200 % 0.0-0.9 [facility] 0 % 0-5 [facility] 65 mL/min >60 [facility] 79 mL/min >60 [facility] 20.1 RATIO 10-20 [facility] 24.0 mmol/L 21.0-32.0 [facility] Platelets bldOrdered By: Dr. Wilks on 08-08-2022 Platelets (Bld) [#/Vol] 334 10*3/uL 150-450 [facility] Serum or plasma calcium chay urement (mass/volume)Ordered By: Dr. Wilks on 08-08-2022 Calcium [Mass/Vol] 11.5 mg/dL 8.5-10.1 [facility] Serum or plasma creatinine m easurement (mass/volume)Ordered By: Dr. Wilks on 08-08-2022 Creatinine [Mass/Vol] 0.90 mg/dL 0.55-1.02 [facility] Comment on above: The validity of the calculated GFR & GFRAA in patients over 70 years has not been determined. Clinical correlation is essential. Serum or plasma urea nitroge n measurement (mass/volume)Ordered By: Dr. Wilks on 08-08-2022 Urea nitrogen [Mass/Vol] 18 mg/dL 7-18 [facility] Thin prep Papanicolaou smear with manual screeningOrdered By: Dr. Wilks on 08-08-2022 Thin prep Papanicolaou smear with manual screening 7 5-15 [facility] Absolute lymphocyte countOrd ered By: Dr. Wilks on 08-01-2022 Lymphocytes Auto (Unsp spec) [#/Vol] 0.96 10*3/uL 0.83-4.51 [facility] Basophil percentageOrdered B y: Dr. Wilks on 08-01-2022 Basophil percentage 108 mg/dL 74-106 [facility] Basophil percentage 138 mmol/L 136-145 [facility] Basophil percentage 4.1 mmol/L 3.5-5.1 [facility] Basophil percentage 107 mmol/L 98-107 [facility] Basophils (Bld) [#/Vol] 7.3 10*3/uL 4.4-11.0 [facility] Basophils (Bld) [#/Vol] 5.2 10*3/uL 2.0-7.7 [facility] Basophils/100 WBC (Bld) 1.0 % 0-1 [facility] Basophils/100 WBC (Bld) 71.4 % 47-70 [facility] Basophils/100 WBC (Bld) 5.2 % 0-5 [facility] Chloride [Moles/Vol] 107 mmol/L 98-107 [facility] Eosinophils/100 WBC (Bld) 5.2 % 0-5 [facility] Glucose [Mass/Vol] 108 mg/dL 74-106 [facility] Comment on above: Fasting Glucose resu lt from 100 to 125 mg/dL suggests IMPAIRED HOMEOSTASIS per A.D.A. criteria. Neutrophils (Bld) [#/Vol] 5.2 10*3/uL 2.0-7.7 [facility] Neutrophils/100 WBC (Bld) 71.4 % 47-70 [facility] Potassium [Moles/Vol] 4.1 mmol/L 3.5-5.1 [facility] Sodium [Moles/Vol] 138 mmol/L 136-145 [facility] WBC (Bld) [#/Vol] 7.3 10*3/uL 4.4-11.0 [facility] Blood erythrocytes count (nu mber/volume)Ordered By: Dr. Wilks on 08-01-2022 RBC (Bld) [#/Vol] 3.94 10*6/uL 4.2-5.4 [facility] Blood hemoglobin measurement (mass/volume)Ordered By: Dr. Wilks on 08-01-2022 Hemoglobin (Bld) [Mass/Vol] 11.3 g/dL 12.0-15.0 [facility] Blood lymphocytes/100 leukoc ytesOrdered By: Dr. Wilks on 08-01-2022 Lymphocytes/100 WBC (Bld) 13.2 % 19-41 [facility] Blood monocytes/100 leukocyt esOrdered By: Dr. Wilks on 08-01-2022 Monocytes/100 WBC (Bld) 8.8 % 0-10 [facility] Blood platelet mean volumeOr dered By: Dr. Wilks on 08-01-2022 Platelet mean volume (Bld) [Entitic vol] 10.9 fL 6.2-12.0 [facility] Determination of erythrocyte mean corpuscular volume (MCV)Ordered By: Dr. Wilks on 08-01-2022 MCV (RBC) [Entitic vol] 92.9 fL 81-99 [facility] Hematocrit Auto (Bld) [Volum e fraction]Ordered By: Dr. Wilks on 08-01-2022 Hematocrit (Bld) [Volume fraction] 36.6 % 37-47 [facility] [place] Laboratory - Chemistry and C hemistry - challengeOrdered By: Dr. Wilks on 08-01-2022 CO2 [Moles/Vol] 26.0 mmol/L 21.0-32.0 [facility] Urea nitrogen/Creatinine [Mass ratio] 25.4 mg/mg 10-20 [facility] Laboratory - Hematology and Cell countsOrdered By: Dr. Wilks on 08-01-2022 Erythrocyte distribution width (RBC) [Entitic vol] 56.8 fL 35.1-43.9 [facility] Erythrocyte distribution width (RBC) [Ratio] 16.6 % 11.6-14.6 [facility] Immature granulocytes/100 WBC (Bld) 0.400 % 0.0-0.9 [facility] Comment on above: IG% - Immature Granu locytes (promyelocytes, myelocytes and metamyelocytes) > 1% indicates that a LEFT SHIFT is Present. MCH (RBC) [Entitic mass] 28.7 pg 27.0-32.0 [facility] Nucleated RBC/100 WBC (Bld) [Ratio] 0 % 0-5 [facility] MCHC Auto (RBC) [Mass/Vol]Or dered By: Dr. Wilks on 08-01-2022 MCHC (RBC) [Mass/Vol] 30.9 g/dL 32-36 [facility] No Panel InformationOrdered By: Dr. Wilks on 08-01-2022 Estimated GFR (MDRD) Amer 78 mL/min >60 [facility] Comment on above: GFR Calc Estimated GFR (MDRD) Non-Af Amer 65 mL/min >60 [facility] Comment on above: Non- GFR Calc 28.7 pg 27.0-32.0 [facility] 16.6 % 11.6-14.6 [facility] 56.8 fl 35.1-43.9 [facility] 0.400 % 0.0-0.9 [facility] 0 % 0-5 [facility] 65 mL/min >60 [facility] 78 mL/min >60 [facility] 25.4 RATIO 10-20 [facility] 26.0 mmol/L 21.0-32.0 [facility] Platelets bldOrdered By: Dr. Wilks on 08-01-2022 Platelets (Bld) [#/Vol] 313 10*3/uL 150-450 [facility] Serum or plasma calcium chay urement (mass/volume)Ordered By: Dr. Wilks on 08-01-2022 Calcium [Mass/Vol] 10.9 mg/dL 8.5-10.1 [facility] Serum or plasma creatinine m easurement (mass/volume)Ordered By: Dr. Wilks on 08-01-2022 Creatinine [Mass/Vol] 0.90 mg/dL 0.55-1.02 [facility] Comment on above: The validity of the calculated GFR & GFRAA in patients over 70 years has not been determined. Clinical correlation is essential. Serum or plasma urea nitroge n measurement (mass/volume)Ordered By: Dr. Wilks on 08-01-2022 Urea nitrogen [Mass/Vol] 23 mg/dL 7-18 [facility] Thin prep Papanicolaou smear with manual screeningOrdered By: Dr. Wilks on 08-01-2022 Thin prep Papanicolaou smear with manual screening 5 5-15 [facility] Absolute lymphocyte countOrd ered By: Dr. Wilks on 07-25-2022 Lymphocytes Auto (Unsp spec) [#/Vol] 1.60 10*3/uL 0.83-4.51 [facility] Basophil percentageOrdered B y: Dr. Wilks on 07-25-2022 Basophil percentage 105 mg/dL 74-106 [facility] Basophil percentage 139 mmol/L 136-145 [facility] Basophil percentage 4.1 mmol/L 3.5-5.1 [facility] Basophil percentage 107 mmol/L 98-107 [facility] Basophils (Bld) [#/Vol] 8.1 10*3/uL 4.4-11.0 [facility] Basophils (Bld) [#/Vol] 5.1 10*3/uL 2.0-7.7 [facility] Basophils/100 WBC (Bld) 1.0 % 0-1 [facility] Basophils/100 WBC (Bld) 62.0 % 47-70 [facility] Basophils/100 WBC (Bld) 6.9 % 0-5 [facility] Basophil percentageon 2021 Chloride [Moles/Vol] 107 mmol/L 98-107 [facility] Work Phone: Eosinophils/100 WBC (Bld) 6.9 % 0-5 [facility] Work Phone: Glucose [Mass/Vol] 105 mg/dL 74-106 [facility] Work Phone: Comment on above: Fasting Glucose resu lt from 100 to 125 mg/dL suggests IMPAIRED HOMEOSTASIS per A.D.A. criteria. Neutrophils (Bld) [#/Vol] 5.1 10*3/uL 2.0-7.7 [facility] Work Phone: Neutrophils/100 WBC (Bld) 62.0 % 47-70 [facility] Work Phone: Potassium [Moles/Vol] 4.1 mmol/L 3.5-5.1 [facility] Work Phone: Sodium [Moles/Vol] 139 mmol/L 136-145 [facility] Work Phone: WBC (Bld) [#/Vol] 8.1 10*3/uL 4.4-11.0 [facility] Work Phone: Blood erythrocytes count (nu mber/volume)Ordered By: Dr. Wilks on 07-25-2022 RBC (Bld) [#/Vol] 4.01 10*6/uL 4.2-5.4 [facility] Blood hemoglobin measurement (mass/volume)Ordered By: Dr. Wilks on 07-25-2022 Hemoglobin (Bld) [Mass/Vol] 11.8 g/dL 12.0-15.0 [facility] Blood lymphocytes/100 leukoc ytesOrdered By: Dr. Wilks on 07-25-2022 Lymphocytes/100 WBC (Bld) 19.7 % 19-41 [facility] Blood monocytes/100 leukocyt esOrdered By: Dr. Wilks on 07-25-2022 Monocytes/100 WBC (Bld) 10.0 % 0-10 [facility] Blood platelet mean volumeOr dered By: Dr. Wilks on 07-25-2022 Platelet mean volume (Bld) [Entitic vol] 10.5 fL 6.2-12.0 [facility] Determination of erythrocyte mean corpuscular volume (MCV)Ordered By: Dr. Wilks on 07-25-2022 MCV (RBC) [Entitic vol] 93.0 fL 81-99 [facility] Hematocrit Auto (Bld) [Volum e fraction]Ordered By: Dr. Wilks on 07-25-2022 Hematocrit (Bld) [Volume fraction] 37.3 % 37-47 [facility] Laboratory - Chemistry and C hemistry - challengeon 07-25-2022 CO2 [Moles/Vol] 27.0 mmol/L 21.0-32.0 [facility] Work Phone: Urea nitrogen/Creatinine [Mass ratio] 29.8 mg/mg 10-20 [facility] Work Phone: Laboratory - Hematology and Cell countson 07-25-2022 Erythrocyte distribution width (RBC) [Entitic vol] 55.9 fL 35.1-43.9 [facility] Work Phone: Erythrocyte distribution width (RBC) [Ratio] 16.5 % 11.6-14.6 [facility] Work Phone: Immature granulocytes/100 WBC (Bld) 0.400 % 0.0-0.9 [facility] Work Phone: Comment on above: IG% - Immature Granu locytes (promyelocytes, myelocytes and metamyelocytes) > 1% indicates that a LEFT SHIFT is Present. MCH (RBC) [Entitic mass] 29.4 pg 27.0-32.0 [facility] Work Phone: Nucleated RBC/100 WBC (Bld) [Ratio] 0 % 0-5 [facility] Work Phone: MCHC Auto (RBC) [Mass/Vol]Or dered By: Dr. Wilks on 07-25-2022 MCHC (RBC) [Mass/Vol] 31.6 g/dL 32-36 [facility] No Panel Informationon 07-25 Estimated GFR (MDRD) Amer 75 mL/min >60 [facility] Work Phone: Comment on above: GFR Calc Estimated GFR (MDRD) Non-Af Amer 62 mL/min >60 [facility] Work Phone: Comment on above: Non- GFR Calc No Panel InformationOrdered By: Dr. Wilks on 07-25-2022 29.4 pg 27.0-32.0 [facility] 16.5 % 11.6-14.6 [facility] 55.9 fl 35.1-43.9 [facility] 0.400 % 0.0-0.9 [facility] 0 % 0-5 [facility] 62 mL/min >60 [facility] 75 mL/min >60 [facility] 29.8 RATIO 10-20 [facility] 27.0 mmol/L 21.0-32.0 [facility] Platelets bldOrdered By: Dr. Wilks on 07-25-2022 Platelets (Bld) [#/Vol] 343 10*3/uL 150-450 [facility] Serum or plasma calcium chay urement (mass/volume)Ordered By: Dr. Wilks on 07-25-2022 Calcium [Mass/Vol] 11.2 mg/dL 8.5-10.1 [facility] Serum or plasma creatinine m easurement (mass/volume)Ordered By: Dr. Wilks on 07-25-2022 Creatinine [Mass/Vol] 0.94 mg/dL 0.55-1.02 [facility] Comment on above: The validity of the calculated GFR & GFRAA in patients over 70 years has not been determined. Clinical correlation is essential. Serum or plasma urea nitroge n measurement (mass/volume)Ordered By: Dr. Wilks on 07-25-2022 Urea nitrogen [Mass/Vol] 28 mg/dL 7-18 [facility] Thin prep Papanicolaou smear with manual screeningOrdered By: Dr. Wilks on 07-25-2022 Thin prep Papanicolaou smear with manual screening 5 5-15 [facility] Absolute lymphocyte countOrd ered By: Dr. Wilks on 07-18-2022 Lymphocytes Auto (Unsp spec) [#/Vol] 1.26 10*3/uL 0.83-4.51 [facility] Basophil percentageOrdered B y: Dr. Wilks on 07-18-2022 Basophil percentage 112 mg/dL 74-106 [facility] Basophil percentage 137 mmol/L 136-145 [facility] Basophil percentage 4.1 mmol/L 3.5-5.1 [facility] Basophil percentage 105 mmol/L 98-107 [facility] Basophils (Bld) [#/Vol] 7.3 10*3/uL 4.4-11.0 [facility] Basophils (Bld) [#/Vol] 4.9 10*3/uL 2.0-7.7 [facility] Basophils/100 WBC (Bld) 1.1 % 0-1 [facility] Basophils/100 WBC (Bld) 67.6 % 47-70 [facility] Basophils/100 WBC (Bld) 5.2 % 0-5 [facility] Basophil percentageon 2021 Chloride [Moles/Vol] 105 mmol/L 98-107 [facility] Work Phone: Eosinophils/100 WBC (Bld) 5.2 % 0-5 [facility] Work Phone: Glucose [Mass/Vol] 112 mg/dL 74-106 [facility] Work Phone: Comment on above: Fasting Glucose resu lt from 100 to 125 mg/dL suggests IMPAIRED HOMEOSTASIS per A.D.A. criteria. Neutrophils (Bld) [#/Vol] 4.9 10*3/uL 2.0-7.7 [facility] Work Phone: Neutrophils/100 WBC (Bld) 67.6 % 47-70 [facility] Work Phone: Potassium [Moles/Vol] 4.1 mmol/L 3.5-5.1 [facility] Work Phone: Sodium [Moles/Vol] 137 mmol/L 136-145 [facility] Work Phone: WBC (Bld) [#/Vol] 7.3 10*3/uL 4.4-11.0 [facility] Work Phone: Blood erythrocytes count (nu mber/volume)Ordered By: Dr. Wilks on 07-18-2022 RBC (Bld) [#/Vol] 3.86 10*6/uL 4.2-5.4 [facility] Blood hemoglobin measurement (mass/volume)Ordered By: Dr. Wilks on 07-18-2022 Hemoglobin (Bld) [Mass/Vol] 11.0 g/dL 12.0-15.0 [facility] Blood lymphocytes/100 leukoc ytesOrdered By: Dr. Wilks on 07-18-2022 Lymphocytes/100 WBC (Bld) 17.2 % 19-41 [facility] Blood monocytes/100 leukocyt esOrdered By: Dr. Wilks on 07-18-2022 Monocytes/100 WBC (Bld) 8.5 % 0-10 [facility] Blood platelet mean volumeOr dered By: Dr. Wilks on 07-18-2022 Platelet mean volume (Bld) [Entitic vol] 10.0 fL 6.2-12.0 [facility] Determination of erythrocyte mean corpuscular volume (MCV)Ordered By: Dr. Wilks on 07-18-2022 MCV (RBC) [Entitic vol] 93.0 fL 81-99 [facility] Hematocrit Auto (Bld) [Volum e fraction]Ordered By: Dr. Wilks on 07-18-2022 Hematocrit (Bld) [Volume fraction] 35.9 % 37-47 [facility] Laboratory - Chemistry and C hemistry - challengeon 07-18-2022 CO2 [Moles/Vol] 26.0 mmol/L 21.0-32.0 [facility] Work Phone: Urea nitrogen/Creatinine [Mass ratio] 16.4 mg/mg 10-20 [facility] Work Phone: Laboratory - Hematology and Cell countson 07-18-2022 Erythrocyte distribution width (RBC) [Entitic vol] 55.2 fL 35.1-43.9 [facility] Work Phone: Erythrocyte distribution width (RBC) [Ratio] 16.2 % 11.6-14.6 [facility] Work Phone: Immature granulocytes/100 WBC (Bld) 0.400 % 0.0-0.9 [facility] Work Phone: Comment on above: IG% - Immature Granu locytes (promyelocytes, myelocytes and metamyelocytes) > 1% indicates that a LEFT SHIFT is Present. MCH (RBC) [Entitic mass] 28.5 pg 27.0-32.0 [facility] Work Phone: Nucleated RBC/100 WBC (Bld) [Ratio] 0 % 0-5 [facility] Work Phone: MCHC Auto (RBC) [Mass/Vol]Or dered By: Dr. Wilks on 07-18-2022 MCHC (RBC) [Mass/Vol] 30.6 g/dL 32-36 [facility] No Panel Informationon 07-18 Estimated GFR (MDRD) Amer 77 mL/min >60 [facility] Work Phone: Comment on above: GFR Calc Estimated GFR (MDRD) Non-Af Amer 64 mL/min >60 [facility] Work Phone: Comment on above: Non- GFR Calc No Panel InformationOrdered By: Dr. Wilks on 07-18-2022 28.5 pg 27.0-32.0 [facility] 16.2 % 11.6-14.6 [facility] 55.2 fl 35.1-43.9 [facility] 0.400 % 0.0-0.9 [facility] 0 % 0-5 [facility] 64 mL/min >60 [facility] 77 mL/min >60 [facility] 16.4 RATIO 10-20 [facility] 26.0 mmol/L 21.0-32.0 [facility] Platelets bldOrdered By: Dr. Wilks on 07-18-2022 Platelets (Bld) [#/Vol] 373 10*3/uL 150-450 [facility] Serum or plasma calcium chay urement (mass/volume)Ordered By: Dr. Wilks on 07-18-2022 Calcium [Mass/Vol] 10.8 mg/dL 8.5-10.1 [facility] Serum or plasma creatinine m easurement (mass/volume)Ordered By: Dr. Wilks on 07-18-2022 Creatinine [Mass/Vol] 0.91 mg/dL 0.55-1.02 [facility] Comment on above: The validity of the calculated GFR & GFRAA in patients over 70 years has not been determined. Clinical correlation is essential. Serum or plasma urea nitroge n measurement (mass/volume)Ordered By: Dr. Wilks on 07-18-2022 Urea nitrogen [Mass/Vol] 15 mg/dL 7-18 [facility] Thin prep Papanicolaou smear with manual screeningOrdered By: Dr. Wilks on 07-18-2022 Thin prep Papanicolaou smear with manual screening 6 5-15 [facility] Absolute lymphocyte countOrd ered By: Dr. Wilks on 07-11-2022 Lymphocytes Auto (Unsp spec) [#/Vol] 1.11 10*3/uL 0.83-4.51 [facility] Basophil percentageOrdered B y: Dr. Wilks on 07-11-2022 Basophil percentage 100 mg/dL 74-106 [facility] Basophil percentage 142 mmol/L 136-145 [facility] Basophil percentage 3.6 mmol/L 3.5-5.1 [facility] Basophil percentage 114 mmol/L 98-107 [facility] Basophils (Bld) [#/Vol] 6.9 10*3/uL 4.4-11.0 [facility] Basophils (Bld) [#/Vol] 4.8 10*3/uL 2.0-7.7 [facility] Basophils/100 WBC (Bld) 0.7 % 0-1 [facility] Basophils/100 WBC (Bld) 69.7 % 47-70 [facility] Basophils/100 WBC (Bld) 4.2 % 0-5 [facility] Basophil percentageon 2021 Chloride [Moles/Vol] 114 mmol/L 98-107 [facility] Work Phone: Eosinophils/100 WBC (Bld) 4.2 % 0-5 [facility] Work Phone: Glucose [Mass/Vol] 100 mg/dL 74-106 [facility] Work Phone: Comment on above: Fasting Glucose resu lt from 100 to 125 mg/dL suggests IMPAIRED HOMEOSTASIS per A.D.A. criteria. Neutrophils (Bld) [#/Vol] 4.8 10*3/uL 2.0-7.7 [facility] Work Phone: Neutrophils/100 WBC (Bld) 69.7 % 47-70 [facility] Work Phone: Potassium [Moles/Vol] 3.6 mmol/L 3.5-5.1 [facility] Work Phone: Sodium [Moles/Vol] 142 mmol/L 136-145 [facility] Work Phone: WBC (Bld) [#/Vol] 6.9 10*3/uL 4.4-11.0 [facility] Work Phone: Blood erythrocytes count (nu mber/volume)Ordered By: Dr. Wilks on 07-11-2022 RBC (Bld) [#/Vol] 3.30 10*6/uL 4.2-5.4 [facility] Blood hemoglobin measurement (mass/volume)Ordered By: Dr. Wilks on 07-11-2022 Hemoglobin (Bld) [Mass/Vol] 9.7 g/dL 12.0-15.0 [facility] Blood lymphocytes/100 leukoc ytesOrdered By: Dr. Wilks on 07-11-2022 Lymphocytes/100 WBC (Bld) 16.1 % 19-41 [facility] Blood monocytes/100 leukocyt esOrdered By: Dr. Wilks on 07-11-2022 Monocytes/100 WBC (Bld) 8.9 % 0-10 [facility] Blood platelet mean volumeOr dered By: Dr. Wilks on 07-11-2022 Platelet mean volume (Bld) [Entitic vol] 10.0 fL 6.2-12.0 [facility] Determination of erythrocyte mean corpuscular volume (MCV)Ordered By: Dr. Wilks on 07-11-2022 MCV (RBC) [Entitic vol] 94.2 fL 81-99 [facility] Hematocrit Auto (Bld) [Volum e fraction]Ordered By: Dr. Wilks on 07-11-2022 Hematocrit (Bld) [Volume fraction] 31.1 % 37-47 [facility] Laboratory - Chemistry and C hemistry - challengeon 07-11-2022 CO2 [Moles/Vol] 26.0 mmol/L 21.0-32.0 [facility] Work Phone: Urea nitrogen/Creatinine [Mass ratio] 10.1 mg/mg 10-20 [facility] Work Phone: Laboratory - Hematology and Cell countson 07-11-2022 Erythrocyte distribution width (RBC) [Entitic vol] 54.6 fL 35.1-43.9 [facility] Work Phone: Erythrocyte distribution width (RBC) [Ratio] 15.9 % 11.6-14.6 [facility] Work Phone: Immature granulocytes/100 WBC (Bld) 0.400 % 0.0-0.9 [facility] Work Phone: Comment on above: IG% - Immature Granu locytes (promyelocytes, myelocytes and metamyelocytes) > 1% indicates that a LEFT SHIFT is Present. MCH (RBC) [Entitic mass] 29.4 pg 27.0-32.0 [facility] Work Phone: Nucleated RBC/100 WBC (Bld) [Ratio] 0 % 0-5 [facility] Work Phone: MCHC Auto (RBC) [Mass/Vol]Or dered By: Dr. Wilks on 07-11-2022 MCHC (RBC) [Mass/Vol] 31.2 g/dL 32-36 [facility] No Panel Informationon 07-11 Estimated GFR (MDRD) Amer 126 mL/min >60 [facility] Work Phone: Comment on above: GFR Calc Estimated GFR (MDRD) Non-Af Amer 105 mL/min >60 [facility] Work Phone: Comment on above: Non- GFR Calc No Panel InformationOrdered By: Dr. Wilks on 07-11-2022 29.4 pg 27.0-32.0 [facility] 15.9 % 11.6-14.6 [facility] 54.6 fl 35.1-43.9 [facility] 0.400 % 0.0-0.9 [facility] 0 % 0-5 [facility] 105 mL/min >60 [facility] 126 mL/min >60 [facility] 10.1 RATIO 10-20 [facility] 26.0 mmol/L 21.0-32.0 [facility] Platelets bldOrdered By: Dr. Wilks on 07-11-2022 Platelets (Bld) [#/Vol] 325 10*3/uL 150-450 [facility] Serum or plasma calcium chay urement (mass/volume)Ordered By: Dr. Wilks on 07-11-2022 Calcium [Mass/Vol] 10.1 mg/dL 8.5-10.1 [facility] Serum or plasma creatinine m easurement (mass/volume)Ordered By: Dr. Wilks on 07-11-2022 Creatinine [Mass/Vol] 0.60 mg/dL 0.55-1.02 [facility] Comment on above: The validity of the calculated GFR & GFRAA in patients over 70 years has not been determined. Clinical correlation is essential. Serum or plasma urea nitroge n measurement (mass/volume)Ordered By: Dr. Wilks on 07-11-2022 Urea nitrogen [Mass/Vol] 6 mg/dL 7-18 [facility] Thin prep Papanicolaou smear with manual screeningOrdered By: Dr. Wilks on 07-11-2022 Thin prep Papanicolaou smear with manual screening 2 -15 [facility] Absolute lymphocyte countOrd ered By: Dr. Issa on 07-10-2022 Lymphocytes Auto (Unsp spec) [#/Vol] 1.64 10*3/uL 0.83-4.51 [facility] Basophil percentageOrdered B y: Dr. Issa on 07-10-2022 Basophil percentage 78 mg/dL 74-106 [facility] Basophil percentage 6.4 g/dL 6.4-8.2 [facility] Basophil percentage 0.30 mg/dL 0.20-1.00 [facility] Basophil percentage 145 mmol/L 136-145 [facility] Basophil percentage 3.5 mmol/L 3.5-5.1 [facility] Basophil percentage 116 mmol/L 98-107 [facility] Basophils (Bld) [#/Vol] 6.5 10*3/uL 4.4-11.0 [facility] Basophils (Bld) [#/Vol] 3.8 10*3/uL 2.0-7.7 [facility] Basophils/100 WBC (Bld) 0.8 % 0-1 [facility] Basophils/100 WBC (Bld) 58.0 % 47-70 [facility] Basophils/100 WBC (Bld) 4.9 % 0-5 [facility] Basophil percentageon 2021 Bilirubin [Mass/Vol] 0.30 mg/dL 0.20-1.00 [facility] Work Phone: Comment on above: For patients on eltr ombopag therapy, use of Dimension [place] TBIL is not recommended. Chloride [Moles/Vol] 116 mmol/L 98-107 [facility] Work Phone: Eosinophils/100 WBC (Bld) 4.9 % 0-5 [facility] Work Phone: Glucose [Mass/Vol] 78 mg/dL 74-106 [facility] Work Phone: Neutrophils (Bld) [#/Vol] 3.8 10*3/uL 2.0-7.7 [facility] Work Phone: Neutrophils/100 WBC (Bld) 58.0 % 47-70 [facility] Work Phone: Potassium [Moles/Vol] 3.5 mmol/L 3.5-5.1 [facility] Work Phone: Protein [Mass/Vol] 6.4 g/dL 6.4-8.2 [facility] Work Phone: Sodium [Moles/Vol] 145 mmol/L 136-145 [facility] Work Phone: WBC (Bld) [#/Vol] 6.5 10*3/uL 4.4-11.0 [facility] Work Phone: Blood erythrocytes count (nu mber/volume)Ordered By: Dr. Issa on 07-10-2022 RBC (Bld) [#/Vol] 3.20 10*6/uL 4.2-5.4 [facility] Blood hemoglobin measurement (mass/volume)Ordered By: Dr. Issa on 07-10-2022 Hemoglobin (Bld) [Mass/Vol] 9.4 g/dL 12.0-15.0 [facility] Blood lymphocytes/100 leukoc ytesOrdered By: Dr. Issa on 07-10-2022 Lymphocytes/100 WBC (Bld) 25.2 % 19-41 [facility] Blood monocytes/100 leukocyt esOrdered By: Dr. Issa on 07-10-2022 Monocytes/100 WBC (Bld) 10.6 % 0-10 [facility] Blood platelet mean volumeOr dered By: Dr. Issa on 07-10-2022 Platelet mean volume (Bld) [Entitic vol] 9.7 fL 6.2-12.0 [facility] COVID-19 virus antigen assay Ordered By: Dr. Marti on 07-10-2022 SARS-CoV-2 (COVID-19) Ag IA.rapid Ql (Resp) [facility] Determination of erythrocyte mean corpuscular volume (MCV)Ordered By: Dr. Issa on 07-10-2022 MCV (RBC) [Entitic vol] 93.8 fL 81-99 [facility] Hematocrit Auto (Bld) [Volum e fraction]Ordered By: Dr. Issa on 07-10-2022 Hematocrit (Bld) [Volume fraction] 30.0 % 37-47 [facility] Laboratory - Chemistry and C hemistry - challengeon 07-10-2022 ALP [Catalytic activity/Vol] 51 U/L 45-117 [facility] Work Phone: ALT [Catalytic activity/Vol] 14 U/L 13-56 [facility] Work Phone: CO2 [Moles/Vol] 25.0 mmol/L 21.0-32.0 [facility] Work Phone: Globulin (S) [Mass/Vol] 4.0 g/dL 2.2-4.2 [facility] Work Phone: Urea nitrogen/Creatinine [Mass ratio] 10.3 mg/mg 10-20 [facility] Work Phone: Laboratory - Hematology and Cell countson 07-10-2022 Erythrocyte distribution width (RBC) [Entitic vol] 54.3 fL 35.1-43.9 [facility] Work Phone: Erythrocyte distribution width (RBC) [Ratio] 15.8 % 11.6-14.6 [facility] Work Phone: Immature granulocytes/100 WBC (Bld) 0.500 % 0.0-0.9 [facility] [facility] Work Phone: Comment on above: IG% - Immature Granu locytes (promyelocytes, myelocytes and metamyelocytes) > 1% indicates that a LEFT SHIFT is Present. MCH (RBC) [Entitic mass] 29.4 pg 27.0-32.0 [facility] Work Phone: Nucleated RBC/100 WBC (Bld) [Ratio] 0 % 0-5 [facility] Work Phone: MCHC Auto (RBC) [Mass/Vol]Or dered By: Dr. Issa on 07-10-2022 MCHC (RBC) [Mass/Vol] 31.3 g/dL 32-36 [facility] No Panel Informationon 07-10 Estimated Creatinine Clearance Calc 52.64 ml/min [facility] Work Phone: Estimated GFR (MDRD) Amer 109 mL/min >60 [facility] Work Phone: Comment on above: GFR Calc Estimated GFR (MDRD) Non-Af Amer 90 mL/min >60 [facility] Work Phone: Comment on above: Non- GFR Calc No Panel InformationOrdered By: Dr. Issa on 07-10-2022 29.4 pg 27.0-32.0 [facility] 15.8 % 11.6-14.6 [facility] 54.3 fl 35.1-43.9 [facility] 0.500 % 0.0-0.9 [facility] 0 % 0-5 [facility] 90 mL/min >60 [facility] 109 mL/min >60 [facility] 52.64 ml/min [facility] 10.3 RATIO 10-20 [facility] 4.0 g/dL 2.2-4.2 [facility] 51 U/L 45-117 [facility] 14 U/L 13-56 [facility] 25.0 mmol/L 21.0-32.0 [facility] Platelets bldOrdered By: Dr. Issa on 07-10-2022 Platelets (Bld) [#/Vol] 303 10*3/uL 150-450 [facility] Serum or plasma albumin chay urement (mass/volume)Ordered By: Dr. Issa on 07-10-2022 Albumin [Mass/Vol] 2.4 g/dL 3.2-5.0 [facility] Serum or plasma albumin/glob ulin mass ratioOrdered By: Dr. Issa on 07-10-2022 Albumin/Globulin [Mass ratio] 0.6 {ratio} 0.9-2.4 [facility] Serum or plasma calcium chay urement (mass/volume)Ordered By: Dr. Issa on 07-10-2022 Calcium [Mass/Vol] 9.7 mg/dL 8.5-10.1 [facility] Serum or plasma creatinine m easurement (mass/volume)Ordered By: Dr. Issa on 07-10-2022 Creatinine [Mass/Vol] 0.68 mg/dL 0.55-1.02 [facility] Comment on above: The validity of the calculated GFR & GFRAA in patients over 70 years has not been determined. Clinical correlation is essential. Serum or plasma urea nitroge n measurement (mass/volume)Ordered By: Dr. Issa on 07-10-2022 Urea nitrogen [Mass/Vol] 7 mg/dL 7-18 [facility] Thin prep Papanicolaou smear with manual screeningOrdered By: Dr. Issa on 07-10-2022 Thin prep Papanicolaou smear with manual screening 11 U/L 15-37 [facility] Thin prep Papanicolaou smear with manual screening 4 5-15 [facility] Absolute lymphocyte counton 07-08-2022 Lymphocytes Auto (Unsp spec) [#/Vol] 1.16 10*3/uL 0.83-4.51 [facility] Work Phone: Basophil percentageon 2021 Basophils/100 WBC (Bld) 0.8 % 0-1 [facility] Work Phone: Bilirubin [Mass/Vol] 0.20 mg/dL 0.20-1.00 [facility] Work Phone: Comment on above: For patients on eltr ombopag therapy, use of Dimension [place] TBIL is not recommended. Chloride [Moles/Vol] 107 mmol/L 98-107 [facility] Work Phone: Eosinophils/100 WBC (Bld) 2.6 % 0-5 [facility] Work Phone: Glucose [Mass/Vol] 90 mg/dL 74-106 [facility] Work Phone: Neutrophils (Bld) [#/Vol] 5.8 10*3/uL 2.0-7.7 [facility] Work Phone: Neutrophils/100 WBC (Bld) 73.1 % 47-70 [facility] Work Phone: Potassium [Moles/Vol] 4.1 mmol/L 3.5-5.1 [facility] Work Phone: Protein [Mass/Vol] 7.5 g/dL 6.4-8.2 [facility] Work Phone: Sodium [Moles/Vol] 139 mmol/L 136-145 [facility] Work Phone: WBC (Bld) [#/Vol] 8.0 10*3/uL 4.4-11.0 [facility] Work Phone: Blood erythrocytes count (nu mber/volume)on 07-08-2022 RBC (Bld) [#/Vol] 3.75 10*6/uL 4.2-5.4 [facility] Work Phone: Blood hemoglobin measurement (mass/volume)on 07-08-2022 Hemoglobin (Bld) [Mass/Vol] 10.7 g/dL 12.0-15.0 [facility] Work Phone: Blood lymphocytes/100 leukoc yteson 07-08-2022 Lymphocytes/100 WBC (Bld) 14.5 % 19-41 [facility] Work Phone: Blood monocytes/100 leukocyt eson 07-08-2022 Monocytes/100 WBC (Bld) 8.6 % 0-10 [facility] Work Phone: Blood platelet mean volumeon 07-08-2022 Platelet mean volume (Bld) [Entitic vol] 9.6 fL 6.2-12.0 [facility] Work Phone: Determination of erythrocyte mean corpuscular volume (MCV)on 07-08-2022 MCV (RBC) [Entitic vol] 93.1 fL 81-99 [facility] Work Phone: Hematocrit Auto (Bld) [Volum e fraction]on 07-08-2022 Hematocrit (Bld) [Volume fraction] 34.9 % 37-47 [facility] Work Phone: Laboratory - Chemistry and C hemistry - challengeon 07-08-2022 ALP [Catalytic activity/Vol] 63 U/L 45-117 [facility] Work Phone: ALT [Catalytic activity/Vol] 17 U/L 13-56 [facility] Work Phone: CO2 [Moles/Vol] 26.0 mmol/L 21.0-32.0 [facility] Work Phone: Globulin (S) [Mass/Vol] 4.8 g/dL 2.2-4.2 [facility] Work Phone: Urea nitrogen/Creatinine [Mass ratio] 22.0 mg/mg 10-20 [facility] Work Phone: Laboratory - Hematology and Cell countson 07-08-2022 Erythrocyte distribution width (RBC) [Entitic vol] 53.6 fL 35.1-43.9 [facility] Work Phone: Erythrocyte distribution width (RBC) [Ratio] 15.7 % 11.6-14.6 [facility] Work Phone: Immature granulocytes/100 WBC (Bld) 0.400 % 0.0-0.9 [facility] Work Phone: Comment on above: IG% - Immature Granu locytes (promyelocytes, myelocytes and metamyelocytes) > 1% indicates that a LEFT SHIFT is Present. MCH (RBC) [Entitic mass] 28.5 pg 27.0-32.0 [facility] Work Phone: Nucleated RBC/100 WBC (Bld) [Ratio] 0 % 0-5 [facility] Work Phone: MCHC Auto (RBC) [Mass/Vol]on 07-08-2022 MCHC (RBC) [Mass/Vol] 30.7 g/dL 32-36 [facility] Work Phone: No Panel Informationon 07-08 Estimated Creatinine Clearance Calc 57.09 ml/min [facility] Work Phone: Estimated GFR (MDRD) Amer 94 mL/min >60 [facility] Work Phone: Comment on above: GFR Calc Estimated GFR (MDRD) Non-Af Amer 77 mL/min >60 [facility] Work Phone: Comment on above: Non- GFR Calc Platelets bldon 07-08-2022 Platelets (Bld) [#/Vol] 356 10*3/uL 150-450 [facility] Work Phone: Serum or plasma albumin chay urement (mass/volume)on 07-08-2022 Albumin [Mass/Vol] 2.7 g/dL 3.2-5.0 [facility] Work Phone: Serum or plasma albumin/glob ulin mass ratioon 07-08-2022 Albumin/Globulin [Mass ratio] 0.6 {ratio} 0.9-2.4 [facility] Work Phone: Serum or plasma calcium chay urement (mass/volume)on 07-08-2022 Calcium [Mass/Vol] 10.5 mg/dL 8.5-10.1 [facility] Work Phone: Serum or plasma creatinine m easurement (mass/volume)on 07-08-2022 Creatinine [Mass/Vol] 0.77 mg/dL 0.55-1.02 [facility] Work Phone: Comment on above: The validity of the calculated GFR & GFRAA in patients over 70 years has not been determined. Clinical correlation is essential. Serum or plasma urea nitroge n measurement (mass/volume)on 07-08-2022 Urea nitrogen [Mass/Vol] 17 mg/dL 7-18 [facility] Work Phone: Thin prep Papanicolaou smear with manual screeningon 07-08-2022 Thin prep Papanicolaou smear with manual screening 9 U/L 15-37 [facility] Work Phone: Thin prep Papanicolaou smear with manual screening 6 5-15 [facility] Work Phone: Absolute lymphocyte countOrd ered By: Dr. Wilks on 07-03-2022 Lymphocytes Auto (Unsp spec) [#/Vol] 1.36 10*3/uL 0.83-4.51 [facility] Basophil percentageOrdered B y: Dr. Wilks on 07-03-2022 Basophil percentage 105 mg/dL 74-106 [facility] Basophil percentage 136 mmol/L 136-145 [facility] Basophil percentage 4.2 mmol/L 3.5-5.1 [facility] Basophil percentage 104 mmol/L 98-107 [facility] Basophils (Bld) [#/Vol] 10.6 10*3/uL 4.4-11.0 [facility] Basophils (Bld) [#/Vol] 7.9 10*3/uL 2.0-7.7 [facility] Basophils/100 WBC (Bld) 0.7 % 0-1 [facility] Basophils/100 WBC (Bld) 74.6 % 47-70 [facility] Basophils/100 WBC (Bld) 2.6 % 0-5 [facility] Basophil percentageon 2021 Chloride [Moles/Vol] 104 mmol/L 98-107 [facility] Work Phone: Eosinophils/100 WBC (Bld) 2.6 % 0-5 [facility] Work Phone: Glucose [Mass/Vol] 105 mg/dL 74-106 [facility] Work Phone: Comment on above: Fasting Glucose resu lt from 100 to 125 mg/dL suggests IMPAIRED HOMEOSTASIS per A.D.A. criteria. Neutrophils (Bld) [#/Vol] 7.9 10*3/uL 2.0-7.7 [facility] Work Phone: Neutrophils/100 WBC (Bld) 74.6 % 47-70 [facility] Work Phone: Potassium [Moles/Vol] 4.2 mmol/L 3.5-5.1 [facility] Work Phone: Sodium [Moles/Vol] 136 mmol/L 136-145 [facility] Work Phone: WBC (Bld) [#/Vol] 10.6 10*3/uL 4.4-11.0 [facility] Work Phone: Blood erythrocytes count (nu mber/volume)Ordered By: Dr. Wilks on 07-03-2022 RBC (Bld) [#/Vol] 3.65 10*6/uL 4.2-5.4 [facility] Blood hemoglobin measurement (mass/volume)Ordered By: Dr. Wilks on 07-03-2022 Hemoglobin (Bld) [Mass/Vol] 10.6 g/dL 12.0-15.0 [facility] Blood lymphocytes/100 leukoc ytesOrdered By: Dr. Wilks on 07-03-2022 Lymphocytes/100 WBC (Bld) 12.8 % 19-41 [facility] Blood monocytes/100 leukocyt esOrdered By: Dr. Wilks on 07-03-2022 Monocytes/100 WBC (Bld) 8.3 % 0-10 [facility] Blood platelet mean volumeOr dered By: Dr. Wilks on 07-03-2022 Platelet mean volume (Bld) [Entitic vol] 10.5 fL 6.2-12.0 [facility] Determination of erythrocyte mean corpuscular volume (MCV)Ordered By: Dr. Wilks on 07-03-2022 MCV (RBC) [Entitic vol] 92.6 fL 81-99 [facility] Hematocrit Auto (Bld) [Volum e fraction]Ordered By: Dr. Wilks on 07-03-2022 Hematocrit (Bld) [Volume fraction] 33.8 % 37-47 [facility] Laboratory - Chemistry and C hemistry - challengeon 07-03-2022 CO2 [Moles/Vol] 25.0 mmol/L 21.0-32.0 [facility] Work Phone: Magnesium [Mass/Vol] 2.6 mg/dL 1.6-2.6 [facility] Work Phone: Urea nitrogen/Creatinine [Mass ratio] 19.8 mg/mg 10-20 [facility] Work Phone: Laboratory - Hematology and Cell countson 07-03-2022 Erythrocyte distribution width (RBC) [Entitic vol] 54.2 fL 35.1-43.9 [facility] Work Phone: Erythrocyte distribution width (RBC) [Ratio] 15.9 % 11.6-14.6 [facility] Work Phone: Immature granulocytes/100 WBC (Bld) 1.000 % 0.0-0.9 [facility] Work Phone: Comment on above: IG% - Immature Granu locytes (promyelocytes, myelocytes and metamyelocytes) > 1% indicates that a LEFT SHIFT is Present. MCH (RBC) [Entitic mass] 29.0 pg 27.0-32.0 [facility] Work Phone: Nucleated RBC/100 WBC (Bld) [Ratio] 0 % 0-5 [facility] Work Phone: MCHC Auto (RBC) [Mass/Vol]Or dered By: Dr. Wilks on 07-03-2022 MCHC (RBC) [Mass/Vol] 31.4 g/dL 32-36 [facility] No Panel Informationon 07-03 Estimated GFR (MDRD) Amer 83 mL/min >60 [facility] Work Phone: Comment on above: GFR Calc Estimated GFR (MDRD) Non-Af Amer 68 mL/min >60 [facility] Work Phone: Comment on above: Non- GFR Calc No Panel InformationOrdered By: Dr. Wilks on 07-03-2022 29.0 pg 27.0-32.0 [facility] 15.9 % 11.6-14.6 [facility] 54.2 fl 35.1-43.9 [facility] 1.000 % 0.0-0.9 [facility] 0 % 0-5 [facility] 68 mL/min >60 [facility] 83 mL/min >60 [facility] 19.8 RATIO 10-20 [facility] 2.6 mg/dL 1.6-2.6 [facility] 25.0 mmol/L 21.0-32.0 [facility] Platelets bldOrdered By: Dr. Wilks on 07-03-2022 Platelets (Bld) [#/Vol] 323 10*3/uL 150-450 [facility] Serum or plasma C reactive p rotein measurement (mass/volume)Ordered By: Dr. Wilks on 07-03-2022 CRP [Mass/Vol] 72.90 mg/L 0.0-3.0 [facility] Comment on above: C-Reactive Protein ( CRP) provides useful information for thediagnosis, therapy and monitoring of inflammatory processesand associated diseases. For the evaluation of Relative Riskfor Cardiovascular Disease, a High Sensitivity CRP (HSCRP)should be ordered. Serum or plasma calcium chay urement (mass/volume)Ordered By: Dr. Wilks on 07-03-2022 Calcium [Mass/Vol] 10.8 mg/dL 8.5-10.1 [facility] Serum or plasma creatinine m easurement (mass/volume)Ordered By: Dr. Wilks on 07-03-2022 Creatinine [Mass/Vol] 0.86 mg/dL 0.55-1.02 [facility] Comment on above: The validity of the calculated GFR & GFRAA in patients over 70 years has not been determined. Clinical correlation is essential. Serum or plasma urea nitroge n measurement (mass/volume)Ordered By: Dr. Wilks on 07-03-2022 Urea nitrogen [Mass/Vol] 17 mg/dL 7-18 [facility] Thin prep Papanicolaou smear with manual screeningOrdered By: Dr. Wilks on 07-03-2022 Thin prep Papanicolaou smear with manual screening 7 5-15 [facility] Absolute lymphocyte countOrd ered By: Dr. Baron on 06-29-2022 Lymphocytes Auto (Unsp spec) [#/Vol] 1.44 10*3/uL 0.83-4.51 [facility] Basophil percentageOrdered B y: Dr. Baron on 06-29-2022 Basophils (Bld) [#/Vol] 13.9 10*3/uL 4.4-11.0 [facility] Basophils (Bld) [#/Vol] 10.7 10*3/uL 2.0-7.7 [facility] Basophils/100 WBC (Bld) 0.5 % 0-1 [facility] Basophils/100 WBC (Bld) 77.5 % 47-70 [facility] Basophils/100 WBC (Bld) 2.5 % 0-5 [facility] Basophil percentageon 2021 Eosinophils/100 WBC (Bld) 2.5 % 0-5 [facility] Work Phone: Neutrophils (Bld) [#/Vol] 10.7 10*3/uL 2.0-7.7 [facility] Work Phone: Neutrophils/100 WBC (Bld) 77.5 % 47-70 [facility] Work Phone: WBC (Bld) [#/Vol] 13.9 10*3/uL 4.4-11.0 [facility] Work Phone: Blood erythrocytes count (nu mber/volume)Ordered By: Dr. Baron on 06-29-2022 RBC (Bld) [#/Vol] 3.73 10*6/uL 4.2-5.4 [facility] Blood hemoglobin measurement (mass/volume)Ordered By: Dr. Baron on 06-29-2022 Hemoglobin (Bld) [Mass/Vol] 11.2 g/dL 12.0-15.0 [facility] Blood lymphocytes/100 leukoc ytesOrdered By: Dr. Baron on 06-29-2022 Lymphocytes/100 WBC (Bld) 10.4 % 19-41 [facility] Blood monocytes/100 leukocyt esOrdered By: Dr. Baron on 06-29-2022 Monocytes/100 WBC (Bld) 7.1 % 0-10 [facility] Blood platelet mean volumeOr dered By: Dr. Baron on 06-29-2022 Platelet mean volume (Bld) [Entitic vol] 9.9 fL 6.2-12.0 [facility] Determination of erythrocyte mean corpuscular volume (MCV)Ordered By: Dr. Baron on 06-29-2022 MCV (RBC) [Entitic vol] 92.0 fL 81-99 [facility] Hematocrit Auto (Bld) [Volum e fraction]Ordered By: Dr. Baron on 06-29-2022 Hematocrit (Bld) [Volume fraction] 34.3 % 37-47 [facility] Laboratory - Hematology and Cell countson 06-29-2022 Erythrocyte distribution width (RBC) [Entitic vol] 51.9 fL 35.1-43.9 [facility] Work Phone: Erythrocyte distribution width (RBC) [Ratio] 15.6 % 11.6-14.6 [facility] Work Phone: Immature granulocytes/100 WBC (Bld) 2.000 % 0.0-0.9 [facility] Work Phone: Comment on above: IG% - Immature Granu locytes (promyelocytes, myelocytes and metamyelocytes) > 1% indicates that a LEFT SHIFT is Present. MCH (RBC) [Entitic mass] 30.0 pg 27.0-32.0 [facility] Work Phone: Nucleated RBC/100 WBC (Bld) [Ratio] 0 % 0-5 [facility] Work Phone: MCHC Auto (RBC) [Mass/Vol]Or dered By: Dr. Baron on 06-29-2022 MCHC (RBC) [Mass/Vol] 32.7 g/dL 32-36 [facility] Comment on above: Delta: 31.1 on 06/26 No Panel InformationOrdered By: Dr. Baron on 06-29-2022 30.0 pg 27.0-32.0 [facility] 15.6 % 11.6-14.6 [facility] 51.9 fl 35.1-43.9 [facility] 2.000 % 0.0-0.9 [facility] 0 % 0-5 [facility] Platelets bldOrdered By: Dr. Baron on 06-29-2022 Platelets (Bld) [#/Vol] 311 10*3/uL 150-450 [facility] Absolute lymphocyte countOrd ered By: Dr. Wilks on 06-26-2022 Lymphocytes Auto (Unsp spec) [#/Vol] 1.66 10*3/uL 0.83-4.51 [facility] Basophil percentageOrdered B y: Dr. Wilks on 06-26-2022 Basophil percentage 96 mg/dL 74-106 [facility] Basophil percentage 140 mmol/L 136-145 [facility] Basophil percentage 4.1 mmol/L 3.5-5.1 [facility] Basophil percentage 108 mmol/L 98-107 [facility] Basophils (Bld) [#/Vol] 8.6 10*3/uL 4.4-11.0 [facility] Basophils (Bld) [#/Vol] 5.7 10*3/uL 2.0-7.7 [facility] Basophils/100 WBC (Bld) 0.5 % 0-1 [facility] Basophils/100 WBC (Bld) 66.3 % 47-70 [facility] Basophils/100 WBC (Bld) 4.5 % 0-5 [facility] Basophil percentageon 2021 Chloride [Moles/Vol] 108 mmol/L 98-107 [facility] Work Phone: Eosinophils/100 WBC (Bld) 4.5 % 0-5 [facility] Work Phone: Glucose [Mass/Vol] 96 mg/dL 74-106 [facility] Work Phone: Neutrophils (Bld) [#/Vol] 5.7 10*3/uL 2.0-7.7 [facility] Work Phone: Neutrophils/100 WBC (Bld) 66.3 % 47-70 [facility] Work Phone: Potassium [Moles/Vol] 4.1 mmol/L 3.5-5.1 [facility] Work Phone: Sodium [Moles/Vol] 140 mmol/L 136-145 [facility] Work Phone: WBC (Bld) [#/Vol] 8.6 10*3/uL 4.4-11.0 [facility] Work Phone: Blood erythrocytes count (nu mber/volume)Ordered By: Dr. Wilks on 06-26-2022 RBC (Bld) [#/Vol] 3.91 10*6/uL 4.2-5.4 [facility] Blood hemoglobin measurement (mass/volume)Ordered By: Dr. Wilks on 06-26-2022 Hemoglobin (Bld) [Mass/Vol] 11.4 g/dL 12.0-15.0 [facility] Blood lymphocytes/100 leukoc ytesOrdered By: Dr. Wilks on 06-26-2022 Lymphocytes/100 WBC (Bld) 19.3 % 19-41 [facility] Blood monocytes/100 leukocyt esOrdered By: Dr. Wilks on 06-26-2022 Monocytes/100 WBC (Bld) 8.1 % 0-10 [facility] Blood platelet mean volumeOr dered By: Dr. Wilks on 06-26-2022 Platelet mean volume (Bld) [Entitic vol] 10.7 fL 6.2-12.0 [facility] Determination of erythrocyte mean corpuscular volume (MCV)Ordered By: Dr. Wilks on 06-26-2022 MCV (RBC) [Entitic vol] 93.6 fL 81-99 [facility] Hematocrit Auto (Bld) [Volum e fraction]Ordered By: Dr. Wilks on 06-26-2022 Hematocrit (Bld) [Volume fraction] 36.6 % 37-47 [facility] Laboratory - Chemistry and C hemistry - challengeon 06-26-2022 CO2 [Moles/Vol] 24.0 mmol/L 21.0-32.0 [facility] Work Phone: Magnesium [Mass/Vol] 2.4 mg/dL 1.6-2.6 [facility] Work Phone: Urea nitrogen/Creatinine [Mass ratio] 18.6 mg/mg 10-20 [facility] Work Phone: Laboratory - Hematology and Cell countson 06-26-2022 Erythrocyte distribution width (RBC) [Entitic vol] 53.4 fL 35.1-43.9 [facility] Work Phone: Erythrocyte distribution width (RBC) [Ratio] 15.6 % 11.6-14.6 [facility] Work Phone: Immature granulocytes/100 WBC (Bld) 1.300 % 0.0-0.9 [facility] Work Phone: Comment on above: IG% - Immature Granu locytes (promyelocytes, myelocytes and metamyelocytes) > 1% indicates that a LEFT SHIFT is Present. MCH (RBC) [Entitic mass] 29.2 pg 27.0-32.0 [facility] Work Phone: Nucleated RBC/100 WBC (Bld) [Ratio] 0 % 0-5 [facility] Work Phone: MCHC Auto (RBC) [Mass/Vol]Or dered By: Dr. Wilks on 06-26-2022 MCHC (RBC) [Mass/Vol] 31.1 g/dL 32-36 [facility] No Panel Informationon 06-26 Estimated GFR (MDRD) Amer 97 mL/min >60 [facility] Work Phone: Comment on above: GFR Calc Estimated GFR (MDRD) Non-Af Amer 80 mL/min >60 [facility] Work Phone: Comment on above: Non- GFR Calc No Panel InformationOrdered By: Dr. Wilks on 06-26-2022 29.2 pg 27.0-32.0 [facility] 15.6 % 11.6-14.6 [facility] 53.4 fl 35.1-43.9 [facility] 1.300 % 0.0-0.9 [facility] 0 % 0-5 [facility] 80 mL/min >60 [facility] 97 mL/min >60 [facility] 18.6 RATIO 10-20 [facility] 2.4 mg/dL 1.6-2.6 [facility] 24.0 mmol/L 21.0-32.0 [facility] Platelets bldOrdered By: Dr. Wilks on 06-26-2022 Platelets (Bld) [#/Vol] 273 10*3/uL 150-450 [facility] Serum or plasma C reactive p rotein measurement (mass/volume)Ordered By: Dr. Wilks on 06-26-2022 CRP [Mass/Vol] 21.20 mg/L 0.0-3.0 [facility] Comment on above: C-Reactive Protein ( CRP) provides useful information for thediagnosis, therapy and monitoring of inflammatory processesand associated diseases. For the evaluation of Relative Riskfor Cardiovascular Disease, a High Sensitivity CRP (HSCRP)should be ordered. Serum or plasma calcium chay urement (mass/volume)Ordered By: Dr. Wilks on 06-26-2022 Calcium [Mass/Vol] 10.6 mg/dL 8.5-10.1 [facility] Serum or plasma creatinine m easurement (mass/volume)Ordered By: Dr. Wilks on 06-26-2022 Creatinine [Mass/Vol] 0.75 mg/dL 0.55-1.02 [facility] Comment on above: The validity of the calculated GFR & GFRAA in patients over 70 years has not been determined. Clinical correlation is essential. Serum or plasma urea nitroge n measurement (mass/volume)Ordered By: Dr. Wilks on 06-26-2022 Urea nitrogen [Mass/Vol] 14 mg/dL 7-18 [facility] Thin prep Papanicolaou smear with manual screeningOrdered By: Dr. Wilks on 06-26-2022 Thin prep Papanicolaou smear with manual screening 8 5-15 [facility] Absolute lymphocyte countOrd ered By: Dr. Wilks on 06-21-2022 Lymphocytes Auto (Unsp spec) [#/Vol] 1.26 10*3/uL 0.83-4.51 [facility] Basophil percentageOrdered B y: Dr. Wilks on 06-21-2022 Basophil percentage 106 mg/dL 74-106 [facility] Basophil percentage 139 mmol/L 136-145 [facility] Basophil percentage 4.1 mmol/L 3.5-5.1 [facility] Basophil percentage 109 mmol/L 98-107 [facility] Basophils (Bld) [#/Vol] 7.3 10*3/uL 4.4-11.0 [facility] Basophils (Bld) [#/Vol] 4.7 10*3/uL 2.0-7.7 [facility] Basophils/100 WBC (Bld) 0.8 % 0-1 [facility] Basophils/100 WBC (Bld) 64.5 % 47-70 [facility] Basophils/100 WBC (Bld) 3.3 % 0-5 [facility] Basophil percentageon 2021 Chloride [Moles/Vol] 109 mmol/L 98-107 [facility] Work Phone: Eosinophils/100 WBC (Bld) 3.3 % 0-5 [facility] Work Phone: Glucose [Mass/Vol] 106 mg/dL 74-106 [facility] Work Phone: Comment on above: Fasting Glucose resu lt from 100 to 125 mg/dL suggests IMPAIRED HOMEOSTASIS per A.D.A. criteria. Neutrophils (Bld) [#/Vol] 4.7 10*3/uL 2.0-7.7 [facility] Work Phone: Neutrophils/100 WBC (Bld) 64.5 % 47-70 [facility] Work Phone: Potassium [Moles/Vol] 4.1 mmol/L 3.5-5.1 [facility] Work Phone: Sodium [Moles/Vol] 139 mmol/L 136-145 [facility] Work Phone: WBC (Bld) [#/Vol] 7.3 10*3/uL 4.4-11.0 [facility] Work Phone: Blood erythrocytes count (nu mber/volume)Ordered By: Dr. Wilks on 06-21-2022 RBC (Bld) [#/Vol] 3.83 10*6/uL 4.2-5.4 [facility] Blood hemoglobin measurement (mass/volume)Ordered By: Dr. Wilks on 06-21-2022 Hemoglobin (Bld) [Mass/Vol] 11.2 g/dL 12.0-15.0 [facility] Blood lymphocytes/100 leukoc ytesOrdered By: Dr. Wilks on 06-21-2022 Lymphocytes/100 WBC (Bld) 17.2 % 19-41 [facility] Blood monocytes/100 leukocyt esOrdered By: Dr. Wilks on 06-21-2022 Monocytes/100 WBC (Bld) 13.5 % 0-10 [facility] Blood platelet mean volumeOr dered By: Dr. Wilks on 06-21-2022 Platelet mean volume (Bld) [Entitic vol] 10.6 fL 6.2-12.0 [facility] Determination of erythrocyte mean corpuscular volume (MCV)Ordered By: Dr. Wilks on 06-21-2022 MCV (RBC) [Entitic vol] 94.8 fL 81-99 [facility] Hematocrit Auto (Bld) [Volum e fraction]Ordered By: Dr. Wilks on 06-21-2022 Hematocrit (Bld) [Volume fraction] 36.3 % 37-47 [facility] Laboratory - Chemistry and C hemistry - challengeon 06-21-2022 CO2 [Moles/Vol] 25.0 mmol/L 21.0-32.0 [facility] Work Phone: Magnesium [Mass/Vol] 2.5 mg/dL 1.6-2.6 [facility] Work Phone: Urea nitrogen/Creatinine [Mass ratio] 21.6 mg/mg 10-20 [facility] Work Phone: Laboratory - Hematology and Cell countson 06-21-2022 Erythrocyte distribution width (RBC) [Entitic vol] 55.5 fL 35.1-43.9 [facility] Work Phone: Erythrocyte distribution width (RBC) [Ratio] 15.9 % 11.6-14.6 [facility] Work Phone: Immature granulocytes/100 WBC (Bld) 0.700 % 0.0-0.9 [facility] Work Phone: Comment on above: IG% - Immature Granu locytes (promyelocytes, myelocytes and metamyelocytes) > 1% indicates that a LEFT SHIFT is Present. MCH (RBC) [Entitic mass] 29.2 pg 27.0-32.0 [facility] Work Phone: Nucleated RBC/100 WBC (Bld) [Ratio] 0 % 0-5 [facility] Work Phone: MCHC Auto (RBC) [Mass/Vol]Or dered By: Dr. Wilks on 06-21-2022 MCHC (RBC) [Mass/Vol] 30.9 g/dL 32-36 [facility] No Panel Informationon 06-21 Estimated GFR (MDRD) Amer 86 mL/min >60 [facility] Work Phone: Comment on above: GFR Calc Estimated GFR (MDRD) Non-Af Amer 71 mL/min >60 [facility] Work Phone: Comment on above: Non- GFR Calc No Panel InformationOrdered By: Dr. Wilks on 06-21-2022 29.2 pg 27.0-32.0 [facility] 15.9 % 11.6-14.6 [facility] 55.5 fl 35.1-43.9 [facility] 0.700 % 0.0-0.9 [facility] 0 % 0-5 [facility] 71 mL/min >60 [facility] 86 mL/min >60 [facility] 21.6 RATIO 10-20 [facility] 2.5 mg/dL 1.6-2.6 [facility] 25.0 mmol/L 21.0-32.0 [facility] Platelets bldOrdered By: Dr. Wilks on 06-21-2022 Platelets (Bld) [#/Vol] 266 10*3/uL 150-450 [facility] Serum or plasma calcium chay urement (mass/volume)Ordered By: Dr. Wilks on 06-21-2022 Calcium [Mass/Vol] 10.4 mg/dL 8.5-10.1 [facility] Serum or plasma creatinine m easurement (mass/volume)Ordered By: Dr. Wilks on 06-21-2022 Creatinine [Mass/Vol] 0.83 mg/dL 0.55-1.02 [facility] Comment on above: The validity of the calculated GFR & GFRAA in patients over 70 years has not been determined. Clinical correlation is essential. Serum or plasma urea nitroge n measurement (mass/volume)Ordered By: Dr. Wilks on 06-21-2022 Urea nitrogen [Mass/Vol] 18 mg/dL 7-18 [facility] Thin prep Papanicolaou smear with manual screeningOrdered By: Dr. Wilks on 06-21-2022 Thin prep Papanicolaou smear with manual screening 5 5-15 [facility] Absolute lymphocyte countOrd ered By: Dr. Wilks on 06-20-2022 Lymphocytes Auto (Unsp spec) [#/Vol] 0.90 10*3/uL 0.83-4.51 [facility] Basophil percentageOrdered B y: Dr. Wilks on 06-20-2022 Basophil percentage 137 mg/dL 74-106 [facility] Basophil percentage 139 mmol/L 136-145 [facility] Basophil percentage 3.8 mmol/L 3.5-5.1 [facility] Basophil percentage 109 mmol/L 98-107 [facility] Basophils (Bld) [#/Vol] 8.7 10*3/uL 4.4-11.0 [facility] Basophils (Bld) [#/Vol] 6.4 10*3/uL 2.0-7.7 [facility] Basophils/100 WBC (Bld) 0.9 % 0-1 [facility] Basophils/100 WBC (Bld) 73.6 % 47-70 [facility] Basophils/100 WBC (Bld) 2.4 % 0-5 [facility] Basophil percentageon 2021 Chloride [Moles/Vol] 109 mmol/L 98-107 [facility] Work Phone: Eosinophils/100 WBC (Bld) 2.4 % 0-5 [facility] Work Phone: Glucose [Mass/Vol] 137 mg/dL 74-106 [facility] Work Phone: Comment on above: Fasting Glucose resu lt greater than or equal to 126 mg/dL suggests DIABETES MELLITUS per A.D.A. criteria. Neutrophils (Bld) [#/Vol] 6.4 10*3/uL 2.0-7.7 [facility] Work Phone: Neutrophils/100 WBC (Bld) 73.6 % 47-70 [facility] Work Phone: Potassium [Moles/Vol] 3.8 mmol/L 3.5-5.1 [facility] Work Phone: Sodium [Moles/Vol] 139 mmol/L 136-145 [facility] Work Phone: WBC (Bld) [#/Vol] 8.7 10*3/uL 4.4-11.0 [facility] Work Phone: Blood erythrocytes count (nu mber/volume)Ordered By: Dr. Wilks on 06-20-2022 RBC (Bld) [#/Vol] 3.78 10*6/uL 4.2-5.4 [facility] Blood hemoglobin measurement (mass/volume)Ordered By: Dr. Wilks on 06-20-2022 Hemoglobin (Bld) [Mass/Vol] 11.5 g/dL 12.0-15.0 [facility] Blood lymphocytes/100 leukoc ytesOrdered By: Dr. Wilks on 06-20-2022 Lymphocytes/100 WBC (Bld) 10.4 % 19-41 [facility] Blood monocytes/100 leukocyt esOrdered By: Dr. iWlks on 06-20-2022 Monocytes/100 WBC (Bld) 12.1 % 0-10 [facility] Blood platelet mean volumeOr dered By: Dr. Wilks on 06-20-2022 Platelet mean volume (Bld) [Entitic vol] 10.6 fL 6.2-12.0 [facility] Determination of erythrocyte mean corpuscular volume (MCV)Ordered By: Dr. Wilks on 06-20-2022 MCV (RBC) [Entitic vol] 94.2 fL 81-99 [facility] Hematocrit Auto (Bld) [Volum e fraction]Ordered By: Dr. Wilks on 06-20-2022 Hematocrit (Bld) [Volume fraction] 35.6 % 37-47 [facility] Laboratory - Chemistry and C hemistry - challengeon 06-20-2022 CO2 [Moles/Vol] 25.0 mmol/L 21.0-32.0 [facility] Work Phone: Magnesium [Mass/Vol] 2.5 mg/dL 1.6-2.6 [facility] Work Phone: Urea nitrogen/Creatinine [Mass ratio] 20.5 mg/mg 10- [facility] Work Phone: Laboratory - Hematology and Cell countson 06-20-2022 Erythrocyte distribution width (RBC) [Entitic vol] 53.9 fL 35.1-43.9 [facility] Work Phone: Erythrocyte distribution width (RBC) [Ratio] 15.7 % 11.6-14.6 [facility] Work Phone: Immature granulocytes/100 WBC (Bld) 0.600 % 0.0-0.9 [facility] Work Phone: Comment on above: IG% - Immature Granu locytes (promyelocytes, myelocytes and metamyelocytes) > 1% indicates that a LEFT SHIFT is Present. MCH (RBC) [Entitic mass] 30.4 pg 27.0-32.0 [facility] Work Phone: Nucleated RBC/100 WBC (Bld) [Ratio] 0 % 0-5 [facility] Work Phone: MCHC Auto (RBC) [Mass/Vol]Or dered By: Dr. Wilks on 06-20-2022 MCHC (RBC) [Mass/Vol] 32.3 g/dL 32-36 [facility] No Panel Informationon 06-20 Estimated GFR (MDRD) Amer 86 mL/min >60 [facility] Work Phone: Comment on above: GFR Calc Estimated GFR (MDRD) Non-Af Amer 71 mL/min >60 [facility] Work Phone: Comment on above: Non- GFR Calc No Panel InformationOrdered By: Dr. Wilks on 06-20-2022 30.4 pg 27.0-32.0 [facility] 15.7 % 11.6-14.6 [facility] 53.9 fl 35.1-43.9 [facility] 0.600 % 0.0-0.9 [facility] 0 % 0-5 [facility] 71 mL/min >60 [facility] 86 mL/min >60 [facility] 20.5 RATIO 10-20 [facility] 2.5 mg/dL 1.6-2.6 [facility] 25.0 mmol/L 21.0-32.0 [facility] Platelets bldOrdered By: Dr. Wilks on 06-20-2022 Platelets (Bld) [#/Vol] 276 10*3/uL 150-450 [facility] Serum or plasma calcium chay urement (mass/volume)Ordered By: Dr. Wilks on 06-20-2022 Calcium [Mass/Vol] 10.8 mg/dL 8.5-10.1 [facility] Serum or plasma creatinine m easurement (mass/volume)Ordered By: Dr. Wilks on 06-20-2022 Creatinine [Mass/Vol] 0.83 mg/dL 0.55-1.02 [facility] Comment on above: The validity of the calculated GFR & GFRAA in patients over 70 years has not been determined. Clinical correlation is essential. Serum or plasma urea nitroge n measurement (mass/volume)Ordered By: Dr. Wilks on 06-20-2022 Urea nitrogen [Mass/Vol] 17 mg/dL - [facility] Thin prep Papanicolaou smear with manual screeningOrdered By: Dr. Wilks on 06-20-2022 Thin prep Papanicolaou smear with manual screening 5 5-15 [facility] Absolute lymphocyte countOrd ered By: Dr. Wilks on 06-13-2022 Lymphocytes Auto (Unsp spec) [#/Vol] 1.35 10*3/uL 0.83-4.51 [facility] Basophil percentageOrdered B y: Dr. Wilks on 06-13-2022 Basophil percentage 97 mg/dL 74-106 [facility] Basophil percentage 141 mmol/L 136-145 [facility] Basophil percentage 4.4 mmol/L 3.5-5.1 [facility] Basophil percentage 109 mmol/L 98-107 [facility] Basophils (Bld) [#/Vol] 7.4 10*3/uL 4.4-11.0 [facility] Basophils (Bld) [#/Vol] 4.7 10*3/uL 2.0-7.7 [facility] Basophils/100 WBC (Bld) 0.8 % 0-1 [facility] Basophils/100 WBC (Bld) 64.1 % 47-70 [facility] Basophils/100 WBC (Bld) 5.8 % 0-5 [facility] Basophil percentageon 2021 Chloride [Moles/Vol] 109 mmol/L 98-107 [facility] Work Phone: Eosinophils/100 WBC (Bld) 5.8 % 0-5 [facility] Work Phone: Glucose [Mass/Vol] 97 mg/dL 74-106 [facility] Work Phone: Neutrophils (Bld) [#/Vol] 4.7 10*3/uL 2.0-7.7 [facility] Work Phone: Neutrophils/100 WBC (Bld) 64.1 % 47-70 [facility] Work Phone: Potassium [Moles/Vol] 4.4 mmol/L 3.5-5.1 [facility] Work Phone: Sodium [Moles/Vol] 141 mmol/L 136-145 [facility] Work Phone: WBC (Bld) [#/Vol] 7.4 10*3/uL 4.4-11.0 [facility] Work Phone: Blood erythrocytes count (nu mber/volume)Ordered By: Dr. Wilks on 06-13-2022 RBC (Bld) [#/Vol] 3.62 10*6/uL 4.2-5.4 [facility] Blood hemoglobin measurement (mass/volume)Ordered By: Dr. Wilks on 06-13-2022 Hemoglobin (Bld) [Mass/Vol] 11.0 g/dL 12.0-15.0 [facility] Blood lymphocytes/100 leukoc ytesOrdered By: Dr. Wilks on 06-13-2022 Lymphocytes/100 WBC (Bld) 18.3 % 19-41 [facility] Blood monocytes/100 leukocyt esOrdered By: Dr. Wilks on 06-13-2022 Monocytes/100 WBC (Bld) 10.2 % 0-10 [facility] Blood platelet mean volumeOr dered By: Dr. Wilks on 06-13-2022 Platelet mean volume (Bld) [Entitic vol] 9.9 fL 6.2-12.0 [facility] Determination of erythrocyte mean corpuscular volume (MCV)Ordered By: Dr. Wilks on 06-13-2022 MCV (RBC) [Entitic vol] 97.2 fL 81-99 [facility] Hematocrit Auto (Bld) [Volum e fraction]Ordered By: Dr. Wilks on 06-13-2022 Hematocrit (Bld) [Volume fraction] 35.2 % 37-47 [facility] Laboratory - Chemistry and C hemistry - challengeon 06-13-2022 CO2 [Moles/Vol] 29.0 mmol/L 21.0-32.0 [facility] Work Phone: Magnesium [Mass/Vol] 2.6 mg/dL 1.6-2.6 [facility] Work Phone: Urea nitrogen/Creatinine [Mass ratio] 22.0 mg/mg 10-20 [facility] Work Phone: Laboratory - Hematology and Cell countson 06-13-2022 Erythrocyte distribution width (RBC) [Entitic vol] 56.2 fL 35.1-43.9 [facility] Work Phone: Erythrocyte distribution width (RBC) [Ratio] 15.9 % 11.6-14.6 [facility] Work Phone: Immature granulocytes/100 WBC (Bld) 0.800 % 0.0-0.9 [facility] Work Phone: Comment on above: IG% - Immature Granu locytes (promyelocytes, myelocytes and metamyelocytes) > 1% indicates that a LEFT SHIFT is Present. MCH (RBC) [Entitic mass] 30.4 pg 27.0-32.0 [facility] Work Phone: Nucleated RBC/100 WBC (Bld) [Ratio] 0 % 0-5 [facility] Work Phone: MCHC Auto (RBC) [Mass/Vol]Or dered By: Dr. Wilks on 06-13-2022 MCHC (RBC) [Mass/Vol] 31.3 g/dL 32-36 [facility] No Panel Informationon 06-13 Estimated GFR (MDRD) Amer 82 mL/min >60 [facility] Work Phone: Comment on above: GFR Calc Estimated GFR (MDRD) Non-Af Amer 68 mL/min >60 [facility] Work Phone: Comment on above: Non- GFR Calc Ionized Calcium 6.5 mg/dL 4.5-5.6 [facility] Work Phone: Comment on above: Performed at: [address] [id number] Director: Alexis Thomas PhD, Phone: [phone] Parathyroid Hormone (Intact) 81.7 pg/mL 18.4-80.1 [facility] Work Phone: No Panel InformationOrdered By: Dr. Wilks on 06-13-2022 30.4 pg 27.0-32.0 [facility] 15.9 % 11.6-14.6 [facility] 56.2 fl 35.1-43.9 [facility] 0.800 % 0.0-0.9 [facility] 0 % 0-5 [facility] 68 mL/min >60 [facility] 82 mL/min >60 [facility] 22.0 RATIO 10-20 [facility] 2.6 mg/dL 1.6-2.6 [facility] 29.0 mmol/L 21.0-32.0 [facility] 81.7 pg/mL 18.4-80.1 [facility] 6.5 mg/dL 4.5-5.6 [facility] Platelets bldOrdered By: Dr. Wilks on 06-13-2022 Platelets (Bld) [#/Vol] 281 10*3/uL 150-450 [facility] Serum or plasma calcium chay urement (mass/volume)Ordered By: Dr. Wilks on 06-13-2022 Calcium [Mass/Vol] 10.8 mg/dL 8.5-10.1 [facility] Serum or plasma creatinine m easurement (mass/volume)Ordered By: Dr. Wilks on 06-13-2022 Creatinine [Mass/Vol] 0.86 mg/dL 0.55-1.02 [facility] Comment on above: The validity of the calculated GFR & GFRAA in patients over 70 years has not been determined. Clinical correlation is essential. Serum or plasma urea nitroge n measurement (mass/volume)Ordered By: Dr. Wilks on 06-13-2022 Urea nitrogen [Mass/Vol] 19 mg/dL -18 [facility] Thin prep Papanicolaou smear with manual screeningOrdered By: Dr. Wilks on 06-13-2022 Thin prep Papanicolaou smear with manual screening 3 5-15 [facility] Absolute lymphocyte countOrd ered By: Dr. Wikls on 06-06-2022 Lymphocytes Auto (Unsp spec) [#/Vol] 1.27 10*3/uL 0.83-4.51 [facility] Bacteria identified Cx Nom ( U)Ordered By: Dr. Wilks on 06-06-2022 Culture, urine Mixed Gram Pos & Gram Neg Org [facility] Basophil percentageOrdered B y: Dr. Wilks on 06-06-2022 Basophil percentage 90 mg/dL 74-106 [facility] Basophil percentage 141 mmol/L 136-145 [facility] Basophil percentage 4.5 mmol/L 3.5-5.1 [facility] Basophil percentage 108 mmol/L 98-107 [facility] Basophils (Bld) [#/Vol] 7.0 10*3/uL 4.4-11.0 [facility] Basophils (Bld) [#/Vol] 4.4 10*3/uL 2.0-7.7 [facility] Basophils/100 WBC (Bld) 0.9 % 0-1 [facility] Basophils/100 WBC (Bld) 62.6 % 47-70 [facility] Basophils/100 WBC (Bld) 7.1 % 0-5 [facility] Basophil percentageon 2021 Chloride [Moles/Vol] 108 mmol/L 98-107 [facility] Work Phone: Eosinophils/100 WBC (Bld) 7.1 % 0-5 [facility] Work Phone: Glucose [Mass/Vol] 90 mg/dL 74-106 [facility] Work Phone: Neutrophils (Bld) [#/Vol] 4.4 10*3/uL 2.0-7.7 [facility] Work Phone: Neutrophils/100 WBC (Bld) 62.6 % 47-70 [facility] Work Phone: Potassium [Moles/Vol] 4.5 mmol/L 3.5-5.1 [facility] Work Phone: Sodium [Moles/Vol] 141 mmol/L 136-145 [facility] Work Phone: WBC (Bld) [#/Vol] 7.0 10*3/uL 4.4-11.0 [facility] Work Phone: Blood erythrocytes count (nu mber/volume)Ordered By: Dr. Wilks on 06-06-2022 RBC (Bld) [#/Vol] 3.47 10*6/uL 4.2-5.4 [facility] Blood hemoglobin measurement (mass/volume)Ordered By: Dr. Wilks on 06-06-2022 Hemoglobin (Bld) [Mass/Vol] 10.6 g/dL 12.0-15.0 [facility] Blood lymphocytes/100 leukoc ytesOrdered By: Dr. Wilks on 06-06-2022 Lymphocytes/100 WBC (Bld) 18.3 % 19-41 [facility] Blood monocytes/100 leukocyt esOrdered By: Dr. Wilks on 06-06-2022 Monocytes/100 WBC (Bld) 10.5 % 0-10 [facility] Blood platelet mean volumeOr dered By: Dr. Wilks on 06-06-2022 Platelet mean volume (Bld) [Entitic vol] 10.6 fL 6.2-12.0 [facility] Determination of erythrocyte mean corpuscular volume (MCV)Ordered By: Dr. Wilks on 06-06-2022 MCV (RBC) [Entitic vol] 97.4 fL 81-99 [facility] Hematocrit Auto (Bld) [Volum e fraction]Ordered By: Dr. Wilks on 06-06-2022 Hematocrit (Bld) [Volume fraction] 33.8 % 37-47 [facility] Laboratory - Chemistry and C hemistry - challengeon 06-06-2022 CO2 [Moles/Vol] 27.0 mmol/L 21.0-32.0 [facility] Work Phone: Magnesium [Mass/Vol] 2.3 mg/dL 1.6-2.6 [facility] Work Phone: Urea nitrogen/Creatinine [Mass ratio] 22.9 mg/mg 10-20 [facility] Work Phone: Laboratory - Hematology and Cell countson 06-06-2022 Erythrocyte distribution width (RBC) [Entitic vol] 54.7 fL 35.1-43.9 [facility] Work Phone: Erythrocyte distribution width (RBC) [Ratio] 15.3 % 11.6-14.6 [facility] Work Phone: Immature granulocytes/100 WBC (Bld) 0.600 % 0.0-0.9 [facility] Work Phone: Comment on above: IG% - Immature Granu locytes (promyelocytes, myelocytes and metamyelocytes) > 1% indicates that a LEFT SHIFT is Present. MCH (RBC) [Entitic mass] 30.5 pg 27.0-32.0 [facility] Work Phone: Nucleated RBC/100 WBC (Bld) [Ratio] 0 % 0-5 [facility] Work Phone: MCHC Auto (RBC) [Mass/Vol]Or dered By: Dr. Wilks on 06-06-2022 MCHC (RBC) [Mass/Vol] 31.4 g/dL 32-36 [facility] No Panel Informationon 06-06 Estimated GFR (MDRD) Amer 81 mL/min >60 [facility] Work Phone: Comment on above: GFR Calc Estimated GFR (MDRD) Non-Af Amer 67 mL/min >60 [facility] Work Phone: Comment on above: Non- GFR Calc No Panel InformationOrdered By: Dr. Wilks on 06-06-2022 30.5 pg 27.0-32.0 [facility] 15.3 % 11.6-14.6 [facility] 54.7 fl 35.1-43.9 [facility] 0.600 % 0.0-0.9 [facility] 0 % 0-5 [facility] 67 mL/min >60 [facility] 81 mL/min >60 [facility] 22.9 RATIO 10-20 [facility] 2.3 mg/dL 1.6-2.6 [facility] 27.0 mmol/L 21.0-32.0 [facility] Platelets bldOrdered By: Dr. Wilks on 06-06-2022 Platelets (Bld) [#/Vol] 280 10*3/uL 150-450 [facility] Serum or plasma calcium chay urement (mass/volume)Ordered By: Dr. Wilks on 06-06-2022 Calcium [Mass/Vol] 10.3 mg/dL 8.5-10.1 [facility] Serum or plasma creatinine m easurement (mass/volume)Ordered By: Dr. Wilks on 06-06-2022 Creatinine [Mass/Vol] 0.87 mg/dL 0.55-1.02 [facility] Comment on above: The validity of the calculated GFR & GFRAA in patients over 70 years has not been determined. Clinical correlation is essential. Serum or plasma urea nitroge n measurement (mass/volume)Ordered By: Dr. Wilks on 06-06-2022 Urea nitrogen [Mass/Vol] 20 mg/dL 7-18 [facility] Thin prep Papanicolaou smear with manual screeningOrdered By: Dr. Wilks on 06-06-2022 Thin prep Papanicolaou smear with manual screening 6 5-15 [facility] Bilirubin Test strip Ql (U)O rdered By: Dr. Wilks on 06-04-2022 Bilirubin Ql (U) Negative Negative [facility] Ketones Test strip Ql (U)Ord ered By: Dr. Wilks on 06-04-2022 Ketones Ql (U) Negative Negative [facility] Nitrite Test strip Ql (U)Ord ered By: Dr. Wilks on 06-04-2022 Nitrite Ql (U) Negative Negative [facility] Protein Test strip Ql (U)Ord ered By: Dr. Wilks on 06-04-2022 Protein Ql (U) Negative Negative [facility] Urine blood detectionOrdered By: Dr. Wilks on 06-04-2022 RBC Ql (U) 10 /ul Negative [facility] Urine clarityOrdered By: Dr. Wilks on 06-04-2022 Clarity (U) Sl. Cloudy Clear [facility] Urine color determinationOrd ered By: Dr. Wilks on 06-04-2022 Color (U) Yellow Yellow [facility] Urine glucose detectionOrder ed By: Dr. Wilks on 06-04-2022 Glucose Ql (U) Normal mg/dl Normal [facility] Urine leukocyte esterase det ection by dipstickOrdered By: Dr. Wilks on 06-04-2022 Leukocyte esterase Test strip Ql (U) 25 /ul Negative [facility] Urine pHOrdered By: Dr. Aviva ku on 06-04-2022 pH (U) 6.0 [pH] 5.0 - 8.0 [facility] Urine specific gravity measu rementOrdered By: Dr. Wilks on 06-04-2022 Specific gravity (U) [Rel density] 1.015 1.002-1.030 [facility] Urobilinogen Auto test strip Ql (U)Ordered By: Dr. Wilks on 06-04-2022 Urobilinogen Ql (U) Normal mg/dl Normal [facility] Absolute lymphocyte countOrd ered By: Dr. Wilks on 05-30-2022 Lymphocytes Auto (Unsp spec) [#/Vol] 1.50 10*3/uL 0.83-4.51 [facility] Basophil percentageOrdered B y: Dr. Wilks on 05-30-2022 Basophil percentage 83 mg/dL 74-106 [facility] Basophil percentage 137 mmol/L 136-145 [facility] Basophil percentage 4.2 mmol/L 3.5-5.1 [facility] Basophil percentage 105 mmol/L 98-107 [facility] Basophils (Bld) [#/Vol] 9.0 10*3/uL 4.4-11.0 [facility] Basophils (Bld) [#/Vol] 6.2 10*3/uL 2.0-7.7 [facility] Basophils/100 WBC (Bld) 0.8 % 0-1 [facility] Basophils/100 WBC (Bld) 69.5 % 47-70 [facility] Basophils/100 WBC (Bld) 3.6 % 0-5 [facility] Basophil percentageon 2021 Chloride [Moles/Vol] 105 mmol/L 98-107 [facility] Work Phone: Eosinophils/100 WBC (Bld) 3.6 % 0-5 [facility] Work Phone: Glucose [Mass/Vol] 83 mg/dL 74-106 [facility] Work Phone: Neutrophils (Bld) [#/Vol] 6.2 10*3/uL 2.0-7.7 [facility] Work Phone: Neutrophils/100 WBC (Bld) 69.5 % 47-70 [facility] Work Phone: Potassium [Moles/Vol] 4.2 mmol/L 3.5-5.1 [facility] Work Phone: Sodium [Moles/Vol] 137 mmol/L 136-145 [facility] Work Phone: WBC (Bld) [#/Vol] 9.0 10*3/uL 4.4-11.0 [facility] Work Phone: Blood erythrocytes count (nu mber/volume)Ordered By: Dr. Wilks on 05-30-2022 RBC (Bld) [#/Vol] 3.73 10*6/uL 4.2-5.4 [facility] Blood hemoglobin measurement (mass/volume)Ordered By: Dr. Wilks on 05-30-2022 Hemoglobin (Bld) [Mass/Vol] 11.6 g/dL 12.0-15.0 [facility] Blood lymphocytes/100 leukoc ytesOrdered By: Dr. Wilks on 05-30-2022 Lymphocytes/100 WBC (Bld) 16.7 % 19-41 [facility] Blood monocytes/100 leukocyt esOrdered By: Dr. Wilks on 05-30-2022 Monocytes/100 WBC (Bld) 8.4 % 0-10 [facility] Blood platelet mean volumeOr dered By: Dr. Wilks on 05-30-2022 Platelet mean volume (Bld) [Entitic vol] 10.2 fL 6.2-12.0 [facility] Determination of erythrocyte mean corpuscular volume (MCV)Ordered By: Dr. Wilks on 05-30-2022 MCV (RBC) [Entitic vol] 96.5 fL 81-99 [facility] Hematocrit Auto (Bld) [Volum e fraction]Ordered By: Dr. Wilks on 05-30-2022 Hematocrit (Bld) [Volume fraction] 36.0 % 37-47 [facility] Laboratory - Chemistry and C hemistry - challengeon 05-30-2022 CO2 [Moles/Vol] 24.0 mmol/L 21.0-32.0 [facility] Work Phone: Magnesium [Mass/Vol] 2.3 mg/dL 1.6-2.6 [facility] Work Phone: Urea nitrogen/Creatinine [Mass ratio] 22.1 mg/mg 10-20 [facility] Work Phone: Laboratory - Hematology and Cell countson 05-30-2022 Erythrocyte distribution width (RBC) [Entitic vol] 53.2 fL 35.1-43.9 [facility] Work Phone: Erythrocyte distribution width (RBC) [Ratio] 15.2 % 11.6-14.6 [facility] Work Phone: Immature granulocytes/100 WBC (Bld) 1.000 % 0.0-0.9 [facility] Work Phone: Comment on above: IG% - Immature Granu locytes (promyelocytes, myelocytes and metamyelocytes) > 1% indicates that a LEFT SHIFT is Present. MCH (RBC) [Entitic mass] 31.1 pg 27.0-32.0 [facility] Work Phone: Nucleated RBC/100 WBC (Bld) [Ratio] 0 % 0-5 [facility] Work Phone: MCHC Auto (RBC) [Mass/Vol]Or dered By: Dr. Wilks on 05-30-2022 MCHC (RBC) [Mass/Vol] 32.2 g/dL 32-36 [facility] No Panel Informationon 05-30 Estimated GFR (MDRD) Amer 60 mL/min >60 [facility] [place] Work Phone: Comment on above: GFR Calc Estimated GFR (MDRD) Non-Af Amer 50 mL/min >60 [facility] [place] Work Phone: Comment on above: Non- GFR Calc No Panel InformationOrdered By: Dr. Wilks on 05-30-2022 31.1 pg 27.0-32.0 [facility] 15.2 % 11.6-14.6 [facility] 53.2 fl 35.1-43.9 [facility] 1.000 % 0.0-0.9 [facility] 0 % 0-5 [facility] 50 mL/min >60 [facility] 60 mL/min >60 [facility] 22.1 RATIO 10-20 [facility] 2.3 mg/dL 1.6-2.6 [facility] 24.0 mmol/L 21.0-32.0 [facility] Platelets bldOrdered By: Dr. Wilks on 05-30-2022 Platelets (Bld) [#/Vol] 384 10*3/uL 150-450 [facility] Serum or plasma calcium chay urement (mass/volume)Ordered By: Dr. Wilks on 05-30-2022 Calcium [Mass/Vol] 10.7 mg/dL 8.5-10.1 [facility] Serum or plasma creatinine m easurement (mass/volume)Ordered By: Dr. Wilks on 05-30-2022 Creatinine [Mass/Vol] 1.13 mg/dL 0.55-1.02 [facility] Comment on above: The validity of the calculated GFR & GFRAA in patients over 70 years has not been determined. Clinical correlation is essential. Serum or plasma urea nitroge n measurement (mass/volume)Ordered By: Dr. Wilks on 05-30-2022 Urea nitrogen [Mass/Vol] 25 mg/dL 7-18 [facility] Thin prep Papanicolaou smear with manual screeningOrdered By: Dr. Wilks on 05-30-2022 Thin prep Papanicolaou smear with manual screening 8 5-15 [facility] Basophil percentageOrdered B y: Dr. Wilks on 05-23-2022 Basophil percentage 108 mg/dL 74-106 [facility] Basophil percentage 138 mmol/L 136-145 [facility] Basophil percentage 4.1 mmol/L 3.5-5.1 [facility] Basophil percentage 105 mmol/L 98-107 [facility] Basophils (Bld) [#/Vol] 8.9 10*3/uL 4.4-11.0 [facility] Basophil percentageon 2021 Chloride [Moles/Vol] 105 mmol/L 98-107 [facility] Work Phone: Glucose [Mass/Vol] 108 mg/dL 74-106 [facility] Work Phone: Comment on above: Fasting Glucose resu lt from 100 to 125 mg/dL suggests IMPAIRED HOMEOSTASIS per A.D.A. criteria. Potassium [Moles/Vol] 4.1 mmol/L 3.5-5.1 [facility] Work Phone: Sodium [Moles/Vol] 138 mmol/L 136-145 [facility] Work Phone: WBC (Bld) [#/Vol] 8.9 10*3/uL 4.4-11.0 [facility] Work Phone: Blood erythrocytes count (nu mber/volume)Ordered By: Dr. Wilks on 05-23-2022 RBC (Bld) [#/Vol] 3.69 10*6/uL 4.2-5.4 [facility] Blood hemoglobin measurement (mass/volume)Ordered By: Dr. Wilks on 05-23-2022 Hemoglobin (Bld) [Mass/Vol] 11.5 g/dL 12.0-15.0 [facility] Blood platelet mean volumeOr dered By: Dr. Wilks on 05-23-2022 Platelet mean volume (Bld) [Entitic vol] 10.5 fL 6.2-12.0 [facility] Determination of erythrocyte mean corpuscular volume (MCV)Ordered By: Dr. Wilks on 05-23-2022 MCV (RBC) [Entitic vol] 96.2 fL 81-99 [facility] Hematocrit Auto (Bld) [Volum e fraction]Ordered By: Dr. Wilks on 05-23-2022 Hematocrit (Bld) [Volume fraction] 35.5 % 37-47 [facility] [place] Laboratory - Chemistry and C hemistry - challengeon 05-23-2022 CO2 [Moles/Vol] 25.0 mmol/L 21.0-32.0 [facility] Work Phone: Magnesium [Mass/Vol] 2.5 mg/dL 1.6-2.6 [facility] Work Phone: Urea nitrogen/Creatinine [Mass ratio] 30.6 mg/mg 10-20 [facility] Work Phone: Laboratory - Hematology and Cell countson 05-23-2022 Erythrocyte distribution width (RBC) [Entitic vol] 51.6 fL 35.1-43.9 [facility] Work Phone: Erythrocyte distribution width (RBC) [Ratio] 14.7 % 11.6-14.6 [facility] Work Phone: MCH (RBC) [Entitic mass] 31.2 pg 27.0-32.0 [facility] Work Phone: MCHC Auto (RBC) [Mass/Vol]Or dered By: Dr. Wilks on 05-23-2022 MCHC (RBC) [Mass/Vol] 32.4 g/dL 32-36 [facility] No Panel Informationon 05-23 Estimated GFR (MDRD) Amer 33 mL/min >60 [facility] Work Phone: Comment on above: GFR Calc Estimated GFR (MDRD) Non-Af Amer 27 mL/min >60 [facility] Work Phone: Comment on above: Non- GFR Calc No Panel InformationOrdered By: Dr. Wilks on 05-23-2022 31.2 pg 27.0-32.0 [facility] 14.7 % 11.6-14.6 [facility] 51.6 fl 35.1-43.9 [facility] 27 mL/min >60 [facility] 33 mL/min >60 [facility] 30.6 RATIO 10-20 [facility] 2.5 mg/dL 1.6-2.6 [facility] 25.0 mmol/L 21.0-32.0 [facility] Platelets bldOrdered By: Dr. Wilks on 05-23-2022 Platelets (Bld) [#/Vol] 383 10*3/uL 150-450 [facility] Serum or plasma calcium chay urement (mass/volume)Ordered By: Dr. Wilks on 05-23-2022 Calcium [Mass/Vol] 10.9 mg/dL 8.5-10.1 [facility] Serum or plasma creatinine m easurement (mass/volume)Ordered By: Dr. Wilks on 05-23-2022 Creatinine [Mass/Vol] 1.93 mg/dL 0.55-1.02 [facility] Comment on above: The validity of the calculated GFR & GFRAA in patients over 70 years has not been determined. Clinical correlation is essential. Serum or plasma urea nitroge n measurement (mass/volume)Ordered By: Dr. Wilks on 05-23-2022 Urea nitrogen [Mass/Vol] 59 mg/dL 7-18 [facility] Serum or plasma uric acid me asurement (mass/volume)Ordered By: Dr. Wilks on 05-23-2022 Urate [Mass/Vol] 8.1 mg/dL 2.6-6.0 [facility] Comment on above: The drugs N-Acetylcy steine and Metamizole may falsely depress this assay. Thin prep Papanicolaou smear with manual screeningOrdered By: Dr. Wilks on 05-23-2022 Thin prep Papanicolaou smear with manual screening 8 5-15 [facility] Absolute lymphocyte counton 05-18-2022 Lymphocytes Auto (Unsp spec) [#/Vol] 1.16 10*3/uL 0.83-4.51 [facility] Work Phone: Basophil percentageon 2021 Basophils/100 WBC (Bld) 0.7 % 0-1 [facility] Work Phone: Chloride [Moles/Vol] 105 mmol/L 98-107 [facility] Work Phone: Eosinophils/100 WBC (Bld) 4.6 % 0-5 [facility] Work Phone: Glucose [Mass/Vol] 111 mg/dL 74-106 [facility] Work Phone: Comment on above: Fasting Glucose resu lt from 100 to 125 mg/dL suggests IMPAIRED HOMEOSTASIS per A.D.A. criteria. Neutrophils (Bld) [#/Vol] 7.0 10*3/uL 2.0-7.7 [facility] Work Phone: Neutrophils/100 WBC (Bld) 72.3 % 47-70 [facility] Work Phone: Potassium [Moles/Vol] 3.8 mmol/L 3.5-5.1 [facility] Work Phone: Sodium [Moles/Vol] 138 mmol/L 136-145 [facility] Work Phone: WBC (Bld) [#/Vol] 9.6 10*3/uL 4.4-11.0 [facility] Work Phone: Blood erythrocytes count (nu mber/volume)on 05-18-2022 RBC (Bld) [#/Vol] 3.55 10*6/uL 4.2-5.4 [facility] Work Phone: Blood hemoglobin measurement (mass/volume)on 05-18-2022 Hemoglobin (Bld) [Mass/Vol] 10.8 g/dL 12.0-15.0 [facility] Work Phone: Blood lymphocytes/100 leukoc yteson 05-18-2022 Lymphocytes/100 WBC (Bld) 12.0 % 19-41 [facility] Work Phone: Blood monocytes/100 leukocyt eson 05-18-2022 Monocytes/100 WBC (Bld) 10.0 % 0-10 [facility] Work Phone: Blood platelet mean volumeon 05-18-2022 Platelet mean volume (Bld) [Entitic vol] 10.6 fL 6.2-12.0 [facility] Work Phone: Determination of erythrocyte mean corpuscular volume (MCV)on 05-18-2022 MCV (RBC) [Entitic vol] 96.3 fL 81-99 [facility] Work Phone: Hematocrit Auto (Bld) [Volum e fraction]on 05-18-2022 Hematocrit (Bld) [Volume fraction] 34.2 % 37-47 [facility] Work Phone: Laboratory - Chemistry and C hemistry - challengeon 05-18-2022 CO2 [Moles/Vol] 25.0 mmol/L 21.0-32.0 [facility] Work Phone: Cobalamin (Vitamin B12) [Mass/Vol] 909 pg/mL 211-911 [facility] Work Phone: Magnesium [Mass/Vol] 2.3 mg/dL 1.6-2.6 [facility] Work Phone: Urea nitrogen/Creatinine [Mass ratio] 30.1 mg/mg 10-20 [facility] Work Phone: Laboratory - Hematology and Cell countson 05-18-2022 Erythrocyte distribution width (RBC) [Entitic vol] 52.5 fL 35.1-43.9 [facility] Work Phone: Erythrocyte distribution width (RBC) [Ratio] 14.7 % 11.6-14.6 [facility] Work Phone: Immature granulocytes/100 WBC (Bld) 0.400 % 0.0-0.9 [facility] Work Phone: Comment on above: IG% - Immature Granu locytes (promyelocytes, myelocytes and metamyelocytes) > 1% indicates that a LEFT SHIFT is Present. MCH (RBC) [Entitic mass] 30.4 pg 27.0-32.0 [facility] Work Phone: Nucleated RBC/100 WBC (Bld) [Ratio] 0 % 0-5 [facility] Work Phone: MCHC Auto (RBC) [Mass/Vol]on 05-18-2022 MCHC (RBC) [Mass/Vol] 31.6 g/dL 32-36 [facility] Work Phone: No Panel Informationon 05-18 Estimated GFR (MDRD) Amer 40 mL/min >60 [facility] Work Phone: Comment on above: GFR Calc Estimated GFR (MDRD) Non-Af Amer 33 mL/min >60 [facility] Work Phone: Comment on above: Non- GFR Calc Vitamin D 25-Hydroxy 85.9 ng/mL [facility] Work Phone: Comment on above: Vitamin D 25(OH) Sta tus Range Deficiency <20 ng/mL (50nmol/L) Insufficiency 20 - 30 ng/mL (50 - 75 nmol/L) Sufficiency 30 - 100 ng/mL (75 - 250 nmol/L) Toxicity >100 ng/mL (>250 nmol/L) Platelets bldon 05-18-2022 Platelets (Bld) [#/Vol] 277 10*3/uL 150-450 [facility] Work Phone: Serum or plasma calcium chay urement (mass/volume)on 05-18-2022 Calcium [Mass/Vol] 10.2 mg/dL 8.5-10.1 [facility] Work Phone: Serum or plasma creatinine m easurement (mass/volume)on 05-18-2022 Creatinine [Mass/Vol] 1.63 mg/dL 0.55-1.02 [facility] Work Phone: Comment on above: The validity of the calculated GFR & GFRAA in patients over 70 years has not been determined. Clinical correlation is essential. Serum or plasma urea nitroge n measurement (mass/volume)on 05-18-2022 Urea nitrogen [Mass/Vol] 49 mg/dL 7-18 [facility] Work Phone: Thin prep Papanicolaou smear with manual screeningon 05-18-2022 Thin prep Papanicolaou smear with manual screening 8 5-15 [facility] Work Phone: Absolute lymphocyte counton 05-16-2022 Lymphocytes Auto (Unsp spec) [#/Vol] 1.09 10*3/uL 0.83-4.51 [facility] Work Phone: Basophil percentageon 2021 Basophils/100 WBC (Bld) 0.6 % 0-1 [facility] Work Phone: Chloride [Moles/Vol] 103 mmol/L 98-107 [facility] Work Phone: Eosinophils/100 WBC (Bld) 3.2 % 0-5 [facility] Work Phone: Glucose [Mass/Vol] 100 mg/dL 74-106 [facility] Work Phone: Comment on above: Fasting Glucose resu lt from 100 to 125 mg/dL suggests IMPAIRED HOMEOSTASIS per A.D.A. criteria. Neutrophils (Bld) [#/Vol] 7.2 10*3/uL 2.0-7.7 [facility] Work Phone: Neutrophils/100 WBC (Bld) 75.3 % 47-70 [facility] Work Phone: Potassium [Moles/Vol] 3.6 mmol/L 3.5-5.1 [facility] Work Phone: Sodium [Moles/Vol] 138 mmol/L 136-145 [facility] Work Phone: WBC (Bld) [#/Vol] 9.6 10*3/uL 4.4-11.0 [facility] Work [facility]: Blood erythrocytes count (nu mber/volume)on 05-16-2022 RBC (Bld) [#/Vol] 3.52 10*6/uL 4.2-5.4 [facility] Work [facility]: Blood hemoglobin measurement (mass/volume)on 05-16-2022 Hemoglobin (Bld) [Mass/Vol] 11.3 g/dL 12.0-15.0 [facility] Work Phone: Blood lymphocytes/100 leukoc yteson 05-16-2022 Lymphocytes/100 WBC (Bld) 11.3 % 19-41 [facility] Work Phone: Blood monocytes/100 leukocyt eson 05-16-2022 Monocytes/100 WBC (Bld) 9.1 % 0-10 [facility] Work Phone: Blood platelet mean volumeon 05-16-2022 Platelet mean volume (Bld) [Entitic vol] 10.5 fL 6.2-12.0 [facility] Work Phone: Determination of erythrocyte mean corpuscular volume (MCV)on 05-16-2022 MCV (RBC) [Entitic vol] 96.9 fL 81-99 [facility] Work Phone: Hematocrit Auto (Bld) [Volum e fraction]on 05-16-2022 Hematocrit (Bld) [Volume fraction] 34.1 % 37-47 [facility] Work Phone: Laboratory - Chemistry and C hemistry - challengeon 05-16-2022 CO2 [Moles/Vol] 25.0 mmol/L 21.0-32.0 [facility] Work Phone: Cobalamin (Vitamin B12) [Mass/Vol] 615 pg/mL 211-911 [facility] Work Phone: Magnesium [Mass/Vol] 2.3 mg/dL 1.6-2.6 [facility] Work Phone: Urea nitrogen/Creatinine [Mass ratio] 18.0 mg/mg 10-20 [facility] Work Phone: Laboratory - Hematology and Cell countson 05-16-2022 Erythrocyte distribution width (RBC) [Entitic vol] 52.1 fL 35.1-43.9 [facility] Work Phone: Erythrocyte distribution width (RBC) [Ratio] 14.6 % 11.6-14.6 [facility] Work Phone: Immature granulocytes/100 WBC (Bld) 0.500 % 0.0-0.9 [facility] Work Phone: Comment on above: IG% - Immature Granu locytes (promyelocytes, myelocytes and metamyelocytes) > 1% indicates that a LEFT SHIFT is Present. MCH (RBC) [Entitic mass] 32.1 pg 27.0-32.0 [facility] Work Phone: Nucleated RBC/100 WBC (Bld) [Ratio] 0 % 0-5 [facility] Work Phone: MCHC Auto (RBC) [Mass/Vol]on 05-16-2022 MCHC (RBC) [Mass/Vol] 33.1 g/dL 32-36 [facility] Work Phone: Comment on above: Delta: 31.0 on 05/13-1455 No Panel Informationon 05-16 Estimated GFR (MDRD) Amer 80 mL/min >60 [facility] Work Phone: Comment on above: GFR Calc Estimated GFR (MDRD) Non-Af Amer 66 mL/min >60 [facility] Work Phone: Comment on above: Non- GFR Calc Vitamin D 25-Hydroxy 82.5 ng/mL [facility] Work Phone: Comment on above: Vitamin D 25(OH) Sta tus Range Deficiency <20 ng/mL (50nmol/L) Insufficiency 20 - 30 ng/mL (50 - 75 nmol/L) Sufficiency 30 - 100 ng/mL (75 - 250 nmol/L) Toxicity >100 ng/mL (>250 nmol/L) Platelets bldon 05-16-2022 Platelets (Bld) [#/Vol] 223 10*3/uL 150-450 [facility] Work Phone: Serum or plasma calcium chay urement (mass/volume)on 05-16-2022 Calcium [Mass/Vol] 10.4 mg/dL 8.5-10.1 [facility] Work Phone: Serum or plasma creatinine m easurement (mass/volume)on 05-16-2022 Creatinine [Mass/Vol] 0.89 mg/dL 0.55-1.02 [facility] Work Phone: Comment on above: The validity of the calculated GFR & GFRAA in patients over 70 years has not been determined. Clinical correlation is essential. Serum or plasma urea nitroge n measurement (mass/volume)on 05-16-2022 Urea nitrogen [Mass/Vol] 16 mg/dL 7-18 [facility] Work Phone: Thin prep Papanicolaou smear with manual screeningon 05-16-2022 Thin prep Papanicolaou smear with manual screening 10 5-15 [facility] Work Phone: No Panel Informationon 05-15 Vitamin D 25-Hydroxy 80.9 ng/mL [facility] Work Phone: Comment on above: Vitamin D 25(OH) Sta tus Range Deficiency <20 ng/mL (50nmol/L) Insufficiency 20 - 30 ng/mL (50 - 75 nmol/L) Sufficiency 30 - 100 ng/mL (75 - 250 nmol/L) Toxicity >100 ng/mL (>250 nmol/L) Basophil percentageon 2021 Basophil percentage 0 SEEN /hpf 0-5 [facility] Work Phone: Bilirubin Test strip Ql (U)o n 05-14-2022 Bilirubin Ql (U) Negative Negative [facility] Work Phone: Ketones Test strip Ql (U)on 05-14-2022 Ketones Ql (U) Negative Negative [facility] Work Phone: Mucus LM Ql (Urine sed)on Mucus Ql (Urine sed) 0 SEEN /hpf [facility] Work Phone: Nitrite Test strip Ql (U)on 05-14-2022 Nitrite Ql (U) Negative Negative [facility] Work Phone: Protein Test strip Ql (U)on 05-14-2022 Protein Ql (U) Negative Negative [facility] Work Phone: Squamous epithelial cells de tection in urine sediment by light microscopyon 05-14-2022 Epithelial cells.squamous LM Ql (Urine sed) 0 SEEN /hpf 5-10 [facility] Work Phone: Urine blood detectionon 04-27 RBC Ql (U) 10 /ul Negative [facility] Work Phone: RBC Ql (U) 0 SEEN /hpf 0-5 [facility] Work Phone: Urine clarityon 05-14-2022 Clarity (U) Clear Clear [facility] Work Phone: Urine color determinationon 05-14-2022 Color (U) Yellow Yellow [facility] Work Phone: Urine glucose detectionon Glucose Ql (U) Normal mg/dl Normal [facility] Work Phone: Urine leukocyte esterase det ection by dipstickon 05-14-2022 Leukocyte esterase Test strip Ql (U) Negative Negative [facility] Work Phone: Urine pHon 05-14-2022 pH (U) 6.0 [pH] 5.0 - 8.0 [facility] Work Phone: Urine sediment bacteria coun t by microscopy (number/high power field)on 05-14-2022 Bacteria LM.HPF (Urine sed) [#/Area] 0 /[HPF] None Seen [facility] Work Phone: Urine specific gravity measu rementon 05-14-2022 Specific gravity (U) [Rel density] 1.010 1.002-1.030 [facility] Work Phone: Urobilinogen Auto test strip Ql (U)on 05-14-2022 Urobilinogen Ql (U) Normal mg/dl Normal [facility] Work Phone: Absolute lymphocyte counton 05-13-2022 Lymphocytes Auto (Unsp spec) [#/Vol] 1.07 10*3/uL 0.83-4.51 [facility] Work Phone: Basophil percentageon 2021 Basophils/100 WBC (Bld) 0.6 % 0-1 [facility] Work Phone: Chloride [Moles/Vol] 106 mmol/L 98-107 [facility] Work Phone: Eosinophils/100 WBC (Bld) 1.5 % 0-5 [facility] Work Phone: Glucose [Mass/Vol] 100 mg/dL 74-106 [facility] Work Phone: Comment on above: Fasting Glucose resu lt from 100 to 125 mg/dL suggests IMPAIRED HOMEOSTASIS per A.D.A. criteria. Neutrophils (Bld) [#/Vol] 8.2 10*3/uL 2.0-7.7 [facility] Work Phone: Neutrophils/100 WBC (Bld) 78.8 % 47-70 [facility] Work Phone: Potassium [Moles/Vol] 3.8 mmol/L 3.5-5.1 [facility] Work Phone: Sodium [Moles/Vol] 142 mmol/L 136-145 [facility] Work Phone: WBC (Bld) [#/Vol] 10.4 10*3/uL 4.4-11.0 [facility] Work Phone: Blood erythrocytes count (nu mber/volume)on 05-13-2022 RBC (Bld) [#/Vol] 3.70 10*6/uL 4.2-5.4 [facility] Work Phone: Blood hemoglobin measurement (mass/volume)on 05-13-2022 Hemoglobin (Bld) [Mass/Vol] 11.3 g/dL 12.0-15.0 [facility] Work Phone: Blood lymphocytes/100 leukoc yteson 05-13-2022 Lymphocytes/100 WBC (Bld) 10.3 % 19-41 [facility] Work Phone: Blood monocytes/100 leukocyt eson 05-13-2022 Monocytes/100 WBC (Bld) 8.2 % 0-10 [facility] Work Phone: Blood platelet mean volumeon 05-13-2022 Platelet mean volume (Bld) [Entitic vol] 10.0 fL 6.2-12.0 [facility] Work Phone: Determination of erythrocyte mean corpuscular volume (MCV)on 05-13-2022 MCV (RBC) [Entitic vol] 98.6 fL 81-99 [facility] Work Phone: Hematocrit Auto (Bld) [Volum e fraction]on 05-13-2022 Hematocrit (Bld) [Volume fraction] 36.5 % 37-47 [facility] Work Phone: Laboratory - Chemistry and C hemistry - challengeon 05-13-2022 CO2 [Moles/Vol] 28.0 mmol/L 21.0-32.0 [facility] Work Phone: Urea nitrogen/Creatinine [Mass ratio] 19.4 mg/mg 10-20 [facility] Work Phone: Laboratory - Hematology and Cell countson 05-13-2022 Erythrocyte distribution width (RBC) [Entitic vol] 54.5 fL 35.1-43.9 [facility] Work Phone: Erythrocyte distribution width (RBC) [Ratio] 15.1 % 11.6-14.6 [facility] Work Phone: Immature granulocytes/100 WBC (Bld) 0.600 % 0.0-0.9 [facility] Work Phone: Comment on above: IG% - Immature Granu locytes (promyelocytes, myelocytes and metamyelocytes) > 1% indicates that a LEFT SHIFT is Present. MCH (RBC) [Entitic mass] 30.5 pg 27.0-32.0 [facility] Work Phone: Nucleated RBC/100 WBC (Bld) [Ratio] 0 % 0-5 [facility] Work Phone: MCHC Auto (RBC) [Mass/Vol]on 05-13-2022 MCHC (RBC) [Mass/Vol] 31.0 g/dL 32-36 [facility] Work Phone: No Panel Informationon 05-13 Estimated Creatinine Clearance Calc 45.36 ml/min [facility] Work Phone: Estimated GFR (MDRD) Amer 54 mL/min >60 [facility] Work Phone: Comment on above: GFR Calc Estimated GFR (MDRD) Non-Af Amer 45 mL/min >60 [facility] Work Phone: Comment on above: Non- GFR Calc Platelets bldon 05-13-2022 Platelets (Bld) [#/Vol] 214 10*3/uL 150-450 [facility] Work Phone: Serum or plasma calcium chay urement (mass/volume)on 05-13-2022 Calcium [Mass/Vol] 10.8 mg/dL 8.5-10.1 [facility] Work Phone: Serum or plasma creatinine m easurement (mass/volume)on 05-13-2022 Creatinine [Mass/Vol] 1.24 mg/dL 0.55-1.02 [facility] Work Phone: Comment on above: The validity of the calculated GFR & GFRAA in patients over 70 years has not been determined. Clinical correlation is essential. Serum or plasma urea nitroge n measurement (mass/volume)on 05-13-2022 Urea nitrogen [Mass/Vol] 24 mg/dL 7-18 [facility] Work Phone: Thin prep Papanicolaou smear with manual screeningon 05-13-2022 Thin prep Papanicolaou smear with manual screening 8 5-15 [facility] Work Phone: Basophil percentageon 2021 Chloride [Moles/Vol] 107 mmol/L 98-107 [facility] Work [facility]: Cholesterol [Mass/Vol] 145 mg/dL <200 [facility] Work Phone: Comment on above: <200 mg/dL Desirable 200-240 mg/dL Borderline >240 mg/dL High Risk Glucose [Mass/Vol] 145 mg/dL 74-106 [facility] Work Phone: Comment on above: Fasting Glucose resu lt greater than or equal to 126 mg/dL suggests DIABETES MELLITUS per A.D.A. criteria. Potassium [Moles/Vol] 3.6 mmol/L 3.5-5.1 [facility] Work Phone: Sodium [Moles/Vol] 140 mmol/L 136-145 [facility] Work Phone: Triglyceride [Mass/Vol] 81 mg/dL <199 [facility] Work Phone: Comment on above: The drugs N-Acetylcy steine and Metamizole may falsely depress this assay.Serum Triglycerides Reference Interval Normal <150 mg/dL Borderline high 150 - 199 mg/dL High 200 - 499 mg/dL Very High > or = 500 mg/dL WBC (Bld) [#/Vol] 6.2 10*3/uL 4.4-11.0 [facility] Work Phone: Blood erythrocytes count (nu mber/volume)on 04-03-2022 RBC (Bld) [#/Vol] 3.81 10*6/uL 4.2-5.4 [facility] Work Phone: Blood hemoglobin measurement (mass/volume)on 04-03-2022 Hemoglobin (Bld) [Mass/Vol] 11.9 g/dL 12.0-15.0 [facility] Work Phone: Blood platelet mean volumeon 04-03-2022 Platelet mean volume (Bld) [Entitic vol] 9.9 fL 6.2-12.0 [facility] Work Phone: Determination of erythrocyte mean corpuscular volume (MCV)on 04-03-2022 MCV (RBC) [Entitic vol] 96.3 fL 81-99 [facility] Work Phone: Hematocrit Auto (Bld) [Volum e fraction]on 04-03-2022 Hematocrit (Bld) [Volume fraction] 36.7 % 37-47 [facility] Work Phone: Laboratory - Chemistry and C hemistry - challengeon 04-03-2022 CO2 [Moles/Vol] 29.0 mmol/L 21.0-32.0 [facility] Work Phone: Magnesium [Mass/Vol] 2.5 mg/dL 1.6-2.6 [facility] Work Phone: Urea nitrogen/Creatinine [Mass ratio] 22.8 mg/mg 10-20 [facility] Work Phone: Laboratory - Hematology and Cell countson 04-03-2022 Erythrocyte distribution width (RBC) [Entitic vol] 53.6 fL 35.1-43.9 [facility] Work Phone: Erythrocyte distribution width (RBC) [Ratio] 15.2 % 11.6-14.6 [facility] Work Phone: MCH (RBC) [Entitic mass] 31.2 pg 27.0-32.0 [facility] Work Phone: MCHC Auto (RBC) [Mass/Vol]on 04-03-2022 MCHC (RBC) [Mass/Vol] 32.4 g/dL 32-36 [facility] Work Phone: No Panel Informationon 04-03 Estimated GFR (MDRD) Amer 60 mL/min >60 [facility] Work Phone: Comment on above: GFR Calc Estimated GFR (MDRD) Non-Af Amer 49 mL/min >60 [facility] Work Phone: Comment on above: Non- GFR Calc Platelets bldon 04-03-2022 Platelets (Bld) [#/Vol] 268 10*3/uL 150-450 [facility] Work Phone: Serum or plasma calcium chay urement (mass/volume)on 04-03-2022 Calcium [Mass/Vol] 10.3 mg/dL 8.5-10.1 [facility] Work Phone: Serum or plasma cholesterol in HDL measurement (mass/volume)on 04-03-2022 Cholesterol in HDL [Mass/Vol] 67 mg/dL >40 [facility] Work Phone: Comment on above: The drugs N-Acetylcy steine and Metamizole may falsely depress this assay. Reference Range HDL <40 mg/dL Low HDL Cholesterol HDL >or= 60 mg/dL High HDL Cholesterol Serum or plasma cholesterol in VLDL measurement (mass/volume)on 04-03-2022 Cholesterol in VLDL [Mass/Vol] 16 mg/dL 5-40 [facility] Work Phone: Serum or plasma creatinine m easurement (mass/volume)on 04-03-2022 Creatinine [Mass/Vol] 1.14 mg/dL 0.55-1.02 [facility] Work Phone: Comment on above: The validity of the calculated GFR & GFRAA in patients over 70 years has not been determined. Clinical correlation is essential. Serum or plasma low density lipoprotein (LDL) cholesterol measurement (mass/volume)on 04-03-2022 Cholesterol in LDL [Mass/Vol] 62 mg/dL 0-130 [facility] Work Phone: Serum or plasma urea nitroge n measurement (mass/volume)on 04-03-2022 Urea nitrogen [Mass/Vol] 26 mg/dL 7-18 [facility] Work Phone: Thin prep Papanicolaou smear with manual screeningon 04-03-2022 Thin prep Papanicolaou smear with manual screening 4 5-15 [facility] Work Phone: Absolute lymphocyte counton 02-06-2022 Lymphocytes Auto (Unsp spec) [#/Vol] 1.14 10*3/uL 0.83-4.51 [facility] Work Phone: Basophil percentageon 2021 Basophils/100 WBC (Bld) 0.7 % 0-1 [facility] Work Phone: Eosinophils/100 WBC (Bld) 5.6 % 0-5 [facility] Work Phone: Neutrophils (Bld) [#/Vol] 4.6 10*3/uL 2.0-7.7 [facility] Work Phone: Neutrophils/100 WBC (Bld) 67.5 % 47-70 [facility] Work Phone: WBC (Bld) [#/Vol] 6.8 10*3/uL 4.4-11.0 [facility]: Blood erythrocytes count (nu mber/volume)on 02-06-2022 RBC (Bld) [#/Vol] 3.89 10*6/uL 4.2-5.4 [facility]: Blood hemoglobin measurement (mass/volume)on 02-06-2022 Hemoglobin (Bld) [Mass/Vol] 12.0 g/dL 12.0-15.0 [facility] Work Phone: Blood lymphocytes/100 leukoc yteson 02-06-2022 Lymphocytes/100 WBC (Bld) 16.7 % 19-41 [facility] Work Phone: Blood monocytes/100 leukocyt eson 02-06-2022 Monocytes/100 WBC (Bld) 8.9 % 0-10 [facility] Work Phone: Blood platelet mean volumeon 02-06-2022 Platelet mean volume (Bld) [Entitic vol] 10.7 fL 6.2-12.0 [facility] Work Phone: Determination of erythrocyte mean corpuscular volume (MCV)on 02-06-2022 MCV (RBC) [Entitic vol] 98.2 fL 81-99 [facility] Work Phone: Hematocrit Auto (Bld) [Volum e fraction]on 02-06-2022 Hematocrit (Bld) [Volume fraction] 38.2 % 37-47 [facility] Work Phone: Laboratory - Hematology and Cell countson 02-06-2022 Erythrocyte distribution width (RBC) [Entitic vol] 53.9 fL 35.1-43.9 [facility] Work Phone: Erythrocyte distribution width (RBC) [Ratio] 15.0 % 11.6-14.6 [facility] Work Phone: Immature granulocytes/100 WBC (Bld) 0.600 % 0.0-0.9 [facility] Work Phone: Comment on above: IG% - Immature Granu locytes (promyelocytes, myelocytes and metamyelocytes) > 1% indicates that a LEFT SHIFT is Present. MCH (RBC) [Entitic mass] 30.8 pg 27.0-32.0 [facility] Work Phone: Nucleated RBC/100 WBC (Bld) [Ratio] 0 % 0-5 [facility] Work Phone: MCHC Auto (RBC) [Mass/Vol]on 02-06-2022 MCHC (RBC) [Mass/Vol] 31.4 g/dL 32-36 [facility] Work [facility]: Platelets bldon 02-06-2022 Platelets (Bld) [#/Vol] 220 10*3/uL 150-450 [facility] Work Phone: Basophil percentageon 2021 Chloride [Moles/Vol] 107 mmol/L 98-107 [facility] Work Phone: Cholesterol [Mass/Vol] 178 mg/dL <200 [facility] Work Phone: Comment on above: <200 mg/dL Desirable 200-240 mg/dL Borderline >240 mg/dL High Risk Glucose [Mass/Vol] 106 mg/dL 74-106 [facility] Work Phone: Comment on above: Fasting Glucose resu lt from 100 to 125 mg/dL suggests IMPAIRED HOMEOSTASIS per A.D.A. criteria. Potassium [Moles/Vol] 3.9 mmol/L 3.5-5.1 [facility] Work Phone: Sodium [Moles/Vol] 141 mmol/L 136-145 [facility] Work Phone: Triglyceride [Mass/Vol] 93 mg/dL <199 [facility] Work Phone: Comment on above: The drugs N-Acetylcy steine and Metamizole may falsely depress this assay.Serum Triglycerides Reference Interval Normal <150 mg/dL Borderline high 150 - 199 mg/dL High 200 - 499 mg/dL Very High > or = 500 mg/dL WBC (Bld) [#/Vol] 7.9 10*3/uL 4.4-11.0 [facility] Work Phone: Blood erythrocytes count (nu mber/volume)on 01-02-2022 RBC (Bld) [#/Vol] 4.32 10*6/uL 4.2-5.4 [facility] Work Phone: Blood hemoglobin measurement (mass/volume)on 01-02-2022 Hemoglobin (Bld) [Mass/Vol] 13.3 g/dL 12.0-15.0 [facility] Work Phone: Blood platelet mean volumeon 01-02-2022 Platelet mean volume (Bld) [Entitic vol] 10.7 fL 6.2-12.0 [facility] Work Phone: Determination of erythrocyte mean corpuscular volume (MCV)on 01-02-2022 MCV (RBC) [Entitic vol] 96.3 fL 81-99 [facility] Work Phone: Hematocrit Auto (Bld) [Volum e fraction]on 01-02-2022 Hematocrit (Bld) [Volume fraction] 41.6 % 37-47 [facility] Work Phone: Laboratory - Chemistry and C hemistry - challengeon 01-02-2022 CO2 [Moles/Vol] 26.0 mmol/L 21.0-32.0 [facility] Work Phone: Magnesium [Mass/Vol] 2.4 mg/dL 1.6-2.6 [facility] Work Phone: Urea nitrogen/Creatinine [Mass ratio] 24.5 mg/mg 10-20 [facility] Work Phone: Laboratory - Hematology and Cell countson 01-02-2022 Erythrocyte distribution width (RBC) [Entitic vol] 52.5 fL 35.1-43.9 [facility] Work Phone: Erythrocyte distribution width (RBC) [Ratio] 14.7 % 11.6-14.6 [facility] Work Phone: MCH (RBC) [Entitic mass] 30.8 pg 27.0-32.0 [facility] Work Phone: MCHC Auto (RBC) [Mass/Vol]on 01-02-2022 MCHC (RBC) [Mass/Vol] 32.0 g/dL 32-36 [facility] Work Phone: No Panel Informationon 01-02 Estimated GFR (MDRD) Amer 48 mL/min >60 [facility] Work Phone: Comment on above: GFR Calc Estimated GFR (MDRD) Non-Af Amer 39 mL/min >60 [facility] Work Phone: Comment on above: Non- GFR Calc Platelets bldon 01-02-2022 Platelets (Bld) [#/Vol] 249 10*3/uL 150-450 [facility] Work Phone: Serum or plasma calcium chay urement (mass/volume)on 01-02-2022 Calcium [Mass/Vol] 10.2 mg/dL 8.5-10.1 [facility] Work Phone: Serum or plasma cholesterol in HDL measurement (mass/volume)on 01-02-2022 Cholesterol in HDL [Mass/Vol] 63 mg/dL >40 [facility] Work Phone: Comment on above: The drugs N-Acetylcy steine and Metamizole may falsely depress this assay. Reference Range HDL <40 mg/dL Low HDL Cholesterol HDL >or= 60 mg/dL High HDL Cholesterol Serum or plasma cholesterol in VLDL measurement (mass/volume)on 01-02-2022 Cholesterol in VLDL [Mass/Vol] 19 mg/dL 5-40 [facility] Work Phone: Serum or plasma creatinine m easurement (mass/volume)on 01-02-2022 Creatinine [Mass/Vol] 1.39 mg/dL 0.55-1.02 [facility] Work Phone: Comment on above: The validity of the calculated GFR & GFRAA in patients over 70 years has not been determined. Clinical correlation is essential. Serum or plasma low density lipoprotein (LDL) cholesterol measurement (mass/volume)on 01-02-2022 Cholesterol in LDL [Mass/Vol] 96 mg/dL 0-130 [facility] Work Phone: Serum or plasma urea nitroge n measurement (mass/volume)on 01-02-2022 Urea nitrogen [Mass/Vol] 34 mg/dL 7-18 [facility] Work Phone: Thin prep Papanicolaou smear with manual screeningon 01-02-2022 Thin prep Papanicolaou smear with manual screening 8 5-15 [facility] Work Phone: Absolute lymphocyte counton 09-26-2021 Lymphocytes Auto (Unsp spec) [#/Vol] 1.40 10*3/uL 0.83-4.51 [facility] Work Phone: Basophil percentageon 2021 Basophils/100 WBC (Bld) 1.2 % 0-1 [facility] Work Phone: Bilirubin [Mass/Vol] 0.30 mg/dL 0.20-1.00 [facility] Work Phone: Comment on above: For patients on eltr ombopag therapy, use of Dimension [place] TBIL is not recommended. Chloride [Moles/Vol] 106 mmol/L 98-107 [facility] Work Phone: Eosinophils/100 WBC (Bld) 6.7 % 0-5 [facility] Work Phone: Glucose [Mass/Vol] 116 mg/dL 74-106 [facility] Work Phone: Comment on above: Fasting Glucose resu lt from 100 to 125 mg/dL suggests IMPAIRED HOMEOSTASIS per A.D.A. criteria. Neutrophils (Bld) [#/Vol] 3.3 10*3/uL 2.0-7.7 [facility] Work Phone: Neutrophils/100 WBC (Bld) 57.2 % 47-70 [facility] Work Phone: Potassium [Moles/Vol] 3.6 mmol/L 3.5-5.1 [facility] Work Phone: Protein [Mass/Vol] 7.1 g/dL 6.4-8.2 [facility] Work Phone: Sodium [Moles/Vol] 139 mmol/L 136-145 [facility] Work Phone: WBC (Bld) [#/Vol] 5.8 10*3/uL 4.4-11.0 [facility] Work Phone: Blood erythrocytes count (nu mber/volume)on 09-26-2021 RBC (Bld) [#/Vol] 4.07 10*6/uL 4.2-5.4 [facility] Work Phone: Blood hemoglobin measurement (mass/volume)on 09-26-2021 Hemoglobin (Bld) [Mass/Vol] 12.3 g/dL 12.0-15.0 [facility] Work Phone: Blood lymphocytes/100 leukoc yteson 09-26-2021 Lymphocytes/100 WBC (Bld) 24.0 % 19-41 [facility] Work Phone: Blood monocytes/100 leukocyt eson 09-26-2021 Monocytes/100 WBC (Bld) 10.4 % 0-10 [facility] Work Phone: Blood platelet mean volumeon 09-26-2021 Platelet mean volume (Bld) [Entitic vol] 10.7 fL 6.2-12.0 [facility] Work Phone: Determination of erythrocyte mean corpuscular volume (MCV)on 09-26-2021 MCV (RBC) [Entitic vol] 97.3 fL 81-99 [facility] Work Phone: Hematocrit Auto (Bld) [Volum e fraction]on 09-26-2021 Hematocrit (Bld) [Volume fraction] 39.6 % 37-47 [facility] Work Phone: Laboratory - Chemistry and C hemistry - challengeon 09-26-2021 ALP [Catalytic activity/Vol] 55 U/L 45-117 [facility] Work Phone: ALT [Catalytic activity/Vol] 17 U/L 13-56 [facility] Work Phone: CO2 [Moles/Vol] 27.0 mmol/L 21.0-32.0 [facility] Work Phone: Globulin (S) [Mass/Vol] 3.8 g/dL 2.2-4.2 [facility] Work Phone: Magnesium [Mass/Vol] 2.5 mg/dL 1.6-2.6 [facility] Work Phone: Urea nitrogen/Creatinine [Mass ratio] 29.7 mg/mg 10-20 [facility] Work Phone: Laboratory - Hematology and Cell countson 09-26-2021 Erythrocyte distribution width (RBC) [Entitic vol] 53.7 fL 35.1-43.9 [facility] Work Phone: Erythrocyte distribution width (RBC) [Ratio] 15.0 % 11.6-14.6 [facility] Work Phone: Immature granulocytes/100 WBC (Bld) 0.500 % 0.0-0.9 [facility] Work Phone: Comment on above: IG% - Immature Granu locytes (promyelocytes, myelocytes and metamyelocytes) > 1% indicates that a LEFT SHIFT is Present. MCH (RBC) [Entitic mass] 30.2 pg 27.0-32.0 [facility] Work Phone: Nucleated RBC/100 WBC (Bld) [Ratio] 0 % 0-5 [facility] Work Phone: MCHC Auto (RBC) [Mass/Vol]on 09-26-2021 MCHC (RBC) [Mass/Vol] 31.1 g/dL 32-36 [facility] Work Phone: No Panel Informationon 09-26 Estimated GFR (MDRD) Amer 62 mL/min >60 [facility] Work Phone: Comment on above: GFR Calc Estimated GFR (MDRD) Non-Af Amer 51 mL/min >60 [facility] Work Phone: Comment on above: Non- GFR Calc Platelets bldon 09-26-2021 Platelets (Bld) [#/Vol] 253 10*3/uL 150-450 [facility] Work Phone: Serum or plasma albumin chay urement (mass/volume)on 09-26-2021 Albumin [Mass/Vol] 3.3 g/dL 3.2-5.0 [facility] Work Phone: Serum or plasma albumin/glob ulin mass ratioon 09-26-2021 Albumin/Globulin [Mass ratio] 0.9 {ratio} 0.9-2.4 [facility] Work Phone: Serum or plasma calcium chay urement (mass/volume)on 09-26-2021 Calcium [Mass/Vol] 10.3 mg/dL 8.5-10.1 [facility] Work Phone: Serum or plasma creatinine m easurement (mass/volume)on 09-26-2021 Creatinine [Mass/Vol] 1.11 mg/dL 0.55-1.02 [facility] Work Phone: Comment on above: The validity of the calculated GFR & GFRAA in patients over 70 years has not been determined. Clinical correlation is essential. Serum or plasma urea nitroge n measurement (mass/volume)on 09-26-2021 Urea nitrogen [Mass/Vol] 33 mg/dL 7-18 [facility] Work Phone: Thin prep Papanicolaou smear with manual screeningon 09-26-2021 Thin prep Papanicolaou smear with manual screening 14 U/L 15-37 [facility] Work Phone: Thin prep Papanicolaou smear with manual screening 6 5-15 [facility] Work Phone: OT Bone Density DEXA Axial S keletonon 12-05-2018 OT Bone Density DEXA Axial Skeleton Patient Name: KAMILAH MCKEON Bone Density Exam Date/Time 12/05/2018 09:14:55 EDT Exam OT Bone Density DEXA Axial Skeleton Ordering Physician MD CARY, LUAN HARRIS Accession Number [id number] CPT4 Codes 17097 () Reason For Exam age-related osteoporosis without current pathological fracture Report DXA BONE DENSITOMETRY: CLINICAL INDICATION: Asymptomatic post-menopausal status. Screening for osteoporosis. COMPARISON: 11/30/2016 TECHNIQUE: Quantitative bone mineral densitometry of the hip and lumbar spine was performed with a dual energy x-ray observed absorptiometry device - [email or web address] at some institutions, [email or web address] at others. Regions [...] or less plus fragility fracture indicates severe osteoporosis." FINDINGS: Femoral neck LEFT Density: 0.681 g/cm2 [...] recommendations for prevention of bone loss include: 7451-4901 mg calcium intake per day for adults [...] [place] of Knowledge Evidence - based Summaries. [facility] [employer] 2017. Report Dictated on Workstation: [employer] Final Dictating Physician: MD SOLOMON JEFFREY Signed Date and Time: 12/05/2018 9:53 am Signed by: MD SOLOMON JEFFREY Transcribed Date and Time: 12/05/2018 9:54 Normal [facility] MG Breast Tomosynthesis Scr Blon 06-10-2018 MG Breast Tomosynthesis Scr Bl Patient Name: KAIMLAH MCKEON Mammography Exam Date/Time 06/10/2018 11:56:45 EDT Exam MG Breast Tomosynthesis BI Scr Ordering Physician MD CARY, LUAN HARRIS Accession Number [id number] CPT4 Codes 38982 (MG Breast Tomosynthesis Scr Bl), 81146 (MG MAMMO 2D SCREENING) Reason For Exam [...] MG breast tomosynthesis bl scr performed at [facility]. May 11, 2016, bilateral screening mammogram performed at [facility]. April 28, 2015, bilateral screening mammogram performed at [facility]. May 20, 2014, bilateral screening mammogram, performed at [facility]. May 19, 2013, bilateral screening mammogram, performed at [facility]. May 16, 2012, bilateral screening mammogram, performed at [facility]. TISSUE DENSITY: There are scattered fibroglandular densities. . FINDINGS: No suspicious masses, architectural distortions or suspiciously clustered microcalcifications are identified. There are no significant changes when compared with prior studies. Markings on images: BB's = Nipples; skin lesions Open [place] = Palpable Line = Scar 2D digital [...] pm Signed by: MD MCADAMS KERISTEN L [facility] US Venous Extremity LT lower on 02-04-2018 US Venous Extremity LT lower Patient Name: KAMILAH MCKEON Ultrasound Exam Date/Time 02/04/2018 16:20:19 EDT Exam US Venous Extremity LT lower Ordering Physician SAGRARIO TRAORE HOLLY S Accession Number [id number] CPT4 Codes 19051 (US Venous Extremity LT lower) Reason For [...] called to the referring physician by the hematology technologist following completion of the examination. Report Dictated on Final Dictating Physician: MD FONTAINE HARLAN Signed Date and Time: 02/04/2018 5:31 pm Signed by: MD FONTAINE HARLAN Transcribed Date and Time: 02/04/2018 5:32 Normal [facility] COVID-19 virus antigen assay SARS-CoV-2 (COVID-19) Ag IA.rapid Ql (Resp) [facility] Work Phone: Culture, urine Bacteria identified Cx Nom (U) Mixed Gram Pos & Gram Neg Org [facility] Work Phone: Vital Signs Date Time Vital Sign Value Performing Clinician Faci lity 02-09-2025 12:39-0400 Body temperature 97.5 [degF] Dr. Gerda Wilks MD [facility] 02-09-2025 12:39-0400 Diastolic blood pressure 58 mm[Hg] Dr. Gerda Wilks MD [facility] 02-09-2025 12:39-0400 Heart rate 76 /min Dr. Gerda Wilks MD [facility] 02-09-2025 12:39-0400 Respiratory rate 17 /min Dr. Gerda Wilks MD [facility] 02-09-2025 12:39-0400 SaO2% (BldA) [Mass fraction] 94 % Dr. Gerda Wilks MD [facility] 02-09-2025 12:39-0400 Systolic blood pressure 138 mm[Hg] Dr. Gerda Wilks MD [facility] 02-09-2025 04:12-0400 Inhaled oxygen flow rate 2 L/min Dr. Gerda Wilks MD [facility] 02-08-2025 20:37-0400 Body mass index (BMI) [Ratio] 33.7 kg/m2 Dr. Gerda Wilks MD [facility] 02-08-2025 10:48-0400 Body height 144.[address] Gerda Wilks MD [facility] 02-08-2025 10:48-0400 Body weight 70.[address] Gerda Wilks MD [facility] 02-07-2025 12:30-0400 Diastolic blood pressure 65 mm[Hg] Dr. Gerda Wilks MD [facility] 02-07-2025 12:30-0400 Heart rate 57 /min Dr. Gerda Wilks MD [facility] 02-07-2025 12:30-0400 Respiratory rate 18 /min Dr. Gerda Wilks MD [facility] 02-07-2025 12:30-0400 SaO2% (BldA) [Mass fraction] 96 % Dr. Gerda Wilks MD [facility] 02-07-2025 12:30-0400 Systolic blood pressure 115 mm[Hg] Dr. Gerda Wilks MD [facility] 02-07-2025 11:15-0400 Body temperature 97.9 [degF] Dr. Gerda Wilks MD [facility] 02-07-2025 10:30-0400 Inhaled oxygen flow rate 1 L/min Dr. Gerda Wilks MD [facility] 02-07-2025 09:34-0400 Body height 144.[address] Gerda Wilsk MD [facility] 02-07-2025 09:34-0400 Body mass index (BMI) [Ratio] 33.8 kg/m2 Dr. Gerda Wilks MD [facility] 02-07-2025 09:34-0400 Body weight [address] Gerda Wilks MD [facility] 08-23-2022 11:15-0500 Body temperature 97.9 [degF] Dr. Gerda Wilks [facility] 08-23-2022 11:15-0500 Diastolic blood pressure 77 mm[Hg] Dr. Gerda Wilks [facility] 08-23-2022 11:15-0500 Heart rate 77 /min Dr. Gerda Wilks [facility] 08-23-2022 11:15-0500 Respiratory rate 16 /min Dr. Gerda Wilks [facility] 08-23-2022 11:15-0500 SaO2% (BldA) [Mass fraction] 93 % Dr. Gerda Wilks [facility] 08-23-2022 11:15-0500 Systolic blood pressure 128 mm[Hg] Dr. Gerda Wilks [facility] 08-23-2022 09:22-0500 Body height 144.[address] Gerda Wilks [facility] 08-23-2022 09:22-0500 Body mass index (BMI) [Ratio] 31.6 kg/m2 Dr. Gerda Wilks [facility] 08-23-2022 09:22-0500 Body weight 66.[address] Gerda Wilks [facility] 07-10-2022 08:35-0500 Body temperature 97.4 [degF] Dr. Gerda Wilks [facility] 07-10-2022 08:35-0500 Diastolic blood pressure 64 mm[facility]-10-2022 08:35-0500 Heart rate 88 /min Dr. Gerda Wilks [facility] 07-10-2022 08:35-0500 Respiratory rate 16 /min Dr. Gerda Wilks [facility] 07-10-2022 08:35-0500 SaO2% (BldA) [Mass fraction] 95 % Dr. Gerda Wilks [facility] 07-10-2022 08:35-0500 Systolic blood pressure 116 mm[Hg] Dr. Gerda Wilks [facility] 07-10-2022 03:49-0500 Body weight 68.[address] Gerda Wilks [facility] 07-09-2022 13:44-0500 Body height 144.[address] Gerda Wilks [facility] Work Phone: 07-08-2022 14:17-0500 Body mass index (BMI) [Ratio] 34.2 kg/m2 Dr. Gerda Wilks [facility] 07-08-2022 11:00-0500 Body height [facility] [facility] 07-08-2022 11:00-0500 Body mass index (BMI) [Ratio] 35.4 kg/m2 [facility] 07-08-2022 11:00-0500 Body temperature 97.7 [degF] [facility] 07-08-2022 11:00-0500 Body weight 74.[address] [facility] 07-08-2022 11:00-0500 Diastolic blood pressure 68 mm[Hg] Dr. Gerda Wilks [facility] Work Phone: 07-08-2022 11:00-0500 Heart rate 89 /[facility] 07-08-2022 11:00-0500 Respiratory rate 16 /[facility] 07-08-2022 11:00-0500 SaO2% (BldA) [Mass fraction] 94 % Dr. Gerda Wilks [facility] Work Phone: 07-08-2022 11:00-0500 Systolic blood pressure 93 mm[Hg[facility]: 06-29-2022 05:28-0400 Diastolic blood pressure 46 mm[Hg] Dr. Gerda Wilks [facility] 06-29-2022 05:28-0400 Heart rate 95 /[facility] 06-29-2022 05:28-0400 Respiratory rate 15 /min Dr. Gerda Wilks [facility] 06-29-2022 05:28-0400 SaO2% (BldA) [Mass fraction] 94 % Dr. Gerda Wilks [facility] 06-29-2022 05:28-0400 Systolic blood pressure 111 mm[Hg[facility] 06-28-2022 23:44-0400 Body height 144.[address] [facility] 06-28-2022 23:44-0400 Body mass index (BMI) [Ratio] 35.2 kg/m2 [facility] 06-28-2022 23:44-0400 Body temperature 97.6 [degF] Dr. Gerda Wilks [facility] 06-28-2022 23:44-0400 Body weight 73.[address] [facility] 05-15-2022 13:49-0400 Body temperature 98.1 [degF] [facility] 05-15-2022 13:49-0400 Diastolic blood pressure 57 mm[Hg[facility]: 05-15-2022 13:49-0400 Heart rate 88 /min Dr. Gerda Chicasa [facility] Work Phone: 05-15-2022 13:49-0400 Respiratory rate 18 /min Dr. Gerda Wilks [facility] Work Phone: 05-15-2022 13:49-0400 SaO2% (BldA) [Mass fraction] 98 % Dr. Gerda Wilks [facility] Work Phone: 05-15-2022 13:49-0400 Systolic blood pressure 113 mm[Hg] Dr. Gerda Wilks [facility] Work Phone: 05-13-2022 18:21-0400 Body height 144.[address] [facility]: 05-13-2022 18:21-0400 Body mass index (BMI) [Ratio] 34 kg/m2 [facility]: 05-13-2022 18:21-0400 Body weight 71.[address] [facility] Work [facility]: 05-13-2022 16:35-0400 Body temperature 98.5 [degF] Dr. Gerda Wilks [facility] Work Phone: 05-13-2022 16:35-0400 Diastolic blood pressure 88 mm[Hg] Dr. Gerda Wilks [facility] Work Phone: 05-13-2022 16:35-0400 Heart rate 102 /[facility]: 05-13-2022 16:35-0400 Respiratory rate 20 /min Dr. Gerda Wilks [facility] Work Phone: 05-13-2022 16:35-0400 SaO2% (BldA) [Mass fraction] 95 % Dr. Gerda Wilks [facility] Work Phone: 05-13-2022 16:35-0400 Systolic blood pressure 117 mm[Hg] Dr. Gerda Wliks [facility] Work Phone: 05-13-2022 14:27-0400 Body height 144.[address] Gerda Wilks [facility] Work Phone: 05-13-2022 14:27-0400 Body mass index (BMI) [Ratio] 34.9 kg/m2 Dr. Gerda Wilks [facility] Work Phone: 05-13-2022 14:27-0400 Body weight 73.[address] Gerda Wilks [facility] Work Phone: 2022 12:38-0400 Respiratory rate 18 /min [facility] Work Phone: 2022 10:20-0400 Body height 144.78 cm [facility] Work Phone: 2022 10:20-0400 Body mass index (BMI) [Ratio] 36.4 kg/m2 [facility] Work Phone: 2022 10:20-0400 Body temperature 97.8 [degF] [facility] Work Phone: 2022 10:20-0400 Body weight 76.4 kg [facility] Work Phone: 2022 10:20-0400 Diastolic blood pressure 73 mm[Hg] [facility] Work Phone: 2022 10:20-0400 Heart rate 83 /min [facility] Work Phone: 2022 10:20-0400 SaO2% (BldA) [Mass fraction] 96 % [facility] Work Phone: 2022 10:20-0400 Systolic blood pressure 132 mm[Hg] [facility] Work Phone: 09-26-2021 18:28-0500 Body height 162.56 cm [facility] Work Phone: 09-26-2021 18:28-0500 Body mass index (BMI) [Ratio] 30 kg/m2 [facility] Work Phone: 09-26-2021 18:28-0500 Body temperature 98.6 [degF] [facility] Work Phone: 09-26-2021 18:28-0500 Body weight 79.4 kg [facility] Work Phone: 09-26-2021 18:28-0500 Diastolic blood pressure 56 mm[Hg] [facility] Work Phone: 09-26-2021 18:28-0500 Heart rate 93 /min [facility] Work Phone: 09-26-2021 18:28-0500 Respiratory rate 20 /min [facility] Work Phone: 09-26-2021 18:28-0500 SaO2% (BldA) [Mass fraction] 95 % [facility] Work Phone: 09-26-2021 18:28-0500 Systolic blood pressure 138 mm[Hg] [facility] Work Phone: Encounters Encounter Date Encounter Type Care Provider Facility Start: 02-09-2025 Non-patient / Non-visit Dr. Patti Olivier MD -[facility] Work Phone: Start: 02-09-2025 ambulatory [place] Nicole Facility:[facility] Start: 02-08-2025 Non-patient / Non-visit Dr. Patti Olivier MD -[facility] Work Phone: Start: 02-07-2025 Non-patient / Non-visit Dr. Patti Olivier MD -[facility] Work Phone: Start: 02-07-2025 End: 02-09-2025 ambulatory Anatoly Whalen Facility:[facility] Start: 02-07-2025 End: 02-09-2025 Evaluation and management of inpatient Dr. Jaciel Olivier MD -[facility] Work Phone: Start: 02-07-2025 End: 02-09-[address] Gerda Wilks MD [facility] Work Phone: Start: 01-30-2025 [facility] Start: 01-30-[address] Gerda Wilks MD -[facility] Work Phone: Start: 08-15-2024 End: 08-15-[address] [facility] Start: 07-09-2024 End: 07-10-2024 Emergency department patient visit Eduardo Gilmore Facility:[facility] Start: 06-16-2024 End: 06-16-[address] [facility] Start: 05-21-2024 End: 05-21-[address] [facility] Facility:[facility] Start: 05-16-2024 End: 05-16-[address] [facility] Facility:[facility] Start: 04-18-[address] [facility] Start: 03-21-2024 End: 03-21-[address] [facility] Facility[facility] Start: 03-07-2024 End: 03-07-2024 ambulatory ENEDINA REGOTTI Neurology Comment on above: EMG Start: 03-07-2024 End: 03-07-2024 Patient encounter procedure Emg 1 Neur Nick Mc (Max Weight: 850) Neurology Start: 02-22-2024 ambulatory Gerda Gudla OLS Facili ty:[facility] Start: 12-03-2023 Telephone encounter Katina Lake MD Work Phone: Neurology Comment on above: Blood Thinner Instru ctions for EMG Testing Start: 11-29-2023 End: 11-29-2023 ambulatory ENEDINA CANCHOLA Facility:[facility] Start: 11-29-2023 End: 11-29-2023 Patient encounter procedure Enedina Canchola PA-C Work Phone: Orthopaedics Comment on above: Carpal tunnel syndro me of right wrist (Primary Dx); Disturbance of skin sensation Start: 11-02-2023 End: 11-02-2023 ambulatory [facility] Work Phone: Start: 11-02-2023 End: 11-02-2023 Departed Referred [facility] Start: 11-01-2023 End: 11-01-2023 ambulatory [facility] Work Phone: Start: 11-01-2023 End: 11-01-2023 Departed [facility]erred [facility] Start: 11-01-2023 Registered Referred [facility] Start: 10-15-2023 End: 10-15-2023 ambulatory [facility] Work Phone: Start: 10-15-2023 End: 10-15-2023 Departed Referred [facility] Start: 10-05-2023 End: 10-05-2023 Departed [facility]erred [facility] Start: 09-07-2023 End: 09-07-2023 ambulatory [facility] Work Phone: Start: 09-07-2023 End: 09-07-2023 Departed [facility]erred [facility] Start: 09-07-2023 Registered Referred [facility] Start: 09-06-2023 End: 09-06-2023 ambulatory [facility] Work Phone: Start: 09-06-2023 End: 09-06-2023 Patient encounter procedure [facility] Work Phone: Start: 08-08-2023 End: 08-08-2023 ambulatory [facility] Work Phone: Start: 08-08-2023 End: 08-08-2023 Departed [facility]erred [facility] Start: 07-23-2023 End: 07-23-2023 ambulatory ENEDINA REGOTTCliff Facility:[facility] Start: 07-23-2023 End: 07-23-2023 Subsequent hospital visit by physician Radio Vaughan [facility] Work Phone: Radiology Comment on above: Pain [R52] Start: 07-12-2023 End: 07-12-2023 ambulatory [facility] Work Phone: Start: 07-12-2023 End: 07-12-2023 Departed [facility] Start: 07-12-2023 Registered Referred [facility] Start: 07-05-2023 End: 07-05-2023 ambulatory [facility] Work Phone: Start: 07-05-2023 End: 07-05-2023 Departed [facility]erred [facility] Start: 06-26-2023 Orders Only Enedina perry PA-C Work Phone: [facility] [place] Comment on above: Pain (Primary Dx) Start: 06-14-2023 End: 06-14-2023 ambulatory [facility] Work Phone: Start: 06-14-2023 End: 06-14-2023 Departed [facility] Start: 05-17-2023 End: 05-17-2023 Departed [facility] Start: 05-17-2023 Registered Referred [facility] Start: 04-19-2023 End: 04-19-2023 ambulatory [facility] Work Phone: Start: 04-19-2023 End: 04-19-2023 Departed [facility]erred [facility] Start: 04-19-2023 Registered [facility]erred [facility] Start: 03-22-2023 End: 03-22-2023 ambulatory [facility] Work Phone: Start: 03-22-2023 End: 03-22-2023 Departed [facility] Start: 02-22-2023 Registered [facility]erred [facility] Start: 01-25-2023 End: 01-25-2023 ambulatory [facility] Work Phone: Start: 01-25-2023 End: 01-25-2023 Departed [facility] Start: 01-01-2023 End: 01-01-2023 ambulatory [facility] Work Phone: Start: 01-01-2023 End: 01-01-2023 Patient encounter procedure [facility] Start: 12-28-2022 End: 12-28-2022 Departed [facility] Start: 12-28-2022 Registered [facility]erred [facility] Start: 11-30-2022 End: 11-30-[address] Gerda Wilks [facility] Work Phone: Start: 11-30-2022 End: 11-30-[address] Gerda Wilks [facility] Start: 10-30-2022 End: 10-30-[address] Gerda Wilks [facility] Work Phone: Start: 10-30-2022 End: 10-30-[address] Gerda Wilks [facility] Start: 10-30-[address] Gerda Wilks [facility] Start: 10-30-2022 Dr. Gerda Wilks [facility] Start: 10-17-2022 End: 10-17-[address] Gerda Wilks [facility] Work Phone: Start: 10-17-2022 End: 10-17-[address] Gerda Wilks [facility] Start: 10-17-[address] [facility] Start: 10-17-2022 Dr. Gerda Wilks [facility] Start: 10-10-2022 End: 10-10-[address] [facility] Start: 10-10-2022 End: 10-10-[address] Gerda Wilks [facility] Start: 10-10-2022 Dr. Gerda Wilks [facility] Start: 10-04-2022 End: 10-04-[address] Gerda Wilks [facility] Work Phone: Start: 10-04-2022 End: 10-04-[address] Gerda Wilks [facility] Start: 10-04-2022 End: 10-04-2022 Dr. Gerda Wilks [facility] Start: 10-03-2022 End: 10-03-[address] Gerda Wilks [facility] Work Phone: Start: 10-03-2022 End: 10-03-[address] Gerda Wilks [facility] Start: 10-03-2022 End: 10-03-2022 Dr. Gerda Wilks [facility] Start: 09-26-2022 End: 09-26-[address] [facility] Start: 09-26-2022 End: 09-26-[address] [facility] Start: 09-26-2022 End: 09-26-2022 Dr. Gerda Wilks [facility] Start: 09-19-2022 End: 09-19-[address] [facility] Start: 09-19-2022 End: 09-19-20[facility] Start: 09-12-2022 End: 09-12-[address] [facility] Start: 09-12-2022 End: 09-12-[address] [facility] Start: 09-12-2022 End: 09-12-2022 [facility] Start: 09-05-2022 End: 09-05-[address] [facility] Start: 09-05-2022 End: 09-05-[address] [facility] Start: 09-05-[address] [facility] Start: 09-05-2022 End: 09-05-2022 Dr. Gerda Wilks [facility] Start: 08-29-2022 End: 08-29-[address] [facility] Start: 08-29-2022 End: 08-29-[address] [facility] Start: 08-29-[address] [facility] Start: 08-29-2022 End: 08-29[facility]2022 [facility] Start: 08-23-2022 Non-patient / Non-visit Dr. Gerda gentile [facility] Start: 08-23-2022 End: 08-23-2022 Admission to same day surgery center Dr. Gerda Wilks [facility] Start: 08-23-2022 End: 08-23-[address] Gerda Wilks [facility] Work Phone: Start: 08-23-2022 End: 08-23-2022 Dr. Gerda Wilks [facility] Start: 08-22-2022 End: 08-22-[address] Gerda Wilks [facility] Work Phone: Start: 08-22-2022 End: 08-22-[address] Gerda Wilks [facility] Start: 08-22-[address] Gerda Wilks [facility] Start: 08-22-2022 End: 08-22-2022 Dr. Gerda Wilks [facility] Start: 08-15-2022 End: 08-15-[address] Gerda Wilks [facility] Start: 08-15-[address] Gerda Wilks [facility] Start: 08-15-2022 End: 08-15-2022 Dr. Gerda Wilks [facility] Start: 08-08-2022 End: 08-08-[address] Gerda Wilks [facility] Work Phone: Start: 08-08-2022 End: 08-08-[address] Gerda Wilks [facility] Start: 08-08-[address] Gerda Wilks [facility] Start: 08-08-2022 End: 08-08-2022 Dr. Gerda Wilks [facility] Start: 08-01-2022 End: 08-01-[address] Gerda Wilks [facility] Start: 08-01-[address] [facility] Start: 08-01-2022 End: 08-01-2022 [facility] Start: 07-25-2022 End: 07-25-[address] [facility] Start: 07-25-2022 End: 07-25-[address] [facility] Start: 07-25-[address] [facility] Start: 07-25-2022 End: 07-25-2022 Dr. Gerda Wilks [facility] Start: 07-24-2022 End: 07-24-[address] Gerda Wilks [facility] Start: 07-24-2022 End: 07-24-2022 Dr. Gerda Wilks [facility] Start: 07-18-2022 End: 07-18-[address] Gerda Wilks [facility] Work Phone: Start: 07-18-2022 End: 07-18-[address] Gerda Wilks [facility] Start: 07-18-[address] [facility] Start: 07-18-2022 End: 07[facility] Start: 07-11-2022 End: 07-11-[address] [facility] Start: 07-11-2022 End: 07-11-[address] Gerda Wilks [facility] Start: 07-11-2022 End: 07-11-2022 Dr. Gerda Wilks [facility] Start: 07-10-2022 Non-patient / Non-visit Dr. Gerda Jenkins [facility] Start: 07-10-2022 Dr. Gerda Wilks [facility] Start: 07-09-2022 Non-patient / Non-visit Dr. Gerda Jenkins [facility] Start: 07-09-2022 Dr. Gerda Wilks [facility] Start: 07-09-2022 Non-patient / Non-visit Dr. Gerda Jenkins [facility] Start: 07-09-2022 Dr. Gerda Wilks [facility] Start: 07-08-2022 Non-patient / Non-visit Dr. Gerda Jenkins [facility] Start: 07-08-2022 End: 07-10-2022 Evaluation and management of inpatient Dr. Gerda Wilks [facility] Start: 07-08-2022 End: 07-10-[address] [facility] Start: 07-08-2022 End: 07-10-2022 Dr. Gerda Wilks [facility] Start: 07-03-2022 End: 07-03-[address] Gerda Wilks [facility] Start: 07-03-[address] Gerda Wilks [facility] Start: 07-03-2022 End: 07-03-2022 Dr. Gerda Wilks [facility] Start: 06-28-2022 End: 06-29-2022 Emergency department patient visit Dr. Gerda Wilks [facility] Start: 06-28-2022 End: 06-29-2022 Dr. Gerda Wilks [facility] Start: 06-26-[address] Gerda Wilks [facility] Start: 06-26-2022 Dr. Gerda Wilks [facility] Start: 06-21-[address] [facility] Start: 06-21-2022 Dr. Gerda Wilks [facility] Start: 06-20-[address] [facility] Start: 06-20-2022 Dr. Gerda Wilks [facility] Start: 06-13-2022 End: 06-13-[address] [facility] Start: 06-13-2022 End: 06-13-[address] [place] [id number] Start: 06-13-[address] [place] [id number] Start: 06-13-2022 End: 06-13-2022 Dr. Gerda Wilks [place] [id number] Start: 06-06-2022 End: 06-06-[address] [facility] Start: 06-06-2022 End: 06-06-[address] Gerda Wilks [place] [id number] Start: 06-06-2022 End: 06-06-2022 [place] [id number] Start: 06-04-2022 End: 06-04-[address] [place] [id number] Start: 06-04-[address] Gerda Wilks [place] [id number] Start: 06-04-2022 End: 06-04-2022 [place] [id number] Start: 05-30-[address] Gerda Wilks [place] [id number] Start: 05-30-2022 Dr. Gerda Wilks [place] [id number] Start: 05-23-[address] [place] [id number] Start: 05-23-2022 Dr. Gerda Wilks [place] [id number] Start: 05-18-[address] [place] [id number] Start: 05-16-[address] [place] [id number] Start: 05-15-2022 Non-patient / Non-visit Dr. Gerda Jenkins [facility] Start: 05-14-2022 Non-patient / Non-visit Dr. Gerda Jenkins [facility] Start: 05-13-2022 Non-patient / Non-visit Dr. Gerda Jenkins [facility] Start: 05-13-2022 End: 05-15-2022 Evaluation and management of inpatient Dr. Gerda Wilks [facility] Start: 05-13-2022 End: 05-15-[address] [facility] Start: 04-06-2022 End: 04-06-2022 Patient encounter procedure [facility] Start: 04-03-2022 End: 04-03-2022 Departed [facility] [facility] Start: 2022 End: 2022 Emergency department patient visit [facility] Start: 02-06-2022 End: 02-06-2022 Departed Referred [facility] Start: 02-06-2022 [place] [facility] [place]: 01-02-2022 End: 01-02-2022 Departed Referred [facility] Start: 12-15-2021 End: 12-15-2021 Patient encounter procedure [facility] Start: 09-26-2021 End: 09-26-2021 Emergency department patient visit [facility] Start: 09-26-2021 [place] [facility] [place]: 12-05-2018 Patient encounter procedure [facility] Start: 06-10-2018 Patient encounter procedure [facility] Start: 02-04-2018 Patient encounter procedure UNKNOWN PROVIDER [facility] Procedures Date Procedure Procedure Detail Performing Clinician Start: 02-09-2025 MRI of brain without contrast Dr. Gerda Wilks MD Start: 02-08-[address] Gerda Wilks MD Start: 02-07-2025 Urnls dip stick/tabl et reagent auto microscopy Dr. Gerda Wilks MD Start: 02-07-[address] Gerda Wilks MD Start: 02-07-2025 CT angiography of he ad and neck Dr. Gerda Wilks MD Start: 02-07-2025 Plain chest X-ray Dr. Giuseppe Wilks MD Start: 02-07-2025 CT of head without contrast Dr. Gerda Wilks MD Start: 03-07-2024 Nerve conduction anival dies 5-6 studies Enedina Canchola PA-C Work Phone: Start: 07-23-2023 Radex wrist complete [...] DTaP,Tdap,Td Vaccine (2 - Td or Tdap) [facility] Start: 02-09-2025 Referral to service [facility] Start: 02-09-2025 Patient discharge [facility] Start: 02-08-2025 Application of intermittent pneumatic compression device [facility] Start: 02-07-2025 Following clinical pathway protocol [facility] Start: 02-07-2025 Ambulation without limitation [facility] Start: 02-07-2025 Aspiration precautions [facility] Start: 02-07-2025 Assessment of risk o f venous thromboembolism [facility] Start: 02-07-2025 Cardiac monitoring [facility] Start: 02-07-2025 Catheterization of vein [facility] Start: 02-07-2025 Consultation [facility] Start: 02-07-2025 Elevation of head of bed [facility] Start: 02-07-2025 Exercises [facility] Start: 02-07-2025 Insertion of cathete r into peripheral vein [facility] Start: 02-07-2025 Measuring intake and output [facility] Start: 02-07-2025 Notification of physician [facility] Start: 02-07-2025 Oxygen therapy [facility] Start: 02-07-2025 Patient referral to dietitian [facility] Start: 02-07-2025 Providing care accor ding to standard [facility] Start: 02-07-2025 Referral to occupati onal therapist [facility] Start: 02-07-2025 Referral to service [facility] Start: 02-07-2025 Speech therapy assessment [facility] Start: 02-07-2025 Telemedicine consult ation with patient [facility] Start: 02-07-2025 Tobacco use cessatio n education [facility] Start: 02-07-2025 End: 02-07-2025 [facility] Start: 02-07-2025 Vital signs measurements [facility] Start: 02-07-2025 Admission procedure [facility] Start: 02-07-2025 Hospital admission, emergency, from emergency room, medical nature [facility] Start: 02-07-2025 [facility] Start: 02-07-2025 Oxygen therapy [facility] Start: 02-07-2025 [facility] Start: 04-27-2024 Covid-19 Vaccine ( season) Covid-19 Vaccine ( season) [facility] Start: 04-27-2024 Influenza vaccination [facility] Start: 01-12-2024 Covid-19 Vaccine ( season) Covid-19 Vaccine ( season) [facility] Start: 08-27-2023 Advance Directive Discussion Advance Directive Discussion [facility] Start: 08-27-2023 Behavioral Health Screening Behavioral Health Screening [facility] Start: 04-27-2023 Influenza vaccination Influenza Vacc ine (#1) [facility] Start: 03-30-2023 Diabetes Screening Diabetes Screenin g [facility] Start: 08-27-2022 Advance Directive Discussion Advance Directive Discussion [facility] Start: 08-27-2022 Depression Assessment Depression Ass essment [facility] Start: 08-23-2022 Colsc flx w/rmvl of tumor polyp lesion snare tq [facility] Start: 08-23-2022 Patient discharge [facility] Start: 07-10-2022 Patient discharge [facility] Start: 07-10-2022 Referral to occupati onal therapist [facility] Start: 07-10-2022 Referral to service [facility] Start: 07-08-2022 Following clinical pathway protocol [facility] Start: 07-08-2022 Referral to general surgeon [facility] Start: 07-08-2022 Following clinical pathway protocol [facility] Start: 07-08-2022 Assessment of risk o f venous thromboembolism [facility] Start: 07-08-2022 Catheterization of vein [facility] Start: 07-08-2022 Insertion of cathete r into peripheral vein [facility] Start: 07-08-2022 Measuring intake and output [facility] Start: 07-08-2022 Providing care accor ding to standard [facility] Start: 07-08-2022 Provision of activit y privileges [facility] Start: 07-08-2022 [facility] Start: 07-08-2022 Admission procedure [facility] Start: 07-08-2022 [facility] Work Phone: Start: 07-08-2022 Patient referral to dietitian [facility] Start: 06-28-2022 Smpl repair scalp/neck/ax/genit/trunk 2.6-7.5cm [facility] Start: 05-15-2022 Patient discharge [facility] Work Phone: Start: 05-14-2022 Following clinical pathway protocol [facility] Work Phone: Start: 05-13-2022 Assessment of risk o f venous thromboembolism [facility] Work Phone: Start: 05-13-2022 Catheterization of vein [facility] Work Phone: Start: 05-13-2022 Insertion of cathete r into peripheral vein [facility] Work Phone: Start: 05-13-2022 Providing care accor ding to standard [facility] Work Phone: Start: 05-13-2022 Provision of activit y privileges [facility] Work Phone: Start: 05-13-2022 Referral to occupati onal therapist [facility] Work Phone: Start: 05-13-2022 Referral to fingerprint expert [facility] Work Phone: Start: 05-13-2022 Referral to service [facility] Work Phone: Start: 05-13-2022 [facility] Work Phone: Start: 05-13-2022 Verification routine Wo [facility] Work Phone: Start: 05-13-2022 Admission procedure [facility] Work Phone: Start: 05-13-2022 Therapeutic injectio n iv push each new drug TX/PRO/DX INJ NEW DRUG ADDON [facility] Work Phone: Start: 05-13-2022 [facility] Work Phone: Start: 02-19-2012 Bone Density Screening Bone Density Screening [facility] Start: 02-19-2012 Pneumococcal Vaccine : 65+ (1 - PCV) Pneumococcal Vaccine: 65+ (1 - PCV) [facility] Start: 02-19-2012 Screening for osteoporosis Bone Density Screening [facility] Start: 2007 RSV Vaccine (1 - 1-d ose 60+ series) RSV Vaccine (1 - 1-dose 60+ series) [facility] Start: 1997 Shingrix Vaccine (1 of 2) Anaya grix Vaccine (1 of 2) [facility] Start: 02-19-1992 Diabetes Screening Diabetes Screenin g [facility] Start: 1966 Urine microalbumin profile DTaP,Tdap,Td Vaccine (1 - Tdap) [facility] Start: 1965 Anxiety Screening Anxiety Screening [facility] Start: 1965 Depression Screening Depression Scre ening [facility] Start: 1965 Hepatitis C Screening Hepatitis C [facility] Start: 1965 Hepatitis C screening Hepatitis C [facility] Start: 1947 Covid-19 Vaccine (#1) Covid-19 Vacci ne (#1) [facility] Bilirubin measuremen t, urine [facility] Work Phone: End: 11-28-2024 EMG(NEURO/NI) EMG(NEURO/NI) EMG Routine Carpal tunnel syndrome of right wrist Disturbance of skin sensation 1 Occurrences starting 11/29/2023 until 11/28/2024 [facility] Work Phone: Comment on above: 1 Occurrences starti ng 11/29/2023 until 11/28/2024 Hematocrit [Volume Fraction] of Blood [facility] Work Phone: Hemoglobin [Mass/vol ume] in Blood [facility] Work Phone: Hemoglobin [Presence ] in Urine [facility] Work Phone: Leukocytes [#/volume ] in Blood [facility] Work Phone: Mean corpuscular hemoglobin concentration determination [facility] Work Phone: Mean corpuscular hemoglobin determination [facility] Work Phone: Measurement of keton es in urine using dipstick [facility] Work Phone: Microscopic urinalysis [facility] Work Phone: Neutrophil count [facility] Work Phone: Neutrophil percent differential count [facility] Work Phone: Patient Education [facility] Work Phone: Patient referral [facility] Work Phone: pH of Urine [facility] Work Phone: Platelets [#/volume] in Blood [facility] Work Phone: Red blood cell count [facility] Work Phone: Red cell distributio n width determination [facility] Work Phone: Specific gravity of Urine [facility] Work Phone: Troponin T.cardiac [Mass/volume] in Serum or Plasma by High sensitivity method [facility] Urinalysis, blood, qualitative [facility] Work Phone: Urine dipstick for glucose [facility] Work Phone: Urine dipstick for leukocyte esterase [facility] Work Phone: Urine dipstick for nitrite [facility] Work Phone: Urine dipstick for protein [facility] Work Phone: Urine examination [facility] Work Phone: Urine microscopy: epithelial cells [facility] Work Phone: Urine Microscopy: wh ite cells [facility] Work Phone: Urobilinogen [Presen ce] in Urine [facility] Work Phone: End: 07-25-2024 XR WRIST GENERAL 3V PA/LAT/OBL RIGHT XR WRIST GENERAL 3V PA/LAT/OBL RIGHT Radiology Routine Pain 1 Occurrences starting 06/26/2023 until 07/25/2024 [facility] Work Phone: Comment on above: 1 Occurrences starti ng 06/26/2023 until 07/25/2024 Zinc [Mass/volume] i n Serum or Plasma [facility] Immunizations Immunization Date Immunization Notes Care Provider Varsha burnham 07-09-2022 influenza, injectabl e, quadrivalent, preservative free [facility] 07-09-2022 influenza, seasonal, injectable Dr. Gerda Wilks [facility] 07-09-2022 influenza virus vaccine, unspecified formulation Enedina Canchola PA-C Work Phone: [facility] Payers Date Payer Category Payer Medicaid [id number] 2024 Self-pay [id number] 2023 Medicaid [facility] MEDICAID MYC ARE [facility] MEDICAID [id number] 2023-Present [phone] [address] [place] [address] Medicaid [id number] 2023 Medicare [facility] MEDICARE [facility] MEDICARE ADVANTAGE PPO [id number] 2023-Present [phone] [address] [address] [place] [address] PPO [id number] 2023 Unknown [id number] 2023 Unknown [id number] 1945 Unknown [id number]. 668 1945 Unknown [id number] [id number]. 668 1945 Unknown [id number] [id number]. 668 Medicare [id number] Private Health Insurance [id number] Unknown Unknown [id number] Unknown [id number]. 462 Unknown [id number] 2.16840.1.292841.3.579.2. 462 Unknown [id number] 2.16840.1.415448.3.579.2. 462 Unknown [id number] 2.840.1.527890.3.579.2. 462 Unknown [id number] 2.840.1.564894.3.579.2. 462 Unknown [id number] 2.16.840.1.139521.3.579.2. 462 Unknown [id number] 2.16.840.1.953472.3.579.2. 462 Unknown [id number] 2.16.840.1.409657.3.579.2. 462 Unknown [id number] 2.16.840.1.639044.3.579.2. 462 Unknown [id number] 2.16.840.1.816309.3.579.2. 462 Unknown [id number] 2.16.840.1.409765.3.579.2. 462 Unknown [id number] 2.16.840.1.913675.3.579.2. 462 Unknown [id number] [id number]. 462 Unknown [id number] [id number]. 462 Social History Date Type Detail Facility Start: 09-26-2021 End: 08-22-2022 Tobacco smoking status SDIS Unknown if ever smoked [facility] Start: 1945 Sex Assigned At Female [facility] Start: 1945 Sex Assigned At Not on file [facility] Start: 07-23-2023 End: 11-29-2023 Gender identity Not on file [facility] Start: 07-23-2023 End: 02-08-2025 Tobacco smoking status NHIS Never smoked tobacco [facility] Start: 07-23-2023 Tobacco use and exposure Former smokeless tobacco user [facility] Start: 07-23-2023 End: 11-29-2023 History of Social function [facility] National Score (1-100), lower number is lower risk 93 [facility] Start: 02-07-2025 Tobacco smoking status NHIS Ex-smoker (finding) [facility] Start: 02-09-2025 Tobacco Use Tobacco Use [facility] NEGATED: Highlighted row [facility] Goals Date Patient Goal Desired Activity /State Functional Status Date Assessment Result Facility 02-09-2025 Functional status Ambulates [facility] Work Phone: 07-10-2022 Functional status Bedpan [facility] Work Phone: 05-15-2022 Functional status Bedrest [facility] Work Phone: Mental Status Date Assessment Result Facility 02-09-2025 Cognitive function Level Of Cons ciousness Awake;Alert;Appropriate;Follow s Commands [facility] Work Phone: 02-09-2025 Cognitive function Voice/Name [facility] Work Phone: 02-07-2025 Cognitive function Voice/Name [facility] Work Phone: 08-23-2022 Cognitive function Voice/Name [facility] Work Phone: 07-10-2022 Cognitive function Voice/Name [facility] Work Phone: 05-15-2022 Cognitive function Voice/Name;Touch/Shaki ng [facility] Work Phone: 05-15-2022 Cognitive function Comprehension Ability Demonstrates ability to follow instructions/comprehend [facility] Work Phone: Clinical Notes 07-23-2023 to 02-09-2025 Note Date & Type Note Facility 02-09-2025 Discharge summary [facility] 02-09-2025 Note [facility] Medical Records Department [address] [place] [id number] Discharge Summary 02/09/25 1257 MR#: [id number] Acct: [id number] Name: KAMILAH MCKEON Rep #: [id number] : 1945 79 From: Jaciel Olivier MD PCP: Gerda Wilks MD Status:ADM BALBINA Location: [place] [address] Providers Date of Admission: 02/07/25 Primary Care Physician: Dr. Gerda Wilks MD Consultations 02/07/25 13:03 Consult: Tele-Neurology Routine Consulting Provider: [facility] Reason for Consult: Acute Ischemic Stroke/TIA EMERGENT Consult: No MD Notified: Yes Date Notified: 02/07/25 Time Notified: 13:19 Method of Notification: Answering Service Nursing Unit Staff Notify [facility] of Tele-Neurology Consult: Yes Reason For Visit: TIA/CVA Diagnosis Discharge Diagnosis (1) TIA (transient ischemic attack): Status: Acute Code(s): G45.9 - Transient cerebral ischemic attack, unspecified Medications at Discharge Home Medications alendronate 70 mg tablet 70 mg PO MO OSTEOPOROSIS 08/07/21 allopurinol 100 mg tablet 200 mg PO DAILY GOUT 08/07/21 bupropion HCl 200 mg tablet,12 hr sustained-release 200 mg PO BID mood 08/07/21 fluticasone propionate 50 mcg/actuation nasal spray,suspension 1 spray intranasal DAILY allergies 08/07/21 loratadine 10 mg tablet 10 mg PO DAILY allergies 08/07/21 omeprazole 20 mg capsule,delayed release 20 mg PO DAILY reflux 08/07/21 potassium chloride 10 mEq tablet,extended release(part/cryst) (Klor-Con M) 10 meq PO DAILY supplement 08/07/21 pravastatin 20 mg tablet 20 mg PO QHS cholesterol 08/07/21 tramadol 50 mg tablet 50 mg PO Q12H PRN Pain 07/08/22 acetaminophen 325 mg tablet (Tylenol) 650 mg PO QHS PRN Pain Score 1-10/Temp > 100.7 F 02/07/25 aluminum-magnesium hydroxide 200 mg-200 mg/5 mL oral suspension 30 ml PO Q4H PRN GI bleeding prophylaxis 02/07/25 apixaban 5 mg tablet (Eliquis) 5 mg PO BID dvt 02/07/25 cinacalcet 30 mg tablet 30 mg PO DAILY parathyroid 02/07/25 clonazepam 0.5 mg tablet 0.5 mg PO QHS 02/07/25 docusate sodium 100 mg capsule (Col-Rite) 100 mg PO DAILY CONSTIPATION 02/07/25 donepezil 10 mg tablet 10 mg PO QHS memory 02/07/25 guaifenesin 100 mg/5 mL oral liquid (Adult Tussin Chest Congestion) 200 mg PO Q4H PRN congestion 02/07/25 guaifenesin 600 mg tablet, extended release 12 hr (Mucinex) 600 mg PO BID 02/07/25 losartan 50 mg tablet 50 mg PO DAILY bp 02/07/25 magnesium hydroxide 400 mg/5 mL oral suspension (Dulcolax (magnesium hydroxide)) 30 ml PO DAILY PRN constipation 02/07/25 methyl salicylate 15 %-menthol 10 % topical cream (AsperFlex (methyl salicylate-menthol)) 1 applic topical Q12H PRN muscle pain 02/07/25 metoprolol tartrate 25 mg tablet 12.5 mg PO BID heart 02/07/25 minoxidil 2.5 mg tablet 2.5 mg PO DAILY bp 02/07/25 ondansetron HCl 4 mg tablet 4 mg PO Q8H PRN nausea and vomiting 02/07/25 polyethylene glycol 3350 17 gram/dose oral powder (Miralax) 17 g PO DAILY PRN constipation 02/07/25 sertraline 50 mg tablet 75 mg PO DAILY depression 02/07/25 torsemide 10 mg tablet 10 mg PO DAILY water pill 02/07/25 Hospital Course Operations None Procedures 2-D Echocardiogram Summary of Care Provided Minutes Spent on Discharge: 36 Hospital Course: Per HPI: KAMILAH MCKEON, is a 79 F who presents from assisted living with concerns of a stroke. Currently NIH is 0 but they noted slurred speech and right facial droop. She does have a dry mouth so I do not think that she mostly has dysarthria at this time. She is already on Eliquis for history of DVT and is on blood pressure medications. She says that she feels fine and is back to her baseline. Workup in the ER was unremarkable, CTA of the head and neck was negative for an LVO and CT of the brain was also negative for hemorrhage. Hospital Course: 1. TIA???79-year-old female presented to the hospital from assisted living with concerns of a stroke as she had a slight facial droop and what they felt was slurred speech. On arrival to the ER her NIH was 0 and MRI was negative for stroke. Echocardiogram is currently pending but I do not believe that it is necessary to delay discharge given the fact that her MRI was unremarkable also she is already on Eliquis and her CT of the head and neck was normal. Will continue with her home pravastatin as well with no additional changes to her medications per neurology. I discussed with her the plan for discharge today and she expressed understanding of the risks and benefits of going back to the assisted living, and would like to go today. I do recommend she follow-up with her PCP in 3 to 5 days but no real need to follow-up with neurology as an outpatient 2. Essential hypertension, hyperlipidemia, history of DVT, anxiety, depression, dementia, GERD, gout, osteoporosis are all chronic medical conditions which complicate her care. Her home medications were continued whe (more content not included)... [facility] 02-09-2025 Discharge summary Note Date/Time February 09, 2025 10:22am [facility] Medical Records Department [address] [place] [address] Instructions for Home/Discharge Instructions 02/09/25 1020 MR#: [id number] Acct: [id number] Name: KAMILAH MCKEON Rep #:[id number] : 1945 79 From: Jaciel singleton MD PCP: Gerda Wilks MD Status:ADM BALBINA Discharge Instructions Diet Discharge Diet: Low fat / Low cholesterol DC O2, CPAP, BIPAP needs Home O2 Discharge instructions: No Dressing / Incision Discharge Activity: Return to Normal Activity Dressing / Incision Call your doctor if you observe: Fever of 101 or Higher, Shortness of breath, Dizziness, Fainting spells, Swelling in the ankles, Chest pain and Increased palpitations (irregular heartbeat) Follow Up Care Test Results: Test results from this visit will be discussed in further detail at your follow-up appointment, if applicable. Discharge Plan Admission Admit Date/Time: 02/07/25 11:50 Attending Provider: Jaciel Olivier Primary Care Provider: Gerda Wilks Consulting Providers: Anatoly Whalen; Abdiel Eugene; Cynthia Padilla; Mayte Philippe; Irene Bragg; Yash Stevenson; Tania Scott; Carlos Rob; Kam Reed; Vaibhav Chappell; Nevaeh Hartman; Rogelio Novak; Anahi Mario; Nirali Up; Hossein Foster; Kurt Rodriguez; Robi Mendez; Marco Antonio Lowe; Zainab Marti; Geovani Gregg Discharge Orders/Prescriptions Prescriptions: Continued alendronate 70 mg tablet 70 mg PO MO allopurinol 100 mg tablet 200 mg PO DAILY omeprazole 20 mg capsule,delayed release(DR/EC) 20 mg PO DAILY pravastatin 20 mg tablet 20 mg PO QHS fluticasone propionate 50 mcg/actuation spray,suspension 1 spray INTRANASAL DAILY loratadine 10 mg tablet 10 mg PO DAILY bupropion HCl 200 mg tablet sustained-release 12 hr 200 mg PO BID potassium chloride [Klor-Con M10] 10 mEq tablet,ER particles/crystals 10 meq PO DAILY tramadol 50 mg tablet 50 mg PO Q12H PRN (Reason: Pain) donepezil 10 mg tablet 10 mg PO QHS cinacalcet 30 mg tablet 30 mg PO DAILY clonazepam 0.5 mg tablet 0.5 mg PO QHS docusate sodium [Col-Rite] 100 mg capsule 100 mg PO DAILY Eliquis 5 mg tablet 5 mg PO BID guaifenesin [Adult Tussin Chest Congestion] 100 mg/5 mL liquid 200 mg PO Q4H PRN (Reason: congestion) losartan 50 mg tablet 50 mg PO DAILY metoprolol tartrate 25 mg tablet 12.5 mg PO BID minoxidil 2.5 mg tablet 2.5 mg PO DAILY sertraline 50 mg tablet 75 mg PO DAILY torsemide 10 mg tablet 10 mg PO DAILY Patient Comments: PT TAKES IN AFTERNOON. ondansetron HCl 4 mg tablet 4 mg PO Q8H PRN (Reason: nausea and vomiting) guaifenesin [Mucinex] 600 mg tablet extended release 12hr 600 mg PO BID AsperFlex(m.salicylat-menthol) 15-10 % cream 1 applic topical Q12H PRN (Reason: muscle pain) magnesium hydroxide [Dulcolax (magnesium hydroxide)] 400 mg/5 mL suspension 30 ml PO DAILY PRN (Reason: constipation) aluminum-magnesium hydroxide 200-200 mg/5 mL suspension 30 ml PO Q4H PRN (Reason: GI bleeding prophylaxis) acetaminophen [Tylenol] 325 mg Tablet 650 mg PO QHS PRN (Reason: Pain Score 1-10/Temp > 100.7 F) polyethylene glycol 3350 [Miralax] 17 gram/dose powder 17 g PO DAILY PRN (Reason: constipation) Referrals / Follow Up: Gerda Wilks MD [Primary Care Provider] - Within 1 Week Disposition Disposition (needs filled in before D/C Order can be placed): Home, Self Care 02/09/25 1023<Electronically signed by Jaciel Olivier MD>Jaciel Olivier MD CC: [place]te Philippe; Anahi Mario; Kurt Rodriguez; Irene Bragg MD; Cynthia Padilla MD; Anatoly Whalen MD; Dr. Abdiel Eugene MD; Dr. Yash Stevenson MD; Dr. Rosmery MD; Dr. Kam Reed MD; Dr. Carlos Rob MD; Dr. Vaibhav Chappell MD; Dr. Rogelio Novak DO; Dr. Hossein Foster MD; Dr. Nirali Up MD; Dr. Robi Mendez MD; Dr. Marco Antonio Lowe MD; Dr. Zainab Marti MD; Gerda Wilks MD; Nevaeh Hartman DO; Geovani Gregg MD ~ Signed [facility] Work Phone: [phone] Discharge summary [facility] Medical Records Department [address] [place] [address] Instructions for Home/Discharge Instructions 02/09/25 1020 MR#: [id number] Acct: [id number] Name: KAMILAH MCKEON Rep #:[id number] : 1945 79 From: Jaciel singleton MD PCP: Gerda Wilks MD Status:ADM BALBINA Discharge Instructions Diet Discharge Diet: Low fat / Low cholesterol DC O2, CPAP, BIPAP needs Home O2 Discharge instructions: No Dressing / Incision Discharge Activity: Return to Normal Activity Dressing / Incision Call your doctor if you observe: Fever of 101 or Higher, Shortness of breath, Dizziness, Fainting spells, Swelling in the ankles, Chest pain and Increased palpitations (irregular heartbeat) Follow Up Care Test Results: Test results from this visit will be discussed in further detail at your follow- up appointment, if applicable. Discharge Plan Admission Admit Date/Time: 02/07/25 11:50 Attending Provider: Jaciel Olivier Primary Care Provider: Gerda Wilks Consulting Providers: Anatoly Whalen; Abdiel Eugene; Cynthia Padilla; [place] Philippe; Irene Bragg; Yash Stevenson; Tania Scott; Carlos Rob; Kam Reed; Vaibhav Chappell; Nevaeh Hartman; Rogelio Novak; Anahi Mario; Nirali Up; Hossein Foster; Kurt Rodriguez; Robi Mendez; Marco Antonio Lowe; Zainab Marti; Geovani Gregg Discharge Orders/Prescriptions Prescriptions: Continued alendronate 70 mg tablet 70 mg PO MO allopurinol 100 mg tablet 200 mg PO DAILY omeprazole 20 mg capsule,delayed release(DR/EC) 20 mg PO DAILY pravastatin 20 mg tablet 20 mg PO QHS fluticasone propionate 50 mcg/actuation spray,suspension 1 spray INTRANASAL DAILY loratadine 10 mg tablet 10 mg PO DAILY bupropion HCl 200 mg tablet sustained-release 12 hr 200 mg PO BID potassium chloride [Klor-Con M10] 10 mEq tablet,ER particles/crystals 10 meq PO DAILY tramadol 50 mg tablet 50 mg PO Q12H PRN (Reason: Pain) donepezil 10 mg tablet 10 mg PO QHS cinacalcet 30 mg tablet 30 mg PO DAILY clonazepam 0.5 mg tablet 0.5 mg PO QHS docusate sodium [Col-Rite] 100 mg capsule 100 mg PO DAILY Eliquis 5 mg tablet 5 mg PO BID guaifenesin [Adult Tussin Chest Congestion] 100 mg/5 mL liquid 200 mg PO Q4H PRN (Reason: congestion) losartan 50 mg tablet 50 mg PO DAILY metoprolol tartrate 25 mg tablet 12.5 mg PO BID minoxidil 2.5 mg tablet 2.5 mg PO DAILY sertraline 50 mg tablet 75 mg PO DAILY torsemide 10 mg tablet 10 mg PO DAILY Patient Comments: PT TAKES IN AFTERNOON. ondansetron HCl 4 mg tablet 4 mg PO Q8H PRN (Reason: nausea and vomiting) guaifenesin [Mucinex] 600 mg tablet extended release 12hr 600 mg PO BID AsperFlex(m.salicylat-menthol) 15-10 % cream 1 applic topical Q12H PRN (Reason: muscle pain) magnesium hydroxide [Dulcolax (magnesium hydroxide)] 400 mg/5 mL suspension 30 ml PO DAILY PRN (Reason: constipation) aluminum-magnesium hydroxide 200-200 mg/5 mL suspension 30 ml PO Q4H PRN (Reason: GI bleeding prophylaxis) acetaminophen [Tylenol] 325 mg Tablet 650 mg PO QHS PRN (Reason: Pain Score 1-10/Temp > 100.7 F) polyethylene glycol 3350 [Miralax] 17 gram/dose powder 17 g PO DAILY PRN (Reason: constipation) Referrals / Follow Up: Gerda Wilks MD [Primary Care Provider] - Within 1 Week Disposition Disposition (needs filled in before D/C Order can be placed): Home, Self Care 02/09/25 1023Jaciel Olivier MD CC: [place] Philippe; Anahi Mario; Kurt Rodriguez; Irene Bragg MD; Cynthia Padilla MD; Anatoly Whalen MD; Dr. Abdiel Eugene MD; Dr. Yash Stevenson MD; Dr. Rosmery MD; Dr. Kam Reed MD; Dr. Carlos Rob MD; Dr. Vaibhav Chappell MD; Dr. Rogelio Novak DO; Dr. Hossein Foster MD; Dr. Nirali Up MD; Dr. Robi Mendez MD; Dr. Marco Antonio Lowe MD; Dr. Zainab Marti MD; Gerda Wilks MD; Nevaeh Hartman DO; Geovani Gregg MD ~ [facility]06-15-2025 Progress note Author Yash Wilsonlati [facility] Note Date/Time February 08, 2025 1:09 pm [facility] Medical Records Department [address] [place] [address] Progress Note - Neurology 02/08/25 1258 MR#: [id number] Acct: [id number] Name: KAMILAH MCKEON Rep #:[id number] : 1945 79 From: Yash Acosta PCP: Gerda Wilks MD Status:ADM BALBINA Location: [place] [address] Assessment and Plan: Neuro Assessment/Plan 79 yo F w PMH DVT, HTN on eliquis p/w after an episode of dysarthria. Also reports of right facial droop whereas the patient denies these symptoms and she reports that due to not her bottom denture in place, others might have thought of dysarthria. LDL-77. CT Head- no acute intracranial process. CTA- no LVO. Today, she reports feeling better with NIHSS-0. Diagnosis: Possible TIA Plan: Continue eliquis and statin. Follow up MRI brain. 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 Control of vascular risk factors. I personally attended this patient and spent a total time of 35 minutes evaluating this patient including clinical assessment, review of chart, medical history imaging, and determining appropriate treatment and workup. Subject: Neurology Subjective 79 yo F w PMH DVT, HTN on eliquis p/w after an episode of dysarthria. Also reports of right facial droop whereas the patient denies these symptoms and she reports that due to not her bottom denture in place, others might have thought of dysarthria. LDL-77. CT Head- no acute intracranial process. CTA- no LVO. Today, she reports feeling better with NIHSS-0. EEG Results Procedure Details EEG Procedure Details: KAMILAH MCKEON is a 79 year old F with a past medical history of , who presents for evaluation of Electroencephalogram on DATE at TIME Objective Data Objective Data Vital Signs: Vital Signs Temp Pulse Resp BP Pulse Ox O2 Del Method O2 Flow Rate 98.8 F 78 15 123/51 H 95 Room Air 2 02/08/25 12:12 02/08/25 12:12 02/08/25 12:12 02/08/25 12:12 02/08/25 12:12 02/08/25 12:12 02/08/25 07:36 Oxygen Flow Rate (L/min) 2 Oxygen Delivery Method Room Air Weight: 70.6 kg Body Mass Index (BMI) 33.7 Intake & Output: Intake and Output for Last 24 Hours 02/06/25 02/07/25 02/08/25 23:59 23:59 23:59 Intake Total 1580 / 1580 600 / 600 Balance 1580 / 1580 600 / 600 Lab / Micro Data 02/08/25 06:30 02/08/25 06:30 Labs: Laboratory Results - last 24 hr 02/07/25 15:45: Troponin T Hi Sens 4Hr 11 02/08/25 06:30: WBC 5.3, RBC 3.87 L, Hgb 11.3 L, Hct 35.9 L, MCV 92.8, MCH 29.2,MCHC 31.5 L, RDW Std Deviation 54.4 H, RDW Coeff of Michele 15.9 H, Plt Count 211, MPV 11.1, Immature Gran % (Auto) 0.400, Neut % (Auto) 54.5, Lymph % (Auto) 29.1,Mathews % (Auto) 9.4, Eos % (Auto) 5.3 H, Baso % (Auto) 1.3 H, Absolute Neuts (auto) 2.9, Absolute Lymphs (auto) 1.55, Nucleated RBC % 0, Sodium 143, Potassium 3.9, Chloride 110 H, Carbon Dioxide 23.6, Anion Gap 9, BUN 14, Creatinine 0.76, Estim Creat Clear Calc 51.63, Est GFR (MDRD) Non-Af 81, BUN/Creatinine Ratio 18.7, Glucose 103 H, Calcium 9.5, Triglycerides 147, Cholesterol 152, LDL Cholesterol, Calc 77, VLDL Cholesterol 29, HDL Cholesterol 45, Cholesterol/HDL Ratio 3.36 Physical Exam Narrative General: The patient appears nutritionally appropriate, well-groomed, and appears comfortable in no acute distress. Mental Status:? The patient?s mental status was normal including orientation.? Language was intact.? Cranial nerves:?Visual khanna full, and extra-ocular motion was intact. Symmetric face. Motor: Normal strength in all extremities. Sensation: Intact to touch in all extremities.? Coordination:? Bilateral finger to nose was normal.? There was no dysmetria. Gait:? deferred. NIHSS NIHSS Nursing Documentation NIHSS Nursing Documentation: NIHSS: Ischemic Stroke/TIA Start: 02/07/25 13:03 Text: For PCU Patients: NIH and Neuro Check every 4 Status: Active hours, PRN and with change in RN caregiver. Freq: [id number] Protocol: Activity Type Activity Date Activity User E-sign Co-sign Detail Recorded Client Recorded Date Recorded By Document 02/08/25 12:12 DS [id number] 02/08/25 12:20 DS 02/08/25 12:12 NIH Stroke Scale [NIHSS] A score of 0 is "normal" or asymptomatic . Total possible score is 42. Inpatient: RN or Physician to activate a stroke alert for onset of new stroke symptoms or with NIHSS increase >/= 3 points. Following change in neurological status, NIHSS will be performed per physician order or more frequently PRN. -1a. Level of Consciousness 0 - Alert; keenly responsive -1b. LOC Questions 0 - Answers BOTH questions correctly -1c. LOC Commands 0 - Performs BOTH tasks correctly -2. Best Gaze 0 - Normal -3. Visual 0 - No visual loss -4. Facial Palsy 1 - Minor paralysis ( flattened nasolabial fold , asymmetry on smiling) -5a. Left Arm 0 - No drift; arm holds 90 ( or 45) degrees for full 10 seconds -5b. Right Arm 0 - No drift; arm holds 90 ( or 45) degrees for full 10 seconds -6a. Left Leg 0 - No drift; leg holds 30- degree position for full 5 seconds -6b. Right Leg 0 - No drift; leg holds 30- degree position for full 5 seconds -7. Limb Ataxia 0 - Absent -8. Sensory 0 - Normal; no sensory loss -9. Best Language 0 - No aphasia; normal -10. Dysarthria 1 = Mild-to- moderate dysarthria; -11. Extinction and Inattention 0 - No abnormality -Total 2 Query Text:A score of 0 is "normal" or asymptomatic. Total possible score is 42 . ED: Notify Physician for NIHSS increase by > / = 3 points. Inpatient: RN or Physician to activate a stroke alert for NIHSS increase of > / = 3 points. Coma Scale [Assess] -Eye Opening Spontaneous -Motor Obeys Commands -Verbal Oriented [Total] -Coma Scale Total 15 NIHSS 1a. Level of Consciousness: 0 - Alert; keenly responsive 1b. LOC Questions: 0 - Answers BOTH questions correctly 1c. LOC Commands: 0 - Performs BOTH tasks correctly 2. Best Gaze: 0 - Normal 3. Visual: 0 - No visual loss 4. Facial Palsy: 0 - Normal symmetrical movements 5a. Left Arm: 0 - No drift; arm holds 90 (or 45) degrees for full 10 seconds 5b. Right Arm: 0 - No drift; arm holds 90 (or 45) degrees for full 10 seconds 6a. Left Le - No drift; leg holds 30-degree position for full 5 seconds 6b. Right Le - No drift; leg holds 30-degree position for full 5 seconds 7. Limb Ataxia: 0 - Absent 8. Sensory: 0 - Normal; no sensory loss 9. Best Language: 0 - No aphasia; normal 10. Dysarthria: 0 - Normal 11. Extinction and Inattention: 0 - No abnormality Total: 0 02/08/25 1309 <Electronically signed by Yash Stevenson MD> Cosigner Signature (if applicable): CC: ~ Signed [facility] Work Phone: 1(130) 558-554706-15-2025 Progress note Author Jaciel Olivier [facility] Note Date/Time February 08, 2025 12:4 9pm [facility] Medical Records Department [address] [place] [address] Progress Note - Hospitalist 02/08/25 1238 MR#: [id number] Acct: [id number] Name: KAMILAH MCKEON Rep #:[id number] : 1945 79 From: Jaciel singleton MD PCP: Gerda Wilks MD Status:ADM BALBINA Location: [place] [address] Subjective Subjective No issues, doing well. Objective Data Objective Data Vital Signs: Vital Signs Temp Pulse Resp BP Pulse Ox O2 Del Method O2 Flow Rate 98.8 F 78 15 123/51 H 95 Room Air 2 02/08/25 12:12 02/08/25 12:12 02/08/25 12:12 02/08/25 12:12 02/08/25 12:12 02/08/25 12:12 02/08/25 07:36 Oxygen Flow Rate (L/min) 2 Oxygen Delivery Method Room Air Weight: 155 lb 10.342 oz Body Mass Index (BMI) 33.7 Intake & Output: Intake and Output for Last 24 Hours 02/07/25 02/08/25 02/09/25 03:59 03:59 03:59 Intake Total 1580 / 1580 600 / 600 Balance 1580 / 1580 600 / 600 Lab / Micro Data 02/08/25 06:30 02/08/25 06:30 Labs: Laboratory Results - last 24 hr 02/07/25 11:50: Troponin T Hi Sens 2 Hr 9 02/07/25 15:45: Troponin T Hi Sens 4Hr 11 02/08/25 06:30: WBC 5.3, RBC 3.87 L, Hgb 11.3 L, Hct 35.9 L, MCV 92.8, MCH 29.2,MCHC 31.5 L, RDW Std Deviation 54.4 H, RDW Coeff of Michele 15.9 H, Plt Count 211, MPV 11.1, Immature Gran % (Auto) 0.400, Neut % (Auto) 54.5, Lymph % (Auto) 29.1,Mathews % (Auto) 9.4, Eos % (Auto) 5.3 H, Baso % (Auto) 1.3 H, Absolute Neuts (auto) 2.9, Absolute Lymphs (auto) 1.55, Nucleated RBC % 0, Sodium 143, Potassium 3.9, Chloride 110 H, Carbon Dioxide 23.6, Anion Gap 9, BUN 14, Creatinine 0.76, Estim Creat Clear Calc 51.63, Est GFR (MDRD) Non-Af 81, BUN/Creatinine Ratio 18.7, Glucose 103 H, Calcium 9.5, Triglycerides 147, Cholesterol 152, LDL Cholesterol, Calc 77, VLDL Cholesterol 29, HDL Cholesterol 45, Cholesterol/HDL Ratio 3.36 Physical Exam Narrative General: Alert, Oriented x3, Cooperative, No apparent distress HEENT: Atraumatic, PERRLA, EOMI, Normocephalic Oral: Moist Mucosa Neck: Supple, No JVD Lungs: Diminished, Normal air movement, No rhonchi, No wheeze, No rales Cardiovascular: Regular rate, Regular Rhythm, Normal S1, Normal S2, No murmurs Abdomen: Soft, Non Tender, Non-Distended, No Hepato-splenomegaly Extremities: No edema, Capillary Refill Less than 3 Seconds Skin: No rashes, No breakdown Musculoskeletal: No Tenderness to Palpation of Joints or Extremities Neurological: No focal neurological deficits, moves all extremities, sensation is intact, NIH 0 Psych/Mental Status: Normal Affect, Appropriate Assessment & Plan Assessment/Plan (1) TIA (transient ischemic attack): PLAN: Plan 1. TIA versus CVA ? Will obtain an MRI ? Will obtain an echo ? PT/OT ? She is already on Eliquis, will add aspirin in case this is small vessel issues ? Will allow permissive hypertension and hold her home blood pressure medications 2. Essential HTN/HLD ? Will hold her home blood pressure medications to allow permissive hypertensionfor her TIA ? Will continue with her home pravastatin ? Will monitor make adjustments as necessary 3. History of DVT ? Will continue with her home Eliquis if MRI is negative 4. Anxiety/depression/dementia ? Stable ? Continue with her home medications 5. GERD ? Stable ? Continue with her PPI 6. Gout ? Stable ? Continue with allopurinol 7. Osteoporosis ? Continue with her home alendronate and Cinacalcet ? Stable DVT: SCDs Charges/Coding Visit Charges Inpatient E&M: 64072 Subs Hosp L2 NIHSS NIHSS Nursing Documentation NIHSS Nursing Documentation: NIHSS: Ischemic Stroke/TIA Start: 02/07/25 13:03 Text: For PCU Patients: NIH and Neuro Check every 4 Status: Active hours, PRN and with change in RN caregiver. Freq: [id number] Protocol: Activity Type Activity Date Activity User E-sign Co-sign Detail Recorded Client Recorded Date Recorded By Document 02/08/25 12:12 DS [id number] 02/08/25 12:20 DS 02/08/25 12:12 NIH Stroke Scale [NIHSS] A score of 0 is "normal" or asymptomatic . Total possible score is 42. Inpatient: RN or Physician to activate a stroke alert for onset of new stroke symptoms or with NIHSS increase >/= 3 points. Following change in neurological status, NIHSS will be performed per physician order or more frequently PRN. -1a. Level of Consciousness 0 - Alert; keenly responsive -1b. LOC Questions 0 - Answers BOTH questions correctly -1c. LOC Commands 0 - Performs BOTH tasks correctly -2. Best Gaze 0 - Normal -3. Visual 0 - No visual loss -4. Facial Palsy 1 - Minor paralysis ( flattened nasolabial fold , asymmetry on smiling) -5a. Left Arm 0 - No drift; arm holds 90 ( or 45) degrees for full 10 seconds -5b. Right Arm 0 - No drift; arm holds 90 ( or 45) degrees for full 10 seconds -6a. Left Leg 0 - No drift; leg holds 30- degree position for full 5 seconds -6b. Right Leg 0 - No drift; leg holds 30- degree position for full 5 seconds -7. Limb Ataxia 0 - Absent -8. Sensory 0 - Normal; no sensory loss -9. Best Language 0 - No aphasia; normal -10. Dysarthria 1 = Mild-to- moderate dysarthria; -11. Extinction and Inattention 0 - No abnormality -Total 2 Query Text:A score of 0 is "normal" or asymptomatic. Total possible score is 42 . ED: Notify Physician for NIHSS increase by > / = 3 points. Inpatient: RN or Physician to activate a stroke alert for NIHSS increase of > / = 3 points. Coma Scale [Assess] -Eye Opening Spontaneous -Motor Obeys Commands -Verbal Oriented [Total] -Coma Scale Total 15 02/08/25 1249 <Electronically signed by Jaciel Olivier MD> Cosigner Signature (if applicable): CC: ~ Signed [facility] Work Phone: 1(674) 302-538606-15-2025 Progress note [facility] Medical Records Department [address] [place] [address] Progress Note - Neurology 02/08/25 1258 MR#: [id number] Acct: [id number] Name: KAMILAH MCKEON Rep #:[id number] : 1945 79 From: Yash Acosta PCP: Gerda Wilks MD Status:ADM BALBINA Location: [place] [address] Assessment and Plan: Neuro Assessment/Plan 79 yo F w PMH DVT, HTN on eliquis p/w after an episode of dysarthria. Also reports of right facial droop whereas the patient denies these symptoms and she reports that due to not her bottom denture in place, others might have thought of dysarthria. LDL-77. CT Head- no acute intracranial process. CTA- no LVO. Today, she reports feeling better with NIHSS-0. Diagnosis: Possible TIA Plan: Continue eliquis and statin. Follow up MRI brain. 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 Control of vascular risk factors. I personally attended this patient and spent a total time of 35 minutes evaluating this patient including clinical assessment, review of chart, medical history imaging, and determining appropriate treatment and workup. Subject: Neurology Subjective 79 yo F w PMH DVT, HTN on eliquis p/w after an episode of dysarthria. Also reports of right facial droop whereas the patient denies these symptoms and she reports that due to not her bottom denture in place, others might have thought of dysarthria. LDL-77. CT Head- no acute intracranial process. CTA- no LVO. Today, she reports feeling better with NIHSS-0. EEG Results Procedure Details EEG Procedure Details: KAMILAH MCKEON is a 79 year old F with a past medical history of , who presents for evaluation ofElectroencephalogram on DATE at TIME Objective Data Objective Data Vital Signs: Vital Signs Temp Pulse Resp BP Pulse Ox O2 Del Method O2 Flow Rate 98.8 F 78 15 123/51 H 95 Room Air 2 02/08/25 12:12 02/08/25 12:12 02/08/25 12:12 02/08/25 12:12 02/08/25 12:12 02/08/25 12:12 02/08/25 07:36 Oxygen Flow Rate (L/min) 2 Oxygen Delivery Method Room Air Weight: 70.6 kg Body Mass Index (BMI) 33.7 Intake & Output: Intake and Output for Last 24 Hours 02/06/25 02/07/25 02/08/25 23:59 23:59 23:59 Intake Total 1580 / 1580 600 / 600 Balance 1580 / 1580 600 / 600 Lab / Micro Data 02/08/25 06:30 02/08/25 06:30 Labs: Laboratory Results - last 24 hr 02/07/25 15:45: Troponin T Hi Sens 4Hr 11 02/08/25 06:30: WBC 5.3, RBC 3.87 L, Hgb 11.3 L, Hct 35.9 L, MCV 92.8, MCH 29.2,MCHC 31.5 L, RDW Std Deviation 54.4 H, RDW Coeff of Michele 15.9 H, Plt Count 211, MPV 11.1, Immature Gran % (Auto) 0.400, Neut % (Auto) 54.5, Lymph % (Auto) 29.1,Mathews % (Auto) 9.4, Eos % (Auto) 5.3 H, Baso % (Auto) 1.3 H, Absolute Neuts (auto) 2.9, Absolute Lymphs (auto) 1.55, Nucleated RBC % 0, Sodium 143, Potassium 3.9, Chloride 110 H, Carbon Dioxide 23.6, Anion Gap 9, BUN 14, Creatinine 0.76, Estim Creat Clear Calc 51.63, Est GFR (MDRD) Non-Af 81, BUN/Creatinine Ratio 18.7, Glucose 103 H, Calcium 9.5, Triglycerides 147, Cholesterol 152, LDL Cholesterol, Calc 77, VLDL Cholesterol 29, HDL Cholesterol 45, Cholesterol/HDL Ratio 3.36 Physical Exam Narrative General: The patient appears nutritionally appropriate, well-groomed, and appears comfortable in noacute distress. Mental Status:? The patient?s mental status was normal including orientation.? Language was intact.? Cranial nerves:?Visual khanna full, and extra-ocular motion was intact. Symmetric face. Motor: Normal strength in all extremities. Sensation: Intact to touch in all extremities.? Coordination:? Bilateral finger to nose was normal.? There was no dysmetria. Gait:? deferred. NIHSS NIHSS Nursing Documentation NIHSS Nursing Documentation: NIHSS: Ischemic Stroke/TIA Start: 02/07/25 13:03 Text: For PCU Patients: NIH and Neuro Check every 4 Status: Active hours, PRN and with change in RN caregiver. Freq: [id number] Protocol: Activity Type Activity Date Activity User E-sign Co-sign Detail Recorded Client Recorded Date Recorded By Document 02/08/25 12:12 DS [id number] 02/08/25 12:20 DS 02/08/25 12:12 NIH Stroke Scale [NIHSS] A score of 0 is "normal" or asymptomatic . Total possible score is 42. Inpatient: RN or Physician to activate a stroke alert for onset of new stroke symptoms or with NIHSS increase >/= 3 points. Following change in neurological status, NIHSS will be performed per physician order or more frequently PRN. -1a. Level of Consciousness 0 - Alert; keenly responsive -1b. LOC Questions 0 - Answers BOTH questions correctly -1c. LOC Commands 0 - Performs BOTH tasks correctly -2. Best Gaze 0 - Normal -3. Visual 0 - No visual loss -4. Facial Palsy 1 - Minor paralysis ( flattened nasolabial fold , asymmetry on smiling) -5a. Left Arm 0 - No drift; arm holds 90 ( or 45) degrees for full 10 seconds -5b. Right Arm 0 - No drift; arm holds 90 ( or 45) degrees for full 10 seconds -6a. Left Leg 0 - No drift; leg holds 30- degree position for full 5 seconds -6b. Right Leg 0 - No drift; leg holds 30- degree position for full 5 seconds -7. Limb Ataxia 0 - Absent -8. Sensory 0 - Normal; no sensory loss -9. Best Language 0 - No aphasia; normal -10. Dysarthria 1 = Mild-to- moderate dysarthria; -11. Extinction and Inattention 0 - No abnormality -Total 2 Query Text:A score of 0 is "normal" or asymptomatic. Total possible score is 42 . ED: Notify Physician for NIHSS increase by > / = 3 points. Inpatient: RN or Physician to activate a stroke alert for NIHSS increase of > / = 3 points. Coma Scale [Assess] -Eye Opening Spontaneous -Motor Obeys Commands -Verbal Oriented [Total] -Coma Scale Total 15 NIHSS 1a. Level of Consciousness: 0 - Alert; keenly responsive 1b. LOC Questions: 0 - Answers BOTH questions correctly 1c. LOC Commands: 0 - Performs BOTH tasks correctly 2. Best Gaze: 0 - Normal 3. Visual: 0 - No visual loss 4. Facial Palsy: 0 - Normal symmetrical movements 5a. Left Arm: 0 - No drift; arm holds 90 (or 45) degrees for full 10 seconds 5b. Right Arm: 0 - No drift; arm holds 90 (or 45) degrees for full 10 seconds 6a. Left Le - No drift; leg holds 30-degree position for full 5 seconds 6b. Right Le - No drift; leg holds 30-degree position for full 5 seconds 7. Limb Ataxia: 0 - Absent 8. Sensory: 0 - Normal; no sensory loss 9. Best Language: 0 - No aphasia; normal 10. Dysarthria: 0 - Normal 11. Extinction and Inattention: 0 - No abnormality Total: 0 02/08/25 1309 Cosigner Signature (if applicable): CC: ~ Signed [facility]06-15-2025 Progress note [facility] Medical Records Department [address] [place] [address] Progress Note - Hospitalist 02/08/25 1238 MR#: [id number] Acct: [id number] Name: KAMILAH MCKEON Rep #:[id number] : 1945 79 From: Jaciel singleton MD PCP: Gerda Wilks MD Status:ADM BALBINA Location: [place] [address] Subjective Subjective No issues, doing well. Objective Data Objective Data Vital Signs: Vital Signs Temp Pulse Resp BP Pulse Ox O2 Del Method O2 Flow Rate 98.8 F 78 15 123/51 H 95 Room Air 2 02/08/25 12:12 02/08/25 12:12 02/08/25 12:12 02/08/25 12:12 02/08/25 12:12 02/08/25 12:12 02/08/25 07:36 Oxygen Flow Rate (L/min) 2 Oxygen Delivery Method Room Air Weight: 155 lb 10.342 oz Body Mass Index (BMI) 33.7 Intake & Output: Intake and Output for Last 24 Hours 02/07/25 02/08/25 02/09/25 03:59 03:59 03:59 Intake Total 1580 / 1580 600 / 600 Balance 1580 / 1580 600 / 600 Lab / Micro Data 02/08/25 06:30 02/08/25 06:30 Labs: Laboratory Results - last 24 hr 02/07/25 11:50: Troponin T Hi Sens 2 Hr 9 02/07/25 15:45: Troponin T Hi Sens 4Hr 11 02/08/25 06:30: WBC 5.3, RBC 3.87 L, Hgb 11.3 L, Hct 35.9 L, MCV 92.8, MCH 29.2,MCHC 31.5 L, RDW Std Deviation 54.4 H, RDW Coeff of Michele 15.9 H, Plt Count 211, MPV 11.1, Immature Gran % (Auto) 0.400, Neut % (Auto) 54.5, Lymph % (Auto) 29.1,Mathews % (Auto) 9.4, Eos % (Auto) 5.3 H, Baso % (Auto) 1.3 H, Absolute Neuts (auto) 2.9, Absolute Lymphs (auto) 1.55, Nucleated RBC % 0, Sodium 143, Potassium 3.9, Chloride 110 H, Carbon Dioxide 23.6, Anion Gap 9, BUN 14, Creatinine 0.76, Estim Creat Clear Calc 51.63, Est GFR (MDRD) Non-Af 81, BUN/Creatinine Ratio 18.7, Glucose 103 H, Calcium 9.5, Triglycerides 147, Cholesterol 152, LDL Cholesterol, Calc 77, VLDL Cholesterol 29, HDL Cholesterol 45, Cholesterol/HDL Ratio 3.36 Physical Exam Narrative General: Alert, Oriented x3, Cooperative, No apparent distress HEENT: Atraumatic, PERRLA, EOMI, Normocephalic Oral: Moist Mucosa Neck: Supple, No JVD Lungs: Diminished, Normal air movement, No rhonchi, No wheeze, No rales Cardiovascular: Regular rate, Regular Rhythm, Normal S1, Normal S2, No murmurs Abdomen: Soft, Non Tender, Non-Distended, No Hepato-splenomegaly Extremities: No edema, Capillary Refill Less than 3 Seconds Skin: No rashes, No breakdown Musculoskeletal: No Tenderness to Palpation of Joints or Extremities Neurological: No focal neurological deficits, moves all extremities, sensation is intact, NIH 0 Psych/Mental Status: Normal Affect, Appropriate Assessment & Plan Assessment/Plan (1) TIA (transient ischemic attack): PLAN: Plan 1. TIA versus CVA ? Will obtain an MRI ? Will obtain an echo ? PT/OT ? She is already on Eliquis, will add aspirin in case this is small vessel issues ? Will allow permissive hypertension and hold her home blood pressure medications 2. Essential HTN/HLD ? Will hold her home blood pressure medications to allow permissive hypertensionfor her TIA ? Will continue with her home pravastatin ? Will monitor make adjustments as necessary 3. History of DVT ? Will continue with her home Eliquis if MRI is negative 4. Anxiety/depression/dementia ? Stable ? Continue with her home medications 5. GERD ? Stable ? Continue with her PPI 6. Gout ? Stable ? Continue with allopurinol 7. Osteoporosis ? Continue with her home alendronate and Cinacalcet ? Stable DVT: SCDs Charges/Coding Visit Charges Inpatient E&M: 72739 Subs Hosp L2 NIHSS NIHSS Nursing Documentation NIHSS Nursing Documentation: NIHSS: Ischemic Stroke/TIA Start: 02/07/25 13:03 Text: For PCU Patients: NIH and Neuro Check every 4 Status: Active hours, PRN and with change in RN caregiver. Freq: [id number] Protocol: Activity Type Activity Date Activity User E-sign Co-sign Detail Recorded Client Recorded Date Recorded By Document 02/08/25 12:12 DS [id number] 02/08/25 12:20 DS 02/08/25 12:12 NIH Stroke Scale [NIHSS] A score of 0 is "normal" or asymptomatic . Total possible score is 42. Inpatient: RN or Physician to activate a stroke alert for onset of new stroke symptoms or with NIHSS increase >/= 3 points. Following change in neurological status, NIHSS will be performed per physician order or more frequently PRN. -1a. Level of Consciousness 0 - Alert; keenly responsive -1b. LOC Questions 0 - Answers BOTH questions correctly -1c. LOC Commands 0 - Performs BOTH tasks correctly -2. Best Gaze 0 - Normal -3. Visual 0 - No visual loss -4. Facial Palsy 1 - Minor paralysis ( flattened nasolabial fold , asymmetry on smiling) -5a. Left Arm 0 - No drift; arm holds 90 ( or 45) degrees for full 10 seconds -5b. Right Arm 0 - No drift; arm holds 90 ( or 45) degrees for full 10 seconds -6a. Left Leg 0 - No drift; leg holds 30- degree position for full 5 seconds -6b. Right Leg 0 - No drift; leg holds 30- degree position for full 5 seconds -7. Limb Ataxia 0 - Absent -8. Sensory 0 - Normal; no sensory loss -9. Best Language 0 - No aphasia; normal -10. Dysarthria 1 = Mild-to- moderate dysarthria; -11. Extinction and Inattention 0 - No abnormality -Total 2 Query Text:A score of 0 is "normal" or asymptomatic. Total possible score is 42 . ED: Notify Physician for NIHSS increase by > / = 3 points. Inpatient: RN or Physician to activate a stroke alert for NIHSS increase of > / = 3 points. Coma Scale [Assess] -Eye Opening Spontaneous -Motor Obeys Commands -Verbal Oriented [Total] -Coma Scale Total 15 02/08/25 1249 Cosigner Signature (if applicable): CC: ~ Signed [facility]06-14-2025 History and physical note Author Jaciel Olivier [facility] Note Date/Time February 07, 2025 5:09 pm [facility] Medical Records Department [address] [place] [address] H&P Exam - Hospitalist 02/07/25 1401 MR#: [id number] Acct: [id number] Name: KAMILAH MCKEON Rep #:[id number] : 1945 79 From: Jaciel singleton MD PCP: Gerda Wilks MD Status:ADM BALBINA Location: [place] [address] HPI - General General Date of Admission: 02/07/25 HPI Narrative KAMILAH MCKEON, is a 79 F who presents from assisted living with concerns of a stroke. Currently NIH is 0 but they noted slurred speech and right facial droop. She does have a dry mouth so I do not think that she mostly has dysarthria at this time. She is already on Eliquis for history of DVT and is onblood pressure medications. She says that she feels fine and is back to her baseline. Workup in the ER was unremarkable, CTA of the head and neck was negative for an LVO and CT of the brain was also negative for hemorrhage. [facility] Medical History Injury of back Rectal bleeding Constipation Anticoagulated Presbyopia Unspecified nondisplaced fracture of sixth cervical vertebra, initial encounter for closed fracture Weakness Anxiety disorder, unspecified Age-related osteoporosis without current pathological fracture Other fracture of right lower leg, subsequent encounter for closed fracture withroutine healing DVT (deep venous thrombosis) GERD (gastroesophageal reflux disease) Depression Hyperlipidemia Hypertension Home Medications ?Medication ?Instructions ?Recorded ?Last Taken ?Type alendronate 70 mg tablet 70 mg PO MO OSTEOPOROSIS 08/16 Unknown History allopurinol 100 mg tablet 200 mg PO DAILY GOUT 1 Unknown History bupropion HCl 200 mg tablet,12 hr 200 mg PO BID mood 1 10/08/20 Unknown History sustained-release fluticasone propionate 50 1 spray intranasal DAILY all ergies 08/07/21 Unknown History mcg/actuation nasal spray,suspension loratadine 10 mg tablet 10 mg PO DAILY allergies 08/16 Unknown History omeprazole 20 mg capsule,delayed 20 mg PO DAILY reflux 08/07/21 Unknown History release potassium chloride 10 mEq 10 meq PO DAILY supplement 1 10/08/20 Unknown History tablet,extended release(part/cryst) (Klor-Con M) pravastatin 20 mg tablet 20 mg PO QHS cholesterol 08/16 Unknown History tramadol 50 mg tablet 50 mg PO Q12H PRN Pain 07/08 Unknown History acetaminophen 325 mg tablet 650 mg PO QHS PRN Pain Sco re 02/07/25 Unknown History (Tylenol) 1-10/Temp > 100.7 F aluminum-magnesium hydroxide 200 30 ml PO Q4H PRN GI b leeding 02/07/25 Unknown History mg-200 mg/5 mL oral suspension prophylaxis apixaban 5 mg tablet (Eliquis) 5 mg PO BID dvt 5 Unknown History cinacalcet 30 mg tablet 30 mg PO DAILY parathyroid 0 02/07/25 Unknown History clonazepam 0.5 mg tablet 0.5 mg PO QHS 02/07/25 Unkno wn History docusate sodium 100 mg capsule 100 mg PO DAILY CONSTIP ATION 02/07/25 Unknown History (Col-Rite) donepezil 10 mg tablet 10 mg PO QHS memory 02/07/25 Unknown History guaifenesin 100 mg/5 mL oral 200 mg PO Q4H PRN congest ion 02/07/25 Unknown History liquid (Adult Tussin Chest Congestion) guaifenesin 600 mg tablet, 600 mg PO BID 02/07/25 Unkn own History extended release 12 hr (Mucinex) losartan 50 mg tablet 50 mg PO DAILY bp 02/07/25 U nknown History magnesium hydroxide 400 mg/5 mL 30 ml PO DAILY PRN con stipation 02/07/25 Unknown History oral suspension (Dulcolax (magnesium hydroxide)) methyl salicylate 15 %-menthol 10 1 applic topical Q12 H PRN muscle 02/07/25 Unknown History % topical cream (AsperFlex (methyl pain salicylate-menthol)) metoprolol tartrate 25 mg tablet 12.5 mg PO BID heart 02/07/25 Unknown History minoxidil 2.5 mg tablet 2.5 mg PO DAILY bp 02/07/25 Unknown History ondansetron HCl 4 mg tablet 4 mg PO Q8H PRN nausea and vomiting 02/07/25 Unknown History polyethylene glycol 3350 17 17 g PO DAILY PRN constipa tion 02/07/25 Unknown History gram/dose oral powder (Miralax) sertraline 50 mg tablet 75 mg PO DAILY depression Unknown History torsemide 10 mg tablet 10 mg PO DAILY water pill Unknown History Allergy/AdvReac Type Severity Reaction Status Date / Time Latex, Natural Rubber AdvReac Rash Verified 02/07/25 09:31 Family History (Updated 02/07/25 @ 16:[address] Jaciel Olivier MD) Other CVA (cerebral vascular accident) Cancer Heart disease Surgical History (Updated 02/07/25 @ 16:[address] Jaciel Olivier MD) Status post hysterectomy Social History (Updated 02/07/25 @ 13:06 by Jaz Mon) housing: assisted living facility Smoking Status: Never smoker ROS Constitutional Constitutional: Denies chills, fatigue, fever(s) or malaise Eyes Eyes: Denies blurry vision ENT HEENT: Denies headache(s) or nasal discharge Cardiovascular Cardiovascular: Denies chest pain, dyspnea on exertion or syncope Respiratory/Chest Respiratory/Chest: Denies cough, shortness of breath at rest or shortness of breath with exertion Gastrointestinal Gastrointestinal: Denies constipation, diarrhea, nausea or vomiting Genitourinary Genitourinary: Denies dysuria Neurologic Neurologic: Reports abnormal speech; Denies focal weakness, numbness or tremor(s) Psychiatric Psychiatric: Denies anxiety or depression Vital Signs Vital Signs Vital Signs: 02/07/25 09:17 02/07/25 09:21 02/07/25 09:35 Temperature 97.8 F 97.8 F Temperature Source Oral Oral Pulse Rate 74 74 Respiratory Rate 19 H 19 H Blood Pressure 116/53 L 116/53 L Blood Pressure Mean 74 74 Blood Pressure Source Blood Pressure Position Blood Pressure Location Pulse Ox 91 91 96 Oxygen Delivery Method Room Air Room Air Nasal Cannula Oxygen Flow Rate (L/min) 2 02/07/25 09:37 02/07/25 09:45 02/07/25 09:47 Temperature Temperature Source Pulse Rate 77 71 Respiratory Rate 14 19 H Blood Pressure 112/51 L 110/55 L Blood Pressure Mean 71 73 Blood Pressure Source Blood Pressure Position Blood Pressure Location Pulse Ox 96 91 97 Oxygen Delivery Method Nasal Cannula Room Air Nasal Cannula Oxygen Flow Rate (L/min) 2 2 02/07/25 10:17 02/07/25 10:30 02/07/25 11:00 Temperature 97.8 F 97.9 F Temperature Source Oral Oral Pulse Rate 68 63 61 Respiratory Rate 18 16 18 Blood Pressure 96/46 L 136/62 H 130/60 H Blood Pressure Mean 62 86 83 Blood Pressure Source Blood Pressure Position Blood Pressure Location Pulse Ox 97 98 97 Oxygen Delivery Method Nasal Cannula Nasal Cannula Room Air Oxygen Flow Rate (L/min) 1 1 02/07/25 11:15 02/07/25 11:30 02/07/25 12:00 Temperature 97.9 F Temperature Source Pulse Rate 66 55 L 56 L Respiratory Rate 16 16 18 Blood Pressure 144/72 H 145/67 H 134/53 H Blood Pressure Mean 96 93 80 Blood Pressure Source Blood Pressure Position Blood Pressure Location Pulse Ox 96 96 96 Oxygen Delivery Method Room Air Room Air Oxygen Flow Rate (L/min) 02/07/25 12:30 02/07/25 13:20 Temperature 97.8 F Temperature Source Oral Pulse Rate 57 L 82 Respiratory Rate 18 17 Blood Pressure 115/65 107/93 H Blood Pressure Mean 81 97 Blood Pressure Source Monitor Blood Pressure Position Semi-Fowlers Blood Pressure Location Left Arm Pulse Ox 96 94 Oxygen Delivery Method Room Air Room Air Oxygen Flow Rate (L/min) Weight Weight: 155 lb 10.342 oz Body Mass Index (BMI) 33.7 Physical Exam Narrative General: Alert, Oriented x3, Cooperative, No apparent distress HEENT: Atraumatic, PERRLA, EOMI, Normocephalic Oral: Moist Mucosa Neck: Supple, No JVD Lungs: Diminished, Normal air movement, No rhonchi, No wheeze, No rales Cardiovascular: Regular rate, Regular Rhythm, Normal S1, Normal S2, No murmurs Abdomen: Soft, Non Tender, Non-Distended, No Hepato-splenomegaly Extremities: No edema, Capillary Refill Less than 3 Seconds Skin: No rashes, No breakdown Musculoskeletal: No Tenderness to Palpation of Joints or Extremities Neurological: No focal neurological deficits, moves all extremities, sensation is intact, NIH 0 Psych/Mental Status: Normal Affect, Appropriate Results Lab / Micro Data 02/07/25 09:31 02/07/25 09:31 Labs: Laboratory Results - last 24 hr 02/07/25 09:31: WBC 6.9, RBC 3.83 L, Hgb 11.4 L, Hct 35.0 L, MCV 91.4, MCH 29.8,MCHC 32.6, RDW Std Deviation 53.1 H, RDW Coeff of Michele 15.9 H, Plt Count 195, MPV10.6, Immature Gran % (Auto) 0.400, Neut % (Auto) 77.2 H, Lymph % (Auto) 12.9 L,Mathews % (Auto) 7.2, Eos % (Auto) 1.6, Baso % (Auto) 0.7, Absolute Neuts (auto) 5.3, Absolute Lymphs (auto) 0.89, Nucleated RBC % 0, PT 14.5, INR 1.1, APTT 33.3, Sodium 137, Potassium 4.0, Chloride 107, Carbon Dioxide 21.1, Anion Gap 9,BUN 18, Creatinine 0.77, Estim Creat Clear Calc 51.78, Est GFR (MDRD) Non-Af 79,BUN/Creatinine Ratio 23.7 H, Glucose 117 H, Calcium 9.3, Troponin T High Sens 9 02/07/25 11:10: Urine Color Yellow, Urine Clarity Clear, Urine pH 7.0, Ur Specific Lincoln 1.005, Urine Protein Negative, Urine Glucose (UA) Normal, UrineKetones Negative, Urine Occult Blood Negative, Urine Nitrite Negative, Urine Bilirubin Negative, Urine Urobilinogen Normal, Ur Leukocyte Esterase Negative, Urine RBC 0 SEEN, Urine WBC 0 SEEN, Ur Squamous Epith Cells 0 SEEN, Urine Bacteria 0 SEEN, Urine Mucus 0 SEEN 02/07/25 11:50: Troponin T Hi Sens 2 Hr 9 Imaging Radiology Impression Brain CT 02/07/25 09:17 IMPRESSION: No acute, large territorial infarction. Reading Location: [facility] Chest X-Ray 02/07/25 09:18 IMPRESSION: No acute process. Reading Location[facility] Head/Neck CTA 02/07/25 09:18 IMPRESSION: No acute large vessel occlusion or high-grade stenosis. Dr. Sibley was notified by Edson Rodriguez at 9:50am EST on 02/07/25 Reading Location: [facility] Assessment & Plan Assessment/Plan (1) TIA (transient ischemic attack): PLAN: Plan 1. TIA versus CVA ? Will obtain an MRI ? Will obtain an echo ? PT/OT ? She is already on Eliquis, will add aspirin in case this is small vessel issues ? Will allow permissive hypertension and hold her home blood pressure medications 2. Essential HTN/HLD ? Will hold her home blood pressure medications to allow permissive hypertensionfor her TIA ? Will continue with her home pravastatin ? Will monitor make adjustments as necessary 3. History of DVT ? Will continue with her home Eliquis 4. Anxiety/depression/dementia ? Stable ? Continue with her home medications 5. GERD ? Stable ? Continue with her PPI 6. Gout ? Stable ? Continue with allopurinol 7. Osteoporosis ? Continue with her home alendronate and Cinacalcet ? Stable DVT: Eliquis 56 minutes was spent on direct patient care, including documentation as well as chart review and collaboration with colleagues Charges/Coding Visit Charges Inpatient E&M: 59055 Init Hosp L2 02/07/25 1709 <Electronically signed by Jaciel Olivier MD> Cosigner Signature (if applicable): CC: Dr. Jaciel Olivier MD; Gerda Wilks MD~ Signed [facility] Work Phone: 1(673) 984-179906-14-2025 History and physical note [facility] Medical Records Department [address] [place] [address] H&P Exam - Hospitalist 02/07/25 1401 MR#: [id number] Acct: [id number] Name: KAMILAH MCKEON Rep #:[id number] : 1945 79 From: Jaciel singleton MD PCP: Gerda Wilks MD Status:ADM BALBINA Location: [place] [address] HPI - General General Date of Admission: 02/07/25 HPI Narrative KAMILAH MCKEON, is a 79 F who presents from assisted living with concerns of a stroke. Currently NIH is 0 but they noted slurred speech and right facial droop. She does have a dry mouth so I do not think that she mostly has dysarthria at this time. She is already on Eliquis for history of DVT and is onblood pressure medications. She says that she feels fine and is back to her baseline. Workup in theER was unremarkable, CTA of the head and neck was negative for an LVO and CT of the brain was also negative for hemorrhage. [facility] Medical History Injury of back Rectal bleeding Constipation Anticoagulated Presbyopia Unspecified nondisplaced fracture of sixth cervical vertebra, initial encounter for closed fracture Weakness Anxiety disorder, unspecified Age-related osteoporosis without current pathological fracture Other fracture of right lower leg, subsequent encounter for closed fracture withroutine healing DVT (deep venous thrombosis) GERD (gastroesophageal reflux disease) Depression Hyperlipidemia Hypertension Home Medications ?Medication ?Instructions ?Recorded ?Last Taken ?Type alendronate 70 mg tablet 70 mg PO MO OSTEOPOROSIS 08/16 Unknown History allopurinol 100 mg tablet 200 mg PO DAILY GOUT 1 Unknown History bupropion HCl 200 mg tablet,12 hr 200 mg PO BID mood 1 10/08/20 Unknown History sustained-release fluticasone propionate 50 1 spray intranasal DAILY all ergies 08/07/21 Unknown History mcg/actuation nasal spray,suspension loratadine 10 mg tablet 10 mg PO DAILY allergies 08/16 Unknown History omeprazole 20 mg capsule,delayed 20 mg PO DAILY reflux 08/07/21 Unknown History release potassium chloride 10 mEq 10 meq PO DAILY supplement 1 10/08/20 Unknown History tablet,extended release(part/cryst) (Klor-Con M) pravastatin 20 mg tablet 20 mg PO QHS cholesterol 08/16 Unknown History tramadol 50 mg tablet 50 mg PO Q12H PRN Pain 07/08 Unknown History acetaminophen 325 mg tablet 650 mg PO QHS PRN Pain Sco re 02/07/25 Unknown History (Tylenol) 1-10/Temp > 100.7 F aluminum-magnesium hydroxide 200 30 ml PO Q4H PRN GI b leeding 02/07/25 Unknown History mg-200 mg/5 mL oral suspension prophylaxis apixaban 5 mg tablet (Eliquis) 5 mg PO BID dvt 5 Unknown History cinacalcet 30 mg tablet 30 mg PO DAILY parathyroid 0 02/07/25 Unknown History clonazepam 0.5 mg tablet 0.5 mg PO QHS 02/07/25 Unkno wn History docusate sodium 100 mg capsule 100 mg PO DAILY CONSTIP ATION 02/07/25 Unknown History (Col-Rite) donepezil 10 mg tablet 10 mg PO QHS memory 02/07/25 Unknown History guaifenesin 100 mg/5 mL oral 200 mg PO Q4H PRN congest ion 02/07/25 Unknown History liquid (Adult Tussin Chest Congestion) guaifenesin 600 mg tablet, 600 mg PO BID 02/07/25 Unkn own History extended release 12 hr (Mucinex) losartan 50 mg tablet 50 mg PO DAILY bp 02/07/25 U nknown History magnesium hydroxide 400 mg/5 mL 30 ml PO DAILY PRN con stipation 02/07/25 Unknown History oral suspension (Dulcolax (magnesium hydroxide)) methyl salicylate 15 %-menthol 10 1 applic topical Q12 H PRN muscle 02/07/25 Unknown History % topical cream (AsperFlex (methyl pain salicylate-menthol)) metoprolol tartrate 25 mg tablet 12.5 mg PO BID heart 02/07/25 Unknown History minoxidil 2.5 mg tablet 2.5 mg PO DAILY bp 02/07/25 Unknown History ondansetron HCl 4 mg tablet 4 mg PO Q8H PRN nausea and vomiting 02/07/25 Unknown History polyethylene glycol 3350 17 17 g PO DAILY PRN constipa tion 02/07/25 Unknown History gram/dose oral powder (Miralax) sertraline 50 mg tablet 75 mg PO DAILY depression Unknown History torsemide 10 mg tablet 10 mg PO DAILY water pill Unknown History Allergy/AdvReac Type Severity Reaction Status Date / Time Latex, Natural Rubber AdvReac Rash Verified 02/07/25 09:31 Family History (Updated 02/07/25 @ 16:[address] Jaciel Olivier MD) Other CVA (cerebral vascular accident) Cancer Heart disease Surgical History (Updated 02/07/25 @ 16:[address] Jaciel Olivier MD) Status post hysterectomy Social History (Updated 02/07/25 @ 13:06 by Jaz Mon) housing: assisted living facility Smoking Status: Never smoker ROS Constitutional Constitutional: Denies chills, fatigue, fever(s) or malaise Eyes Eyes: Denies blurry vision ENT HEENT: Denies headache(s) or nasal discharge Cardiovascular Cardiovascular: Denies chest pain, dyspnea on exertion or syncope Respiratory/Chest Respiratory/Chest: Denies cough, shortness of breath at rest or shortness of breath with exertion Gastrointestinal Gastrointestinal: Denies constipation, diarrhea, nausea or vomiting Genitourinary Genitourinary: Denies dysuria Neurologic Neurologic: Reports abnormal speech; Denies focal weakness, numbness or tremor(s) Psychiatric Psychiatric: Denies anxiety or depression Vital Signs Vital Signs Vital Signs: 02/07/25 09:17 02/07/25 09:21 02/07/25 09:35 Temperature 97.8 F 97.8 F Temperature Source Oral Oral Pulse Rate 74 74 Respiratory Rate 19 H 19 H Blood Pressure 116/53 L 116/53 L Blood Pressure Mean 74 74 Blood Pressure Source Blood Pressure Position Blood Pressure Location Pulse Ox 91 91 96 Oxygen Delivery Method Room Air Room Air Nasal Cannula Oxygen Flow Rate (L/min) 2 02/07/25 09:37 02/07/25 09:45 02/07/25 09:47 Temperature Temperature Source Pulse Rate 77 71 Respiratory Rate 14 19 H Blood Pressure 112/51 L 110/55 L Blood Pressure Mean 71 73 Blood Pressure Source Blood Pressure Position Blood Pressure Location Pulse Ox 96 91 97 Oxygen Delivery Method Nasal Cannula Room Air Nasal Cannula Oxygen Flow Rate (L/min) 2 2 02/07/25 10:17 02/07/25 10:30 02/07/25 11:00 Temperature 97.8 F 97.9 F Temperature Source Oral Oral Pulse Rate 68 63 61 Respiratory Rate 18 16 18 Blood Pressure 96/46 L 136/62 H 130/60 H Blood Pressure Mean 62 86 83 Blood Pressure Source Blood Pressure Position Blood Pressure Location Pulse Ox 97 98 97 Oxygen Delivery Method Nasal Cannula Nasal Cannula Room Air Oxygen Flow Rate (L/min) 1 1 02/07/25 11:15 02/07/25 11:30 02/07/25 12:00 Temperature 97.9 F Temperature Source Pulse Rate 66 55 L 56 L Respiratory Rate 16 16 18 Blood Pressure 144/72 H 145/67 H 134/53 H Blood Pressure Mean 96 93 80 Blood Pressure Source Blood Pressure Position Blood Pressure Location Pulse Ox 96 96 96 Oxygen Delivery Method Room Air Room Air Oxygen Flow Rate (L/min) 02/07/25 12:30 02/07/25 13:20 Temperature 97.8 F Temperature Source Oral Pulse Rate 57 L 82 Respiratory Rate 18 17 Blood Pressure 115/65 107/93 H Blood Pressure Mean 81 97 Blood Pressure Source Monitor Blood Pressure Position Semi-Fowlers Blood Pressure Location Left Arm Pulse Ox 96 94 Oxygen Delivery Method Room Air Room Air Oxygen Flow Rate (L/min) Weight Weight: 155 lb 10.342 oz Body Mass Index (BMI) 33.7 Physical Exam Narrative General: Alert, Oriented x3, Cooperative, No apparent distress HEENT: Atraumatic, PERRLA, EOMI, Normocephalic Oral: Moist Mucosa Neck: Supple, No JVD Lungs: Diminished, Normal air movement, No rhonchi, No wheeze, No rales Cardiovascular: Regular rate, Regular Rhythm, Normal S1, Normal S2, No murmurs Abdomen: Soft, Non Tender, Non-Distended, No Hepato-splenomegaly Extremities: No edema, Capillary Refill Less than 3 Seconds Skin: No rashes, No breakdown Musculoskeletal: No Tenderness to Palpation of Joints or Extremities Neurological: No focal neurological deficits, moves all extremities, sensation is intact, NIH 0 Psych/Mental Status: Normal Affect, Appropriate Results Lab / Micro Data 02/07/25 09:31 02/07/25 09:31 Labs: Laboratory Results - last 24 hr 02/07/25 09:31: WBC 6.9, RBC 3.83 L, Hgb 11.4 L, Hct 35.0 L, MCV 91.4, MCH 29.8,MCHC 32.6, RDW Std Deviation 53.1 H, RDW Coeff of Michele 15.9 H, Plt Count 195, MPV10.6, Immature Gran % (Auto) 0.400, Neut % (Auto) 77.2 H, Lymph % (Auto) 12.9 L,Mathews % (Auto) 7.2, Eos % (Auto) 1.6, Baso % (Auto) 0.7, Absolute Neuts (auto) 5.3, Absolute Lymphs (auto) 0.89, Nucleated RBC % 0, PT 14.5, INR 1.1, APTT 33.3,Sodium 137, Potassium 4.0, Chloride 107, Carbon Dioxide 21.1, Anion Gap 9,BUN 18, Creatinine 0.77, Estim Creat Clear Calc 51.78, Est GFR (MDRD) Non- Af 79,BUN/Creatinine Ratio 23.7 H, Glucose 117 H, Calcium 9.3, Troponin T High Sens 9 02/07/25 11:10: Urine Color Yellow, Urine Clarity Clear, Urine pH 7.0, Ur Specific Lincoln 1.005, Urine Protein Negative, Urine Glucose (UA) Normal, UrineKetones Negative, Urine Occult Blood Negative, Urine Nitrite Negative, Urine Bilirubin Negative, Urine Urobilinogen Normal, Ur Leukocyte Esterase Negative, Urine RBC 0 SEEN, Urine WBC 0 SEEN, Ur Squamous Epith Cells 0 SEEN, Urine Bacteria 0 SEEN, Urine Mucus 0 SEEN 02/07/25 11:50: Troponin T Hi Sens 2 Hr 9 Imaging Radiology Impression Brain CT 02/07/25 09:17 IMPRESSION: No acute, large territorial infarction. Reading Location: [id number] Chest X-Ray 02/07/25 09:18 IMPRESSION: No acute process. Reading [facility] Head/Neck CTA 02/07/25 09:18 IMPRESSION: No acute large vessel occlusion or high-grade stenosis. Dr. Sibley was notified by Edson Rodriguez at 9:50am EST on 02/07/25 Reading Location: [id number] Assessment & Plan Assessment/Plan (1) TIA (transient ischemic attack): PLAN: Plan 1. TIA versus CVA ? Will obtain an MRI ? Will obtain an echo ? PT/OT ? She is already on Eliquis, will add aspirin in case this is small vessel issues ? Will allow permissive hypertension and hold her home blood pressure medications 2. Essential HTN/HLD ? Will hold her home blood pressure medications to allow permissive hypertensionfor her TIA ? Will continue with her home pravastatin ? Will monitor make adjustments as necessary 3. History of DVT ? Will continue with her home Eliquis 4. Anxiety/depression/dementia ? Stable ? Continue with her home medications 5. GERD ? Stable ? Continue with her PPI 6. Gout ? Stable ? Continue with allopurinol 7. Osteoporosis ? Continue with her home alendronate and Cinacalcet ? Stable DVT: Eliquis 56 minutes was spent on direct patient care, including documentation as well as chart review and collaboration with colleagues Charges/Coding Visit Charges Inpatient E&M: 50597 Init Hosp L2 02/07/25 1702 Cosigner Signature (if applicable): CC: Dr. Jaciel Olivier MD; Gerda Wilks MD~ Signed [place] [id number] Discharge summary Author Compa Sibley [facility] Note Date/Time February 07, 2025 11:5 5am [facility] Medical Records Department [address] [place] [address] Emergency Department Summary 02/07/25 MR#: [id number] Acct: [id number] Name: KAMILAH MCKEON Rep #:[id number] : 1945 79 From: Compa Sibley MD PCP: Gerda Wilks MD Status:REG ER Location: ED HPI History of Present Illness Chief Complaint: Stroke Alert Narrative Narrative: 79-year-old [facility] symptoms. She was last seen well at 11 PM yesterday evening, approximately 10 hours ago. She was 3 hours late for breakfast this morning. According to EMS, assisted noticed slurred speech and possible right facial droop. She also had reported expressive aphasia as well. She had complained toskilled nursing facility that she had a headache, but denied it to EMS. 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 [facility] Medical History Injury of back Rectal bleeding Constipation Anticoagulated Presbyopia Unspecified nondisplaced fracture of sixth cervical vertebra, initial encounter for closed fracture Weakness Anxiety disorder, unspecified Age-related osteoporosis without current pathological fracture Other fracture of right lower leg, subsequent encounter for closed fracture withroutine healing DVT (deep venous thrombosis) GERD (gastroesophageal reflux disease) Depression Hyperlipidemia Hypertension Home Medications ?Medication ?Instructions ?Recorded ?Last Taken ?Type alendronate 70 mg tablet 70 mg PO MO OSTEOPOROSIS 08/16 Unknown History allopurinol 100 mg tablet 200 mg PO DAILY GOUT 1 Unknown History bupropion HCl 200 mg tablet,12 hr 200 mg PO BID Unknown History sustained-release fluticasone propionate 50 1 spray intranasal DAILY 08/16 Unknown History mcg/actuation nasal spray,suspension loratadine 10 mg tablet 10 mg PO DAILY 08/07/21 Unkn own History omeprazole 20 mg capsule,delayed 20 mg PO DAILY Unknown History release potassium chloride 10 mEq 10 meq PO DAILY 08/07/21 Unk nown History tablet,extended release(part/cryst) (Klor-Con M) pravastatin 20 mg tablet 20 mg PO QHS 08/07/21 Unknow n History tramadol 50 mg tablet 50 mg PO Q12H PRN Pain 07/08 Unknown History acetaminophen 325 mg tablet 650 mg PO QHS PRN Pain Sco re 02/07/25 Unknown History (Tylenol) 1-10/Temp > 100.7 F aluminum-magnesium hydroxide 200 30 ml PO Q4H PRN GI b leeding 02/07/25 Unknown History mg-200 mg/5 mL oral suspension prophylaxis apixaban 5 mg tablet (Eliquis) 5 mg PO BID 02/07/25 Un known History cinacalcet 30 mg tablet 30 mg PO DAILY 02/07/25 Unkn own History clonazepam 0.5 mg tablet 0.5 mg PO QHS 02/07/25 Unkno wn History docusate sodium 100 mg capsule 100 mg PO DAILY CONSTIP ATION 02/07/25 Unknown History (Col-Rite) donepezil 10 mg tablet 10 mg PO QHS 02/07/25 Unknow n History guaifenesin 100 mg/5 mL oral 200 mg PO Q4H PRN congest ion 02/07/25 Unknown Histo ry liquid (Adult Tussin Chest Congestion) guaifenesin 600 mg tablet, 600 mg PO BID 02/07/25 Unkn own History extended release 12 hr (Mucinex) losartan 50 mg tablet 50 mg PO DAILY 02/07/25 Unkn own History magnesium hydroxide 400 mg/5 mL 30 ml PO DAILY PRN con stipation 02/07/25 Unknown History oral suspension (Dulcolax (magnesium hydroxide)) methyl salicylate 15 %-menthol 10 1 applic topical Q12 H PRN muscle 02/07/25 Unknown History % topical cream (AsperFlex (methyl pain salicylate-menthol)) metoprolol tartrate 25 mg tablet 12.5 mg PO BID Unknown History minoxidil 2.5 mg tablet 2.5 mg PO DAILY 02/07/25 Unk nown History ondansetron HCl 4 mg tablet 4 mg PO Q8H PRN nausea and vomiting 02/07/25 Unknown History polyethylene glycol 3350 17 17 g PO DAILY PRN constipa tion 02/07/25 Unknown History gram/dose oral powder (Miralax) sertraline 50 mg tablet 75 mg PO DAILY 02/07/25 Unkn own History torsemide 10 mg tablet 10 mg PO DAILY 02/07/25 Unkn own History Allergy/AdvReac Type Severity Reaction Status Date / Time Latex, Natural Rubber AdvReac Rash Verified 02/07/25 09:31 Social History housing: assisted living facility Smoking Status: Former smoker ROS ROS ED ROS Narrative Review of systems positive for reported expressive aphasia, dysarthria, nausea and vomiting, and headache. No fever or chills. No exacerbating or alleviatingfactors. EXAM Physical Exam Narrative Exam Narrative: Afebrile. Vital signs noted. Nontoxic-appearing. Dry mucous membranes. Cardiovascular examination regular rate and rhythm. Lungs clear to auscultationbilaterally. Abdomen is soft and nontender without guarding or rebound. Neurological examination NIH stroke scale is 1 for mild dysarthria which may be secondary to dry mucous membranes. No expressive aphasia. Moves all extremities. No pedal edema. Const Vital Signs: 02/07/25 09:17 02/07/25 09:21 02/07/25 09:35 Temperature 97.8 F 97.8 F Temperature Source Oral Oral Pulse Rate 74 74 Respiratory Rate 19 H 19 H Blood Pressure 116/53 L 116/53 L Blood Pressure Mean 74 74 Pulse Ox 91 91 96 Oxygen Delivery Method Room Air Room Air Nasal Cannula Oxygen Flow Rate (L/min) 2 02/07/25 09:37 02/07/25 09:45 02/07/25 09:47 Temperature Temperature Source Pulse Rate 77 71 Respiratory Rate 14 19 H Blood Pressure 112/51 L 110/55 L Blood Pressure Mean 71 73 Pulse Ox 96 91 97 Oxygen Delivery Method Nasal Cannula Room Air Nasal Cannula Oxygen Flow Rate (L/min) 2 2 02/07/25 10:17 02/07/25 10:30 02/07/25 11:00 Temperature 97.8 F 97.9 F Temperature Source Oral Oral Pulse Rate 68 63 61 Respiratory Rate 18 16 18 Blood Pressure 96/46 L 136/62 H 130/60 H Blood Pressure Mean 62 86 83 Pulse Ox 97 98 97 Oxygen Delivery Method Nasal Cannula Nasal Cannula Room Air Oxygen Flow Rate (L/min) 1 1 02/07/25 11:15 02/07/25 11:30 Temperature 97.9 F Temperature Source Pulse Rate 66 55 L Respiratory Rate 16 16 Blood Pressure 144/72 H 145/67 H Blood Pressure Mean 96 93 Pulse Ox 96 96 Oxygen Delivery Method Room Air Oxygen Flow Rate (L/min) MDM MDM MDM Narrative Medical decision making narrative: Differential diagnosis includes but not limited to intracranial hemorrhage versus ischemic stroke versus dehydration versus other electrolyte abnormality. Prehospital stroke team had been called. NIH stroke scale 1 for dysarthria. Stroke workup was pursued. I do not feel that she is a TNK candidate as she is already anticoagulated with Eliquis for DVTs. Additionally, she does not have adebilitating deficit currently. I reviewed the radiology reports and received a phone call as well from the radiologist regarding the CT of the brain and a CTA of the head and neck which shows no evidence of an acute hemorrhage, mass, or stroke, no large vessel occlusion. I also discussed the patient with the stroke neurologist, Dr. Up who states that as long as the CT and CTA showed no large vessel occlusion that she can be observed here for further workup. He also agrees that TNK is not indicated as she is outside the window and she has already anticoagulated. I reviewed her laboratory work and she has normal white count 6.9 with hemoglobin 11.4, hematocrit 35.0, platelet count normal at 195, INR 1.1 and a PTT 33.3. BMP is grossly unremarkable except for glucose of 117. Initial high-sensitivity troponin 9. Urinalysis is negative for infection with 0 WBCs and 0 bacteria. I do not feel antibiotics are indicated. Chest x-ray interpreted by myself independently shows no evidence of acute process, no pneumonia. I reviewed the radiology report which confirms my independent interpretation. EKG obtained and interpreted by myself as well as normal sinus rhythm at 67 bpm without ectopy or acute ST changes. No STEMI. I discussed patient with the hospitalist, Dr. Olivier who assigned the patient to observation on the PCU. Patient is in stable condition. History & Record Review Discussion w/independent historian: EMS personnel and Patient Additional record(s) reviewed:: Prior ED visit (Essentially noncontributory to current chief complaint.) Lab Data Attestation: I reviewed the patient's lab results. Labs: Laboratory Results - last 24 hr 02/07/25 02/07/25 09:31 11:10 WBC 6.9 RBC 3.83 L Hgb 11.4 L Hct 35.0 L MCV 91.4 MCH 29.8 MCHC 32.6 RDW Std Deviation 53.1 H RDW Coeff of Michele 15.9 H Plt Count 195 MPV 10.6 Immature Gran % (Auto) 0.400 Neut % (Auto) 77.2 H Lymph % (Auto) 12.9 L Mathews % (Auto) 7.2 Eos % (Auto) 1.6 Baso % (Auto) 0.7 Absolute Neuts (auto) 5.3 Absolute Lymphs (auto) 0.89 Nucleated RBC % 0 PT 14.5 INR 1.1 APTT 33.3 Sodium 137 Potassium 4.0 Chloride 107 Carbon Dioxide 21.1 Anion Gap 9 BUN 18 Creatinine 0.77 Estim Creat Clear Calc 51.78 Est GFR (MDRD) Non-Af 79 BUN/Creatinine Ratio 23.7 H Glucose 117 H Calcium 9.3 Troponin T High Sens 9 Urine Color Yellow Urine Clarity Clear Urine pH 7.0 Ur Specific Lincoln 1.005 Urine Protein Negative Urine Glucose (UA) Normal Urine Ketones Negative Urine Occult Blood Negative Urine Nitrite Negative Urine Bilirubin Negative Urine Urobilinogen Normal Ur Leukocyte Esterase Negative Urine RBC 0 SEEN Urine WBC 0 SEEN Ur Squamous Epith Cells 0 SEEN Urine Bacteria 0 SEEN Urine Mucus 0 SEEN Radiography Chest X-Ray - ED: 1 View, Read by ED Physician, Read by Radiologist, No Acute Disease and No Infiltrates Diagnostic Testing: Clinical Impression(s) from Imaging Studies Brain CT 02/07/25 09:17 IMPRESSION: No acute, large territorial infarction. Reading Location: [facility] Chest X-Ray 02/07/25 09:18 IMPRESSION: No acute process. Reading [facility] Head/Neck CTA 02/07/25 09:18 IMPRESSION: No acute large vessel occlusion or high-grade stenosis. Dr. Sibley was notified by Edson Rodriguez at 9:50am EST on 02/07/25 Reading Location: [facility] Management Discussion w/another healthcare provider: Hospitalist, Toy Mechanic (Annel Corey, Stroke Neurology) and Radiologist Discharge Plan Dx/Rx/DC Orders Clinical Impression: Dysarthria, Anticoagulated, TIA (transient ischemic attack) Disposition Disposition: Acute Care Hospital [facility] NIHSS NIHSS 1a. Level of Consciousness: 0 - Alert; keenly responsive 1b. LOC Questions: 0 - Answers BOTH questions correctly 1c. LOC Commands: 0 - Performs BOTH tasks correctly 2. Best Gaze: 0 - Normal 3. Visual: 0 - No visual loss 4. Facial Palsy: 0 - Normal symmetrical movements 5a. Left Arm: 0 - No drift; arm holds 90 (or 45) degrees for full 10 seconds 5b. Right Arm: 0 - No drift; arm holds 90 (or 45) degrees for full 10 seconds 6a. Left Le - No drift; leg holds 30-degree position for full 5 seconds 6b. Right Le - No drift; leg holds 30-degree position for full 5 seconds 7. Limb Ataxia: 0 - Absent 8. Sensory: 0 - Normal; no sensory loss 9. Best Language: 0 - No aphasia; normal 10. Dysarthria: 1 = [id number] dysarthria; 11. Extinction and Inattention: 0 - No abnormality Total: 1 Stroke Questions Stroke Team Activated: Yes Reviewed Inclusion/Exclusion criteria: Yes Was Patient considered for Endovascular Intervention?: No IV Thrombolytic Administered: No No contraindications from thrombolytic administration: No (On Eliquis) What to do if you have Problems For any increased pain, shortness of breath, bleeding, nausea or vomiting, chestpain, or any unexpected problems, contact your Primary Care Provider. Call [facility] ([phone]) or report to the closest Emergency Room. Call 911 if necessary. 02/07/25 1151 <Electronically signed by Compa Sibley MD> Cosigner Signature (if applicable): CC: Gerda Wilks MD ~ Signed [facility] Work Phone: 1(761) 197-509106-14-2025 Evaluation note* Diagnosis Onset Date Resolution Status Admit Date Anticoagulated acute February 07, 2025 11:50am Dysarthria acute February 07 11:50am TIA (transient ischemic attack) acut e February 07, 2025 11:50am [facility] Work Phone: 1([phone] 273-543306-14-2025 Discharge summary [facility] Medical Records Department [address] [place] [address] Emergency Department Summary 02/07/25 MR#: [id number] Acct: [id number] Name: KAMILAH MCKEON Rep #:[id number] : 1945 79 From: Compa Sibley MD PCP: Gerda Wilks MD Status:REG ER Location: ED HPI History of Present Illness Chief Complaint: Stroke Alert Narrative Narrative: 79-year-old female [facility] from [facility] with [facility] symptoms. She waslast seen well at 11 PM yesterday evening, approximately 10 hours ago. She was 3 hours late for breakfast this morning. According to EMS, assisted noticed slurred speech and possible right facialdroop. She also had reported expressive aphasia as well. She had complained toskilled nursing facility that she had a headache, but denied it to EMS. 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 [facility] Medical History Injury of back Rectal bleeding Constipation Anticoagulated Presbyopia Unspecified nondisplaced fracture of sixth cervical vertebra, initial encounter for closed fracture Weakness Anxiety disorder, unspecified Age-related osteoporosis without current pathological fracture Other fracture of right lower leg, subsequent encounter for closed fracture withroutine healing DVT (deep venous thrombosis) GERD (gastroesophageal reflux disease) Depression Hyperlipidemia Hypertension Home Medications ?Medication ?Instructions ?Recorded ?Last Taken ?Type alendronate 70 mg tablet 70 mg PO MO OSTEOPOROSIS 08/16 Unknown History allopurinol 100 mg tablet 200 mg PO DAILY GOUT 1 Unknown History bupropion HCl 200 mg tablet,12 hr 200 mg PO BID Unknown History sustained-release fluticasone propionate 50 1 spray intranasal DAILY 08/16 Unknown History mcg/actuation nasal spray,suspension loratadine 10 mg tablet 10 mg PO DAILY 08/07/21 Unkn own History omeprazole 20 mg capsule,delayed 20 mg PO DAILY Unknown History release potassium chloride 10 mEq 10 meq PO DAILY 08/07/21 Unk nown History tablet,extended release(part/cryst) (Klor-Con M) pravastatin 20 mg tablet 20 mg PO QHS 08/07/21 Unknow n History tramadol 50 mg tablet 50 mg PO Q12H PRN Pain 07/08 Unknown History acetaminophen 325 mg tablet 650 mg PO QHS PRN Pain Sco re 02/07/25 Unknown History (Tylenol) 1-10/Temp > 100.7 F aluminum-magnesium hydroxide 200 30 ml PO Q4H PRN GI b leeding 02/07/25 Unknown History mg-200 mg/5 mL oral suspension prophylaxis apixaban 5 mg tablet (Eliquis) 5 mg PO BID 02/07/25 Un known History cinacalcet 30 mg tablet 30 mg PO DAILY 02/07/25 Unkn own History clonazepam 0.5 mg tablet 0.5 mg PO QHS 02/07/25 Unkno wn History docusate sodium 100 mg capsule 100 mg PO DAILY CONSTIP ATION 02/07/25 Unknown History (Col-Rite) donepezil 10 mg tablet 10 mg PO QHS 02/07/25 Unknow n History guaifenesin 100 mg/5 mL oral 200 mg PO Q4H PRN congest ion 02/07/25 Unknown Histo ry liquid (Adult Tussin Chest Congestion) guaifenesin 600 mg tablet, 600 mg PO BID 02/07/25 Unkn own History extended release 12 hr (Mucinex) losartan 50 mg tablet 50 mg PO DAILY 02/07/25 Unkn own History magnesium hydroxide 400 mg/5 mL 30 ml PO DAILY PRN con stipation 02/07/25 Unknown History oral suspension (Dulcolax (magnesium hydroxide)) methyl salicylate 15 %-menthol 10 1 applic topical Q12 H PRN muscle 02/07/25 Unknown History % topical cream (AsperFlex (methyl pain salicylate-menthol)) metoprolol tartrate 25 mg tablet 12.5 mg PO BID Unknown History minoxidil 2.5 mg tablet 2.5 mg PO DAILY 02/07/25 Unk nown History ondansetron HCl 4 mg tablet 4 mg PO Q8H PRN nausea and vomiting 02/07/25 Unknown History polyethylene glycol 3350 17 17 g PO DAILY PRN constipa tion 02/07/25 Unknown History gram/dose oral powder (Miralax) sertraline 50 mg tablet 75 mg PO DAILY 02/07/25 Unkn own History torsemide 10 mg tablet 10 mg PO DAILY 02/07/25 Unkn own History Allergy/AdvReac Type Severity Reaction Status Date / Time Latex, Natural Rubber AdvReac Rash Verified 02/07/25 09:31 Social History housing: assisted living facility Smoking Status: Former smoker ROS ROS ED ROS Narrative Review of systems positive for reported expressive aphasia, dysarthria, nausea and vomiting, and headache. No fever or chills. No exacerbating or alleviatingfactors. EXAM Physical Exam Narrative Exam Narrative: Afebrile. Vital signs noted. Nontoxic-appearing. Dry mucous membranes. Cardiovascular examination regular rate and rhythm. Lungs clear to auscultationbilaterally. Abdomen is soft and nontender without guarding or rebound. Neurological examination NIH stroke scale is 1 for mild dysarthria which may be secondary to dry mucous membranes. No expressive aphasia. Moves all extremities. No pedal edema. Const Vital Signs: 02/07/25 09:17 02/07/25 09:21 02/07/25 09:35 Temperature 97.8 F 97.8 F Temperature Source Oral Oral Pulse Rate 74 74 Respiratory Rate 19 H 19 H Blood Pressure 116/53 L 116/53 L Blood Pressure Mean 74 74 Pulse Ox 91 91 96 Oxygen Delivery Method Room Air Room Air Nasal Cannula Oxygen Flow Rate (L/min) 2 02/07/25 09:37 02/07/25 09:45 02/07/25 09:47 Temperature Temperature Source Pulse Rate 77 71 Respiratory Rate 14 19 H Blood Pressure 112/51 L 110/55 L Blood Pressure Mean 71 73 Pulse Ox 96 91 97 Oxygen Delivery Method Nasal Cannula Room Air Nasal Cannula Oxygen Flow Rate (L/min) 2 2 02/07/25 10:17 02/07/25 10:30 02/07/25 11:00 Temperature 97.8 F 97.9 F Temperature Source Oral Oral Pulse Rate 68 63 61 Respiratory Rate 18 16 18 Blood Pressure 96/46 L 136/62 H 130/60 H Blood Pressure Mean 62 86 83 Pulse Ox 97 98 97 Oxygen Delivery Method Nasal Cannula Nasal Cannula Room Air Oxygen Flow Rate (L/min) 1 1 02/07/25 11:15 02/07/25 11:30 Temperature 97.9 F Temperature Source Pulse Rate 66 55 L Respiratory Rate 16 16 Blood Pressure 144/72 H 145/67 H Blood Pressure Mean 96 93 Pulse Ox 96 96 Oxygen Delivery Method Room Air Oxygen Flow Rate (L/min) MDM MDM MDM Narrative Medical decision making narrative: Differential diagnosis includes but not limited to intracranial hemorrhage versus ischemic stroke versus dehydration versus other electrolyte abnormality. Prehospital stroke team had been called. NIHstroke scale 1 for dysarthria. Stroke workup was pursued. I do not feel that she is a TNK candidateas she is already anticoagulated with Eliquis for DVTs. Additionally, she does not have adebilitating deficit currently. I reviewed the radiology reports and received a phone call as well from the radiologist regarding the CT of the brain and a CTA of the head and neck which shows no evidence of an acute hemorrhage, mass, or stroke, no large vessel occlusion. I also discussed the patient with the stroke neurologist, Dr. Up who states that as long as the CT and CTA showed no large vessel occlusion that she can beobserved here for further workup. He also agrees that TNK is not indicated as she is outside the window and she has already anticoagulated. I reviewed her laboratory work and she has normal white count 6.9 with hemoglobin 11.4, hematocrit 35.0, platelet count normal at 195, INR 1.1 and a PTT 33.3. BMP is grossly unremarkable except for glucose of 117. Initial high- sensitivity troponin 9. Urinalysis is negative for infection with 0 WBCsand 0 bacteria. I do not feel antibiotics are indicated. Chest x-ray interpreted by myself independently shows no evidence of acute process, no pneumonia. Ireviewed the radiology report which confirms my independent interpretation. EKG obtained and interpreted by myself as well as normal sinus rhythm at 67 bpm without ectopy or acute ST changes. No STEMI. I discussed patient with the hospitalist, Dr. Olivier who assigned the patient to observation on the PCU. Patient is in stable condition. History & Record Review Discussion w/independent historian: EMS personnel and Patient Additional record(s) reviewed:: Prior ED visit (Essentially noncontributory to current chief complaint.) Lab Data Attestation: I reviewed the patient's lab results. Labs: Laboratory Results - last 24 hr 02/07/25 02/07/25 09:31 11:10 WBC 6.9 RBC 3.83 L Hgb 11.4 L Hct 35.0 L MCV 91.4 MCH 29.8 MCHC 32.6 RDW Std Deviation 53.1 H RDW Coeff of Michele 15.9 H Plt Count 195 MPV 10.6 Immature Gran % (Auto) 0.400 Neut % (Auto) 77.2 H Lymph % (Auto) 12.9 L Mathews % (Auto) 7.2 Eos % (Auto) 1.6 Baso % (Auto) 0.7 Absolute Neuts (auto) 5.3 Absolute Lymphs (auto) 0.89 Nucleated RBC % 0 PT 14.5 INR 1.1 APTT 33.3 Sodium 137 Potassium 4.0 Chloride 107 Carbon Dioxide 21.1 Anion Gap 9 BUN 18 Creatinine 0.77 Estim Creat Clear Calc 51.78 Est GFR (MDRD) Non-Af 79 BUN/Creatinine Ratio 23.7 H Glucose 117 H Calcium 9.3 Troponin T High Sens 9 Urine Color Yellow Urine Clarity Clear Urine pH 7.0 Ur Specific [place] 1.005 Urine Protein Negative Urine Glucose (UA) Normal Urine Ketones Negative Urine Occult Blood Negative Urine Nitrite Negative Urine Bilirubin Negative Urine Urobilinogen Normal Ur Leukocyte Esterase Negative Urine RBC 0 SEEN Urine WBC 0 SEEN Ur Squamous Epith Cells 0 SEEN Urine Bacteria 0 SEEN Urine Mucus 0 SEEN Radiography Chest X-Ray - ED: 1 View, Read by ED Physician, Read by Radiologist, No Acute Disease and No Infiltrates Diagnostic Testing: Clinical Impression(s) from Imaging Studies Brain CT 02/07/25 09:17 IMPRESSION: No acute, large territorial infarction. Reading Location: [facility] Chest X-Ray 02/07/25 09:18 IMPRESSION: No acute process. Reading [facility] Head/Neck CTA 02/07/25 09:18 IMPRESSION: No acute large vessel occlusion or high-grade stenosis. Dr. Sibely was notified by Edson Rodriguez at 9:50am EST on 02/07/25 Reading Location: [facility] Management Discussion w/another healthcare provider: Hospitalist, Toy Mechanic (Annel Corey, Stroke Neurology) andRadiologist Discharge Plan Dx/Rx/DC Orders Clinical Impression: Dysarthria, Anticoagulated, TIA (transient ischemic attack) Disposition Disposition: Acute Care Hospital [facility] NIHSS NIHSS 1a. Level of Consciousness: 0 - Alert; keenly responsive 1b. LOC Questions: 0 - Answers BOTH questions correctly 1c. LOC Commands: 0 - Performs BOTH tasks correctly 2. Best Gaze: 0 - Normal 3. Visual: 0 - No visual loss 4. Facial Palsy: 0 - Normal symmetrical movements 5a. Left Arm: 0 - No drift; arm holds 90 (or 45) degrees for full 10 seconds 5b. Right Arm: 0 - No drift; arm holds 90 (or 45) degrees for full 10 seconds 6a. Left Le - No drift; leg holds 30-degree position for full 5 seconds 6b. Right Le - No drift; leg holds 30-degree position for full 5 seconds 7. Limb Ataxia: 0 - Absent 8. Sensory: 0 - Normal; no sensory loss 9. Best Language: 0 - No aphasia; normal 10. Dysarthria: 1 = Slyg-jv-sthsorgu dysarthria; 11. Extinction and Inattention: 0 - No abnormality Total: 1 Stroke Questions Stroke Team Activated: Yes Reviewed Inclusion/Exclusion criteria: Yes Was Patient considered for Endovascular Intervention?: No IV Thrombolytic Administered: No No contraindications from thrombolytic administration: No (On Eliquis) What to do if you have Problems For any increased pain, shortness of breath, bleeding, nausea or vomiting, chestpain, or any unexpected problems, contact your Primary Care Provider. Call [facility] ([phone]) or report tothe closest Emergency Room. Call 911 if necessary. 02/07/25 1155 Cosigner Signature (if applicable): CC: Gerda Wilks MD ~ Signed [facility]06-14-2025 Radiology Diagnostic study note [facility] Imaging Services [address], [place] [id number] Chest 1 View MR#: [id number] Acct: [id number] Name: KAMILAH MCKEON Rep #: [id number] : 1945 F 79 From: Pet er Peer DO PCP: Gerda Wilks MD Status: REG ER Study:Chest 1 View Date of Exam: 5 Exam# [id number] Ordering Dr: Compa Sibley MD PROCEDURE: CHEST 1 VIEW 02/07/2025 REASON FOR EXAM: NEURO DEFICIT, ACUTE, STROKE SUSPECTED TECHNIQUE: Frontal view of the chest. COMPARISON: None FINDINGS: Hardware: None Heart: Normal size Lungs: Prominent interstitium due to AP technique Bones: No aggressive process. Other: Lung volumes are low limiting sensitivity of the exam RAD/Chest 1 View IMPRESSION: No acute process. Reading [facility] CC: Dr. Compa Sibley MD; Gerda Wilks MD ~ [employer]: Signed [facility]06-14-2025 Radiology Diagnostic study note [facility] Imaging Services [address] [place] [id number] STROKE Brain/Head without Cont MR#: [id number] Acct: [id number] Name: KAMILAH MCKEON Rep #: [id number] : 1945 F 79 From: Maxine Rodriguez MD PCP: Gerda Wilks MD Status: REG ER Study:STROKE Brain/Head without Cont Date of Exam: 02/07/25 Exam# [id number] Ordering Dr: Compa Sibley MD ADDENDUM by Dr. Edson Rodriguez MD on 02/07/[address] Sibley was notified by Edson Rodriguez at 9:50am EST on 02/07/25 Reading Location: [facility] 02/07/25 0958 Date cc: Dr. Compa Sibley MD; Gerda Wilks MD ~* Signed PROCEDURE: STROKE BRAIN/HEAD WITHOUT CONT 02/07/2025 REASON FOR EXAM: NEURO DEFICIT, ACUTE, STROKE SUSPECTED TECHNIQUE: STROKE BRAIN/HEAD WITHOUT CONT Coronal and Sagittal reconstruction series were provided. One or more dose reduction techniques were used (e.g., Automated exposure control, adjustment of the mA and/or kV according to patient size, use of iterative reconstruction technique. RADIATION DOSE SUMMARY: DLP: 830 mGycm COMPARISON: 06/29/2020 FINDINGS: There is no acute infarct, intracranial hemorrhage, or mass effect. There is no hydrocephalus or significant midline shift. There is moderate chronic microvascular ischemic changes and moderate parenchymal volume loss. No acute, depressed calvarial fractures. No large scalp hematomas. CT/STROKE Brain/Head without Cont IMPRESSION: No acute, large territorial infarction. Reading Location: [facility] CC: Dr. Compa Sibley MD; Gerda Wilks MD ~ [employer]: Signed [facility]06-14-2025 Radiology Diagnostic study note [facility] Imaging Services [address] [place] [address] STROKE CTA Head AND Neck W/Con MR#: [id number] Acct: [id number] Name: KAMILAH MCKEON Rep #: [id number] : 1945 F 79 From: Maxine Rodriguez MD PCP: Gerda Wilks MD Status: REG ER Study:STROKE CTA Head AND Neck W/Con Date of Exam: 02/07/25 Exam# [id number] Ordering Dr: Compa Sibley MD PROCEDURE: STROKE CTA HEAD AND NECK W/CON 02/07/2025 REASON FOR EXAM: NEURO DEFICIT, ACUTE, STROKE SUSPECTED TECHNIQUE: STROKE CTA HEAD AND NECK W/CON Multiplanar and multisequence images were obtained. CONTRAST: 100 mL of Isovue 370 One or more dose reduction techniques were used (e.g., Automated exposure control, adjustment of the mA and/or kV according to patient size, use of iterative reconstruction technique). RADIATION DOSE SUMMARY: DLP: 644 mGycm COMPARISON: None FINDINGS: The aortic arch demonstrates a type I configuration. The ostia of the great vessels are patent. There is conventional branching. The right CCA is patent. Mild carotid bulb atherosclerosis without significant stenosis. The cervical right ICA is patent. The right MCA and right ASAD appear patent. There is no large vessel occlusion. The left CCA is patent. Mild carotid bulb atherosclerosis without significant stenosis. The cervical left ICA is patent. The left MCA and left ASAD appear patent. There is no large vessel occlusion. The right vertebral artery arises from the right subclavian artery. The left vertebral artery arises from the left subclavian artery. Both vertebral arteries are patent. Both vertebral arteries join to form the patent basilarartery. Both posterior cerebral arteries arise from the tip of the basilar. Both proximal CREDIT COUNSELOR segmentsare patent. There isno large vessel occlusion. There is no enhancing intracranial mass. Shotty cervical lymph nodes are identified. The thyroid gland is heterogeneous. The lung apices demonstrate no pneumothorax. No destructive osseous abnormalities identified. CT/STROKE CTA Head AND Neck W/Con IMPRESSION: No acute large vessel occlusion or high-grade stenosis. Dr. Sibley was notified by Edson Rodriguez at 9:50am EST on 02/07/25 Reading Location: [facility] CC: Dr. Compa Sibley MD; Gerda Wilks MD ~ [employer]: Signed [facility]07-12-2024 NoteHNO ID: [id number] Author: RUBIO HASSAN DO Service: ? Author Type: Physician Type: [...] of Care Visit completed when applicable. Rubio Hassan, [facility]07-12-2024 History of Present illness Narrative* Rubio Hassan DO - 03/07/2024 11:42 AM EDT UNIVERSAL PROTOCOL / SAFETY CHECKLIST Procedure to [...] of Care Visit completed when applicable. Rubio Hassan DO [facility] Miscellaneous Notes* Telephone Encounter - Laz Martínez - 12/03/2023 1:23 PM EDT Spoke to Sandra at [facility] 12/03/23. Xarelto to be held for 24 hours prior to EMG testing withapproval from prescribing physician. Laz Perez ([facility]) documented in this encounterProm[facility]04-04-2024 NoteHNO ID: [id number] Author: ENEDINA CANCHOLA PA-C Service: ? Author Type: Physician Educational Interpreter Type: Progress Notes Filed: 11/29/2023 11:31 Note Text: Enedina Canchola PA-C Established Patient Department of Orthopaedics Orthopaedics [address] [place] [address] Dept: [phone] November 29, 2023 SUBJECTIVE: CHIEF COMPLAINT: Follow [...] and second digit. Phalen's: postive Tinel's: negative Hub Bander strength: 5/5 IMAGING: Not indicated ASSESSMENT: G56.01 Carpal tunnel syndrome of right wrist (primary encounter diagnosis) R20.9 Disturbance of skin sensation PLAN: Given her history of spinal trauma recommendation is EMG for persistent skin disturbation. Patient agreeable with plan. Advised I will call her to go over results and arrange appropriate follow up. FOLLOW UP INSTRUCTIONS: As appropriate after EM[facility] History of Present illness Narrative* Enedina Canchola PA-C - 11/29/2023 11:28 AM EDT Enedina Canchola PA-C Established Patient Department of Orthopaedics Orthopaedics [address] [place] [address] Dept: [phone] November 29, 2023 SUBJECTIVE: CHIEF COMPLAINT: Follow [...] and second digit. Phalen's: postive Tinel's: negative Hub Bander strength: 5/5 IMAGING: Not indicated ASSESSMENT: G56.01 [...] EMG Enedina Canchola PA-C documented in this encounterProm[facility]11-27-2023 NoteHNO ID: [id number] Author: Enedina Canchola PA-C Service: ? Author Type: Physician Educational Interpreter Type: Progress Notes Filed: 07/24/2023 2:47 PM Note Text: Enedina Canchola PA-C Department of Orthopaedics Orthopaedics [address] [address] Dept: [phone] July 23, 2023 SUBJECTIVE: CHIEF COMPLAINT: Pain [...] and 3rd digit Phalen's: postive Tinel's: negative Hub Bander strength: 5/5 IMAGIN07/23/2023 4:08 PM - Radiology, Oru In Impression IMPRESSION: Findings as discussed in results portion of report [employer]: GERMAINE Transcribe Date/Time: Jul 23 2023 4:04P Dictated by : WALTER BRODY DO This examination was interpreted and the report reviewed and electronically signed by: WALTER BRODY DO on Jul 23 2023 4:06PM EST Results-Findings * * *Final Report* * * DATE OF EXAM: Jul 23 2023 1:23PM CHRISTINE 5271 - XR WRIST 3V PA/LAT/OBL RT / PROCEDURE REASON: [id number] * * * * Physician Interpretation * [...] tunnel syndrome Informed Consent Consent Obtained: Verbal Bunnell Prot (more content not included)...[facility] 07-23-2023 NoteHNO ID: [id number] Author: Belkys Plata Tech Service: ? Author Type: Plow Mechanic Type: Progress Notes Filed: 07/23/2023 1:35 PM [...] BY: Karissa Gill July 23, 2023 1:34 PMSelect [id number] History of Present illness Narrative* Belkys Plata Tech - 07/23/2023 1:30 PM EST Radiology Service Progress Note PATIENT NAME: Kamilah Mckeon DATE OF SERVICE: July 23, 2023 TIME: 1:34 PM PATIENT IDENTITY VERIFICATION COMPLETED USING TWO (2) IDENTIFIERS: Name and Date of confirmedby patient verbally. FALL SCREENING: Has the patient had 2 falls in the last year or 1 fall with injury or currently using an Ambulatory Assistive Device (Walker, Cane, Wheelchair, Crutches, etc.)? No PATIENT GENDER DATA: Female. status: : No status: NO. PATIENT RELEVANT IMPLANT DATA REVIEWED: Not Applicable RADIOLOGY DEPARTMENT: General X-ray: Exam(s) Completed: Upper Extremity X- Ray(s): Wrist, right PERIPHERAL IV DATA: Not applicable SIGNED BY: Karissa Gill July 23, 2023 1:34 PM documented in this encounterPromedica [facility] Park HospitalDischar summary Author Compa Sibley [facility] Note Date/Time February 07, 2025 11:5 5am [facility] Medical Records Department [address] [place] [address] Emergency Department Summary 02/07/25 MR#: [id number] Acct: [id number] Name: KAMILAH MCKEON Rep #:[id number] : 1945 79 From: Compa Sibley MD PCP: Gerda Wilks MD Status:REG ER Location: ED HPI History of Present Illness Chief Complaint: Stroke Alert Narrative Narrative: 79-year-old female [facility] with [facility] stroke symptoms. She was last seen well at 11 PM yesterday evening, approximately 10 hours ago. She was 3 hours late for breakfast this morning. According to EMS, assisted noticed slurred speech and possible right facial droop. She also had reported expressive aphasia as well. She had complained toskilled nursing facility that she had a headache, but denied it to EMS. 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 [facility] Medical History Injury of back Rectal bleeding Constipation Anticoagulated Presbyopia Unspecified nondisplaced fracture of sixth cervical vertebra, initial encounter for closed fracture Weakness Anxiety disorder, unspecified Age-related osteoporosis without current pathological fracture Other fracture of right lower leg, subsequent encounter for closed fracture withroutine healing DVT (deep venous thrombosis) GERD (gastroesophageal reflux disease) Depression Hyperlipidemia Hypertension Home Medications ?Medication ?Instructions ?Recorded ?Last Taken ?Type alendronate 70 mg tablet 70 mg PO MO OSTEOPOROSIS 08/16 Unknown History allopurinol 100 mg tablet 200 mg PO DAILY GOUT 1 Unknown History bupropion HCl 200 mg tablet,12 hr 200 mg PO BID Unknown History sustained-release fluticasone propionate 50 1 spray intranasal DAILY 08/16 Unknown History mcg/actuation nasal spray,suspension loratadine 10 mg tablet 10 mg PO DAILY 08/07/21 Unkn own History omeprazole 20 mg capsule,delayed 20 mg PO DAILY Unknown History release potassium chloride 10 mEq 10 meq PO DAILY 08/07/21 Unk nown History tablet,extended release(part/cryst) (Klor-Con M) pravastatin 20 mg tablet 20 mg PO QHS 08/07/21 Unknow n History tramadol 50 mg tablet 50 mg PO Q12H PRN Pain 07/08 Unknown History acetaminophen 325 mg tablet 650 mg PO QHS PRN Pain Sco re 02/07/25 Unknown History (Tylenol) 1-10/Temp > 100.7 F aluminum-magnesium hydroxide 200 30 ml PO Q4H PRN GI b leeding 02/07/25 Unknown History mg-200 mg/5 mL oral suspension prophylaxis apixaban 5 mg tablet (Eliquis) 5 mg PO BID 02/07/25 Un known History cinacalcet 30 mg tablet 30 mg PO DAILY 02/07/25 Unkn own History clonazepam 0.5 mg tablet 0.5 mg PO QHS 02/07/25 Unkno wn History docusate sodium 100 mg capsule 100 mg PO DAILY CONSTIP ATION 02/07/25 Unknown History (Col-Rite) donepezil 10 mg tablet 10 mg PO QHS 02/07/25 Unknow n History guaifenesin 100 mg/5 mL oral 200 mg PO Q4H PRN congest ion 02/07/25 Unknown Histo ry liquid (Adult Tussin Chest Congestion) guaifenesin 600 mg tablet, 600 mg PO BID 02/07/25 Unkn own History extended release 12 hr (Mucinex) losartan 50 mg tablet 50 mg PO DAILY 02/07/25 Unkn own History magnesium hydroxide 400 mg/5 mL 30 ml PO DAILY PRN con stipation 02/07/25 Unknown History oral suspension (Dulcolax (magnesium hydroxide)) methyl salicylate 15 %-menthol 10 1 applic topical Q12 H PRN muscle 02/07/25 Unknown History % topical cream (AsperFlex (methyl pain salicylate-menthol)) metoprolol tartrate 25 mg tablet 12.5 mg PO BID Unknown History minoxidil 2.5 mg tablet 2.5 mg PO DAILY 02/07/25 Unk nown History ondansetron HCl 4 mg tablet 4 mg PO Q8H PRN nausea and vomiting 02/07/25 Unknown History polyethylene glycol 3350 17 17 g PO DAILY PRN constipa tion 02/07/25 Unknown History gram/dose oral powder (Miralax) sertraline 50 mg tablet 75 mg PO DAILY 02/07/25 Unkn own History torsemide 10 mg tablet 10 mg PO DAILY 02/07/25 Unkn own History Allergy/AdvReac Type Severity Reaction Status Date / Time Latex, Natural Rubber AdvReac Rash Verified 02/07/25 09:31 Social History housing: assisted living facility Smoking Status: Former smoker ROS ROS ED ROS Narrative Review of systems positive for reported expressive aphasia, dysarthria, nausea and vomiting, and headache. No fever or chills. No exacerbating or alleviatingfactors. EXAM Physical Exam Narrative Exam Narrative: Afebrile. Vital signs noted. Nontoxic-appearing. Dry mucous membranes. Cardiovascular examination regular rate and rhythm. Lungs clear to auscultationbilaterally. Abdomen is soft and nontender without guarding or rebound. Neurological examination NIH stroke scale is 1 for mild dysarthria which may be secondary to dry mucous membranes. No expressive aphasia. Moves all extremities. No pedal edema. Const Vital Signs: 02/07/25 09:17 02/07/25 09:21 02/07/25 09:35 Temperature 97.8 F 97.8 F Temperature Source Oral Oral Pulse Rate 74 74 Respiratory Rate 19 H 19 H Blood Pressure 116/53 L 116/53 L Blood Pressure Mean 74 74 Pulse Ox 91 91 96 Oxygen Delivery Method Room Air Room Air Nasal Cannula Oxygen Flow Rate (L/min) 2 02/07/25 09:37 02/07/25 09:45 02/07/25 09:47 Temperature Temperature Source Pulse Rate 77 71 Respiratory Rate 14 19 H Blood Pressure 112/51 L 110/55 L Blood Pressure Mean 71 73 Pulse Ox 96 91 97 Oxygen Delivery Method Nasal Cannula Room Air Nasal Cannula Oxygen Flow Rate (L/min) 2 2 02/07/25 10:17 02/07/25 10:30 02/07/25 11:00 Temperature 97.8 F 97.9 F Temperature Source Oral Oral Pulse Rate 68 63 61 Respiratory Rate 18 16 18 Blood Pressure 96/46 L 136/62 H 130/60 H Blood Pressure Mean 62 86 83 Pulse Ox 97 98 97 Oxygen Delivery Method Nasal Cannula Nasal Cannula Room Air Oxygen Flow Rate (L/min) 1 1 02/07/25 11:15 02/07/25 11:30 Temperature 97.9 F Temperature Source Pulse Rate 66 55 L Respiratory Rate 16 16 Blood Pressure 144/72 H 145/67 H Blood Pressure Mean 96 93 Pulse Ox 96 96 Oxygen Delivery Method Room Air Oxygen Flow Rate (L/min) MDM MDM MDM Narrative Medical decision making narrative: Differential diagnosis includes but not limited to intracranial hemorrhage versus ischemic stroke versus dehydration versus other electrolyte abnormality. Prehospital stroke team had been called. NIH stroke scale 1 for dysarthria. Stroke workup was pursued. I do not feel that she is a TNK candidate as she is already anticoagulated with Eliquis for DVTs. Additionally, she does not have adebilitating deficit currently. I reviewed the radiology reports and received a phone call as well from the radiologist regarding the CT of the brain and a CTA of the head and neck which shows no evidence of an acute hemorrhage, mass, or stroke, no large vessel occlusion. I also discussed the patient with the stroke neurologist, Dr. Up who states that as long as the CT and CTA showed no large vessel occlusion that she can be observed here for further workup. He also agrees that TNK is not indicated as she is outside the window and she has already anticoagulated. I reviewed her laboratory work and she has normal white count 6.9 with hemoglobin 11.4, hematocrit 35.0, platelet count normal at 195, INR 1.1 and a PTT 33.3. BMP is grossly unremarkable except for glucose of 117. Initial high-sensitivity troponin 9. Urinalysis is negative for infection with 0 WBCs and 0 bacteria. I do not feel antibiotics are indicated. Chest x-ray interpreted by myself independently shows no evidence of acute process, no pneumonia. I reviewed the radiology report which confirms my independent interpretation. EKG obtained and interpreted by myself as well as normal sinus rhythm at 67 bpm without ectopy or acute ST changes. No STEMI. I discussed patient with the hospitalist, Dr. Olivier who assigned the patient to observation on the PCU. Patient is in stable condition. History & Record Review Discussion w/independent historian: EMS personnel and Patient Additional record(s) reviewed:: Prior ED visit (Essentially noncontributory to current chief complaint.) Lab Data Attestation: I reviewed the patient's lab results. Labs: Laboratory Results - last 24 hr 02/07/25 02/07/25 09:31 11:10 WBC 6.9 RBC 3.83 L Hgb 11.4 L Hct 35.0 L MCV 91.4 MCH 29.8 MCHC 32.6 RDW Std Deviation 53.1 H RDW Coeff of Michele 15.9 H Plt Count 195 MPV 10.6 Immature Gran % (Auto) 0.400 Neut % (Auto) 77.2 H Lymph % (Auto) 12.9 L Mathews % (Auto) 7.2 Eos % (Auto) 1.6 Baso % (Auto) 0.7 Absolute Neuts (auto) 5.3 Absolute Lymphs (auto) 0.89 Nucleated RBC % 0 PT 14.5 INR 1.1 APTT 33.3 Sodium 137 Potassium 4.0 Chloride 107 Carbon Dioxide 21.1 Anion Gap 9 BUN 18 Creatinine 0.77 Estim Creat Clear Calc 51.78 Est GFR (MDRD) Non-Af 79 BUN/Creatinine Ratio 23.7 H Glucose 117 H Calcium 9.3 Troponin T High Sens 9 Urine Color Yellow Urine Clarity Clear Urine pH 7.0 Ur Specific Lincoln 1.005 Urine Protein Negative Urine Glucose (UA) Normal Urine Ketones Negative Urine Occult Blood Negative Urine Nitrite Negative Urine Bilirubin Negative Urine Urobilinogen Normal Ur Leukocyte Esterase Negative Urine RBC 0 SEEN Urine WBC 0 SEEN Ur Squamous Epith Cells 0 SEEN Urine Bacteria 0 SEEN Urine Mucus 0 SEEN Radiography Chest X-Ray - ED: 1 View, Read by ED Physician, Read by Radiologist, No Acute Disease and No Infiltrates Diagnostic Testing: Clinical Impression(s) from Imaging Studies Brain CT 02/07/25 09:17 IMPRESSION: No acute, large territorial infarction. Reading Location: [id number] Chest X-Ray 02/07/25 09:18 IMPRESSION: No acute process. Reading [facility] Head/Neck CTA 02/07/25 09:18 IMPRESSION: No acute large vessel occlusion or high-grade stenosis. Dr. Sibley was notified by Edson Rodriguez at 9:50am EST on 02/07/25 Reading Location: [id number] Management Discussion w/another healthcare provider: Hospitalist, Toy Mechanic (Annel Corey, Stroke Neurology) and Radiologist Discharge Plan Dx/Rx/DC Orders Clinical Impression: Dysarthria, Anticoagulated, TIA (transient ischemic attack) Disposition Disposition: Acute Care Hospital [facility] NIHSS NIHSS 1a. Level of Consciousness: 0 - Alert; keenly responsive 1b. LOC Questions: 0 - Answers BOTH questions correctly 1c. LOC Commands: 0 - Performs BOTH tasks correctly 2. Best Gaze: 0 - Normal 3. Visual: 0 - No visual loss 4. Facial Palsy: 0 - Normal symmetrical movements 5a. Left Arm: 0 - No drift; arm holds 90 (or 45) degrees for full 10 seconds 5b. Right Arm: 0 - No drift; arm holds 90 (or 45) degrees for full 10 seconds 6a. Left Le - No drift; leg holds 30-degree position for full 5 seconds 6b. Right Le - No drift; leg holds 30-degree position for full 5 seconds 7. Limb Ataxia: 0 - Absent 8. Sensory: 0 - Normal; no sensory loss 9. Best Language: 0 - No aphasia; normal 10. Dysarthria: 1 = Dnyk-fa-nseolpmq dysarthria; 11. Extinction and Inattention: 0 - No abnormality Total: 1 Stroke Questions Stroke Team Activated: Yes Reviewed Inclusion/Exclusion criteria: Yes Was Patient considered for Endovascular Intervention?: No IV Thrombolytic Administered: No No contraindications from thrombolytic administration: No (On Eliquis) What to do if you have Problems For any increased pain, shortness of breath, bleeding, nausea or vomiting, chestpain, or any unexpected problems, contact your Primary Care Provider. Call [facility] ([phone]) or report to the closest Emergency Room. Call 911 if necessary. 02/07/25 1155 <Electronically signed by Compa Sibley MD> Cosigner Signature (if applicable): CC: Gerda Wilks MD ~ Signed [facility] Work Phone: Discharge summary Author Jaciel Olivier [facility] Note Date/Time February 09, 2025 1:00 pm [facility] Medical Records Department [address] [facility] [place] [address] Discharge Summary 02/09/25 1257 MR#: [id number] Acct: [id number] Name: KAMILAH MCKEON Rep #:[id number] : 1945 79 From: Jaciel singleton MD PCP: Gerda Wilks MD Status:ADM BALBINA Location: [place] [address] Providers Date of Admission: 02/07/25 Primary Care Physician: Dr. Gerda Wilks MD Consultations 02/07/25 13:03 Consult: Tele-Neurology Routine Consulting Provider: [facility] Reason for Consult: Acute Ischemic Stroke/TIA EMERGENT Consult: No MD Notified: Yes Date Notified: 02/07/25 Time Notified: 13:19 Method of Notification: Answering Service Nursing Unit Staff Notify [facility] of Tele-Neurology Consult: Yes Reason For Visit: TIA/CVA Diagnosis Discharge Diagnosis (1) TIA (transient ischemic attack): Status: Acute Code(s): G45.9 - Transient cerebral ischemic attack, unspecified Medications at Discharge Home Medications alendronate 70 mg tablet 70 mg PO MO OSTEOPOROSIS 08/07/21 allopurinol 100 mg tablet 200 mg PO DAILY GOUT 08/07/21 bupropion HCl 200 mg tablet,12 hr sustained-release 200 mg PO BID mood 08/07/21 fluticasone propionate 50 mcg/actuation nasal spray,suspension 1 spray intranasal DAILY allergies 08/07/21 loratadine 10 mg tablet 10 mg PO DAILY allergies 08/07/21 omeprazole 20 mg capsule,delayed release 20 mg PO DAILY reflux 08/07/21 potassium chloride 10 mEq tablet,extended release(part/cryst) (Klor-Con M) 10 meq PO DAILY supplement 08/07/21 pravastatin 20 mg tablet 20 mg PO QHS cholesterol 08/07/21 tramadol 50 mg tablet 50 mg PO Q12H PRN Pain 07/08/22 acetaminophen 325 mg tablet (Tylenol) 650 mg PO QHS PRN Pain Score 1-10/Temp > 100.7 F 02/07/25 aluminum-magnesium hydroxide 200 mg-200 mg/5 mL oral suspension 30 ml PO Q4H PRNGI bleeding prophylaxis 02/07/25 apixaban 5 mg tablet (Eliquis) 5 mg PO BID dvt 02/07/25 cinacalcet 30 mg tablet 30 mg PO DAILY parathyroid 02/07/25 clonazepam 0.5 mg tablet 0.5 mg PO QHS 02/07/25 docusate sodium 100 mg capsule (Col-Rite) 100 mg PO DAILY CONSTIPATION 02/07/25 donepezil 10 mg tablet 10 mg PO QHS memory 02/07/25 guaifenesin 100 mg/5 mL oral liquid (Adult Tussin Chest Congestion) 200 mg PO Q4H PRN congestion 02/07/25 guaifenesin 600 mg tablet, extended release 12 hr (Mucinex) 600 mg PO BID 02/07/25 losartan 50 mg tablet 50 mg PO DAILY bp 02/07/25 magnesium hydroxide 400 mg/5 mL oral suspension (Dulcolax (magnesium hydroxide))30 ml PO DAILY PRN constipation 02/07/25 methyl salicylate 15 %-menthol 10 % topical cream (AsperFlex (methyl salicylate-menthol)) 1 applic topical Q12H PRN muscle pain 02/07/25 metoprolol tartrate 25 mg tablet 12.5 mg PO BID heart 02/07/25 minoxidil 2.5 mg tablet 2.5 mg PO DAILY bp 02/07/25 ondansetron HCl 4 mg tablet 4 mg PO Q8H PRN nausea and vomiting 02/07/25 polyethylene glycol 3350 17 gram/dose oral powder (Miralax) 17 g PO DAILY PRN constipation 02/07/25 sertraline 50 mg tablet 75 mg PO DAILY depression 02/07/25 torsemide 10 mg tablet 10 mg PO DAILY water pill 02/07/25 Hospital Course Operations None Procedures 2-D Echocardiogram Summary of Care Provided Minutes Spent on Discharge: 36 Hospital Course: Per HPI: KAMILAH MCKEON, is a 79 F who presents from assisted living with concerns of a stroke. Currently NIH is 0 but they noted slurred speech and right facial droop. She does have a dry mouth so I do not think that she mostly has dysarthria at this time. She is already on Eliquis for history of DVT and is onblood pressure medications. She says that she feels fine and is back to her baseline. Workup in the ER was unremarkable, CTA of the head and neck was negative for an LVO and CT of the brain was also negative for hemorrhage. Hospital Course: 1. TIA?79-year-old female presented to the hospital from assisted living with concerns of a stroke as she had a slight facial droop and what they felt was slurred speech. On arrival to the ER her NIH was 0 and MRI was negative for stroke. Echocardiogram is currently pending but I do not believe that it is necessary to delay discharge given the fact that her MRI was unremarkable also she is already on Eliquis and her CT of the head and neck was normal. Will continue with her home pravastatin as well with no additional changes to her medications per neurology. I discussed with her the plan for discharge today and she expressed understanding of the risks and benefits of going back to the assisted living, and would like to go today. I do recommend she follow-up with her PCP in 3 to 5 days but no real need to follow-up with neurology as an outpatient 2. Essential hypertension, hyperlipidemia, history of DVT, anxiety, depression,dementia, GERD, gout, osteoporosis are all chronic medical conditions which complicate her care. Her home medications were continued where appropriate Physical Exam Narrative General: Alert, Oriented x3, Cooperative, No apparent distress HEENT: Atraumatic, PERRLA, EOMI, Normocephalic Oral: Moist Mucosa Neck: Supple, No JVD Lungs: Diminished, Normal air movement, No rhonchi, No wheeze, No rales Cardiovascular: Regular rate, Regular Rhythm, Normal S1, Normal S2, No murmurs Abdomen: Soft, Non Tender, Non-Distended, No Hepato-splenomegaly Extremities: No edema, Capillary Refill Less than 3 Seconds Skin: No rashes, No breakdown Musculoskeletal: No Tenderness to Palpation of Joints or Extremities Neurological: No focal neurological deficits, moves all extremities, sensation is intact, NIH 0 Psych/Mental Status: Normal Affect, Appropriate Weight / BMI Weight Weight: 155 lb 10.342 oz Body Mass Index (BMI) 33.7 ABG / Lab / Microbiology Data 02/08/25 06:30 02/08/25 06:30 Radiography Diagnostic Testing: Radiology Impression Brain MRI 02/09/25 07:30 IMPRESSION: CEREBRAL ATROPHY AND WITH CHRONIC SMALL VESSEL ISCHEMIC DISEASE. OTHERWISE UNREMARKABLE BRAIN MRI WITHOUT CONTRAST. Reading [facility] Instructions Discharge Diet: Low fat / Low cholesterol Call your doctor if you observe: Fever of 101 or Higher, Shortness of breath, Dizziness, Fainting spells, Swelling in the ankles, Chest pain and Increased palpitations (irregular heartbeat) DC O2, CPAP, BIPAP Needs Home O2 Discharge instructions: No Meaningful Use Info Meaningful Use Meaningful Use Diagnoses (Choose all that apply): None applicable Ischemic Stroke Statin Dosing Therapy Reference: STATIN DOSE THERAPY REFERENCE: * Patients > 75 years receive moderate or high dose statin therapy. * Patients 75 years or YOUNGER should receive HIGH intensity statin dose unless contraindicated. You will be required to document reason for non-treatment if statin daily dose does not meet guidelines. HIGH DOSE STATIN THERAPY DAILY Atorvastatin > than or = to 40 mg Rosuvastatin > than or = to 20 mg Amlodipine + Atorvastatin > than or = to 2.5/40 mg Ezetimibe + Simvastatin 10/80 mg Simvastatin 80mg Discharge Plan Admission Admit Date/Time: 02/07/25 11:50 Attending Provider: Jaciel Olivier Primary Care Provider: Gerda Wilks Consulting Providers: Anatoly Whalen; Abdiel Eugene; Cynthia Padilla; Mayte Philippe; Irene Bragg; Yash Stevenson; Tania Scott; Carlos Rob; Kam Reed; Vaibhav Chappell; Nevaeh Hartman; Rogelio Novak; Anahi Mario; Nirali Up; Hossein Foster; Kurt Rodriguez; Robi Mendez; Marco Antonio Lowe; Zainab Marti; Geovani Gregg Discharge Orders/Prescriptions Prescriptions: Continued alendronate 70 mg tablet 70 mg PO MO allopurinol 100 mg tablet 200 mg PO DAILY omeprazole 20 mg capsule,delayed release(DR/EC) 20 mg PO DAILY pravastatin 20 mg tablet 20 mg PO QHS fluticasone propionate 50 mcg/actuation spray,suspension 1 spray INTRANASAL DAILY loratadine 10 mg tablet 10 mg PO DAILY bupropion HCl 200 mg tablet sustained-release 12 hr 200 mg PO BID potassium chloride [Klor-Con M10] 10 mEq tablet,ER particles/crystals 10 meq PO DAILY tramadol 50 mg tablet 50 mg PO Q12H PRN (Reason: Pain) donepezil 10 mg tablet 10 mg PO QHS cinacalcet 30 mg tablet 30 mg PO DAILY clonazepam 0.5 mg tablet 0.5 mg PO QHS docusate sodium [Col-Rite] 100 mg capsule 100 mg PO DAILY Eliquis 5 mg tablet 5 mg PO BID guaifenesin [Adult Tussin Chest Congestion] 100 mg/5 mL liquid 200 mg PO Q4H PRN (Reason: congestion) losartan 50 mg tablet 50 mg PO DAILY metoprolol tartrate 25 mg tablet 12.5 mg PO BID minoxidil 2.5 mg tablet 2.5 mg PO DAILY sertraline 50 mg tablet 75 mg PO DAILY torsemide 10 mg tablet 10 mg PO DAILY Patient Comments: PT TAKES IN AFTERNOON. ondansetron HCl 4 mg tablet 4 mg PO Q8H PRN (Reason: nausea and vomiting) guaifenesin [Mucinex] 600 mg tablet extended release 12hr 600 mg PO BID AsperFlex(m.salicylat-menthol) 15-10 % cream 1 applic topical Q12H PRN (Reason: muscle pain) magnesium hydroxide [Dulcolax (magnesium hydroxide)] 400 mg/5 mL suspension 30 ml PO DAILY PRN (Reason: constipation) aluminum-magnesium hydroxide 200-200 mg/5 mL suspension 30 ml PO Q4H PRN (Reason: GI bleeding prophylaxis) acetaminophen [Tylenol] 325 mg Tablet 650 mg PO QHS PRN (Reason: Pain Score 1-10/Temp > 100.7 F) polyethylene glycol 3350 [Miralax] 17 gram/dose powder 17 g PO DAILY PRN (Reason: constipation) Referrals / Follow Up: Gerda Wilks MD [Primary Care Provider] - Within 1 Week Disposition Disposition (needs filled in before D/C Order can be placed): Assisted Living Charges/Coding Visit Charges Inpatient E&M: 03357 Disch Hosp >30min 02/09/25 1300 <Electronically signed by Jaciel Olivier MD> Cosigner Signature (if applicable): CC: Dr. Jaciel Olivier MD; Gerda Wilks MD~ Signed [facility] Work Phone: evaluation noteNo assessment information available [facility] Work Phone: Evaluation note* Diagnosis Onset Date Resolution Status Ankle fracture, right acute Contusion of face acute Fall acute [facility] Work Phone: Evaluation note* Diagnosis Onset Date Resolution Status Acute right ankle pain acute Ankle fracture, right acute Contusion of face acute Difficulty walking acute Fall acute [facility] Work Phone: Evaluation note* Diagnosis Onset Date Resolution Status Ankle fracture, right acute Difficulty walking acute Contusion of face resolved Fall resolved [facility] Work Phone: Evaluation note* Diagnosis Onset Date Resolution Status Ankle fracture, right acute Difficulty walking acute Contusion of face resolved Fall resolved Acute lower gastrointestinal bleeding acute Anticoagulated acute Visit for suture removal acu [facility] Work Phone: Evaluation note* Diagnosis Onset Date Resolution Status Ankle fracture, right acute Difficulty walking acute Contusion of face resolved Fall resolved Acute lower gastrointestinal bleeding acute Anticoagulated acute Constipation acute Visit for suture removal acu [facility] Work Phone: Evaluation note* Diagnosis Onset Date Resolution Status Ankle fracture, right acute Difficulty walking acute Contusion of face resolved Fall resolved Acute lower gastrointestinal bleeding resolved Visit for suture removal res ved [facility] Work Phone: Evaluation note* Diagnosis Onset Date Resolution Status Ankle fracture, right acute Difficulty walking acute Contusion of face resolved Fall resolved Anticoagulated acute Constipation acute Acute lower gastrointestinal bleeding resolved Visit for suture removal res olved Anticoagulated acute Constipation acute Rectal bleeding acute [facility] Work Phone: Evaluation note* Diagnosis Onset Date Resolution Status Anticoagulated acute Constipation acute Acute lower gastrointestinal bleeding resolved Visit for suture removal res olved Anticoagulated acute Constipation acute Rectal bleeding acute [facility] Work Phone: Evaluation note* Diagnosis Pain- Primary [facility]ized [facility] Diagnosis Carpal tunnel syndrome of right wrist- Primary Carpal tunnel syndrome Disturbance of skin sensation documented in this encounter [facility] note* Diagnosis Median nerve lesion, right- Primary Carpal tunnel syndrome of right wrist Carpal tunnel syndrome Disturbance of skin sensation Paresthesia of skin Disturbance of skin sensation [facility] Diagnosis Pain Generalized pain [facility]* Diagnosis Onset Date Resolution Status Admit Date Anticoagulated acute February 07, 2025 11:50am Dysarthria acute February 07 11:50am TIA (transient ischemic attack) acut e February 07, 2025 11:50am [facility] Work Phone: Reason for referral (narrative)* Diagnostic Procedure Only (Routine) - Authorized Specialty Diagnoses / Procedures Referred By Cherise calderón Referred To Contact XR IMAGING Diagnoses Pain Procedures XR WRIST GENERAL 3V PA/LAT/OBL RIGHT RADEX WRIST COMPLETE MINIMUM 3 VIEWS Enedina Canchola PA-C [address] [place] [address] Xr Imaging [place] [id number] Referral ID Status Reason Start Date Expiration Date Visits Requested Visits Authorized [id number] Authorized Auto-Generat ed Referral 07/25/2024 1 1 [facility] for referral (narrative)* Outpatient Procedure (Routine) - Pending Review Specialty Diagnoses / Procedures Referred By Cherise calderón Referred To Contact [facility] Diagnoses Carpal tunnel syndrome of right wrist Disturbance of skin sensation Procedures EMG(NEURO/NI) NERVE CONDUCTION STUDIES 9-10 STUDIES Enedina Canchola PA-C [address] [place] [address] Neurological [place] [address] [place] [id number] Referral ID Status Reason Start Date Expiration Date Visits Requested Visits Authorized [id number] Pending Review Auto-Generat ed Referral 11/29/2023 11/28/2024 1 1 [facility] for referral (narrative)* Diagnostic Procedure Only (Routine) - Closed Specialty Diagnoses / Procedures Referred By Contac t Referred To Contact XR IMAGING Diagnoses Pain Procedures XR WRIST GENERAL 3V PA/LAT/OBL RIGHT RADEX WRIST COMPLETE MINIMUM 3 VIEWS Enedina Canchola PA-C [address] [place] [address] [place] [address] Referral ID Status Reason Start Date Expiration Date V isits Requested Visits Authorized [id number] Closed Auto-Generate d Referral 06/26/2023 07/25/2024 1 1 [facility] for referral (narrative)No [facility] for [facility] Diagnostic Procedure Only (Routine) - Closed Specialty Diagnoses / Procedures Referred By Contac t Referred To Contact XR IMAGING Diagnoses Pain Procedures XR WRIST GENERAL 3V PA/LAT/OBL RIGHT RADEX WRIST COMPLETE MINIMUM 3 VIEWS Enedina Canchola PA-C [address] [place] [address] [place] [address] Referral ID Status Reason Start Date Expiration Date V isits Requested Visits Authorized [id number] Closed Auto-Generate d Referral 06/26/2023 07/25/2024 1 1 [facility] Summary Purpose Family History No Family History Records Found Relationship Condition Age at Onset Recorded Date/T jose Not Specified Cardiac disease Unknown Malignant neoplasm Unknown Cerebrovascular accident (CVA) Unknown Advance Directives No Advanced Directives Records Found Advance Directive Response Recorded Date/ Time Living Will No September 26 8:30pm Power of Instrument Assembler No September 26, 2021 8:30pm Advance Directive Response Recorded Date/ Time Living Will No 2022 10:24am Power of Instrument Assembler No February 18 10:24am Advance Directive Response Recorded Date/ Time Name of Medical Power of Instrument Assembler Elier schneider May 13, 2022 2:34pm Living Will Yes May 13, 2022 2:34pm Power of Instrument Assembler Yes April 2:34pm Advance Directive Response Recorded Date/ Time Name of Medical Power of Instrument Assembler Elier Santacruzer s May 13, 2022 6:11pm Living Will Yes May 13, 2022 6:11pm Power of Instrument Assembler Yes April 6:11pm Advance Directive Response Recorded Date/ Time Name of Medical Power of Instrument Assembler Elier Santacruzer s May 13, 2022 6:11pm Name of Medical Power of Instrument Assembler ELIER SANTACRUZER S June 28, 2022 11:50pm Living Will Yes June 28 11:50pm Power of Instrument Assembler Yes June 28, 2022 11:50pm Advance Directive Response Recorded Date/ Time Name of Medical Power of Instrument Assembler Elier Santacruzer s May 13, 2022 5:11pm Name of Medical Power of Instrument Assembler ELIER SANTACRUZER S June 28, 2022 10:50pm Living Will Yes June 28 10:50pm Power of Instrument Assembler Yes June 28, 2022 10:50pm Advance Directive Response Recorded Date/ Time Name of Medical Power of Instrument Assembler Elier Aguero s May 13, 2022 5:11pm Name of Medical Power of Instrument Assembler ELIER SANTACRUZER S June 28, 2022 10:50pm Name of Medical Power of Instrument Assembler KAMILAH July 08, 2022 11:07am Living Will Yes July 08, 022 11:07am Power of Instrument Assembler Yes July 08, 2022 11:07am Advance Directive Response Recorded Date/ Time Name of Medical Power of Instrument Assembler Elier Santacruzer s May 13, 2022 5:11pm Name of Medical Power of Instrument Assembler ELIER SANTACRUZER S June 28, 2022 10:50pm Name of Medical Power of Instrument Assembler Elier Santacruzer s July 08, 2022 2:45pm Living Will Yes July 08 022 2:45pm Power of Instrument Assembler Yes July 08, 2022 2:45pm Advance Directive Response Recorded Date/ Time Name of Medical Power of Instrument Assembler Elier Santacruzer s May 13, 2022 5:11pm Name of Medical Power of Instrument Assembler ELIER SANTACRUZER S June 28, 2022 10:50pm Name of Medical Power of Instrument Assembler Elier brito July 08, 2022 2:45pm Living Will No August 22, 2 022 2:28pm Power of Instrument Assembler No August 22, 2022 2:28pm Advance Directive Response Recorded Date/ Time Name of Medical Power of Instrument Assembler ELIER Brito June 28, 2022 10:50pm Name of Medical Power of Instrument Assembler Elier brito July 08, 2022 2:45pm Living Will No August 22, 2 022 2:28pm Power of Instrument Assembler No August 22, 2022 2:28pm Advance Directive Response Recorded Date/ Time Name of Medical Power of Instrument Assembler Elier brito July 08, 2022 2:45pm Living Will No August 22, 2 022 2:28pm Power of Instrument Assembler No August 22, 2022 2:28pm Advance Directive Response Recorded Date/ Time Living Will No August 22, 2 022 3:28pm Power of Instrument Assembler No August 22, 2022 3:28pm Advance Directive Response Recorded Date/ Time Living Will No August 22, 2 022 2:28pm Power of Instrument Assembler No August 22, 2022 2:28pm Advance Directive Response Recorded Date/ Time Do you have a Healthcare Power of Instrument Assembler? Yes February 07, 2025 9:38am Advance Directive Response Recorded Date/ Time Do you have a Healthcare Power of Instrument Assembler? Yes February 07, 2025 1:28pm Chief Complaint and Reason for Visit Chief Complaint [facility] fall, head injury SCREENING [facility] Chief Complaint SCREENING [facility] SHOULDER Chief Complaint SCREENING [facility] SHOULDER [facility] RIGHT SHOULDER PAIN Chief Complaint [facility] SHOULDER [facility] RIGHT SHOULDER PAIN DEBILITY, RIGHT ANKLE FRACTURE DEBILITY, RIGHT ANKLE FRACTURE Reason for Visit Ankle fracture, righ t Contusion of face Fall Chief Complaint [facility] SHOULDER [facility] RIGHT SHOULDER PAIN DEBILITY, RIGHT ANKLE FRACTURE DEBILITY, RIGHT ANKLE FRACTURE DEBILITY, RIGHT ANKLE FRACTURE DEBILITY, RIGHT ANKLE FRACTURE Reason for Visit Acute right ankle pa in Ankle fracture, right Contusion of face Difficulty walking Fall Chief Complaint SHOULDER [facility] RIGHT SHOULDER PAIN DEBILITY, RIGHT ANKLE FRACTURE DEBILITY, RIGHT ANKLE FRACTURE DEBILITY, RIGHT ANKLE FRACTURE DEBILITY, RIGHT ANKLE FRACTURE LAB WORK LAB WORK LAB WORK LAB WORK [facility] WORK Reason for Visit Ankle fracture, righ t Difficulty walking Contusion of face Fall Chief Complaint [facility] RIGHT SHOULDER PAIN DEBILITY, RIGHT ANKLE FRACTURE DEBILITY, RIGHT ANKLE FRACTURE DEBILITY, RIGHT ANKLE FRACTURE DEBILITY, RIGHT ANKLE FRACTURE LAB WORK LAB WORK LAB WORK LAB WORK [facility]PC LABWORK [facility] LAB WORK HEAD INJURY Reason for Visit Ankle fracture, righ t Difficulty walking Contusion of face Fall Chief Complaint [facility] RIGHT SHOULDER PAIN DEBILITY, RIGHT ANKLE FRACTURE DEBILITY, RIGHT ANKLE FRACTURE DEBILITY, RIGHT ANKLE FRACTURE DEBILITY, RIGHT ANKLE FRACTURE LAB WORK LAB WORK LAB WORK LAB WORK [facility]PC LABWORK [facility]PC LAB WORK FPC LABWORK [facility] LAB WORK LAB WORK HEAD INJURY Reason for Visit Ankle fracture, righ t Difficulty walking Contusion of face Fall Chief Complaint [facility] RIGHT SHOULDER PAIN DEBILITY, RIGHT ANKLE FRACTURE DEBILITY, RIGHT ANKLE FRACTURE DEBILITY, RIGHT ANKLE FRACTURE DEBILITY, RIGHT ANKLE FRACTURE LAB WORK LAB WORK LAB WORK LAB WORK [facility]PC LABWORK [facility] LAB WORK [facility]PC LABWORK [facility] LAB WORK LAB WORK HEAD INJURY GI BLEED Reason for Visit Ankle fracture, righ t Difficulty walking Contusion of face Fall Acute lower gastrointestinal bleeding Anticoagulated Visit for suture removal Chief Complaint [facility] RIGHT SHOULDER PAIN DEBILITY, RIGHT ANKLE FRACTURE DEBILITY, RIGHT ANKLE FRACTURE DEBILITY, RIGHT ANKLE FRACTURE DEBILITY, RIGHT ANKLE FRACTURE LAB WORK LAB WORK LAB WORK LAB WORK FPC LABWORK FPC LAB WORK FPC LABWORK [facility] LAB WORK LAB WORK HEAD INJURY GI BLEED GI BLEED GI BLEED GI BLEED GI BLEED GI BLEED Reason for Visit Ankle fracture, righ t Difficulty walking Contusion of face Fall Acute lower gastrointestinal bleeding Anticoagulated Constipation Visit for suture removal Chief Complaint [facility] RIGHT SHOULDER PAIN DEBILITY, RIGHT ANKLE FRACTURE DEBILITY, RIGHT ANKLE FRACTURE DEBILITY, RIGHT ANKLE FRACTURE DEBILITY, RIGHT ANKLE FRACTURE LAB WORK LAB WORK LAB WORK LAB WORK [facility]PC LABWORK [facility]PC LAB WORK FPC LABWORK [facility] LAB WORK LAB WORK HEAD INJURY [facility] GI BLEED GI BLEED GI BLEED GI BLEED GI BLEED GI BLEED [facility] WORK Reason for Visit Ankle fracture, righ t Difficulty walking Contusion of face Fall Acute lower gastrointestinal bleeding Visit for suture removal Chief Complaint DEBILITY, RIGHT ANKL E FRACTURE DEBILITY, RIGHT ANKLE FRACTURE DEBILITY, RIGHT ANKLE FRACTURE DEBILITY, RIGHT ANKLE FRACTURE LAB WORK LAB WORK LAB WORK LAB WORK FPC LABWORK [facility]PC LAB WORK [facility]PC LABWORK [facility]WORK LAB WORK LAB WORK HEAD INJURY [facility] GI BLEED GI BLEED GI BLEED GI BLEED GI BLEED GI BLEED [facility] LAB WORK [facility] LAB WORK 2 W F/U GI BLEED [facility] Reason for Visit Ankle fracture, righ t Difficulty walking Contusion of face Fall Anticoagulated Constipation Acute lower gastrointestinal bleeding Visit for suture removal Anticoagulated Constipation Rectal bleeding Chief Complaint DEBILITY, RIGHT ANKL E FRACTURE DEBILITY, RIGHT ANKLE FRACTURE DEBILITY, RIGHT ANKLE FRACTURE DEBILITY, RIGHT ANKLE FRACTURE LAB WORK LAB WORK LAB WORK LAB WORK [facility]PC LABWORK FPC LAB WORK [facility]PC LABWORK [facility] LAB WORK LAB WORK HEAD INJURY [facility]WORK GI BLEED GI BLEED GI BLEED GI BLEED GI BLEED GI BLEED FPC LAB WORK [facility]PC LAB WORK 2 W F/U GI BLEED [facility]WORK FPC LAB WORK FPC LAB WORK [facility] LAB WORK Reason for Visit Ankle fracture, righ t Difficulty walking Contusion of face Fall Anticoagulated Constipation Acute lower gastrointestinal bleeding Visit for suture removal Anticoagulated Constipation Rectal bleeding Chief Complaint DEBILITY, RIGHT ANKL E FRACTURE DEBILITY, RIGHT ANKLE FRACTURE DEBILITY, RIGHT ANKLE FRACTURE DEBILITY, RIGHT ANKLE FRACTURE LAB WORK LAB WORK LAB WORK LAB WORK [facility]PC LABWORK FPC LAB WORK [facility] LABWORK [facility] LAB WORK LAB WORK HEAD INJURY [facility]WORK GI BLEED GI BLEED GI BLEED GI BLEED GI BLEED GI BLEED FPC LAB WORK FPC LAB WORK 2 W F/U GI BLEED FPC LABWORK FPC LABWORK FPC LAB WORK FPC LAB WORK [facility]PC LAB WORK Reason for Visit Ankle fracture, righ t Difficulty walking Contusion of face Fall Anticoagulated Constipation Acute lower gastrointestinal bleeding Visit for suture removal Anticoagulated Constipation Rectal bleeding Chief Complaint LAB WORK LAB WORK [facility]PC LABWORK FPC LAB WORK FPC LABWORK [facility] LAB WORK LAB WORK HEAD INJURY [facility]WORK GI BLEED GI BLEED GI BLEED GI BLEED GI BLEED GI BLEED FPC LAB WORK FPC LAB WORK 2 W F/U GI BLEED FPC LABWORK FPC LABWORK FPC LAB WORK FPC LAB WORK FPC LAB WORK FPC LAB WORK Reason for Visit Anticoagulated Constipation Acute lower gastrointestinal bleeding Visit for suture removal Anticoagulated Constipation Rectal bleeding Chief Complaint LAB WORK FPC LABWORK FPC LAB WORK FPC LABWORK [facility]WORK LAB WORK LAB WORK HEAD INJURY [facility]WORK GI BLEED GI BLEED GI BLEED GI BLEED GI BLEED GI BLEED FPC LAB WORK FPC LAB WORK 2 W F/U GI BLEED FPC LABWORK FPC LABWORK FPC LAB WORK FPC LAB WORK FPC LAB WORK FPC LAB WORK FPC LAB WORK Reason for Visit Anticoagulated Constipation Acute lower gastrointestinal bleeding Visit for suture removal Anticoagulated Constipation Rectal bleeding Chief Complaint FPC LABWORK [facility] LAB WORK LAB WORK HEAD INJURY [facility]WORK GI BLEED GI BLEED GI BLEED GI BLEED GI BLEED GI BLEED FPC LAB WORK FPC LAB WORK 2 W F/U GI BLEED FPC LABWORK FPC LABWORK FPC LAB WORK FPC LAB WORK FPC LAB WORK FPC LAB WORK FPC LAB WORK FPC LABWORK FPC LAB WORK Reason for Visit Anticoagulated Constipation Acute lower gastrointestinal bleeding Visit for suture removal Anticoagulated Constipation Rectal bleeding Chief Complaint [facility]PC [facility]WORK [facility] LAB WORK LAB WORK HEAD INJURY [facility] GI BLEED GI BLEED GI BLEED GI BLEED GI BLEED GI BLEED [facility] WORK 2 W F/U GI BLEED [facility] WORK Reason for Visit Anticoagulated Constipation Acute lower gastrointestinal bleeding Visit for suture removal Anticoagulated Constipation Rectal bleeding Chief Complaint LAB WORK HEAD INJURY FPC LABWORK GI BLEED GI BLEED GI BLEED GI BLEED GI BLEED GI BLEED [facility] LAB WORK [facility] LAB WORK 2 W F/U GI BLEED [facility]PC LABWORK FPC LABWORK [facility] LAB WORK FPC LAB WORK FPC LAB WORK FPC LAB WORK FPC LAB WORK FPC LABWORK FPC LAB WORK FPC LAB WORK [facility] LAB WORK Reason for Visit Anticoagulated Constipation Acute lower gastrointestinal bleeding Visit for suture removal Anticoagulated Constipation Rectal bleeding Chief Complaint GI BLEED GI BLEED GI BLEED GI BLEED GI BLEED GI BLEED [facility]PC LAB WORK [facility]PC LAB WORK 2 W F/U GI BLEED [facility] LABWORK [facility] LABWORK [facility] LAB WORK FPC LAB WORK FPC LAB WORK FPC LAB WORK FPC LAB WORK FPC LABWORK FPC LAB WORK FPC LAB WORK [facility] LAB WORK LABWORK Reason for Visit Anticoagulated Constipation Acute lower gastrointestinal bleeding Visit for suture removal Anticoagulated Constipation Rectal bleeding Chief Complaint FPC LABWORK FPC LAB WORK FPC LAB WORK FPC LAB WORK FPC LAB WORK FPC LAB WORK FPC LABWORK FPC LAB WORK FPC LAB WORK FPC LAB WORK LABWORK FPC LAB WORK FPC LABWORK FPC LAB WORK Chief Complaint FPC LAB WOR K FPC LAB WORK FPC LAB WORK FPC LABWORK FPC LAB WORK FPC LAB WORK FPC LAB WORK LABWORK FPC LAB WORK FPC LABWORK FPC LAB WORK FPC LABWORK Chief Complaint FPC LABWORK FPC LAB WORK FPC LAB WORK FPC LAB WORK LABWORK FPC LAB WORK FPC LABWORK FPC LAB WORK FPC LABWORK CERVICAL SPINE FX, SCREENING Chief Complaint FPC LABWORK FPC LAB WORK F[facility] LABWORK [facility] LAB WORK CERVICAL SPINE FX, SCREENING FPC LABWORK Chief Complaint FPC LAB WOR K CERVICAL SPINE FX, SCREENING [facility] LABWORK F[facility] LAB WORK FPC LAB WORK Chief Complaint FPC LABWORK FPC LAB WORK FPC LAB WORK FPC LAB WORK Chief Complaint FPC LAB WOR K FPC LAB WORK FPC LABWORK FPC LAB WORK Chief Complaint FPC LAB WOR K FPC LABWORK FPC LAB WORK FPC LABWORK Chief Complaint FPC LAB WOR K FPC LABWORK FPC LAB WORK FPC LABWORK FPC LABWORK Chief Complaint FPC LAB WOR K FPC LABWORK FPC LAB WORK FPC LABWORK FPC LABWORK LABWORK Chief Complaint FPC LABWORK FPC LAB WORK FPC LABWORK FPC LABWORK LABWORK SKIN Chief Complaint FPC LAB WOR K [facility]PC LABWORK [facility] LABWORK LABWORK SKIN LABWORK Chief Complaint FPC LABWORK FPC LABWORK LABWORK SKIN LABWORK LABWORK LABWORK Chief Complaint LABWORK SKIN LABWORK LABWORK LABWORK LABWORK LABWORK Chief Complaint Admit Date TIA/CVA February 07, 2025 11:5 0am Reason for Visit Admit Date Anticoagulated February 07, 2025 11:5 0am Dysarthria February 07, 2025 11:5 0am TIA (transient ischemic attack) January 11:50am Chief Complaint Admit Date TIA/CVA February 07, 2025 11:5 0am TIA/CVA February 07, 2025 2:01 pm TIA/CVA February 08, 2025 12:3 8pm TIA/CVA February 09, 2025 12:5 7pm Additional Source Comments INFORMATION SOURCE (unrecogn ized section and content) DATE CREATED AUTHOR 01/14/2019 [facility] DATE CREATED AUTHOR AUTHOR'S ORGANIZ ATION 07/24/2023 [facility] DATE CREATED AUTHOR AUTHOR'S ORGANIZ ATION 03/13/2024 [facility] DATE CREATED AUTHOR AUTHOR'S ORGANIZ ATION 02/09/2025 [facility] Goals (unrecognized section and content) Goals [...] Kurt ROJO Attending Provider Active Team Status: Active Member Role Status Dates Dr. Gerda Wilks MD Primary Care Provider Active Team Status: Active Member Role Status Dates Dr. Gerda Wilks MD Primary Care Provider Active Start: January 30, 2025 Dr. Gerda ROJO MD Attending Provider Active Start: January 30, 2025 Team Status: Active Member Role Status Dates Dr. Gerda Wilks MD Primary Care Provider Active Start: February 07, 2025 Compa Sibley MD Emergency Provider Active Star t: February 07, 2025 Dr. Jaciel Olivier MD Admit Provider Active Start: February 07, 2025 Dr. Jaciel Olivier MD Attending Provider Active Start: February 07, 2025 Team Status: Inactive Member Role Status Dates Dr. Gerda Wilks MD Primary Care Provider Active Start: February 07, 2025 End: February 09, 2025 Compa Sibley MD Emergency Provider Active Star t: February 07, 2025 End: February 09, 2025 Dr. Jaciel Olivier MD Admit Provider Active Start: February 07, 2025 End: February 09, 2025 Dr. Jaciel Olivier MD Attending Provider Active Start: February 07, 2025 End: February 09, 2025 Anatoly Whalen MD Other Provider Active Start: 2024 End: February 09, 2025 Dr. Abdiel Eugene MD Other Provider Active Start: February 07, 2025 End: February 09, 2025 Cynthia Padilla MD Other Provider Active Start : February 07, 2025 End: February 09, 2025 Dr. Mayte Philippe DO Other Provider Active St art: February 07, 2025 End: February 09, 2025 Dr. Irene Bragg MD Other Provider Active Start: February 07, 2025 End: February 09, 2025 Dr. Yash Stevenson MD Other Provider Active Sta rt: February 07, 2025 End: February 09, 2025 Dr. Tania Scott MD Other Provider Active Start : February 07, 2025 End: February 09, 2025 Dr. Carlos Rob MD Other Provider Active Start: February 07, 2025 End: February 09, 2025 Dr. Kam Reed MD Other Provider Active Start : February 07, 2025 End: February 09, 2025 Dr. Vaibhav Chappell MD Other Provider Active Sta rt: February 07, 2025 End: February 09, 2025 Nevaeh Hartman MD Other Provider Active Start : February 07, 2025 End: February 09, 2025 Dr. Rogelio Novak MD Other Provider Active St art: February 07, 2025 End: February 09, 2025 Dr. Anahi Mario MD Other Provider Active Start : February 07, 2025 End: February 09, 2025 Dr. Nirali Up MD Other Provider Active Sta rt: February 07, 2025 End: February 09, 2025 Dr. Hossein Foster MD Other Provider Active Start: February 07, 2025 End: February 09, 2025 Dr. Kurt Rodriguez MD Other Provider Active St art: February 07, 2025 End: February 09, 2025 Dr. Robi Mendez MD Other Provider Active Star t: February 07, 2025 End: February 09, 2025 Dr. Marco Antonio Lowe MD Other Provider Active St art: February 07, 2025 End: February 09, 2025 Dr. Zainab Marti MD Other Provider Active Start: February 07, 2025 End: February 09, 2025 Geovani Gregg MD Other Provider Active Start: February 07, 2025 End: February 09, 2025 Team Status: Active Member Role Status Dates Dr. Gerda Wilks MD Primary Care Provider Active Start: February 07, 2025 Compa Sibley MD Emergency Provider Active Star t: February 07, 2025 Dr. Jaciel Olivier MD Admit Provider Active Start: February 07, 2025 Dr. Jaciel Olivier MD Attending Provider Active Start: February 07, 2025 Dr. Jaciel Olivier MD Other Provider Active Start: February 07, 2025 Anatoly Whalen MD Other Provider Active Start: 2024 Dr. Abdiel Eugene MD Other Provider Active Start: February 07, 2025 Cynthia Padilla MD Other Provider Active Start : February 07, 2025 Dr. Mayte Philippe DO Other Provider Active St art: February 07, 2025 Dr. Irene Bragg MD Other Provider Active Start: February 07, 2025 Dr. Yash Stevenson MD Other Provider Active Sta rt: February 07, 2025 Dr. Tania Scott MD Other Provider Active Start : February 07, 2025 Dr. Carlos Rob MD Other Provider Active Start: February 07, 2025 Dr. Kam Reed MD Other Provider Active Start : February 07, 2025 Dr. Vaibhav Chappell MD Other Provider Active Sta rt: February 07, 2025 Nevaeh Hartman MD Other Provider Active Start : February 07, 2025 Dr. Rogelio Novak MD Other Provider Active St art: February 07, 2025 Dr. Anahi Mario MD Other Provider Active Start : February 07, 2025 Dr. Nirali Up MD Other Provider Active Sta rt: February 07, 2025 Dr. Hossein Foster MD Other Provider Active Start: February 07, 2025 Dr. Kurt Rodriguez MD Other Provider Active St art: February 07, 2025 Dr. Robi Mendez MD Other Provider Active Star t: February 07, 2025 Dr. Marco Antonio Lowe MD Other Provider Active St art: February 07, 2025 Dr. Zainab Marti MD Other Provider Active Start: February 07, 2025 Geovani Gregg MD Other Provider Active Start: February 07, 2025 Team Status: Active Member Role Status Dates Dr. Gerda Wilks MD Primary Care Provider Active Start: February 08, 2025 Compa Sibley MD Emergency Provider Active Star t: February 08, 2025 Dr. Jaciel Olivier MD Admit Provider Active Start: February 08, 2025 Dr. Jaciel Olivier MD Attending Provider Active Start: February 08, 2025 Dr. Jaciel Olivier MD Other Provider Active Start: February 08, 2025 Anatoly Whalen MD Other Provider Active Start: 2024 Dr. Abdiel Eugene MD Other Provider Active Start: February 08, 2025 Cynthia Padilla MD Other Provider Active Start : February 08, 2025 Dr. Mayte Philippe DO Other Provider Active St art: February 08, 2025 Dr. Irene Bragg MD Other Provider Active Start: February 08, 2025 Dr. Yash Stevenson MD Other Provider Active Sta rt: February 08, 2025 Dr. Tania Scott MD Other Provider Active Start : February 08, 2025 Dr. Carlos Rob MD Other Provider Active Start: February 08, 2025 Dr. Kam Reed MD Other Provider Active Start : February 08, 2025 Dr. Vaibhav Chappell MD Other Provider Active Sta rt: February 08, 2025 Nevaeh Hartman MD Other Provider Active Start : February 08, 2025 Dr. Rogelio Novak MD Other Provider Active St art: February 08, 2025 Dr. Anahi Mario MD Other Provider Active Start : February 08, 2025 Dr. Nirali Up MD Other Provider Active Sta rt: February 08, 2025 Dr. Hossein Foster MD Other Provider Active Start: February 08, 2025 Dr. Kurt Rodriguez MD Other Provider Active St art: February 08, 2025 Dr. Robi Mendez MD Other Provider Active Star t: February 08, 2025 Dr. Marco Antonio Lowe MD Other Provider Active St art: February 08, 2025 Dr. Zainab Marti MD Other Provider Active Start: February 08, 2025 Geovani Gregg MD Other Provider Active Start: February 08, 2025 Team Status: Active Member Role Status Dates Dr. Gerda Wilks MD Primary Care Provider Active Start: February 09, 2025 Compa Sibley MD Emergency Provider Active Star t: February 09, 2025 Dr. Jaciel Olivier MD Admit Provider Active Start: February 09, 2025 Dr. Jcaiel Olivier MD Attending Provider Active Start: February 09, 2025 Dr. Jaciel Olivier MD Other Provider Active Start: February 09, 2025 Anatoly Whalen MD Other Provider Active Start: 2024 Dr. Abdiel Eugene MD Other Provider Active Start: February 09, 2025 Cynthia Padilla MD Other Provider Active Start : February 09, 2025 Dr. Mayte Philippe DO Other Provider Active St art: February 09, 2025 Dr. Irene Bragg MD Other Provider Active Start: February 09, 2025 Dr. Yash Stevenson MD Other Provider Active Sta rt: February 09, 2025 Dr. Tania Scott MD Other Provider Active Start : February 09, 2025 Dr. Carlos Rob MD Other Provider Active Start: February 09, 2025 Dr. Kam Reed MD Other Provider Active Start : February 09, 2025 Dr. Vaibhav Chappell MD Other Provider Active Sta rt: February 09, 2025 Nevaeh Hartman MD Other Provider Active Start : February 09, 2025 Dr. Rogelio Novak MD Other Provider Active St art: February 09, 2025 Dr. Anahi Mario MD Other Provider Active Start : February 09, 2025 Dr. Nirali Up MD Other Provider Active Sta rt: February 09, 2025 Dr. Hossein Foster MD Other Provider Active Start: February 09, 2025 Dr. Kurt Rodriguez MD Other Provider Active St art: February 09, 2025 Dr. Robi Mendez MD Other Provider Active Star t: February 09, 2025 Dr. Marco Antonio Lowe MD Other Provider Active St art: February 09, 2025 Dr. Zainab Marti MD Other Provider Active Start: February 09, 2025 Geovani Gregg MD Other Provider Active Start: February 09, 2025 Source Comments (unrecognize d section and content) In the event this informatio n is protected by the Federal Confidentiality of Alcohol and Drug Abuse Patient Records regulations: The Federal rules restrict any use of the information to criminally investigate or prosecute any alcohol or drug abuse patient.[facility] the event this information is protected by the Federal Confidentiality of Alcohol and Drug Abuse Patient Records regulations: The Federal rules restrict any use of the information to criminally investigate or prosecute any alcohol or drug abuse patient.[facility] the event this information is protected by the Federal Confidentiality of Alcohol and Drug Abuse Patient Records regulations: The Federal rules restrict any use of the information to criminally investigate or prosecute any alcohol or drug abuse patient.[facility] the event this information is protected by the Federal Confidentiality of Alcohol and Drug Abuse Patient Records regulations: The Federal rules restrict any use of the information to criminally investigate or prosecute any alcohol or drug abuse patient.[facility] the event this information is protected by the Federal Confidentiality of Alcohol and Drug Abuse Patient Records regulations: The Federal rules restrict any use of the information to criminally investigate or prosecute any alcohol or drug abuse patient.[facility] Reason for Visit (unrecogniz ed section and content) Reason Comments Follow Up Pain Numbness Reason Comments Blood Thinner Instructions for EMG Testi ng Reason Onset Date Comments EMG 03/07/2024 Specialty Diagnoses / Procedures Referred By Cherise t Referred To [facility] Diagnoses Carpal tunnel syndrome of right wrist Disturbance of skin sensation Procedures EMG(NEURO/NI) NERVE CONDUCTION STUDIES 9-10 STUDIES Enedina Canchola PA-C [address] [place] [address] [id number] [place] [address] Referral ID Status Reason Start Date Expiration Date V isits Requested Visits Authorized [id number] Closed Auto-Generate d Referral 11/29/2023 11/28/2024 1 [...] BE BASED ON THE PRIMARY CLINICAL RECORDS. [employer] provides no warranty or guarantee of the accuracy or completeness of information in this document.
[2025-02-12 08:14] LABS: Hematocrit 36.5 % (37-47); Hemoglobin 11.7 g/dL (12.0-15.0); Mean Corp Hgb Conc 32.1 g/dL (32-36); Mean Corpuscular Hgb 29.6 pg (27.0-32.0); Mean Corpuscular Volume 92.4 fL (81-99); Mean Platelet Vol. 11.5 fl (6.2-12.0); Platelet Count 214 K/mm3 (150-450); RBC Distribution Width CV 15.9 % (11.6-14.6); RBC Distribution Width SD 53.2 fl (35.1-43.9); Red Blood Count 3.95 M/mm3 (4.2-5.4); White Blood Count 5.6 K/mm3 (4.4-11.0)
[2025-02-12 08:30] LABS: Anion Gap 12 (5-15); BUN 18 mg/dL (4-19); BUN/Creat Ratio 21.1 RATIO (10-20); Calcium,Total 8.7 mg/dL (7.6-11.0); Carbon Dioxide 22.6 mmol/L (21.0-32.0); Chloride 107 mmol/L (98-108); Creatinine, Serum 0.85 mg/dL (0.70-1.20); EST Glomerular Filtration Rate 71 (>60); Glucose 98 mg/dL (70-99); Potassium 4.5 mmol/L (3.3-5.1); Sodium Level 141 mmol/L (133-145)
== END ==
LOC: OLS.SWAL 05:00
PROVIDERS: PCP Internal Medicine; Visit Provider Internal Medicine
DX: D64.9 Anemia, unspecified (principal); I10 Essential (primary) hypertension
CPT/HCPCS: 36415; 80048; 85027

== ENCOUNTER → 2025-03-12 | Outpatient (CLI) | payer MEDICARE, MEDICAID, SELFPAY ==
--- NOTE | 2025-03-12 14:49 | BI_ITS ---
EXAM: SCRN MAMM (CAD)W/DAYANNA BILAT DATE: 03/12/2025 CLINICAL HISTORY: F, Age 80 y/o , SCREENING Mother with breast cancer. TECHNIQUE: SCRN MAMM (CAD)W/DAYANNA BILAT COMPARISON: Prior exam(s) dated January 01, 2023.. FINDINGS: TISSUE DENSITY: There are scattered areas of fibroglandular density. Bilateral Breast Mammographic Findings: No significant masses, calcifications or other abnormalities are identified. Stable small lymph node seen in the axillary region of the right breast. No suspicious masses, areas of developing architectural distortion, or suspicious calcifications. There has been no significant interval change. BI/SCRN MAMM (CAD)W/DAYANNA BILAT IMPRESSION: Stable examination. OVERALL FINAL ASSESSMENT BI-RADS 2: BENIGN RECOMMENDATION: Routine annual follow-up in 1 Year A letter with findings and recommendations will be mailed to the patient. Reading Location: [place] [id number]
== END | disposition home or self-care (01) ==
PROVIDERS: PCP Internal Medicine; Referring Provider Internal Medicine; Visit Provider Internal Medicine
DX: Z12.31 Encounter for screening mammogram for malignant neoplasm of breast (principal); Z80.3 Family history of malignant neoplasm of breast
CPT/HCPCS: 77063; 77067

== ENCOUNTER → 2025-05-12 05:00 | Outpatient (REF) | payer MEDICARE, MEDICAID, SELFPAY ==
--- OUTSIDE RECORDS SUMMARY | 2025-05-12 04:09 | XMS RPT_ITS | CCD ---
Author Organization [facility] CliniSyri Care Team Providers Care Retail Assistant Store Manager Name Role Phone PROVIDER, UNKNOWN Attending Unavailable PROVIDER, UNKNOWN Referring Unavailable Cary, Luan Primary Care Unavailable Cary, Luan Attending Unavailable PROVIDER, UNKNOWN Referring Unavailable Cary, Luan Primary Care Unavailable Cary, Luan Attending Unavailable PROVIDER, UNKNOWN Referring Unavailable Cary, Luan Primary Care Unavailable Dr. Gerda Wilks Primary Care Provider Dr. Ladonna Sidhu Emergency Provider [phone] Os[address] N[address] Provider Dr. Osman Nance Attending Provider Dr. Osman Nance Other Provider Dr. Niranjan Hartman Other Provider Dr. Israel Garza Attending Provider Dr. Israel Garza Other Provider Dr. Gerda Wilks Primary Care Provider Dr. Ladonna Sidhu Emergency Provider [phone] Osman Nance Provider Dr. Osman Nance [...] Other Provider Dr. Emily Marti Attending Provider Maegna, Dr. Vu Referring Provider Carolin, Dr. Lorenz Referring Provider Unavailable Carolin, Dr. Lorenz Primary Care Provider UnavailDr. Tha [place] Emergency Provider [facility], Dr. Vu Admit Provider [facility], Dr. Vu Attending Provider [facility], Dr. Vu Other Provider [facility], Dr. Vu Referring Provider Dr. Salina [...] Dr. Jaciel Dela Cruz Attending Provider Marlee FELICIANO, Anatoly Other Provider Unavailable Valorie FELICIANO, Dr. [...] Unavailable Marysol FELICIANO, Geovani Other Provider Unavailable Dr. Jaciel Olivier MD Other Provider Nicole FELICIANO, Dr. Bunn Attending Provider [phone] Carolin FELICIANO, Dr. Lorenz Attending Provider Unavailsimran Wilks MD, Dr. Lorenz Referring Provider UnavailGerda Abbasi Primary Care Unavailable Gudla Gerda ROJO Attending Unavailable Stevedlsimran, Gerda Primary Care Unavailable Gudla Gerda ROJO Attending Unavailable Gudla, Gerda Primary Care Unavailable Gudla OLS Gerda Attending Unavailable Gudla, Gerda Primary Care Unavailable Gudla, Gerda Referring Unavailable Gudla, Gerda Attending Unavailable Anatoly Whalen Consulting Unavailable Jaciel Olivier Attending Unavailable Gudla, Gerda Primary Care Unavailable Jaciel Olivier Admitting Unavailable Adeli, Amir Consulting Unavailable Hinduja, Cynthia Consulting Unavailable Jose Martin, Mayte Consulting Unavailable Zha, Irene Consulting Unavailable Elva, Yash Consulting Unavailable Sonia, Tania Consulting Unavailable Bittar, Carlos Consulting Unavailable Kam Reed Consulting Unavailable Vaibhav Chappell Consulting Unavailable Nevaeh Hartman Consulting Unavailable Rogelio Novak Consulting Unavailable Anahi Mario Consulting Unavailable Annel, Nirali Consulting Unavailable Cristian, Hossein Gómez Consulting UnavailKurt Gill Consulting Unavailable Mendez, Rami Consulting Unavailable Tahir Lowel Consulting Unavailable Zainab Marti Consulting Unavailable Geovani Gregg Consulting Unavailable Jaciel Olivier Consulting Unavailable Gudla, Gerda Primary Care Unavailable Oni Rivera Attending Unavailable Gilmore, Eduardo Referring Unavailable Gudla, Gerda Primary Care Unavailable Gilmore, Eduardo Attending Unavailable Gudla, Gerda Primary Care Unavailable Kendell Bradley Attending Unavailabl e Gudla OLS, Gerda Attending Unavailable Gudla, Gerda Primary Care Unavailable Gudla OLS Gerda Attending Unavailable Gudla, Gerda Primary Care Unavailable Jaciel Olivier Admitting Unavailable Jaciel Olivier Attending Unavailable Gudla, Gerda Primary Care Unavailable Anatoly Whalen Consulting Unavailable Adeli, Amir Consulting Unavailable Hinduja, Cynthia Consulting Unavailable Jose Martin, Mayte Consulting Unavailable Zha, Irene Consulting Unavailable Elva, Yash Consulting Unavailable Sonia, Tania Consulting Unavailable Bittar, Carlos Consulting Unavailable Kam Reed Consulting Unavailable Vaibhav Chappell Consulting Unavailable Nevaeh Hartman Consulting Unavailable Rogelio Novak Consulting Unavailable Fabiano, Anahi Consulting Unavailable Annel, Mohamed Consulting Unavailable Cristian, Hossein Rico Consulting UnavailKurt Gill Consulting Unavailable Mendez, Rami Consulting Unavailable Marco Antonio Lowe Consulting Unavailable Zainab Marti Consulting Unavailable Geovani Gregg Consulting Unavailable Gerda Field Attending Unavailable Gerda Wilks Primary Care Unavailable Allergies Allergy Classification Reported Allergen(s) Allergy Type Date of Onset Reaction(s) Facility (20 sources) natural latex rubber; Translations: [Latex, Natural Rubber] Propensity to adverse reactions 2022 Rash [facility] (5 sources) Latex; Translations: [LATEX] Drug Allergy 07-23-2023 Swelling [facility] Medications Current Medications Medication Drug Class(es) Dates [...] mg oral tablet (20 sources) Bisphosphonate Start: 08-07-20 21 take 1 tablet by mouth once Alendronate 70 mg tablet Active 70 mg PO MO August 07, 2021 1:00am OSTEOPOROSIS Comment on above: Take 70 mg by mouth one time a week. allopurinol 100 mg oral tablet (20 sources) Xanthine Oxidase Inhibitor Start: 07-11-20 23 take 1 tablet by mouth once daily allopurinol (ZYLOPRIM) 100 mg tablet Take 100 mg by mouth once daily. 0 07/11/2023 Active Start: 08-07-2021 take 2 tablets by mo uth once daily Allopurinol 100 mg tablet Active 200 mg PO DAILY August 07, 2021 1:00am GOUT Start: 08-07-2021 take 200 mg by mouth once sammy y Allopurinol Active 200 MG PO DAILY August 07, 2021 1:00am Comment on above: Take 100 mg by mouth once daily. aluminum hydroxide 40 mg/ml / magnesium hydroxide 40 mg/ml oral suspension (3 sources) Start: 5 take 1 mL by mouth every four hours as needed Aluminum-Magnesium Hydroxide 200-200 mg/5 mL suspension Active 30 mL PO Q4H as needed for GI bleeding prophylaxis February 07, 2025 12:00am apixaban 5 mg oral tablet (3 sources) Factor Xa Inhibitor Start: 5 take 1 tablet by mouth twice daily Apixaban (Eliquis) 5 mg tablet Active 5 mg PO TWICE A DAY February 07, 2025 12:00am dvt biotin 1 mg oral tablet (3 sources) Start: 0 Biotin 1 mg tab Take 1,000 mcg by mouth once daily. 0 05/18/2020 Active Comment on above: Take 1,000 mcg by mo [facility] once daily. 12 hr buPROPion hydrochloride 200 [...] TWICE A DAY August 07, 2021 1:00am mood Comment on above: Take 200 mg by mouth once daily. cetirizine hydrochloride 10 mg oral capsule (3 sources) Histamine-1 Receptor Antagonist take 1 capsule by mouth once daily as needed Cetirizine (ZYRTEC) 10 mg cap Take 10 mg by mouth once daily as needed. 0 Active Comment on above: Take 10 mg by mouth once daily as needed. cinacalcet 30 mg oral tablet (6 sources) Calcium-sensing Receptor Agonist Start: 5 take 1 tablet by mouth once daily Cinacalcet 30 mg tablet Active 30 mg PO DAILY February 07, 2025 12:00am parathyroid Start: 06-27-2023 take 1 tablet by chloe th once daily cinacalcet (SENSIPAR) 30 mg tablet Take 30 mg by mouth once daily. 0 06/27/2023 Active Comment on above: Take 30 mg by mouth once daily. clonazePAM 0.5 mg oral tablet (20 sources) Benzodiazepine Start: 06-14-202 5 take 1 tablet by mouth at [...] daily. docusate sodium 100 mg oral capsule (3 sources) Start: 02-08-20 take 1 capsule by mouth once daily Docusate Sodium (Col-Rite) 100 mg capsule Active 100 mg PO DAILY February 07, 2025 12:00am CONSTIPATION donepezil hydrochloride 10 mg oral tablet (3 sources) Start: 02-08-20 take 1 tablet by mouth at bedtime Donepezil 10 mg tablet Active 10 mg PO AT BEDTIME February 07, 2025 12:00am memory ferrous sulfate 325 mg delayed release oral tablet (3 sources) Start: 08-07-20 Ferrous Sulfate Active MG PO August 07, 2021 1:00am fluticasone propionate 0.05 mg/actuat metered dose nasal spray (20 sources) Corticosteroid Start: 08-07-20 Fluticasone Propionate 50 mcg/actuation spray,suspension Active 1 NMA INTRANASAL DAILY August 07, 2021 1:00am allergies Start: 08-07-2021 Fluticasone Pr opionate Active 1 SPRAY INTRANASAL DAILY August 07, 2021 1:00am Start: 08-07-2021 guaiFENesin 20 mg/ml oral solution (6 sources) Start: 02-07-2025 take 200 mg by mouth every four hours as needed for congestion Guaifenesin (Adult Tussin Chest Congestion) 100 mg/5 mL liquid Active 200 mg PO Q4H as needed for congestion February 07, 2025 12:00am Start: 02-07-2025 take 1 tablet by chloe th twice daily, then take 1 tablet by mouth every twelve hours Guaifenesin (Mucinex) 600 mg tablet extended release 12hr Active 600 mg PO TWICE A DAY February 07, 2025 12:00am loratadine 10 mg oral tablet (20 sources) Start: 08-07-2021 take 1 tablet by mouth once daily Loratadine 10 mg tablet Active 10 mg PO DAILY August 07, 2021 1:00am allergies losartan potassium 50 mg oral tablet (20 sources) Angiotensin 2 Receptor Elana Start: 02-07-2025 take 1 tablet by mouth once daily Losartan 50 mg tablet Active 50 mg PO DAILY February 07, 2025 12:00am bp Start: 07-11-2023 losartan (COZA AR) 100 mg tablet Take 30 mg by mouth once daily. 0 07/11/2023 Active Start: 08-07-2021 End: 02-07-2025 take 1 tablet by mouth once daily Losartan 100 mg tablet Discontinued 100 mg PO DAILY August 07, 2021 1:00am February 07, 2025 9:48am Comment on above: Take 30 mg by mouth once daily. Magnesium Hydroxide (3 sources) Start: take 1 mL by mouth once daily as needed for constipation Magnesium Hydroxide (Dulcolax (Magnesium Hydroxide)) 400 mg/5 mL suspension Active 30 mL PO DAILY as needed for constipation February 07, 2025 12:00am Methyl Salicylate-Menthol (Asperflex(M.Salicylat-M enthol)) 15-10 % cream (3 sources) Start: Methyl Salicylate-Menthol (Asperflex(M.Salic ylat-Menthol)) 15-10 % cream Active 1 NMA TOPICAL Q12H as needed for muscle pain February 07, 2025 12:00am metoprolol tartrate 25 mg oral tablet (3 sources) beta-Adrenergic Elana Start: Metoprolol Tartrate 25 mg tablet Active 12.5 mg PO TWICE A DAY February 07, 2025 12:00am heart minoxidil 2.5 mg oral tablet (3 sources) Arteriolar Vasodilator Start: take 1 tablet by mouth once daily Minoxidil 2.5 mg tablet Active 2.5 mg PO DAILY February 07, 2025 12:00am bp nystatin 100 unt/mg topical powder (7 sources) Polyene Antifungal Start: Nystatin (Nyamyc) 100,000 unit/gram Powder Active 1 APPLIC TOPICAL TWICE A DAY 0 May 14, 2022 11:00pm omeprazole 20 mg delayed release oral capsule (20 sources) Proton Pump Inhibitor Start: take 1 capsule by mouth once daily Omeprazole 20 mg capsule,delayed release(DR/EC) Active 20 mg PO DAILY August 07, 2021 1:00am reflux Comment on above: Take 1 tablet by chloe once daily. ondansetron 4 mg oral tablet (3 sources) Serotonin-3 Receptor Antagonist Start: take 1 tablet by mouth every eight hours as needed for nausea and vomiting Ondansetron Hcl 4 mg tablet Active 4 mg PO Q8H as needed for nausea and vomiting February 07, 2025 12:00am polyethylene glycol 3350 59368 mg powder for oral solution (20 sources) Osmotic Laxative Start: End: Polyethylene Glycol 3350 (Miralax) 17 gram/dose powder Active 17 g PO DAILY as needed for constipation February 07, 2025 12:00am microencapsulated potassium chloride 10 meq extended release oral tablet (20 sources) Start: Potassium Chloride (Klor-Con M10) 10 mEq tablet,ER particles/crystals Active 10 meq PO DAILY August 07, 2021 1:00am supplement Comment on above: Take 1 tablet by chloe once daily. pravastatin sodium 20 mg oral tablet (20 sources) HMG-CoA Reductase Inhibitor Start: take 1 tablet by mouth at bedtime Pravastatin 20 mg tablet Active 20 mg PO AT BEDTIME August 07, 2021 1:00am cholesterol Comment on above: Take 20 mg by mouth once daily. sertraline 50 mg oral tablet (20 sources) Serotonin Reuptake Inhibitor Start: Sertraline 50 mg tablet Active 75 mg PO DAILY February 07, 2025 12:00am depression Start: 08-07-2021 End: 02-07-2025 take 1 tablet [...] mg PO DAILY February 07, 2025 12:00am water pill Start: 07-13-2023 take 1 tablet by chloe [...] 08-07-2021 take 40 mg by mouth twice asmmy y Torsemide Active 40 MG PO TWICE [...] mg PO Q8H as needed for pain 9 3 0 May 15, 2022 10:28am July 08, 2022 [...] sources) Anemia, unspecified; Translations: [Anemia, unspecified] Onset: 5 Episodic Disorders of lipid metabolism (1 source) Hyperlipidemia, unspecified; Translations: [Hyperlipidemia, unspecified] Onset: 5 Chronic E Codes: Fall (20 sources) Fall; Translations: [Unspecified fall, initial encounter] Episodic Essential hypertension (2 sources) Essential (primary) hypertension; Translations: [Essential (primary) hypertension] Onset: 5 Chronic Fracture of lower limb (20 sources) [...] aftercare (20 sources) Drug therapy finding; Translations: [USP (current) use of anticoagulants] 07-24-2022 Episodic Other aftercare (20 sources) Surgical follow-up; Translations: [Encounter for removal of sutures] 07-18-2022 Episodic Other aftercare (20 sources) USP (current) use of anticoagulants; Translations: [Long-term (current) use of anticoagulants] Episodic Other aftercare (14 sources) Encounter for removal of sutures; Translations: [Encounter for removal of sutures] Episodic Other aftercare (3 sources) Long-term current use of drug therapy; Translations: [USP (current) use of antithrombotics/antipl atelets] 07-18-2024 Episodic Other bone disease and musculoskeletal deformities (2 sources) Other specified disorders of bone density and structure, unspecified site; Translations: [Oth disrd of bone density and structure, unspecified site] Onset: Episodic Other connective tissue disease (3 sources) Thigh pain; Translations: [Pain in left [...] [Carpal tunnel syndrome of right wrist] Onset: 07-12-202 4 Chronic Other nervous system disorders (2 sources) Skin sensation disturbance; Translations: [Unspecified disturbances of skin sensation] 11-29-2023 Episodic Other nervous system disorders (1 source) Paresthesia; Translations: [Paresthesia of skin] 03-07-2024 Episodic Other nervous system disorders (1 source) Unspecified disturbances of skin sensation; Translations: [Disturbance of skin sensation] Onset: 4 Episodic Other nervous system disorders (6 sources) Dysarthria; Translations: [Dysarthria and anarthria] 02-07-2025 Episodic Other nervous system disorders (1 source) Slurred speech; Translations: [Slurred speech] Onset: 5 Episodic Other non-traumatic joint disorders (1 source) Acute ankle pain; Translations: [Pain in right ankle and joints of right foot] Episodic Other non-traumatic joint disorders (1 source) Pain in right ankle and joints of right foot; Translations: [Pain in joint, ankle and foot] Episodic Other screening for suspected conditions (not mental disorders or infectious disease) (5 sources) Encounter for screening mammogram for malignant [...] head, initial encounter] Episodic Transient cerebral ischemia (7 sources) Transient cerebral ischemia; Translations: [Transient cerebral ischemic attack, unspecified] Onset: 5 02-07-2025 Chronic Past or Other Problems Problem Classification Problem Date Documented Da te Episodic/Chronic Other connective tissue disease (1 source) Pain [...] Test Name Value Interpretation Reference Range Facility Breast imaging reportOrdered By: Rick Manriquez on 03-12-2025 Study report [facility] Imaging Services [address] [place] [address] SCRN MAMM (CAD)W/DAYANNA BILAT MR#: [id number] Acct: [id number] Name: KAMILAH MCKEON Rep #: [id number] : 1945 F 80 From: Austin Manriquez MD PCP: Gerda Wilks MD Status: [facility] Study:SCRN MAMM (CAD)W/DAYANNA BILAT Date of Exa m: 03/12/25 Exam# [id number] Ordering Dr: Go Wilks MD EXAM: SCRN MAMM (CAD)W/DAYANNA BILAT DATE: 03/12/2025 CLINICAL HISTORY: F, Age 80 y/o , SCREENING Mother with breast cancer. TECHNIQUE: SCRN MAMM (CAD)W/DAYANNA BILAT COMPARISON: Prior exam(s) dated January 01, 2023.. FINDINGS: TISSUE DENSITY: There are scattered areas of fibroglandular density. Bilateral Breast Mammographic Findings: No significant masses, calcifications or other abnormalities are identified. Stable small lymph node seen in the axillary region of the right breast. No suspicious masses, areas of developing architectural distortion, or suspicious calcifications. There has been no significant interval change. BI/SCRN MAMM (CAD)W/DAYANNA BILAT IMPRESSION: Stable examination. OVERALL FINAL ASSESSMENT BI-RADS 2: BENIGN RECOMMENDATION: Routine annual follow-up in 1 Year A letter with findings and recommendations will be mailed to the patient. Reading Location: [facility] CC: Gerda Wilks MD ~ Marketing Writer: Signed [facility] SCRN MAMM (CAD)W/ADYANNA BILATo n 03-12-2025 SCRN MAMM (CAD)W/DAYANNA BILAT [facility] Imaging Services [address] [place] [address] SCRN MAMM (CAD)W/DAYANNA BILAT MR#: [id number] Acct: [id number] Name: KAMILAH MCKEON Rep #: [id number] : 1945 F 80 From: Rick richmond MD PCP: Gerda Wilks MD Status: [facility] Study: SCRN MAMM (CAD)W/DAYANNA BILAT Date of Exam: 02/24 03/20 Exam# [id number] Ordering Dr: Gerda Wilks MD EXAM: SCRN MAMM (CAD)W/DAYANNA BILAT DATE: 03/12/2025 CLINICAL HISTORY: F, Age 80 y/o , SCREENING Mother with breast cancer. TECHNIQUE: SCRN MAMM (CAD)W/DAYANNA BILAT COMPARISON: Prior exam(s) dated January 01, 2023.. FINDINGS: TISSUE DENSITY: There are scattered areas of fibroglandular density. Bilateral Breast Mammographic Findings: No significant masses, calcifications or other abnormalities are identified. Stable small lymph node seen in the axillary region of the right breast. No suspicious masses, areas of developing architectural distortion, or suspicious calcifications. There has been no significant interval change. BI/SCRN MAMM (CAD)W/DAYANNA BILAT IMPRESSION: Stable examination. OVERALL FINAL ASSESSMENT BI-RADS 2: BENIGN RECOMMENDATION: Routine annual follow-up in 1 Year A letter with findings and recommendations will be mailed to the patient. Reading Location: [facility] CC: Gerda Wilks MD Marketing Writer: Signed Normal [facility] Anion gap in Serum or Plasma Ordered By: Gerda Wilks on 02-12-2025 Anion gap [Moles/Vol] 12 mmol/L - [facility] BUN/creatinine ratioOrdered By: Gerda Wilks on 02-12-2025 Urea nitrogen/Creatinine [Mass ratio] 21.1 mg/mg High 06-15 [facility] Basic Metabolic Profile (BMP )on 02-12-2025 BUN/CRE 21.1 RATIO High 06-15 [facility] Comment on above: Order Comment: 128 Performed By: #### L 500.2500, L100.0500 #### [facility] [address] [place], [address] Calcium [Mass/Vol] 8.7 mg/dL Normal 7.6-11.0 [facility] Comment on above: Order Comment: 128 Performed By: #### L 500.2500, L100.0500 #### [facility] [address] [place], [address] Chloride [Moles/Vol] 107 mmol/L Normal 98-108 [facility] Comment on above: Order Comment: 128 Performed By: #### L 500.2500, L100.0500 #### [facility] [address] [place], [address] CO2 [Moles/Vol] 22.6 mmol/L Normal 21.0-32.0 [facility] Comment on above: Order Comment: 128 Performed By: #### L 500.2500, L100.0500 #### [facility] [address] [place], [address] Creatinine [Mass/Vol] 0.85 mg/dL Normal 0.70-1.20 [facility] Comment on above: Order Comment: 128 Performed By: #### L 500.2500, L100.0500 #### [facility] [address] [place], [address] GAP 12 Normal -15 [facility] Comment on above: Order Comment: 128 Performed By: #### L 500.2500, L100.0500 #### [facility] [address] [place], [address] GFR/1.73 sq M.predicted among non-blacks MDRD (S/P/Bld) [Vol rate/Area] 71 mL/min/{1.73_m2} Normal >60 [facility] Comment on above: Order Comment: 128 Result Comment: mL/m in/1.73m2 CKD-EPI Creatinine Equation (2020) Performed By: #### L 500.2500, L100.0500 #### [facility] [address] [place], [address] Glucose [Mass/Vol] 98 mg/dL Normal 70-99 [facility] Comment on above: Order Comment: 128 Performed By: #### L 500.2500, L100.0500 #### [facility] [address] [place], [address] Potassium [Moles/Vol] 4.5 mmol/L Normal 3.3-5.1 [facility] Comment on above: Order Comment: 128 Result Comment: Hemo lysis present, Results??could be affected. ?? Performed By: #### L 500.2500, L100.0500 #### [facility] [address] [place], [address] Sodium [Moles/Vol] 141 mmol/L Normal 133-145 [facility] Comment on above: Order Comment: 128 Performed By: #### L 500.2500, L100.0500 #### [facility] [address] [place], [address] Urea nitrogen [Mass/Vol] 18 mg/dL Normal 4-19 [facility] Comment on above: Order Comment: 128 Performed By: #### L 500.2500, L100.0500 #### [facility] [address] [place], [address] CBC-Complete Blood Cnt No Di ffon 02-12-2025 Erythrocyte distribution width (RBC) [Ratio] 15.9 % High 11.6-14.6 [facility] Comment on above: Order Comment: 128 Performed By: #### L 500.2500, L100.0500 #### [facility] [address] [place], [address] Hematocrit (Bld) [Volume fraction] 36.5 % Low 37-47 [facility] Comment on above: Order Comment: 128 Performed By: #### L 500.2500, L100.0500 #### [facility] [address] [place], [address] Hemoglobin (Bld) [Mass/Vol] 11.7 g/dL Low 12.0-15.0 [facility] Comment on above: Order Comment: 128 Performed By: #### L 500.2500, L100.0500 #### [facility] [address] [place], [address] MCH (RBC) [Entitic mass] 29.6 pg Normal 27.0-32.0 [facility] Comment on above: Order Comment: 128 Performed By: #### L 500.2500, L100.0500 #### [facility] [address] [place], [address] MCHC (RBC) [Mass/Vol] 32.1 g/dL Normal 32-36 [facility] Comment on above: Order Comment: 128 Performed By: #### L 500.2500, L100.0500 #### [facility] [address] [place], [address] MCV (RBC) [Entitic vol] 92.4 fL Normal 81-99 [facility] Comment on above: Order Comment: 128 Performed By: #### L 500.2500, L100.0500 #### [facility] [address] [place], [address] Platelet mean volume (Bld) [Entitic vol] 11.5 fL Normal 6.2-12.0 [facility] Comment on above: Order Comment: 128 Performed By: #### L 500.2500, L100.0500 #### [facility] [address] [place], [address] Platelets (Bld) [#/Vol] 214 10*3/uL Normal 150-450 [facility] Comment on above: Order Comment: 128 Performed By: #### L 500.2500, L100.0500 #### [facility] [address] [place], [address] RBC (Bld) [#/Vol] 3.95 10*6/uL Low 4.2-5.4 [facility] Comment on above: Order Comment: 128 Performed By: #### L 500.2500, L100.0500 #### [facility] [address] [place], [address] RDW SD 53.2 fl High 35.1-43.9 [facility] Comment on above: Order Comment: 128 Performed By: #### L 500.2500, L100.0500 #### [facility] [address] [place], [address] WBC (Bld) [#/Vol] 5.6 10*3/uL Normal 4.4-11.0 [facility] Comment on above: Order Comment: 128 Performed By: #### L 500.2500, L100.0500 #### [facility] [address] [place], [address] Carbon dioxide, total [Moles /volume] in Central venous bloodOrdered By: Gerda Wilks on 02-12-2025 CO2 [Moles/Vol] 22.6 mmol/L 21.0-32.0 [facility] Chloride assayOrdered By: Go Wilks on 02-12-2025 Chloride [Moles/Vol] 107 mmol/L 98-108 [facility] Erythrocyte distribution wid th ratioOrdered By: Gerda Wilks on 02-12-2025 Erythrocyte distribution width (RBC) [Ratio] 15.9 % High 11.6-14.6 [facility] [facility] Erythrocyte distribution wid th standard deviationOrdered By: Gerda Wilks on 02-12-2025 Erythrocyte distribution width (RBC) [Ratio] 53.2 fl High 35.1-43.9 [facility] Glomerular filtration rate ( GFR) estimation/1.73 sq m using serum, plasma, or whole bOrdered By: Gerda Wilks on 02-12-2025 GFR/1.73 sq M.predicted among non-blacks MDRD (S/P/Bld) [Vol rate/Area] 71 mL/min/{1.73_m2} >60 [facility] Comment on above: mL/min/1.73m2 CKD-EP I Creatinine Equation (2020) Hematocrit Auto (Bld) [Volum e fraction]Ordered By: Gerda Wilks on 02-12-2025 Hematocrit (Bld) [Volume fraction] 36.5 % Low 37-47 [facility] Hemoglobin measurementOrdere d By: Gerda Wilks on 02-12-2025 Hemoglobin (Bld) [Mass/Vol] 11.7 g/dL Low 12.0-15.0 [facility] MCV (mean corpuscular volume ) determinationOrdered By: Gerda Wilks on 02-12-2025 MCV (RBC) [Entitic vol] 92.4 fL 81-99 [facility] Mean corpuscular hemoglobin (MCH) determinationOrdered By: Gerda Wilks on 02-12-2025 MCH (RBC) [Entitic mass] 29.6 pg 27.0-32.0 [facility] Mean corpuscular hemoglobin concentration (MCHC) determinationOrdered By: Gerda Wilks on 02-12-2025 MCHC (RBC) [Mass/Vol] 32.1 g/dL 32-36 [facility] Mean platelet volume determi nationOrdered By: Gerda Wilks on 02-12-2025 Platelet mean volume (Bld) [Entitic vol] 11.5 fL 6.2-12.0 [facility] Platelet countOrdered By: Go Wilks on 02-12-2025 Platelets (Bld) [#/Vol] 214 10*3/uL 150-450 [facility] Potassium measurement (mass/ volume)Ordered By: Gerda Wilks on 02-12-2025 Potassium (Unsp spec) [Mass/Vol] 4.5 mmol/L 3.3-5.1 [facility] Comment on above: Hemolysis present, R esults could be affected. RBC Auto (Bld) [#/Vol]Ordere d By: Gerda Wilks on 02-12-2025 RBC (Bld) [#/Vol] 3.95 10*6/uL Low 4.2-5.4 [facility] Serum creatinine measurement (mass/volume)Ordered By: Gerda Wilks on 02-12-2025 Creatinine [Mass/Vol] 0.85 mg/dL 0.70-1.20 [facility] Serum glucose measurement (m ass/volume)Ordered By: Gerda Wilks on 02-12-2025 Glucose [Mass/Vol] 98 mg/dL 70-99 [facility] Serum or plasma calcium chay urement (mass/volume)Ordered By: Gerda Wilks on 02-12-2025 Calcium [Mass/Vol] 8.7 mg/dL 7.6-11.0 [facility] Serum or plasma urea nitroge n measurement (mass/volume)Ordered By: Gerda Wilks on 02-12-2025 Urea nitrogen [Mass/Vol] 18 mg/dL 4-19 [facility] Sodium levelOrdered By: Melani Wilks on 02-12-2025 Sodium [Moles/Vol] 141 mmol/L 133-145 [facility] White blood cell (WBC) count Ordered By: Gerda Wilks on 02-12-2025 WBC (Bld) [#/Vol] 5.6 10*3/uL 4.4-11.0 [facility] Brain without Contraston Brain without Contrast [facility] Imaging Services [address] [place], [place] [address] [address] Brain without Contrast MR#: [id number] Acct: [id number] Name: KAMILAH MCKEON Rep #: [id number] : 1945 79 From: Kurt Kwok DO PCP: Greda Wilks MD Status: ADM BALBINA Study: Brain without Contrast Date of Exam: 02/09/25 Exam# [id number] Ordering Dr: Jaciel Olivier MD PROCEDURE: BRAIN [...] UNREMARKABLE BRAIN MRI WITHOUT CONTRAST. Reading [facility] CC: Dr. Jaciel Olivier MD; Gerda Wilks MD Marketing Writer: Signed Normal [facility] Discharge Instructionon 01-25 Discharge Instruction [facility] Medical Records Department [address] [place] [address] Instructions for Home/Discharge Instructions 02/09/25 1020 MR#: [id number] Acct: [id number] Name: KAMILAH MCKEON Rep #: [id number] : 1945 79 From: Jaciel Olivier MD [...] Hartman DO; Geovani Gregg MD Signed Normal [facility] Magnetic resonance imaging r eportOrdered By: Kurt Kwok on 02-09-2025 Study report [facility] Imaging Services [address] [place] [address] Brain without Contrast MR#: [id number] Acct: [id number] Name: KAMILAH MCKEON Rep #: [id number] : 1945 F 79 From: Pet er Peer DO PCP: Gerda Wilks MD Status: ADM BALBINA Study:Brain without Contrast Date of Exam: 02/09/25 Exam# [id number] Ordering Dr: Jaciel Olivier MD PROCEDURE: BRAIN [...] UNREMARKABLE BRAIN MRI WITHOUT CONTRAST. Reading [facility] CC: Dr. Jaciel Olivier MD; Gerda Wilks MD ~ Marketing Writer: Signed [facility] Absolute lymphocyte countOrd ered By: Jaciel Olivier on 02-08-2025 Lymphocytes Auto (Unsp spec) [#/Vol] 1.55 10*3/uL 0.83-4.51 [facility] Absolute neutrophil countOrd ered By: Jaciel Olivier on 02-08-2025 Neutrophils (Bld) [#/Vol] 2.9 10*3/uL 2.0-7.7 [facility] Anion gap in Serum or Plasma Ordered By: Jaciel Olivier on 02-08-2025 Anion gap [Moles/Vol] 9 mmol/L 01-08 [facility] Automated lymphocyte count a s percentage of total leukocytesOrdered By: Jaciel Olivier on 02-08-2025 Lymphocytes/100 WBC Auto (Unsp spec) 29.1 % [facility] BUN/creatinine ratioOrdered By: Jaciel Olivier on 02-08-2025 Urea nitrogen/Creatinine [Mass ratio] 18.7 mg/mg 06-15 [facility] Basic Metabolic Profile (BMP )on 02-08-2025 BUN/CRE 18.7 RATIO Normal 06-15 [facility] Comment on above: Order Comment: 128 Performed By: #### L 100.0500, L500.2500, L503.7505 #### [facility] [address] [place], [address] Calcium [Mass/Vol] 9.5 mg/dL Normal 7.6-11.0 [facility] Comment on above: Order Comment: 128 Performed By: #### L 100.0500, L500.2500, L503.7505 #### [facility] [address] [place], [address] Chloride [Moles/Vol] 110 mmol/L High 98-108 [facility] Comment on above: Order Comment: 128 Performed By: #### L 100.0500, L500.2500, L503.7505 #### [facility] [address] [place], [address] CO2 [Moles/Vol] 23.6 mmol/L Normal 21.0-32.0 [facility] Comment on above: Order Comment: 128 Performed By: #### L 100.0500, L500.2500, L503.7505 #### [facility] [address] [place], [address] Creatinine [Mass/Vol] 0.76 mg/dL Normal 0.70-1.20 [facility] Comment on above: Order Comment: 128 Performed By: #### L 100.0500, L500.2500, L503.7505 #### [facility] [address] [place], [address] ECRCL 51.63 ml/min Normal 50-250 [facility] Comment on above: Order Comment: 128 Performed By: #### L 100.0500, L500.2500, L503.7505 #### [facility] [address] [place], [address] GAP 9 Normal 5-15 [facility] Comment on above: Order Comment: 128 Performed By: #### L 100.0500, L500.2500, L503.7505 #### [facility] [address] [place], [address] GFR/1.73 sq M.predicted among non-blacks MDRD (S/P/Bld) [Vol rate/Area] 81 mL/min/{1.73_m2} Normal >60 [facility] Comment on above: Order Comment: 128 Result Comment: mL/m in/1.73m2 CKD-EPI Creatinine Equation (2020) Performed By: #### L 100.0500, L500.2500, L503.7505 #### [facility] [address] [place], [address] Glucose [Mass/Vol] 103 mg/dL High 70-99 [facility] Comment on above: Order Comment: 128 Performed By: #### L 100.0500, L500.2500, L503.7505 #### [facility] [address] [place], [address] Potassium [Moles/Vol] 3.9 mmol/L Normal 3.3-5.1 [facility] Comment on above: Order Comment: 128 Performed By: #### L 100.0500, L500.2500, L503.7505 #### [facility] [address] [place], [address] Sodium [Moles/Vol] 143 mmol/L Normal 133-145 [facility] Comment on above: Order Comment: 128 Performed By: #### L 100.0500, L500.2500, L503.7505 #### [facility] [address] [place], [address] Urea nitrogen [Mass/Vol] 14 mg/dL Normal 4-19 [facility] Comment on above: Order Comment: 128 Performed By: #### L 100.0500, L500.2500, L503.7505 #### [facility] [address] [place], [address] Basophil percentageOrdered B y: Jaciel Olivier on 02-08-2025 Basophils/100 WBC (Bld) 1.3 % High 0-1 [facility] CBC W/Diff, Automatedon 01-25 Absolute Lymph 1.55 X10 3/uL Normal 0.83-4.51 [facility] Comment on above: Performed By: #### L 100.0500, L500.2500, L503.7505 #### [facility] [address] [place], [address] Absolute Neut 2.9 X10 3/uL Normal 2.0-7.7 [facility] Comment on above: Performed By: #### L 100.0500, L500.2500, L503.7505 #### [facility] [address] [place], [address] Basophils/100 WBC (Bld) 1.3 % High 0-1 [facility] Comment on above: Performed By: #### L 100.0500, L500.2500, L503.7505 #### [facility] [address] [place], [address] Eosinophils/100 WBC (Bld) 5.3 % High 0-5 [facility] Comment on above: Performed By: #### L 100.0500, L500.2500, L503.7505 #### [facility] [address] [place], [address] Erythrocyte distribution width (RBC) [Ratio] 15.9 % High 11.6-14.6 [facility] Comment on above: Performed By: #### L 100.0500, L500.2500, L503.7505 #### [facility] [address] [place], [address] Hematocrit (Bld) [Volume fraction] 35.9 % Low 37-47 [facility] Comment on above: Performed By: #### L 100.0500, L500.2500, L503.7505 #### [facility] [address] [place], [address] Hemoglobin (Bld) [Mass/Vol] 11.3 g/dL Low 12.0-15.0 [facility] Comment on above: Performed By: #### L 100.0500, L500.2500, L503.7505 #### [facility] [address] [place], [address] IG% 0.400 Normal 0.0-0.9 [facility] Comment on above: Result Comment: IG% - Immature Granulocytes (promyelocytes, myelocytes and metamyelocytes) > 1% indicates that a LEFT SHIFT is Present. Performed By: #### L 100.0500, L500.2500, L503.7505 #### [facility] [address] [place], [address] Lymphocytes/100 WBC (Bld) 29.1 % Normal 19-41 [facility] Comment on above: Performed By: #### L 100.0500, L500.2500, L503.7505 #### [facility] [address] [place], [address] MCH (RBC) [Entitic mass] 29.2 pg Normal 27.0-32.0 [facility] Comment on above: Performed By: #### L 100.0500, L500.2500, L503.7505 #### [facility] [address] [place], [address] MCHC (RBC) [Mass/Vol] 31.5 g/dL Low 32-36 [facility] Comment on above: Performed By: #### L 100.0500, L500.2500, L503.7505 #### [facility] [address] [place], [address] MCV (RBC) [Entitic vol] 92.8 fL Normal 81-99 [facility] Comment on above: Performed By: #### L 100.0500, L500.2500, L503.7505 #### [facility] [address] [place], [address] Monocytes/100 WBC (Bld) 9.4 % Normal 0-10 [facility] Comment on above: Performed By: #### L 100.0500, L500.2500, L503.7505 #### [facility] [address] [place], [address] Neutrophils/100 WBC (Bld) 54.5 % Normal 47-70 [facility] Comment on above: Performed By: #### L 100.0500, L500.2500, L503.7505 #### [facility] [address] [place], [address] Nucleated RBC (Bld) [#/Vol] 0 10*3/uL Normal 0-5 [facility] Comment on above: Performed By: #### L 100.0500, L500.2500, L503.7505 #### [facility] [address] [place], [address] Platelet mean volume (Bld) [Entitic vol] 11.1 fL Normal 6.2-12.0 [facility] Comment on above: Performed By: #### L 100.0500, L500.2500, L503.7505 #### [facility] [address] [place], [address] Platelets (Bld) [#/Vol] 211 10*3/uL Normal 150-450 [facility] Comment on above: Performed By: #### L 100.0500, L500.2500, L503.7505 #### [facility] [address] [place], [address] RBC (Bld) [#/Vol] 3.87 10*6/uL Low 4.2-5.4 [facility] Comment on above: Performed By: #### L 100.0500, L500.2500, L503.7505 #### [facility] [address] [place], [address] RDW SD 54.4 fl High 35.1-43.9 [facility] Comment on above: Performed By: #### L 100.0500, L500.2500, L503.7505 #### [facility] [address] [place], [address] WBC (Bld) [#/Vol] 5.3 10*3/uL Normal 4.4-11.0 [facility] Comment on above: Performed By: #### L 100.0500, L500.2500, L503.7505 #### [facility] [address] [place], [address] Calculated very low density lipoprotein (VLDL) cholesterol measurementOrdered By: Jaciel Olivier on 02-08-2025 Calculated very low density lipoprotein (VLDL) cholesterol measurement 29 mg/dL 5-40 [facility] Carbon dioxide, total [Moles /volume] in Central venous bloodOrdered By: Jaciel Olivier on 02-08-2025 CO2 [Moles/Vol] 23.6 mmol/L 21.0-32.0 [facility] Chloride assayOrdered By: Patti Olivier on 02-08-2025 Chloride [Moles/Vol] 110 mmol/L High 98-108 [facility] Eosinophil percentageOrdered By: Jaciel Olivier on 02-08-2025 Eosinophils/100 WBC (Bld) 5.3 % High 0-5 [facility] Erythrocyte distribution wid th ratioOrdered By: Jaciel Olivier on 02-08-2025 Erythrocyte distribution width (RBC) [Ratio] 15.9 % High 11.6-14.6 [facility] Erythrocyte distribution wid th standard deviationOrdered By: Jaciel Olivier on 02-08-2025 Erythrocyte distribution width (RBC) [Ratio] 54.4 fl High 35.1-43.9 [facility] Glomerular filtration rate ( GFR) estimation/1.73 sq m using serum, plasma, or whole bOrdered By: Jaciel Olivier on 02-08-2025 GFR/1.73 sq M.predicted among non-blacks MDRD (S/P/Bld) [Vol rate/Area] 81 mL/min/{1.73_m2} >60 [facility] Comment on above: mL/min/1.73m2 CKD-EP I Creatinine Equation (2020) Hematocrit Auto (Bld) [Volum e fraction]Ordered By: Jaciel Olivier on 02-08-2025 Hematocrit (Bld) [Volume fraction] 35.9 % Low 37-47 [facility] Hemoglobin measurementOrdere d By: Jaciel Olivier on 02-08-2025 Hemoglobin (Bld) [Mass/Vol] 11.3 g/dL Low 12.0-15.0 [facility] Immature granulocytes/100 WB C Auto (Bld)Ordered By: Jaciel Olivier on 02-08-2025 Immature granulocytes/100 WBC (Bld) 0.400 % 0.0-0.9 [facility] Comment on above: IG% - Immature Granu locytes (promyelocytes, myelocytes and metamyelocytes) > 1% indicates that a LEFT SHIFT is Present. LDL calc ser/plasOrdered By: Jaciel Olivier on 02-08-2025 Cholesterol in LDL [Mass/Vol] 77 mg/dL [facility] Comment on above: Eljpzzlkjp=877-223 m g/dL & Higher Efjl=385 mg/dL or greater Lipid Profileon 02-08-2025 CHOL:HDL 3.36 Normal [facility] Comment on above: Order Comment: 510- Performed By: #### L 500.2500, L100.0500 #### [facility] [address] [place], [address] Cholesterol [Mass/Vol] 152 mg/dL Normal <=200 [facility] Comment on above: Order Comment: Result Comment: Chol esterol level, Desirable <200 mg/dL Borderline high cholesterol 200-239 mg/dL High cholesterol >=240 mg/dL Recommendations of the NCEP Adult Treatment Panel for the following risk-cutoff thresholds for the [place] population. Performed By: #### L 500.2500, L100.0500 #### [facility] [address] [place], [address] Cholesterol in HDL [Mass/Vol] 45 mg/dL Normal [facility] Comment on above: Order Comment: Result Comment: Noemy onal Cholesterol Education Program (NCEP) guidelines: <40 mg/dL: Low HDL-cholesterol (major risk factor for CHD) >= 60 mg/dL: High HDL-cholesterol (negative risk factor for CHD) HDL-cholesterol is affected by a number of factors, e.g. smoking, exercise, hormones, sex and age. Performed By: #### L 500.2500, L100.0500 #### [facility] [address] [place], [address] Cholesterol in LDL [Mass/Vol] 77 mg/dL Normal [facility] Comment on above: Order Comment: 510 Result Comment: Bord swsebf=245-636 mg/dL Higher Cwzi=642 mg/dL or greater Performed By: #### L 500.2500, L100.0500 #### [facility] [address] [place], [address] Cholesterol in VLDL [Mass/Vol] 29 mg/dL Normal 5-40 [facility] Comment on above: Order Comment: 510- Performed By: #### L 500.2500, L100.0500 #### [facility] [address] [place], [address] Triglyceride [Mass/Vol] 147 mg/dL Normal [facility] Comment on above: Order Comment: 510-1 Result Comment: The drugs N-Acetylcysteine and Metamizole may falsely depress this assay. Normal range: <150 mg/dL Borderline High: 150-199 mg/dL High: 200-499 mg/dL Very High: >500 mg/dL Performed By: #### L 500.2500, L100.0500 #### [facility] [address] [place], [place], [address] MCV (mean corpuscular volume ) determinationOrdered By: Jaciel Olivier on 02-08-2025 MCV (RBC) [Entitic vol] 92.8 fL 81-99 [facility] Mean corpuscular hemoglobin (MCH) determinationOrdered By: Jaciel Olivier on 02-08-2025 MCH (RBC) [Entitic mass] 29.2 pg 27.0-32.0 [facility] Mean corpuscular hemoglobin concentration (MCHC) determinationOrdered By: Jaciel Olivier on 02-08-2025 MCHC (RBC) [Mass/Vol] 31.5 g/dL Low 32-36 [facility] Mean platelet volume determi nationOrdered By: Jaciel Olivier on 02-08-2025 Platelet mean volume (Bld) [Entitic vol] 11.1 fL 6.2-12.0 [facility] Monocyte percentageOrdered B y: Jaciel Olivier on 02-08-2025 Monocytes/100 WBC (Bld) 9.4 % 0-10 [facility] Neutrophil percentageOrdered By: Jaciel Olivier on 02-08-2025 Neutrophils/100 WBC (Bld) 54.5 % 47-70 [facility] Nucleated red blood cell per centageOrdered By: Jaciel Olivier on 02-08-2025 Nucleated RBC/100 WBC (Bld) [Ratio] 0 % 0-5 [facility] Platelet countOrdered By: Patti Olivier on 02-08-2025 Platelets (Bld) [#/Vol] 211 10*3/uL 150-450 [facility] Potassium measurement (mass/ volume)Ordered By: Jaciel Olivier on 02-08-2025 Potassium (Unsp spec) [Mass/Vol] 3.9 mmol/L 3.3-5.1 [facility] RBC Auto (Bld) [#/Vol]Ordere d By: Jaciel Olivier on 02-08-2025 RBC (Bld) [#/Vol] 3.87 10*6/uL Low 4.2-5.4 [facility] Screening total cholesterol/ high density lipoprotein (HDL) cholesterol ratioOrdered By: Jaciel Olivier on 02-08-2025 Cholesterol.total/Choles terol in HDL [Mass ratio] 3.36 {ratio} [facility] Serum creatinine measurement (mass/volume)Ordered By: Jaciel Olivier on 02-08-2025 Creatinine [Mass/Vol] 0.76 mg/dL 0.70-1.20 [facility] Serum glucose measurement (m ass/volume)Ordered By: Jaciel Olivier on 02-08-2025 Glucose [Mass/Vol] 103 mg/dL High 70-99 [facility] Serum or plasma calcium chay urement (mass/volume)Ordered By: Jaciel Olivier on 02-08-2025 Calcium [Mass/Vol] 9.5 mg/dL 7.6-11.0 [facility] Serum or plasma cholesterol in HDL measurement (mass/volume)Ordered By: Jaciel Olivier on 02-08-2025 Cholesterol in HDL [Mass/Vol] 45 mg/dL >40 [facility] Comment on above: National Cholesterol Education Program (NCEP) guidelines:<40 mg/dL: Low HDL-cholesterol (major risk factor for CHD)>= 60 mg/dL: High HDL-cholesterol (negative risk factor for CHD)HDL-cholesterol is affected by a number of factors, e.g. smoking, exercise, hormones, sex and age. Serum or plasma cholesterol measurement (mass/volume)Ordered By: Jaciel Olivier on 02-08-2025 Cholesterol [Mass/Vol] 152 mg/dL <201 [facility] Comment on above: Cholesterol level, D esirable <200 mg/dLBorderline high cholesterol 200-239 mg/dLHigh cholesterol >=240 mg/dLRecommendations of the NCEP Adult Treatment Panel for the following risk-cutoff thresholds for the [place] population. Serum or plasma urea nitroge n measurement (mass/volume)Ordered By: Jaciel Olivier on 02-08-2025 Urea nitrogen [Mass/Vol] 14 mg/dL 4-19 [facility] Sodium levelOrdered By: Rowdy Olivier on 02-08-2025 Sodium [Moles/Vol] 143 mmol/L 133-145 [facility] Triglycerides measurementOrd ered By: Jaciel Olivier on 02-08-2025 Triglyceride [Mass/Vol] 147 mg/dL <199 [facility] Comment on above: The drugs N-Acetylcy steine and Metamizole may falsely depress this assay. Normal range: <150 mg/dLBorderline High: 150-199 mg/dLHigh: 200-499 mg/dLVery High: >500 mg/dL White blood cell (WBC) count Ordered By: Jaciel Olivier on 02-08-2025 WBC (Bld) [#/Vol] 5.3 10*3/uL 4.4-11.0 [facility] 12 Lead EKGon 02-07-2025 12 Lead EKG [facility] Cardiovascular Services [address] [place] [address] 12 Lead EKG 02/07/25 0952 MR#: [id number] Acct: [id number] Name: KAMILAH MCKEON Rep #: [id number] : 1945 79 From: Oni Rivera MD Attending Dr: Dr. Jaciel Olivier MD Status : DIS BALBINA Ordering Dr: Compa Sibley MD Date: 02/07/25 Location: U Sex: F C Admitted: 02/07/25 Test Reason : STROKE TEAM Blood Pressure : */* mmHG Vent. Rate : 67 BPM Atrial Rate : 67 BPM P-R Int : 170 ms QRS Dur : 92 ms QT Int : 436 ms P-R-T Axes : 42 -8 13 degrees QTcB Int : 460 ms Normal sinus rhythm Normal ECG Confirmed by ONI RIVERA MD ([id number]), editor in chief PAULY ADAMS ([id number]) on 02/10/2025 8:21:59 AM Referred By: Confirmed By: ONI RIVERA MD 02/10/25821 Date Oni Rivera MD CC: Dr. Compa Sibley MD; Dr. Jaciel Olivier MD; Gerda Wilks MD Signed Normal [facility] Absolute lymphocyte countOrd ered By: Compa Sibley on 02-07-2025 Lymphocytes Auto (Unsp spec) [#/Vol] 0.89 10*3/uL 0.83-4.51 [facility] Absolute neutrophil countOrd ered By: Compa Sibley on 02-07-2025 Neutrophils (Bld) [#/Vol] 5.3 10*3/uL 2.0-7.7 [facility] Activated partial thrombopla stin time (aPTT) in platelet poor plasma by coagulation aOrdered By: Compa Sibley on 02-07-2025 aPTT Coag (PPP) [Time] 33.3 s 24.1-36.2 [facility] Anion gap in Serum or Plasma Ordered By: Compa Sibley on 02-07-2025 Anion gap [Moles/Vol] 9 mmol/L 5- [facility] Automated lymphocyte count a s percentage of total leukocytesOrdered By: Compa Sibley on 02-07-2025 Lymphocytes/100 WBC Auto (Unsp spec) 12.9 % Low 19-41 [facility] BUN/creatinine ratioOrdered By: Compa Sibley on 02-07-2025 Urea nitrogen/Creatinine [Mass ratio] 23.7 mg/mg High 06-15 [facility] Basic Metabolic Profile (BMP )on 02-07-2025 BUN/CRE 23.7 RATIO High 06-15 [facility] Comment on above: Performed By: #### L 100.0500, L500.2500, L503.7505 #### [facility] [address] [place], [address] Calcium [Mass/Vol] 9.3 mg/dL Normal 7.6-11.0 [facility] Comment on above: Performed By: #### L 100.0500, L500.2500, L503.7505 #### [facility] [address] [place], [address] Chloride [Moles/Vol] 107 mmol/L Normal 98-108 [facility] Comment on above: Performed By: #### L 100.0500, L500.2500, L503.7505 #### [facility] [address] [place], [address] CO2 [Moles/Vol] 21.1 mmol/L Normal 21.0-32.0 [facility] Comment on above: Performed By: #### L 100.0500, L500.2500, L503.7505 #### [facility] [address] [place], [address] Creatinine [Mass/Vol] 0.77 mg/dL Normal 0.70-1.20 [facility] Comment on above: Performed By: #### L 100.0500, L500.2500, L503.7505 #### [facility] [address] [place], [address] ECRCL 51.78 ml/min Normal 50-250 [facility] Comment on above: Performed By: #### L 100.0500, L500.2500, L503.7505 #### [facility] [address] [place], [address] GAP 9 Normal 5-15 [facility] Comment on above: Performed By: #### L 100.0500, L500.2500, L503.7505 #### [facility] [address] [place], [address] GFR/1.73 sq M.predicted among non-blacks MDRD (S/P/Bld) [Vol rate/Area] 79 mL/min/{1.73_m2} Normal >60 [facility] Comment on above: Result Comment: mL/m in/1.73m2 CKD-EPI Creatinine Equation (2020) Performed By: #### L 100.0500, L500.2500, L503.7505 #### [facility] [address] [place], [address] Glucose [Mass/Vol] 117 mg/dL High 70-99 [facility] Comment on above: Performed By: #### L 100.0500, L500.2500, L503.7505 #### [facility] [address] [place], [address] Potassium [Moles/Vol] 4.0 mmol/L Normal 3.3-5.1 [facility] Comment on above: Result Comment: Hemo lysis present, Results??could be affected. ?? Performed By: #### L 100.0500, L500.2500, L503.7505 #### [facility] [address] [place], [address] Sodium [Moles/Vol] 137 mmol/L Normal 133-145 [facility] Comment on above: Performed By: #### L 100.0500, L500.2500, L503.7505 #### [facility] [address] [place], [address] Urea nitrogen [Mass/Vol] 18 mg/dL Normal 4-19 [facility] Comment on above: Performed By: #### L 100.0500, L500.2500, L503.7505 #### [facility] [address] [place], [address] Basophil percentageOrdered B y: Compa Sibley on 02-07-2025 Basophils/100 WBC (Bld) 0.7 % 0-1 [facility] Bilirubin Test strip Ql (U)O rdered By: Compa Sibley on 02-07-2025 Bilirubin Ql (U) Negative Negative [facility] CBC W/Diff, Automatedon 01-25 Absolute Lymph 0.89 X10 3/uL Normal 0.83-4.51 [facility] Comment on above: Performed By: #### L 100.0500, L500.2500, L503.7505 #### [facility] [address] [place], [address] Absolute Neut 5.3 X10 3/uL Normal 2.0-7.7 [facility] Comment on above: Performed By: #### L 100.0500, L500.2500, L503.7505 #### [facility] [address] [place], [address] Basophils/100 WBC (Bld) 0.7 % Normal 0-1 [facility] Comment on above: Performed By: #### L 100.0500, L500.2500, L503.7505 #### [facility] [address] [place], [address] Eosinophils/100 WBC (Bld) 1.6 % Normal 0-5 [facility] Comment on above: Performed By: #### L 100.0500, L500.2500, L503.7505 #### [facility] [address] [place], [address] Erythrocyte distribution width (RBC) [Ratio] 15.9 % High 11.6-14.6 [facility] Comment on above: Performed By: #### L 100.0500, L500.2500, L503.7505 #### [facility] [address] [place], [address] Hematocrit (Bld) [Volume fraction] 35.0 % Low 37-47 [facility] Comment on above: Performed By: #### L 100.0500, L500.2500, L503.7505 #### [facility] [address] [place], [address] Hemoglobin (Bld) [Mass/Vol] 11.4 g/dL Low 12.0-15.0 [facility] Comment on above: Performed By: #### L 100.0500, L500.2500, L503.7505 #### [facility] [address] [place], [address] IG% 0.400 Normal 0.0-0.9 [facility] Comment on above: Result Comment: IG% - Immature Granulocytes (promyelocytes, myelocytes and metamyelocytes) > 1% indicates that a LEFT SHIFT is Present. Performed By: #### L 100.0500, L500.2500, L503.7505 #### [facility] [address] [place], [address] Lymphocytes/100 WBC (Bld) 12.9 % Low 19-41 [facility] Comment on above: Performed By: #### L 100.0500, L500.2500, L503.7505 #### [facility] [address] [place], [address] MCH (RBC) [Entitic mass] 29.8 pg Normal 27.0-32.0 [facility] Comment on above: Performed By: #### L 100.0500, L500.2500, L503.7505 #### [facility] [address] [place], [address] MCHC (RBC) [Mass/Vol] 32.6 g/dL Normal 32-36 [facility] Comment on above: Performed By: #### L 100.0500, L500.2500, L503.7505 #### [facility] [address] [place], [address] MCV (RBC) [Entitic vol] 91.4 fL Normal 81-99 [facility] Comment on above: Performed By: #### L 100.0500, L500.2500, L503.7505 #### [facility] [address] [place], [address] Monocytes/100 WBC (Bld) 7.2 % Normal 0-10 [facility] Comment on above: Performed By: #### L 100.0500, L500.2500, L503.7505 #### [facility] [address] [place], [address] Neutrophils/100 WBC (Bld) 77.2 % High 47-70 [facility] Comment on above: Performed By: #### L 100.0500, L500.2500, L503.7505 #### [facility] [address] [place], [address] Nucleated RBC (Bld) [#/Vol] 0 10*3/uL Normal 0-5 [facility] Comment on above: Performed By: #### L 100.0500, L500.2500, L503.7505 #### [facility] [address] [place], [address] Platelet mean volume (Bld) [Entitic vol] 10.6 fL Normal 6.2-12.0 [facility] Comment on above: Performed By: #### L 100.0500, L500.2500, L503.7505 #### [facility] [address] [place], [address] Platelets (Bld) [#/Vol] 195 10*3/uL Normal 150-450 [facility] Comment on above: Performed By: #### L 100.0500, L500.2500, L503.7505 #### [facility] [address] [place], [address] RBC (Bld) [#/Vol] 3.83 10*6/uL Low 4.2-5.4 [facility] Comment on above: Performed By: #### L 100.0500, L500.2500, L503.7505 #### [facility] [address] [place], [address] RDW SD 53.1 fl High 35.1-43.9 [facility] Comment on above: Performed By: #### L 100.0500, L500.2500, L503.7505 #### [facility] [address] [place], [address] WBC (Bld) [#/Vol] 6.9 10*3/uL Normal 4.4-11.0 [facility] Comment on above: Performed By: #### L 100.0500, L500.2500, L503.7505 #### [facility] [address] [place], [address] Carbon dioxide, total [Moles /volume] in Central venous bloodOrdered By: Compa Sibley on 02-07-2025 CO2 [Moles/Vol] 21.1 mmol/L 21.0-32.0 [facility] Chest 1 Viewon 02-07-2025 Chest 1 View [facility] Imaging Services [address] [place] [address] Chest 1 View MR#: [id number] Acct: [id number] Name: KAMILAH MCKEON Rep #: [id number] : 1945 F 79 From: Kurt Kwok DO PCP: Gerda Wilks MD Status: REG ER Study: Chest 1 View Date of Exam: 02/07/25 Exam# [id number] Ordering Dr: Compa Sibley MD PROCEDURE: CHEST 1 VIEW 02/07/2025 REASON FOR EXAM: NEURO DEFICIT, ACUTE, STROKE SUSPECTED TECHNIQUE: Frontal view of the chest. COMPARISON: None FINDINGS: Hardware: None Heart: Normal size Lungs: Prominent interstitium due to AP technique Bones: No aggressive process. Other: Lung volumes are low limiting sensitivity of the exam RAD/Chest 1 View IMPRESSION: No acute process. [facility] CC: Dr. Compa Sibley MD; Gerda Wilks MD Marketing Writer: Signed Normal [facility] Chloride assayOrdered By: Thiago Sibley on 02-07-2025 Chloride [Moles/Vol] 107 mmol/L 98-108 [facility] Echo Completeon 02-07-2025 Echo Complete [facility] [address] [place] [address] Echo Complete 02/09/25 0959 MR#: [id number] Acct: [id number] Name: KAMILAH MCKEON Rep #: [id number] : 1945 79 From: Oni Rivera MD Attending Dr: Dr. Jaciel Olivier MD Status : DIS BALBINA Ordering Dr: Jaciel Olivier MD Date: 02/07/25 Location: PCU Sex: F C Admitted: 02/07/25 Reason For [...] CARRASCO Performed By: Dee Dee Austin RCS 02/09/25 1919 Date Oni Rivera MD CC: Dr. Jaciel Olivier MD; Gerda Wilks MD Date Dictated: 02/09/2559 Date Transcribed: 02/09/251918 Marketing Writer: Signed Normal [facility] Emergency Department Summary on 02-07-2025 Emergency Department Summary [facility] Medical Records Department [address] [place] [address] Emergency Department Summary 02/07/25 MR#: [id number] Acct: [id number] Name: KAMILAH MCKEON Rep #: [id number] : 1945 79 From: Compa Sibley MD PCP: Gerda Wilks MD Status:REG ER Location: ED HPI History of Present Illness Chief Complaint: Stroke Alert Narrative Narrative: 79-year-old female presents from care home facility with prehospital stroke symptoms. She was last seen well at 11 PM yesterday evening, approximately 10 hours ago. She was 3 hours late for breakfast this morning. According to EMS, halfway noticed slurred speech and possible right facial droop. She also had reported expressive aphasia as well. She had complained to care home facility that she had a headache, but denied it to EMS. 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 [facility] Medical History Injury of back Rectal bleeding [...] Abdomen is (more content not included)... Normal [facility] Eosinophil percentageOrdered By: Compa Sibley on 02-07-2025 Eosinophils/100 WBC (Bld) 1.6 % 0-5 [facility] Erythrocyte distribution wid th ratioOrdered By: Compa Sibley on 02-07-2025 Erythrocyte distribution width (RBC) [Ratio] 15.9 % High 11.6-14.6 [facility] Erythrocyte distribution wid th standard deviationOrdered By: Compa Sibley on 02-07-2025 Erythrocyte distribution width (RBC) [Ratio] 53.1 fl High 35.1-43.9 [facility] Glomerular filtration rate ( GFR) estimation/1.73 sq m using serum, plasma, or whole bOrdered By: Compa Sibley on 02-07-2025 GFR/1.73 sq M.predicted among non-blacks MDRD (S/P/Bld) [Vol rate/Area] 79 mL/min/{1.73_m2} >60 [facility] Comment on above: mL/min/1.73m2 CKD-EP I Creatinine Equation (2020) H AND P Exam - [facility] 02-07-2025 H&P Exam - Hospitalist [facility] Medical Records Department [address] [place] [address] H P Exam - Hospitalist 02/07/25 1401 MR#: [id number] Acct: [id number] Name: KAMILAH MCKEON Rep #: [id number] : 1945 79 From: Jaciel Olivier MD PCP: Gerda Wilks MD Status:ADM BALBINA Location: [place] [address] HPI - General General Date of Admission: [...] the brain was also negative for hemorrhage. [facility] Medical History Injury of back Rectal bleeding [...] mg capsule,delayed 20 mg PO DAILY reflux 12/12/21 Unk nown History release potassium chloride 10 [...] malaise Eyes (more content not included)... Normal [facility] Hematocrit Auto (Bld) [Volum e fraction]Ordered By: Compa Sibley on 02-07-2025 Hematocrit (Bld) [Volume fraction] 35.0 % Low 37-47 [facility] Hemoglobin measurementOrdere d By: Compa Sibley on 02-07-2025 Hemoglobin (Bld) [Mass/Vol] 11.4 g/dL Low 12.0-15.0 [facility] Immature granulocytes/100 WB C Auto (Bld)Ordered By: Compa Sibley on 02-07-2025 Immature granulocytes/100 WBC (Bld) 0.400 % 0.0-0.9 [facility] Comment on above: IG% - Immature Granu locytes (promyelocytes, myelocytes and metamyelocytes) > 1% indicates that a LEFT SHIFT is Present. International normalized rat io (INR) calculationOrdered By: Compa Sibley on 02-07-2025 INR Coag (Bld) [Relative time] 1.1 {INR} [facility] Ketones Test strip Ql (U)Ord ered By: Compa Sibley on 02-07-2025 Ketones Ql (U) Negative Negative [facility] L499.0042on 02-07-2025 Trop T High Sen 9 ng/L Normal <=14 [facility] Comment on above: Performed By: #### L 500.2500, L100.0500 #### [facility] [address] [place], [address] L499.0043on 02-07-2025 Trop T High Sen 11 ng/L Normal <=14 [facility] Comment on above: Performed By: #### L 499.0043 #### [facility] [address] [place], [address] L501.4021on 02-07-2025 Trop T High Sen 9 ng/L Normal <=14 [facility] Comment on above: Performed By: #### L 100.0500, L500.2500, L503.7505 #### [facility] [address] [place], [address] MCV (mean corpuscular volume ) determinationOrdered By: Compa Sibley on 02-07-2025 MCV (RBC) [Entitic vol] 91.4 fL 81-99 [facility] Mean corpuscular hemoglobin (MCH) determinationOrdered By: Compa Sibley on 02-07-2025 MCH (RBC) [Entitic mass] 29.8 pg 27.0-32.0 [facility] Mean corpuscular hemoglobin concentration (MCHC) determinationOrdered By: Compa Sibley on 02-07-2025 MCHC (RBC) [Mass/Vol] 32.6 g/dL 32-36 [facility] Mean platelet volume determi nationOrdered By: Compa Sibley on 02-07-2025 Platelet mean volume (Bld) [Entitic vol] 10.6 fL 6.2-12.0 [facility] Microscopic analysis of urin e for red blood cells (RBC)Ordered By: Compa Sibley on 02-07-2025 Microscopic analysis of urine for red blood cells (RBC) 0 SEEN /hpf 0-5 [facility] Monocyte percentageOrdered B y: Compa Sibley on 02-07-2025 Monocytes/100 WBC (Bld) 7.2 % 0-10 [facility] Mucus LM Ql (Urine sed)Order ed By: Compa Sibley on 02-07-2025 Mucus Ql (Urine sed) 0 SEEN /hpf [facility] Neutrophil percentageOrdered By: Compa Sibley on 02-07-2025 Neutrophils/100 WBC (Bld) 77.2 % High 47-70 [facility] Nitrite Test strip Ql (U)Ord ered By: Compa Sibley on 02-07-2025 Nitrite Ql (U) Negative Negative [facility] Nucleated red blood cell per centageOrdered By: Compa Sibley on 02-07-2025 Nucleated RBC/100 WBC (Bld) [Ratio] 0 % 0-5 [facility] Partial Thromboplast Timeon 02-07-2025 aPTT Coag (Bld) [Time] 33.3 s Normal 24.1-36.2 [facility] Comment on above: Performed By: #### L 100.0500, L500.2500, L503.7505 #### [facility] [address] [place], [place], [address] Platelet countOrdered By: Thiago Sibley on 02-07-2025 Platelets (Bld) [#/Vol] 195 10*3/uL 150-450 [facility] Potassium measurement (mass/ volume)Ordered By: Compa Sibley on 02-07-2025 Potassium (Unsp spec) [Mass/Vol] 4.0 mmol/L 3.3-5.1 [facility] Comment on above: Hemolysis present, R esults could be affected. Protein Test strip Ql (U)Ord ered By: Compa Sibley on 02-07-2025 Protein Ql (U) Negative Negative [facility] Prothrombin Time w/INRon INR Coag (PPP) [Relative time] 1.1 {INR} Normal [facility] Comment on above: Performed By: #### L 100.0500, L500.2500, L503.7505 #### [facility] [address] [place], [place], [address] PT Coag (PPP) [Time] 14.5 s Normal 11.7-14.9 [facility] Comment on above: Performed By: #### L 100.0500, L500.2500, L503.7505 #### [facility] [address] [place], [place], [address] Prothrombin timeOrdered By: Compa Sibley on 02-07-2025 PT Coag (PPP) [Time] 14.5 s 11.7-14.9 [facility] RBC Auto (Bld) [#/Vol]Ordere d By: Compa Sibley on 02-07-2025 RBC (Bld) [#/Vol] 3.83 10*6/uL Low 4.2-5.4 [facility] STROKE Brain/Head without Co nton 02-07-2025 STROKE Brain/Head without Cont [facility] Imaging Services [address] [place], [place] [address] STROKE Brain/Head without Cont MR#: [id number] Acct: [id number] Name: KAMILAH MCKEON Rep #: [id number] : 1945 F 79 From: Edson Acosta PCP: Gerda Wilks MD Status: REG ER Study: STROKE Brain/Head without Cont Date of Exam: 0 02/07/25 Exam# [id number] Ordering Dr: Compa Sibley MD ADDENDUM by Dr. Edson oRdriguez MD on 02/07/[address] Sibley was notified by Edson Rodriguez at 9:50am EST on 02/07/25 Reading Location: [id number] 02/07/25 0958 Date cc: Dr. Compa Sibley [...] No acute, large territorial infarction. Reading Location: [facility] CC: Dr. Compa Sibley MD; Gerda Wilks MD Marketing Writer: Signed Normal [facility] STROKE CTA Head AND Neck W/C onon 02-07-2025 STROKE CTA Head AND Neck W/Con [facility] Imaging Services [address] [place] [address] STROKE CTA Head AND Neck W/Con MR#: [id number] Acct: [id number] Name: KAMILAH MCKEON Rep #: [id number] : 1945 F 79 From: Edson Acosta PCP: Gerda Wilks MD Status: REG ER Study: STROKE CTA Head AND Neck W/Con Date of Exam: 0 02/07/25 Exam# [id number] Ordering Dr: Compa Sibley MD PROCEDURE: STROKE [...] the tip of the basilar. Both proximal [employer]GAL N[employer]SE [employer]SULTANT segments are patent. There is no large [...] at 9:50am EST on 02/07/25 Reading Location: [facility] CC: Dr. Compa Sibley MD; Gerda Wilks MD Marketing Writer: Signed Normal [facility] Serum creatinine measurement (mass/volume)Ordered By: Compa Sibley on 02-07-2025 Creatinine [Mass/Vol] 0.77 mg/dL 0.70-1.20 [facility] Serum glucose measurement (m ass/volume)Ordered By: Compa Sibley on 02-07-2025 Glucose [Mass/Vol] 117 mg/dL High 70-99 [facility] Serum or plasma calcium chay urement (mass/volume)Ordered By: Compa Sibley on 02-07-2025 Calcium [Mass/Vol] 9.3 mg/dL 7.6-11.0 [facility] Serum or plasma urea nitroge n measurement (mass/volume)Ordered By: Compa Sibley on 02-07-2025 Urea nitrogen [Mass/Vol] 18 mg/dL 4-19 [facility] Sodium levelOrdered By: Compa Sibley on 02-07-2025 Sodium [Moles/Vol] 137 mmol/L 133-145 [facility] Squamous epithelial cells de tection in urine sediment by light microscopyOrdered By: Compa Sibley on 02-07-2025 Epithelial cells.squamous LM Ql (Urine sed) 0 SEEN /hpf -10 [facility] Troponin T.cardiac [Mass/vol ume] in Serum or Plasma by High sensitivity methodOrdered By: Compa Sibley on 02-07-2025 Troponin T.cardiac High sensitivity method [Mass/Vol] 11 ng/L <14 [facility] Troponin T.cardiac High sensitivity method [Mass/Vol] 9 ng/L <14 [facility] Troponin T.cardiac High sensitivity method [Mass/Vol] 9 ng/L <14 [facility] Urinalysis, Completeon 02-07 BACTERIA 0 SEEN Normal None Seen [facility] Comment on above: Order Comment: 128 Performed By: #### L 100.0500, L500.2500, L503.7505 #### [facility] [address] [place], [address] EPI,SQUAMOUS 0 SEEN Normal - [facility] Comment on above: Order Comment: 128 Performed By: #### L 100.0500, L500.2500, L503.7505 #### [facility] [address] [place], [address] Mucus Ql (Urine sed) 0 SEEN Normal [facility] Comment on above: Order Comment: 128 Performed By: #### L 100.0500, L500.2500, L503.7505 #### [facility] [address] [place], [address] RBC 0 SEEN Normal 0-5 [facility] Comment on above: Order Comment: 128 Performed By: #### L 100.0500, L500.2500, L503.7505 #### [facility] [address] [place], [address] WBC 0 SEEN Normal 0-5 [facility] Comment on above: Order Comment: 128 Performed By: #### L 100.0500, L500.2500, L503.7505 #### [facility] [address] [place], [address] Urine clarityOrdered By: Bibi Sibley on 02-07-2025 Clarity (U) Clear Clear [facility] Urine color determinationOrd ered By: Compa Sibley on 02-07-2025 Color (U) Yellow Yellow [facility] Urine glucose detectionOrder ed By: Compa Sibley on 02-07-2025 Glucose Ql (U) Normal mg/dl Normal [facility] Urine leukocyte esterase det ection by dipstickOrdered By: Compa Sibley on 02-07-2025 Leukocyte esterase Test strip Ql (U) Negative Negative [facility] Urine pHOrdered By: Compa elliott on 02-07-2025 pH (U) 7.0 [pH] 5.0 - 8.0 [facility] Urine sediment bacteria coun t by microscopy (number/high power field)Ordered By: Compa Sibley on 02-07-2025 Bacteria LM.HPF (Urine sed) [#/Area] 0 /[HPF] None Seen [facility] Urine specific gravity measu rementOrdered By: Compa Sibley on 02-07-2025 Specific gravity (U) [Rel density] 1.005 1.002-1.030 [facility] Urine urobilinogen measureme ntOrdered By: Compa Sibley on 02-07-2025 Urobilinogen Ql (U) Normal mg/dl Normal [facility] White blood cell (WBC) count Ordered By: Compa Sibley on 02-07-2025 WBC (Bld) [#/Vol] 6.9 10*3/uL 4.4-11.0 [facility] White blood cell countOrdere d By: Compa Sibley on 02-07-2025 White blood cell count 0 SEEN /hpf 0-5 [facility] Anion gap in Serum or Plasma Ordered By: Gerda Wilks on 01-30-2025 Anion gap [Moles/Vol] 10 mmol/L 5-15 [facility] BUN/creatinine ratioOrdered By: Gerda Wilks on 01-30-2025 Urea nitrogen/Creatinine [Mass ratio] 23.4 mg/mg High 10-20 [facility] Basic Metabolic Profile (BMP )on 01-30-2025 BUN/CRE 23.4 RATIO High 10-20 [facility] Comment on above: Order Comment: 128 Performed By: #### L 100.0500, L500.2500, L503.7505 #### [facility] [address] [place], [address] Calcium [Mass/Vol] 9.2 mg/dL Normal 7.6-11.0 [facility] Comment on above: Order Comment: 128 Performed By: #### L 100.0500, L500.2500, L503.7505 #### [facility] [address] [place], [address] Chloride [Moles/Vol] 109 mmol/L High 98-108 [facility] Comment on above: Order Comment: 128 Performed By: #### L 100.0500, L500.2500, L503.7505 #### [facility] [address] [place], [address] CO2 [Moles/Vol] 23.1 mmol/L Normal 21.0-32.0 [facility] Comment on above: Order Comment: 128 Performed By: #### L 100.0500, L500.2500, L503.7505 #### [facility] [address] [place], [address] Creatinine [Mass/Vol] 0.85 mg/dL Normal 0.70-1.20 [facility] Comment on above: Order Comment: 128 Performed By: #### L 100.0500, L500.2500, L503.7505 #### [facility] [address] [place], [address] GAP 10 Normal 5-15 [facility] Comment on above: Order Comment: 128 Performed By: #### L 100.0500, L500.2500, L503.7505 #### [facility] [address] [place], [address] GFR/1.73 sq M.predicted among non-blacks MDRD (S/P/Bld) [Vol rate/Area] 71 mL/min/{1.73_m2} Normal >60 [facility] Comment on above: Order Comment: 128 Result Comment: mL/m in/1.73m2 CKD-EPI Creatinine Equation (2020) Performed By: #### L 100.0500, L500.2500, L503.7505 #### [facility] [address] [place], [address] Glucose [Mass/Vol] 112 mg/dL High 70-99 [facility] Comment on above: Order Comment: 128 Performed By: #### L 100.0500, L500.2500, L503.7505 #### [facility] [address] [place], [address] Potassium [Moles/Vol] 4.0 mmol/L Normal 3.3-5.1 [facility] Comment on above: Order Comment: 128 Performed By: #### L 100.0500, L500.2500, L503.7505 #### [facility] [address] [place], [address] Sodium [Moles/Vol] 143 mmol/L Normal 133-145 [facility] Comment on above: Order Comment: 128 Performed By: #### L 100.0500, L500.2500, L503.7505 #### [facility] [address] [place], [address] Urea nitrogen [Mass/Vol] 20 mg/dL High 4-19 [facility] Comment on above: Order Comment: 128 Performed By: #### L 100.0500, L500.2500, L503.7505 #### [facility] [address] [place], [address] CBC-Complete Blood Cnt No Di ffon 01-30-2025 Erythrocyte distribution width (RBC) [Ratio] 16.3 % High 11.6-14.6 [facility] Comment on above: Order Comment: 128 Performed By: #### L 100.0500, L500.2500, L503.7505 #### [facility] [address] [place], [address] Hematocrit (Bld) [Volume fraction] 36.9 % Low 37-47 [facility] Comment on above: Order Comment: 128 Performed By: #### L 100.0500, L500.2500, L503.7505 #### [facility] [address] [place], [address] Hemoglobin (Bld) [Mass/Vol] 11.9 g/dL Low 12.0-15.0 [facility] Comment on above: Order Comment: 128 Performed By: #### L 100.0500, L500.2500, L503.7505 #### [facility] [address] [place], [address] MCH (RBC) [Entitic mass] 29.8 pg Normal 27.0-32.0 [facility] Comment on above: Order Comment: 128 Performed By: #### L 100.0500, L500.2500, L503.7505 #### [facility] [address] [place], [address] MCHC (RBC) [Mass/Vol] 32.2 g/dL Normal 32-36 [facility] Comment on above: Order Comment: 128 Performed By: #### L 100.0500, L500.2500, L503.7505 #### [facility] [address] [place], [address] MCV (RBC) [Entitic vol] 92.3 fL Normal 81-99 [facility] Comment on above: Order Comment: 128 Performed By: #### L 100.0500, L500.2500, L503.7505 #### [facility] [address] [place], [address] Platelet mean volume (Bld) [Entitic vol] 11.2 fL Normal 6.2-12.0 [facility] Comment on above: Order Comment: 128 Performed By: #### L 100.0500, L500.2500, L503.7505 #### [facility] [address] [place], [address] Platelets (Bld) [#/Vol] 242 10*3/uL Normal 150-450 [facility] Comment on above: Order Comment: 128 Performed By: #### L 100.0500, L500.2500, L503.7505 #### [facility] [address] [place], [address] RBC (Bld) [#/Vol] 4.00 10*6/uL Low 4.2-5.4 [facility] Comment on above: Order Comment: 128 Performed By: #### L 100.0500, L500.2500, L503.7505 #### [facility] [address] [place], [address] RDW SD 55.4 fl High 35.1-43.9 [facility] Comment on above: Order Comment: 128 Performed By: #### L 100.0500, L500.2500, L503.7505 #### [facility] [address] [place], [address] WBC (Bld) [#/Vol] 6.8 10*3/uL Normal 4.4-11.0 [facility] Comment on above: Order Comment: 128 Performed By: #### L 100.0500, L500.2500, L503.7505 #### [facility] [address] [place], [address] Carbon dioxide, total [Moles /volume] in Central venous bloodOrdered By: Gerda Wilks on 01-30-2025 CO2 [Moles/Vol] 23.1 mmol/L 21.0-32.0 [facility] Chloride assayOrdered By: Go Wilks on 01-30-2025 Chloride [Moles/Vol] 109 mmol/L High 98-108 [facility] Erythrocyte distribution wid th ratioOrdered By: Gerda Wilks on 01-30-2025 Erythrocyte distribution width (RBC) [Ratio] 16.3 % High 11.6-14.6 [facility] Erythrocyte distribution wid th standard deviationOrdered By: Gerda Wilks on 01-30-2025 Erythrocyte distribution width (RBC) [Ratio] 55.4 fl High 35.1-43.9 [facility] Glomerular filtration rate ( GFR) estimation/1.73 sq m using serum, plasma, or whole bOrdered By: Gerda Wilks on 01-30-2025 GFR/1.73 sq M.predicted among non-blacks MDRD (S/P/Bld) [Vol rate/Area] 71 mL/min/{1.73_m2} >60 [facility] Comment on above: mL/min/1.73m2 CKD-EP I Creatinine Equation (2020) Hematocrit Auto (Bld) [Volum e fraction]Ordered By: Gerda Wilks on 01-30-2025 Hematocrit (Bld) [Volume fraction] 36.9 % Low 37-47 [facility] Hemoglobin measurementOrdere d By: Gerda Wilks on 01-30-2025 Hemoglobin (Bld) [Mass/Vol] 11.9 g/dL Low 12.0-15.0 [facility] L503.7505on 01-30-2025 Natriuretic peptide B (Bld) [Mass/Vol] 242 pg/mL Normal <=1800 [facility] Comment on above: Order Comment: 128 Result Comment: Hear t Failure Unlikely: < 300 pg/mL Heart Failure Likely < 50 Years: > 450 pg/mL 50-75 Years: > 900 pg/mL >75 Years: > 1800 pg/mL Performed By: #### L 100.0500, L500.2500, L503.7505 #### [facility] [address] [place], [address] MCV (mean corpuscular volume ) determinationOrdered By: Gerda Wilks on 01-30-2025 MCV (RBC) [Entitic vol] 92.3 fL 81-99 [facility] Mean corpuscular hemoglobin (MCH) determinationOrdered By: Gerda Wilks on 01-30-2025 MCH (RBC) [Entitic mass] 29.8 pg 27.0-32.0 [facility] Mean corpuscular hemoglobin concentration (MCHC) determinationOrdered By: Gerda Wilks on 01-30-2025 MCHC (RBC) [Mass/Vol] 32.2 g/dL 32-36 [facility] Mean platelet volume determi nationOrdered By: Gerda Wilks on 01-30-2025 Platelet mean volume (Bld) [Entitic vol] 11.2 fL 6.2-12.0 [facility] Natriuretic peptide.B prohor axel N-Terminal [Mass/volume] in Serum or PlasmaOrdered By: Gerda Wilks on 01-30-2025 Natriuretic peptide.B prohormone N-Terminal [Mass/Vol] 242 pg/mL <1800 [facility] Comment on above: Heart Failure Unlike ly: < 300 pg/mLHeart Failure Likely< 50 Years: > 450 pg/mL50-75 Years: > 900 pg/mL>75 Years: > 1800 pg/mL Platelet countOrdered By: Go Wilks on 01-30-2025 Platelets (Bld) [#/Vol] 242 10*3/uL 150-450 [facility] Potassium measurement (mass/ volume)Ordered By: Gerda Wilks on 01-30-2025 Potassium (Unsp spec) [Mass/Vol] 4.0 mmol/L 3.3-5.1 [facility] RBC Auto (Bld) [#/Vol]Ordere d By: Gerda Wilks on 01-30-2025 RBC (Bld) [#/Vol] 4.00 10*6/uL Low 4.2-5.4 [facility] Serum creatinine measurement (mass/volume)Ordered By: Gerda Wilks on 01-30-2025 Creatinine [Mass/Vol] 0.85 mg/dL 0.70-1.20 [facility] Serum glucose measurement (m ass/volume)Ordered By: Gerda Wilks on 01-30-2025 Glucose [Mass/Vol] 112 mg/dL High 70-99 [facility] Serum or plasma calcium chay urement (mass/volume)Ordered By: Gerda Wilks on 01-30-2025 Calcium [Mass/Vol] 9.2 mg/dL 7.6-11.0 [facility] Serum or plasma urea nitroge n measurement (mass/volume)Ordered By: Gerda Wilks on 01-30-2025 Urea nitrogen [Mass/Vol] 20 mg/dL High 4- [facility] Sodium levelOrdered By: Melani Wilks on 01-30-2025 Sodium [Moles/Vol] 143 mmol/L 133-145 [facility] White blood cell (WBC) count Ordered By: Gerda Wilks on 01-30-2025 WBC (Bld) [#/Vol] 6.8 10*3/uL 4.4-11.0 [facility] Basic Metabolic Profile (BMP )on 01-29-2025 BUN Normal 4- [facility] Comment on above: Order Comment: 510-1 Result Comment: RENETTA ENT REFUSED Performed By: #### L 500.2500, L100.0500 #### [facility] [address] [place], [address] BUN/CRE Normal 10-20 [facility] Comment on above: Order Comment: 510-1 Result Comment: RENETTA ENT REFUSED Performed By: #### L 500.2500, L100.0500 #### [facility] [address] [place], [address] Calcium Normal 7.6-11.0 [facility] Comment on above: Order Comment: 510-1 Result Comment: RENETTA ENT REFUSED Performed By: #### L 500.2500, L100.0500 #### [facility] [address] [place], [address] CL Normal 98-108 [facility] Comment on above: Order Comment: 510-1 Result Comment: RENETTA ENT REFUSED Performed By: #### L 500.2500, L100.0500 #### [facility] [address] [place], [address] CO2 Normal 21.0-32.0 [facility] Comment on above: Order Comment: Result Comment: RENETTA ENT REFUSED Performed By: #### L 500.2500, L100.0500 #### [facility] [address] [place], [address] CREAT,SERUM Normal 0.70-1.20 [facility] Comment on above: Order Comment: Result Comment: RENETTA ENT REFUSED Performed By: #### L 500.2500, L100.0500 #### [facility] [address] [place], [address] eGFR Normal >60 [facility] Comment on above: Order Comment: Result Comment: RENETTA ENT REFUSED Performed By: #### L 500.2500, L100.0500 #### [facility] [address] [place], [address] GAP Normal 5-15 [facility] Comment on above: Order Comment: Result Comment: RENETTA ENT REFUSED Performed By: #### L 500.2500, L100.0500 #### [facility] [address] [place], [address] GLU Normal 70-99 [facility] Comment on above: Order Comment: Result Comment: RENETTA ENT REFUSED Performed By: #### L 500.2500, L100.0500 #### [facility] [address] [place], [address] Potassium Normal 3.3-5.1 [facility] Comment on above: Order Comment: Result Comment: RENETTA ENT REFUSED Performed By: #### L 500.2500, L100.0500 #### [facility] [address] [place], [address] Basic Metabolic Profile (BMP) Normal 133-145 [facility] Comment on above: Order Comment: Result Comment: RENETTA ENT REFUSED Performed By: #### L 500.2500, L100.0500 #### [facility] [address] [place], [address] CBC-Complete Blood Cnt No Di ffon 01-29-2025 HCT Normal 37-47 [facility] Comment on above: Order Comment: - Result Comment: RENETTA ENT REFUSED Performed By: #### L 500.2500, L100.0500 #### [facility] [address] [place], [address] HGB Normal 12.0-15.0 [facility] Comment on above: Order Comment: Result Comment: RENETTA ENT REFUSED Performed By: #### L 500.2500, L100.0500 #### [facility] [address] [place], [address] MCH Normal 27.0-32.0 [facility] Comment on above: Order Comment: Result Comment: RENETTA ENT REFUSED Performed By: #### L 500.2500, L100.0500 #### [facility] [address] [place], [address] MCHC Normal 32-36 [facility] Comment on above: Order Comment: Result Comment: RENETTA ENT REFUSED Performed By: #### L 500.2500, L100.0500 #### [facility] [address] [place], [address] MCV Normal 81-99 [facility] Comment on above: Order Comment: - Result Comment: RENETTA ENT REFUSED Performed By: #### L 500.2500, L100.0500 #### [facility] [address] [place], [address] PLT Normal 150-450 [facility] Comment on above: Order Comment: - Result Comment: RENETTA ENT REFUSED Performed By: #### L 500.2500, L100.0500 #### [facility] [address] [place], [address] RBC Normal 4.2-5.4 [facility] Comment on above: Order Comment: Result Comment: RENETTA ENT REFUSED Performed By: #### L 500.2500, L100.0500 #### [facility] [address] [place], [address] RDW CV Normal 11.6-14.6 [facility] Comment on above: Order Comment: Result Comment: RENETTA ENT REFUSED Performed By: #### L 500.2500, L100.0500 #### [facility] [address] [place], [address] RDW SD Normal 35.1-43.9 [facility] Comment on above: Order Comment: Result Comment: RENETTA ENT REFUSED Performed By: #### L 500.2500, L100.0500 #### [facility] [address] [place], [address] WBC Normal 4.4-11.0 [facility] Comment on above: Order Comment: Result Comment: RENETTA ENT REFUSED Performed By: #### L 500.2500, L100.0500 #### [facility] [address] [place], [address] Basic Metabolic Profile (BMP )on 08-15-2024 BUN/CRE 20.8 RATIO High 06-15 [facility] Comment on above: Order Comment: 128 Performed By: #### L 100.0500, L500.2500, L503.7505 #### [facility] [address] [place], [address] CA,Total 8.6 mg/dL Normal 8.5-10.1 [facility] Comment on above: Order Comment: 128 Performed By: #### L 100.0500, L500.2500, L503.7505 #### [facility] [address] [place], [address] Chloride [Moles/Vol] 111 mmol/L High 98-107 [facility] Comment on above: Order Comment: 128 Performed By: #### L 100.0500, L500.2500, L503.7505 #### [facility] [address] [place], [address] CO2 [Moles/Vol] 26.0 mmol/L Normal 21.0-32.0 [facility] Comment on above: Order Comment: 128 Performed By: #### L 100.0500, L500.2500, L503.7505 #### [facility] [address] [place], [address] Creatinine [Mass/Vol] 1.01 mg/dL Normal 0.55-1.02 [facility] Comment on above: Order Comment: 128 Result Comment: The validity of the calculated GFR GFRAA in patients over 70 years has not been determined. Clinical correlation is essential. Performed By: #### L 100.0500, L500.2500, L503.7505 #### [facility] [address] [place], [address] EST GFR - AA 68 mL/min Normal >60 [facility] Comment on above: Order Comment: 128 Result Comment: Afri can [place] GFR Calc Performed By: #### L 100.0500, L500.2500, L503.7505 #### [facility] [address] [place], [address] GAP 5 Normal 5-15 [facility] Comment on above: Order Comment: 128 Performed By: #### L 100.0500, L500.2500, L503.7505 #### [facility] [address] [place], [address] GFR/1.73 sq M.predicted among non-blacks MDRD (S/P/Bld) [Vol rate/Area] 56 mL/min/{1.73_m2} Low >60 [facility] Comment on above: Order Comment: 128 Result Comment: Non- GFR Calc Performed By: #### L 100.0500, L500.2500, L503.7505 #### [facility] [address] [place], [address] Glucose [Mass/Vol] 108 mg/dL High 74-106 [facility] Comment on above: Order Comment: 128 Result Comment: Fast ing Glucose result from 100 to 125 mg/dL suggests IMPAIRED HOMEOSTASIS per A.D.A. criteria. Performed By: #### L 100.0500, L500.2500, L503.7505 #### [facility] [address] [place], [address] Potassium [Moles/Vol] 3.7 mmol/L Normal 3.5-5.1 [facility] Comment on above: Order Comment: 128 Performed By: #### L 100.0500, L500.2500, L503.7505 #### [facility] [address] [place], [address] Sodium [Moles/Vol] 142 mmol/L Normal 136-145 [facility] Comment on above: Order Comment: 128 Performed By: #### L 100.0500, L500.2500, L503.7505 #### [facility] [address] [place], [address] Urea nitrogen [Mass/Vol] 21 mg/dL High 7-18 [facility] Comment on above: Order Comment: 128 Performed By: #### L 100.0500, L500.2500, L503.7505 #### [facility] [address] [place], [address] Magnesiumon 08-15-2024 Magnesium [Mass/Vol] 2.1 mg/dL Normal 1.6-2.6 [facility] Comment on above: Order Comment: 128 Performed By: #### L 100.0500, L500.2500, L503.7505 #### [facility] [address] [place], [address] Emergency Department Summary on 07-09-2024 Emergency Department Summary [facility] Medical Records Department [address] [place] [address] Emergency Department Summary 07/09/24 MR#: [id number] Acct: [id number] Name: KAMILAH MCKEON Rep #: [id number] : 1945 79 From: Eduardo Gilmore MD [...] moist muco (more content not included)... Normal [facility] Venous Duplex Imag/Limited/U nion 07-09-2024 Venous Duplex Imag/Limited/Uni [facility] Imaging Services [address], [place] [address] Venous Duplex Imag/Limited/Uni MR#: [id number] Acct: [id number] Name: KAMILAH MCKEON Rep #: [id number] : 1945 F 79 From: Tha Washington MD PCP: Gerda Wilks MD Status: REG ER Study: Venous Duplex Imag/Limited/Uni Date of Exam: 09/08/23 Exam# [id number] Ordering Dr: Eduardo Gilmore MD -[id number] STUDY: VENOUS DOPPLER ULTRASOUND - LEFT [...] Dr. Eduardo Gilmore MD; Gerda Wilks MD Marketing Writer: Signed Normal [facility] CBC W/Diff, Automatedon 10-2 Absolute Lymph 1.58 X10 3/uL Normal 0.83-4.51 [facility] Comment on above: Order Comment: 128 Performed By: #### L 100.0500, L500.2500, L503.7505 #### [facility] [address] [place], [address] Absolute Neut 4.7 X10 3/uL Normal 2.0-7.7 [facility] Comment on above: Order Comment: 128 Performed By: #### L 100.0500, L500.2500, L503.7505 #### [facility] [address] [place], [address] Basophils/100 WBC (Bld) 0.8 % Normal 0-1 [facility] Comment on above: Order Comment: 128 Performed By: #### L 100.0500, L500.2500, L503.7505 #### [facility] [address] [place], [address] Eosinophils/100 WBC (Bld) 4.6 % Normal 0-5 [facility] Comment on above: Order Comment: 128 Performed By: #### L 100.0500, L500.2500, L503.7505 #### [facility] [address] [place], [address] Erythrocyte distribution width (RBC) [Ratio] 16.0 % High 11.6-14.6 [facility] Comment on above: Order Comment: 128 Performed By: #### L 100.0500, L500.2500, L503.7505 #### [facility] [address] [place], [address] Hematocrit (Bld) [Volume fraction] 37.9 % Normal 37-47 [facility] Comment on above: Order Comment: 128 Performed By: #### L 100.0500, L500.2500, L503.7505 #### [facility] [address] [place], [address] Hemoglobin (Bld) [Mass/Vol] 12.2 g/dL Normal 12.0-15.0 [facility] Comment on above: Order Comment: 128 Performed By: #### L 100.0500, L500.2500, L503.7505 #### [facility] [address] [place], [address] IG% 0.400 Normal 0.0-0.9 [facility] Comment on above: Order Comment: 128 Result Comment: IG% - Immature Granulocytes (promyelocytes, myelocytes and metamyelocytes) > 1% indicates that a LEFT SHIFT is Present. Performed By: #### L 100.0500, L500.2500, L503.7505 #### [facility] [address] [place], [address] Lymphocytes/100 WBC (Bld) 20.9 % Normal 19-41 [facility] Comment on above: Order Comment: 128 Performed By: #### L 100.0500, L500.2500, L503.7505 #### [facility] [address] [place], [address] MCH (RBC) [Entitic mass] 29.6 pg Normal 27.0-32.0 [facility] Comment on above: Order Comment: 128 Performed By: #### L 100.0500, L500.2500, L503.7505 #### [facility] [address] [place], [address] MCHC (RBC) [Mass/Vol] 32.2 g/dL Normal 32-36 [facility] Comment on above: Order Comment: 128 Performed By: #### L 100.0500, L500.2500, L503.7505 #### [facility] [address] [place], [address] MCV (RBC) [Entitic vol] 92.0 fL Normal 81-99 [facility] Comment on above: Order Comment: 128 Performed By: #### L 100.0500, L500.2500, L503.7505 #### [facility] [address] [place], [address] Monocytes/100 WBC (Bld) 10.7 % High 0-10 [facility] Comment on above: Order Comment: 128 Performed By: #### L 100.0500, L500.2500, L503.7505 #### [facility] [address] [place], [address] Neutrophils/100 WBC (Bld) 62.6 % Normal 47-70 [facility] Comment on above: Order Comment: 128 Performed By: #### L 100.0500, L500.2500, L503.7505 #### [facility] [address] [place], [address] Nucleated RBC (Bld) [#/Vol] 0 10*3/uL Normal 0-5 [facility] Comment on above: Order Comment: 128 Performed By: #### L 100.0500, L500.2500, L503.7505 #### [facility] [address] [place], [address] Platelet mean volume (Bld) [Entitic vol] 10.8 fL Normal 6.2-12.0 [facility] Comment on above: Order Comment: 128 Performed By: #### L 100.0500, L500.2500, L503.7505 #### [facility] [address] [place], [address] Platelets (Bld) [#/Vol] 252 10*3/uL Normal 150-450 [facility] Comment on above: Order Comment: 128 Performed By: #### L 100.0500, L500.2500, L503.7505 #### [facility] [address] [place], [address] RBC (Bld) [#/Vol] 4.12 10*6/uL Low 4.2-5.4 [facility] Comment on above: Order Comment: 128 Performed By: #### L 100.0500, L500.2500, L503.7505 #### [facility] [address] [place], [address] RDW SD 54.4 fl High 35.1-43.9 [facility] Comment on above: Order Comment: 128 Performed By: #### L 100.0500, L500.2500, L503.7505 #### [facility] [address] [place], [address] WBC (Bld) [#/Vol] 7.6 10*3/uL Normal 4.4-11.0 [facility] Comment on above: Order Comment: 128 Performed By: #### L 100.0500, L500.2500, L503.7505 #### [facility] [address] [place], [address] Comprehensive Metabolic Prof ilon 06-16-2024 Albumin [Mass/Vol] 3.3 g/dL Normal 3.2-5.0 [facility] Comment on above: Order Comment: 128 Performed By: #### L 100.0500, L500.2500, L503.7505 #### [facility] [address] [place], [address] Albumin/Globulin [Mass ratio] 0.7 {ratio} Low 0.9-2.4 [facility] Comment on above: Order Comment: 128 Performed By: #### L 100.0500, L500.2500, L503.7505 #### [facility] [address] [place], [address] ALK P 64 U/L Normal 45-117 [facility] Comment on above: Order Comment: 128 Performed By: #### L 100.0500, L500.2500, L503.7505 #### [facility] [address] [place], [address] ALT [Catalytic activity/Vol] 15 U/L Normal 13-56 [facility] Comment on above: Order Comment: 128 Performed By: #### L 100.0500, L500.2500, L503.7505 #### [facility] [address] [place], [address] AST [Catalytic activity/Vol] 13 U/L Low 15-37 [facility] Comment on above: Order Comment: 128 Performed By: #### L 100.0500, L500.2500, L503.7505 #### [facility] [address] [place], [address] Bilirubin [Mass/Vol] 0.30 mg/dL Normal 0.20-1.00 [facility] Comment on above: Order Comment: 128 Result Comment: For patients on eltrombopag therapy, use of Dimension [place] TBIL is not recommended. Performed By: #### L 100.0500, L500.2500, L503.7505 #### [facility] [address] [place], [address] BUN/CRE 22.8 RATIO High 10-20 [facility] Comment on above: Order Comment: 128 Performed By: #### L 100.0500, L500.2500, L503.7505 #### [facility] [address] [place], [address] CA,Total 9.2 mg/dL Normal 8.5-10.1 [facility] Comment on above: Order Comment: 128 Performed By: #### L 100.0500, L500.2500, L503.7505 #### [facility] [address] [place], [address] Chloride [Moles/Vol] 108 mmol/L High 98-107 [facility] Comment on above: Order Comment: 128 Performed By: #### L 100.0500, L500.2500, L503.7505 #### [facility] [address] [place], [address] CO2 [Moles/Vol] 26.0 mmol/L Normal 21.0-32.0 [facility] Comment on above: Order Comment: 128 Performed By: #### L 100.0500, L500.2500, L503.7505 #### [facility] [address] [place], [address] Creatinine [Mass/Vol] 0.97 mg/dL Normal 0.55-1.02 [facility] Comment on above: Order Comment: 128 Result Comment: The validity of the calculated GFR GFRAA in patients over 70 years has not been determined. Clinical correlation is essential. Performed By: #### L 100.0500, L500.2500, L503.7505 #### [facility] [address] [place], [address] EST GFR - AA 72 mL/min Normal >60 [facility] Comment on above: Order Comment: 128 Result Comment: Afri can [place] GFR Calc Performed By: #### L 100.0500, L500.2500, L503.7505 #### [facility] [address] [place], [address] GAP 8 Normal 5-15 [facility] Comment on above: Order Comment: 128 Performed By: #### L 100.0500, L500.2500, L503.7505 #### [facility] [address] [place], [address] GFR/1.73 sq M.predicted among non-blacks MDRD (S/P/Bld) [Vol rate/Area] 59 mL/min/{1.73_m2} Low >60 [facility] Comment on above: Order Comment: 128 Result Comment: Non- GFR Calc Performed By: #### L 100.0500, L500.2500, L503.7505 #### [facility] [address] [place], [address] Globulin (S) [Mass/Vol] 4.6 g/dL High 2.2-4.2 [facility] Comment on above: Order Comment: 128 Performed By: #### L 100.0500, L500.2500, L503.7505 #### [facility] [address] [place], [address] Glucose [Mass/Vol] 105 mg/dL Normal 74-106 [facility] Comment on above: Order Comment: 128 Result Comment: Fast ing Glucose result from 100 to 125 mg/dL suggests IMPAIRED HOMEOSTASIS per A.D.A. criteria. Performed By: #### L 100.0500, L500.2500, L503.7505 #### [facility] [address] [place], [address] Potassium [Moles/Vol] 4.2 mmol/L Normal 3.5-5.1 [facility] Comment on above: Order Comment: 128 Performed By: #### L 100.0500, L500.2500, L503.7505 #### [facility] [address] [place], [address] Sodium [Moles/Vol] 142 mmol/L Normal 136-145 [facility] Comment on above: Order Comment: 128 Performed By: #### L 100.0500, L500.2500, L503.7505 #### [facility] [address] [place], [address] T PROT 7.9 g/dL Normal 6.4-8.2 [facility] Comment on above: Order Comment: 128 Performed By: #### L 100.0500, L500.2500, L503.7505 #### [facility] [address] [place], [address] Urea nitrogen [Mass/Vol] 22 mg/dL High 7-18 [facility] Comment on above: Order Comment: 128 Performed By: #### L 100.0500, L500.2500, L503.7505 #### [facility] [address] [place], [address] Hemoglobin A1con 06-16-2024 HbA1c (Bld) [Mass fraction] 6.1 % High 3.8-5.6 [facility] Comment on above: Order Comment: 128 Result Comment: Norm al < 5.7 % Prediabetic 5.7 - 6.4 % Diabetic >or= 6.5 % Please note range changes. Performed By: #### L 100.0500, L500.2500, L503.7505 #### [facility] [address] [place], [address] Magnesiumon 06-16-2024 Magnesium [Mass/Vol] 2.5 mg/dL Normal 1.6-2.6 [facility] Comment on above: Order Comment: 128 Performed By: #### L 100.0500, L500.2500, L503.7505 #### [facility] [address] [place], [address] Thyroid Stim Hormone (TSH)on 06-16-2024 TSH 2.550 uIU/mL Normal 0.358-3.740 [facility] Comment on above: Order Comment: 128 Performed By: #### L 100.0500, L500.2500, L503.7505 #### [facility] [address] [place], [address] Vitamin B12on 06-16-2024 Cobalamin (Vitamin B12) [Mass/Vol] 546 pg/mL Normal 211-911 [facility] Comment on above: Order Comment: 128 Performed By: #### L 100.0500, L500.2500, L503.7505 #### [facility] [address] [place], [address] Vitamin D,25 Hydroxyon 06-16 Vitamin D 25-OH 43.9 ng/mL Normal [facility] Comment on above: Order Comment: 128 Result Comment: Paz min D 25(OH) Status Range Deficiency <20 ng/mL (50nmol/L) Insufficiency 20 - 30 ng/mL (50 - 75 nmol/L) Sufficiency 30 - 100 ng/mL (75 - 250 nmol/L) Toxicity >100 ng/mL (>250 nmol/L) Performed By: #### L 100.0500, L500.2500, L503.7505 #### [facility] [address] [place], [address] CBC-Complete Blood Cnt No Di ffon 05-21-2024 Erythrocyte distribution width (RBC) [Ratio] 16.2 % High 11.6-14.6 [facility] Comment on above: Order Comment: 128 Performed By: #### L 100.0500, L500.2500, L503.7505 #### [facility] [address] [place], [address] Hematocrit (Bld) [Volume fraction] 38.4 % Normal 37-47 [facility] Comment on above: Order Comment: 128 Performed By: #### L 100.0500, L500.2500, L503.7505 #### [facility] [address] [place], [address] Hemoglobin (Bld) [Mass/Vol] 11.7 g/dL Low 12.0-15.0 [facility] Comment on above: Order Comment: 128 Performed By: #### L 100.0500, L500.2500, L503.7505 #### [facility] [address] [place], [address] MCH (RBC) [Entitic mass] 28.3 pg Normal 27.0-32.0 [facility] Comment on above: Order Comment: 128 Performed By: #### L 100.0500, L500.2500, L503.7505 #### [facility] [address] [place], [address] MCHC (RBC) [Mass/Vol] 30.5 g/dL Low 32-36 [facility] Comment on above: Order Comment: 128 Performed By: #### L 100.0500, L500.2500, L503.7505 #### [facility] [address] [place], [address] MCV (RBC) [Entitic vol] 93.0 fL Normal 81-99 [facility] Comment on above: Order Comment: 128 Performed By: #### L 100.0500, L500.2500, L503.7505 #### [facility] [address] [place], [address] Platelet mean volume (Bld) [Entitic vol] 10.5 fL Normal 6.2-12.0 [facility] Comment on above: Order Comment: 128 Performed By: #### L 100.0500, L500.2500, L503.7505 #### [facility] [address] [place], [address] Platelets (Bld) [#/Vol] 267 10*3/uL Normal 150-450 [facility] Comment on above: Order Comment: 128 Performed By: #### L 100.0500, L500.2500, L503.7505 #### [facility] [address] [place], [address] RBC (Bld) [#/Vol] 4.13 10*6/uL Low 4.2-5.4 [facility] Comment on above: Order Comment: 128 Performed By: #### L 100.0500, L500.2500, L503.7505 #### [facility] [address] [place], [address] RDW SD 55.2 fl High 35.1-43.9 [facility] Comment on above: Order Comment: 128 Performed By: #### L 100.0500, L500.2500, L503.7505 #### [facility] [address] [place], [address] WBC (Bld) [#/Vol] 6.9 10*3/uL Normal 4.4-11.0 [facility] Comment on above: Order Comment: 128 Performed By: #### L 100.0500, L500.2500, L503.7505 #### [facility] [address] [place], [address] CRPon 05-21-2024 C-REACTIVE PROT 11.80 mg/L High 0.0-3.0 [facility] Comment on above: Order Comment: 128 Result Comment: C-Re active Protein (CRP) provides useful information for the diagnosis, therapy and monitoring of inflammatory processes and associated diseases. For the evaluation of Relative Risk for Cardiovascular Disease, a High Sensitivity CRP (HSCRP) should be ordered. Performed By: #### L 100.0500, L500.2500, L503.7505 #### [facility] [address] [place], [address] Uric Acidon 05-21-2024 URIC 4.1 mg/dL Normal 2.6-6.0 [facility] Comment on above: Order Comment: 128 Result Comment: The drugs N-Acetylcysteine and Metamizole may falsely depress this assay. Performed By: #### L 100.0500, L500.2500, L503.7505 #### [facility] [address] [place], [address] Basic Metabolic Profile (BMP )on 05-16-2024 BUN/CRE 28.8 RATIO High 10-20 [facility] Comment on above: Order Comment: 510-1 Performed By: #### L 500.2500, L100.0500 #### [facility] [address] [place], [address] CA,Total 9.4 mg/dL Normal 8.5-10.1 [facility] Comment on above: Order Comment: 510-1 Performed By: #### L 500.2500, L100.0500 #### [facility] [address] [place], [address] Chloride [Moles/Vol] 109 mmol/L High 98-107 [facility] Comment on above: Order Comment: 510-1 Performed By: #### L 500.2500, L100.0500 #### [facility] [address] [place], [address] CO2 [Moles/Vol] 23.0 mmol/L Normal 21.0-32.0 [facility] Comment on above: Order Comment: 510-1 Performed By: #### L 500.2500, L100.0500 #### [facility] [address] [place], [address] Creatinine [Mass/Vol] 0.90 mg/dL Normal 0.55-1.02 [facility] Comment on above: Order Comment: 510-1 Result Comment: The validity of the calculated GFR GFRAA in patients over 70 years has not been determined. Clinical correlation is essential. Performed By: #### L 500.2500, L100.0500 #### [facility] [address] [place], [address] EST GFR - AA 78 mL/min Normal >60 [facility] Comment on above: Order Comment: 510- Result Comment: Afri can [place] GFR Calc Performed By: #### L 500.2500, L100.0500 #### [facility] [address] [place], [address] GAP 7 Normal 5-15 [facility] Comment on above: Order Comment: 510-1 Performed By: #### L 500.2500, L100.0500 #### [facility] [address] [place], [address] GFR/1.73 sq M.predicted among non-blacks MDRD (S/P/Bld) [Vol rate/Area] 64 mL/min/{1.73_m2} Normal >60 [facility] Comment on above: Order Comment: 510- Result Comment: Non- GFR Calc Performed By: #### L 500.2500, L100.0500 #### [facility] [address] [place], [address] Glucose [Mass/Vol] 111 mg/dL High 74-106 [facility] Comment on above: Order Comment: 510- Result Comment: Fast ing Glucose result from 100 to 125 mg/dL suggests IMPAIRED HOMEOSTASIS per A.D.A. criteria. Performed By: #### L 500.2500, L100.0500 #### [facility] [address] [place], [address] Potassium [Moles/Vol] 3.9 mmol/L Normal 3.5-5.1 [facility] Comment on above: Order Comment: 510-1 Performed By: #### L 500.2500, L100.0500 #### [facility] [address] [place], [address] Sodium [Moles/Vol] 139 mmol/L Normal 136-145 [facility] Comment on above: Order Comment: 510-1 Performed By: #### L 500.2500, L100.0500 #### [facility] [address] [place], [address] Urea nitrogen [Mass/Vol] 26 mg/dL High 7-18 [facility] Comment on above: Order Comment: 510-1 Performed By: #### L 500.2500, L100.0500 #### [facility] [address] [place], [address] CBC-Complete Blood Cnt No Di ffon 05-16-2024 Erythrocyte distribution width (RBC) [Ratio] 16.4 % High 11.6-14.6 [facility] Comment on above: Order Comment: 510-1 Performed By: #### L 500.2500, L100.0500 #### [facility] [address] [place], [address] Hematocrit (Bld) [Volume fraction] 39.2 % Normal 37-47 [facility] Comment on above: Order Comment: 510-1 Performed By: #### L 500.2500, L100.0500 #### [facility] [address] [place], [address] Hemoglobin (Bld) [Mass/Vol] 12.3 g/dL Normal 12.0-15.0 [facility] Comment on above: Order Comment: 510-1 Performed By: #### L 500.2500, L100.0500 #### [facility] [address] [place], [address] MCH (RBC) [Entitic mass] 28.9 pg Normal 27.0-32.0 [facility] Comment on above: Order Comment: 510-1 Performed By: #### L 500.2500, L100.0500 #### [facility] [address] [place], [address] MCHC (RBC) [Mass/Vol] 31.4 g/dL Low 32-36 [facility] Comment on above: Order Comment: 510-1 Performed By: #### L 500.2500, L100.0500 #### [facility] [address] [place], [address] MCV (RBC) [Entitic vol] 92.2 fL Normal 81-99 [facility] Comment on above: Order Comment: 510-1 Performed By: #### L 500.2500, L100.0500 #### [facility] [address] [place], [address] Platelet mean volume (Bld) [Entitic vol] 10.7 fL Normal 6.2-12.0 [facility] Comment on above: Order Comment: 510-1 Performed By: #### L 500.2500, L100.0500 #### [facility] [address] [place], [address] Platelets (Bld) [#/Vol] 245 10*3/uL Normal 150-450 [facility] Comment on above: Order Comment: 510-1 Performed By: #### L 500.2500, L100.0500 #### [facility] [address] [place], [address] RBC (Bld) [#/Vol] 4.25 10*6/uL Normal 4.2-5.4 [facility] Comment on above: Order Comment: 510-1 Performed By: #### L 500.2500, L100.0500 #### [facility] [address] [place], [address] RDW SD 54.8 fl High 35.1-43.9 [facility] Comment on above: Order Comment: 510-1 Performed By: #### L 500.2500, L100.0500 #### [facility] [address] [place], [address] WBC (Bld) [#/Vol] 7.7 10*3/uL Normal 4.4-11.0 [facility] Comment on above: Order Comment: 510-1 Performed By: #### L 500.2500, L100.0500 #### [facility] [address] [place], [address] Basic Metabolic Profile (BMP )on 04-18-2024 BUN/CRE 24.8 RATIO High 10-20 [facility] Comment on above: Order Comment: 510.1 Performed By: #### L 100.0500, L500.2500 #### [facility] [address] [place], [address] CA,Total 9.0 mg/dL Normal 8.5-10.1 [facility] Comment on above: Order Comment: 510.1 Performed By: #### L 100.0500, L500.2500 #### [facility] [address] [place], [address] Chloride [Moles/Vol] 107 mmol/L Normal 98-107 [facility] Comment on above: Order Comment: 510.1 Performed By: #### L 100.0500, L500.2500 #### [facility] [address] [place], [address] CO2 [Moles/Vol] 26.0 mmol/L Normal 21.0-32.0 [facility] Comment on above: Order Comment: 510.1 Performed By: #### L 100.0500, L500.2500 #### [facility] [address] [place], [address] Creatinine [Mass/Vol] 0.89 mg/dL Normal 0.55-1.02 [facility] Comment on above: Order Comment: 510.1 Result Comment: The validity of the calculated GFR GFRAA in patients over 70 years has not been determined. Clinical correlation is essential. Performed By: #### L 100.0500, L500.2500 #### [facility] [address] [place], [address] EST GFR - AA 79 mL/min Normal >60 [facility] Comment on above: Order Comment: 510.1 Result Comment: Afri can [place] GFR Calc Performed By: #### L 100.0500, L500.2500 #### [facility] [address] [place], [address] GAP 7 Normal 5-15 [facility] Comment on above: Order Comment: 510.1 Performed By: #### L 100.0500, L500.2500 #### [facility] [address] [place], [address] GFR/1.73 sq M.predicted among non-blacks MDRD (S/P/Bld) [Vol rate/Area] 66 mL/min/{1.73_m2} Normal >60 [facility] Comment on above: Order Comment: 510.1 Result Comment: Non- GFR Calc Performed By: #### L 100.0500, L500.2500 #### [facility] [address] [place], [address] Glucose [Mass/Vol] 122 mg/dL High 74-106 [facility] Comment on above: Order Comment: 510.1 Result Comment: Fast ing Glucose result from 100 to 125 mg/dL suggests IMPAIRED HOMEOSTASIS per A.D.A. criteria. Performed By: #### L 100.0500, L500.2500 #### [facility] [address] [place], [address] Potassium [Moles/Vol] 3.7 mmol/L Normal 3.5-5.1 [facility] Comment on above: Order Comment: 510.1 Performed By: #### L 100.0500, L500.2500 #### [facility] [address] [place], [address] Sodium [Moles/Vol] 140 mmol/L Normal 136-145 [facility] Comment on above: Order Comment: 510.1 Performed By: #### L 100.0500, L500.2500 #### [facility] [address] [place], [address] Urea nitrogen [Mass/Vol] 22 mg/dL High 7-18 [facility] Comment on above: Order Comment: 510.1 Performed By: #### L 100.0500, L500.2500 #### [facility] [address] [place], [address] CBC-Complete Blood Cnt No Di ffon 04-18-2024 Erythrocyte distribution width (RBC) [Ratio] 15.6 % High 11.6-14.6 [facility] Comment on above: Order Comment: 510.1 Performed By: #### L 100.0500, L500.2500 #### [facility] [address] [place], [address] Hematocrit (Bld) [Volume fraction] 37.4 % Normal 37-47 [facility] Comment on above: Order Comment: 510.1 Performed By: #### L 100.0500, L500.2500 #### [facility] [address] [place], [address] Hemoglobin (Bld) [Mass/Vol] 11.8 g/dL Low 12.0-15.0 [facility] Comment on above: Order Comment: 510.1 Performed By: #### L 100.0500, L500.2500 #### [facility] [address] [place], [address] MCH (RBC) [Entitic mass] 28.7 pg Normal 27.0-32.0 [facility] Comment on above: Order Comment: 510.1 Performed By: #### L 100.0500, L500.2500 #### [facility] [address] [place], [address] MCHC (RBC) [Mass/Vol] 31.6 g/dL Low 32-36 [facility] Comment on above: Order Comment: 510.1 Performed By: #### L 100.0500, L500.2500 #### [facility] [address] [place], [address] MCV (RBC) [Entitic vol] 91.0 fL Normal 81-99 [facility] Comment on above: Order Comment: 510.1 Performed By: #### L 100.0500, L500.2500 #### [facility] [address] [place], [address] Platelet mean volume (Bld) [Entitic vol] 10.6 fL Normal 6.2-12.0 [facility] Comment on above: Order Comment: 510.1 Performed By: #### L 100.0500, L500.2500 #### [facility] [address] [place], [address] Platelets (Bld) [#/Vol] 266 10*3/uL Normal 150-450 [facility] Comment on above: Order Comment: 510.1 Performed By: #### L 100.0500, L500.2500 #### [facility] [address] [place], [address] RBC (Bld) [#/Vol] 4.11 10*6/uL Low 4.2-5.4 [facility] Comment on above: Order Comment: 510.1 Performed By: #### L 100.0500, L500.2500 #### [facility] [address] [place], [address] RDW SD 51.7 fl High 35.1-43.9 [facility] Comment on above: Order Comment: 510.1 Performed By: #### L 100.0500, L500.2500 #### [facility] [address] [place], [address] WBC (Bld) [#/Vol] 8.6 10*3/uL Normal 4.4-11.0 [facility] Comment on above: Order Comment: 510.1 Performed By: #### L 100.0500, L500.2500 #### [facility] [address] [place], [address] EMG(NEURO/NI)on 03-07-2024 Results can be seen in attached scanned documents. If you are a patient reviewing this test result, call the doctor who ordered the test with any questions. [facility] 12-03-2023 CNPN Telephone (NEADMN) ---- KAMILAH MCKEON ([id number]) 1945 F Date Time Provider Department 12/03/23 [facility] [place] During your visit today, we recorded the following information about you: Laz Martínez 12/03/2023 1:24 PM Signed Spoke to Sandra at [facility] 12/03/23. Xarelto to be held for 24 hours prior to EMG testing with approval from prescribing physician. Laz Perez ([employer]) Allergies As of Date: 12/03/2023 Noted Allergy [...] Encounter Status:Closed by LAZ MARTÍNEZ on 12/03/23 [facility] CNOVon 11-29-2023 CNOV Office Visit (ORMDNA) ---- KAMILAH MCKEON ([id number]) 1945 F Date Time Provider Department 11/29/23 10:30 AM ENEDINA CANCHOLA During your visit today, we recorded the following information about you: Enedina Canchola PA-C 11/29/2023 11:31 AM Signed Enedina Canchola PA-C Established Patient Department of Orthopaedics Orthopaedics [address] [place], [place] [id number] Dept: [phone] November 29, 2023 SUBJECTIVE: CHIEF COMPLAINT: Follow [...] and second digit. 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 Normal [facility] Basophil percentageOrdered B y: Gerda Wilks on 11-02-2023 Chloride [Moles/Vol] 108 mmol/L 98-107 [facility] Glucose [Mass/Vol] 92 mg/dL 74-106 [facility] Hemoglobin (Bld) [Mass/Vol] 11.2 g/dL 12.0-15.0 [facility] Potassium [Moles/Vol] 3.6 mmol/L 3.5-5.1 [facility] Sodium [Moles/Vol] 139 mmol/L 136-145 [facility] WBC (Bld) [#/Vol] 8.7 10*3/uL 4.4-11.0 [facility] Determination of erythrocyte mean corpuscular volume (MCV)Ordered By: Gerda Wilks on 11-02-2023 MCV (RBC) [Entitic vol] 94.1 fL 81-99 [facility] Erythrocyte distribution wid th ratioOrdered By: Gerda Wilks on 11-02-2023 Erythrocyte distribution width (RBC) [Ratio] 14.9 % 11.6-14.6 [facility] Erythrocyte distribution wid th standard deviationOrdered By: Gerdacarlos Wilks on 11-02-2023 Erythrocyte distribution width (RBC) [Entitic vol] 51.5 fL 35.1-43.9 [facility] Hematocrit Auto (Bld) [Volum e fraction]Ordered By: Gerda Wilks on 11-02-2023 Hematocrit (Bld) [Volume fraction] 36.5 % 37-47 [facility] Laboratory - Chemistry and C hemistry - challengeOrdered By: Gerda Wilks on 11-02-2023 CO2 [Moles/Vol] 24.0 mmol/L 21.0-32.0 [facility] Urea nitrogen/Creatinine [Mass ratio] 32.5 mg/mg 10-20 [facility] Laboratory - Hematology and Cell countsOrdered By: Gerda Wilks on 11-02-2023 MCH (RBC) [Entitic mass] 28.9 pg 27.0-32.0 [facility] MCHC (RBC) [Mass/Vol] 30.7 g/dL 32-36 [facility] Platelet mean volume (Bld) [Entitic vol] 10.6 fL 6.2-12.0 [facility] Platelets (Bld) [#/Vol] 277 10*3/uL 150-450 [facility] No Panel InformationOrdered By: Gerda Wilks on 11-02-2023 Estimated GFR (MDRD) Amer 70 mL/min >60 [facility] Comment on above: GFR Calc Estimated GFR (MDRD) Non-Af Amer 58 mL/min >60 [facility] Comment on above: Non- GFR Calc RBC Auto (Bld) [#/Vol]Ordere d By: eGrda Wilks on 11-02-2023 RBC (Bld) [#/Vol] 3.88 10*6/uL 4.2-5.4 [facility] Serum or plasma calcium chay urement (mass/volume)Ordered By: Gerda Wilks on 11-02-2023 Calcium [Mass/Vol] 8.2 mg/dL 8.5-10.1 [facility] Serum or plasma creatinine m easurement (mass/volume)Ordered By: Gerda Wilks on 11-02-2023 Creatinine [Mass/Vol] 0.98 mg/dL 0.55-1.02 [facility] Comment on above: The validity of the calculated GFR & GFRAA in patients over 70 years has not been determined. Clinical correlation is essential. Serum or plasma urea nitroge n measurement (mass/volume)Ordered By: Gerda Wilks on 11-02-2023 Urea nitrogen [Mass/Vol] 32 mg/dL 7-18 [facility] Thin prep Papanicolaou smear with manual screeningOrdered By: Gerda Wilks on 11-02-2023 Thin prep Papanicolaou smear with manual screening 7 5-15 [facility] Basophil percentageOrdered B y: Kurt Mari on 11-01-2023 Bilirubin [Mass/Vol] 0.30 mg/dL 0.20-1.00 [facility] Comment on above: For patients on eltr ombopag therapy, use of Dimension [place] TBIL is not recommended. Chloride [Moles/Vol] 108 mmol/L 98-107 [facility] Glucose [Mass/Vol] 98 mg/dL 74-106 [facility] Hemoglobin (Bld) [Mass/Vol] 11.1 g/dL 12.0-15.0 [facility] Potassium [Moles/Vol] 3.6 mmol/L 3.5-5.1 [facility] Protein [Mass/Vol] 7.1 g/dL 6.4-8.2 [facility] Sodium [Moles/Vol] 140 mmol/L 136-145 [facility] WBC (Bld) [#/Vol] 7.1 10*3/uL 4.4-11.0 [facility] Determination of erythrocyte mean corpuscular volume (MCV)Ordered By: Kurt Mari on 11-01-2023 MCV (RBC) [Entitic vol] 91.4 fL 81-99 [facility] Erythrocyte distribution wid th ratioOrdered By: Kurt Mari on 11-01-2023 Erythrocyte distribution width (RBC) [Ratio] 14.7 % 11.6-14.6 [facility] Erythrocyte distribution wid th standard deviationOrdered By: Kurt Mari on 11-01-2023 Erythrocyte distribution width (RBC) [Entitic vol] 49.1 fL 35.1-43.9 [facility] Hematocrit Auto (Bld) [Volum e fraction]Ordered By: Kurt Mari on 11-01-2023 Hematocrit (Bld) [Volume fraction] 34.9 % 37-47 [facility] Laboratory - Chemistry and C hemistry - challengeOrdered By: Kurt Mari on 11-01-2023 Albumin/Globulin [Mass ratio] 0.6 {ratio} 0.9-2.4 [facility] ALP [Catalytic activity/Vol] 49 U/L 45-117 [facility] ALT [Catalytic activity/Vol] 15 U/L 13-56 [facility] CO2 [Moles/Vol] 23.0 mmol/L 21.0-32.0 [facility] Globulin (S) [Mass/Vol] 4.4 g/dL 2.2-4.2 [facility] Urea nitrogen/Creatinine [Mass ratio] 36.6 mg/mg 10-20 [facility] Laboratory - Hematology and Cell countsOrdered By: Kurt Mari on 11-01-2023 MCH (RBC) [Entitic mass] 29.1 pg 27.0-32.0 [facility] MCHC (RBC) [Mass/Vol] 31.8 g/dL 32-36 [facility] Platelet mean volume (Bld) [Entitic vol] 10.7 fL 6.2-12.0 [facility] Platelets (Bld) [#/Vol] 233 10*3/uL 150-450 [facility] No Panel InformationOrdered By: Kurt Mari on 11-01-2023 Estimated GFR (MDRD) Amer 84 mL/min >60 [facility] Comment on above: GFR Calc Estimated GFR (MDRD) Non-Af Amer 69 mL/min >60 [facility] Comment on above: Non- GFR Calc RBC Auto (Bld) [#/Vol]Ordere d By: Kurt Mari on 11-01-2023 RBC (Bld) [#/Vol] 3.82 10*6/uL 4.2-5.4 [facility] Serum or plasma calcium chay urement (mass/volume)Ordered By: Kurt Mari on 11-01-2023 Calcium [Mass/Vol] 8.6 mg/dL 8.5-10.1 [facility] Serum or plasma creatinine m easurement (mass/volume)Ordered By: Kurt Mari on 11-01-2023 Creatinine [Mass/Vol] 0.85 mg/dL 0.55-1.02 [facility] Comment on above: The validity of the calculated GFR & GFRAA in patients over 70 years has not been determined. Clinical correlation is essential. Serum or plasma urea nitroge n measurement (mass/volume)Ordered By: Kurt Mari on 11-01-2023 Urea nitrogen [Mass/Vol] 31 mg/dL 7-18 [facility] Thin prep Papanicolaou smear with manual screeningOrdered By: Kurt Mari on 11-01-2023 Thin prep Papanicolaou smear with manual screening 2.7 g/dL 3.2-5.0 [facility] Thin prep Papanicolaou smear with manual screening 14 U/L 15-37 [facility] Thin prep Papanicolaou smear with manual screening 9 5-15 [facility] Basophil percentageOrdered B y: Gerda Wilks on 10-15-2023 Chloride [Moles/Vol] 111 mmol/L 98-107 [facility] Glucose [Mass/Vol] 123 mg/dL 74-106 [facility] Comment on above: Fasting Glucose resu lt from 100 to 125 mg/dL suggests IMPAIRED HOMEOSTASIS per A.D.A. criteria. Potassium [Moles/Vol] 4.0 mmol/L 3.5-5.1 [facility] Sodium [Moles/Vol] 141 mmol/L 136-145 [facility] Laboratory - Chemistry and C hemistry - challengeOrdered By: Gerda Wilks on 10-15-2023 CO2 [Moles/Vol] 26.0 mmol/L 21.0-32.0 [facility] Magnesium [Mass/Vol] 2.3 mg/dL 1.6-2.6 [facility] Urea nitrogen/Creatinine [Mass ratio] 36.5 mg/mg 10-20 [facility] No Panel InformationOrdered By: Gerda Wilks on 10-15-2023 Estimated GFR (MDRD) Amer 81 mL/min >60 [facility] Comment on above: GFR Calc Estimated GFR (MDRD) Non-Af Amer 67 mL/min >60 [facility] Comment on above: Non- GFR Calc Serum or plasma calcium chay urement (mass/volume)Ordered By: Gerda Wilks on 10-15-2023 Calcium [Mass/Vol] 9.5 mg/dL 8.5-10.1 [facility] Serum or plasma creatinine m easurement (mass/volume)Ordered By: Gerda Wilks on 10-15-2023 Creatinine [Mass/Vol] 0.88 mg/dL 0.55-1.02 [facility] Comment on above: The validity of the calculated GFR & GFRAA in patients over 70 years has not been determined. Clinical correlation is essential. Serum or plasma urea nitroge n measurement (mass/volume)Ordered By: Gerda Wilks on 10-15-2023 Urea nitrogen [Mass/Vol] 32 mg/dL 7-18 [facility] Thin prep Papanicolaou smear with manual screeningOrdered By: Gerda Wilks on 10-15-2023 Thin prep Papanicolaou smear with manual screening 4 5-15 [facility] Basophil percentageOrdered B y: Gerda Wilks on 10-05-2023 Chloride [Moles/Vol] 111 mmol/L 98-107 [facility] Glucose [Mass/Vol] 119 mg/dL 74-106 [facility] Comment on above: Fasting Glucose resu lt from 100 to 125 mg/dL suggests IMPAIRED HOMEOSTASIS per A.D.A. criteria. Hemoglobin (Bld) [Mass/Vol] 11.6 g/dL 12.0-15.0 [facility] Potassium [Moles/Vol] 4.2 mmol/L 3.5-5.1 [facility] Sodium [Moles/Vol] 143 mmol/L 136-145 [facility] WBC (Bld) [#/Vol] 8.0 10*3/uL 4.4-11.0 [facility] Determination of erythrocyte mean corpuscular volume (MCV)Ordered By: Gerda Wilks on 10-05-2023 MCV (RBC) [Entitic vol] 92.2 fL 81-99 [facility] Erythrocyte distribution wid th ratioOrdered By: Gerda Wilks on 10-05-2023 Erythrocyte distribution width (RBC) [Ratio] 15.1 % 11.6-14.6 [facility] Erythrocyte distribution wid th standard deviationOrdered By: Gerda Wilks on 10-05-2023 Erythrocyte distribution width (RBC) [Entitic vol] 51.2 fL 35.1-43.9 [facility] Hematocrit Auto (Bld) [Volum e fraction]Ordered By: Gerda Wilks on 10-05-2023 Hematocrit (Bld) [Volume fraction] 37.6 % 37-47 [facility] Laboratory - Chemistry and C hemistry - challengeOrdered By: Gerda Wilks on 10-05-2023 CO2 [Moles/Vol] 28.0 mmol/L 21.0-32.0 [facility] Urea nitrogen/Creatinine [Mass ratio] 37.4 mg/mg 10-20 [facility] Laboratory - Hematology and Cell countsOrdered By: Gerda Wilks on 10-05-2023 MCH (RBC) [Entitic mass] 28.4 pg 27.0-32.0 [facility] MCHC (RBC) [Mass/Vol] 30.9 g/dL 32-36 [facility] Platelet mean volume (Bld) [Entitic vol] 10.5 fL 6.2-12.0 [facility] Platelets (Bld) [#/Vol] 247 10*3/uL 150-450 [facility] No Panel InformationOrdered By: Gerda Wilks on 10-05-2023 Estimated GFR (MDRD) Amer 97 mL/min >60 [facility] Comment on above: GFR Calc Estimated GFR (MDRD) Non-Af Amer 80 mL/min >60 [facility] Comment on above: Non- GFR Calc RBC Auto (Bld) [#/Vol]Ordere d By: Gerda Wilks on 10-05-2023 RBC (Bld) [#/Vol] 4.08 10*6/uL 4.2-5.4 [facility] Serum or plasma calcium chay urement (mass/volume)Ordered By: Gerda Wilks on 10-05-2023 Calcium [Mass/Vol] 9.1 mg/dL 8.5-10.1 [facility] Serum or plasma creatinine m easurement (mass/volume)Ordered By: Gerda Wilks on 10-05-2023 Creatinine [Mass/Vol] 0.75 mg/dL 0.55-1.02 [facility] Comment on above: The validity of the calculated GFR & GFRAA in patients over 70 years has not been determined. Clinical correlation is essential. Serum or plasma urea nitroge n measurement (mass/volume)Ordered By: Gerda Wilks on 10-05-2023 Urea nitrogen [Mass/Vol] 28 mg/dL 7-18 [facility] Thin prep Papanicolaou smear with manual screeningOrdered By: Gerda Wilks on 10-05-2023 Thin prep Papanicolaou smear with manual screening 4 5-15 [facility] Basophil percentageOrdered B y: Gerda Wilks on 09-07-2023 Chloride [Moles/Vol] 109 mmol/L 98-107 [facility] Glucose [Mass/Vol] 113 mg/dL 74-106 [facility] Comment on above: Fasting Glucose resu lt from 100 to 125 mg/dL suggests IMPAIRED HOMEOSTASIS per A.D.A. criteria. Potassium [Moles/Vol] 4.2 mmol/L 3.5-5.1 [facility] Sodium [Moles/Vol] 142 mmol/L 136-145 [facility] WBC (Bld) [#/Vol] 7.9 10*3/uL 4.4-11.0 [facility] Blood erythrocytes count (nu mber/volume)Ordered By: Gerda Wilks on 09-07-2023 RBC (Bld) [#/Vol] 4.36 10*6/uL 4.2-5.4 [facility] Blood hemoglobin measurement (mass/volume)Ordered By: Gerda Wilks on 09-07-2023 Hemoglobin (Bld) [Mass/Vol] 12.7 g/dL 12.0-15.0 [facility] Blood platelet mean volumeOr dered By: Gerda Wilks on 09-07-2023 Platelet mean volume (Bld) [Entitic vol] 10.5 fL 6.2-12.0 [facility] Determination of erythrocyte mean corpuscular volume (MCV)Ordered By: Gerda Wilks on 09-07-2023 MCV (RBC) [Entitic vol] 92.2 fL 81-99 [facility] Hematocrit Auto (Bld) [Volum e fraction]Ordered By: Gerda Wilks on 09-07-2023 Hematocrit (Bld) [Volume fraction] 40.2 % 37-47 [facility] Laboratory - Chemistry and C hemistry - challengeOrdered By: Gerda Wilks on 09-07-2023 CO2 [Moles/Vol] 27.0 mmol/L 21.0-32.0 [facility] Urea nitrogen/Creatinine [Mass ratio] 41.4 mg/mg 10-20 [facility] Laboratory - Hematology and Cell countsOrdered By: Gerda Wilks on 09-07-2023 Erythrocyte distribution width (RBC) [Entitic vol] 50.9 fL 35.1-43.9 [facility] Erythrocyte distribution width (RBC) [Ratio] 15.1 % 11.6-14.6 [facility] MCH (RBC) [Entitic mass] 29.1 pg 27.0-32.0 [facility] MCHC Auto (RBC) [Mass/Vol]Or dered By: Gerda Wilks on 09-07-2023 MCHC (RBC) [Mass/Vol] 31.6 g/dL 32-36 [facility] No Panel InformationOrdered By: Gerda Wilks on 09-07-2023 Estimated GFR (MDRD) Amer 81 mL/min >60 [facility] Comment on above: GFR Calc Estimated GFR (MDRD) Non-Af Amer 67 mL/min >60 [facility] Comment on above: Non- GFR Calc Platelets bldOrdered By: Gustavo Wilks on 09-07-2023 Platelets (Bld) [#/Vol] 266 10*3/uL 150-450 [facility] Serum or plasma calcium chay urement (mass/volume)Ordered By: Gerda Wilks on 09-07-2023 Calcium [Mass/Vol] 9.6 mg/dL 8.5-10.1 [facility] Serum or plasma creatinine m easurement (mass/volume)Ordered By: Gerda Wilks on 09-07-2023 Creatinine [Mass/Vol] 0.87 mg/dL 0.55-1.02 [facility] Comment on above: The validity of the calculated GFR & GFRAA in patients over 70 years has not been determined. Clinical correlation is essential. Serum or plasma urea nitroge n measurement (mass/volume)Ordered By: Gerda Wilks on 09-07-2023 Urea nitrogen [Mass/Vol] 36 mg/dL 7-18 [facility] Thin prep Papanicolaou smear with manual screeningOrdered By: Gerda Wilks on 09-07-2023 Thin prep Papanicolaou smear with manual screening 6 5-15 [facility] Absolute lymphocyte countOrd ered By: Jose Martin Drake on 09-06-2023 Lymphocytes Auto (Unsp spec) [#/Vol] 1.74 10*3/uL 0.83-4.51 [facility] Basophil percentageOrdered B y: Jose Martin Drake on 09-06-2023 Basophils/100 WBC (Bld) 1.0 % 0-1 [facility] Eosinophils/100 WBC (Bld) 3.9 % 0-5 [facility] Neutrophils (Bld) [#/Vol] 5.2 10*3/uL 2.0-7.7 [facility] Neutrophils/100 WBC (Bld) 65.5 % 47-70 [facility] WBC (Bld) [#/Vol] 8.0 10*3/uL 4.4-11.0 [facility] Blood erythrocytes count (nu mber/volume)Ordered By: Jose Martin Drake on 09-06-2023 RBC (Bld) [#/Vol] 4.53 10*6/uL 4.2-5.4 [facility] Blood hemoglobin measurement (mass/volume)Ordered By: Jose Martin Drake on 09-06-2023 Hemoglobin (Bld) [Mass/Vol] 13.2 g/dL 12.0-15.0 [facility] Blood lymphocytes/100 leukoc ytesOrdered By: Jose Martin Drake on 09-06-2023 Lymphocytes/100 WBC (Bld) 21.8 % 19-41 [facility] Blood monocytes/100 leukocyt esOrdered By: Jose Martin Drake on 09-06-2023 Monocytes/100 WBC (Bld) 6.9 % 0-10 [facility] Blood platelet mean volumeOr dered By: Jose Martin Drake on 09-06-2023 Platelet mean volume (Bld) [Entitic vol] 10.7 fL 6.2-12.0 [facility] Determination of erythrocyte mean corpuscular volume (MCV)Ordered By: Jose Martin Drake on 09-06-2023 MCV (RBC) [Entitic vol] 92.3 fL 81-99 [facility] Hematocrit Auto (Bld) [Volum e fraction]Ordered By: Jose Martin Drake on 09-06-2023 Hematocrit (Bld) [Volume fraction] 41.8 % 37-47 [facility] Laboratory - Chemistry and C hemistry - challengeOrdered By: Jose Martin Drake on 09-06-2023 Cobalamin (Vitamin B12) [Mass/Vol] 563 pg/mL 211-911 [facility] Laboratory - Hematology and Cell countsOrdered By: Jose Martin Drake on 01-11-2024 Erythrocyte distribution width (RBC) [Entitic vol] 51.3 fL 35.1-43.9 [facility] Erythrocyte distribution width (RBC) [Ratio] 15.1 % 11.6-14.6 [facility] Immature granulocytes/100 WBC (Bld) 0.900 % 0.0-0.9 [facility] Comment on above: IG% - Immature Granu locytes (promyelocytes, myelocytes and metamyelocytes) > 1% indicates that a LEFT SHIFT is Present. MCH (RBC) [Entitic mass] 29.1 pg 27.0-32.0 [facility] Nucleated RBC/100 WBC (Bld) [Ratio] 0 % 0-5 [facility] MCHC Auto (RBC) [Mass/Vol]Or dered By: Jose Martin Drake on 09-06-2023 MCHC (RBC) [Mass/Vol] 31.6 g/dL 32-36 [facility] No Panel InformationOrdered By: Jose Martni Drake on 09-06-2023 Vitamin D 25-Hydroxy 57.1 ng/mL [facility] Comment on above: Vitamin D 25(OH) Sta tus Range Deficiency <20 ng/mL (50nmol/L) Insufficiency 20 - 30 ng/mL (50 - 75 nmol/L) Sufficiency 30 - 100 ng/mL (75 - 250 nmol/L) Toxicity >100 ng/mL (>250 nmol/L) Platelets bldOrdered By: Dav Drake on 09-06-2023 Platelets (Bld) [#/Vol] 284 10*3/uL 150-450 [facility] Serum or plasma calcitriol m easurement (mass/volume)Ordered By: Jose Martin Drake on 09-06-2023 1,25-dihydroxyvitamin D3 [Mass/Vol] 22.3 pg/mL 24.8-81.5 [facility] Comment on above: Performed at: [facility] [address] [id number] Director: Estuardo Alegria MD, Phone: [phone] Serum or plasma ferritin riley surement (mass/volume)Ordered By: Jose Martin Drake on 09-06-2023 Ferritin [Mass/Vol] 30 ng/mL 8-252 [facility] Serum or plasma zinc measure ment (mass/volume)Ordered By: Jose Martin Drake on 09-06-2023 Zinc [Mass/Vol] 63 ug/dL 44-115 [facility] Comment on above: Detection Limit = 5P erformed at: [facility] [id number] Director: Estuardo Alegria MD, Phone: [phone] Basophil percentageOrdered B y: Gerda Wilks on 08-08-2023 Chloride [Moles/Vol] 109 mmol/L 98-107 [facility] Glucose [Mass/Vol] 145 mg/dL 74-106 [facility] Comment on above: Fasting Glucose resu lt greater than or equal to 126 mg/dL suggests DIABETES MELLITUS per A.D.A. criteria. Potassium [Moles/Vol] 3.9 mmol/L 3.5-5.1 [facility] Sodium [Moles/Vol] 140 mmol/L 136-145 [facility] WBC (Bld) [#/Vol] 6.9 10*3/uL 4.4-11.0 [facility] Blood erythrocytes count (nu mber/volume)Ordered By: Gerda Wilks on 08-08-2023 RBC (Bld) [#/Vol] 4.46 10*6/uL 4.2-5.4 [facility] Blood hemoglobin measurement (mass/volume)Ordered By: Gerda Wilks on 08-08-2023 Hemoglobin (Bld) [Mass/Vol] 12.9 g/dL 12.0-15.0 [facility] Blood platelet mean volumeOr dered By: Gerda Wilks on 08-08-2023 Platelet mean volume (Bld) [Entitic vol] 10.7 fL 6.2-12.0 [facility] Determination of erythrocyte mean corpuscular volume (MCV)Ordered By: Gerda Wilks on 08-08-2023 MCV (RBC) [Entitic vol] 93.0 fL 81-99 [facility] Hematocrit Auto (Bld) [Volum e fraction]Ordered By: Gerda Wilks on 08-08-2023 Hematocrit (Bld) [Volume fraction] 41.5 % 37-47 [facility] Iron measurement (mass/mass) Ordered By: Gerda Wilks on 08-08-2023 Iron (Unsp spec) [Mass/Mass] 42 ug/dL 50-170 [facility] Laboratory - Chemistry and C hemistry - challengeOrdered By: Gerda Wilks on 08-08-2023 CO2 [Moles/Vol] 27.0 mmol/L 21.0-32.0 [facility] Urea nitrogen/Creatinine [Mass ratio] 32.4 mg/mg 10-20 [facility] Laboratory - Hematology and Cell countsOrdered By: Gerda Wilks on 08-08-2023 Erythrocyte distribution width (RBC) [Entitic vol] 52.4 fL 35.1-43.9 [facility] Erythrocyte distribution width (RBC) [Ratio] 15.3 % 11.6-14.6 [facility] MCH (RBC) [Entitic mass] 28.9 pg 27.0-32.0 [facility] MCHC Auto (RBC) [Mass/Vol]Or dered By: Gerda Wilks on 08-08-2023 MCHC (RBC) [Mass/Vol] 31.1 g/dL 32-36 [facility] No Panel InformationOrdered By: Gerda Wilks on 08-08-2023 Estimated GFR (MDRD) Amer 68 mL/min >60 [facility] Comment on above: GFR Calc Estimated GFR (MDRD) Non-Af Amer 56 mL/min >60 [facility] Comment on above: Non- GFR Calc Total Iron Binding Capacity 325 ug/dL 250-450 [facility] Platelets bldOrdered By: Gustavo Wilks on 08-08-2023 Platelets (Bld) [#/Vol] 247 10*3/uL 150-450 [facility] Serum or plasma calcium chay urement (mass/volume)Ordered By: Gerda Wilks on 08-08-2023 Calcium [Mass/Vol] 9.4 mg/dL 8.5-10.1 [facility] Serum or plasma creatinine m easurement (mass/volume)Ordered By: Gerda Wilks on 08-08-2023 Creatinine [Mass/Vol] 1.02 mg/dL 0.55-1.02 [facility] Comment on above: The validity of the calculated GFR & GFRAA in patients over 70 years has not been determined. Clinical correlation is essential. Serum or plasma iron saturat ion measurement (mass fraction)Ordered By: Gerda Wilks on 08-08-2023 Iron saturation [Mass fraction] 12.9 % 15.0-55.0 [facility] Serum or plasma urea nitroge n measurement (mass/volume)Ordered By: Gerda Wilks on 08-08-2023 Urea nitrogen [Mass/Vol] 33 mg/dL 7-18 [facility] Thin prep Papanicolaou smear with manual screeningOrdered By: Gerda Wilks on 08-08-2023 Thin prep Papanicolaou smear with manual screening 4 5-15 [facility] CNOVon 07-23-2023 CNOV Office Visit (ORMDNA) ---- KAMILAH MCKEON ([id number]) 1945 F Date Time Provider Department 07/23/23 2:00 PM ENEDINA CANCHOLA During your visit today, we recorded the following information about you: Enedina Canchola PA-C 07/24/2023 2:47 PM Signed Enedina Canchola PA-C Department of Orthopaedics Orthopaedics [address] [place] [id number] Dept: [phone] July 23, 2023 SUBJECTIVE: CHIEF COMPLAINT: Pain [...] and 3rd digit Phalen's: postive Tinel's: negative Safety Trainer strength: 5/5 IMAGIN07/23/2023 4:08 PM - Radiology, Oru In Impression IMPRESSION: Findings as discussed in results portion of report Marketing Writer: GERMAINE Transcribe Date/Time: Jul 23 2023 4:04P Dictated by : WALTER BRODY DO This examination was interpreted and the report reviewed and electronically signed by: WALTER BRODY DO on Jul 23 2023 4:06PM EST Results-Findings * * *Final Report* * * DATE OF EXAM: Jul 23 2023 1:23PM CHRISTINE [id number] - XR WRIST 3V PA/LAT/OBL RT / PROCEDURE REASON: [id number] * * * * Physician Interpretation * [...] Patient agre (more content not included)... Normal [facility] XR WRIST 3V PA/LAT/OBL RTon 07-23-2023 XR WRIST 3V PA/LAT/OBL RT * * *Final Report* * * DATE OF EXAM: Jul 23 2023 1:23PM O [id number] - XR WRIST 3V PA/LAT/OBL RT / PROCEDURE REASON: [id number] * * * * Physician Interpretation * [...] as discussed in results portion of report Marketing Writer: GERMAINE Transcribe Date/Time: Jul 23 2023 4:04P Dictated by : WALTER BRODY DO This examination was interpreted and the report reviewed and electronically signed by: WALTER BRODY DO on Jul 23 2023 4:06PM EST [id number] Normal [facility] XR Wrist - right PA and Late ral and Obliqueon 07-23-2023 IMPRESSION: Findings as discussed in results portion of report Marketing Writer: PSCB Transcribe Date/Time: Jul 23 2023 4:04P Dictated by : WALTER BRODY DO This examination was interpreted and the report reviewed and electronically signed by: WALTER BRODY DO on Jul 23 2023 4:06PM EST [facility] * * *Final Report* * * DATE OF EXAM: Jul 23 2023 1:23PM CHRISTINE Harman1 - XR WRIST 3V PA/LAT/OBL RT / PROCEDURE REASON: [id number] * * * * Physician Interpretation * [...] bones No fractures or dislocations are seen. [facility] Provider, [facility] [place] - 07/23/2023 * * *Final Report* * * DATE OF EXAM: Jul 23 2023 1:23PM CHRISTINE 5271 - XR WRIST 3V PA/LAT/OBL RT / PROCEDURE REASON: [id number] * * * * Physician Interpretation * [...] as discussed in results portion of report Marketing Writer: PSCB Transcribe Date/Time: Jul 23 2023 4:04P Dictated by : WALTER BRODY DO This examination was interpreted and the report reviewed and electronically signed by: WALTER BRODY DO on Jul 23 2023 4:06PM [facility] Radiology Study observation (narrative) [facility] XR Wrist - right PA and Late ral and ObliqueOrdered By: Ccf Provider on 07-23-2023 [facility] Basophil percentageOrdered B y: Rizwan Florentino on 07-12-2023 Chloride [Moles/Vol] 110 mmol/L 98-107 [facility] Glucose [Mass/Vol] 117 mg/dL 74-106 [facility] Comment on above: Fasting Glucose resu lt from 100 to 125 mg/dL suggests IMPAIRED HOMEOSTASIS per A.D.A. criteria. Potassium [Moles/Vol] 4.2 mmol/L 3.5-5.1 [facility] Sodium [Moles/Vol] 142 mmol/L 136-145 [facility] WBC (Bld) [#/Vol] 7.0 10*3/uL 4.4-11.0 [facility] Blood erythrocytes count (nu mber/volume)Ordered By: Rizwan Florentino on 07-12-2023 RBC (Bld) [#/Vol] 4.17 10*6/uL 4.2-5.4 [facility] Blood hemoglobin measurement (mass/volume)Ordered By: Rizwan Florentino on 07-12-2023 Hemoglobin (Bld) [Mass/Vol] 12.1 g/dL 12.0-15.0 [facility] Blood platelet mean volumeOr dered By: Rizwan Florentino on 07-12-2023 Platelet mean volume (Bld) [Entitic vol] 10.8 fL 6.2-12.0 [facility] Determination of erythrocyte mean corpuscular volume (MCV)Ordered By: Rizwan Florentino on 07-12-2023 MCV (RBC) [Entitic vol] 93.5 fL 81-99 [facility] Hematocrit Auto (Bld) [Volum e fraction]Ordered By: Rizwan Florentino on 07-12-2023 Hematocrit (Bld) [Volume fraction] 39.0 % 37-47 [facility] - Chemistry and C hemistry - challengeOrdered By: Rizwan Florentino on 07-12-2023 CO2 [Moles/Vol] 28.0 mmol/L 21.0-32.0 [facility] Urea nitrogen/Creatinine [Mass ratio] 42.5 mg/mg 10-20 [facility] - Hematology and Cell countsOrdered By: Rizwan Florentino on 07-12-2023 Erythrocyte distribution width (RBC) [Entitic vol] 53.0 fL 35.1-43.9 [facility] Erythrocyte distribution width (RBC) [Ratio] 15.5 % 11.6-14.6 [facility] MCH (RBC) [Entitic mass] 29.0 pg 27.0-32.0 [facility] MCHC Auto (RBC) [Mass/Vol]Or dered By: Rizwan Florentino on 07-12-2023 MCHC (RBC) [Mass/Vol] 31.0 g/dL 32-36 [facility] No Panel InformationOrdered By: Rizwan Florentino on 07-12-2023 Estimated GFR (MDRD) Amer 90 mL/min >60 [facility] Comment on above: GFR Calc Estimated GFR (MDRD) Non-Af Amer 74 mL/min >60 [facility] Comment on above: Non- GFR Calc Platelets bldOrdered By: Leatha Florentino on 07-12-2023 Platelets (Bld) [#/Vol] 255 10*3/uL 150-450 [facility] Serum or plasma calcium chay urement (mass/volume)Ordered By: Rizwan Florentino on 07-12-2023 Calcium [Mass/Vol] 9.0 mg/dL 8.5-10.1 [facility] Serum or plasma creatinine m easurement (mass/volume)Ordered By: Rizwan Florentino on 07-12-2023 Creatinine [Mass/Vol] 0.80 mg/dL 0.55-1.02 [facility] Comment on above: The validity of the calculated GFR & GFRAA in patients over 70 years has not been determined. Clinical correlation is essential. Serum or plasma urea nitroge n measurement (mass/volume)Ordered By: Rizwan Florentino on 07-12-2023 Urea nitrogen [Mass/Vol] 34 mg/dL 7-18 [facility] Thin prep Papanicolaou smear with manual screeningOrdered By: Rizwan Florentino on 07-12-2023 Thin prep Papanicolaou smear with manual screening 4 5-15 [facility] Basophil percentageOrdered B y: Gerda Wilks on 07-05-2023 Cholesterol [Mass/Vol] 155 mg/dL <200 [facility] Comment on above: <200 mg/dL Desirable 200-240 mg/dL Borderline >240 mg/dL High Risk Triglyceride [Mass/Vol] 79 mg/dL <199 [facility] Comment on above: The drugs N-Acetylcy steine and Metamizole may falsely depress this assay.Serum Triglycerides Reference Interval Normal <150 mg/dL Borderline high 150 - 199 mg/dL High 200 - 499 mg/dL Very High > or = 500 mg/dL Serum or plasma cholesterol in HDL measurement (mass/volume)Ordered By: Gerda Wilks on 07-05-2023 Cholesterol in HDL [Mass/Vol] 60 mg/dL >40 [facility] Comment on above: The drugs N-Acetylcy steine and Metamizole may falsely depress this assay. Reference Range HDL <40 mg/dL Low HDL Cholesterol HDL >or= 60 mg/dL High HDL Cholesterol Serum or plasma cholesterol in VLDL measurement (mass/volume)Ordered By: Gerda Wilks on 07-05-2023 Cholesterol in VLDL [Mass/Vol] 16 mg/dL 5-40 [facility] Serum or plasma low density lipoprotein (LDL) cholesterol measurement (mass/volume)Ordered By: Gerda Wilks on 07-05-2023 Cholesterol in LDL [Mass/Vol] 79 mg/dL 0-130 [facility] Basophil percentageOrdered B y: Gerda Wilks on 06-14-2023 Chloride [Moles/Vol] 112 mmol/L 98-107 [facility] Glucose [Mass/Vol] 112 mg/dL 74-106 [facility] Comment on above: Fasting Glucose resu lt from 100 to 125 mg/dL suggests IMPAIRED HOMEOSTASIS per A.D.A. criteria. Potassium [Moles/Vol] 4.3 mmol/L 3.5-5.1 [facility] Sodium [Moles/Vol] 143 mmol/L 136-145 [facility] WBC (Bld) [#/Vol] 7.0 10*3/uL 4.4-11.0 [facility] Blood erythrocytes count (nu mber/volume)Ordered By: Gerda Wilks on 06-14-2023 RBC (Bld) [#/Vol] 4.40 10*6/uL 4.2-5.4 [facility] Blood hemoglobin measurement (mass/volume)Ordered By: Gerda Wilks on 06-14-2023 Hemoglobin (Bld) [Mass/Vol] 12.6 g/dL 12.0-15.0 [facility] Blood platelet mean volumeOr dered By: Gerda Wilks on 06-14-2023 Platelet mean volume (Bld) [Entitic vol] 11.0 fL 6.2-12.0 [facility] Determination of erythrocyte mean corpuscular volume (MCV)Ordered By: Gerda Wilks on 06-14-2023 MCV (RBC) [Entitic vol] 93.6 fL 81-99 [facility] Hematocrit Auto (Bld) [Volum e fraction]Ordered By: Gerda Wilks on 06-14-2023 Hematocrit (Bld) [Volume fraction] 41.2 % 37-47 [facility] - Chemistry and C hemistry - challengeOrdered By: Gerda Wilks on 06-14-2023 CO2 [Moles/Vol] 26.0 mmol/L 21.0-32.0 [facility] Urea nitrogen/Creatinine [Mass ratio] 36.6 mg/mg 10-20 [facility] - Hematology and Cell countsOrdered By: Gerda Wilks on 06-14-2023 Erythrocyte distribution width (RBC) [Entitic vol] 53.9 fL 35.1-43.9 [facility] Erythrocyte distribution width (RBC) [Ratio] 15.6 % 11.6-14.6 [facility] MCH (RBC) [Entitic mass] 28.6 pg 27.0-32.0 [facility] MCHC Auto (RBC) [Mass/Vol]Or dered By: Gerda Wilks on 06-14-2023 MCHC (RBC) [Mass/Vol] 30.6 g/dL 32-36 [facility] No Panel InformationOrdered By: Gerda Wilks on 06-14-2023 Estimated GFR (MDRD) Amer 87 mL/min >60 [facility] Comment on above: GFR Calc Estimated GFR (MDRD) Non-Af Amer 72 mL/min >60 [facility] Comment on above: Non- GFR Calc Platelets bldOrdered By: Gustavo Wilks on 06-14-2023 Platelets (Bld) [#/Vol] 244 10*3/uL 150-450 [facility] Serum or plasma calcium chay urement (mass/volume)Ordered By: Gerda Wilks on 06-14-2023 Calcium [Mass/Vol] 9.2 mg/dL 8.5-10.1 [facility] Serum or plasma creatinine m easurement (mass/volume)Ordered By: Gerda Wilks on 06-14-2023 Creatinine [Mass/Vol] 0.82 mg/dL 0.55-1.02 [facility] Comment on above: The validity of the calculated GFR & GFRAA in patients over 70 years has not been determined. Clinical correlation is essential. Serum or plasma urea nitroge n measurement (mass/volume)Ordered By: Gerda Wilks on 06-14-2023 Urea nitrogen [Mass/Vol] 30 mg/dL 7-18 [facility] Thin prep Papanicolaou smear with manual screeningOrdered By: Gerda Wilks on 06-14-2023 Thin prep Papanicolaou smear with manual screening 5 5-15 [facility] Basophil percentageOrdered B y: Gerda Wilks on 05-17-2023 Chloride [Moles/Vol] 108 mmol/L 98-107 [facility] Glucose [Mass/Vol] 140 mg/dL 74-106 [facility] Comment on above: Fasting Glucose resu lt greater than or equal to 126 mg/dL suggests DIABETES MELLITUS per A.D.A. criteria. Potassium [Moles/Vol] 3.8 mmol/L 3.5-5.1 [facility] Sodium [Moles/Vol] 142 mmol/L 136-145 [facility] WBC (Bld) [#/Vol] 8.5 10*3/uL 4.4-11.0 [facility] Blood erythrocytes count (nu mber/volume)Ordered By: Gerda Wilks on 05-17-2023 RBC (Bld) [#/Vol] 4.43 10*6/uL 4.2-5.4 [facility] Blood hemoglobin measurement (mass/volume)Ordered By: Gerda Wilks on 05-17-2023 Hemoglobin (Bld) [Mass/Vol] 12.6 g/dL 12.0-15.0 [facility] Blood platelet mean volumeOr dered By: Gerda Wilks on 05-17-2023 Platelet mean volume (Bld) [Entitic vol] 10.4 fL 6.2-12.0 [facility] Determination of erythrocyte mean corpuscular volume (MCV)Ordered By: Gerda Wilks on 05-17-2023 MCV (RBC) [Entitic vol] 92.1 fL 81-99 [facility] Hematocrit Auto (Bld) [Volum e fraction]Ordered By: Gerda Wilks on 05-17-2023 Hematocrit (Bld) [Volume fraction] 40.8 % 37-47 [facility] - Chemistry and C hemistry - challengeOrdered By: Gerda Wilks on 05-17-2023 CO2 [Moles/Vol] 28.0 mmol/L 21.0-32.0 [facility] Urea nitrogen/Creatinine [Mass ratio] 36.6 mg/mg 10-20 [facility] - Hematology and Cell countsOrdered By: Gerda Wilks on 05-17-2023 Erythrocyte distribution width (RBC) [Entitic vol] 55.1 fL 35.1-43.9 [facility] Erythrocyte distribution width (RBC) [Ratio] 16.2 % 11.6-14.6 [facility] MCH (RBC) [Entitic mass] 28.4 pg 27.0-32.0 [facility] MCHC Auto (RBC) [Mass/Vol]Or dered By: Gerda Wilks on 05-17-2023 MCHC (RBC) [Mass/Vol] 30.9 g/dL 32-36 [facility] No Panel InformationOrdered By: Gerda Wilks on 05-17-2023 Estimated GFR (MDRD) Amer 75 mL/min >60 [facility] Comment on above: GFR Calc Estimated GFR (MDRD) Non-Af Amer 62 mL/min >60 [facility] Comment on above: Non- GFR Calc Platelets bldOrdered By: Gustavo Wilks on 05-17-2023 Platelets (Bld) [#/Vol] 254 10*3/uL 150-450 [facility] Serum or plasma calcium chay urement (mass/volume)Ordered By: Gerda Wilks on 05-17-2023 Calcium [Mass/Vol] 9.5 mg/dL 8.5-10.1 [facility] Serum or plasma creatinine m easurement (mass/volume)Ordered By: Gerda Wilks on 05-17-2023 Creatinine [Mass/Vol] 0.93 mg/dL 0.55-1.02 [facility] Comment on above: The validity of the calculated GFR & GFRAA in patients over 70 years has not been determined. Clinical correlation is essential. Serum or plasma urea nitroge n measurement (mass/volume)Ordered By: Gerda Wilks on 05-17-2023 Urea nitrogen [Mass/Vol] 34 mg/dL 7-18 [facility] Thin prep Papanicolaou smear with manual screeningOrdered By: Gerda Wilks on 05-17-2023 Thin prep Papanicolaou smear with manual screening 6 5-15 [facility] Basophil percentageOrdered B y: Gerda Wilks on 04-19-2023 Chloride [Moles/Vol] 109 mmol/L 98-107 [facility] Glucose [Mass/Vol] 107 mg/dL 74-106 [facility] Comment on above: Fasting Glucose resu lt from 100 to 125 mg/dL suggests IMPAIRED HOMEOSTASIS per A.D.A. criteria. Potassium [Moles/Vol] 4.3 mmol/L 3.5-5.1 [facility] Sodium [Moles/Vol] 141 mmol/L 136-145 [facility] WBC (Bld) [#/Vol] 6.6 10*3/uL 4.4-11.0 [facility] Blood erythrocytes count (nu mber/volume)Ordered By: Gerda Wilks on 04-19-2023 RBC (Bld) [#/Vol] 4.20 10*6/uL 4.2-5.4 [facility] Blood hemoglobin measurement (mass/volume)Ordered By: Gerda Wilks on 04-19-2023 Hemoglobin (Bld) [Mass/Vol] 11.8 g/dL 12.0-15.0 [facility] Blood platelet mean volumeOr dered By: Gerda Wilks on 04-19-2023 Platelet mean volume (Bld) [Entitic vol] 10.9 fL 6.2-12.0 [facility] Determination of erythrocyte mean corpuscular volume (MCV)Ordered By: Gerda Wilks on 04-19-2023 MCV (RBC) [Entitic vol] 92.6 fL 81-99 [facility] Hematocrit Auto (Bld) [Volum e fraction]Ordered By: Gerda Wilks on 04-19-2023 Hematocrit (Bld) [Volume fraction] 38.9 % 37-47 [facility] - Chemistry and C hemistry - challengeOrdered By: Gerda Wilks on 04-19-2023 CO2 [Moles/Vol] 27.0 mmol/L 21.0-32.0 [facility] Urea nitrogen/Creatinine [Mass ratio] 36.5 mg/mg 10-20 [facility] - Hematology and Cell countsOrdered By: Gerda Wilks on 04-19-2023 Erythrocyte distribution width (RBC) [Entitic vol] 55.1 fL 35.1-43.9 [facility] Erythrocyte distribution width (RBC) [Ratio] 16.2 % 11.6-14.6 [facility] MCH (RBC) [Entitic mass] 28.1 pg 27.0-32.0 [facility] MCHC Auto (RBC) [Mass/Vol]Or dered By: Gerda Wilks on 04-19-2023 MCHC (RBC) [Mass/Vol] 30.3 g/dL 32-36 [facility] No Panel InformationOrdered By: Gerda Wilks on 04-19-2023 Estimated GFR (MDRD) Amer 98 mL/min >60 [facility] Comment on above: GFR Calc Estimated GFR (MDRD) Non-Af Amer 81 mL/min >60 [facility] Comment on above: Non- GFR Calc Platelets bldOrdered By: Gustavo Wilks on 04-19-2023 Platelets (Bld) [#/Vol] 247 10*3/uL 150-450 [facility] Serum or plasma calcium chay urement (mass/volume)Ordered By: Gerda Wilks on 04-19-2023 Calcium [Mass/Vol] 9.5 mg/dL 8.5-10.1 [facility] Serum or plasma creatinine m easurement (mass/volume)Ordered By: Gerda Wilks on 04-19-2023 Creatinine [Mass/Vol] 0.74 mg/dL 0.55-1.02 [facility] Comment on above: The validity of the calculated GFR & GFRAA in patients over 70 years has not been determined. Clinical correlation is essential. Serum or plasma urea nitroge n measurement (mass/volume)Ordered By: Gerda Wilks on 04-19-2023 Urea nitrogen [Mass/Vol] 27 mg/dL 7-18 [facility] Thin prep Papanicolaou smear with manual screeningOrdered By: Gerda Wilks on 04-19-2023 Thin prep Papanicolaou smear with manual screening 5 5-15 [facility] Basophil percentageOrdered B y: Gerda Wilks on 03-22-2023 Chloride [Moles/Vol] 107 mmol/L 98-107 [facility] Glucose [Mass/Vol] 98 mg/dL 74-106 [facility] Potassium [Moles/Vol] 3.9 mmol/L 3.5-5.1 [facility] Sodium [Moles/Vol] 139 mmol/L 136-145 [facility] WBC (Bld) [#/Vol] 7.6 10*3/uL 4.4-11.0 [facility] Blood erythrocytes count (nu mber/volume)Ordered By: Gerda Wilks on 03-22-2023 RBC (Bld) [#/Vol] 4.14 10*6/uL 4.2-5.4 [facility] Blood hemoglobin measurement (mass/volume)Ordered By: Gerda Wilks on 03-22-2023 Hemoglobin (Bld) [Mass/Vol] 12.0 g/dL 12.0-15.0 [facility] Blood platelet mean volumeOr dered By: Gerda Wilks on 03-22-2023 Platelet mean volume (Bld) [Entitic vol] 10.9 fL 6.2-12.0 [facility] Determination of erythrocyte mean corpuscular volume (MCV)Ordered By: Gerda iWlks on 03-22-2023 MCV (RBC) [Entitic vol] 91.3 fL 81-99 [facility] Hematocrit Auto (Bld) [Volum e fraction]Ordered By: Gerda Wilks on 03-22-2023 Hematocrit (Bld) [Volume fraction] 37.8 % 37-47 [facility] - Chemistry and C hemistry - challengeOrdered By: Gerda Wilks on 03-22-2023 CO2 [Moles/Vol] 26.0 mmol/L 21.0-32.0 [facility] Urea nitrogen/Creatinine [Mass ratio] 35.3 mg/mg 10-20 [facility] - Hematology and Cell countsOrdered By: Gerda Wilks on 03-22-2023 Erythrocyte distribution width (RBC) [Entitic vol] 53.3 fL 35.1-43.9 [facility] Erythrocyte distribution width (RBC) [Ratio] 16.0 % 11.6-14.6 [facility] MCH (RBC) [Entitic mass] 29.0 pg 27.0-32.0 [facility] MCHC Auto (RBC) [Mass/Vol]Or dered By: Gerda Wilks on 03-22-2023 MCHC (RBC) [Mass/Vol] 31.7 g/dL 32-36 [facility] No Panel InformationOrdered By: Gerda Wilks on 03-22-2023 Estimated GFR (MDRD) Amer 90 mL/min >60 [facility] Comment on above: GFR Calc Estimated GFR (MDRD) Non-Af Amer 75 mL/min >60 [facility] Comment on above: Non- GFR Calc Platelets bldOrdered By: Gustavo Wilks on 03-22-2023 Platelets (Bld) [#/Vol] 242 10*3/uL 150-450 [facility] Serum or plasma calcium chay urement (mass/volume)Ordered By: Gerda Wilks on 03-22-2023 Calcium [Mass/Vol] 9.0 mg/dL 8.5-10.1 [facility] Serum or plasma creatinine m easurement (mass/volume)Ordered By: Gerda Wliks on 03-22-2023 Creatinine [Mass/Vol] 0.79 mg/dL 0.55-1.02 [facility] Comment on above: The validity of the calculated GFR & GFRAA in patients over 70 years has not been determined. Clinical correlation is essential. Serum or plasma urea nitroge n measurement (mass/volume)Ordered By: Gerda Wilks on 03-22-2023 Urea nitrogen [Mass/Vol] 28 mg/dL 7-18 [facility] Thin prep Papanicolaou smear with manual screeningOrdered By: Gerda Wilks on 03-22-2023 Thin prep Papanicolaou smear with manual screening 6 5-15 [facility] Basophil percentageOrdered B y: Gerda Wilks on 02-22-2023 Chloride [Moles/Vol] 108 mmol/L 98-107 [facility] Glucose [Mass/Vol] 107 mg/dL 74-106 [facility] Comment on above: Fasting Glucose resu lt from 100 to 125 mg/dL suggests IMPAIRED HOMEOSTASIS per A.D.A. criteria. Potassium [Moles/Vol] 4.2 mmol/L 3.5-5.1 [facility] Sodium [Moles/Vol] 140 mmol/L 136-145 [facility] WBC (Bld) [#/Vol] 6.5 10*3/uL 4.4-11.0 [facility] Blood erythrocytes count (nu mber/volume)Ordered By: Gerda Wilks on 02-22-2023 RBC (Bld) [#/Vol] 4.14 10*6/uL 4.2-5.4 [facility] Blood hemoglobin measurement (mass/volume)Ordered By: Gerda Wilks on 02-22-2023 Hemoglobin (Bld) [Mass/Vol] 11.7 g/dL 12.0-15.0 [facility] Blood platelet mean volumeOr dered By: Gerda Wilks on 02-22-2023 Platelet mean volume (Bld) [Entitic vol] 10.7 fL 6.2-12.0 [facility] Determination of erythrocyte mean corpuscular volume (MCV)Ordered By: Gerda Wilks on 02-22-2023 MCV (RBC) [Entitic vol] 91.3 fL 81-99 [facility] Hematocrit Auto (Bld) [Volum e fraction]Ordered By: Gerda Wilks on 02-22-2023 Hematocrit (Bld) [Volume fraction] 37.8 % 37-47 [facility] - Chemistry and C hemistry - challengeOrdered By: Gerda Wilks on 02-22-2023 CO2 [Moles/Vol] 27.0 mmol/L 21.0-32.0 [facility] Urea nitrogen/Creatinine [Mass ratio] 33.5 mg/mg 10-20 [facility] - Hematology and Cell countsOrdered By: Gerda Wilks on 02-22-2023 Erythrocyte distribution width (RBC) [Entitic vol] 53.0 fL 35.1-43.9 [facility] Erythrocyte distribution width (RBC) [Ratio] 15.9 % 11.6-14.6 [facility] MCH (RBC) [Entitic mass] 28.3 pg 27.0-32.0 [facility] MCHC Auto (RBC) [Mass/Vol]Or dered By: Gerda Wilks on 02-22-2023 MCHC (RBC) [Mass/Vol] 31.0 g/dL 32-36 [facility] No Panel InformationOrdered By: Gerda Wilks on 02-22-2023 Estimated GFR (MDRD) Amer 93 mL/min >60 [facility] Comment on above: GFR Calc Estimated GFR (MDRD) Non-Af Amer 77 mL/min >60 [facility] Comment on above: Non- GFR Calc Platelets bldOrdered By: Gustavo Wilks on 02-22-2023 Platelets (Bld) [#/Vol] 265 10*3/uL 150-450 [facility] Serum or plasma calcium chay urement (mass/volume)Ordered By: Gerda Wilks on 02-22-2023 Calcium [Mass/Vol] 9.2 mg/dL 8.5-10.1 [facility] Serum or plasma creatinine m easurement (mass/volume)Ordered By: Gerda Wilks on 02-22-2023 Creatinine [Mass/Vol] 0.78 mg/dL 0.55-1.02 [facility] Comment on above: The validity of the calculated GFR & GFRAA in patients over 70 years has not been determined. Clinical correlation is essential. Serum or plasma urea nitroge n measurement (mass/volume)Ordered By: Gerda Wilks on 02-22-2023 Urea nitrogen [Mass/Vol] 26 mg/dL 7-18 [facility] Thin prep Papanicolaou smear with manual screeningOrdered By: Gerda Wilks on 02-22-2023 Thin prep Papanicolaou smear with manual screening 5 5-15 [facility] Basophil percentageOrdered B y: Dr. Wilks on 01-25-2023 Chloride [Moles/Vol] 108 mmol/L 98-107 [facility] Glucose [Mass/Vol] 110 mg/dL 74-106 [facility] Comment on above: Fasting Glucose resu lt from 100 to 125 mg/dL suggests IMPAIRED HOMEOSTASIS per A.D.A. criteria. Potassium [Moles/Vol] 4.1 mmol/L 3.5-5.1 [facility] Sodium [Moles/Vol] 139 mmol/L 136-145 [facility] WBC (Bld) [#/Vol] 7.2 10*3/uL 4.4-11.0 [facility] Blood erythrocytes count (nu mber/volume)Ordered By: Dr. Wilks on 01-25-2023 RBC (Bld) [#/Vol] 4.19 10*6/uL 4.2-5.4 [facility] Blood hemoglobin measurement (mass/volume)Ordered By: Dr. Wilks on 01-25-2023 Hemoglobin (Bld) [Mass/Vol] 12.0 g/dL 12.0-15.0 [facility] Blood platelet mean volumeOr dered By: Dr. Wilks on 01-25-2023 Platelet mean volume (Bld) [Entitic vol] 10.8 fL 6.2-12.0 [facility] Determination of erythrocyte mean corpuscular volume (MCV)Ordered By: Dr. Wilks on 01-25-2023 MCV (RBC) [Entitic vol] 92.8 fL 81-99 [facility] Hematocrit Auto (Bld) [Volum e fraction]Ordered By: Dr. Wilks on 01-25-2023 Hematocrit (Bld) [Volume fraction] 38.9 % 37-47 [facility] - Chemistry and C hemistry - challengeOrdered By: Dr. Wilks on 01-25-2023 CO2 [Moles/Vol] 27.0 mmol/L 21.0-32.0 [facility] Urea nitrogen/Creatinine [Mass ratio] 42.3 mg/mg 10-20 [facility] - Hematology and Cell countsOrdered By: Dr. Wilks on 01-25-2023 Erythrocyte distribution width (RBC) [Entitic vol] 55.7 fL 35.1-43.9 [facility] Erythrocyte distribution width (RBC) [Ratio] 16.3 % 11.6-14.6 [facility] MCH (RBC) [Entitic mass] 28.6 pg 27.0-32.0 [facility] MCHC Auto (RBC) [Mass/Vol]Or dered By: Dr. Wilks on 01-25-2023 MCHC (RBC) [Mass/Vol] 30.8 g/dL 32-36 [facility] No Panel InformationOrdered By: Dr. Wilks on 01-25-2023 Estimated GFR (MDRD) Amer 86 mL/min >60 [facility] Comment on above: GFR Calc Estimated GFR (MDRD) Non-Af Amer 71 mL/min >60 [facility] Comment on above: Non- GFR Calc Platelets bldOrdered By: Dr. Wilks on 01-25-2023 Platelets (Bld) [#/Vol] 262 10*3/uL 150-450 [facility] Serum or plasma calcium chay urement (mass/volume)Ordered By: Dr. Wilks on 01-25-2023 Calcium [Mass/Vol] 10.1 mg/dL 8.5-10.1 [facility] Serum or plasma creatinine m easurement (mass/volume)Ordered By: Dr. Wilks on 01-25-2023 Creatinine [Mass/Vol] 0.83 mg/dL 0.55-1.02 [facility] Comment on above: The validity of the calculated GFR & GFRAA in patients over 70 years has not been determined. Clinical correlation is essential. Serum or plasma urea nitroge n measurement (mass/volume)Ordered By: Dr. Wilks on 01-25-2023 Urea nitrogen [Mass/Vol] 35 mg/dL 7-18 [facility] Thin prep Papanicolaou smear with manual screeningOrdered By: Dr. Wilks on 01-25-2023 Thin prep Papanicolaou smear with manual screening 4 5-15 [facility] Basophil percentageOrdered B y: Dr. Wilks on 12-28-2022 Chloride [Moles/Vol] 108 mmol/L 98-107 [facility] Glucose [Mass/Vol] 109 mg/dL 74-106 [facility] Comment on above: Fasting Glucose resu lt from 100 to 125 mg/dL suggests IMPAIRED HOMEOSTASIS per A.D.A. criteria. Potassium [Moles/Vol] 4.2 mmol/L 3.5-5.1 [facility] Sodium [Moles/Vol] 141 mmol/L 136-145 [facility] WBC (Bld) [#/Vol] 8.5 10*3/uL 4.4-11.0 [facility] Blood erythrocytes count (nu mber/volume)Ordered By: Dr. Wilks on 12-28-2022 RBC (Bld) [#/Vol] 4.13 10*6/uL 4.2-5.4 [facility] Blood hemoglobin measurement (mass/volume)Ordered By: Dr. Wilks on 12-28-2022 Hemoglobin (Bld) [Mass/Vol] 11.7 g/dL 12.0-15.0 [facility] Blood platelet mean volumeOr dered By: Dr. Wilks on 12-28-2022 Platelet mean volume (Bld) [Entitic vol] 10.7 fL 6.2-12.0 [facility] Determination of erythrocyte mean corpuscular volume (MCV)Ordered By: Dr. Wilks on 12-28-2022 MCV (RBC) [Entitic vol] 92.0 fL 81-99 [facility] Hematocrit Auto (Bld) [Volum e fraction]Ordered By: Dr. Wilks on 12-28-2022 Hematocrit (Bld) [Volume fraction] 38.0 % 37-47 [facility] Laboratory - Chemistry and C hemistry - challengeOrdered By: Dr. Wilks on 12-28-2022 CO2 [Moles/Vol] 26.0 mmol/L 21.0-32.0 [facility] Urea nitrogen/Creatinine [Mass ratio] 30.6 mg/mg 10-20 [facility] Laboratory - Hematology and Cell countsOrdered By: Dr. Wilks on 12-28-2022 Erythrocyte distribution width (RBC) [Entitic vol] 57.1 fL 35.1-43.9 [facility] Erythrocyte distribution width (RBC) [Ratio] 17.2 % 11.6-14.6 [facility] MCH (RBC) [Entitic mass] 28.3 pg 27.0-32.0 [facility] MCHC Auto (RBC) [Mass/Vol]Or dered By: Dr. Wilks on 12-28-2022 MCHC (RBC) [Mass/Vol] 30.8 g/dL 32-36 [facility] No Panel InformationOrdered By: Dr. Wilks on 12-28-2022 Estimated GFR (MDRD) Amer 96 mL/min >60 [facility] Comment on above: GFR Calc Estimated GFR (MDRD) Non-Af Amer 80 mL/min >60 [facility] Comment on above: Non- GFR Calc Platelets bldOrdered By: Dr. Wilks on 12-28-2022 Platelets (Bld) [#/Vol] 254 10*3/uL 150-450 [facility] Serum or plasma calcium chay urement (mass/volume)Ordered By: Dr. Wilks on 12-28-2022 Calcium [Mass/Vol] 9.2 mg/dL 8.5-10.1 [facility] Serum or plasma creatinine m easurement (mass/volume)Ordered By: Dr. Wilks on 12-28-2022 Creatinine [Mass/Vol] 0.75 mg/dL 0.55-1.02 [facility] Comment on above: The validity of the calculated GFR & GFRAA in patients over 70 years has not been determined. Clinical correlation is essential. Serum or plasma urea nitroge n measurement (mass/volume)Ordered By: Dr. Wilks on 12-28-2022 Urea nitrogen [Mass/Vol] 23 mg/dL 7-18 [facility] Thin prep Papanicolaou smear with manual screeningOrdered By: Dr. Wilks on 12-28-2022 Thin prep Papanicolaou smear with manual screening 7 5-15 [facility] Basophil percentageOrdered B y: Dr. Wilks on 11-30-2022 Chloride [Moles/Vol] 107 mmol/L 98-107 [facility] Glucose [Mass/Vol] 154 mg/dL 74-106 [facility] Comment on above: Fasting Glucose resu lt greater than or equal to 126 mg/dL suggests DIABETES MELLITUS per A.D.A. criteria. Potassium [Moles/Vol] 4.0 mmol/L 3.5-5.1 [facility] Sodium [Moles/Vol] 139 mmol/L 136-145 [facility] WBC (Bld) [#/Vol] 7.4 10*3/uL 4.4-11.0 [facility] Blood erythrocytes count (nu mber/volume)Ordered By: Dr. Wilks on 11-30-2022 RBC (Bld) [#/Vol] 4.25 10*6/uL 4.2-5.4 [facility] Blood hemoglobin measurement (mass/volume)Ordered By: Dr. Wilks on 11-30-2022 Hemoglobin (Bld) [Mass/Vol] 11.8 g/dL 12.0-15.0 [facility] Blood platelet mean volumeOr dered By: Dr. Wilks on 11-30-2022 Platelet mean volume (Bld) [Entitic vol] 10.3 fL 6.2-12.0 [facility] Determination of erythrocyte mean corpuscular volume (MCV)Ordered By: Dr. Wilks on 11-30-2022 MCV (RBC) [Entitic vol] 91.3 fL 81-99 [facility] Hematocrit Auto (Bld) [Volum e fraction]Ordered By: Dr. Wilks on 11-30-2022 Hematocrit (Bld) [Volume fraction] 38.8 % 37-47 [facility] Laboratory - Chemistry and C hemistry - challengeOrdered By: Dr. Wilks on 11-30-2022 CO2 [Moles/Vol] 27.0 mmol/L 21.0-32.0 [facility] Urea nitrogen/Creatinine [Mass ratio] 27.8 mg/mg 10-20 [facility] - Hematology and Cell countsOrdered By: Dr. Wilks on 11-30-2022 Erythrocyte distribution width (RBC) [Entitic vol] 55.3 fL 35.1-43.9 [facility] Erythrocyte distribution width (RBC) [Ratio] 16.7 % 11.6-14.6 [facility] MCH (RBC) [Entitic mass] 27.8 pg 27.0-32.0 [facility] MCHC Auto (RBC) [Mass/Vol]Or dered By: Dr. Wilks on 11-30-2022 MCHC (RBC) [Mass/Vol] 30.4 g/dL 32-36 [facility] No Panel InformationOrdered By: Dr. Wilks on 11-30-2022 Estimated GFR (MDRD) Amer 82 mL/min >60 [facility] Comment on above: GFR Calc Estimated GFR (MDRD) Non-Af Amer 68 mL/min >60 [facility] Comment on above: Non- GFR Calc Platelets bldOrdered By: Dr. Wilks on 11-30-2022 Platelets (Bld) [#/Vol] 320 10*3/uL 150-450 [facility] Serum or plasma calcium chay urement (mass/volume)Ordered By: Dr. Wilks on 11-30-2022 Calcium [Mass/Vol] 9.5 mg/dL 8.5-10.1 [facility] Serum or plasma creatinine m easurement (mass/volume)Ordered By: Dr. Wilks on 11-30-2022 Creatinine [Mass/Vol] 0.86 mg/dL 0.55-1.02 [facility] Comment on above: The validity of the calculated GFR & GFRAA in patients over 70 years has not been determined. Clinical correlation is essential. Serum or plasma urea nitroge n measurement (mass/volume)Ordered By: Dr. Wilks on 11-30-2022 Urea nitrogen [Mass/Vol] 24 mg/dL 7-18 [facility] Thin prep Papanicolaou smear with manual screeningOrdered By: Dr. Wilks on 11-30-2022 Thin prep Papanicolaou smear with manual screening 5 5-15 [facility] Basophil percentageOrdered B y: Dr. Wilks on 10-30-2022 Basophil percentage 115 mg/dL 74-106 [facility] Basophil percentage 137 mmol/L 136-145 [facility] Basophil percentage 4.2 mmol/L 3.5-5.1 [facility] Basophil percentage 104 mmol/L 98-107 [facility] Basophils (Bld) [#/Vol] 8.3 10*3/uL 4.4-11.0 [facility] Chloride [Moles/Vol] 104 mmol/L 98-107 [facility] Glucose [Mass/Vol] 115 mg/dL 74-106 [facility] Comment on above: Fasting Glucose resu lt from 100 to 125 mg/dL suggests IMPAIRED HOMEOSTASIS per A.D.A. criteria. Potassium [Moles/Vol] 4.2 mmol/L 3.5-5.1 [facility] Sodium [Moles/Vol] 137 mmol/L 136-145 [facility] WBC (Bld) [#/Vol] 8.3 10*3/uL 4.4-11.0 [facility] Blood erythrocytes count (nu mber/volume)Ordered By: Dr. Wilks on 10-30-2022 RBC (Bld) [#/Vol] 4.14 10*6/uL 4.2-5.4 [facility] Blood hemoglobin measurement (mass/volume)Ordered By: Dr. Wilks on 10-30-2022 Hemoglobin (Bld) [Mass/Vol] 11.6 g/dL 12.0-15.0 [facility] Blood platelet mean volumeOr dered By: Dr. Wilks on 10-30-2022 Platelet mean volume (Bld) [Entitic vol] 10.3 fL 6.2-12.0 [facility] Determination of erythrocyte mean corpuscular volume (MCV)Ordered By: Dr. Wilks on 10-30-2022 MCV (RBC) [Entitic vol] 88.2 fL 81-99 [facility] Hematocrit Auto (Bld) [Volum e fraction]Ordered By: Dr. Wilks on 10-30-2022 Hematocrit (Bld) [Volume fraction] 36.5 % 37-47 [facility] Laboratory - Chemistry and C hemistry - challengeOrdered By: Dr. Wilks on 10-30-2022 CO2 [Moles/Vol] 25.0 mmol/L 21.0-32.0 [facility] Urea nitrogen/Creatinine [Mass ratio] 27.9 mg/mg 10-20 [facility] - Hematology and Cell countsOrdered By: Dr. Wilks on 10-30-2022 Erythrocyte distribution width (RBC) [Entitic vol] 51.9 fL 35.1-43.9 [facility] Erythrocyte distribution width (RBC) [Ratio] 15.9 % 11.6-14.6 [facility] MCH (RBC) [Entitic mass] 28.0 pg 27.0-32.0 [facility] MCHC Auto (RBC) [Mass/Vol]Or dered By: Dr. Wilks on 10-30-2022 MCHC (RBC) [Mass/Vol] 31.8 g/dL 32-36 [facility] No Panel InformationOrdered By: Dr. Wilks on 10-30-2022 Estimated GFR (MDRD) Amer 83 mL/min >60 [facility] Comment on above: GFR Calc Estimated GFR (MDRD) Non-Af Amer 68 mL/min >60 [facility] Comment on above: Non- GFR Calc 28.0 pg 27.0-32.0 [facility] 15.9 % 11.6-14.6 [facility] 51.9 fl 35.1-43.9 [facility] 68 mL/min >60 [facility] 83 mL/min >60 [facility] 27.9 RATIO 10-20 [facility] 25.0 mmol/L 21.0-32.0 [facility] Platelets bldOrdered By: Dr. Wilks on 10-30-2022 Platelets (Bld) [#/Vol] 318 10*3/uL 150-450 [facility] Serum or plasma calcium chay urement (mass/volume)Ordered By: Dr. Wilks on 10-30-2022 Calcium [Mass/Vol] 9.5 mg/dL 8.5-10.1 [facility] Serum or plasma creatinine m easurement (mass/volume)Ordered By: Dr. Wilks on 10-30-2022 Creatinine [Mass/Vol] 0.86 mg/dL 0.55-1.02 [facility] Comment on above: The validity of the calculated GFR & GFRAA in patients over 70 years has not been determined. Clinical correlation is essential. Serum or plasma urea nitroge n measurement (mass/volume)Ordered By: Dr. Wilks on 10-30-2022 Urea nitrogen [Mass/Vol] 24 mg/dL 7-18 [facility] Thin prep Papanicolaou smear with manual screeningOrdered By: Dr. Wilks on 10-30-2022 Thin prep Papanicolaou smear with manual screening 8 5-15 [facility] Absolute lymphocyte countOrd ered By: Dr. Wilks on 10-17-2022 Lymphocytes Auto (Unsp spec) [#/Vol] 1.14 10*3/uL 0.83-4.51 [facility] Basophil percentageOrdered B y: Dr. Wilks on 10-17-2022 Basophil percentage 125 mg/dL 74-106 [facility] Basophil percentage 138 mmol/L 136-145 [facility] Basophil percentage 4.2 mmol/L 3.5-5.1 [facility] Basophil percentage 106 mmol/L 98-107 [facility] Basophils (Bld) [#/Vol] 7.9 10*3/uL 4.4-11.0 [facility] Basophils (Bld) [#/Vol] 5.8 10*3/uL 2.0-7.7 [facility] Basophils/100 WBC (Bld) 72.7 % 47-70 [facility] Basophils/100 WBC (Bld) 3.8 % 0-5 [facility] Basophils/100 WBC (Bld) 1.0 % 0-1 [facility] Chloride [Moles/Vol] 106 mmol/L 98-107 [facility] Eosinophils/100 WBC (Bld) 3.8 % 0-5 [facility] Glucose [Mass/Vol] 125 mg/dL 74-106 [facility] Comment on above: Fasting Glucose resu lt from 100 to 125 mg/dL suggests IMPAIRED HOMEOSTASIS per A.D.A. criteria. Neutrophils (Bld) [#/Vol] 5.8 10*3/uL 2.0-7.7 [facility] Neutrophils/100 WBC (Bld) 72.7 % 47-70 [facility] Potassium [Moles/Vol] 4.2 mmol/L 3.5-5.1 [facility] Sodium [Moles/Vol] 138 mmol/L 136-145 [facility] WBC (Bld) [#/Vol] 7.9 10*3/uL 4.4-11.0 [facility] Blood erythrocytes count (nu mber/volume)Ordered By: Dr. Wilks on 10-17-2022 RBC (Bld) [#/Vol] 4.58 10*6/uL 4.2-5.4 [facility] Blood hemoglobin measurement (mass/volume)Ordered By: Dr. Wilks on 10-17-2022 Hemoglobin (Bld) [Mass/Vol] 12.8 g/dL 12.0-15.0 [facility] Blood lymphocytes/100 leukoc ytesOrdered By: Dr. Wilks on 10-17-2022 Lymphocytes/100 WBC (Bld) 14.4 % 19-41 [facility] Blood monocytes/100 leukocyt esOrdered By: Dr. Wilks on 10-17-2022 Monocytes/100 WBC (Bld) 7.8 % 0-10 [facility] Blood platelet mean volumeOr dered By: Dr. Wilks on 10-17-2022 Platelet mean volume (Bld) [Entitic vol] 10.8 fL 6.2-12.0 [facility] Determination of erythrocyte mean corpuscular volume (MCV)Ordered By: Dr. Wilks on 10-17-2022 MCV (RBC) [Entitic vol] 90.0 fL 81-99 [facility] Hematocrit Auto (Bld) [Volum e fraction]Ordered By: Dr. Wilks on 10-17-2022 Hematocrit (Bld) [Volume fraction] 41.2 % 37-47 [facility] Laboratory - Chemistry and C hemistry - challengeOrdered By: Dr. Wilks on 10-17-2022 CO2 [Moles/Vol] 26.0 mmol/L 21.0-32.0 [facility] Urea nitrogen/Creatinine [Mass ratio] 23.6 mg/mg 10-20 [facility] - Hematology and Cell countsOrdered By: Dr. Wilks on 10-17-2022 Erythrocyte distribution width (RBC) [Entitic vol] 54.4 fL 35.1-43.9 [facility] Erythrocyte distribution width (RBC) [Ratio] 16.7 % 11.6-14.6 [facility] Immature granulocytes/100 WBC (Bld) 0.300 % 0.0-0.9 [facility] Comment on above: IG% - Immature Granu locytes (promyelocytes, myelocytes and metamyelocytes) > 1% indicates that a LEFT SHIFT is Present. MCH (RBC) [Entitic mass] 27.9 pg 27.0-32.0 [facility] Nucleated RBC/100 WBC (Bld) [Ratio] 0 % 0-5 [facility] MCHC Auto (RBC) [Mass/Vol]Or dered By: Dr. Wilks on 10-17-2022 MCHC (RBC) [Mass/Vol] 31.1 g/dL 32-36 [facility] No Panel InformationOrdered By: Dr. Wilks on 10-17-2022 Estimated GFR (MDRD) Amer 84 mL/min >60 [facility] Comment on above: GFR Calc Estimated GFR (MDRD) Non-Af Amer 70 mL/min >60 [facility] Comment on above: Non- GFR Calc 27.9 pg 27.0-32.0 [facility] 16.7 % 11.6-14.6 [facility] 54.4 fl 35.1-43.9 [facility] 0.300 % 0.0-0.9 [facility] 0 % 0-5 [facility] 70 mL/min >60 [facility] 84 mL/min >60 [facility] 23.6 RATIO 10-20 [facility] 26.0 mmol/L 21.0-32.0 [facility] Platelets bldOrdered By: Dr. Wilks on 10-17-2022 Platelets (Bld) [#/Vol] 273 10*3/uL 150-450 [facility] Serum or plasma calcium chay urement (mass/volume)Ordered By: Dr. Wilks on 10-17-2022 Calcium [Mass/Vol] 10.0 mg/dL 8.5-10.1 [facility] Serum or plasma creatinine m easurement (mass/volume)Ordered By: Dr. Wilks on 10-17-2022 Creatinine [Mass/Vol] 0.85 mg/dL 0.55-1.02 [facility] Comment on above: The validity of the calculated GFR & GFRAA in patients over 70 years has not been determined. Clinical correlation is essential. Serum or plasma urea nitroge n measurement (mass/volume)Ordered By: Dr. Wilks on 10-17-2022 Urea nitrogen [Mass/Vol] 20 mg/dL 7-18 [facility] Thin prep Papanicolaou smear with manual screeningOrdered By: Dr. Wilks on 10-17-2022 Thin prep Papanicolaou smear with manual screening 6 -15 [facility] Absolute lymphocyte countOrd ered By: Dr. Wilks on 10-10-2022 Lymphocytes Auto (Unsp spec) [#/Vol] 1.40 10*3/uL 0.83-4.51 [facility] Basophil percentageOrdered B y: Dr. Wilks on 10-10-2022 Basophil percentage 112 mg/dL 74-106 [facility] Basophil percentage 140 mmol/L 136-145 [facility] Basophil percentage 4.4 mmol/L 3.5-5.1 [facility] Basophil percentage 106 mmol/L 98-107 [facility] Basophils (Bld) [#/Vol] 7.3 10*3/uL 4.4-11.0 [facility] Basophils (Bld) [#/Vol] 4.8 10*3/uL 2.0-7.7 [facility] Basophils/100 WBC (Bld) 65.6 % 47-70 [facility] Basophils/100 WBC (Bld) 5.0 % 0-5 [facility] Basophils/100 WBC (Bld) 0.8 % 0-1 [facility] Chloride [Moles/Vol] 106 mmol/L 98-107 [facility] Eosinophils/100 WBC (Bld) 5.0 % 0-5 [facility] Glucose [Mass/Vol] 112 mg/dL 74-106 [facility] Comment on above: Fasting Glucose resu lt from 100 to 125 mg/dL suggests IMPAIRED HOMEOSTASIS per A.D.A. criteria. Neutrophils (Bld) [#/Vol] 4.8 10*3/uL 2.0-7.7 [facility] Neutrophils/100 WBC (Bld) 65.6 % 47-70 [facility] Potassium [Moles/Vol] 4.4 mmol/L 3.5-5.1 [facility] Sodium [Moles/Vol] 140 mmol/L 136-145 [facility] WBC (Bld) [#/Vol] 7.3 10*3/uL 4.4-11.0 [facility] Blood erythrocytes count (nu mber/volume)Ordered By: Dr. Wilks on 10-10-2022 RBC (Bld) [#/Vol] 4.59 10*6/uL 4.2-5.4 [facility] Blood hemoglobin measurement (mass/volume)Ordered By: Dr. Wilks on 10-10-2022 Hemoglobin (Bld) [Mass/Vol] 12.8 g/dL 12.0-15.0 [facility] Blood lymphocytes/100 leukoc ytesOrdered By: Dr. Wilks on 10-10-2022 Lymphocytes/100 WBC (Bld) 19.1 % 19-41 [facility] Blood monocytes/100 leukocyt esOrdered By: Dr. Wilks on 10-10-2022 Monocytes/100 WBC (Bld) 9.1 % 0-10 [facility] Blood platelet mean volumeOr dered By: Dr. Wilks on 10-10-2022 Platelet mean volume (Bld) [Entitic vol] 10.6 fL 6.2-12.0 [facility] Determination of erythrocyte mean corpuscular volume (MCV)Ordered By: Dr. Wilks on 10-10-2022 MCV (RBC) [Entitic vol] 89.3 fL 81-99 [facility] Hematocrit Auto (Bld) [Volum e fraction]Ordered By: Dr. Wilks on 10-10-2022 Hematocrit (Bld) [Volume fraction] 41.0 % 37-47 [facility] - Chemistry and C hemistry - challengeOrdered By: Dr. Wilks on 10-10-2022 CO2 [Moles/Vol] 29.0 mmol/L 21.0-32.0 [facility] Urea nitrogen/Creatinine [Mass ratio] 25.5 mg/mg 10-20 [facility] - Hematology and Cell countsOrdered By: Dr. Wilks on 10-10-2022 Erythrocyte distribution width (RBC) [Entitic vol] 53.8 fL 35.1-43.9 [facility] Erythrocyte distribution width (RBC) [Ratio] 16.6 % 11.6-14.6 [facility] Immature granulocytes/100 WBC (Bld) 0.400 % 0.0-0.9 [facility] Comment on above: IG% - Immature Granu locytes (promyelocytes, myelocytes and metamyelocytes) > 1% indicates that a LEFT SHIFT is Present. MCH (RBC) [Entitic mass] 27.9 pg 27.0-32.0 [facility] Nucleated RBC/100 WBC (Bld) [Ratio] 0 % 0-5 [facility] MCHC Auto (RBC) [Mass/Vol]Or dered By: Dr. Wilks on 10-10-2022 MCHC (RBC) [Mass/Vol] 31.2 g/dL 32-36 [facility] No Panel InformationOrdered By: Dr. Wilks on 10-10-2022 Estimated GFR (MDRD) Amer 87 mL/min >60 [facility] Comment on above: GFR Calc Estimated GFR (MDRD) Non-Af Amer 72 mL/min >60 [facility] Comment on above: Non- GFR Calc 27.9 pg 27.0-32.0 [facility] 16.6 % 11.6-14.6 [facility] 53.8 fl 35.1-43.9 [facility] 0.400 % 0.0-0.9 [facility] 0 % 0-5 [facility] 72 mL/min >60 [facility] 87 mL/min >60 [facility] 25.5 RATIO 10-20 [facility] 29.0 mmol/L 21.0-32.0 [facility] Platelets bldOrdered By: Dr. Wilks on 10-10-2022 Platelets (Bld) [#/Vol] 287 10*3/uL 150-450 [facility] Serum or plasma calcium chay urement (mass/volume)Ordered By: Dr. Wilks on 10-10-2022 Calcium [Mass/Vol] 11.2 mg/dL 8.5-10.1 [facility] Serum or plasma creatinine m easurement (mass/volume)Ordered By: Dr. Wilks on 10-10-2022 Creatinine [Mass/Vol] 0.82 mg/dL 0.55-1.02 [facility] Comment on above: The validity of the calculated GFR & GFRAA in patients over 70 years has not been determined. Clinical correlation is essential. Serum or plasma urea nitroge n measurement (mass/volume)Ordered By: Dr. Wilks on 10-10-2022 Urea nitrogen [Mass/Vol] 21 mg/dL 7-18 [facility] Thin prep Papanicolaou smear with manual screeningOrdered By: Dr. Wilks on 10-10-2022 Thin prep Papanicolaou smear with manual screening 5 5-15 [facility] No Panel InformationOrdered By: Dr. Wilks on 10-04-2022 Ionized Calcium 6.5 mg/dL 4.5-5.6 [facility] Comment on above: Performed at: - [address] [id number] Director: Alexis Thomas PhD, Phone: [phone] Parathyroid Hormone (Intact) 90.9 pg/mL 18.4-80.1 [facility] 90.9 pg/mL 18.4-80.1 [facility] 6.5 mg/dL 4.5-5.6 [facility] Absolute lymphocyte countOrd ered By: Dr. Wilks on 10-03-2022 Lymphocytes Auto (Unsp spec) [#/Vol] 1.55 10*3/uL 0.83-4.51 [facility] Basophil percentageOrdered B y: Dr. Wilks on 10-03-2022 Basophil percentage 111 mg/dL 74-106 [facility] Basophil percentage 142 mmol/L 136-145 [facility] Basophil percentage 4.4 mmol/L 3.5-5.1 [facility] Basophil percentage 111 mmol/L 98-107 [facility] Basophils (Bld) [#/Vol] 8.1 10*3/uL 4.4-11.0 [facility] Basophils (Bld) [#/Vol] 5.3 10*3/uL 2.0-7.7 [facility] Basophils/100 WBC (Bld) 66.0 % 47-70 [facility] Basophils/100 WBC (Bld) 5.1 % 0-5 [facility] Basophils/100 WBC (Bld) 1.0 % 0-1 [facility] Chloride [Moles/Vol] 111 mmol/L 98-107 [facility] Eosinophils/100 WBC (Bld) 5.1 % 0-5 [facility] Glucose [Mass/Vol] 111 mg/dL 74-106 [facility] Comment on above: Fasting Glucose resu lt from 100 to 125 mg/dL suggests IMPAIRED HOMEOSTASIS per A.D.A. criteria. Neutrophils (Bld) [#/Vol] 5.3 10*3/uL 2.0-7.7 [facility] Neutrophils/100 WBC (Bld) 66.0 % 47-70 [facility] Potassium [Moles/Vol] 4.4 mmol/L 3.5-5.1 [facility] Comment on above: Slight Hemolysis, Re sult may be falsely increased. Sodium [Moles/Vol] 142 mmol/L 136-145 [facility] WBC (Bld) [#/Vol] 8.1 10*3/uL 4.4-11.0 [facility] Blood erythrocytes count (nu mber/volume)Ordered By: Dr. Wilks on 10-03-2022 RBC (Bld) [#/Vol] 4.70 10*6/uL 4.2-5.4 [facility] Blood hemoglobin measurement (mass/volume)Ordered By: Dr. Wilks on 10-03-2022 Hemoglobin (Bld) [Mass/Vol] 12.9 g/dL 12.0-15.0 [facility] Blood lymphocytes/100 leukoc ytesOrdered By: Dr. Wilks on 10-03-2022 Lymphocytes/100 WBC (Bld) 19.2 % 19-41 [facility] Blood monocytes/100 leukocyt esOrdered By: Dr. Wilks on 10-03-2022 Monocytes/100 WBC (Bld) 8.5 % 0-10 [facility] Blood platelet mean volumeOr dered By: Dr. Wilks on 10-03-2022 Platelet mean volume (Bld) [Entitic vol] 10.7 fL 6.2-12.0 [facility] Determination of erythrocyte mean corpuscular volume (MCV)Ordered By: Dr. Wilks on 10-03-2022 MCV (RBC) [Entitic vol] 91.1 fL 81-99 [facility] Hematocrit Auto (Bld) [Volum e fraction]Ordered By: Dr. Wliks on 10-03-2022 Hematocrit (Bld) [Volume fraction] 42.8 % 37-47 [facility] - Chemistry and C hemistry - challengeOrdered By: Dr. Wilks on 10-03-2022 CO2 [Moles/Vol] 24.0 mmol/L 21.0-32.0 [facility] Urea nitrogen/Creatinine [Mass ratio] 23.6 mg/mg 10-20 [facility] - Hematology and Cell countsOrdered By: Dr. Wilks on 10-03-2022 Erythrocyte distribution width (RBC) [Entitic vol] 55.8 fL 35.1-43.9 [facility] Erythrocyte distribution width (RBC) [Ratio] 16.4 % 11.6-14.6 [facility] Immature granulocytes/100 WBC (Bld) 0.200 % 0.0-0.9 [facility] Comment on above: IG% - Immature Granu locytes (promyelocytes, myelocytes and metamyelocytes) > 1% indicates that a LEFT SHIFT is Present. MCH (RBC) [Entitic mass] 27.4 pg 27.0-32.0 [facility] Nucleated RBC/100 WBC (Bld) [Ratio] 0 % 0-5 [facility] MCHC Auto (RBC) [Mass/Vol]Or dered By: Dr. Wilks on 10-03-2022 MCHC (RBC) [Mass/Vol] 30.1 g/dL 32-36 [facility] No Panel InformationOrdered By: Dr. Wilks on 10-03-2022 Estimated GFR (MDRD) Amer 89 mL/min >60 [facility] Comment on above: GFR Calc Estimated GFR (MDRD) Non-Af Amer 74 mL/min >60 [facility] Comment on above: Non- GFR Calc 27.4 pg 27.0-32.0 [facility] 16.4 % 11.6-14.6 [facility] 55.8 fl 35.1-43.9 [facility] 0.200 % 0.0-0.9 [facility] 0 % 0-5 [facility] 74 mL/min >60 [facility] 89 mL/min >60 [facility] 23.6 RATIO 10-20 [facility] 24.0 mmol/L 21.0-32.0 [facility] Platelets bldOrdered By: Dr. Wilks on 10-03-2022 Platelets (Bld) [#/Vol] 312 10*3/uL 150-450 [facility] Serum or plasma calcium chay urement (mass/volume)Ordered By: Dr. Wilks on 10-03-2022 Calcium [Mass/Vol] 11.1 mg/dL 8.5-10.1 [facility] Serum or plasma creatinine m easurement (mass/volume)Ordered By: Dr. Wilks on 10-03-2022 Creatinine [Mass/Vol] 0.80 mg/dL 0.55-1.02 [facility] Comment on above: The validity of the calculated GFR & GFRAA in patients over 70 years has not been determined. Clinical correlation is essential. Serum or plasma urea nitroge n measurement (mass/volume)Ordered By: Dr. Wilks on 10-03-2022 Urea nitrogen [Mass/Vol] 19 mg/dL 7-18 [facility] Thin prep Papanicolaou smear with manual screeningOrdered By: Dr. Wilks on 10-03-2022 Thin prep Papanicolaou smear with manual screening 7 5-15 [facility] Absolute lymphocyte countOrd ered By: Dr. Wilks on 09-26-2022 Lymphocytes Auto (Unsp spec) [#/Vol] 1.47 10*3/uL 0.83-4.51 [facility] Basophil percentageOrdered B y: Dr. Wilks on 09-26-2022 Basophil percentage 116 mg/dL 74-106 [facility] Basophil percentage 139 mmol/L 136-145 [facility] Basophil percentage 4.0 mmol/L 3.5-5.1 [facility] Basophil percentage 106 mmol/L 98-107 [facility] Basophils (Bld) [#/Vol] 8.4 10*3/uL 4.4-11.0 [facility] Basophils (Bld) [#/Vol] 5.5 10*3/uL 2.0-7.7 [facility] Basophils/100 WBC (Bld) 65.5 % 47-70 [facility] Basophils/100 WBC (Bld) 6.2 % 0-5 [facility] Basophils/100 WBC (Bld) 0.8 % 0-1 [facility] Chloride [Moles/Vol] 106 mmol/L 98-107 [facility] Eosinophils/100 WBC (Bld) 6.2 % 0-5 [facility] Glucose [Mass/Vol] 116 mg/dL 74-106 [facility] Comment on above: Fasting Glucose resu lt from 100 to 125 mg/dL suggests IMPAIRED HOMEOSTASIS per A.D.A. criteria. Neutrophils (Bld) [#/Vol] 5.5 10*3/uL 2.0-7.7 [facility] Neutrophils/100 WBC (Bld) 65.5 % 47-70 [facility] Potassium [Moles/Vol] 4.0 mmol/L 3.5-5.1 [facility] Sodium [Moles/Vol] 139 mmol/L 136-145 [facility] WBC (Bld) [#/Vol] 8.4 10*3/uL 4.4-11.0 [facility] Blood erythrocytes count (nu mber/volume)Ordered By: Dr. Wilks on 09-26-2022 RBC (Bld) [#/Vol] 4.33 10*6/uL 4.2-5.4 [facility] Blood hemoglobin measurement (mass/volume)Ordered By: Dr. Wilks on 09-26-2022 Hemoglobin (Bld) [Mass/Vol] 11.9 g/dL 12.0-15.0 [facility] Blood lymphocytes/100 leukoc ytesOrdered By: Dr. Wilks on 09-26-2022 Lymphocytes/100 WBC (Bld) 17.5 % 19-41 [facility] Blood monocytes/100 leukocyt esOrdered By: Dr. Wilks on 09-26-2022 Monocytes/100 WBC (Bld) 9.4 % 0-10 [facility] Blood platelet mean volumeOr dered By: Dr. Wilks on 09-26-2022 Platelet mean volume (Bld) [Entitic vol] 10.8 fL 6.2-12.0 [facility] Determination of erythrocyte mean corpuscular volume (MCV)Ordered By: Dr. Wilks on 09-26-2022 MCV (RBC) [Entitic vol] 89.8 fL 81-99 [facility] Hematocrit Auto (Bld) [Volum e fraction]Ordered By: Dr. Wilks on 09-26-2022 Hematocrit (Bld) [Volume fraction] 38.9 % 37-47 [facility] - Chemistry and C hemistry - challengeOrdered By: Dr. Wilks on 09-26-2022 CO2 [Moles/Vol] 28.0 mmol/L 21.0-32.0 [facility] Urea nitrogen/Creatinine [Mass ratio] 24.9 mg/mg 10-20 [facility] - Hematology and Cell countsOrdered By: Dr. Wilks on 09-26-2022 Erythrocyte distribution width (RBC) [Entitic vol] 54.1 fL 35.1-43.9 [facility] Erythrocyte distribution width (RBC) [Ratio] 16.5 % 11.6-14.6 [facility] Immature granulocytes/100 WBC (Bld) 0.600 % 0.0-0.9 [facility] Comment on above: IG% - Immature Granu locytes (promyelocytes, myelocytes and metamyelocytes) > 1% indicates that a LEFT SHIFT is Present. MCH (RBC) [Entitic mass] 27.5 pg 27.0-32.0 [facility] Nucleated RBC/100 WBC (Bld) [Ratio] 0 % 0-5 [facility] MCHC Auto (RBC) [Mass/Vol]Or dered By: Dr. Wilks on 09-26-2022 MCHC (RBC) [Mass/Vol] 30.6 g/dL 32-36 [facility] No Panel InformationOrdered By: Dr. Wilks on 09-26-2022 Estimated GFR (MDRD) Amer 95 mL/min >60 [facility] Comment on above: GFR Calc Estimated GFR (MDRD) Non-Af Amer 78 mL/min >60 [facility] Comment on above: Non- GFR Calc 27.5 pg 27.0-32.0 [facility] 16.5 % 11.6-14.6 [facility] 54.1 fl 35.1-43.9 [facility] 0.600 % 0.0-0.9 [facility] 0 % 0-5 [facility] 78 mL/min >60 [facility] 95 mL/min >60 [facility] 24.9 RATIO 10-20 [facility] 28.0 mmol/L 21.0-32.0 [facility] Platelets bldOrdered By: Dr. Wilks on 09-26-2022 Platelets (Bld) [#/Vol] 277 10*3/uL 150-450 [facility] Serum or plasma calcium chay urement (mass/volume)Ordered By: Dr. Wilks on 09-26-2022 Calcium [Mass/Vol] 10.8 mg/dL 8.5-10.1 [facility] Serum or plasma creatinine m easurement (mass/volume)Ordered By: Dr. Wilks on 09-26-2022 Creatinine [Mass/Vol] 0.76 mg/dL 0.55-1.02 [facility] Comment on above: The validity of the calculated GFR & GFRAA in patients over 70 years has not been determined. Clinical correlation is essential. Serum or plasma urea nitroge n measurement (mass/volume)Ordered By: Dr. Wilks on 09-26-2022 Urea nitrogen [Mass/Vol] 19 mg/dL 7-18 [facility] Thin prep Papanicolaou smear with manual screeningOrdered By: Dr. Wilks on 09-26-2022 Thin prep Papanicolaou smear with manual screening 5 5-15 [facility] Absolute lymphocyte countOrd ered By: Dr. Wilks on 09-19-2022 Lymphocytes Auto (Unsp spec) [#/Vol] 1.24 10*3/uL 0.83-4.51 [facility] Basophil percentageOrdered B y: Dr. Wilks on 09-19-2022 Basophil percentage 113 mg/dL 74-106 [facility] Basophil percentage 140 mmol/L 136-145 [facility] Basophil percentage 3.9 mmol/L 3.5-5.1 [facility] Basophil percentage 107 mmol/L 98-107 [facility] Basophils (Bld) [#/Vol] 8.0 10*3/uL 4.4-11.0 [facility] Basophils (Bld) [#/Vol] 5.5 10*3/uL 2.0-7.7 [facility] Basophils/100 WBC (Bld) 68.6 % 47-70 [facility] Basophils/100 WBC (Bld) 5.6 % 0-5 [facility] Basophils/100 WBC (Bld) 0.9 % 0-1 [facility] Chloride [Moles/Vol] 107 mmol/L 98-107 [facility] Eosinophils/100 WBC (Bld) 5.6 % 0-5 [facility] Glucose [Mass/Vol] 113 mg/dL 74-106 [facility] Comment on above: Fasting Glucose resu lt from 100 to 125 mg/dL suggests IMPAIRED HOMEOSTASIS per A.D.A. criteria. Neutrophils (Bld) [#/Vol] 5.5 10*3/uL 2.0-7.7 [facility] Neutrophils/100 WBC (Bld) 68.6 % 47-70 [facility] Potassium [Moles/Vol] 3.9 mmol/L 3.5-5.1 [facility] Sodium [Moles/Vol] 140 mmol/L 136-145 [facility] WBC (Bld) [#/Vol] 8.0 10*3/uL 4.4-11.0 [facility] Blood erythrocytes count (nu mber/volume)Ordered By: Dr. Wilks on 09-19-2022 RBC (Bld) [#/Vol] 4.38 10*6/uL 4.2-5.4 [facility] Blood hemoglobin measurement (mass/volume)Ordered By: Dr. Wilks on 09-19-2022 Hemoglobin (Bld) [Mass/Vol] 12.2 g/dL 12.0-15.0 [facility] Blood lymphocytes/100 leukoc ytesOrdered By: Dr. Wilks on 09-19-2022 Lymphocytes/100 WBC (Bld) 15.5 % 19-41 [facility] Blood monocytes/100 leukocyt esOrdered By: Dr. Wilks on 09-19-2022 Monocytes/100 WBC (Bld) 9.1 % 0-10 [facility] Blood platelet mean volumeOr dered By: Dr. Wilks on 09-19-2022 Platelet mean volume (Bld) [Entitic vol] 11.2 fL 6.2-12.0 [facility] Determination of erythrocyte mean corpuscular volume (MCV)Ordered By: Dr. Wilks on 09-19-2022 MCV (RBC) [Entitic vol] 90.9 fL 81-99 [facility] Hematocrit Auto (Bld) [Volum e fraction]Ordered By: Dr. iWlks on 09-19-2022 Hematocrit (Bld) [Volume fraction] 39.8 % 37-47 [facility] - Chemistry and C hemistry - challengeOrdered By: Dr. Wilks on 09-19-2022 CO2 [Moles/Vol] 27.0 mmol/L 21.0-32.0 [facility] Urea nitrogen/Creatinine [Mass ratio] 25.8 mg/mg 10- [facility] - Hematology and Cell countsOrdered By: Dr. Wilks on 09-19-2022 Erythrocyte distribution width (RBC) [Entitic vol] 54.8 fL 35.1-43.9 [facility] Erythrocyte distribution width (RBC) [Ratio] 16.4 % 11.6-14.6 [facility] Immature granulocytes/100 WBC (Bld) 0.300 % 0.0-0.9 [facility] Comment on above: IG% - Immature Granu locytes (promyelocytes, myelocytes and metamyelocytes) > 1% indicates that a LEFT SHIFT is Present. MCH (RBC) [Entitic mass] 27.9 pg 27.0-32.0 [facility] Nucleated RBC/100 WBC (Bld) [Ratio] 0 % 0-5 [facility] MCHC Auto (RBC) [Mass/Vol]Or dered By: Dr. Wilks on 09-19-2022 MCHC (RBC) [Mass/Vol] 30.7 g/dL 32-36 [facility] No Panel InformationOrdered By: Dr. Wilks on 09-19-2022 Estimated GFR (MDRD) Amer 88 mL/min >60 [facility] Comment on above: GFR Calc Estimated GFR (MDRD) Non-Af Amer 73 mL/min >60 [facility] Comment on above: Non- GFR Calc 27.9 pg 27.0-32.0 [facility] 16.4 % 11.6-14.6 [facility] 54.8 fl 35.1-43.9 [facility] 0.300 % 0.0-0.9 [facility] 0 % 0-5 [facility] 73 mL/min >60 [facility] 88 mL/min >60 [facility] 25.8 RATIO 10- [facility] 27.0 mmol/L 21.0-32.0 [facility] Platelets bldOrdered By: Dr. Wilks on 09-19-2022 Platelets (Bld) [#/Vol] 299 10*3/uL 150-450 [facility] Serum or plasma calcium chay urement (mass/volume)Ordered By: Dr. Wilks on 09-19-2022 Calcium [Mass/Vol] 10.3 mg/dL 8.5-10.1 [facility] Serum or plasma creatinine m easurement (mass/volume)Ordered By: Dr. Wilks on 09-19-2022 Creatinine [Mass/Vol] 0.81 mg/dL 0.55-1.02 [facility] Comment on above: The validity of the calculated GFR & GFRAA in patients over 70 years has not been determined. Clinical correlation is essential. Serum or plasma urea nitroge n measurement (mass/volume)Ordered By: Dr. Wilks on 09-19-2022 Urea nitrogen [Mass/Vol] 21 mg/dL 7-18 [facility] Thin prep Papanicolaou smear with manual screeningOrdered By: Dr. Wilks on 09-19-2022 Thin prep Papanicolaou smear with manual screening 6 5-15 [facility] Absolute lymphocyte countOrd ered By: Dr. Wilks on 09-12-2022 Lymphocytes Auto (Unsp spec) [#/Vol] 1.68 10*3/uL 0.83-4.51 [facility] Basophil percentageOrdered B y: Dr. Wilks on 09-12-2022 Basophil percentage 114 mg/dL 74-106 [facility] Basophil percentage 139 mmol/L 136-145 [facility] Basophil percentage 4.4 mmol/L 3.5-5.1 [facility] Basophil percentage 110 mmol/L 98-107 [facility] Basophils (Bld) [#/Vol] 8.2 10*3/uL 4.4-11.0 [facility] Basophils (Bld) [#/Vol] 5.3 10*3/uL 2.0-7.7 [facility] Basophils/100 WBC (Bld) 64.6 % 47-70 [facility] Basophils/100 WBC (Bld) 5.0 % 0-5 [facility] Basophils/100 WBC (Bld) 1.1 % 0-1 [facility] Chloride [Moles/Vol] 110 mmol/L 98-107 [facility] Eosinophils/100 WBC (Bld) 5.0 % 0-5 [facility] Glucose [Mass/Vol] 114 mg/dL 74-106 [facility] Comment on above: Fasting Glucose resu lt from 100 to 125 mg/dL suggests IMPAIRED HOMEOSTASIS per A.D.A. criteria. Neutrophils (Bld) [#/Vol] 5.3 10*3/uL 2.0-7.7 [facility] Neutrophils/100 WBC (Bld) 64.6 % 47-70 [facility] Potassium [Moles/Vol] 4.4 mmol/L 3.5-5.1 [facility] Sodium [Moles/Vol] 139 mmol/L 136-145 [facility] WBC (Bld) [#/Vol] 8.2 10*3/uL 4.4-11.0 [facility] Blood erythrocytes count (nu mber/volume)Ordered By: Dr. Wilks on 09-12-2022 RBC (Bld) [#/Vol] 4.36 10*6/uL 4.2-5.4 [facility] Blood hemoglobin measurement (mass/volume)Ordered By: Dr. Wilks on 09-12-2022 Hemoglobin (Bld) [Mass/Vol] 12.0 g/dL 12.0-15.0 [facility] Blood lymphocytes/100 leukoc ytesOrdered By: Dr. Wilks on 09-12-2022 Lymphocytes/100 WBC (Bld) 20.5 % 19-41 [facility] Blood monocytes/100 leukocyt esOrdered By: Dr. Wilks on 09-12-2022 Monocytes/100 WBC (Bld) 8.3 % 0-10 [facility] Blood platelet mean volumeOr dered By: Dr. Wilks on 09-12-2022 Platelet mean volume (Bld) [Entitic vol] 10.7 fL 6.2-12.0 [facility] Determination of erythrocyte mean corpuscular volume (MCV)Ordered By: Dr. Wilks on 09-12-2022 MCV (RBC) [Entitic vol] 90.8 fL 81-99 [facility] Hematocrit Auto (Bld) [Volum e fraction]Ordered By: Dr. Wilks on 09-12-2022 Hematocrit (Bld) [Volume fraction] 39.6 % 37-47 [facility] - Chemistry and C hemistry - challengeOrdered By: Dr. Wilks on 09-12-2022 CO2 [Moles/Vol] 25.0 mmol/L 21.0-32.0 [facility] Urea nitrogen/Creatinine [Mass ratio] 29.7 mg/mg 10-20 [facility] - Hematology and Cell countsOrdered By: Dr. Wilks on 09-12-2022 Erythrocyte distribution width (RBC) [Entitic vol] 54.4 fL 35.1-43.9 [facility] Erythrocyte distribution width (RBC) [Ratio] 16.3 % 11.6-14.6 [facility] Immature granulocytes/100 WBC (Bld) 0.500 % 0.0-0.9 [facility] Comment on above: IG% - Immature Granu locytes (promyelocytes, myelocytes and metamyelocytes) > 1% indicates that a LEFT SHIFT is Present. MCH (RBC) [Entitic mass] 27.5 pg 27.0-32.0 [facility] Nucleated RBC/100 WBC (Bld) [Ratio] 0 % 0-5 [facility] MCHC Auto (RBC) [Mass/Vol]Or dered By: Dr. Wilks on 09-12-2022 MCHC (RBC) [Mass/Vol] 30.3 g/dL 32-36 [facility] No Panel InformationOrdered By: Dr. Wilks on 09-12-2022 Estimated GFR (MDRD) Amer 98 mL/min >60 [facility] Comment on above: GFR Calc Estimated GFR (MDRD) Non-Af Amer 81 mL/min >60 [facility] Comment on above: Non- GFR Calc 27.5 pg 27.0-32.0 [facility] 16.3 % 11.6-14.6 [facility] 54.4 fl 35.1-43.9 [facility] 0.500 % 0.0-0.9 [facility] 0 % 0-5 [facility] 81 mL/min >60 [facility] 98 mL/min >60 [facility] 29.7 RATIO 10-20 [facility] 25.0 mmol/L 21.0-32.0 [facility] Platelets bldOrdered By: Dr. Wilks on 09-12-2022 Platelets (Bld) [#/Vol] 331 10*3/uL 150-450 [facility] Serum or plasma calcium chay urement (mass/volume)Ordered By: Dr. Wilks on 09-12-2022 Calcium [Mass/Vol] 10.7 mg/dL 8.5-10.1 [facility] Serum or plasma creatinine m easurement (mass/volume)Ordered By: Dr. Wilks on 09-12-2022 Creatinine [Mass/Vol] 0.74 mg/dL 0.55-1.02 [facility] Comment on above: The validity of the calculated GFR & GFRAA in patients over 70 years has not been determined. Clinical correlation is essential. Serum or plasma urea nitroge n measurement (mass/volume)Ordered By: Dr. Wilks on 09-12-2022 Urea nitrogen [Mass/Vol] 22 mg/dL 7-18 [facility] Thin prep Papanicolaou smear with manual screeningOrdered By: Dr. Wilks on 09-12-2022 Thin prep Papanicolaou smear with manual screening 4 5-15 [facility] Absolute lymphocyte countOrd ered By: Dr. Wilks on 09-05-2022 Lymphocytes Auto (Unsp spec) [#/Vol] 1.29 10*3/uL 0.83-4.51 [facility] Basophil percentageOrdered B y: Dr. Wilks on 09-05-2022 Basophil percentage 92 mg/dL 74-106 [facility] Basophil percentage 139 mmol/L 136-145 [facility] Basophil percentage 4.1 mmol/L 3.5-5.1 [facility] Basophil percentage 106 mmol/L 98-107 [facility] Basophils (Bld) [#/Vol] 7.3 10*3/uL 4.4-11.0 [facility] Basophils (Bld) [#/Vol] 4.9 10*3/uL 2.0-7.7 [facility] Basophils/100 WBC (Bld) 1.0 % 0-1 [facility] Basophils/100 WBC (Bld) 67.1 % 47-70 [facility] Basophils/100 WBC (Bld) 4.9 % 0-5 [facility] Chloride [Moles/Vol] 106 mmol/L 98-107 [facility] Eosinophils/100 WBC (Bld) 4.9 % 0-5 [facility] Glucose [Mass/Vol] 92 mg/dL 74-106 [facility] Neutrophils (Bld) [#/Vol] 4.9 10*3/uL 2.0-7.7 [facility] Neutrophils/100 WBC (Bld) 67.1 % 47-70 [facility] Potassium [Moles/Vol] 4.1 mmol/L 3.5-5.1 [facility] Sodium [Moles/Vol] 139 mmol/L 136-145 [facility] WBC (Bld) [#/Vol] 7.3 10*3/uL 4.4-11.0 [facility] Blood erythrocytes count (nu mber/volume)Ordered By: Dr. Wilks on 09-05-2022 RBC (Bld) [#/Vol] 4.37 10*6/uL 4.2-5.4 [facility] Blood hemoglobin measurement (mass/volume)Ordered By: Dr. Wilks on 09-05-2022 Hemoglobin (Bld) [Mass/Vol] 12.4 g/dL 12.0-15.0 [facility] Blood lymphocytes/100 leukoc ytesOrdered By: Dr. Wilks on 09-05-2022 Lymphocytes/100 WBC (Bld) 17.6 % 19-41 [facility] Blood monocytes/100 leukocyt esOrdered By: Dr. Wilks on 09-05-2022 Monocytes/100 WBC (Bld) 9.0 % 0-10 [facility] Blood platelet mean volumeOr dered By: Dr. Wilks on 09-05-2022 Platelet mean volume (Bld) [Entitic vol] 10.3 fL 6.2-12.0 [facility] Determination of erythrocyte mean corpuscular volume (MCV)Ordered By: Dr. Wilks on 09-05-2022 MCV (RBC) [Entitic vol] 90.4 fL 81-99 [facility] Hematocrit Auto (Bld) [Volum e fraction]Ordered By: Dr. Wilks on 09-05-2022 Hematocrit (Bld) [Volume fraction] 39.5 % 37-47 [facility] - Chemistry and C hemistry - challengeOrdered By: Dr. Wilks on 09-05-2022 CO2 [Moles/Vol] 27.0 mmol/L 21.0-32.0 [facility] Urea nitrogen/Creatinine [Mass ratio] 27.4 mg/mg 10-20 [facility] - Hematology and Cell countsOrdered By: Dr. Wilks on 09-05-2022 Erythrocyte distribution width (RBC) [Entitic vol] 53.8 fL 35.1-43.9 [facility] Erythrocyte distribution width (RBC) [Ratio] 16.1 % 11.6-14.6 [facility] Immature granulocytes/100 WBC (Bld) 0.400 % 0.0-0.9 [facility] Comment on above: IG% - Immature Granu locytes (promyelocytes, myelocytes and metamyelocytes) > 1% indicates that a LEFT SHIFT is Present. MCH (RBC) [Entitic mass] 28.4 pg 27.0-32.0 [facility] Nucleated RBC/100 WBC (Bld) [Ratio] 0 % 0-5 [facility] MCHC Auto (RBC) [Mass/Vol]Or dered By: Dr. Wilks on 09-05-2022 MCHC (RBC) [Mass/Vol] 31.4 g/dL 32-36 [facility] No Panel InformationOrdered By: Dr. Wilks on 09-05-2022 Estimated GFR (MDRD) Amer 81 mL/min >60 [facility] Comment on above: GFR Calc Estimated GFR (MDRD) Non-Af Amer 67 mL/min >60 [facility] Comment on above: Non- GFR Calc 28.4 pg 27.0-32.0 [facility] 16.1 % 11.6-14.6 [facility] 53.8 fl 35.1-43.9 [facility] 0.400 % 0.0-0.9 [facility] 0 % 0-5 [facility] 67 mL/min >60 [facility] 81 mL/min >60 [facility] 27.4 RATIO 10-20 [facility] 27.0 mmol/L 21.0-32.0 [facility] Platelets bldOrdered By: Dr. Wilks on 09-05-2022 Platelets (Bld) [#/Vol] 357 10*3/uL 150-450 [facility] Serum or plasma calcium chay urement (mass/volume)Ordered By: Dr. Wilks on 09-05-2022 Calcium [Mass/Vol] 11.1 mg/dL 8.5-10.1 [facility] Serum or plasma creatinine m easurement (mass/volume)Ordered By: Dr. Wilks on 09-05-2022 Creatinine [Mass/Vol] 0.88 mg/dL 0.55-1.02 [facility] Comment on above: The validity of the calculated GFR & GFRAA in patients over 70 years has not been determined. Clinical correlation is essential. Serum or plasma urea nitroge n measurement (mass/volume)Ordered By: Dr. Wilks on 09-05-2022 Urea nitrogen [Mass/Vol] 24 mg/dL 7-18 [facility] Thin prep Papanicolaou smear with manual screeningOrdered By: Dr. Wilks on 09-05-2022 Thin prep Papanicolaou smear with manual screening 6 5-15 [facility] Absolute lymphocyte countOrd ered By: Dr. Wilks on 08-29-2022 Lymphocytes Auto (Unsp spec) [#/Vol] 1.18 10*3/uL 0.83-4.51 [facility] Basophil percentageOrdered B y: Dr. Wilks on 08-29-2022 Basophil percentage 101 mg/dL 74-106 [facility] Basophil percentage 140 mmol/L 136-145 [facility] Basophil percentage 4.1 mmol/L 3.5-5.1 [facility] Basophil percentage 107 mmol/L 98-107 [facility] Basophils (Bld) [#/Vol] 6.7 10*3/uL 4.4-11.0 [facility] Basophils (Bld) [#/Vol] 4.3 10*3/uL 2.0-7.7 [facility] Basophils/100 WBC (Bld) 0.9 % 0-1 [facility] Basophils/100 WBC (Bld) 64.3 % 47-70 [facility] Basophils/100 WBC (Bld) 4.8 % 0-5 [facility] Chloride [Moles/Vol] 107 mmol/L 98-107 [facility] Eosinophils/100 WBC (Bld) 4.8 % 0-5 [facility] Glucose [Mass/Vol] 101 mg/dL 74-106 [facility] Comment on above: Fasting Glucose resu lt from 100 to 125 mg/dL suggests IMPAIRED HOMEOSTASIS per A.D.A. criteria. Neutrophils (Bld) [#/Vol] 4.3 10*3/uL 2.0-7.7 [facility] Neutrophils/100 WBC (Bld) 64.3 % 47-70 [facility] Potassium [Moles/Vol] 4.1 mmol/L 3.5-5.1 [facility] Sodium [Moles/Vol] 140 mmol/L 136-145 [facility] WBC (Bld) [#/Vol] 6.7 10*3/uL 4.4-11.0 [facility] Blood erythrocytes count (nu mber/volume)Ordered By: Dr. Wilks on 08-29-2022 RBC (Bld) [#/Vol] 4.08 10*6/uL 4.2-5.4 [facility] Blood hemoglobin measurement (mass/volume)Ordered By: Dr. Wilks on 08-29-2022 Hemoglobin (Bld) [Mass/Vol] 11.6 g/dL 12.0-15.0 [facility] Blood lymphocytes/100 leukoc ytesOrdered By: Dr. Wilks on 08-29-2022 Lymphocytes/100 WBC (Bld) 17.6 % 19-41 [facility] Blood monocytes/100 leukocyt esOrdered By: Dr. Wilks on 08-29-2022 Monocytes/100 WBC (Bld) 10.8 % 0-10 [facility] Blood platelet mean volumeOr dered By: Dr. Wilks on 01-03-2023 Platelet mean volume (Bld) [Entitic vol] 10.6 fL 6.2-12.0 [facility] Determination of erythrocyte mean corpuscular volume (MCV)Ordered By: Dr. Wilks on 08-29-2022 MCV (RBC) [Entitic vol] 91.4 fL 81-99 [facility] Hematocrit Auto (Bld) [Volum e fraction]Ordered By: Dr. Wilks on 08-29-2022 Hematocrit (Bld) [Volume fraction] 37.3 % 37-47 [facility] Laboratory - Chemistry and C hemistry - challengeOrdered By: Dr. Wilks on 08-29-2022 CO2 [Moles/Vol] 25.0 mmol/L 21.0-32.0 [facility] Urea nitrogen/Creatinine [Mass ratio] 19.1 mg/mg 10-20 [facility] Laboratory - Hematology and Cell countsOrdered By: Dr. Wilks on 08-29-2022 Erythrocyte distribution width (RBC) [Entitic vol] 55.7 fL 35.1-43.9 [facility] Erythrocyte distribution width (RBC) [Ratio] 16.4 % 11.6-14.6 [facility] Immature granulocytes/100 WBC (Bld) 1.600 % 0.0-0.9 [facility] Comment on above: IG% - Immature Granu locytes (promyelocytes, myelocytes and metamyelocytes) > 1% indicates that a LEFT SHIFT is Present. MCH (RBC) [Entitic mass] 28.4 pg 27.0-32.0 [facility] Nucleated RBC/100 WBC (Bld) [Ratio] 0 % 0-5 [facility] MCHC Auto (RBC) [Mass/Vol]Or dered By: Dr. Wilks on 08-29-2022 MCHC (RBC) [Mass/Vol] 31.1 g/dL 32-36 [facility] No Panel InformationOrdered By: Dr. Wilks on 08-29-2022 Estimated GFR (MDRD) Amer 108 mL/min >60 [facility] Comment on above: GFR Calc Estimated GFR (MDRD) Non-Af Amer 90 mL/min >60 [facility] Comment on above: Non- GFR Calc 28.4 pg 27.0-32.0 [facility] 16.4 % 11.6-14.6 [facility] 55.7 fl 35.1-43.9 [facility] 1.600 % 0.0-0.9 [facility] 0 % 0-5 [facility] 90 mL/min >60 [facility] 108 mL/min >60 [facility] 19.1 RATIO 10-20 [facility] 25.0 mmol/L 21.0-32.0 [facility] Platelets bldOrdered By: Dr. Wilks on 08-29-2022 Platelets (Bld) [#/Vol] 331 10*3/uL 150-450 [facility] Serum or plasma calcium chay urement (mass/volume)Ordered By: Dr. Wilks on 08-29-2022 Calcium [Mass/Vol] 10.3 mg/dL 8.5-10.1 [facility] Serum or plasma creatinine m easurement (mass/volume)Ordered By: Dr. Wilks on 08-29-2022 Creatinine [Mass/Vol] 0.68 mg/dL 0.55-1.02 [facility] Comment on above: The validity of the calculated GFR & GFRAA in patients over 70 years has not been determined. Clinical correlation is essential. Serum or plasma urea nitroge n measurement (mass/volume)Ordered By: Dr. Wilks on 08-29-2022 Urea nitrogen [Mass/Vol] 13 mg/dL 7-18 [facility] Thin prep Papanicolaou smear with manual screeningOrdered By: Dr. Wilks on 08-29-2022 Thin prep Papanicolaou smear with manual screening 8 5-15 [facility] Absolute lymphocyte countOrd ered By: Dr. Wilks on 08-22-2022 Lymphocytes Auto (Unsp spec) [#/Vol] 1.23 10*3/uL 0.83-4.51 [facility] Basophil percentageOrdered B y: Dr. Wliks on 08-22-2022 Basophil percentage 95 mg/dL 74-106 [facility] Basophil percentage 140 mmol/L 136-145 [facility] Basophil percentage 4.2 mmol/L 3.5-5.1 [facility] Basophil percentage 110 mmol/L 98-107 [facility] Basophils (Bld) [#/Vol] 6.5 10*3/uL 4.4-11.0 [facility] Basophils (Bld) [#/Vol] 4.2 10*3/uL 2.0-7.7 [facility] Basophils/100 WBC (Bld) 1.1 % 0-1 [facility] Basophils/100 WBC (Bld) 65.1 % 47-70 [facility] Basophils/100 WBC (Bld) 5.6 % 0-5 [facility] Chloride [Moles/Vol] 110 mmol/L 98-107 [facility] Eosinophils/100 WBC (Bld) 5.6 % 0-5 [facility] Glucose [Mass/Vol] 95 mg/dL 74-106 [facility] Neutrophils (Bld) [#/Vol] 4.2 10*3/uL 2.0-7.7 [facility] Neutrophils/100 WBC (Bld) 65.1 % 47-70 [facility] Potassium [Moles/Vol] 4.2 mmol/L 3.5-5.1 [facility] Sodium [Moles/Vol] 140 mmol/L 136-145 [facility] WBC (Bld) [#/Vol] 6.5 10*3/uL 4.4-11.0 [facility] Blood erythrocytes count (nu mber/volume)Ordered By: Dr. Wilks on 08-22-2022 RBC (Bld) [#/Vol] 4.19 10*6/uL 4.2-5.4 [facility] Blood hemoglobin measurement (mass/volume)Ordered By: Dr. Wilks on 08-22-2022 Hemoglobin (Bld) [Mass/Vol] 12.0 g/dL 12.0-15.0 [facility] Blood lymphocytes/100 leukoc ytesOrdered By: Dr. Wilks on 08-22-2022 Lymphocytes/100 WBC (Bld) 19.0 % 19-41 [facility] Blood monocytes/100 leukocyt esOrdered By: Dr. Wilks on 08-22-2022 Monocytes/100 WBC (Bld) 8.7 % 0-10 [facility] Blood platelet mean volumeOr dered By: Dr. Wilks on 08-22-2022 Platelet mean volume (Bld) [Entitic vol] 10.5 fL 6.2-12.0 [facility] Determination of erythrocyte mean corpuscular volume (MCV)Ordered By: Dr. Wilks on 08-22-2022 MCV (RBC) [Entitic vol] 92.8 fL 81-99 [facility] Hematocrit Auto (Bld) [Volum e fraction]Ordered By: Dr. Wilks on 08-22-2022 Hematocrit (Bld) [Volume fraction] 38.9 % 37-47 [facility] - Chemistry and C hemistry - challengeOrdered By: Dr. Wilks on 08-22-2022 CO2 [Moles/Vol] 26.0 mmol/L 21.0-32.0 [facility] Urea nitrogen/Creatinine [Mass ratio] 22.2 mg/mg 10-20 [facility] - Hematology and Cell countsOrdered By: Dr. Wilks on 08-22-2022 Erythrocyte distribution width (RBC) [Entitic vol] 56.8 fL 35.1-43.9 [facility] Erythrocyte distribution width (RBC) [Ratio] 16.5 % 11.6-14.6 [facility] Immature granulocytes/100 WBC (Bld) 0.500 % 0.0-0.9 [facility] Comment on above: IG% - Immature Granu locytes (promyelocytes, myelocytes and metamyelocytes) > 1% indicates that a LEFT SHIFT is Present. MCH (RBC) [Entitic mass] 28.6 pg 27.0-32.0 [facility] Nucleated RBC/100 WBC (Bld) [Ratio] 0 % 0-5 [facility] MCHC Auto (RBC) [Mass/Vol]Or dered By: Dr. Wilks on 08-22-2022 MCHC (RBC) [Mass/Vol] 30.8 g/dL 32-36 [facility] No Panel InformationOrdered By: Dr. Wilks on 08-22-2022 Estimated GFR (MDRD) Amer 101 mL/min >60 [facility] Comment on above: GFR Calc Estimated GFR (MDRD) Non-Af Amer 84 mL/min >60 [facility] Comment on above: Non- GFR Calc 28.6 pg 27.0-32.0 [facility] 16.5 % 11.6-14.6 [facility] 56.8 fl 35.1-43.9 [facility] 0.500 % 0.0-0.9 [facility] 0 % 0-5 [facility] 84 mL/min >60 [facility] 101 mL/min >60 [facility] 22.2 RATIO 10-20 [facility] 26.0 mmol/L 21.0-32.0 [facility] Platelets bldOrdered By: Dr. Wilks on 08-22-2022 Platelets (Bld) [#/Vol] 331 10*3/uL 150-450 [facility] Serum or plasma calcium chay urement (mass/volume)Ordered By: Dr. Wilks on 08-22-2022 Calcium [Mass/Vol] 10.9 mg/dL 8.5-10.1 [facility] Serum or plasma creatinine m easurement (mass/volume)Ordered By: Dr. Wilks on 08-22-2022 Creatinine [Mass/Vol] 0.72 mg/dL 0.55-1.02 [facility] Comment on above: The validity of the calculated GFR & GFRAA in patients over 70 years has not been determined. Clinical correlation is essential. Serum or plasma urea nitroge n measurement (mass/volume)Ordered By: Dr. Wilks on 08-22-2022 Urea nitrogen [Mass/Vol] 16 mg/dL 7-18 [facility] Thin prep Papanicolaou smear with manual screeningOrdered By: Dr. Wilks on 08-22-2022 Thin prep Papanicolaou smear with manual screening 4 5-15 [facility] Absolute lymphocyte countOrd ered By: Dr. Wilks on 08-15-2022 Lymphocytes Auto (Unsp spec) [#/Vol] 1.15 10*3/uL 0.83-4.51 [facility] Basophil percentageOrdered B y: Dr. Wilks on 08-15-2022 Basophil percentage 103 mg/dL 74-106 [facility] Basophil percentage 140 mmol/L 136-145 [facility] Basophil percentage 4.4 mmol/L 3.5-5.1 [facility] Basophil percentage 109 mmol/L 98-107 [facility] Basophils (Bld) [#/Vol] 8.2 10*3/uL 4.4-11.0 [facility] Basophils (Bld) [#/Vol] 5.9 10*3/uL 2.0-7.7 [facility] Basophils/100 WBC (Bld) 0.9 % 0-1 [facility] Basophils/100 WBC (Bld) 72.1 % 47-70 [facility] Basophils/100 WBC (Bld) 4.3 % 0-5 [facility] Chloride [Moles/Vol] 109 mmol/L 98-107 [facility] Eosinophils/100 WBC (Bld) 4.3 % 0-5 [facility] Glucose [Mass/Vol] 103 mg/dL 74-106 [facility] Comment on above: Fasting Glucose resu lt from 100 to 125 mg/dL suggests IMPAIRED HOMEOSTASIS per A.D.A. criteria. Neutrophils (Bld) [#/Vol] 5.9 10*3/uL 2.0-7.7 [facility] Neutrophils/100 WBC (Bld) 72.1 % 47-70 [facility] Potassium [Moles/Vol] 4.4 mmol/L 3.5-5.1 [facility] Sodium [Moles/Vol] 140 mmol/L 136-145 [facility] WBC (Bld) [#/Vol] 8.2 10*3/uL 4.4-11.0 [facility] Blood erythrocytes count (nu mber/volume)Ordered By: Dr. Wilks on 08-15-2022 RBC (Bld) [#/Vol] 3.99 10*6/uL 4.2-5.4 [facility] Blood hemoglobin measurement (mass/volume)Ordered By: Dr. Wilks on 08-15-2022 Hemoglobin (Bld) [Mass/Vol] 11.5 g/dL 12.0-15.0 [facility] Blood lymphocytes/100 leukoc ytesOrdered By: Dr. Wilks on 08-15-2022 Lymphocytes/100 WBC (Bld) 14.1 % 19-41 [facility] Blood monocytes/100 leukocyt esOrdered By: Dr. Wilks on 08-15-2022 Monocytes/100 WBC (Bld) 8.4 % 0-10 [facility] Blood platelet mean volumeOr dered By: Dr. Wilks on 08-15-2022 Platelet mean volume (Bld) [Entitic vol] 10.5 fL 6.2-12.0 [facility] Determination of erythrocyte mean corpuscular volume (MCV)Ordered By: Dr. Wilks on 08-15-2022 MCV (RBC) [Entitic vol] 95.0 fL 81-99 [facility] Hematocrit Auto (Bld) [Volum e fraction]Ordered By: Dr. Wilks on 08-15-2022 Hematocrit (Bld) [Volume fraction] 37.9 % 37-47 [facility] - Chemistry and C hemistry - challengeOrdered By: Dr. Wilks on 08-15-2022 CO2 [Moles/Vol] 28.0 mmol/L 21.0-32.0 [facility] Urea nitrogen/Creatinine [Mass ratio] 25.9 mg/mg 10-20 [facility] - Hematology and Cell countsOrdered By: Dr. Wilks on 08-15-2022 Erythrocyte distribution width (RBC) [Entitic vol] 58.8 fL 35.1-43.9 [facility] Erythrocyte distribution width (RBC) [Ratio] 16.8 % 11.6-14.6 [facility] Immature granulocytes/100 WBC (Bld) 0.200 % 0.0-0.9 [facility] Comment on above: IG% - Immature Granu locytes (promyelocytes, myelocytes and metamyelocytes) > 1% indicates that a LEFT SHIFT is Present. MCH (RBC) [Entitic mass] 28.8 pg 27.0-32.0 [facility] Nucleated RBC/100 WBC (Bld) [Ratio] 0 % 0-5 [facility] MCHC Auto (RBC) [Mass/Vol]Or dered By: Dr. Wilks on 08-15-2022 MCHC (RBC) [Mass/Vol] 30.3 g/dL 32-36 [facility] No Panel InformationOrdered By: Dr. Wilks on 08-15-2022 Estimated GFR (MDRD) Amer 99 mL/min >60 [facility] Comment on above: GFR Calc Estimated GFR (MDRD) Non-Af Amer 82 mL/min >60 [facility] Comment on above: Non- GFR Calc 28.8 pg 27.0-32.0 [facility] 16.8 % 11.6-14.6 [facility] 58.8 fl 35.1-43.9 [facility] 0.200 % 0.0-0.9 [facility] 0 % 0-5 [facility] 82 mL/min >60 [facility] 99 mL/min >60 [facility] 25.9 RATIO 10-20 [facility] 28.0 mmol/L 21.0-32.0 [facility] Platelets bldOrdered By: Dr. Wilks on 08-15-2022 Platelets (Bld) [#/Vol] 282 10*3/uL 150-450 [facility] Serum or plasma calcium chay urement (mass/volume)Ordered By: Dr. Wilks on 08-15-2022 Calcium [Mass/Vol] 11.0 mg/dL 8.5-10.1 [facility] Serum or plasma creatinine m easurement (mass/volume)Ordered By: Dr. Wilks on 08-15-2022 Creatinine [Mass/Vol] 0.73 mg/dL 0.55-1.02 [facility] Comment on above: The validity of the calculated GFR & GFRAA in patients over 70 years has not been determined. Clinical correlation is essential. Serum or plasma urea nitroge n measurement (mass/volume)Ordered By: Dr. Wilks on 08-15-2022 Urea nitrogen [Mass/Vol] 19 mg/dL 7-18 [facility] Thin prep Papanicolaou smear with manual screeningOrdered By: Dr. Wilks on 08-15-2022 Thin prep Papanicolaou smear with manual screening 3 5-15 [facility] Absolute lymphocyte countOrd ered By: Dr. Wilks on 08-08-2022 Lymphocytes Auto (Unsp spec) [#/Vol] 1.54 10*3/uL 0.83-4.51 [facility] Basophil percentageOrdered B y: Dr. Wilks on 08-08-2022 Basophil percentage 112 mg/dL 74-106 [facility] Basophil percentage 140 mmol/L 136-145 [facility] Basophil percentage 4.3 mmol/L 3.5-5.1 [facility] Basophil percentage 109 mmol/L 98-107 [facility] Basophils (Bld) [#/Vol] 8.5 10*3/uL 4.4-11.0 [facility] Basophils (Bld) [#/Vol] 5.8 10*3/uL 2.0-7.7 [facility] Basophils/100 WBC (Bld) 1.1 % 0-1 [facility] Basophils/100 WBC (Bld) 67.9 % 47-70 [facility] Basophils/100 WBC (Bld) 4.5 % 0-5 [facility] Chloride [Moles/Vol] 109 mmol/L 98-107 [facility] Eosinophils/100 WBC (Bld) 4.5 % 0-5 [facility] Glucose [Mass/Vol] 112 mg/dL 74-106 [facility] Comment on above: Fasting Glucose resu lt from 100 to 125 mg/dL suggests IMPAIRED HOMEOSTASIS per A.D.A. criteria. Neutrophils (Bld) [#/Vol] 5.8 10*3/uL 2.0-7.7 [facility] Neutrophils/100 WBC (Bld) 67.9 % 47-70 [facility] Potassium [Moles/Vol] 4.3 mmol/L 3.5-5.1 [facility] Sodium [Moles/Vol] 140 mmol/L 136-145 [facility] WBC (Bld) [#/Vol] 8.5 10*3/uL 4.4-11.0 [facility] Blood erythrocytes count (nu mber/volume)Ordered By: Dr. Wilks on 08-08-2022 RBC (Bld) [#/Vol] 4.26 10*6/uL 4.2-5.4 [facility] Blood hemoglobin measurement (mass/volume)Ordered By: Dr. Wilks on 08-08-2022 Hemoglobin (Bld) [Mass/Vol] 12.3 g/dL 12.0-15.0 [facility] Blood lymphocytes/100 leukoc ytesOrdered By: Dr. Wilks on 08-08-2022 Lymphocytes/100 WBC (Bld) 18.1 % 19-41 [facility] Blood monocytes/100 leukocyt esOrdered By: Dr. Wilks on 08-08-2022 Monocytes/100 WBC (Bld) 8.2 % 0-10 [facility] Blood platelet mean volumeOr dered By: Dr. Wilks on 08-08-2022 Platelet mean volume (Bld) [Entitic vol] 10.7 fL 6.2-12.0 [facility] Determination of erythrocyte mean corpuscular volume (MCV)Ordered By: Dr. Wilks on 08-08-2022 MCV (RBC) [Entitic vol] 92.3 fL 81-99 [facility] Hematocrit Auto (Bld) [Volum e fraction]Ordered By: Dr. Wilks on 08-08-2022 Hematocrit (Bld) [Volume fraction] 39.3 % 37-47 [facility] - Chemistry and C hemistry - challengeOrdered By: Dr. Wilks on 08-08-2022 CO2 [Moles/Vol] 24.0 mmol/L 21.0-32.0 [facility] Urea nitrogen/Creatinine [Mass ratio] 20.1 mg/mg 10-20 [facility] - Hematology and Cell countsOrdered By: Dr. Wilks on 08-08-2022 Erythrocyte distribution width (RBC) [Entitic vol] 57.2 fL 35.1-43.9 [facility] Erythrocyte distribution width (RBC) [Ratio] 17.0 % 11.6-14.6 [facility] Immature granulocytes/100 WBC (Bld) 0.200 % 0.0-0.9 [facility] Comment on above: IG% - Immature Granu locytes (promyelocytes, myelocytes and metamyelocytes) > 1% indicates that a LEFT SHIFT is Present. MCH (RBC) [Entitic mass] 28.9 pg 27.0-32.0 [facility] Nucleated RBC/100 WBC (Bld) [Ratio] 0 % 0-5 [facility] MCHC Auto (RBC) [Mass/Vol]Or dered By: Dr. Wilks on 08-08-2022 MCHC (RBC) [Mass/Vol] 31.3 g/dL 32-36 [facility] No Panel InformationOrdered By: Dr. Wilks on 08-08-2022 Estimated GFR (MDRD) Amer 79 mL/min >60 [facility] Comment on above: GFR Calc Estimated GFR (MDRD) Non-Af Amer 65 mL/min >60 [facility] Comment on above: Non- GFR Calc 28.9 pg 27.0-32.0 [facility] 17.0 % 11.6-14.6 [facility] 57.2 fl 35.1-43.9 [facility] 0.200 % 0.0-0.9 [facility] 0 % 0-5 [facility] 65 mL/min >60 [facility] 79 mL/min >60 [facility] 20.1 RATIO 10-20 [facility] 24.0 mmol/L 21.0-32.0 [facility] Platelets bldOrdered By: Dr. Wilks on 08-08-2022 Platelets (Bld) [#/Vol] 334 10*3/uL 150-450 [facility] Serum or plasma calcium chay urement (mass/volume)Ordered By: Dr. Wilks on 08-08-2022 Calcium [Mass/Vol] 11.5 mg/dL 8.5-10.1 [facility] Serum or plasma creatinine m easurement (mass/volume)Ordered By: Dr. Wilks on 08-08-2022 Creatinine [Mass/Vol] 0.90 mg/dL 0.55-1.02 [facility] Comment on above: The validity of the calculated GFR & GFRAA in patients over 70 years has not been determined. Clinical correlation is essential. Serum or plasma urea nitroge n measurement (mass/volume)Ordered By: Dr. Wilks on 08-08-2022 Urea nitrogen [Mass/Vol] 18 mg/dL 7-18 [facility] Thin prep Papanicolaou smear with manual screeningOrdered By: Dr. Wilks on 08-08-2022 Thin prep Papanicolaou smear with manual screening 7 5-15 [facility] Absolute lymphocyte countOrd ered By: Dr. Wilks on 12-06-2022 Lymphocytes Auto (Unsp spec) [#/Vol] 0.96 10*3/uL 0.83-4.51 [facility] Basophil percentageOrdered B y: Dr. Wilks on 08-01-2022 Basophil percentage 108 mg/dL 74-106 [facility] Basophil percentage 138 mmol/L 136-145 [facility] Basophil percentage 4.1 mmol/L 3.5-5.1 [facility] Basophil percentage 107 mmol/L 98-107 [facility] Basophils (Bld) [#/Vol] 7.3 10*3/uL 4.4-11.0 [facility] Basophils (Bld) [#/Vol] 5.2 10*3/uL 2.0-7.7 [facility] Basophils/100 WBC (Bld) 1.0 % 0-1 [facility] Basophils/100 WBC (Bld) 71.4 % 47-70 [facility] Basophils/100 WBC (Bld) 5.2 % 0-5 [facility] Chloride [Moles/Vol] 107 mmol/L 98-107 [facility] Eosinophils/100 WBC (Bld) 5.2 % 0-5 [facility] Glucose [Mass/Vol] 108 mg/dL 74-106 [facility] Comment on above: Fasting Glucose resu lt from 100 to 125 mg/dL suggests IMPAIRED HOMEOSTASIS per A.D.A. criteria. Neutrophils (Bld) [#/Vol] 5.2 10*3/uL 2.0-7.7 [facility] Neutrophils/100 WBC (Bld) 71.4 % 47-70 [facility] Potassium [Moles/Vol] 4.1 mmol/L 3.5-5.1 [facility] Sodium [Moles/Vol] 138 mmol/L 136-145 [facility] WBC (Bld) [#/Vol] 7.3 10*3/uL 4.4-11.0 [facility] Blood erythrocytes count (nu mber/volume)Ordered By: Dr. Wilks on 08-01-2022 RBC (Bld) [#/Vol] 3.94 10*6/uL 4.2-5.4 [facility] Blood hemoglobin measurement (mass/volume)Ordered By: Dr. Wilks on 08-01-2022 Hemoglobin (Bld) [Mass/Vol] 11.3 g/dL 12.0-15.0 [facility] Blood lymphocytes/100 leukoc ytesOrdered By: Dr. Wilks on 08-01-2022 Lymphocytes/100 WBC (Bld) 13.2 % 19-41 [facility] Blood monocytes/100 leukocyt esOrdered By: Dr. Wilks on 08-01-2022 Monocytes/100 WBC (Bld) 8.8 % 0-10 [facility] Blood platelet mean volumeOr dered By: Dr. Wilks on 08-01-2022 Platelet mean volume (Bld) [Entitic vol] 10.9 fL 6.2-12.0 [facility] Determination of erythrocyte mean corpuscular volume (MCV)Ordered By: Dr. Wilks on 08-01-2022 MCV (RBC) [Entitic vol] 92.9 fL 81-99 [facility] Hematocrit Auto (Bld) [Volum e fraction]Ordered By: Dr. Wilks on 08-01-2022 Hematocrit (Bld) [Volume fraction] 36.6 % 37-47 [facility] - Chemistry and C hemistry - challengeOrdered By: Dr. Wilks on 08-01-2022 CO2 [Moles/Vol] 26.0 mmol/L 21.0-32.0 [facility] Urea nitrogen/Creatinine [Mass ratio] 25.4 mg/mg 10-20 [facility] - Hematology and Cell countsOrdered By: Dr. Wilks on 08-01-2022 Erythrocyte distribution width (RBC) [Entitic vol] 56.8 fL 35.1-43.9 [facility] Erythrocyte distribution width (RBC) [Ratio] 16.6 % 11.6-14.6 [facility] Immature granulocytes/100 WBC (Bld) 0.400 % 0.0-0.9 [facility] Comment on above: IG% - Immature Granu locytes (promyelocytes, myelocytes and metamyelocytes) > 1% indicates that a LEFT SHIFT is Present. MCH (RBC) [Entitic mass] 28.7 pg 27.0-32.0 [facility] Nucleated RBC/100 [facility]Bld[facility] [[facility] 0 [facility] [Mass/Vol]Or dered By: Dr. Wilks on 08-01-2022 MCHC (RBC) [Mass/Vol] 30.9 g/dL 32-36 [facility] [facility] No Panel InformationOrdered By: Dr. Wilks on 08-01-2022 Estimated GFR (MDRD) Amer 78 mL/min >60 [facility] Comment on above: GFR Calc Estimated GFR (MDRD) Non-Af Amer 65 mL/min >60 [facility] Comment on above: Non- GFR Calc 28.7 pg 27.0-32.0 [facility] 16.6 % 11.6-14.6 [facility] 56.8 fl 35.1-43.9 [facility] 0.400 % 0.0-0.9 [facility] 0 % 0-5 [facility] 65 mL/min >60 [facility] 78 mL/min >60 [facility] 25.4 RATIO 10-20 [facility] 26.0 mmol/L 21.0-32.0 [facility] Platelets bldOrdered By: Dr. Wilks on 08-01-2022 Platelets (Bld) [#/Vol] 313 10*3/uL 150-450 [facility] Serum or plasma calcium chay urement (mass/volume)Ordered By: Dr. Wilks on 08-01-2022 Calcium [Mass/Vol] 10.9 mg/dL 8.5-10.1 [facility] Serum or plasma creatinine m easurement (mass/volume)Ordered By: Dr. Wilks on 08-01-2022 Creatinine [Mass/Vol] 0.90 mg/dL 0.55-1.02 [facility] Comment on above: The validity of the calculated GFR & GFRAA in patients over 70 years has not been determined. Clinical correlation is essential. Serum or plasma urea nitroge n measurement (mass/volume)Ordered By: Dr. Wilks on 08-01-2022 Urea nitrogen [Mass/Vol] 23 mg/dL 7-18 [facility] Thin prep Papanicolaou smear with manual screeningOrdered By: Dr. Wilks on 08-01-2022 Thin prep Papanicolaou smear with manual screening 5 5-15 [facility] Absolute lymphocyte countOrd ered By: Dr. Wilks on 07-25-2022 Lymphocytes Auto (Unsp spec) [#/Vol] 1.60 10*3/uL 0.83-4.51 [facility] Basophil percentageOrdered B y: Dr. Wilks on 07-25-2022 Basophil percentage 105 mg/dL 74-106 [facility] Basophil percentage 139 mmol/L 136-145 [facility] Basophil percentage 4.1 mmol/L 3.5-5.1 [facility] Basophil percentage 107 mmol/L 98-107 [facility] Basophils (Bld) [#/Vol] 8.1 10*3/uL 4.4-11.0 [facility] Basophils (Bld) [#/Vol] 5.1 10*3/uL 2.0-7.7 [facility] Basophils/100 WBC (Bld) 1.0 % 0-1 [facility] Basophils/100 WBC (Bld) 62.0 % 47-70 [facility] Basophils/100 WBC (Bld) 6.9 % 0-5 [facility] Basophil percentageon 2021 Chloride [Moles/Vol] 107 mmol/L 98-107 [facility] Work Phone: Eosinophils/100 WBC (Bld) 6.9 % 0-5 [facility] Work Phone: Glucose [Mass/Vol] 105 mg/dL 74-106 [facility] Work Phone: Comment on above: Fasting Glucose resu lt from 100 to 125 mg/dL suggests IMPAIRED HOMEOSTASIS per A.D.A. criteria. Neutrophils (Bld) [#/Vol] 5.1 10*3/uL 2.0-7.7 [facility] Work Phone: Neutrophils/100 WBC (Bld) 62.0 % 47-70 [facility] Work Phone: Potassium [Moles/Vol] 4.1 mmol/L 3.5-5.1 [facility] Work Phone: Sodium [Moles/Vol] 139 mmol/L 136-145 [facility] Work Phone: WBC (Bld) [#/Vol] 8.1 10*3/uL 4.4-11.0 [facility] Work Phone: Blood erythrocytes count (nu mber/volume)Ordered By: Dr. Wilks on 07-25-2022 RBC (Bld) [#/Vol] 4.01 10*6/uL 4.2-5.4 [facility] Blood hemoglobin measurement (mass/volume)Ordered By: Dr. Wilks on 07-25-2022 Hemoglobin (Bld) [Mass/Vol] 11.8 g/dL 12.0-15.0 [facility] Blood lymphocytes/100 leukoc ytesOrdered By: Dr. Wilks on 07-25-2022 Lymphocytes/100 WBC (Bld) 19.7 % 19-41 [facility] Blood monocytes/100 leukocyt esOrdered By: Dr. Wilks on 07-25-2022 Monocytes/100 WBC (Bld) 10.0 % 0-10 [facility] Blood platelet mean volumeOr dered By: Dr. Wilks on 07-25-2022 Platelet mean volume (Bld) [Entitic vol] 10.5 fL 6.2-12.0 [facility] Determination of erythrocyte mean corpuscular volume (MCV)Ordered By: Dr. Wilks on 07-25-2022 MCV (RBC) [Entitic vol] 93.0 fL 81-99 [facility] Hematocrit Auto (Bld) [Volum e fraction]Ordered By: Dr. Wilks on 07-25-2022 Hematocrit (Bld) [Volume fraction] 37.3 % 37-47 [facility] Laboratory - Chemistry and C hemistry - challengeon 07-25-2022 CO2 [Moles/Vol] 27.0 mmol/L 21.0-32.0 [facility] Work Phone: Urea nitrogen/Creatinine [Mass ratio] 29.8 mg/mg 10-20 [facility] Work Phone: Laboratory - Hematology and Cell countson 07-25-2022 Erythrocyte distribution width (RBC) [Entitic vol] 55.9 fL 35.1-43.9 [facility] Work Phone: Erythrocyte distribution width (RBC) [Ratio] 16.5 % 11.6-14.6 [facility] Work Phone: Immature granulocytes/100 WBC (Bld) 0.400 % 0.0-0.9 [facility] Work Phone: Comment on above: IG% - Immature Granu locytes (promyelocytes, myelocytes and metamyelocytes) > 1% indicates that a LEFT SHIFT is Present. MCH (RBC) [Entitic mass] 29.4 pg 27.0-32.0 [facility] Work Phone: Nucleated RBC/100 WBC (Bld) [Ratio] 0 % 0-5 [facility] Work Phone: MCHC Auto (RBC) [Mass/Vol]Or dered By: Dr. Wilks on 07-25-2022 MCHC (RBC) [Mass/Vol] 31.6 g/dL 32-36 [facility] No Panel Informationon 07-25 Estimated GFR (MDRD) Amer 75 mL/min >60 [facility] Work Phone: Comment on above: GFR Calc Estimated GFR (MDRD) Non-Af Amer 62 mL/min >60 [facility] Work Phone: Comment on above: Non- GFR Calc No Panel InformationOrdered By: Dr. Wilks on 07-25-2022 29.4 pg 27.0-32.0 [facility] 16.5 % 11.6-14.6 [facility] 55.9 fl 35.1-43.9 [facility] 0.400 % 0.0-0.9 [facility] 0 % 0-5 [facility] 62 mL/min >60 [facility] 75 mL/min >60 [facility] 29.8 RATIO 10-20 [facility] 27.0 mmol/L 21.0-32.0 [facility] Platelets bldOrdered By: Dr. Wilks on 07-25-2022 Platelets (Bld) [#/Vol] 343 10*3/uL 150-450 [facility] Serum or plasma calcium chay urement (mass/volume)Ordered By: Dr. Wilks on 07-25-2022 Calcium [Mass/Vol] 11.2 mg/dL 8.5-10.1 [facility] Serum or plasma creatinine m easurement (mass/volume)Ordered By: Dr. Wilks on 07-25-2022 Creatinine [Mass/Vol] 0.94 mg/dL 0.55-1.02 [facility] Comment on above: The validity of the calculated GFR & GFRAA in patients over 70 years has not been determined. Clinical correlation is essential. Serum or plasma urea nitroge n measurement (mass/volume)Ordered By: Dr. Wilks on 07-25-2022 Urea nitrogen [Mass/Vol] 28 mg/dL 7-18 [facility] Thin prep Papanicolaou smear with manual screeningOrdered By: Dr. Wilks on 07-25-2022 Thin prep Papanicolaou smear with manual screening 5 5-15 [facility] Absolute lymphocyte countOrd ered By: Dr. Wilks on 07-18-2022 Lymphocytes Auto (Unsp spec) [#/Vol] 1.26 10*3/uL 0.83-4.51 [facility] Basophil percentageOrdered B y: Dr. Wilks on 07-18-2022 Basophil percentage 112 mg/dL 74-106 [facility] Basophil percentage 137 mmol/L 136-145 [facility] Basophil percentage 4.1 mmol/L 3.5-5.1 [facility] Basophil percentage 105 mmol/L 98-107 [facility] Basophils (Bld) [#/Vol] 7.3 10*3/uL 4.4-11.0 [facility] Basophils (Bld) [#/Vol] 4.9 10*3/uL 2.0-7.7 [facility] Basophils/100 WBC (Bld) 1.1 % 0-1 [facility] Basophils/100 WBC (Bld) 67.6 % 47-70 [facility] Basophils/100 WBC (Bld) 5.2 % 0-5 [facility] Basophil percentageon 2021 Chloride [Moles/Vol] 105 mmol/L 98-107 [facility] Work Phone: Eosinophils/100 WBC (Bld) 5.2 % 0-5 [facility] Work Phone: Glucose [Mass/Vol] 112 mg/dL 74-106 [facility] Work Phone: Comment on above: Fasting Glucose resu lt from 100 to 125 mg/dL suggests IMPAIRED HOMEOSTASIS per A.D.A. criteria. Neutrophils (Bld) [#/Vol] 4.9 10*3/uL 2.0-7.7 [facility] Work Phone: Neutrophils/100 WBC (Bld) 67.6 % 47-70 [facility] Work Phone: Potassium [Moles/Vol] 4.1 mmol/L 3.5-5.1 [facility] Work Phone: Sodium [Moles/Vol] 137 mmol/L 136-145 [facility] Work Phone: WBC (Bld) [#/Vol] 7.3 10*3/uL 4.4-11.0 [facility] Work Phone: Blood erythrocytes count (nu mber/volume)Ordered By: Dr. Wilks on 07-18-2022 RBC (Bld) [#/Vol] 3.86 10*6/uL 4.2-5.4 [facility] Blood hemoglobin measurement (mass/volume)Ordered By: Dr. Wilks on 07-18-2022 Hemoglobin (Bld) [Mass/Vol] 11.0 g/dL 12.0-15.0 [facility] Blood lymphocytes/100 leukoc ytesOrdered By: Dr. Wilks on 07-18-2022 Lymphocytes/100 WBC (Bld) 17.2 % 19-41 [facility] Blood monocytes/100 leukocyt esOrdered By: Dr. Wilks on 07-18-2022 Monocytes/100 WBC (Bld) 8.5 % 0-10 [facility] Blood platelet mean volumeOr dered By: Dr. Wilks on 07-18-2022 Platelet mean volume (Bld) [Entitic vol] 10.0 fL 6.2-12.0 [facility] Determination of erythrocyte mean corpuscular volume (MCV)Ordered By: Dr. Wilks on 07-18-2022 MCV (RBC) [Entitic vol] 93.0 fL 81-99 [facility] Hematocrit Auto (Bld) [Volum e fraction]Ordered By: Dr. Wilks on 07-18-2022 Hematocrit (Bld) [Volume fraction] 35.9 % 37-47 [facility] Laboratory - Chemistry and C hemistry - challengeon 07-18-2022 CO2 [Moles/Vol] 26.0 mmol/L 21.0-32.0 [facility] Work Phone: Urea nitrogen/Creatinine [Mass ratio] 16.4 mg/mg 10-20 [facility] Work Phone: Laboratory - Hematology and Cell countson 07-18-2022 Erythrocyte distribution width (RBC) [Entitic vol] 55.2 fL 35.1-43.9 [facility] Work Phone: Erythrocyte distribution width (RBC) [Ratio] 16.2 % 11.6-14.6 [facility] Work Phone: Immature granulocytes/100 WBC (Bld) 0.400 % 0.0-0.9 [facility] Work Phone: Comment on above: IG% - Immature Granu locytes (promyelocytes, myelocytes and metamyelocytes) > 1% indicates that a LEFT SHIFT is Present. MCH (RBC) [Entitic mass] 28.5 pg 27.0-32.0 [facility] Work Phone: Nucleated RBC/100 WBC (Bld) [Ratio] 0 % 0-5 [facility] Work Phone: MCHC Auto (RBC) [Mass/Vol]Or dered By: Dr. Wilks on 07-18-2022 MCHC (RBC) [Mass/Vol] 30.6 g/dL 32-36 [facility] No Panel Informationon 07-18 Estimated GFR (MDRD) Amer 77 mL/min >60 [facility] Work Phone: Comment on above: GFR Calc Estimated GFR (MDRD) Non-Af Amer 64 mL/min >60 [facility] Work Phone: Comment on above: Non- GFR Calc No Panel InformationOrdered By: Dr. Wilks on 07-18-2022 28.5 pg 27.0-32.0 [facility] 16.2 % 11.6-14.6 [facility] 55.2 fl 35.1-43.9 [facility] 0.400 % 0.0-0.9 [facility] 0 % 0-5 [facility] 64 mL/min >60 [facility] 77 mL/min >60 [facility] 16.4 RATIO 10-20 [facility] 26.0 mmol/L 21.0-32.0 [facility] Platelets bldOrdered By: Dr. Wilks on 07-18-2022 Platelets (Bld) [#/Vol] 373 10*3/uL 150-450 [facility] Serum or plasma calcium chay urement (mass/volume)Ordered By: Dr. Wilks on 07-18-2022 Calcium [Mass/Vol] 10.8 mg/dL 8.5-10.1 [facility] Serum or plasma creatinine m easurement (mass/volume)Ordered By: Dr. Wilks on 07-18-2022 Creatinine [Mass/Vol] 0.91 mg/dL 0.55-1.02 [facility] Comment on above: The validity of the calculated GFR & GFRAA in patients over 70 years has not been determined. Clinical correlation is essential. Serum or plasma urea nitroge n measurement (mass/volume)Ordered By: Dr. Wilks on 07-18-2022 Urea nitrogen [Mass/Vol] 15 mg/dL 7-18 [facility] Thin prep Papanicolaou smear with manual screeningOrdered By: Dr. Wilks on 07-18-2022 Thin prep Papanicolaou smear with manual screening 6 5-15 [facility] Absolute lymphocyte countOrd ered By: Dr. Wilks on 07-11-2022 Lymphocytes Auto (Unsp spec) [#/Vol] 1.11 10*3/uL 0.83-4.51 [facility] Basophil percentageOrdered B y: Dr. Wilks on 07-11-2022 Basophil percentage 100 mg/dL 74-106 [facility] Basophil percentage 142 mmol/L 136-145 [facility] Basophil percentage 3.6 mmol/L 3.5-5.1 [facility] Basophil percentage 114 mmol/L 98-107 [facility] Basophils (Bld) [#/Vol] 6.9 10*3/uL 4.4-11.0 [facility] Basophils (Bld) [#/Vol] 4.8 10*3/uL 2.0-7.7 [facility] Basophils/100 WBC (Bld) 0.7 % 0-1 [facility] Basophils/100 WBC (Bld) 69.7 % 47-70 [facility] Basophils/100 WBC (Bld) 4.2 % 0-5 [facility] Basophil percentageon 2021 Chloride [Moles/Vol] 114 mmol/L 98-107 [facility] Work Phone: Eosinophils/100 WBC (Bld) 4.2 % 0-5 [facility] Work Phone: Glucose [Mass/Vol] 100 mg/dL 74-106 [facility] Work Phone: Comment on above: Fasting Glucose resu lt from 100 to 125 mg/dL suggests IMPAIRED HOMEOSTASIS per A.D.A. criteria. Neutrophils (Bld) [#/Vol] 4.8 10*3/uL 2.0-7.7 [facility] Work Phone: Neutrophils/100 WBC (Bld) 69.7 % 47-70 [facility] Work Phone: Potassium [Moles/Vol] 3.6 mmol/L 3.5-5.1 [facility] Work Phone: Sodium [Moles/Vol] 142 mmol/L 136-145 [facility] Work Phone: WBC (Bld) [#/Vol] 6.9 10*3/uL 4.4-11.0 [facility] Work Phone: Blood erythrocytes count (nu mber/volume)Ordered By: Dr. Wilks on 07-11-2022 RBC (Bld) [#/Vol] 3.30 10*6/uL 4.2-5.4 [facility] Blood hemoglobin measurement (mass/volume)Ordered By: Dr. Wilks on 07-11-2022 Hemoglobin (Bld) [Mass/Vol] 9.7 g/dL 12.0-15.0 [facility] Blood lymphocytes/100 leukoc ytesOrdered By: Dr. Wilks on 07-11-2022 Lymphocytes/100 WBC (Bld) 16.1 % 19-41 [facility] Blood monocytes/100 leukocyt esOrdered By: Dr. Wilks on 07-11-2022 Monocytes/100 WBC (Bld) 8.9 % 0-10 [facility] Blood platelet mean volumeOr dered By: Dr. Wilks on 07-11-2022 Platelet mean volume (Bld) [Entitic vol] 10.0 fL 6.2-12.0 [facility] Determination of erythrocyte mean corpuscular volume (MCV)Ordered By: Dr. Wilks on 07-11-2022 MCV (RBC) [Entitic vol] 94.2 fL 81-99 [facility] Hematocrit Auto (Bld) [Volum e fraction]Ordered By: Dr. Wilks on 07-11-2022 Hematocrit (Bld) [Volume fraction] 31.1 % 37-47 [facility] Laboratory - Chemistry and C hemistry - challengeon 07-11-2022 CO2 [Moles/Vol] 26.0 mmol/L 21.0-32.0 [facility] Work Phone: Urea nitrogen/Creatinine [Mass ratio] 10.1 mg/mg 10-20 [facility] Work Phone: Laboratory - Hematology and Cell countson 07-11-2022 Erythrocyte distribution width (RBC) [Entitic vol] 54.6 fL 35.1-43.9 [facility] Work Phone: Erythrocyte distribution width (RBC) [Ratio] 15.9 % 11.6-14.6 [facility] Work Phone: Immature granulocytes/100 WBC (Bld) 0.400 % 0.0-0.9 [facility] Work Phone: Comment on above: IG% - Immature Granu locytes (promyelocytes, myelocytes and metamyelocytes) > 1% indicates that a LEFT SHIFT is Present. MCH (RBC) [Entitic mass] 29.4 pg 27.0-32.0 [facility] Work Phone: Nucleated RBC/100 WBC (Bld) [Ratio] 0 % 0-5 [facility] Work Phone: MCHC Auto (RBC) [Mass/Vol]Or dered By: Dr. Wilks on 07-11-2022 MCHC (RBC) [Mass/Vol] 31.2 g/dL 32-36 [facility] No Panel Informationon 07-11 Estimated GFR (MDRD) Amer 126 mL/min >60 [facility] Work Phone: Comment on above: GFR Calc Estimated GFR (MDRD) Non-Af Amer 105 mL/min >60 [facility] Work Phone: Comment on above: Non- GFR Calc No Panel InformationOrdered By: Dr. Wilks on 07-11-2022 29.4 pg 27.0-32.0 [facility] 15.9 % 11.6-14.6 [facility] 54.6 fl 35.1-43.9 [facility] 0.400 % 0.0-0.9 [facility] 0 % 0-5 [facility] 105 mL/min >60 [facility] 126 mL/min >60 [facility] 10.1 RATIO 10-20 [facility] 26.0 mmol/L 21.0-32.0 [facility] Platelets bldOrdered By: Dr. Wilks on 07-11-2022 Platelets (Bld) [#/Vol] 325 10*3/uL 150-450 [facility] Serum or plasma calcium chay urement (mass/volume)Ordered By: Dr. Wilks on 07-11-2022 Calcium [Mass/Vol] 10.1 mg/dL 8.5-10.1 [facility] Serum or plasma creatinine m easurement (mass/volume)Ordered By: Dr. Wilks on 07-11-2022 Creatinine [Mass/Vol] 0.60 mg/dL 0.55-1.02 [facility] Comment on above: The validity of the calculated GFR & GFRAA in patients over 70 years has not been determined. Clinical correlation is essential. Serum or plasma urea nitroge n measurement (mass/volume)Ordered By: Dr. Wilks on 07-11-2022 Urea nitrogen [Mass/Vol] 6 mg/dL 7-18 [facility] Thin prep Papanicolaou smear with manual screeningOrdered By: Dr. Wilks on 07-11-2022 Thin prep Papanicolaou smear with manual screening 2 5-15 [facility] Absolute lymphocyte countOrd ered By: Dr. Issa on 07-10-2022 Lymphocytes Auto (Unsp spec) [#/Vol] 1.64 10*3/uL 0.83-4.51 [facility] Basophil percentageOrdered B y: Dr. Issa on 07-10-2022 Basophil percentage 78 mg/dL 74-106 [facility] Basophil percentage 6.4 g/dL 6.4-8.2 [facility] Basophil percentage 0.30 mg/dL 0.20-1.00 [facility] Basophil percentage 145 mmol/L 136-145 [facility] Basophil percentage 3.5 mmol/L 3.5-5.1 [facility] Basophil percentage 116 mmol/L 98-107 [facility] Basophils (Bld) [#/Vol] 6.5 10*3/uL 4.4-11.0 [facility] Basophils (Bld) [#/Vol] 3.8 10*3/uL 2.0-7.7 [facility] Basophils/100 WBC (Bld) 0.8 % 0-1 [facility] Basophils/100 WBC (Bld) 58.0 % 47-70 [facility] Basophils/100 WBC (Bld) 4.9 % 0-5 [facility] Basophil percentageon 2021 Bilirubin [Mass/Vol] 0.30 mg/dL 0.20-1.00 [facility] Work Phone: Comment on above: For patients on eltr ombopag therapy, use of Dimension [place] TBIL is not recommended. Chloride [Moles/Vol] 116 mmol/L 98-107 [facility] Work Phone: Eosinophils/100 WBC (Bld) 4.9 % 0-5 [facility] Work Phone: Glucose [Mass/Vol] 78 mg/dL 74-106 [facility] Work Phone: Neutrophils (Bld) [#/Vol] 3.8 10*3/uL 2.0-7.7 [facility] Work Phone: Neutrophils/100 WBC (Bld) 58.0 % 47-70 [facility] Work Phone: Potassium [Moles/Vol] 3.5 mmol/L 3.5-5.1 [facility] Work Phone: Protein [Mass/Vol] 6.4 g/dL 6.4-8.2 [facility] Work Phone: Sodium [Moles/Vol] 145 mmol/L 136-145 [facility] Work Phone: WBC (Bld) [#/Vol] 6.5 10*3/uL 4.4-11.0 [facility] Work Phone: Blood erythrocytes count (nu mber/volume)Ordered By: Dr. Issa on 07-10-2022 RBC (Bld) [#/Vol] 3.20 10*6/uL 4.2-5.4 [facility] Blood hemoglobin measurement (mass/volume)Ordered By: Dr. Issa on 07-10-2022 Hemoglobin (Bld) [Mass/Vol] 9.4 g/dL 12.0-15.0 [facility] Blood lymphocytes/100 leukoc ytesOrdered By: Dr. Issa on 07-10-2022 Lymphocytes/100 WBC (Bld) 25.2 % 19-41 [facility] Blood monocytes/100 leukocyt esOrdered By: Dr. Issa on 07-10-2022 Monocytes/100 WBC (Bld) 10.6 % 0-10 [facility] Blood platelet mean volumeOr dered By: Dr. Issa on 07-10-2022 Platelet mean volume (Bld) [Entitic vol] 9.7 fL 6.2-12.0 [facility] COVID-19 virus antigen assay Ordered By: Dr. Marti on 07-10-2022 SARS-CoV-2 (COVID-19) Ag IA.rapid Ql (Resp) [facility] Determination of erythrocyte mean corpuscular volume (MCV)Ordered By: Dr. Issa on 07-10-2022 MCV (RBC) [Entitic vol] 93.8 fL 81-99 [facility] Hematocrit Auto (Bld) [Volum e fraction]Ordered By: Dr. Issa on 07-10-2022 Hematocrit (Bld) [Volume fraction] 30.0 % 37-47 [facility] Laboratory - Chemistry and C hemistry - challengeon 07-10-2022 ALP [Catalytic activity/Vol] 51 U/L 45-117 [facility] Work Phone: ALT [Catalytic activity/Vol] 14 U/L 13-56 [facility] Work Phone: CO2 [Moles/Vol] 25.0 mmol/L 21.0-32.0 [facility] Work Phone: Globulin (S) [Mass/Vol] 4.0 g/dL 2.2-4.2 [facility] Work Phone: Urea nitrogen/Creatinine [Mass ratio] 10.3 mg/mg 10-20 [facility] Work Phone: Laboratory - Hematology and Cell countson 07-10-2022 Erythrocyte distribution width (RBC) [Entitic vol] 54.3 fL 35.1-43.9 [facility] Work Phone: Erythrocyte distribution width (RBC) [Ratio] 15.8 % 11.6-14.6 [facility] Work Phone: Immature granulocytes/100 WBC (Bld) 0.500 % 0.0-0.9 [facility] Work Phone: Comment on above: IG% - Immature Granu locytes (promyelocytes, myelocytes and metamyelocytes) > 1% indicates that a LEFT SHIFT is Present. MCH (RBC) [Entitic mass] 29.4 pg 27.0-32.0 [facility] Work Phone: Nucleated RBC/100 WBC (Bld) [Ratio] 0 % 0-5 [facility] Work Phone: MCHC Auto (RBC) [Mass/Vol]Or dered By: Dr. Issa on 07-10-2022 MCHC (RBC) [Mass/Vol] 31.3 g/dL 32-36 [facility] No Panel Informationon 07-10 Estimated Creatinine Clearance Calc 52.64 ml/min [facility] Work Phone: Estimated GFR (MDRD) Amer 109 mL/min >60 [facility] Work Phone: Comment on above: GFR Calc Estimated GFR (MDRD) Non-Af Amer 90 mL/min >60 [facility] Work Phone: Comment on above: Non- GFR Calc No Panel InformationOrdered By: Dr. Issa on 07-10-2022 29.4 pg 27.0-32.0 [facility] 15.8 % 11.6-14.6 [facility] 54.3 fl 35.1-43.9 [facility] 0.500 % 0.0-0.9 [facility] 0 % 0-5 [facility] 90 mL/min >60 [facility] 109 mL/min >60 [facility] 52.64 ml/min [facility] 10.3 RATIO 10-20 [facility] 4.0 g/dL 2.2-4.2 [facility] 51 U/L 45-117 [facility] 14 U/L 13-56 [facility] 25.0 mmol/L 21.0-32.0 [facility] Platelets bldOrdered By: Dr. Issa on 07-10-2022 Platelets (Bld) [#/Vol] 303 10*3/uL 150-450 [facility] Serum or plasma albumin chay urement (mass/volume)Ordered By: Dr. Issa on 07-10-2022 Albumin [Mass/Vol] 2.4 g/dL 3.2-5.0 [facility] Serum or plasma albumin/glob ulin mass ratioOrdered By: Dr. Issa on 07-10-2022 Albumin/Globulin [Mass ratio] 0.6 {ratio} 0.9-2.4 [facility] Serum or plasma calcium chay urement (mass/volume)Ordered By: Dr. Issa on 07-10-2022 Calcium [Mass/Vol] 9.7 mg/dL 8.5-10.1 [facility] Serum or plasma creatinine m easurement (mass/volume)Ordered By: Dr. Issa on 07-10-2022 Creatinine [Mass/Vol] 0.68 mg/dL 0.55-1.02 [facility] Comment on above: The validity of the calculated GFR & GFRAA in patients over 70 years has not been determined. Clinical correlation is essential. Serum or plasma urea nitroge n measurement (mass/volume)Ordered By: Dr. Issa on 07-10-2022 Urea nitrogen [Mass/Vol] 7 mg/dL 7-18 [facility] Thin prep Papanicolaou smear with manual screeningOrdered By: Dr. Issa on 07-10-2022 Thin prep Papanicolaou smear with manual screening 11 U/L 15-37 [facility] Thin prep Papanicolaou smear with manual screening 4 5-15 [facility] Absolute lymphocyte counton 07-08-2022 Lymphocytes Auto (Unsp spec) [#/Vol] 1.16 10*3/uL 0.83-4.51 [facility] Work Phone: Basophil percentageon 2021 Basophils/100 WBC (Bld) 0.8 % 0-1 [facility] Work Phone: Bilirubin [Mass/Vol] 0.20 mg/dL 0.20-1.00 [facility] Work Phone: Comment on above: For patients on eltr ombopag therapy, use of Dimension [place] TBIL is not recommended. Chloride [Moles/Vol] 107 mmol/L 98-107 [facility] Work Phone: Eosinophils/100 WBC (Bld) 2.6 % 0-5 [facility] Work Phone: Glucose [Mass/Vol] 90 mg/dL 74-106 [facility] Work Phone: Neutrophils (Bld) [#/Vol] 5.8 10*3/uL 2.0-7.7 [facility] Work Phone: Neutrophils/100 WBC (Bld) 73.1 % 47-70 [facility] Work Phone: Potassium [Moles/Vol] 4.1 mmol/L 3.5-5.1 [facility] Work Phone: Protein [Mass/Vol] 7.5 g/dL 6.4-8.2 [facility] Work Phone: Sodium [Moles/Vol] 139 mmol/L 136-145 [facility] Work Phone: WBC (Bld) [#/Vol] 8.0 10*3/uL 4.4-11.0 [facility] Work Phone: Blood erythrocytes count (nu mber/volume)on 07-08-2022 RBC (Bld) [#/Vol] 3.75 10*6/uL 4.2-5.4 [facility] Work Phone: Blood hemoglobin measurement (mass/volume)on 07-08-2022 Hemoglobin (Bld) [Mass/Vol] 10.7 g/dL 12.0-15.0 [facility] Work Phone: Blood lymphocytes/100 leukoc yteson 07-08-2022 Lymphocytes/100 WBC (Bld) 14.5 % 19-41 [facility] Work Phone: Blood monocytes/100 leukocyt eson 07-08-2022 Monocytes/100 WBC (Bld) 8.6 % 0-10 [facility] Work Phone: Blood platelet mean volumeon 07-08-2022 Platelet mean volume (Bld) [Entitic vol] 9.6 fL 6.2-12.0 [facility] Work Phone: Determination of erythrocyte mean corpuscular volume (MCV)on 07-08-2022 MCV (RBC) [Entitic vol] 93.1 fL 81-99 [facility] Work Phone: Hematocrit Auto (Bld) [Volum e fraction]on 07-08-2022 Hematocrit (Bld) [Volume fraction] 34.9 % 37-47 [facility] Work Phone: Laboratory - Chemistry and C hemistry - challengeon 07-08-2022 ALP [Catalytic activity/Vol] 63 U/L 45-117 [facility] Work Phone: ALT [Catalytic activity/Vol] 17 U/L 13-56 [facility] Work Phone: CO2 [Moles/Vol] 26.0 mmol/L 21.0-32.0 [facility] Work Phone: Globulin (S) [Mass/Vol] 4.8 g/dL 2.2-4.2 [facility] Work Phone: Urea nitrogen/Creatinine [Mass ratio] 22.0 mg/mg 10-20 [facility] Work Phone: Laboratory - Hematology and Cell countson 07-08-2022 Erythrocyte distribution width (RBC) [Entitic vol] 53.6 fL 35.1-43.9 [facility] Work Phone: Erythrocyte distribution width (RBC) [Ratio] 15.7 % 11.6-14.6 [facility] Work Phone: Immature granulocytes/100 WBC (Bld) 0.400 % 0.0-0.9 [facility] Work Phone: Comment on above: IG% - Immature Granu locytes (promyelocytes, myelocytes and metamyelocytes) > 1% indicates that a LEFT SHIFT is Present. MCH (RBC) [Entitic mass] 28.5 pg 27.0-32.0 [facility] Work Phone: Nucleated RBC/100 WBC (Bld) [Ratio] 0 % 0-5 [facility] Work Phone: MCHC Auto (RBC) [Mass/Vol]on 07-08-2022 MCHC (RBC) [Mass/Vol] 30.7 g/dL 32-36 [facility] Work Phone: No Panel Informationon 07-08 Estimated Creatinine Clearance Calc 57.09 ml/min [facility] Work Phone: Estimated GFR (MDRD) Amer 94 mL/min >60 [facility] Work Phone: Comment on above: GFR Calc Estimated GFR (MDRD) Non-Af Amer 77 mL/min >60 [facility] Work Phone: Comment on above: Non- GFR Calc Platelets bldon 07-08-2022 Platelets (Bld) [#/Vol] 356 10*3/uL 150-450 [facility] Work Phone: Serum or plasma albumin chay urement (mass/volume)on 07-08-2022 Albumin [Mass/Vol] 2.7 g/dL 3.2-5.0 [facility] Work Phone: Serum or plasma albumin/glob ulin mass ratioon 07-08-2022 Albumin/Globulin [Mass ratio] 0.6 {ratio} 0.9-2.4 [facility] Work Phone: Serum or plasma calcium chay urement (mass/volume)on 07-08-2022 Calcium [Mass/Vol] 10.5 mg/dL 8.5-10.1 [facility] Work Phone: Serum or plasma creatinine m easurement (mass/volume)on 07-08-2022 Creatinine [Mass/Vol] 0.77 mg/dL 0.55-1.02 [facility] Work Phone: Comment on above: The validity of the calculated GFR & GFRAA in patients over 70 years has not been determined. Clinical correlation is essential. Serum or plasma urea nitroge n measurement (mass/volume)on 07-08-2022 Urea nitrogen [Mass/Vol] 17 mg/dL 7-18 [facility] Work Phone: Thin prep Papanicolaou smear with manual screeningon 07-08-2022 Thin prep Papanicolaou smear with manual screening 9 U/L 15-37 [facility] Work Phone: Thin prep Papanicolaou smear with manual screening 6 5-15 [facility] Work Phone: Absolute lymphocyte countOrd ered By: Dr. Wilks on 07-03-2022 Lymphocytes Auto (Unsp spec) [#/Vol] 1.36 10*3/uL 0.83-4.51 [facility] Basophil percentageOrdered B y: Dr. Wilks on 07-03-2022 Basophil percentage 105 mg/dL 74-106 [facility] Basophil percentage 136 mmol/L 136-145 [facility] Basophil percentage 4.2 mmol/L 3.5-5.1 [facility] Basophil percentage 104 mmol/L 98-107 [facility] Basophils (Bld) [#/Vol] 10.6 10*3/uL 4.4-11.0 [facility] Basophils (Bld) [#/Vol] 7.9 10*3/uL 2.0-7.7 [facility] Basophils/100 WBC (Bld) 0.7 % 0-1 [facility] Basophils/100 WBC (Bld) 74.6 % 47-70 [facility] Basophils/100 WBC (Bld) 2.6 % 0-5 [facility] Basophil percentageon 2021 Chloride [Moles/Vol] 104 mmol/L 98-107 [facility] Work Phone: Eosinophils/100 WBC (Bld) 2.6 % 0-5 [facility] Work Phone: Glucose [Mass/Vol] 105 mg/dL 74-106 [facility] Work Phone: Comment on above: Fasting Glucose resu lt from 100 to 125 mg/dL suggests IMPAIRED HOMEOSTASIS per A.D.A. criteria. Neutrophils (Bld) [#/Vol] 7.9 10*3/uL 2.0-7.7 [facility] Work Phone: Neutrophils/100 WBC (Bld) 74.6 % 47-70 [facility] Work Phone: Potassium [Moles/Vol] 4.2 mmol/L 3.5-5.1 [facility] Work Phone: Sodium [Moles/Vol] 136 mmol/L 136-145 [facility] Work Phone: WBC (Bld) [#/Vol] 10.6 10*3/uL 4.4-11.0 [facility] Work Phone: Blood erythrocytes count (nu mber/volume)Ordered By: Dr. Wilks on 07-03-2022 RBC (Bld) [#/Vol] 3.65 10*6/uL 4.2-5.4 [facility] Blood hemoglobin measurement (mass/volume)Ordered By: Dr. Wilks on 07-03-2022 Hemoglobin (Bld) [Mass/Vol] 10.6 g/dL 12.0-15.0 [facility] Blood lymphocytes/100 leukoc ytesOrdered By: Dr. Wilks on 07-03-2022 Lymphocytes/100 WBC (Bld) 12.8 % 19-41 [facility] Blood monocytes/100 leukocyt esOrdered By: Dr. Wilks on 07-03-2022 Monocytes/100 WBC (Bld) 8.3 % 0-10 [facility] Blood platelet mean volumeOr dered By: Dr. Wilks on 07-03-2022 Platelet mean volume (Bld) [Entitic vol] 10.5 fL 6.2-12.0 [facility] Determination of erythrocyte mean corpuscular volume (MCV)Ordered By: Dr. Wilks on 11-07-2022 MCV (RBC) [Entitic vol] 92.6 fL 81-99 [facility] Hematocrit Auto (Bld) [Volum e fraction]Ordered By: Dr. Wilks on 07-03-2022 Hematocrit (Bld) [Volume fraction] 33.8 % 37-47 [facility] Laboratory - Chemistry and C hemistry - challengeon 07-03-2022 CO2 [Moles/Vol] 25.0 mmol/L 21.0-32.0 [facility] Work Phone: Magnesium [Mass/Vol] 2.6 mg/dL 1.6-2.6 [facility] Work Phone: Urea nitrogen/Creatinine [Mass ratio] 19.8 mg/mg 10-20 [facility] Work Phone: Laboratory - Hematology and Cell countson 07-03-2022 Erythrocyte distribution width (RBC) [Entitic vol] 54.2 fL 35.1-43.9 [facility] Work Phone: Erythrocyte distribution width (RBC) [Ratio] 15.9 % 11.6-14.6 [facility] Work Phone: Immature granulocytes/100 WBC (Bld) 1.000 % 0.0-0.9 [facility] Work Phone: Comment on above: IG% - Immature Granu locytes (promyelocytes, myelocytes and metamyelocytes) > 1% indicates that a LEFT SHIFT is Present. MCH (RBC) [Entitic mass] 29.0 pg 27.0-32.0 [facility] Work Phone: Nucleated RBC/100 WBC (Bld) [Ratio] 0 % 0-5 [facility] Work Phone: MCHC Auto (RBC) [Mass/Vol]Or dered By: Dr. Wilks on 07-03-2022 MCHC (RBC) [Mass/Vol] 31.4 g/dL 32-36 [facility] No Panel Informationon 07-03 Estimated GFR (MDRD) Amer 83 mL/min >60 [facility] Work Phone: Comment on above: GFR Calc Estimated GFR (MDRD) Non-Af Amer 68 mL/min >60 [facility] Work Phone: Comment on above: Non- GFR Calc No Panel InformationOrdered By: Dr. Wilks on 07-03-2022 29.0 pg 27.0-32.0 [facility] 15.9 % 11.6-14.6 [facility] 54.2 fl 35.1-43.9 [facility] 1.000 % 0.0-0.9 [facility] 0 % 0-5 [facility] 68 mL/min >60 [facility] 83 mL/min >60 [facility] 19.8 RATIO 10-20 [facility] 2.6 mg/dL 1.6-2.6 [facility] 25.0 mmol/L 21.0-32.0 [facility] Platelets bldOrdered By: Dr. Wilks on 07-03-2022 Platelets (Bld) [#/Vol] 323 10*3/uL 150-450 [facility] Serum or plasma C reactive p rotein measurement (mass/volume)Ordered By: Dr. Wilks on 07-03-2022 CRP [Mass/Vol] 72.90 mg/L 0.0-3.0 [facility] Comment on above: C-Reactive Protein ( CRP) provides useful information for thediagnosis, therapy and monitoring of inflammatory processesand associated diseases. For the evaluation of Relative Riskfor Cardiovascular Disease, a High Sensitivity CRP (HSCRP)should be ordered. Serum or plasma calcium chay urement (mass/volume)Ordered By: Dr. Wilks on 07-03-2022 Calcium [Mass/Vol] 10.8 mg/dL 8.5-10.1 [facility] Serum or plasma creatinine m easurement (mass/volume)Ordered By: Dr. Wilks on 07-03-2022 Creatinine [Mass/Vol] 0.86 mg/dL 0.55-1.02 [facility] Comment on above: The validity of the calculated GFR & GFRAA in patients over 70 years has not been determined. Clinical correlation is essential. Serum or plasma urea nitroge n measurement (mass/volume)Ordered By: Dr. Wilks on 07-03-2022 Urea nitrogen [Mass/Vol] 17 mg/dL 7-18 [facility] Thin prep Papanicolaou smear with manual screeningOrdered By: Dr. Wilks on 07-03-2022 Thin prep Papanicolaou smear with manual screening 7 5-15 [facility] Absolute lymphocyte countOrd ered By: Dr. Baron on 06-29-2022 Lymphocytes Auto (Unsp spec) [#/Vol] 1.44 10*3/uL 0.83-4.51 [facility] Basophil percentageOrdered B y: Dr. Baron on 06-29-2022 Basophils (Bld) [#/Vol] 13.9 10*3/uL 4.4-11.0 [facility] Basophils (Bld) [#/Vol] 10.7 10*3/uL 2.0-7.7 [facility] Basophils/100 WBC (Bld) 0.5 % 0-1 [facility] Basophils/100 WBC (Bld) 77.5 % 47-70 [facility] Basophils/100 WBC (Bld) 2.5 % 0-5 [facility] Basophil percentageon 2021 Eosinophils/100 WBC (Bld) 2.5 % 0-5 [facility] Work Phone: Neutrophils (Bld) [#/Vol] 10.7 10*3/uL 2.0-7.7 [facility] Work Phone: Neutrophils/100 WBC (Bld) 77.5 % 47-70 [facility] Work Phone: WBC (Bld) [#/Vol] 13.9 10*3/uL 4.4-11.0 [facility] Work Phone: Blood erythrocytes count (nu mber/volume)Ordered By: Dr. Baron on 06-29-2022 RBC (Bld) [#/Vol] 3.73 10*6/uL 4.2-5.4 [facility] Blood hemoglobin measurement (mass/volume)Ordered By: Dr. Baron on 06-29-2022 Hemoglobin (Bld) [Mass/Vol] 11.2 g/dL 12.0-15.0 [facility] Blood lymphocytes/100 leukoc ytesOrdered By: Dr. Baron on 06-29-2022 Lymphocytes/100 WBC (Bld) 10.4 % 19-41 [facility] Blood monocytes/100 leukocyt esOrdered By: Dr. Baron on 06-29-2022 Monocytes/100 WBC (Bld) 7.1 % 0-10 [facility] Blood platelet mean volumeOr dered By: Dr. Baron on 06-29-2022 Platelet mean volume (Bld) [Entitic vol] 9.9 fL 6.2-12.0 [facility] Determination of erythrocyte mean corpuscular volume (MCV)Ordered By: Dr. Baron on 06-29-2022 MCV (RBC) [Entitic vol] 92.0 fL 81-99 [facility] Hematocrit Auto (Bld) [Volum e fraction]Ordered By: Dr. Baron on 06-29-2022 Hematocrit (Bld) [Volume fraction] 34.3 % 37-47 [facility] Laboratory - Hematology and Cell countson 06-29-2022 Erythrocyte distribution width (RBC) [Entitic vol] 51.9 fL 35.1-43.9 [facility] Work Phone: Erythrocyte distribution width (RBC) [Ratio] 15.6 % 11.6-14.6 [facility] Work Phone: Immature granulocytes/100 WBC (Bld) 2.000 % 0.0-0.9 [facility] Work Phone: Comment on above: IG% - Immature Granu locytes (promyelocytes, myelocytes and metamyelocytes) > 1% indicates that a LEFT SHIFT is Present. MCH (RBC) [Entitic mass] 30.0 pg 27.0-32.0 [facility] Work Phone: Nucleated RBC/100 WBC (Bld) [Ratio] 0 % 0-5 [facility] Work Phone: MCHC Auto (RBC) [Mass/Vol]Or dered By: Dr. Baron on 06-29-2022 MCHC (RBC) [Mass/Vol] 32.7 g/dL 32-36 [facility] Comment on above: Delta: 31.1 on [id number]/26050 No Panel InformationOrdered By: Dr. Baron on 06-29-2022 30.0 pg 27.0-32.0 [facility] 15.6 % 11.6-14.6 [facility] 51.9 fl 35.1-43.9 [facility] 2.000 % 0.0-0.9 [facility] 0 % 0-5 [facility] Platelets bldOrdered By: Dr. Baron on 06-29-2022 Platelets (Bld) [#/Vol] 311 10*3/uL 150-450 [facility] Absolute lymphocyte countOrd ered By: Dr. Wilks on 06-26-2022 Lymphocytes Auto (Unsp spec) [#/Vol] 1.66 10*3/uL 0.83-4.51 [facility] Basophil percentageOrdered B y: Dr. Wilks on 06-26-2022 Basophil percentage 96 mg/dL 74-106 [facility] Basophil percentage 140 mmol/L 136-145 [facility] Basophil percentage 4.1 mmol/L 3.5-5.1 [facility] Basophil percentage 108 mmol/L 98-107 [facility] Basophils (Bld) [#/Vol] 8.6 10*3/uL 4.4-11.0 [facility] Basophils (Bld) [#/Vol] 5.7 10*3/uL 2.0-7.7 [facility] Basophils/100 WBC (Bld) 0.5 % 0-1 [facility] Basophils/100 WBC (Bld) 66.3 % 47-70 [facility] Basophils/100 WBC (Bld) 4.5 % 0-5 [facility] Basophil percentageon 2021 Chloride [Moles/Vol] 108 mmol/L 98-107 [facility] Work Phone: Eosinophils/100 WBC (Bld) 4.5 % 0-5 [facility] Work Phone: Glucose [Mass/Vol] 96 mg/dL 74-106 [facility] Work Phone: Neutrophils (Bld) [#/Vol] 5.7 10*3/uL 2.0-7.7 [facility] Work Phone: Neutrophils/100 WBC (Bld) 66.3 % 47-70 [facility] Work Phone: Potassium [Moles/Vol] 4.1 mmol/L 3.5-5.1 [facility] Work Phone: Sodium [Moles/Vol] 140 mmol/L 136-145 [facility] Work Phone: WBC (Bld) [#/Vol] 8.6 10*3/uL 4.4-11.0 [facility] Work Phone: Blood erythrocytes count (nu mber/volume)Ordered By: Dr. Wilks on 06-26-2022 RBC (Bld) [#/Vol] 3.91 10*6/uL 4.2-5.4 [facility] Blood hemoglobin measurement (mass/volume)Ordered By: Dr. Wilks on 06-26-2022 Hemoglobin (Bld) [Mass/Vol] 11.4 g/dL 12.0-15.0 [facility] Blood lymphocytes/100 leukoc ytesOrdered By: Dr. Wilks on 06-26-2022 Lymphocytes/100 WBC (Bld) 19.3 % 19-41 [facility] Blood monocytes/100 leukocyt esOrdered By: Dr. Wilks on 06-26-2022 Monocytes/100 WBC (Bld) 8.1 % 0-10 [facility] Blood platelet mean volumeOr dered By: Dr. Wilks on 06-26-2022 Platelet mean volume (Bld) [Entitic vol] 10.7 fL 6.2-12.0 [facility] Determination of erythrocyte mean corpuscular volume (MCV)Ordered By: Dr. Wilks on 06-26-2022 MCV (RBC) [Entitic vol] 93.6 fL 81-99 [facility] Hematocrit Auto (Bld) [Volum e fraction]Ordered By: Dr. Wilks on 06-26-2022 Hematocrit (Bld) [Volume fraction] 36.6 % 37-47 [facility] Laboratory - Chemistry and C hemistry - challengeon 06-26-2022 CO2 [Moles/Vol] 24.0 mmol/L 21.0-32.0 [facility] Work Phone: Magnesium [Mass/Vol] 2.4 mg/dL 1.6-2.6 [facility] Work Phone: Urea nitrogen/Creatinine [Mass ratio] 18.6 mg/mg 10-20 [facility] Work Phone: Laboratory - Hematology and Cell countson 06-26-2022 Erythrocyte distribution width (RBC) [Entitic vol] 53.4 fL 35.1-43.9 [facility] Work Phone: Erythrocyte distribution width (RBC) [Ratio] 15.6 % 11.6-14.6 [facility] Work Phone: Immature granulocytes/100 WBC (Bld) 1.300 % 0.0-0.9 [facility] Work Phone: Comment on above: IG% - Immature Granu locytes (promyelocytes, myelocytes and metamyelocytes) > 1% indicates that a LEFT SHIFT is Present. MCH (RBC) [Entitic mass] 29.2 pg 27.0-32.0 [facility] Work Phone: Nucleated RBC/100 WBC (Bld) [Ratio] 0 % 0-5 [facility] Work Phone: MCHC Auto (RBC) [Mass/Vol]Or dered By: Dr. Wilks on 06-26-2022 MCHC (RBC) [Mass/Vol] 31.1 g/dL 32-36 [facility] No Panel Informationon 06-26 Estimated GFR (MDRD) Amer 97 mL/min >60 [facility] Work Phone: Comment on above: GFR Calc Estimated GFR (MDRD) Non-Af Amer 80 mL/min >60 [facility] Work Phone: Comment on above: Non- GFR Calc No Panel InformationOrdered By: Dr. Wilks on 06-26-2022 29.2 pg 27.0-32.0 [facility] 15.6 % 11.6-14.6 [facility] 53.4 fl 35.1-43.9 [facility] 1.300 % 0.0-0.9 [facility] 0 % 0-5 [facility] 80 mL/min >60 [facility] 97 mL/min >60 [facility] 18.6 RATIO 10-20 [facility] 2.4 mg/dL 1.6-2.6 [facility] 24.0 mmol/L 21.0-32.0 [facility] Platelets bldOrdered By: Dr. Wilks on 06-26-2022 Platelets (Bld) [#/Vol] 273 10*3/uL 150-450 [facility] Serum or plasma C reactive p rotein measurement (mass/volume)Ordered By: Dr. Wilks on 06-26-2022 CRP [Mass/Vol] 21.20 mg/L 0.0-3.0 [facility] Comment on above: C-Reactive Protein ( CRP) provides useful information for thediagnosis, therapy and monitoring of inflammatory processesand associated diseases. For the evaluation of Relative Riskfor Cardiovascular Disease, a High Sensitivity CRP (HSCRP)should be ordered. Serum or plasma calcium chay urement (mass/volume)Ordered By: Dr. Wilks on 06-26-2022 Calcium [Mass/Vol] 10.6 mg/dL 8.5-10.1 [facility] Serum or plasma creatinine m easurement (mass/volume)Ordered By: Dr. Wilks on 06-26-2022 Creatinine [Mass/Vol] 0.75 mg/dL 0.55-1.02 [facility] Comment on above: The validity of the calculated GFR & GFRAA in patients over 70 years has not been determined. Clinical correlation is essential. Serum or plasma urea nitroge n measurement (mass/volume)Ordered By: Dr. Wilks on 06-26-2022 Urea nitrogen [Mass/Vol] 14 mg/dL 7-18 [facility] Thin prep Papanicolaou smear with manual screeningOrdered By: Dr. Wilks on 06-26-2022 Thin prep Papanicolaou smear with manual screening 8 5-15 [facility] Absolute lymphocyte countOrd ered By: Dr. Wilks on 06-21-2022 Lymphocytes Auto (Unsp spec) [#/Vol] 1.26 10*3/uL 0.83-4.51 [facility] Basophil percentageOrdered B y: Dr. Wilks on 06-21-2022 Basophil percentage 106 mg/dL 74-106 [facility] Basophil percentage 139 mmol/L 136-145 [facility] Basophil percentage 4.1 mmol/L 3.5-5.1 [facility] Basophil percentage 109 mmol/L 98-107 [facility] Basophils (Bld) [#/Vol] 7.3 10*3/uL 4.4-11.0 [facility] Basophils (Bld) [#/Vol] 4.7 10*3/uL 2.0-7.7 [facility] Basophils/100 WBC (Bld) 0.8 % 0-1 [facility] Basophils/100 WBC (Bld) 64.5 % 47-70 [facility] Basophils/100 WBC (Bld) 3.3 % 0-5 [facility] Basophil percentageon 2021 Chloride [Moles/Vol] 109 mmol/L 98-107 [facility] Work Phone: Eosinophils/100 WBC (Bld) 3.3 % 0-5 [facility] Work Phone: Glucose [Mass/Vol] 106 mg/dL 74-106 [facility] Work Phone: Comment on above: Fasting Glucose resu lt from 100 to 125 mg/dL suggests IMPAIRED HOMEOSTASIS per A.D.A. criteria. Neutrophils (Bld) [#/Vol] 4.7 10*3/uL 2.0-7.7 [facility] Work Phone: Neutrophils/100 WBC (Bld) 64.5 % 47-70 [facility] Work Phone: Potassium [Moles/Vol] 4.1 mmol/L 3.5-5.1 [facility] Work Phone: Sodium [Moles/Vol] 139 mmol/L 136-145 [facility] Work Phone: WBC (Bld) [#/Vol] 7.3 10*3/uL 4.4-11.0 [facility] Work Phone: Blood erythrocytes count (nu mber/volume)Ordered By: Dr. Wilks on 06-21-2022 RBC (Bld) [#/Vol] 3.83 10*6/uL 4.2-5.4 [facility] Blood hemoglobin measurement (mass/volume)Ordered By: Dr. Wilks on 06-21-2022 Hemoglobin (Bld) [Mass/Vol] 11.2 g/dL 12.0-15.0 [facility] Blood lymphocytes/100 leukoc ytesOrdered By: Dr. Wilks on 06-21-2022 Lymphocytes/100 WBC (Bld) 17.2 % 19-41 [facility] Blood monocytes/100 leukocyt esOrdered By: Dr. Wilks on 06-21-2022 Monocytes/100 WBC (Bld) 13.5 % 0-10 [facility] Blood platelet mean volumeOr dered By: Dr. Wilks on 06-21-2022 Platelet mean volume (Bld) [Entitic vol] 10.6 fL 6.2-12.0 [facility] Determination of erythrocyte mean corpuscular volume (MCV)Ordered By: Dr. Wilks on 06-21-2022 MCV (RBC) [Entitic vol] 94.8 fL 81-99 [facility] Hematocrit Auto (Bld) [Volum e fraction]Ordered By: Dr. Wilks on 06-21-2022 Hematocrit (Bld) [Volume fraction] 36.3 % 37-47 [facility] Laboratory - Chemistry and C hemistry - challengeon 06-21-2022 CO2 [Moles/Vol] 25.0 mmol/L 21.0-32.0 [facility] Work Phone: Magnesium [Mass/Vol] 2.5 mg/dL 1.6-2.6 [facility] Work Phone: Urea nitrogen/Creatinine [Mass ratio] 21.6 mg/mg 10-20 [facility] Work Phone: Laboratory - Hematology and Cell countson 06-21-2022 Erythrocyte distribution width (RBC) [Entitic vol] 55.5 fL 35.1-43.9 [facility] Work Phone: Erythrocyte distribution width (RBC) [Ratio] 15.9 % 11.6-14.6 [facility] Work Phone: Immature granulocytes/100 WBC (Bld) 0.700 % 0.0-0.9 [facility] Work Phone: Comment on above: IG% - Immature Granu locytes (promyelocytes, myelocytes and metamyelocytes) > 1% indicates that a LEFT SHIFT is Present. MCH (RBC) [Entitic mass] 29.2 pg 27.0-32.0 [facility] Work Phone: Nucleated RBC/100 WBC (Bld) [Ratio] 0 % 0-5 [facility] Work Phone: MCHC Auto (RBC) [Mass/Vol]Or dered By: Dr. Wilks on 06-21-2022 MCHC (RBC) [Mass/Vol] 30.9 g/dL 32-36 [facility] No Panel Informationon 06-21 Estimated GFR (MDRD) Amer 86 mL/min >60 [facility] Work Phone: Comment on above: GFR Calc Estimated GFR (MDRD) Non-Af Amer 71 mL/min >60 [facility] Work Phone: Comment on above: Non- GFR Calc No Panel InformationOrdered By: Dr. Wilks on 06-21-2022 29.2 pg 27.0-32.0 [facility] 15.9 % 11.6-14.6 [facility] 55.5 fl 35.1-43.9 [facility] 0.700 % 0.0-0.9 [facility] 0 % 0-5 [facility] 71 mL/min >60 [facility] 86 mL/min >60 [facility] 21.6 RATIO 10-20 [facility] 2.5 mg/dL 1.6-2.6 [facility] 25.0 mmol/L 21.0-32.0 [facility] Platelets bldOrdered By: Dr. Wilks on 06-21-2022 Platelets (Bld) [#/Vol] 266 10*3/uL 150-450 [facility] Serum or plasma calcium chay urement (mass/volume)Ordered By: Dr. Wilks on 06-21-2022 Calcium [Mass/Vol] 10.4 mg/dL 8.5-10.1 [facility] Serum or plasma creatinine m easurement (mass/volume)Ordered By: Dr. Wilks on 06-21-2022 Creatinine [Mass/Vol] 0.83 mg/dL 0.55-1.02 [facility] Comment on above: The validity of the calculated GFR & GFRAA in patients over 70 years has not been determined. Clinical correlation is essential. Serum or plasma urea nitroge n measurement (mass/volume)Ordered By: Dr. Wilks on 06-21-2022 Urea nitrogen [Mass/Vol] 18 mg/dL 7-18 [facility] Thin prep Papanicolaou smear with manual screeningOrdered By: Dr. Wilks on 06-21-2022 Thin prep Papanicolaou smear with manual screening 5 5-15 [facility] Absolute lymphocyte countOrd ered By: Dr. Wilsk on 06-20-2022 Lymphocytes Auto (Unsp spec) [#/Vol] 0.90 10*3/uL 0.83-4.51 [facility] Basophil percentageOrdered B y: Dr. Wilks on 06-20-2022 Basophil percentage 137 mg/dL 74-106 [facility] Basophil percentage 139 mmol/L 136-145 [facility] Basophil percentage 3.8 mmol/L 3.5-5.1 [facility] Basophil percentage 109 mmol/L 98-107 [facility] Basophils (Bld) [#/Vol] 8.7 10*3/uL 4.4-11.0 [facility] Basophils (Bld) [#/Vol] 6.4 10*3/uL 2.0-7.7 [facility] Basophils/100 WBC (Bld) 0.9 % 0-1 [facility] Basophils/100 WBC (Bld) 73.6 % 47-70 [facility] Basophils/100 WBC (Bld) 2.4 % 0-5 [facility] Basophil percentageon 2021 Chloride [Moles/Vol] 109 mmol/L 98-107 [facility] Work Phone: Eosinophils/100 WBC (Bld) 2.4 % 0-5 [facility] Work Phone: Glucose [Mass/Vol] 137 mg/dL 74-106 [facility] Work Phone: Comment on above: Fasting Glucose resu lt greater than or equal to 126 mg/dL suggests DIABETES MELLITUS per A.D.A. criteria. Neutrophils (Bld) [#/Vol] 6.4 10*3/uL 2.0-7.7 [facility] Work Phone: Neutrophils/100 WBC (Bld) 73.6 % 47-70 [facility] Work Phone: Potassium [Moles/Vol] 3.8 mmol/L 3.5-5.1 [facility] Work Phone: Sodium [Moles/Vol] 139 mmol/L 136-145 [facility] Work Phone: WBC (Bld) [#/Vol] 8.7 10*3/uL 4.4-11.0 [facility] Work Phone: Blood erythrocytes count (nu mber/volume)Ordered By: Dr. Wilks on 06-20-2022 RBC (Bld) [#/Vol] 3.78 10*6/uL 4.2-5.4 [facility] Blood hemoglobin measurement (mass/volume)Ordered By: Dr. Wilks on 06-20-2022 Hemoglobin (Bld) [Mass/Vol] 11.5 g/dL 12.0-15.0 [facility] Blood lymphocytes/100 leukoc ytesOrdered By: Dr. Wilks on 06-20-2022 Lymphocytes/100 WBC (Bld) 10.4 % 19-41 [facility] Blood monocytes/100 leukocyt esOrdered By: Dr. Wilks on 06-20-2022 Monocytes/100 WBC (Bld) 12.1 % 0-10 [facility] Blood platelet mean volumeOr dered By: Dr. Wilks on 06-20-2022 Platelet mean volume (Bld) [Entitic vol] 10.6 fL 6.2-12.0 [facility] Determination of erythrocyte mean corpuscular volume (MCV)Ordered By: Dr. Wilks on 06-20-2022 MCV (RBC) [Entitic vol] 94.2 fL 81-99 [facility] Hematocrit Auto (Bld) [Volum e fraction]Ordered By: Dr. Wilks on 06-20-2022 Hematocrit (Bld) [Volume fraction] 35.6 % 37-47 [facility] Laboratory - Chemistry and C hemistry - challengeon 06-20-2022 CO2 [Moles/Vol] 25.0 mmol/L 21.0-32.0 [facility] Work Phone: Magnesium [Mass/Vol] 2.5 mg/dL 1.6-2.6 [facility] Work Phone: Urea nitrogen/Creatinine [Mass ratio] 20.5 mg/mg 10-20 [facility] Work Phone: Laboratory - Hematology and Cell countson 06-20-2022 Erythrocyte distribution width (RBC) [Entitic vol] 53.9 fL 35.1-43.9 [facility] Work Phone: Erythrocyte distribution width (RBC) [Ratio] 15.7 % 11.6-14.6 [facility] Work Phone: Immature granulocytes/100 WBC (Bld) 0.600 % 0.0-0.9 [facility] Work Phone: Comment on above: IG% - Immature Granu locytes (promyelocytes, myelocytes and metamyelocytes) > 1% indicates that a LEFT SHIFT is Present. MCH (RBC) [Entitic mass] 30.4 pg 27.0-32.0 [facility] Work Phone: Nucleated RBC/100 WBC (Bld) [Ratio] 0 % 0-5 [facility] Work Phone: MCHC Auto (RBC) [Mass/Vol]Or dered By: Dr. Wilks on 06-20-2022 MCHC (RBC) [Mass/Vol] 32.3 g/dL 32-36 [facility] No Panel Informationon 06-20 Estimated GFR (MDRD) Amer 86 mL/min >60 [facility] Work Phone: Comment on above: GFR Calc Estimated GFR (MDRD) Non-Af Amer 71 mL/min >60 [facility] Work Phone: Comment on above: Non- GFR Calc No Panel InformationOrdered By: Dr. Wilks on 06-20-2022 30.4 pg 27.0-32.0 [facility] 15.7 % 11.6-14.6 [facility] 53.9 fl 35.1-43.9 [facility] 0.600 % 0.0-0.9 [facility] 0 % 0-5 [facility] 71 mL/min >60 [facility] 86 mL/min >60 [facility] 20.5 RATIO 10-20 [facility] 2.5 mg/dL 1.6-2.6 [facility] 25.0 mmol/L 21.0-32.0 [facility] Platelets bldOrdered By: Dr. Wilks on 06-20-2022 Platelets (Bld) [#/Vol] 276 10*3/uL 150-450 [facility] Serum or plasma calcium chay urement (mass/volume)Ordered By: Dr. Wilks on 06-20-2022 Calcium [Mass/Vol] 10.8 mg/dL 8.5-10.1 [facility] Serum or plasma creatinine m easurement (mass/volume)Ordered By: Dr. Wilks on 06-20-2022 Creatinine [Mass/Vol] 0.83 mg/dL 0.55-1.02 [facility] Comment on above: The validity of the calculated GFR & GFRAA in patients over 70 years has not been determined. Clinical correlation is essential. Serum or plasma urea nitroge n measurement (mass/volume)Ordered By: Dr. Wilks on 06-20-2022 Urea nitrogen [Mass/Vol] 17 mg/dL 7-18 [facility] Thin prep Papanicolaou smear with manual screeningOrdered By: Dr. Wilks on 06-20-2022 Thin prep Papanicolaou smear with manual screening 5 5-15 [facility] Absolute lymphocyte countOrd ered By: Dr. Wilks on 06-13-2022 Lymphocytes Auto (Unsp spec) [#/Vol] 1.35 10*3/uL 0.83-4.51 [facility] Basophil percentageOrdered B y: Dr. Wilks on 06-13-2022 Basophil percentage 97 mg/dL 74-106 [facility] Basophil percentage 141 mmol/L 136-145 [facility] Basophil percentage 4.4 mmol/L 3.5-5.1 [facility] Basophil percentage 109 mmol/L 98-107 [facility] Basophils (Bld) [#/Vol] 7.4 10*3/uL 4.4-11.0 [facility] Basophils (Bld) [#/Vol] 4.7 10*3/uL 2.0-7.7 [facility] Basophils/100 WBC (Bld) 0.8 % 0-1 [facility] Basophils/100 WBC (Bld) 64.1 % 47-70 [facility] Basophils/100 WBC (Bld) 5.8 % 0-5 [facility] Basophil percentageon 2021 Chloride [Moles/Vol] 109 mmol/L 98-107 [facility] Work Phone: Eosinophils/100 WBC (Bld) 5.8 % 0-5 [facility] Work Phone: Glucose [Mass/Vol] 97 mg/dL 74-106 [facility] Work Phone: Neutrophils (Bld) [#/Vol] 4.7 10*3/uL 2.0-7.7 [facility] Work Phone: Neutrophils/100 WBC (Bld) 64.1 % 47-70 [facility] Work Phone: Potassium [Moles/Vol] 4.4 mmol/L 3.5-5.1 [facility] Work Phone: Sodium [Moles/Vol] 141 mmol/L 136-145 [facility] Work Phone: WBC (Bld) [#/Vol] 7.4 10*3/uL 4.4-11.0 [facility] Work Phone: Blood erythrocytes count (nu mber/volume)Ordered By: Dr. Wilks on 06-13-2022 RBC (Bld) [#/Vol] 3.62 10*6/uL 4.2-5.4 [facility] Blood hemoglobin measurement (mass/volume)Ordered By: Dr. Wilks on 06-13-2022 Hemoglobin (Bld) [Mass/Vol] 11.0 g/dL 12.0-15.0 [facility] Blood lymphocytes/100 leukoc ytesOrdered By: Dr. Wilks on 06-13-2022 Lymphocytes/100 WBC (Bld) 18.3 % 19-41 [facility] Blood monocytes/100 leukocyt esOrdered By: Dr. Wilks on 06-13-2022 Monocytes/100 WBC (Bld) 10.2 % 0-10 [facility] Blood platelet mean volumeOr dered By: Dr. Wilks on 06-13-2022 Platelet mean volume (Bld) [Entitic vol] 9.9 fL 6.2-12.0 [facility] Determination of erythrocyte mean corpuscular volume (MCV)Ordered By: Dr. Wilks on 06-13-2022 MCV (RBC) [Entitic vol] 97.2 fL 81-99 [facility] Hematocrit Auto (Bld) [Volum e fraction]Ordered By: Dr. Wilks on 06-13-2022 Hematocrit (Bld) [Volume fraction] 35.2 % 37-47 [facility] Laboratory - Chemistry and C hemistry - challengeon 06-13-2022 CO2 [Moles/Vol] 29.0 mmol/L 21.0-32.0 [facility] Work Phone: Magnesium [Mass/Vol] 2.6 mg/dL 1.6-2.6 [facility] Work Phone: Urea nitrogen/Creatinine [Mass ratio] 22.0 mg/mg 10-20 [facility] Work Phone: Laboratory - Hematology and Cell countson 06-13-2022 Erythrocyte distribution width (RBC) [Entitic vol] 56.2 fL 35.1-43.9 [facility] Work Phone: Erythrocyte distribution width (RBC) [Ratio] 15.9 % 11.6-14.6 [facility] Work Phone: Immature granulocytes/100 WBC (Bld) 0.800 % 0.0-0.9 [facility] Work Phone: Comment on above: IG% - Immature Granu locytes (promyelocytes, myelocytes and metamyelocytes) > 1% indicates that a LEFT SHIFT is Present. MCH (RBC) [Entitic mass] 30.4 pg 27.0-32.0 [facility] Work Phone: Nucleated RBC/100 WBC (Bld) [Ratio] 0 % 0-5 [facility] Work Phone: MCHC Auto (RBC) [Mass/Vol]Or dered By: Dr. Wilks on 06-13-2022 MCHC (RBC) [Mass/Vol] 31.3 g/dL 32-36 [facility] No Panel Informationon 06-13 Estimated GFR (MDRD) Amer 82 mL/min >60 [facility] Work Phone: Comment on above: GFR Calc Estimated GFR (MDRD) Non-Af Amer 68 mL/min >60 [facility] Work Phone: Comment on above: Non- GFR Calc Ionized Calcium 6.5 mg/dL 4.5-5.6 [facility] Work Phone: Comment on above: Performed at: [address] [id number] Director: Alexis Thomas PhD, Phone: [phone] Parathyroid Hormone (Intact) 81.7 pg/mL 18.4-80.1 [facility] Work Phone: No Panel InformationOrdered By: Dr. Wilks on 06-13-2022 30.4 pg 27.0-32.0 [facility] 15.9 % 11.6-14.6 [facility] 56.2 fl 35.1-43.9 [facility] 0.800 % 0.0-0.9 [facility] 0 % 0-5 [facility] 68 mL/min >60 [facility] 82 mL/min >60 [facility] 22.0 RATIO 10-20 [facility] 2.6 mg/dL 1.6-2.6 [facility] 29.0 mmol/L 21.0-32.0 [facility] 81.7 pg/mL 18.4-80.1 [facility] 6.5 mg/dL 4.5-5.6 [facility] Platelets bldOrdered By: Dr. Wilks on 06-13-2022 Platelets (Bld) [#/Vol] 281 10*3/uL 150-450 [facility] Serum or plasma calcium chay urement (mass/volume)Ordered By: Dr. Wilks on 06-13-2022 Calcium [Mass/Vol] 10.8 mg/dL 8.5-10.1 [facility] Serum or plasma creatinine m easurement (mass/volume)Ordered By: Dr. Wilks on 06-13-2022 Creatinine [Mass/Vol] 0.86 mg/dL 0.55-1.02 [facility] Comment on above: The validity of the calculated GFR & GFRAA in patients over 70 years has not been determined. Clinical correlation is essential. Serum or plasma urea nitroge n measurement (mass/volume)Ordered By: Dr. Wilks on 06-13-2022 Urea nitrogen [Mass/Vol] 19 mg/dL 03-13 [facility] Thin prep Papanicolaou smear with manual screeningOrdered By: Dr. Wilks on 06-13-2022 Thin prep Papanicolaou smear with manual screening 3 5-15 [facility] Absolute lymphocyte countOrd ered By: Dr. Wilks on 06-06-2022 Lymphocytes Auto (Unsp spec) [#/Vol] 1.27 10*3/uL 0.83-4.51 [facility] Bacteria identified Cx Nom ( U)Ordered By: Dr. Wilks on 06-06-2022 Culture, urine Mixed Gram Pos & Gram Neg Org [facility] Basophil percentageOrdered B y: Dr. Wilks on 06-06-2022 Basophil percentage 90 mg/dL 74-106 [facility] Basophil percentage 141 mmol/L 136-145 [facility] Basophil percentage 4.5 mmol/L 3.5-5.1 [facility] Basophil percentage 108 mmol/L 98-107 [facility] Basophils (Bld) [#/Vol] 7.0 10*3/uL 4.4-11.0 [facility] Basophils (Bld) [#/Vol] 4.4 10*3/uL 2.0-7.7 [facility] Basophils/100 WBC (Bld) 0.9 % 0-1 [facility] Basophils/100 WBC (Bld) 62.6 % 47-70 [facility] Basophils/100 WBC (Bld) 7.1 % 0-5 [facility] Basophil percentageon 2021 Chloride [Moles/Vol] 108 mmol/L 98-107 [facility] Work Phone: Eosinophils/100 WBC (Bld) 7.1 % 0-5 [facility] Work Phone: Glucose [Mass/Vol] 90 mg/dL 74-106 [facility] Work Phone: Neutrophils (Bld) [#/Vol] 4.4 10*3/uL 2.0-7.7 [facility] Work Phone: Neutrophils/100 WBC (Bld) 62.6 % 47-70 [facility] Work Phone: Potassium [Moles/Vol] 4.5 mmol/L 3.5-5.1 [facility] Work Phone: Sodium [Moles/Vol] 141 mmol/L 136-145 [facility] Work Phone: WBC (Bld) [#/Vol] 7.0 10*3/uL 4.4-11.0 [facility] Work Phone: Blood erythrocytes count (nu mber/volume)Ordered By: Dr. Wilks on 06-06-2022 RBC (Bld) [#/Vol] 3.47 10*6/uL 4.2-5.4 [facility] Blood hemoglobin measurement (mass/volume)Ordered By: Dr. Wilks on 06-06-2022 Hemoglobin (Bld) [Mass/Vol] 10.6 g/dL 12.0-15.0 [facility] Blood lymphocytes/100 leukoc ytesOrdered By: Dr. Wikls on 06-06-2022 Lymphocytes/100 WBC (Bld) 18.3 % 19-41 [facility] Blood monocytes/100 leukocyt esOrdered By: Dr. Wilks on 06-06-2022 Monocytes/100 WBC (Bld) 10.5 % 0-10 [facility] Blood platelet mean volumeOr dered By: Dr. Wilks on 06-06-2022 Platelet mean volume (Bld) [Entitic vol] 10.6 fL 6.2-12.0 [facility] Determination of erythrocyte mean corpuscular volume (MCV)Ordered By: Dr. Wilks on 06-06-2022 MCV (RBC) [Entitic vol] 97.4 fL 81-99 [facility] Hematocrit Auto (Bld) [Volum e fraction]Ordered By: Dr. Wilks on 06-06-2022 Hematocrit (Bld) [Volume fraction] 33.8 % 37-47 [facility] Laboratory - Chemistry and C hemistry - challengeon 06-06-2022 CO2 [Moles/Vol] 27.0 mmol/L 21.0-32.0 [facility] Work Phone: Magnesium [Mass/Vol] 2.3 mg/dL 1.6-2.6 [facility] Work Phone: Urea nitrogen/Creatinine [Mass ratio] 22.9 mg/mg 10-20 [facility] Work Phone: Laboratory - Hematology and Cell countson 10-11-2022 Erythrocyte distribution width (RBC) [Entitic vol] 54.7 fL 35.1-43.9 [facility] Work Phone: Erythrocyte distribution width (RBC) [Ratio] 15.3 % 11.6-14.6 [facility] Work Phone: Immature granulocytes/100 WBC (Bld) 0.600 % 0.0-0.9 [facility] Work Phone: Comment on above: IG% - Immature Granu locytes (promyelocytes, myelocytes and metamyelocytes) > 1% indicates that a LEFT SHIFT is Present. MCH (RBC) [Entitic mass] 30.5 pg 27.0-32.0 [facility] Work Phone: Nucleated RBC/100 WBC (Bld) [Ratio] 0 % 0-5 [facility] Work Phone: MCHC Auto (RBC) [Mass/Vol]Or dered By: Dr. Wilks on 06-06-2022 MCHC (RBC) [Mass/Vol] 31.4 g/dL 32-36 [facility] No Panel Informationon 06-06 Estimated GFR (MDRD) Amer 81 mL/min >60 [facility] Work Phone: Comment on above: GFR Calc Estimated GFR (MDRD) Non-Af Amer 67 mL/min >60 [facility] Work Phone: Comment on above: Non- GFR Calc No Panel InformationOrdered By: Dr. Wilks on 06-06-2022 30.5 pg 27.0-32.0 [facility] 15.3 % 11.6-14.6 [facility] 54.7 fl 35.1-43.9 [facility] 0.600 % 0.0-0.9 [facility] 0 % 0-5 [facility] 67 mL/min >60 [facility] 81 mL/min >60 [facility] 22.9 RATIO 10-20 [facility] 2.3 mg/dL 1.6-2.6 [facility] 27.0 mmol/L 21.0-32.0 [facility] Platelets bldOrdered By: Dr. Wilks on 06-06-2022 Platelets (Bld) [#/Vol] 280 10*3/uL 150-450 [facility] Serum or plasma calcium chay urement (mass/volume)Ordered By: Dr. Wilks on 06-06-2022 Calcium [Mass/Vol] 10.3 mg/dL 8.5-10.1 [facility] Serum or plasma creatinine m easurement (mass/volume)Ordered By: Dr. Wilks on 06-06-2022 Creatinine [Mass/Vol] 0.87 mg/dL 0.55-1.02 [facility] Comment on above: The validity of the calculated GFR & GFRAA in patients over 70 years has not been determined. Clinical correlation is essential. Serum or plasma urea nitroge n measurement (mass/volume)Ordered By: Dr. Wilks on 06-06-2022 Urea nitrogen [Mass/Vol] 20 mg/dL 7-18 [facility] Thin prep Papanicolaou smear with manual screeningOrdered By: Dr. Wilks on 06-06-2022 Thin prep Papanicolaou smear with manual screening 6 5-15 [facility] Bilirubin Test strip Ql (U)O rdered By: Dr. Wilks on 06-04-2022 Bilirubin Ql (U) Negative Negative [facility] Ketones Test strip Ql (U)Ord ered By: Dr. Wilks on 06-04-2022 Ketones Ql (U) Negative Negative [facility] Nitrite Test strip Ql (U)Ord ered By: Dr. Wilks on 06-04-2022 Nitrite Ql (U) Negative Negative [facility] Protein Test strip Ql (U)Ord ered By: Dr. Wilks on 06-04-2022 Protein Ql (U) Negative Negative [facility] Urine blood detectionOrdered By: Dr. Wilks on 06-04-2022 RBC Ql (U) 10 /ul Negative [facility] Urine clarityOrdered By: Dr. Wilks on 06-04-2022 Clarity (U) Sl. Cloudy Clear [facility] Urine color determinationOrd ered By: Dr. Wilks on 06-04-2022 Color (U) Yellow Yellow [facility] Urine glucose detectionOrder ed By: Dr. Wilks on 06-04-2022 Glucose Ql (U) Normal mg/dl Normal [facility] Urine leukocyte esterase det ection by dipstickOrdered By: Dr. Wilks on 06-04-2022 Leukocyte esterase Test strip Ql (U) 25 /ul Negative [facility] Urine pHOrdered By: Dr. Aviva ku on 06-04-2022 pH (U) 6.0 [pH] 5.0 - 8.0 [facility] Urine specific gravity measu rementOrdered By: Dr. Wilks on 06-04-2022 Specific gravity (U) [Rel density] 1.015 1.002-1.030 [facility] Urobilinogen Auto test strip Ql (U)Ordered By: Dr. Wilks on 06-04-2022 Urobilinogen Ql (U) Normal mg/dl Normal [facility] Absolute lymphocyte countOrd ered By: Dr. Wilks on 05-30-2022 Lymphocytes Auto (Unsp spec) [#/Vol] 1.50 10*3/uL 0.83-4.51 [facility] Basophil percentageOrdered B y: Dr. Wilks on 05-30-2022 Basophil percentage 83 mg/dL 74-106 [facility] Basophil percentage 137 mmol/L 136-145 [facility] Basophil percentage 4.2 mmol/L 3.5-5.1 [facility] Basophil percentage 105 mmol/L 98-107 [facility] Basophils (Bld) [#/Vol] 9.0 10*3/uL 4.4-11.0 [facility] Basophils (Bld) [#/Vol] 6.2 10*3/uL 2.0-7.7 [facility] Basophils/100 WBC (Bld) 0.8 % 0-1 [facility] Basophils/100 WBC (Bld) 69.5 % 47-70 [facility] Basophils/100 WBC (Bld) 3.6 % 0-5 [facility] Basophil percentageon 2021 Chloride [Moles/Vol] 105 mmol/L 98-107 [facility] Work Phone: Eosinophils/100 WBC (Bld) 3.6 % 0-5 [facility] Work Phone: Glucose [Mass/Vol] 83 mg/dL 74-106 [facility] Work Phone: Neutrophils (Bld) [#/Vol] 6.2 10*3/uL 2.0-7.7 [facility] Work Phone: Neutrophils/100 WBC (Bld) 69.5 % 47-70 [facility] Work Phone: Potassium [Moles/Vol] 4.2 mmol/L 3.5-5.1 [facility] Work Phone: Sodium [Moles/Vol] 137 mmol/L 136-145 [facility] Work Phone: WBC (Bld) [#/Vol] 9.0 10*3/uL 4.4-11.0 [facility] Work Phone: Blood erythrocytes count (nu mber/volume)Ordered By: Dr. Wilks on 05-30-2022 RBC (Bld) [#/Vol] 3.73 10*6/uL 4.2-5.4 [facility] Blood hemoglobin measurement (mass/volume)Ordered By: Dr. Wilks on 05-30-2022 Hemoglobin (Bld) [Mass/Vol] 11.6 g/dL 12.0-15.0 [facility] Blood lymphocytes/100 leukoc ytesOrdered By: Dr. Wilks on 05-30-2022 Lymphocytes/100 WBC (Bld) 16.7 % 19-41 [facility] Blood monocytes/100 leukocyt esOrdered By: Dr. Wilks on 05-30-2022 Monocytes/100 WBC (Bld) 8.4 % 0-10 [facility] Blood platelet mean volumeOr dered By: Dr. Wilks on 05-30-2022 Platelet mean volume (Bld) [Entitic vol] 10.2 fL 6.2-12.0 [facility] Determination of erythrocyte mean corpuscular volume (MCV)Ordered By: Dr. Wilks on 05-30-2022 MCV (RBC) [Entitic vol] 96.5 fL 81-99 [facility] Hematocrit Auto (Bld) [Volum e fraction]Ordered By: Dr. Wilks on 05-30-2022 Hematocrit (Bld) [Volume fraction] 36.0 % 37-47 [facility] Laboratory - Chemistry and C hemistry - challengeon 05-30-2022 CO2 [Moles/Vol] 24.0 mmol/L 21.0-32.0 [facility] Work Phone: Magnesium [Mass/Vol] 2.3 mg/dL 1.6-2.6 [facility] Work Phone: Urea nitrogen/Creatinine [Mass ratio] 22.1 mg/mg 10-20 [facility] Work Phone: Laboratory - Hematology and Cell countson 05-30-2022 Erythrocyte distribution width (RBC) [Entitic vol] 53.2 fL 35.1-43.9 [facility] Work Phone: Erythrocyte distribution width (RBC) [Ratio] 15.2 % 11.6-14.6 [facility] Work Phone: Immature granulocytes/100 WBC (Bld) 1.000 % 0.0-0.9 [facility] Work Phone: Comment on above: IG% - Immature Granu locytes (promyelocytes, myelocytes and metamyelocytes) > 1% indicates that a LEFT SHIFT is Present. MCH (RBC) [Entitic mass] 31.1 pg 27.0-32.0 [facility] Work Phone: Nucleated RBC/100 WBC (Bld) [Ratio] 0 % 0-5 [facility] Work Phone: MCHC Auto (RBC) [Mass/Vol]Or dered By: Dr. Wilks on 05-30-2022 MCHC (RBC) [Mass/Vol] 32.2 g/dL 32-36 [facility] No Panel Informationon 05-30 Estimated GFR (MDRD) Amer 60 mL/min >60 [facility] Work Phone: Comment on above: GFR Calc Estimated GFR (MDRD) Non-Af Amer 50 mL/min >60 [facility] Work Phone: Comment on above: Non- GFR Calc No Panel InformationOrdered By: Dr. Wilks on 05-30-2022 31.1 pg 27.0-32.0 [facility] 15.2 % 11.6-14.6 [facility] 53.2 fl 35.1-43.9 [facility] 1.000 % 0.0-0.9 [facility] 0 % 0-5 [facility] 50 mL/min >60 [facility] 60 mL/min >60 [facility] 22.1 RATIO 10-20 [facility] 2.3 mg/dL 1.6-2.6 [facility] 24.0 mmol/L 21.0-32.0 [facility] Platelets bldOrdered By: Dr. Wilks on 05-30-2022 Platelets (Bld) [#/Vol] 384 10*3/uL 150-450 [facility] Serum or plasma calcium chay urement (mass/volume)Ordered By: Dr. Wilks on 05-30-2022 Calcium [Mass/Vol] 10.7 mg/dL 8.5-10.1 [facility] Serum or plasma creatinine m easurement (mass/volume)Ordered By: Dr. Wilks on 05-30-2022 Creatinine [Mass/Vol] 1.13 mg/dL 0.55-1.02 [facility] Comment on above: The validity of the calculated GFR & GFRAA in patients over 70 years has not been determined. Clinical correlation is essential. Serum or plasma urea nitroge n measurement (mass/volume)Ordered By: Dr. Wilks on 05-30-2022 Urea nitrogen [Mass/Vol] 25 mg/dL 7-18 [facility] Thin prep Papanicolaou smear with manual screeningOrdered By: Dr. Wilks on 05-30-2022 Thin prep Papanicolaou smear with manual screening 8 5-15 [facility] Basophil percentageOrdered B y: Dr. Wilks on 05-23-2022 Basophil percentage 108 mg/dL 74-106 [facility] Basophil percentage 138 mmol/L 136-145 [facility] Basophil percentage 4.1 mmol/L 3.5-5.1 [facility] Basophil percentage 105 mmol/L 98-107 [facility] Basophils (Bld) [#/Vol] 8.9 10*3/uL 4.4-11.0 [facility] Basophil percentageon 2021 Chloride [Moles/Vol] 105 mmol/L 98-107 [facility] Work Phone: Glucose [Mass/Vol] 108 mg/dL 74-106 [facility] Work Phone: Comment on above: Fasting Glucose resu lt from 100 to 125 mg/dL suggests IMPAIRED HOMEOSTASIS per A.D.A. criteria. Potassium [Moles/Vol] 4.1 mmol/L 3.5-5.1 [facility] Work Phone: Sodium [Moles/Vol] 138 mmol/L 136-145 [facility] Work Phone: WBC (Bld) [#/Vol] 8.9 10*3/uL 4.4-11.0 [facility] Work Phone: Blood erythrocytes count (nu mber/volume)Ordered By: Dr. Wilks on 05-23-2022 RBC (Bld) [#/Vol] 3.69 10*6/uL 4.2-5.4 [facility] Blood hemoglobin measurement (mass/volume)Ordered By: Dr. Wilks on 05-23-2022 Hemoglobin (Bld) [Mass/Vol] 11.5 g/dL 12.0-15.0 [facility] Blood platelet mean volumeOr dered By: Dr. Wilks on 05-23-2022 Platelet mean volume (Bld) [Entitic vol] 10.5 fL 6.2-12.0 [facility] Determination of erythrocyte mean corpuscular volume (MCV)Ordered By: Dr. Wilks on 05-23-2022 MCV (RBC) [Entitic vol] 96.2 fL 81-99 [facility] Hematocrit Auto (Bld) [Volum e fraction]Ordered By: Dr. Wilks on 05-23-2022 Hematocrit (Bld) [Volume fraction] 35.5 % 37-47 [facility] Laboratory - Chemistry and C hemistry - challengeon 05-23-2022 CO2 [Moles/Vol] 25.0 mmol/L 21.0-32.0 [facility] Work Phone: Magnesium [Mass/Vol] 2.5 mg/dL 1.6-2.6 [facility] Work Phone: Urea nitrogen/Creatinine [Mass ratio] 30.6 mg/mg 10- [facility] Work Phone: Laboratory - Hematology and Cell countson 05-23-2022 Erythrocyte distribution width (RBC) [Entitic vol] 51.6 fL 35.1-43.9 [facility] Work Phone: Erythrocyte distribution width (RBC) [Ratio] 14.7 % 11.6-14.6 [facility] Work Phone: MCH (RBC) [Entitic mass] 31.2 pg 27.0-32.0 [facility] Work Phone: MCHC Auto (RBC) [Mass/Vol]Or dered By: Dr. Wilks on 05-23-2022 MCHC (RBC) [Mass/Vol] 32.4 g/dL 32-36 [facility] No Panel Informationon 05-23 Estimated GFR (MDRD) Amer 33 mL/min >60 [facility] Work Phone: Comment on above: GFR Calc Estimated GFR (MDRD) Non-Af Amer 27 mL/min >60 [facility] Work Phone: Comment on above: Non- GFR Calc No Panel InformationOrdered By: Dr. Wilks on 05-23-2022 31.2 pg 27.0-32.0 [facility] 14.7 % 11.6-14.6 [facility] 51.6 fl 35.1-43.9 [facility] 27 mL/min >60 [facility] 33 mL/min >60 [facility] 30.6 RATIO 06-15 [facility] 2.5 mg/dL 1.6-2.6 [facility] 25.0 mmol/L 21.0-32.0 [facility] Platelets bldOrdered By: Dr. Wilks on 05-23-2022 Platelets (Bld) [#/Vol] 383 10*3/uL 150-450 [facility] Serum or plasma calcium chay urement (mass/volume)Ordered By: Dr. Wilks on 05-23-2022 Calcium [Mass/Vol] 10.9 mg/dL 8.5-10.1 [facility] Serum or plasma creatinine m easurement (mass/volume)Ordered By: Dr. Wilks on 05-23-2022 Creatinine [Mass/Vol] 1.93 mg/dL 0.55-1.02 [facility] Comment on above: The validity of the calculated GFR & GFRAA in patients over 70 years has not been determined. Clinical correlation is essential. Serum or plasma urea nitroge n measurement (mass/volume)Ordered By: Dr. Wilks on 05-23-2022 Urea nitrogen [Mass/Vol] 59 mg/dL 7-18 [facility] Serum or plasma uric acid me asurement (mass/volume)Ordered By: Dr. Wilks on 05-23-2022 Urate [Mass/Vol] 8.1 mg/dL 2.6-6.0 [facility] Comment on above: The drugs N-Acetylcy steine and Metamizole may falsely depress this assay. Thin prep Papanicolaou smear with manual screeningOrdered By: Dr. Wilks on 05-23-2022 Thin prep Papanicolaou smear with manual screening 8 5-15 [facility] Absolute lymphocyte counton 05-18-2022 Lymphocytes Auto (Unsp spec) [#/Vol] 1.16 10*3/uL 0.83-4.51 [facility] Work Phone: Basophil percentageon 2021 Basophils/100 WBC (Bld) 0.7 % 0-1 [facility] Work Phone: Chloride [Moles/Vol] 105 mmol/L 98-107 [facility] Work Phone: Eosinophils/100 WBC (Bld) 4.6 % 0-5 [facility] Work Phone: Glucose [Mass/Vol] 111 mg/dL 74-106 [facility] Work Phone: Comment on above: Fasting Glucose resu lt from 100 to 125 mg/dL suggests IMPAIRED HOMEOSTASIS per A.D.A. criteria. Neutrophils (Bld) [#/Vol] 7.0 10*3/uL 2.0-7.7 [facility] Work Phone: Neutrophils/100 WBC (Bld) 72.3 % 47-70 [facility] Work Phone: Potassium [Moles/Vol] 3.8 mmol/L 3.5-5.1 [facility] Work Phone: Sodium [Moles/Vol] 138 mmol/L 136-145 [facility] Work Phone: WBC (Bld) [#/Vol] 9.6 10*3/uL 4.4-11.0 [facility] Work Phone: Blood erythrocytes count (nu mber/volume)on 05-18-2022 RBC (Bld) [#/Vol] 3.55 10*6/uL 4.2-5.4 [facility] Work Phone: Blood hemoglobin measurement (mass/volume)on 05-18-2022 Hemoglobin (Bld) [Mass/Vol] 10.8 g/dL 12.0-15.0 [facility] Work Phone: Blood lymphocytes/100 leukoc yteson 05-18-2022 Lymphocytes/100 WBC (Bld) 12.0 % 19-41 [facility] Work Phone: Blood monocytes/100 leukocyt eson 05-18-2022 Monocytes/100 WBC (Bld) 10.0 % 0-10 [facility] Work Phone: Blood platelet mean volumeon 05-18-2022 Platelet mean volume (Bld) [Entitic vol] 10.6 fL 6.2-12.0 [facility] Work Phone: Determination of erythrocyte mean corpuscular volume (MCV)on 05-18-2022 MCV (RBC) [Entitic vol] 96.3 fL 81-99 [facility] Work Phone: Hematocrit Auto (Bld) [Volum e fraction]on 05-18-2022 Hematocrit (Bld) [Volume fraction] 34.2 % 37-47 [facility] Work Phone: Laboratory - Chemistry and C hemistry - challengeon 05-18-2022 CO2 [Moles/Vol] 25.0 mmol/L 21.0-32.0 [facility] Work Phone: Cobalamin (Vitamin B12) [Mass/Vol] 909 pg/mL 211-911 [facility] Work Phone: Magnesium [Mass/Vol] 2.3 mg/dL 1.6-2.6 [facility] Work Phone: Urea nitrogen/Creatinine [Mass ratio] 30.1 mg/mg 10-20 [facility] Work Phone: Laboratory - Hematology and Cell countson 05-18-2022 Erythrocyte distribution width (RBC) [Entitic vol] 52.5 fL 35.1-43.9 [facility] Work Phone: Erythrocyte distribution width (RBC) [Ratio] 14.7 % 11.6-14.6 [facility] Work Phone: Immature granulocytes/100 WBC (Bld) 0.400 % 0.0-0.9 [facility] Work Phone: Comment on above: IG% - Immature Granu locytes (promyelocytes, myelocytes and metamyelocytes) > 1% indicates that a LEFT SHIFT is Present. MCH (RBC) [Entitic mass] 30.4 pg 27.0-32.0 [facility] Work Phone: Nucleated RBC/100 WBC (Bld) [Ratio] 0 % 0-5 [facility] Work Phone: MCHC Auto (RBC) [Mass/Vol]on 05-18-2022 MCHC (RBC) [Mass/Vol] 31.6 g/dL 32-36 [facility] Work Phone: No Panel Informationon 05-18 Estimated GFR (MDRD) Amer 40 mL/min >60 [facility] Work Phone: Comment on above: GFR Calc Estimated GFR (MDRD) Non-Af Amer 33 mL/min >60 [facility] Work Phone: Comment on above: Non- GFR Calc Vitamin D 25-Hydroxy 85.9 ng/mL [facility] Work Phone: Comment on above: Vitamin D 25(OH) Sta tus Range Deficiency <20 ng/mL (50nmol/L) Insufficiency 20 - 30 ng/mL (50 - 75 nmol/L) Sufficiency 30 - 100 ng/mL (75 - 250 nmol/L) Toxicity >100 ng/mL (>250 nmol/L) Platelets bldon 05-18-2022 Platelets (Bld) [#/Vol] 277 10*3/uL 150-450 [facility] Work Phone: Serum or plasma calcium chay urement (mass/volume)on 05-18-2022 Calcium [Mass/Vol] 10.2 mg/dL 8.5-10.1 [facility] Work Phone: Serum or plasma creatinine m easurement (mass/volume)on 05-18-2022 Creatinine [Mass/Vol] 1.63 mg/dL 0.55-1.02 [facility] Work Phone: Comment on above: The validity of the calculated GFR & GFRAA in patients over 70 years has not been determined. Clinical correlation is essential. Serum or plasma urea nitroge n measurement (mass/volume)on 05-18-2022 Urea nitrogen [Mass/Vol] 49 mg/dL 7-18 [facility] Work Phone: Thin prep Papanicolaou smear with manual screeningon 05-18-2022 Thin prep Papanicolaou smear with manual screening 8 5-15 [facility] Work Phone: Absolute lymphocyte counton 05-16-2022 Lymphocytes Auto (Unsp spec) [#/Vol] 1.09 10*3/uL 0.83-4.51 [facility] Work Phone: Basophil percentageon 2021 Basophils/100 WBC (Bld) 0.6 % 0-1 [facility] Work Phone: Chloride [Moles/Vol] 103 mmol/L 98-107 [facility] Work Phone: Eosinophils/100 WBC (Bld) 3.2 % 0-5 [facility] Work Phone: Glucose [Mass/Vol] 100 mg/dL 74-106 [facility] Work Phone: Comment on above: Fasting Glucose resu lt from 100 to 125 mg/dL suggests IMPAIRED HOMEOSTASIS per A.D.A. criteria. Neutrophils (Bld) [#/Vol] 7.2 10*3/uL 2.0-7.7 [facility] Work Phone: Neutrophils/100 WBC (Bld) 75.3 % 47-70 [facility] Work Phone: Potassium [Moles/Vol] 3.6 mmol/L 3.5-5.1 [facility] Work Phone: Sodium [Moles/Vol] 138 mmol/L 136-145 [facility] Work Phone: WBC (Bld) [#/Vol] 9.6 10*3/uL 4.4-11.0 [facility] Work Phone: Blood erythrocytes count (nu mber/volume)on 05-16-2022 RBC (Bld) [#/Vol] 3.52 10*6/uL 4.2-5.4 [facility] Work Phone: Blood hemoglobin measurement (mass/volume)on 05-16-2022 Hemoglobin (Bld) [Mass/Vol] 11.3 g/dL 12.0-15.0 [facility] Work Phone: Blood lymphocytes/100 leukoc yteson 05-16-2022 Lymphocytes/100 WBC (Bld) 11.3 % 19-41 [facility] Work Phone: Blood monocytes/100 leukocyt eson 05-16-2022 Monocytes/100 WBC (Bld) 9.1 % 0-10 [facility] Work Phone: Blood platelet mean volumeon 05-16-2022 Platelet mean volume (Bld) [Entitic vol] 10.5 fL 6.2-12.0 [facility] Work Phone: Determination of erythrocyte mean corpuscular volume (MCV)on 05-16-2022 MCV (RBC) [Entitic vol] 96.9 fL 81-99 [facility] Work Phone: Hematocrit Auto (Bld) [Volum e fraction]on 05-16-2022 Hematocrit (Bld) [Volume fraction] 34.1 % 37-47 [facility] Work Phone: Laboratory - Chemistry and C hemistry - challengeon 05-16-2022 CO2 [Moles/Vol] 25.0 mmol/L 21.0-32.0 [facility] Work Phone: Cobalamin (Vitamin B12) [Mass/Vol] 615 pg/mL 211-911 [facility] Work Phone: Magnesium [Mass/Vol] 2.3 mg/dL 1.6-2.6 [facility] Work Phone: Urea nitrogen/Creatinine [Mass ratio] 18.0 mg/mg 10-20 [facility] Work Phone: Laboratory - Hematology and Cell countson 05-16-2022 Erythrocyte distribution width (RBC) [Entitic vol] 52.1 fL 35.1-43.9 [facility] Work Phone: Erythrocyte distribution width (RBC) [Ratio] 14.6 % 11.6-14.6 [facility] Work Phone: Immature granulocytes/100 WBC (Bld) 0.500 % 0.0-0.9 [facility] Work Phone: Comment on above: IG% - Immature Granu locytes (promyelocytes, myelocytes and metamyelocytes) > 1% indicates that a LEFT SHIFT is Present. MCH (RBC) [Entitic mass] 32.1 pg 27.0-32.0 [facility] Work Phone: Nucleated RBC/100 WBC (Bld) [Ratio] 0 % 0-5 [facility] Work Phone: MCHC Auto (RBC) [Mass/Vol]on 05-16-2022 MCHC (RBC) [Mass/Vol] 33.1 g/dL 32-36 [facility] Work Phone: Comment on above: Delta: 31.0 on 05/13 No Panel Informationon 05-16 Estimated GFR (MDRD) Amer 80 mL/min >60 [facility] Work Phone: Comment on above: GFR Calc Estimated GFR (MDRD) Non-Af Amer 66 mL/min >60 [facility] Work Phone: Comment on above: Non- GFR Calc Vitamin D 25-Hydroxy 82.5 ng/mL [facility] Work Phone: Comment on above: Vitamin D 25(OH) Sta tus Range Deficiency <20 ng/mL (50nmol/L) Insufficiency 20 - 30 ng/mL (50 - 75 nmol/L) Sufficiency 30 - 100 ng/mL (75 - 250 nmol/L) Toxicity >100 ng/mL (>250 nmol/L) Platelets bldon 05-16-2022 Platelets (Bld) [#/Vol] 223 10*3/uL 150-450 [facility] Work Phone: Serum or plasma calcium chay urement (mass/volume)on 05-16-2022 Calcium [Mass/Vol] 10.4 mg/dL 8.5-10.1 [facility] Work Phone: Serum or plasma creatinine m easurement (mass/volume)on 05-16-2022 Creatinine [Mass/Vol] 0.89 mg/dL 0.55-1.02 [facility] Work Phone: Comment on above: The validity of the calculated GFR & GFRAA in patients over 70 years has not been determined. Clinical correlation is essential. Serum or plasma urea nitroge n measurement (mass/volume)on 05-16-2022 Urea nitrogen [Mass/Vol] 16 mg/dL 7-18 [facility] Work Phone: Thin prep Papanicolaou smear with manual screeningon 05-16-2022 Thin prep Papanicolaou smear with manual screening 10 5-15 [facility] Work Phone: No Panel Informationon 05-15 Vitamin D 25-Hydroxy 80.9 ng/mL [facility] Work Phone: Comment on above: Vitamin D 25(OH) Sta tus Range Deficiency <20 ng/mL (50nmol/L) Insufficiency 20 - 30 ng/mL (50 - 75 nmol/L) Sufficiency 30 - 100 ng/mL (75 - 250 nmol/L) Toxicity >100 ng/mL (>250 nmol/L) Basophil percentageon 2021 Basophil percentage 0 SEEN /hpf 0-5 [facility] Work Phone: Bilirubin Test strip Ql (U)o n 05-14-2022 Bilirubin Ql (U) Negative Negative [facility] Work Phone: Ketones Test strip Ql (U)on 05-14-2022 Ketones Ql (U) Negative Negative [facility] Work Phone: Mucus LM Ql (Urine sed)on Mucus Ql (Urine sed) 0 SEEN /hpf [facility] Work Phone: Nitrite Test strip Ql (U)on 05-14-2022 Nitrite Ql (U) Negative Negative [facility] Work Phone: Protein Test strip Ql (U)on 05-14-2022 Protein Ql (U) Negative Negative [facility] Work Phone: Squamous epithelial cells de tection in urine sediment by light microscopyon 05-14-2022 Epithelial cells.squamous LM Ql (Urine sed) 0 SEEN /hpf 5-10 [facility] Work Phone: Urine blood detectionon 04-27 RBC Ql (U) 10 /ul Negative [facility] Work Phone: RBC Ql (U) 0 SEEN /hpf 0-5 [facility] Work Phone: Urine clarityon 05-14-2022 Clarity (U) Clear Clear [facility] Work Phone: Urine color determinationon 05-14-2022 Color (U) Yellow Yellow [facility] Work Phone: Urine glucose detectionon Glucose Ql (U) Normal mg/dl Normal [facility] Work Phone: Urine leukocyte esterase det ection by dipstickon 05-14-2022 Leukocyte esterase Test strip Ql (U) Negative Negative [facility] Work Phone: Urine pHon 05-14-2022 pH (U) 6.0 [pH] 5.0 - 8.0 [facility] Work Phone: Urine sediment bacteria coun t by microscopy (number/high power field)on 05-14-2022 Bacteria LM.HPF (Urine sed) [#/Area] 0 /[HPF] None Seen [facility] Work Phone: Urine specific gravity measu rementon 05-14-2022 Specific gravity (U) [Rel density] 1.010 1.002-1.030 [facility] Work Phone: Urobilinogen Auto test strip Ql (U)on 05-14-2022 Urobilinogen Ql (U) Normal mg/dl Normal [facility] Work Phone: Absolute lymphocyte counton 05-13-2022 Lymphocytes Auto (Unsp spec) [#/Vol] 1.07 10*3/uL 0.83-4.51 [facility] Work Phone: Basophil percentageon 2021 Basophils/100 WBC (Bld) 0.6 % 0-1 [facility] Work Phone: Chloride [Moles/Vol] 106 mmol/L 98-107 [facility] Work Phone: Eosinophils/100 WBC (Bld) 1.5 % 0-5 [facility] Work Phone: Glucose [Mass/Vol] 100 mg/dL 74-106 [facility] Work Phone: Comment on above: Fasting Glucose resu lt from 100 to 125 mg/dL suggests IMPAIRED HOMEOSTASIS per A.D.A. criteria. Neutrophils (Bld) [#/Vol] 8.2 10*3/uL 2.0-7.7 [facility] Work Phone: Neutrophils/100 WBC (Bld) 78.8 % 47-70 [facility] Work Phone: Potassium [Moles/Vol] 3.8 mmol/L 3.5-5.1 [facility] Work Phone: Sodium [Moles/Vol] 142 mmol/L 136-145 [facility] Work Phone: WBC (Bld) [#/Vol] 10.4 10*3/uL 4.4-11.0 [facility] Work Phone: Blood erythrocytes count (nu mber/volume)on 05-13-2022 RBC (Bld) [#/Vol] 3.70 10*6/uL 4.2-5.4 [facility] Work Phone: Blood hemoglobin measurement (mass/volume)on 05-13-2022 Hemoglobin (Bld) [Mass/Vol] 11.3 g/dL 12.0-15.0 [facility] Work Phone: Blood lymphocytes/100 leukoc yteson 05-13-2022 Lymphocytes/100 WBC (Bld) 10.3 % 19-41 [facility] Work Phone: Blood monocytes/100 leukocyt eson 05-13-2022 Monocytes/100 WBC (Bld) 8.2 % 0-10 [facility] Work Phone: Blood platelet mean volumeon 05-13-2022 Platelet mean volume (Bld) [Entitic vol] 10.0 fL 6.2-12.0 [facility] Work Phone: Determination of erythrocyte mean corpuscular volume (MCV)on 05-13-2022 MCV (RBC) [Entitic vol] 98.6 fL 81-99 [facility] Work Phone: Hematocrit Auto (Bld) [Volum e fraction]on 05-13-2022 Hematocrit (Bld) [Volume fraction] 36.5 % 37-47 [facility] Work Phone: Laboratory - Chemistry and C hemistry - challengeon 05-13-2022 CO2 [Moles/Vol] 28.0 mmol/L 21.0-32.0 [facility] Work Phone: Urea nitrogen/Creatinine [Mass ratio] 19.4 mg/mg 10-20 [facility] Work Phone: Laboratory - Hematology and Cell countson 05-13-2022 Erythrocyte distribution width (RBC) [Entitic vol] 54.5 fL 35.1-43.9 [facility] Work Phone: Erythrocyte distribution width (RBC) [Ratio] 15.1 % 11.6-14.6 [facility] Work Phone: Immature granulocytes/100 WBC (Bld) 0.600 % 0.0-0.9 [facility] Work Phone: Comment on above: IG% - Immature Granu locytes (promyelocytes, myelocytes and metamyelocytes) > 1% indicates that a LEFT SHIFT is Present. MCH (RBC) [Entitic mass] 30.5 pg 27.0-32.0 [facility] Work Phone: Nucleated RBC/100 WBC (Bld) [Ratio] 0 % 0-5 [facility] Work Phone: MCHC Auto (RBC) [Mass/Vol]on 05-13-2022 MCHC (RBC) [Mass/Vol] 31.0 g/dL 32-36 [facility] Work Phone: No Panel Informationon 05-13 Estimated Creatinine Clearance Calc 45.36 ml/min [facility] Work Phone: Estimated GFR (MDRD) Amer 54 mL/min >60 [facility] Work Phone: Comment on above: GFR Calc Estimated GFR (MDRD) Non-Af Amer 45 mL/min >60 [facility] Work Phone: Comment on above: Non- GFR Calc Platelets bldon 05-13-2022 Platelets (Bld) [#/Vol] 214 10*3/uL 150-450 [facility] Work Phone: Serum or plasma calcium chay urement (mass/volume)on 05-13-2022 Calcium [Mass/Vol] 10.8 mg/dL 8.5-10.1 [facility] Work Phone: Serum or plasma creatinine m easurement (mass/volume)on 05-13-2022 Creatinine [Mass/Vol] 1.24 mg/dL 0.55-1.02 [facility] Work Phone: Comment on above: The validity of the calculated GFR & GFRAA in patients over 70 years has not been determined. Clinical correlation is essential. Serum or plasma urea nitroge n measurement (mass/volume)on 05-13-2022 Urea nitrogen [Mass/Vol] 24 mg/dL 7-18 [facility] Work Phone: Thin prep Papanicolaou smear with manual screeningon 05-13-2022 Thin prep Papanicolaou smear with manual screening 8 5-15 [facility] Work Phone: Basophil percentageon 2021 Chloride [Moles/Vol] 107 mmol/L 98-107 [facility] Work Phone: Cholesterol [Mass/Vol] 145 mg/dL <200 [facility] Work Phone: Comment on above: <200 mg/dL Desirable 200-240 mg/dL Borderline >240 mg/dL High Risk Glucose [Mass/Vol] 145 mg/dL 74-106 [facility] Work Phone: Comment on above: Fasting Glucose resu lt greater than or equal to 126 mg/dL suggests DIABETES MELLITUS per A.D.A. criteria. Potassium [Moles/Vol] 3.6 mmol/L 3.5-5.1 [facility] Work Phone: Sodium [Moles/Vol] 140 mmol/L 136-145 [facility] Work Phone: Triglyceride [Mass/Vol] 81 mg/dL <199 [facility] Work Phone: Comment on above: The drugs N-Acetylcy steine and Metamizole may falsely depress this assay.Serum Triglycerides Reference Interval Normal <150 mg/dL Borderline high 150 - 199 mg/dL High 200 - 499 mg/dL Very High > or = 500 mg/dL WBC (Bld) [#/Vol] 6.2 10*3/uL 4.4-11.0 [facility] Work Phone: Blood erythrocytes count (nu mber/volume)on 04-03-2022 RBC (Bld) [#/Vol] 3.81 10*6/uL 4.2-5.4 [facility] Work Phone: Blood hemoglobin measurement (mass/volume)on 04-03-2022 Hemoglobin (Bld) [Mass/Vol] 11.9 g/dL 12.0-15.0 [facility] Work Phone: Blood platelet mean volumeon 04-03-2022 Platelet mean volume (Bld) [Entitic vol] 9.9 fL 6.2-12.0 [facility] Work Phone: Determination of erythrocyte mean corpuscular volume (MCV)on 04-03-2022 MCV (RBC) [Entitic vol] 96.3 fL 81-99 [facility] Work Phone: Hematocrit Auto (Bld) [Volum e fraction]on 04-03-2022 Hematocrit (Bld) [Volume fraction] 36.7 % 37-47 [facility] Work Phone: Laboratory - Chemistry and C hemistry - challengeon 04-03-2022 CO2 [Moles/Vol] 29.0 mmol/L 21.0-32.0 [facility] Work Phone: Magnesium [Mass/Vol] 2.5 mg/dL 1.6-2.6 [facility] Work Phone: Urea nitrogen/Creatinine [Mass ratio] 22.8 mg/mg 10-20 [facility] Work Phone: Laboratory - Hematology and Cell countson 04-03-2022 Erythrocyte distribution width (RBC) [Entitic vol] 53.6 fL 35.1-43.9 [facility] Work Phone: Erythrocyte distribution width (RBC) [Ratio] 15.2 % 11.6-14.6 [facility] Work Phone: MCH (RBC) [Entitic mass] 31.2 pg 27.0-32.0 [facility] Work Phone: MCHC Auto (RBC) [Mass/Vol]on 04-03-2022 MCHC (RBC) [Mass/Vol] 32.4 g/dL 32-36 [facility] Work Phone: No Panel Informationon 04-03 Estimated GFR (MDRD) Amer 60 mL/min >60 [facility] Work Phone: Comment on above: GFR Calc Estimated GFR (MDRD) Non-Af Amer 49 mL/min >60 [facility] Work Phone: Comment on above: Non- GFR Calc Platelets bldon 04-03-2022 Platelets (Bld) [#/Vol] 268 10*3/uL 150-450 [facility] Work Phone: Serum or plasma calcium chay urement (mass/volume)on 04-03-2022 Calcium [Mass/Vol] 10.3 mg/dL 8.5-10.1 [facility] Work Phone: Serum or plasma cholesterol in HDL measurement (mass/volume)on 04-03-2022 Cholesterol in HDL [Mass/Vol] 67 mg/dL >40 [facility] Work Phone: Comment on above: The drugs N-Acetylcy steine and Metamizole may falsely depress this assay. Reference Range HDL <40 mg/dL Low HDL Cholesterol HDL >or= 60 mg/dL High HDL Cholesterol Serum or plasma cholesterol in VLDL measurement (mass/volume)on 04-03-2022 Cholesterol in VLDL [Mass/Vol] 16 mg/dL 5-40 [facility] Work Phone: Serum or plasma creatinine m easurement (mass/volume)on 04-03-2022 Creatinine [Mass/Vol] 1.14 mg/dL 0.55-1.02 [facility] Work Phone: Comment on above: The validity of the calculated GFR & GFRAA in patients over 70 years has not been determined. Clinical correlation is essential. Serum or plasma low density lipoprotein (LDL) cholesterol measurement (mass/volume)on 04-03-2022 Cholesterol in LDL [Mass/Vol] 62 mg/dL 0-130 [facility] Work Phone: Serum or plasma urea nitroge n measurement (mass/volume)on 04-03-2022 Urea nitrogen [Mass/Vol] 26 mg/dL 7-18 [facility] Work Phone: Thin prep Papanicolaou smear with manual screeningon 04-03-2022 Thin prep Papanicolaou smear with manual screening 4 5-15 [facility] Work Phone: Absolute lymphocyte counton 02-06-2022 Lymphocytes Auto (Unsp spec) [#/Vol] 1.14 10*3/uL 0.83-4.51 [facility] Work Phone: Basophil percentageon 2021 Basophils/100 WBC (Bld) 0.7 % 0-1 [facility] Work Phone: Eosinophils/100 WBC (Bld) 5.6 % 0-5 [facility] Work Phone: Neutrophils (Bld) [#/Vol] 4.6 10*3/uL 2.0-7.7 [facility] Work Phone: Neutrophils/100 WBC (Bld) 67.5 % 47-70 [facility] Work Phone: WBC (Bld) [#/Vol] 6.8 10*3/uL 4.4-11.0 [facility] Work Phone: Blood erythrocytes count (nu mber/volume)on 02-06-2022 RBC (Bld) [#/Vol] 3.89 10*6/uL 4.2-5.4 [facility] Work Phone: Blood hemoglobin measurement (mass/volume)on 02-06-2022 Hemoglobin (Bld) [Mass/Vol] 12.0 g/dL 12.0-15.0 [facility] Work Phone: Blood lymphocytes/100 leukoc yteson 02-06-2022 Lymphocytes/100 WBC (Bld) 16.7 % 19-41 [facility] Work Phone: Blood monocytes/100 leukocyt eson 02-06-2022 Monocytes/100 WBC (Bld) 8.9 % 0-10 [facility] Work Phone: Blood platelet mean volumeon 02-06-2022 Platelet mean volume (Bld) [Entitic vol] 10.7 fL 6.2-12.0 [facility] Work Phone: Determination of erythrocyte mean corpuscular volume (MCV)on 02-06-2022 MCV (RBC) [Entitic vol] 98.2 fL 81-99 [facility] Work Phone: Hematocrit Auto (Bld) [Volum e fraction]on 02-06-2022 Hematocrit (Bld) [Volume fraction] 38.2 % 37-47 [facility] Work Phone: Laboratory - Hematology and Cell countson 02-06-2022 Erythrocyte distribution width (RBC) [Entitic vol] 53.9 fL 35.1-43.9 [facility] Work Phone: Erythrocyte distribution width (RBC) [Ratio] 15.0 % 11.6-14.6 [facility] Work Phone: Immature granulocytes/100 WBC (Bld) 0.600 % 0.0-0.9 [facility] Work Phone: Comment on above: IG% - Immature Granu locytes (promyelocytes, myelocytes and metamyelocytes) > 1% indicates that a LEFT SHIFT is Present. MCH (RBC) [Entitic mass] 30.8 pg 27.0-32.0 [facility] Work Phone: Nucleated RBC/100 WBC (Bld) [Ratio] 0 % 0-5 [facility] Work Phone: MCHC Auto (RBC) [Mass/Vol]on 02-06-2022 MCHC (RBC) [Mass/Vol] 31.4 g/dL 32-36 [facility] Work Phone: Platelets bldon 02-06-2022 Platelets (Bld) [#/Vol] 220 10*3/uL 150-450 [facility] Work Phone: Basophil percentageon 2021 Chloride [Moles/Vol] 107 mmol/L 98-107 [facility] Work Phone: Cholesterol [Mass/Vol] 178 mg/dL <200 [facility] Work Phone: Comment on above: <200 mg/dL Desirable 200-240 mg/dL Borderline >240 mg/dL High Risk Glucose [Mass/Vol] 106 mg/dL 74-106 [facility] Work Phone: Comment on above: Fasting Glucose resu lt from 100 to 125 mg/dL suggests IMPAIRED HOMEOSTASIS per A.D.A. criteria. Potassium [Moles/Vol] 3.9 mmol/L 3.5-5.1 [facility] Work Phone: Sodium [Moles/Vol] 141 mmol/L 136-145 [facility] Work Phone: Triglyceride [Mass/Vol] 93 mg/dL <199 [facility] Work Phone: Comment on above: The drugs N-Acetylcy steine and Metamizole may falsely depress this assay.Serum Triglycerides Reference Interval Normal <150 mg/dL Borderline high 150 - 199 mg/dL High 200 - 499 mg/dL Very High > or = 500 mg/dL WBC (Bld) [#/Vol] 7.9 10*3/uL 4.4-11.0 [facility] Work Phone: Blood erythrocytes count (nu mber/volume)on 01-02-2022 RBC (Bld) [#/Vol] 4.32 10*6/uL 4.2-5.4 [facility] Work Phone: Blood hemoglobin measurement (mass/volume)on 01-02-2022 Hemoglobin (Bld) [Mass/Vol] 13.3 g/dL 12.0-15.0 [facility] Work Phone: Blood platelet mean volumeon 01-02-2022 Platelet mean volume (Bld) [Entitic vol] 10.7 fL 6.2-12.0 [facility] Work Phone: Determination of erythrocyte mean corpuscular volume (MCV)on 01-02-2022 MCV (RBC) [Entitic vol] 96.3 fL 81-99 [facility] Work Phone: Hematocrit Auto (Bld) [Volum e fraction]on 01-02-2022 Hematocrit (Bld) [Volume fraction] 41.6 % 37-47 [facility] Work Phone: Laboratory - Chemistry and C hemistry - challengeon 01-02-2022 CO2 [Moles/Vol] 26.0 mmol/L 21.0-32.0 [facility] Work Phone: Magnesium [Mass/Vol] 2.4 mg/dL 1.6-2.6 [facility] Work Phone: Urea nitrogen/Creatinine [Mass ratio] 24.5 mg/mg 10-20 [facility] Work Phone: Laboratory - Hematology and Cell countson 01-02-2022 Erythrocyte distribution width (RBC) [Entitic vol] 52.5 fL 35.1-43.9 [facility] Work Phone: Erythrocyte distribution width (RBC) [Ratio] 14.7 % 11.6-14.6 [facility] Work Phone: MCH (RBC) [Entitic mass] 30.8 pg 27.0-32.0 [facility] Work Phone: MCHC Auto (RBC) [Mass/Vol]on 01-02-2022 MCHC (RBC) [Mass/Vol] 32.0 g/dL 32-36 [facility] Work Phone: No Panel Informationon 01-02 Estimated GFR (MDRD) Amer 48 mL/min >60 [facility] Work Phone: Comment on above: GFR Calc Estimated GFR (MDRD) Non-Af Amer 39 mL/min >60 [facility] Work Phone: Comment on above: Non- GFR Calc Platelets bldon 01-02-2022 Platelets (Bld) [#/Vol] 249 10*3/uL 150-450 [facility] Work Phone: Serum or plasma calcium chay urement (mass/volume)on 01-02-2022 Calcium [Mass/Vol] 10.2 mg/dL 8.5-10.1 [facility] Work Phone: Serum or plasma cholesterol in HDL measurement (mass/volume)on 01-02-2022 Cholesterol in HDL [Mass/Vol] 63 mg/dL >40 [facility] Work Phone: Comment on above: The drugs N-Acetylcy steine and Metamizole may falsely depress this assay. Reference Range HDL <40 mg/dL Low HDL Cholesterol HDL >or= 60 mg/dL High HDL Cholesterol Serum or plasma cholesterol in VLDL measurement (mass/volume)on 01-02-2022 Cholesterol in VLDL [Mass/Vol] 19 mg/dL 5-40 [facility] Work Phone: Serum or plasma creatinine m easurement (mass/volume)on 01-02-2022 Creatinine [Mass/Vol] 1.39 mg/dL 0.55-1.02 [facility] Work Phone: Comment on above: The validity of the calculated GFR & GFRAA in patients over 70 years has not been determined. Clinical correlation is essential. Serum or plasma low density lipoprotein (LDL) cholesterol measurement (mass/volume)on 01-02-2022 Cholesterol in LDL [Mass/Vol] 96 mg/dL 0-130 [facility] Work Phone: Serum or plasma urea nitroge n measurement (mass/volume)on 01-02-2022 Urea nitrogen [Mass/Vol] 34 mg/dL 7-18 [facility] Work Phone: Thin prep Papanicolaou smear with manual screeningon 01-02-2022 Thin prep Papanicolaou smear with manual screening 8 5-15 [facility] Work Phone: Absolute lymphocyte counton 09-26-2021 Lymphocytes Auto (Unsp spec) [#/Vol] 1.40 10*3/uL 0.83-4.51 [facility] Work Phone: Basophil percentageon 2021 Basophils/100 WBC (Bld) 1.2 % 0-1 [facility] Work Phone: Bilirubin [Mass/Vol] 0.30 mg/dL 0.20-1.00 [facility] Work Phone: Comment on above: For patients on eltr ombopag therapy, use of Dimension [place] TBIL is not recommended. Chloride [Moles/Vol] 106 mmol/L 98-107 [facility] Work Phone: Eosinophils/100 WBC (Bld) 6.7 % 0-5 [facility] Work Phone: Glucose [Mass/Vol] 116 mg/dL 74-106 [facility] Work Phone: Comment on above: Fasting Glucose resu lt from 100 to 125 mg/dL suggests IMPAIRED HOMEOSTASIS per A.D.A. criteria. Neutrophils (Bld) [#/Vol] 3.3 10*3/uL 2.0-7.7 [facility] Work Phone: Neutrophils/100 WBC (Bld) 57.2 % 47-70 [facility] Work Phone: Potassium [Moles/Vol] 3.6 mmol/L 3.5-5.1 [facility] Work Phone: Protein [Mass/Vol] 7.1 g/dL 6.4-8.2 [facility] Work Phone: Sodium [Moles/Vol] 139 mmol/L 136-145 [facility] Work Phone: WBC (Bld) [#/Vol] 5.8 10*3/uL 4.4-11.0 [facility] Work Phone: Blood erythrocytes count (nu mber/volume)on 09-26-2021 RBC (Bld) [#/Vol] 4.07 10*6/uL 4.2-5.4 [facility] Work Phone: Blood hemoglobin measurement (mass/volume)on 09-26-2021 Hemoglobin (Bld) [Mass/Vol] 12.3 g/dL 12.0-15.0 [facility] Work Phone: Blood lymphocytes/100 leukoc yteson 09-26-2021 Lymphocytes/100 WBC (Bld) 24.0 % 19-41 [facility] Work Phone: Blood monocytes/100 leukocyt eson 09-26-2021 Monocytes/100 WBC (Bld) 10.4 % 0-10 [facility] Work Phone: Blood platelet mean volumeon 09-26-2021 Platelet mean volume (Bld) [Entitic vol] 10.7 fL 6.2-12.0 [facility] Work Phone: Determination of erythrocyte mean corpuscular volume (MCV)on 09-26-2021 MCV (RBC) [Entitic vol] 97.3 fL 81-99 [facility] Work Phone: Hematocrit Auto (Bld) [Volum e fraction]on 09-26-2021 Hematocrit (Bld) [Volume fraction] 39.6 % 37-47 [facility] Work Phone: Laboratory - Chemistry and C hemistry - challengeon 09-26-2021 ALP [Catalytic activity/Vol] 55 U/L 45-117 [facility] Work Phone: ALT [Catalytic activity/Vol] 17 U/L 13-56 [facility] Work Phone: CO2 [Moles/Vol] 27.0 mmol/L 21.0-32.0 [facility] Work Phone: Globulin (S) [Mass/Vol] 3.8 g/dL 2.2-4.2 [facility] Work Phone: Magnesium [Mass/Vol] 2.5 mg/dL 1.6-2.6 [facility] Work Phone: Urea nitrogen/Creatinine [Mass ratio] 29.7 mg/mg 10-20 [facility] Work Phone: Laboratory - Hematology and Cell countson 09-26-2021 Erythrocyte distribution width (RBC) [Entitic vol] 53.7 fL 35.1-43.9 [facility] Work Phone: Erythrocyte distribution width (RBC) [Ratio] 15.0 % 11.6-14.6 [facility] Work Phone: Immature granulocytes/100 WBC (Bld) 0.500 % 0.0-0.9 [facility] Work Phone: Comment on above: IG% - Immature Granu locytes (promyelocytes, myelocytes and metamyelocytes) > 1% indicates that a LEFT SHIFT is Present. MCH (RBC) [Entitic mass] 30.2 pg 27.0-32.0 [facility] Work Phone: Nucleated RBC/100 WBC (Bld) [Ratio] 0 % 0-5 [facility] Work Phone: MCHC Auto (RBC) [Mass/Vol]on 09-26-2021 MCHC (RBC) [Mass/Vol] 31.1 g/dL 32-36 [facility] Work Phone: No Panel Informationon 09-26 Estimated GFR (MDRD) Amer 62 mL/min >60 [facility] Work Phone: Comment on above: GFR Calc Estimated GFR (MDRD) Non-Af Amer 51 mL/min >60 [facility] Work Phone: Comment on above: Non- GFR Calc Platelets bldon 09-26-2021 Platelets (Bld) [#/Vol] 253 10*3/uL 150-450 [facility] Work Phone: Serum or plasma albumin chay urement (mass/volume)on 09-26-2021 Albumin [Mass/Vol] 3.3 g/dL 3.2-5.0 [facility] Work Phone: Serum or plasma albumin/glob ulin mass ratioon 09-26-2021 Albumin/Globulin [Mass ratio] 0.9 {ratio} 0.9-2.4 [facility] Work Phone: Serum or plasma calcium chay urement (mass/volume)on 09-26-2021 Calcium [Mass/Vol] 10.3 mg/dL 8.5-10.1 [facility] Work Phone: Serum or plasma creatinine m easurement (mass/volume)on 09-26-2021 Creatinine [Mass/Vol] 1.11 mg/dL 0.55-1.02 [facility] Work Phone: Comment on above: The validity of the calculated GFR & GFRAA in patients over 70 years has not been determined. Clinical correlation is essential. Serum or plasma urea nitroge n measurement (mass/volume)on 09-26-2021 Urea nitrogen [Mass/Vol] 33 mg/dL 7-18 [facility] Work Phone: Thin prep Papanicolaou smear with manual screeningon 09-26-2021 Thin prep Papanicolaou smear with manual screening 14 U/L 15-37 [facility] Work Phone: Thin prep Papanicolaou smear with manual screening 6 5-15 [facility] Work Phone: OT Bone Density DEXA Axial S trudy 12-05-2018 OT Bone Density DEXA Axial Skeleton Patient Name: KAMILAH MCKEON Bone Density Exam Date/Time 12/05/2018 09:14:55 EDT Exam OT Bone Density DEXA Axial Skeleton Ordering Physician MD CARY, LUAN HARRIS Accession Number [id number] CPT4 Codes 76197 () Reason For Exam age-related osteoporosis without current pathological fracture Report DXA BONE DENSITOMETRY: CLINICAL INDICATION: Asymptomatic post-menopausal status. Screening for osteoporosis. COMPARISON: 11/30/2016 TECHNIQUE: Quantitative bone mineral densitometry of the hip and lumbar spine was performed with a dual energy x-ray observed absorptiometry device - Pirate [employer] at some institutions, HOLOGIC at others. [facility] [...] recommendations for prevention of bone loss include: 1075-3286 mg calcium intake per day for adults [...] [place] of Knowledge Evidence - based Summaries. [facility] 2017. Report Dictated on Workstation: [id number] Final Dictating Physician: MD SOLOMON JEFFREY Signed Date and Time: 12/05/2018 9:53 am Signed by: MD SOLOMON JEFFREY Transcribed Date and Time: 12/05/2018 9:54 Normal [facility] MG Breast Tomosynthesis Scr Blon 06-10-2018 MG Breast Tomosynthesis Scr Bl Patient Name: KAMILAH MCKEON Mammography Exam Date/Time 06/10/2018 11:56:45 EDT Exam MG Breast Tomosynthesis BI Scr Ordering Physician MD CARY, LUAN HARRIS Accession Number [id number] CPT4 Codes 10747 (MG Breast Tomosynthesis Scr Bl), 69788 (MG MAMMO 2D SCREENING) Reason For Exam screening Report PATIENT HISTORY: Patient is postmenopausal and is nulliparous. Family history of breast cancer at age 53 in mother, colorectal cancer at age 50 or over in paternal grandmother, colorectal cancer at age 50 or over in father. Benign ultrasound-guided core biopsy of the right breast, 2000. Took hormonal contraceptives for 1 year. Took [...] MG breast tomosynthesis bl scr performed at [facility]. May 11, 2016, bilateral screening mammogram performed at [facility]. April 28, 2015, bilateral screening mammogram performed at [facility]. May 20, 2014, bilateral screening mammogram, performed at [facility]. May 19, 2013, bilateral screening mammogram, performed at [facility]. May 16, 2012, bilateral screening mammogram, performed at [facility]. TISSUE DENSITY: There are scattered fibroglandular densities. . FINDINGS: No suspicious masses, architectural distortions or suspiciously clustered microcalcifications are identified. There are no significant changes when compared with prior studies. Markings on images: BB's = Nipples; skin lesions Open mi'kmaq = Palpable Line = Scar 2D digital [...] Physician SAGRARIO TRAORE HOLLY S Accession Number [id number] CPT4 Codes 96371 (US Venous Extremity LT lower) Reason For [...] called to the referring physician by the ct mri technologist following completion of the examination. Report Dictated on Final Dictating Physician: MD FONTAINE HARLAN Signed Date and Time: 02/04/2018 5:31 pm Signed by: MD FONTAINE HARLAN Transcribed Date and Time: 02/04/2018 5:32 Normal [facility] COVID-19 virus antigen assay SARS-CoV-2 (COVID-19) Ag IA.rapid Ql (Resp) [facility] Work Phone: Culture, urine Bacteria identified Cx Nom (U) Mixed Gram Pos & Gram Neg Org [facility] Work Phone: Vital Signs Date Time Vital Sign Value Performing Clinician Faci lity 02-09-2025 12:39-0400 Body temperature 97.5 [degF] Dr. Gerda Wilks MD [facility] 02-09-2025 12:39-0400 Diastolic blood pressure 58 mm[Hg] Dr. Gerda Wilks MD [facility] 02-09-2025 12:39-0400 Heart rate 76 /min Dr. Gerda Wilks MD [facility] 02-09-2025 12:39-0400 Respiratory rate 17 /min Dr. Gerda Wilks MD [facility] 02-09-2025 12:39-0400 SaO2% (BldA) [Mass fraction] 94 % Dr. Gerda Wilks MD [facility] 02-09-2025 12:39-0400 Systolic blood pressure 138 mm[Hg] Dr. Gerda Wilks MD [facility] 02-09-2025 04:12-0400 Inhaled oxygen flow rate 2 L/min Dr. Gerda Wilks MD [facility] 02-08-2025 20:37-0400 Body mass index (BMI) [Ratio] 33.7 kg/m2 Dr. Gerda Wilks MD [facility] 02-08-2025 10:48-0400 Body height 144.[address] Gerda Wilks MD [facility] 02-08-2025 10:48-0400 Body weight 70.[address] Gerda Wilks MD [facility] 02-07-2025 12:30-0400 Diastolic blood pressure 65 mm[Hg] Dr. Gerda Wilks MD [facility] 02-07-2025 12:30-0400 Heart rate 57 /min Dr. Gerda Wilks MD [facility] 02-07-2025 12:30-0400 Respiratory rate 18 /min Dr. Gerda Wilks MD [facility] 02-07-2025 12:30-0400 SaO2% (BldA) [Mass fraction] 96 % Dr. Gerda Wilks MD [facility] 02-07-2025 12:30-0400 Systolic blood pressure 115 mm[Hg] Dr. Gerda Wilks MD [facility] 02-07-2025 11:15-0400 Body temperature 97.9 [degF] Dr. Gerda Wilks MD [facility] 02-07-2025 10:30-0400 Inhaled oxygen flow rate 1 L/min Dr. Gerda Wilks MD [facility] 02-07-2025 09:34-0400 Body height 144.[address] Gerda Wilks MD [facility] 02-07-2025 09:34-0400 Body mass index (BMI) [Ratio] 33.8 kg/m2 Dr. Gerda Wilks MD [facility] 02-07-2025 09:34-0400 Body weight [address] Gerda Wilks MD [facility] 08-23-2022 11:15-0500 Body temperature 97.9 [degF] Dr. Gerda Wilks [facility] 08-23-2022 11:15-0500 Diastolic blood pressure 77 mm[Hg] Dr. Gerda Wilks [facility] 08-23-2022 11:15-0500 Heart rate 77 /[facility] 11:15-0500 Respiratory rate 16 /min Dr. Gerda Wilks [facility] 08-23-2022 11:15-0500 SaO2% (BldA) [Mass fraction] 93 % Dr. Gerda Wilks [facility] 08-23-2022 11:15-0500 Systolic blood pressure 128 mm[Hg] Dr. Gerda Wilks [facility] 08-23-2022 09:22-0500 Body height 144.[address] Gerda Wilks [facility] 08-23-2022 09:22-0500 Body mass index (BMI) [Ratio] 31.6 kg/m2 Dr. Gerda Wilks [facility] 08-23-2022 09:22-0500 Body weight 66.[address] [facility] 07-10-2022 08:35-0500 Body temperature 97.4 [degF[facility] 08:35-0500 Diastolic blood pressure 64 mm[Hg] Dr. Gerda Wilks [facility] 07-10-2022 08:35-0500 Heart rate 88 /[facility] 07-10-2022 08:35-0500 Respiratory rate 16 /[facility]-10-2022 08:35-0500 SaO2% (BldA) [Mass fraction] 95 % [facility]20[facility] 08:35-0500 Systolic blood pressure 116 mm[Hg] Dr. Gerda Wilks [facility] 07-10-2022 03:49-0500 Body weight 68.[address] [facility] 07-09-2022 13:44-0500 Body height 144.[address] [facility] Work Phone: 07-08-2022 14:17-0500 Body mass index (BMI) [Ratio] 34.2 kg/m2 Dr. Gerda Wilks [facility] 07-08-2022 11:00-0500 Body height 144.[address] Gerda Wilks [facility] Work Phone: 07-08-2022 11:00-0500 Body mass index (BMI) [Ratio] 35.4 kg/m2 Dr. Gerda Wilks [facility] Work Phone: 07-08-2022 11:00-0500 Body temperature 97.7 [degF] Dr. Gerda Wilks [facility] Work Phone: 07-08-2022 11:00-0500 Body weight 74.[address] [facility] Work [facility]: 07-08-2022 11:00-0500 Diastolic blood pressure 68 mm[facility]Hg[facility] Work [facility] 07-08-2022 11:00-0500 Heart rate 89 /min [facility] Work Phone: 07-08-2022 11:00-0500 Respiratory rate 16 /min Dr. Gerda Wilks [facility] Work Phone: 07-08-2022 11:00-0500 SaO2% (BldA) [Mass fraction] 94 % [facility] Work [facility]: 07-08-2022 11:00-0500 Systolic blood pressure 93 mm[Hg[facility] Work [facility]: 06-29-2022 05:28-0400 Diastolic blood pressure 46 mm[Hg] Dr. Gerda Wilks [facility] 06-29-2022 05:28-0400 Heart rate 95 /min Dr. Gerda Wilks [facility] 06-29-2022 05:28-0400 Respiratory rate 15 /min Dr. Gerda Wilks [facility] 06-29-2022 05:28-0400 SaO2% (BldA) [Mass fraction] 94 % Dr. Gerda Wilks [facility] 06-29-2022 05:28-0400 Systolic blood pressure 111 mm[Hg] Dr. Gerda Wilks [facility] 06-28-2022 23:44-0400 Body height 144.[address] [facility] [facility] Work Phone: 06-28-2022 23:44-0400 Body mass index (BMI) [Ratio] 35.2 kg/m2 Dr. Gerda Wilks [facility] 06-28-2022 23:44-0400 Body temperature 97.6 [degF] [facility] 06-28-2022 23:44-0400 Body weight 73.[address] [facility] 05-15-2022 13:49-0400 Body temperature 98.1 [degF] [facility] Work Phone: 05-15-2022 13:49-0400 Diastolic blood pressure 57 mm[Hg] [facility] Work Phone: 05-15-2022 13:49-0400 Heart rate 88 /[facility] Work Phone: 05-15-2022 13:49-0400 Respiratory rate 18 /min [facility]. [facility] Work Phone: 05-15-2022 13:49-0400 SaO2% (BldA) [Mass fraction] 98 % [facility] Work Phone: 05-15-2022 13:49-0400 Systolic blood pressure 113 mm[Hg] [facility] Work Phone: 05-13-2022 18:21-0400 Body height 144.[address] Gerda Wilks [facility] Work Phone: 05-13-2022 18:21-0400 Body mass index (BMI) [Ratio] 34 kg/m2 Dr. Gerda Wilks [facility] Work Phone: 05-13-2022 18:21-0400 Body weight 71.[address] [facility] Work Phone: 05-13-2022 16:35-0400 Body temperature 98.5 [degF] Dr. Gerda Wilks [facility] Work Phone: 05-13-2022 16:35-0400 Diastolic blood pressure 88 mm[Hg] Dr. Gerda Wilks [facility] Work Phone: 05-13-2022 16:35-0400 Heart rate 102 /[facility] Work Phone: 05-13-2022 16:35-0400 Respiratory rate 20 /min [facility] Work Phone: 05-13-2022 16:35-0400 SaO2% (BldA) [Mass fraction] 95 % Dr. Lorenz [facility] Work Phone: 05-13-2022 16:35-0400 Systolic blood pressure 117 mm[Hg] [facility] Work Phone: 05-13-2022 14:27-0400 Body height 144.[address] Gerda Wilks [facility] Work Phone: 05-13-2022 14:27-0400 Body mass index (BMI) [Ratio] 34.9 kg/m2 Dr. Gerda Wilks [facility] Work Phone: 05-13-2022 14:27-0400 Body weight 73.[address] Gerda Wilks [facility] Work Phone: 2022 12:38-0400 Respiratory rate 18 /min [facility] Work Phone: 2022 10:20-0400 Body height 144.78 cm [facility] Work Phone: 2022 10:20-0400 Body mass index (BMI) [Ratio] 36.4 kg/m2 [facility] Work Phone: 2022 10:20-0400 Body temperature 97.8 [degF] [facility] Work Phone: 2022 10:20-0400 Body weight 76.4 kg [facility] Work Phone: 2022 10:20-0400 Diastolic blood pressure 73 mm[Hg] [facility] Work Phone: 2022 10:20-0400 Heart rate 83 /min [facility] Work Phone: 2022 10:20-0400 SaO2% (BldA) [Mass fraction] 96 % [facility] Work Phone: 2022 10:20-0400 Systolic blood pressure 132 mm[Hg] [facility] Work Phone: 09-26-2021 18:28-0500 Body height 162.56 cm [facility] Work Phone: 09-26-2021 18:28-0500 Body mass index (BMI) [Ratio] 30 kg/m2 [facility] Work Phone: 09-26-2021 18:28-0500 Body temperature 98.6 [degF] [facility] Work Phone: 09-26-2021 18:28-0500 Body weight 79.4 kg [facility] Work Phone: 09-26-2021 18:28-0500 Diastolic blood pressure 56 mm[Hg] [facility] Work Phone: 09-26-2021 18:28-0500 Heart rate 93 /min [facility] Work Phone: 09-26-2021 18:28-0500 Respiratory rate 20 /min [facility] Work Phone: 09-26-2021 18:28-0500 SaO2% (BldA) [Mass fraction] 95 % [facility] Work Phone: 09-26-2021 18:28-0500 Systolic blood pressure 138 mm[Hg] [facility] Work Phone: Encounters Encounter Date Encounter Type Care Provider Facility Start: 03-12-2025 End: 03-12-[address] Gerda Wilks MD -Outpatient Breast Imaging Start: 03-12-2025 End: 03-12-2025 Patient encounter procedure Gerda Wilks MD -Outpatient Breast Imaging Work Phone: Start: 03-12-2025 End: 03-12-2025 ambulatory Gerdacarlos Wilks Facility:[facility] Start: 02-12-2025 [facility] Start: 02-12-[address] Gerda Wilks MD -[facility] Work Phone: Start: 02-09-2025 Non-patient / Non-visit Dr. Patti Olivier MD -[facility] Work Phone: Start: 02-09-2025 ambulatory Gerda Wilks Facility:[facility] Start: 02-09-2025 Non-patient / Non-visit Dr. Chevy FELICIANO -[facility] Start: 02-08-2025 Non-patient / Non-visit Dr. Patti Olivier MD -[facility] Work Phone: Start: 02-07-2025 Non-patient / Non-visit Dr. Patti Olivier MD [facility] Work Phone: Start: 02-07-2025 End: 02-09-2025 ambulatory Jaciel Olivier Facility:[facility] Start: 02-07-2025 End: 02-09-2025 Evaluation and management of inpatient Dr. Jaciel Olivier MD -Progressive Care Unit Work Phone: Start: 02-07-2025 End: 02-09-[address] Gerda Wilks MD [facility] Work Phone: Start: 01-30-2025 ambulatory Gerda Gudla OLS Facili ty:[facility] Start: 01-30-[address] Gerda Wilks MD -[facility] Work Phone: Start: 08-15-2024 End: 08-15-2024 ambulatory [facility] Facility:[facility] Start: 07-09-2024 End: 07-10-2024 Emergency department patient visit Eduardo Gilmore Facility:[facility] Start: 06-16-2024 End: 06-16-2024 ambulatory [facility] Facility:[facility] Start: 05-21-2024 End: 05-21-[facility] Start: 05-16-2024 End: 05-16-2024 ambulatory [facility] Facility:[facility] Start: 04-18-2024 ambulatory Gerda Gudla OLS Facili ty:[facility] Start: 03-07-2024 End: 03-07-2024 ambulatory ENEDINA REGOTTI Neurology Comment on above: EMG Start: 03-07-2024 End: 03-07-2024 Patient encounter procedure Emg 1 Neur Nick Mc (Max Weight: 850) Neurology Start: 12-03-2023 Telephone encounter Katina Lake MD Work Phone: Neurology Comment on above: Blood Thinner Instru ctions for EMG Testing Start: 11-29-2023 End: 11-29-2023 ambulatory ENEDINA REGOTTI Facility:[facility] Start: 11-29-2023 End: 11-29-2023 Patient encounter procedure Enedina Canchola PA-C Work Phone: Orthopaedics Comment on above: Carpal tunnel syndro me of right wrist (Primary Dx); Disturbance of skin sensation Start: 11-02-2023 End: 11-02-2023 ambulatory [facility] Work Phone: Start: 11-02-2023 End: 11-02-2023 Departed Referred [facility] Start: 11-01-2023 End: 11-01-2023 ambulatory [facility] Work Phone: Start: 11-01-2023 End: 11-01-2023 Departed Referred [facility] Start: 11-01-2023 Registered Referred [facility] Start: 10-15-2023 End: 10-15-2023 ambulatory [facility] Work Phone: Start: 10-15-2023 End: 10-15-2023 Departed Referred [facility] Start: 10-05-2023 End: 10-05-2023 Departed Referred [facility] Start: 09-07-2023 End: 09-07-2023 ambulatory [facility] Work Phone: Start: 09-07-2023 End: 09-07-2023 Departed Referred [facility] Start: 09-07-2023 Registered Referred [facility] Start: 09-06-2023 End: 09-06-2023 ambulatory [facility] Work Phone: Start: 09-06-2023 End: 09-06-2023 Patient encounter procedure [facility] Work Phone: Start: 08-08-2023 End: 08-08-2023 ambulatory [facility] Work Phone: Start: 08-08-2023 End: 08-08-2023 Departed Referred [facility] Start: 07-23-2023 End: 07-23-2023 ambulatory ENEDINA REGOTTI Facility:[facility] Start: 07-23-2023 End: 07-23-2023 Subsequent hospital visit by physician [employer] Work Phone: Radiology Comment on above: Pain [R52] Start: 07-12-2023 End: 07-12-2023 ambulatory [facility] Work Phone: Start: 07-12-2023 End: 07-12-2023 Departed Referred [facility] Start: 07-12-2023 Registered Referred [facility] Start: 07-05-2023 End: 07-05-2023 ambulatory [facility] Work Phone: Start: 07-05-2023 End: 07-05-2023 Departed Referred [facility] Start: 06-26-2023 Orders Only Enedina Franklin perry PA-C Work Phone: [facility] [place] Comment on above: Pain (Primary Dx) Start: 06-14-2023 End: 06-14-2023 ambulatory [facility] Work Phone: Start: 06-14-2023 End: 06-14-2023 Departed Referred [facility] Start: 05-17-2023 End: 05-17-2023 Departed Referred [facility] Start: 05-17-2023 Registered Referred [facility] Start: 04-19-2023 End: 04-19-2023 ambulatory [facility] Work Phone: Start: 04-19-2023 End: 04-19-2023 Departed Referred [facility] Start: 04-19-2023 Registered Referred [facility] Start: 03-22-2023 End: 03-22-2023 ambulatory [facility] Work Phone: Start: 03-22-2023 End: 03-22-2023 Departed Referred [facility] Start: 02-22-2023 Registered Referred [facility] Start: 01-25-2023 End: 01-25-2023 ambulatory [facility] Work Phone: Start: 01-25-2023 End: 01-25-2023 Departed Referred [facility] Start: 01-01-2023 End: 01-01-2023 ambulatory [facility] Work Phone: Start: 01-01-2023 End: 01-01-2023 Patient encounter procedure [facility] Start: 12-28-2022 End: 12-28-2022 Departed Referred [facility] Start: 12-28-2022 Registered Referred [facility] Start: 11-30-2022 End: 11-30-[address] Gerda Wilks [facility] Work Phone: Start: 11-30-2022 End: 11-30-[address] Gerda Wilks [facility] Start: 10-30-2022 End: 10-30-[address] [facility] Start: 10-30-2022 End: 10-30-[address] Gerda Wilks [facility] Start: 10-30-[address] Gerda Wilks [facility] Start: 10-30-2022 Dr. Gerda Wilks [facility] Start: 10-17-2022 End: 10-17-[address] Gerda Wilks [facility] Work Phone: Start: 10-17-2022 End: 10-17-[address] Gerda Wilks [facility] Start: 10-17-[address] Gerda Wilks [facility] Start: 10-17-2022 Dr. Gerda Wilks [facility] Start: 10-10-2022 End: 10-10-[address] Gerda Wilks [facility] Work Phone: Start: 10-10-2022 End: 10-10-[address] Gerda Wilks [facility] Start: 10-10-2022 Dr. Gerda Wilks [facility] Start: 10-04-2022 End: 10-04-[address] Gerda Wilks [facility] Work Phone: Start: 10-04-2022 End: 10-04-[address] Gerda Wilks [facility] Start: 10-04-2022 End: 10-04-2022 Dr. Gerda Wilks [facility] Start: 10-03-2022 End: 10-03-[address] Gerda Wilks [facility] Work Phone: Start: 10-03-2022 End: 10-03-[address] Gerda Wilks [facility] Start: 10-03-2022 End: 10-03-2022 Dr. Gerda Wilks [facility] Start: 09-26-2022 End: 09-26-[address] Gerda Wilks [facility] Work Phone: Start: 09-26-2022 End: 09-26-[address] Gerda Wilks [facility] Start: 09-26-2022 End: 09-26-2022 Dr. Gerda Wilks [facility] Start: 09-19-2022 End: 09-19-[address] Gerda Wilks [facility] Start: 09-19-2022 End: 09-19-2022 Dr. Gerda Wilks [facility] Start: 09-12-2022 End: 09-12-[address] [facility] Start: 09-12-2022 End: 09-12-[address] Gerda Wilks [facility] Start: 09-12-2022 End: [facility] Start: 09-05-2022 End: 09-05-[address] [facility] Work [facility]: Start: 09-05-2022 End: 09-05-[address] Gerda Wilks [facility] Start: 09-05-[address] [facility] Start: 09-05-2022 End: 09-05-2022 Dr. Gerda Wilks [facility] Start: 08-29-2022 End: 08-29-[address] [facility]: Start: 08-29-2022 End: 08-29-[address] Gerda Wilks [facility] Start: 08-29-[address] [facility] Start: 08-29-2022 End: 08-29-2022 Dr. Gerda Wilks [facility] Start: 08-23-2022 Non-patient / Non-visit Dr. Gerda gentile [facility] Start: 08-23-2022 End: 08-23-2022 Admission to same day surgery center Dr. Gerda Wilks [facility]-Endoscopy Start: 08-23-2022 End: 08-23-[address] [facility] Work [facility]: Start: 08-23-2022 End: 08-23-2022 Dr. Gerda Wilks [facility]-Endoscopy Start: 08-22-2022 End: 08-22-[address] [facility]: Start: 08-22-2022 End: 08-22-[address] [facility] Start: 08-22-[address] [facility] Start: 08-22-2022 End: 08-22-2022 Dr. Gerda Wilks [facility] Start: 08-15-2022 End: 08-15-[address] Gerda Wilks [facility] Start: 08-15-[address] Gerda Wilks [facility] Start: 08-15-2022 End: 08-15-2022 Dr. Gerda Wilks [facility] Start: 08-08-2022 End: 08-08-[address] [facility] Start: 08-08-2022 End: 08-08-[address] [facility] Start: 08-08-[address] [facility]: 08-08-2022 End: 08-08-2022 Dr. Gerda Wilks [facility] Start: 08-01-2022 End: 08-01-[address] Gerda Wilks [facility] Start: 08-01-[address] [facility] Start: 08-01-2022 End: 08-01-2022 Dr. Gerda Wilks [facility] Start: 07-25-2022 End: 07-25-[address] [facility] Start: 07-25-2022 End: 07-25-[address] [facility] Start: 07-25-[address] [facility] Start: 07-25-2022 End: 07-25-2022 Dr. Gerda Wilks [facility] Start: 07-24-2022 End: 07-24-[address] [facility] Start: 07-24-2022 End: 07-24-2022 Dr. Gerad Wilks [facility] Start: 07-18-2022 End: 07-18-[address] Gerda Wilks [facility] Work Phone: Start: 07-18-2022 End: 07-18-[address] Gerda Wilks [facility] Start: 07-18-[address] [facility] Start: 07-18-2022 End: 07-18-20[facility] Start: 07-11-2022 End: 07-11-[address] [facility] Start: 07-11-2022 End: 07-11-[address] Gerda Wilks [facility] Start: 07-11-2022 End: 07-11-2022 Dr. Gerda Wilks [facility] Start: 07-10-2022 Non-patient / Non-visit Dr. Gerda Jenkins [facility] Start: 07-10-2022 Dr. Gerda Wilks [facility] Start: 07-09-2022 Non-patient / Non-visit Dr. Gerda Jenkins [facility] Start: 07-09-2022 Dr. Gerda Wilks [facility] Start: 07-09-2022 Non-patient / Non-visit Dr. Gerda Jenkins [facility] Start: 07-09-2022 Dr. Gerda Wilks [facility] Start: 07-08-2022 Non-patient / Non-visit Dr. Gerda Jenkins [facility] Start: 07-08-2022 End: 07-10-2022 Evaluation and management of inpatient Dr. Gerda Wilks [facility]-Progressive Care Unit Start: 07-08-2022 End: 07-10-[address] [facility] Start: 07-08-2022 End: 07-10-2022 Dr. Gerda Wilks [facility] Start: 07-03-2022 End: 07-03-[address] Gerda Wilks [facility] Start: 07-03-[address] [facility] Start: 07-03-2022 End: 07-03-2022 Dr. Gerda Wilks [facility] Start: 06-28-2022 End: 06-29-2022 Emergency department [facility] Start: 06-28-2022 End: 06-29-2022 Dr. Gerda Wilks [facility]-Emergency Department Start: 06-26-[address] Gerda Wilks [facility] Start: 06-26-2022 Dr. Gerda Wilks [facility] Start: 06-21-[address] Gerda Wilks [facility] Start: 06-21-2022 Dr. Gerda Wilks [facility] Start: 06-20-[address] Gerda Wilks [facility] Start: 06-20-2022 Dr. Gerda Wilks [facility] Start: 06-13-2022 End: 06-13-[address] Gerda Wilks [facility] Work Phone: Start: 06-13-2022 End: 06-13-[address] Gerda Wilks [place] [id number] Start: 06-13-[address] [place] [id number] Start: 06-13-2022 End: 06-13-2022 Dr. Gerda Wilks [place] [id number] Start: 06-06-2022 End: 06-06-[address] [facility]: Start: 06-06-2022 End: 06-06-[address] Gerda Wilks [place] [id number] Start: 06-06-2022 End: 06-06-2022 [place] [id number] Start: 06-04-2022 End: 06-04-[address] [place] [id number] Start: 06-04-[address] Gerda Wilks [facility] Start: 06-04-2022 End: 06-04-2022 Dr. Gerda Wilks [place] [id number] Start: 05-30-[address] Gerda Wilks [place] [id number] Start: 05-30-2022 Dr. Gerda Wilks [place] [id number] Start: 05-23-[address] Gerda Wilks [facility] Start: 05-23-2022 Dr. Gerda Wilks [place] [id number] Start: 05-18-[address] [place] [id number] Start: 05-16-[address] [place] [id number] Start: 05-15-2022 Non-patient / Non-visit Dr. Gerda Jenkins [facility] Start: 05-14-2022 Non-patient / Non-visit Dr. Gerda Jenkins [facility] Start: 05-13-2022 Non-patient / Non-visit Dr. Gerda Jenkins [facility] Start: 05-13-2022 End: 05-15-2022 Evaluation and management of inpatient Dr. Gerda Wilks [facility]-Medical Surgical 3 Start: 05-13-2022 End: 05-15-[address] [facility] Work [facility]: Start: 04-06-2022 End: 04-06-2022 Patient encounter procedure [facility] Start: 04-03-2022 End: 04-03-2022 Departed Referred [facility] Start: 2022 End: 2022 Emergency department patient visit [facility]Emergency Department Start: 02-06-2022 End: 02-06-2022 Departed Referred [facility] Start: 02-06-2022 Registered Referred [facility] Start: 01-02-2022 End: 01-02-2022 Departed Referred [facility] Start: 12-15-2021 End: 12-15-2021 Patient encounter procedure [facility]-Outpatient Breast Imaging Start: 09-26-2021 End: 09-26-2021 Emergency department patient visit [facility]Emergency Department Start: 09-26-2021 Registered Referred [facility] Start: 12-05-2018 [facility] Start: 06-10-2018 [facility] procedure [facility] Start: 02-04-2018 Patient encounter procedure UNKNOWN PROVIDER [facility] Procedures Date Procedure Procedure Detail Performing Clinician Start: 03-12-2025 Screening mammography Karla Wilks MD Start: 02-09-2025 MRI of brain without contrast [...] CT cervical spine wi thout contrast Start: 12-28-[address] Gerda Wilks Start: 06-29-2022 CT [...] DTaP,Tdap,Td Vaccine (2 - Td or Tdap) [facility] Start: 02-09-2025 Referral to service [facility] Start: 02-09-2025 Patient discharge [facility] Start: 02-08-2025 Application of intermittent pneumatic compression device [facility] Start: 02-07-2025 Following clinical pathway protocol [facility] Start: 02-07-2025 Ambulation without limitation [facility] Start: 02-07-2025 Aspiration precautions [facility] Start: 02-07-2025 Assessment of risk o f venous thromboembolism [facility] Start: 02-07-2025 Cardiac monitoring [facility] Start: 02-07-2025 Catheterization of vein [facility] Start: 02-07-2025 Consultation [facility] Start: 02-07-2025 Elevation of head of bed [facility] Start: 02-07-2025 Exercises [facility] Start: 02-07-2025 Insertion of cathete r into peripheral vein [facility] Start: 02-07-2025 Measuring intake and output [facility] Start: 02-07-2025 Notification of physician [facility] Start: 02-07-2025 Oxygen therapy [facility] Start: 02-07-2025 Patient referral to dietitian [facility] Start: 02-07-2025 Providing care accor ding to standard [facility] Start: 02-07-2025 Referral to occupati onal therapist [facility] Start: 02-07-2025 Referral to service [facility] Start: 02-07-2025 Speech therapy assessment [facility] Start: 02-07-2025 Telemedicine consult ation with patient [facility] Start: 02-07-2025 Tobacco use cessatio n education [facility] Start: 02-07-2025 End: 02-07-2025 [facility] Start: 02-07-2025 Vital signs measurements [facility] Start: 02-07-2025 Admission procedure [facility] Start: 02-07-2025 Hospital admission, emergency, from emergency room, medical nature [facility] Start: 02-07-2025 [facility] Start: 02-07-2025 Oxygen therapy [facility] Start: 02-07-2025 [facility] Start: 04-27-2024 Covid-19 Vaccine ( season) Covid-19 Vaccine ( season) [facility] Start: 04-27-2024 Influenza vaccination [facility] Start: 01-12-2024 Covid-19 Vaccine ( season) Covid-19 Vaccine ( season) [facility] Start: 08-27-2023 Advance Directive Discussion Advance Directive Discussion [facility] Start: 08-27-2023 Behavioral Health Screening Behavioral Health Screening [facility] Start: 04-27-2023 Influenza vaccination Influenza Vacc ine (#1) [facility] Start: 03-30-2023 Diabetes Screening Diabetes Screenin g [facility] Start: 08-27-2022 Advance Directive Discussion Advance Directive Discussion [facility] Start: 08-27-2022 Depression Assessment Depression Ass essment [facility] Start: 08-23-2022 Colsc flx w/rmvl of tumor polyp lesion snare tq [facility] Start: 08-23-2022 Patient discharge [facility] Start: 07-10-2022 Patient discharge [facility] Start: 07-10-2022 Referral to occupati onal therapist [facility] Start: 07-10-2022 Referral to service [facility] [facility] Start: 07-08-2022 Following clinical pathway protocol [facility] Start: 07-08-2022 Referral to general surgeon [facility] Start: 07-08-2022 Following clinical pathway protocol [facility] Start: 07-08-2022 Assessment of risk o f venous thromboembolism [facility] Start: 07-08-2022 Catheterization of vein [facility] Start: 07-08-2022 Insertion of cathete r into peripheral vein [facility] Start: 07-08-2022 Measuring intake and output [facility] Start: 07-08-2022 Providing care accor ding to standard [facility] Start: 07-08-2022 Provision of activit y privileges [facility] Start: 07-08-2022 [facility] Start: 07-08-2022 Admission procedure [facility] Start: 07-08-2022 [facility] Work Phone: Start: 07-08-2022 Patient referral to dietitian [facility] Start: 06-28-2022 Smpl repair scalp/neck/ax/genit/trunk 2.6-7.5cm [facility] Start: 05-15-2022 Patient discharge [facility] Work Phone: Start: 05-14-2022 Following clinical pathway protocol [facility] Work Phone: Start: 05-13-2022 Assessment of risk o f venous thromboembolism [facility] Work Phone: Start: 05-13-2022 Catheterization of vein [facility] Work Phone: Start: 05-13-2022 Insertion of cathete r into peripheral vein [facility] Work Phone: Start: 05-13-2022 Providing care accor ding to standard [facility] Work Phone: Start: 05-13-2022 Provision of activit y privileges [facility] Work Phone: Start: 05-13-2022 Referral to occupati onal therapist [facility] Work Phone: Start: 05-13-2022 Referral to floorwalker [facility] Work Phone: Start: 05-13-2022 Referral to service [facility] Work Phone: Start: 05-13-2022 [facility] Work Phone: Start: 05-13-2022 Verification routine [facility] Work Phone: Start: 05-13-2022 Admission procedure [facility] Work Phone: Start: 05-13-2022 Therapeutic injectio n iv push each new drug TX/PRO/DX INJ NEW DRUG ADDON [facility] Work Phone: Start: 05-13-2022 [facility] Work Phone: Start: 02-19-2012 Bone Density Screening Bone Density Screening [facility] Start: 02-19-2012 Pneumococcal Vaccine : 65+ (1 - PCV) Pneumococcal Vaccine: 65+ (1 - PCV) [facility] Start: 02-19-2012 Screening for osteoporosis Bone Density Screening [facility] Start: 2007 RSV Vaccine (1 - 1-d ose 60+ series) RSV Vaccine (1 - 1-dose 60+ series) [facility] Start: 1997 Shingrix Vaccine (1 of 2) Anaya grix Vaccine (1 of 2) [facility] Start: 02-19-1992 Diabetes Screening Diabetes Screenin g [facility] Start: 1966 Urine microalbumin profile DTaP,Tdap,Td Vaccine (1 - Tdap) [facility] Start: 1965 Anxiety Screening Anxiety Screening [facility] Start: 1965 Depression Screening Depression Scre ening [facility] Start: 1965 Hepatitis C Screening Hepatitis C [facility] Start: 1965 Hepatitis C screening Hepatitis C [facility] Start: 1947 Covid-19 Vaccine (#1) Covid-19 Vacci ne (#1) [facility] Bilirubin measuremen t, urine [facility] Work Phone: End: 11-28-2024 EMG(NEURO/NI) EMG(NEURO/NI) EMG Routine Carpal tunnel syndrome of right wrist Disturbance of skin sensation 1 Occurrences starting 11/29/2023 until 11/28/2024 [facility] Work Phone: Comment on above: 1 Occurrences starti ng 11/29/2023 until 11/28/2024 Hematocrit [Volume Fraction] of Blood [facility] Work Phone: Hemoglobin [Mass/vol ume] in Blood [facility] Work Phone: Hemoglobin [Presence ] in Urine [facility] Work Phone: Leukocytes [#/volume ] in Blood [facility] Work Phone: Mean corpuscular hemoglobin concentration determination [facility] Work Phone: Mean corpuscular hemoglobin determination [facility] Work Phone: Measurement of keton es in urine using dipstick [facility] Work Phone: Microscopic urinalysis [facility] Work Phone: Neutrophil count [facility] Work Phone: Neutrophil percent differential count [facility] Work Phone: Patient Education [facility] Work Phone: Patient referral [facility] Work Phone: pH of Urine [facility] Work Phone: Platelets [#/volume] in Blood [facility] Work Phone: Red blood cell count [facility] Work Phone: Red cell distributio n width determination [facility] Work Phone: Specific gravity of Urine [facility] Work Phone: Troponin T.cardiac [Mass/volume] in Serum or Plasma by High sensitivity method [facility] Urinalysis, blood, qualitative [facility] Work Phone: Urine dipstick for glucose [facility] Work Phone: Urine dipstick for leukocyte esterase [facility] Work Phone: Urine dipstick for nitrite [facility] Work Phone: Urine dipstick for protein [facility] Work Phone: Urine examination [facility] Work Phone: Urine microscopy: epithelial cells [facility] Work Phone: Urine Microscopy: wh ite cells [facility] Work Phone: Urobilinogen [Presen ce] in Urine [facility] Work Phone: End: 07-25-2024 XR WRIST GENERAL 3V PA/LAT/OBL RIGHT XR WRIST GENERAL 3V PA/LAT/OBL RIGHT Radiology Routine Pain 1 Occurrences starting 06/26/2023 until 07/25/2024 [facility] Work Phone: Comment on above: 1 Occurrences starti ng 06/26/2023 until 07/25/2024 Zinc [Mass/volume] i n Serum or Plasma [facility] Immunizations Immunization Date Immunization Notes Care Provider Varsha burnham 07-09-2022 influenza, injectabl e, quadrivalent, preservative free [facility] 07-09-2022 influenza, seasonal, injectable Dr. Gerda Wilks [facility] 07-09-2022 influenza virus vaccine, unspecified formulation Enedina Canchola PA-C Work Phone: [facility] Payers Date Payer Category Payer Unknown [id number] 2024 Medicaid [id number] 2024 Self-pay [id number] 2023 Medicaid [facility] MEDICAID MYC ARE [facility] MEDICAID [id number] 2023-Present [phone] [address] [place] [address] Medicaid [id number] 2023 Medicare [facility] MEDICARE [facility] MEDICARE ADVANTAGE PPO [id number] 2023-Present [phone] [address] [address] [place] [address] PPO [id number] 2023 Unknown [id number] 2023 Unknown [id number] 1945 Unknown [id number] [id number]. 668 1945 Unknown [id number] 2.840.1.049647.3.579.2. 668 1945 Unknown [id number] 2.16840.1.431317.3.579.2. 668 Medicare [id number] Medicare [id number] Private Health Insurance [id number] Unknown Unknown [id number] Unknown [id number] 2.16840.1.357117.3.579.2. 462 Unknown [id number] 2.16840.1.676422.3.579.2. 462 Unknown [id number] 2.16840.1.035487.3.579.2. 462 Unknown [id number] 2.16840.1.151777.3.579.2. 462 Unknown [id number] 2.16.840.1.737221.3.579.2. 462 Unknown [id number] 2.16.840.1.206562.3.579.2. 462 Unknown [id number] 2.16.840.1.471833.3.579.2. 462 Unknown [id number] 2.16.840.1.353207.3.579.2. 462 Unknown [id number] 2.16.840.1.235267.3.579.2. 462 Unknown [id number] 2.16.840.1.688991.3.579.2. 462 Unknown [id number] 2.16.840.1.127562.3.579.2. 462 Unknown [id number] 2.16.840.1.055088.3.579.2. 462 Unknown [id number] 2.16840.1.005366.3.579.2. 462 Unknown [id number] 2.840.1.061049.3.579.2. 462 Social History Date Type Detail Facility Start: 09-26-2021 End: 08-22-2022 Tobacco smoking status WIIS Unknown if ever smoked [facility] Start: 1945 Sex Assigned At Female [facility] Start: 1945 Sex Assigned At Not on file [facility] Start: 07-23-2023 End: 11-29-2023 Gender identity Not on file [facility] Start: 07-23-2023 End: 02-09-2025 Tobacco smoking status NHIS Never smoked tobacco [facility] Start: 07-23-2023 Tobacco use and exposure Former smokeless tobacco user [facility] Start: 07-23-2023 End: 11-29-2023 History of Social function [facility] National Score (1-100), lower number is lower risk 93 [facility] Start: 02-07-2025 Tobacco smoking status NHIS Ex-smoker (finding) [facility] Start: 02-09-2025 Tobacco Use Tobacco Use [facility] NEGATED: Highlighted row [facility] Goals Date Patient Goal Desired Activity /State Functional Status Date Assessment Result Facility 02-09-2025 Functional status Ambulates [facility] Work Phone: 07-10-2022 Functional status Bedpan [facility] Work Phone: 05-15-2022 Functional status Bedrest [facility] Work Phone: Mental Status Date Assessment Result Facility 02-09-2025 Cognitive function Level Of Cons ciousness Awake;Alert;Appropriate;Follow s Commands [facility] Work Phone: 02-09-2025 Cognitive function Voice/Name [facility] Work Phone: 02-07-2025 Cognitive function Voice/Name [facility] Work Phone: 08-23-2022 Cognitive function Voice/Name [facility] Work Phone: 07-10-2022 Cognitive function Voice/Name [facility] Work Phone: 05-15-2022 Cognitive function Voice/Name;Touch/Shaki ng [facility] Work Phone: 05-15-2022 Cognitive function Comprehension Ability Demonstrates ability to follow instructions/comprehend [facility] Work Phone: Clinical Notes 07-23-2023 to 02-09-2025 Note Date & Type Note Facility 02-09-2025 Discharge summary [facility] 02-09-2025 Note [facility] Medical Records Department [address] [place] [address] Discharge Summary 02/09/25 1257 MR#: [id number] Acct: [id number] Name: KAMILAH MCKEON Rep #: [id number] : 1945 79 From: Jaciel Olivier MD PCP: Gerda Wilks MD Status:ADM BALBINA Location: [place] [address] Providers Date of Admission: 02/07/25 Primary Care Physician: Dr. Gerda Wilks MD Consultations 06/14/25 13:03 Consult: Tele-Neurology Routine Consulting Provider: [facility] [...] were continued whe (more content not included)... [facility] 02-09-2025 Discharge summary Note Date/Time February 09, 2025 10:22am [facility] Medical Records Department [address] [place] [address] Instructions for Home/Discharge Instructions 02/09/25 1020 MR#: [id number] Acct: [id number] Name: KAMILAH MCKEON Rep #:[id number] : 1945 79 From: Jaciel singleton MD [...] Attending Provider: Jaciel Olivier Primary Care Provider: Gerad Wilks Consulting Providers: Anatoly Whalen; Abdiel Eugene; [...] Hartman DO; Geovani Gregg MD ~ Signed [facility] Work Phone: 1(263) 779-584406-16-2025 Discharge summary [facility] Medical Records Department [address] [place] [address] Instructions for Home/Discharge Instructions 02/09/25 1020 MR#: [id number] Acct: [id number] Name: KAMILAH MCKEON Rep #:[id number] : 1945 79 From: Jaciel singleton MD [...] Nevaeh Hartman DO; Geovani Gregg MD ~ [facility]06-15-2025 Progress note Author Yash [facility] Note Date/Time February 08, 2025 1:09 pm [facility] Medical Records Department [address] [place] [address] Progress Note - Neurology 02/08/25 1258 MR#: [id number] Acct: [id number] Name: KAMILAH MCKEON Rep #:[id number] : 1945 79 From: Yash Acosta PCP: Gerda Wilks MD Status:ADM BALBINA Location: [address] 1 Assessment and Plan: Neuro Assessment/Plan 79 yo [...] eliquis and statin. Follow up MRI brain. 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 Control of vascular risk factors. I personally [...] Neut % (Auto) 54.5, Lymph % (Auto) 29.1,Stark % (Auto) 9.4, Eos % (Auto) 5.3 [...] and with change in RN caregiver. Freq: [id number] Protocol: Activity Type Activity Date Activity User E-sign Co-sign Detail Recorded Client Recorded Date Recorded By Document 02/08/25 12:12 WILLIE [id number] 02/08/25 12:20 DS 02/08/25 12:12 NIH Stroke [...] Cosigner Signature (if applicable): CC: ~ Signed [facility] Work Phone: 1(300) 774-199906-15-2025 Progress note Author Jaciel Olivier [facility] Note Date/Time February 08, 2025 12:4 9pm [facility] Medical Records Department [address] [place] [address] Progress Note - Hospitalist 02/08/25 1238 MR#: [id number] Acct: [id number] Name: KAMILAH MCKEON Rep #:[id number] : 1945 79 From: Jaciel singleton MD PCP: Gerda Wilks MD Status:ADM BALBINA Location: [place] [address] Subjective Subjective No issues, doing well. Objective [...] Neut % (Auto) 54.5, Lymph % (Auto) 29.1,Stark % (Auto) 9.4, Eos % (Auto) 5.3 [...] DVT: SCDs Charges/Coding Visit Charges Inpatient E&M: 46425 Subs Hosp L2 NIHSS NIHSS Nursing Documentation NIHSS Nursing Documentation: NIHSS: Ischemic Stroke/TIA Start: 02/07/25 13:03 Text: For PCU Patients: NIH and Neuro Check every 4 Status: Active hours, PRN and with change in RN caregiver. Freq: [id number] Protocol: Activity Type Activity Date Activity User E-sign Co-sign Detail Recorded Client Recorded Date Recorded By Document 02/08/25 12:12 DS [id number] 02/08/25 12:20 DS 02/08/25 12:12 NIH Stroke [...] Cosigner Signature (if applicable): CC: ~ Signed [facility] Work Phone: 1(798) 677-798706-15-2025 Progress note [facility] Medical Records Department [address] [place] [address] Progress Note - Neurology 02/08/25 1258 MR#: [id number] Acct: [id number] Name: KAMILAH MCKEON Rep #:[id number] : 1945 79 From: Yash Acosta PCP: Gerda Wilks MD Status:ADM BALBINA Location: [place] [address] Assessment and Plan: Neuro Assessment/Plan 79 yo [...] eliquis and statin. Follow up MRI brain. 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 Control of vascular risk factors. I personally [...] Neut % (Auto) 54.5, Lymph % (Auto) 29.1,Stark % (Auto) 9.4, Eos % (Auto) 5.3 [...] and with change in RN caregiver. Freq: [id number] Protocol: Activity Type Activity Date Activity User E-sign Co-sign Detail Recorded Client Recorded Date Recorded By Document 02/08/25 12:12 DS [id number] 02/08/25 12:20 DS 02/08/25 12:12 NIH Stroke [...] Cosigner Signature (if applicable): CC: ~ Signed [facility]06-15-2025 Progress note [facility] Medical Records Department [address] [place] [address] Progress Note - Hospitalist 02/08/25 1238 MR#: [id number] Acct: [id number] Name: MIKEKAMILAH L Rep #:[id number] : 1945 79 From: Jaciel singleton MD PCP: Gerda Wilks MD Status:ADM BALBINA Location: [place] [address] Subjective Subjective No issues, doing well. Objective [...] Neut % (Auto) 54.5, Lymph % (Auto) 29.1,Stark % (Auto) 9.4, Eos % (Auto) 5.3 [...] DVT: SCDs Charges/Coding Visit Charges Inpatient E&M: 64606 Subs Hosp L2 NIHSS NIHSS Nursing Documentation NIHSS Nursing Documentation: NIHSS: Ischemic Stroke/TIA Start: 02/07/25 13:03 Text: For PCU Patients: NIH and Neuro Check every 4 Status: Active hours, PRN and with change in RN caregiver. Freq: [id number] Protocol: Activity Type Activity Date Activity User E-sign Co-sign Detail Recorded Client Recorded Date Recorded By Document 02/08/25 12:12 DS [id number] 02/08/25 12:20 DS 02/08/25 12:12 NIH Stroke [...] Cosigner Signature (if applicable): CC: ~ Signed [facility]06-14-2025 History and physical note Author Jaciel Olivier [facility] Note Date/Time February 07, 2025 5:09 pm [facility] Medical Records Department [address] [place] [address] H&P Exam - Hospitalist 02/07/25 1401 MR#: [id number] Acct: [id number] Name: KAMILAH MCKEON Rep #:[id number] : 1945 79 From: Jaciel singleton MD PCP: Gerda Wilks MD Status:ADM BALBINA Location: [place] [address] HPI - General General Date of Admission: [...] the brain was also negative for hemorrhage. [facility] Medical History Injury of back Rectal bleeding [...] (Auto) 77.2 H, Lymph % (Auto) 12.9 L,Stark % (Auto) 7.2, Eos % (Auto) 1.6, [...] Clarity Clear, Urine pH 7.0, Ur Specific [place] 1.005, Urine Protein Negative, Urine Glucose (UA) [...] No acute, large territorial infarction. Reading Location: [facility] Chest X-Ray 02/07/25 09:18 IMPRESSION: No acute process. Reading Location[facility] Head/Neck CTA 02/07/25 09:18 IMPRESSION: No acute large vessel occlusion or high-grade stenosis. Dr. Sibley was notified by Edson Rodriguez at 9:50am EST on 02/07/25 Reading Location: [facility] Assessment & Plan Assessment/Plan (1) TIA [...] with colleagues Charges/Coding Visit Charges Inpatient E&M: 65718 Init Hosp L2 02/07/25 1702 <Electronically signed by Jaciel Olivier MD> Cosigner Signature (if applicable): CC: Dr. Jaciel Olivier MD; Gerda Wilks MD~ Signed [facility] Work Phone: 1(837) 924-494206-14-2025 History and physical note [facility] Medical Records Department [address] [place] [address] H&P Exam - Hospitalist 02/07/25 1401 MR#: [id number] Acct: [id number] Name: KAMILAH MCKEON Rep #:[id number] : 1945 79 From: Jaciel singleton MD PCP: Gerda Wilks MD Status:ADM BALBINA Location: [place] [id number] HPI - General General Date of Admission: [...] the brain was also negative for hemorrhage. [facility] Medical History Injury of back Rectal bleeding [...] (Auto) 77.2 H, Lymph % (Auto) 12.9 L,Stark % (Auto) 7.2, Eos % (Auto) 1.6, [...] Clarity Clear, Urine pH 7.0, Ur Specific [place] 1.005, Urine Protein Negative, Urine Glucose (UA) [...] No acute, large territorial infarction. Reading Location: [facility] Chest X-Ray 02/07/25 09:18 IMPRESSION: No acute process. Reading Location[facility] Head/Neck CTA 02/07/25 09:18 IMPRESSION: No acute large vessel occlusion or high-grade stenosis. Dr. Sibley was notified by Edson Rodriguez at 9:50am EST on 02/07/25 Reading Location: [facility] Assessment & Plan Assessment/Plan (1) TIA [...] with colleagues Charges/Coding Visit Charges Inpatient E&M: 70420 Init Hosp L2 02/07/25 5175 Cosigner Signature (if applicable): CC: Dr. Jaciel Olivier MD; Gerda Wilks MD~ Signed [facility]06-14-2025 Discharge summary Author Compa Sibley [facility] Note Date/Time February 07, 2025 11:5 5am [facility] Medical Records Department [address] [place] [address] Emergency Department Summary 02/07/25 MR#: [id number] Acct: [id number] Name: KAMILAH MCKEON Rep #:[id number] : 1945 79 From: Compa Sibley MD PCP: Gerda Wilks MD Status:REG ER Location: ED HPI History of Present Illness Chief Complaint: Stroke Alert Narrative Narrative: 79-year-old female presents from care home facility with prehospital stroke symptoms. She was last seen well at 11 PM yesterday evening, approximately 10 hours ago. She was 3 hours late for breakfast this morning. According to EMS, halfway noticed slurred speech and possible right facial droop. She also had reported expressive aphasia as well. She had complained toskilled nursing facility that she had a headache, but denied it to EMS. 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 [facility] Medical History Injury of back Rectal bleeding [...] I discussed patient with the hospitalist, Dr. Olivire who assigned the patient to observation on [...] 77.2 H Lymph % (Auto) 12.9 L Stark % (Auto) 7.2 Eos % (Auto) 1.6 [...] Clarity Clear Urine pH 7.0 Ur Specific [place] 1.005 Urine Protein Negative Urine Glucose (UA) [...] No acute, large territorial infarction. Reading Location: [facility] Chest X-Ray 02/07/25 09:18 IMPRESSION: No acute process. Reading Location[facility] Head/Neck CTA 02/07/25 09:18 IMPRESSION: No acute large vessel occlusion or high-grade stenosis. Dr. Sibley was notified by Edson Rodriguez at 9:50am EST on 02/07/25 Reading Location: [facility] Management Discussion w/another healthcare provider: Hospitalist, Fundraising Specialist (Annel Corey, Stroke Neurology) and Radiologist Discharge Plan Dx/Rx/DC Orders Clinical Impression: Dysarthria, Anticoagulated, TIA (transient ischemic attack) Disposition Disposition: Acute Care Hospital [facility] NIHSS NIHSS 1a. Level of Consciousness: 0 [...] No aphasia; normal 10. Dysarthria: 1 = Isxy-ql-cpdtoggc dysarthria; 11. Extinction and Inattention: 0 - [...] your Primary Care Provider. Call [facility] ([phone]) or report to the closest Emergency Room. Call 911 if necessary. 02/07/25 1155 <Electronically signed by Compa Sibley MD> Cosigner Signature (if applicable): CC: Gerda Wilks MD ~ Signed [facility] Work Phone: 1(590) 369-587406-14-2025 Evaluation note* Diagnosis Onset Date Resolution Status Admit Date Anticoagulated acute February 07, 2025 11:50am Dysarthria acute February 07 11:50am TIA (transient ischemic attack) acut e February 07, 2025 11:50am [facility] Work Phone: 1(118) 610-264406-14-2025 Evaluation note* Diagnosis Onset Date Resolution Status Admit Date Anticoagulated acute February 07, 2025 11:50am Dysarthria resolved February 07 11:50am TIA (transient ischemic attack) reso lved February 07, 2025 11:50am [facility] Work Phone: 1(872) 878-785506-14-2025 Discharge summary [facility] Medical Records Department [address] [place] [address] Emergency Department Summary 02/07/25 MR#: [id number] Acct: [id number] Name: KAMILAH MCKEON Rep #:[id number] : 1945 79 From: Compa Sibley MD PCP: Gerda Wilks MD Status:REG ER Location: ED HPI History of Present Illness Chief Complaint: Stroke Alert Narrative Narrative: 79-year-old female presents from care home facility with prehospital stroke symptoms. She waslast seen well at 11 PM yesterday evening, approximately 10 hours ago. She was 3 hours late for breakfast this morning. According to EMS, halfway noticed slurred speech and possible right facialdroop. She also had reported expressive aphasia as well. She had complained toskilled nursing facility that she had a headache, but denied it to EMS. 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 [facility] Medical History Injury of back Rectal bleeding [...] 77.2 H Lymph % (Auto) 12.9 L Stark % (Auto) 7.2 Eos % (Auto) 1.6 [...] Clarity Clear Urine pH 7.0 Ur Specific [place] 1.005 Urine Protein Negative Urine Glucose (UA) [...] No acute, large territorial infarction. Reading Location: [id number] Chest X-Ray 02/07/25 09:18 IMPRESSION: No acute process. [facility] Head/Neck CTA 02/07/25 09:18 IMPRESSION: No acute large vessel occlusion or high-grade stenosis. Dr. Sibley was notified by Edson Rodriguez at 9:50am EST on 02/07/25 Reading Location: [facility] Management Discussion w/another healthcare provider: Hospitalist, Fundraising Specialist (Annel Corey, Stroke Neurology) andRadiologist Discharge Plan Dx/Rx/DC Orders Clinical Impression: Dysarthria, Anticoagulated, TIA (transient ischemic attack) Disposition Disposition: Acute Care Hospital [facility] NIHSS NIHSS 1a. Level of Consciousness: 0 [...] No aphasia; normal 10. Dysarthria: 1 = Dcjo-uh-wfishqha dysarthria; 11. Extinction and Inattention: 0 - [...] problems, contact your Primary Care Provider. Call [facility] ([phone]) or report tothe closest Emergency Room. Call 911 if necessary. 02/07/25 1679 Cosigner Signature (if applicable): CC: Gerda Wilks MD ~ Signed [facility]06-14-2025 Radiology Diagnostic study note [facility] Imaging Services [address] [place], [place] [address] Chest 1 View MR#: [id number] Acct: [id number] Name: KAMILAH MCKEON Rep #: [id number] : 1945 F 79 From: Pet er Peer DO PCP: Gerda Wilks MD Status: REG ER Study:Chest 1 View Date of Exam: 5 Exam# [id number] Ordering Dr: Compa Sibley MD PROCEDURE: CHEST 1 VIEW 02/07/2025 REASON FOR EXAM: NEURO DEFICIT, ACUTE, STROKE SUSPECTED TECHNIQUE: Frontal view of the chest. COMPARISON: None FINDINGS: Hardware: None Heart: Normal size Lungs: Prominent interstitium due to AP technique Bones: No aggressive process. Other: Lung volumes are low limiting sensitivity of the exam RAD/Chest 1 View IMPRESSION: No acute process. [facility] CC: Dr. Compa Sibley MD; Gerda Wilks MD ~ Marketing Writer: Signed [facility]06-14-2025 Radiology Diagnostic study note [facility] Imaging Services [address] [place], [place] [address] STROKE Brain/Head without Cont MR#: [id number] Acct: [id number] Name: KAMILAH MCKEON Rep #: [id number] : 1945 F 79 From: Maxine Rodriguez MD PCP: Gerda Wilks MD Status: REG ER Study:STROKE Brain/Head without Cont Date of Exam: 02/07/25 Exam# [id number] Ordering Dr: Compa Sibley MD ADDENDUM by Dr. Edson Rodriguez MD on 02/07/[address] Sibley was notified by Edson Rodriguez at 9:50am EST on 02/07/25 Reading Location: [facility] 02/07/25 0958 Date cc: Dr. Compa [...] No acute, large territorial infarction. Reading Location: [facility] CC: Dr. Compa Sibley MD; Gerda Wilks MD ~ Marketing Writer: Signed [facility]06-14-2025 Radiology Diagnostic study note [facility] Imaging Services [address] [place] [address] STROKE CTA Head AND Neck W/Con MR#: [id number] Acct: [id number] Name: KAMILAH MCKEON Rep #: [id number] : 1945 F 79 From: Maxine Rodriguez MD PCP: Gerda Wilks MD Status: REG ER Study:STROKE CTA Head AND Neck W/Con Date of Exam: 02/07/25 Exam# [id number] Ordering Dr: Compa Sibley MD PROCEDURE: STROKE [...] the tip of the basilar. Both proximal LEGAL NURSE CONSULTANT segmentsare patent. There isno large vessel occlusion. [...] at 9:50am EST on 02/07/25 Reading Location: [facility] CC: Dr. Compa Sibley MD; Gerda Wilks MD ~ Marketing Writer: Signed [facility]07-12-2024 NoteHNO ID: [id number] Author: RUBIO HASSAN, DO Service: ? Author Type: Physician Type: [...] Plan of Care Visit completed when applicable. [facility] History of Present illness Narrative* Rubio Hassan [...] applicable. Rubio Hassan DO [facility]04-[facility]-2024 Miscellaneous Notes* Telephone Encounter - Laz Martínez - 12/03/2023 1:23 PM EDT Spoke to Sandra at [facility] living 12/03/23. Xarelto to be held for 24 hours prior to EMG testing withapproval from prescribing physician. Laz Perez ([facility]) documented in this encounterUc Health04-04-2024 NoteHNO ID: [id number] Author: ENEDINA CANCHOLA PA-C Service: ? Author Type: Physician Cluster Bore Operator Type: Progress Notes Filed: 11/29/2023 11:31 Note Text: Enedina Canchola PA-C Established Patient Department of Orthopaedics Orthopaedics [address] [place] [address] Dept: [phone] November 29, 2023 SUBJECTIVE: CHIEF COMPLAINT: Follow [...] and second digit. Phalen's: postive Tinel's: negative Safety Trainer strength: 5/5 IMAGING: Not indicated ASSESSMENT: G56.01 Carpal tunnel syndrome of right wrist (primary encounter diagnosis) R20.9 Disturbance of skin sensation PLAN: Given her history of spinal trauma recommendation is EMG for persistent skin disturbation. Patient agreeable with plan. Advised I will call her to go over results and arrange appropriate follow up. FOLLOW UP INSTRUCTIONS: As appropriate after EMG [facility] History of Present illness Narrative* Enedina Canchola PA-C - 11/29/2023 11:28 AM EDT Enedina Canchola PA-C Established Patient Department of Orthopaedics Orthopaedics [address] [place] [address] Dept: [phone] November 29, 2023 SUBJECTIVE: CHIEF COMPLAINT: Follow [...] and second digit. Phalen's: postive Tinel's: negative Safety Trainer strength: 5/5 IMAGING: Not indicated ASSESSMENT: G56.01 [...] EMG Enedina Canchola PA-C documented in this encounterUc Health11-27-2023 NoteHNO ID: [id number] Author: Enedina Canchola PA-C Service: ? Author Type: Physician Cluster Bore Operator Type: Progress Notes Filed: 07/24/2023 2:47 PM Note Text: Enedina Canchola PA-C Department of Orthopaedics Orthopaedics [address] [place] [address] Dept: [phone] July 23, 2023 SUBJECTIVE: CHIEF COMPLAINT: Pain [...] and 3rd digit Phalen's: postive Tinel's: negative Safety Trainer strength: 5/5 IMAGIN07/23/2023 4:08 PM - Radiology, Oru In Impression IMPRESSION: Findings as discussed in results portion of report Marketing Writer: GERMAINE Transcribe Date/Time: Jul 23 2023 4:04P Dictated by : WALTER BRODY DO This examination was interpreted and the report reviewed and electronically signed by: WALTER BRODY DO on Jul 23 2023 4:06PM EST Results-Findings * * *Final Report* * * DATE OF EXAM: Jul 23 2023 1:23PM CHRISTINE 5271 - XR WRIST 3V PA/LAT/OBL RT / PROCEDURE REASON: [id number] * * * * Physician Interpretation * [...] tunnel syndrome Informed Consent Consent Obtained: Verbal [place] Prot (more content not included)...[facility] 07-23-2023 NoteHNO ID: [id number] Author: Belkys Plata Tech Service: ? Author Type: Hand Rug Cleaner Type: Progress Notes Filed: 07/23/2023 1:35 PM [...] BY: Karissa Gill July 23, 2023 1:34 PMGalion Community [id number] History of Present illness Narrative* Belkys Plata [...] 23, 2023 1:34 PM documented in this encounterUc HealthDisk[facility] t[facility] summary Author Compa Sibley [facility] Note Date/Time February 07, 2025 11:5 5am [facility] Medical Records Department [address] [place] [address] Emergency Department Summary 02/07/25 MR#: [id number] Acct: [id number] Name: KAMILAH MCKEON Rep #:[id number] : 1945 79 From: Compa Sibley MD PCP: Gerda Wilks MD Status:REG ER Location: ED HPI History of Present Illness Chief Complaint: Stroke Alert Narrative Narrative: 79-year-old female presents from care home facility with prehospital stroke symptoms. She was last seen well at 11 PM yesterday evening, approximately 10 hours ago. She was 3 hours late for breakfast this morning. According to EMS, halfway noticed slurred speech and possible right facial droop. She also had reported expressive aphasia as well. She had complained toskilled nursing facility that she had a headache, but denied it to EMS. 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 [facility] Medical History Injury of back Rectal bleeding [...] 77.2 H Lymph % (Auto) 12.9 L Stark % (Auto) 7.2 Eos % (Auto) 1.6 [...] Clarity Clear Urine pH 7.0 Ur Specific [place] 1.005 Urine Protein Negative Urine Glucose (UA) [...] No acute, large territorial infarction. Reading Location: [id number] Chest X-Ray 02/07/25 09:18 IMPRESSION: No acute process. Reading [facility] Head/Neck CTA 02/07/25 09:18 IMPRESSION: No acute large vessel occlusion or high-grade stenosis. Dr. Sibley was notified by Edson Rodriguez at 9:50am EST on 02/07/25 Reading Location: [id number] Management Discussion w/another healthcare provider: Hospitalist, Fundraising Specialist (Annel Corey, Stroke Neurology) and Radiologist Discharge Plan Dx/Rx/DC Orders Clinical Impression: Dysarthria, Anticoagulated, TIA (transient ischemic attack) Disposition Disposition: Acute Care Hospital [facility] NIHSS NIHSS 1a. Level of Consciousness: 0 [...] No aphasia; normal 10. Dysarthria: 1 = Yhun-cr-acwvssjn dysarthria; 11. Extinction and Inattention: 0 - [...] your Primary Care Provider. Call [facility] ([phone]) or report to the closest Emergency Room. Call 911 if necessary. 02/07/25 1155 <Electronically signed by Compa Sibley MD> Cosigner Signature (if applicable): CC: Gerda Wilks MD ~ Signed [facility] Work Phone: Discharge summary Author Jaciel Olivier [facility] Note Date/Time February 09, 2025 1:00 pm [facility] Medical Records Department [address] [place] [address] Discharge Summary 02/09/25 1257 MR#: [id number] Acct: [id number] Name: KAMILAH MCKEON Rep #:[id number] : 1945 79 From: Jaciel singleton MD PCP: Gerda Wilks MD Status:ADM BAL[place] Location: [place] [address] Providers Date of Admission: 02/07/25 Primary Care [...] UNREMARKABLE BRAIN MRI WITHOUT CONTRAST. Reading Location[facility] Instructions Discharge Diet: Low fat [...] Assisted Living Charges/Coding Visit Charges Inpatient E&M: 82153 Disch Hosp >30min 02/09/25 1300 <Electronically signed by Jaciel Olivier MD> Cosigner Signature (if applicable): CC: Dr. Jaciel Olivier MD; Gerda Wilks MD~ Signed [facility] Work Phone: evaluation noteNo assessment information available [facility] Work Phone: evaluation note* Diagnosis Onset Date Resolution Status Ankle fracture, right acute Contusion of face acute Fall acute [facility] Work Phone: Evaluation note* Diagnosis Onset Date Resolution Status Acute right ankle pain acute Ankle fracture, right acute Contusion of face acute Difficulty walking acute Fall acute [facility] Work Phone: Evaluation note* Diagnosis Onset Date Resolution Status Ankle fracture, right acute Difficulty walking acute Contusion of face resolved Fall resolved [facility] Work Phone: Evaluation note* Diagnosis Onset Date Resolution Status Ankle fracture, right acute Difficulty walking acute Contusion of face resolved Fall resolved Acute lower gastrointestinal bleeding acute Anticoagulated acute Visit for suture removal acu te [facility] Work Phone: Evaluation note* Diagnosis Onset Date Resolution Status Ankle fracture, right acute Difficulty walking acute Contusion of face resolved Fall resolved Acute lower gastrointestinal bleeding acute Anticoagulated acute Constipation acute Visit for suture removal acu te [facility] Work Phone: Evaluation note* Diagnosis Onset Date Resolution Status Ankle fracture, right acute Difficulty walking acute Contusion of face resolved Fall resolved Acute lower gastrointestinal bleeding resolved Visit for suture removal res olved [facility] Work Phone: Evaluation note* Diagnosis Onset Date Resolution Status Ankle fracture, right acute Difficulty walking acute Contusion of face resolved Fall resolved Anticoagulated acute Constipation acute Acute lower gastrointestinal bleeding resolved Visit for suture removal res olved Anticoagulated acute Constipation acute Rectal bleeding acute [facility] Work Phone: Evaluation note* Diagnosis Onset Date Resolution Status Anticoagulated acute Constipation acute Acute lower gastrointestinal bleeding resolved Visit for suture removal res olved Anticoagulated acute Constipation acute Rectal bleeding acute [facility] Work Phone: Evaluation note* Diagnosis Pain- Primary Generalized pain [facility]* Diagnosis Carpal tunnel syndrome of right wrist- Primary Carpal tunnel syndrome Disturbance of skin sensation documented in this encounter [facility] note* Diagnosis Median nerve lesion, right- Primary Carpal tunnel syndrome of right wrist Carpal tunnel syndrome Disturbance of skin sensation Paresthesia of skin Disturbance of skin sensation [facility]* Diagnosis Pain Generalized pain [facility]* Diagnosis Onset Date Resolution Status Admit Date Anticoagulated acute February 07, 2025 11:50am Dysarthria acute February 07 11:50am TIA (transient ischemic attack) acut e February 07, 2025 11:50am [facility] Work Phone: Reason for referral (narrative)* Diagnostic Procedure Only (Routine) - Authorized Specialty Diagnoses / Procedures Referred By Cherise calderón Referred To Contact XR IMAGING Diagnoses Pain Procedures XR WRIST GENERAL 3V PA/LAT/OBL RIGHT RADEX WRIST COMPLETE MINIMUM 3 VIEWS Enedina Canchola PA-C [address] [place] [address] [place] [id number] Referral ID Status Reason Start Date Expiration Date Visits Requested Visits Authorized [id number] Authorized Auto-Generat ed Referral 3 07/25/2024 1 1 [facility]ative[facility] Outpatient Procedure (Routine) - Pending Review Specialty Diagnoses / Procedures Referred By Cherise calderón Referred To Contact [facility] Diagnoses Carpal tunnel syndrome of right wrist Disturbance of skin sensation Procedures EMG(NEURO/NI) NERVE CONDUCTION STUDIES 9-10 STUDIES Enedina Canchola PA-C [address] [place] [address] [facility] [place] [address] [place] [id number] Referral ID Status Reason Start Date Expiration Date Visits Requested Visits Authorized [id number] Pending Review Auto-Generat ed Referral 11/29/2023 11/28/2024 1 1 [facility] for referral (narrative)* Diagnostic Procedure Only (Routine) - Closed Specialty Diagnoses / Procedures Referred By Contac t Referred To Contact XR IMAGING Diagnoses Pain Procedures XR WRIST GENERAL 3V PA/LAT/OBL RIGHT RADEX WRIST COMPLETE MINIMUM 3 VIEWS Enedina Canchola PA-C [address] [place] [address] Xr Imaging [id number] Referral ID Status Reason Start Date Expiration Date V isits Requested Visits Authorized [id number] Closed Auto-Generate d Referral 06/26/2023 07/25/2024 1 1 [facility] for referral (narrative)No reason for referral information availableWSelect [facility] Work Phone: Reason for visit Narrative* Diagnostic Procedure Only (Routine) - Closed Specialty Diagnoses / Procedures Referred By Contac t Referred To Contact XR IMAGING Diagnoses Pain Procedures XR WRIST GENERAL 3V PA/LAT/OBL RIGHT RADEX WRIST COMPLETE MINIMUM 3 VIEWS Enedina Canchola PA-C [address] [place] [address] Xr Imaging [id number] Referral ID Status Reason Start Date Expiration Date V isits Requested Visits Authorized [id number] Closed Auto-Generate d Referral 06/26/2023 07/25/2024 1 1 [facility] Summary Purpose Family History No Family History Records Found Relationship Condition Age at Onset Recorded Date/T jose Not Specified Cardiac disease Unknown Malignant neoplasm Unknown Cerebrovascular accident (CVA) Unknown Advance Directives No Advanced Directives Records Found Advance Directive Response Recorded Date/ Time Living Will No September 26 8:30pm Power of Brass Chaser No September 26, 2021 8:30pm Advance Directive Response Recorded Date/ Time Living Will No 2022 10:24am Power of Brass Chaser No February 18 10:24am Advance Directive Response Recorded Date/ Time Name of Medical Power of Brass Chaser Elier Aguero s- brand activation manager May 13, 2022 2:34pm Living Will Yes May 13, 2022 2:34pm Power of Brass Chaser Yes April 2:34pm Advance Directive Response Recorded Date/ Time Name of Medical Power of Brass Chaser Elier Maradiagaer s May 13, 2022 6:11pm Living Will Yes May 13, 2022 6:11pm Power of Brass Chaser Yes April 6:11pm Advance Directive Response Recorded Date/ Time Name of Medical Power of Brass Chaser Elier Maradiagaer s May 13, 2022 6:11pm Name of Medical Power of Brass Chaser ELIER LANDER S June 28, 2022 11:50pm Living Will Yes June 28 11:50pm Power of Brass Chaser Yes June 28, 2022 11:50pm Advance Directive Response Recorded Date/ Time Name of Medical Power of Brass Chaser Elier Croghan s May 13, 2022 5:11pm Name of Medical Power of Brass Chaser ELIER LANDER S June 28, 2022 10:50pm Living Will Yes June 28 10:50pm Power of Brass Chaser Yes June 28, 2022 10:50pm Advance Directive Response Recorded Date/ Time Name of Medical Power of Brass Chaser Elier Croghan s May 13, 2022 5:11pm Name of Medical Power of Brass Chaser ELIER LANDER S June 28, 2022 10:50pm Name of Medical Power of Brass Chaser KAMILAH July 08, 2022 11:07am Living Will Yes July 08 11:07am Power of Brass Chaser Yes July 08, 2022 11:07am Advance Directive Response Recorded Date/ Time Name of Medical Power of Brass Chaser Elier Croghan s May 13, 2022 5:11pm Name of Medical Power of Brass Chaser ELIER LANDER S June 28, 2022 10:50pm Name of Medical Power of Brass Chaser Elier brito July 08, 2022 2:45pm Living Will Yes July 08, 2 022 2:45pm Power of Brass Chaser Yes July 08, 2022 2:45pm Advance Directive Response Recorded Date/ Time Name of Medical Power of Brass Chaser Elier brito May 13, 2022 5:11pm Name of Medical Power of Brass Chaser ELIER Brito June 28, 2022 10:50pm Name of Medical Power of Brass Chaser Elier brito July 08, 2022 2:45pm Living Will No August 22, 2 022 2:28pm Power of Brass Chaser No August 22, 2022 2:28pm Advance Directive Response Recorded Date/ Time Name of Medical Power of Brass Chaser ELIER Brito June 28, 2022 10:50pm Name of Medical Power of Brass Chaser Elier brito July 08, 2022 2:45pm Living Will No August 22, 2 022 2:28pm Power of Brass Chaser No August 22, 2022 2:28pm Advance Directive Response Recorded Date/ Time Name of Medical Power of Brass Chaser Elier brito July 08, 2022 2:45pm Living Will No August 22, 2 022 2:28pm Power of Brass Chaser No August 22, 2022 2:28pm Advance Directive Response Recorded Date/ Time Living Will No August 22, 2 022 3:28pm Power of Brass Chaser No August 22, 2022 3:28pm Advance Directive Response Recorded Date/ Time Living Will No August 22, 2 022 2:28pm Power of Brass Chaser No August 22, 2022 2:28pm Advance Directive Response Recorded Date/ Time Do you have a Healthcare Power of Brass Chaser? Yes February 07, 2025 9:38am Advance Directive Response Recorded Date/ Time Do you have a Healthcare Power of Brass Chaser? Yes February 07, 2025 1:28pm Chief Complaint and Reason for Visit Chief Complaint [facility] fall, head injury SCREENING [facility] Chief Complaint SCREENING [facility] SHOULDER Chief Complaint SCREENING [facility] WORK [facility] WORK SHOULDER [facility] WORK RIGHT SHOULDER PAIN Chief Complaint [facility] K SHOULDER [facility] RIGHT SHOULDER PAIN DEBILITY, RIGHT ANKLE FRACTURE DEBILITY, RIGHT ANKLE FRACTURE Reason for Visit Ankle fracture, righ t Contusion of face Fall Chief Complaint [facility] SHOULDER [facility] RIGHT SHOULDER PAIN DEBILITY, RIGHT ANKLE FRACTURE DEBILITY, RIGHT ANKLE FRACTURE DEBILITY, RIGHT ANKLE FRACTURE DEBILITY, RIGHT ANKLE FRACTURE Reason for Visit Acute right ankle pa in Ankle fracture, right Contusion of face Difficulty walking Fall Chief Complaint SHOULDER [facility] WORK RIGHT SHOULDER PAIN DEBILITY, RIGHT ANKLE FRACTURE DEBILITY, RIGHT ANKLE FRACTURE DEBILITY, RIGHT ANKLE FRACTURE DEBILITY, RIGHT ANKLE FRACTURE LAB WORK LAB WORK LAB WORK LAB WORK [facility] WORK Reason for Visit Ankle fracture, righ t Difficulty walking Contusion of face Fall Chief Complaint [facility] RIGHT SHOULDER PAIN DEBILITY, RIGHT ANKLE FRACTURE DEBILITY, RIGHT ANKLE FRACTURE DEBILITY, RIGHT ANKLE FRACTURE DEBILITY, RIGHT ANKLE FRACTURE LAB WORK LAB WORK LAB WORK LAB WORK [facility] LAB WORK HEAD INJURY Reason for Visit Ankle fracture, righ t Difficulty walking Contusion of face Fall Chief Complaint [facility] RIGHT SHOULDER PAIN DEBILITY, RIGHT ANKLE FRACTURE DEBILITY, RIGHT ANKLE FRACTURE DEBILITY, RIGHT ANKLE FRACTURE DEBILITY, RIGHT ANKLE FRACTURE LAB WORK LAB WORK LAB WORK LAB WORK [facility] WORK [facility] WORK LAB WORK HEAD INJURY Reason for Visit Ankle fracture, righ t Difficulty walking Contusion of face Fall Chief Complaint [facility] K RIGHT SHOULDER PAIN DEBILITY, RIGHT ANKLE FRACTURE DEBILITY, RIGHT ANKLE FRACTURE DEBILITY, RIGHT ANKLE FRACTURE DEBILITY, RIGHT ANKLE FRACTURE LAB WORK LAB WORK LAB WORK LAB WORK [facility] WORK [facility] WORK LAB WORK HEAD INJURY GI BLEED Reason for Visit Ankle fracture, righ t Difficulty walking Contusion of face Fall Acute lower gastrointestinal bleeding Anticoagulated Visit for suture removal Chief Complaint [facility] RIGHT SHOULDER PAIN DEBILITY, RIGHT ANKLE FRACTURE DEBILITY, RIGHT ANKLE FRACTURE DEBILITY, RIGHT ANKLE FRACTURE DEBILITY, RIGHT ANKLE FRACTURE LAB WORK LAB WORK LAB WORK LAB WORK [facility] WORK [facility] WORK LAB WORK HEAD INJURY GI BLEED GI BLEED GI BLEED GI BLEED GI BLEED GI BLEED Reason for Visit Ankle fracture, righ t Difficulty walking Contusion of face Fall Acute lower gastrointestinal bleeding Anticoagulated Constipation Visit for suture removal Chief Complaint [facility] RIGHT SHOULDER PAIN DEBILITY, RIGHT ANKLE FRACTURE DEBILITY, RIGHT ANKLE FRACTURE DEBILITY, RIGHT ANKLE FRACTURE DEBILITY, RIGHT ANKLE FRACTURE LAB WORK LAB WORK LAB WORK LAB WORK [facility] WORK [facility] WORK LAB WORK HEAD INJURY [facility] GI BLEED GI BLEED GI BLEED GI BLEED GI BLEED GI BLEED [facility] WORK Reason for Visit Ankle fracture, righ t Difficulty walking Contusion of face Fall Acute lower gastrointestinal bleeding Visit for suture removal Chief Complaint DEBILITY, RIGHT ANKL E FRACTURE DEBILITY, RIGHT ANKLE FRACTURE DEBILITY, RIGHT ANKLE FRACTURE DEBILITY, RIGHT ANKLE FRACTURE LAB WORK LAB WORK LAB WORK LAB WORK [facility] WORK LAB WORK HEAD INJURY [facility] GI BLEED GI BLEED GI BLEED GI BLEED GI BLEED GI BLEED [facility] WORK [facility] WORK 2 W F/U GI BLEED [facility] Reason for Visit Ankle fracture, righ t Difficulty walking Contusion of face Fall Anticoagulated Constipation Acute lower gastrointestinal bleeding Visit for suture removal Anticoagulated Constipation Rectal bleeding Chief Complaint DEBILITY, RIGHT ANKL E FRACTURE DEBILITY, RIGHT ANKLE FRACTURE DEBILITY, RIGHT ANKLE FRACTURE DEBILITY, RIGHT ANKLE FRACTURE LAB WORK LAB WORK LAB WORK LAB WORK [facility] [facility]AC[facility] LAB WORK [facility] LAB WORK LAB WORK HEAD INJURY [facility] GI BLEED GI BLEED GI BLEED GI BLEED GI BLEED GI BLEED [facility] 2 W F/U GI BLEED [facility] Reason for Visit Ankle fracture, righ t Difficulty walking Contusion of face Fall Anticoagulated Constipation Acute lower gastrointestinal bleeding Visit for suture removal Anticoagulated Constipation Rectal bleeding Chief Complaint DEBILITY, RIGHT ANKL E FRACTURE DEBILITY, RIGHT ANKLE FRACTURE DEBILITY, RIGHT ANKLE FRACTURE DEBILITY, RIGHT ANKLE FRACTURE LAB WORK LAB WORK LAB WORK LAB WORK [facility] LAB WORK LAB WORK 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 [facility] GI BLEED GI BLEED GI BLEED GI BLEED GI BLEED GI BLEED [facility] WORK 2 W F/U GI [facility]LEED [facility] WORK Reason for Visit Ankle fracture, righ t Difficulty walking Contusion of face Fall Anticoagulated Constipation Acute lower gastrointestinal bleeding Visit for suture removal Anticoagulated Constipation Rectal bleeding Chief Complaint LAB WORK LAB WORK [facility] LAB WORK LAB WORK 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 [facility] GI BLEED GI BLEED GI BLEED GI BLEED GI BLEED GI BLEED [facility] 2 W F/U GI BLEED [facility] WORK [facility] WORK Reason for Visit Anticoagulated Constipation Acute lower gastrointestinal bleeding Visit for suture removal Anticoagulated Constipation Rectal bleeding Chief Complaint LAB WORK [facility] LAB WORK LAB WORK HEAD 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 [facility] GI BLEED GI BLEED GI BLEED GI BLEED GI BLEED GI BLEED [facility] 2 W F/U GI BLEED [facility] WORK [facility] WORK Reason for Visit Anticoagulated Constipation Acute lower gastrointestinal bleeding Visit for suture removal Anticoagulated Constipation Rectal bleeding Chief Complaint [facility] LAB WORK 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 WORK 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 [facility] GI BLEED GI BLEED GI BLEED GI BLEED GI BLEED GI BLEED [facility] WORK 2 W F/U GI [facility]LEED [facility] WORK [facility] WORK Reason for Visit Anticoagulated Constipation Acute lower gastrointestinal bleeding Visit for suture removal Anticoagulated Constipation Rectal bleeding Chief Complaint [facility] LAB WORK 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 WORK HEAD 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 [facility] GI BLEED GI BLEED GI BLEED GI BLEED GI BLEED GI BLEED [facility] 2 W F/U GI BLEED [facility] WORK [facility] WORK [facility] WORK Reason for Visit Anticoagulated Constipation Acute lower gastrointestinal bleeding Visit for suture removal Anticoagulated Constipation Rectal bleeding Chief Complaint LAB WORK HEAD 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 [facility] GI BLEED GI BLEED GI BLEED GI BLEED GI BLEED GI BLEED [facility] 2 W F/U GI BLEED [facility] WORK [facility] WORK Reason for Visit Anticoagulated Constipation Acute lower gastrointestinal bleeding Visit for suture removal Anticoagulated Constipation Rectal bleeding Chief Complaint GI BLEED GI BLEED GI BLEED GI BLEED GI BLEED GI BLEED [facility] WORK 2 W F/U GI [facility]LEED [facility] WORK LABWORK Reason for Visit Anticoagulated Constipation Acute lower gastrointestinal bleeding Visit for suture removal Anticoagulated Constipation Rectal bleeding Chief Complaint [facility] WORK LABWORK [facility] WORK Chief Complaint [facility] WOR K [facility] LABWORK [facility] Chief Complaint [facility] WORK LABWORK [facility] WORK [facility] WORK [facility] CERVICAL SPINE FX[facility] SCREENING Chief Complaint [facility] WORK CERVICAL SPINE FX[facility] SCREENING [facility] Chief Complaint [facility] WOR K CERVICAL SPINE FX, SCREENING [facility] WORK [facility] WORK Chief Complaint [facility] Chief Complaint [facility] WOR K [facility] Chief Complaint [facility] WOR K [facility] Chief Complaint [facility] WOR K [facility] Chief Complaint [facility] K [facility] LABWORK Chief Complaint [facility] LABWORK SKIN Chief Complaint [facility] K [facility] LABWORK SKIN LABWORK Chief Complaint [facility] LABWORK SKIN LABWORK LABWORK LABWORK Chief [...] 8pm TIA/CVA February 09, 2025 12:5 7pm Chief Complaint Admit Date LABWORK January 30, 2025 5:00a m TIA/CVA February 07, 2025 11:5 0am TIA/CVA February 07, 2025 2:01 pm TIA/CVA February 08, 2025 12:3 8pm TIA/CVA February 09, 2025 12:5 7pm [facility] WORK February 12, 2025 5: 00am SCREENING March 12, 2025 2:45 pm Additional Source Comments INFORMATION SOURCE (unrecogn ized section and content) DATE CREATED AUTHOR 01/14/2019 [facility] DATE CREATED AUTHOR AUTHOR'S ORGANIZ ATION 07/24/2023 [facility] DATE CREATED AUTHOR AUTHOR'S ORGANIZ ATION 03/13/2024 [facility] DATE CREATED AUTHOR AUTHOR'S ORGANIZ ATION 04/02/2025 [facility] Goals (unrecognized section and content) [...] Refe rring Provider, Other Provider Active Dr. Salian Li MD Attending Provider, Other Pro vider [...] Baron MD Emergency Provider Active Dr. Mirella Isas MD Admit Provider, Other Provider Act hugo [...] Active Sta rt: February 07, 2025 Nevaeh Hartamn MD Other Provider Active Start : February [...] Other Provider Active Start: February 09, 2025 Team Status: Active Member Role/Relationship Status Dates Dr. Gerda Wilks MD Primary Care Provider Active Team Status: Active Member Role/Relationship Status Dates Dr. Gerda Wilks MD Primary Care Provider Active Start: January 30, 2025 Dr. Gerda ROJO MD Attending Provider Active Start: January 30, 2025 Team Status: Inactive Member Role/Relationship Status Dates Dr. Gerda Wilks MD Primary [...] February 09, 2025 Team Status: Active Member Role/Relationship Status Dates Dr. Gerda Wilks MD Primary [...] February 07, 2025 Team Status: Active Member Role/Relationship Status Dates Dr. Gerda Wilks MD Primary Care Provider Active Start: February 08, 2025 Compa Sibley MD Emergency Provider Active Star t: February 08, 2025 Dr. Jaciel Olivier MD Admit Provider Active Start: February 08, 2025 Dr. Jaciel Oliveir MD Attending Provider Active Start: February 08, [...] February 08, 2025 Team Status: Active Member Role/Relationship Status Dates Dr. Gerda Wilks MD Primary Care Provider Active Start: February 09, 2025 Dr. Oni Rivera MD Attending Provider Active S tart: February 09, 2025 Team Status: Active Member Role/Relationship Status Dates Dr. Gerda Wilks MD Primary [...] Other Provider Active Start: February 09, 2025 Team Status: Active Member Role/Relationship Status Dates Dr. Gerda Wilks MD Primary Care Provider Active Start: February 12, 2025 Dr. Gerda ROJO MD Attending Provider Active Start: February 12, 2025 Team Status: Inactive Member Role/Relationship Status Dates Dr. Gerda Wilks MD Primary Care Provider Active Start: March 12, 2025 End: March 12, 2025 Dr. Gerda Wilks MD Attending Provider Active Start: March 12, 2025 End: March 12, 2025 Dr. Gerda Wilks MD Referring Provider Active Start: March 12, 2025 End: March 12, 2025 Source Comments (unrecognize d section and content) In the event this informatio n is protected by the Federal Confidentiality of Alcohol and Drug Abuse Patient Records regulations: The Federal rules restrict any use of the information to criminally investigate or prosecute any alcohol or drug abuse patient.[facility] HealthIn the event this information is protected by the Federal Confidentiality of Alcohol and Drug Abuse Patient Records regulations: The Federal rules restrict any use of the information to criminally investigate or prosecute any alcohol or drug abuse patient.[facility] HealthIn the event this information is protected by the Federal Confidentiality of Alcohol and Drug Abuse Patient Records regulations: The Federal rules restrict any use of the information to criminally investigate or prosecute any alcohol or drug abuse patient.[facility] HealthIn the event this information is protected by the Federal Confidentiality of Alcohol and Drug Abuse Patient Records regulations: The Federal rules restrict any use of the information to criminally investigate or prosecute any alcohol or drug abuse patient.[facility] HealthIn the event this information is protected by the Federal Confidentiality of Alcohol and Drug Abuse Patient Records regulations: The Federal rules restrict any use of the information to criminally investigate or prosecute any alcohol or drug abuse patient.[facility] Reason for Visit (unrecogniz ed section and content) Reason Comments Follow Up Pain Numbness Reason Comments Blood Thinner Instructions for EMG Testi ng Reason Onset Date Comments EMG 03/07/2024 Specialty Diagnoses / Procedures Referred By Cherise calderón Referred To [facility] Diagnoses Carpal tunnel syndrome of right wrist Disturbance of skin sensation Procedures [facility](NEURO/NI) NERVE CONDUCTION STUDIES 9-10 STUDIES Enedina Canchola PA-C [address] [place] [address] [facility] [place] [address] [place] [address] Referral ID Status Reason Start Date Expiration Date V isits Requested Visits Authorized [id number] Closed Auto-Generate d Referral 11/29/2023 11/28/2024 1 [...] BE BASED ON THE PRIMARY CLINICAL RECORDS. [employer] provides no warranty or guarantee of the accuracy or completeness of information in this document.
[2025-05-12 08:05] LABS: Cholesterol 162 mg/dL (<=200); Low Density Lipoprotein Calc. 84 mg/dL; Triglycerides 135 mg/dL; Very Low Density Lipoprotein 27 mg/dL (5-40); cholesterol:hdl ratio screen 3.20
== END ==
LOC: OLS.SWAL 05:00
PROVIDERS: PCP Internal Medicine; Visit Provider Internal Medicine
DX: D64.9 Anemia, unspecified (principal); I10 Essential (primary) hypertension; E78.5 Hyperlipidemia, unspecified
CPT/HCPCS: 36415; 80061; 83036